=== PATIENT | female | born 1950 | race Caucasian/White ===

== ENCOUNTER → 2018-06-20 | Outpatient (CLI) | payer MEDICARE ==
--- NOTE | 2018-06-20 10:12 | Diagnostic Imaging Report ---
PROCEDURE: US Venous Lower Ext Forest. TECHNIQUE: Multiple real-time grayscale images were obtained over the lower extremities in various projections, bilaterally. Additional duplex Doppler and color Doppler images were also obtained. INDICATION: Pain and swelling FINDINGS: The common femoral, femoral, popliteal veins and tibial veins demonstrate normal response to compression, augmentation and Valsalva. There are no abnormal lower extremity fluid collections or masses. IMPRESSION: No evidence of deep venous thrombosis in either lower extremity. Dictated by: Dictated on workstation # [id number]
--- NOTE | 2018-07-16 18:08 | Diagnostic Imaging Report ---
The current study was also evaluated with a Computer Aided Detection (CAD) system. 3-D tomosynthesis was also performed and reviewed. INDICATION: Digital mammogram bilateral screening. This study was compared to the prior exams of 07/02/2017 and 06/27/2016. At this time, there are no current complaints. FINDINGS: The fibroglandular tissue in both breasts is heterogeneously dense. This does limit the sensitivity of this exam. The previous exams have noted postsurgical changes involving the left breast consistent with the patient's history of a prior lumpectomy. On this exam, the scar formation in the 12 o'clock position of the left breast and the coarse calcifications in this region seen previously are again evident and do not seem to have changed significantly. There is no evidence for recurrent malignancy in this region. There is no primary or secondary sign of malignancy noted otherwise. IMPRESSION: There is no evidence for malignancy. The postsurgical changes involving the left breast appear stable. ACR BI-RADS Category 1: Negative. Result letter will be mailed to the patient. Note: At least 10% of breast cancer is not imaged by mammography. Dictated by: Dictated on workstation # [id number]
== END ==
LOC: RAD 07:53
PROVIDERS: ATTEND Nurse Practitioner Primary Care
DX: Z12.31 Encounter for screening mammogram for malignant neoplasm of breast (principal); I83.813 Varicose veins of bilateral lower extremities with pain
CPT/HCPCS: 77067; 93970

== ENCOUNTER → 2018-07-15 | Outpatient (CLI) | payer MEDICARE ==
[~2018-07-15] MED LIST: IOHEXOL 350 MG/ML 100 ML (OMNIPAQUE 350) VIAL IV ONE; NS 250 ML (IVPB) BAG IV ONE
[2018-07-15 11:03] LABS: CALCIUM 8.6 MG/DL (8.5-10.1); CREATININE SERUM 1.11 MG/DL (0.60-1.30)
--- NOTE | 2018-07-15 12:35 | Diagnostic Imaging Report ---
PROCEDURE: CT chest and abdomen with contrast. TECHNIQUE: Multiple contiguous axial images were obtained through the chest and abdomen after the administration of intravenous contrast. INDICATION: Shortness of breath, productive cough, abdominal pain, nausea, vomiting and history of breast cancer. No prior examinations are available for comparison. FINDINGS: There is some minimal patchy left basilar atelectasis and/or pneumonitis. There is no pleural or pericardial fluid. There is no pneumothorax. There is no pathologically enlarged adenopathy in the chest. There is some displacement of the trachea to the right due to some vascular ectasia. Thoracic aorta is normal in caliber without evidence of dissection. There are no filling defects in the pulmonary arteries to suggest pulmonary embolism. There are mild degenerative changes in the spine. The liver is normal in size and without focal lesions. There is no biliary ductal dilatation. Gallbladder is unremarkable. Spleen is normal. The pancreas and adrenal glands are unremarkable. There are bilateral renal cysts. There is slightly more dense exophytic mass projecting off the lateral aspect of the left kidney. While this may be hemorrhagic cyst a solid mass cannot be excluded. The abdominal aorta is nonaneurysmal. Bowel gas pattern is nonspecific. There is no free air. There is no ascites. There are no focal inflammatory changes. IMPRESSION: Minimal left basilar atelectasis and/or pneumonitis. Slightly hyperdense mass projecting off the lateral aspect of the left kidney. This may be hemorrhagic cyst although a solid mass cannot be excluded. Further evaluation with renal ultrasound is recommended. There are additional bilateral renal cysts. No other acute abnormality in the chest or abdomen. Report was faxed/called to [facility] c/o Lola Benson by irene at 12:33 p.m. Dictated by: Dictated on workstation # [id number]
== END ==
LOC: LAB 09:58
PROVIDERS: ATTEND Nurse Practitioner Primary Care
DX: N28.1 Cyst of kidney, acquired (principal); J98.6 Disorders of diaphragm; N64.4 Mastodynia; R10.811 Right upper quadrant abdominal tenderness; R05 Cough; R11.2 Nausea with vomiting, unspecified; Z85.3 Personal history of malignant neoplasm of breast
CPT/HCPCS: 36415; 71260; 74160; 80048

== ENCOUNTER → 2018-07-21 | Outpatient (CLI) | payer MEDICARE ==
--- NOTE | 2018-07-21 17:42 | Diagnostic Imaging Report ---
PROCEDURE: US Renal Bilateral. TECHNIQUE: Multiple real-time grayscale images were obtained over the kidneys in various projections bilaterally. INDICATION: Abnormal CT of the kidneys. COMPARISON: 07/15/2018. FINDINGS: Right kidney measures 10.9 cm in length. There is anechoic cyst on the right that measures 1.9 x 1.5 x 1.4 cm. Cortical thickness and corticomedullary differentiation are maintained. There is no evidence of solid mass, calculus, nor hydronephrosis. Left kidney measures 10.2 cm in length. Benign-appearing cystic foci are also noted on the left and measure 1.4 x 1.7 x 1.8 cm and 2.4 x 1.6 cm. There is no distinct evidence of solid mass of the left kidney. There is no evidence of hydronephrosis or calculus. Note is made of thinning of the cortex suggestive of underlying atrophy. No ascites is seen. Limited views of the pelvis show [id number] urinary bladder distention. No distinct intraluminal filling defects are seen. Bilateral ureteral jets could not be demonstrated. IMPRESSION: 1. Cystic foci of the bilateral kidneys are noted and have a benign appearance on today's exam. 2. No sonographic evidence of solid mass on either side. 3. Mild cortical thinning of the left kidney. Correlation with underlying renal function tests is recommended, as findings can be seen with underlying atrophy. Dictated by: Dictated on workstation # [id number]
== END ==
LOC: RAD 16:02
PROVIDERS: ATTEND Nurse Practitioner Primary Care
DX: N28.1 Cyst of kidney, acquired (principal); N26.1 Atrophy of kidney (terminal); R93.422 Abnormal radiologic findings on diagnostic imaging of left kidney; R93.421 Abnormal radiologic findings on diagnostic imaging of right kidney
CPT/HCPCS: 76770

== ENCOUNTER → 2018-08-14 | Outpatient (CLI) | payer MEDICARE ==
--- NOTE | 2018-08-14 14:09 | Diagnostic Imaging Report ---
INDICATION: Left breast cancer. No prior studies are available for comparison. FINDINGS: Bone mineral analysis of the lumbar spine and both hips was performed. The bone mineral density of lumbar spine L2-L4 is 1.423 with a T score of 1.9. Bone mineral density of left femoral neck is 0.814 with a T score of -1.6. Bone mineral density of right femoral neck is 0.835 with a T score of -1.5. IMPRESSION: Normal bone mineral density of the lumbar spine with osteopenia of bilateral femoral necks. Dictated by: Dictated on workstation # [id number]
--- NOTE | 2018-08-14 19:59 | Diagnostic Imaging Report ---
INDICATION: Right breast pain and swelling. EXAMINATION: Sonographic interrogation of all four quadrants of the right breast as well as the retroareolar region and right axillary region was performed. FINDINGS: No sonographic abnormality is seen. No solid or cystic mass is detected. IMPRESSION: No sonographic abnormality is seen. Diagnostic mammography may be useful for further evaluation. ACR BI-RADS Category 1: Negative. Result letter will be mailed to the patient. Note: At least 10% of breast cancer is not imaged by mammography. Dictated by: Dictated on workstation # [id number]
--- NOTE | 2018-08-14 20:01 | Diagnostic Imaging Report ---
INDICATION: Right breast enlargement. Comparison is made with prior mammograms from 06/20/2018 and 07/02/2017. 2-D and 3-D unilateral right diagnostic mammography was performed with computer-aided detection (CAD) system. FINDINGS: Right breast remains heterogeneously dense, limiting the sensitivity of mammography. There are scattered benign-appearing parenchymal and vascular calcifications. No mass or malignant-appearing microcalcifications are seen. The right axilla is unremarkable. IMPRESSION: No mammographic features suspicious for malignancy are identified. Clinical follow-up is recommended. ACR BI-RADS Category 2: Benign findings. Result letter will be mailed to the patient. Note: At least 10% of breast cancer is not imaged by mammography. Dictated by: Dictated on workstation # [id number]
== END ==
LOC: RAD 08:30
PROVIDERS: ATTEND Nurse Practitioner Primary Care
DX: Z13.820 Encounter for screening for osteoporosis (principal); C50.912 Malignant neoplasm of unspecified site of left female breast; M85.89 Other specified disorders of bone density and structure, multiple sites; N62 Hypertrophy of breast
CPT/HCPCS: 76641; 77080

== ENCOUNTER 2018-08-21 12:53 | Outpatient (RCR) | payer MEDICARE ==
[2018-05-30 13:20] VITALS: BP 115/72
[2018-06-26] MEDS: CATHETER FLUSH 10 ML SYR IV PRN (11:00)
[2018-06-26] MEDS: HEParin (CENTRAL IV FLUSH) 500 UNIT/5 ML SYR IV PRN (11:00)
[2018-06-26 11:10] VITALS: BP 162/79
[2018-07-24 12:55] VITALS: BP 133/81
[~2018-08-21 12:53] MED LIST changes: +HEParin (CENTRAL IV FLUSH) 500 UNIT/5 ML SYR IV ONE; +HEParin (CENTRAL IV FLUSH) 500 UNIT/5 ML SYR ONE; -IOHEXOL 350 MG/ML 100 ML (OMNIPAQUE 350) VIAL IV ONE; -NS 250 ML (IVPB) BAG IV ONE
[2018-08-21] MEDS: HEParin (CENTRAL IV FLUSH) 500 UNIT/5 ML SYR IV PRN (13:10)
[2018-08-21] MEDS: CATHETER FLUSH 10 ML SYR IV PRN (13:10)
[2018-08-21 13:18] VITALS: BP 131/78
== END 2018-08-28 | disposition home or self-care (01) ==
LOC: SDC 12:53
PROVIDERS: ATTEND Nurse Practitioner Primary Care
DX: Z45.2 Encounter for adjustment and management of vascular access device (principal)
CPT/HCPCS: 96523

== ENCOUNTER → 2018-09-16 | Outpatient (CLI) | payer MEDICARE ==
--- NOTE | 2018-09-16 14:55 | Diagnostic Imaging Report ---
CLINICAL INDICATION: Patient has chronic thoracic spine pain. No previous thoracic spine surgeries. EXAM: MRI of the thoracic spine performed without IV contrast. Sequences include sagittal T2, sagittal T1, sagittal T2 fat-sat, and sagittal T2. COMPARISON: CT scan of the chest and abdomen with contrast dated 07/15/2018. Patient is noted to have a complicated exophytic areas involving left kidney on the prior study. FINDINGS: There is no acute thoracic spine fracture or dislocation. There is no significant bone marrow edema. There is an intraosseous hemangioma seen within the T8 vertebra. There are chronic Schmorl's nodes seen involving multiple levels of the mid and lower thoracic spine. There are degenerative spurs involving the thoracic spine and mild facet arthropathy. There is no significant bony central canal or neural foramen narrowing. There is minimal impression upon the thecal sac at the T10-T11 level due to a small posterior disc bulge and facet arthropathy. The thoracic spinal cord has normal caliber with no abnormal signal. There is no significant paraspinal soft tissue abnormality. There are multiple exophytic lesions involving both kidneys with one having low T2 signal involving the posterior upper left kidney and measures grossly 6 mm and may represent a complicated cyst. The other structures appear to represent cysts. IMPRESSION: 1: There is thoracic spine degenerative disease with no significant central canal or neural foramen narrowing. There is a small posterior disc bulge at the T10-T11 level. 2: Suspected complicated cyst involving the upper portion posteriorly involving the left kidney measuring 6 mm. Dictated by: Dictated on workstation # [id number]
== END ==
LOC: RAD 12:58
PROVIDERS: ATTEND Pain Medicine Interventional Pain Medicine
DX: M47.814 Spondylosis without myelopathy or radiculopathy, thoracic region (principal); M51.24 Other intervertebral disc displacement, thoracic region; M54.12 Radiculopathy, cervical region
CPT/HCPCS: 72146

== ENCOUNTER → 2018-11-11 | Outpatient (CLI) | payer MEDICARE ==
--- NOTE | 2018-11-11 12:29 | Diagnostic Imaging Report ---
EXAMINATION: Magnetic resonance imaging of the right shoulder without contrast. DATE: November 11, 2018. COMPARISON: None. HISTORY: 68-year-old female, right shoulder pain. TECHNIQUE: Magnetic Resonance Imaging sequences were performed of the shoulder without contrast. FINDINGS: ROTATOR CUFF, LIGAMENTS, TENDONS, AND MUSCLES: There are full-thickness full-width tears of both the supraspinatus and infraspinatus tendons with tendon retraction at least to the level of the glenoid. There is severe fatty atrophy of both the supraspinatus and infraspinatus muscles. The teres minor tendon is intact. There is severe subscapularis tendinopathy. LONG HEAD OF BICEPS: There is tendinopathy of the long head of biceps. The long head of biceps tendon is normally positioned within the bicipital groove. GLENOHUMERAL JOINT: The humeral head is superiorly subluxed. The humeral head is not anteriorly or posteriorly subluxed. The labrum is grossly intact. There is no identified paralabral cyst. The articular cartilage is grossly intact. There is no joint effusion. ACROMIOCLAVICULAR JOINT: The acromioclavicular joint is normally aligned. The coracoclavicular and coracoacromial ligaments are intact. There are no degenerative changes of the acromioclavicular joint. BONE: The bones all have normal configuration. The bone marrow signal is within normal limits. Specifically, negative for fracture, osteomyelitis, osteonecrosis, or marrow replacing process. BURSAE AND SOFT TISSUES: There is a very small amount of fluid within the subacromial/subdeltoid bursa. IMPRESSION: 1. Full-thickness full-width tears of the supraspinatus and infraspinatus tendons with tendon retraction at least to the level of the glenoid. Severe fatty atrophy of both the supraspinatus and infraspinatus muscles. Severe subscapularis tendinopathy. 2. Long head of biceps tendinopathy. 3. Intact acromioclavicular joint. 4. The humeral head is superiorly subluxed. No discretely identified labral tear. No glenohumeral joint effusion. 5. No acute fracture, bone contusion, or evidence of osteonecrosis. Dictated by: Dictated on workstation # [id number]
== END ==
LOC: RAD 09:21
PROVIDERS: ATTEND Orthopaedic Surgery Orthopaedic Surgery of the Spine
DX: S43.001A Unspecified subluxation of right shoulder joint, initial encounter (principal); M75.101 Unspecified rotator cuff tear or rupture of right shoulder, not specified as traumatic
CPT/HCPCS: 73221

== ENCOUNTER 2018-11-20 11:51 | Outpatient (RCR) | payer MEDICARE ==
[2018-10-28 12:20] LABS: BASOPHILS % (AUTO) 0 % (0-10); EOSINOPHILS # (AUTO) 0.3 10^3/uL (0.0-0.3); EOSINOPHILS % (AUTO) 3 % (0-10); HEMATOCRIT 42 % (35-52); HEMOGLOBIN 13.9 G/DL (11.5-16.0); LYMPHOCYTES % (AUTO) 22 % (12-44); MEAN CORPUSCULAR HEMOGLOBIN 30 PG (25-34); MEAN CORPUSCULAR HGB CONC 33 G/DL (32-36); MEAN CORPUSCULAR VOLUME 89 FL (80-99); MEAN PLATELET VOLUME 9.4 FL (7.4-10.4); MONOCYTES # (AUTO) 0.8 X 10^3 (0.0-1.0); MONOCYTES % (AUTO) 9 % (0-12); NEUTROPHILS % (AUTO) 66 % (42-75); PLATELET COUNT 381 10^3/uL (130-400); RED CELL DISTRIBUTION WIDTH 12.5 % (10.0-14.5); WHITE BLOOD COUNT 9.1 10^3/uL (4.3-11.0)
[2018-10-28 12:37] LABS: ALBUMIN 4.4 GM/DL (3.2-4.5); BILIRUBIN,TOTAL 0.4 MG/DL (0.1-1.0); CALCIUM 9.6 MG/DL (8.5-10.1); CREATININE SERUM 1.21 MG/DL (0.60-1.30); TOTAL PROTEIN 7.5 GM/DL (6.4-8.2)
[2018-11-27] MEDS ORDERED: PANT40TA3 PO (09:49)
[2018-11-27] MEDS ORDERED: FURO-124 PO (09:49)
[2018-11-27] MEDS ORDERED: TOPI50TA13 PO (09:49)
[2018-11-27] MEDS ORDERED: TOPI25TA10 PO (09:49)
[2018-11-27] MEDS ORDERED: LABE200T7 PO (09:49)
[2018-11-27] MEDS ORDERED: ONDN4T PO (09:49)
[2018-11-27] MEDS ORDERED: TRAM50TA2 PO (09:49)
[2018-11-27] MEDS ORDERED: GABA-488 PO (09:49)
[2018-11-27] MEDS ORDERED: ROPI0.5T2 PO ×2 (09:49)
[2018-11-27] MEDS ORDERED: CALC-867 PO (09:49)
[2018-11-27] MEDS ORDERED: ATOR80TA76 PO (09:49)
[2018-11-27] MEDS ORDERED: NF-GLIP2.5 PO (09:49)
[2018-11-27] MEDS ORDERED: BACL10TA PO (09:49)
[2018-11-27] MEDS ORDERED: AMLO10TA7 PO (09:49)
[2018-11-27] MEDS ORDERED: DULO30CA3 PO (09:49)
[2018-11-27] MEDS ORDERED: BUTA1TAB9 PO (10:11)
[2018-12-05] MEDS ORDERED: OXYC1TAB12 PO (16:46)
== END 2019-01-26 | disposition home or self-care (01) ==
LOC: LAB 11:51
PROVIDERS: ATTEND Nurse Practitioner Primary Care
DX: E11.22 Type 2 diabetes mellitus with diabetic chronic kidney disease (principal); N18.3 Chronic kidney disease, stage 3 (moderate); A08.4 Viral intestinal infection, unspecified; Z86.2 Personal history of diseases of the blood and blood-forming organs and certain disorders involving the immune mechanism
CPT/HCPCS: 36415; 80053; 83036; 85025; 87324; 87449

== ENCOUNTER → 2018-11-20 | Outpatient (CLI) | payer MEDICARE ==
[2018-11-20 12:41] LABS: MAGNESIUM 2.1 MG/DL (1.8-2.4)
== END ==
LOC: LAB 11:24
PROVIDERS: ATTEND Nurse Practitioner Primary Care
DX: G47.62 Sleep related leg cramps (principal); M25.50 Pain in unspecified joint; M19.90 Unspecified osteoarthritis, unspecified site
CPT/HCPCS: 36415; 83735; 85652; 86038; 86141; 86430

== ENCOUNTER → 2018-11-26 | Outpatient (CLI) | payer MEDICARE ==
[~2018-11-26] MED LIST changes: +AMLO10TA7 PO; +ATOR80TA76 PO; +BACL10TA PO; +BUTA1TAB9 PO; +CALC-867 PO; +DULO30CA3 PO; +FURO-124 PO; +GABA-488 PO; -HEParin (CENTRAL IV FLUSH) 500 UNIT/5 ML SYR IV ONE; -HEParin (CENTRAL IV FLUSH) 500 UNIT/5 ML SYR ONE; +LABE200T7 PO; +NF-GLIP2.5 PO; +ONDN4T PO; +PANT40TA3 PO; +ROPI0.5T2 PO; +TOPI25TA10 PO; +TOPI50TA13 PO; +TRAM50TA2 PO
--- NOTE | 2018-11-26 11:53 | Diagnostic Imaging Report ---
INDICATION: Dysphagia. Patient reports recent history of Zenker's diverticulum with surgery approximately one year ago. TECHNIQUE: The patient ingested effervescent crystals as well as thin and thick barium, and imaging of the esophagus was performed. COMPARISON: No prior imaging is available for comparison. FINDINGS: The preliminary realty loan specialist radiograph demonstrates the lungs to be clear. Right hemidiaphragm is elevated. A right chest wall port has its tip overlying the right atrium. Patient reports having some pain over the left chest. There is a questionable focus of minimal cortical interruption involving the left sixth posterior rib. There is a focal outpouching of the hypopharynx near the pharyngeal-esophageal junction that fills with contrast consistent with a Zenker's diverticulum. This appears to arise from the posterior wall. This is at the level of approximately C6-7. Moderate barium residue is seen within the diverticulum. No obstruction is identified. There is free flow of thin and thick barium into the esophagus. There are occasional tertiary contractions of the esophagus. No intrinsic or extrinsic mass is identified. No stricture is seen. No gastroesophageal reflux or hiatal hernia is demonstrated. IMPRESSION: 1. Zenker's diverticulum. 2. Mild generalized esophageal dysmotility. No esophageal mass or stricture is identified. 3. Questionable minimal cortical interruption involving left posterior sixth rib. If there is concern for rib fracture, dedicated rib radiographs would be useful for further evaluation. Dictated by: Dictated on workstation # [id number]
== END ==
LOC: RAD 09:46
PROVIDERS: ATTEND Nurse Practitioner Primary Care
DX: K22.5 Diverticulum of esophagus, acquired (principal); K22.4 Dyskinesia of esophagus; Z95.828 Presence of other vascular implants and grafts
CPT/HCPCS: 74220

== ENCOUNTER 2018-11-27 09:27 | Outpatient (CLI) | payer MEDICARE ==
[~2018-11-27] VITALS: Ht 162.6 cm; Wt 81.6 kg
[2018-11-27] MEDS ORDERED: TRAM50TA2 PO (09:49)
[2018-11-27] MEDS ORDERED: ATOR80TA76 PO (09:49)
[2018-11-27] MEDS ORDERED: TOPI50TA13 PO (09:49)
[2018-11-27] MEDS ORDERED: AMLO10TA7 PO (09:49)
[2018-11-27] MEDS ORDERED: BACL10TA PO (09:49)
[2018-11-27] MEDS ORDERED: LABE200T7 PO (09:49)
[2018-11-27] MEDS ORDERED: ROPI0.5T2 PO ×2 (09:49)
[2018-11-27] MEDS ORDERED: CALC-867 PO (09:49)
[2018-11-27] MEDS ORDERED: GABA-488 PO (09:49)
[2018-11-27] MEDS ORDERED: PANT40TA3 PO (09:49)
[2018-11-27] MEDS ORDERED: NF-GLIP2.5 PO (09:49)
[2018-11-27] MEDS ORDERED: DULO30CA3 PO (09:49)
[2018-11-27] MEDS ORDERED: TOPI25TA10 PO (09:49)
[2018-11-27] MEDS ORDERED: FURO-124 PO (09:49)
[2018-11-27] MEDS ORDERED: ONDN4T PO (09:49)
[2018-11-27] MEDS ORDERED: BUTA1TAB9 PO (10:11)
== END 2018-11-27 11:16 | disposition home or self-care (01) ==
LOC: PREOP 09:27
PROVIDERS: ATTEND Surgery
DX: Z01.818 Encounter for other preprocedural examination (principal)

== ENCOUNTER 2018-12-01 07:19 | Day surgery (SDC) | payer MEDICARE ==
[~2018-12-01] VITALS: Ht 162.6 cm; Wt 81.6 kg
[~2018-12-01 07:19] MED LIST changes: +BUP/EPI 0.5% 1:200,000 (SENSORCAINE) 30 ML VIAL ONE; +LIDOCAINE 1% INJ 20 ML 20 ML VIAL ONE
[2018-12-01] MEDS ORDERED: HEParin (CENTRAL IV FLUSH) 500 UNIT/5 ML SYR ONE (07:20)
[2018-12-01] MEDS ORDERED: 0.9% SODIUM CHLORIDE PF INJ 20 ML VIAL ONE (07:20)
--- OUTSIDE RECORDS SUMMARY | 2018-12-01 07:24 | XMS REPORT ---
Author Author BARRETT VILLANUEVA [facility] [address] Address [address] [place] [address] Care Team Providers Care Field Service Tech Name Role Phone BARRETT VILLANUEVA Unavailable PROBLEMS Type Condition ICD9-CM Code CIH95-IM Code Onset Dates Condition Status SNOMED Code Problem Lumbago with sciatica, left side M54.42 Active 105880243 Problem Type 2 diabetes mellitus with diabetic chronic kidney disease E11.22 Active 93356936 Problem Other chronic pain G89.29 Active 00243307 Problem Other specified disorders of bone density and structure, left thigh M85.852 Active 99155481 Problem Other specified disorders of bone density and structure, right thigh M85.851 Active 387179465 Problem Herpes labialis B00.1 Active 3401625 Problem Migraine with aura and without status migrainosus, not intractable G43.109 Active 0401929 Problem Chronic kidney disease, stage III (moderate) N18.3 Active 037967158 Problem Hx of iron deficiency anemia Z86.2 Active 520464863 Problem 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 Active 71486032 Problem Port-a-cath in place Z95.828 Active 084930400 ALLERGIES No Information ENCOUNTERS Encounter Location Date Diagnosis [facility] [id number] [place] [id number] Sep, Viral gastroenteritis A08.4 and Dehydration E86.0 [facility] [id number] [place] [address] 26680[address] 9423 Sep, [facility] [id number] [place] [address] 45607- 2081 Aug, [facility] [id number] [place] [address] 17600- 7693 Aug, [facility] [id number] [place] [address] 90444- 7989 Aug, Migraine with aura and without status migrainosus, not intractable G43.109 [facility] [id number] [place] [address] 60208- 6335 Aug, Viral upper respiratory tract infection J06.9 ; Lumbago with sciatica, left side M54.42 and Herpes labialis B00.1 [facility] [id number] [place] [address] 82684- 4073 Aug, [facility] [address] [address] Aug, Migraine with aura and without status migrainosus, not intractable G43.109 [facility] [id number] [place] [address] 86726- 7117 Aug, [facility] [address] [address] Jul, [facility] [id number] [place] [address] 18578- 4841 Jul, Breast pain, right N64.4 [facility] [id number] [place] [address] 80248- 4993 Jul, Pneumonitis J18.9 and Neck pain M54.2 [facility] [id number] [place] [address] 84782- 3600 Jul, [facility] [id number] [place] [address] 98955- 8472 Jul, [facility] [address] [address]- [address] Jul, Migraine with aura and without status migrainosus, not intractable G43.109 [facility] [id number] [place] [address] 66917- 5147 Jul, Breast pain, right N64.4 ; Pneumonitis J18.9 and Screening for osteoporosis Z13.820 [facility] [id number] [place] [address] 58417- 0554 Jun, [facility] [id number] [place] [address] 19138- 9052 Jun, [facility] [id number] [place] [address] 85400- 6897 Jun, [facility] [address] 44[address]- [address] Jun, [facility] [id number] [place] [address] 14317- 8099 Jun, [facility] [id number] [place] [address] 86382- 6901 Jun, Cough R05 ; Breast pain, right N64.4 ; Elevated hemidiaphragm J98.6 ; Right upper quadrant abdominal tenderness without rebound tenderness R10.811 ; Pneumonitis J18.9 and Renal cyst, left N28.1 [facility] [id number] [place] [address] 74552- 7691 Jun, Migraine with aura and without status migrainosus, not intractable G43.109 [facility] [id number] [place] [address] 33903- 4039 Jun, [facility] [id number] [place] [address] 42800- 5291 Jun, Migraine with aura and without status migrainosus, not intractable G43.109 and Lumbago with sciatica, left side M54.42 [facility] [id number] [place] [address] 70485- 6432 Jun, [facility] [id number] [place] [address] 80561- 0036 Jun, [facility] [id number] [place] [address] 43004- 5774 May, [facility] [id number] [address] May, Pain in right leg M79.604 ; Type 2 diabetes mellitus with diabetic chronic kidney disease E11.22 ; Pain of left leg M79.605 ; 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 ; Bruising T14.8XXA ; Hx of iron deficiency anemia Z86.2 ; Chronic kidney disease, stage III (moderate) N18.3 and Screening for breast cancer Z12.31 [place] [id number] [place] [address] 24217- 1805 May, Type 2 diabetes mellitus with diabetic chronic kidney disease E11.22 ; Hx of iron deficiency anemia Z86.2 ; Chronic kidney disease, stage III (moderate) N18.3 ; Lumbago with sciatica, left side M54.42 and Other chronic pain G89.29 [address] [address] May, [id number] [place] [address] 87207- 1004 Apr, Lumbago with sciatica, left side M54.42 ; Other chronic pain G89.29 and Peripheral edema R60.9 IMMUNIZATIONS No Known Immunizations SOCIAL HISTORY Never Assessed REASON FOR VISIT Vomiting/Diarrhea PLAN OF CARE VITAL SIGNS MEDICATIONS No Known Medications RESULTS No Results PROCEDURES No Known procedures INSTRUCTIONS MEDICATIONS ADMINISTERED No Known Medications MEDICAL (GENERAL) HISTORY Type Description Date Medical History diabetes Medical History htn Medical History aldo cath rt side Medical History CO Medical History hernia Medical History breast cancer Medical History cataracts Medical History esophageal varices Medical History Osteoarthritis Medical History fibromyalgia Medical History ductal carcinoma insitu Left breast 2007 Medical History DVT left arm (Picc line related) Medical History hyperlipidemia Medical History depression Medical History restless leg syndrome Medical History glaucoma Medical History Hepatitis A, age 14 Medical History hiatal hernia Surgical History back surgeries Surgical History Lt knee replacement 2011 Surgical History abdominal surgery/lacerated liver 2016 Surgical History neck surgery 11/2017 Surgical History RCA stent placed 12/2009 Surgical History Lumpectomy and radiation- ductal carcinoma insitu left breast 2007 Hospitalization History surgeries and childbirth
--- OUTSIDE RECORDS SUMMARY | 2018-12-01 07:24 | XMS REPORT ---
Author Author BARRETT VILLANUEVA [facility] Address [address] [place] [address] Care Team Providers Care Lap Polisher Name Role Phone BARRETT VILLANUEVA Unavailable PROBLEMS Type Condition ICD9-CM Code [id number] Code Onset Dates Condition Status SNOMED Code Problem Lumbago with sciatica, left side M54.42 Active 584437334 Problem Type 2 diabetes mellitus with diabetic chronic kidney disease E11.22 Active 47598534 Problem Other chronic pain G89.29 Active 50981331 Problem Other specified disorders of bone density and structure, left thigh M85.852 Active 09148890 Problem Other specified disorders of bone density and structure, right thigh M85.851 Active 470691337 Problem Herpes labialis B00.1 Active 0183347 Problem Migraine with aura and without status migrainosus, not intractable G43.109 Active 9539170 Problem Chronic kidney disease, stage III (moderate) N18.3 Active 397475738 Problem Hx of iron deficiency anemia Z86.2 Active 867303068 Problem 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 Active 44199028 Problem Port-a-cath in place Z95.828 Active 802995589 ALLERGIES No Information ENCOUNTERS Encounter Location Date Diagnosis [facility] [id number] [place] [address] 14655- 2560 Aug, Migraine with aura and without status migrainosus, not intractable G43.109 [facility] [address] [id number] [place] [address] 05838- 6144 Aug, Viral upper respiratory tract infection J06.9 ; Lumbago with sciatica, left side M54.42 and Herpes labialis B00.1 [facility] [address] [id number] [address] Aug, [facility] [address] [place] [address] 75458- 4840 Aug, Migraine with aura and without status migrainosus, not intractable G43.109 [facility] [id number] [place] [address] 66875- 2100 Aug, [facility] [id number] [place] [address] 20072- 1585 Jul, [facility] [id number] [place] [address] 49159- 5768 Jul, Breast pain, right N64.4 [facility] [address] 48433- 0341 Jul, Pneumonitis J18.9 and Neck pain M54.2 [facility] [id number] [place] [address] 72495- 0342 Jul, [facility] [id number] [place] [address] 44995- 5910 Jul, [facility] [id number] [place] [address] 04682- 1847 Jul, Migraine with aura and without status migrainosus, not intractable G43.109 [facility] [id number] [place] [address] 78679- 9153 Jul, Breast pain, right N64.4 ; Pneumonitis J18.9 and Screening for osteoporosis Z13.820 [facility] [id number] [place] [address] 37780- 3411 Jun, [facility] [id number] [place] [address] 24290- 6833 Jun, [facility] [id number] [place] [address] 66646- 1764 Jun, [facility] [id number] [place] [address] 47014- 4314 Jun, [place] [address] 71446- 1119 Jun, [place] [address] 59976- 2417 Jun, Cough R05 ; Breast pain, right N64.4 ; Elevated hemidiaphragm J98.6 ; Right upper quadrant abdominal tenderness without rebound tenderness R10.811 ; Pneumonitis J18.9 and Renal cyst, left N28.1 [place] [address] 75865- 7215 Jun, Migraine with aura and without status migrainosus, not intractable G43.109 [place] [address] 67514- 6572 Jun, [place] [address] 29704- 3084 Jun, Migraine with aura and without status migrainosus, not intractable G43.109 and Lumbago with sciatica, left side M54.42 [place] [address] 07573- 0642 12 Jun, 2018 [place] [address] 29868- 2179 04 Jun, 2018 [place] [address] 84516- 7530 May, [place] [address] 00337- 6982 27 May, 2018 Pain in right leg M79.604 ; Type 2 diabetes mellitus with diabetic chronic kidney disease E11.22 ; Pain of left leg M79.605 ; 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 ; Bruising T14.8XXA ; Hx of iron deficiency anemia Z86.2 ; Chronic kidney disease, stage III (moderate) N18.3 and Screening for breast cancer Z12.31 [place] [address] 24656- 7667 May, Type 2 diabetes mellitus with diabetic chronic kidney disease E11.22 ; Hx of iron deficiency anemia Z86.2 ; Chronic kidney disease, stage III (moderate) N18.3 ; Lumbago with sciatica, left side M54.42 and Other chronic pain G89.29 [facility] [address] [facility] [id number] [address] May, [facility] [address] [facility] [id number] [address] Apr, Lumbago with sciatica, left side M54.42 ; Other chronic pain G89.29 and Peripheral edema R60.9 IMMUNIZATIONS No Known Immunizations SOCIAL HISTORY Never Assessed REASON FOR VISIT refill PLAN OF CARE VITAL SIGNS MEDICATIONS Medication Instructions Dosage Frequency Start Date End Date Duration Status Khpcxmemxy-DRE-Vjlq-Codeine 02-355-11-30 MG Orally every 4 hrs 1 capsule as needed 4h Aug, Active Doxycycline Hyclate 100 MG Orally 2 times a day 1 capsule 12h Aug, 10 day(s) Active RESULTS No Results PROCEDURES No Known procedures INSTRUCTIONS MEDICATIONS ADMINISTERED No Known Medications MEDICAL (GENERAL) HISTORY Type Description Date Medical History diabetes Medical History htn Medical History aldo cath rt side Medical History [place] Medical History hernia Medical History breast cancer [...]
--- OUTSIDE RECORDS SUMMARY | 2018-12-01 07:24 | XMS REPORT ---
Author Author ISAAC CALDERON [facility] Address [address] [place] [address] Care Team Providers Care Agriculture Sales Account Manager Name Role Phone ISAAC CALDERON Unavailable PROBLEMS Type Condition ICD9-CM Code VAJ97-PI Code Onset Dates Condition Status SNOMED Code Problem Lumbago with sciatica, left side M54.42 Active 403321717 Problem Type 2 diabetes mellitus with diabetic chronic kidney disease E11.22 Active 38777890 Problem Other chronic pain G89.29 Active 54462499 Problem Other specified disorders of bone density and structure, left thigh M85.852 Active 92007885 Problem Other specified disorders of bone density and structure, right thigh M85.851 Active 415983789 Problem Herpes labialis B00.1 Active 3468784 Problem Migraine with aura and without status migrainosus, not intractable G43.109 Active 5044347 Problem Chronic kidney disease, stage III (moderate) N18.3 Active 434097748 Problem Hx of iron deficiency anemia Z86.2 Active 006308617 Problem 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 Active 47817322 Problem Port-a-cath in place Z95.828 Active 890946612 ALLERGIES Substance Reaction Event Type Date Status Compazine Unknown Drug Allergy Sep, Active Lexiscan foot pain Drug Allergy Sep, Active Soma rash Drug Allergy Sep, Active Plavix Unknown Drug Allergy Sep, Active Penicillin V Potassium rash Drug Allergy Sep, Active Isosorbide Mononitrate Unknown Drug Allergy Sep, Active Influenza Vac Typ A&B Surf Ant hives Drug Allergy Sep, Active Cephalexin Unknown Drug Allergy Sep, Active cephalosporins Unknown Non Drug Allergy Sep, Active toradol rash Non Drug Allergy Sep, Active ENCOUNTERS Encounter Location Date Diagnosis [facility] [address] [facility] [id number] [address] Sep, Viral gastroenteritis A08.4 and Dehydration E86.0 [facility] [address] [address]- [address]17 Sep, [facility] [address] [address]- 7284 Aug, [facility] [address] 51956- 6996 Aug, [facility] [address] 34591- 5366 Aug, Migraine with aura and without status migrainosus, not intractable G43.109 [place] [address] 02591- 9907 Aug, Viral upper respiratory tract infection J06.9 ; Lumbago with sciatica, left side M54.42 and Herpes labialis B00.1 [facility] [address] 01762- 6196 Aug, [facility] [address] 52997- 6491 Aug, Migraine with aura and without status migrainosus, not intractable G43.109 [facility] [address] 80065- 3399 Aug, [facility] [address] 16277- 2377 Jul, [facility] [address] [place] [id number] [place] [address] 84341- 8942 Jul, Breast pain, right N64.4 [facility] [address] 32556- 5816 Jul, Pneumonitis J18.9 and Neck pain M54.2 [facility] [address] 20623- 7435 Jul, [facility] [id number] [place] [address] 02028- 9094 15 Jul, 2018 [facility] [id number] [place] [address] 70655- 9678 Jul, Migraine with aura and without status migrainosus, not intractable G43.109 [facility] [id number] [place] [address] 54074- 2187 05 Jul, 2018 Breast pain, right N64.4 ; Pneumonitis J18.9 and Screening for osteoporosis Z13.820 [facility] [id number] [place] [address] 15894- 3648 Jun, [facility] [address] [place] [address] [id number] [place] [address] 22208- 6286 28 Jun, 2018 [facility] [id number] [place] [address] 60605- 9788 Jun, [facility] [address] [id number] [place] [address] 32600- 2209 Jun, [facility] [id number] [place] [address] 63391- 8763 Jun, [facility] [address] [id number] [place] [address] 12487- 9097 24 Jun, 2018 Cough R05 ; Breast pain, right N64.4 ; Elevated hemidiaphragm J98.6 ; Right upper quadrant abdominal tenderness without rebound tenderness R10.811 ; Pneumonitis J18.9 and Renal cyst, left N28.1 [facility] [id number] [place] [address] 31731- 2146 19 Jun, 2018 Migraine with aura and without status migrainosus, not intractable G43.109 [facility] [address] [id number] [place] [address] 23756- 8611 Jun, [facility] [address] [place] [address] [id number] [place] [address] 20639- 3221 Jun, Migraine with aura and without status migrainosus, not intractable G43.109 and Lumbago with sciatica, left side M54.42 [place] [address] [place] [id number] [place] [address] 19925- 8029 Jun, [place] [address] [place] [id number] [place] [address] 70960- 3230 Jun, [place] [address] [place] [id number] [place] [address] 43103- 1557 May, [place] [address] [place] [id number] [place] [address] 40682- 9822 May, Pain in right leg M79.604 ; Type 2 diabetes mellitus with diabetic chronic kidney disease E11.22 ; Pain of left leg M79.605 ; 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 ; Bruising T14.8XXA ; Hx of iron deficiency anemia Z86.2 ; Chronic kidney disease, stage III (moderate) N18.3 and Screening for breast cancer Z12.31 [place] [address] [place] [address] [id number] [place] [address] 97749- 4037 May, Type 2 diabetes mellitus with diabetic chronic kidney disease E11.22 ; Hx of iron deficiency anemia Z86.2 ; Chronic kidney disease, stage III (moderate) N18.3 ; Lumbago with sciatica, left side M54.42 and Other chronic pain G89.29 [place] [address] [place] [address] [id number] [place] [address] 09145- 4659 May, [place] [address] [place] [id number] [place] [address] 33198- 3367 Apr, Lumbago with sciatica, left side M54.42 ; Other chronic pain G89.29 and Peripheral edema R60.9 IMMUNIZATIONS Vaccine Route Administration Date Status PHENERGAN 50MG/ML OTH Other/Miscellaneous Sep 23, 2018 Administered SOCIAL HISTORY Never Assessed REASON FOR VISIT Nausea/vomiting/diarrhea since 09/18/18; light diet and fluids, but unable to keep anything in her system - SETH Lipscomb PLAN OF CARE Activity Details Follow Up prn Reason: Future/Pending Procedure IV INFUSION VITAL SIGNS Height 64 in 2018-09-23 Weight 177.4 lbs 2018-09-23 Temperature 98.3 degrees Fahrenheit 2018-09-23 Heart Rate 104 bpm 2018-09-23 Respiratory Rate 28 2018-09-23 BMI 30.45 kg/m2 2018-09-23 Blood pressure systolic 126 mmHg 2018-09-23 Blood pressure diastolic 96 mmHg 2018-09-23 MEDICATIONS Medication Instructions Dosage Frequency Start Date End Date Duration Status Venlafaxine HCl ER 75 MG Orally Once a day 1 capsule with food 24h Active GlipiZIDE 5 mg Orally Once a day 1/2 tablet 24h 90 days Active Tramadol HCl 50 mg Orally every 6 hrs 1-2 tablet 6h 28 days Active Baclofen 10 MG Orally Three times a day as needed for muscle spasms 1 tablet with food or milk Active Furosemide 40 MG Orally Once a day 1 tablet 24h Active Ondansetron HCl 4 MG Orally every 6 hr 1 tablet as needed Active ProAir HFA 108 (90 Base) MCG/ACT Inhalation every 6 hrs 2 puffs as needed 6h Jul, Active Atorvastatin Calcium 80 MG Orally Once a day at bedtime 1 tablet Active Zofran ODT 4 MG Orally every 4 hrs 1 tablet on the tongue and allow to dissolve 4h Sep, 5 days Active Folic Acid 1 MG Orally Once a day 1 tablet 24h Active Topiramate 50 mg Orally Once a day, in morning 1.5 tablet 90 days Active Lorazepam 0.5 MG Orally 2 times a day prn 1 tablet twice daily as needed Active Calcium 500 + D 500-125 MG-UNIT Orally Once a day 1 tablet 24h Active Amlodipine Besylate 10 MG Orally Once a day 1 tablet 24h Active Ropinirole HCl 0.5 MG Orally twice a day 1 tablet 12h Active Topiramate 25 mg Orally Once a day at HS 1 tablet Active Latanoprost 0.005 % Ophthalmic Once a day 1 drop into affected eye in the evening 24h Active Venlafaxine HCl ER 150 MG Orally Once a day 1 capsule with food 24h Jul 30 day(s) Active Labetalol HCl 200 MG Orally Three times a day 2 tablets 8h Active Neurontin 300 MG Orally Three times a day 1 capsule 8h Active Tktsbyrtpg-XIJ-Ahhl-Codeine 96-268-52-30 MG Orally every 4 hrs 1 capsule as needed 4h Aug, Active RESULTS No Results PROCEDURES Procedure Date Ordered Result Body Site HYDRATION IV INFUSION, INIT Sep 23, 2018 PHENERGAN 50MG/ML Sep 23, 2018 [facility] VISIT ESTABLISHED PATIENT Sep 23, 2018 THER/PROPH/DIAG INJ, SC/IM Sep 23, 2018 INSTRUCTIONS MEDICATIONS ADMINISTERED No Known Medications MEDICAL (GENERAL) HISTORY Type Description Date Medical History diabetes Medical History htn Medical History aldo cath rt side Medical History [place] Medical History hernia Medical History breast cancer [...]
--- OUTSIDE RECORDS SUMMARY | 2018-12-01 07:24 | XMS REPORT ---
Author Author KING DANITZA [facility] Address [address] [place] [address] Care Team Providers Care Glass Enamel Mixer Name Role Phone DANITZA BUCKLEY Unavailable PROBLEMS Type Condition ICD9-CM Code ZCK43-RV Code Onset Dates Condition Status SNOMED Code Problem Other specified disorders of bone density and structure, right thigh M85.851 Active 965863629 Problem Other chronic pain G89.29 Active 80152054 Problem Lumbago with sciatica, left side M54.42 Active 966826963 Problem Other specified disorders of bone density and structure, left thigh M85.852 Active 30732923 Problem Migraine with aura and without status migrainosus, not intractable G43.109 Active 7999437 Problem 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 Active 99303235 Problem Type 2 diabetes mellitus with diabetic chronic kidney disease E11.22 Active 19006685 Problem Chronic kidney disease, stage III (moderate) N18.3 Active 753863572 Problem Port-a-cath in place Z95.828 Active 985610711 Problem Hx of iron deficiency anemia Z86.2 Active 443257012 ALLERGIES No Information ENCOUNTERS Encounter Location Date Diagnosis [facility] [address] [place] [address] 55918- 2433 Aug, Migraine with aura and without status migrainosus, not intractable G43.109 [facility] [address] [address] Aug, [facility] [address] [place] [id number] [place] [address] 65974- 5851 Jul, [facility] [address] [place] [address] 97759- 2014 Jul, Breast pain, right N64.4 [facility] [address] [id number] [place] [address] 88368- 7827 Jul, Pneumonitis J18.9 and Neck pain M54.2 [facility] [address] 64232- 8811 17 Jul, 2018 [facility] [address] [id number] [place] [address] 04394- 2574 15 Jul, 2018 [facility] [address] 52200- 6758 Jul, Migraine with aura and without status migrainosus, not intractable G43.109 [facility] [address] 76757- 5766 05 Jul, 2018 Breast pain, right N64.4 ; Pneumonitis J18.9 and Screening for osteoporosis Z13.820 [facility] [address] [place] [id number] [place] [address] 48170- 4025 28 Jun, 2018 [facility] [address] 76705- 5744 28 Jun, 2018 [facility] [address] [id number] [place] [address] 47484- 2973 27 Jun, 2018 [facility] [id number] [place] [address] 13335- 7704 Jun, [facility] [address] [place] [id number] [place] [address] 48733- 3566 Jun, [facility] [address] 05533- 2334 24 Jun, 2018 Cough R05 ; Breast pain, right N64.4 ; Elevated hemidiaphragm J98.6 ; Right upper quadrant abdominal tenderness without rebound tenderness R10.811 ; Pneumonitis J18.9 and Renal cyst, left N28.1 [facility] [address] [place] [place] [id number] [place] [address] 47098- 2654 19 Jun, 2018 Migraine with aura and without status migrainosus, not intractable G43.109 [place] [address] [address]- 2472 Jun, [place] [address] [place] [id number] [place] [address] 00742- 0051 Jun, Migraine with aura and without status migrainosus, not intractable G43.109 and Lumbago with sciatica, left side M54.42 [place] [address] [place] [id number] [place] [address] 81874- 5388 Jun, [place] [address] [place] [id number] [place] [address] 37933- 8911 Jun, [place] [address] [place] [id number] [place] [address] 66362- 2308 May, [place] [address] [place] [id number] [place] [address] 24659- 2589 May, Pain in right leg M79.604 ; Type 2 diabetes mellitus with diabetic chronic kidney disease E11.22 ; Pain of left leg M79.605 ; 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 ; Bruising T14.8XXA ; Hx of iron deficiency anemia Z86.2 ; Chronic kidney disease, stage III (moderate) N18.3 and Screening for breast cancer Z12.31 [place] [address] [place] [address] 65540- 9473 May, Type 2 diabetes mellitus with diabetic chronic kidney disease E11.22 ; Hx of iron deficiency anemia Z86.2 ; Chronic kidney disease, stage III (moderate) N18.3 ; Lumbago with sciatica, left side M54.42 and Other chronic pain G89.29 [place] [address] [place] [id number] [place] [address] 72350- 7898 May, [place] [address] [place] [id number] [place] [address] 22744- 6304 Apr, Lumbago with sciatica, left side M54.42 ; Other chronic pain G89.29 and Peripheral edema R60.9 IMMUNIZATIONS No Known Immunizations SOCIAL HISTORY Never Assessed REASON FOR VISIT Controlled med PLAN OF CARE VITAL SIGNS MEDICATIONS Medication Instructions Dosage Frequency Start Date End Date Duration Status Lceignfinf-ALJU-Pduj-Cod 02-377-50-30 MG Orally every 4 hrs 1 capsule as needed 4h Active RESULTS No Results PROCEDURES No Known procedures INSTRUCTIONS MEDICATIONS ADMINISTERED No Known Medications MEDICAL (GENERAL) HISTORY Type Description Date Medical History diabetes Medical History htn Medical History aldo cath rt side Medical History [place] Medical History hernia Medical History breast cancer [...]
--- OUTSIDE RECORDS SUMMARY | 2018-12-01 07:24 | XMS REPORT ---
Author Author BARRETT VILLANUEVA [facility] Address [address] [place] [address] Care Team Providers Care Warehouse Packer Name Role Phone BARRETT VILLANUEVA Unavailable PROBLEMS Type Condition ICD9-CM Code HVD49-YD Code Onset Dates Condition Status SNOMED Code Problem Other specified disorders of bone density and structure, right thigh M85.851 Active 644672212 Problem Other chronic pain G89.29 Active 36753135 Problem Lumbago with sciatica, left side M54.42 Active 339902265 Problem Other specified disorders of bone density and structure, left thigh M85.852 Active 75420808 Problem Migraine with aura and without status migrainosus, not intractable G43.109 Active 6391310 Problem 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 Active 99629910 Problem Type 2 diabetes mellitus with diabetic chronic kidney disease E11.22 Active 84104558 Problem Chronic kidney disease, stage III (moderate) N18.3 Active 061870358 Problem Port-a-cath in place Z95.828 Active 481188379 Problem Hx of iron deficiency anemia Z86.2 Active 406683105 ALLERGIES No Information ENCOUNTERS Encounter Location Date Diagnosis [facility] [id number] [place] [address] 29376- 2098 Aug, Migraine with aura and without status migrainosus, not intractable G43.109 [facility] [address] [address] Aug, [facility] [id number] [place] [address] 09565- 0006 Jul, [facility] [id number] [place] [address] 14330- 1741 Jul, Breast pain, right N64.4 [facility] [id number] [place] [address] 81971- 4737 19 Jul, 2018 Pneumonitis J18.9 and Neck pain M54.2 [facility] [id number] [place] [address] 25615- 2209 17 Jul, 2018 [facility] [id number] [place] [address] 37767- 7776 Jul, [facility] [address] 84648- 6894 Jul, Migraine with aura and without status migrainosus, not intractable G43.109 [facility] [address] 10838- 6952 05 Jul, 2018 Breast pain, right N64.4 ; Pneumonitis J18.9 and Screening for osteoporosis Z13.820 [facility] [id number] [place] [address] 94700- 7873 28 Jun, 2018 [facility] [id number] [place] [address] 11161- 8522 28 Jun, 2018 [facility] [id number] [place] [address] 43933- 1746 27 Jun, 2018 [facility] [id number] [place] [address] 43089- 9028 Jun, [facility] [id number] [place] [address] 61052- 8237 Jun, [facility] [id number] [place] [address] 71799- 3722 24 Jun, 2018 Cough R05 ; Breast pain, right N64.4 ; Elevated hemidiaphragm J98.6 ; Right upper quadrant abdominal tenderness without rebound tenderness R10.811 ; Pneumonitis J18.9 and Renal cyst, left N28.1 [facility] [id number] [place] [address] 09862- 6497 19 Jun, 2018 Migraine with aura and without status migrainosus, not intractable G43.109 [facility] [address] [address] 6111 13 Jun, 2018 [facility] [id number] [place] [address] 98301- 0040 Jun, Migraine with aura and without status migrainosus, not intractable G43.109 and Lumbago with sciatica, left side M54.42 [facility] [id number] [place] [address] 91457- 4026 Jun, [facility] [id number] [place] [address] 03404- 6076 Jun, [facility] [facility] [id number] [place] [address] 30387- 7697 May, [facility] [facility] [id number] [place] [address] 02632- 8648 May, Pain in right leg M79.604 ; Type 2 diabetes mellitus with diabetic chronic kidney disease E11.22 ; Pain of left leg M79.605 ; 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 ; Bruising T14.8XXA ; Hx of iron deficiency anemia Z86.2 ; Chronic kidney disease, stage III (moderate) N18.3 and Screening for breast cancer Z12.31 [facility] [facility] [address] [place] [address] 91243- 3867 May, Type 2 diabetes mellitus with diabetic chronic kidney disease E11.22 ; Hx of iron deficiency anemia Z86.2 ; Chronic kidney disease, stage III (moderate) N18.3 ; Lumbago with sciatica, left side M54.42 and Other chronic pain G89.29 [facility] [facility] [address] [place] [address] 93581- 0053 May, [facility] [facility] [address] [place] [address] 65730- 6622 Apr, Lumbago with sciatica, left side M54.42 ; Other chronic pain G89.29 and Peripheral edema R60.9 IMMUNIZATIONS No Known Immunizations SOCIAL HISTORY Never Assessed REASON FOR VISIT request return call PLAN OF CARE VITAL SIGNS MEDICATIONS Unknown Medications RESULTS No Results PROCEDURES No Known procedures INSTRUCTIONS MEDICATIONS ADMINISTERED No Known Medications MEDICAL (GENERAL) HISTORY Type Description Date Medical History diabetes Medical History htn Medical History aldo cath rt side Medical History [place] Medical History hernia Medical History breast cancer [...]
--- OUTSIDE RECORDS SUMMARY | 2018-12-01 07:24 | XMS REPORT ---
Author Author BARRETT VILLANUEVA [facility] Address [address] [place] [address] Care Team Providers Care Heart Surgeon Name Role Phone BARRETT VILLANUEVA Unavailable PROBLEMS Type Condition ICD9-CM Code IFK85-UI Code Onset Dates Condition Status SNOMED Code Problem Lumbago with sciatica, left side M54.42 Active 949048342 Problem Type 2 diabetes mellitus with diabetic chronic kidney disease E11.22 Active 58490429 Problem Other chronic pain G89.29 Active 12002753 Problem Other specified disorders of bone density and structure, left thigh M85.852 Active 05841530 Problem Other specified disorders of bone density and structure, right thigh M85.851 Active 936417442 Problem Herpes labialis B00.1 Active 9400760 Problem Migraine with aura and without status migrainosus, not intractable G43.109 Active 1182813 Problem Chronic kidney disease, stage III (moderate) N18.3 Active 663462598 Problem Hx of iron deficiency anemia Z86.2 Active 879144789 Problem 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 Active 29788299 Problem Port-a-cath in place Z95.828 Active 482343434 ALLERGIES No Information ENCOUNTERS Encounter Location Date Diagnosis [facility] [address] [place] [address] 60295 -0696 Sep, Viral gastroenteritis A08.4 and Dehydration E86.0 [facility] [address] [place] [address] 98018- 7311 Sep, [facility] [id number] [place] [address] 92685- 1453 Aug, [facility] [id number] [place] [address] 74092- 8100 Aug, [facility] [id number] [place] [address] 22703- 6570 Aug, Migraine with aura and without status migrainosus, not intractable G43.109 [facility] [id number] [place] [address] 58768- 4219 Aug, Viral upper respiratory tract infection J06.9 ; Lumbago with sciatica, left side M54.42 and Herpes labialis B00.1 [facility] [id number] [place] [address] 27950- 9107 Aug, [facility] [address] 98854- 1086 Aug, Migraine with aura and without status migrainosus, not intractable G43.109 [facility] [id number] [place] [address] 90398- 5731 Aug, [facility] [address] 18866- 4469 Jul, [facility] [id number] [place] [address] 93637- 6106 Jul, Breast pain, right N64.4 [facility] [id number] [place] [address] 06922- 8776 Jul, Pneumonitis J18.9 and Neck pain M54.2 [facility] [id number] [place] [address] 23867- 3828 Jul, [facility] [id number] [place] [address] 90519- 1774 Jul, [facility] [address] 53825- 7078 Jul, Migraine with aura and without status migrainosus, not intractable G43.109 [facility] [id number] [place] [address] 50575- 2687 Jul, Breast pain, right N64.4 ; Pneumonitis J18.9 and Screening for osteoporosis Z13.820 [facility] [id number] [place] [address] 11929- 7932 Jun, [facility] [id number] [place] [address] 64903- 9837 Jun, [facility] [id number] [place] [address] 59334- 4095 Jun, [facility] [address] 22868- 7323 Jun, [facility] [id number] [place] [address] 32931- 9482 Jun, [facility] [id number] [place] [address] 25730- 4661 Jun, Cough R05 ; Breast pain, right N64.4 ; Elevated hemidiaphragm J98.6 ; Right upper quadrant abdominal tenderness without rebound tenderness R10.811 ; Pneumonitis J18.9 and Renal cyst, left N28.1 [facility] [id number] [place] [address] 54357- 9356 Jun, Migraine with aura and without status migrainosus, not intractable G43.109 [facility] [id number] [place] [address] 13172- 1124 Jun, [facility] [id number] [place] [address] 38090- 8273 Jun, Migraine with aura and without status migrainosus, not intractable G43.109 and Lumbago with sciatica, left side M54.42 [facility] [id number] [place] [address] 31487- 6629 Jun, [facility] [id number] [place] [address] 04687- 6767 Jun, [facility] [id number] [place] [address] 86708- 7746 May, [facility] [id number] [address]- 5875 May, Pain in right leg M79.604 ; Type 2 diabetes mellitus with diabetic chronic kidney disease E11.22 ; Pain of left leg M79.605 ; 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 ; Bruising T14.8XXA ; Hx of iron deficiency anemia Z86.2 ; Chronic kidney disease, stage III (moderate) N18.3 and Screening for breast cancer Z12.31 [place] [place] [address] [place] [address] 86227- 1973 May, Type 2 diabetes mellitus with diabetic chronic kidney disease E11.22 ; Hx of iron deficiency anemia Z86.2 ; Chronic kidney disease, stage III (moderate) N18.3 ; Lumbago with sciatica, left side M54.42 and Other chronic pain G89.29 [address] [place] [address] 77838- 7571 May, [address] [place] [address] 74599- 7842 Apr, Lumbago with sciatica, left side M54.42 ; Other chronic pain G89.29 and Peripheral edema R60.9 IMMUNIZATIONS No Known Immunizations SOCIAL HISTORY Never Assessed REASON FOR VISIT MRI Comparison PLAN OF CARE VITAL SIGNS MEDICATIONS Medication Instructions Dosage Frequency Start Date End Date Duration Status Ropinirole HCl 0.5 MG Orally twice a day 1 tablet 12h Active RESULTS No Results PROCEDURES No Known procedures INSTRUCTIONS MEDICATIONS ADMINISTERED No Known Medications MEDICAL (GENERAL) HISTORY Type Description Date Medical History diabetes Medical History htn Medical History aldo cath rt side Medical History [place] Medical History hernia Medical History breast cancer [...]
--- OUTSIDE RECORDS SUMMARY | 2018-12-01 07:24 | XMS REPORT ---
Author Author BARRETT VILLANUEVA [facility] Address [address] [place] [address] Care Team Providers Care Hotel Concierge Name Role Phone BARRETT VILLANUEVA Unavailable PROBLEMS Type Condition ICD9-CM Code EUR59-QB Code Onset Dates Condition Status SNOMED Code Problem Lumbago with sciatica, left side M54.42 Active 283773533 Problem Type 2 diabetes mellitus with diabetic chronic kidney disease E11.22 Active 12632880 Problem Other chronic pain G89.29 Active 28402608 Problem Other specified disorders of bone density and structure, left thigh M85.852 Active 59057704 Problem Other specified disorders of bone density and structure, right thigh M85.851 Active 335495535 Problem Herpes labialis B00.1 Active 4048870 Problem Migraine with aura and without status migrainosus, not intractable G43.109 Active 3419007 Problem Chronic kidney disease, stage III (moderate) N18.3 Active 429979280 Problem Hx of iron deficiency anemia Z86.2 Active 604043388 Problem 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 Active 27908090 Problem Port-a-cath in place Z95.828 Active 578456882 ALLERGIES No Information ENCOUNTERS Encounter Location Date Diagnosis [facility] [id number] [address]- 3601 Aug, [facility] [id number] [address]- 3296 Aug, Migraine with aura and without status migrainosus, not intractable G43.109 [facility] [id number] [address]- 0833 Aug, Viral upper respiratory tract infection J06.9 ; Lumbago with sciatica, left side M54.42 and Herpes labialis B00.1 [facility] [id number] [place] [address] 38671- 7658 Aug, [facility] [address] 53932- 5317 Aug, Migraine with aura and without status migrainosus, not intractable G43.109 [facility] [address] 01477- 9729 Aug, [facility] [address] 68215- 8304 Jul, [facility] [id number] [place] [address] 65046- 7017 Jul, Breast pain, right N64.4 [facility] [address] 37306- 0265 Jul, Pneumonitis J18.9 and Neck pain M54.2 [facility] [address] 12341- 2211 Jul, [facility] [id number] [place] [address] 92330- 4380 Jul, [facility] [id number] [place] [address] 25163- 4491 Jul, Migraine with aura and without status migrainosus, not intractable G43.109 [facility] [id number] [place] [address] 26753- 8279 Jul, Breast pain, right N64.4 ; Pneumonitis J18.9 and Screening for osteoporosis Z13.820 [facility] [id number] [place] [address] 12404- 8320 Jun, [facility] [address] 55869- 0107 Jun, [facility] [id number] [place] [address] 28432- 1620 Jun, [place] [place] [id number] [place] [address] 36803- 1698 Jun, [place] [facility] [address] 45101- 7346 Jun, [place] [address] 80966- 6350 Jun, Cough R05 ; Breast pain, right N64.4 ; Elevated hemidiaphragm J98.6 ; Right upper quadrant abdominal tenderness without rebound tenderness R10.811 ; Pneumonitis J18.9 and Renal cyst, left N28.1 [place] [address] 96820- 4181 Jun, Migraine with aura and without status migrainosus, not intractable G43.109 [place] [address] 07344- 9221 Jun, [place] [facility] [address] 56080- 6376 Jun, Migraine with aura and without status migrainosus, not intractable G43.109 and Lumbago with sciatica, left side M54.42 [place] [address] 11420- 3582 Jun, [place] [facility] [address] 35356- 6628 Jun, [place] [facility] [id number] [place] [address] 54570- 6014 May, [place] [facility] [id number] [place] [address] 14799- 4708 May, Pain in right leg M79.604 ; Type 2 diabetes mellitus with diabetic chronic kidney disease E11.22 ; Pain of left leg M79.605 ; 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 ; Bruising T14.8XXA ; Hx of iron deficiency anemia Z86.2 ; Chronic kidney disease, stage III (moderate) N18.3 and Screening for breast cancer Z12.31 [facility] [address] [facility] [id number] [address]- 9481 May, Type 2 diabetes mellitus with diabetic chronic kidney disease E11.22 ; Hx of iron deficiency anemia Z86.2 ; Chronic kidney disease, stage III (moderate) N18.3 ; Lumbago with sciatica, left side M54.42 and Other chronic pain G89.29 [place] [address] [facility] [id number] [address]- 9189 May, [place] [address] [facility] [id number] [address]- 0693 Apr, Lumbago with sciatica, left side M54.42 ; Other chronic pain G89.29 and Peripheral edema R60.9 IMMUNIZATIONS No Known Immunizations SOCIAL HISTORY Never Assessed REASON FOR VISIT PLAN OF CARE VITAL SIGNS MEDICATIONS Unknown Medications RESULTS No Results PROCEDURES No Known procedures INSTRUCTIONS MEDICATIONS ADMINISTERED No Known Medications MEDICAL (GENERAL) HISTORY Type Description Date Medical History diabetes Medical History htn Medical History aldo cath rt side Medical History [place] Medical History hernia Medical History breast cancer [...]
--- OUTSIDE RECORDS SUMMARY | 2018-12-01 07:24 | XMS REPORT ---
Author Author BARRETT VILLANUEVA [facility] Address [address] [place] [address] Care Team Providers Care Cpc Coder Name Role Phone BARRETT VILLANUEVA Unavailable PROBLEMS Type Condition ICD9-CM Code QAG70-BT Code Onset Dates Condition Status SNOMED Code Problem Lumbago with sciatica, left side M54.42 Active 168603103 Problem Type 2 diabetes mellitus with diabetic chronic kidney disease E11.22 Active 31831903 Problem Other chronic pain G89.29 Active 96107885 Problem Other specified disorders of bone density and structure, left thigh M85.852 Active 20423592 Problem Other specified disorders of bone density and structure, right thigh M85.851 Active 202298369 Problem Herpes labialis B00.1 Active 1439271 Problem Migraine with aura and without status migrainosus, not intractable G43.109 Active 6410902 Problem Chronic kidney disease, stage III (moderate) N18.3 Active 114050771 Problem Hx of iron deficiency anemia Z86.2 Active 662890370 Problem 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 Active 28546315 Problem Port-a-cath in place Z95.828 Active 580437076 ALLERGIES Substance Reaction Event Type Date Status Compazine Unknown Drug Allergy Aug, Active Lexiscan foot pain Drug Allergy Aug, Active Soma rash Drug Allergy Aug, Active Plavix Unknown Drug Allergy Aug, Active Penicillin V Potassium rash Drug Allergy Aug, Active Isosorbide Mononitrate Unknown Drug Allergy Aug, Active Influenza Vac Typ A&B Surf Ant hives Drug Allergy Aug, Active Cephalexin Unknown Drug Allergy Aug, Active cephalosporins Unknown Non Drug Allergy Aug, Active toradol rash Non Drug Allergy Aug, Active ENCOUNTERS Encounter Location Date Diagnosis [facility] [address] [facility] [id number] [address] Aug, Viral upper respiratory tract infection J06.9 ; Lumbago with sciatica, left side M54.42 and Herpes labialis B00.1 [facility] [id number] [place] [address] 10554- 2753 Aug, [facility] [id number] [place] [address] 38567- 5863 Aug, Migraine with aura and without status migrainosus, not intractable G43.109 [facility] [id number] [place] [address] 21813- 8399 Aug, [facility] [id number] [place] [address] 19621- 1160 Jul, [facility] [id number] [place] [address] 48502- 0508 Jul, Breast pain, right N64.4 [facility] [id number] [place] [address] 82452- 5010 Jul, Pneumonitis J18.9 and Neck pain M54.2 [facility] [id number] [place] [address] 46924- 6009 Jul, [facility] [id number] [place] [address] 59716- 1000 Jul, [facility] [id number] [place] [address] 33123- 0330 Jul, Migraine with aura and without status migrainosus, not intractable G43.109 [facility] [id number] [place] [address] 92329- 5495 Jul, Breast pain, right N64.4 ; Pneumonitis J18.9 and Screening for osteoporosis Z13.820 [facility] [id number] [place] [address] 23135- 1520 Jun, [facility] [id number] [place] [address] 21386- 0357 Jun, [place] [id number] [place] [address] 33318- 7783 Jun, [facility] [address] [address]- [address]327 Jun, [place] [id number] [place] [address] 77230- 4220 Jun, [place] [address] 88814- 5858 Jun, Cough R05 ; Breast pain, right N64.4 ; Elevated hemidiaphragm J98.6 ; Right upper quadrant abdominal tenderness without rebound tenderness R10.811 ; Pneumonitis J18.9 and Renal cyst, left N28.1 [place] [id number] [place] [address] 56648- 5232 Jun, Migraine with aura and without status migrainosus, not intractable G43.109 [place] [id number] [place] [address] 53436- 9045 Jun, [place] [id number] [place] [address] 22778- 8613 Jun, Migraine with aura and without status migrainosus, not intractable G43.109 and Lumbago with sciatica, left side M54.42 [place] [id number] [place] [address] 99750- 0617 Jun, [place] [id number] [place] [address] 96769- 5220 Jun, [place] [id number] [place] [address] 51255- 9141 May, [place] [id number] [place] [address] 64393- 9671 May, Pain in right leg M79.604 ; Type 2 diabetes mellitus with diabetic chronic kidney disease E11.22 ; Pain of left leg M79.605 ; 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 ; Bruising T14.8XXA ; Hx of iron deficiency anemia Z86.2 ; Chronic kidney disease, stage III (moderate) N18.3 and Screening for breast cancer Z12.31 [place] [address] [facility] [id number], [place] [address] May, Type 2 diabetes mellitus with diabetic chronic kidney disease E11.22 ; Hx of iron deficiency anemia Z86.2 ; Chronic kidney disease, stage III (moderate) N18.3 ; Lumbago with sciatica, left side M54.42 and Other chronic pain G89.29 [place] [address] [id number], [place] [address] May, [place] [address], [place] [address] Apr, Lumbago with sciatica, left side M54.42 ; Other chronic pain G89.29 and Peripheral edema R60.9 IMMUNIZATIONS No Known Immunizations SOCIAL HISTORY Never Assessed REASON FOR VISIT Congestion, left ear clogged, headache, body ache, nausea, weak, lips are broken out symptoms started on Saturday night. Yusuf ANN PLAN OF CARE Activity Details Follow Up if not improving or with pcp for regular fu Reason: VITAL SIGNS Height 64 in 2018-09-08 Weight 187.8 lbs 2018-09-08 Temperature 96.5 degrees Fahrenheit 2018-09-08 Heart Rate 99 bpm 2018-09-08 Respiratory Rate 20 2018-09-08 BMI 32.23 kg/m2 2018-09-08 Blood pressure systolic 118 mmHg 2018-09-08 Blood pressure diastolic 62 mmHg 2018-09-08 MEDICATIONS Medication Instructions Dosage Frequency Start Date End Date Duration Status Atorvastatin Calcium 80 MG Orally Once a day at bedtime 1 tablet Active Furosemide 40 MG Orally Once a day 1 tablet 24h Active Topiramate 25 mg Orally Once a day at HS 1 tablet Active Neurontin 300 MG Orally Three times a day 1 capsule 8h Active Latanoprost 0.005 % Ophthalmic Once a day 1 drop into affected eye in the evening 24h Active Baclofen 10 MG Orally Three times a day as needed for muscle spasms 1 tablet with food or milk Active Folic Acid 1 MG Orally Once a day 1 tablet 24h Active ProAir HFA 108 (90 Base) MCG/ACT Inhalation every 6 hrs 2 puffs as needed 6h 05 Jul, 2018 Active Venlafaxine HCl ER 150 MG Orally Once a day 1 capsule with food 24h Jul 30 day(s) Active Venlafaxine HCl ER 75 MG Orally Once a day 1 capsule with food 24h Active Ondansetron HCl 4 MG Orally every 6 hr 1 tablet as needed Active Topiramate 50 mg Orally Once a day, in morning 1.5 tablet 90 days Active Tramadol HCl 50 mg Orally every 6 hrs 1-2 tablet 6h 28 days Active Lorazepam 0.5 MG Orally 2 times a day prn 1 tablet twice daily as needed Active GlipiZIDE 5 mg Orally Once a day 1/2 tablet 24h 90 days Active Amlodipine Besylate 10 MG Orally Once a day 1 tablet 24h Active Tcdcfzstdx-LYVB-Ibvv-Cod 99-606-64-30 MG Orally every 4 hrs 1 capsule as needed 4h Active Labetalol HCl 200 MG Orally Three times a day 2 tablets 8h Active Ropinirole HCl 0.5 MG Orally twice a day 1 tablet 12h Active Calcium 500 + D 500-125 MG-UNIT Orally Once a day 1 tablet 24h Active RESULTS No Results PROCEDURES Procedure Date Ordered Result Body Site [facility] VISIT ESTABLISHED PATIENT Sep 08, 2018 INSTRUCTIONS MEDICATIONS ADMINISTERED No Known Medications MEDICAL (GENERAL) HISTORY Type Description Date Medical History diabetes Medical History htn Medical History aldo cath rt side Medical History [place] Medical History hernia Medical History breast cancer [...]
[2018-12-01 07:25] VITALS: BP 164/75
--- OUTSIDE RECORDS SUMMARY | 2018-12-01 07:25 | XMS REPORT ---
Author Author BARRETT VILLANUEVA [facility] Address [address] [place] [address] Care Team Providers Care Blood Bank Laboratory Technologist Name Role Phone BARRETT VILLANUEVA Unavailable PROBLEMS Type Condition ICD9-CM Code KXN09-HG Code Onset Dates Condition Status SNOMED Code Problem Other chronic pain G89.29 Active 37176013 Problem Lumbago with sciatica, left side M54.42 Active 148884760 Problem Migraine with aura and without status migrainosus, not intractable G43.109 Active 1792781 Problem 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 Active 18073046 Problem Hx of iron deficiency anemia Z86.2 Active 047963335 Problem Type 2 diabetes mellitus with diabetic chronic kidney disease E11.22 Active 28601189 Problem Port-a-cath in place Z95.828 Active 217368470 Problem Chronic kidney disease, stage III (moderate) N18.3 Active 869189630 ALLERGIES No Information ENCOUNTERS Encounter Location Date Diagnosis [facility] [id number] [place] [address] 98742- 2057 Jul, [facility] [id number] [place] [address] 37955- 6825 Jul, Breast pain, right N64.4 ; Pneumonitis J18.9 and Screening for osteoporosis Z13.820 [facility] [address] [place] [address] 58714- 4932 Jun, [facility] [id number] [place] [address] 76131- 3644 Jun, [facility] [id number] [place] [address] 31550- 3999 Jun, [facility] [id number] [place] [address] 64430- 6909 Jun, [place] [id number] [place] [address] 93437- 1993 Jun, [place] [address] 88569- 2226 Jun, Cough R05 ; Breast pain, right N64.4 ; Elevated hemidiaphragm J98.6 ; Right upper quadrant abdominal tenderness without rebound tenderness R10.811 ; Pneumonitis J18.9 and Renal cyst, left N28.1 [place] [id number] [place] [address] 17814- 7397 Jun, Migraine with aura and without status migrainosus, not intractable G43.109 [place] [id number] [place] [address] 52016- 0180 Jun, [place] [address] 12477- 8229 Jun, Migraine with aura and without status migrainosus, not intractable G43.109 and Lumbago with sciatica, left side M54.42 [place] [id number] [place] [address] 24230- 7614 12 Jun, 2018 [place] [id number] [place] [address] 81295- 7295 Jun, [place] [id number] [place] [address] 90589- 4097 May, [place] [id number] [place] [address] 26464- 1117 27 May, 2018 Pain in right leg M79.604 ; Type 2 diabetes mellitus with diabetic chronic kidney disease E11.22 ; Pain of left leg M79.605 ; 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 ; Bruising T14.8XXA ; Hx of iron deficiency anemia Z86.2 ; Chronic kidney disease, stage III (moderate) N18.3 and Screening for breast cancer Z12.31 [place] [address] [address] May, Type 2 diabetes mellitus with diabetic chronic kidney disease E11.22 ; Hx of iron deficiency anemia Z86.2 ; Chronic kidney disease, stage III (moderate) N18.3 ; Lumbago with sciatica, left side M54.42 and Other chronic pain G89.29 [place] [address] [facility] [id number] [place] [address]- 9884 May, [place] [address] [facility] [id number], [place] [address] Apr, Lumbago with sciatica, left side M54.42 ; Other chronic pain G89.29 and Peripheral edema R60.9 IMMUNIZATIONS No Known Immunizations SOCIAL HISTORY Never Assessed REASON FOR VISIT Requests return call PLAN OF CARE VITAL SIGNS MEDICATIONS Unknown Medications RESULTS No Results PROCEDURES No Known procedures INSTRUCTIONS MEDICATIONS ADMINISTERED No Known Medications MEDICAL (GENERAL) HISTORY Type Description Date Medical History diabetes Medical History htn Medical History aldo cath rt side Medical History [place] Medical History hernia Medical History breast cancer [...]
--- OUTSIDE RECORDS SUMMARY | 2018-12-01 07:25 | XMS REPORT ---
Author Author BARRETT VILLANUEVA [facility] Address [address] [place] [address] Care Team Providers Care Woodyard Operator Name Role Phone BARRETT VILLANUEVA Unavailable PROBLEMS Type Condition ICD9-CM Code IGL18-SG Code Onset Dates Condition Status SNOMED Code Problem Other chronic pain G89.29 Active 27446977 Problem Lumbago with sciatica, left side M54.42 Active 519151426 Problem Migraine with aura and without status migrainosus, not intractable G43.109 Active 2957151 Problem 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 Active 39468490 Problem Hx of iron deficiency anemia Z86.2 Active 904678516 Problem Type 2 diabetes mellitus with diabetic chronic kidney disease E11.22 Active 63423966 Problem Port-a-cath in place Z95.828 Active 734415656 Problem Chronic kidney disease, stage III (moderate) N18.3 Active 793063324 ALLERGIES No Information ENCOUNTERS Encounter Location Date Diagnosis [facility] [id number] [place] [address] 88777- 7753 Jul, [facility] [id number] [place] [address] 39030- 0245 Jul, Breast pain, right N64.4 ; Pneumonitis J18.9 and Screening for osteoporosis Z13.820 [facility] [address] [place] [address] 04888- 2350 Jun, [facility] [id number] [place] [address] 95641- 6187 Jun, [facility] [id number] [place] [address] 83456- 0875 Jun, [facility] [id number] [place] [address] 46162- 2244 Jun, [place] [id number] [place] [address] 11142- 4472 Jun, [place] [address] 02352- 2957 Jun, Cough R05 ; Breast pain, right N64.4 ; Elevated hemidiaphragm J98.6 ; Right upper quadrant abdominal tenderness without rebound tenderness R10.811 ; Pneumonitis J18.9 and Renal cyst, left N28.1 [place] [id number] [place] [address] 16510- 6117 Jun, Migraine with aura and without status migrainosus, not intractable G43.109 [place] [id number] [place] [address] 28319- 7951 Jun, [place] [address] 75485- 9748 Jun, Migraine with aura and without status migrainosus, not intractable G43.109 and Lumbago with sciatica, left side M54.42 [place] [id number] [place] [address] 31774- 5570 12 Jun, 2018 [place] [id number] [place] [address] 42080- 0099 Jun, [place] [id number] [place] [address] 91419- 2418 May, [place] [id number] [place] [address] 29962- 0722 27 May, 2018 Pain in right leg M79.604 ; Type 2 diabetes mellitus with diabetic chronic kidney disease E11.22 ; Pain of left leg M79.605 ; 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 ; Bruising T14.8XXA ; Hx of iron deficiency anemia Z86.2 ; Chronic kidney disease, stage III (moderate) N18.3 and Screening for breast cancer Z12.31 [place] [address] [address]- 2584 May, Type 2 diabetes mellitus with diabetic chronic kidney disease E11.22 ; Hx of iron deficiency anemia Z86.2 ; Chronic kidney disease, stage III (moderate) N18.3 ; Lumbago with sciatica, left side M54.42 and Other chronic pain G89.29 [place] [address] [facility] [id number], [place] [address]- [address] May, [place] [address] [facility] [id number], [place] [address]- 7112 Apr, Lumbago with sciatica, left side M54.42 ; Other chronic pain G89.29 and Peripheral edema R60.9 IMMUNIZATIONS No Known Immunizations SOCIAL HISTORY Never Assessed REASON FOR VISIT Medication question PLAN OF CARE VITAL SIGNS MEDICATIONS Unknown Medications RESULTS No Results PROCEDURES No Known procedures INSTRUCTIONS MEDICATIONS ADMINISTERED No Known Medications MEDICAL (GENERAL) HISTORY Type Description Date Medical History diabetes Medical History htn Medical History aldo cath rt side Medical History [place] Medical History hernia Medical History breast cancer [...]
--- OUTSIDE RECORDS SUMMARY | 2018-12-01 07:25 | XMS REPORT ---
Author Author BARRETT VILLANUEVA [facility] Address [address] [place] [address] Care Team Providers Care Fundraising Manager Name Role Phone BARRETT VILLANUEVA Unavailable PROBLEMS Type Condition ICD9-CM Code XOA99-RN Code Onset Dates Condition Status SNOMED Code Problem Other chronic pain G89.29 Active 22975997 Problem Lumbago with sciatica, left side M54.42 Active 701521678 Problem Migraine with aura and without status migrainosus, not intractable G43.109 Active 8501773 Problem 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 Active 83860845 Problem Hx of iron deficiency anemia Z86.2 Active 523339967 Problem Type 2 diabetes mellitus with diabetic chronic kidney disease E11.22 Active 56375483 Problem Port-a-cath in place Z95.828 Active 777688291 Problem Chronic kidney disease, stage III (moderate) N18.3 Active 033361657 ALLERGIES No Information ENCOUNTERS Encounter Location Date Diagnosis [facility] [place] [address] [address]- 6504 Aug, [facility] [place] [id number] [place] [address] 49327- 8340 Jul, [facility] [place] [address] 13494- 3524 Jul, Breast pain, right N64.4 [facility] [place] [address] 62609- 0955 Jul, Pneumonitis J18.9 and Neck pain M54.2 [facility] [place] [address] 74707- 4660 Jul, [facility] [place] [address] 28030- 9490 Jul, [facility] [place] [id number] [place] [address] 88038- 8472 Jul, Migraine with aura and without status migrainosus, not intractable G43.109 [facility] [place] [id number] [place] [address] 00033- 8012 05 Jul, 2018 Breast pain, right N64.4 ; Pneumonitis J18.9 and Screening for osteoporosis Z13.820 [facility] [place] [id number] [place] [address] 20267- 2249 Jun, [facility] [place] [id number] [place] [address] 76258- 6204 28 Jun, 2018 [facility] [place] [id number] [place] [address] 60583- 8235 Jun, [facility] [place] [id number] [place] [address] 08735- 9710 Jun, [facility] [place] [id number] [place] [address] 66022- 1550 Jun, [facility] [place] [id number] [place] [address] 15185- 8274 24 Jun, 2018 Cough R05 ; Breast pain, right N64.4 ; Elevated hemidiaphragm J98.6 ; Right upper quadrant abdominal tenderness without rebound tenderness R10.811 ; Pneumonitis J18.9 and Renal cyst, left N28.1 [facility] [place] [id number] [place] [address] 30134- 5444 19 Jun, 2018 Migraine with aura and without status migrainosus, not intractable G43.109 [facility] [place] [id number] [place] [address] 52925- 5721 Jun, [facility] [place] [id number] [place] [address] 72648- 0125 Jun, Migraine with aura and without status migrainosus, not intractable G43.109 and Lumbago with sciatica, left side M54.42 [place] [address], [place] [address]- 1459 Jun, [place] [id number] [place] [address] 47693- 2198 Jun, [place] [id number] [place] [address] 39972- 8864 May, [place] [id number] [place] [address] 36875- 7932 May, Pain in right leg M79.604 ; Type 2 diabetes mellitus with diabetic chronic kidney disease E11.22 ; Pain of left leg M79.605 ; 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 ; Bruising T14.8XXA ; Hx of iron deficiency anemia Z86.2 ; Chronic kidney disease, stage III (moderate) N18.3 and Screening for breast cancer Z12.31 [place] [id number] [place] [address] 74692- 4912 May, Type 2 diabetes mellitus with diabetic chronic kidney disease E11.22 ; Hx of iron deficiency anemia Z86.2 ; Chronic kidney disease, stage III (moderate) N18.3 ; Lumbago with sciatica, left side M54.42 and Other chronic pain G89.29 [place] [id number] [place] [address] 18583- 4609 May, [place] [id number] [place] [address] 60315- 7266 Apr, Lumbago with sciatica, left side M54.42 ; Other chronic pain G89.29 and Peripheral edema R60.9 IMMUNIZATIONS No Known Immunizations SOCIAL HISTORY Never Assessed REASON FOR VISIT Eye Exam PLAN OF CARE VITAL SIGNS MEDICATIONS Unknown Medications RESULTS No Results PROCEDURES No Known procedures INSTRUCTIONS MEDICATIONS ADMINISTERED No Known Medications MEDICAL (GENERAL) HISTORY Type Description Date Medical History diabetes Medical History htn Medical History aldo cath rt side Medical History [place] Medical History hernia Medical History breast cancer [...]
--- OUTSIDE RECORDS SUMMARY | 2018-12-01 07:25 | XMS REPORT ---
Author Author BARRETT VILALNUEVA [facility] Address [address] [place] [address] Care Team Providers Care Plastic Surgeon Name Role Phone BARRETT VILLANUEVA Unavailable PROBLEMS Type Condition ICD9-CM Code ZDA94-QS Code Onset Dates Condition Status SNOMED Code Problem Other chronic pain G89.29 Active 05314348 Problem Lumbago with sciatica, left side M54.42 Active 348867724 Problem Migraine with aura and without status migrainosus, not intractable G43.109 Active 2780925 Problem 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 Active 96953466 Problem Hx of iron deficiency anemia Z86.2 Active 332108893 Problem Type 2 diabetes mellitus with diabetic chronic kidney disease E11.22 Active 16850177 Problem Port-a-cath in place Z95.828 Active 905273144 Problem Chronic kidney disease, stage III (moderate) N18.3 Active 949247984 ALLERGIES No Information ENCOUNTERS Encounter Location Date Diagnosis [facility] [id number] [place] [address] 71224- 0380 Jul, [facility] [id number] [place] [address] 57209- 8468 Jul, Breast pain, right N64.4 ; Pneumonitis J18.9 and Screening for osteoporosis Z13.820 [facility] [id number] [place] [address] 63283- 7225 Jun, [facility] [id number] [place] [address] 97486- 1818 Jun, [facility] [id number] [place] [address] 22831- 8158 Jun, [facility] [id number] [place] [address] 36641- 6683 Jun, [place] [id number] [place] [address] 63309- 0836 Jun, [place] [address] [address]14- 3[address] Jun, Cough R05 ; Breast pain, right N64.4 ; Elevated hemidiaphragm J98.6 ; Right upper quadrant abdominal tenderness without rebound tenderness R10.811 ; Pneumonitis J18.9 and Renal cyst, left N28.1 [place] [id number] [place] [address] 83990- 1713 Jun, Migraine with aura and without status migrainosus, not intractable G43.109 [place] [id number] [place] [address] 70774- 4174 Jun, [place] [address] 50080- 1477 Jun, Migraine with aura and without status migrainosus, not intractable G43.109 and Lumbago with sciatica, left side M54.42 [place] [id number] [place] [address] 75234- 1871 12 Jun, 2018 [place] [id number] [place] [address] 77100- 1670 Jun, [place] [id number] [place] [address] 93343- 0959 May, [place] [id number] [place] [address] 85845- 8044 27 May, 2018 Pain in right leg M79.604 ; Type 2 diabetes mellitus with diabetic chronic kidney disease E11.22 ; Pain of left leg M79.605 ; 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 ; Bruising T14.8XXA ; Hx of iron deficiency anemia Z86.2 ; Chronic kidney disease, stage III (moderate) N18.3 and Screening for breast cancer Z12.31 [place] [address] [place] [address] May, Type 2 diabetes mellitus with diabetic chronic kidney disease E11.22 ; Hx of iron deficiency anemia Z86.2 ; Chronic kidney disease, stage III (moderate) N18.3 ; Lumbago with sciatica, left side M54.42 and Other chronic pain G89.29 [place] [address] [facility] [id number] [address] May, [place] [address] [facility] [id number], [place] [address] Apr, Lumbago with sciatica, left side M54.42 ; Other chronic pain G89.29 and Peripheral edema R60.9 IMMUNIZATIONS No Known Immunizations SOCIAL HISTORY Never Assessed [facility] CARE VITAL SIGNS MEDICATIONS Medication Instructions Dosage Frequency Start Date End Date Duration Status Venlafaxine HCl ER 75 MG Orally Once a day 1 capsule with food 24h Active Venlafaxine HCl ER 150 mg Orally Once a day 1 tablet 24h Active Lorazepam 0.5 MG Orally 2 times a day prn 1 tablet twice daily as needed Active RESULTS No Results PROCEDURES No Known procedures INSTRUCTIONS MEDICATIONS ADMINISTERED No Known Medications MEDICAL (GENERAL) HISTORY Type Description Date Medical History diabetes Medical History htn Medical History aldo cath rt side Medical History [place] Medical History hernia Medical History breast cancer [...]
--- OUTSIDE RECORDS SUMMARY | 2018-12-01 07:25 | XMS REPORT ---
Author Author BARRETT VILLANUEVA [facility] Address [address] [place] [address] Care Team Providers Care Associate School Psychologist Name Role Phone BARRETT VILLANUEVA Unavailable PROBLEMS Type Condition ICD9-CM Code PPR31-HH Code Onset Dates Condition Status SNOMED Code Problem Other chronic pain G89.29 Active 41806546 Problem Lumbago with sciatica, left side M54.42 Active 069537763 Problem Migraine with aura and without status migrainosus, not intractable G43.109 Active 2277335 Problem 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 Active 05121762 Problem Hx of iron deficiency anemia Z86.2 Active 516414937 Problem Type 2 diabetes mellitus with diabetic chronic kidney disease E11.22 Active 58649706 Problem Port-a-cath in place Z95.828 Active 893111867 Problem Chronic kidney disease, stage III (moderate) N18.3 Active 027443962 ALLERGIES No Information ENCOUNTERS Encounter Location Date Diagnosis [facility] [address] 65482- 9860 19 Jul, 2018 [place] [id number] [place] [address] 48868- 2898 Jul, [facility] [address] 9[address]53- [address] 12 Jul, 2018 Migraine with aura and without status migrainosus, not intractable G43.109 [facility] [address] 14651- 2626 05 Jul, 2018 Breast pain, right N64.4 ; Pneumonitis J18.9 and Screening for osteoporosis Z13.820 [place] [address] 59518- 9551 Jun, [facility] [id number] [place] [address] 53460- 5006 Jun, [facility] [id number] [place] [address] 03737- 2421 Jun, [facility] [id number] [place] [address] 32409- 5904 Jun, [facility] [address] 34168- 5920 Jun, [facility] [id number] [place] [address] 70888- 7604 Jun, Cough R05 ; Breast pain, right N64.4 ; Elevated hemidiaphragm J98.6 ; Right upper quadrant abdominal tenderness without rebound tenderness R10.811 ; Pneumonitis J18.9 and Renal cyst, left N28.1 [facility] [id number] [place] [address] 40047- 6266 Jun, Migraine with aura and without status migrainosus, not intractable G43.109 [facility] [id number] [place] [address] 82214- 2870 Jun, [facility] [id number] [place] [address] 76816- 5541 Jun, Migraine with aura and without status migrainosus, not intractable G43.109 and Lumbago with sciatica, left side M54.42 [facility] [id number] [place] [address] 98990- 5166 Jun, [facility] [id number] [place] [address] 49861- 9846 Jun, [facility] [id number] [place] [address] 93793- 7230 May, [facility] [id number] [place] [address] 50002- 8556 May, Pain in right leg M79.604 ; Type 2 diabetes mellitus with diabetic chronic kidney disease E11.22 ; Pain of left leg M79.605 ; 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 ; Bruising T14.8XXA ; Hx of iron deficiency anemia Z86.2 ; Chronic kidney disease, stage III (moderate) N18.3 and Screening for breast cancer Z12.31 [facility] [address], [place] [address] May, Type 2 diabetes mellitus with diabetic chronic kidney disease E11.22 ; Hx of iron deficiency anemia Z86.2 ; Chronic kidney disease, stage III (moderate) N18.3 ; Lumbago with sciatica, left side M54.42 and Other chronic pain G89.29 [place] [address] [place] [address] 53218- 0858 May, [place] [address] [place] [address] 23837- 8643 Apr, Lumbago with sciatica, left side M54.42 ; Other chronic pain G89.29 and Peripheral edema R60.9 IMMUNIZATIONS No Known Immunizations SOCIAL HISTORY Never Assessed REASON FOR VISIT switch rx PLAN OF CARE VITAL SIGNS MEDICATIONS Medication Instructions Dosage Frequency Start Date End Date Duration Status Venlafaxine HCl ER 150 MG Orally Once a day 1 capsule with food 24h Jul 30 day(s) Active RESULTS No Results PROCEDURES No Known procedures INSTRUCTIONS MEDICATIONS ADMINISTERED No Known Medications MEDICAL (GENERAL) HISTORY Type Description Date Medical History diabetes Medical History htn Medical History aldo cath rt side Medical History [place] Medical History hernia Medical History breast cancer [...]
--- OUTSIDE RECORDS SUMMARY | 2018-12-01 07:25 | XMS REPORT ---
Author Author BARRETT VILLANUEVA [facility] Address [address] [place] [address] Care Team Providers Care Air Defence Officer Name Role Phone BARRETT VILLANUEVA Unavailable PROBLEMS Type Condition ICD9-CM Code JWI72-MA Code Onset Dates Condition Status SNOMED Code Problem Other chronic pain G89.29 Active 70659454 Problem Lumbago with sciatica, left side M54.42 Active 943359529 Problem Migraine with aura and without status migrainosus, not intractable G43.109 Active 1199038 Problem 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 Active 12627702 Problem Hx of iron deficiency anemia Z86.2 Active 788066182 Problem Type 2 diabetes mellitus with diabetic chronic kidney disease E11.22 Active 31799775 Problem Port-a-cath in place Z95.828 Active 325650355 Problem Chronic kidney disease, stage III (moderate) N18.3 Active 064472484 ALLERGIES No Information ENCOUNTERS Encounter Location Date Diagnosis [facility] [address] [address]- [address]49 19 Jul, 2018 [place] [id number] [place] [address] 66022- 8865 Jul, [facility] [address] 50289- 6294 12 Jul, 2018 Migraine with aura and without status migrainosus, not intractable G43.109 [facility] [address] 44957- 4753 05 Jul, 2018 Breast pain, right N64.4 ; Pneumonitis J18.9 and Screening for osteoporosis Z13.820 [place] [address] 82060- 6484 Jun, [facility] [id number] [place] [address] 24328- 3413 Jun, [facility] [id number] [place] [address] 23351- 0590 Jun, [facility] [id number] [place] [address] 07152- 6078 Jun, [facility] [address] 19145- 8577 Jun, [facility] [id number] [place] [address] 29812- 9615 Jun, Cough R05 ; Breast pain, right N64.4 ; Elevated hemidiaphragm J98.6 ; Right upper quadrant abdominal tenderness without rebound tenderness R10.811 ; Pneumonitis J18.9 and Renal cyst, left N28.1 [facility] [id number] [place] [address] 59227- 7895 Jun, Migraine with aura and without status migrainosus, not intractable G43.109 [facility] [id number] [place] [address] 68692- 9332 Jun, [facility] [id number] [place] [address] 64412- 3489 Jun, Migraine with aura and without status migrainosus, not intractable G43.109 and Lumbago with sciatica, left side M54.42 [facility] [id number] [place] [address] 83005- 4625 Jun, [facility] [id number] [place] [address] 38280- 1392 Jun, [facility] [id number] [place] [address] 12742- 7704 May, [facility] [id number] [place] [address] 09584- 8454 May, Pain in right leg M79.604 ; Type 2 diabetes mellitus with diabetic chronic kidney disease E11.22 ; Pain of left leg M79.605 ; 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 ; Bruising T14.8XXA ; Hx of iron deficiency anemia Z86.2 ; Chronic kidney disease, stage III (moderate) N18.3 and Screening for breast cancer Z12.31 [place] [address] [address]- 08[address] May, Type 2 diabetes mellitus with diabetic chronic kidney disease E11.22 ; Hx of iron deficiency anemia Z86.2 ; Chronic kidney disease, stage III (moderate) N18.3 ; Lumbago with sciatica, left side M54.42 and Other chronic pain G89.29 [place] [address] [place] [address] 23597- 4530 May, [place] [id number] [place] [address] 00427- 2926 Apr, Lumbago with sciatica, left side M54.42 ; Other chronic pain G89.29 and Peripheral edema R60.9 IMMUNIZATIONS No Known Immunizations SOCIAL HISTORY Never Assessed REASON FOR VISIT requesting return call PLAN OF CARE VITAL SIGNS MEDICATIONS Medication Instructions Dosage Frequency Start Date End Date Duration Status Chnowwepwk-UAXP-Bsqx-Cod 98-012-67-30 MG Orally every 4 hrs 1 capsule [...]
--- OUTSIDE RECORDS SUMMARY | 2018-12-01 07:25 | XMS REPORT ---
Author Author BARRETT VILLANUEVA [facility] Address [address] [place] [address] Care Team Providers Care Final Dressing Cutter Name Role Phone BARRETT VILLANUEVA Unavailable PROBLEMS Type Condition ICD9-CM Code SSD51-HC Code Onset Dates Condition Status SNOMED Code Problem Other chronic pain G89.29 Active 52802647 Problem Lumbago with sciatica, left side M54.42 Active 962915280 Problem Migraine with aura and without status migrainosus, not intractable G43.109 Active 8394524 Problem 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 Active 98615557 Problem Hx of iron deficiency anemia Z86.2 Active 520243295 Problem Type 2 diabetes mellitus with diabetic chronic kidney disease E11.22 Active 95157450 Problem Port-a-cath in place Z95.828 Active 625982444 Problem Chronic kidney disease, stage III (moderate) N18.3 Active 060184105 ALLERGIES Substance Reaction Event Type Date Status Compazine Unknown Drug Allergy Jun, Active Lexiscan foot pain Drug Allergy Jun, Active Soma rash Drug Allergy Jun, Active Plavix Unknown Drug Allergy Jun, Active Penicillin V Potassium rash Drug Allergy Jun, Active Isosorbide Mononitrate Unknown Drug Allergy Jun, Active Influenza Vac Typ A&B Surf Ant hives Drug Allergy Jun, Active Cephalexin Unknown Drug Allergy Jun, Active cephalosporins Unknown Non Drug Allergy Jun, Active toradol rash Non Drug Allergy Jun, Active ENCOUNTERS Encounter Location Date Diagnosis [facility] [address] [facility] [id number] [address] Jul, [facility] [address] [facility] [id number] [address]- 7616 Jul, Breast pain, right N64.4 ; Pneumonitis J18.9 and Screening for osteoporosis Z13.820 [facility] [address] [address]- 1691 Jun, [facility] [id number] [place] [address] 03163- 4303 Jun, [facility] [address] [place] [address] 35791- 1142 Jun, [facility] [id number] [place] [address] 68836- 8832 Jun, [facility] [id number] [place] [address] 23209- 6037 Jun, [facility] [id number] [place] [address] 77027- 3273 Jun, Cough R05 ; Breast pain, right N64.4 ; Elevated hemidiaphragm J98.6 ; Right upper quadrant abdominal tenderness without rebound tenderness R10.811 ; Pneumonitis J18.9 and Renal cyst, left N28.1 [facility] [id number] [place] [address] 04621- 3116 Jun, Migraine with aura and without status migrainosus, not intractable G43.109 [facility] [address] [place] [address] 73226- 9304 Jun, [facility] [address] [place] [address] 39549- 7612 Jun, Migraine with aura and without status migrainosus, not intractable G43.109 and Lumbago with sciatica, left side M54.42 [facility] [id number] [place] [address] 48946- 1808 Jun, [facility] [id number] [place] [address] 36777- 0570 Jun, [facility] [address] [place] [address] 18120- 0071 May, [facility] [id number] [address]- 0950 May, Pain in right leg M79.604 ; Type 2 diabetes mellitus with diabetic chronic kidney disease E11.22 ; Pain of left leg M79.605 ; 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 ; Bruising T14.8XXA ; Hx of iron deficiency anemia Z86.2 ; Chronic kidney disease, stage III (moderate) N18.3 and Screening for breast cancer Z12.31 [place] [address] [place] [address] 36290- 0826 May, Type 2 diabetes mellitus with diabetic chronic kidney disease E11.22 ; Hx of iron deficiency anemia Z86.2 ; Chronic kidney disease, stage III (moderate) N18.3 ; Lumbago with sciatica, left side M54.42 and Other chronic pain G89.29 [address] [place] [address] 59667- 1842 May, [place] [address] [place] [address] 53460- 5012 Apr, Lumbago with sciatica, left side M54.42 ; Other chronic pain G89.29 and Peripheral edema R60.9 IMMUNIZATIONS No Known Immunizations SOCIAL HISTORY Never Assessed REASON FOR VISIT (acute) RT breast pain and swelling 2 weeks. Pt has hx of breast cancer in 2007 SETH Mcdaniel PLAN OF CARE Activity Details Follow Up 1 Week Reason: VITAL SIGNS Height 64 in 2018-07-14 Weight 185.0 lbs 2018-07-14 Temperature 98.3 degrees Fahrenheit 2018-07-14 Heart Rate 87 bpm 2018-07-14 Respiratory Rate 20 2018-07-14 BMI 31.75 kg/m2 2018-07-14 Blood pressure systolic 140 mmHg 2018-07-14 Blood pressure diastolic 67 mmHg 2018-07-14 MEDICATIONS Medication Instructions Dosage Frequency Start Date End Date Duration Status Folic Acid 1 MG Orally Once a day 1 tablet 24h Active Baclofen 10 MG Orally Three times a day as needed for muscle spasms 1 tablet with food or milk Active Amlodipine Besylate 10 MG Orally Once a day 1 tablet 24h Active Ondansetron HCl 4 MG Orally every 6 hr 1 tablet as needed Active Ikajzmauhn-MCEF-Pgey-Cod 13-740-23-30 MG Orally every 4 hrs 1 capsule as needed 4h 19 Jul, 2018 28 days Active Venlafaxine HCl ER 75 MG Orally Once a day 1 capsule with food 24h Active GlipiZIDE 5 mg Orally Once a day 1/2 tablet 24h 90 days Active Latanoprost 0.005 % Ophthalmic Once a day 1 drop into affected eye in the evening 24h Active Tramadol HCl Active Ropinirole HCl 0.5 MG Orally twice a day 1 tablet 12h Active Venlafaxine HCl ER 150 MG Orally Once a day 1 tablet with food 24h Active Labetalol HCl 200 MG Orally Three times a day 2 tablets 8h Active Topiramate 25 mg Orally Once a day at HS 1 tablet Active Neurontin 300 MG Orally Three times a day 1 capsule 8h Active Furosemide 40 MG Orally Once a day 1 tablet 24h Active Azithromycin 250 MG Orally Once a day as directed 24h Jun,Jun 5 day(s) Active Atorvastatin Calcium 80 MG Orally Once a day at bedtime 1 tablet Active Topiramate 50 mg Orally Once a day, in morning 1.5 tablet 90 days Active Lorazepam 0.5 MG Orally 2 times a day prn 1 tablet twice daily as needed Active RESULTS Name Result Date Reference Range Xray : Chest 2 View (IN HOUSE) 2018-07-14 CT Scan : Abd & Chest w/ IV Contrast 2018-07-15 Ultrasound : Kidneys 2018 PROCEDURES Procedure Date Ordered Result Body Site X-RAY EXAM CHEST 2 VIEWS Jul 14, 2018 [facility] VISIT ESTABLISHED PATIENT Jul 14, 2018 INSTRUCTIONS MEDICATIONS ADMINISTERED No Known Medications MEDICAL (GENERAL) HISTORY Type Description Date Medical History diabetes Medical History htn Medical History aldo cath rt side Medical History [place] Medical History hernia Medical History breast cancer [...]
--- OUTSIDE RECORDS SUMMARY | 2018-12-01 07:25 | XMS REPORT ---
Author Author BARRETT VILLANUEVA [facility] Address [address] [place] [address] Care Team Providers Care Bleach Chlorinator Name Role Phone BARRETT VILLANUEVA Unavailable PROBLEMS Type Condition ICD9-CM Code MNQ37-QX Code Onset Dates Condition Status SNOMED Code Problem Other chronic pain G89.29 Active 40805877 Problem Lumbago with sciatica, left side M54.42 Active 344907764 Problem Migraine with aura and without status migrainosus, not intractable G43.109 Active 0853088 Problem 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 Active 04225686 Problem Hx of iron deficiency anemia Z86.2 Active 084357150 Problem Type 2 diabetes mellitus with diabetic chronic kidney disease E11.22 Active 01254663 Problem Port-a-cath in place Z95.828 Active 604837651 Problem Chronic kidney disease, stage III (moderate) N18.3 Active [id number] ALLERGIES No Information ENCOUNTERS Encounter Location Date Diagnosis [facility] [address] [address] Aug, [facility] [id number] [place] [address] 06539- 1205 Jul, [facility] [address] [address]- [address] Jul, Breast pain, right N64.4 [facility] [address] [address]- [address]31 Jul, Pneumonitis J18.9 and Neck pain M54.2 [facility] [address] [address]- 0365 Jul, [facility] [address] 93902- 8833 Jul, [facility] [id number] [place] [address] 07788- 3010 Jul, Migraine with aura and without status migrainosus, not intractable G43.109 [facility] [id number] [place] [address] 13294- 3714 05 Jul, 2018 Breast pain, right N64.4 ; Pneumonitis J18.9 and Screening for osteoporosis Z13.820 [facility] [id number] [place] [address] 16304- 0658 Jun, [facility] [id number] [place] [address] 17372- 0197 28 Jun, 2018 [facility] [id number] [place] [address] 11710- 3130 Jun, [facility] [id number] [place] [address] 30831- 7437 Jun, [facility] [id number] [place] [address] 36180- 8436 Jun, [facility] [id number] [place] [address] 97362- 8439 24 Jun, 2018 Cough R05 ; Breast pain, right N64.4 ; Elevated hemidiaphragm J98.6 ; Right upper quadrant abdominal tenderness without rebound tenderness R10.811 ; Pneumonitis J18.9 and Renal cyst, left N28.1 [facility] [id number] [place] [address] 51033- 5905 19 Jun, 2018 Migraine with aura and without status migrainosus, not intractable G43.109 [facility] [id number] [place] [address] 95780- 0476 Jun, [facility] [id number] [place] [address] 71141- 3757 Jun, Migraine with aura and without status migrainosus, not intractable G43.109 and Lumbago with sciatica, left side M54.42 [place] [address] [address] Jun, [place] [id number] [place] [address] 46258- 0586 Jun, [place] [id number] [place] [address] 72700- 2547 May, [place] [id number] [place] [address] 24184- 3864 May, Pain in right leg M79.604 ; Type 2 diabetes mellitus with diabetic chronic kidney disease E11.22 ; Pain of left leg M79.605 ; 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 ; Bruising T14.8XXA ; Hx of iron deficiency anemia Z86.2 ; Chronic kidney disease, stage III (moderate) N18.3 and Screening for breast cancer Z12.31 [place] [id number] [place] [address] 73436- 4667 May, Type 2 diabetes mellitus with diabetic chronic kidney disease E11.22 ; Hx of iron deficiency anemia Z86.2 ; Chronic kidney disease, stage III (moderate) N18.3 ; Lumbago with sciatica, left side M54.42 and Other chronic pain G89.29 [place] [id number] [place] [address] 03901- 4089 May, [place] [id number] [place] [address] 69433- 0966 Apr, Lumbago with sciatica, left side M54.42 ; Other chronic pain G89.29 and Peripheral edema R60.9 IMMUNIZATIONS No Known Immunizations SOCIAL HISTORY Never Assessed REASON FOR VISIT Corrected mammo order PLAN OF CARE VITAL SIGNS MEDICATIONS Unknown Medications RESULTS No Results PROCEDURES No Known procedures INSTRUCTIONS MEDICATIONS ADMINISTERED No Known Medications MEDICAL (GENERAL) HISTORY Type Description Date Medical History diabetes Medical History htn Medical History aldo cath rt side Medical History [place] Medical History hernia Medical History breast cancer [...]
--- OUTSIDE RECORDS SUMMARY | 2018-12-01 07:26 | XMS REPORT ---
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 Active 54971614 Problem Hx of iron deficiency anemia Z86.2 Active 944047697 Problem Type 2 diabetes mellitus with diabetic chronic kidney disease E11.22 Active 35766418 Problem Port-a-cath in place Z95.828 Active 836580167 Problem Chronic kidney disease, stage III (moderate) N18.3 Active 411132697 ALLERGIES No Information ENCOUNTERS Encounter Location Date Diagnosis [facility] [id number] [place] [address] 52184- 4663 Jul, [facility] [address] [place] [address] 17312- 7914 Jun, [facility] [id number] [place] [address] 58124- 5690 Jun, [facility] [id number] [place] [address] 96831- 2497 Jun, [facility] [id number] [place] [address] 35374- 6676 Jun, [facility] [address] [place] [address] 70968- 0364 Jun, [facility] [id number] [place] [address] 11815- 9965 24 Jun, 2018 Cough R05 ; Breast pain, right N64.4 ; Elevated hemidiaphragm J98.6 ; Right upper quadrant abdominal tenderness without rebound tenderness R10.811 ; Pneumonitis J18.9 and Renal cyst, left N28.1 [place] [id number] [place] [address] 61834- 5481 19 Jun, 2018 Migraine with aura and without status migrainosus, not intractable G43.109 [place] [id number] [place] [address] 38251- 7539 Jun, [place] [address] 52087- 9507 Jun, Migraine with aura and without status migrainosus, not intractable G43.109 and Lumbago with sciatica, left side M54.42 [place] [id number] [place] [address] 18757- 1873 12 Jun, 2018 [place] [id number] [place] [address] 52154- 0724 Jun, [place] [address] [id number] [place] [address] 49381- 2736 May, [place] [id number] [place] [address] 61319- 9203 May, Pain in right leg M79.604 ; Type 2 diabetes mellitus with diabetic chronic kidney disease E11.22 ; Pain of left leg M79.605 ; 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 ; Bruising T14.8XXA ; Hx of iron deficiency anemia Z86.2 ; Chronic kidney disease, stage III (moderate) N18.3 and Screening for breast cancer Z12.31 [place] [address] [place] [address] 56786- 0137 May, Type 2 diabetes mellitus with diabetic chronic kidney disease E11.22 ; Hx of iron deficiency anemia Z86.2 ; Chronic kidney disease, stage III (moderate) N18.3 ; Lumbago with sciatica, left side M54.42 and Other chronic pain G89.29 [facility] [address] [facility] [id number] [place] [address]- [address] May, [facility] [address] [facility] [id number] [address]- [address] Apr, Lumbago with sciatica, left side M54.42 ; Other chronic pain G89.29 and Peripheral edema R60.9 IMMUNIZATIONS No Known Immunizations SOCIAL HISTORY Never Assessed [facility]AN OF CARE VITAL SIGNS MEDICATIONS Medication Instructions Dosage Frequency Start Date End Date Duration Status Topiramate 50 mg Orally Once a day, in morning 1.5 tablet 90 days Active Ribqliokyw-UBWF-Bzsg-Cod 24-342-05-30 MG Orally every 4 hrs 1 capsule as needed 4h Active GlipiZIDE 5 mg Orally Once a day 1 tablet 24h 90 days Active Topiramate 25 mg Orally Once a day at HS 1 tablet Active RESULTS No Results PROCEDURES No Known procedures INSTRUCTIONS MEDICATIONS ADMINISTERED No Known Medications MEDICAL (GENERAL) HISTORY Type Description Date Medical History diabetes Medical History htn Medical History aldo cath rt side Medical History [place] Medical History hernia Medical History breast cancer [...]
--- OUTSIDE RECORDS SUMMARY | 2018-12-01 07:26 | XMS REPORT ---
Author Author BARRETT VILLANUEVA [facility] Address [address] [place] [address] Care Team Providers Care Condenser Operator Name Role Phone BARRETT VILLANUEVA Unavailable PROBLEMS Type Condition ICD9-CM Code WBC99-AI Code Onset Dates Condition Status SNOMED Code Problem Other chronic pain G89.29 Active 46949150 Problem Lumbago with sciatica, left side M54.42 Active 112443751 Problem Migraine with aura and without status migrainosus, not intractable G43.109 Active 9231916 Problem 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 Active 85153065 Problem Hx of iron deficiency anemia Z86.2 Active 288878712 Problem Type 2 diabetes mellitus with diabetic chronic kidney disease E11.22 Active 59632273 Problem Port-a-cath in place Z95.828 Active 276799279 Problem Chronic kidney disease, stage III (moderate) N18.3 Active 354907850 ALLERGIES Substance Reaction Event Type Date Status Compazine Unknown Drug Allergy May, Active Lexiscan foot pain Drug Allergy May, Active Soma rash Drug Allergy May, Active Plavix Unknown Drug Allergy May, Active Penicillin V Potassium rash Drug Allergy May, Active Isosorbide Mononitrate Unknown Drug Allergy May, Active Influenza Vac Typ A&B Surf Ant hives Drug Allergy May, Active Cephalexin Unknown Drug Allergy May, Active cephalosporins Unknown Non Drug Allergy May, Active toradol rash Non Drug Allergy May, Active ENCOUNTERS Encounter Location Date Diagnosis [facility] [address] [facility] [id number] [address] Jun, [facility] [address] [facility] [id number], [place] [address]- 8647 Jun, [facility] [address] [facility] [id number] [place] [address] 84316- 6485 Jun, Migraine with aura and without status migrainosus, not intractable G43.109 and Lumbago with sciatica, left side M54.42 [place] [address] [place] [address] 08665- 6920 Jun, [place] [address] [place] [address] [id number] [place] [address] 70700- 6300 Jun, [place] [address] [place] [address] [id number] [place] [address] 59958- 1776 May, [place] [address] [place] [address] [id number] [place] [address] 36054- 1143 May, Pain in right leg M79.604 ; Type 2 diabetes mellitus with diabetic chronic kidney disease E11.22 ; Pain of left leg M79.605 ; 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 ; Bruising T14.8XXA ; Hx of iron deficiency anemia Z86.2 ; Chronic kidney disease, stage III (moderate) N18.3 and Screening for breast cancer Z12.31 [place] [address] [place] [id number] [place] [address] 76672- 0877 May, Type 2 diabetes mellitus with diabetic chronic kidney disease E11.22 ; Hx of iron deficiency anemia Z86.2 ; Chronic kidney disease, stage III (moderate) N18.3 ; Lumbago with sciatica, left side M54.42 and Other chronic pain G89.29 [place] [address] [place] [address] 22386- 1422 May, [place] [address] [place] [address] [id number] [place] [address] 53452- 7366 Apr, Lumbago with sciatica, left side M54.42 ; Other chronic pain G89.29 and Peripheral edema R60.9 IMMUNIZATIONS No Known Immunizations SOCIAL HISTORY Never Assessed REASON FOR VISIT Establish Care/Back pain f/dinesh Chandler RN, Needs port flush today PLAN OF CARE Activity Details Follow Up 3 months or as indicated by lab Reason:DM/pain VITAL SIGNS Height 64 in 2018-05-29 Weight 176.9 lbs 2018-05-29 Temperature 98.4 degrees Fahrenheit 2018-05-29 Heart Rate 91 bpm 2018-05-29 Respiratory Rate 18 2018-05-29 BMI 30.36 kg/m2 2018-05-29 Blood pressure systolic 122 mmHg 2018-05-29 Blood pressure diastolic 76 mmHg 2018-05-29 MEDICATIONS Medication Instructions Dosage Frequency Start Date End Date Duration Status Ropinirole HCl 0.5 MG Orally twice a day 1 tablet 12h Active Atorvastatin Calcium 80 MG Orally Once a day at bedtime 1 tablet Active Venlafaxine HCl ER 150 MG Orally Once a day 1 tablet with food 24h Active Venlafaxine HCl ER 75 MG Orally Once a day 1 capsule with food 24h Active Topiramate 25 MG Orally Once a day 1 tablet 24h Active GlipiZIDE 5 MG Orally Once a day 1 tablet 24h Active Lorazepam 0.5 MG Orally 2 times a day prn 1 tablet twice daily as needed 28 days Active Topiramate 50 MG Orally Once a day 1 tablet 24h Active Jajprbyawe-DELI-Tdnv-Cod 54-587-25-30 MG Orally every 4 hrs 1 capsule as needed 4h Active Amlodipine Besylate 10 MG Orally Once a day 1 tablet 24h Active Furosemide 40 MG Orally Once a day 1 tablet 24h Active Folic Acid 1 MG Orally Once a day 1 tablet 24h Active Baclofen 10 MG Orally Three times a day as needed for muscle spasms 1 tablet with food or milk Active Labetalol HCl 200 MG Orally Three times a day 2 tablets 8h Active Latanoprost 0.005 % Ophthalmic Once a day 1 drop into affected eye in the evening 24h Active Ondansetron HCl 4 MG Orally every 6 hrs as needed for nausea 1 tablet as needed Active Tramadol HCl Active RESULTS No Results PROCEDURES Procedure Date Ordered Result Body Site DRUG TEST PRSMV DIR OPT OBS May 29, 2018 [facility] VISIT ESTABLISHED PATIENT May 29, 2018 INSTRUCTIONS MEDICATIONS ADMINISTERED No Known Medications [...]
--- OUTSIDE RECORDS SUMMARY | 2018-12-01 07:26 | XMS REPORT ---
Author Author BARRETT VILLANUEVA [facility] Address [address] [place] [address] Care Team Providers Care Soft Work Cigar Machine Operator Name Role Phone BARRETT VILLANUEVA Unavailable PROBLEMS Type Condition ICD9-CM Code QSB79-EU Code Onset Dates Condition Status SNOMED Code Problem Other chronic pain G89.29 Active 89736200 Problem Lumbago with sciatica, left side M54.42 Active 305443819 Problem Migraine with aura and without status migrainosus, not intractable G43.109 Active 4004412 Problem 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 Active 18140124 Problem Hx of iron deficiency anemia Z86.2 Active 731308136 Problem Type 2 diabetes mellitus with diabetic chronic kidney disease E11.22 Active 74863223 Problem Port-a-cath in place Z95.828 Active 193911712 Problem Chronic kidney disease, stage III (moderate) N18.3 Active 503579187 ALLERGIES No Information ENCOUNTERS Encounter Location Date Diagnosis [facility] [id number] [place] [address] 99133- 2466 Jun, [facility] [id number] [place] [address] 43648- 8866 Jun, Migraine with aura and without status migrainosus, not intractable G43.109 [facility] [id number] [place] [address] 53507- 6832 Jun, [facility] [address] 54910- 0273 Jun, [facility] [address] [place] [id number] [place] [address] 93888- 8978 May, [facility] [address] 09[address]- 2752 May, Pain in right leg M79.604 ; Type 2 diabetes mellitus with diabetic chronic kidney disease E11.22 ; Pain of left leg M79.605 ; 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 ; Bruising T14.8XXA ; Hx of iron deficiency anemia Z86.2 ; Chronic kidney disease, stage III (moderate) N18.3 and Screening for breast cancer Z12.31 [place] [address] [place] [address] 89591- 1380 May, Type 2 diabetes mellitus with diabetic chronic kidney disease E11.22 ; Hx of iron deficiency anemia Z86.2 ; Chronic kidney disease, stage III (moderate) N18.3 ; Lumbago with sciatica, left side M54.42 and Other chronic pain G89.29 [place] [address] [address]- 27[address] May, [address] [place] [address] 00549- 8803 Apr, Lumbago with sciatica, left side M54.42 ; Other chronic pain G89.29 and Peripheral edema R60.9 IMMUNIZATIONS No Known Immunizations SOCIAL HISTORY Never Assessed REASON FOR VISIT Controlled refill request PLAN OF CARE VITAL SIGNS MEDICATIONS Medication Instructions Dosage Frequency Start Date End Date Duration Status Lorazepam 0.5 MG Orally 2 times a day prn 1 tablet twice daily as needed 28 days Active RESULTS No Results PROCEDURES No Known [...]
--- OUTSIDE RECORDS SUMMARY | 2018-12-01 07:26 | XMS REPORT ---
Author Author BARRETT VILLANUEVA [facility] Address [address] [place] [address] Care Team Providers Care Lace Finisher Name Role Phone BARRETT VILLANUEVA Unavailable PROBLEMS Type Condition ICD9-CM Code OXG44-UR Code Onset Dates Condition Status SNOMED Code Problem Other chronic pain G89.29 Active 67536237 Problem Lumbago with sciatica, left side M54.42 Active 572001746 Problem Migraine with aura and without status migrainosus, not intractable G43.109 Active 3910529 Problem 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 Active 37663147 Problem Hx of iron deficiency anemia Z86.2 Active 454540800 Problem Type 2 diabetes mellitus with diabetic chronic kidney disease E11.22 Active 33362009 Problem Port-a-cath in place Z95.828 Active 273376536 Problem Chronic kidney disease, stage III (moderate) N18.3 Active 803144039 ALLERGIES No Information ENCOUNTERS Encounter Location Date Diagnosis [facility] [id number] [place] [address] 27425- 9300 Jul, [facility] [id number] [place] [address] 59272- 6854 Jun, [facility] [address] 9[address]80- 1282 Jun, [facility] [address] 05699- 9278 Jun, [place] [address] 0[address]69- 5755 Jun, Cough R05 ; Breast pain, right N64.4 ; Elevated hemidiaphragm J98.6 ; Right upper quadrant abdominal tenderness without rebound tenderness R10.811 ; Pneumonitis J18.9 and Renal cyst, left N28.1 [place] [address] [id number] [place] [address] 44411- 0253 19 Jun, 2018 Migraine with aura and without status migrainosus, not intractable G43.109 [facility] [address] [id number] [address]- 4806 Jun, [place] [address] [id number] [place] [address] 64006- 5678 Jun, Migraine with aura and without status migrainosus, not intractable G43.109 and Lumbago with sciatica, left side M54.42 [place] [address] [id number] [place] [address] 40321- 1448 Jun, [place] [address] [id number] [place] [address] 49689- 6573 Jun, [place] [address] [id number] [place] [address] 57649- 2120 May, [place] [address] [id number] [place] [address] 33395- 6690 May, Pain in right leg M79.604 ; Type 2 diabetes mellitus with diabetic chronic kidney disease E11.22 ; Pain of left leg M79.605 ; 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 ; Bruising T14.8XXA ; Hx of iron deficiency anemia Z86.2 ; Chronic kidney disease, stage III (moderate) N18.3 and Screening for breast cancer Z12.31 [place] [address] [id number] [place] [address] 31501- 9707 09 May, 2018 Type 2 diabetes mellitus with diabetic chronic kidney disease E11.22 ; Hx of iron deficiency anemia Z86.2 ; Chronic kidney disease, stage III (moderate) N18.3 ; Lumbago with sciatica, left side M54.42 and Other chronic pain G89.29 [place] [address] [id number] [place] [address] 99779- 2582 May, [place] [address] [facility] [id number] [place] [address]- 8290 Apr, Lumbago with sciatica, left side M54.42 ; Other chronic pain G89.29 and Peripheral edema R60.9 IMMUNIZATIONS No Known Immunizations SOCIAL HISTORY Never Assessed REASON FOR VISIT Controlled Med Refill 06/24 PLAN OF CARE VITAL SIGNS MEDICATIONS Medication [...] History aldo cath rt side Medical History [place] Medical History hernia Medical History breast cancer [...]
--- OUTSIDE RECORDS SUMMARY | 2018-12-01 07:26 | XMS REPORT ---
Author Author BARRETT VILLANUEVA [facility] Address [address] [place] [address] Care Team Providers Care Manager Company Name Role Phone BARRETT VILLANUEVA Unavailable PROBLEMS ALLERGIES No Information ENCOUNTERS IMMUNIZATIONS No Known Immunizations SOCIAL HISTORY No smoking Hx information available REASON FOR VISIT PLAN OF CARE VITAL SIGNS MEDICATIONS Unknown Medications RESULTS No Results PROCEDURES No Known procedures INSTRUCTIONS MEDICATIONS ADMINISTERED No Known Medications MEDICAL (GENERAL) HISTORY
--- OUTSIDE RECORDS SUMMARY | 2018-12-01 07:26 | XMS REPORT ---
Author Author BARRETT VILLANUEVA [facility] Address [address] [place] [address] Care Team Providers Care Mine Engineering Manager Name Role Phone BARRETT VILLANUEVA Unavailable PROBLEMS Type Condition ICD9-CM Code PML68-LX Code Onset Dates Condition Status SNOMED Code Problem Other chronic pain G89.29 Active 51426869 Problem Lumbago with sciatica, left side M54.42 Active 910114152 Problem Migraine with aura and without status migrainosus, not intractable G43.109 Active 6614797 Problem 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 Active 79180979 Problem Hx of iron deficiency anemia Z86.2 Active 022947688 Problem Type 2 diabetes mellitus with diabetic chronic kidney disease E11.22 Active 65479686 Problem Port-a-cath in place Z95.828 Active 473711490 Problem Chronic kidney disease, stage III (moderate) N18.3 Active 305425237 ALLERGIES Substance Reaction Event Type Date Status [...] May, Active ENCOUNTERS Encounter Location Date Diagnosis [facility] [address] [facility] [id number], [place] [address] Jul, [facility] [address] [facility] [id number], [place] [address] Jun, [facility] [address] [facility] [id number] [place] [address]26- 1589 Jun, [place] [address] [place] [id number] [place] [address] 68640- 4393 Jun, Cough R05 ; Breast pain, right N64.4 ; Elevated hemidiaphragm J98.6 ; Right upper quadrant abdominal tenderness without rebound tenderness R10.811 ; Pneumonitis J18.9 and Renal cyst, left N28.1 [place] [address] [address] [id number] [place] [address] 04538- 9037 Jun, Migraine with aura and without status migrainosus, not intractable G43.109 [place] [address] [place] [address] [id number] [place] [address] 82042- 7500 Jun, [place] [address] [place] [address] [id number] [place] [address] 65830- 3802 Jun, Migraine with aura and without status migrainosus, not intractable G43.109 and Lumbago with sciatica, left side M54.42 [place] [address] [place] [id number] [place] [address] 93252- 3394 12 Jun, 2018 [place] [address] [place] [id number] [place] [address] 30536- 7538 04 Jun, 2018 [place] [address] [place] [id number] [place] [address] 15065- 2280 May, [place] [address] [place] [id number] [place] [address] 96361- 8074 27 May, 2018 Pain in right leg M79.604 ; Type 2 diabetes mellitus with diabetic chronic kidney disease E11.22 ; Pain of left leg M79.605 ; 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 ; Bruising T14.8XXA ; Hx of iron deficiency anemia Z86.2 ; Chronic kidney disease, stage III (moderate) N18.3 and Screening for breast cancer Z12.31 [place] [address] [place] [id number] [place] [address] 22454- 5676 09 May, 2018 Type 2 diabetes mellitus with diabetic chronic kidney disease E11.22 ; Hx of iron deficiency anemia Z86.2 ; Chronic kidney disease, stage III (moderate) N18.3 ; Lumbago with sciatica, left side M54.42 and Other chronic pain G89.29 [facility] [address] [facility] [id number] [place] [address] May, [facility] [address] [facility] [id number] [place] [address] Apr, Lumbago with sciatica, left side M54.42 ; Other chronic pain G89.29 and Peripheral edema R60.9 IMMUNIZATIONS No Known Immunizations SOCIAL HISTORY Never Assessed REASON FOR VISIT Pt c/o bilateral leg pain (more pain in the left leg) that has been getting worse. SETH Mcdaniel, Pt would like disability Parking paperwork filled out. SETH Mcdaniel PLAN OF CARE Activity Details Follow Up prn after epidural/ 3mos Reason:CHM Pending Test Mammogram, Bilateral Screening VITAL SIGNS Height 64 in 2018-06-16 Weight 195.7 lbs 2018-06-16 Temperature 99.0 degrees Fahrenheit 2018-06-16 Heart Rate 84 bpm 2018-06-16 Respiratory Rate 20 2018-06-16 BMI 33.59 kg/m2 2018-06-16 Blood pressure systolic 132 mmHg 2018-06-16 Blood pressure diastolic 78 mmHg 2018-06-16 MEDICATIONS Medication Instructions Dosage Frequency Start Date End Date Duration Status Venlafaxine HCl ER 75 MG Orally Once a day 1 capsule with food 24h Active Ropinirole HCl 0.5 MG Orally twice a day 1 tablet 12h Active Folic Acid 1 MG Orally Once a day 1 tablet 24h Active Baclofen 10 MG Orally Three times a day as needed for muscle spasms 1 tablet with food or milk Active Topiramate 50 MG Orally Once a day 1 tablet 24h Active Atorvastatin Calcium 80 MG Orally Once a day at bedtime 1 tablet Active Czfsqveect-CEJZ-Mvkf-Cod [id number] MG Orally every 4 hrs 1 capsule as needed 4h Active Topiramate 25 MG Orally Once a day 1 tablet 24h Active Ondansetron HCl 4 MG Orally every 6 hr 1 tablet as needed 30 days Active Labetalol HCl 200 MG Orally Three times a day 2 tablets 8h Active GlipiZIDE 5 MG Orally Once a day 1 tablet 24h Active Lorazepam 0.5 MG Orally 2 times a day prn 1 tablet twice daily as needed 28 days Active Furosemide 40 MG Orally Once a day 1 tablet 24h Active Venlafaxine HCl ER 150 MG Orally Once a day 1 tablet with food 24h Active Amlodipine Besylate 10 MG Orally Once a day 1 tablet 24h Active Tramadol HCl Active Latanoprost 0.005 % Ophthalmic Once a day 1 drop into affected eye in the evening 24h Active RESULTS Name Result Date Reference Range Ultrasound : Venous Doppler, Bilateral 2018-06-20 PROCEDURES Procedure Date Ordered Result Body Site [facility] VISIT ESTABLISHED PATIENT Jun 16, 2018 INSTRUCTIONS MEDICATIONS ADMINISTERED No Known Medications MEDICAL (GENERAL) HISTORY Type Description Date Medical History diabetes Medical History htn Medical History aldo cath rt side Medical History [place] Medical History hernia Medical History breast cancer [...]
--- OUTSIDE RECORDS SUMMARY | 2018-12-01 07:26 | XMS REPORT ---
Author Author BARRETT VILLANUEVA [facility] Address [address] [place] [address] Care Team Providers Care Mail Order Clerk Name Role Phone BARRETT VILLANUEVA Unavailable PROBLEMS Type Condition ICD9-CM Code CQL38-OM Code Onset Dates Condition Status SNOMED Code Problem Other chronic pain G89.29 Active 16692680 Problem Lumbago with sciatica, left side M54.42 Active 035968898 Problem Migraine with aura and without status migrainosus, not intractable G43.109 Active 8481800 Problem 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 Active 95840719 Problem Hx of iron deficiency anemia Z86.2 Active 369050331 Problem Type 2 diabetes mellitus with diabetic chronic kidney disease E11.22 Active 37201941 Problem Port-a-cath in place Z95.828 Active 259186910 Problem Chronic kidney disease, stage III (moderate) N18.3 Active 712681986 ALLERGIES No Information ENCOUNTERS Encounter Location Date Diagnosis [facility] [address] [id number] [place] [address] 74049- [address]60 Jul, [facility] [address] [id number] [place] [address] 48442- 9696 Jun, [facility] [address] [address] Jun, [facility] [address] [address]- [address] Jun, [place] [address] 8[address]- [address] Jun, Cough R05 ; Breast pain, right N64.4 ; Elevated hemidiaphragm J98.6 ; Right upper quadrant abdominal tenderness without rebound tenderness R10.811 ; Pneumonitis J18.9 and Renal cyst, left N28.1 [place] [address] [place] [address] [id number] [place] [address] 30613- 9561 19 Jun, 2018 Migraine with aura and without status migrainosus, not intractable G43.109 [facility] [address] [place] [address] [id number], [place] [address] Jun, [place] [address] [place] [address] [id number] [place] [address] 93674- 6485 Jun, Migraine with aura and without status migrainosus, not intractable G43.109 and Lumbago with sciatica, left side M54.42 [place] [address] [place] [address] [id number] [place] [address] 50812- 1227 Jun, [place] [address] [place] [address] [id number] [place] [address] 29584- 1968 Jun, [place] [address] [place] [address] [id number] [place] [address] 79301- 2561 May, [place] [address] [place] [address] [id number] [place] [address] 45463- 4197 May, Pain in right leg M79.604 ; Type 2 diabetes mellitus with diabetic chronic kidney disease E11.22 ; Pain of left leg M79.605 ; 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 ; Bruising T14.8XXA ; Hx of iron deficiency anemia Z86.2 ; Chronic kidney disease, stage III (moderate) N18.3 and Screening for breast cancer Z12.31 [place] [address] [place] [address] [id number] [place] [address] 27376- 4792 09 May, 2018 Type 2 diabetes mellitus with diabetic chronic kidney disease E11.22 ; Hx of iron deficiency anemia Z86.2 ; Chronic kidney disease, stage III (moderate) N18.3 ; Lumbago with sciatica, left side M54.42 and Other chronic pain G89.29 [place] [address] [address] [id number] [place] [address] 84131- 3747 May, [place] [address] [facility] [id number] [place] [address] Apr, Lumbago with sciatica, left side M54.42 ; Other chronic pain G89.29 and Peripheral edema R60.9 IMMUNIZATIONS No Known Immunizations SOCIAL HISTORY Never Assessed REASON FOR VISIT Topamax note PLAN OF CARE VITAL SIGNS MEDICATIONS Medication Instructions Dosage Frequency Start Date End Date Duration Status Topiramate 50 mg Orally Once a day 1 tablet 24h Active RESULTS No Results PROCEDURES No Known procedures INSTRUCTIONS MEDICATIONS ADMINISTERED No Known Medications MEDICAL (GENERAL) HISTORY Type Description Date Medical History diabetes Medical History htn Medical History aldo cath rt side Medical History [place] Medical History hernia Medical History breast cancer [...]
--- OUTSIDE RECORDS SUMMARY | 2018-12-01 07:26 | XMS REPORT ---
Author Author BARRETT VILLANUEVA [facility] Address [address] [place] [address] Care Team Providers Care Technical Publications Writer Name Role Phone BARRETT VILLANUEVA Unavailable PROBLEMS Type Condition ICD9-CM Code JVS67-TC Code Onset Dates Condition Status SNOMED Code Problem Other chronic pain G89.29 Active 96259414 Problem Lumbago with sciatica, left side M54.42 Active 568538340 Problem Migraine with aura and without status migrainosus, not intractable G43.109 Active 1451569 Problem 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 Active 61993443 Problem Hx of iron deficiency anemia Z86.2 Active 182367557 Problem Type 2 diabetes mellitus with diabetic chronic kidney disease E11.22 Active 40164040 Problem Port-a-cath in place Z95.828 Active 428916084 Problem Chronic kidney disease, stage III (moderate) N18.3 Active 018898745 ALLERGIES No Information ENCOUNTERS Encounter Location Date Diagnosis [facility] [id number] [place] [address] 20267- 4325 Jul, [facility] [address] [place] [address] 91194- 5523 Jun, [facility] [address] [place] [id number] [place] [address] 41691- 9527 Jun, [facility] [address] [place] [address] [id number] [place] [address] 41643- 8163 Jun, [facility] [address] [place] [id number] [place] [address] 15523- 6529 Jun, [facility] [address] [place] [address] 42005- 0015 Jun, [facility] [address] [place] [id number] [place] [address] 30314- 5294 24 Jun, 2018 Cough R05 ; Breast pain, right N64.4 ; Elevated hemidiaphragm J98.6 ; Right upper quadrant abdominal tenderness without rebound tenderness R10.811 ; Pneumonitis J18.9 and Renal cyst, left N28.1 [place] [address] [place] [address] [id number] [place] [address] 28919- 2023 19 Jun, 2018 Migraine with aura and without status migrainosus, not intractable G43.109 [place] [address] [place] [address] [id number] [place] [address] 13937- 7183 Jun, [place] [address] 027[address]- [address] Jun, Migraine with aura and without status migrainosus, not intractable G43.109 and Lumbago with sciatica, left side M54.42 [place] [address] [place] [address] [id number] [place] [address] 09406- 9080 12 Jun, 2018 [place] [address] [place] [address] [id number] [place] [address] 55386- 5976 Jun, [place] [address] [place] [address] [id number] [place] [address] 09100- 4167 May, [place] [address] [place] [address] [id number] [place] [address] 00384- 3593 May, Pain in right leg M79.604 ; Type 2 diabetes mellitus with diabetic chronic kidney disease E11.22 ; Pain of left leg M79.605 ; 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 ; Bruising T14.8XXA ; Hx of iron deficiency anemia Z86.2 ; Chronic kidney disease, stage III (moderate) N18.3 and Screening for breast cancer Z12.31 [place] [address] [place] [address] 98653- 3908 May, Type 2 diabetes mellitus with diabetic chronic kidney disease E11.22 ; Hx of iron deficiency anemia Z86.2 ; Chronic kidney disease, stage III (moderate) N18.3 ; Lumbago with sciatica, left side M54.42 and Other chronic pain G89.29 [facility] [address] [facility] [id number] [place] [address]- [address] May, [facility] [address] [facility] [id number] [place] [address]- [address] Apr, Lumbago with sciatica, left side M54.42 ; Other chronic pain G89.29 and Peripheral edema R60.9 IMMUNIZATIONS No Known Immunizations SOCIAL HISTORY Never Assessed REASON FOR VISIT Lab results PLAN OF CARE VITAL SIGNS MEDICATIONS Unknown [...]
[2018-12-01] MEDS ORDERED: fentaNYL INJECTION 100 MCG/2 ML AMP ONE ×2 (07:35→08:50)
[2018-12-01] MEDS ORDERED: MIDAZOLAM 2 MG/2 ML (VERSED) VIAL ONE (07:35)
[2018-12-01] MEDS ORDERED: proPOfol 200 MG/20 ML (DIPRIVAN) VIAL IV ONE (07:35)
[2018-12-01] MEDS ORDERED: LIDOCAINE PF 2% 5 ML (XYLOCAINE) VIAL ONE (07:35)
[2018-12-01] MEDS ORDERED: LACTATED RINGERS 1,000 ML IV PRN (07:42)
[2018-12-01] MEDS ORDERED: CLINDAMYCIN 600 MG/50 ML IVPB 50 ML IV ONE (07:45)
[2018-12-01] MEDS ORDERED: CATHETER FLUSH 10 ML SYR IV PRN (08:15)
--- NOTE | 2018-12-01 08:30 | Progress Note-Pre Operative ---
Pre-Operative Progress Note H&P Reviewed The H&P was reviewed, patient examined and no changes noted. Time Seen by Provider: 08:26 Date H&P Reviewed: Dec 01, 2018 Time H&P Reviewed: 08:26 Pre-Operative Diagnosis: Venous Insufficiency VERONICA LIAO DO Dec 01, 2018 08:30
[2018-12-01] MEDS ORDERED: fentaNYL INJECTION 100 MCG/2 ML AMP IVP ONE (09:00)
[2018-12-01] MEDS ORDERED: HYDROmorphone 2 MG/ML VIAL (DILAUDID) ONE (09:52)
[2018-12-01] MEDS ORDERED: ONDANSETRON 4 MG/2 ML (SDV) Z0FRAN IVP PRN (10:00)
[2018-12-01] MEDS ORDERED: HYDROmorphone 2 MG/ML VIAL (DILAUDID) IV ONE (10:00)
--- NOTE | 2018-12-01 10:10 | Progress Note-Post Operative ---
Post-Operative Progess Note Surgeon (s)/Relocation Commissioner (s) Surgeon VERONICA LIAO DO Relocation Commissioner: none Pre-Operative Diagnosis Venous Insufficiency Post-Operative Diagnosis Same Procedure & Operative Findings Date of Procedure 12/01/18 Procedure Performed/Findings Kim-cath placement Kim-cath removal Anesthesia Type MAC Estimated Blood Loss Estimated blood loss (mL): scant Specimens/Packing Specimens Removed port and capsule VERONICA LIAO DO Dec 01, 2018 10:10
--- NOTE | 2018-12-01 10:11 | Discharge Inst-Surgical ---
Discharge Inst-Surgical Depart Medication/Instructions New, Converted or Re-Newed RX: RX Given to Pt/Family Patient Instructions Follow up Appt: Make appointment for 1 week. [phone] Instructions: No strenuous activity. May shower in 24 hours, no tub bath or soaking. Use incentive spirometer at home as directed. No Smoking Skin/Wound Care: May remove bandages in am. You need to leave the Dermabond on incision it will fall off on it's own. Symptoms to Report: Appetite Changes, Extremity Discoloration, Numbness/Tingling, Swelling Increased , Bleeding Excessive, Eyesight Changes, Pain Increased, Urine Color Change, Constipation(Persistent), Fever over 101 degree F, Pain/Pressure in chest, Urinating Difficulty, Cough Up/Vomit Blood, Heart Beat Irreg/Pounding, Pain/ Pressure in jaw, Cramps in feet or legs, Lightheadedness, Pain/Pressure in shoulder, Diarrhea(Persistent), Memory Changes Suddenly, Questions/Concerns, Weight gain consecutive days, Dizziness/Fainting, Nausea/Vomiting, Shortness of Breath, Weight gain over 2 pounds If questions or concerns contact your physician Or seek help at emergency department. Activity Activity as Tolerated: Yes Activity Instructions: Avoid Stress to Incision Driving Instructions: No Driving/Refer to Dr. Wise Discharge Diet: No Restrictions Diet After 24 Hours: Clear Liquid if Nauseous If Any Problems/Questions/Issu: Contact Your Physician, Go to Emergency Room Skin/Wound Care Infection Signs and Symptoms: Increased Redness, Foul Odor of Wound, Increased Drainage, Skin Itchy or Has a Rash, Increased Swelling, Temperature Above 101 F Bathing Instructions: Shower Stitches/Allegra/Dermabond Dis: Dermabond Ice Pack: Ice On and Off Site VERONICA LIAO DO Dec 01, 2018 10:11
--- NOTE | 2018-12-01 10:15 | Diagnostic Imaging Report ---
Indication: Fluoroscopy during Groshong shunt catheter placement Fluoroscopy was provided in the OR for Dr. Whalen during Groshong shunt catheter placement. 5 seconds of fluoroscopy was utilized. Images over the upper chest demonstrate a left subclavian Groshong catheter. Impression: Fluoroscopy during Groshong shunt catheter placement. Dictated by: Dictated on workstation # [id number]
[2018-12-01 10:20] VITALS: BP 171/82
--- NOTE | 2018-12-01 10:20 | NUR ---
TO AMB SURG FROM PAR PER CART. ALERT, TEARFUL. C/O RIGHT SHOULDER PAIN RATED 9 WITH PAIN RADIATING TO NECK AND UPPER BACK. DENIES PAIN AT SURGICAL SITES. TAPED GAUZE DRESSINGS D/I TO RIGHT UPPER CHEST AND LEFT UPPER CHEST. ICE PACKS ON SITES. PO FLUIDS AND CRACKERS PROVIDED. BED LOW, LOCKED, RAILS UP X2. CALL LIGHT TO PT.
[2018-12-01] MEDS ORDERED: HYDROcodone/APAP 5 MG/325 MG (LORTAB) TAB ONE (10:36)
--- NOTE | 2018-12-01 10:40 | NUR ---
CONTACTED DR LIAO, ORDER RECEIVED, AND HYDROCODONE/ACETAMINOPHEN 5/325 MG, ONE TAB, GIVEN FOR C/O RIGHT SHOULDER PAIN
[2018-12-01] MEDS ORDERED: HYDROcodone/APAP 5 MG/325 MG (LORTAB) TAB PO ONE (10:45)
[2018-12-01 10:50] VITALS: BP 169/77
--- NOTE | 2018-12-01 11:10 | NUR ---
RATES RIGHT SHOULDER PAIN 4-5. RESTING QUIETLY. NO CHANGE IN SURGICAL SITE ASSESSMENTS.
[2018-12-01 11:30] VITALS: BP 175/85
[2018-12-01 11:53] VITALS: BP 175/85
--- NOTE | 2018-12-01 11:53 | NUR ---
HAS BEEN UP TO BR WITH ASSIST, VOIDED WITHOUT PROBLEM. ALERT, RATES RIGHT SHOULDER PAIN 2. NO CHANGE IN SITE ASSESSMENTS. TAKING PO FLUIDS WELL. STATES SHE IS READY FOR DISMISSAL.
--- NOTE | 2018-12-01 14:06 | Anesthesia-General Post-Op ---
MAC Patient Condition Mental Status/LOC: Same as Preop Cardiovascular: Satisfactory Nausea/Vomiting: Absent Respiratory: Satisfactory Pain: Controlled Complications: Absent Post Op Complications Complications None Follow Up Care/Instructions Patient Instructions None needed. Anesthesiology Discharge Order Discharge Order Patient is doing well, no complaints, stable vital signs, no apparent adverse anesthesia problems. No complications reported per nursing. KATHRYN OLIVARES CRNA Dec 01, 2018 14:06
--- NOTE | 2018-12-02 03:52 | OPERATIVE REPORT ---
DATE OF SERVICE: PREOPERATIVE DIAGNOSES: 1. Venous insufficiency. 2. Need to change port placement. POSTOPERATIVE DIAGNOSES: 1. Venous insufficiency. 2. Need to change port placement. PROCEDURES: 1. Insertion of Port-A-Cath, left anterior chest wall. 2. Removal of Port-A-Cath, right anterior chest wall. SURGEON: Mike Whalen DO SALES OPERATIONS CONSULTANT: None. ANESTHESIA: Local MAC with lidocaine. SPECIMEN: Capsule and port. BLOOD LOSS: Scant. FLUIDS: Per anesthesia. POSTOPERATIVE CONDITION: Stable. INDICATION FOR PROCEDURE: The patient is a 68-year-old female who has a Port-A-Cath in the right anterior chest wall. She needs this for venous insufficiency. Unfortunately, she is having a right total shoulder and the Port-A-Cath is in the way, needs to move to the other side. FINDINGS: The patient had a Port-A-Cath removed in the right side and the new one placed on the left side. PROCEDURE NOTE: After informed consent was obtained, the patient was brought to the operating room, placed on the table in supine position. She was sterilely prepped and draped in normal fashion. She was placed in the slight Trendelenburg position, started on the left side infiltrated the skin with local as well as towards the clavicle with local and then using an 18 gauge fine needle advanced with negative inspiration, cannulated the left subclavian vein on the first attempt. Good flash of blood, removed the syringe, placed a guidewire using Seldinger technique, it went in easily, checked with fluoroscopy and it was in good position could see the old catheter as well. At this point, then clamped the guidewire with a hemostat to the drapes and went to the other side and started removing the right anterior chest wall Port-A-Cath. First infiltrated the skin with local directly around the port, then made an incision with #11 blade through the previous incision, carried down to skin into subcutaneous tissue, then deepened down to subcutaneous tissue with Bovie electrocautery, taking this down to the port and then grasping the catheter and then able to pull the catheter out and then a 3-0 Vicryl suture used to close the tunnel from the catheter, removed the port cutting out silk suture that had been holding it in place and then passed this off table as well as cutting out the capsule as well. Once this was done, copiously irrigated with normal saline, suctioned this out. Hemostasis was obtained using Bovie electrocautery, then elected to close the incision, closing the subcutaneous tissue with 3-0 Vicryl, 2 interrupted sutures and closed the skin with a 4-0 Monocryl running subcuticular fashion and then went to the other side. Made a stab incision along the guidewire with a #11 blade, then on the right anterior chest wall, made another incision with a #11 blade, carried down through the skin and subcutaneous tissue, then deepened down through subcutaneous tissue with Bovie electrocautery down to the pectoralis major muscle and fascia and then over the guidewire placed the dilator using the Seldinger technique, it went in easily, checked with the fluoroscopy, it was in good position back in the superior vena cava. At this point, then tunneled the catheter from the stab incision into the port pocket and then removed the inner portion of the dilator sheath and then placed the catheter down the dilator sheath using the Seldinger technique, it went in easily, checked with fluoroscopy, it was in good position, then removed the external portion of the dilator sheath. Cut the catheter and then attached it to the new Port-A-Cath and then accessed the Port-A-Cath with the Frey needle. Good flush of blood and easily flushed with saline. Then, again accessed, aspirated good flush of blood and then flushed with 2 mL of heparin flush. This was then placed into the pocket created in left anterior chest wall, sutured in place down to the chest wall with a 3-0 Prolene suture, then closed the subcutaneous tissue closed with 3-0 Vicryl, 2 interrupted sutures and closed the skin with 4-0 undyed Monocryl in a running subcuticular fashion. Area was cleaned and dried pressure dressing placed as well as Dermabond. The patient transferred to recovery room in stable condition. Sponge, instrument and needle count correct at the end of the case. Job ID: [id number] DocumentID: [id number] Dictated Date: 12/01/2018 16:05:12 Silk Weaver Date: 12/02/2018 03:51:46 Dictated By: MIKE WHALEN DO
== END 2018-12-01 11:53 | disposition home or self-care (01) ==
LOC: SDC 07:19
PROVIDERS: ATTEND Surgery
DX: I87.2 Venous insufficiency (chronic) (peripheral) (principal); Z85.3 Personal history of malignant neoplasm of breast; K22.5 Diverticulum of esophagus, acquired; I10 Essential (primary) hypertension; I25.10 Atherosclerotic heart disease of native coronary artery without angina pectoris; E78.5 Hyperlipidemia, unspecified; Z95.5 Presence of coronary angioplasty implant and graft; M06.9 Rheumatoid arthritis, unspecified; E11.40 Type 2 diabetes mellitus with diabetic neuropathy, unspecified; K21.9 Gastro-esophageal reflux disease without esophagitis; Z79.899 Other long term (current) drug therapy; Z88.0 Allergy status to penicillin; Z88.1 Allergy status to other antibiotic agents; Z88.8 Allergy status to other drugs, medicaments and biological substances; Z86.718 Personal history of other venous thrombosis and embolism
CPT/HCPCS: 82962; 87081

== ENCOUNTER 2018-12-05 12:33 | Emergency (ER) | payer MEDICARE ==
[~2018-12-05] VITALS: Ht 165.1 cm; Wt 72.6 kg
[~2018-12-05 12:33] MED LIST changes: -BUP/EPI 0.5% 1:200,000 (SENSORCAINE) 30 ML VIAL ONE; -LIDOCAINE 1% INJ 20 ML 20 ML VIAL ONE
[2018-12-05] MEDS ORDERED: ASPIRIN 81 MG CHEW (CHILDREN'S ASA) PO ONE (12:45)
--- NOTE | 2018-12-05 12:53 | ED Dyspnea ---
General Stated Complaint: CHEST PAIN Source of Information: Patient Exam Limitations: No Limitations History of Present Illness Date Seen by Provider: Dec 05, 2018 Time Seen by Provider: 12:51 Initial Comments To ER per private vehicle from [facility][1] with reports of sharp left-sided chest pain for 3-4 days with shortness of breath. She's had an increase in peripheral edema and she's had a 16 pound weight gain in the past 2 weeks. She is 4 days postop from Port-A-Cath removal and replacement due to poor venous access with a history of left breast cancer. She had an incident finding of a left sixth rib fracture at some point in the past few months. She denies fevers or chills. Timing/Duration: 1 Week Severity: Moderate Activities at Onset: None Associated Symptoms: Chest Pain Allergies and Home Medications Allergies Coded Allergies: clopidogrel (Verified Allergy, Severe, BLOOD CLOTS, 11/27/18) Penicillins (Verified Allergy, Mild, RASH, 11/27/18) carisoprodol (Verified Allergy, Mild, RASH, 11/27/18) cephalexin (Verified Allergy, Mild, RASH, 11/27/18) ketorolac (Verified Allergy, Mild, RASH, 11/27/18) prochlorperazine (Verified Allergy, Mild, RASH, 11/27/18) regadenoson (Verified Allergy, Mild, RASH, 11/27/18) Home Medications Amlodipine Besylate 10 Mg Tablet, 10 MG PO DAILY, (Reported) Atorvastatin Calcium 80 Mg Tablet, 80 MG PO HS, (Reported) Baclofen 10 Mg Tablet, 10 MG PO PRN, (Reported) Butalb/Acetaminophen/Caffeine 1 Each Tablet, 1 EACH PO PRN, (Reported) Calcium Phosphate Trib/Vit D3 1 Each Tab.chew, 1 EACH PO DAILY, (Reported) Duloxetine HCl 30 Mg Capsule.dr, 30 MG PO DAILY, (Reported) Furosemide 40 Mg Tablet, 40 MG PO DAILY, (Reported) Gabapentin 300 Mg Capsule, 300 MG PO TID, (Reported) Glipizide 2.5 Mg Tab, 2.5 MG PO DAILY, (Reported) Labetalol HCl 200 Mg Tablet, 200 MG PO BID, (Reported) Ondansetron HCl 4 Mg Tab, 4 MG PO PRN, (Reported) Pantoprazole Sodium 40 Mg Tablet.dr, 40 MG PO DAILY, (Reported) Ropinirole HCl 0.5 Mg Tablet, 1 MG PO HS, (Reported) Ropinirole HCl 0.5 Mg Tablet, 0.5 MG PO DAILY, (Reported) Topiramate 25 Mg Tablet, 25 MG PO HS, (Reported) Topiramate 50 Mg Tablet, 50 MG PO DAILY, (Reported) Tramadol HCl 50 Mg Tablet, 50 MG PO Q6H PRN for PAIN-MODERATE, (Reported) Patient Home Medication List Home Medication List Reviewed: Yes Review of Systems Review of Systems Constitutional: see HPI EENTM: see HPI Respiratory: see HPI, short of breath Cardiovascular: see HPI, chest pain Genitourinary: no symptoms reported Musculoskeletal: no symptoms reported Skin: no symptoms reported Psychiatric/Neurological: No Symptoms Reported Endocrine: No Symptoms Reported Past Ffxngzf-Ipictg-Zkxewh Hx Patient Social History 2nd Hand Smoke Exposure: No Recent Foreign Travel: No Recent Hopitalizations: No Immunizations Up To Date Date of Pneumonia Vaccine: Jul 29, 2017 Date of Influenza Vaccine: Jul 28, 2018 Seasonal Allergies Seasonal Allergies: No Past Medical History Surgeries: No (L RCR, EGD-BLEED, SPINE, ABD WOUNDS, ZENKERS DIVER, L TKR, LUMPECT, BACKX2) Hysterectomy, Thyroidectomy Respiratory: No Cardiac: Yes (HX HEART CATH-STENT) Heart Attack, High Cholesterol, Hypertension Neurological: Yes Headaches /Migraines Sexually Transmitted Disease: No HIV/AIDS: No Genitourinary: Yes (HX DIALYSIS, STAGE 3 ) Gastrointestinal: Yes (HX GI BLEED) Gastroesophageal Reflux, Hepatitis Musculoskeletal: Yes (OSTEOARTHRITIS, BULGING DISCS) Arthritis Endocrine: Yes Diabetes, Non-Insulin dep HEENT: Yes (GLASSES, UPPER DENTURES) Loss of Vision: Bilateral Cancer: Yes Breast Did You Recieve Any Treatments: Yes What Type of Treatment Did You: Radiation, Surgical Intervention Psychosocial: Yes (TAKES CYMBALTA FOR BACK PAIN) Integumentary: No Blood Disorders: Yes (IRON DEFFICIENCY ANEMIA-GETS IRON INFUSIONS) Adverse Reaction/Blood Tranf: No (HAS HAD BLKOOD WITH NO REACTION) Physical Exam Vital Signs Capillary Refill : Height, Weight, BMI Height: 5'4.00" Weight: 180lbs. 0.0oz. 81.316110mj; 30.9 BMI Method: General Appearance: No Apparent Distress, WD/WN, Other (she does appear dyspneic though her saturation is 97% and lungs are clear) HEENT: PERRL/EOMI, Normal ENT Inspection Respiratory: No Accessory Muscle Use, No Respiratory Distress Cardiovascular: Regular Rate, Rhythm, Normal Peripheral Pulses Gastrointestinal: Normal Bowel Sounds, Non Tender, Soft Extremity: Normal Capillary Refill, Normal Inspection Neurologic/Psychiatric: Alert, Oriented x3 Skin: Normal Color, Warm/Dry Progress/Results/Core Measures Results/Orders Lab Results Laboratory Tests Test 12/05/18 12:50 12/05/18 13:16 Range/Units White Blood Count 8.3 4.3-11.0 10^3/uL Red Blood Count 3.93 L 4.35-5.85 10^6/uL Hemoglobin 12.0 11.5-16.0 G/DL Hematocrit 37 35-52 % Mean Corpuscular Volume 95 80-99 FL Mean Corpuscular Hemoglobin 31 25-34 PG Mean Corpuscular Hemoglobin Concent 32 32-36 G/DL Red Cell Distribution Width 13.4 10.0-14.5 % Platelet Count 226 130-400 10^3/uL Mean Platelet Volume 9.7 7.4-10.4 FL Neutrophils (%) (Auto) 65 42-75 % Lymphocytes (%) (Auto) 23 12-44 % Monocytes (%) (Auto) 8 0-12 % Eosinophils (%) (Auto) 3 0-10 % Basophils (%) (Auto) 0 0-10 % Neutrophils # (Auto) 5.4 1.8-7.8 X 10^3 Lymphocytes # (Auto) 1.9 1.0-4.0 X 10^3 Monocytes # (Auto) 0.7 0.0-1.0 X 10^3 Eosinophils # (Auto) 0.3 0.0-0.3 10^3/uL Basophils # (Auto) 0.0 0.0-0.1 10^3/uL Prothrombin Time 12.8 12.2-14.7 SEC INR Comment 1.0 0.8-1.4 Activated Partial Thromboplast Time 29 24-35 SEC Sodium Level 145 135-145 MMOL/L Potassium Level 4.2 3.6-5.0 MMOL/L Chloride Level 112 H 98-107 MMOL/L Carbon Dioxide Level 24 21-32 MMOL/L Anion Gap 9 5-14 MMOL/L Blood Urea Nitrogen 28 H 7-18 MG/DL Creatinine 1.54 H 0.60-1.30 MG/DL Estimat Glomerular Filtration Rate 33 BUN/Creatinine Ratio 18 Glucose Level 112 H 70-105 MG/DL Calcium Level 8.2 L 8.5-10.1 MG/DL Corrected Calcium 8.3 L 8.5-10.1 MG/DL Magnesium Level 2.0 1.8-2.4 MG/DL Total Bilirubin 0.3 0.1-1.0 MG/DL Aspartate Amino Transf (AST/SGOT) 16 5-34 U/L Alanine Aminotransferase (ALT/SGPT) 21 0-55 U/L Alkaline Phosphatase 133 40-136 U/L Myoglobin 136.6 H 10.0-92.0 NG/ML Troponin I < 0.028 <0.028 NG/ML B-Type Natriuretic Peptide 14.9 <100.0 PG/ML Total Protein 6.9 6.4-8.2 GM/DL Albumin 3.9 3.2-4.5 GM/DL Thyroid Stimulating Hormone (TSH) 2.27 0.35-4.94 UIU/ML Glucometer 102 70-110 MG/DL My Orders Orders - JARED ODELL SATURATION DIVER Cbc With Automated Diff (12/05/18 12:41) Magnesium (12/05/18 12:41) Chest 1 View, Ap/Pa Only (12/05/18 12:41) Cardiac Profile 1 (12/05/18 12:41) Comprehensive Metabolic Panel (12/05/18 12:41) Myoglobin Serum (12/05/18 12:41) Protime With Inr (12/05/18 12:41) Partial Thromboplastin Time (12/05/18 12:41) O2 (12/05/18 12:41) Monitor-Rhythm Ecg Trace Only (12/05/18 12:41) Lipid Panel (12/06/18 06:00) Aspirin Chewable Tablet (Baby Aspirin Ch (12/05/18 12:45) Saline Lock/Iv-Start (12/05/18 12:41) BNP (12/05/18 12:41) Morphine Injection (Morphine Injection (12/05/18 13:00) Ns Iv 1000 Ml (Sodium Chloride 0.9%) (12/05/18 13:45) Ct Angio Chest W (12/05/18 13:41) Thyroid Stimulating Hormone (12/05/18 13:41) Iohexol Injection (Omnipaque 350 Mg/Ml 1 (12/05/18 14:00) Contrast Received (Contrast Received) (12/05/18 14:00) Ns (Ivpb) (Sodium Chloride 0.9% Ivpb Bag (12/05/18 14:00) Morphine Injection (Morphine Injection (12/05/18 14:30) Lorazepam Injection (Ativan Injection) (12/05/18 14:45) Medications Given in ED Current Medications Medications Dose Ordered Sig/Ana María Route Start Time Stop Time Status Last Admin Dose Admin Aspirin 324 mg ONCE ONCE PO 12/05/18 12:45 12/05/18 12:46 DC 12/05/18 13:05 324 MG Iohexol 100 ml ONCE ONCE IV 12/05/18 14:00 12/05/18 14:01 DC 12/05/18 14:23 100 ML Morphine Sulfate 4 mg ONCE ONCE IVP 12/05/18 13:00 12/05/18 13:01 DC 12/05/18 13:05 4 MG Morphine Sulfate 4 mg ONCE ONCE IVP 12/05/18 14:30 12/05/18 14:31 DC 12/05/18 14:00 4 MG Sodium Chloride 100 ml ONCE ONCE IV 12/05/18 14:00 12/05/18 14:01 DC 12/05/18 14:23 80 ML Departure Communication (Admissions) 1404-patient despite 4 mg of morphine is still reporting severe 10 out of 10 left-sided chest pain up into her neck that is very sharp. Her kidney function is suboptimal for CT angiogram. I discussed with her the risks of worsening the already poor kidney function but this being a necessary evil to evaluate the aorta and for pulmonary emboli. She agrees to proceed with CT angiogram. We will hydrate. 1423- despite 8 mg of IV morphine and she is still in bed and complaining of chest pain and now cramping in her legs. Her son is at the bedside. She is tearful. I suspect anxiety may be a component of her symptoms. 1603-CT angiogram unremarkable. I suspect the patient's left-sided chest and neck pain may simply be postoperative in nature. She states that she used to be on morphine for chronic back pain but now she is only on Ultram and doesn't seem to be helping. Dr. Muse was here and evaluated the patient and does not see any complications of the right sided Port-A-Cath removal and placement on the left side. 1642- I discussed the case with Dr. Muse from surgery. Does not visualize any complications. I discussed the normal EKG and negative troponin with Dr. Ji , does not feel this to be cardiac, discussed with Dr. Barnes who agrees that all of the life-threatening complications have seemingly been ruled out. Patient can be discharged home on stronger pain medication and return for any worsening symptoms. The patient would prefer this plan rather than being admitted. Son is at the bedside and agrees. She Impression Primary Impression: Chest pain Qualified Codes: R07.9 - Chest pain, unspecified Disposition: 01 HOME, SELF-CARE Condition: Stable Admissions Decision to Admit Reason: Admit from ER (General) Decision to Admit/Date: Dec 05, 2018 Time/Decision to Admit Time: 14:44 Departure-Patient Inst. Decision time for Depature: 16:43 Referrals: JOSIANE KITCHEN DO (PCP) Primary Care Physician BARRETT VILLANUEVA APRN (Family) Primary Care Physician Patient Instructions: Chest Pain That Is Not Caused by the Heart (DC) Add. Discharge Instructions: 1. Return to ER for any fevers, shortness of breath. Follow up with your doctor for recheck labs next week. Do not use the ultram, use the percocet as directed. Scripts Oxycodone HCl/Acetaminophen (Percocet 10-325 mg Tablet) 1 Each Tablet 1 TAB PO Q6H PRN for PAIN-MODERATE MDD 3, #21 TAB Prov: JARED ODELL APRN 12/05/18 JARED ODELL APRN Dec 05, 2018 12:53
[2018-12-05 13:00] LABS: BASOPHILS % (AUTO) 0 % (0-10); EOSINOPHILS # (AUTO) 0.3 10^3/uL (0.0-0.3); EOSINOPHILS % (AUTO) 3 % (0-10); HEMATOCRIT 37 % (35-52); LYMPHOCYTES # (AUTO) 1.9 X 10^3 (1.0-4.0); LYMPHOCYTES % (AUTO) 23 % (12-44); MEAN CORPUSCULAR HEMOGLOBIN 31 PG (25-34); MEAN CORPUSCULAR HGB CONC 32 G/DL (32-36); MEAN CORPUSCULAR VOLUME 95 FL (80-99); MEAN PLATELET VOLUME 9.7 FL (7.4-10.4); MONOCYTES # (AUTO) 0.7 X 10^3 (0.0-1.0); MONOCYTES % (AUTO) 8 % (0-12); NEUTROPHILS # (AUTO) 5.4 X 10^3 (1.8-7.8); NEUTROPHILS % (AUTO) 65 % (42-75); PLATELET COUNT 226 10^3/uL (130-400); RED CELL DISTRIBUTION WIDTH 13.4 % (10.0-14.5); WHITE BLOOD COUNT 8.3 10^3/uL (4.3-11.0)
[2018-12-05] MEDS ORDERED: morphine INJ 10 MG/ML 1ML (SYR OR VIAL) IVP ONE ×2 (13:00→14:30)
--- NOTE | 2018-12-05 13:04 | Diagnostic Imaging Report ---
INDICATION: Chest pain. Portable chest 12:56 p.m. Left subclavian Port-A-Cath tip projects over the SVC. Heart size and pulmonary vascularity are normal. Lungs are clear. There are no effusions or pneumothoraces. IMPRESSION: No acute abnormalities in the chest. Dictated by: Dictated on workstation # [id number]
[2018-12-05 13:16] LABS: PROTHROMBIN TIME PATIENT 12.8 SEC (12.2-14.7)
[2018-12-05 13:23] LABS: ALANINE AMINOTRANSFERASE 21 U/L (0-55); ALBUMIN 3.9 GM/DL (3.2-4.5); ALKALINE PHOSPHATASE 133 U/L (40-136); BILIRUBIN,TOTAL 0.3 MG/DL (0.1-1.0); BUN/CREATININE RATIO 18; CALCIUM 8.2 MG/DL (8.5-10.1); CARBON DIOXIDE 24 MMOL/L (21-32); CHLORIDE 112 MMOL/L (98-107); CREATININE SERUM 1.54 MG/DL (0.60-1.30); GFR ESTIMATED 33; GLUCOSE 112 MG/DL (70-105); POTASSIUM 4.2 MMOL/L (3.6-5.0); SODIUM 145 MMOL/L (135-145); TOTAL PROTEIN 6.9 GM/DL (6.4-8.2)
[2018-12-05 13:33] LABS: MYOGLOBIN SERUM 136.6 NG/ML (10.0-92.0)
[2018-12-05] MEDS ORDERED: NS IV 1000 ML 1,000 ML IV SCH (13:45)
--- NOTE | 2018-12-05 13:56 | NUR ---
Pt. son notified per patient request.
[2018-12-05] MEDS ORDERED: NS 100 ML (IVPB) BAG IV ONE (14:00)
[2018-12-05] MEDS ORDERED: RECEIVED CONTRAST (Hold Metformin) IV SCH (14:00)
[2018-12-05] MEDS ORDERED: IOHEXOL 350 MG/ML 100 ML (OMNIPAQUE 350) VIAL IV ONE (14:00)
[2018-12-05] MEDS ORDERED: LORazepam INJ 2 MG/ML (ATIVAN) VIAL IVP PRN (14:45)
--- NOTE | 2018-12-05 15:36 | Diagnostic Imaging Report ---
PROCEDURE: CT angiography of the chest with contrast. TECHNIQUE: Multiple contiguous axial images were obtained through the chest after uneventful bolus administration of intravenous contrast. 2D reconstructed CTA MIP acquisitions were also performed. INDICATION: Chest pain for one week. Patient has history of breast carcinoma. COMPARISON: Correlation is made with prior CT chest from 07/15/2018. FINDINGS: The thoracic aorta is normal in caliber. No dissection is identified. Pulmonary arterial system does show some dilatation of the central pulmonary arteries bilaterally. A component of pulmonary arterial hypertension cannot be entirely excluded. No definite filling defects are seen to suggest thromboemboli. There are coronary arterial calcifications present. No pericardial or pleural fluid is seen. Right hemidiaphragm is elevated. No definite axillary lymphadenopathy is seen. There are some surgical clips in the left axilla. Left chest wall port is in place. No definite mediastinal or hilar lymphadenopathy is detected. There is some chronic-appearing infiltrate versus atelectasis or scarring in the anterior right upper lobe. This is similar to prior study. There are some minimal patchy ground-glass opacities in both upper lobes, similar to prior CT. There are regions of subsegmental atelectasis in the right lower lobe. Upper abdomen is unremarkable. IMPRESSION: 1. No evidence of thoracic aortic dissection. 2. No definite pulmonary embolism is seen. The pulmonary arteries are prominent centrally which could be owing to a component of pulmonary arterial hypertension. This is similar to prior study. 3. Right hemidiaphragmatic elevation with right basilar subsegmental atelectasis. There are some patchy ground-glass opacities in bilateral upper lobes which appear chronic and were present on exam from 07/15/2018. No new abnormality is identified. Dictated by: Dictated on workstation # [id number]
--- NOTE | 2018-12-05 16:00 | NUR ---
Dr. Muse at the bedside to asses the patient.
[2018-12-05] MEDS ORDERED: OXYC1TAB12 PO (16:46)
[2018-12-05 16:59] VITALS: BP 131/85
--- NOTE | 2018-12-05 19:23 | Consultation ---
History of Present Illness History of Present Illness Patient Consulted On(anthony/time) 12/05/18 16:03 Date Seen by Provider: Dec 05, 2018 Time Seen by Provider: 16:03 History of Present Illness Consult requested by Jared Odell for chest pain s/p port placement/removal seen and evaluated in ED Patient is a 68 year old female who states she has been having left sided neck pain for one week and left chest wall pain that is from lower rib cage up to clavicle on the left which she has had for 4 days. Cant get any relief she states. She states it is also causing her to have shortness of breath. She states pain is moderate to severe. She also notes swelling to the b/l lower extremities. Patient chest x ray without any acute abnormality, CTA chest with out any acute abnormality. Allergies and Home Medications Allergies Coded Allergies: clopidogrel (Verified Allergy, Severe, BLOOD CLOTS, 11/27/18) Penicillins (Verified Allergy, Mild, RASH, 11/27/18) carisoprodol (Verified Allergy, Mild, RASH, 11/27/18) cephalexin (Verified Allergy, Mild, RASH, 11/27/18) ketorolac (Verified Allergy, Mild, RASH, 11/27/18) prochlorperazine (Verified Allergy, Mild, RASH, 11/27/18) regadenoson (Verified Allergy, Mild, RASH, 11/27/18) Home Medications Amlodipine Besylate 10 Mg Tablet, 10 MG PO DAILY, (Reported) Atorvastatin Calcium 80 Mg Tablet, 80 MG PO HS, (Reported) Baclofen 10 Mg Tablet, 10 MG PO PRN, (Reported) Butalb/Acetaminophen/Caffeine 1 Each Tablet, 1 EACH PO PRN, (Reported) Calcium Phosphate Trib/Vit D3 1 Each Tab.chew, 1 EACH PO DAILY, (Reported) Duloxetine HCl 30 Mg Capsule.dr, 30 MG PO DAILY, (Reported) Furosemide 40 Mg Tablet, 40 MG PO DAILY, (Reported) Gabapentin 300 Mg Capsule, 300 MG PO TID, (Reported) Glipizide 2.5 Mg Tab, 2.5 MG PO DAILY, (Reported) Labetalol HCl 200 Mg Tablet, 200 MG PO BID, (Reported) Ondansetron HCl 4 Mg Tab, 4 MG PO PRN, (Reported) Oxycodone HCl/Acetaminophen 1 Each Tablet, 1 TAB PO Q6H PRN for PAIN-MODERATE Prescribed by: JARED ODELL on 12/05/18 [id number] Pantoprazole Sodium 40 Mg Tablet.dr, 40 MG PO DAILY, (Reported) Ropinirole HCl 0.5 Mg Tablet, 1 MG PO HS, (Reported) Ropinirole HCl 0.5 Mg Tablet, 0.5 MG PO DAILY, (Reported) Topiramate 25 Mg Tablet, 25 MG PO HS, (Reported) Topiramate 50 Mg Tablet, 50 MG PO DAILY, (Reported) Tramadol HCl 50 Mg Tablet, 50 MG PO Q6H PRN for PAIN-MODERATE, (Reported) Patient Home Medication List Home Medication List Reviewed: Yes Past Alaniyr-Zfjtsz-Bpxkiq Hx Patient Social History Alcohol Use: Denies Use Recreational Drug Use: No 2nd Hand Smoke Exposure: No Recent Foreign Travel: No Contact w/Someone Who Travel: No Recent Infectious Disease Expo: No Recent Hopitalizations: No Immunizations Up To Date Date of Pneumonia Vaccine: Jul 29, 2017 Date of Influenza Vaccine: Jul 28, 2018 Seasonal Allergies Seasonal Allergies: No Surgeries History of Surgeries: No (L RCR, EGD-BLEED, SPINE, ABD WOUNDS, ZENKERS DIVER, L TKR, LUMPECT, BACKX2, Port removal, port placement) Surgeries: Hysterectomy, Thyroidectomy Respiratory History of Respiratory Disorde: No Cardiovascular History of Cardiac Disorders: Yes (HX HEART CATH-STENT) Cardiac Disorders: Heart Attack, High Cholesterol, Hypertension Neurological History of Neurological Disord: Yes Neurological Disorders: Headaches /Migraines Reproductive System Sexually Transmitted Disease: No HIV/AIDS: No Genitourinary History of Genitourinary Disor: Yes (HX DIALYSIS, STAGE 3 ) Gastrointestinal History of Gastrointestinal Di: Yes (HX GI BLEED) Gastrointestinal Disorders: Gastroesophageal Reflux, Hepatitis Musculoskeletal History of Musculoskeletal Dis: Yes (OSTEOARTHRITIS, BULGING DISCS) Musculoskeletal Disorders: Arthritis Endocrine History of Endocrine Disorders: Yes Endocrine Disorders: Diabetes, Non-Insulin dep HEENT History of HEENT Disorders: Yes (GLASSES, UPPER DENTURES) Loss of Vision: Bilateral Cancer History of Cancer: Yes Cancer: Breast Psychosocial History of Psychiatric Problem: Yes (TAKES CYMBALTA FOR BACK PAIN) Integumentary History of Skin or Integumenta: No Blood Transfusions History of Blood Disorders: Yes (IRON DEFFICIENCY ANEMIA-GETS IRON INFUSIONS) Adverse Reaction to a Blood Tr: No (HAS HAD BLKOOD WITH NO REACTION) Family Medical History Significant Family History: No Pertinent Family Hx Review of Systems-General Constitutional: see HPI EENTM: no symptoms reported Respiratory: see HPI Cardiovascular: see HPI Gastrointestinal: no symptoms reported Genitourinary: no symptoms reported Musculoskeletal: see HPI, neck pain Skin: change in color Psychiatric/Neurological: No Symptoms Reported Physical Exam-General Problems Physical Exam Vital Signs Vital Signs - First Documented 12/05/18 12:50 Temp 97.8 Pulse 60 Resp 22 B/P (MAP) 101/51 (68) Pulse Ox 94 O2 Delivery Room Air O2 Flow Rate 2.00 FiO2 100 Capillary Refill : Less Than 3 Seconds General Appearance: mild distress HEENT: PERRL/EOMI, normal ENT inspection Neck: supple (slight tender heather right paravertebral musculature) Respiratory: no respiratory distress (left chest wall tender with tenderness around to left paravertebral musculatrue incrased tone), no accessory muscle use Cardiovascular: regular rate, rhythm Gastrointestinal: non tender, soft, no organomegaly Rectal: deferred Back: other (tender left chest wall posteriorly increased musculature tone and rib cage left with expiratory dysfunction) Extremities: swelling (b/l) Neurologic/Psychiatric: alert, normal mood/affect, oriented x 3 Skin: warm/dry (incisions no signs of infection, bruising around incisions but no fluctuanc or erythema, no signs of infection) Data Review Labs Laboratory Tests 12/05/18 12:50: White Blood Count 8.3, Red Blood Count 3.93L, Hemoglobin 12.0, Hematocrit 37, Mean Corpuscular Volume 95, Mean Corpuscular Hemoglobin 31, Mean Corpuscular Hemoglobin Concent 32, Red Cell Distribution Width 13.4, Platelet Count 226, Mean Platelet Volume 9.7, Neutrophils (%) (Auto) 65, Lymphocytes (%) (Auto) 23, Monocytes (%) (Auto) 8, Eosinophils (%) (Auto) 3, Basophils (%) (Auto) 0, Neutrophils # (Auto) 5.4, Lymphocytes # (Auto) 1.9, Monocytes # (Auto) 0.7, Eosinophils # (Auto) 0.3, Basophils # (Auto) 0.0, Prothrombin Time 12.8, INR Comment 1.0, Activated Partial Thromboplast Time 29, Sodium Level 145, Potassium Level 4.2, Chloride Level 112H, Carbon Dioxide Level 24, Anion Gap 9, Blood Urea Nitrogen 28H, Creatinine 1.54H, Estimat Glomerular Filtration Rate 33 , BUN/Creatinine Ratio 18, Glucose Level 112H, Calcium Level 8.2L, Corrected Calcium 8.3L, Magnesium Level 2.0, Total Bilirubin 0.3, Aspartate Amino Transf ( AST/SGOT) 16, Alanine Aminotransferase (ALT/SGPT) 21, Alkaline Phosphatase 133, Myoglobin 136.6H, Troponin I < 0.028, B-Type Natriuretic Peptide 14.9, Total Protein 6.9, Albumin 3.9, Thyroid Stimulating Hormone (TSH) 2.27 12/05/18 13:16: Glucometer 102 Assessment/Plan Assessment/Plan Assessment/Plan chest/neck pain left side recent port removal and port placement. no signs of infection from above mentioned procedure feel this is most likely musculoskeletal in nature CTA chest and chest x ray without any acute process. No surgical issues at this time, keep scheduled follow up for procedure with Dr. Whalen Clinical Quality Measures AMI/AHF: ASA po Prior to arrival: JULIO Gentile DO Dec 05, 2018 19:22
== END 2018-12-05 16:59 | disposition home or self-care (01) ==
LOC: EDUNIT# 12:33 → ER 12:34
DX: R07.89 Other chest pain (principal); I10 Essential (primary) hypertension; E78.00 Pure hypercholesterolemia, unspecified; I25.2 Old myocardial infarction; G43.909 Migraine, unspecified, not intractable, without status migrainosus; K21.9 Gastro-esophageal reflux disease without esophagitis; E11.9 Type 2 diabetes mellitus without complications; Z96.652 Presence of left artificial knee joint; Z99.2 Dependence on renal dialysis; Z79.84 Long term (current) use of oral hypoglycemic drugs; Z85.3 Personal history of malignant neoplasm of breast; Z95.5 Presence of coronary angioplasty implant and graft; Z88.0 Allergy status to penicillin; Z88.1 Allergy status to other antibiotic agents; Z88.5 Allergy status to narcotic agent; Z88.8 Allergy status to other drugs, medicaments and biological substances; Z90.710 Acquired absence of both cervix and uterus; Z90.89 Acquired absence of other organs
CPT/HCPCS: 36415; 71045; 71275; 80053; 82962; 83735; 83874; 83880; 84443; 84484; 85025; 85610; 85730; 93005; 93041

== ENCOUNTER → 2018-12-08 | Outpatient (CLI) | payer MEDICARE ==
[2018-12-08 15:17] LABS: CALCIUM 8.6 MG/DL (8.5-10.1); CREATININE SERUM 1.44 MG/DL (0.60-1.30); POTASSIUM 4.1 MMOL/L (3.6-5.0)
== END ==
LOC: LAB 14:32
PROVIDERS: ATTEND Nurse Practitioner Primary Care
DX: R25.2 Cramp and spasm (principal)
CPT/HCPCS: 36415; 80048; 83735

== ENCOUNTER → 2018-12-09 | Outpatient (CLI) | payer MEDICARE | LOC: CARD 08:39 | PROVIDERS: ATTEND Internal Medicine Cardiovascular Disease | DX: I25.10 Atherosclerotic heart disease of native coronary artery without angina pectoris (principal); E66.9 Obesity, unspecified; I85.00 Esophageal varices without bleeding; I82.409 Acute embolism and thrombosis of unspecified deep veins of unspecified lower extremity; E07.9 Disorder of thyroid, unspecified | CPT/HCPCS: 93306 ==

== ENCOUNTER → 2018-12-17 | Outpatient (CLI) | payer MEDICARE ==
[~2018-12-17] MED LIST changes: +CATHETER FLUSH 10 ML SYR IV PRN; +OXYC1TAB12 PO; +REGADENOSON 0.4 MG/5 ML SYR (LEXISCAN) IV ONE
[2018-12-17 09:19] VITALS: BP 195/92
[2018-12-17 09:22] VITALS: BP 181/90
--- NOTE | 2018-12-17 17:53 | STRESS TEST ---
DATE OF SERVICE: 12/17/2018 LEXISCAN MYOVIEW STRESS TEST REPORT REFERRING PHYSICIAN: Dr. Allie Dquue, [facility]. Baseline heart rate is 76, baseline blood pressure is 202/93. Baseline EKG is sinus rhythm with no ischemic changes. In summary, the patient was injected with 10.85 mCi of technetium-99 Myoview and the resting images were obtained. Then, the patient received 0.4 mg of Lexiscan followed by 29.6 mCi of technetium-99 Myoview. Throughout the test, there were no EKG changes. The resting and stress images were reviewed and compared in the short axis, horizontal long axis, and vertical long axis views. Review of the images showed breast attenuation with typical female pattern. No significant ischemia or infarction was seen. SSS is 0. TID value 0.88. On the gated images, the left ventricle appeared to be normal size with normal contractility. Calculated ejection fraction 61%. CONCLUSION: 1. The patient tolerated Lexiscan well. 2. No ischemia or infarction on SPECT images. 3. Normal left ventricular size with normal contractility. Calculated ejection fraction 61%. Job ID: [id number] DocumentID: [id number] Dictated Date: 12/17/2018 15:29:11 Dry Cleaner Hand Date: 12/17/2018 17:52:36 Dictated By: ABBI GUTIERREZ MD
== END ==
LOC: CARD 07:27
PROVIDERS: ATTEND Internal Medicine Cardiovascular Disease
DX: I25.10 Atherosclerotic heart disease of native coronary artery without angina pectoris (principal); I85.00 Esophageal varices without bleeding; E07.9 Disorder of thyroid, unspecified; E66.9 Obesity, unspecified; Z68.30 Body mass index [BMI] 30.0-30.9, adult
CPT/HCPCS: 78452; 93017

== ENCOUNTER 2018-12-29 13:05 | Outpatient (RCR) | payer MEDICARE ==
[2018-10-06 12:55] VITALS: BP 122/75
[2018-10-06] MEDS: CATHETER FLUSH 10 ML SYR IV PRN (13:10)
[2018-11-20 11:55] VITALS: BP 127/75
[2018-12-29 13:05] VITALS: BP 144/81
[~2018-12-29 13:05] MED LIST changes: -CATHETER FLUSH 10 ML SYR IV PRN; +HEParin (CENTRAL IV FLUSH) 500 UNIT/5 ML SYR IV ONE; +HEParin (CENTRAL IV FLUSH) 500 UNIT/5 ML SYR IV SCH; +HEParin (CENTRAL IV FLUSH) 500 UNIT/5 ML SYR ONE; -REGADENOSON 0.4 MG/5 ML SYR (LEXISCAN) IV ONE
[2018-12-29] MEDS: CATHETER FLUSH 10 ML SYR IV PRN (13:20)
== END 2019-01-04 | disposition home or self-care (01) ==
LOC: SDC 13:05
PROVIDERS: ATTEND Nurse Practitioner Primary Care
DX: Z45.2 Encounter for adjustment and management of vascular access device (principal)
CPT/HCPCS: 36591; 96523

== ENCOUNTER → 2019-01-01 | Outpatient (CLI) | payer MEDICARE ==
[~2019-01-01] MED LIST changes: -HEParin (CENTRAL IV FLUSH) 500 UNIT/5 ML SYR IV ONE; -HEParin (CENTRAL IV FLUSH) 500 UNIT/5 ML SYR IV SCH; -HEParin (CENTRAL IV FLUSH) 500 UNIT/5 ML SYR ONE
[2019-01-01 14:14] LABS: BILIRUBIN,URINE NEGATIVE (NEGATIVE); CLARITY,URINE CLEAR; COLOR,URINE YELLOW; GLUCOSE, URINE (UA) NEGATIVE (NEGATIVE); KETONES,URINE NEGATIVE (NEGATIVE); LEUKOCYTE ESTERASE ,URINE 1+ (NEGATIVE); NITRITE,URINE NEGATIVE (NEGATIVE); PH,URINE 5 (5-9); PROTEIN,URINE 1+ (NEGATIVE); UROBILINOGEN,URINE NORMAL (NORMAL)
[2019-01-01 14:15] LABS: BASOPHILS # (AUTO) 0.1 10^3/uL (0.0-0.1); BASOPHILS % (AUTO) 1 % (0-10); EOSINOPHILS # (AUTO) 0.2 10^3/uL (0.0-0.3); EOSINOPHILS % (AUTO) 3 % (0-10); HEMATOCRIT 40 % (35-52); HEMOGLOBIN 12.8 G/DL (11.5-16.0); LYMPHOCYTES # (AUTO) 1.9 X 10^3 (1.0-4.0); LYMPHOCYTES % (AUTO) 27 % (12-44); MEAN CORPUSCULAR HEMOGLOBIN 30 PG (25-34); MEAN CORPUSCULAR HGB CONC 32 G/DL (32-36); MEAN CORPUSCULAR VOLUME 94 FL (80-99); MEAN PLATELET VOLUME 9.8 FL (7.4-10.4); MONOCYTES # (AUTO) 0.6 X 10^3 (0.0-1.0); MONOCYTES % (AUTO) 9 % (0-12); NEUTROPHILS # (AUTO) 4.3 X 10^3 (1.8-7.8); NEUTROPHILS % (AUTO) 61 % (42-75); PLATELET COUNT 221 10^3/uL (130-400); RED CELL DISTRIBUTION WIDTH 13.5 % (10.0-14.5); WHITE BLOOD COUNT 7.1 10^3/uL (4.3-11.0)
[2019-01-01 14:31] LABS: ALBUMIN 4.2 GM/DL (3.2-4.5); CALCIUM 8.7 MG/DL (8.5-10.1); CREATININE SERUM 1.49 MG/DL (0.60-1.30); PHOSPHORUS 4.5 MG/DL (2.3-4.7)
[2019-01-01 14:39] LABS: BACTERIA,URINE TRACE /HPF; RBC,URINE RARE /HPF; SQUAMOUS EPITHELIAL CELL,UR 0-2 /HPF; WBC,URINE 0-2 /HPF
[2019-01-01 14:40] LABS: HYALINE CASTS, URINE 25-50 /LPF
== END ==
LOC: LAB 13:53
PROVIDERS: ATTEND Nurse Practitioner Primary Care
DX: E11.22 Type 2 diabetes mellitus with diabetic chronic kidney disease (principal); N18.3 Chronic kidney disease, stage 3 (moderate)
CPT/HCPCS: 36415; 80069; 81000; 82570; 84156; 85025

== ENCOUNTER → 2019-01-01 | Outpatient (CLI) | payer MEDICARE | LOC: RAD 13:50 | PROVIDERS: ATTEND Internal Medicine Hematology & Oncology | DX: C50.919 Malignant neoplasm of unspecified site of unspecified female breast (principal); Z53.8 Procedure and treatment not carried out for other reasons ==

== ENCOUNTER → 2019-01-26 | Outpatient (CLI) | payer MEDICARE ==
[2019-01-26 13:14] LABS: HEMOGLOBIN 13.1 G/DL (11.5-16.0); MEAN PLATELET VOLUME 9.3 FL (7.4-10.4); RED CELL DISTRIBUTION WIDTH 12.8 % (10.0-14.5); WHITE BLOOD COUNT 7.2 10^3/uL (4.3-11.0)
[2019-01-26 13:29] LABS: ALBUMIN 4.1 GM/DL (3.2-4.5); CALCIUM 8.8 MG/DL (8.5-10.1); CREATININE SERUM 1.54 MG/DL (0.60-1.30); PHOSPHORUS 3.7 MG/DL (2.3-4.7)
[2019-01-26 14:12] LABS: CLARITY,URINE CLEAR; COLOR,URINE YELLOW; GLUCOSE, URINE (UA) NEGATIVE (NEGATIVE); KETONES,URINE 1+ (NEGATIVE); LEUKOCYTE ESTERASE ,URINE 3+ (NEGATIVE); NITRITE,URINE POSITIVE (NEGATIVE); PH,URINE 5 (5-9); PROTEIN,URINE 3+ (NEGATIVE); UROBILINOGEN,URINE 1 MG/DL (NORMAL)
[2019-01-26 14:24] LABS: BACTERIA,URINE FEW /HPF; BILIRUBIN,URINE 1+ (NEGATIVE)
== END ==
LOC: LAB 12:50
PROVIDERS: ATTEND Nurse Practitioner Primary Care
DX: E11.22 Type 2 diabetes mellitus with diabetic chronic kidney disease (principal); N18.3 Chronic kidney disease, stage 3 (moderate); R82.90 Unspecified abnormal findings in urine
CPT/HCPCS: 36415; 80069; 81000; 82570; 84156; 85027; 87088

== ENCOUNTER → 2019-02-02 | Outpatient (CLI) | payer MEDICARE ==
[2019-02-02 12:47] LABS: ALBUMIN 4.1 GM/DL (3.2-4.5); BILIRUBIN,TOTAL 0.3 MG/DL (0.1-1.0); CALCIUM 9.2 MG/DL (8.5-10.1); CREATININE SERUM 1.5 MG/DL (0.60-1.30); TOTAL PROTEIN 6.8 GM/DL (6.4-8.2)
== END ==
LOC: LAB 12:10
PROVIDERS: ATTEND Nurse Practitioner Primary Care
DX: I63.9 Cerebral infarction, unspecified (principal)
CPT/HCPCS: 36415; 80053

== ENCOUNTER → 2019-02-16 | Outpatient (CLI) | payer MEDICARE ==
--- NOTE | 2019-02-16 12:06 | Diagnostic Imaging Report ---
INDICATION: Hypertension, chronic kidney disease, and diabetes. FINDINGS: The right kidney measures 10.7 x 5.7 x 4.1 cm and the left kidney is 9.8 x 4.2 x 5 cm. Both kidneys demonstrate some cortical thinning, likely reflecting atrophy. There Is no hydronephrosis or calculus. There are two small cysts in the left kidney measuring 2.2 and 1.8 cm respectively. There are no other masses. The prevoid bladder volume is 27 cc. Neither ureteral jet is visualized. The post void bladder volume is 0 cc. Spectral analysis of the renal arteries shows no evidence of a significant renal artery stenosis. IMPRESSION: 1. There appears to be some degree of bilateral renal atrophy. 2. Small left renal cysts. 3. Spectral analysis shows no evidence of a hemodynamically significant stenosis within either renal artery. Dictated by: Dictated on workstation # [id number]
== END ==
LOC: RAD 07:51
PROVIDERS: ATTEND Nurse Practitioner
DX: I12.9 Hypertensive chronic kidney disease with stage 1 through stage 4 chronic kidney disease, or unspecified chronic kidney disease (principal); E11.22 Type 2 diabetes mellitus with diabetic chronic kidney disease; E78.5 Hyperlipidemia, unspecified; K22.5 Diverticulum of esophagus, acquired; N28.1 Cyst of kidney, acquired; N18.3 Chronic kidney disease, stage 3 (moderate); I25.10 Atherosclerotic heart disease of native coronary artery without angina pectoris
CPT/HCPCS: 76770; 93975

== ENCOUNTER → 2019-02-23 | Outpatient (CLI) | payer MEDICARE ==
[2019-02-23 12:27] LABS: ALBUMIN 3.8 GM/DL (3.2-4.5); BILIRUBIN,TOTAL 0.2 MG/DL (0.1-1.0); CALCIUM 8.7 MG/DL (8.5-10.1); CREATININE SERUM 1.25 MG/DL (0.60-1.30); POTASSIUM 3.8 MMOL/L (3.6-5.0); TOTAL PROTEIN 6.4 GM/DL (6.4-8.2)
== END ==
LOC: LAB 11:56
PROVIDERS: ATTEND Nurse Practitioner Primary Care
DX: I63.9 Cerebral infarction, unspecified (principal)
CPT/HCPCS: 36415; 80053

== ENCOUNTER → 2019-02-26 | Outpatient (CLI) | payer MEDICARE ==
[2019-02-26 11:24] LABS: BASOPHILS % (AUTO) 1 % (0-10); EOSINOPHILS # (AUTO) 0.2 10^3/uL (0.0-0.3); EOSINOPHILS % (AUTO) 3 % (0-10); HEMATOCRIT 41 % (35-52); HEMOGLOBIN 13.5 G/DL (11.5-16.0); LYMPHOCYTES # (AUTO) 1.8 X 10^3 (1.0-4.0); LYMPHOCYTES % (AUTO) 23 % (12-44); MEAN CORPUSCULAR HEMOGLOBIN 30 PG (25-34); MEAN CORPUSCULAR HGB CONC 33 G/DL (32-36); MEAN CORPUSCULAR VOLUME 91 FL (80-99); MEAN PLATELET VOLUME 9.3 FL (7.4-10.4); MONOCYTES # (AUTO) 0.6 X 10^3 (0.0-1.0); MONOCYTES % (AUTO) 7 % (0-12); NEUTROPHILS # (AUTO) 5.1 X 10^3 (1.8-7.8); NEUTROPHILS % (AUTO) 66 % (42-75); PLATELET COUNT 250 10^3/uL (130-400); RED CELL DISTRIBUTION WIDTH 12.9 % (10.0-14.5); WHITE BLOOD COUNT 7.7 10^3/uL (4.3-11.0)
[2019-02-26 11:47] LABS: ERYTHROCYTE SEDIMENTATION RATE 44 MM/HR (0-30)
--- NOTE | 2019-02-26 18:52 | Diagnostic Imaging Report ---
INDICATION: Primary osteoarthritis of the hands and feet. COMPARISON: None available. TECHNIQUE: Six radiographs of the bilateral feet were obtained dated February 26, 2019. FINDINGS: The osseous structures appear diffusely demineralized. RIGHT: No acute fracture or dislocation. No destructive osseous process. Scattered degenerative changes are present, greatest involving the third and fourth toes. In particular, there is severe joint space loss, hypertrophic changes, and a gull-wing deformity associated with the third PIP joint. The Lisfranc joint is well aligned. Small plantar calcaneal enthesophyte. No tarsal coalition. LEFT: No acute fracture or dislocation. Moderate scattered degenerative changes are present, greatest involving the second and third PIP joints where there is significant joint space loss, hypertrophic changes, and gull-wing deformity. Flexion deformities associated with the majority of the toes are also present. Lisfranc joint is well aligned. Small posterior calcaneal enthesophytes. IMPRESSION: Moderate degenerative changes within the bilateral feet, greatest involving the toes as above. 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 No acute fracture or dislocation. Multiple flexion deformities associated with toes within the bilateral feet. Dictated by: Dictated on workstation # [id number]
--- NOTE | 2019-02-26 19:30 | Diagnostic Imaging Report ---
INDICATION: Osteoarthritis bilateral hands and inflammatory arthritis. TIME OF EXAM: 11:16 a.m. FINDINGS: Multiple views of bilateral hands were obtained. Carpal bones are unremarkable bilaterally. There are degenerative changes at the first CMC joint bilaterally, greatest on the left with marginal spurring present and joint space narrowing. MCP joints appear to be intact bilaterally. There are degenerative changes involving numerous interphalangeal joints involving bilateral phalanges. No definite osseous erosive changes are seen. No bone production is identified. No fracture is identified. IMPRESSION: Osteoarthritic changes. No definite erosive changes are detected. Dictated by: Dictated on workstation # [id number]
[2019-02-27 07:18] LABS: HEPATITIS C ANTIBODY C Non-Reactive (Non-Reactive)
== END ==
LOC: RAD 10:53
PROVIDERS: ATTEND Internal Medicine Rheumatology
DX: Z11.59 Encounter for screening for other viral diseases (principal); M19.072 Primary osteoarthritis, left ankle and foot; M19.071 Primary osteoarthritis, right ankle and foot; M19.042 Primary osteoarthritis, left hand; M19.041 Primary osteoarthritis, right hand; Z79.899 Other long term (current) drug therapy
CPT/HCPCS: 36415; 85025; 85652; 86141; 86200; 86430; 86480; 86705; 86706; 86803; 87340

== ENCOUNTER 2019-03-06 15:03 | Outpatient (RCR) | payer MEDICARE ==
[2019-01-07 13:31] LABS: ALBUMIN 4.3 GM/DL (3.2-4.5); BILIRUBIN,TOTAL 0.2 MG/DL (0.1-1.0); CALCIUM 8.8 MG/DL (8.5-10.1); CREATININE SERUM 1.27 MG/DL (0.60-1.30); POTASSIUM 4.2 MMOL/L (3.6-5.0); TOTAL PROTEIN 7.2 GM/DL (6.4-8.2)
== END 2019-03-31 | disposition home or self-care (01) ==
LOC: ONC 15:03
PROVIDERS: ATTEND Internal Medicine Hematology & Oncology
DX: I82.409 Acute embolism and thrombosis of unspecified deep veins of unspecified lower extremity (principal); Z85.3 Personal history of malignant neoplasm of breast
CPT/HCPCS: 36415; 80053; 99213; 99214

== ENCOUNTER → 2019-03-17 | Outpatient (CLI) | payer MEDICARE ==
--- NOTE | 2019-03-17 17:21 | Diagnostic Imaging Report ---
INDICATION: Breast cancer and all-over body pain. Patient was administered 25.1 mCi technetium-99m MDP intravenously and whole body imaging was performed after a 3-hour delay. No prior bone scans are available for comparison. FINDINGS: There is normal uptake of activity by the axial and appendicular skeleton. There is uptake by the kidneys with excretion into the urinary bladder. Postop changes of total knee replacement on the left are noted. There is medial compartmental degenerative change involving the right knee. No abnormal focus of tracer accumulation is seen to suggest osseous metastatic disease. IMPRESSION: No scintigraphic evidence of osseous metastatic disease. Dictated by: Dictated on workstation # [id number]
== END ==
LOC: CARD 11:07
PROVIDERS: ATTEND Internal Medicine Hematology & Oncology
DX: M89.8X9 Other specified disorders of bone, unspecified site (principal); M19.91 Primary osteoarthritis, unspecified site; C50.919 Malignant neoplasm of unspecified site of unspecified female breast; M79.7 Fibromyalgia
CPT/HCPCS: 78306

== ENCOUNTER → 2019-03-27 | Outpatient (CLI) | payer MEDICARE | LOC: LAB 11:50 | PROVIDERS: ATTEND Nurse Practitioner Primary Care | DX: D80.1 Nonfamilial hypogammaglobulinemia (principal); J18.9 Pneumonia, unspecified organism; J32.9 Chronic sinusitis, unspecified | CPT/HCPCS: 36415; 82784 ==

== ENCOUNTER 2019-04-20 11:55 | Outpatient (RCR) | payer MEDICARE ==
[2019-01-26 13:41] VITALS: BP 126/75
[2019-02-23 12:20] VITALS: BP 144/79
[2019-03-23 14:05] VITALS: BP 126/82
[~2019-04-20 11:55] MED LIST changes: +HEParin (CENTRAL IV FLUSH) 500 UNIT/5 ML SYR IV ONE; +HEParin (CENTRAL IV FLUSH) 500 UNIT/5 ML SYR ONE
[2019-04-20 12:00] VITALS: BP 162/92
[2019-04-20] MEDS ORDERED: HEParin (CENTRAL IV FLUSH) 500 UNIT/5 ML SYR ONE (12:18)
[2019-04-20] MEDS ORDERED: HEParin (CENTRAL IV FLUSH) 500 UNIT/5 ML SYR IV ONE (12:30)
== END 2019-04-26 | disposition home or self-care (01) ==
LOC: SDC 11:55
PROVIDERS: ATTEND Nurse Practitioner Primary Care
DX: Z45.2 Encounter for adjustment and management of vascular access device (principal)
CPT/HCPCS: 96523

== ENCOUNTER → 2019-04-20 | Outpatient (CLI) | payer MEDICARE ==
[2019-04-20 11:55] VITALS: BP 162/96
[2019-04-20 12:52] LABS: BILIRUBIN,URINE NEGATIVE (NEGATIVE); CLARITY,URINE CLEAR; COLOR,URINE YELLOW; GLUCOSE, URINE (UA) NEGATIVE (NEGATIVE); HEMOGLOBIN 13.2 G/DL (11.5-16.0); KETONES,URINE 1+ (NEGATIVE); LEUKOCYTE ESTERASE ,URINE 1+ (NEGATIVE); MEAN PLATELET VOLUME 9.4 FL (7.4-10.4); NITRITE,URINE NEGATIVE (NEGATIVE); PH,URINE 5 (5-9); PROTEIN,URINE 2+ (NEGATIVE); RED CELL DISTRIBUTION WIDTH 13.2 % (10.0-14.5); UROBILINOGEN,URINE NORMAL (NORMAL); WHITE BLOOD COUNT 7.8 10^3/uL (4.3-11.0)
[2019-04-20 13:05] LABS: BACTERIA,URINE TRACE /HPF; WBC,URINE 0-2 /HPF
[2019-04-20 13:22] LABS: ALBUMIN 4.1 GM/DL (3.2-4.5); CALCIUM 9.2 MG/DL (8.5-10.1); CREATININE SERUM 1.32 MG/DL (0.60-1.30); MAGNESIUM 2.1 MG/DL (1.8-2.4); PHOSPHORUS 4.1 MG/DL (2.3-4.7); POTASSIUM 4.2 MMOL/L (3.6-5.0); URIC ACID 5.4 MG/DL (2.6-7.2)
== END ==
LOC: SDC 11:37
PROVIDERS: ATTEND Nurse Practitioner Primary Care
DX: M54.42 Lumbago with sciatica, left side (principal); G47.62 Sleep related leg cramps; E11.22 Type 2 diabetes mellitus with diabetic chronic kidney disease; N18.3 Chronic kidney disease, stage 3 (moderate); D80.1 Nonfamilial hypogammaglobulinemia; Z86.2 Personal history of diseases of the blood and blood-forming organs and certain disorders involving the immune mechanism
CPT/HCPCS: 36415; 80061; 80069; 81000; 82306; 82570; 83735; 83970; 84156; 84550; 85027

== ENCOUNTER 2019-05-19 11:02 | Emergency (ER) | payer MEDICARE ==
[~2019-05-19] VITALS: Ht 162.6 cm; Wt 85.3 kg
[~2019-05-19 11:02] MED LIST changes: -HEParin (CENTRAL IV FLUSH) 500 UNIT/5 ML SYR IV ONE; -HEParin (CENTRAL IV FLUSH) 500 UNIT/5 ML SYR ONE
--- OUTSIDE RECORDS SUMMARY | 2019-05-19 11:07 | XMS REPORT ---
Author Author BARRETT VILLANUEVA [facility] Address [address] [place] [address] Care Team Providers Care Prospecting Driller Helper Name Role Phone BARRETT VILLANUEVA Unavailable PROBLEMS Type Condition ICD9-CM Code QUY54-WQ Code Onset Dates Condition Status SNOMED Code Problem Esophageal dysmotility K22.4 Active 415149988 Problem Zenkers diverticulum K22.5 Active 644520377 Problem Open-angle glaucoma of both eyes, unspecified glaucoma stage, unspecified open-angle glaucoma type H40.10X0 Active 29862105 Problem Restless legs G25.81 Active 12813129 Problem Chronic pain syndrome G89.4 Active 946082483 Problem Port-a-cath in place Z95.828 Active 507191309 Problem Other chronic pain G89.29 Active 78055742 Problem Chronic kidney disease, stage III (moderate) N18.3 Active 665252197 Problem Type 2 diabetes mellitus with diabetic chronic kidney disease E11.22 Active 38202062 Problem 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 Active 15384384 Problem Hx of iron deficiency anemia Z86.2 Active 490703472 Problem Herpes labialis B00.1 Active 5815289 Problem Migraine with aura and without status migrainosus, not intractable G43.109 Active 3419769 Problem Esophageal dysphagia R13.10 Active 80066098 Problem Arthritis M19.90 Active 4765970 Problem Restless legs syndrome (RLS) G25.81 Active 32326146 Problem Hypogammaglobulinemia D80.1 Active 416118451 Problem Other specified disorders of bone density and structure, right thigh M85.851 Active 507785444 Problem Recurrent sinusitis J32.9 Active 626853518 Problem Other specified disorders of bone density and structure, left thigh M85.852 Active 19948616 Problem Lumbago with sciatica, left side M54.42 Active 495999729 Problem Nocturnal leg cramps G47.62 Active 582841627 Problem Cerebrovascular accident (CVA), unspecified mechanism I63.9 Active 181403703 Problem Sudden visual loss of both eyes H53.133 Active 57867584 Problem Pulmonary HTN I27.20 Active 94140223 ALLERGIES No Information ENCOUNTERS Encounter Location Date Diagnosis [place] [address] [place] [id number] [place] [id number] Apr, [place] [address] [address] Mar, Migraine with aura and without status migrainosus, not intractable G43.109 [place] [address] [address] Mar, [place] [address] [address] Mar, Hypogammaglobulinemia D80.1 ; Recurrent pneumonia J18.9 and Recurrent sinusitis J32.9 [place] [address] [address] February, Migraine with aura and without status migrainosus, not intractable G43.109 [place] [address] [id number] [place] [address] February, Type 2 diabetes mellitus with diabetic chronic kidney disease E11.22 ; Arthritis M19.90 ; Chronic kidney disease, stage III (moderate) N18.3 ; Migraine with aura and without status migrainosus, not intractable G43.109 and Pulmonary HTN I27.20 [place] [address] [place] [id number] [place] [phone] Jan, Chronic pain syndrome G89.4 [place] [address] [address] Jan, Lumbago with sciatica, left side M54.42 [place] [address] [address] Jan, Lumbago with sciatica, left side M54.42 and Chronic kidney disease, stage III (moderate) N18.3 [facility] [id number] [place] [id number] 15 Jan, 2019 [facility] [address] [id number] [place] [phone] 08 Jan, 2019 Cerebrovascular accident (CVA), unspecified mechanism I63.9 [place] [address] [address] Jan, Acute cystitis without hematuria N30.00 [place] [address] [place] [id number] [place] [id number] Dec, [place] [address] [address] Dec, Lumbago with sciatica, left side M54.42 [place] [address] [id number] [place] [id number] 14 Dec, 2018 Chronic kidney disease, stage III (moderate) N18.3 [place] [address] [id number] [place] [id number] 13 Dec, 2018 Cerebrovascular accident (CVA), unspecified mechanism I63.9 ; Sudden visual loss of both eyes H53.133 and Type 2 diabetes mellitus with diabetic chronic kidney disease E11.22 [place] [address] [id number] [place] [id number] 12 Dec, 2018 Type 2 diabetes mellitus with diabetic chronic kidney disease E11.22 and Chronic kidney disease, stage III (moderate) N18.3 [place] [address] [id number] [place] [phone] Nov, [facility] [address] [id number] [place] [phone] Nov, Chronic kidney disease, stage III (moderate) N18.3 [place] [address] [id number] [place] [phone] 18 Nov, 2018 Leg cramps R25.2 [place] [address] [id number] [place] [phone] 16 Nov, 2018 [place] [address] [address] 15 Nov, 2018 Shortness of breath R06.02 ; Peripheral edema R60.9 and Chest pain, unspecified type R07.9 [place] [address] [address] Nov, [place] [address] [address] Nov, [place] [address] [address] Nov, [place] [address] [address] Oct, Esophageal dysphagia R13.10 ; Arthralgia, unspecified joint M25.50 ; Arthritis M19.90 ; Pre-op examination Z01.818 ; Nocturnal leg cramps G47.62 and Restless legs syndrome (RLS) G25.81 [place] [address] [address] Oct, Lumbago with sciatica, left side M54.42 [place] [address] [address] Oct, [place] [address] [address] Oct, [place] [address] [id number] [place] [address] Oct, [place] [address] [address] Oct, Viral gastroenteritis A08.4 [place] [address] [address] Oct, [place] [address] [address] Oct, [facility] [address] [address] Sep, Candidal intertrigo B37.2 ; Viral upper respiratory tract infection J06.9 ; Chronic kidney disease, stage III (moderate) N18.3 ; Type 2 diabetes mellitus with diabetic chronic kidney disease E11.22 ; Hx of iron deficiency anemia Z86.2 ; Chronic pain syndrome G89.4 and Encounter for immunization Z23 [place] [address] [address] Sep, [place] [address] [address] Sep, Viral gastroenteritis A08.4 [place] [address] [address] Sep, Lumbago with sciatica, left side M54.42 [facility] [address] [address] Sep, Viral gastroenteritis A08.4 and Dehydration E86.0 [place] [address] [address] Sep, [place] [address] [address] Aug, [place] [address] [address] Aug, [place] [address] [address] Aug, Migraine with aura and without status migrainosus, not intractable G43.109 [facility] [address] [address] Aug, Viral upper respiratory tract infection J06.9 ; Lumbago with sciatica, left side M54.42 and Herpes labialis B00.1 [place] [address] [place] [address] Aug, [facility] [address] [id number] [place] [address] Aug, Migraine with aura and without status migrainosus, not intractable G43.109 [facility] [id number] [place] [id number] Aug, [facility] [id number] [place] [address] Jul, [facility] [id number] [place] [address] Jul, Breast pain, right N64.4 [facility] [id number] [place] [address] Jul, Pneumonitis J18.9 and Neck pain M54.2 [facility] [address] [place] [id number] [place] [address] Jul, [facility] [id number] [place] [address] Jul, [facility] [id number] [place] [address] Jul, Migraine with aura and without status migrainosus, not intractable G43.109 [facility] [id number] [place] [address] Jul, Breast pain, right N64.4 ; Pneumonitis J18.9 and Screening for osteoporosis Z13.820 [facility] [id number] [place] [address] Jun, [facility] [id number] [place] [id number] Jun, [facility] [id number] [place] [address] Jun, [facility] [address] [address] Jun, [place] [address] [address] Jun, [place] [address] [address] Jun, Cough R05 ; Breast pain, right N64.4 ; Elevated hemidiaphragm J98.6 ; Right upper quadrant abdominal tenderness without rebound tenderness R10.811 ; Pneumonitis J18.9 and Renal cyst, left N28.1 [place] [address] [address] Jun, Migraine with aura and without status migrainosus, not intractable G43.109 [place] [address] [address] Jun, [place] [address] [address] Jun, Migraine with aura and without status migrainosus, not intractable G43.109 and Lumbago with sciatica, left side M54.42 [place] [address] [address] Jun, [place] [address] [address] Jun, [place] [address] [address] May, [place] [address] [address] 27 May, 2018 Pain in right leg M79.604 ; Type 2 diabetes mellitus with diabetic chronic kidney disease E11.22 ; Pain of left leg M79.605 ; 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 ; Bruising T14.8XXA ; Hx of iron deficiency anemia Z86.2 ; Chronic kidney disease, stage III (moderate) N18.3 and Screening for breast cancer Z12.31 [facility] [address] [facility] [place] [id number] [address] May, Type 2 diabetes mellitus with diabetic chronic kidney disease E11.22 ; Hx of iron deficiency anemia Z86.2 ; Chronic kidney disease, stage III (moderate) N18.3 ; Lumbago with sciatica, left side M54.42 and Other chronic pain G89.29 [place] [address] [facility] [place] [id number] [address] May, [place] [address] [facility] [id number] [address] Apr, Lumbago with sciatica, left side M54.42 ; Other chronic pain G89.29 and Peripheral edema R60.9 IMMUNIZATIONS No Known Immunizations SOCIAL HISTORY Never Assessed REASON FOR VISIT MRI PLAN OF CARE VITAL SIGNS MEDICATIONS Unknown Medications RESULTS No Results PROCEDURES No Known procedures INSTRUCTIONS MEDICATIONS ADMINISTERED No Known Medications MEDICAL (GENERAL) HISTORY Type Description Date Medical History diabetes Medical History htn Medical History aldo cath rt side Medical History PR Medical History hernia Medical History breast cancer [...]
--- OUTSIDE RECORDS SUMMARY | 2019-05-19 11:07 | XMS REPORT ---
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 Active 979429418 Problem Open-angle glaucoma of both eyes, unspecified glaucoma stage, unspecified open-angle glaucoma type H40.10X0 Active 35487144 Problem Restless legs G25.81 Active 50031641 Problem Chronic pain syndrome G89.4 Active 048837013 Problem Port-a-cath in place Z95.828 Active 689999429 Problem Other chronic pain G89.29 Active 27805957 Problem Chronic kidney disease, stage III (moderate) N18.3 Active 609534038 Problem Type 2 diabetes mellitus with diabetic chronic kidney disease E11.22 Active 00178911 Problem 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 Active 29843134 Problem Hx of iron deficiency anemia Z86.2 Active 929295070 Problem Herpes labialis B00.1 Active 3727580 Problem Migraine with aura and without status migrainosus, not intractable G43.109 Active 5140411 Problem Esophageal dysphagia R13.10 Active 55455597 Problem Arthritis M19.90 Active 4359492 Problem Restless legs syndrome (RLS) G25.81 Active 70419608 Problem Hypogammaglobulinemia D80.1 Active 808172272 Problem Other specified disorders of bone density and structure, right thigh M85.851 Active 182060307 Problem Recurrent sinusitis J32.9 Active 704740056 Problem Other specified disorders of bone density and structure, left thigh M85.852 Active 51280788 Problem Lumbago with sciatica, left side M54.42 Active 494138946 Problem Nocturnal leg cramps G47.62 Active 162730283 Problem Cerebrovascular accident (CVA), unspecified mechanism I63.9 Active 438119900 Problem Sudden visual loss of both eyes H53.133 Active 20469188 Problem Pulmonary HTN I27.20 Active 19752337 ALLERGIES No Information ENCOUNTERS Encounter Location Date Diagnosis [place] [address] [id number] [place] [address] Apr, [place] [address] [address] Mar, [place] [address] [address] Mar, [place] [address] [address] Mar, Hypogammaglobulinemia D80.1 ; Recurrent pneumonia J18.9 and Recurrent sinusitis J32.9 [place] [address] [address] February, Migraine with aura and without status migrainosus, not intractable G43.109 [place] [id number] [place] [address] February, Type 2 diabetes mellitus with diabetic chronic kidney disease E11.22 ; Arthritis M19.90 ; Chronic kidney disease, stage III (moderate) N18.3 ; Migraine with aura and without status migrainosus, not intractable G43.109 and Pulmonary HTN I27.20 [place] [id number] [place] [address] Jan, Chronic pain syndrome G89.4 [place] [id number] [place] [address] Jan, Lumbago with sciatica, left side M54.42 [place] [id number] [place] [address] Jan, Lumbago with sciatica, left side M54.42 and Chronic kidney disease, stage III (moderate) N18.3 [place] [id number] [place] [address] 15 Jan, 2019 [place] [id number] [place] [address] 08 Jan, 2019 Cerebrovascular accident (CVA), unspecified mechanism I63.9 [place] [id number] [place] [address] 08 Jan, 2019 Acute cystitis without hematuria N30.00 [place] [id number] [place] [address] Dec, [place] [address] [address] 19 Dec, 2018 Lumbago with sciatica, left side M54.42 [place] [id number] [place] [address] 14 Dec, 2018 Chronic kidney disease, stage III (moderate) N18.3 [place] [id number] [place] [address] 13 Dec, 2018 Cerebrovascular accident (CVA), unspecified mechanism I63.9 ; Sudden visual loss of both eyes H53.133 and Type 2 diabetes mellitus with diabetic chronic kidney disease E11.22 [place] [id number] [place] [address] 12 Dec, 2018 Type 2 diabetes mellitus with diabetic chronic kidney disease E11.22 and Chronic kidney disease, stage III (moderate) N18.3 [place] [id number] [address] Nov, [place] [id number] [place] [address] Nov, Chronic kidney disease, stage III (moderate) N18.3 [place] [id number] [place] [address] 18 Nov, 2018 Leg cramps R25.2 [place] [address] [place] [address] 16 Nov, 2018 [place] [address] [address] 15 Nov, 2018 Shortness of breath R06.02 ; Peripheral edema R60.9 and Chest pain, unspecified type R07.9 [place] [address] [address] 12 Nov, 2018 [place] [address] [address] Nov, [place] [address] [address] Nov, [place] [address] [address] Oct, Esophageal dysphagia R13.10 ; Arthralgia, unspecified joint M25.50 ; Arthritis M19.90 ; Pre-op examination Z01.818 ; Nocturnal leg cramps G47.62 and Restless legs syndrome (RLS) G25.81 [place] [address] [address] Oct, Lumbago with sciatica, left side M54.42 [place] [address] [address] Oct, [place] [address] [address] Oct, [place] [id number] [place] [address] Oct, [place] [address] [address] Oct, Viral gastroenteritis A08.4 [place] [address] [address] Oct, [facility] [address] [address] Oct, [facility] [address] [address] Sep, Candidal intertrigo B37.2 ; Viral upper respiratory tract infection J06.9 ; Chronic kidney disease, stage III (moderate) N18.3 ; Type 2 diabetes mellitus with diabetic chronic kidney disease E11.22 ; Hx of iron deficiency anemia Z86.2 ; Chronic pain syndrome G89.4 and Encounter for immunization Z23 [place] [address] [address] Sep, [place] [address] [address] Sep, Viral gastroenteritis A08.4 [place] [address] [address] Sep, Lumbago with sciatica, left side M54.42 [facility] [address] [address] Sep, Viral gastroenteritis A08.4 and Dehydration E86.0 [place] [address] [address] Sep, [place] [address] [address] Aug, [place] [address] [address] Aug, [place] [address] [address] Aug, Migraine with aura and without status migrainosus, not intractable G43.109 [place] [address] [address] Aug, Viral upper respiratory tract infection J06.9 ; Lumbago with sciatica, left side M54.42 and Herpes labialis B00.1 [place] [address] [address] Aug, [facility] [id number] [place] [address] Aug, Migraine with aura and without status migrainosus, not intractable G43.109 [facility] [id number] [place] [address] Aug, [facility] [id number] [place] [address] Jul, [facility] [id number] [place] [address] Jul, Breast pain, right N64.4 [facility] [id number] [place] [address] Jul, Pneumonitis J18.9 and Neck pain M54.2 [facility] [id number] [place] [address] Jul, [facility] [id number] [place] [address] Jul, [facility] [id number] [place] [address] Jul, Migraine with aura and without status migrainosus, not intractable G43.109 [facility] [id number] [place] [address] Jul, Breast pain, right N64.4 ; Pneumonitis J18.9 and Screening for osteoporosis Z13.820 [facility] [id number] [place] [address] Jun, [facility] [id number] [place] [address] Jun, [facility] [id number] [place] [address] Jun, [facility] [id number] [place] [address] Jun, [place] [id number] [place] [address] Jun, [place] [address] [address] Jun, Cough R05 ; Breast pain, right N64.4 ; Elevated hemidiaphragm J98.6 ; Right upper quadrant abdominal tenderness without rebound tenderness R10.811 ; Pneumonitis J18.9 and Renal cyst, left N28.1 [place] [id number] [place] [address] Jun, Migraine with aura and without status migrainosus, not intractable G43.109 [place] [address] [address] Jun, [place] [address] [address] Jun, Migraine with aura and without status migrainosus, not intractable G43.109 and Lumbago with sciatica, left side M54.42 [place] [address] [address] 12 Jun, 2018 [place] [address] [address] Jun, [place] [address] [id number] [place] [address] May, [place] [address] [address] 27 May, 2018 Pain in right leg M79.604 ; Type 2 diabetes mellitus with diabetic chronic kidney disease E11.22 ; Pain of left leg M79.605 ; 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 ; Bruising T14.8XXA ; Hx of iron deficiency anemia Z86.2 ; Chronic kidney disease, stage III (moderate) N18.3 and Screening for breast cancer Z12.31 [place] [address] [place] [address] May, Type 2 diabetes mellitus with diabetic chronic kidney disease E11.22 ; Hx of iron deficiency anemia Z86.2 ; Chronic kidney disease, stage III (moderate) N18.3 ; Lumbago with sciatica, left side M54.42 and Other chronic pain G89.29 [facility] [address] [facility] [id number] [address] May, [facility] [address] [facility] [id number] [address] Apr, Lumbago with sciatica, left side M54.42 ; Other chronic pain G89.29 and Peripheral edema R60.9 IMMUNIZATIONS No Known Immunizations SOCIAL HISTORY Never Assessed REASON FOR VISIT PLAN OF CARE VITAL SIGNS MEDICATIONS Medication Instructions Dosage Frequency Start Date End Date Duration Status Zmocoyoisn-GMHR-Rbgb-Cod 95-191-27-30 MG Orally Three times dailyx 1 week then decrease to twice daily 1 capsule as needed Nov, Active Atorvastatin Calcium 80 MG Orally Once a day at bedtime 1/2 tablet 30 Active Macrobid 100 mg Orally every 12 hrs 1 capsule with food 12h Dec, 3 days Active RESULTS No Results PROCEDURES No [...]
--- OUTSIDE RECORDS SUMMARY | 2019-05-19 11:12 | XMS REPORT | Continuity of Care Document ---
Author Organization Unknown Address Unknown Phone Unavailable Allergies Active Description Code Type Severity Reaction Onset Reported/Identified Relationship to Patient Clinical Status Yes carisoprodol [id number] Drug Allergy Unknown N/A 05/30/2018 Yes clopidogrel [id number] Drug Allergy Unknown N/A 05/30/2018 Yes flu vaccine flu vaccine Unknown N/A 05/30/2018 Yes ketorolac [id number] Drug Allergy Unknown N/A 05/30/2018 Yes Penicillins [id number] Drug Allergy Unknown N/A 05/30/2018 Yes clopidogrel [id number] Drug Allergy Severe BLOOD CLOTS 11/27/2018 Yes carisoprodol [id number] Drug Allergy Mild RASH 11/27/2018 Yes cephalexin [id number] Drug Allergy Mild RASH 11/27/2018 Yes ketorolac [id number] Drug Allergy Mild RASH 11/27/2018 Yes Penicillins [id number] Drug Allergy Mild RASH 11/27/2018 Yes prochlorperazine [id number] Drug Allergy Mild RASH 11/27/2018 Yes regadenoson [id number] Drug Allergy Mild RASH 11/27/2018 Medications There is no data. 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 06/18/2018 BARRETT VILLANUEVA APRN Ot N18.9 CHRONIC KIDNEY DISEASE, UNSPECIFIED 06/23/2018 BARRETT VILLANUEVA APRN Ot I83.813 VARICOSE VEINS OF BILATERAL LOWER EXTREM 06/23/2018 BARRETT VILLANUEVA APRN Ot Z12.31 ENCNTR SCREEN MAMMOGRAM FOR MALIGNANT NE 06/23/2018 BARRETT VILLANUEVA BODY ROLLING MACHINE TENDER Ot I83.813 VARICOSE VEINS OF BILATERAL LOWER EXTREM 06/23/2018 BARRETT VILLANUEVA BODY ROLLING MACHINE TENDER Ot Z12.31 ENCNTR SCREEN MAMMOGRAM FOR MALIGNANT NE 06/25/2018 BARRETT VILLANUEVA BODY ROLLING MACHINE TENDER Ot I83.813 VARICOSE VEINS OF BILATERAL LOWER EXTREM 06/25/2018 BARRETT VILLANUEVA APRN Ot Z12.31 ENCNTR SCREEN MAMMOGRAM FOR MALIGNANT NE 06/26/2018 BARRETT VILLANUEVA BODY ROLLING MACHINE TENDER Ot Z45.2 ENCOUNTER FOR ADJUSTMENT AND MANAGEMENT 07/04/2018 BARRETT VILLANUEVA APRN Ot I83.813 VARICOSE VEINS OF BILATERAL LOWER EXTREM 07/04/2018 BARRETT VILLANUEVA APRN Ot Z12.31 ENCNTR SCREEN MAMMOGRAM FOR MALIGNANT NE 07/11/2018 BARRETT VILLANUEVA APRN Ot 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 07/11/2018 BARRETT VILLANUEVA APRN Ot N18.9 CHRONIC KIDNEY DISEASE, UNSPECIFIED 07/15/2018 BARRETT VILLANUEVA APRN Ot Z45.2 ENCOUNTER FOR ADJUSTMENT AND MANAGEMENT 07/15/2018 BARRETT VILLANUEVA APRN Ot I83.813 VARICOSE VEINS OF BILATERAL LOWER EXTREM 07/15/2018 BARRETT VILLANUEVA APRN Ot Z12.31 ENCNTR SCREEN MAMMOGRAM FOR MALIGNANT NE 07/15/2018 BARRETT VILLANUEVA APRN Ot 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 07/15/2018 BARRETT VILLANUEVA BODY ROLLING MACHINE TENDER Ot N18.9 CHRONIC KIDNEY DISEASE, UNSPECIFIED 07/16/2018 BARRETT VILLANUEVA BODY ROLLING MACHINE TENDER Ot J98.6 DISORDERS OF DIAPHRAGM 07/16/2018 BARRETT VILLANUEVA BODY ROLLING MACHINE TENDER Ot N28.1 CYST OF KIDNEY, ACQUIRED 07/16/2018 BARRETT VILLANUEVA BODY ROLLING MACHINE TENDER Ot N64.4 MASTODYNIA 07/16/2018 BARRETT VILLANUEVA APRN Ot R05 COUGH 07/16/2018 BARRETT VILLANUEVA BODY ROLLING MACHINE TENDER Ot R10.811 RIGHT UPPER QUADRANT ABDOMINAL TENDERNES 07/16/2018 BARRETT VILLANUEVA BODY ROLLING MACHINE TENDER Ot R11.2 NAUSEA WITH VOMITING, UNSPECIFIED 07/16/2018 BARRETT VILLANUEVA APRN Ot Z85.3 PERSONAL HISTORY OF MALIGNANT NEOPLASM O 07/23/2018 BARRETT VILLANUEVA APRN Ot N26.1 ATROPHY OF KIDNEY (TERMINAL) 07/23/2018 BARRETT VILLANUEVA APRN Ot N28.1 CYST OF KIDNEY, ACQUIRED 07/23/2018 BARRETT VILLANUEVA APRN Ot R93.421 ABNORMAL RADIOLOGIC FINDINGS ON DX IMAGI 07/23/2018 BARRETT VILLANUEVA BODY ROLLING MACHINE TENDER Ot R93.422 ABNORMAL RADIOLOGIC FINDINGS ON DX IMAGI 07/24/2018 BARRETT VILLANUEVA APRN Ot Z45.2 ENCOUNTER FOR ADJUSTMENT AND MANAGEMENT 07/25/2018 BARRETT VILLANUEVA APRN Ot Z13.820 ENCOUNTER FOR SCREENING FOR OSTEOPOROSIS 07/31/2018 BARRETT VILLANUEVA APRN Ot Z45.2 ENCOUNTER FOR ADJUSTMENT AND MANAGEMENT 08/05/2018 BARRETT VILLANUEVA BODY ROLLING MACHINE TENDER Ot J98.6 DISORDERS OF DIAPHRAGM 08/05/2018 BARRETT VILLANUEVA BODY ROLLING MACHINE TENDER Ot N28.1 CYST OF KIDNEY, ACQUIRED 08/05/2018 BARRETT VILLANUEVA APRN Ot N64.4 MASTODYNIA 08/05/2018 BARRETT VILLANUEVA APRN Ot R05 COUGH 08/05/2018 BARRETT VILLANUEVA APRN Ot R10.811 RIGHT UPPER QUADRANT ABDOMINAL TENDERNES 08/05/2018 ABRRETT VILLANUEVA APRN Ot R11.2 NAUSEA WITH VOMITING, UNSPECIFIED 08/05/2018 BARRETT VILLANUEVA APRN Ot Z85.3 PERSONAL HISTORY OF MALIGNANT NEOPLASM O 08/12/2018 BARRETT VILLANUEVA APRN Ot Z13.820 ENCOUNTER FOR SCREENING FOR OSTEOPOROSIS 08/18/2018 BARRETT VILLANUEVA BODY ROLLING MACHINE TENDER Ot N26.1 ATROPHY OF KIDNEY (TERMINAL) 08/18/2018 BARRETT VILLANUEVA BODY ROLLING MACHINE TENDER Ot N28.1 CYST OF KIDNEY, ACQUIRED 08/18/2018 BARRETT VILLANUEVA APRN Ot R93.421 ABNORMAL RADIOLOGIC FINDINGS ON DX IMAGI 08/18/2018 BARRETT VILLANUEVA BODY ROLLING MACHINE TENDER Ot R93.422 ABNORMAL RADIOLOGIC FINDINGS ON DX IMAGI 08/19/2018 BARRETT VILLANUEVA BODY ROLLING MACHINE TENDER Ot C50.912 MALIGNANT NEOPLASM OF UNSPECIFIED SITE O 08/19/2018 BARRETT VILLANUEVA APRN Ot M85.89 OTH DISRD OF BONE DENSITY AND STRUCTURE, 08/19/2018 BARRETT VILLANUEVA APRN Ot N62 HYPERTROPHY OF BREAST 08/19/2018 BARRETT VILLANUEVA BODY ROLLING MACHINE TENDER Ot Z13.820 ENCOUNTER FOR SCREENING FOR OSTEOPOROSIS 08/21/2018 BARRETT VILLANUEVA APRN Ot Z45.2 ENCOUNTER FOR ADJUSTMENT AND MANAGEMENT 08/21/2018 BARRETT VILLANUEVA APRN Ot Z45.2 ENCOUNTER FOR ADJUSTMENT AND MANAGEMENT 08/22/2018 BARRETT VILLANUEVA APRN Ot J98.6 DISORDERS OF DIAPHRAGM 08/22/2018 BARRETT VILLANUEVA APRN Ot N28.1 CYST OF KIDNEY, ACQUIRED 08/22/2018 BARRETT VILLANUEVA APRN Ot N64.4 MASTODYNIA 08/22/2018 BARRETT VILLANUEVA APRN Ot R05 COUGH 08/22/2018 BARRETT VILLANUEVA APRN Ot R10.811 RIGHT UPPER QUADRANT ABDOMINAL TENDERNES 08/22/2018 BARRETT VILLANUEVA APRN Ot R11.2 NAUSEA WITH VOMITING, UNSPECIFIED 08/22/2018 BARRETT VILLANUEVA APRN Ot Z85.3 PERSONAL HISTORY OF MALIGNANT NEOPLASM O 08/28/2018 BARRETT VILLANUEVA APRN Ot Z45.2 ENCOUNTER FOR ADJUSTMENT AND MANAGEMENT 08/28/2018 BARRETT VILLANUEVA APRN Ot Z45.2 ENCOUNTER FOR ADJUSTMENT AND MANAGEMENT 08/29/2018 BARRETT VILLANUEVA APRN Ot Z45.2 ENCOUNTER FOR ADJUSTMENT AND MANAGEMENT 09/03/2018 BARRETT VILLANUEVA BODY ROLLING MACHINE TENDER Ot Z45.2 ENCOUNTER FOR ADJUSTMENT AND MANAGEMENT 09/04/2018 BARRETT VILLANUEVA BODY ROLLING MACHINE TENDER Ot N26.1 ATROPHY OF KIDNEY (TERMINAL) 09/04/2018 BARRETT VILLANUEVA BODY ROLLING MACHINE TENDER Ot N28.1 CYST OF KIDNEY, ACQUIRED 09/04/2018 BARRETT VILLANUEVA BODY ROLLING MACHINE TENDER Ot R93.421 ABNORMAL RADIOLOGIC FINDINGS ON DX IMAGI 09/04/2018 BARRETT VILLANUEVA BODY ROLLING MACHINE TENDER Ot R93.422 ABNORMAL RADIOLOGIC FINDINGS ON DX IMAGI 09/08/2018 BARRETT VILLANUEVA BODY ROLLING MACHINE TENDER Ot C50.912 MALIGNANT NEOPLASM OF UNSPECIFIED SITE O 09/08/2018 BARRETT VILLANUEVA BODY ROLLING MACHINE TENDER Ot M85.89 OTH DISRD OF BONE DENSITY AND STRUCTURE, 09/08/2018 BARRETT VILLANUEVA BODY ROLLING MACHINE TENDER Ot N62 HYPERTROPHY OF BREAST 09/08/2018 BARRETT VILLANUEVA BODY ROLLING MACHINE TENDER Ot Z13.820 ENCOUNTER FOR SCREENING FOR OSTEOPOROSIS 09/22/2018 CARISSA BARNES DO Ot 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 W/O MYELOPATHY OR RADICULOPA 09/22/2018 CARISSA BARNES DO Ot 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, 09/22/2018 CARISSA BARNES DO Ot M54.12 RADICULOPATHY, CERVICAL REGION 09/25/2018 BARRETT VILLANUEVA APRN Ot C50.912 MALIGNANT NEOPLASM OF UNSPECIFIED SITE O 09/25/2018 BARRETT VILLANUEVA BODY ROLLING MACHINE TENDER Ot M85.89 OTH DISRD OF BONE DENSITY AND STRUCTURE, 09/25/2018 BARRETT VILLANUEVA BODY ROLLING MACHINE TENDER Ot N62 HYPERTROPHY OF BREAST 09/25/2018 BARRETT VILLANUEVA BODY ROLLING MACHINE TENDER Ot Z13.820 ENCOUNTER FOR SCREENING FOR OSTEOPOROSIS 10/06/2018 BARRETT VILLANUEVA APRN Ot Z45.2 ENCOUNTER FOR ADJUSTMENT AND MANAGEMENT 10/06/2018 BARRETT VILLANUEVA BODY ROLLING MACHINE TENDER Ot Z45.2 ENCOUNTER FOR ADJUSTMENT AND MANAGEMENT 10/10/2018 CARISSA BARNES DO Ot 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 W/O MYELOPATHY OR RADICULOPA 10/10/2018 CARISSA BARNES DO Ot 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, 10/10/2018 CARISSA BARNES DO Ot M54.12 RADICULOPATHY, CERVICAL REGION 10/30/2018 CARISSA BARNES DO Ot 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 W/O MYELOPATHY OR RADICULOPA 10/30/2018 CARISSA BARNES DO Ot 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, 10/30/2018 CARISSA BARNES DO Ot M54.12 RADICULOPATHY, CERVICAL REGION 11/17/2018 BARRETT VILLANUEVA APRN Ot Z45.2 ENCOUNTER FOR ADJUSTMENT AND MANAGEMENT 11/20/2018 BARRETT VILLANUEVA APRN Ot Z45.2 ENCOUNTER FOR ADJUSTMENT AND MANAGEMENT 11/21/2018 BARRETT VILLANUEVA APRN Ot G47.62 SLEEP RELATED LEG CRAMPS 11/21/2018 BARRETT VILLANUEVA APRN Ot M19.90 UNSPECIFIED OSTEOARTHRITIS, UNSPECIFIED 11/21/2018 BARRETT VILLANUEVA APRN Ot M25.50 PAIN IN UNSPECIFIED JOINT 11/27/2018 BARRTET VILLANUEVA APRN Ot K22.4 DYSKINESIA OF ESOPHAGUS 11/27/2018 BARRETT VILLANUEVA APRN Ot 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, ACQUIRED 11/27/2018 BARRETT VILLANUEVA APRN Ot Z95.828 PRESENCE OF OTHER VASCULAR IMPLANTS AND 11/27/2018 VERONICA LIAO DO Ot Z01.818 ENCOUNTER FOR OTHER PREPROCEDURAL EXAMIN 11/28/2018 VERONICA LIAO DO Ot Z01.818 ENCOUNTER FOR OTHER PREPROCEDURAL EXAMIN 12/01/2018 VERONICA LIAO DO Ot E11.40 TYPE 2 DIABETES MELLITUS WITH DIABETIC N 12/01/2018 VERONICA LIAO DO Ot E78.5 HYPERLIPIDEMIA, UNSPECIFIED 12/01/2018 VERONICA LIAO DO Ot I10 ESSENTIAL (PRIMARY) HYPERTENSION 12/01/2018 VERONICA LIAO DO Ot I25.10 ATHSCL HEART DISEASE OF [place] CORONARY 12/01/2018 VERONICA LIAO DO Ot I87.2 VENOUS INSUFFICIENCY (CHRONIC) (PERIPHER 12/01/2018 VERONICA LIAO DO Ot K21.9 GASTRO-ESOPHAGEAL REFLUX DISEASE WITHOUT 12/01/2018 VERONICA LIAO DO Ot 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, ACQUIRED 12/01/2018 VERONICA LIAO DO Ot M06.9 RHEUMATOID ARTHRITIS, UNSPECIFIED 12/01/2018 VERONICA LIAO DO Ot Z79.899 OTHER [facility] (CURRENT) DRUG THERAPY 12/01/2018 FRITZ LIAO DOIC B Ot Z85.3 PERSONAL HISTORY OF MALIGNANT NEOPLASM O 12/01/2018 VERONICA LIAO DO B Ot Z86.718 PERSONAL HISTORY OF OTHER VENOUS THROMBO 12/01/2018 VERONICA LIAO DO B Ot Z88.0 ALLERGY STATUS TO PENICILLIN 12/01/2018 FRITZ LIAO DOIC B Ot Z88.1 ALLERGY STATUS TO OTHER ANTIBIOTIC AGENT 12/01/2018 VERONICA LIAO DO B Ot Z88.8 ALLERGY STATUS TO OTH DRUG/MEDS/BIOL SUB 12/01/2018 FRITZ LIAO DOIC B Ot Z95.5 PRESENCE OF CORONARY ANGIOPLASTY IMPLANT 12/02/2018 VERONICA LIAO DO B Ot E11.40 TYPE 2 DIABETES MELLITUS WITH DIABETIC N 12/02/2018 VERONICA LIAO DO B Ot E78.5 HYPERLIPIDEMIA, UNSPECIFIED 12/02/2018 VERONICA LIAO DO B Ot I10 ESSENTIAL (PRIMARY) HYPERTENSION 12/02/2018 VERONICA LIAO DO B Ot I25.10 ATHSCL HEART DISEASE OF [place] CORONARY 12/02/2018 VERONICA LIAO DO B Ot I87.2 VENOUS INSUFFICIENCY (CHRONIC) (PERIPHER 12/02/2018 VERONICA LIAO DO B Ot K21.9 GASTRO-ESOPHAGEAL REFLUX DISEASE WITHOUT 12/02/2018 FRITZ LIAO DOIC B Ot 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, ACQUIRED 12/02/2018 FRITZ LIAO DOIC B Ot M06.9 RHEUMATOID ARTHRITIS, UNSPECIFIED 12/02/2018 VERONICA LIAO DO B Ot Z79.899 OTHER [facility] (CURRENT) DRUG THERAPY 12/02/2018 VERONICA LIAO DO B Ot Z85.3 PERSONAL HISTORY OF MALIGNANT NEOPLASM O 12/02/2018 VERONICA LIAO DO B Ot Z86.718 PERSONAL HISTORY OF OTHER VENOUS THROMBO 12/02/2018 VERONICA LIAO DO B Ot Z88.0 ALLERGY STATUS TO PENICILLIN 12/02/2018 FRITZ LIAO DOIC B Ot Z88.1 ALLERGY STATUS TO OTHER ANTIBIOTIC AGENT 12/02/2018 FRITZ LIAO DOIC B Ot Z88.8 ALLERGY STATUS TO OTH DRUG/MEDS/BIOL SUB 12/02/2018 FRITZ LIAO DOIC B Ot Z95.5 PRESENCE OF CORONARY ANGIOPLASTY IMPLANT 12/03/2018 NABEEL DAIGLE MD Ot M75.101 UNSP ROTATR-CUFF TEAR/RUPTR OF RIGHT AMADOR 12/03/2018 NABEEL DAIGLE MD Ot S43.001A UNSPECIFIED SUBLUXATION OF RIGHT SHOULDE 12/04/2018 ADRIANO VILLANUEVAZAHÉCTOR Peter APRN Ot Z45.2 ENCOUNTER FOR ADJUSTMENT AND MANAGEMENT 12/05/2018 JARED ODELL APRN Ot E11.9 TYPE 2 DIABETES MELLITUS WITHOUT COMPLIC 12/05/2018 JARED ODELL APRN Ot E78.00 PURE HYPERCHOLESTEROLEMIA, UNSPECIFIED 12/05/2018 JARED ODELL APRN Ot G43.909 MIGRAINE, UNSP, NOT INTRACTABLE, WITHOUT 12/05/2018 JARED ODELL APRN Ot I10 ESSENTIAL (PRIMARY) HYPERTENSION 12/05/2018 JARED ODELL APRN Ot I25.2 OLD MYOCARDIAL INFARCTION 12/05/2018 JARED ODELL APRN Ot K21.9 GASTRO-ESOPHAGEAL REFLUX DISEASE WITHOUT 12/05/2018 JARED ODELL APRN Ot R07.89 OTHER CHEST PAIN 12/05/2018 JARED ODELL APRN Ot 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 12/05/2018 JARED ODELL APRN Ot Z85.3 PERSONAL HISTORY OF MALIGNANT NEOPLASM O 12/05/2018 JARED ODELL APRN Ot Z88.0 ALLERGY STATUS TO PENICILLIN 12/05/2018 JARED ODELL APRN Ot Z88.1 ALLERGY STATUS TO OTHER ANTIBIOTIC AGENT 12/05/2018 JARED ODELL APRN Ot Z88.5 ALLERGY STATUS TO NARCOTIC AGENT STATUS 12/05/2018 JARED ODELL APRN Ot Z88.8 ALLERGY STATUS TO OTH DRUG/MEDS/BIOL SUB 12/05/2018 JARED ODELL APRN Ot Z90.710 ACQUIRED ABSENCE OF BOTH CERVIX AND UTER 12/05/2018 JARED ODELL APRN Ot Z90.89 ACQUIRED ABSENCE OF OTHER ORGANS 12/05/2018 JARED ODELL APRN Ot Z95.5 PRESENCE OF CORONARY ANGIOPLASTY IMPLANT 12/05/2018 JARED ODELL APRN Ot Z96.652 PRESENCE OF LEFT ARTIFICIAL KNEE JOINT 12/05/2018 JARED ODELL APRN Ot Z99.2 DEPENDENCE ON RENAL DIALYSIS 12/08/2018 JARED ODELL APRN Ot E11.9 TYPE 2 DIABETES MELLITUS WITHOUT COMPLIC 12/08/2018 JARED ODELL APRN Ot E78.00 PURE HYPERCHOLESTEROLEMIA, UNSPECIFIED 12/08/2018 JARED ODELL APRN Ot G43.909 MIGRAINE, UNSP, NOT INTRACTABLE, WITHOUT 12/08/2018 JARED ODELL APRN Ot I10 ESSENTIAL (PRIMARY) HYPERTENSION 12/08/2018 JARED ODELL APRN Ot I25.2 OLD MYOCARDIAL INFARCTION 12/08/2018 JARED ODELL APRN Ot K21.9 GASTRO-ESOPHAGEAL REFLUX DISEASE WITHOUT 12/08/2018 JARED ODELL APRN Ot R07.89 OTHER CHEST PAIN 12/08/2018 JARED ODELL APRN Ot Z79.84 [facility] (CURRENT) USE OF ORAL HYPOGLYC 12/08/2018 JARED ODELL APRN Ot Z85.3 PERSONAL HISTORY OF MALIGNANT NEOPLASM O 12/08/2018 JARED ODELL APRN Ot Z88.0 ALLERGY STATUS TO PENICILLIN 12/08/2018 JARED ODELL APRN Ot Z88.1 ALLERGY STATUS TO OTHER ANTIBIOTIC AGENT 12/08/2018 JARED ODELL APRN Ot Z88.5 ALLERGY STATUS TO NARCOTIC AGENT STATUS 12/08/2018 JARED ODELL APRN Ot Z88.8 ALLERGY STATUS TO OT DRUG/MEDS/BIOL SUB 12/08/2018 JARED ODELL APRN Ot Z90.710 ACQUIRED ABSENCE OF BOTH CERVIX AND UTER 12/08/2018 JARED ODELL APRN Ot Z90.89 ACQUIRED ABSENCE OF OTHER ORGANS 12/08/2018 JARED ODELL APRN Ot Z95.5 PRESENCE OF CORONARY ANGIOPLASTY IMPLANT 12/08/2018 JARED ODELL APRN Ot Z96.652 PRESENCE OF LEFT ARTIFICIAL KNEE JOINT 12/08/2018 JARED ODELL APRN Ot Z99.2 DEPENDENCE ON RENAL DIALYSIS 12/08/2018 JARED ODELL APRN Ot E11.9 TYPE 2 DIABETES MELLITUS WITHOUT COMPLIC 12/08/2018 JARED ODELL APRN Ot E78.00 PURE HYPERCHOLESTEROLEMIA, UNSPECIFIED 12/08/2018 JARED ODELL APRN Ot G43.909 MIGRAINE, UNSP, NOT INTRACTABLE, WITHOUT 12/08/2018 JARED ODELL APRN Ot I10 ESSENTIAL (PRIMARY) HYPERTENSION 12/08/2018 JARED ODELL APRN Ot I25.2 OLD MYOCARDIAL INFARCTION 12/08/2018 JARED ODELL APRN Ot K21.9 GASTRO-ESOPHAGEAL REFLUX DISEASE WITHOUT 12/08/2018 JARED ODELL APRN Ot R07.89 OTHER CHEST PAIN 12/08/2018 JARED ODELL APRN Ot Z79.84 [facility] (CURRENT) USE OF ORAL HYPOGLYC 12/08/2018 JARED ODELL APRN Ot Z85.3 PERSONAL HISTORY OF MALIGNANT NEOPLASM O 12/08/2018 JARED ODELL APRN Ot Z88.0 ALLERGY STATUS TO PENICILLIN 12/08/2018 JARED ODELL APRN Ot Z88.1 ALLERGY STATUS TO OTHER ANTIBIOTIC AGENT 12/08/2018 JARED ODELL APRN Ot Z88.5 ALLERGY STATUS TO NARCOTIC AGENT STATUS 12/08/2018 JARED ODELL APRN Ot Z88.8 ALLERGY STATUS TO OTH DRUG/MEDS/BIOL SUB 12/08/2018 JARED ODELL APRN Ot Z90.710 ACQUIRED ABSENCE OF BOTH CERVIX AND UTER 12/08/2018 JARED ODELL APRN Ot Z90.89 ACQUIRED ABSENCE OF OTHER ORGANS 12/08/2018 JARED ODELL APRN Ot Z95.5 PRESENCE OF CORONARY ANGIOPLASTY IMPLANT 12/08/2018 JARED ODELL APRN Ot Z96.652 PRESENCE OF LEFT ARTIFICIAL KNEE JOINT 12/08/2018 JARED ODELL APRN Ot Z99.2 DEPENDENCE ON RENAL DIALYSIS 12/10/2018 BARRETT VILLANUEVA APRN Ot R25.2 CRAMP AND SPASM 12/10/2018 BARRETT VILLANUEVA APRN Ot G47.62 SLEEP RELATED LEG CRAMPS 12/10/2018 BARRETT VILLANUEVA APRN Ot M19.90 UNSPECIFIED OSTEOARTHRITIS, UNSPECIFIED 12/10/2018 BARRETT VILLANUEVA APRN Ot M25.50 PAIN IN UNSPECIFIED JOINT 12/10/2018 ABBI GUTIERREZ MD Ot E07.9 DISORDER OF THYROID, UNSPECIFIED 12/10/2018 ABBI GUTIERREZ MD Ot E66.9 OBESITY, UNSPECIFIED 12/10/2018 ABBI GUTIERREZ MD Ot I25.10 ATHSCL HEART DISEASE OF [place] CORONARY 12/10/2018 BRENDA DOSHI, ABBI Peter Ot I82.409 ACUTE EMBOLISM AND THOMBOS UNSP DEEP VN 12/10/2018 ABBI GUTIERREZ MD Ot I85.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 BLEEDING 12/12/2018 BARRETT VILLANUEVA APRN Ot A08.4 VIRAL INTESTINAL INFECTION, UNSPECIFIED 12/12/2018 BARRETT VILLANUEVA APRN Ot 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 12/12/2018 BARRETT VILLANUEVA APRN Ot N18.3 CHRONIC KIDNEY DISEASE, STAGE 3 (MODERAT 12/12/2018 BARRETT VILLANUEVA APRN Ot Z86.2 PRSNL HISTORY OF DIS OF THE BLD/BLD-FORM 12/14/2018 BARRETT VILLANUEVA APRN Ot R25.2 CRAMP AND SPASM 12/15/2018 BARRETT VILLANUEVA APRN Ot I83.813 VARICOSE VEINS OF BILATERAL LOWER EXTREM 12/15/2018 BARRETT VILLANUEVA APRN Ot Z12.31 ENCNTR SCREEN MAMMOGRAM FOR MALIGNANT NE 12/15/2018 BARRETT VILLANUEVA APRN Ot 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 12/15/2018 BARRETT VILLANUEVA APRN Ot N18.9 CHRONIC KIDNEY DISEASE, UNSPECIFIED 12/15/2018 BARRETT VILLANUEVA APRN Ot J98.6 DISORDERS OF DIAPHRAGM 12/15/2018 BARRETT VILLANUEVA APRN Ot N28.1 CYST OF KIDNEY, ACQUIRED 12/15/2018 BARRETT VILLANUEVA APRN Ot N64.4 MASTODYNIA 12/15/2018 BARRETT VILLANUEVA APRN Ot R05 COUGH 12/15/2018 BARRETT VILLANUEVA APRN Ot R10.811 RIGHT UPPER QUADRANT ABDOMINAL TENDERNES 12/15/2018 BARRETT VILLANUEVA APRN Ot R11.2 NAUSEA WITH VOMITING, UNSPECIFIED 12/15/2018 BARRETT VILLANUEVA APRN Ot Z85.3 PERSONAL HISTORY OF MALIGNANT NEOPLASM O 12/15/2018 BARRETT VILLANUEVA APRN Ot N26.1 ATROPHY OF KIDNEY (TERMINAL) 12/15/2018 BARRETT VILLANUEVA APRN Ot N28.1 CYST OF KIDNEY, ACQUIRED 12/15/2018 BARRETT VILLANUEVA APRN Ot R93.421 ABNORMAL RADIOLOGIC FINDINGS ON DX IMAGI 12/15/2018 BARRETT VILLANUEVA APRN Ot R93.422 ABNORMAL RADIOLOGIC FINDINGS ON DX IMAGI 12/15/2018 BARRETT VILLANUEVA APRN Ot C50.912 MALIGNANT NEOPLASM OF UNSPECIFIED SITE O 12/15/2018 BARRETT VILLANUEVA APRN Ot M85.89 OTH DISRD OF BONE DENSITY AND STRUCTURE, 12/15/2018 BARRETT VILLANUEVA APRN Ot N62 HYPERTROPHY OF BREAST 12/15/2018 BARRETT VILLANUEVA APRN, Ot Z13.820 ENCOUNTER FOR SCREENING FOR OSTEOPOROSIS 12/15/2018 BARRETT VILLANUEVA APRN Ot Z45.2 ENCOUNTER FOR ADJUSTMENT AND MANAGEMENT 12/15/2018 CARISSA BARNES DO, Ot 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 W/O MYELOPATHY OR RADICULOPA 12/15/2018 CARISSA BARNES DO, Ot 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, 12/15/2018 CARISSA BARNES DO, Ot M54.12 RADICULOPATHY, CERVICAL REGION 12/15/2018 BARRETT VILLANUEVA APRN Ot A08.4 VIRAL INTESTINAL INFECTION, UNSPECIFIED 12/15/2018 BARRETT VILLANUEVA APRN Ot 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 12/15/2018 BARRETT VILLANUEVA APRN Ot N18.3 CHRONIC KIDNEY DISEASE, STAGE 3 (MODERAT 12/15/2018 BARRETT VILLANUEVA APRN Ot Z86.2 PRSNL HISTORY OF DIS OF THE BLD/BLD-FORM 12/15/2018 NABEEL DAIGLE MD Ot M75.101 UNSP ROTATR-CUFF TEAR/RUPTR OF RIGHT [place]AD[place] 12/15/2018 NABEEL DAIGLE MD Ot S43.001A UNSPECIFIED SUBLUXATION OF RIGHT [place]OU[place]DE 12/15/2018 BARRETT VILLANUEVA APRN Ot K22.4 DYSKINESIA OF ESOPHAGUS 12/15/2018 BARRETT VILLANUEVA APRN Ot 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, ACQUIRED 12/15/2018 BARRETT VILLANUEVA APRN Ot Z95.828 PRESENCE OF OTHER VASCULAR IMPLANTS AND 12/15/2018 BARRETT VILLANUEVA APRN Ot G47.62 SLEEP RELATED LEG CRAMPS 12/15/2018 BARRETT VILLANUEVA APRN Ot M19.90 UNSPECIFIED OSTEOARTHRITIS, UNSPECIFIED 12/15/2018 BARRETT VILLANUEVA APRN Ot M25.50 PAIN IN UNSPECIFIED JOINT 12/15/2018 ABBI GUTIERREZ MD Ot E07.9 DISORDER OF THYROID, UNSPECIFIED 12/15/2018 ABBI GUTIERREZ MD, Ot E66.9 OBESITY, UNSPECIFIED 12/15/2018 ABBI GUTIERREZ MD, Ot I25.10 ATHSCL HEART DISEASE OF [place] CORONARY 12/15/2018 ABBI GUTIERREZ MD Ot I82.409 ACUTE EMBOLISM AND THOMBOS UNSP DEEP VN 12/15/2018 ABBI GUTIERREZ MD Ot I85.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 BLEEDING 12/15/2018 BARRETT VILLANUEVA APRN Ot R25.2 CRAMP AND SPASM 12/17/2018 BARRETT VILLANUEVA APRN Ot K22.4 DYSKINESIA OF ESOPHAGUS 12/17/2018 BARRETT VILLANUEVA APRN Ot 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, ACQUIRED 12/17/2018 BARRETT VILLANUEVA APRN Ot Z95.828 PRESENCE OF OTHER VASCULAR IMPLANTS AND 12/18/2018 ABBI GUTIERREZ MD, Ot E07.9 DISORDER OF THYROID, UNSPECIFIED 12/18/2018 ABBI GUTIERREZ MD, Ot E66.9 OBESITY, UNSPECIFIED 12/18/2018 ABBI GUTIERREZ MD, Ot I25.10 ATHSCL HEART DISEASE OF [place] CORONARY 12/18/2018 ABBI GUTIERREZ MD Ot I85.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 BLEEDING 12/18/2018 ABBI GUTIERREZ MD Ot Z68.30 BODY MASS INDEX (BMI) 30.0-30.9, ADULT 12/18/2018 NABEEL DAIGLE MD Ot M75.101 UNSP ROTATR-CUFF TEAR/RUPTR OF RIGHT [place] 12/18/2018 NABEEL DAIGLE MD Ot S43.001A UNSPECIFIED SUBLUXATION OF RIGHT [place] 12/19/2018 BARRETT VILLANUEVA APRN Ot Z45.2 ENCOUNTER FOR ADJUSTMENT AND MANAGEMENT 12/29/2018 BARRETT VILLANUEVA APRN Ot Z45.2 ENCOUNTER FOR ADJUSTMENT AND MANAGEMENT 12/29/2018 BARRETT VILLANUEVA APRN Ot Z45.2 ENCOUNTER FOR ADJUSTMENT AND MANAGEMENT 01/02/2019 BIJAN LINARES MD Ot 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 01/02/2019 BIJAN LINARES MD Ot Z53.8 PROCEDURE AND TREATMENT NOT CARRIED OUT 01/02/2019 BARRETT VILLANUEVA APRN Ot R25.2 CRAMP AND SPASM 01/02/2019 ABBI GUTIERREZ MD Ot E07.9 DISORDER OF THYROID, UNSPECIFIED 01/02/2019 ABBI GUTIERREZ MD Ot E66.9 OBESITY, UNSPECIFIED 01/02/2019 ABBI GUTIERREZ MD Ot I25.10 ATHSCL HEART DISEASE OF [place] CORONARY 01/02/2019 ABBI GUTIERREZ MD Ot I82.409 ACUTE EMBOLISM AND THOMBOS UNSP DEEP VN 01/02/2019 ABBI GUTIERREZ MD Ot I85.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 BLEEDING 01/02/2019 BARRETT VILLANUEVA APRN Ot K22.4 DYSKINESIA OF ESOPHAGUS 01/02/2019 BARRETT VILLANUEVA APRN Ot 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, ACQUIRED 01/02/2019 BARRETT VILLANUEVA APRN Ot Z95.828 PRESENCE OF OTHER VASCULAR IMPLANTS AND 01/04/2019 BARRETT VILLANUEVA APRN Ot Z45.2 ENCOUNTER FOR ADJUSTMENT AND MANAGEMENT 01/05/2019 BARRETT VILLANUEVA APRN Ot Z45.2 ENCOUNTER FOR ADJUSTMENT AND MANAGEMENT 01/05/2019 BARRETT VILLANUEVA APRN Ot 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2 ENCOUNTER FOR ADJUSTMENT AND MANAGEMENT 01/12/2019 ABBI GUTIERREZ MD Ot E07.9 DISORDER OF THYROID, UNSPECIFIED 01/12/2019 ABBI GUTIERREZ MD Ot E66.9 OBESITY, UNSPECIFIED 01/12/2019 ABBI GUTIERREZ MD Ot I25.10 ATHSCL HEART DISEASE OF [place] CORONARY 01/12/2019 ABBI GUTIERREZ MD Ot I85.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 BLEEDING 01/12/2019 ABBI GUTIERREZ MD Ot Z68.30 BODY MASS INDEX (BMI) 30.0-30.9, ADULT 01/15/2019 ABBI GUTIERREZ MD Ot E07.9 DISORDER OF THYROID, UNSPECIFIED 01/15/2019 ABBI GUTIERREZ MD Ot E66.9 OBESITY, UNSPECIFIED 01/15/2019 ABBI GUTIERREZ MD Ot I25.10 ATHSCL HEART DISEASE OF [place] CORONARY 01/15/2019 ABBI GUTIERREZ MD Ot I82.409 ACUTE EMBOLISM AND THOMBOS UNSP DEEP VN 01/15/2019 ABBI GUTIERREZ MD Ot I85.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 BLEEDING 01/21/2019 BARRETT VILLANUEVA APRN Ot 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 01/21/2019 BARRETT VILLANUEVA APRN Ot N18.3 CHRONIC KIDNEY DISEASE, STAGE 3 (MODERAT 01/26/2019 BARRETT VILLANUEVA APRN Ot A08.4 VIRAL INTESTINAL INFECTION, UNSPECIFIED 01/26/2019 BARRETT VILLANUEVA APRN Ot 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 01/26/2019 BARRETT VILLANUEVA APRN Ot N18.3 CHRONIC KIDNEY DISEASE, STAGE 3 (MODERAT 01/26/2019 BARRETT VILLANUEVA APRN Ot Z86.2 PRSNL HISTORY OF DIS OF THE BLD/BLD-FORM 01/26/2019 BARRETT VILLANUEVA APRN, Ot Z45.2 ENCOUNTER FOR ADJUSTMENT AND MANAGEMENT 01/26/2019 BARRETT VILLANUEVA APRN Ot Z45.2 ENCOUNTER FOR ADJUSTMENT AND MANAGEMENT 01/26/2019 BIJAN LINARES MD Ot 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 01/26/2019 BIJAN LINARES MD Ot Z53.8 PROCEDURE AND TREATMENT NOT CARRIED OUT 01/27/2019 BARRETT VILLANUEVA APRN Ot I83.813 VARICOSE VEINS OF BILATERAL LOWER EXTREM 01/27/2019 BARRETT VILLANUEVA APRN Ot Z12.31 ENCNTR SCREEN MAMMOGRAM FOR MALIGNANT NE 01/27/2019 BARRETT VILLANUEVA APRN Ot 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 01/27/2019 BARRETT VILLANUEVA APRN Ot N18.9 CHRONIC KIDNEY DISEASE, UNSPECIFIED 01/27/2019 BARRETT VILLANUEVA APRN Ot J98.6 DISORDERS OF DIAPHRAGM 01/27/2019 BARRETT VILLANUEVA APRN Ot N28.1 CYST OF KIDNEY, ACQUIRED 01/27/2019 BARRETT VILLANUEVA APRN Ot N64.4 MASTODYNIA 01/27/2019 BARRETT VILLANUEVA APRN Ot R05 COUGH 01/27/2019 BARRETT VILLANUEVA APRN Ot R10.811 RIGHT UPPER QUADRANT ABDOMINAL TENDERNES 01/27/2019 BARRETT VILLANUEVA APRN Ot R11.2 NAUSEA WITH VOMITING, UNSPECIFIED 01/27/2019 BARRETT VILLANUEVA APRN Ot Z85.3 PERSONAL HISTORY OF MALIGNANT NEOPLASM O 01/27/2019 BARRETT VILLANUEVA APRN Ot N26.1 ATROPHY OF KIDNEY (TERMINAL) 01/27/2019 BARRETT VILLANUEVA APRN Ot N28.1 CYST OF KIDNEY, ACQUIRED 01/27/2019 BARRETT VILLANUEVA APRN Ot R93.421 ABNORMAL RADIOLOGIC FINDINGS ON DX IMAGI 01/27/2019 BARRETT VILLANUEVA APRN Ot R93.422 ABNORMAL RADIOLOGIC FINDINGS ON DX IMAGI 01/27/2019 BARRETT VILLANUEVA APRN Ot C50.912 MALIGNANT NEOPLASM OF UNSPECIFIED SITE O 01/27/2019 BARRETT VILLANUEVA APRN Ot M85.89 OT DISRD OF BONE DENSITY AND STRUCTURE, 01/27/2019 BARRETT VILLANUEVA APRN Ot N62 HYPERTROPHY OF BREAST 01/27/2019 BARRETT VILLANUEVA APRN Ot Z13.820 ENCOUNTER FOR SCREENING FOR OSTEOPOROSIS 01/27/2019 CARISSA BARNES DO, Ot 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 W/O MYELOPATHY OR RADICULOPA 01/27/2019 CARISSA BARNES DO, Ot 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, 01/27/2019 CARISSA BARNES DO, Ot M54.12 RADICULOPATHY, CERVICAL REGION 01/27/2019 NABEEL DAIGLE MD Ot M75.101 UNSP ROTATR-CUFF TEAR/RUPTR OF RIGHT AMADOR 01/27/2019 NABEEL DAIGLE MD Ot S43.001A UNSPECIFIED SUBLUXATION OF RIGHT SHOULDE 01/27/2019 BARRETT VILLANUEVA APRN Ot K22.4 DYSKINESIA OF ESOPHAGUS 01/27/2019 BARRETT VILLANUEVA APRN Ot 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, ACQUIRED 01/27/2019 BARRETT VILLANUEVA APRN Ot Z95.828 PRESENCE OF OTHER VASCULAR IMPLANTS AND 01/27/2019 BARRETT VILLANUEVA APRN Ot G47.62 SLEEP RELATED LEG CRAMPS 01/27/2019 BARRETT VLILANUEVA APRN Ot M19.90 UNSPECIFIED OSTEOARTHRITIS, UNSPECIFIED 01/27/2019 BARRETT VILLANUEVA APRN Ot M25.50 PAIN IN UNSPECIFIED JOINT 01/27/2019 ABBI GUTIERREZ MD Ot E07.9 DISORDER OF THYROID, UNSPECIFIED 01/27/2019 ABBI GUTIERREZ MD, Ot E66.9 OBESITY, UNSPECIFIED 01/27/2019 ABBI GUTIERREZ MD, Ot I25.10 ATHSCL HEART DISEASE OF [place] CORONARY 01/27/2019 ABBI GUTIERREZ MD Ot I85.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 BLEEDING 01/27/2019 ABBI GUTIERREZ MD, Ot Z68.30 BODY MASS INDEX (BMI) 30.0-30.9, ADULT 01/27/2019 ABBI GUTIERREZ MD, Ot E07.9 DISORDER OF THYROID, UNSPECIFIED 01/27/2019 ABBI GUTIERREZ MD, Ot E66.9 OBESITY, UNSPECIFIED 01/27/2019 ABBI GUTIERREZ MD, Ot I25.10 ATHSCL HEART DISEASE OF [place] CORONARY 01/27/2019 ABBI GUTIERREZ MD, Ot I82.409 ACUTE EMBOLISM AND THOMBOS UNSP DEEP VN 01/27/2019 ABBI GUTIERREZ MD, Ot I85.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 BLEEDING 01/27/2019 BARRETT VILLANUEVA APRN, Ot R25.2 CRAMP AND SPASM 01/27/2019 BIJAN LINARES MD, Ot I82.409 ACUTE EMBOLISM AND THOMBOS UNSP DEEP VN 01/27/2019 BIJAN LINARES MD, Ot Z85.3 PERSONAL HISTORY OF MALIGNANT NEOPLASM O 01/27/2019 BIJAN LINARES MD Ot 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 01/27/2019 BIJAN LINARES MD Ot Z53.8 PROCEDURE AND TREATMENT NOT CARRIED OUT 01/27/2019 BARRETT VILLANUEVA APRN Ot 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 01/27/2019 BARRETT VILLANUEVA APRN Ot N18.3 CHRONIC KIDNEY DISEASE, STAGE 3 (MODERAT 01/27/2019 BARRETT VILLANUEVA APRN Ot Z45.2 ENCOUNTER FOR ADJUSTMENT AND MANAGEMENT 01/27/2019 BARRETT VILLANUEVA APRN Ot A08.4 VIRAL INTESTINAL INFECTION, UNSPECIFIED 01/27/2019 BARRETT VILLANUEVA APRN Ot 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 01/27/2019 BARRETT VILLANUEVA APRN Ot N18.3 CHRONIC KIDNEY DISEASE, STAGE 3 (MODERAT 01/27/2019 BARRETT VILLANUEVA APRN Ot Z86.2 PRSNL HISTORY OF DIS OF THE BLD/BLD-FORM 01/27/2019 BARRETT VILLANUEVA APRN Ot I83.813 VARICOSE VEINS OF BILATERAL LOWER EXTREM 01/27/2019 BARRETT VILLANUEVA APRN Ot Z12.31 ENCNTR SCREEN MAMMOGRAM FOR MALIGNANT NE 01/27/2019 BARRETT VILLANUEVA APRN Ot 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 01/27/2019 BARRETT VILLANUEVA APRN Ot N18.9 CHRONIC KIDNEY DISEASE, UNSPECIFIED 01/27/2019 BARRETT VILLANUEVA APRN Ot J98.6 DISORDERS OF DIAPHRAGM 01/27/2019 BARRETT VILLANUEVA APRN Ot N28.1 CYST OF KIDNEY, ACQUIRED 01/27/2019 BARRETT VILLANUEVA APRN Ot N64.4 MASTODYNIA 01/27/2019 BARRETT VILLANUEVA APRN Ot R05 COUGH 01/27/2019 BARRETT VILLANUEVA APRN Ot R10.811 RIGHT UPPER QUADRANT ABDOMINAL TENDERNES 01/27/2019 BARRETT VILLANUEVA APRN Ot R11.2 NAUSEA WITH VOMITING, UNSPECIFIED 01/27/2019 BARRETT VILLANUEVA APRN Ot Z85.3 PERSONAL HISTORY OF MALIGNANT NEOPLASM O 01/27/2019 BARRETT VILLANUEVA APRN Ot N26.1 ATROPHY OF KIDNEY (TERMINAL) 01/27/2019 BARRETT VILLANUEVA APRN Ot N28.1 CYST OF KIDNEY, ACQUIRED 01/27/2019 BARRETT VILLANUEVA APRN Ot R93.421 ABNORMAL RADIOLOGIC FINDINGS ON DX IMAGI 01/27/2019 BARRETT VILLANUEVA APRN Ot R93.422 ABNORMAL RADIOLOGIC FINDINGS ON DX IMAGI 01/27/2019 BARRETT VILLANUEVA APRN Ot C50.912 MALIGNANT NEOPLASM OF UNSPECIFIED SITE O 01/27/2019 BARRETT VILLANUEVA APRN Ot M85.89 OTH DISRD OF BONE DENSITY AND STRUCTURE, 01/27/2019 BARRETT VILLANUEVA APRN Ot N62 HYPERTROPHY OF BREAST 01/27/2019 BARRETT VILLANUEVA APRN Ot Z13.820 ENCOUNTER FOR SCREENING FOR OSTEOPOROSIS 01/27/2019 CARISSA BARNES DO, Ot 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 W/O MYELOPATHY OR RADICULOPA 01/27/2019 CARISSA BARNES DO, Ot 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, 01/27/2019 CARISSA BARNES DO, Ot M54.12 RADICULOPATHY, CERVICAL REGION 01/27/2019 NABEEL DAIGLE MD Ot M75.101 UNSP ROTATR-CUFF TEAR/RUPTR OF RIGHT AMADOR 01/27/2019 NABEEL DAIGLE MD Ot S43.001A UNSPECIFIED SUBLUXATION OF RIGHT SHOULDE 01/27/2019 BARRETT VILLANUEVA APRN Ot K22.4 DYSKINESIA OF ESOPHAGUS 01/27/2019 BARRETT VILLANUEVA APRN Ot 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, ACQUIRED 01/27/2019 BARRETT VILLANUEVA APRN Ot Z95.828 PRESENCE OF OTHER VASCULAR IMPLANTS AND 01/27/2019 BARRETT VILLANUEVA APRN Ot G47.62 SLEEP RELATED LEG CRAMPS 01/27/2019 BARRETT VILLANUEVA APRN Ot M19.90 UNSPECIFIED OSTEOARTHRITIS, UNSPECIFIED 01/27/2019 BRARETT VILLANUEVA APRN Ot M25.50 PAIN IN UNSPECIFIED JOINT 01/27/2019 ABBI GUTIERREZ MD Ot E07.9 DISORDER OF THYROID, UNSPECIFIED 01/27/2019 ABBI GUTIERREZ MD Ot E66.9 OBESITY, UNSPECIFIED 01/27/2019 ABBI GUTIERREZ MD Ot I25.10 ATHSCL HEART DISEASE OF [place] CORONARY 01/27/2019 ABBI GUTIERREZ MD Ot I85.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 BLEEDING 01/27/2019 ABBI GUTIERREZ MD Ot Z68.30 BODY MASS INDEX (BMI) 30.0-30.9, ADULT 01/27/2019 ABBI GUTIERREZ MD Ot E07.9 DISORDER OF THYROID, UNSPECIFIED 01/27/2019 ABBI GUTIERREZ MD Ot E66.9 OBESITY, UNSPECIFIED 01/27/2019 ABBI GUTIERREZ MD Ot I25.10 ATHSCL HEART DISEASE OF [place] CORONARY 01/27/2019 ABBI GUTIERREZ MD Ot I82.409 ACUTE EMBOLISM AND THOMBOS UNSP DEEP VN 01/27/2019 ABBI GUTIERREZ MD Ot I85.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 BLEEDING 01/27/2019 BARRETT VILLANUEVA APRN Ot R25.2 CRAMP AND SPASM 01/27/2019 BIJAN LINARES MD Ot I82.409 ACUTE EMBOLISM AND THOMBOS UNSP DEEP VN 01/27/2019 BIJAN LINARES MD Ot Z85.3 PERSONAL HISTORY OF MALIGNANT NEOPLASM O 01/27/2019 BIJAN LINARES MD Ot 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 01/27/2019 BIJAN LINARES MD Ot Z53.8 PROCEDURE AND TREATMENT NOT CARRIED OUT 01/27/2019 BARRETT VILLANUEVA APRN Ot 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 01/27/2019 BARRETT VILLANUEVA APRN Ot N18.3 CHRONIC KIDNEY DISEASE, STAGE 3 (MODERAT 01/27/2019 BARRETT VILLANUEVA APRN Ot Z45.2 ENCOUNTER FOR ADJUSTMENT AND MANAGEMENT 01/27/2019 BARRETT VILLANUEVA APRN Ot A08.4 VIRAL INTESTINAL INFECTION, UNSPECIFIED 01/27/2019 BARRETT VILLANUEVA APRN Ot 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 01/27/2019 BARRETT VILLANUEVA APRN Ot N18.3 CHRONIC KIDNEY DISEASE, STAGE 3 (MODERAT 01/27/2019 BARRETT VILLANUEVA APRN Ot Z86.2 PRSNL HISTORY OF DIS OF THE BLD/BLD-FORM 01/28/2019 ABBI GUTIERREZ MD Ot E07.9 DISORDER OF THYROID, UNSPECIFIED 01/28/2019 ABBI GUTIERREZ MD Ot E66.9 OBESITY, UNSPECIFIED 01/28/2019 ABBI GUTIERREZ MD Ot I25.10 ATHSCL HEART DISEASE OF [place] CORONARY 01/28/2019 ABBI GUTIERREZ MD Ot I85.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 BLEEDING 01/28/2019 ABBI GUTIERREZ MD Ot Z68.30 BODY MASS INDEX (BMI) 30.0-30.9, ADULT 01/28/2019 BARRETT VILLANUEVA APRN Ot 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 01/28/2019 BARRETT VILLANUEVA APRN Ot N18.3 CHRONIC KIDNEY DISEASE, STAGE 3 (MODERAT 01/28/2019 BARRETT VILLANUEVA APRN Ot R82.90 UNSPECIFIED ABNORMAL FINDINGS IN URINE 02/01/2019 RICH, BARRETT J BODY ROLLING MACHINE TENDER Ot A08.4 VIRAL INTESTINAL INFECTION, UNSPECIFIED 02/01/2019 BARRETT VILLANUEVA APRN Ot 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 02/01/2019 BARRETT VILLANUEVA APRN Ot N18.3 CHRONIC KIDNEY DISEASE, STAGE 3 (MODERAT 02/01/2019 BARRETT VILLANUEVA BODY ROLLING MACHINE TENDER Ot Z86.2 PRSNL HISTORY OF DIS OF THE BLD/BLD-FORM 02/02/2019 BARRETT VILLANUEVA APRN Ot I83.813 VARICOSE VEINS OF BILATERAL LOWER EXTREM 02/02/2019 BARRETT VILLANUEVA APRN Ot Z12.31 ENCNTR SCREEN MAMMOGRAM FOR MALIGNANT NE 02/02/2019 BARRETT VILLANUEVA APRN Ot 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 02/02/2019 BARRETT VILLANUEVA APRN Ot N18.9 CHRONIC KIDNEY DISEASE, UNSPECIFIED 02/02/2019 BARRETT VILLANUEVA APRN Ot J98.6 DISORDERS OF DIAPHRAGM 02/02/2019 BARRETT VILLANUEVA APRN Ot N28.1 CYST OF KIDNEY, ACQUIRED 02/02/2019 BARRETT VILLANUEVA APRN Ot N64.4 MASTODYNIA 02/02/2019 BARRETT VILLANUEVA APRN Ot R05 COUGH 02/02/2019 BARRETT VILLANUEVA APRN Ot R10.811 RIGHT UPPER QUADRANT ABDOMINAL TENDERNES 02/02/2019 BARRETT VILLANUEVA APRN Ot R11.2 NAUSEA WITH VOMITING, UNSPECIFIED 02/02/2019 BARRETT VILLANUEVA APRN Ot Z85.3 PERSONAL HISTORY OF MALIGNANT NEOPLASM O 02/02/2019 BARRETT VILLANUEVA APRN Ot N26.1 ATROPHY OF KIDNEY (TERMINAL) 02/02/2019 BARRETT VILLANUEVA APRN Ot N28.1 CYST OF KIDNEY, ACQUIRED 02/02/2019 BARRETT VILLANUEVA BODY ROLLING MACHINE TENDER Ot R93.421 ABNORMAL RADIOLOGIC FINDINGS ON DX IMAGI 02/02/2019 BARRETT VILLANUEVA APRN Ot R93.422 ABNORMAL RADIOLOGIC FINDINGS ON DX IMAGI 02/02/2019 BARRETT VILLANUEVA APRN Ot C50.912 MALIGNANT NEOPLASM OF UNSPECIFIED SITE O 02/02/2019 BARRETT VILLANUEVA APRN Ot M85.89 OTH DISRD OF BONE DENSITY AND STRUCTURE, 02/02/2019 BARRETT VILLANUEVA APRN Ot N62 HYPERTROPHY OF BREAST 02/02/2019 BARRETT VILLANUEVA APRN Ot Z13.820 ENCOUNTER FOR SCREENING FOR OSTEOPOROSIS 02/02/2019 CARISSA BARNES DO, Ot 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 W/O MYELOPATHY OR RADICULOPA 02/02/2019 CARISSA BARNES DO, Ot 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, 02/02/2019 CARISSA BARNES DO, Ot M54.12 RADICULOPATHY, CERVICAL REGION 02/02/2019 NABEEL DAIGLE MD Ot M75.101 UNSP ROTATR-CUFF TEAR/RUPTR OF RIGHT AMADOR 02/02/2019 NABEEL DAIGLE MD Ot S43.001A UNSPECIFIED SUBLUXATION OF RIGHT SHOULDE 02/02/2019 BARRETT VILLANUEVA APRN Ot K22.4 DYSKINESIA OF ESOPHAGUS 02/02/2019 BARRETT VILLANUEVA APRN Ot 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, ACQUIRED 02/02/2019 BARRETT VILLANUEVA APRN Ot Z95.828 PRESENCE OF OTHER VASCULAR IMPLANTS AND 02/02/2019 BARRETT VILLANUEVA APRN Ot G47.62 SLEEP RELATED LEG CRAMPS 02/02/2019 BARRETT VILLANUEVA APRN Ot M19.90 UNSPECIFIED OSTEOARTHRITIS, UNSPECIFIED 02/02/2019 BARRETT VILLANUEVA APRN Ot M25.50 PAIN IN UNSPECIFIED JOINT 02/02/2019 ABBI GUTIERREZ MD Ot E07.9 DISORDER OF THYROID, UNSPECIFIED 02/02/2019 ABBI GUTIERREZ MD Ot E66.9 OBESITY, UNSPECIFIED 02/02/2019 ABBI GUTIERREZ MD Ot I25.10 ATHSCL HEART DISEASE OF [place] CORONARY 02/02/2019 ABBI GUTIERREZ MD Ot I85.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 BLEEDING 02/02/2019 ABBI GUTIERREZ MD Ot Z68.30 BODY MASS INDEX (BMI) 30.0-30.9, ADULT 02/02/2019 ABBI GUTIERREZ MD Ot E07.9 DISORDER OF THYROID, UNSPECIFIED 02/02/2019 ABBI GUTIERREZ MD Ot E66.9 OBESITY, UNSPECIFIED 02/02/2019 ABBI GUTIERREZ MD Ot I25.10 ATHSCL HEART DISEASE OF [place] CORONARY 02/02/2019 ABBI GUTIERREZ MD Ot I82.409 ACUTE EMBOLISM AND THOMBOS UNSP DEEP VN 02/02/2019 ABBI GUTIERREZ MD Ot I85.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 BLEEDING 02/02/2019 BARRETT VILLANUEVA APRN Ot R25.2 CRAMP AND SPASM 02/02/2019 BIJAN LINARES MD Ot I82.409 ACUTE EMBOLISM AND THOMBOS UNSP DEEP VN 02/02/2019 BIJAN LINARES MD Ot Z85.3 PERSONAL HISTORY OF MALIGNANT NEOPLASM O 02/02/2019 IBJAN LINARES MD Ot 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 02/02/2019 BIJAN LINARES MD Ot Z53.8 PROCEDURE AND TREATMENT NOT CARRIED OUT 02/02/2019 BARRETT VILLANUEVA APRN Ot 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 02/02/2019 BARRETT VILLANUEVA APRN Ot N18.3 CHRONIC KIDNEY DISEASE, STAGE 3 (MODERAT 02/02/2019 BARRETT VILLANUEVA APRN Ot Z45.2 ENCOUNTER FOR ADJUSTMENT AND MANAGEMENT 02/02/2019 BARRETT VILLANUEVA APRN Ot 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 02/02/2019 BARRETT VILLANUEVA APRN Ot N18.3 CHRONIC KIDNEY DISEASE, STAGE 3 (MODERAT 02/02/2019 BARRETT VILLANUEVA APRN Ot R82.90 UNSPECIFIED ABNORMAL FINDINGS IN URINE 02/02/2019 BARRETT VILLANUEVA APRN Ot A08.4 VIRAL INTESTINAL INFECTION, UNSPECIFIED 02/02/2019 BARRETT VILLANUEVA APRN Ot 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 02/02/2019 BARRETT VILLANUEVA APRN Ot N18.3 CHRONIC KIDNEY DISEASE, STAGE 3 (MODERAT 02/02/2019 BARRETT VILLANUEVA APRN Ot Z86.2 PRSNL HISTORY OF DIS OF THE BLD/BLD-FORM 02/11/2019 ARTURO GUERRERO APRN Ot N18.3 CHRONIC KIDNEY DISEASE, STAGE 3 (MODERAT 02/11/2019 VIJAY DOSHI, BIJAN Ot I82.409 ACUTE EMBOLISM AND THOMBOS UNSP DEEP VN 02/11/2019 BIJAN LINARES MD Ot Z85.3 PERSONAL HISTORY OF MALIGNANT NEOPLASM O 02/13/2019 ARTURO GUERRERO APRN Ot N18.3 CHRONIC KIDNEY DISEASE, STAGE 3 (MODERAT 02/17/2019 ARTURO GUERRERO APRN Ot 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 02/17/2019 ARTURO GUERRERO APRN Ot E78.5 HYPERLIPIDEMIA, UNSPECIFIED 02/17/2019 ARTURO GUERRERO APRN Ot I12.9 HYPERTENSIVE CHRONIC KIDNEY DISEASE W ST 02/17/2019 ARTURO GUERRERO APRN Ot I25.10 ATHSCL HEART DISEASE OF [place] CORONARY 02/17/2019 ARTURO GUERRERO APRN Ot 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, ACQUIRED 02/17/2019 ARTURO GUERRERO APRN Ot N18.3 CHRONIC KIDNEY DISEASE, STAGE 3 (MODERAT 02/17/2019 ARTURO GUERRERO APRN Ot N28.1 CYST OF KIDNEY, ACQUIRED 02/17/2019 BARRETT VILLANUEVA APRN Ot 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 02/17/2019 BARRETT VILLANUEVA APRN Ot N18.3 CHRONIC KIDNEY DISEASE, STAGE 3 (MODERAT 02/17/2019 BARRETT VILLANUEVA APRN Ot R82.90 UNSPECIFIED ABNORMAL FINDINGS IN URINE 02/23/2019 BARRETT VILLANUEVA APRN Ot Z45.2 ENCOUNTER FOR ADJUSTMENT AND MANAGEMENT 02/23/2019 BARRETT VILLANUEVA APRN Ot Z45.2 ENCOUNTER FOR ADJUSTMENT AND MANAGEMENT 02/23/2019 BIJAN LINARES MD Ot 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 02/23/2019 BIJAN LINARES MD Ot Z53.8 PROCEDURE AND TREATMENT NOT CARRIED OUT 02/24/2019 BARRETT VILLANUEVA APRN Ot I63.9 CEREBRAL INFARCTION, UNSPECIFIED 02/26/2019 BARRETT VILLANUEVA APRN Ot I63.9 CEREBRAL INFARCTION, UNSPECIFIED 02/27/2019 REUBEN WALSH MD Ot M19.041 PRIMARY OSTEOARTHRITIS, RIGHT HAND 02/27/2019 REUBEN WALSH MD, Ot M19.042 PRIMARY OSTEOARTHRITIS, LEFT HAND 02/27/2019 REUBEN WALSH MD Ot M19.071 PRIMARY OSTEOARTHRITIS, RIGHT ANKLE AND 02/27/2019 REUBEN WALSH MD, Ot M19.072 PRIMARY OSTEOARTHRITIS, LEFT ANKLE AND F 02/27/2019 REUBEN WALSH MD Ot Z11.59 ENCOUNTER FOR SCREENING FOR OTHER VIRAL 02/27/2019 REUBEN WALSH MD Ot Z79.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 02/27/2019 BIJAN LINARES MD Ot I82.409 ACUTE EMBOLISM AND THOMBOS UNSP DEEP VN 02/27/2019 BIJAN LINAERS MD Ot Z85.3 PERSONAL HISTORY OF MALIGNANT NEOPLASM O 03/03/2019 BIJAN LINARES MD Ot 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 03/03/2019 BIJAN LINARES MD Ot Z53.8 PROCEDURE AND TREATMENT NOT CARRIED OUT 03/13/2019 BARRETT VILLANUEVA APRN Ot I83.813 VARICOSE VEINS OF BILATERAL LOWER EXTREM 03/13/2019 BARRETT VILLANUEVA APRN Ot Z12.31 ENCNTR SCREEN MAMMOGRAM FOR MALIGNANT NE 03/13/2019 BARRETT VILLANUEVA APRN Ot 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 03/13/2019 BARRETT VILLANUEVA APRN Ot N18.9 CHRONIC KIDNEY DISEASE, UNSPECIFIED 03/13/2019 BARRETT VILLANUEVA APRN Ot J98.6 DISORDERS OF DIAPHRAGM 03/13/2019 BARRETT VILLANUEVA APRN Ot N28.1 CYST OF KIDNEY, ACQUIRED 03/13/2019 BARRETT VILLANUEVA APRN Ot N64.4 MASTODYNIA 03/13/2019 BARRETT VILLANUEVA APRN Ot R05 COUGH 03/13/2019 BARRETT VILLANUEVA APRN Ot R10.811 RIGHT UPPER QUADRANT ABDOMINAL TENDERNES 03/13/2019 BARRETT VILLANUEVA APRN Ot R11.2 NAUSEA WITH VOMITING, UNSPECIFIED 03/13/2019 BARRETT VILLANUEVA APRN Ot Z85.3 PERSONAL HISTORY OF MALIGNANT NEOPLASM O 03/13/2019 BARRETT VILLANUEVA APRN Ot N26.1 ATROPHY OF KIDNEY (TERMINAL) 03/13/2019 BARRETT VILLANUEVA APRN Ot N28.1 CYST OF KIDNEY, ACQUIRED 03/13/2019 BARRETT VILLANUEVA APRN Ot R93.421 ABNORMAL RADIOLOGIC FINDINGS ON DX IMAGI 03/13/2019 BARRETT VILLANUEVA APRN Ot R93.422 ABNORMAL RADIOLOGIC FINDINGS ON DX IMAGI 03/13/2019 BARRETT VILLANUEVA APRN Ot C50.912 MALIGNANT NEOPLASM OF UNSPECIFIED SITE O 03/13/2019 BARRETT VILLANUEVA APRN Ot M85.89 OTH DISRD OF BONE DENSITY AND STRUCTURE, 03/13/2019 BARRETT VILLANUEVA APRN Ot N62 HYPERTROPHY OF BREAST 03/13/2019 BARRETT VILLANUEVA APRN Ot Z13.820 ENCOUNTER FOR SCREENING FOR OSTEOPOROSIS 03/13/2019 CARISSA BARNES DO Ot 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 W/O MYELOPATHY OR RADICULOPA 03/13/2019 CARISSA BARNES DO Ot 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, 03/13/2019 CARISSA BARNES DO, Ot M54.12 RADICULOPATHY, CERVICAL REGION 03/13/2019 NABEEL DAIGLE MD Ot M75.101 UNSP ROTATR-CUFF TEAR/RUPTR OF RIGHT [place]ADOR 03/13/2019 NABEEL DAIGLE MD Ot S43.001A UNSPECIFIED SUBLUXATION OF RIGHT SHOULDE 03/13/2019 BARRETT VILLANUEVA APRN Ot K22.4 DYSKINESIA OF ESOPHAGUS 03/13/2019 BARRETT VILLANUEVA APRN Ot 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, ACQUIRED 03/13/2019 BARRETT VILLANUEVA APRN Ot Z95.828 PRESENCE OF OTHER VASCULAR IMPLANTS AND 03/13/2019 BARRETT VILLANUEVA APRN Ot G47.62 SLEEP RELATED LEG CRAMPS 03/13/2019 BARRETT VILLANUEVA APRN Ot M19.90 UNSPECIFIED OSTEOARTHRITIS, UNSPECIFIED 03/13/2019 BARRETT VILLANUEVA APRN Ot M25.50 PAIN IN UNSPECIFIED JOINT 03/13/2019 ABBI GUTIERREZ MD Ot E07.9 DISORDER OF THYROID, UNSPECIFIED 03/13/2019 ABBI GUTIERREZ MD Ot E66.9 OBESITY, UNSPECIFIED 03/13/2019 ABBI GUTIERREZ MD Ot I25.10 ATHSCL HEART DISEASE OF [place] CORONARY 03/13/2019 ABBI GUTIERREZ MD Ot I85.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 BLEEDING 03/13/2019 ABBI GUTIERREZ MD Ot Z68.30 BODY MASS INDEX (BMI) 30.0-30.9, ADULT 03/13/2019 ABBI GUTIERREZ MD, Ot E07.9 DISORDER OF THYROID, UNSPECIFIED 03/13/2019 ABBI GUTIERREZ MD, Ot E66.9 OBESITY, UNSPECIFIED 03/13/2019 ABBI GUTIERREZ MD Ot I25.10 ATHSCL HEART DISEASE OF [place] CORONARY 03/13/2019 ABBI GUTIERREZ MD Ot I82.409 ACUTE EMBOLISM AND THOMBOS UNSP DEEP VN 03/13/2019 ABBI GUTIERREZ MD, Ot I85.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 BLEEDING 03/13/2019 BARRETT VILLANUEVA APRN Ot R25.2 CRAMP AND SPASM 03/13/2019 BIJAN LINARES MD Ot I82.409 ACUTE EMBOLISM AND THOMBOS UNSP DEEP VN 03/13/2019 BIJAN LINARES MD Ot Z85.3 PERSONAL HISTORY OF MALIGNANT NEOPLASM O 03/13/2019 BIJAN LINARES MD Ot 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 03/13/2019 BIJAN LINARES MD Ot Z53.8 PROCEDURE AND TREATMENT NOT CARRIED OUT 03/13/2019 BARRETT VILLANUEVA APRN Ot 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 03/13/2019 BARRETT VILLANUEVA APRN Ot N18.3 CHRONIC KIDNEY DISEASE, STAGE 3 (MODERAT 03/13/2019 BARRETT VILLANUEVA APRN Ot Z45.2 ENCOUNTER FOR ADJUSTMENT AND MANAGEMENT 03/13/2019 BARRETT VILLANUEVA APRN Ot 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 03/13/2019 BARRETT VILLANUEVA APRN Ot N18.3 CHRONIC KIDNEY DISEASE, STAGE 3 (MODERAT 03/13/2019 BARRETT VILLANUEVA APRN Ot R82.90 UNSPECIFIED ABNORMAL FINDINGS IN URINE 03/13/2019 BARRETT VILLANUEVA BODY ROLLING MACHINE TENDER Ot A08.4 VIRAL INTESTINAL INFECTION, UNSPECIFIED 03/13/2019 BARRETT VILLANUEVA APRN Ot 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 03/13/2019 BARRETT VILLANUEVA APRN Ot N18.3 CHRONIC KIDNEY DISEASE, STAGE 3 (MODERAT 03/13/2019 BARRETT VILLANUEVA APRN Ot Z86.2 PRSNL HISTORY OF DIS OF THE BLD/BLD-FORM 03/13/2019 BARRETT VILLANUEVA APRN Ot I63.9 CEREBRAL INFARCTION, UNSPECIFIED 03/13/2019 ARTURO GUERRERO APRN Ot 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 03/13/2019 ARTURO GUERRERO APRN Ot E78.5 HYPERLIPIDEMIA, UNSPECIFIED 03/13/2019 ATRURO GUERRERO APRN Ot I12.9 HYPERTENSIVE CHRONIC KIDNEY DISEASE W ST 03/13/2019 ARTURO GUERRERO APRN Ot I25.10 ATHSCL HEART DISEASE OF [place] CORONARY 03/13/2019 ARTURO GUERRERO APRN Ot 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, ACQUIRED 03/13/2019 ARTURO GUERRERO APRN Ot N18.3 CHRONIC KIDNEY DISEASE, STAGE 3 (MODERAT 03/13/2019 ARTURO GUERRERO APRN Ot N28.1 CYST OF KIDNEY, ACQUIRED 03/13/2019 BARRETT VILLANUEVA APRN Ot I63.9 CEREBRAL INFARCTION, UNSPECIFIED 03/13/2019 JILLIAN DOSHI, REUBEN Quiroz Ot M19.041 PRIMARY OSTEOARTHRITIS, RIGHT HAND 03/13/2019 REUBEN WALSH MD Ot M19.042 PRIMARY OSTEOARTHRITIS, LEFT HAND 03/13/2019 REUBEN AWLSH MD Ot M19.071 PRIMARY OSTEOARTHRITIS, RIGHT ANKLE AND 03/13/2019 REUBEN WALSH MD Ot M19.072 PRIMARY OSTEOARTHRITIS, LEFT ANKLE AND F 03/13/2019 REUBEN WALSH MD, Ot Z11.59 ENCOUNTER FOR SCREENING FOR OTHER VIRAL 03/13/2019 REUBEN WALSH MD, Ot Z79.899 OTHER [facility] (CURRENT) DRUG THERAPY 03/18/2019 ARTURO GUERRERO APRN Ot 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 03/18/2019 ARTURO GUERRERO APRN Ot E78.5 HYPERLIPIDEMIA, UNSPECIFIED 03/18/2019 ARTURO GUERRERO APRN Ot I12.9 HYPERTENSIVE CHRONIC KIDNEY DISEASE W ST 03/18/2019 ARTURO GUERRERO APRN Ot I25.10 ATHSCL HEART DISEASE OF [place] CORONARY 03/18/2019 ARTURO GUERRERO APRN Ot 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, ACQUIRED 03/18/2019 ARTURO GUERRERO APRN Ot N18.3 CHRONIC KIDNEY DISEASE, STAGE 3 (MODERAT 03/18/2019 ARTURO GUERRERO APRN Ot N28.1 CYST OF KIDNEY, ACQUIRED 03/18/2019 BARRETT VILLANUEVA APRN Ot I63.9 CEREBRAL INFARCTION, UNSPECIFIED 03/18/2019 BIJAN LINARES MD Ot 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 03/18/2019 BIJAN LINARES MD Ot M19.91 PRIMARY OSTEOARTHRITIS, UNSPECIFIED SITE 03/18/2019 BIJAN LINARES MD Ot M79.7 FIBROMYALGIA 03/18/2019 BIJAN LINARES MD Ot M89.8X9 OTHER SPECIFIED DISORDERS OF BONE, UNSPE 03/18/2019 BIJAN LINARES MD Ot 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 03/18/2019 BIJAN LINARES MD Ot M19.91 PRIMARY OSTEOARTHRITIS, UNSPECIFIED SITE 03/18/2019 BIJAN LINARES MD Ot M79.7 FIBROMYALGIA 03/18/2019 BIJAN LINARES MD Ot M89.8X9 OTHER SPECIFIED DISORDERS OF BONE, UNSPE 03/23/2019 BARRETT VILLANUEVA APRN Ot Z45.2 ENCOUNTER FOR ADJUSTMENT AND MANAGEMENT 03/31/2019 BIJAN LINARES MD Ot I82.409 ACUTE EMBOLISM AND THOMBOS UNSP DEEP VN 03/31/2019 BIJAN LINARES MD Ot Z85.3 PERSONAL HISTORY OF MALIGNANT NEOPLASM O 03/31/2019 RICH, BARRETT J BODY ROLLING MACHINE TENDER Ot D80.1 NONFAMILIAL HYPOGAMMAGLOBULINEMIA 03/31/2019 BARRETT VILLANUEVA APRN Ot J18.9 PNEUMONIA, UNSPECIFIED ORGANISM 03/31/2019 BARRETT VILLANUEVA APRN Ot J32.9 CHRONIC SINUSITIS, UNSPECIFIED 04/05/2019 BIJAN LINARES MD Ot I82.409 ACUTE EMBOLISM AND THOMBOS UNSP DEEP VN 04/05/2019 BIJAN LINARES MD Ot Z85.3 PERSONAL HISTORY OF MALIGNANT NEOPLASM O 04/05/2019 BARRETT VILLANUEVA APRN Ot Z45.2 ENCOUNTER FOR ADJUSTMENT AND MANAGEMENT 04/09/2019 BIJAN LINARES MD Ot 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 04/09/2019 BIJAN LINARES MD Ot M19.91 PRIMARY OSTEOARTHRITIS, UNSPECIFIED SITE 04/09/2019 BIJAN LINARES MD Ot M79.7 FIBROMYALGIA 04/09/2019 BIJAN LINARES MD, Ot M89.8X9 OTHER SPECIFIED DISORDERS OF BONE, UNSPE 04/16/2019 BARRETT VILLANUEVA APRN Ot D80.1 NONFAMILIAL HYPOGAMMAGLOBULINEMIA 04/16/2019 BARRETT VILLANUEVA APRN Ot J18.9 PNEUMONIA, UNSPECIFIED ORGANISM 04/16/2019 BARRETT VILLANUEVA APRN Ot J32.9 CHRONIC SINUSITIS, UNSPECIFIED 04/20/2019 BARRETT VILLANUEVA APRN Ot Z45.2 ENCOUNTER FOR ADJUSTMENT AND MANAGEMENT 04/20/2019 BARRETT VILLANUEVA APRN Ot M54.42 LUMBAGO WITH SCIATICA, LEFT SIDE 04/20/2019 BARRETT VILLANUEVA APRN Ot M54.42 LUMBAGO WITH SCIATICA, LEFT SIDE 04/20/2019 BARRETT VILLANUEVA BODY ROLLING MACHINE TENDER Ot Z45.2 ENCOUNTER FOR ADJUSTMENT AND MANAGEMENT 04/20/2019 BARRETT VILLANUEVA APRN Ot M54.42 LUMBAGO WITH SCIATICA, LEFT SIDE 04/21/2019 BARRETT VILLANUEVA BODY ROLLING MACHINE TENDER Ot Z45.2 ENCOUNTER FOR ADJUSTMENT AND MANAGEMENT 04/26/2019 BARRETT VILLANUEVA APRN Ot Z45.2 ENCOUNTER FOR ADJUSTMENT AND MANAGEMENT 04/28/2019 BARRETT VILLANUEVA APRN Ot Z45.2 ENCOUNTER FOR ADJUSTMENT AND MANAGEMENT 04/29/2019 BARRETT VILLANUEVA APRN Ot D80.1 NONFAMILIAL HYPOGAMMAGLOBULINEMIA 04/29/2019 BARRETT VILLANUEVA BODY ROLLING MACHINE TENDER Ot 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 04/29/2019 BARRETT VILLANUEVA APRN Ot G47.62 SLEEP RELATED LEG CRAMPS 04/29/2019 BARRETT VILLANUEVA B[employer] ROLLING MACHINE TENDER Ot M54.42 LUMBAGO WITH SCIATICA, LEFT SIDE 04/29/2019 BARRETT VILLANUEVA APRN Ot N18.3 CHRONIC KIDNEY DISEASE, STAGE 3 (MODERAT 04/29/2019 BARRETT VILLANUEVA APRN Ot Z86.2 PRSNL HISTORY OF DIS OF THE BLD/BLD-FORM 05/01/2019 BARRETT VILLANUEVA APRN Ot D80.1 NONFAMILIAL HYPOGAMMAGLOBULINEMIA 05/01/2019 BARRETT VILLANUEVA APRN Ot 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 Results Test Result Range Automated blood complete blood count (hemogram) panel - 06/17/18 09:55 Blood leukocytes automated count (number/volume) 6.6 10*3/uL 4.3-11.0 Blood erythrocytes automated count (number/volume) 4.44 10*6/uL 4.35-5.85 Venous blood hemoglobin measurement (mass/volume) 13.9 g/dL 11.5-16.0 Blood hematocrit (volume fraction) 42 % 35-52 Automated erythrocyte mean corpuscular volume 94 [foz_us] 80-99 Automated erythrocyte mean corpuscular hemoglobin (mass per erythrocyte) 31 pg 25-34 Automated erythrocyte mean corpuscular hemoglobin concentration measurement (mass/volume) 33 g/dL 32-36 Automated erythrocyte distribution width ratio 12.7 % 10.0- 14.5 Automated blood platelet count (count/volume) 249 10*3/uL 130-400 Automated blood platelet mean volume measurement 10.2 [foz_us] 7.4-10.4 Comprehensive metabolic panel - 06/17/18 09:55 Serum or plasma sodium measurement (moles/volume) 141 mmol/L 135-145 Serum or plasma potassium measurement (moles/volume) 4.4 mmol/L 3.6-5.0 Serum or plasma chloride measurement (moles/volume) 109 mmol/L 98-107 Carbon dioxide 21 mmol/L 21-32 Serum or plasma anion gap determination (moles/volume) 11 mmol/L 5-14 Serum or plasma urea nitrogen measurement (mass/volume) 16 mg/dL 7-18 Serum or plasma creatinine measurement (mass/volume) 1.28 mg/dL 0.60-1.30 Serum or plasma urea nitrogen/creatinine mass ratio 13 NRG Serum or plasma creatinine measurement with calculation of estimated glomerular filtration rate 41 NRG Serum or plasma glucose measurement (mass/volume) 146 mg/dL 70-105 Serum or plasma calcium measurement (mass/volume) 9.5 mg/dL 8.5-10.1 Serum or plasma total bilirubin measurement (mass/volume) 0.3 mg/dL 0.1-1.0 Serum or plasma alkaline phosphatase measurement (enzymatic activity/volume) 143 U/L 40-136 Serum or plasma aspartate aminotransferase measurement (enzymatic activity/volume) 16 U/L 5-34 Serum or plasma alanine aminotransferase measurement (enzymatic activity/volume) 15 U/L 0-55 Serum or plasma protein measurement (mass/volume) 7.2 g/dL 6.4-8.2 Serum or plasma albumin measurement (mass/volume) 4.2 g/dL 3.2-4.5 CALCIUM CORRECTED 9.3 mg/dL 8.5-10.1 Lipid 1996 panel - 06/17/18 09:55 Serum or plasma triglyceride measurement (mass/volume) 176 mg/dL <150 Serum or plasma cholesterol measurement (mass/volume) 176 mg/dL < 200 Serum or plasma cholesterol in HDL measurement (mass/volume) 50 mg/dL 40-60 Cholesterol in LDL [mass/volume] in serum or plasma by direct assay 81 mg/dL 1-129 Serum or plasma cholesterol in VLDL measurement (mass/volume) 35 mg/dL 5-40 THYROID STIMULATING HORMONE - 06/17/18 09:55 THYROID STIMULATING HORMONE 1.26 u[iU]/mL 0.35-4.94 Whole blood basic metabolic panel - 07/15/18 10:39 Serum or plasma sodium measurement (moles/volume) 143 mmol/L 135-145 Serum or plasma potassium measurement (moles/volume) 4.0 mmol/L 3.6-5.0 Serum or plasma chloride measurement (moles/volume) 109 mmol/L 98-107 Carbon dioxide 26 mmol/L 21-32 Serum or plasma anion gap determination (moles/volume) 8 mmol/L 5-14 Serum or plasma urea nitrogen measurement (mass/volume) 32 mg/dL 7-18 Serum or plasma creatinine measurement (mass/volume) 1.11 mg/dL 0.60-1.30 Serum or plasma urea nitrogen/creatinine mass ratio 29 NRG Serum or plasma creatinine measurement with calculation of estimated glomerular filtration rate 49 NRG Serum or plasma glucose measurement (mass/volume) 172 mg/dL 70-105 Serum or plasma calcium measurement (mass/volume) 8.6 mg/dL 8.5-10.1 C DIFFICILE AG + TOXIN A/B. - 10/28/18 11:37 RESULTS NEGATIVE FOR ANTIGEN AND TOXIN A/B NRG Complete blood count (CBC) with automated white blood cell (WBC) differential - 10/28/18 12:12 Blood leukocytes automated count (number/volume) 9.1 10*3/uL 4.3-11.0 Blood erythrocytes automated count (number/volume) 4.69 10*6/uL 4.35-5.85 Venous blood hemoglobin measurement (mass/volume) 13.9 g/dL 11.5-16.0 Blood hematocrit (volume fraction) 42 % 35-52 Automated erythrocyte mean corpuscular volume 89 [foz_us] 80-99 Automated erythrocyte mean corpuscular hemoglobin (mass per erythrocyte) 30 pg 25-34 Automated erythrocyte mean corpuscular hemoglobin concentration measurement (mass/volume) 33 g/dL 32-36 Automated erythrocyte distribution width ratio 12.5 % 10.0- 14.5 Automated blood platelet count (count/volume) 381 10*3/uL 130-400 Automated blood platelet mean volume measurement 9.4 [foz_us] 7.4-10.4 Automated blood neutrophils/100 leukocytes 66 % 42-75 Automated blood lymphocytes/100 leukocytes 22 % 12-44 Blood monocytes/100 leukocytes 9 % 0-12 Automated blood eosinophils/100 leukocytes 3 % 0-10 Automated blood basophils/100 leukocytes 0 % 0-10 Blood neutrophils automated count (number/volume) 6.0 10*3 1.8-7.8 Blood lymphocytes automated count (number/volume) 2.0 10*3 1.0-4.0 Blood monocytes automated count (number/volume) 0.8 10*3 0.0- 1.0 Automated eosinophil count 0.3 10*3/uL 0.0-0.3 Automated blood basophil count (count/volume) 0.0 10*3/uL 0.0-0.1 Comprehensive metabolic panel - 10/28/18 12:12 Serum or plasma sodium measurement (moles/volume) 142 mmol/L 135-145 Serum or plasma potassium measurement (moles/volume) 4.0 mmol/L 3.6-5.0 Serum or plasma chloride measurement (moles/volume) 111 mmol/L 98-107 Carbon dioxide 21 mmol/L 21-32 Serum or plasma anion gap determination (moles/volume) 10 mmol/L 5-14 Serum or plasma urea nitrogen measurement (mass/volume) 14 mg/dL 7-18 Serum or plasma creatinine measurement (mass/volume) 1.21 mg/dL 0.60-1.30 Serum or plasma urea nitrogen/creatinine mass ratio 12 NRG Serum or plasma creatinine measurement with calculation of estimated glomerular filtration rate 44 NRG Serum or plasma glucose measurement (mass/volume) 161 mg/dL 70-105 Serum or plasma calcium measurement (mass/volume) 9.6 mg/dL 8.5-10.1 Serum or plasma total bilirubin measurement (mass/volume) 0.4 mg/dL 0.1-1.0 Serum or plasma alkaline phosphatase measurement (enzymatic activity/volume) 128 U/L 40-136 Serum or plasma aspartate aminotransferase measurement (enzymatic activity/volume) 11 U/L 5-34 Serum or plasma alanine aminotransferase measurement (enzymatic activity/volume) 15 U/L 0-55 Serum or plasma protein measurement (mass/volume) 7.5 g/dL 6.4-8.2 Serum or plasma albumin measurement (mass/volume) 4.4 g/dL 3.2-4.5 CALCIUM CORRECTED 9.3 mg/dL 8.5-10.1 Hemoglobin A1c - 10/28/18 12:12 Blood hemoglobin A1C measurement (mass/volume) 7.3 % 4.0-5.6 MEAN BLOOD GLUCOSE 163 % <=126 Erythrocyte sedimentation rate by westergren method - 11/20/18 11:05 Erythrocyte sedimentation rate by westergren method 33 mm 0-30 Magnesium - 11/20/18 11:05 Magnesium 2.1 mg/dL 1.8-2.4 Serum or plasma C reactive protein measurement (mass/volume) - 11/20/18 11:05 Serum or plasma C reactive protein measurement (mass/volume) 0.85 mg/dL 0.00-0.50 Serum or plasma rheumatoid factor measurement (units/volume) - 11/20/18 11:05 Serum or plasma rheumatoid factor measurement (units/volume) NEGATIVE NEGATIVE [id number] - 11/20/18 11:05 Screening antinuclear antibody (JOSSIE) assay by enzyme immunoassay <1:80 <1:80 Capillary blood glucose measurement by glucometer (mass/volume) - 12/01/18 07:39 Capillary blood glucose measurement by glucometer (mass/volume) 201 mg/dL 70-110 Methicillin resistant Staphylococcus aureus (MRSA) screening culture - 12/01/18 07:50 Methicillin resistant Staphylococcus aureus (MRSA) screening culture NEG NRG Complete blood count (CBC) with automated white blood cell (WBC) differential - 12/05/18 12:50 Blood leukocytes automated count (number/volume) 8.3 10*3/uL 4.3-11.0 Blood erythrocytes automated count (number/volume) 3.93 10*6/uL 4.35-5.85 Venous blood hemoglobin measurement (mass/volume) 12.0 g/dL 11.5-16.0 Blood hematocrit (volume fraction) 37 % 35-52 Automated erythrocyte mean corpuscular volume 95 [foz_us] 80-99 Automated erythrocyte mean corpuscular hemoglobin (mass per erythrocyte) 31 pg 25-34 Automated erythrocyte mean corpuscular hemoglobin concentration measurement (mass/volume) 32 g/dL 32-36 Automated erythrocyte distribution width ratio 13.4 % 10.0- 14.5 Automated blood platelet count (count/volume) 226 10*3/uL 130-400 Automated blood platelet mean volume measurement 9.7 [foz_us] 7.4-10.4 Automated blood neutrophils/100 leukocytes 65 % 42-75 Automated blood lymphocytes/100 leukocytes 23 % 12-44 Blood monocytes/100 leukocytes 8 % 0-12 Automated blood eosinophils/100 leukocytes 3 % 0-10 Automated blood basophils/100 leukocytes 0 % 0-10 Blood neutrophils automated count (number/volume) 5.4 10*3 1.8-7.8 Blood lymphocytes automated count (number/volume) 1.9 10*3 1.0-4.0 Blood monocytes automated count (number/volume) 0.7 10*3 0.0- 1.0 Automated eosinophil count 0.3 10*3/uL 0.0-0.3 Automated blood basophil count (count/volume) 0.0 10*3/uL 0.0-0.1 PT panel in platelet poor plasma by coagulation assay - 12/05/18 12:50 Prothrombin time (PT) in platelet poor plasma by coagulation assay 12.8 s 12.2-14.7 INR in platelet poor plasma or blood by coagulation assay 1.0 0.8-1.4 Activated partial thromboplastin time (aPTT) in platelet poor plasma bycoagulation assay - 12/05/18 12:50 Activated partial thromboplastin time (aPTT) in platelet poor plasma bycoagulation assay 29 s 24-35 Comprehensive metabolic panel - 12/05/18 12:50 Serum or plasma sodium measurement (moles/volume) 145 mmol/L 135-145 Serum or plasma potassium measurement (moles/volume) 4.2 mmol/L 3.6-5.0 Serum or plasma chloride measurement (moles/volume) 112 mmol/L 98-107 Carbon dioxide 24 mmol/L 21-32 Serum or plasma anion gap determination (moles/volume) 9 mmol/L 5-14 Serum or plasma urea nitrogen measurement (mass/volume) 28 mg/dL 7-18 Serum or plasma creatinine measurement (mass/volume) 1.54 mg/dL 0.60-1.30 Serum or plasma urea nitrogen/creatinine mass ratio 18 NRG Serum or plasma creatinine measurement with calculation of estimated glomerular filtration rate 33 NRG Serum or plasma glucose measurement (mass/volume) 112 mg/dL 70-105 Serum or plasma calcium measurement (mass/volume) 8.2 mg/dL 8.5-10.1 Serum or plasma total bilirubin measurement (mass/volume) 0.3 mg/dL 0.1-1.0 Serum or plasma alkaline phosphatase measurement (enzymatic activity/volume) 133 U/L 40-136 Serum or plasma aspartate aminotransferase measurement (enzymatic activity/volume) 16 U/L 5-34 Serum or plasma alanine aminotransferase measurement (enzymatic activity/volume) 21 U/L 0-55 Serum or plasma protein measurement (mass/volume) 6.9 g/dL 6.4-8.2 Serum or plasma albumin measurement (mass/volume) 3.9 g/dL 3.2-4.5 CALCIUM CORRECTED 8.3 mg/dL 8.5-10.1 Magnesium - 12/05/18 12:50 Magnesium 2.0 mg/dL 1.8-2.4 Serum or plasma troponin i.cardiac measurement (mass/volume) - 12/05/18 12:50 Serum or plasma troponin i.cardiac measurement (mass/volume) < ng/mL <0.028 Myoglobin, serum - 12/05/18 12:50 Myoglobin, serum 136.6 ng/mL 10.0-92.0 Serum or plasma lithium measurement (moles/volume) - 12/05/18 12:50 BNP level 14.9 pg/mL <100.0 THYROID STIMULATING HORMONE - 12/05/18 12:50 THYROID STIMULATING HORMONE 2.27 u[iU]/mL 0.35-4.94 Capillary blood glucose measurement by glucometer (mass/volume) - 12/05/18 13:16 Capillary blood glucose measurement by glucometer (mass/volume) 102 mg/dL 70-110 Whole blood basic metabolic panel - 12/08/18 14:53 Serum or plasma sodium measurement (moles/volume) 141 mmol/L 135-145 Serum or plasma potassium measurement (moles/volume) 4.1 mmol/L 3.6-5.0 Serum or plasma chloride measurement (moles/volume) 108 mmol/L 98-107 Carbon dioxide 22 mmol/L 21-32 Serum or plasma anion gap determination (moles/volume) 11 mmol/L 5-14 Serum or plasma urea nitrogen measurement (mass/volume) 29 mg/dL 7-18 Serum or plasma creatinine measurement (mass/volume) 1.44 mg/dL 0.60-1.30 Serum or plasma urea nitrogen/creatinine mass ratio 20 NRG Serum or plasma creatinine measurement with calculation of estimated glomerular filtration rate 36 NRG Serum or plasma glucose measurement (mass/volume) 161 mg/dL 70-105 Serum or plasma calcium measurement (mass/volume) 8.6 mg/dL 8.5-10.1 Magnesium - 12/08/18 14:53 Magnesium 2.0 mg/dL 1.8-2.4 Complete blood count (CBC) with automated white blood cell (WBC) differential - 01/01/19 14:08 Blood leukocytes automated count (number/volume) 7.1 10*3/uL 4.3-11.0 Blood erythrocytes automated count (number/volume) 4.22 10*6/uL 4.35-5.85 Venous blood hemoglobin measurement (mass/volume) 12.8 g/dL 11.5-16.0 Blood hematocrit (volume fraction) 40 % 35-52 Automated erythrocyte mean corpuscular volume 94 [foz_us] 80-99 Automated erythrocyte mean corpuscular hemoglobin (mass per erythrocyte) 30 pg 25-34 Automated erythrocyte mean corpuscular hemoglobin concentration measurement (mass/volume) 32 g/dL 32-36 Automated erythrocyte distribution width ratio 13.5 % 10.0- 14.5 Automated blood platelet count (count/volume) 221 10*3/uL 130-400 Automated blood platelet mean volume measurement 9.8 [foz_us] 7.4-10.4 Automated blood neutrophils/100 leukocytes 61 % 42-75 Automated blood lymphocytes/100 leukocytes 27 % 12-44 Blood monocytes/100 leukocytes 9 % 0-12 Automated blood eosinophils/100 leukocytes 3 % 0-10 Automated blood basophils/100 leukocytes 1 % 0-10 Blood neutrophils automated count (number/volume) 4.3 10*3 1.8-7.8 Blood lymphocytes automated count (number/volume) 1.9 10*3 1.0-4.0 Blood monocytes automated count (number/volume) 0.6 10*3 0.0- 1.0 Automated eosinophil count 0.2 10*3/uL 0.0-0.3 Automated blood basophil count (count/volume) 0.1 10*3/uL 0.0-0.1 Serum or plasma renal function panel (Na, K, Cl, CO2, BUN, Cr, glucose,Ca, phos, alb) - 01/01/19 14:08 Serum or plasma sodium measurement (moles/volume) 144 mmol/L 135-145 Serum or plasma potassium measurement (moles/volume) 4.0 mmol/L 3.6-5.0 Serum or plasma chloride measurement (moles/volume) 111 mmol/L 98-107 Carbon dioxide 24 mmol/L 21-32 Serum or plasma anion gap determination (moles/volume) 9 mmol/L 5-14 Serum or plasma urea nitrogen measurement (mass/volume) 33 mg/dL 7-18 Serum or plasma creatinine measurement (mass/volume) 1.49 mg/dL 0.60-1.30 Serum or plasma urea nitrogen/creatinine mass ratio 22 NRG Serum or plasma creatinine measurement with calculation of estimated glomerular filtration rate 35 NRG Serum or plasma glucose measurement (mass/volume) 137 mg/dL 70-105 Serum or plasma calcium measurement (mass/volume) 8.7 mg/dL 8.5-10.1 Serum or plasma albumin measurement (mass/volume) 4.2 g/dL 3.2-4.5 Serum or plasma phosphate measurement (mass/volume) 4.5 mg/dL 2.3-4.7 Urine protein/creatinine mass ratio - 01/01/19 14:08 Urine protein measurement (mass/volume) 14 mg/dL 6-12 Urine creatinine measurement (mass/volume) 64 mg/dL 30-125 Urine protein/creatinine mass ratio 0.22 NRG Complete urinalysis with reflex to culture - 01/01/19 14:08 Urine color determination YELLOW NRG Urine clarity determination CLEAR NRG Urine pH measurement by test strip 5 5-9 Specific gravity of urine by test strip 1.015 1.016-1.022 Urine protein assay by test strip, semi-quantitative 1+ NEGATIVE Urine glucose detection by automated test strip NEGATIVE NEGATIVE Erythrocytes detection in urine sediment by light microscopy NEGATIVE NEGATIVE Urine ketones detection by automated test strip NEGATIVE NEGATIVE Urine nitrite detection by test strip NEGATIVE NEGATIVE Urine total bilirubin detection by test strip NEGATIVE NEGATIVE Urine urobilinogen measurement by automated test strip (mass/volume) NORMAL NORMAL Urine leukocyte esterase detection by dipstick 1+ NEGATIVE Automated urine sediment erythrocyte count by microscopy (number/high power field) RARE NRG Automated urine sediment leukocyte count by microscopy (number/high power field) [HPF] NRG Bacteria detection in urine sediment by light microscopy TRACE NRG Squamous epithelial cells detection in urine sediment by light microscopy 0-2 NRG Crystals detection in urine sediment by light microscopy NONE NRG Casts detection in urine sediment by light microscopy PRESENT NRG Mucus detection in urine sediment by light microscopy NEGATIVE NRG Complete urinalysis with reflex to culture NO NRG Hyaline casts detection in urine sediment by light microscopy 25-50 NRG Automated blood complete blood count (hemogram) panel - 01/26/19 13:05 Blood leukocytes automated count (number/volume) 7.2 10*3/uL 4.3-11.0 Blood erythrocytes automated count (number/volume) 4.25 10*6/uL 4.35-5.85 Venous blood hemoglobin measurement (mass/volume) 13.1 g/dL 11.5-16.0 Blood hematocrit (volume fraction) 39 % 35-52 Automated erythrocyte mean corpuscular volume 92 [foz_us] 80-99 Automated erythrocyte mean corpuscular hemoglobin (mass per erythrocyte) 31 pg 25-34 Automated erythrocyte mean corpuscular hemoglobin concentration measurement (mass/volume) 34 g/dL 32-36 Automated erythrocyte distribution width ratio 12.8 % 10.0- 14.5 Automated blood platelet count (count/volume) 274 10*3/uL 130-400 Automated blood platelet mean volume measurement 9.3 [foz_us] 7.4-10.4 Serum or plasma renal function panel (Na, K, Cl, CO2, BUN, Cr, glucose,Ca, phos, alb) - 01/26/19 13:05 Serum or plasma sodium measurement (moles/volume) 142 mmol/L 135-145 Serum or plasma potassium measurement (moles/volume) 4.0 mmol/L 3.6-5.0 Serum or plasma chloride measurement (moles/volume) 111 mmol/L 98-107 Carbon dioxide 20 mmol/L 21-32 Serum or plasma anion gap determination (moles/volume) 11 mmol/L 5-14 Serum or plasma urea nitrogen measurement (mass/volume) 21 mg/dL 7-18 Serum or plasma creatinine measurement (mass/volume) 1.54 mg/dL 0.60-1.30 Serum or plasma urea nitrogen/creatinine mass ratio 14 NRG Serum or plasma creatinine measurement with calculation of estimated glomerular filtration rate 33 NRG Serum or plasma glucose measurement (mass/volume) 167 mg/dL 70-105 Serum or plasma calcium measurement (mass/volume) 8.8 mg/dL 8.5-10.1 Serum or plasma albumin measurement (mass/volume) 4.1 g/dL 3.2-4.5 Serum or plasma phosphate measurement (mass/volume) 3.7 mg/dL 2.3-4.7 Complete urinalysis with reflex to culture - 01/26/19 14:00 Urine color determination YELLOW NRG Urine clarity determination CLEAR NRG Urine pH measurement by test strip 5 5-9 Specific gravity of urine by test strip 1.020 1.016-1.022 Urine protein assay by test strip, semi-quantitative 3+ NEGATIVE Urine glucose detection by automated test strip NEGATIVE NEGATIVE Erythrocytes detection in urine sediment by light microscopy NEGATIVE NEGATIVE Urine ketones detection by automated test strip 1+ NEGATIVE Urine nitrite detection by test strip POSITIVE NEGATIVE Urine total bilirubin detection by test strip 1+ NEGATIVE Urine urobilinogen measurement by automated test strip (mass/volume) 1 mg/dL NORMAL Urine leukocyte esterase detection by dipstick 3+ NEGATIVE Automated urine sediment erythrocyte count by microscopy (number/high power field) NONE NRG Automated urine sediment leukocyte count by microscopy (number/high power field) [HPF] NRG Bacteria detection in urine sediment by light microscopy FEW NRG Squamous epithelial cells detection in urine sediment by light microscopy 5-10 NRG Crystals detection in urine sediment by light microscopy NONE NRG Casts detection in urine sediment by light microscopy PRESENT NRG Mucus detection in urine sediment by light microscopy NEGATIVE NRG Complete urinalysis with reflex to culture YES NRG Hyaline casts detection in urine sediment by light microscopy 5-10 NRG Urine protein/creatinine mass ratio - 01/26/19 14:00 Urine protein measurement (mass/volume) 77 mg/dL 6-12 Urine creatinine measurement (mass/volume) 253 mg/dL 30-125 Urine protein/creatinine mass ratio 0.30 NRG Bacterial urine culture - 01/26/19 14:00 Bacterial urine culture SEE COMMEN NRG COLONY COUNT . NR Comprehensive metabolic panel - 02/02/19 12:14 Serum or plasma sodium measurement (moles/volume) 141 mmol/L 135-145 Serum or plasma potassium measurement (moles/volume) 4.0 mmol/L 3.6-5.0 Serum or plasma chloride measurement (moles/volume) 109 mmol/L 98-107 Carbon dioxide 23 mmol/L 21-32 Serum or plasma anion gap determination (moles/volume) 9 mmol/L 5-14 Serum or plasma urea nitrogen measurement (mass/volume) 28 mg/dL 7-18 Serum or plasma creatinine measurement (mass/volume) 1.50 mg/dL 0.60-1.30 Serum or plasma urea nitrogen/creatinine mass ratio 19 NRG Serum or plasma creatinine measurement with calculation of estimated glomerular filtration rate 34 NRG Serum or plasma glucose measurement (mass/volume) 97 mg/dL 70-105 Serum or plasma calcium measurement (mass/volume) 9.2 mg/dL 8.5-10.1 Serum or plasma total bilirubin measurement (mass/volume) 0.3 mg/dL 0.1-1.0 Serum or plasma alkaline phosphatase measurement (enzymatic activity/volume) 122 U/L 40-136 Serum or plasma aspartate aminotransferase measurement (enzymatic activity/volume) 12 U/L 5-34 Serum or plasma alanine aminotransferase measurement (enzymatic activity/volume) 15 U/L 0-55 Serum or plasma protein measurement (mass/volume) 6.8 g/dL 6.4-8.2 Serum or plasma albumin measurement (mass/volume) 4.1 g/dL 3.2-4.5 CALCIUM CORRECTED 9.1 mg/dL 8.5-10.1 Comprehensive metabolic panel - 02/23/19 12:06 Serum or plasma sodium measurement (moles/volume) 142 mmol/L 135-145 Serum or plasma potassium measurement (moles/volume) 3.8 mmol/L 3.6-5.0 Serum or plasma chloride measurement (moles/volume) 111 mmol/L 98-107 Carbon dioxide 21 mmol/L -32 Serum or plasma anion gap determination (moles/volume) 10 mmol/L 5-14 Serum or plasma urea nitrogen measurement (mass/volume) 17 mg/dL 7-18 Serum or plasma creatinine measurement (mass/volume) 1.25 mg/dL 0.60-1.30 Serum or plasma urea nitrogen/creatinine mass ratio 14 NRG Serum or plasma creatinine measurement with calculation of estimated glomerular filtration rate 42 NRG Serum or plasma glucose measurement (mass/volume) 235 mg/dL 70-105 Serum or plasma calcium measurement (mass/volume) 8.7 mg/dL 8.5-10.1 Serum or plasma total bilirubin measurement (mass/volume) 0.2 mg/dL 0.1-1.0 Serum or plasma alkaline phosphatase measurement (enzymatic activity/volume) 136 U/L 40-136 Serum or plasma aspartate aminotransferase measurement (enzymatic activity/volume) 15 U/L 5-34 Serum or plasma alanine aminotransferase measurement (enzymatic activity/volume) 23 U/L 0-55 Serum or plasma protein measurement (mass/volume) 6.4 g/dL 6.4-8.2 Serum or plasma albumin measurement (mass/volume) 3.8 g/dL 3.2-4.5 CALCIUM CORRECTED 8.9 mg/dL 8.5-10.1 Complete blood count (CBC) with automated white blood cell (WBC) differential - 02/26/19 11:13 Blood leukocytes automated count (number/volume) 7.7 10*3/uL 4.3-11.0 Blood erythrocytes automated count (number/volume) 4.53 10*6/uL 4.35-5.85 Venous blood hemoglobin measurement (mass/volume) 13.5 g/dL 11.5-16.0 Blood hematocrit (volume fraction) 41 % 35-52 Automated erythrocyte mean corpuscular volume 91 [foz_us] 80-99 Automated erythrocyte mean corpuscular hemoglobin (mass per erythrocyte) 30 pg 25-34 Automated erythrocyte mean corpuscular hemoglobin concentration measurement (mass/volume) 33 g/dL 32-36 Automated erythrocyte distribution width ratio 12.9 % 10.0- 14.5 Automated blood platelet count (count/volume) 250 10*3/uL 130-400 Automated blood platelet mean volume measurement 9.3 [foz_us] 7.4-10.4 Automated blood neutrophils/100 leukocytes 66 % 42-75 Automated blood lymphocytes/100 leukocytes 23 % 12-44 Blood monocytes/100 leukocytes 7 % 0-12 Automated blood eosinophils/100 leukocytes 3 % 0-10 Automated blood basophils/100 leukocytes 1 % 0-10 Blood neutrophils automated count (number/volume) 5.1 10*3 1.8-7.8 Blood lymphocytes automated count (number/volume) 1.8 10*3 1.0-4.0 Blood monocytes automated count (number/volume) 0.6 10*3 0.0- 1.0 Automated eosinophil count 0.2 10*3/uL 0.0-0.3 Automated blood basophil count (count/volume) 0.0 10*3/uL 0.0-0.1 Serum or plasma C reactive protein measurement (mass/volume) - 02/26/19 11:13 Serum or plasma C reactive protein measurement (mass/volume) 0.58 mg/dL 0.00-0.50 Serum or plasma rheumatoid factor measurement (units/volume) - 02/26/19 11:13 Serum or plasma rheumatoid factor measurement (units/volume) NEGATIVE NEGATIVE Erythrocyte sedimentation rate by westergren method - 02/26/19 11:13 Erythrocyte sedimentation rate by westergren method 44 mm 0-30 Serum hepatitis C virus antibody assay (units/volume) - 02/26/19 11:13 Serum hepatitis C virus antibody detection Non-Reactive Non- Reactive Serum cyclic citrullinated peptide antibody assay (units/volume) - 02/26/19 11:13 Serum cyclic citrullinated peptide antibody assay (units/volume) < % 0.0-19.9 Hepatitis B profile - 02/26/19 11:13 Confirmatory quantitative serum or plasma hepatitis B virus surface antigen measurement Non-Reactive Non-Reactive Hepatitis B virus core IgM antibody assay Non-Reactive Non- Reactive Serum hepatitis B virus surface antibody assay (units/volume) < % >=12.00 TB GOLD QUANTIFERON PLUS - 02/26/19 11:13 [id number] 0.00 [iU]/mL 0.00-0.34 QuantiFERON-TB test Negative Negative Mitogen stimulated gamma interferon [units/volume] corrected for background in blood 0.04 [iU]/mL 0.00-7.99 Mitogen stimulated gamma interferon [units/volume] in blood 8.86 [iU]/mL 0.50-10.00 Serum or plasma IgG measurement (mass/volume) - 03/27/19 12:05 [id number] 561 % [phone] Automated blood complete blood count (hemogram) panel - 04/20/19 12:35 Blood leukocytes automated count (number/volume) 7.8 10*3/uL 4.3-11.0 Blood erythrocytes automated count (number/volume) 4.37 10*6/uL 4.35-5.85 Venous blood hemoglobin measurement (mass/volume) 13.2 g/dL 11.5-16.0 Blood hematocrit (volume fraction) 40 % 35-52 Automated erythrocyte mean corpuscular volume 92 [foz_us] 80-99 Automated erythrocyte mean corpuscular hemoglobin (mass per erythrocyte) 30 pg 25-34 Automated erythrocyte mean corpuscular hemoglobin concentration measurement (mass/volume) 33 g/dL 32-36 Automated erythrocyte distribution width ratio 13.2 % 10.0- 14.5 Automated blood platelet count (count/volume) 245 10*3/uL 130-400 Automated blood platelet mean volume measurement 9.4 [foz_us] 7.4-10.4 Complete urinalysis with reflex to culture - 04/20/19 12:35 Urine color determination YELLOW NRG Urine clarity determination CLEAR NRG Urine pH measurement by test strip 5 5-9 Specific gravity of urine by test strip 1.020 1.016-1.022 Urine protein assay by test strip, semi-quantitative 2+ NEGATIVE Urine glucose detection by automated test strip NEGATIVE NEGATIVE Erythrocytes detection in urine sediment by light microscopy NEGATIVE NEGATIVE Urine ketones detection by automated test strip 1+ NEGATIVE Urine nitrite detection by test strip NEGATIVE NEGATIVE Urine total bilirubin detection by test strip NEGATIVE NEGATIVE Urine urobilinogen measurement by automated test strip (mass/volume) NORMAL NORMAL Urine leukocyte esterase detection by dipstick 1+ NEGATIVE Automated urine sediment erythrocyte count by microscopy (number/high power field) NONE NRG Automated urine sediment leukocyte count by microscopy (number/high power field) [HPF] NRG Bacteria detection in urine sediment by light microscopy TRACE NRG Squamous epithelial cells detection in urine sediment by light microscopy 2-5 NRG Crystals detection in urine sediment by light microscopy NONE NRG Casts detection in urine sediment by light microscopy PRESENT NRG Mucus detection in urine sediment by light microscopy NEGATIVE NRG Complete urinalysis with reflex to culture NO NRG Hyaline casts detection in urine sediment by light microscopy 2-5 NRG Urine protein/creatinine mass ratio - 04/20/19 12:35 Urine protein measurement (mass/volume) 34 mg/dL 6-12 Urine creatinine measurement (mass/volume) 175 mg/dL 30-125 Urine protein/creatinine mass ratio 0.19 NRG Serum or plasma renal function panel (Na, K, Cl, CO2, BUN, Cr, glucose,Ca, phos, alb) - 04/20/19 12:35 Serum or plasma sodium measurement (moles/volume) 141 mmol/L 135-145 Serum or plasma potassium measurement (moles/volume) 4.2 mmol/L 3.6-5.0 Serum or plasma chloride measurement (moles/volume) 106 mmol/L 98-107 Carbon dioxide 26 mmol/L 21-32 Serum or plasma anion gap determination (moles/volume) 9 mmol/L 5-14 Serum or plasma urea nitrogen measurement (mass/volume) 22 mg/dL 7-18 Serum or plasma creatinine measurement (mass/volume) 1.32 mg/dL 0.60-1.30 Serum or plasma urea nitrogen/creatinine mass ratio 17 NRG Serum or plasma creatinine measurement with calculation of estimated glomerular filtration rate 40 NRG Serum or plasma glucose measurement (mass/volume) 170 mg/dL 70-105 Serum or plasma calcium measurement (mass/volume) 9.2 mg/dL 8.5-10.1 Serum or plasma albumin measurement (mass/volume) 4.1 g/dL 3.2-4.5 Serum or plasma phosphate measurement (mass/volume) 4.1 mg/dL 2.3-4.7 Serum or plasma uric acid measurement (mass/volume) - 04/20/19 12:35 Serum or plasma uric acid measurement (mass/volume) 5.4 mg/dL 2.6-7.2 Magnesium - 04/20/19 12:35 Magnesium 2.1 mg/dL 1.8-2.4 Lipid 1996 panel - 04/20/19 12:35 Serum or plasma triglyceride measurement (mass/volume) 270 mg/dL <150 Serum or plasma cholesterol measurement (mass/volume) 213 mg/dL < 200 Serum or plasma cholesterol in HDL measurement (mass/volume) 59 mg/dL 40-60 Cholesterol in LDL [mass/volume] in serum or plasma by direct assay 107 mg/dL 1-129 Serum or plasma cholesterol in VLDL measurement (mass/volume) 54 mg/dL 5-40 Serum or plasma intact pararthyroid hormone measurement (mass/volume) - 04/20/19 12:35 Serum or plasma intact parathyroid hormone measurement (mass/volume) 104.3 pg/mL 9.0-77.0 Bio-intact parathyroid hormone (PTH) measurement with calcium 8.9 % 8.5-10.5 VITAMIN D 25-HYDROXY - 04/20/19 12:35 VITAMIN D 25-HYDROXY (TOTAL) 27.7 % 30.0-100.0 PDM - PAIN MGMT (PROFILE 3 WITH CONFIRMATION) - 04/21/19 14:47 Prescribed Drug 1 Codeine NRG Creatinine 138.8 mg/dL > or=20.0 pH 6.06 4.5 - 9.0 Oxidant NEGATIVE mcg/mL <200 Amphetamines NEGATIVE ng/mL <500 medMATCH Amphetamines CONSISTENT NRG Benzodiazepines NEGATIVE ng/mL <100 medMATCH Benzodiazepines CONSISTENT NRG Marijuana Metabolite NEGATIVE ng/mL <20 medMATCH Marijuana Metab CONSISTENT NRG Cocaine Metabolite NEGATIVE ng/mL <150 medMATCH Cocaine Metab CONSISTENT NRG Opiates POSITIVE ng/mL <100 Oxycodone NEGATIVE ng/mL <100 medMATCH Oxycodone CONSISTENT NRG COMMENT NRG Codeine >33104 ng/mL <50 medMATCH Codeine CONSISTENT NRG Hydrocodone NEGATIVE ng/mL <50 medMATCH Hydrocodone CONSISTENT NRG Hydromorphone NEGATIVE ng/mL <50 medMATCH Hydromorphone CONSISTENT NRG Morphine 901 ng/mL <50 medMATCH Morphine CONSISTENT NRG Norhydrocodone NEGATIVE ng/mL <50 medMATCH Norhydrocodone CONSISTENT NRG PDM - TRAMADOL - 04/21/19 14:47 Prescribed Drug 1 Codeine NRG COMMENT NRG Desmethyltramadol 4343 ng/mL <100 medMATCH Desmethyltram INCONSISTENT NRG Tramadol >05399 ng/mL <100 medMATCH Tramadol INCONSISTENT NRG Encounters ACCT No. Visit Date/Time Discharge Status Pt. Type Provider Facility Loc./Unit Complaint [id number] 05/15/2019 09:20:00 05/15/2019 23:59:59 CLS Outpatient BARRETT VILLANUEVA [facility] [id number] 04/21/2019 14:10:00 Document Registration [id number] 04/27/2019 00:12:00 04/27/2019 23:59:59 CLS Preadmit BARRETT VILLANUEVA APRN [facility] [place] [id number] 04/20/2019 11:55:00 04/26/2019 00:01:00 DIS Outpatient BARRETT VILLANUEVA APRN [facility] [place] CATH [id number] 04/20/2019 11:37:00 04/20/2019 23:59:59 CLS Outpatient BARRETT VILLANUEVA APRN [facility] M54.42, [id number] 04/20/2019 11:44:00 04/20/2019 11:44:00 CAN Preadmit ARTURO GUERRERO [employer] [facility] N18.3,I25.10,E11.9,R60.9,I12.9,E78.5 [id number] 04/01/2019 00:11:00 04/01/2019 23:59:59 CLS Preadmit BIJAN LINARES MD [facility] ONC [id number] 03/06/2019 15:03:00 03/31/2019 00:01:00 DIS Outpatient BIJAN LINARES MD [facility] ONC [id number] 03/27/2019 11:50:00 03/27/2019 23:59:59 CLS Outpatient BARRETT VILLANUEVA [employer] [facility] LAB D80.1 [id number] 03/17/2019 11:07:00 03/17/2019 23:59:59 CLS Outpatient BIJAN LINARES MD [facility] CARD BONE PAIN,ARTHRITIS,BREAST CA [id number] 03/03/2019 08:45:00 03/03/2019 23:59:59 CLS Outpatient BIJAN LINARES MD [facility] RAD PAIN, BREAST CANCER [id number] 02/26/2019 10:53:00 02/26/2019 23:59:59 CLS Outpatient REUBEN WALSH MD [facility] RAD M19.041 [id number] 02/23/2019 11:56:00 02/23/2019 23:59:59 CLS Outpatient BARRETT VILLANUEVA [employer] [facility] LAB I63.9 [id number] 02/10/2019 10:35:00 02/10/2019 23:59:59 CLS Outpatient ARTURO GUERRERO [employer] [facility] RAD CKD STAGE 3 [id number] 02/02/2019 12:10:00 02/02/2019 23:59:59 CLS Outpatient BARRETT VILLANUEVA [employer] [facility] LAB I63.9 [id number] 01/27/2019 00:14:00 01/27/2019 23:59:59 CLS Preadmit BARRETT VILLANUEVA [employer] [facility] LAB CKD,TYPE 2,GASTROENTERITIS [id number] 01/26/2019 12:50:00 01/26/2019 23:59:59 CLS Outpatient BARRETT VILLANUEVA [employer] [facility] LAB E11.22,N18.3 [id number] 11/20/2018 11:51:00 01/26/2019 00:01:00 DIS Outpatient BARRETT VILLANUEVA [employer] [facility] LAB CKD,TYPE 2,GASTROENTERITIS [id number] 12/29/2018 13:05:00 01/04/2019 00:01:00 DIS Outpatient BARRETT VILLANUEVA [employer] [facility] [place] CATH [id number] 01/01/2019 13:53:00 01/01/2019 23:59:59 CLS Outpatient BARRETT VILLANUEVA [employer] [facility] LAB TYPE 2 DIABETES [id number] 12/31/2018 09:57:00 12/31/2018 23:59:59 CLS Preadmit BARRETT VILLANUEVA [employer] [facility] RAD CVA [id number] 12/17/2018 07:27:00 12/17/2018 23:59:59 CLS Outpatient ABBI GUTIERREZ MD [facility] CARD CAD, OBESITY, ESOPHAGEAL VARICES [id number] 12/09/2018 08:39:00 12/09/2018 23:59:59 CLS Outpatient ABBI GUTIERREZ MD [facility] CARD CAD, OBESITY, ESOPHOGEAL VARICES [id number] 12/08/2018 14:32:00 12/08/2018 23:59:59 CLS Outpatient BARRETT VILLANUEVA [employer] [facility] LAB LEG CRAMPS [id number] 12/05/2018 12:34:00 12/05/2018 16:59:00 DIS Emergency JARED ODELL [employer] [facility] ER CHEST PAIN [id number] 12/01/2018 07:19:00 12/01/2018 11:53:00 DIS [facility] [id number] 11/27/2018 09:27:00 11/27/2018 11:16:00 DIS Outpatient VERONICA LIAO DO [facility] PREOP MALFUNCTIONING PORT [id number] 11/26/2018 09:46:00 11/26/2018 23:59:59 CLS Outpatient BARRETT VILLANUEVA [employer] [facility] RAD ESOPHAGEAL DYSPHAGIA [id number] 11/20/2018 11:24:00 11/20/2018 23:59:59 CLS Outpatient BARRETT VILLANUEVA [employer] [facility] LAB NOCTURNAL LEG CRAMPS [id number] 11/11/2018 09:21:00 11/11/2018 23:59:59 CLS Outpatient NABEEL DAIGLE MD [facility] RAD RT SHOULDER PAIN [id number] 09/16/2018 12:58:00 09/16/2018 23:59:59 CLS Outpatient CAMERON DO CARISSA Fernando [facility] RAD CERVICAL RADICULOPATHY [id number] 08/21/2018 12:53:00 08/28/2018 00:01:00 DIS Outpatient BARRETT VILLANUEVA [employer] [facility] PORT [place] CATH [id number] 08/14/2018 08:30:00 08/14/2018 23:59:59 CLS Outpatient BARRETT VILLANUEVA APRN [facility] RAD N64.4,Z13.820 [id number] 07/25/2018 09:53:00 07/25/2018 23:59:59 CLS Preadmit BARRETT VILLANUEVA APRN [facility] RAD BREAST PAIN, RIGHT [id number] 2018 16:02:00 2018 23:59:59 CLS Outpatient BARRETT VILLANUEVA APRN [facility] RAD RENAL CYST, LEFT [id number] 07/15/2018 09:58:00 07/15/2018 23:59:59 CLS Outpatient BARRETT VILLANUEVA APRN [facility] RAD ELEVATED HEMIDIAPHRAGM [id number] 06/20/2018 07:53:00 06/20/2018 23:59:59 CLS Outpatient BARRETT VILLANUEVA APRN [facility] RAD SCREENING FOR BREAST CANCER [id number] 06/17/2018 09:25:00 06/17/2018 23:59:59 CLS Outpatient BARRETT VILLANUEVA APRN [facility] LAB TYPE 2 DIABETES MELLITUS WITH CHRONIC KIDNEY DISEA [id number] 06/16/2018 16:58:00 06/16/2018 23:59:59 CLS Preadmit BARRETT VILLANUEVA APRN [facility] RAD PAIN IN LEFT LEG, PAIN IN RIGHT LEG
[2019-05-19] MEDS ORDERED: KETOROLAC 30 MG/ML VIAL IM STA (11:33)
--- NOTE | 2019-05-19 11:42 | ED Lower Extremity ---
General Chief Complaint: Lower Extremity Stated Complaint: KNEE SWELLING Nursing Triage Note: PT STATES ON SATURDAY SHE BEGAN HAVING RIGHT KNEE PAIN. [facility]ED[facility]. PT STATES SATURDAY SHE STEPPED DOWN AND FELT/HEARD A SNAP IN THE KNEE. PT STATES TAKING TRAMADOL 50MG WITH NO RELIEF. PT DENIES FALL. PT DENIES NUMBNESS OR TINGLING IN LEGS. Nursing Sepsis Screen: No Definite Risk Source: patient Exam Limitations: no limitations History of Present Illness Date Seen by Provider: May 19, 2019 Time Seen by Provider: 11:25 Initial Comments Here with report of right knee pain that has been going on for the last week. She was seen at [facility] and started on prednisone 20 mg daily as well as tramadol and has had no relief. She has had her left knee replaced and was told that her right knee is to be replaced as well. She follows with Dr. Meneses. Does have some mild kidney dysfunction so does not typically take ibuprofen. She has had that in the past without problems. She has been using ice packs and that's not helping as well. She is hopeful for something better for pain. Onset: last week Severity: moderate Method of Injury: other (noted that the knee pops when standing just prior to onset of.) Modifying Factors: Improves With Immobilization; Worse With Movement Allergies and Home Medications Allergies Coded Allergies: clopidogrel (Verified Allergy, Severe, BLOOD CLOTS, 11/27/18) Penicillins (Verified Allergy, Mild, RASH, 11/27/18) carisoprodol (Verified Allergy, Mild, RASH, 11/27/18) cephalexin (Verified Allergy, Mild, RASH, 11/27/18) ketorolac (Verified Allergy, Mild, RASH, 11/27/18) prochlorperazine (Verified Allergy, Mild, RASH, 11/27/18) Home Medications Amlodipine Besylate 10 Mg Tablet, 10 MG PO DAILY, (Reported) Atorvastatin Calcium 80 Mg Tablet, 80 MG PO HS, (Reported) Baclofen 10 Mg Tablet, 10 MG PO PRN, (Reported) Butalb/Acetaminophen/Caffeine 1 Each Tablet, 1 EACH PO PRN, (Reported) Calcium Phosphate Trib/Vit D3 1 Each Tab.chew, 1 EACH PO DAILY, (Reported) Duloxetine HCl 30 Mg Capsule.dr, 30 MG PO DAILY, (Reported) Furosemide 40 Mg Tablet, 40 MG PO DAILY, (Reported) Gabapentin 300 Mg Capsule, 300 MG PO TID, (Reported) Glipizide 2.5 Mg Tab, 2.5 MG PO DAILY, (Reported) Labetalol HCl 200 Mg Tablet, 200 MG PO BID, (Reported) Ondansetron HCl 4 Mg Tab, 4 MG PO PRN, (Reported) Oxycodone HCl/Acetaminophen 1 Each Tablet, 1 TAB PO Q6H PRN for PAIN-MODERATE Prescribed by: JARED ODELL on 12/05/18 1646 Pantoprazole Sodium 40 Mg Tablet.dr, 40 MG PO DAILY, (Reported) Ropinirole HCl 0.5 Mg Tablet, 1 MG PO HS, (Reported) Ropinirole HCl 0.5 Mg Tablet, 0.5 MG PO DAILY, (Reported) Topiramate 25 Mg Tablet, 25 MG PO HS, (Reported) Topiramate 50 Mg Tablet, 50 MG PO DAILY, (Reported) Tramadol HCl 50 Mg Tablet, 50 MG PO Q6H PRN for PAIN-MODERATE, (Reported) Patient Home Medication List Home Medication List Reviewed: Yes Review of Systems Constitutional: see HPI; No chills, No fever Respiratory: no symptoms reported Cardiovascular: no symptoms reported Musculoskeletal: see HPI, joint pain, joint swelling Past Mruldad-Cwsdws-Ogypvu Hx Past Med/Social Hx: Reviewed Nursing Past Med/Soc Hx Patient Social History Alcohol Use: Denies Use Recreational Drug Use: No 2nd Hand Smoke Exposure: No Recent Foreign Travel: No Contact w/Someone Who Travel: No Recent Infectious Disease Expo: No Recent Hopitalizations: No Physical Abuse: No Sexual Abuse: No Mistreated: No Fear: No Immunizations Up To Date Date of Pneumonia Vaccine: Jul 29, 2017 Date of Influenza Vaccine: Jul 28, 2018 Seasonal Allergies Seasonal Allergies: No Past Medical History Surgeries: No Hysterectomy, Thyroidectomy Respiratory: No Cardiac: Yes (HX HEART CATH-STENT) Heart Attack, High Cholesterol, Hypertension Neurological: Yes Headaches /Migraines Sexually Transmitted Disease: No HIV/AIDS: No Genitourinary: Yes (HX DIALYSIS, STAGE 3 ) Gastrointestinal: Yes (HX GI BLEED) Gastroesophageal Reflux, Hepatitis Musculoskeletal: Yes (OSTEOARTHRITIS, BULGING DISCS) Arthritis Endocrine: Yes Diabetes, Non-Insulin dep HEENT: Yes (GLASSES, UPPER DENTURES) Loss of Vision: Bilateral Cancer: Yes Breast Did You Recieve Any Treatments: Yes What Type of Treatment Did You: Radiation, Surgical Intervention Psychosocial: Yes (TAKES CYMBALTA FOR BACK PAIN) Integumentary: No Blood Disorders: Yes (IRON DEFFICIENCY ANEMIA-GETS IRON INFUSIONS) Adverse Reaction/Blood Tranf: No (HAS HAD BLKOOD WITH NO REACTION) Family Medical History Reviewed Nursing Family Hx No Pertinent Family Hx Physical Exam Vital Signs Vital Signs - First Documented 05/19/19 11:31 Temp 97.6 Pulse 84 Resp 18 B/P (MAP) 112/67 (82) Pulse Ox 96 O2 Delivery Room Air Capillary Refill : Less Than 3 Seconds Height, Weight, BMI Height: 5'4.00" Weight: 188lbs. 0.0oz. 85.662395pc; 30.9 BMI Method:Stated General Appearance: WD/WN, no apparent distress Cardiovascular: regular rate, rhythm, no murmur Respiratory: lungs clear, normal breath sounds Knees: left knee non-tender, left knee normal inspection, left knee normal range of motion; right knee joint effusion, right knee pain (with palpation and range of motion), right knee swelling; left knee other (findings consistent with previous knee surgery) Neurologic/Psychiatric: alert, oriented x 3 Skin: normal color, warm/dry Progress/Results/Core Measures Results/Orders My Orders Orders - IRMA TRAN MD Ketorolac Injection (Toradol Injection) (05/19/19 11:33) Vital Signs/I&O 05/19/19 05/19/19 11:31 11:44 Temp 97.6 97.6 Pulse 84 Resp 18 B/P (MAP) 112/67 (82) Pulse Ox 96 O2 Delivery Room Air Blood Pressure Mean: 82 Progress Progress Note : Progress Note Seen and evaluated. Toradol 30 mg IM. Patient has ketorolac listed as an allergy but states that she does not think that she is allergic to that and is willing to try it. She is currently on prednisone. We will go ahead and get knee x-ray and given ice pack. 1212: Doing a little better. X-ray reviewed. I will send a copy of the chart over to Dr. Meneses. Patient will call his office today for appointment as soon as possible. Discharged home with return precautions. Patient verbalize understanding instructions and agreement with plan. Diagnostic Imaging Diagonstic Imaging: Xray Plain Films/CT/US/NM/MRI: knee Comments NAME: KEO AGUIRRE [facility] REC#: [id number] PT STATUS: REG ER : 1950 PHYSICIAN: JARED ODELL APRN ADMIT DATE: 05/19/19/ER Draft Date of Exam:05/19/19 KNEE, RIGHT, 3 VIEWS INDICATION: Pain. COMPARISON: None available. TECHNIQUE: Three radiographs of the right knee dated May 19, 2019. FINDINGS: No acute fracture or dislocation. No destructive osseous process. [id number] medial joint space narrowing with prominent osteophyte formation. Minimal lateral joint space narrowing. Osteophyte formation associated with the patellofemoral joint. Mild vascular calcifications. Tiny knee joint effusion. IMPRESSION: No acute osseous abnormality with moderate degenerative changes, greatest within the medial compartment. Tiny knee joint effusion. Dictated on workstation # [id number] Dict: 05/19/19 1159 Trans: 05/19/19 1203 [id number] Interpreted by: DAVID CARL MD Electronically signed by: Departure Impression Primary Impression: Right knee pain Qualified Codes: M25.561 - Pain in right knee Disposition: 01 HOME, SELF-CARE Condition: Stable Departure-Patient Inst. Decision time for Depature: 12:15 Referrals: JOSIANE KITCHEN DO (PCP) Primary Care Physician BARRETT VILLANUEVA APRN (Family) Primary Care Physician AXEL MENESES DO Patient Instructions: Knee Pain (DC) Add. Discharge Instructions: All discharge instructions reviewed with patient and/or family. Voiced understanding. Continue ice packs 20 minutes per hour as needed to reduce swelling. Rest the knee. Follow-up with Dr. Meneses as soon as possible. Call his office today. Take the prescribed pain medicine given today as directed. You may also take one Tylenol extra strength (500 mg) with the pain pill every 6 hours as needed for pain. Do not exceed 4000 mg of acetaminophen in a 24-hour period. Return for worse pain, fever, vomiting, weakness, breathing problems or other concerns as needed. Scripts Oxycodone HCl/Acetaminophen (Oxycodone-Acetaminophen 5-325) 1 Each Tablet 1 EACH PO Q6H PRN for PAIN-MODERATE MDD 6 for 3 Days, #12 TAB 0 Refills Prov: ABSENTEE-SHAWNEE,IRMA D MD 05/19/19 Copy Copies To 1: AXEL MENESES TIMOTHY D MD May 19, 2019 11:42
--- NOTE | 2019-05-19 12:04 | Diagnostic Imaging Report ---
INDICATION: Pain. COMPARISON: None available. TECHNIQUE: Three radiographs of the right knee dated May 19, 2019. FINDINGS: No acute fracture or dislocation. No destructive osseous process. [id number] medial joint space narrowing with prominent osteophyte formation. Minimal lateral joint space narrowing. Osteophyte formation associated with the patellofemoral joint. Mild vascular calcifications. Tiny knee joint effusion. IMPRESSION: No acute osseous abnormality with moderate degenerative changes, greatest within the medial compartment. Tiny knee joint effusion. Dictated by: Dictated on workstation # [id number]
[2019-05-19] MEDS ORDERED: OXYC-471 PO (12:18)
[2019-05-19 12:25] VITALS: BP 112/67
== END 2019-05-19 12:26 | disposition home or self-care (01) ==
LOC: EDUNIT# 11:02 → ER 11:03
DX: M25.561 Pain in right knee (principal); I10 Essential (primary) hypertension; E11.9 Type 2 diabetes mellitus without complications; I25.2 Old myocardial infarction; G43.909 Migraine, unspecified, not intractable, without status migrainosus; E78.00 Pure hypercholesterolemia, unspecified; K21.9 Gastro-esophageal reflux disease without esophagitis; Z85.3 Personal history of malignant neoplasm of breast; Z90.710 Acquired absence of both cervix and uterus; Z98.890 Other specified postprocedural states; Z95.5 Presence of coronary angioplasty implant and graft; Z96.652 Presence of left artificial knee joint; Z88.8 Allergy status to other drugs, medicaments and biological substances; Z88.0 Allergy status to penicillin; Z88.1 Allergy status to other antibiotic agents
CPT/HCPCS: 73562; 96372

== ENCOUNTER 2019-05-28 09:40 | Outpatient (CLI) | payer MEDICARE ==
[~2019-05-28] VITALS: Ht 162.6 cm; Wt 86.2 kg
[~2019-05-28 09:40] MED LIST changes: +OXYC-471 PO
[2019-05-28 10:15] VITALS: BP 110/73
[2019-05-28] MEDS ORDERED: HEParin (CENTRAL IV FLUSH) 500 UNIT/5 ML SYR IV ONE (11:15)
[2019-05-28 11:53] LABS: BASOPHILS # (AUTO) 0.1 10^3/uL (0.0-0.1); BASOPHILS % (AUTO) 1 % (0-10); EOSINOPHILS # (AUTO) 0.2 10^3/uL (0.0-0.3); EOSINOPHILS % (AUTO) 2 % (0-10); HEMATOCRIT 42 % (35-52); HEMOGLOBIN 13.7 G/DL (11.5-16.0); LYMPHOCYTES # (AUTO) 2.2 X 10^3 (1.0-4.0); LYMPHOCYTES % (AUTO) 24 % (12-44); MEAN CORPUSCULAR HEMOGLOBIN 31 PG (25-34); MEAN CORPUSCULAR HGB CONC 33 G/DL (32-36); MEAN CORPUSCULAR VOLUME 94 FL (80-99); MEAN PLATELET VOLUME 9.7 FL (7.4-10.4); MONOCYTES # (AUTO) 0.9 X 10^3 (0.0-1.0); MONOCYTES % (AUTO) 10 % (0-12); NEUTROPHILS % (AUTO) 64 % (42-75); PLATELET COUNT 260 10^3/uL (130-400); RED CELL DISTRIBUTION WIDTH 13.4 % (10.0-14.5); WHITE BLOOD COUNT 9.4 10^3/uL (4.3-11.0)
[2019-05-28 12:06] LABS: INR 0.9 (0.8-1.4); PROTHROMBIN TIME PATIENT 12.8 SEC (12.2-14.7)
[2019-05-28 12:07] LABS: CALCIUM 9.3 MG/DL (8.5-10.1); CREATININE SERUM 1.81 MG/DL (0.60-1.30); POTASSIUM 4.3 MMOL/L (3.6-5.0)
[2019-05-28 12:20] LABS: CLARITY,URINE CLEAR; COLOR,URINE YELLOW; GLUCOSE, URINE (UA) 1+ (NEGATIVE); KETONES,URINE 1+ (NEGATIVE); LEUKOCYTE ESTERASE ,URINE 3+ (NEGATIVE); NITRITE,URINE POSITIVE (NEGATIVE); PH,URINE 5 (5-9); PROTEIN,URINE 3+ (NEGATIVE); UROBILINOGEN,URINE 1 MG/DL (NORMAL)
[2019-05-28 12:35] LABS: BACTERIA,URINE FEW /HPF; BILIRUBIN,URINE 1+ (NEGATIVE); RBC,URINE RARE /HPF
[2019-05-28] MEDS ORDERED: GLIP5TAB13 PO (12:46)
[2019-05-28] MEDS ORDERED: FOLI1TAB24 PO (12:46)
[2019-05-28] MEDS ORDERED: HYDR200T46 PO (12:52)
[2019-05-28] MEDS ORDERED: BRIMON0.2 OU (12:52)
[2019-05-28] MEDS ORDERED: DULO60CA6 PO (12:58)
[2019-05-29] MEDS ORDERED: ONDA4TAB11 PO (13:50)
[2019-05-29] MEDS ORDERED: FURO40TA4 PO (13:50)
[2019-05-29] MEDS ORDERED: CODE1CAP20 PO (13:50)
[2019-05-29] MEDS ORDERED: CHOL10003 PO (13:57)
[2019-05-29] MEDS ORDERED: CARB10DR2 OD (14:00)
== END 2019-05-28 11:30 | disposition home or self-care (01) ==
LOC: PREOP 09:40
PROVIDERS: ATTEND Orthopaedic Surgery
DX: Z01.812 Encounter for preprocedural laboratory examination (principal); M17.11 Unilateral primary osteoarthritis, right knee; Z96.651 Presence of right artificial knee joint
CPT/HCPCS: 36415; 80048; 81000; 85025; 85610; 86850; 86900; 86901; 87081; 87088

== ENCOUNTER 2019-06-09 07:45 | Inpatient (IN) | payer MEDICARE | END 2019-06-13 09:50 | disposition other institution (70) | LOC: 4TH 07:45 → SURG 07:46 → 4TH 11:48 | PROC: 0SRC0J9 Replacement of Right Knee Joint with Synthetic Substitute, Cemented, Open Approach (ICD-10-PCS; principal; 2019-06-09 08:39) | DX: M17.11 Unilateral primary osteoarthritis, right knee (principal); I12.9 Hypertensive chronic kidney disease with stage 1 through stage 4 chronic kidney disease, or unspecified chronic kidney disease; N18.3 Chronic kidney disease, stage 3 (moderate); I25.2 Old myocardial infarction; E78.00 Pure hypercholesterolemia, unspecified; E11.9 Type 2 diabetes mellitus without complications; G25.81 Restless legs syndrome; E87.6 Hypokalemia; E89.0 Postprocedural hypothyroidism; K21.9 Gastro-esophageal reflux disease without esophagitis; G43.909 Migraine, unspecified, not intractable, without status migrainosus; M54.9 Dorsalgia, unspecified; Z79.84 Long term (current) use of oral hypoglycemic drugs; Z85.3 Personal history of malignant neoplasm of breast; Z92.3 Personal history of irradiation; Z86.19 Personal history of other infectious and parasitic diseases; Z90.710 Acquired absence of both cervix and uterus ==

== ENCOUNTER 2019-06-13 09:50 | Inpatient (IN) | payer MEDICARE ==
[~2019-06-13] VITALS: Ht 162.6 cm; Wt 86.8 kg
--- NOTE | 2019-06-13 09:49 | NUR ---
Admitted to room 224, with an admitting diagnosis of debility, on 06-13-19 from 4th floor via , accompanied by .KEO AGUIRRE introduced to surroundings, call light, bed controls, phone, TV, temperature control, lights, meal times, smoking policy, visitor policy, side rail policy, bathrooms and showers. Patient Rights given to patient in the handbook.KEO AGUIRRE verbalizes understanding that [facility] is not responsible for the loss or damage to any personal effects or valuables that are kept in the patients posession during their hospitalization. The following Patient Care Plans were discussed with the : Discharge Planning, ,, and . KEO AGUIRRE verbalizes understanding of Interdisciplinary Patient Education. Patient and/or family were informed about the Rapid Response Team and its purpose. Patient received Patient Rights Booklet, which includes Privacy Act Statement and Data Collection Information Summary.
[~2019-06-13 09:50] MED LIST changes: +ACETAMINOPHEN 500 MG TAB (TYLENOL) PO PRN; +ALPRAZolam 0.25 MG (XANAX) TAB PO PRN; +BRIMON0.2 OU; +CALCIUM CARBONATE 500 MG (TUMS) TAB.CHEW PO PRN; +CARB10DR2 OD; +CHOL10003 PO; +CODE1CAP20 PO; +DOCUSATE SODIUM 100 MG (COLACE) CAP PO PRN; +DULO60CA6 PO; +FOLI1TAB24 PO; +FURO40TA4 PO; +GLIP5TAB13 PO; +HYDR200T46 PO; +LOPERAMIDE 2 MG (IMODIUM) TABLET PO PRN; +MELATONIN 3 MG TABLET PO PRN; +ONDA4TAB11 PO; +ONDANSETRON 4 MG (ZOFRAN) ORAL DISSOLVE TAB PO PRN; +SENNA W/DOCUSATE (SENOKOT S) TABLET PO SCH; +diphenhydrAMINE 25 MG TAB (BENADRYL) PO PRN
[2019-06-13] MEDS ORDERED: GABA-488 PO (09:57)
[2019-06-13] MEDS ORDERED: LEVO750T39 PO (09:57)
--- NOTE | 2019-06-13 10:56 | Occupational Therapy Eval ---
OT Evaluation-General/PLF Medical Diagnosis Admission Date Jun 13, 2019 at 09:50 Medical Diagnosis: Right TKA Onset Date: Jun 09, 2019 Therapy Diagnosis Therapy Diagnosis: impaired self care skills Height/Weight Height (Feet): 5 Height (Inches): 4.00 Weight (Pounds): 190 Weight (Ounces): 0.0 Referral Physician: Molly Medical History Pertinent Medical History: DM, HTN, OA Additional Medical History hyperlipidemia Current History Pt s/p elective right TKA Reviewed History: Yes Social History Home: Single Level Current Living Status: Alone ADL-Prior Level of Function Therapy Code Descriptions/Definitions Functional [place] Measure: 0=Not Assessed/NA 4=Minimal Assistance 1=Total Assistance 5=Supervision or Setup 2=Maximal Assistance 6=Modified [place] 3=Moderate Assistance 7=Complete [place] Therapy Quality Codes: 6 Independent with activity with or without an assistive device 5 Patient requires set up or clean up by helper. Patient completes activity by themselves 4 Supervision or touching assist (CGA). [place] provide cues , steadying assist 3 The helper provides less than half the effort to complete the activity 2 The helper provides more than half the effort to complete the activity 1 Dependent. The helper does all the effort to complete an activity 7 Patient refused to complete or attempt activity 9 The patient did not perform the activity before the current illness or injury 88 Not attempted due to Medical conditions or safety concerns Functional Abilities and Goals: Independent: Patient completed the activities by him/herself, with or without an assistive device, with no assistance from a helper. Needed Some Help: Patient needed partial assistance from another person to complete activities. Dependent: A helper completed the activities for the patient. Unknown: Not Applicable: ADL PLOF Comments Pt reports being independent prior to surgery Self Care: Independent DME/Equipment: Bath Chair, Grab Bars, Tub/Shower OT Current Status Subjective Pt in bed, agrees to therapy. Pt reports 7/10 pain in right knee. Mental Status/Objective Patient Orientation: Person, Place Attachments: Oxygen Current Glasses/Contacts: Yes Hand Dominance: Right Upper Extremity ROM decreased bilateral shoulder ROM. Upper Extremity Coordination Fair ADL-Treatment ADL-Current Pt requesting to use restroom. Supine to sit with assist for LE. Pt transferred to [facility] with FWW, cues for safety. Assist required to manage Depends down/up. Pt declined to attempt toileting hygiene, stating she needed assist. Pt sit to stand from BSC with mod assist. Transfer back to EOB with FWW, cues for sequencing and safety. Sit to supine with assist for LE. Pt fatigues with activity. Pt resting in bed with needs met after session Toileting (FIM): 1 Toileting Hygiene (QC): 1 Toilet/Commode Transfer (FIM): 3 Toilet Transfer (QC): 3 Education OT Patient Education: Rehab process Teaching Recipient: Patient Teaching Methods: Discussion Response to Teaching: Verbalize Understanding, Reinforcement Needed OT Short Term Goals Short Term Goals Time Frame: Jun 20, 2019 Bathing(FIM): 3 Lower Body Dressing(FIM): 3 Toileting(FIM): 4 Toilet/Commode Transfer(FIM): 4 Additional Short Term Goals: 1-Demonstrate ADL Tasks, 2-Verbalize Understanding, 3-ImproveStrength/Tay 1=Demonstrate adherence to instructed precautions during ADL tasks. 2=Patient will verbalize/demonstrate understanding of assistive devices/modifications for ADL. 3=Patient will improve strength/tolerance for activity to enable patient to perform ADL's. OT [facility] Goals Time Frame: Jul 04, 2019 Eating (FIM): 6 Eating (QC): 6 Groomin Oral Hygiene (QC): 6 Bathing(FIM): 5 Shower/Bathe Self (QC): 5 Upper Body Dressing(FIM): 6 Upper Body Dressing (QC): 6 Lower Body Dressing(FIM): 5 Lower Body Dressing (QC): 5 On/Off Footwear (QC): 5 Toileting(FIM): 6 Toileting Hygiene (QC): 6 Toilet/Commode Transfer(FIM): 6 Toilet/Commode Transfer (QC): 6 Shower Transfer(FIM): 5 Additional Goals: 1-Demonstrate ADL Tasks, 2-Verbalize Understanding, 3- ImproveStrength/Tay 1=Demonstrate adherence to instructed precautions during ADL tasks. 2=Patient will verbalize/demonstrate understanding of assistive devices/modifications for ADL. 3=Patient will improve strength/tolerance for activity to enable patient to perform ADL's. OT Education/Plan Problem List/Assessment Assessment: Decreased Activ Tolerance, Decreased UE Strength, Dependent Transf ers, Impaired Bed Mobility, Impaired I ADL's, Impaired Self-Care Skills Pt s/p right TKA with decreased mobility, strength, activity tolerance, and ADL functioning. Pt to benefit from skilled OT intervention for ADL training, transfers, strengthening, and home safety education to increase independence and allow safe discharge plan. Discharge Recommendations Plan/Recommendations: Continue POC Treatment Plan/Plan of Care Treatment,Training & Education: Yes Patient would benefit from OT for education, treatment and training to promote independence in ADL's, mobility, safety and/or upper extremity function for ADL's. Plan of Care: ADL Retraining, Functional Mobility, Group Exercise/Act as Ind, UE Funct Exercise/Act Treatment Duration: Jul 04, 2019 Frequency: At least 5 of 7 days/Wk (IRF) Estimated Hrs Per Day: 1.5 hours per day Rehab Potential: Fair Time/GCodes Start Time: 10:10 Stop Time: 10:35 Total Time Billed (hr/min): 25 Billed Treatment Time 1 visit, EVM(10minutes), ADL (15minutes) VIOLA LONG OT Jun 13, 2019 10:56
--- NOTE | 2019-06-13 10:59 | NUR ---
REPORT GIVEN TO SUZANNA NEAL
[2019-06-13] MEDS ORDERED: MELATONIN 3 MG TABLET PO PRN (11:45)
[2019-06-13] MEDS ORDERED: diphenhydrAMINE 50 MG/ML INJ (BENADRYL) IV PRN (11:45)
[2019-06-13] MEDS ORDERED: BACLOFEN 10 MG (LIORESAL) TAB PO PRN (11:45)
[2019-06-13] MEDS ORDERED: BISACODYL 10 MG SUPP (DULCOLAX) PR PRN (11:45)
[2019-06-13] MEDS ORDERED: ACETAMINOPHEN 325 MG TABLET PO PRN (11:45)
--- NOTE | 2019-06-13 12:04 | Physical Therapy Evaluation ---
PT Evaluation-General Medical Diagnosis Admission Date Jun 13, 2019 at 09:50 Medical Diagnosis: Right TKA Onset Date: Jun 09, 2019 Therapy Diagnosis Therapy Diagnosis: abnormal gait Height/Weight Height (Feet): 5 Height (Inches): 4.00 Weight (Pounds): 213 Weight (Ounces): 8.0 Precautions Precautions/Isolations: Standard Precautions Weight Bear Status Right Lower Extremity: Right Full Weight Bearing Left Lower Extremity: Left Full Weight Bearing Referral Physician: Molly Reason for Referral: Evaluation/Treatment Medical History Pertinent Medical History: DM, HTN, OA Current History Elective right TKR performed by Dr. Meneses on 06/09/2019. Reviewed History: Yes Social History Home: Single Level Current Living Status: Alone Entry Into Home: Stairs With Railing PT Steps Into Home: 2 PT Steps Inside Home: 0 Prior/Core FIM Prior Level of Function Therapy Code Descriptions/Definitions Functional [place] Measure: 0=Not Assessed/NA 4=Minimal Assistance 1=Total Assistance 5=Supervision or Setup 2=Maximal Assistance 6=Modified [place] 3=Moderate Assistance 7=Complete [place] Therapy Quality Codes: 6 Independent with activity with or without an assistive device 5 Patient requires set up or clean up by helper. Patient completes activity by themselves 4 Supervision or touching assist (CGA). [place] provide cues , steadying assist 3 The helper provides less than half the effort to complete the activity 2 The helper provides more than half the effort to complete the activity 1 Dependent. The helper does all the effort to complete an activity 7 Patient refused to complete or attempt activity 9 The patient did not perform the activity before the current illness or injury 88 Not attempted due to Medical conditions or safety concerns Functional Abilities and Goals: Independent: Patient completed the activities by him/herself, with or without an assistive device, with no assistance from a helper. Needed Some Help: Patient needed partial assistance from another person to complete activities. Dependent: A helper completed the activities for the patient. Unknown: Not Applicable: Bed Mobility: 7 Transfers (B,C,W/C) (FIM): 7 Gait: 7 Stairs: 6 Indoor Mobility (Ambulation): Independent Stairs: Independent Pt reports she lives alone and is indep with all mobiltiy and self care. Reports she was able to drive and to do her own grocery shopping. PT Evaluation-Current Subjective Pt agrees to PT but reports she does not think she will be able to do very much. Pain Numeric Pain Scale: 7 Location: Right Location Body Site: Knee Pain Description: Ache Objective Patient Orientation: Person, Confused, Place, Time, Situation Problem Solving: Fair Pt is oriented and is delayed with her responses and at times seems confused; difficulty following simple cues, such as performing an ankle pump. ROM/Strength ROM Lower Extremities left LE ROM WFL Right knee 0-75 degrees AAROM Strenght Lower Extremities Left LE strength is WFL Right LE strength is grossly 2/5; pt is guarded with movement and hesitant to use it. Integumentary/Posture Integumentary Appears intact; refer to nursing notes for full assessment. Bowel Incontinence: No Bladder Incontinence: No Posture rounded shoulders with head forward and slight cervical tilt. Thoracic kyphosis noted. Neuromuscular (Tone, Coordination, Reflexes) intact and functional Sensory Vision: Wears Glasses Hearing: Functional Hand Dominance: Right Sensation Right Lower Extremit: Intact Sensation Left Lower Extremity: Intact Transfers Therapy Code Descriptions/Definitions Functional [place] Measure: 0=Not Assessed/NA 4=Minimal Assistance 1=Total Assistance 5=Supervision or Setup 2=Maximal Assistance 6=Modified [place] 3=Moderate Assistance 7=Complete [place] Therapy Quality Codes: 6 Independent with activity with or without an assistive device 5 Patient requires set up or clean up by helper. Patient completes activity by themselves 4 Supervision or touching assist (CGA). [place] provide cues , steadying assist 3 The helper provides less than half the effort to complete the activity 2 The helper provides more than half the effort to complete the activity 1 Dependent. The helper does all the effort to complete an activity 7 Patient refused to complete or attempt activity 9 The patient did not perform the activity before the current illness or injury 88 Not attempted due to Medical conditions or safety concerns Transfers (B, C, W/C) (FIM): 2 Scootin Rollin Roll Left to Right (QC): 4 Supine to/from Sit: 3 (assist with both legs to get into bed. ) Sit to/from Stand: 3 (mod assist with come to a stand with heavy cues for sequencing and encouragement) Sit to Lying (QC): 3 Lying to Sitting/Side of Bed(Q: 3 Sit to Stand (QC): 3 Chair/Crk-jm-Tyxjz Xfer(QC): 3 Car Transfer (QC): 3 Pt requires heavy cues to sequence and to initiate task. Gait Does the Patient Walk?: Yes Mode of Locomotion: Walk Anticipated Mode of Locomotion: Walk Gait (FIM): 2 Distance (FIM): 1=up to 49 ft Walk 10 feet (QC): 3 (mod assist for balance and safety as well as to weight shift) Walk 50 ft with 2 Turns(QC): 88 Walk 150 ft (QC): 88 Walking 10ft/uneven surface-QC: 88 Gait Assistive Device: FWW Comments/Gait Description MOd assist with gait for balance, safety and to weight shift. Pt takes very short steps without heel strike or toe off; tends to lead with her right LE and step to with the left. Slow gait and with much effort and difficulty. Pt does not increase step length with cues. Forward flexed with head down and does not stand upright even with cues. Requires assist with walker management. Wheelchair Training Does the Pt Use a Wheelchair?: No Stairs Stairs (FIM): 0 1 Step (curb) (QC): 88 4 Steps (QC): 88 12 Steps (QC): 88 If not tested on admit;explain Pt unable to take a large enough step to attempt steps; limited distance and generally unsafe to attempt at this time. Functional mobility is severely limited. Balance Sitting Static: Fair Sitting Dynamic: Fair Standing Static: Fair (retropulsivewith initial standing and requires mod assist to correc.t ) Standing Dynamic: Fair Picking up an Object (QC): 88 Assessment/Needs Post elective TKR right. Pt's functional mobility is severely impaired and she requires heavy assist with all transfers and bed mobiltiy and gait distance is limited and her pattern is impaired. She seems to have difficulty initiating mobiltiy and following skilled cues. She needs heavy encouragement to participate. Rehab Potential: Guarded PT Short Term Goals Short Term Goals Time Frame: Jun 26, 2019 Transfers (B,C,W/C) (FIM): 4 Gait (FIM): 4 PT Assisted Goals Proof Technician Helper Goals PT Assisted Goals Time Frame: Jul 10, 2019 Transfers (B,C,W/C) (FIM): 7 Sit to Lying (QC): 6 Lying-Sitting on Side/Bed(QC): 6 Sit to Stand (QC): 6 Roll Left to Right (QC): 6 Chair/Cke-ip-Esmpp Xfer(QC): 6 Car Transfer (QC): 6 Does the Patient Walk: Yes Gait (FIM): 6 Gait distance (FIM): 3=150 ft Walk 10 feet (QC): 6 Walk 10ft-Uneven Surface(QC): 6 Walk 50ft with 2 Turns (QC): 6 Walk 150 ft (QC): 6 Gait Assistive Device: FWW Does the Pt use WC or Scooter?: No Stairs (FIM): 5 # of Steps: 4 1 Step (curb) (QC): 6 4 Steps (QC): 6 12 Steps (QC): 9 Picking up an Object (QC): 4 Goal is for pt to be mod indep with all functional mobility to allow her to return home nd care for herself as before. PT Plan Problem List Problem List: Activity Tolerance, Functional Strength, Safety, Balance, Gait, Transfer, Bed Mobility, ROM Treatment/Plan Treatment Plan: Continue Plan of Care Treatment Plan: Bed Mobility, Education, Functional Activity Tay, Functional Strength, Group Therapy, Gait, Safety, Therapeutic Exercise, Transfers Treatment Duration: Jul 10, 2019 Frequency: At least 5 of 7 days/Wk (IRF) Estimated Hrs Per Day: 1.5 hours per day Patient and/or Family Agrees t: Yes Safety Risks/Education Patient Education: Transfer Techniques, Safety Issues Teaching Recipient: Patient Teaching Methods: Demonstration, Discussion Response to Teaching: Reinforcement Needed Discharge Recommendations Therapy D/C Recommendations: Physical Therapy Home Care Time/GCodes Time In: 950 Time Out: 1010 Total Billed Treatment Time: 20 Total Billed Treatment visit EVM 20 PORTER OGDEN PT Jun 13, 2019 12:04
--- NOTE | 2019-06-13 12:21 | Physical Therapy Daily Note ---
PT Daily Note-Current Subjective Agrees to get out of bed and to the chair for lunch. Transfers Therapy Code Descriptions/Definitions Functional [place] Measure: 0=Not Assessed/NA 4=Minimal Assistance 1=Total Assistance 5=Supervision or Setup 2=Maximal Assistance 6=Modified [place] 3=Moderate Assistance 7=Complete [place] Therapy Quality Codes: 6 Independent with activity with or without an assistive device 5 Patient requires set up or clean up by helper. Patient completes activity by themselves 4 Supervision or touching assist (CGA). [place] provide cues , steadying a ssist 3 The helper provides less than half the effort to complete the activity 2 The helper provides more than half the effort to complete the activity 1 Dependent. The helper does all the effort to complete an activity 7 Patient refused to complete or attempt activity 9 The patient did not perform the activity before the current illness or injury 88 Not attempted due to Medical conditions or safety concerns Transfers (B, C, W/C) (FIM): 3 Supine to/from Sit: 4 (pt able to tranisistion sup to sit EOB with min assist and skilled cues for sequencing. ) Sit to Stand (QC): 3 Pt was able to walk 10 ft from bed to chair. Stood at chair for nursing to complete skin assessement. Pt in chair with polar pack on post treatment. Weight Bearing Right Lower Extremity: Right Full Weight Bearing Left Lower Extremity: Left Full Weight Bearing Exercises Supine Ex: Ankle pumps, Quad Set, Heel Slides (mod assist to complete), Hip abd/add (mod assist to complete) Supine Reps: 10 (completed with the right LE) Assessment Current Status: Fair Progress Heavy cuing required and takes extra time to process and complete task. PT Short Term Goals Short Term Goals Time Frame: Jun 26, 2019 Transfers (B,C,W/C) (FIM): 4 Gait (FIM): 4 PT Skilled Nursing Goals [place] Goals PT Skilled Nursing Goals Time Frame: Jul 10, 2019 Transfers (B,C,W/C) (FIM): 7 Sit to Lying (QC): 6 Lying-Sitting on Side/Bed(QC): 6 Sit to Stand (QC): 6 Rollin Roll Left to Right (QC): 6 Chair/Flg-jd-Uslhb Xfer(QC): 6 Car Transfer (QC): 6 Does the Patient Walk: Yes Gait (FIM): 6 Gait distance (FIM): 3=150 ft Walk 10 feet (QC): 6 Walk 10ft-Uneven Surface(QC): 6 Walk 50ft with 2 Turns (QC): 6 Walk 150 ft (QC): 6 Gait Assistive Device: FWW Does the Pt use WC or Scooter?: No Stairs (FIM): 5 # of Steps: 4 1 Step (curb) (QC): 6 4 Steps (QC): 6 12 Steps (QC): 9 Picking up an Object (QC): 4 PT Plan Problem List Problem List: Activity Tolerance, Functional Strength, Safety, Balance, Gait, Transfer, Bed Mobility, ROM Treatment/Plan Treatment Plan: Continue Plan of Care Treatment Plan: Bed Mobility, Education, Functional Activity Tay, Functional Strength, Group Therapy, Gait, Safety, Therapeutic Exercise, Transfers Treatment Duration: Jul 10, 2019 Frequency: At least 5 of 7 days/Wk (IRF) Estimated Hrs Per Day: 1.5 hours per day Patient and/or Family Agrees t: Yes Safety Risks/Education Patient Education: Transfer Techniques Teaching Recipient: Patient Teaching Methods: Demonstration, Discussion Response to Teaching: Reinforcement Needed Time/GCodes Time In: 1130 Time Out: 1145 Total Billed Treatment Time: 15 Total Billed Treatment visit FA 15 PORTER OGDEN PT Jun 13, 2019 12:21
--- NOTE | 2019-06-13 12:21 | PM&R H&P / Post Admit Assess ---
History of Present Illness HPI/Chief Complaint Chief complaint: Debility following right total knee replacement complicated with pneumonia and elevated creatinine History of present illness: This is a 68-year-old white female clinic patient of [facility] who is admitted to inpatient rehab following a right total knee arthroplasty by Dr. Meneses there was originally uncomplicated but then became complicated with a postop pneumonia. I am unable to get any reliable details from the patient since they are very vague complaints and she reports that she still feels loopy from the pain medication given today. I do reviewed the prior records from Dr. Crum and it appears that she was a poor historian to begin with and having difficulty motivating to participating therapy. At this current time patient is reporting a sore throat of which the nurse was given no reported that that she complained of it upstairs on fourth floor. Her Levaquin will be maintained every other day renal dosed due to her multiple antibiotic allergies. Her baseline creatinine is 1.7. She does see nephrology on a regular basis but unable to tell me the name of that doctor. She is really unable to tell me any of her doctors names except for Lola Benson who she sees a [facility]. She remained on DVT prophylaxis of heparin since postoperative but venous Doppler ultrasound was ordered for thorough medical care evaluation but the lower extremities do not appear to be edematous or have any type of pain on the calf muscle. We will try to be judicious regarding pain medication administration in order to prevent oversedation. We will inquire further when she is less drowsy regarding her prior level of functioning. Source: patient, old records Exam Limitations: clinical condition, other (drowsy) Date Seen 06/13/19 Time Seen by a Provider: 12:00 Attending Physician Ai Isaac Linda K DO Referring Physician Date of Admission Jun 13, 2019 at 09:50 Home Medications & Allergies Home Medications Reviewed patient Home Medication Reconciliation performed by pharmacy medication reconciliations certification technician and/or nursing. Patients Allergies have been reviewed. 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) Alcohol Use: Denies Use Recreational Drug Use: No Smoking Status: Never a Smoker 2nd Hand Smoke Exposure: No Physical Abuse Screen: No Sexual Abuse: No Recent Foreign Travel: No Contact w/other who traveled: No Recent Hopitalizations: No Recent Infectious Disease Expo: No Immunizations Up To Date Date of Pneumonia Vaccine: Jul 29, 2017 Date of Influenza Vaccine: Jul 28, 2018 Seasonal Allergies Seasonal Allergies: No Past Medical History Surgeries: Hysterectomy, Thyroidectomy Respiratory: Pneumonia Cardiac: Heart Attack, High Cholesterol, Hypertension Neurological: Headaches /Migraines Sexually Transmitted Disease: No HIV/AIDS: No Genitourinary: Bladder Infection, Renal Failure Gastrointestinal: Gastroesophageal Reflux, Hepatitis Musculoskeletal: Arthritis, Chronic Back Pain Endocrine: Diabetes, Non-Insulin dep Loss of Vision: Bilateral Cancer: Breast Did You Recieve Any Treatments: Yes What Type of Treatment Did You: Radiation, Surgical Intervention History of Blood Disorders: Yes (IRON DEFFICIENCY ANEMIA-GETS IRON INFUSIONS) Adverse Reaction to Blood Navarrete: No (HAS HAD BLOOD WITH NO REACTION) Family History Hypertension G8 BROTHER Not obtainable due to adoption 19 FATHER No Pertinent Family Hx Review of Systems Constitutional: see HPI EENTM: hoarseness, throat pain Respiratory: cough Cardiovascular: no symptoms reported Gastrointestinal: constipation Genitourinary: no symptoms reported Musculoskeletal: joint pain (right knee) Skin: no symptoms reported Psychiatric/Neurological: Anxiety, Depressed All Other Systems Reviewed Negative Unless Noted: Yes Physical Exam Exam Vital Signs Vital Signs Date Time Temp Pulse Resp B/P (MAP) Pulse Ox O2 Delivery O2 Flow Rate FiO2 06/13/19 18:15 98 Nasal Cannula 2.00 06/13/19 17:09 98.8 92 20 98/64 (75) Capillary Refill : General Appearance: No Apparent Distress, WD/WN, Chronically ill HEENT: PERRL/EOMI, Normal ENT Inspection, Pharynx Normal, Moist Mucous Membranes Neck: Full Range of Motion, Normal Inspection, Non Tender, Supple Respiratory: Chest Non Tender, No Accessory Muscle Use, No Respiratory Distress, Crackles, Decreased Breath Sounds Cardiovascular: Regular Rate, Rhythm, No Edema, No Gallop, No JVD, No Murmur Gastrointestinal: Normal Bowel Sounds, No Organomegaly, No Pulsatile Mass, Non Tender, Soft Back: Normal Inspection, No CVA Tenderness, No Vertebral Tenderness Extremity: Normal Capillary Refill, Normal Inspection, Normal Range of Motion (except right leg), Non Tender, No Calf Tenderness, No Pedal Edema Neurologic/Psychiatric: Alert, Oriented x3, No Motor/Sensory Deficits, broadcast transmitter operator II- XII Norm as Tested, Abnormal Gait, Depressed Affect, Disoriented (subtle) Skin: Normal Color, Warm/Dry Lymphatic: No Adenopathy Results Results/Procedures Labs Patient resulted labs reviewed. Assessment/Plan Assessment and Plan Assess & Plan/Chief Complaint Plan: IRF protocol Vague complaints with drowsiness and extensive PMH will monitor closely Pain control but limit pain meds due to drowsiness Fall risk when drowsy Home meds Reviewed notes (1) S/P total knee arthroplasty Status: Chronic (2) Acute kidney injury superimposed on chronic kidney disease Status: Acute (3) Type 2 diabetes mellitus Status: Chronic (4) Restless leg syndrome Status: Chronic (5) Essential hypertension Status: Chronic (6) Pleuritic chest pain Status: Acute (7) Coronary artery disease Status: Chronic (8) Left lower lobe pneumonia Status: Acute Qualifiers: Pneumonia type: due to unspecified organism Qualified Codes: J18.1 - Lobar pneumonia, unspecified organism (9) Drowsiness Status: Acute (10) Constipation Status: Acute Qualifiers: Constipation type: slow transit constipation Qualified Codes: K59.01 - Slow transit constipation (11) Sepsis due to pneumonia Status: Acute (12) Normocytic anemia Status: Acute (13) Hyperlipidemia Status: Chronic Qualifiers: Hyperlipidemia type: unspecified Qualified Codes: E78.5 - Hyperlipidemia, unspecified Post Admission Physician Asses Date seen by provider: Jun 13, 2019 Time seen by provider: 12:00 Admisison Dx: (1) S/P total knee arthroplasty Status: Chronic The preadmission screen agrees with the post admission assessment that the patient is a good candidate for inpatient rehabilitation. The patient will have a comprehensive program of inpatient rehabilitation with a goal of maximizing level of functional independence prior to discharge home with family. The patient will have PT/OT ninety minutes per day, each discipline, five days a week for gait, strengthening, conditioning, balance, ADLs, any patient/family/caregiver training as necessary. Speech therapy to do cognitive assessment and treat as indicated. Rehabilitation nursing to assist with bowel, bladder, skin, wound care, medication administration, pain management. Physician Office Specialist to assist with discharge planning, community reentry. SCD's for DVT prophylaxis. She appears to be well motivated to participate in three hours of therapy a day. She should be able to tolerate three hours of therapy a day from a medical standpoint. She should benefit from the three hours of therapy a day. She has a reasonable discharge plan, reasonable discharge rehabilitation goals and a supportive family. She has various comorbidities that need to be closely monitored with medications and treatments adjusted on a daily basis as needed. These include: see list Barriers to discharge for this patient who had been independent prior to this are for her to be modified independent to supervision for ADLs and mobility skills prior to discharge home with family, so as to lessen the burden of the caregivers. Risks for this patient include: 1. Fall 2. Fracture 3. DVT 4. Pulmonary embolism 5. Wound infection 6. Skin breakdown 7. Contractures 8. Poorly controlled pain 9. Urinary retention 10. UTI 11. Respiratory infection 12. Aspiration Estimated Length of Stay: 7 days Prognosis: Rehab prognosis appears good for goal of discharge home with family modified independent to supervision for ADLs and mobility skills. AI ISAAC DO Jun 13, 2019 12:21
[2019-06-13 12:51] VITALS: BP 107/64
[2019-06-13] MEDS: BRIMONIDINE 0.2% (ALPHAGAN) OPHTH SOLN 5 ML BTL OU SCH (14:02)
[2019-06-13] MEDS: GABAPENTIN 300 MG (NEURONTIN) CAP PO SCH (14:02)
[2019-06-13] MEDS: RT-ALBUTEROL/IPRATROPIUM 3 ML (DUONEB) VIAL INH SCH ×2 (14:39→18:15)
[2019-06-13 14:47] VITALS: BP 107/64
[2019-06-13] MEDS: oxyCODONE/APAP 10/325MG (PERCOCET 10) TABLET PO PRN (15:24)
[2019-06-13] MEDS: inSUlin ASPART (NovoLOG) 1 UNIT/0.01 ML (CHARGE PER UNIT) SC SCH (15:25)
--- NOTE | 2019-06-13 17:00 | NUR ---
Pt c/o chest heaviness and difficulty breathing. States this is a different feeling than she has previously felt. BP is 98/64, P 92, O@ 95%. Dr. Barnes contacted, she ordered EKG, troponin, and cardiology consult. Dr. Ji consulted and requested pt be transferred to cardiac step down unit.
[2019-06-13 17:09] VITALS: BP 98/64
[2019-06-13] MEDS: HYDROXYCHLOROQUINE 200 MG (PLAQUENIL) TAB PO SCH (17:50)
--- NOTE | 2019-06-13 18:33 | NUR ---
Report given to Gris in ICU. Pt transferred by bed to ICU-3.
[2019-06-15] MEDS ORDERED: GABA-488 PO ×2 (09:09)
--- NOTE | 2019-06-15 10:26 | PM&R Progress Note ---
Subjective HPI/CC On Admission Date Seen by Provider: Jun 15, 2019 Time Seen by Provider: 11:00 Chief complaint: Debility following right total knee replacement complicated with pneumonia and elevated creatinine History of present illness: This is a 68-year-old white female clinic patient of [facility] who is admitted to inpatient rehab following a right total knee arthroplasty by Dr. Meneses there was originally uncomplicated but then became complicated with a postop pneumonia. I am unable to get any reliable details from the patient since they are very vague complaints and she reports that she still feels loopy from the pain medication given today. I do reviewed the prior records from Dr. Crum and it appears that she was a poor historian to begin with and having difficulty motivating to participating therapy. At this current time patient is reporting a sore throat of which the nurse was given no reported that that she complained of it upstairs on fourth floor. Her Levaquin will be maintained every other day renal dosed due to her multiple antibiotic allergies. Her baseline creatinine is 1.7. She does see nephrology on a regular basis but unable to tell me the name of that doctor. She is really unable to tell me any of her doctors names except for Lola Benson who she sees a [facility]. She remained on DVT prophylaxis of heparin since postoperative but venous Doppler ultrasound was ordered for the rehabilitation institute medical care evaluation but the lower extremities do not appear to be edematous or have any type of pain on the calf muscle. We will try to be judicious regarding pain medication administration in order to prevent oversedation. We will inquire further when she is less drowsy regarding her prior level of functioning. Subjective/Events-last exam Pt back on inpatient rehab VQ scans showed low probability of PE Left sided pneumonia was the cause of the chest pain No acute coronary syndrome noted Son is at the bedside today and did inform the rehab team that she does take a lot of pain meds on a. regular basis She does report throat pain and it is similar to the Zenker's diverticulum that she has struggled with for years so will consult Dr. Whalen for that Nebulizers, oxygen supplementation, and pain medication remain for the left sided pneumonia and finishing antibiotics renal dosed Checked meds and labs Pt having more clarity with her thought process than when I last saw her on Checked meds and labs Reviewed therapy notes and all imaging scans and labs Conferred with packing machine can feeder of Systems General: Fatigue HEENT: Sore Throat Pulmonary: Cough Cardiovascular: Chest Pain Musculoskeletal: leg pain Neurological: Weakness, Incoordination Objective Exam Vital Signs Vital Signs Date Time Temp Pulse Resp B/P (MAP) Pulse Ox O2 Delivery O2 Flow Rate FiO2 06/15/19 20:26 93 Nasal Cannula 2.00 06/15/19 18:33 98.7 99 20 112/64 (80) Capillary Refill : General Appearance: No Apparent Distress, WD/WN, Chronically ill HEENT: PERRL/EOMI, Normal ENT Inspection, Pharynx Normal, Moist Mucous Membranes Neck: Full Range of Motion, Normal Inspection, Non Tender, Supple Respiratory: Chest Non Tender, No Accessory Muscle Use, No Respiratory Distress, Crackles (LLL), Decreased Breath Sounds Cardiovascular: Regular Rate, Rhythm, No Edema, No Gallop, No JVD, No Murmur Gastrointestinal: Normal Bowel Sounds, No Organomegaly, No Pulsatile Mass, Non Tender, Soft Back: Normal Inspection, No CVA Tenderness, No Vertebral Tenderness Extremity: Normal Capillary Refill, Normal Inspection, Normal Range of Motion (except right leg), Non Tender, No Calf Tenderness, No Pedal Edema Neurologic/Psychiatric: Alert, Oriented x3, No Motor/Sensory Deficits, plant hr manager II- XII Norm as Tested, Abnormal Gait, Depressed Affect, Disoriented (subtle) Skin: Normal Color, Warm/Dry Lymphatic: No Adenopathy Results/Procedures Lab Patient resulted labs reviewed. FIM Transfers Therapy Code Descriptions/Definitions Functional [place] Measure: 0=Not Assessed/NA 4=Minimal Assistance 1=Total Assistance 5=Supervision or Setup 2=Maximal Assistance 6=Modified [place] 3=Moderate Assistance 7=Complete [place] Therapy Quality Codes: 6 Independent with activity with or without an assistive device 5 Patient requires set up or clean up by helper. Patient completes activity by themselves 4 Supervision or touching assist (CGA). [place] provide cues , steadying assist 3 The helper provides less than half the effort to complete the activity 2 The helper provides more than half the effort to complete the activity 1 Dependent. The helper does all the effort to complete an activity 7 Patient refused to complete or attempt activity 9 The patient did not perform the activity before the current illness or injury 88 Not attempted due to Medical conditions or safety concerns Transfers (B, C, W/C) (FIM): 3 Scootin Rollin Roll Left to Right (QC): 4 Supine to/from Sit: 4 (pt able to tranisistion sup to sit EOB with min assist and skilled cues for sequencing. ) Sit to/from Stand: 3 (mod assist with come to a stand with heavy cues for sequencing and encouragement) Sit to Lying (QC): 3 Sit to Stand (QC): 3 Chair/[id number]-[id number] Xfer(QC): 3 Car Transfer (QC): 3 Gait Training Does the Patient Walk?: Yes Gait (FIM): 2 Distance (FIM): 1=up to 49 ft Walk 10 feet (QC): 3 (mod assist for balance and safety as well as to weight shift) Walk 50 ft with 2 Turns(QC): 88 Walk 150 ft (QC): 88 Walking 10ft/uneven surface-QC: 88 Gait Assistive Device: FWW Wheelchair Training Does the Pt Use a Wheelchair?: No Stair Training Stairs (FIM): 0 1 Step (curb) (QC): 88 4 Steps (QC): 88 12 Steps (QC): 88 Balance Picking up an Object (QC): 88 ADL-Treatment Toiletin Toileting Hygiene (QC): 1 Toilet/Commode Transfer: 3 Toilet Transfer (QC): 3 Assessment/Plan Assessment and Plan Assess & Plan/Chief Complaint Plan: IRF protocol Zenker's diverticulum consultation with Dr Whalen Pain control but limit due to oversedation propensity Fall risk when drowsy Home meds Reviewed notes (1) S/P total knee arthroplasty Status: Chronic (2) Acute kidney injury superimposed on chronic kidney disease Status: Acute (3) Type 2 diabetes mellitus Status: Chronic (4) Restless leg syndrome Status: Chronic (5) Essential hypertension Status: Chronic (6) Pleuritic chest pain Status: Acute (7) Coronary artery disease Status: Chronic (8) Left lower lobe pneumonia Status: Acute Qualifiers: Pneumonia type: due to unspecified organism Qualified Codes: J18.1 - Lobar pneumonia, unspecified organism (9) Drowsiness Status: Acute (10) Constipation Status: Acute Qualifiers: Constipation type: slow transit constipation Qualified Codes: K59.01 - Slow transit constipation (11) Sepsis due to pneumonia Status: Acute (12) Normocytic anemia Status: Acute (13) Hyperlipidemia Status: Chronic Qualifiers: Hyperlipidemia type: unspecified Qualified Codes: E78.5 - Hyperlipidemia, unspecified OLIVE ISAAC DO Jun 15, 2019 10:26
[2019-06-15] MEDS: inSUlin ASPART (NovoLOG) 1 UNIT/0.01 ML (CHARGE PER UNIT) SC SCH ×9 (11:00→21:00)
[2019-06-15] MEDS ORDERED: LEVOFLOXACIN 750 MG TAB (LEVAQUIN) PO SCH (11:00)
--- NOTE | 2019-06-15 11:05 | NUR ---
RECEIVED REPORT FROM [facility]. PT TRANSFERRED BACK TO ROOM 224 PER BED FROM 410 BY PT.
[2019-06-15 11:13] VITALS: BP 106/68
[2019-06-15] MEDS: BRIMONIDINE 0.2% (ALPHAGAN) OPHTH SOLN 5 ML BTL OU SCH ×7 (11:21→21:16)
[2019-06-15] MEDS: POLYETHYLENE GLYCOL 17 GM (MIRALAX) PACK PO SCH ×5 (11:23→21:28)
[2019-06-15] MEDS: DOCUSATE SODIUM 100 MG (COLACE) CAP PO SCH ×5 (11:23→21:29)
[2019-06-15] MEDS: LABETALOL 200 MG (NORMODYNE) TAB PO SCH ×5 (11:25→21:18)
[2019-06-15] MEDS: GABAPENTIN 300 MG (NEURONTIN) CAP PO SCH ×7 (11:25→21:18)
[2019-06-15] MEDS: SENNA W/DOCUSATE (SENOKOT S) TABLET PO SCH ×5 (11:26→21:28)
[2019-06-15] MEDS: rOPINIRole 1 MG (REQUIP) TABLET PO SCH ×3 (11:26→21:18)
[2019-06-15] MEDS: RT-ALBUTEROL/IPRATROPIUM 3 ML (DUONEB) VIAL INH SCH ×8 (11:27→22:47)
[2019-06-15] MEDS: PANTOPRAZOLE 40 MG (PROTONIX) TAB PO SCH ×2 (11:28→11:35)
[2019-06-15] MEDS: HYDROXYCHLOROQUINE 200 MG (PLAQUENIL) TAB PO SCH ×4 (11:28→17:29)
[2019-06-15] MEDS: DULoxetine 30 MG (CYMBALTA) CAP PO SCH ×2 (11:28→11:35)
[2019-06-15] MEDS: ASPIRIN E.C. 325 MG (ECOTRIN) TABLET PO SCH ×2 (11:29→11:37)
[2019-06-15] MEDS: FUROSEMIDE 40 MG (LASIX) TAB PO SCH ×2 (11:29→11:37)
[2019-06-15] MEDS: amLODIPine 10 MG (NORVASC) TAB PO SCH ×2 (11:30→11:38)
[2019-06-15] MEDS: toPIRamate 25 MG (TOPAMAX) TAB PO SCH ×2 (11:30→11:38)
[2019-06-15] MEDS: rOPINIRole 0.25 MG (REQUIP) TAB PO SCH ×2 (11:30→11:38)
[2019-06-15] MEDS: oxyCODONE/APAP 10/325MG (PERCOCET 10) TABLET PO PRN ×3 (12:01→21:54)
--- NOTE | 2019-06-15 12:01 | NUR ---
Pt is Protestant. provided prayer alise Communion and obtained consent for [employer] notification.
[2019-06-15] MEDS ORDERED: MAGIC MOUTHWASH, ADULT 155 ML BOTTLE PO SCH (12:36)
[2019-06-15] MEDS: MAGIC MOUTHWASH (ADULT) PO SCH ×12 (13:43→21:29)
--- NOTE | 2019-06-15 13:45 | Consultation - Surgery ---
CHUCHO BARLOW,MED STUDENT 06/15/19 1345: History of Present Illness History of Present Illness Patient Consulted On(anthony/time) 06/15/19 13:34 Date Seen by Provider: Jun 15, 2019 Time Seen by Provider: 13:20 History of Present Illness Beginning in 2015, patient had dysphagia and odynophagia and diagnosed with Zenker's. She was treated surgically for Zenker's diverticulitis in 2015 and 201 7 after recurrence of pain. Since Saturday, pt complains of same pain as before her surgical repair but worse than it has ever been. Pain is sharp, worse with swallowing, and makes her cough with such force she becomes urinary incontinent. Pain radiates down her chest and is associated with nausea and vomiting. Cold liquids, such as sprite make it better. Foods such as mashed potatoes make her dysphagia worse. Allergies and Home Medications Allergies Coded Allergies: clopidogrel (Verified Allergy, Severe, BLOOD CLOTS, 11/27/18) Penicillins (Verified Allergy, Mild, RASH, 11/27/18) carisoprodol (Verified Allergy, Mild, RASH, 11/27/18) cephalexin (Verified Allergy, Mild, RASH, 11/27/18) ketorolac (Verified Allergy, Mild, RASH, 11/27/18) prochlorperazine (Verified Allergy, Mild, RASH, 11/27/18) Carbamates (Verified Allergy, Unknown, Rash, 05/28/19) Home Medications Amlodipine Besylate 10 Mg Tablet, 10 MG PO DAILY, (Reported) Atorvastatin Calcium 80 Mg Tablet, 40 MG PO HS, (Reported) TAKE 1/2 OF 80MG TAB Baclofen 10 Mg Tablet, 10 MG PO TID PRN for MUSCLE SPASMS, (Reported) Brimonidine Tartrate 5 Ml Btl, 1 DROP OU TID, (Reported) 0.15% Butalbit/Acetamin/Caff/Codeine 1 Each Capsule, 1 CAP PO TID PRN for MIGRAINE, (Reported) Carboxymethylcellulos/Glycerin 10 Ml Drops.gel, 1 DROP OD TID, (Reported) USE RIGHT BEFORE BRIMONIDINE EYE DROPS Duloxetine HCl 30 Mg Capsule.dr, 30 MG PO DAILY, (Reported) TAKE ALONG WITH 60MG CAP FOR A TOTAL DAILY DOSE OF 90MG Duloxetine HCl 60 Mg Capsule.dr, 60 MG PO DAILY, (Reported) TAKES ALONG WITH 30MG CAPSULE FOR A TOTAL DAILY DOSE OF 90MG Folic Acid 1 Mg Tablet, 1 MG PO DAILY, (Reported) Furosemide 40 Mg Tablet, 40 MG PO DAILY, (Reported) Gabapentin 300 Mg Capsule, 300 MG PO BID, (Reported) Glipizide 5 Mg Tablet, 5 MG PO DAILY, (Reported) Hydroxychloroquine Sulfate 200 Mg Tablet, 400 MG PO DAILY, (Reported) Labetalol HCl 200 Mg Tablet, 400 MG PO DAILY, (Reported) TAKE 2 (200MG) TABS Pantoprazole Sodium 40 Mg Tablet.dr, 40 MG PO DAILY, (Reported) Ropinirole HCl 0.5 Mg Tablet, 1 MG PO HS, (Reported) TAKE 2 (.5MG) TABS Ropinirole HCl 0.5 Mg Tablet, 0.5 MG PO DAILY, (Reported) Topiramate 25 Mg Tablet, 25 MG PO HS, (Reported) Topiramate 50 Mg Tablet, 75 MG PO DAILY, (Reported) TAKE 1 & 1/2 OF 50MG TAB Tramadol HCl 50 Mg Tablet, 100 MG PO Q6H PRN for PAIN-MODERATE, (Reported) Patient Home Medication List Home Medication List Reviewed: Yes Past Ebgmygc-Dfczpt-Gcpjrc Hx Patient Social History Alcohol Use: Denies Use Recreational Drug Use: No Smoking Status: Never a Smoker 2nd Hand Smoke Exposure: No Recent Foreign Travel: No Contact w/Someone Who Travel: No Recent Infectious Disease Expo: Yes Recent Hopitalizations: No Physical Abuse Screen: No Sexual Abuse: No Immunizations Up To Date Date of Pneumonia Vaccine: Jul 29, 2017 Date of Influenza Vaccine: Jul 28, 2018 Seasonal Allergies Seasonal Allergies: No Surgeries History of Surgeries: Yes (R CTR, espohageal ligation x2, Hernia, L RCR, L TKR, laparotomy, MRSA infec) Surgeries: Hysterectomy, Joint Replacement (b/l), Thyroidectomy Respiratory History of Respiratory Disorde: No Cardiovascular History of Cardiac Disorders: Yes (HX HEART CATH-STENT) Cardiac Disorders: Heart Attack, High Cholesterol, Hypertension Neurological History of Neurological Disord: Yes Neurological Disorders: Headaches /Migraines Reproductive System Sexually Transmitted Disease: No HIV/AIDS: No Genitourinary History of Genitourinary Disor: Yes (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, STAGE 2- kidneys look good now ) Genitourinary Disorders: Bladder Infection, Renal Failure Gastrointestinal History of Gastrointestinal Di: Yes (HX GI BLEED, zenkers syndrome-chokes easily, hx hep A) Gastrointestinal Disorders: Gastroesophageal Reflux, Hepatitis Musculoskeletal History of Musculoskeletal Dis: Yes (OSTEOARTHRITIS, BULGING DISCS) Musculoskeletal Disorders: Arthritis, Chronic Back Pain Endocrine History of Endocrine Disorders: Yes (partial thyroidectomy) Endocrine Disorders: Diabetes, Non-Insulin dep HEENT History of HEENT Disorders: Yes (GLASSES, UPPER DENTURES) Loss of Vision: Bilateral Cancer History of Cancer: Yes Cancer: Breast Psychosocial History of Psychiatric Problem: No Integumentary History of Skin or Integumenta: No Blood Transfusions History of Blood Disorders: Yes (IRON DEFFICIENCY ANEMIA-GETS IRON INFUSIONS) Adverse Reaction to a Blood Tr: No (HAS HAD BLOOD WITH NO REACTION) Family Medical History Significant Family History: Hypertension (Brother) Family Medial History: Hypertension G8 BROTHER Not obtainable due to adoption 19 FATHER Review of Systems-General Constitutional: No chills, No diaphoresis; fever EENTM: No hearing loss, No ear pain, No eye pain, No vision loss Respiratory: cough; No short of breath Cardiovascular: No chest pain; edema; No syncope Gastrointestinal: No abdominal pain, No constipation, No diarrhea; dysphagia (both solids and liquids); No melena; nausea, vomiting Genitourinary: frequency, incontinence (stress) Musculoskeletal: back pain, joint pain Skin: No lesions, No lumps, No rash; other (venostasis dermatitis ) Psychiatric/Neurological: Denies Anxiety; Depressed, Headache (hx migraines ) Other States she has heat intolerance. No cold intolerance. States she has been told she has a bleeding disorder but could not recall what. Physical Exam-General Problems Physical Exam Vital Signs Vital Signs - First Documented 06/13/19 06/13/19 10:00 12:51 Temp 98.4 Pulse 100 Resp 18 B/P (MAP) 107/64 Pulse Ox 91 O2 Delivery Nasal Cannula O2 Flow Rate 2.00 Capillary Refill : General Appearance: WD/WN, no apparent distress Eyes: Bilateral Eye PERRL, Bilateral Eye EOMI HEENT: No scleral icterus (R), No scleral icterus (L), No pale conjunctivae (R), No pale conjunctivae (L) Neck: non-tender, supple; No thyromegaly Respiratory: chest non-tender, lungs clear, normal breath sounds, no respiratory distress, no accessory muscle use Cardiovascular: normal peripheral pulses, regular rate, rhythm Peripheral Pulses: 2+ Dorsalis Pedis (R), 2+ Left Dors-Pedis (L), 2+ Radial Pulses (R), 2+ Radial Pulses (L) Rectal: deferred Extremities: pedal edema, slow capillary refill, swelling Neurologic/Psychiatric: no motor/sensory deficits, alert, normal mood/affect, oriented x 3 Skin: ecchymosis (b/l LE ) Lymphatic: no adenopathy (Cervical, supra and infraclavicular ) Assessment/Plan Assessment/Plan Assessment/Plan S/p R total knee replacement Anemia Zenker's diverticulum Repeat blood work. Continue IVF and switch to dysphagia diet. Consider myotomy pending results of barium swallow study. Clinical Quality Measures DVT/VTE Risk/Contraindication: Risk Factor Score Per Nursin RFS Level Per Nursing on Admit: 4+=Very High MIKE WHALEN DO 06/15/19 1448: History of Present Illness History of Present Illness Time Seen by Provider: 14:22 History of Present Illness When I spoke to pt and asked her about her Zenckers Diverticulum she states she went to and they told her it would be too hard to do surgery; it would decrease her stomach motility, she would be in the hospital 3-4 weeks after surgery, and was told it would only get 50% better. She decided she didnt want any surgery if that was the case. I know what to eat and what to avoid and then I can get by. She also thinks that her pneumonia is making things worse; her main complaint now is a sore throat. She reports that things were ok until she had the surgery. Allergies and Home Medications Allergies Coded Allergies: clopidogrel (Verified Allergy, Severe, BLOOD CLOTS, 11/27/18) Penicillins (Verified Allergy, Mild, RASH, 11/27/18) carisoprodol (Verified Allergy, Mild, RASH, 11/27/18) cephalexin (Verified Allergy, Mild, RASH, 11/27/18) ketorolac (Verified Allergy, Mild, RASH, 11/27/18) prochlorperazine (Verified Allergy, Mild, RASH, 11/27/18) Carbamates (Verified Allergy, Unknown, Rash, 05/28/19) Home Medications Amlodipine Besylate 10 Mg Tablet, 10 MG PO DAILY, (Reported) Atorvastatin Calcium 80 Mg Tablet, 40 MG PO HS, (Reported) TAKE 1/2 OF 80MG TAB Baclofen 10 Mg Tablet, 10 MG PO TID PRN for MUSCLE SPASMS, (Reported) Brimonidine Tartrate 5 Ml Btl, 1 DROP OU TID, (Reported) 0.15% Butalbit/Acetamin/Caff/Codeine 1 Each Capsule, 1 CAP PO TID PRN for MIGRAINE, (Reported) Carboxymethylcellulos/Glycerin 10 Ml Drops.gel, 1 DROP OD TID, (Reported) USE RIGHT BEFORE BRIMONIDINE EYE DROPS Duloxetine HCl 30 Mg Capsule.dr, 30 MG PO DAILY, (Reported) TAKE ALONG WITH 60MG CAP FOR A TOTAL DAILY DOSE OF 90MG Duloxetine HCl 60 Mg Capsule.dr, 60 MG PO DAILY, (Reported) TAKES ALONG WITH 30MG CAPSULE FOR A TOTAL DAILY DOSE OF 90MG Folic Acid 1 Mg Tablet, 1 MG PO DAILY, (Reported) Furosemide 40 Mg Tablet, 40 MG PO DAILY, (Reported) Gabapentin 300 Mg Capsule, 300 MG PO BID, (Reported) Glipizide 5 Mg Tablet, 5 MG PO DAILY, (Reported) Hydroxychloroquine Sulfate 200 Mg Tablet, 400 MG PO DAILY, (Reported) Labetalol HCl 200 Mg Tablet, 400 MG PO DAILY, (Reported) TAKE 2 (200MG) TABS Pantoprazole Sodium 40 Mg Tablet.dr, 40 MG PO DAILY, (Reported) Ropinirole HCl 0.5 Mg Tablet, 1 MG PO HS, (Reported) TAKE 2 (.5MG) TABS Ropinirole HCl 0.5 Mg Tablet, 0.5 MG PO DAILY, (Reported) Topiramate 25 Mg Tablet, 25 MG PO HS, (Reported) Topiramate 50 Mg Tablet, 75 MG PO DAILY, (Reported) TAKE 1 & 1/2 OF 50MG TAB Tramadol HCl 50 Mg Tablet, 100 MG PO Q6H PRN for PAIN-MODERATE, (Reported) Patient Home Medication List Home Medication List Reviewed: Yes Past Jbcfjwm-Ezhbah-Ixoajh Hx Family Medical History Family Medial History: Hypertension G8 BROTHER Not obtainable due to adoption 19 FATHER Review of Systems-General Gastrointestinal: No other (trouble swallowing and pain when she swallows) Assessment/Plan Assessment/Plan Assessment/Plan Dysphagia -Oropharyngeal phase I believe most of pts problem is probably from recent intubation; which was worsened by her coughing. She was given some swish and swallow and this helped; should continue as long as it helps. Trying to stay on same diet that avoids the foods which cause problems would also be best. No surgery indicated at this time, will follow patient as long as it is necessary. Supervisory-Addendum Brief Verification & Attestation Participated in pt care: history, MDM, physical Personally performed: exam, history, MDM Care discussed with: Medical Student Procedures: n/a Verification and Attestation of Medical Student E/M Service A medical student performed and documented this service in my presence. I reviewed and verified all information documented by the medical student and made modifications to such information, when appropriate. I personally performed the physical exam and medical decision making. Mike Whalen, Jun 15, 2019,14:54 CHUCHO BARLOW,MED STUDENT Jun 15, 2019 13:45 MIKE WHALEN DO Jun 15, 2019 14:48
--- NOTE | 2019-06-15 14:21 | NUR ---
Have sent both of pt's eyedrops down to Pharmacy for them to apply new label. Unable to administer at this time, as they have not been sent back to unit yet. Dr. Whalen here to see pt.
--- NOTE | 2019-06-15 14:24 | NUR ---
Pt was inct of lg amt urine in bed earlier this morning when PT was helping pt to get OOB. Pt states, "it must have happened when I coughed." Assisted to clean up, & change clothes, linens, diaper.
--- NOTE | 2019-06-15 14:30 | Occupational Therapy Eval ---
OT Evaluation-General/PLF Medical Diagnosis Admission Date Jun 13, 2019 at 09:50 Medical Diagnosis: Right TKA Onset Date: Jun 09, 2019 Therapy Diagnosis Therapy Diagnosis: Decreased ADL skills Height/Weight Height (Feet): 5 Height (Inches): 4.00 Weight (Pounds): 213 Weight (Ounces): 0.8 Precautions Precautions/Isolations: Fall Prevention, Standard Precautions Weight Bear Status Weight Bearing Restriction: Weight Bearing/Tolerated Referral Physician: Molly Referral Reason: Activity Tolerance, Self Care, Evaluation/Treatment, Strengthening/ROM Medical History Pertinent Medical History: DM, HTN, OA Additional Medical History Esophageal varices Current History Pt. states that she had an elective knee surgery. Reports having a sore throat since surgery, but that she has had trouble swallowing for several years due to esophageal varices. Reviewed History: Yes Social History Home: Single Level Current Living Status: Alone Entry Into Home: Stairs With Railing Steps Into Home: 2 Steps Inside Home: 0 ADL-Prior Level of Function Therapy Code Descriptions/Definitions Functional [place] Measure: 0=Not Assessed/NA 4=Minimal Assistance 1=Total Assistance 5=Supervision or Setup 2=Maximal Assistance 6=Modified [place] 3=Moderate Assistance 7=Complete [place] Therapy Quality Codes: 6 Independent with activity with or without an assistive device 5 Patient requires set up or clean up by helper. Patient completes activity by themselves 4 Supervision or touching assist (CGA). [place] provide cues , steadying assist 3 The helper provides less than half the effort to complete the activity 2 The helper provides more than half the effort to complete the activity 1 Dependent. The helper does all the effort to complete an activity 7 Patient refused to complete or attempt activity 9 The patient did not perform the activity before the current illness or injury 88 Not attempted due to Medical conditions or safety concerns Functional Abilities and Goals: Independent: Patient completed the activities by him/herself, with or without an assistive device, with no assistance from a helper. Needed Some Help: Patient needed partial assistance from another person to complete activities. Dependent: A helper completed the activities for the patient. Unknown: Not Applicable: Self Care: Independent Functional Cognition: Unknown DME/Equipment: Bath Chair, Grab Bars, Tub/Shower DME/Equipment Comments Pt. 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 reports having pain in her throat and in her knee. Does not state a pain level. Nursing does give pt. pain medication. Appearance Pt. in bed when OT enters room. Mental Status/Objective Patient Orientation: Person, Place Current Glasses/Contacts: Yes Hand Dominance: Right Upper Extremity ROM Right shoulder is limited due to arthritis. Left shoulder is WFL. Pt. had a previous shoulder replacement in left side. ADL-Treatment Eating (FIM): 5 (Set up) Eating (QC): 5 Lower Body Dressing (FIM): 2 (Unable to doff slipper socks without equipment. SBA to doff socks with AE, but mod assist to don sandals and adjust them for swelling. Pt. reports that she does not wear socks at home, and only wears sandals.) Lower Body Dressing (QC): 2 On/Off Footwear (QC): 2 Transfers (B, C, W/C) (FIM): 4 Pt. transferred to this floor from fourth floor. States that she already bathed and that PT assisted her with dressing. Pt. declines overall dressing again. Agrees to practice doffing socks and donning sandals. Pt. requires encouragement and increased time. Completed partial co-treat with PT due to pt's fatigue and pain level. PT gathered information regarding transfers and completed LE exercises while OT facilitated UE exercises and assessed LE dressing and equipment education. Pt. educated on all other AE. Completed 20 bilateral hand squeezes with pink therapy sponge for increased hand strength. Also tolerated 3 bilateral UE exercises x 15 reps each with red theraband in all planes to increase overall endurance and strength. Pt. requires cues to continue with each exercise. Pt. is able to begin eating with set up of tray. OT assisted her later with ordering vanilla shake. Pt. does not like it stating that its "too rich." All needs met in room after assessment. Pt. educated on OT goals as well as rehab goals. Education OT Patient Education: Correct positioning, Exercise program, Modified ADL techniques, Progress toward Goal/Update tx plan, Purpose of tx/functional activities, Reviewed precautions, Rehab process, Transfer techniques, Use of adapted equipment Teaching Recipient: Patient Teaching Methods: Demonstration, Discussion Response to Teaching: Verbalize Understanding, Return Demonstration OT Short Term Goals Short Term Goals Time Frame: Jun 20, 2019 Eating(FIM): 6 Grooming(FIM): 5 Bathing(FIM): 4 Upper Body Dressing(FIM): 4 Lower Body Dressing(FIM): 4 Toileting(FIM): 4 Transfers (B,C,W/C) (FIM): 5 Toilet/Commode Transfer(FIM): 5 Shower Transfer(FIM): 4 Additional Short Term Goals: 1-Demonstrate ADL Tasks, 2-Verbalize Understanding, 3-ImproveStrength/Tay 1=Demonstrate adherence to instructed precautions during ADL tasks. 2=Patient will verbalize/demonstrate understanding of assistive devices/modifications for ADL. 3=Patient will improve strength/tolerance for activity to enable patient to perform ADL's. OT Nutrition Internship Goals Nutrition Internship Goals Time Frame: Jul 04, 2019 Eating (FIM): 6 Eating (QC): 6 Groomin Oral Hygiene (QC): 6 Bathing(FIM): 5 Shower/Bathe Self (QC): 5 Upper Body Dressing(FIM): 6 Upper Body Dressing (QC): 6 Lower Body Dressing(FIM): 5 Lower Body Dressing (QC): 5 On/Off Footwear (QC): 5 Toileting(FIM): 6 Toileting Hygiene (QC): 6 Toilet/Commode Transfer(FIM): 6 Toilet/Commode Transfer (QC): 6 Shower Transfer(FIM): 5 Additional Goals: 1-Demonstrate ADL Tasks, 2-Verbalize Understanding, 3- ImproveStrength/Tay 1=Demonstrate adherence to instructed precautions during ADL tasks. 2=Patient will verbalize/demonstrate understanding of assistive devices/modific ations for ADL. 3=Patient will improve strength/tolerance for activity to enable patient to perform ADL's. OT Education/Plan Problem List/Assessment Assessment: Decreased Activ Tolerance, Decreased UE Strength, Dependent Transfers, Impaired Bed Mobility, Impaired Cognition, Impaired I ADL's, Impaired Self-Care Skills, Restricted Funct UE ROM Pt s/p right TKA with decreased mobility, strength, activity tolerance, and ADL functioning. Pt to benefit from skilled OT intervention for ADL training, transfers, strengthening, and home safety education to increase independence and allow safe discharge plan. Discharge Recommendations Plan/Recommendations: Continue POC Treatment Plan/Plan of Care Treatment,Training & Education: Yes Patient would benefit from OT for education, treatment and training to promote independence in ADL's, mobility, safety and/or upper extremity function for ADL's. Plan of Care: ADL Retraining, Functional Mobility, Group Exercise/Act as Ind, UE Funct Exercise/Act Treatment Duration: Jul 04, 2019 Frequency: At least 5 of 7 days/Wk (IRF) Estimated Hrs Per Day: 1.5 hours per day Agreement: Yes Rehab Potential: Fair Time/GCodes Start Time: 11:35 Stop Time: 13:50 Total Time Billed (hr/min): 75 Billed Treatment Time 3349-4856 1, ADL x 20minutes 9814-7712 1, ADL x 35minutes- co-treat with PT. Please see above note for designated roles. [id number] Ex x 20minutes Pt. re-assessed with evaluation form due to interrupted stay. Will continue with same goals. DANELLE PINO OT Jun 15, 2019 14:30
--- NOTE | 2019-06-15 14:30 | Physical Therapy Daily Note ---
PT Daily Note-Current Subjective Agrees to PT but reports "It is hell." Reports she has been very busy this morning and feel sshe needs a break. AFter encouragment, she did participate. Pain Numeric Pain Scale: 5-Moderate Pain Location: Right Location Body Site: Knee Pain Description: Ache Mental Status Patient Orientation: Person, Confused, Place, Time, Situation Pt is oriented but her train of thought is easily distracted and she has difficulty following sequence to tell a story or complete a task. Pt uses foul language often but at times it does not meet correct context. Transfers Therapy Code Descriptions/Definitions Functional Desha Measure: 0=Not Assessed/NA 4=Minimal Assistance 1=Total Assistance 5=Supervision or Setup 2=Maximal Assistance 6=Modified Desha 3=Moderate Assistance 7=Complete Desha Therapy Quality Codes: 6 Independent with activity with or without an assistive device 5 Patient requires set up or clean up by helper. Patient completes activity by themselves 4 Supervision or touching assist (CGA). [place] provide cues , steadying assist 3 The helper provides less than half the effort to complete the activity 2 The helper provides more than half the effort to complete the activity 1 Dependent. The helper does all the effort to complete an activity 7 Patient refused to complete or attempt activity 9 The patient did not perform the activity before the current illness or injury 88 Not attempted due to Medical conditions or safety concerns Transfers (B, C, W/C) (FIM): 4 Supine to/from Sit: 4 Sit to/from Stand: 4 Pt requires min assist for functional transfers and heavy cues for sequencing and task breakdown. In addition, she requires cues to stay on task and to participate Weight Bearing Right Lower Extremity: Right Full Weight Bearing Left Lower Extremity: Left Full Weight Bearing Gait Training Does the Patient Walk?: Yes Gait (FIM): 2 Distance (FIM): 9=519-92 ft Distance: 50 ft x 3 Walk 10 feet (QC): 4 Walk 50 ft with 2 Turns(QC): 4 Walk 150 ft (QC): 88 (unable to walk this distanc.e ) Walking 10ft/uneven surface-QC: 88 (unsafe to attempt at this time due to fall risk) Gait Assistive Device: FWW Pt walks with a step to gait with the left LE and tends to ER the left foot and she turns her body to lead with her right hip. Slow gait and poor foot clearance or heel toe pattern. Stair Training Stairs (FIM): 0 1 Step (curb) (QC): 1 4 Steps (QC): 88 12 Steps (QC): 88 Pt unable to effectively lift her foot to attempt steps. poor foot clearance or lift limits her abioltiy to step up on a step. Exercises Supine Ex: Ankle pumps, Quad Set, Heel Slides, Short Arc Quads Supine Reps: 10 (Right LE strength and ROM to promote improved gait and transfers. ) Seated Therapy Exercises: Ankle pumps, Long arc quads, Hip flexion Seated Reps: 10 Treatments Co treat with OT partial visit to incorporate ADL tasks with functional transfers, mobiltiy and balance. Skill of 2 clinicians required to coordinate U and LE use and effective movement. Pt has some difficutly problem solving and processing skilled cues and need for 2 clinicians to provide verbal and tactile feedback to complete tasks. As OT addressed self care PT addressed static and dynamic balance in sitting and standing as well as functional transfers with sequencing and maintaining safety. Assessment Current Status: Good Progress Pt is improved this date compared to evaluation on 06/13/19. She follows cues but requires heavy cues to sequence and to participate. Pt suggests that she does not wish to be here on this unit. Pt is easily distracted and her train of thought does not always follow. Pt had an interupted visit on this unit, but reassessment this visit reveals that her POC and goals will remain unchanged PT Short Term Goals Short Term Goals Time Frame: Jun 26, 2019 Transfers (B,C,W/C) (FIM): 4 Gait (FIM): 4 PT Correction Goals Estimator Project Manager Goals PT Estimator Project Manager Goals Time Frame: Jul 10, 2019 Transfers (B,C,W/C) (FIM): 7 Sit to Lying (QC): 6 Lying-Sitting on Side/Bed(QC): 6 Sit to Stand (QC): 6 Rollin Roll Left to Right (QC): 6 Chair/Cpk-rl-Obiah Xfer(QC): 6 Car Transfer (QC): 6 Does the Patient Walk: Yes Gait (FIM): 6 Gait distance (FIM): 3=150 ft Walk 10 feet (QC): 6 Walk 10ft-Uneven Surface(QC): 6 Walk 50ft with 2 Turns (QC): 6 Walk 150 ft (QC): 6 Gait Assistive Device: FWW Does the Pt use WC or Scooter?: No Stairs (FIM): 5 # of Steps: 4 1 Step (curb) (QC): 6 4 Steps (QC): 6 12 Steps (QC): 9 Picking up an Object (QC): 4 PT Plan Problem List Problem List: Activity Tolerance, Functional Strength, Safety, Balance, Gait, Transfer, Bed Mobility, ROM Treatment/Plan Treatment Plan: Continue Plan of Care Treatment Plan: Bed Mobility, Education, Functional Activity Tay, Functional Strength, Group Therapy, Gait, Safety, Therapeutic Exercise, Transfers Treatment Duration: Jul 10, 2019 Frequency: At least 5 of 7 days/Wk (IRF) Estimated Hrs Per Day: 1.5 hours per day Patient and/or Family Agrees t: Yes Safety Risks/Education Patient Education: Transfer Techniques, Safety Issues Teaching Recipient: Patient Teaching Methods: Demonstration, Discussion Response to Teaching: Reinforcement Needed Time/GCodes Time In: 1200 Time Out: 1330 (co treat with OT [id number]) Total Billed Treatment Time: 90 Total Billed Treatment visit FA 60 NM 30 PORTER OGDEN PT Jun 15, 2019 14:29
--- NOTE | 2019-06-15 15:10 | ST Cognitive Linguistic Eval ---
Speech Evaluation-General Medical Diagnosis Right TKA Onset Date: Jun 09, 2019 Therapy Diagnosis Therapy Diagnosis: Cognitive-communication Precautions Precautions: Fall Precautions/Isolations: Fall Prevention, Standard Precautions Referral Referring Physician: Dr. Barnes Reason for Referral: Evaluation/Treatment Medical History Pertinent Medical History: DM, HTN, OA OA, HTN, DM Current History Right TKA Reviewed History: Yes Social History Home: Single Level Current Living Status: Alone Speech PLF-Current Status Prior Level of Function The patient lives alone and was independent for her daily needs prior to surgery. She does have a son nearby whom she reports she sees every morning. Subjective The patient was cooperative with the cognitive evaluation process. Language Eval: Auditory Comprehends Simple Yes/No Ques: Functional Indent/Objects Multiple Ge: Functional Ident/Pics in Multiple Ge: Functional Follows 1-Step Commands: Functional Follows Complex Directions: Moderate Follows General Conversations: Mild Language Eval: Verbal Language Completes Spontaneous Greeting: Functional Produces Auto, Serial Info: Functional Imitates Simple Words/Phrases: Functional Word Finding: Mild Requests Basic Needs: Functional States Basic Personal Info: Mild Expresses Complex Ideas: Moderate Objective Cognitive Domain Attention: WNL Memory: Mild Problem Solving: Mild Executive Functions: WNL Visuospatial Skills: WNL Composite Severity Rating: Mild Clock Drawing Severity Rating: WNL Score: 20/30 Range: Dementia range of function Patient is a poor historian Objective Formal/Standardized Tests [facility] Mental Status ([facility]) Results 20/30, Dementia range of function Oral Motor/Speech Production Within Functional Limits Impression The patient is a 68 year old female who was admitted to the SDU s/p total knee replacement. The patient is noted to be a poor historian. She is also noted to have difficulty following a train of thought or processing of information. The patient was given the [facility] with a final score of 20/30 which indicates the dementia range of function. The patient will receive skilled ST services with focus on improving safety awareness and independence in order to return home safely. Communication/Social Cognition Comprehension: 5 Expression: 5 Social Interaction: 4 Problem Solvin Memory: 4 Speech Patient Assess Expression of Ideas/Wants: Frequently (2) Understanding Verbal Content: Sometimes Understands(2) Brief Interview-Mental Status: Yes Repetition of Three Words: Three (3) Temporal Orientation: Year: Correct (3) Temporal Orientation: Month: Accurate within 5 days(2) Temporal Orientation: Day: Correct (1) Recall : Wear to say "Sock": Yes,after cueing (1) Recall : Color: No, could not recall (0) Recall : Bed: Yes,after cueing (1) Memory/Recall Ability: Current season, That he or she is in a hsp/hsp unit Speech Short Term Goals Short Term Goals Short Term Goals 1) The patient will complete memory tasks related to her daily needs at 90% or greater with minimal cues. 2) The patient will complete problem solving tasks related to her daily needs at 90% or greater with minimal cues. 3) The patient will complete safety awareness tasks related to her daily needs at 90% or greater with minimal cues. Speech Product Support Technician Goals Detention Goals The patient will improve safety awareness and independence in order to safely return home. Speech-Plan Patient/Family Goals Patient/Family Goals: The patient plans on returning to her home where she lived alone. She does have family support near by. Treatment Plan Speech Therapy Treatment Plan: Concurrent Therapy The patient qualifies for skilled ST for cognitive functioning improvement. Treatment Duration: Jun 26, 2019 Frequency: 5 times per week Estimated Hrs Per Day: .5 hour per day Rehab Potential: Guarded Barriers to Learning: Patient exhibits dementia range of function. Safety Risks/Education Teaching Recipient: Patient Teaching Methods: Discussion Response to Teaching: Verbalize Understanding Education Topics Provided: Safety within her room and communication of her wants/needs Time Speech Therapy Time In: 14:45 Speech Therapy Time Out: 15:00 Total Billed Time: 15 Billed Treatment Time 1, SPSNDCOMP VÍCTOR Hodge Jun 15, 2019 15:09
--- NOTE | 2019-06-15 15:36 | NUR ---
CALL MADE TO PHARMACY THAT UNABLE TO ADMINISTER EYE DROPS HAVEN'T RECEIVED BACK FROM PHARMACY. SPOKE Bernardino ORTIZ.
[2019-06-15 18:33] VITALS: BP 112/64
--- NOTE | 2019-06-15 19:11 | NUR ---
bedside report received from JORDEN NEAL, assume care of pt
--- NOTE | 2019-06-15 20:46 | Individualized Plan of Care ---
Individualized Plan of Care Rehab Nursing IPOC Order Admission Date Jun 13, 2019 at 09:50 Current Orders Orders Admission Order(Inpt,Obs,Sdc) (06/12/19 21:16) Vital Signs: Per Unit Policy ( 08,16,00 (06/12/19 21:16) Licensed Occupational Therapist-Inpt Rehab Con (06/12/19 21:16) Rehab Nursing Orders-Ipoc (06/12/19 21:16) Physical Therapy Rehab Orders (06/12/19 21:16) Occupational Therapy Rehab Ord (06/12/19 21:16) Speech Therapy Rehab Orders (06/12/19 21:16) General/Regular (06/13/19 Breakfast) Intake & Output 06,14,22 (06/12/19 21:16) Weekly Weight (Lbs) WEEK (06/12/19 21:16) Rehab-Intensity Of Therapy (06/12/19 21:16) Initiate Admission Nursing Pro .admission (06/12/19 21:16) Initiate Admission Nursing Pro .admission (06/12/19 21:16) Acetaminophen Tablet (Tylenol Tablet) (06/12/19 21:30) Alprazolam Tablet (Xanax Tablet) (06/12/19 21:30) Calcium Carbonate Chew Tablet (Antacid C (06/12/19 21:30) Diphenhydramine Tablet (Benadryl Tablet) (06/12/19 21:30) Docusate Sodium Capsule (Colace Capsule) (06/12/19 21:30) Loperamide Tablet (Imodium Tablet) (06/12/19 21:30) Ondansetron Oral Dissolve Tab (Zofran (06/12/19 21:30) Senna S Tablet (Senokot S Tablet) (06/13/19 09:00) Melatonin Tablet (Melatonin Tablet) (06/12/19 21:30) Patient Visit (06/13/19 ) Pt Eval Moderate Complexity (06/13/19 ) Patient Visit (06/13/19 ) Functional Activities, Ea 15 (06/13/19 ) Dvt/Vte Risk - Notifiy Physici .ONCE (06/13/19 11:45) Accucheck Achs ACHS (06/13/19 11:43) Ambulate 08,12,20 (06/13/19 11:43) Dressing Order (Intervention) ONCE (06/13/19 11:43) Iv Start Anesthesia (Order) (06/13/19 11:43) Oxygen-Administer (06/13/19 11:43) Sequential Compression Device , (06/13/19 11:43) Sam Hose , (06/13/19 11:43) Aspirin Enteric Coated Tablet (Ecotrin T (06/14/19 09:00) Acetaminophen Tablet/Caplet (Tylenol T (06/13/19 11:45) Albuterol/Ipra Inhalation Soln (Duoneb I (06/13/19 14:00) Baclofen Tablet (Lioresal Tablet) (06/13/19 11:45) Diphenhydramine Injection (Benadryl Inje (06/13/19 11:45) Bisacodyl Suppository (Dulcolax Supposit (06/13/19 11:45) Brimonidine 0.2% Ophth Soln (Alphagan (06/13/19 13:00) Duloxetine Capsule (Cymbalta Capsule) (06/14/19 09:00) Docusate Sodium Capsule (Colace Capsule) (06/13/19 21:00) Furosemide Tablet (Lasix Tablet) (06/14/19 09:00) Gabapentin Capsule/Tablet (Neurontin Cap (06/13/19 13:00) Heparin Injection (Heparin Injection) (06/13/19 13:30) Hydroxychloroquine Sulfate (Plaquenil) (06/13/19 17:00) Labetalol Tablet (Normodyne Tablet) (06/13/19 21:00) Levofloxacin Tablet (Levaquin Tablet) (06/15/19 11:00) Melatonin Tablet (Melatonin Tablet) (06/13/19 11:45) Ondansetron Injection (Zofran Injectio (06/13/19 11:45) Pantoprazole Tablet (Protonix Tablet) (06/14/19 07:00) Polyethylene Glycol Powder Pkt (Miralax (06/13/19 21:00) Senna S Tablet (Senokot S Tablet) (06/13/19 21:00) Topiramate Tablet (Topamax Tablet) (06/14/19 09:00) Amlodipine Tablet (Norvasc Tablet) (06/14/19 09:00) Insulin Aspart (Novolog) (Novolog (Charg (06/13/19 16:00) Oxycodone/Acet 10/325mg Tablet (Percocet (06/13/19 11:45) Ropinirole Tablet (Requip Tablet) (06/14/19 09:00) Ropinirole Tablet (Requip Tablet) (06/13/19 21:00) Tramadol Tablet (Ultram Tablet) (06/13/19 11:45) Consult Physician (06/13/19 11:43) Incentive Spirometry Initial (06/13/19 11:43) Mat Initiate Protocol (06/13/19 11:43) Oxygen Delivery Set Up (06/13/19 11:43) Svn Small Volume Nebulizer (06/13/19 11:43) Svn Small Volume Nebulizer (06/13/19 11:43) Incentive Spirometry (Nursing) Q2H (06/13/19 11:43) Cho 60g/M 3snack (16-2000 Malcolm) (06/13/19 Dinner) Troponin I (06/13/19 17:35) Ekg Tracing (06/13/19 17:35) Consult Physician (06/13/19 17:35) Transfer To Cardiac Step Down ONCE (06/13/19 18:36) Admission Arrival Bed Request (06/15/19 11:05) Consult Orthopedic Surgery (06/15/19 11:46) Nursing Communication (Order) (06/15/19 12:04) Consult General Surgery (06/15/19 12:06) Magic Mouthwash, Adult (Magic Mouthwash, (06/15/19 12:36) Nystatin Susp For Compounding (Mycostati (06/15/19 13:00) Patient Visit (06/15/19 ) Speech Sound Lang Comp (06/15/19 ) Patient Visit (06/15/19 ) Functional Activities, Ea 15 (06/15/19 ) Ex Neuromuscular, Ea 15 Min (06/15/19 ) Cbc With Automated Diff (06/16/19 06:00) Comprehensive Metabolic Panel (06/16/19 06:00) Pt Eval High Complexity (06/15/19 ) Consult Oncology/Hematology (06/16/19 11:15) Patient Visit (06/16/19 ) Functional Activities, Ea 15 (06/16/19 ) Exercise Therap, Ea 15 Min (06/16/19 ) Patient Visit (06/16/19 ) Treat. Speech/Lang/Voice (06/16/19 ) Cbc And Manual Diff (06/17/19 05:00) Reticulocyte Count (06/17/19 05:00) Comprehensive Metabolic Panel (06/17/19 05:00) Iron Tibc %Sat & Ferritin (06/17/19 05:00) Occult Blood Stool (06/16/19 16:52) Rehab Nursing Orders: Ongoing Assess. of Cognitive Status, Ongoing Assess. of Function Status, Bladder Management, Bowel Management, Disease Management & Educaiton, DVT Prophylaxis, Fall Prevention, Fluid/Electrolyte/Nutrition Mgmt, Infection Prevention, Medication Management & Education, Management of Risks & Complications, Management of Skin Intergrity, Nutrition Management, Pain Management, Patient/Family Support, Safety Management Intensity of Therapy to be met Patient to be seen: Min.3h per day/5 of 7d PT IPOC Problem List: Activity Tolerance, Functional Strength, Safety, Balance, Gait, Transfer, Bed Mobility, ROM Treatment Plan: Continue Plan of Care Bed Mobility, Education, Functional Activity Tay, Functional Strength, Group Therapy, Gait, Safety, Therapeutic Exercise, Transfers Treatment Duration: Jul 10, 2019 Frequency: At least 5 of 7 days/Wk (IRF) Estimated Hrs Per Day: 1.5 hours per day OT IPOC Problems: Decreased Activ Tolerance, Decreased UE Strength, Dependent Transfers, Impaired Bed Mobility, Impaired Cognition, Impaired I ADL's, Impaired Self-Care Skills, Restricted Funct UE ROM OT Treatment, Training and Edu: Yes OT Problems Pt s/p right TKA with decreased mobility, strength, activity tolerance, and ADL functioning. Pt to benefit from skilled OT intervention for ADL training, transfers, strengthening, and home safety education to increase independence and allow safe discharge plan. Plan of Care: ADL Retraining, Functional Mobility, Group Exercise/Act as Ind, UE Funct Exercise/Act Treatment Duration: Jul 04, 2019 Frequency: At least 5 of 7 days/Wk (IRF) Estimated Hrs Per Day: 1.[address] IPOC Speech Therapy Treatment Plan: Concurrent Therapy Treatment Duration: Jun 26, 2019 Frequency: 5 times per week Estimated Hrs Per Day: .5 hour per day Licensed Occupational Therapist/Case Mgmt Licensed Occupational Therapist/Case Managemen: Discharge Planning Dietitian/Assistance Coordinator Dietitian/Assistance Coordinator to monitor nutritional status and make changes and/or recommendations as needed and work with speech pathology on dietary upgrades as the occur. Physician IPOC Medical Issues being managed closely and that require the 24 hour availability of a physician: Severe anemia with chronic renal failure and acute LLL Pneumonia post op will require multiple consultations and transfusions and close monitoring to prevent decompensation Brief Synthesis of Preadmission Screen, Post-Admission Evaluation, and Therapy Evaluations: PT will improve strength and ROM of knee replacement extremity and gain confidence with fall prevention OT will focus on regaining ADL independence Medical Prognosis: Good Anticipated Length of Stay: 10 days OLIVE ISAAC DO Jun 15, 2019 20:46
[2019-06-15 21:15] VITALS: BP 114/72
--- NOTE | 2019-06-15 21:18 | NUR ---
assessments & interventions completed, see assessments & interventions, refused demarco Wilson & Gabriel, fsbs 133 no ss insulin req
--- NOTE | 2019-06-15 21:54 | NUR ---
c/o pain level 7/10 on numeric scale, Percocet 1 tab po given
--- NOTE | 2019-06-15 22:40 | NUR ---
resting quietly in bed, pain level 0/10 on flacc scale
[2019-06-16] MEDS: RT-ALBUTEROL/IPRATROPIUM 3 ML (DUONEB) VIAL INH SCH ×6 (01:02→23:36)
--- NOTE | 2019-06-16 01:32 | NUR ---
pt c/o shortness of breath but found pt with 02 off, 02 back on at 2l/m per nc, instructed to breathe slowly through nose & out mouth, 02 sat 93% RT called for breathing treatment
[2019-06-16] MEDS: oxyCODONE/APAP 10/325MG (PERCOCET 10) TABLET PO PRN ×4 (02:13→21:21)
--- NOTE | 2019-06-16 02:13 | NUR ---
c/o pain level 7/10 on numeric scale, Percocet 1 tab po given
--- NOTE | 2019-06-16 02:51 | NUR ---
resting quietly in bed, pain level0/10 on flacc scale
[2019-06-16 05:42] LABS: BASOPHILS % (AUTO) 0 % (0-10); EOSINOPHILS # (AUTO) 0.3 10^3/uL (0.0-0.3); EOSINOPHILS % (AUTO) 3 % (0-10); HEMATOCRIT 24 % (35-52); HEMOGLOBIN 7.5 G/DL (11.5-16.0); LYMPHOCYTES # (AUTO) 1.4 X 10^3 (1.0-4.0); LYMPHOCYTES % (AUTO) 18 % (12-44); MEAN CORPUSCULAR HEMOGLOBIN 30 PG (25-34); MEAN CORPUSCULAR HGB CONC 31 G/DL (32-36); MEAN CORPUSCULAR VOLUME 98 FL (80-99); MEAN PLATELET VOLUME 9.3 FL (7.4-10.4); MONOCYTES # (AUTO) 0.9 X 10^3 (0.0-1.0); MONOCYTES % (AUTO) 12 % (0-12); NEUTROPHILS # (AUTO) 5.1 X 10^3 (1.8-7.8); NEUTROPHILS % (AUTO) 66 % (42-75); PLATELET COUNT 326 10^3/uL (130-400); RED CELL DISTRIBUTION WIDTH 13.3 % (10.0-14.5); WHITE BLOOD COUNT 7.6 10^3/uL (4.3-11.0)
--- NOTE | 2019-06-16 05:42 | NUR ---
c/o pain level 7/10 on numeric scale, Percocet 1 tab po given
[2019-06-16 05:56] VITALS: BP 112/64
[2019-06-16] MEDS: inSUlin ASPART (NovoLOG) 1 UNIT/0.01 ML (CHARGE PER UNIT) SC SCH ×4 (06:00→21:08)
[2019-06-16 06:03] LABS: ALBUMIN 2.9 GM/DL (3.2-4.5); BILIRUBIN,TOTAL 0.3 MG/DL (0.1-1.0); CALCIUM 7.9 MG/DL (8.5-10.1); CREATININE SERUM 1.5 MG/DL (0.60-1.30); POTASSIUM 3.9 MMOL/L (3.6-5.0); TOTAL PROTEIN 5.6 GM/DL (6.4-8.2)
--- NOTE | 2019-06-16 06:15 | NUR ---
resting quietly in bed, pain level 0/10 on flacc scale
[2019-06-16] MEDS: HYDROXYCHLOROQUINE 200 MG (PLAQUENIL) TAB PO SCH ×2 (06:48→18:13)
[2019-06-16] MEDS: PANTOPRAZOLE 40 MG (PROTONIX) TAB PO SCH (06:48)
--- NOTE | 2019-06-16 07:13 | NUR ---
bedside report given to DARRYL NEAL
--- NOTE | 2019-06-16 08:17 | Cardiology Progress Note ---
Subjective Date Seen by Provider: Jun 16, 2019 Time Seen by Provider: 08:16 Subjective/Events-last exam Patient is sitting up in bed, complaining of nonproductive cough and right leg swelling. Denies any further episode of chest pain. Review of Systems General: No Chills, No Night Sweats, No Fatigue, No Malaise, No Appetite, No Other HEENT: No Head Aches, No Visual Changes, No Eye Pain, No Ear Pain, No Dysphasia, No Sinus Congestion, No Post Nasal Drip, No Sore Throat, No Other Pulmonary: No Dyspnea, No Cough, No Pleuritic Chest Pain, No Other Cardiovascular: Edema; No: Chest Pain, Palpitations, Orthopnea, Paroxysmal Noc. Dyspnea, Lt Headedness, Other Objective-Cardiology Exam Last Set of Vital Signs Vital Signs 06/16/19 06/16/19 06/16/19 05:56 09:30 14:56 Temp 98.7 Pulse 88 Resp 20 B/P (MAP) 117/67 (84) Pulse Ox 96 O2 Delivery Nasal Cannula O2 Flow Rate 2.00 Capillary Refill : I&O Intake and Output 06/16/19 00:00 Intake Total 850 ml Balance 850 ml Intake Oral 850 ml # Voids 4 # Bowel Movements 1 General: Alert, Oriented X3, Cooperative HEENT: Atraumatic, PERRLA Neck: Supple, No JVD, No Thyromegaly Lungs: Clear to Auscultation, Normal Air Movement Heart: Regular Rate, Normal S1, Normal S2, No Murmurs Abdomen: Normal Bowel Sounds, Soft, No Tenderness, No Hepatosplenomegaly, No Masses Extremities: No Clubbing, No Cyanosis, Normal Pulses, No Tenderness/Swelling, Other (right leg 2+ edema) Skin: No Rashes, No Breakdown, No Significant Lesion Neuro: Normal Gait, Normal Speech, Strength at 5/5 X4 Ext, Normal Tone, Sensation Intact Psych/Mental Status: Mental Status NL, Mood NL Results Lab Laboratory Tests 06/16/19 05:30 A/P-Cardiology Admission Diagnosis chest pain CAD dyspnea HTN Assessment/Plan Chest pain, nonspecific etiology. No evidence of acute coronary syndrome. Low probability VQ scan for PE on 06/13/19. Denies any further episode or chest pain, continue to monitor Coronary artery disease, history of stent to the right coronary artery using 3.5 time 12 mm Ion stent done in 2009, reporting history of intervention done in CDU falls, last stress test was done in November 2018 showing no significant ischemia or infarction. Pleuritic chest pain, CT scan of the chest suggestive of left mass versus pneumonia, receiving antibiotics. Managed by Dr. Garcia. Shortness of breath, acute respiratory insufficiency, improved at this time. 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 Continue to monitor Status post right total knee arthroplasty done on June 09, 2019, recovering slowly, receiving physical therapy Hypertension, blood pressure is better controlled. Monitor blood pressure Hyperlipidemia, continue to monitor lipids Diabetes mellitus, followed and managed by primary care physician History of restless leg syndrome Clinical Quality Measures DVT/VTE Risk/Contraindication: Risk Factor Score Per Nursin RFS Level Per Nursing on Admit: 4+=Very High Supervisory-Addendum Brief Supervisory Addendum Participated in pt care: history, MDM, physical Personally performed: exam, history, MDM Care discussed with: TAYLOR Notes: Patient was seen and evaluated with Yrn, reporting improvement in her chest pain, no further episodes were reported. Still having mild pedal edema. Continue with physical therapy and continue to monitor Monitor blood pressure, monitor H&H YRN ORTIZ Jun 16, 2019 08:17 ABBI GUTIERREZ MD Jun 16, 2019 15:10
--- NOTE | 2019-06-16 08:40 | PM&R Progress Note ---
Subjective HPI/CC On Admission Date Seen by Provider: Jun 16, 2019 Time Seen by Provider: 08:30 Chief complaint: Debility following right total knee replacement complicated with pneumonia and elevated creatinine History of present illness: This is a 68-year-old white female clinic patient of [facility] who is admitted to inpatient rehab following a right total knee arthroplasty by Dr. Meneses there was originally uncomplicated but then became complicated with a postop pneumonia. I am unable to get any reli able details from the patient since they are very vague complaints and she reports that she still feels loopy from the pain medication given today. I do reviewed the prior records from Dr. Crum and it appears that she was a poor historian to begin with and having difficulty motivating to participating therapy. At this current time patient is reporting a sore throat of which the nurse was given no reported that that she complained of it upstairs on fourth floor. Her Levaquin will be maintained every other day renal dosed due to her multiple antibiotic allergies. Her baseline creatinine is 1.7. She does see nephrology on a regular basis but unable to tell me the name of that doctor. Mann samuel is really unable to tell me any of her doctors names except for Lola Benson who she sees a [facility]. She remained on DVT prophylaxis of heparin since postoperative but venous Doppler ultrasound was ordered for thorough medical care evaluation but the lower extremities do not appear to be edematous or have any type of pain on the calf muscle. We will try to be judicious regarding pain medication administration in order to prevent oversedation. We will inquire further when she is less drowsy regarding her prior level of functioning. Subjective/Events-last exam Will consult Dr. Chacko for anemia, she appears to be pale, Hgb of 7.5 and she may need a unit of blood, along with iron infusions in which she has had iron infusions before. Creatinine 1.5 much improved. Swollen legs noted, but that is expected. IS use. Does not wear oxygen at home. Left lower lobe pneumonia, maintained on Levaquin. Zenker's diverticulum managed in a conservative manner with the coating substance Dr. Whalen ordered. Overall feels much better. Checked meds and labs Pt having more clarity with her thought process than when I last saw her on Saturday Checked meds and labs Reviewed therapy notes and all imaging scans and labs Conferred with banquet pilot of Systems General: Fatigue Musculoskeletal: leg pain Objective Exam Vital Signs Vital Signs Date Time Temp Pulse Resp B/P (MAP) Pulse Ox O2 Delivery O2 Flow Rate FiO2 06/16/19 19:39 95 Nasal Cannula 2.00 06/16/19 17:47 98.5 87 20 144/76 (98) Capillary Refill : General Appearance: No Apparent Distress, WD/WN, Chronically ill, Other (much improved) HEENT: PERRL/EOMI, Normal ENT Inspection, Pharynx Normal, Moist Mucous Membranes Neck: Full Range of Motion, Normal Inspection, Non Tender, Supple Respiratory: Chest Non Tender, No Accessory Muscle Use, No Respiratory Distress, Crackles (LLL), Decreased Breath Sounds Cardiovascular: Regular Rate, Rhythm, No Edema, No Gallop, No JVD, No Murmur Gastrointestinal: Normal Bowel Sounds, No Organomegaly, No Pulsatile Mass, Non Tender, Soft Back: Normal Inspection, No CVA Tenderness, No Vertebral Tenderness Extremity: Normal Capillary Refill, Normal Inspection, Normal Range of Motion (except right leg), Non Tender, No Calf Tenderness, No Pedal Edema Neurologic/Psychiatric: Alert, Oriented x3, No Motor/Sensory Deficits, loom fixer II- XII Norm as Tested, Abnormal Gait, Depressed Affect, Disoriented (subtle) Skin: Normal Color, Warm/Dry Lymphatic: No Adenopathy Results/Procedures Lab Laboratory Tests 06/16/19 05:30 Patient resulted labs reviewed. FIM Transfers Therapy Code Descriptions/Definitions Functional [place] Measure: 0=Not Assessed/NA 4=Minimal Assistance 1=Total Assistance 5=Supervision or Setup 2=Maximal Assistance 6=Modified [place] 3=Moderate Assistance 7=Complete [place] Therapy Quality Codes: 6 Independent with activity with or without an assistive device 5 Patient requires set up or clean up by helper. Patient completes activity by themselves 4 Supervision or touching assist (CGA). [place] provide cues , steadying assist 3 The helper provides less than half the effort to complete the activity 2 The helper provides more than half the effort to complete the activity 1 Dependent. The helper does all the effort to complete an activity 7 Patient refused to complete or attempt activity 9 The patient did not perform the activity before the current illness or injury 88 Not attempted due to Medical conditions or safety concerns Transfers (B, C, W/C) (FIM): 4 Scootin Rollin Roll Left to Right (QC): 4 Supine to/from Sit: 4 Sit to/from Stand: 4 Sit to Lying (QC): 3 Sit to Stand (QC): 3 Chair/Kpx-zr-Iiqvu Xfer(QC): 3 Car Transfer (QC): 3 Gait Training Does the Patient Walk?: Yes Gait (FIM): 2 Distance (FIM): 4=954-01 ft Distance: 50 ft x 3 Walk 10 feet (QC): 4 Walk 50 ft with 2 Turns(QC): 4 Walk 150 ft (QC): 88 (unable to walk this distanc.e ) Walking 10ft/uneven surface-QC: 88 (unsafe to attempt at this time due to fall risk) Gait Assistive Device: FWW Wheelchair Training Does the Pt Use a Wheelchair?: No Stair Training Stairs (FIM): 0 1 Step (curb) (QC): 1 4 Steps (QC): 88 12 Steps (QC): 88 Balance Picking up an Object (QC): 88 Mental Status/Objective Comprehension: 5 Expression: 5 Social Interaction: 4 Problem Solvin Memory: 4 ADL-Treatment Feedin (Set up) Eating (QC): 5 Lower Extremity Dressin (Unable to doff slipper socks without equipment. SBA to doff socks with AE, but mod assist to don sandals and adjust them for swelling. Pt. reports that she does not wear socks at home, and only wears sandals.) Lower Body Dressing (QC): 2 On/Off Footwear (QC): 2 Toiletin Toileting Hygiene (QC): 1 Toilet/Commode Transfer: 3 Toilet Transfer (QC): 3 Assessment/Plan Assessment and Plan Assess & Plan/Chief Complaint Plan: IRF protocol Zenker's diverticulum consultation with Dr Whalen and his management is appreciated Pain control but limit due to oversedation propensity Fall risk when drowsy Home meds Reviewed notes Consult Dr Joaquin for iron def anemia (1) S/P total knee arthroplasty Status: Chronic (2) Acute kidney injury superimposed on chronic kidney disease Status: Acute (3) Type 2 diabetes mellitus Status: Chronic (4) Restless leg syndrome Status: Chronic (5) Essential hypertension Status: Chronic (6) Pleuritic chest pain Status: Acute (7) Coronary artery disease Status: Chronic (8) Left lower lobe pneumonia Status: Acute Qualifiers: Pneumonia type: due to unspecified organism Qualified Codes: J18.1 - Lobar pneumonia, unspecified organism (9) Drowsiness Status: Acute (10) Constipation Status: Acute Qualifiers: Constipation type: slow transit constipation Qualified Codes: K59.01 - Slo w transit constipation (11) Sepsis due to pneumonia Status: Acute (12) Normocytic anemia Status: Acute (13) Hyperlipidemia Status: Chronic Qualifiers: Hyperlipidemia type: unspecified Qualified Codes: E78.5 - Hyperlipidemia, unspecified OLIVE ISAAC DO Jun 16, 2019 08:40
[2019-06-16] MEDS: SENNA W/DOCUSATE (SENOKOT S) TABLET PO SCH ×2 (09:00→21:25)
[2019-06-16] MEDS: POLYETHYLENE GLYCOL 17 GM (MIRALAX) PACK PO SCH ×2 (09:00→21:25)
[2019-06-16] MEDS: DOCUSATE SODIUM 100 MG (COLACE) CAP PO SCH ×2 (09:00→21:24)
[2019-06-16 09:30] VITALS: BP 117/67
[2019-06-16] MEDS: MAGIC MOUTHWASH (ADULT) PO SCH ×16 (09:33→21:27)
[2019-06-16] MEDS: DULoxetine 30 MG (CYMBALTA) CAP PO SCH (09:34)
[2019-06-16] MEDS: FUROSEMIDE 40 MG (LASIX) TAB PO SCH (09:34)
[2019-06-16] MEDS: LABETALOL 200 MG (NORMODYNE) TAB PO SCH ×2 (09:34→21:21)
[2019-06-16] MEDS: ASPIRIN E.C. 325 MG (ECOTRIN) TABLET PO SCH (09:34)
[2019-06-16] MEDS: amLODIPine 10 MG (NORVASC) TAB PO SCH (09:34)
[2019-06-16] MEDS: rOPINIRole 0.25 MG (REQUIP) TAB PO SCH (09:34)
[2019-06-16] MEDS: GABAPENTIN 300 MG (NEURONTIN) CAP PO SCH ×3 (09:35→21:20)
[2019-06-16] MEDS: toPIRamate 25 MG (TOPAMAX) TAB PO SCH (09:35)
[2019-06-16] MEDS: BRIMONIDINE 0.2% (ALPHAGAN) OPHTH SOLN 5 ML BTL OU SCH ×3 (09:37→21:24)
--- NOTE | 2019-06-16 09:44 | Occupational Ther Daily Note ---
OT Current Status-Daily Note Subjective Pt in bed, agrees to therapy. Reports 6/10 right knee pain and 5/10 "sore throat" Mental Status/Objective Therapy Code Descriptions/Definitions Functional [place] Measure: 0=Not Assessed/NA 4=Minimal Assistance 1=Total Assistance 5=Supervision or Setup 2=Maximal Assistance 6=Modified [place] 3=Moderate Assistance 7=Complete [place] Attachments: Oxygen ADL-Treatment Supine to sit with min assist. Min assist to don sandals. Sit to stand with min assist. Gait to restroom with FWW, cues for safety. Pt stood at sink to brush hair and clean glasses with SBA. Transfer to chair with min assist for safety. Reviewed use of adaptive equipment for LE ADLs. Pt declined to practice using equipment, states she already bathed and dressed with assist from nursing this morning. Pt requests to use restroom. Sit to stand with min assist. Gait to restroom with FWW. Transfer to toilet with min assist. Pt able to pull pants down, but requires assist for toileting hygiene and to pull pants up. Pt requires increased time for toileting tasks. Pt stood at sink to wash hands with SBA. Pt fatigues with activity and requires seated rest break once back in chair. Therapy Code Descriptions/Definitions Functional [place] Measure: 0=Not Assessed/NA 4=Minimal Assistance 1=Total Assistance 5=Supervision or Setup 2=Maximal Assistance 6=Modified [place] 3=Moderate Assistance 7=Complete [place] Therapy Quality Codes: 6 Independent with activity with or without an assistive device 5 Patient requires set up or clean up by helper. Patient completes activity by themselves 4 Supervision or touching assist (CGA). [place] provide cues , steadying assist 3 The helper provides less than half the effort to complete the activity 2 The helper provides more than half the effort to complete the activity 1 Dependent. The helper does all the effort to complete an activity 7 Patient refused to complete or attempt activity 9 The patient did not perform the activity before the current illness or injury 88 Not attempted due to Medical conditions or safety concerns Grooming (FIM): 5 Toileting (FIM): 2 Toileting Hygiene (QC): 2 Toilet/Commode Transfer (FIM): 4 Toilet Transfer (QC): 3 Other Treatment Pt completed bilateral UE exercises to increase strength needed for ADLs and transfers. Pt performed four exercises x15 reps with moderate resistance (red) theraband. Rest breaks between exercises. Pt able to recall two exercises from previous session, but requires cues for proper technique. Bilateral hand fashion designer exercises x20 reps with moderate resistance therapy foam to increase fashion designer strength for ADLs. Pt completed resistance peg activity with bilateral UE with 1# weights in place to increase strength and activity tolerance for functional tasks. Pt in bed with needs met after session. Education OT Patient Education: Modified ADL techniques Teaching Recipient: Patient Teaching Methods: Discussion Response to Teaching: Verbalize Understanding, Reinforcement Needed OT Short Term Goals Short Term Goals Time Frame: Jun 20, 2019 Eating(FIM): 6 Grooming(FIM): 5 Bathing(FIM): 4 Upper Body Dressing(FIM): 4 Lower Body Dressing(FIM): 4 Toileting(FIM): 4 Transfers (B,C,W/C) (FIM): 5 Toilet/Commode Transfer(FIM): 5 Shower Transfer(FIM): 4 Additional Short Term Goals: 1-Demonstrate ADL Tasks, 2-Verbalize Understanding, 3-ImproveStrength/Tay 1=Demonstrate adherence to instructed precautions during ADL tasks. 2=Patient will verbalize/demonstrate understanding of assistive devices/m odifications for ADL. 3=Patient will improve strength/tolerance for activity to enable patient to perform ADL's. OT Penitentiary Goals Penitentiary Goals Time Frame: Jul 04, 2019 Eating (FIM): 6 Eating (QC): 6 Groomin Oral Hygiene (QC): 6 Bathing(FIM): 5 Shower/Bathe Self (QC): 5 Upper Body Dressing(FIM): 6 Upper Body Dressing (QC): 6 Lower Body Dressing(FIM): 5 Lower Body Dressing (QC): 5 On/Off Footwear (QC): 5 Toileting(FIM): 6 Toileting Hygiene (QC): 6 Toilet/Commode Transfer(FIM): 6 Toilet/Commode Transfer (QC): 6 Shower Transfer(FIM): 5 Additional Goals: 1-Demonstrate ADL Tasks, 2-Verbalize Understanding, 3- ImproveStrength/Tay 1=Demonstrate adherence to instructed precautions during ADL tasks. 2=Patient will verbalize/demonstrate understanding of assistive devices/modifications for ADL. 3=Patient will improve strength/tolerance for activity to enable patient to perform ADL's. OT Education/Plan Discharge Recommendations Plan/Recommendations: Continue POC Treatment Plan/Plan of Care Patient would benefit from OT for education, treatment and training to promote independence in ADL's, mobility, safety and/or upper extremity function for ADL's. Plan of Care: ADL Retraining, Functional Mobility, Group Exercise/Act as Ind, UE Funct Exercise/Act Treatment Duration: Jul 04, 2019 Frequency: At least 5 of 7 days/Wk (IRF) Estimated Hrs Per Day: 1.5 hours per day Agreement: Yes Rehab Potential: Fair Time/GCodes Start Time: 08:15 Stop Time: 09:30 Total Time Billed (hr/min): 75 Billed Treatment Time 1 visit, ADLx3(45minutes), EXx2(30minutes) VIOLA LONG OT Jun 16, 2019 09:44
--- NOTE | 2019-06-16 11:30 | Physical Therapy Daily Note ---
PT Daily Note-Current Subjective Pt laying Supine with HOB raised upon arrival. Pt agrees to PT but reports pain in R knee as well as nausea. Pain Numeric Pain Scale: 7 Location: Right, Incisional Location Body Site: Knee Pain Description: Ache, Tightness Mental Status Patient Orientation: Person, Place, Situation Attachments: Oxygen Transfers Therapy Code Descriptions/Definitions Functional [place] Measure: 0=Not Assessed/NA 4=Minimal Assistance 1=Total Assistance 5=Supervision or Setup 2=Maximal Assistance 6=Modified [place] 3=Moderate Assistance 7=Complete [place] Therapy Quality Codes: 6 Independent with activity with or without an assistive device 5 Patient requires set up or clean up by helper. Patient completes activity by themselves 4 Supervision or touching assist (CGA). [place] provide cues , steadying assist 3 The helper provides less than half the effort to complete the activity 2 The helper provides more than half the effort to complete the activity 1 Dependent. The helper does all the effort to complete an activity 7 Patient refused to complete or attempt activity 9 The patient did not perform the activity before the current illness or injury 88 Not attempted due to Medical conditions or safety concerns Weight Bearing Right Lower Extremity: Right Full Weight Bearing Left Lower Extremity: Left Full Weight Bearing Exercises Supine Ex: Ankle pumps, Quad Set, Glut sets, Heel Slides, Straight leg raise, Hip abd/add Supine Reps: 15 Treatments Pt completes Supine EX with several extended RBs for pain and nausea. PHYSICIAN OBSTETRICIAN & pt discuss pt ed items including benefits of therapy, how to help prevent or improve Pneumonia as well as need for extension & flexion of R knee to prevent contractures. Pt resting at end of tx with all needs met, call light next to pt. ST arrives at end of tx. Assessment Current Status: Fair Progress Pain and nausea limit tx. PT Short Term Goals Short Term Goals Time Frame: Jun 26, 2019 Transfers (B,C,W/C) (FIM): 5 Gait (FIM): 4 PT Residential Goals Booth Supervisor Goals PT Booth Supervisor Goals Time Frame: Jul 10, 2019 Transfers (B,C,W/C) (FIM): 7 Sit to Lying (QC): 6 Lying-Sitting on Side/Bed(QC): 6 Sit to Stand (QC): 6 Rollin Roll Left to Right (QC): 6 Chair/Ajv-vo-Jeytm Xfer(QC): 6 Car Transfer (QC): 6 Does the Patient Walk: Yes Gait (FIM): 6 Gait distance (FIM): 3=150 ft Walk 10 feet (QC): 6 Walk 10ft-Uneven Surface(QC): 6 Walk 50ft with 2 Turns (QC): 6 Walk 150 ft (QC): 6 Gait Assistive Device: FWW Does the Pt use WC or Scooter?: No Stairs (FIM): 5 # of Steps: 4 1 Step (curb) (QC): 6 4 Steps (QC): 6 12 Steps (QC): 9 Picking up an Object (QC): 4 PT Plan Problem List Problem List: Activity Tolerance, Functional Strength, Safety, Balance, Gait, Transfer, Bed Mobility Treatment/Plan Treatment Plan: Continue Plan of Care Treatment Plan: Bed Mobility, Education, Functional Activity Tay, Functional Strength, Group Therapy, Gait, Safety, Therapeutic Exercise, Transfers Treatment Duration: Jul 10, 2019 Frequency: At least 5 of 7 days/Wk (IRF) Estimated Hrs Per Day: 1.5 hours per day Patient and/or Family Agrees t: Yes Safety Risks/Education Patient Education: Gait Training, Transfer Techniques, Correct Positioning, Safety Issues Teaching Recipient: Patient Teaching Methods: Discussion Response to Teaching: Verbalize Understanding Time/GCodes Time In: 945 Time Out: 1030 Total Billed Treatment Time: 45 Total Billed Treatment 1, FA (15m) & EX x2 (30m) KEELEY MONTEMAYOR PTA Jun 16, 2019 11:29
--- NOTE | 2019-06-16 13:28 | Physical Therapy Daily Note ---
PT Daily Note-Current Subjective Pt sitting up in bed upon arrival. Pt still reports nausea accompanying pain. Pt also reports Hemoglobin is low (7.5) and will be getting Blood later. Pain Numeric Pain Scale: 7 Location: Right, Incisional Location Body Site: Knee Pain Description: Ache, Tightness Mental Status Patient Orientation: Person, Place, Situation Transfers Therapy Code Descriptions/Definitions Functional [place] Measure: 0=Not Assessed/NA 4=Minimal Assistance 1=Total Assistance 5=Supervision or Setup 2=Maximal Assistance 6=Modified [place] 3=Moderate Assistance 7=Complete [place] Therapy Quality Codes: 6 Independent with activity with or without an assistive device 5 Patient requires set up or clean up by helper. Patient completes activity by themselves 4 Supervision or touching assist (CGA). [place] provide cues , steadying assist 3 The helper provides less than half the effort to complete the activity 2 The helper provides more than half the effort to complete the activity 1 Dependent. The helper does all the effort to complete an activity 7 Patient refused to complete or attempt activity 9 The patient did not perform the activity before the current illness or injury 88 Not attempted due to Medical conditions or safety concerns Weight Bearing Right Lower Extremity: Right Full Weight Bearing Left Lower Extremity: Left Full Weight Bearing Exercises Supine Ex: Ankle pumps, Quad Set, Glut sets, Heel Slides, Straight leg raise, Hip abd/add Supine Reps: 15 Treatments Pt demonstrates Supine Ex in bed that WORLD LANGUAGE TEACHER gave instruction on this morning. WORLD LANGUAGE TEACHER gave VC to correct if necessary. WORLD LANGUAGE TEACHER again gives instruction on need for sitting upright and using Spirometer to work on lung inflation for improved breathing. Pt resting at end of tx with all needs met, call light in hand. Assessment Current Status: Fair Progress Pain and nausea still limiting tx. PT Short Term Goals Short Term Goals Time Frame: Jun 26, 2019 Transfers (B,C,W/C) (FIM): 5 Gait (FIM): 4 PT Chcf Goals Chcf Goals PT Powerhouse Engineer Goals Time Frame: Jul 10, 2019 Transfers (B,C,W/C) (FIM): 7 Sit to Lying (QC): 6 Lying-Sitting on Side/Bed(QC): 6 Sit to Stand (QC): 6 Rollin Roll Left to Right (QC): 6 Chair/Ulq-nw-Byzzv Xfer(QC): 6 Car Transfer (QC): 6 Does the Patient Walk: Yes Gait (FIM): 6 Gait distance (FIM): 3=150 ft Walk 10 feet (QC): 6 Walk 10ft-Uneven Surface(QC): 6 Walk 50ft with 2 Turns (QC): 6 Walk 150 ft (QC): 6 Gait Assistive Device: FWW Does the Pt use WC or Scooter?: No Stairs (FIM): 5 # of Steps: 4 1 Step (curb) (QC): 6 4 Steps (QC): 6 12 Steps (QC): 9 Picking up an Object (QC): 4 PT Plan Problem List Problem List: Activity Tolerance, Functional Strength, Safety, Balance, Gait, Transfer, Bed Mobility Treatment/Plan Treatment Plan: Continue Plan of Care Treatment Plan: Bed Mobility, Education, Functional Activity Tay, Functional Strength, Group Therapy, Gait, Safety, Therapeutic Exercise, Transfers Treatment Duration: Jul 10, 2019 Frequency: At least 5 of 7 days/Wk (IRF) Estimated Hrs Per Day: 1.5 hours per day Patient and/or Family Agrees t: Yes Safety Risks/Education Patient Education: Transfer Techniques, Correct Positioning, Disease Process, Safety Issues Teaching Recipient: Patient Teaching Methods: Discussion Response to Teaching: Verbalize Understanding Time/GCodes Time In: 1300 Time Out: 1330 Total Billed Treatment Time: 30 Total Billed Treatment 1, FA (10m) & EX (20m) KEELEY MONTEMAYOR PTA Jun 16, 2019 13:28
--- NOTE | 2019-06-16 15:53 | Speech Therapy Daily Note ---
Speech Daily Progress Note Subjective Date Seen by Provider: Jun 16, 2019 Time Seen by Provider: 00:30 The patient was resting in bed after her PT session. She stated she was nauseated and was waiting on her nurse to bring medication. Objective The patient completed problem solving tasks with sequencing cards at 80% with minimal verbal and/or verbal cues. Assessment Assessment Current Status: Fair Progress Treatment Plan Continue Plan of Care Communication Comprehension: 5 Expression: 5 Social Cognition Social Interaction: 4 Problem Solvin Memory: 4 Speech Short Term Goals Short Term Goals Short Term Goals 1) The patient will complete memory tasks related to her daily needs at 90% or greater with minimal cues. 2) The patient will complete problem solving tasks related to her daily needs at 90% or greater with minimal cues. 3) The patient will complete safety awareness tasks related to her daily needs at 90% or greater with minimal cues. Speech Gravure Press Operator Goals Group Home Goals The patient will improve safety awareness and independence in order to safely return home. Speech-Plan Patient/Family Goals Patient/Family Goals: The patient plans on returning home post rehab. Treatment Plan Speech Therapy Treatment Plan: Continue Plan of Care The patient completed tasks for problem solving with minimal difficulty. Treatment Duration: Jun 26, 2019 Frequency: 5 times per week Estimated Hrs Per Day: .5 hour per day Rehab Potential: Fair Barriers to Learning: Patient has a moderate level of cognitive deficits. Pt/Family Agrees to Plan: Yes Safety Risks/Education Teaching Recipient: Patient Teaching Methods: Demonstration, Discussion Response to Teaching: Verbalize Understanding, Return Demonstration Education Topics Provided: Safety within her room. Time Speech Therapy Time In: 10:30 Speech Therapy Time Out: 11:00 Total Billed Time: 30 Billed Treatment Time 1SHERRI [address] Jun 16, 2019 15:53
[2019-06-16 17:47] VITALS: BP 144/76
--- NOTE | 2019-06-16 21:20 | Oncology Progress Note ---
Subjective Date Seen by a Provider: Jun 16, 2019 Time Seen by a Provider: 13:45 Subjective/Events-last exam Oncology Consultation BRIEF HISTORY 68 year old female was seen in the inpatient rehab facility after a right knee replacement. Patient was alert and oriented, appeared pale and said she felt "weak just to walk". There was bilateral bruising on her legs from knee to ank le. Patient's hemoglobin was 10.5 g/dL on 06/10/2019 and has been gradually declining and as of latest CBC on 06/16/2019 hemoglobin was 7.5g/dL. Patient had pneumonia after her right knee replacement and was having difficulty breathing, but reports that she breathing better now but is experiencing pleuritic pain. Patient denies black stools and any bleeding complication that occurred during any prior surgery. PAST MEDICAL HISTORY In November 2015, patient experienced fall where she stated she lacerated her liver, had undetected internal bleeding for two weeks, "coded twice" and was placed on dialysis. Patient denies that she was on anti-coagulants at the time and the bleeding was stopped with abdominal surgery after receiving several blood transfusions. Patient reports a history of another unrelated bleeding episode, but has no recollection of it. Patient has received 10 iron infusions and states she gets them 1-2 times per year. Additionally, patient reported a history of hepatitis A which she received treatment for. Patient had a stent placed in 2009 and was told she suffered a "silent heart attack". Patient denies any other cardiac complication or congestive heart failure. Patient was diagnosed with cancer on the left breast and underwent lumpectomy in 2007 and was treated with radiation and hormone therapy for 5 years. Patient denied receiving chemotherapy for the breast cancer. Patient reports that she has "mild diabetes" for the last three years and also reports history of hypertension. Patient regularly sees her shroudman for stage II kidney disease. Patient also had left knee surgery which had no complications. PRIOR SURGERIES Patient had a hysterectomy in 1974 and was placed on hormone therapy for a few years, Left breast lumpectomy in 2007, left knee surgery, and surgery for internal bleeding from the liver in 2015. PHYSICAL EXAM Skin: Pale skin with bilateral bruising from knee to ankle. Heart: Regular rate and rhythm with no murmurs. Lungs: Right side was clear to auscultation and rhonchi was heard over the left lower lobe, has left pleuritic pain. SOCIAL HISTORY Patient is a life long non-smoker, however has been exposed to second hand smoke from her of 25 years which is now . 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 Patient denies any occupational chemical exposure. She stopped working and moved to [place] to care for her that had become disabled at the time. Patient has three sons, all living in [place] and 1 daughter living in [place]. FAMILY HISTORY No medical history is known for mother or father. Patient denies any family history of bleeding disorders. Review of Systems General: Fatigue, Malaise Gastrointestinal: No: Abdominal Pain, Melena, Hematochezia Data Review Labs Laboratory Tests 06/16/19 05:30 Laboratory Tests 06/15/19 16:48: Glucometer 113H 06/15/19 20:03: Glucometer 133H 06/16/19 05:30: Red Blood Count 2.50L, Hemoglobin 7.5L, Hematocrit 24L, Mean Corpuscular Hemoglobin Concent 31L, Blood Urea Nitrogen 25H, Creatinine 1.50H, Glucose Level 127H, Calcium Level 7.9L, Alkaline Phosphatase 168H, Total Protein 5.6L, Albumin 2.9L 06/16/19 05:39: Glucometer 134H 06/16/19 10:59: Glucometer 163H 06/16/19 15:24: Glucometer 143H 06/16/19 20:43: Glucometer 154H Impression & Plan Impression & Plan IMPRESSIONS 1. Anemia of unknown etiology 2. History of iron deficiency with history of iron therapy (10 infusions of iron, receiving 1-2 infusions per year). 3. Increased bruising 4. Intolerance to Aspirin 5. Chronic kidney disease - Stage III. PLAN 1. Order CBC with retic count and iron studies. 2. Discontinue Aspirin Clinical Quality Measures DVT/VTE Risk/Contraindication: Risk Factor Score Per Nursin RFS Level Per Nursing on Admit: 4+=Very High Supervisory-Addendum Brief Verification & Attestation Participated in pt care: history Personally performed: other Care discussed with: Medical Student Procedures: n/a Rick Levin S III Oncology Service RICK LEVIN Jun 16, 2019 21:20
[2019-06-16] MEDS: rOPINIRole 1 MG (REQUIP) TABLET PO SCH (21:24)
[2019-06-17] MEDS: RT-ALBUTEROL/IPRATROPIUM 3 ML (DUONEB) VIAL INH SCH ×6 (02:24→22:30)
[2019-06-17 05:23] LABS: ABSOLUTE RETIC # 56 10e9/L (24-90); BASOPHILS # (AUTO) 0.1 10^3/uL (0.0-0.1); BASOPHILS % (AUTO) 1 % (0-10); EOSINOPHILS # (AUTO) 0.2 10^3/uL (0.0-0.3); EOSINOPHILS % (AUTO) 3 % (0-10); HEMATOCRIT 26 % (35-52); HEMOGLOBIN 7.8 G/DL (11.5-16.0); LYMPHOCYTES # (AUTO) 1.6 X 10^3 (1.0-4.0); LYMPHOCYTES % (AUTO) 24 % (12-44); MEAN CORPUSCULAR HEMOGLOBIN 30 PG (25-34); MEAN CORPUSCULAR HGB CONC 31 G/DL (32-36); MEAN CORPUSCULAR VOLUME 98 FL (80-99); MEAN PLATELET VOLUME 9.4 FL (7.4-10.4); MONOCYTES # (AUTO) 0.8 X 10^3 (0.0-1.0); MONOCYTES % (AUTO) 12 % (0-12); NEUTROPHILS # (AUTO) 3.9 X 10^3 (1.8-7.8); NEUTROPHILS % (AUTO) 60 % (42-75); PLATELET COUNT 366 10^3/uL (130-400); RED CELL DISTRIBUTION WIDTH 13.1 % (10.0-14.5); RETICULOCYTE % 2.17 % (0.50-2.40); WHITE BLOOD COUNT 6.5 10^3/uL (4.3-11.0)
[2019-06-17] MEDS: oxyCODONE/APAP 10/325MG (PERCOCET 10) TABLET PO PRN ×5 (05:27→21:57)
[2019-06-17 05:38] LABS: ANISOCYTOSIS MODERATE; BAND NEUTROPHILS 2 %; EOSINOPHILS % (MANUAL) 5 %; LYMPHOCYTES % (MANUAL) 20 %; MICROCYTOSIS SLIGHT; MONOCYTES % (MANUAL) 17 %; NEUTROPHILS % (MANUAL) 56 %
[2019-06-17 05:40] LABS: ALBUMIN 2.9 GM/DL (3.2-4.5); BILIRUBIN,TOTAL 0.4 MG/DL (0.1-1.0); CALCIUM 8.1 MG/DL (8.5-10.1); CREATININE SERUM 1.37 MG/DL (0.60-1.30); POTASSIUM 3.7 MMOL/L (3.6-5.0); TOTAL PROTEIN 5.6 GM/DL (6.4-8.2)
[2019-06-17] MEDS: inSUlin ASPART (NovoLOG) 1 UNIT/0.01 ML (CHARGE PER UNIT) SC SCH ×4 (05:59→21:26)
[2019-06-17 06:00] VITALS: BP 121/68
[2019-06-17] MEDS: HYDROXYCHLOROQUINE 200 MG (PLAQUENIL) TAB PO SCH ×2 (06:46→17:52)
[2019-06-17] MEDS: PANTOPRAZOLE 40 MG (PROTONIX) TAB PO SCH (06:46)
--- NOTE | 2019-06-17 08:31 | Cardiology Progress Note ---
Subjective Date Seen by Provider: Jun 17, 2019 Time Seen by Provider: 08:30 Subjective/Events-last exam Patient is with PT. Denies any chest pain or dyspnea. Review of Systems General: No Chills, No Night Sweats; Fatigue; No Malaise, No Appetite, No Other HEENT: No Head Aches, No Visual Changes, No Eye Pain, No Ear Pain, No Dysphasia, No Sinus Congestion, No Post Nasal Drip, No Sore Throat, No Other Pulmonary: No Dyspnea, No Cough, No Pleuritic Chest Pain, No Other Cardiovascular: No: Chest Pain, Palpitations, Orthopnea, Paroxysmal Noc. Dyspnea, Edema, Lt Headedness, Other Objective-Cardiology Exam Last Set of Vital Signs Vital Signs 06/17/19 06/17/19 06/17/19 06:00 09:33 14:31 Temp 97.8 Pulse 86 Resp 18 B/P (MAP) 121/74 (90) Pulse Ox 91 O2 Delivery Nasal Cannula O2 Flow Rate 2.00 Capillary Refill : I&O Intake and Output 06/17/19 00:00 Intake Total 1650 ml Balance 1650 ml Intake Oral 1650 ml # Voids 7 # Bowel Movements 3 General: Alert, Oriented X3, Cooperative HEENT: Atraumatic, PERRLA Neck: Supple, No JVD, No Thyromegaly Lungs: Clear to Auscultation, Normal Air Movement Heart: Regular Rate, Normal S1, Normal S2, No Murmurs Abdomen: Normal Bowel Sounds, Soft, No Tenderness, No Hepatosplenomegaly, No Masses Extremities: No Cyanosis, Normal Pulses, Other (right leg 2+ edemaTenderness) Skin: No Rashes, No Breakdown, No Significant Lesion Neuro: Normal Gait, Normal Speech, Strength at 5/5 X4 Ext, Normal Tone, Sensation Intact Psych/Mental Status: Mental Status NL, Mood NL Results Lab Laboratory Tests 06/17/19 05:10 A/P-Cardiology Admission Diagnosis chest pain CAD dyspnea HTN Assessment/Plan Chest pain, nonspecific etiology. No evidence of acute coronary syndrome. Low probability VQ scan for PE on 06/13/19. Denies any further episode or chest pain, continue to monitor Coronary artery disease, history of stent to the right coronary artery using 3.5 time 12 mm Ion stent done in 2009, reporting history of intervention done in CDU falls, last stress test was done in November 2018 showing no significant is chemia or infarction. Pleuritic chest pain, CT scan of the chest suggestive of left mass versus pne umonia, receiving antibiotics. Managed by Dr. Garcia. Shortness of breath, acute respiratory insufficiency, improved at this time. Continue to monitor Anemia, monitor H&H, aspiring was discontinued. Acute on chronic kidney disease stage 3-4, diabetic nephropathy, slight improvement. Continue to monitor Status post right total knee arthroplasty done on June 09, 2019, recovering slowly, receiving physical therapy Hypertension, blood pressure is better controlled. Monitor blood pressure Hyperlipidemia, continue to monitor lipids Diabetes mellitus, followed and managed by primary care physician History of restless leg syndrome Clinical Quality Measures DVT/VTE Risk/Contraindication: Risk Factor Score Per Nursin RFS Level Per Nursing on Admit: 4+=Very High Supervisory-Addendum Brief Supervisory Addendum Participated in pt care: history, MDM, physical Personally performed: exam, history, MDM Care discussed with: TAYLOR Notes: patient was seen and evaluated, having tenderness in her right leg, increasing swelling. Denied any chest pain. On examination lungs were clear to auscultation bilateral, heart is regular. Still having pedal edema. Managed by orthopedic surgeon YRN ORTIZ Jun 17, 2019 08:31 ABBI GUTIERREZ MD Jun 17, 2019 16:38
[2019-06-17] MEDS: SENNA W/DOCUSATE (SENOKOT S) TABLET PO SCH ×2 (09:00→21:02)
[2019-06-17] MEDS: POLYETHYLENE GLYCOL 17 GM (MIRALAX) PACK PO SCH ×2 (09:00→21:03)
[2019-06-17] MEDS: BRIMONIDINE 0.2% (ALPHAGAN) OPHTH SOLN 5 ML BTL OU SCH ×3 (09:00→20:53)
[2019-06-17] MEDS: DOCUSATE SODIUM 100 MG (COLACE) CAP PO SCH ×2 (09:00→21:03)
--- NOTE | 2019-06-17 09:04 | Occupational Ther Daily Note ---
OT Current Status-Daily Note Subjective Pt in bed, agrees to therapy, would like to shower this morning. Pt reports 7/10 pain in right knee. Mental Status/Objective Therapy Code Descriptions/Definitions Functional Crane Measure: 0=Not Assessed/NA 4=Minimal Assistance 1=Total Assistance 5=Supervision or Setup 2=Maximal Assistance 6=Modified Crane 3=Moderate Assistance 7=Complete Crane Attachments: Oxygen ADL-Treatment Pt supine to sit with SBA. Sit to stand with SBA. Gait to restroom with FWW. Transfer to toilet with CGA. Pt able to complete toileting hygiene, but requires CGA for balance during clothing management. Transfer to walk in shower with CGA for balance, cues for safety, Seated bathing completed using hand held shower. Pt able to wash all areas except bottom of feet and declined to use long handled sponge. Don pullover shirt with set up. Pt able to thread bilateral LE into Depends and pants. Stood with CGA for balance during pant hike. Pt donned sandals with set up, states she never wears socks. Pt stood at sink to comb hair with SBA for balance. Therapy Code Descriptions/Definitions Functional Crane Measure: 0=Not Assessed/NA 4=Minimal Assistance 1=Total Assistance 5=Supervision or Setup 2=Maximal Assistance 6=Modified Crane 3=Moderate Assistance 7=Complete Crane Therapy Quality Codes: 6 Independent with activity with or without an assistive device 5 Patient requires set up or clean up by helper. Patient completes activity by themselves 4 Supervision or touching assist (CGA). [place] provide cues , steadying assist 3 The helper provides less than half the effort to complete the activity 2 The helper provides more than half the effort to complete the activity 1 Dependent. The helper does all the effort to complete an activity 7 Patient refused to complete or attempt activity 9 The patient did not perform the activity before the current illness or injury 88 Not attempted due to Medical conditions or safety concerns Grooming (FIM): 5 Bathing (FIM): 4 Shower/Bathe Self (QC): 3 Upper Body (FIM): 5 Upper Body Dressing (QC): 5 Lower Body Dressing (FIM): 4 (CGA) Lower Body Dressing (QC): 4 Toileting (FIM): 4 (CGA) Toileting Hygiene (QC): 4 Toilet/Commode Transfer (FIM): 4 Shower Transfer(FIM): 4 Other Treatment Pt completed bilateral UE exercises to increase overall strength and activity tolerance needed for ADLs and transfers. Pt performed four exercises x15 reps with moderate resistance theraband. Rest breaks between exercises. Pt able to recall 2 exercises from yesterday, but requires cues for proper exercise technique. Bilateral hand silviculture forester exercises x20 reps with moderate resistance therapy foam to increase silviculture forester strength for functional tasks. Pt sitting in chair with needs met after session. OT Short Term Goals Short Term Goals Time Frame: Jun 20, 2019 Eating(FIM): 6 Grooming(FIM): 5 Bathing(FIM): 4 Upper Body Dressing(FIM): 4 Lower Body Dressing(FIM): 4 Toileting(FIM): 4 Transfers (B,C,W/C) (FIM): 5 Toilet/Commode Transfer(FIM): 5 Shower Transfer(FIM): 4 Additional Short Term Goals: 1-Demonstrate ADL Tasks, 2-Verbalize Understanding, 3-ImproveStrength/Tay 1=Demonstrate adherence to instructed precautions during ADL tasks. 2=Patient will verbalize/demonstrate understanding of assistive devices/modifications for ADL. 3=Patient will improve strength/tolerance for activity to enable patient to perform ADL's. OT Graphic Design Manager Goals Halfway Goals Time Frame: Jul 04, 2019 Eating (FIM): 6 Eating (QC): 6 Groomin Oral Hygiene (QC): 6 Bathing(FIM): 5 Shower/Bathe Self (QC): 5 Upper Body Dressing(FIM): 6 Upper Body Dressing (QC): 6 Lower Body Dressing(FIM): 5 Lower Body Dressing (QC): 5 On/Off Footwear (QC): 5 Toileting(FIM): 6 Toileting Hygiene (QC): 6 Toilet/Commode Transfer(FIM): 6 Toilet/Commode Transfer (QC): 6 Shower Transfer(FIM): 5 Additional Goals: 1-Demonstrate ADL Tasks, 2-Verbalize Understanding, 3- ImproveStrength/Tay 1=Demonstrate adherence to instructed precautions during ADL tasks. 2=Patient will verbalize/demonstrate understanding of assistive devices/modifications for ADL. 3=Patient will improve strength/tolerance for activity to enable patient to perform ADL's. OT Education/Plan Discharge Recommendations Plan/Recommendations: Continue POC Treatment Plan/Plan of Care Patient would benefit from OT for education, treatment and training to promote independence in ADL's, mobility, safety and/or upper extremity function for ADL's. Plan of Care: ADL Retraining, Functional Mobility, Group Exercise/Act as Ind, UE Funct Exercise/Act Treatment Duration: Jul 04, 2019 Frequency: At least 5 of 7 days/Wk (IRF) Estimated Hrs Per Day: 1.5 hours per day Agreement: Yes Rehab Potential: Fair Time/GCodes Start Time: 08:00 Stop Time: 09:00 Total Time Billed (hr/min): 60 Billed Treatment Time 1 visit, ADLx3(45minutes), EX(15minutes) VIOLA LONG OT Jun 17, 2019 09:04
[2019-06-17] MEDS: MAGIC MOUTHWASH (ADULT) PO SCH ×16 (09:30→20:54)
[2019-06-17] MEDS: rOPINIRole 0.25 MG (REQUIP) TAB PO SCH (09:31)
[2019-06-17] MEDS: DULoxetine 30 MG (CYMBALTA) CAP PO SCH (09:32)
[2019-06-17] MEDS: amLODIPine 10 MG (NORVASC) TAB PO SCH (09:32)
[2019-06-17] MEDS: FUROSEMIDE 40 MG (LASIX) TAB PO SCH (09:32)
[2019-06-17] MEDS: LABETALOL 200 MG (NORMODYNE) TAB PO SCH ×2 (09:32→20:54)
[2019-06-17] MEDS: GABAPENTIN 300 MG (NEURONTIN) CAP PO SCH ×3 (09:32→20:54)
[2019-06-17] MEDS: toPIRamate 25 MG (TOPAMAX) TAB PO SCH (09:32)
[2019-06-17 09:33] VITALS: BP 121/74
--- NOTE | 2019-06-17 09:52 | PM&R Progress Note ---
Subjective HPI/CC On Admission Date Seen by Provider: Jun 17, 2019 Time Seen by Provider: 09:00 Chief complaint: Debility following right total knee replacement complicated with pneumonia and elevated creatinine History of present illness: This is a 68-year-old white female clinic patient of [facility] who is admitted to inpatient rehab following a right total knee arthroplasty by Dr. Meneses there was originally uncomplicated but then became complicated with a postop pneumonia. I am unable to get any reli able details from the patient since they are very vague complaints and she reports that she still feels loopy from the pain medication given today. I do reviewed the prior records from Dr. Crum and it appears that she was a poor historian to begin with and having difficulty motivating to participating therapy. At this current time patient is reporting a sore throat of which the nurse was given no reported that that she complained of it upstairs on fourth floor. Her Levaquin will be maintained every other day renal dosed due to her multiple antibiotic allergies. Her baseline creatinine is 1.7. She does see nephrology on a regular basis but unable to tell me the name of that doctor. Mann samuel is really unable to tell me any of her doctors names except for Lola Benson who she sees a [facility]. She remained on DVT prophylaxis of heparin since postoperative but venous Doppler ultrasound was ordered for thorough medical care evaluation but the lower extremities do not appear to be edematous or have any type of pain on the calf muscle. We will try to be judicious regarding pain medication administration in order to prevent oversedation. We will inquire further when she is less drowsy regarding her prior level of functioning. Subjective/Events-last exam Dr. Joaquin ordered some tests, Hgb today 7.8 Hemoccult was just sent down this afternoon Zenker's Diverticulum is being managed conservatively with throat lozenges and coating before she takes her pills. She can't eat hot foods and cold foods and liquids are much better. Declined any barium swallow Sugars are okay Not as pale as yesterday PT and OT shows standby assist slow gait Slum score appears to be 20/30 so cognitive deficiency noted New oxygen dependency may require home health with nurse Checked meds and labs Reviewed therapy notes and all imaging scans and labs Conferred with respiratory clinician of Systems General: Fatigue Musculoskeletal: leg pain Objective Exam Vital Signs Vital Signs Date Time Temp Pulse Resp B/P (MAP) Pulse Ox O2 Delivery O2 Flow Rate FiO2 06/17/19 18:49 94 Nasal Cannula 2.00 06/17/19 18:00 97.1 85 16 130/82 (98) Capillary Refill : General Appearance: No Apparent Distress, WD/WN, Chronically ill, Other (much improved) HEENT: PERRL/EOMI, Normal ENT Inspection, Pharynx Normal, Moist Mucous Membranes Neck: Full Range of Motion, Normal Inspection, Non Tender, Supple Respiratory: Chest Non Tender, No Accessory Muscle Use, No Respiratory Distress, Crackles (LLL), Decreased Breath Sounds Cardiovascular: Regular Rate, Rhythm, No Edema, No Gallop, No JVD, No Murmur Gastrointestinal: Normal Bowel Sounds, No Organomegaly, No Pulsatile Mass, Non Tender, Soft Back: Normal Inspection, No CVA Tenderness, No Vertebral Tenderness Extremity: Normal Capillary Refill, Normal Inspection, Normal Range of Motion (except right leg), Non Tender, No Calf Tenderness, No Pedal Edema Neurologic/Psychiatric: Alert, Oriented x3, No Motor/Sensory Deficits, structural welder II- XII Norm as Tested, Abnormal Gait, Depressed Affect, Disoriented (subtle) Skin: Normal Color, Warm/Dry Lymphatic: No Adenopathy Results/Procedures Lab Laboratory Tests 06/17/19 05:10 Patient resulted labs reviewed. FIM Transfers Therapy Code Descriptions/Definitions Functional Gray Measure: 0=Not Assessed/NA 4=Minimal Assistance 1=Total Assistance 5=Supervision or Setup 2=Maximal Assistance 6=Modified Gray 3=Moderate Assistance 7=Complete Gray Therapy Quality Codes: 6 Independent with activity with or without an assistive device 5 Patient requires set up or clean up by helper. Patient completes activity by themselves 4 Supervision or touching assist (CGA). [place] provide cues , steadying assist 3 The helper provides less than half the effort to complete the activity 2 The helper provides more than half the effort to complete the activity 1 Dependent. The helper does all the effort to complete an activity 7 Patient refused to complete or attempt activity 9 The patient did not perform the activity before the current illness or injury 88 Not attempted due to Medical conditions or safety concerns Transfers (B, C, W/C) (FIM): 4 Scootin Rollin Roll Left to Right (QC): 4 Supine to/from Sit: 4 Sit to/from Stand: 4 Sit to Lying (QC): 3 Sit to Stand (QC): 3 Chair/[id number]-gg-Ytrnt Xfer(QC): 3 Car Transfer (QC): 3 Gait Training Does the Patient Walk?: Yes Gait (FIM): 2 Distance (FIM): 5=024-44 ft Distance: 50 ft x 3 Walk 10 feet (QC): 4 Walk 50 ft with 2 Turns(QC): 4 Walk 150 ft (QC): 88 (unable to walk this distanc.e ) Walking 10ft/uneven surface-QC: 88 (unsafe to attempt at this time due to fall risk) Gait Assistive Device: FWW Wheelchair Training Does the Pt Use a Wheelchair?: No Stair Training Stairs (FIM): 0 1 Step (curb) (QC): 1 4 Steps (QC): 88 12 Steps (QC): 88 Balance Picking up an Object (QC): 88 Mental Status/Objective Comprehension: 5 Expression: 5 Social Interaction: 4 Problem Solvin Memory: 4 ADL-Treatment Feedin (Set up) Eating (QC): 5 Groomin Bathin Shower/Bathe Self (QC): 3 Upper Extremity Dressin Upper Body Dressing (QC): 5 Lower Extremity Dressin (CGA) Lower Body Dressing (QC): 4 On/Off Footwear (QC): 2 Toiletin (CGA) Toileting Hygiene (QC): 4 Toilet/Commode Transfer: 4 Toilet Transfer (QC): 3 Shower: 4 Assessment/Plan Assessment and Plan Assess & Plan/Chief Complaint Plan: IRF protocol Zenker's diverticulum consultation with Dr Whalen and his management is appreciated Pain control but limit due to oversedation propensity Fall risk when drowsy Home meds Reviewed notes Consult Dr Joaquin for iron def anemia Complete abx Monitor hgb Cognition noted (1) S/P total knee arthroplasty Status: Chronic (2) Acute kidney injury superimposed on chronic kidney disease Status: Acute (3) Type 2 diabetes mellitus Status: Chronic (4) Restless leg syndrome Status: Chronic (5) Essential hypertension Status: Chronic (6) Pleuritic chest pain Status: Acute (7) Coronary artery disease Status: Chronic (8) Left lower lobe pneumonia Status: Acute Qualifiers: Pneumonia type: due to unspecified organism Qualified Codes: J18.1 - Lobar pneumonia, unspecified organism (9) Drowsiness Status: Acute (10) Constipation Status: Acute Qualifiers: Constipation type: slow transit constipation Qualified Codes: K59.01 - Slow transit constipation (11) Sepsis due to pneumonia Status: Acute (12) Normocytic anemia Status: Acute (13) Hyperlipidemia Status: Chronic Qualifiers: Hyperlipidemia type: unspecified Qualified Codes: E78.5 - Hyperlipidemia, unspecified OLIVE ISAAC DO Jun 17, 2019 09:51
--- NOTE | 2019-06-17 12:06 | Speech Therapy Daily Note ---
Speech Daily Progress Note Subjective Date Seen by Provider: Jun 17, 2019 Time Seen by Provider: 00:30 The patient was sitting up in her recliner, she stated she was feeling much better today. Objective The patient completed safety awareness tasks presented verbally "What would you do if....?" at 85% with min to mod verbal cues. Assessment Assessment Current Status: Good Progress Treatment Plan Continue Plan of Care Communication Comprehension: 5 Expression: 5 Social Cognition Social Interaction: 4 Problem Solvin Memory: 4 Speech Short Term Goals Short Term Goals Short Term Goals 1) The patient will complete memory tasks related to her daily needs at 90% or greater with minimal cues. 2) The patient will complete problem solving tasks related to her daily needs at 90% or greater with minimal cues. 3) The patient will complete safety awareness tasks related to her daily needs at 90% or greater with minimal cues. Speech Detention Goals Dental Claims Processor Goals The patient will improve safety awareness and independence in order to safely return home. Speech-Plan Patient/Family Goals Patient/Family Goals: The patient plans on returning to her home upon rehab discharge. Treatment Plan Speech Therapy Treatment Plan: Continue Plan of Care The patient is progressing on ST goals. Treatment Duration: Jun 26, 2019 Frequency: 5 times per week Estimated Hrs Per Day: .5 hour per day Rehab Potential: Fair Barriers to Learning: Patient has cognitive deficits Pt/Family Agrees to Plan: Yes Safety Risks/Education Teaching Recipient: Patient Teaching Methods: Demonstration, Discussion Response to Teaching: Verbalize Understanding, Return Demonstration Education Topics Provided: Continued safety within her room. Time Speech Therapy Time In: 09:00 Speech Therapy Time Out: 09:30 Total Billed Time: 30 Billed Treatment Time [address]SH[address] Jun 17, 2019 12:06
--- NOTE | 2019-06-17 12:19 | Physical Therapy Daily Note ---
PT Daily Note-Current Subjective Pt. agrees to Rx, states she has struggled with shoulders and knees for quite some time and even needs to have her left knee revised that had a TKR in past. No pain c/o when resting. No c/o SOB . Pt. states she does not use O2 at home and wulakshmi really like to be off it here. States she has not been very active at home for quite some time, uses buggy at store Pain Location: No Pain Reported Mental Status Patient Orientation: Normal For Age Attachments: Oxygen (1-2 L O2) Transfers Therapy Code Descriptions/Definitions Functional [place] Measure: 0=Not Assessed/NA 4=Minimal Assistance 1=Total Assistance 5=Supervision or Setup 2=Maximal Assistance 6=Modified [place] 3=Moderate Assistance 7=Complete [place] Therapy Quality Codes: 6 Independent with activity with or without an assistive device 5 Patient requires set up or clean up by helper. Patient completes activity by themselves 4 Supervision or touching assist (CGA). [place] provide cues , steadying assist 3 The helper provides less than half the effort to complete the activity 2 The helper provides more than half the effort to complete the activity 1 Dependent. The helper does all the effort to complete an activity 7 Patient refused to complete or attempt activity 9 The patient did not perform the activity before the current illness or injury 88 Not attempted due to Medical conditions or safety concerns Transfers (B, C, W/C) (FIM): 5 Scootin Rollin Supine to/from Sit: 5 Sit to/from Stand: 5 Weight Bearing Right Lower Extremity: Right Full Weight Bearing Left Lower Extremity: Left Full Weight Bearing Gait Training Does the Patient Walk?: Yes Gait (FIM): 4 Distance (FIM): 3=150 ft (160, 50x3) Gait Level of Assist: 4 Gait Persons Needed: 1 Gait Assistive Device: FWW slow, flexed over device, no LOB Exercises Supine Ex: Ankle pumps, Quad Set, Heel Slides, Short Arc Quads, Scooting, S traight leg raise, Hip abd/add Supine Reps: 12 (x2 bilat) Seated Therapy Exercises: Ankle pumps, Sit to stand, Long arc quads, Hip flexion Seated Reps: 1 Treatments communication with nurse reveals OK to trial titration off O2. Pt. > 90% on 1 L at rest and with activity Assessment Current Status: Good Progress increase funct mob, min pain c/o, states she is not to use CPM or ice b/c of q uestionable bruising.?? PT Short Term Goals Short Term Goals Time Frame: Jun 26, 2019 Transfers (B,C,W/C) (FIM): 5 Gait (FIM): 4 PT Fpc Goals Advisory Application Developer Goals PT Fpc Goals Time Frame: Jul 10, 2019 Transfers (B,C,W/C) (FIM): 7 Sit to Lying (QC): 6 Lying-Sitting on Side/Bed(QC): 6 Sit to Stand (QC): 6 Rollin Roll Left to Right (QC): 6 Chair/Taz-oc-Trcaw Xfer(QC): 6 Car Transfer (QC): 6 Does the Patient Walk: Yes Gait (FIM): 6 Gait distance (FIM): 3=150 ft Walk 10 feet (QC): 6 Walk 10ft-Uneven Surface(QC): 6 Walk 50ft with 2 Turns (QC): 6 Walk 150 ft (QC): 6 Gait Assistive Device: FWW Does the Pt use WC or Scooter?: No Stairs (FIM): 5 # of Steps: 4 1 Step (curb) (QC): 6 4 Steps (QC): 6 12 Steps (QC): 9 Picking up an Object (QC): 4 PT Plan Treatment/Plan Treatment Plan: Continue Plan of Care Treatment Plan: Bed Mobility, Education, Functional Activity Tay, Functional Strength, Group Therapy, Gait, Safety, Therapeutic Exercise, Transfers Treatment Duration: Jul 10, 2019 Frequency: At least 5 of 7 days/Wk (IRF) Estimated Hrs Per Day: 1.5 hours per day Patient and/or Family Agrees t: Yes Safety Risks/Education Patient Education: Gait Training, Transfer Techniques, Correct Positioning, Saf ety Issues Teaching Recipient: Patient Teaching Methods: Demonstration, Discussion Response to Teaching: Verbalize Understanding, Return Demonstration, Reinforcement Needed Time/GCodes Time In: 1000 Time Out: 1100 Total Billed Treatment Time: 60 Total Billed Treatment 1,EX30m,FA15m,GT15m NILS TRAN WEB MARKETING INTERN Jun 17, 2019 12:19
--- NOTE | 2019-06-17 14:07 | Therapy Group Daily Note ---
Therapy Daily Group Note Patient Education Topic Home Safety, Energy Cons, ADL Session Ratio (pt:therapist): 4:1 Goal of Session: Education on ARU Expectations, Energy Conservation Tech., Home Safety Strategies, Safety with Transfers, Use of Adaptive Equipment Goal Met for this Session: Yes Pt Benefit of Group: Contributions to Others, F/U Use of Strategies @Home, Increased Functional Safety, Improved Cognition, Recognition of Peers, Socialization Other/Notes Pt ambulated to [facility] area for OT group. Group consisted of introductions (name, place living, and favorite invention), socialization, use of AE/ DME, and ARU expectations. Pt introduced self appropriately and actively listened to peers. Pt acknowledged understanding of educational topics of AE/ DME within the house including: shower chair vs. shower bench, buildup handle, basket for RW, rocker knife, leg applications project manager, and maintaining a personal emergency card. pt engaged in session by listing example of how to personally use AE within own daily live. After therapy, pt lying in bed with call light/phone in reach. All needs met in room. Start Time: 12:40 Stop Time: 13:50 Total Billed Treatment GRP 70 minutes ISIS TALAVERA OT Jun 17, 2019 14:07
--- NOTE | 2019-06-17 14:20 | Progress Note ---
Standard Progress Note Progress Notes/Assess & Plan Date Seen by a Provider: Jun 17, 2019 Time Seen by a Provider: 14:15 Progress/Assessment & Plan 68-year-old female admitted to rehabilitation unit following right knee replacement. Rapidly worsening anemia over the past 2-3 weeks. Patient seen in consultation with medical student yesterday and see dictated note. She has history of iron deficiency anemia in the past requiring parenteral iron therapy multiple times in the past. Significant bruising in both the lower extremities due to SCDs. Fecal occult blood test positive indicating GI blood loss. Agree with surgical consult for endoscopy to identify a source of blood loss. Hemoglobin is stable or slightly better today. We could continue to monitor this or if her fatigue is increasing, she will need PRBC transfusion to maintain hemoglobin more than 8 g/dL because of her age and cardiac condition. Serum iron studies are pending and if the ferritin level is low, she will need parenteral iron therapy. Will follow patient with you. ASTRID WHYTE Jun 17, 2019 14:20
[2019-06-17] MEDS: guaiFENesin/DM (ROBITUSSIN DM) 10 ML UDC PO PRN ×2 (14:28→21:59)
--- NOTE | 2019-06-17 15:00 | NUR ---
LOGISTICS ENGINEER met with patient to review team conference summary. Patient currently requires standby assist for transfers, min assist for lower body ADLs and bathing and min assist with ambulation. Patient also has had a recent drop in hemoglobin with unknown source. Based on current functionality and hemoglobin concern, team recommends that patient not discharge until 94. LOGISTICS ENGINEER reviewed recommendation of home health services for PT, OT, BOX PRINTING MACHINE OPERATOR and RN. Patient is agreeable to this. Patient requests to utilize [facility] health. LOGISTICS ENGINEER will continue to follow.
[2019-06-17 18:00] VITALS: BP 130/82
[2019-06-17] MEDS: rOPINIRole 1 MG (REQUIP) TABLET PO SCH (20:54)
[2019-06-18] MEDS: RT-ALBUTEROL/IPRATROPIUM 3 ML (DUONEB) VIAL INH SCH ×3 (01:58→20:21)
[2019-06-18] MEDS: oxyCODONE/APAP 10/325MG (PERCOCET 10) TABLET PO PRN ×6 (01:59→22:32)
[2019-06-18] MEDS: guaiFENesin/DM (ROBITUSSIN DM) 10 ML UDC PO PRN ×3 (02:13→14:31)
[2019-06-18 03:17] VITALS: BP 130/82
[2019-06-18] MEDS: HYDROXYCHLOROQUINE 200 MG (PLAQUENIL) TAB PO SCH ×2 (06:02→17:31)
[2019-06-18] MEDS: PANTOPRAZOLE 40 MG (PROTONIX) TAB PO SCH (06:02)
[2019-06-18 06:18] VITALS: BP 107/64
[2019-06-18] MEDS: inSUlin ASPART (NovoLOG) 1 UNIT/0.01 ML (CHARGE PER UNIT) SC SCH ×4 (06:27→21:19)
[2019-06-18 07:47] VITALS: BP 120/69
[2019-06-18] MEDS: BRIMONIDINE 0.2% (ALPHAGAN) OPHTH SOLN 5 ML BTL OU SCH ×3 (07:47→21:19)
[2019-06-18] MEDS: MAGIC MOUTHWASH (ADULT) PO SCH ×16 (07:47→22:16)
[2019-06-18] MEDS: DULoxetine 30 MG (CYMBALTA) CAP PO SCH (07:48)
[2019-06-18] MEDS: FUROSEMIDE 40 MG (LASIX) TAB PO SCH (07:48)
[2019-06-18] MEDS: amLODIPine 10 MG (NORVASC) TAB PO SCH (07:48)
[2019-06-18] MEDS: toPIRamate 25 MG (TOPAMAX) TAB PO SCH (07:48)
[2019-06-18] MEDS: LABETALOL 200 MG (NORMODYNE) TAB PO SCH ×2 (07:48→21:19)
[2019-06-18] MEDS: GABAPENTIN 300 MG (NEURONTIN) CAP PO SCH ×3 (07:48→21:19)
[2019-06-18] MEDS: rOPINIRole 0.25 MG (REQUIP) TAB PO SCH (07:48)
--- NOTE | 2019-06-18 08:24 | Cardiology Progress Note ---
Subjective Date Seen by Provider: Jun 18, 2019 Time Seen by Provider: 07:55 Subjective/Events-last exam Patient is sitting up in bed, complaining of right leg pain. Denies any chest pain. Objective-Cardiology Exam Last Set of Vital Signs Vital Signs 06/18/19 06/18/19 06:18 07:47 Temp 97.8 Pulse 93 Resp 16 B/P (MAP) 120/69 (86) Pulse Ox 94 O2 Delivery Nasal Cannula O2 Flow Rate 2.00 Capillary Refill : I&O Intake and Output 06/18/19 00:00 Intake Total 2450 ml Balance 2450 ml Intake Oral 2450 ml # Voids 9 # Bowel Movements 3 General: Alert, Oriented X3, Cooperative HEENT: Atraumatic, PERRLA Neck: Supple, No JVD, No Thyromegaly Lungs: Clear to Auscultation, Normal Air Movement Heart: Regular Rate, Normal S1, Normal S2, No Murmurs Abdomen: Normal Bowel Sounds, Soft, No Tenderness, No Hepatosplenomegaly, No Masses Extremities: No Cyanosis, Normal Pulses, Other (right leg 2+ edemaTenderness) Skin: No Rashes, No Breakdown, No Significant Lesion Neuro: Normal Gait, Normal Speech, Strength at 5/5 X4 Ext, Normal Tone, Sensation Intact Psych/Mental Status: Mental Status NL, Mood NL A/P-Cardiology Admission Diagnosis chest pain CAD dyspnea HTN Assessment/Plan Chest pain, nonspecific etiology. No evidence of acute coronary syndrome. Low probability VQ scan for PE on 06/13/19. Denies any further episode or chest pain, continue to monitor Coronary artery disease, history of stent to the right coronary artery using 3.5 time 12 mm Ion stent done in 2009, last stress test was done in November 2018 showing no significant ischemia or infarction. Pleuritic chest pain, CT scan of the chest suggestive of left mass versus pneumonia, receiving antibiotics. Managed by Dr. Garcia. Shortness of breath, acute respiratory insufficiency, improved at this time. Continue to monitor Anemia, monitor H&H, aspirin was discontinued, Hemoccult +. Management per Dr. 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 Continue to monitor Status post right total knee arthroplasty done on June 09, 2019, recovering slowly, receiving physical therapy. Complaining of increased right leg pain, scheduled for RLE venous duplex later today. Hypertension, blood pressure is better controlled. Monitor blood pressure Hyperlipidemia, continue to monitor lipids Diabetes mellitus, followed and managed by primary care physician History of restless leg syndrome Clinical Quality Measures DVT/VTE Risk/Contraindication: Risk Factor Score Per Nursin RFS Level Per Nursing on Admit: 4+=Very High YRN ORTIZ Jun 18, 2019 08:24
[2019-06-18] MEDS ORDERED: RT-BUDESONIDE NEBS 0.5 MG/2ML (PULMICORT) AMP ONE (08:59)
[2019-06-18] MEDS: SENNA W/DOCUSATE (SENOKOT S) TABLET PO SCH ×2 (09:00→22:17)
[2019-06-18] MEDS: DOCUSATE SODIUM 100 MG (COLACE) CAP PO SCH ×2 (09:00→22:16)
[2019-06-18] MEDS: POLYETHYLENE GLYCOL 17 GM (MIRALAX) PACK PO SCH ×2 (09:00→22:17)
--- NOTE | 2019-06-18 09:02 | PM&R Progress Note ---
Subjective HPI/CC On Admission Date Seen by Provider: Jun 18, 2019 Time Seen by Provider: 08:30 Chief complaint: Debility following right total knee replacement complicated with pneumonia and elevated creatinine History of present illness: This is a 68-year-old white female clinic patient of [facility] who is admitted to inpatient rehab following a right total knee arthroplasty by Dr. Meneses there was originally uncomplicated but then became complicated with a postop pneumonia. I am unable to get any reliable details from the patient since they are very vague complaints and she reports that she still feels loopy from the pain medication given today. I do reviewed the prior records from Dr. Crum and it appears that she was a poor historian to begin with and having difficulty motivating to participating therapy. At this current time patient is reporting a sore throat of which the nurse was given no reported that that she complained of it upstairs on fourth floor. Her Levaquin will be maintained every other day renal dosed due to her multiple antibiotic allergies. Her baseline creatinine is 1.7. She does see nephrology on a regular basis but unable to tell me the name of that doctor. She is really unable to tell me any of her doctors names except for Lola Benson who she sees a [facility]. She remained on DVT prophylaxis of heparin since postoperative but venous Doppler ultrasound was ordered for [facility] rough medical care evaluation but the lower extremities do not appear to be edematous or have any type of pain on the calf muscle. We will try to be judicious regarding pain medication administration in order to prevent oversedation. We will inquire further when she is less drowsy regarding her prior level of functioning. Subjective/Events-last exam Right leg pain with edema so venous doppler ultrasound will be obtained. Has some difficult personality traits which Pt is having difficulty with nursing staff sometimes. Hemoccult positive and that will be reported to Dr. Chacko. No melena is reported. Wheezing noted so I will consult Dr. Garcia and will continue antibiotics for the pneumonia and start steroids empirically and check chest X-ray. Appreciate Dr. Hedrick expertise. New oxygen dependency may require home health with nurse Checked meds and labs Reviewed therapy notes and all imaging scans and labs Conferred with entry level mechanical engineer of Systems General: Fatigue Musculoskeletal: leg pain Objective Exam Vital Signs Vital Signs Date Time Temp Pulse Resp B/P (MAP) Pulse Ox O2 Delivery O2 Flow Rate FiO2 06/18/19 20:26 91 06/18/19 20:21 Nasal Cannula 0.50 06/18/19 17:24 98.7 89 18 156/74 (101) Capillary Refill : General Appearance: No Apparent Distress, WD/WN, Chronically ill, Other (much improved) HEENT: PERRL/EOMI, Normal ENT Inspection, Pharynx Normal, Moist Mucous Membranes Neck: Full Range of Motion, Normal Inspection, Non Tender, Supple Respiratory: Chest Non Tender, No Accessory Muscle Use, No Respiratory Distress, Crackles (LLL), Decreased Breath Sounds Cardiovascular: Regular Rate, Rhythm, No Edema, No Gallop, No JVD, No Murmur Gastrointestinal: Normal Bowel Sounds, No Organomegaly, No Pulsatile Mass, Non Tender, Soft Back: Normal Inspection, No CVA Tenderness, No Vertebral Tenderness Extremity: Normal Capillary Refill, Normal Inspection, Normal Range of Motion (except right leg), Non Tender, No Calf Tenderness, No Pedal Edema Neurologic/Psychiatric: Alert, Oriented x3, No Motor/Sensory Deficits, saw handle assembler II- XII Norm as Tested, Abnormal Gait, Depressed Affect, Disoriented (subtle) Skin: Normal Color, Warm/Dry Lymphatic: No Adenopathy Results/Procedures Lab Patient resulted labs reviewed. FIM Transfers Therapy Code Descriptions/Definitions Functional [place] Measure: 0=Not Assessed/NA 4=Minimal Assistance 1=Total Assistance 5=Supervision or Setup 2=Maximal Assistance 6=Modified [place] 3=Moderate Assistance 7=Complete [place] Therapy Quality Codes: 6 Independent with activity with or without an assistive device 5 Patient requires set up or clean up by helper. Patient completes activity by themselves 4 Supervision or touching assist (CGA). [place] provide cues , steadying as sist 3 The helper provides less than half the effort to complete the activity 2 The helper provides more than half the effort to complete the activity 1 Dependent. The helper does all the effort to complete an activity 7 Patient refused to complete or attempt activity 9 The patient did not perform the activity before the current illness or injury 88 Not attempted due to Medical conditions or safety concerns Transfers (B, C, W/C) (FIM): 5 Scootin Rollin Roll Left to Right (QC): 4 Supine to/from Sit: 5 Sit to/from Stand: 5 Sit to Lying (QC): 3 Sit to Stand (QC): 3 Chair/Trc-jj-Smsee Xfer(QC): 3 Car Transfer (QC): 3 Gait Training Does the Patient Walk?: Yes Gait (FIM): 4 Distance (FIM): 3=150 ft (160, 50x3) Distance: 50 ft x 3 Walk 10 feet (QC): 4 Walk 50 ft with 2 Turns(QC): 4 Walk 150 ft (QC): 88 (unable to walk this distanc.e ) Walking 10ft/uneven surface-QC: 88 (unsafe to attempt at this time due to fall risk) Gait Level of Assist: 4 Gait Persons Needed: 1 Gait Assistive Device: FWW Wheelchair Training Does the Pt Use a Wheelchair?: No Stair Training Stairs (FIM): 0 1 Step (curb) (QC): 1 4 Steps (QC): 88 12 Steps (QC): 88 Balance Picking up an Object (QC): 88 Mental Status/Objective Comprehension: 5 Expression: 5 Social Interaction: 4 Problem Solvin Memory: 4 ADL-Treatment Feedin (Set up) Eating (QC): 5 Groomin Bathin Shower/Bathe Self (QC): 3 Upper Extremity Dressin Upper Body Dressing (QC): 5 Lower Extremity Dressin (CGA) Lower Body Dressing (QC): 4 On/Off Footwear (QC): 2 Toiletin (CGA) Toileting Hygiene (QC): 4 Toilet/Commode Transfer: 4 Toilet Transfer (QC): 3 Shower: 4 Assessment/Plan Assessment and Plan Assess & Plan/Chief Complaint Plan: IRF protocol Zenker's diverticulum consultation with Dr Whalen and his management is appreciated Pain control but limit due to oversedation propensity Fall risk when drowsy Home meds Reviewed notes Consult Dr Joaquin for iron def anemia Complete abx Monitor hgb Cognition noted Occult + (1) S/P total knee arthroplasty Status: Chronic (2) Acute kidney injury superimposed on chronic kidney disease Status: Acute (3) Type 2 diabetes mellitus Status: Chronic (4) Restless leg syndrome Status: Chronic (5) Essential hypertension Status: Chronic (6) Pleuritic chest pain Status: Acute (7) Coronary artery disease Status: Chronic (8) Left lower lobe pneumonia Status: Acute Qualifiers: Pneumonia type: due to unspecified organism Qualified Codes: J18.1 - Lobar pneumonia, unspecified organism (9) Drowsiness Status: Acute (10) Constipation Status: Acute Qualifiers: Constipation type: slow transit constipation Qualified Codes: K59.01 - Slow transit constipation (11) Sepsis due to pneumonia Status: Acute (12) Normocytic anemia Status: Acute (13) Hyperlipidemia Status: Chronic Qualifiers: Hyperlipidemia type: unspecified Qualified Codes: E78.5 - Hyperlipidemia, unspecified (14) Occult blood positive stool OLIVE ISAAC DO Jun 18, 2019 09:02
[2019-06-18] MEDS: RT-BUDESONIDE NEBS 0.5 MG/2ML (PULMICORT) AMP INH SCH ×2 (09:06→20:23)
[2019-06-18] MEDS: methylPREDNISolone 40 MG/ML (Solu-MEDROL) VIAL IV SCH ×4 (10:00→23:05)
[2019-06-18] MEDS: ONDANSETRON 4 MG/2 ML (SDV) Z0FRAN IVP PRN (10:02)
--- NOTE | 2019-06-18 10:21 | Physical Therapy Daily Note ---
PT Daily Note-Current Subjective Pt reports still feeling a little nauseated since breakfast, started coughing and getting sick. Nsg states pt has just received Zofran for nausea. Pt is agreeable to PT session Pain Numeric Pain Scale: 7 Comment: whole R leg but mostly R knee Appearance upon arrival, pt supine in bed with RLE elevated and polar pack on. At end of session, per pt request, supine in bed with polar pack on and LE's elevated, call light, phone and bedside table within reach. Denies need for restroom Mental Status Patient Orientation: Person, Place, Time, Eyes Open, Situation, Normal For Age Attachments: Central Line, Oxygen, Polar Pack Transfers Therapy Code Descriptions/Definitions Functional [place] Measure: 0=Not Assessed/NA 4=Minimal Assistance 1=Total Assistance 5=Supervision or Setup 2=Maximal Assistance 6=Modified [place] 3=Moderate Assistance 7=Complete [place] Therapy Quality Codes: 6 Independent with activity with or without an assistive device 5 Patient requires set up or clean up by helper. Patient completes activity by themselves 4 Supervision or touching assist (CGA). [place] provide cues , steadying assist 3 The helper provides less than half the effort to complete the activity 2 The helper provides more than half the effort to complete the activity 1 Dependent. The helper does all the effort to complete an activity 7 Patient refused to complete or attempt activity 9 The patient did not perform the activity before the current illness or injury 88 Not attempted due to Medical conditions or safety concerns Transfers (B, C, W/C) (FIM): 5 Scootin Rollin Supine to/from Sit: 5 (with HOB elevated, min use of bedrail) Sit to/from Stand: 5 (good hand placement and safety techniques) Weight Bearing Right Lower Extremity: Right Full Weight Bearing Left Lower Extremity: Left Full Weight Bearing Gait Training Does the Patient Walk?: Yes Gait (FIM): 5 Distance (FIM): 3=150 ft Distance: 115 x2 Gait Level of Assist: 5 (SBA and verb inst/encouragement provided) Gait Persons Needed: 1 Gait Assistive Device: FWW slight antalgic, decreased step length and height, zahida RLE but clears floor, kyphotic posture, heavily relying on walker at times Exercises Supine Ex: Ankle pumps (20), Quad Set (20 (x10 AROM, x10 with increased PROM stretch at end)), Heel Slides (20 (x10 AROM, x10 with increased PROM stretch at end)), Short Arc Quads (20), Straight leg raise NuStep Minutes: 12 NuStep Workload: 4 (seat 7 to encourage increasing knee flexion, arms 5) Treatments bed mobility, transfer, safety, gait, toileting, strength, activity tolerance, functional mobility, balance, ROM Assessment Current Status: Good Progress PT Short Term Goals Short Term Goals Time Frame: Jun 26, 2019 Transfers (B,C,W/C) (FIM): 5 Gait (FIM): 4 PT Client Services Manager Goals Client Services Manager Goals PT Client Services Manager Goals Time Frame: Jul 10, 2019 Transfers (B,C,W/C) (FIM): 7 Sit to Lying (QC): 6 Lying-Sitting on Side/Bed(QC): 6 Sit to Stand (QC): 6 Rollin Roll Left to Right (QC): 6 Chair/Lej-yi-Rswox Xfer(QC): 6 Car Transfer (QC): 6 Does the Patient Walk: Yes Gait (FIM): 6 Gait distance (FIM): 3=150 ft Walk 10 feet (QC): 6 Walk 10ft-Uneven Surface(QC): 6 Walk 50ft with 2 Turns (QC): 6 Walk 150 ft (QC): 6 Gait Assistive Device: FWW Does the Pt use WC or Scooter?: No Stairs (FIM): 5 # of Steps: 4 1 Step (curb) (QC): 6 4 Steps (QC): 6 12 Steps (QC): 9 Picking up an Object (QC): 4 PT Plan Treatment/Plan Treatment Plan: Continue Plan of Care Treatment Plan: Bed Mobility, Education, Functional Activity Tay, Functional Strength, Group Therapy, Gait, Safety, Therapeutic Exercise, Transfers Treatment Duration: Jul 10, 2019 Frequency: At least 5 of 7 days/Wk (IRF) Estimated Hrs Per Day: 1.5 hours per day Patient and/or Family Agrees t: Yes Safety Risks/Education Patient Education: Gait Training, Transfer Techniques, Safety Issues Teaching Recipient: Patient Teaching Methods: Demonstration, Discussion Time/GCodes Time In: 1015 Time Out: 1115 Total Billed Treatment Time: 60 Total Billed Treatment 1 visit, FA x15 min, GT x20 min, EX x25 min GARY VAZQUEZ INDIVIDUAL SMALL GROUP INSTRUCTOR Jun 18, 2019 10:21
--- NOTE | 2019-06-18 12:21 | Diagnostic Imaging Report ---
EXAMINATION: PA and lateral chest at 09:22 a.m. INDICATION: Wheezing. FINDINGS: The heart size is within normal limits and stable when compared to 06/13/2019. The elevated right hemidiaphragm seen previously is again evident and no different. The left retrocardiac region does seem better aerated than on the prior exam. Both upper lobes remain generally clear. The mediastinum is not widened. The osseous structures are intact. The left-sided Port-A-Cath remains in good position. Impression: The appearance of the chest has improved since the prior exam as the left retrocardiac region does seem better aerated. There is no acute abnormality identified. Dictated by: Dictated on workstation # [id number]
--- NOTE | 2019-06-18 12:29 | Occupational Ther Daily Note ---
OT Current Status-Daily Note Subjective Pt alert, sitting in EOB. Nrsg in room. Pt had just returned from x-ray. Pt agrees to therapy. No c/o pain. Mental Status/Objective Patient Orientation: Person, Place, Time, Situation Therapy Code Descriptions/Definitions Functional [place] Measure: 0=Not Assessed/NA 4=Minimal Assistance 1=Total Assistance 5=Supervision or Setup 2=Maximal Assistance 6=Modified [place] 3=Moderate Assistance 7=Complete [place] ADL-Treatment Pt able to completed sit <--> stand with SBA. Ambulated to bathroom using FWW with close SBA. Completed toileting using FWW and grabbar with close SBA. Toilet transfer using FWW and grabbar, SBA. Grooming at sink, close SBA using FWW. Pt declined shower at this time. Pt ambulated back to recliner for recovery break, SOA noted. Pt ambulated using FWW to therapy gym with CGA to close SBA. Therapy Code Descriptions/Definitions Functional [place] Measure: 0=Not Assessed/NA 4=Minimal Assistance 1=Total Assistance 5=Supervision or Setup 2=Maximal Assistance 6=Modified [place] 3=Moderate Assistance 7=Complete [place] Therapy Quality Codes: 6 Independent with activity with or without an assistive device 5 Patient requires set up or clean up by helper. Patient completes activity by themselves 4 Supervision or touching assist (CGA). [place] provide cues , steadying assist 3 The helper provides less than half the effort to complete the activity 2 The helper provides more than half the effort to complete the activity 1 Dependent. The helper does all the effort to complete an activity 7 Patient refused to complete or attempt activity 9 The patient did not perform the activity before the current illness or injury 88 Not attempted due to Medical conditions or safety concerns Grooming (FIM): 5 Oral Hygiene (QC): 4 Toileting (FIM): 5 Toileting Hygiene (QC): 4 Transfers (B, C, W/C) (FIM): 5 Toilet/Commode Transfer (FIM): 5 Toilet Transfer (QC): 4 Other Treatment Completed arm bike for 15 min at 15 ravi resistance without recovery breaks to increase strength and activity tolerance for daily functional tasks. Pt required assist to position LE's in bed. After therapy, pt lying in bed with call light/phone in reach. All needs met in room. OT Short Term Goals Short Term Goals Time Frame: Jun 20, 2019 Eating(FIM): 6 Grooming(FIM): 5 Bathing(FIM): 4 Upper Body Dressing(FIM): 4 Lower Body Dressing(FIM): 4 Toileting(FIM): 4 Transfers (B,C,W/C) (FIM): 5 Toilet/Commode Transfer(FIM): 5 Shower Transfer(FIM): 4 Additional Short Term Goals: 1-Demonstrate ADL Tasks, 2-Verbalize Understanding, 3-ImproveStrength/Tay 1=Demonstrate adherence to instructed precautions during ADL tasks. 2=Patient will verbalize/demonstrate understanding of assistive devices/modifications for ADL. 3=Patient will improve strength/tolerance for activity to enable patient to perform ADL's. OT Professional Benefits Sales Consultant Goals Professional Benefits Sales Consultant Goals Time Frame: Jul 04, 2019 Eating (FIM): 6 Eating (QC): 6 Groomin Oral Hygiene (QC): 6 Bathing(FIM): 5 Shower/Bathe Self (QC): 5 Upper Body Dressing(FIM): 6 Upper Body Dressing (QC): 6 Lower Body Dressing(FIM): 5 Lower Body Dressing (QC): 5 On/Off Footwear (QC): 5 Toileting(FIM): 6 Toileting Hygiene (QC): 6 Toilet/Commode Transfer(FIM): 6 Toilet/Commode Transfer (QC): 6 Shower Transfer(FIM): 5 Additional Goals: 1-Demonstrate ADL Tasks, 2-Verbalize Understanding, 3- ImproveStrength/Tay 1=Demonstrate adherence to instructed precautions during ADL tasks. 2=Patient will verbalize/demonstrate understanding of assistive devices/mo difications for ADL. 3=Patient will improve strength/tolerance for activity to enable patient to perform ADL's. OT Education/Plan Problem List/Assessment Assessment: Decreased Activ Tolerance, Decreased UE Strength, Impaired Self- Care Skills Discharge Recommendations Plan/Recommendations: Continue POC Treatment Plan/Plan of Care Patient would benefit from OT for education, treatment and training to promote independence in ADL's, mobility, safety and/or upper extremity function for ADL's. Plan of Care: ADL Retraining, Functional Mobility, Group Exercise/Act as Ind, UE Funct Exercise/Act Treatment Duration: Jul 04, 2019 Frequency: At least 5 of 7 days/Wk (IRF) Estimated Hrs Per Day: 1.5 hours per day Agreement: Yes Rehab Potential: Fair Time/GCodes Start Time: 09:25 Stop Time: 10:15 Total Time Billed (hr/min): 50 Billed Treatment Time 1 visit-ADL 3 (50 min) PORTER VICTORIA Jun 18, 2019 12:29
--- NOTE | 2019-06-18 12:58 | Physical Therapy Daily Note ---
PT Daily Note-Current Subjective Agrees to PT. Reports she will only walk to the door and back. Transfers Therapy Code Descriptions/Definitions Functional [place] Measure: 0=Not Assessed/NA 4=Minimal Assistance 1=Total Assistance 5=Supervision or Setup 2=Maximal Assistance 6=Modified [place] 3=Moderate Assistance 7=Complete [place] Therapy Quality Codes: 6 Independent with activity with or without an assistive device 5 Patient requires set up or clean up by helper. Patient completes activity by themselves 4 Supervision or touching assist (CGA). [place] provide cues , steadying assist 3 The helper provides less than half the effort to complete the activity 2 The helper provides more than half the effort to complete the activity 1 Dependent. The helper does all the effort to complete an activity 7 Patient refused to complete or attempt activity 9 The patient did not perform the activity before the current illness or injury 88 Not attempted due to Medical conditions or safety concerns Weight Bearing Right Lower Extremity: Right Full Weight Bearing Left Lower Extremity: Left Full Weight Bearing Treatments Pt ambulated x 50 ft with FWW with SBA. Pt sat EOB to perform LE ther ex x 12 each to promote functional ROM right and strength for improved transfers and gait. Seated AP, LAQ, ham curls and hip flexion; passive knee flexion stretch performed as well. Sit to supine with SBA. In bed post treatment with OT to follow. Assessment Current Status: Good Progress Pt progressing with functional mobiltiy. PT Short Term Goals Short Term Goals Time Frame: Jun 26, 2019 Transfers (B,C,W/C) (FIM): 5 Gait (FIM): 4 PT Mcc Goals Boat Diesel Motor Mechanic Goals PT Mcc Goals Time Frame: Jul 10, 2019 Transfers (B,C,W/C) (FIM): 7 Sit to Lying (QC): 6 Lying-Sitting on Side/Bed(QC): 6 Sit to Stand (QC): 6 Rollin Roll Left to Right (QC): 6 Chair/Hkr-rq-Gmojd Xfer(QC): 6 Car Transfer (QC): 6 Does the Patient Walk: Yes Gait (FIM): 6 Gait distance (FIM): 3=150 ft Walk 10 feet (QC): 6 Walk 10ft-Uneven Surface(QC): 6 Walk 50ft with 2 Turns (QC): 6 Walk 150 ft (QC): 6 Gait Assistive Device: FWW Does the Pt use WC or Scooter?: No Stairs (FIM): 5 # of Steps: 4 1 Step (curb) (QC): 6 4 Steps (QC): 6 12 Steps (QC): 9 Picking up an Object (QC): 4 PT Plan Problem List Problem List: Activity Tolerance, Functional Strength, Safety, Balance, Gait, Transfer, Bed Mobility, ROM Treatment/Plan Treatment Plan: Continue Plan of Care Treatment Plan: Bed Mobility, Education, Functional Activity Tay, Functional Strength, Group Therapy, Gait, Safety, Therapeutic Exercise, Transfers Treatment Duration: Jul 10, 2019 Frequency: At least 5 of 7 days/Wk (IRF) Estimated Hrs Per Day: 1.5 hours per day Patient and/or Family Agrees t: Yes Safety Risks/Education Patient Education: Safety Issues Teaching Recipient: Patient Teaching Methods: Discussion Response to Teaching: Reinforcement Needed Time/GCodes Time In: 1235 Time Out: 1253 Total Billed Treatment Time: 18 Total Billed Treatment visit gt 7 EX 11 PORTER OGDEN PT Jun 18, 2019 12:58
--- NOTE | 2019-06-18 13:40 | Speech Therapy Daily Note ---
Speech Daily Progress Note Subjective Date Seen by Provider: Jun 18, 2019 Time Seen by Provider: 00:30 The patient was visiting with her son when I entered the room for our ST session. Objective The patient completed a series of fill in the blanks to statements/questions related to daily routine at 85% with minimal cues and/or repetitions. Assessment Assessment Current Status: Good Progress Treatment Plan Continue Plan of Care Communication Comprehension: 5 Expression: 5 Social Cognition Social Interaction: 4 Problem Solvin Memory: 4 Speech Short Term Goals Short Term Goals Short Term Goals 1) The patient will complete memory tasks related to her daily needs at 90% or greater with minimal cues. 2) The patient will complete problem solving tasks related to her daily needs at 90% or greater with minimal cues. 3) The patient will complete safety awareness tasks related to her daily needs at 90% or greater with minimal cues. Speech Senior Living Goals Boilers And Pressure Vessels Inspector Goals The patient will improve safety awareness and independence in order to safely return home. Speech-Plan Patient/Family Goals Patient/Family Goals: The patient plans on returning home with good family support post rehab. Treatment Plan Speech Therapy Treatment Plan: Continue Plan of Care The patient is progressing well with cognitive therapy. Treatment Duration: Jun 26, 2019 Frequency: 5 times per week Estimated Hrs Per Day: .5 hour per day Rehab Potential: Fair Barriers to Learning: Patient has cognitive deficits, although they appear to be resolving. Pt/Family Agrees to Plan: Yes Safety Risks/Education Teaching Recipient: Patient Teaching Methods: Demonstration, Discussion Response to Teaching: Verbalize Understanding, Return Demonstration Education Topics Provided: Continued safety and communication of wants/needs Time Speech Therapy Time In: 08:30 Speech Therapy Time Out: 09:00 Total Billed Time: 30 Billed Treatment Time 1, VÍCTOR Lentz Jun 18, 2019 13:40
--- NOTE | 2019-06-18 13:49 | NUR ---
FACILITIES SPECIALIST sent [facility] referral to Julien
[2019-06-18] MEDS ORDERED: RT-ALBUTEROL/IPRATROPIUM 3 ML (DUONEB) VIAL INH PRN (15:30)
--- NOTE | 2019-06-18 15:30 | Pulmonary Consultation ---
History of Present Illness History of Present Illness Date of Consultation 06/18/19 15:25 Time Seen by Provider: 13:41 Date of Admission History of Present Illness 68yo with hx of zenker's diverticulum admitted to rehab unit for inpt rehab. over the last 2-3 days SOB has been worsening. I am consulted for pulmonary management. Allergies and Home Medications Allergies Coded Allergies: clopidogrel (Verified Allergy, Severe, BLOOD CLOTS, 11/27/18) Penicillins (Verified Allergy, Mild, RASH, 11/27/18) carisoprodol (Verified Allergy, Mild, RASH, 11/27/18) cephalexin (Verified Allergy, Mild, RASH, 11/27/18) ketorolac (Verified Allergy, Mild, RASH, 11/27/18) prochlorperazine (Verified Allergy, Mild, RASH, 11/27/18) Carbamates (Verified Allergy, Unknown, Rash, 05/28/19) Home Medications Amlodipine Besylate 10 Mg Tablet, 10 MG PO DAILY, (Reported) Atorvastatin Calcium 80 Mg Tablet, 40 MG PO HS, (Reported) TAKE 1/2 OF 80MG TAB Baclofen 10 Mg Tablet, 10 MG PO TID PRN for MUSCLE SPASMS, (Reported) Brimonidine Tartrate 5 Ml Btl, 1 DROP OU TID, (Reported) 0.15% Butalbit/Acetamin/Caff/Codeine 1 Each Capsule, 1 CAP PO TID PRN for MIGRAINE, (Reported) Carboxymethylcellulos/Glycerin 10 Ml Drops.gel, 1 DROP OD TID, (Reported) USE RIGHT BEFORE BRIMONIDINE EYE DROPS Duloxetine HCl 30 Mg Capsule.dr, 30 MG PO DAILY, (Reported) TAKE ALONG WITH 60MG CAP FOR A TOTAL DAILY DOSE OF 90MG Duloxetine HCl 60 Mg Capsule.dr, 60 MG PO DAILY, (Reported) TAKES ALONG WITH 30MG CAPSULE FOR A TOTAL DAILY DOSE OF 90MG Folic Acid 1 Mg Tablet, 1 MG PO DAILY, (Reported) Furosemide 40 Mg Tablet, 40 MG PO DAILY, (Reported) Gabapentin 300 Mg Capsule, 300 MG PO BID, (Reported) Glipizide 5 Mg Tablet, 5 MG PO DAILY, (Reported) Hydroxychloroquine Sulfate 200 Mg Tablet, 400 MG PO DAILY, (Reported) Labetalol HCl 200 Mg Tablet, 400 MG PO DAILY, (Reported) TAKE 2 (200MG) TABS Oxycodone HCl/Acetaminophen 1 Each Tablet, 1 TAB PO Q4H PRN for PAIN-MODERATE Prescribed by: OLIVE ISAAC on 06/24/19948 Pantoprazole Sodium 40 Mg Tablet.dr, 40 MG PO DAILY, (Reported) Ropinirole HCl 0.5 Mg Tablet, 1 MG PO HS, (Reported) TAKE 2 (.5MG) TABS Ropinirole HCl 0.5 Mg Tablet, 0.5 MG PO DAILY, (Reported) Sennosides/Docusate Sodium 1 Each Tablet, 1 EA PO BID Prescribed by: OLIVE ISAAC on 06/24/19948 Topiramate 25 Mg Tablet, 25 MG PO HS, (Reported) Topiramate 50 Mg Tablet, 75 MG PO DAILY, (Reported) TAKE 1 & 1/2 OF 50MG TAB Tramadol HCl 50 Mg Tablet, 100 MG PO Q6H PRN for PAIN-MODERATE, (Reported) Past Ujhmxgn-Bjaxxi-Ircuvr Hx Past Med/Social Hx: Reviewed Nursing Past Med/Soc Hx, Reviewed and Corrections made Patient Social History Alcohol Use: Denies Use Recreational Drug Use: No Smoking Status: Never a Smoker 2nd Hand Smoke Exposure: No Recent Foreign Travel: No Contact w/Someone Who Travel: No Recent Infectious Disease Expo: Yes Recent Hopitalizations: No Immunizations Up To Date Date of Pneumonia Vaccine: Jul 29, 2017 Date of Influenza Vaccine: Jul 28, 2018 Seasonal Allergies Seasonal Allergies: No Past Medical History Surgeries: Yes (R CTR, espohageal ligation x2, Hernia, L RCR, L TKR, laparotomy, MRSA infec) Hysterectomy, Joint Replacement (b/l), Thyroidectomy Respiratory: No Cardiac: Yes (HX HEART CATH-STENT) Heart Attack, High Cholesterol, Hypertension Neurological: Yes Headaches /Migraines : No Sexually Transmitted Disease: No HIV/AIDS: No Genitourinary: Yes (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, STAGE 2-kidneys look good now ) Bladder Infection, Renal Failure Gastrointestinal: Yes (HX GI BLEED, zenkers syndrome-chokes easily, hx hep A) Gastroesophageal Reflux, Hepatitis Musculoskeletal: Yes (OSTEOARTHRITIS, BULGING DISCS) Arthritis, Chronic Back Pain Endocrine: Yes (partial thyroidectomy) Diabetes, Non-Insulin dep HEENT: Yes (GLASSES, UPPER DENTURES) Loss of Vision: Bilateral Cancer: Yes Breast Did You Recieve Any Treatments: Yes What Type of Treatment Did You: Radiation, Surgical Intervention Psychosocial: No Integumentary: No Blood Disorders: Yes (IRON DEFFICIENCY ANEMIA-GETS IRON INFUSIONS) Adverse Reaction/Blood Tranf: No (HAS HAD BLOOD WITH NO REACTION) Family Medical History Hypertension G8 BROTHER Not obtainable due to adoption 19 FATHER Hypertension (Brother) Review of Systems Time Seen by Provider: 15:32 Sepsis Event Evaluation Height, Weight, BMI Height: 5'4.00" Weight: 207lbs. 5.0oz. 94.820966us; 36.7 BMI Method:Stated Exam Exam Vital Signs Date Time Temp Pulse Resp B/P (MAP) Pulse Ox O2 Delivery O2 Flow Rate FiO2 06/18/19 09:06 94 Room Air 06/18/19 09:00 Nasal Cannula 2.00 06/18/19 07:47 93 120/69 (86) 06/18/19 06:18 97.8 81 16 107/64 (78) 94 Nasal Cannula 2.00 06/18/19 03:17 79 94 06/18/19 01:58 94 Nasal Cannula 0.50 06/17/19 22:30 96 Nasal Cannula 1.00 06/17/19 20:10 Nasal Cannula 2.00 06/17/19 18:49 94 Nasal Cannula 2.00 06/17/19 18:00 97.1 85 16 130/82 (98) 98 Nasal Cannula 2.00 I & O0 06/18/19 07:00 Intake Total 3150 ml Balance 3150 ml Height & Weight Height: 5'4.00" Weight: 207lbs. 5.0oz. 94.987061ly; 36.7 BMI Method:Stated General Appearance: No Apparent Distress, WD/WN, Chronically ill, Other (much improved) HEENT: PERRL/EOMI, Normal ENT Inspection, Pharynx Normal, Moist Mucous Membrane s Neck: Full Range of Motion, Normal Inspection, Non Tender, Supple Respiratory: Chest Non Tender, No Accessory Muscle Use, No Respiratory Distress, Crackles (LLL), Decreased Breath Sounds Cardiovascular: Regular Rate, Rhythm, No Edema, No Gallop, No JVD, No Murmur Peripheral Pulses: 2+ Dorsalis Pedis (R), 2+ Left Dors-Pedis (L), 2+ Radial Pulses (R), 2+ Radial Pulses (L) Extremity: Normal Capillary Refill, Normal Inspection, Normal Range of Motion (except right leg), Non Tender, No Calf Tenderness, No Pedal Edema Neurologic/Psychiatric: Alert, Oriented x3, No Motor/Sensory Deficits, shellfish bed worker II- XII Norm as Tested, Abnormal Gait, Depressed Affect, Disoriented (subtle) Skin: Normal Color, Warm/Dry Lymphatic: No Adenopathy Results Lab Laboratory Tests 06/17/19 05:10 Assessment/Plan Assessment/Plan LLL PNA - improving -CXR shows improvement. Acute bronchitis -Increase SVNs to QID with duoneb -Pulmicort BID -Add Mucinex Zenker's diverticulum Atelectasis with right diaphragm elevation -SVNs -IS -Increase activity as tolerated Anemia -Monitor CT scan: Consolidative mass like density in the left lower lobe which is new since 12/05/2018. This may represent pneumonia in appropriate clinical setting. Underlying neoplasm is not excluded, and short interval followup is recommended. LISA TOVAR DO Jun 18, 2019 15:30
--- NOTE | 2019-06-18 15:42 | Occupational Ther Daily Note ---
OT Current Status-Daily Note Subjective Pt alert, lying in bed. PT finishing up with pt. Pt agrees to therapy if she can lay in bed. Pt c/o pain with R knee and R LE. Mental Status/Objective Patient Orientation: Person, Place, Time, Situation Therapy Code Descriptions/Definitions Functional [place] Measure: 0=Not Assessed/NA 4=Minimal Assistance 1=Total Assistance 5=Supervision or Setup 2=Maximal Assistance 6=Modified [place] 3=Moderate Assistance 7=Complete [place] Attachments: IV, Polar Pack ADL-Treatment Therapy Code Descriptions/Definitions Functional [place] Measure: 0=Not Assessed/NA 4=Minimal Assistance 1=Total Assistance 5=Supervision or Setup 2=Maximal Assistance 6=Modified [place] 3=Moderate Assistance 7=Complete [place] Therapy Quality Codes: 6 Independent with activity with or without an assistive device 5 Patient requires set up or clean up by helper. Patient completes activity by themselves 4 Supervision or touching assist (CGA). [place] provide cues , steadying assist 3 The helper provides less than half the effort to complete the activity 2 The helper provides more than half the effort to complete the activity 1 Dependent. The helper does all the effort to complete an activity 7 Patient refused to complete or attempt activity 9 The patient did not perform the activity before the current illness or injury 88 Not attempted due to Medical conditions or safety concerns Other Treatment Pt given handout for UE theraband exercises. Skilled instruction given to pt for medium resistance theraband exercises to increase UE strength and activity tolerance for daily functional tasks. Pt required verbal cues for correct arm position to perform correct technique. 6 exercises completed with theraband, 3 sets 10 reps. Education and demonstration completed with medium resistance therapy sponge, 3 exercises 1 set 10 reps. After therapy, pt lying in bed with polar pack and CPM on R knee. Call light/phone in reach. All needs met in room. OT Short Term Goals Short Term Goals Time Frame: Jun 20, 2019 Eating(FIM): 6 Grooming(FIM): 5 Bathing(FIM): 4 Upper Body Dressing(FIM): 4 Lower Body Dressing(FIM): 4 Toileting(FIM): 4 Transfers (B,C,W/C) (FIM): 5 Toilet/Commode Transfer(FIM): 5 Shower Transfer(FIM): 4 Additional Short Term Goals: 1-Demonstrate ADL Tasks, 2-Verbalize Understanding, 3-ImproveStrength/Tay 1=Demonstrate adherence to instructed precautions during ADL tasks. 2=Patient will verbalize/demonstrate understanding of assistive devices/modifications for ADL. 3=Patient will improve strength/tolerance for activity to enable patient to perform ADL's. OT Scroll Shear Operator Goals Scroll Shear Operator Goals Time Frame: Jul 04, 2019 Eating (FIM): 6 Eating (QC): 6 Groomin Oral Hygiene (QC): 6 Bathing(FIM): 5 Shower/Bathe Self (QC): 5 Upper Body Dressing(FIM): 6 Upper Body Dressing (QC): 6 Lower Body Dressing(FIM): 5 Lower Body Dressing (QC): 5 On/Off Footwear (QC): 5 Toileting(FIM): 6 Toileting Hygiene (QC): 6 Toilet/Commode Transfer(FIM): 6 Toilet/Commode Transfer (QC): 6 Shower Transfer(FIM): 5 Additional Goals: 1-Demonstrate ADL Tasks, 2-Verbalize Understanding, 3- ImproveStrength/Tay 1=Demonstrate adherence to instructed precautions during ADL tasks. 2=Patient will verbalize/demonstrate understanding of assistive devices/modifications for ADL. 3=Patient will improve strength/tolerance for activity to enable patient to perform ADL's. OT Education/Plan Problem List/Assessment Assessment: Decreased Activ Tolerance, Decreased UE Strength, Impaired Self- Care Skills, Restricted Funct UE ROM Discharge Recommendations Plan/Recommendations: Continue POC Treatment Plan/Plan of Care Patient would benefit from OT for education, treatment and training to promote independence in ADL's, mobility, safety and/or upper extremity function for ADL's. Plan of Care: ADL Retraining, Functional Mobility, Group Exercise/Act as Ind, UE Funct Exercise/Act Treatment Duration: Jul 04, 2019 Frequency: At least 5 of 7 days/Wk (IRF) Estimated Hrs Per Day: 1.5 hours per day Agreement: Yes Rehab Potential: Fair Time/GCodes Start Time: 12:53 Stop Time: 13:18 Total Time Billed (hr/min): 25 Billed Treatment Time 1 visit-EX 2 (25 min) PORTER VICTORIA Jun 18, 2019 15:42
--- NOTE | 2019-06-18 16:13 | Diagnostic Imaging Report ---
PROCEDURE: US right lower extremity venous. TECHNIQUE: Multiple real-time grayscale images were obtained over the right lower extremity in various projections. Additional spectral analysis and color Doppler duplex images were also obtained. INDICATION: Pain and swelling. COMPARISON: June 20, 2018. FINDINGS: Normal flow, compression, and augmentation within the visualized deep venous structures of the bilateral lower extremities. IMPRESSION: No evidence of a deep venous thrombosis within the right lower extremity. Dictated by: Dictated on workstation # [id number]
[2019-06-18 17:24] VITALS: BP 156/74
--- NOTE | 2019-06-18 17:29 | Progress Note - Surgery ---
CHUCHO BARLOW,MED STUDENT 06/18/19 1729: Subjective Date Seen by a Provider: Jun 19, 2019 Time Seen by a Provider: 09:02 Subjective/Events-last exam Pt states she is feeling better today but continues to have a cough. She states she would like to continue taking Robitussin to help suppress her cough and that the mucinex she took yesterday did not help her symptoms. No other complaints. No family at bedside. Objective Exam Vital Signs Date Time Temp Pulse Resp B/P (MAP) Pulse Ox O2 Delivery O2 Flow Rate FiO2 06/18/19 09:06 94 Room Air 06/18/19 09:00 Nasal Cannula 2.00 06/18/19 07:47 93 120/69 (86) 06/18/19 06:18 97.8 81 16 107/64 (78) 94 Nasal Cannula 2.00 06/18/19 03:17 79 94 06/18/19 01:58 94 Nasal Cannula 0.50 06/17/19 22:30 96 Nasal Cannula 1.00 06/17/19 20:10 Nasal Cannula 2.00 06/17/19 18:49 94 Nasal Cannula 2.00 06/17/19 18:00 97.1 85 16 130/82 (98) 98 Nasal Cannula 2.00 I & O 06/18/19 07:00 Intake Total 3150 ml Balance 3150 ml Capillary Refill : General Appearance: No Apparent Distress, WD/WN, Chronically ill, Other (improved) HEENT: PERRL/EOMI, Pharynx Normal Neck: Normal Inspection; No Thyromegaly Respiratory: No Accessory Muscle Use, No Respiratory Distress Cardiovascular: Regular Rate, Rhythm Neurologic/Psychiatric: Alert, Oriented x3, No Motor/Sensory Deficits, Depressed Affect Skin: Normal Color, Warm/Dry Results Lab Laboratory Tests 06/17/19 21:18: Glucometer 184H 06/18/19 05:54: Glucometer 147H 06/18/19 11:12: Glucometer 158H Assessment/Plan Assessment/Plan Assessment/Plan Dysphagia -Oropharyngeal phase Nonproductive cough GI blood (positive fecal occult blood test) Switch mucinex to robitussin for antitussive. Continue swish and swallow. Pt is aware of foods that irritate her Zenker's and is avoiding them - surgery still not indicated at this time. Conferred with Dr. Barnes about positive fecal occult blood test and will perform diagnostic colonoscopy. Will continue to follow as needed. Clinical Quality Measures DVT/VTE Risk/Contraindication: Risk Factor Score Per Nursin RFS Level Per Nursing on Admit: 4+=Very High MIKE WHALEN DO 06/19/19 0944: Subjective Time Seen by a Provider: 09:02 Subjective/Events-last exam Pt thinks cough is due to Pneumonia. I explained that there are other causes for cough. She states cough not related to her eating. Assessment/Plan Assessment/Plan Assessment/Plan Med student saw pt yesterday and today, I only saw pt today. Plan to prep pt possibly saturday or saturday and do colonoscopy the following day. Supervisory-Addendum Brief Verification & Attestation Participated in pt care: history, MDM, physical Personally performed: exam, history, MDM Care discussed with: Medical Student Procedures: n/a Verification and Attestation of Medical Student E/M Service A medical student performed and documented this service in my presence. I reviewed and verified all information documented by the medical student and made modifications to such information, when appropriate. I personally performed the physical exam and medical decision making. Mike Whalen, Jun 19, 2019,09:43 CHUCHO BARLOW,MED STUDENT Jun 18, 2019 17:29 MIKE WHALEN DO Jun 19, 2019 09:44
--- NOTE | 2019-06-18 17:42 | Progress Note ---
Standard Progress Note Progress Notes/Assess & Plan Date Seen by a Provider: Jun 18, 2019 Time Seen by a Provider: 17:40 Progress/Assessment & Plan 68-year-old female admitted to rehabilitation unit following right knee replacement. Rapidly worsening anemia over the past 2-3 weeks. Serum iron studies showed iron low, TIBC low and ferritin level elevated consistent with anemia of chronic disease. She has chronic kidney disease stage 3-4. We will start her on erythropoietic stimulating agent (Aranesp) 40 g weekly. Check CBC tomorrow morning and if decreasing, she will need packed red blood cell transfusion. Fecal occult blood test positive indicating GI blood loss. Agree with surgical consult for endoscopy to identify a source of blood loss. Will follow patient with you. ASTRID WHYTE Jun 18, 2019 17:42
[2019-06-18] MEDS ORDERED: DARBEPOETIN 40 MCG/ML (ARANESP) HOSPITAL SC SCH (17:45)
[2019-06-18] MEDS ORDERED: RT-ALBUTEROL/IPRATROPIUM 3 ML (DUONEB) VIAL INH SCH (21:00)
[2019-06-18] MEDS: guaiFENesin (MUCINEX) 600 MG TAB PO SCH (21:19)
[2019-06-18] MEDS: rOPINIRole 1 MG (REQUIP) TABLET PO SCH (21:19)
[2019-06-19] MEDS ORDERED: CODEINE PO PRN ×2 (00:15→08:45)
[2019-06-19] MEDS ORDERED: CAFFEINE PO PRN ×2 (00:15→08:45)
[2019-06-19] MEDS ORDERED: ACETAMINOPHEN PO PRN ×2 (00:15→08:45)
[2019-06-19] MEDS ORDERED: BUTALBITAL PO PRN ×2 (00:15→08:45)
[2019-06-19] MEDS: ONDANSETRON 4 MG/2 ML (SDV) Z0FRAN IVP PRN (00:26)
[2019-06-19] MEDS: oxyCODONE/APAP 10/325MG (PERCOCET 10) TABLET PO PRN ×5 (03:40→22:59)
[2019-06-19 06:44] VITALS: BP 137/75
[2019-06-19] MEDS: HYDROXYCHLOROQUINE 200 MG (PLAQUENIL) TAB PO SCH ×2 (06:47→16:24)
[2019-06-19] MEDS: PANTOPRAZOLE 40 MG (PROTONIX) TAB PO SCH (06:47)
[2019-06-19] MEDS: methylPREDNISolone 40 MG/ML (Solu-MEDROL) VIAL IV SCH ×4 (06:47→23:09)
[2019-06-19] MEDS: inSUlin ASPART (NovoLOG) 1 UNIT/0.01 ML (CHARGE PER UNIT) SC SCH ×4 (06:47→20:57)
[2019-06-19 07:10] LABS: BASOPHILS % (AUTO) 0 % (0-10); EOSINOPHILS % (AUTO) 0 % (0-10); HEMATOCRIT 27 % (35-52); HEMOGLOBIN 8.3 G/DL (11.5-16.0); LYMPHOCYTES # (AUTO) 1.1 X 10^3 (1.0-4.0); LYMPHOCYTES % (AUTO) 11 % (12-44); MEAN CORPUSCULAR HEMOGLOBIN 31 PG (25-34); MEAN CORPUSCULAR HGB CONC 31 G/DL (32-36); MEAN CORPUSCULAR VOLUME 98 FL (80-99); MEAN PLATELET VOLUME 9.3 FL (7.4-10.4); MONOCYTES # (AUTO) 0.5 X 10^3 (0.0-1.0); MONOCYTES % (AUTO) 5 % (0-12); NEUTROPHILS # (AUTO) 8.4 X 10^3 (1.8-7.8); NEUTROPHILS % (AUTO) 84 % (42-75); PLATELET COUNT 446 10^3/uL (130-400); RED CELL DISTRIBUTION WIDTH 13.3 % (10.0-14.5)
[2019-06-19] MEDS ORDERED: PATIENT MAY USE OWN MED,SINGLE MED PO SCH (07:15)
[2019-06-19 07:34] LABS: ALBUMIN 3.2 GM/DL (3.2-4.5); BILIRUBIN,TOTAL 0.3 MG/DL (0.1-1.0); CALCIUM 8.3 MG/DL (8.5-10.1); CREATININE SERUM 1.41 MG/DL (0.60-1.30); POTASSIUM 4.1 MMOL/L (3.6-5.0); TOTAL PROTEIN 5.8 GM/DL (6.4-8.2)
[2019-06-19] MEDS: RT-ALBUTEROL/IPRATROPIUM 3 ML (DUONEB) VIAL INH SCH ×5 (07:40→19:05)
[2019-06-19] MEDS: RT-BUDESONIDE NEBS 0.5 MG/2ML (PULMICORT) AMP INH SCH ×2 (07:40→19:05)
[2019-06-19 08:00] VITALS: BP 137/73
--- NOTE | 2019-06-19 08:00 | NUR ---
STATES LEFT KNEE LESS PAINFUL AND LESS SWOLLEN. REFUSES MUCINEX BECAUSE IT "MUÑOZ MY THROAT". WANTS TO TAKE ROBITUSSIN FOR COUGH. STATES WAS AWAKE ALL NIGHT WITH COUGH.
[2019-06-19] MEDS: DULoxetine 30 MG (CYMBALTA) CAP PO SCH (08:36)
[2019-06-19] MEDS: GABAPENTIN 300 MG (NEURONTIN) CAP PO SCH ×3 (08:37→20:56)
[2019-06-19] MEDS: rOPINIRole 0.25 MG (REQUIP) TAB PO SCH (08:37)
[2019-06-19] MEDS: toPIRamate 25 MG (TOPAMAX) TAB PO SCH (08:37)
[2019-06-19] MEDS: LABETALOL 200 MG (NORMODYNE) TAB PO SCH ×2 (08:38→20:56)
[2019-06-19] MEDS: amLODIPine 10 MG (NORVASC) TAB PO SCH (08:38)
[2019-06-19] MEDS: FUROSEMIDE 40 MG (LASIX) TAB PO SCH (08:38)
--- NOTE | 2019-06-19 08:51 | Pulmonary Progress Note ---
Subjective Time Seen by a Provider: 13:46 Sepsis Event Evaluation Height, Weight, BMI Height: 5'4.00" Weight: 207lbs. 5.0oz. 94.239105eu; 36.7 BMI Method:Stated Exam Exam Vital Signs Date Time Temp Pulse Resp B/P (MAP) Pulse Ox O2 Delivery O2 Flow Rate FiO2 06/19/19 07:45 94 Room Air 06/19/19 07:40 94 Nasal Cannula 0.50 06/19/19 06:44 98.3 88 18 137/75 (95) 93 Nasal Cannula 1.00 06/18/19 20:26 91 06/18/19 20:21 94 Nasal Cannula 0.50 06/18/19 20:20 Nasal Cannula 2.00 06/18/19 17:24 98.7 89 18 156/74 (101) 95 Nasal Cannula 1.00 06/18/19 09:06 94 Room Air 06/18/19 09:00 Nasal Cannula 2.00 I & O 06/19/19 07:00 Intake Total 1450 ml Balance 1450 ml Height & Weight Height: 5'4.00" Weight: 207lbs. 5.0oz. 94.164504ty; 36.7 BMI Method:Stated General Appearance: No Apparent Distress, WD/WN, Chronically ill, Other (much i mproved) HEENT: PERRL/EOMI, Normal ENT Inspection, Pharynx Normal, Moist Mucous Membranes Neck: Full Range of Motion, Normal Inspection, Non Tender, Supple Respiratory: Chest Non Tender, No Accessory Muscle Use, No Respiratory Distres s, Crackles (LLL), Decreased Breath Sounds Cardiovascular: Regular Rate, Rhythm, No Edema, No Gallop, No JVD, No Murmur Peripheral Pulses: 2+ Dorsalis Pedis (R), 2+ Left Dors-Pedis (L), 2+ Radial Pulses (R), 2+ Radial Pulses (L) Extremity: Normal Capillary Refill, Normal Inspection, Normal Range of Motion (except right leg), Non Tender, No Calf Tenderness, No Pedal Edema Neurologic/Psychiatric: Alert, Oriented x3, No Motor/Sensory Deficits, logistical engineer II- XII Norm as Tested, Abnormal Gait, Depressed Affect, Disoriented (subtle) Skin: Normal Color, Warm/Dry Lymphatic: No Adenopathy Results Lab Laboratory Tests 06/19/19 06:55 Assessment/Plan Assessment/Plan LLL PNA - improving -CXR shows improvement. Acute bronchitis -Increase SVNs to QID with duoneb -Pulmicort BID -Add Mucinex Zenker's diverticulum Atelectasis with right diaphragm elevation -SVNs -IS -Increase activity as tolerated Anemia -Monitor CT scan: Consolidative mass like density in the left lower lobe which is new since 12/05/2018. This may represent pneumonia in appropriate clinical setting. Underlying neoplasm is not excluded, and short interval followup is recommended. LISA TOVAR DO Jun 19, 2019 08:51
[2019-06-19] MEDS: MAGIC MOUTHWASH (ADULT) PO SCH ×16 (09:00→20:55)
[2019-06-19] MEDS: guaiFENesin (MUCINEX) 600 MG TAB PO SCH ×2 (09:00→20:55)
[2019-06-19] MEDS: DOCUSATE SODIUM 100 MG (COLACE) CAP PO SCH ×2 (09:20→20:54)
[2019-06-19] MEDS: POLYETHYLENE GLYCOL 17 GM (MIRALAX) PACK PO SCH ×2 (09:21→20:55)
[2019-06-19] MEDS: SENNA W/DOCUSATE (SENOKOT S) TABLET PO SCH ×2 (09:21→20:56)
--- NOTE | 2019-06-19 09:33 | PM&R Progress Note ---
Subjective HPI/CC On Admission Date Seen by Provider: Jun 19, 2019 Time Seen by Provider: 09:00 Chief complaint: Debility following right total knee replacement complicated with pneumonia and elevated creatinine History of present illness: This is a 68-year-old white female clinic patient of [facility] who is admitted to inpatient rehab following a right total knee arthroplasty by Dr. Meneses there was originally uncomplicated but then became complicated with a postop pneumonia. I am unable to get any reli able details from the patient since they are very vague complaints and she reports that she still feels loopy from the pain medication given today. I do reviewed the prior records from Dr. Crum and it appears that she was a poor historian to begin with and having difficulty motivating to participating therapy. At this current time patient is reporting a sore throat of which the nurse was given no reported that that she complained of it upstairs on fourth floor. Her Levaquin will be maintained every other day renal dosed due to her multiple antibiotic allergies. Her baseline creatinine is 1.7. She does see nephrology on a regular basis but unable to tell me the name of that doctor. Mann samuel is really unable to tell me any of her doctors names except for Lola Benson who she sees a [facility]. She remained on DVT prophylaxis of heparin since postoperative but venous Doppler ultrasound was ordered for thorough medical care evaluation but the lower extremities do not appear to be edematous or have any type of pain on the calf muscle. We will try to be judicious regarding pain medication administration in order to prevent oversedation. We will inquire further when she is less drowsy regarding her prior level of functioning. Subjective/Events-last exam Coughing a lot and once her Robitussin-DM back Left knee pain is improved Hemoglobin 8.3 no need for transfusion Creatinine improved at 1.[address] Chacko consultation for anemia Hemoccult-positive and I did update Dr. Whalen regarding this fact that she will need a scope eventually whether that be during this hospital stay or at discharge IV steroids are tolerated Nebulizer treatments are maintained Participating in all therapy Overall feels like she is improving Venous Doppler was negative for DVT of the right leg Check meds and labs Conferred with RN santos Reviewed therapy notes Review of Systems General: Fatigue Pulmonary: Dyspnea, Cough Objective Exam Vital Signs Vital Signs Date Time Temp Pulse Resp B/P (MAP) Pulse Ox O2 Delivery O2 Flow Rate FiO2 8/30/19 14:47 93 Room Air 06/19/19 07:40 0.50 06/19/19 06:44 98.3 88 18 137/75 (95) Capillary Refill : General Appearance: No Apparent Distress, WD/WN, Chronically ill, Other (improved) HEENT: PERRL/EOMI, Pharynx Normal Neck: Full Range of Motion, Normal Inspection, Non Tender, Supple; No Thyromegaly Respiratory: Chest Non Tender, No Accessory Muscle Use, No Respiratory Distress, Crackles (LLL), Wheezing Cardiovascular: Regular Rate, Rhythm Gastrointestinal: Normal Bowel Sounds, No Organomegaly, No Pulsatile Mass, Non Tender, Soft Back: Normal Inspection, No CVA Tenderness, No Vertebral Tenderness Extremity: Normal Capillary Refill, Normal Inspection, Non Tender, Pedal Edema, Other (decreased ROM right leg) Neurologic/Psychiatric: Alert, Oriented x3, No Motor/Sensory Deficits, Depressed Affect Skin: Normal Color, Warm/Dry Results/Procedures Lab Laboratory Tests 06/19/19 06:55 Patient resulted labs reviewed. FIM Transfers Therapy Code Descriptions/Definitions Functional [place] Measure: 0=Not Assessed/NA 4=Minimal Assistance 1=Total Assistance 5=Supervision or Setup 2=Maximal Assistance 6=Modified [place] 3=Moderate Assistance 7=Complete [place] Therapy Quality Codes: 6 Independent with activity with or without an assistive device 5 Patient requires set up or clean up by helper. Patient completes activity by themselves 4 Supervision or touching assist (CGA). [place] provide cues , steadying assist 3 The helper provides less than half the effort to complete the activity 2 The helper provides more than half the effort to complete the activity 1 Dependent. The helper does all the effort to complete an activity 7 Patient refused to complete or attempt activity 9 The patient did not perform the activity before the current illness or injury 88 Not attempted due to Medical conditions or safety concerns Transfers (B, C, W/C) (FIM): 5 Scootin Rollin Roll Left to Right (QC): 4 Supine to/from Sit: 5 (with HOB elevated, min use of bedrail) Sit to/from Stand: 5 (good hand placement and safety techniques) Sit to Lying (QC): 3 Sit to Stand (QC): 3 Chair/Hwh-kx-Nviqa Xfer(QC): 3 Car Transfer (QC): 3 Gait Training Does the Patient Walk?: Yes Gait (FIM): 5 Distance (FIM): 3=150 ft Distance: 115 x2 Walk 10 feet (QC): 4 Walk 50 ft with 2 Turns(QC): 4 Walk 150 ft (QC): 88 (unable to walk this distanc.e ) Walking 10ft/uneven surface-QC: 88 (unsafe to attempt at this time due to fall risk) Gait Level of Assist: 5 (SBA and verb inst/encouragement provided) Gait Persons Needed: 1 Gait Assistive Device: FWW Wheelchair Training Does the Pt Use a Wheelchair?: No Stair Training Stairs (FIM): 0 1 Step (curb) (QC): 1 4 Steps (QC): 88 12 Steps (QC): 88 Balance Picking up an Object (QC): 88 Mental Status/Objective Comprehension: 5 Expression: 5 Social Interaction: 4 Problem Solvin Memory: 4 ADL-Treatment Feedin (Set up) Eating (QC): 5 Groomin Oral Hygiene (QC): 4 Bathin Shower/Bathe Self (QC): 3 Upper Extremity Dressin Upper Body Dressing (QC): 5 Lower Extremity Dressin (CGA) Lower Body Dressing (QC): 4 On/Off Footwear (QC): 2 Toiletin Toileting Hygiene (QC): 4 Toilet/Commode Transfer: 5 Toilet Transfer (QC): 4 Shower: 4 Assessment/Plan Assessment and Plan Assess & Plan/Chief Complaint Plan: IRF protocol Zenker's diverticulum consultation with Dr Whalen and his management is appreciated Pain control but limit due to oversedation propensity Fall risk when drowsy Home meds Reviewed notes Consult Dr Joaquin for iron def anemia Complete abx Monitor hgb Cognition deficit noted Occult + and Dr Whalen updated and will need endoscopy Doppler negative for DVT Robitussin DM for cough (1) S/P total knee arthroplasty Status: Chronic (2) Acute kidney injury superimposed on chronic kidney disease Status: Acute (3) Type 2 diabetes mellitus Status: Chronic (4) Restless leg syndrome Status: Chronic (5) Essential hypertension Status: Chronic (6) Pleuritic chest pain Status: Acute (7) Coronary artery disease Status: Chronic (8) Left lower lobe pneumonia Status: Acute Qualifiers: Pneumonia type: due to unspecified organism Qualified Codes: J18.1 - Lobar pneumonia, unspecified organism (9) Drowsiness Status: Acute (10) Constipation Status: Acute Qualifiers: Constipation type: slow transit constipation Qualified Codes: K59.01 - Slow transit constipation (11) Sepsis due to pneumonia Status: Acute (12) Normocytic anemia Status: Acute (13) Hyperlipidemia Status: Chronic Qualifiers: Hyperlipidemia type: unspecified Qualified Codes: E78.5 - Hyperlipidemia, unspecified (14) Occult blood positive stool OLIVE ISAAC DO Jun 19, 2019 09:33
--- NOTE | 2019-06-19 10:13 | Occupational Ther Daily Note ---
OT Current Status-Daily Note Subjective Pt in bed, agrees to therapy. Reports 7/10 pain in right knee. Mental Status/Objective Therapy Code Descriptions/Definitions Functional [place] Measure: 0=Not Assessed/NA 4=Minimal Assistance 1=Total Assistance 5=Supervision or Setup 2=Maximal Assistance 6=Modified [place] 3=Moderate Assistance 7=Complete [place] Attachments: Oxygen ADL-Treatment Pt supine to sit using grab bars. Gait to restroom with FWW. Transfer to walk in shower with SBA using grab bars for balance and safety. Pt doffed clothing without assist. Seated bathing completed using hand held shower. Pt able to wash/dry all areas with SBA. Don pullover shirt with set up. Pt able to thread bilateral LE into underwear and pants, stood with supervision for balance. Pt donned sandals with SBA. Stood at sink to comb hair with supervision. Therapy Code Descriptions/Definitions Functional [place] Measure: 0=Not Assessed/NA 4=Minimal Assistance 1=Total Assistance 5=Supervision or Setup 2=Maximal Assistance 6=Modified [place] 3=Moderate Assistance 7=Complete [place] Therapy Quality Codes: 6 Independent with activity with or without an assistive device 5 Patient requires set up or clean up by helper. Patient completes activity by themselves 4 Supervision or touching assist (CGA). [place] provide cues , steadying assist 3 The helper provides less than half the effort to complete the activity 2 The helper provides more than half the effort to complete the activity 1 Dependent. The helper does all the effort to complete an activity 7 Patient refused to complete or attempt activity 9 The patient did not perform the activity before the current illness or injury 88 Not attempted due to Medical conditions or safety concerns Grooming (FIM): 5 Bathing (FIM): 5 Shower/Bathe Self (QC): 4 Upper Body (FIM): 5 Upper Body Dressing (QC): 5 Lower Body Dressing (FIM): 5 Lower Body Dressing (QC): 4 Shower Transfer(FIM): 5 Other Treatment Gait to therapy gym with FWW. Arm bike [id number] to increase overall strength and activity tolerance needed for functional task completion. Pt completed task with minimal resistance and slow pace. No rest breaks needed. Pt returned to room, requested to use restroom. Transfer to toilet with SBA. Pt sitting in on toilet with call light in reach and nurse aide in room after session OT Short Term Goals Short Term Goals Time Frame: Jun 20, 2019 Eating(FIM): 6 Grooming(FIM): 5 Bathing(FIM): 4 Upper Body Dressing(FIM): 4 Lower Body Dressing(FIM): 4 Toileting(FIM): 4 Transfers (B,C,W/C) (FIM): 5 Toilet/Commode Transfer(FIM): 5 Shower Transfer(FIM): 4 Additional Short Term Goals: 1-Demonstrate ADL Tasks, 2-Verbalize Understanding, 3-ImproveStrength/Tay 1=Demonstrate adherence to instructed precautions during ADL tasks. 2=Patient will verbalize/demonstrate understanding of assistive devices/modifications for ADL. 3=Patient will improve strength/tolerance for activity to enable patient to perform ADL's. OT Target Protection Specialist Goals Half-Way Goals Time Frame: Jul 04, 2019 Eating (FIM): 6 Eating (QC): 6 Groomin Oral Hygiene (QC): 6 Bathing(FIM): 5 Shower/Bathe Self (QC): 5 Upper Body Dressing(FIM): 6 Upper Body Dressing (QC): 6 Lower Body Dressing(FIM): 5 Lower Body Dressing (QC): 5 On/Off Footwear (QC): 5 Toileting(FIM): 6 Toileting Hygiene (QC): 6 Toilet/Commode Transfer(FIM): 6 Toilet/Commode Transfer (QC): 6 Shower Transfer(FIM): 5 Additional Goals: 1-Demonstrate ADL Tasks, 2-Verbalize Understanding, 3- ImproveStrength/Tay 1=Demonstrate adherence to instructed precautions during ADL tasks. 2=Patient will verbalize/demonstrate understanding of assistive devices/modifica tions for ADL. 3=Patient will improve strength/tolerance for activity to enable patient to perform ADL's. OT Education/Plan Discharge Recommendations Plan/Recommendations: Continue POC Treatment Plan/Plan of Care Patient would benefit from OT for education, treatment and training to promote independence in ADL's, mobility, safety and/or upper extremity function for ADL's. Plan of Care: ADL Retraining, Functional Mobility, Group Exercise/Act as Ind, UE Funct Exercise/Act Treatment Duration: Jul 04, 2019 Frequency: At least 5 of 7 days/Wk (IRF) Estimated Hrs Per Day: 1.5 hours per day Agreement: Yes Rehab Potential: Fair Time/GCodes Start Time: 08:00 Stop Time: 09:00 Total Time Billed (hr/min): 60 Billed Treatment Time 1 visit, ADLx3(45minutes), EX(15minutes) VIOLA LONG OT Jun 19, 2019 10:13
--- NOTE | 2019-06-19 10:17 | Physical Therapy Daily Note ---
PT Daily Note-Current Subjective Pt. agrees to Rx. States she feels she had made good progress and would really like to be off the O2. Pain Location: No Pain Reported Mental Status Patient Orientation: Normal For Age Transfers Therapy Code Descriptions/Definitions Functional [place] Measure: 0=Not Assessed/NA 4=Minimal Assistance 1=Total Assistance 5=Supervision or Setup 2=Maximal Assistance 6=Modified [place] 3=Moderate Assistance 7=Complete [place] Therapy Quality Codes: 6 Independent with activity with or without an assistive device 5 Patient requires set up or clean up by helper. Patient completes activity by themselves 4 Supervision or touching assist (CGA). [place] provide cues , steadying assist 3 The helper provides less than half the effort to complete the activity 2 The helper provides more than half the effort to complete the activity 1 Dependent. The helper does all the effort to complete an activity 7 Patient refused to complete or attempt activity 9 The patient did not perform the activity before the current illness or injury 88 Not attempted due to Medical conditions or safety concerns Transfers (B, C, W/C) (FIM): 6 Scootin Rollin Supine to/from Sit: 6 Sit to/from Stand: 6 Bed to/from Chair: 6 Weight Bearing Right Lower Extremity: Right Full Weight Bearing Left Lower Extremity: Left Full Weight Bearing Gait Training Does the Patient Walk?: Yes Gait (FIM): 5 Distance (FIM): 3=150 ft (150x2) Gait Level of Assist: 5 Gait Persons Needed: 1 Gait Assistive Device: FWW instruction for heel strike and extension at knee as well as to use walker until she gets completely to destination, as pt. observed setting walker to side when she still has 5-6 ft to go Exercises Supine Ex: Ankle pumps, Quad Set, Glut sets, Heel Slides, Short Arc Quads, Scooting, Straight leg raise Supine Reps: 20 Seated Therapy Exercises: Ankle pumps, Sit to stand, Long arc quads Seated Reps: 15 NuStep Minutes: 10 NuStep Workload: 5 Treatments Nustep utilized for emphasis on ext and flexion with pt. having control with both , monitored by INTERNET MARKETING DIRECTOR with increased knee flexion to 80 deg Assessment Current Status: Good Progress PT Short Term Goals Short Term Goals Time Frame: Jun 26, 2019 Transfers (B,C,W/C) (FIM): 5 Gait (FIM): 4 PT Laminating Press Operator Goals Laminating Press Operator Goals PT Snf Goals Time Frame: Jul 10, 2019 Transfers (B,C,W/C) (FIM): 7 Sit to Lying (QC): 6 Lying-Sitting on Side/Bed(QC): 6 Sit to Stand (QC): 6 Rollin Roll Left to Right (QC): 6 Chair/Jak-ry-[place]ihba Xfer(QC): 6 Car Transfer (QC): 6 Does the Patient Walk: Yes Gait (FIM): 6 Gait distance (FIM): 3=150 ft Walk 10 feet (QC): 6 Walk 10ft-Uneven Surface(QC): 6 Walk 50ft with 2 Turns (QC): 6 Walk 150 ft (QC): 6 Gait Assistive Device: FWW Does the Pt use WC or Scooter?: No Stairs (FIM): 5 # of Steps: 4 1 Step (curb) (QC): 6 4 Steps (QC): 6 12 Steps (QC): 9 Picking up an Object (QC): 4 PT Plan Treatment/Plan Treatment Plan: Continue Plan of Care Treatment Plan: Bed Mobility, Education, Functional Activity Tay, Functional Strength, Group Therapy, Gait, Safety, Therapeutic Exercise, Transfers Treatment Duration: Jul 10, 2019 Frequency: At least 5 of 7 days/Wk (IRF) Estimated Hrs Per Day: 1.5 hours per day Patient and/or Family Agrees t: Yes Safety Risks/Education Patient Education: Gait Training, Transfer Techniques, Correct Positioning, Dis ease Process, Safety Issues Teaching Recipient: Patient Teaching Methods: Demonstration, Discussion Response to Teaching: Verbalize Understanding, Return Demonstration, Reinforcement Needed Time/GCodes Time In: 930 Time Out: 1015 Total Billed Treatment Time: 45 Total Billed Treatment 1,GT20m,EX25m NILS TRAN INTERNET MARKETING DIRECTOR Jun 19, 2019 10:17
[2019-06-19] MEDS: guaiFENesin/DM (ROBITUSSIN DM) 10 ML UDC PO PRN ×3 (10:20→23:13)
[2019-06-19] MEDS: BRIMONIDINE 0.2% (ALPHAGAN) OPHTH SOLN 5 ML BTL OU SCH ×3 (10:21→21:03)
--- NOTE | 2019-06-19 10:53 | NUR ---
provided prayer and Communion.
--- NOTE | 2019-06-19 10:56 | Speech Therapy Daily Note ---
Speech Daily Progress Note Subjective Date Seen by Provider: Jun 19, 2019 Time Seen by Provider: 00:30 The patient was c/o still having her cough and her cough syrup had been discontinued by mistake. Assessment Assessment Current Status: Good Progress Treatment Plan Continue Plan of Care Communication Comprehension: 5 Expression: 5 Social Cognition Social Interaction: 4 Problem Solvin Memory: 4 Speech Short Term Goals Short Term Goals Short Term Goals 1) The patient will complete memory tasks related to her daily needs at 90% or greater with minimal cues. 2) The patient will complete problem solving tasks related to her daily needs at 90% or greater with minimal cues. 3) The patient will complete safety awareness tasks related to her daily needs at 90% or greater with minimal cues. Speech Channel Layer Goals Channel Layer Goals The patient will improve safety awareness and independence in order to safely return home. Speech-Plan Patient/Family Goals Patient/Family Goals: The patient plans on returning home post rehab. She has family near by for assistance as needed. Treatment Plan Speech Therapy Treatment Plan: Continue Plan of Care The patient is progressing well with cognitive level of function. Treatment Duration: Jun 26, 2019 Frequency: 5 times per week Estimated Hrs Per Day: .5 hour per day Rehab Potential: Fair Barriers to Learning: Patient has cognitive deficits, however these appear to be resolving. Pt/Family Agrees to Plan: Yes Safety Risks/Education Teaching Recipient: Patient Teaching Methods: Demonstration, Discussion Response to Teaching: Verbalize Understanding, Return Demonstration Education Topics Provided: Continued safety within her room. Time Speech Therapy Time In: 09:00 Speech Therapy Time Out: 09:30 Total Billed Time: 30 Billed Treatment Time [address] Jun 19, 2019 10:56
--- NOTE | 2019-06-19 11:00 | NUR ---
DR. LIAO SAW PATIENT AND PATIENT INFORMED OF PLAN FOR COLONOSCOPY ON SATURDAY. HAS BEEN TITRATED TO ROOM AIR.
--- NOTE | 2019-06-19 12:22 | Cardiology Progress Note ---
Subjective Date Seen by Provider: Jun 19, 2019 Time Seen by Provider: 12:22 Subjective/Events-last exam patient is in bed, feeling better, her leg is better. Having mild cough Review of Systems General: No Chills, No Night Sweats, No Fatigue, No Malaise, No Appetite, No Other HEENT: No Head Aches, No Visual Changes, No Eye Pain, No Ear Pain, No Dysphasia, No Sinus Congestion, No Post Nasal Drip, No Sore Throat, No Other Pulmonary: No Dyspnea; Cough; No Pleuritic Chest Pain, No Other Cardiovascular: No: Chest Pain, Palpitations, Orthopnea, Paroxysmal Noc. Dyspnea, Edema, Lt Headedness, Other Objective-Cardiology Exam Last Set of Vital Signs Vital Signs 06/19/19 06/19/19 06/19/19 06:44 07:40 07:45 Temp 98.3 Pulse 88 Resp 18 B/P (MAP) 137/75 (95) Pulse Ox 94 O2 Delivery Room Air O2 Flow Rate 0.50 Capillary Refill : I&O Intake and Output 06/19/19 00:00 Intake Total 1850 ml Balance 1850 ml Intake Oral 1850 ml # Voids 10 # Bowel Movements 1 General: Alert, Oriented X3, Cooperative HEENT: Atraumatic, PERRLA Neck: Supple, No JVD, No Thyromegaly Lungs: Clear to Auscultation, Normal Air Movement Heart: Regular Rate, Normal S1, Normal S2, No Murmurs Abdomen: Normal Bowel Sounds, Soft, No Tenderness, No Hepatosplenomegaly, No Masses Extremities: No Cyanosis, Normal Pulses, Other (right leg 2+ edemaTenderness) Skin: No Rashes, No Breakdown, No Significant Lesion Neuro: Normal Gait, Normal Speech, Strength at 5/5 X4 Ext, Normal Tone, S ensation Intact Psych/Mental Status: Mental Status NL, Mood NL Results Lab Laboratory Tests 06/19/19 06:55 A/P-Cardiology Admission Diagnosis chest pain CAD dyspnea HTN Assessment/Plan Chest pain, nonspecific etiology. No evidence of acute coronary syndrome. Low probability VQ scan for PE on 06/13/19. Denies any further episode or chest pain, continue to monitor Coronary artery disease, history of stent to the right coronary artery using 3.5 time 12 mm Ion stent done in 2009, last stress test was done in November 2018 showing no significant ischemia or infarction. Pleuritic chest pain, CT scan of the chest suggestive of left mass versus pneumonia, receiving antibiotics. Managed by Dr. Garcia. Shortness of breath, acute respiratory insufficiency, improved at this time. Continue to monitor Anemia, monitor H&H, aspirin was discontinued, Hemoccult +. Management per Dr. 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 Continue to monitor Status post right total knee arthroplasty done on June 09, 2019, recovering slowly, receiving physical therapy. Complaining of increased right leg pain, scheduled for RLE venous duplex later today. Hypertension, blood pressure is better controlled. Monitor blood pressure Hyperlipidemia, continue to monitor lipids Diabetes mellitus, followed and managed by primary care physician History of restless leg syndrome Clinical Quality Measures DVT/VTE Risk/Contraindication: Risk Factor Score Per Nursin RFS Level Per Nursing on Admit: 4+=Very High ABBI GUTIERREZ MD Jun 19, 2019 12:22
[2019-06-19] MEDS: CATHETER FLUSH 10 ML SYR IV SCH ×2 (14:20→21:05)
--- NOTE | 2019-06-19 14:40 | Therapy Group Daily Note ---
Therapy Daily Group Note Patient Education Topic Home Safety, Fall Prevention, Home Safety, Exercises Exercises LE Seated Exercise, UE Exercise Session Ratio (pt:therapist): 4:1 Goal of Session: Education on ARU Expectations, Home Safety Strategies, UE/LE Strengthing Goal Met for this Session: Yes Pt Benefit of Group: Contributions to Others, F/U Use of Strategies @Home, Increased Functional Safety, Increased Functional Strength, Recognition of Peers, Socialization Other/Notes Each patient participated in group therapy in the common area of rehab. Each patient ambulated or was transported into a seated comanche with the other patients. Each patient had to introduce themselves and answer a question involving memory and recall. Patients then played a home safety jeopardy game with UE and LE exercises at different times. Patients were encouraged to participate with others during the answer time and exercises. Afterward, each patient ambulated or was transported back to their room and placed in bed or recliner with nurse call, phone, tray. Patient benefitted from this group by knowing more about home safety to decrease risk of falling and injury at home. Start Time: 13:00 Stop Time: 14:15 Total Billed Treatment Time: 75 Total Billed Treatment 1 visit GRP 75' VIOLET GONZALES PT Jun 19, 2019 14:39
[2019-06-19 17:03] VITALS: BP 150/68
[2019-06-19] MEDS: CATHETER FLUSH 10 ML SYR IV PRN (18:01)
[2019-06-19 20:45] VITALS: BP 169/72
[2019-06-19] MEDS: rOPINIRole 1 MG (REQUIP) TABLET PO SCH (20:56)
[2019-06-20] MEDS: oxyCODONE/APAP 10/325MG (PERCOCET 10) TABLET PO PRN ×5 (03:25→21:16)
[2019-06-20] MEDS: guaiFENesin/DM (ROBITUSSIN DM) 10 ML UDC PO PRN ×4 (03:25→18:44)
[2019-06-20 05:46] VITALS: BP 159/74
[2019-06-20] MEDS: CATHETER FLUSH 10 ML SYR IV SCH ×3 (06:04→21:15)
[2019-06-20] MEDS: PANTOPRAZOLE 40 MG (PROTONIX) TAB PO SCH (06:05)
[2019-06-20] MEDS: inSUlin ASPART (NovoLOG) 1 UNIT/0.01 ML (CHARGE PER UNIT) SC SCH ×4 (06:05→21:18)
[2019-06-20] MEDS: methylPREDNISolone 40 MG/ML (Solu-MEDROL) VIAL IV SCH ×2 (06:05→21:15)
[2019-06-20] MEDS: HYDROXYCHLOROQUINE 200 MG (PLAQUENIL) TAB PO SCH ×2 (06:05→17:00)
--- NOTE | 2019-06-20 07:30 | NUR ---
RT entered the patients room and she said I am eating; she doesn't want tx until she is done eating
[2019-06-20] MEDS: RT-ALBUTEROL/IPRATROPIUM 3 ML (DUONEB) VIAL INH SCH ×4 (07:48→21:46)
[2019-06-20] MEDS: RT-BUDESONIDE NEBS 0.5 MG/2ML (PULMICORT) AMP INH SCH ×2 (07:48→21:46)
[2019-06-20 08:00] VITALS: BP 145/72
[2019-06-20] MEDS: toPIRamate 25 MG (TOPAMAX) TAB PO SCH (08:30)
[2019-06-20] MEDS: GABAPENTIN 300 MG (NEURONTIN) CAP PO SCH ×3 (08:31→21:15)
[2019-06-20] MEDS: DULoxetine 30 MG (CYMBALTA) CAP PO SCH (08:31)
[2019-06-20] MEDS: rOPINIRole 0.25 MG (REQUIP) TAB PO SCH (08:31)
[2019-06-20] MEDS: LABETALOL 200 MG (NORMODYNE) TAB PO SCH ×2 (08:31→21:15)
[2019-06-20] MEDS: amLODIPine 10 MG (NORVASC) TAB PO SCH (08:31)
[2019-06-20] MEDS: FUROSEMIDE 40 MG (LASIX) TAB PO SCH (08:31)
[2019-06-20] MEDS: BRIMONIDINE 0.2% (ALPHAGAN) OPHTH SOLN 5 ML BTL OU SCH ×3 (08:35→21:22)
[2019-06-20] MEDS: POLYETHYLENE GLYCOL 17 GM (MIRALAX) PACK PO SCH ×2 (08:35→21:17)
[2019-06-20] MEDS: DOCUSATE SODIUM 100 MG (COLACE) CAP PO SCH ×2 (08:35→21:17)
[2019-06-20] MEDS: guaiFENesin (MUCINEX) 600 MG TAB PO SCH ×2 (08:35→21:22)
[2019-06-20] MEDS: MAGIC MOUTHWASH (ADULT) PO SCH ×16 (08:35→21:17)
[2019-06-20] MEDS: SENNA W/DOCUSATE (SENOKOT S) TABLET PO SCH ×2 (08:35→21:17)
--- NOTE | 2019-06-20 10:30 | NUR ---
DR. ISAAC INFORMED PATIENT'S REQUEST FOR A MAMMOGRAM. STATES "MY RIGHT BREAST HAS FELT LARGER THAN LEFT X 3 MONTHS". VOICE IS HOARSE FROM COUGHING. STATES ROBITUSSIN COUGH SYRUP HELPS. BLOOD SUGARS HAVE BEEN > 300 AND SOLUMEDROL DECREASED TO EVERY 12 HOURS.
--- NOTE | 2019-06-20 10:38 | PM&R Progress Note ---
Subjective HPI/CC On Admission Date Seen by Provider: Jun 20, 2019 Time Seen by Provider: 10:45 Chief complaint: Debility following right total knee replacement complicated with pneumonia and elevated creatinine History of present illness: This is a 68-year-old white female clinic patient of [facility] who is admitted to inpatient rehab following a right total knee arthroplasty by Dr. Meneses there was originally uncomplicated but then became complicated with a postop pneumonia. I am unable to get any reliable details from the patient since they are very vague complaints and she reports that she still feels loopy from the pain medication given today. I do reviewed the prior records from Dr. Crum and it appears that she was a poor historian to begin with and having difficulty motivating to participating therapy. At this current time patient is reporting a sore throat of which the nurse was given no reported that that she complained of it upstairs on fourth floor. Her Levaquin will be maintained every other day renal dosed due to her multiple antibiotic allergies. Her baseline creatinine is 1.7. She does see nephrology on a regular basis but unable to tell me the name of that doctor. She is really unable to tell me any of her doctors names except for Lola Benson who she sees a [facility]. She remained on DVT prophylaxis of heparin since postoperative but venous Doppler ultrasound was ordered for [facility] medical care evaluation but the lower extremities do not appear to be edematous or have any type of pain on the calf muscle. We will try to be judicious regarding pain medication administration in order to prevent oversedation. We will inquire further when she is less drowsy regarding her prior level of functioning. Subjective/Events-last exam Coughing is improved Left knee pain is improved Hemoglobin 8.3 no need for transfusion as updated to the patient yesterday Creatinine improved at 1.4 on lab check yesterday Appreciate Dr. Chacko consultation for anemia and she has appreciated his expertise also Colonoscopy set for Saturday by Dr Whalen IV steroids are tolerated but causing increased sugar so will decrease the dose to Q12hrs Nebulizer treatments are maintained and helping her Participating in all therapy Overall feels like she is improving Venous Doppler was negative for DVT of the right leg done 2 days ago Weaned off O2 now Needs mammogram due to left breast larger than the right but no mass Check meds and labs Conferred with RN santos Reviewed therapy notes Review of Systems General: Fatigue Pulmonary: Dyspnea, Cough Musculoskeletal: leg pain Objective Exam Vital Signs Vital Signs Date Time Temp Pulse Resp B/P (MAP) Pulse Ox O2 Delivery O2 Flow Rate FiO2 06/20/19 17:58 Room Air 06/20/19 16:06 97.2 82 16 129/72 (91) 92 06/19/19 07:40 0.50 Capillary Refill : General Appearance: No Apparent Distress, WD/WN, Chronically ill, Other (improved) HEENT: PERRL/EOMI, Pharynx Normal Neck: Full Range of Motion, Normal Inspection, Non Tender, Supple; No Thyromegaly Respiratory: Chest Non Tender, No Accessory Muscle Use, No Respiratory Distress, Crackles (LLL), Wheezing Cardiovascular: Regular Rate, Rhythm Gastrointestinal: Normal Bowel Sounds, No Organomegaly, No Pulsatile Mass, Non Tender, Soft Back: Normal Inspection, No CVA Tenderness, No Vertebral Tenderness Extremity: Normal Capillary Refill, Normal Inspection, Non Tender, Pedal Edema, Other (decreased ROM right leg) Neurologic/Psychiatric: Alert, Oriented x3, No Motor/Sensory Deficits, Depressed Affect Skin: Normal Color, Warm/Dry Results/Procedures Lab Patient resulted labs reviewed. FIM Transfers Therapy Code Descriptions/Definitions Functional [place] Measure: 0=Not Assessed/NA 4=Minimal Assistance 1=Total Assistance 5=Supervision or Setup 2=Maximal Assistance 6=Modified [place] 3=Moderate Assistance 7=Complete [place] Therapy Quality Codes: 6 Independent with activity with or without an assistive device 5 Patient requires set up or clean up by helper. Patient completes activity by themselves 4 Supervision or touching assist (CGA). [place] provide cues , steadying assist 3 The helper provides less than half the effort to complete the activity 2 The helper provides more than half the effort to complete the activity 1 Dependent. The helper does all the effort to complete an activity 7 Patient refused to complete or attempt activity 9 The patient did not perform the activity before the current illness or injury 88 Not attempted due to Medical conditions or safety concerns Transfers (B, C, W/C) (FIM): 6 Scootin Rollin Roll Left to Right (QC): 4 Supine to/from Sit: 6 Sit to/from Stand: 6 Sit to Lying (QC): 3 Sit to Stand (QC): 3 Chair/Dmt-kc-Qynar Xfer(QC): 3 Bed to/from Chair: 6 Car Transfer (QC): 3 Gait Training Does the Patient Walk?: Yes Gait (FIM): 5 Distance (FIM): 3=150 ft (150x2) Distance: 115 x2 Walk 10 feet (QC): 4 Walk 50 ft with 2 Turns(QC): 4 Walk 150 ft (QC): 88 (unable to walk this distanc.e ) Walking 10ft/uneven surface-QC: 88 (unsafe to attempt at this time due to fall risk) Gait Level of Assist: 5 Gait Persons Needed: 1 Gait Assistive Device: FWW Wheelchair Training Does the Pt Use a Wheelchair?: No Stair Training Stairs (FIM): 0 1 Step (curb) (QC): 1 4 Steps (QC): 88 12 Steps (QC): 88 Balance Picking up an Object (QC): 88 Mental Status/Objective Comprehension: 5 Expression: 5 Social Interaction: 4 Problem Solvin Memory: 4 ADL-Treatment Feedin (Set up) Eating (QC): 5 Groomin Oral Hygiene (QC): 4 Bathin Shower/Bathe Self (QC): 4 Upper Extremity Dressin Upper Body Dressing (QC): 5 Lower Extremity Dressin Lower Body Dressing (QC): 4 On/Off Footwear (QC): 2 Toiletin Toileting Hygiene (QC): 4 Toilet/Commode Transfer: 5 Toilet Transfer (QC): 4 Shower: 5 Assessment/Plan Assessment and Plan Assess & Plan/Chief Complaint Plan: IRF protocol Zenker's diverticulum consultation with Dr Whalen and his management is appreciated Pain control but limit due to oversedation propensity Fall risk when drowsy Home meds Reviewed notes Consult Dr Joaquin for iron def anemia Complete abx Monitor hgb Cognition deficit noted Occult + and Dr Whalen updated and will need endoscopy scheduled for Saturday Doppler negative for DVT Robitussin DM for cough (1) S/P total knee arthroplasty Status: Chronic (2) Acute kidney injury superimposed on chronic kidney disease Status: Acute (3) Type 2 diabetes mellitus Status: Chronic (4) Restless leg syndrome Status: Chronic (5) Essential hypertension Status: Chronic (6) Pleuritic chest pain Status: Acute (7) Coronary artery disease Status: Chronic (8) Left lower lobe pneumonia Status: Acute Qualifiers: Pneumonia type: due to unspecified organism Qualified Codes: J18.1 - Lobar pneumonia, unspecified organism (9) Drowsiness Status: Acute (10) Constipation Status: Acute Qualifiers: Constipation type: slow transit constipation Qualified Codes: K59.01 - Slow transit constipation (11) Sepsis due to pneumonia Status: Acute (12) Normocytic anemia Status: Acute (13) Hyperlipidemia Status: Chronic Qualifiers: Hyperlipidemia type: unspecified Qualified Codes: E78.5 - Hyperlipidemia, unspecified (14) Occult blood positive stool OLIVE ISAAC DO Jun 20, 2019 10:38
--- NOTE | 2019-06-20 13:01 | Physical Therapy Daily Note ---
PT Daily Note-Current Subjective Pt up in the chair and agreeable to therapy. Mental Status Patient Orientation: Person, Place, Time, Situation Transfers Therapy Code Descriptions/Definitions Functional [place] Measure: 0=Not Assessed/NA 4=Minimal Assistance 1=Total Assistance 5=Supervision or Setup 2=Maximal Assistance 6=Modified [place] 3=Moderate Assistance 7=Complete [place] Therapy Quality Codes: 6 Independent with activity with or without an assistive device 5 Patient requires set up or clean up by helper. Patient completes activity by themselves 4 Supervision or touching assist (CGA). [place] provide cues , steadying assist 3 The helper provides less than half the effort to complete the activity 2 The helper provides more than half the effort to complete the activity 1 Dependent. The helper does all the effort to complete an activity 7 Patient refused to complete or attempt activity 9 The patient did not perform the activity before the current illness or injury 88 Not attempted due to Medical conditions or safety concerns Transfers (B, C, W/C) (FIM): 6 Sit to/from Stand: 6 Sit to Stand (QC): 6 Weight Bearing Right Lower Extremity: Right Full Weight Bearing Left Lower Extremity: Left Full Weight Bearing Gait Training Does the Patient Walk?: Yes Distance (FIM): 3=150 ft Distance: 150ft x2 Gait Level of Assist: 6 Gait Persons Needed: 1 Gait Assistive Device: FWW Exercises Standin way Ex=Flex, Abd, Ext, Marching Standing Reps: 15 Assessment Good mobility with only c/o dyspnea following standing ex. PT Short Term Goals Short Term Goals Time Frame: Jun 26, 2019 Transfers (B,C,W/C) (FIM): 5 Gait (FIM): 4 PT Fdc Goals Sales Consultant Residential Manager Goals PT Fdc Goals Time Frame: Jul 10, 2019 Transfers (B,C,W/C) (FIM): 7 Sit to Lying (QC): 6 Lying-Sitting on Side/Bed(QC): 6 Sit to Stand (QC): 6 Rollin Roll Left to Right (QC): 6 Chair/Sbf-av-Dpebo Xfer(QC): 6 Car Transfer (QC): 6 Does the Patient Walk: Yes Gait (FIM): 6 Gait distance (FIM): 3=150 ft Walk 10 feet (QC): 6 Walk 10ft-Uneven Surface(QC): 6 Walk 50ft with 2 Turns (QC): 6 Walk 150 ft (QC): 6 Gait Assistive Device: FWW Does the Pt use WC or Scooter?: No Stairs (FIM): 5 # of Steps: 4 1 Step (curb) (QC): 6 4 Steps (QC): 6 12 Steps (QC): 9 Picking up an Object (QC): 4 PT Plan Treatment/Plan Treatment Plan: Continue Plan of Care Treatment Plan: Bed Mobility, Education, Functional Activity [place], Functional Strength, Group Therapy, Gait, Safety, Therapeutic Exercise, Transfers Treatment Duration: Jul 10, 2019 Frequency: At least 5 of 7 days/Wk (IRF) Estimated Hrs Per Day: 1.5 hours per day Patient and/or Family Agrees t: Yes Time/GCodes Time In: 1018 Time Out: 1030 Total Billed Treatment Time: 12 Total Billed Treatment 1, gt 12 EMERSON YATES PT Jun 20, 2019 13:01
[2019-06-20 16:06] VITALS: BP 129/72
[2019-06-20 21:13] VITALS: BP 135/71
[2019-06-20] MEDS: rOPINIRole 1 MG (REQUIP) TABLET PO SCH (21:15)
[2019-06-21] MEDS: oxyCODONE/APAP 10/325MG (PERCOCET 10) TABLET PO PRN ×5 (02:24→21:03)
[2019-06-21 05:45] VITALS: BP 171/73
[2019-06-21] MEDS: CATHETER FLUSH 10 ML SYR IV SCH ×3 (06:25→21:09)
[2019-06-21] MEDS: PANTOPRAZOLE 40 MG (PROTONIX) TAB PO SCH (06:25)
[2019-06-21] MEDS: HYDROXYCHLOROQUINE 200 MG (PLAQUENIL) TAB PO SCH ×2 (06:26→17:05)
[2019-06-21] MEDS: inSUlin ASPART (NovoLOG) 1 UNIT/0.01 ML (CHARGE PER UNIT) SC SCH ×4 (06:27→21:10)
[2019-06-21 08:00] VITALS: BP 163/82
--- NOTE | 2019-06-21 08:00 | NUR ---
STATES SLEPT GOOD LAST NIGHT. VOICE IS NOT HOARSE TODAY. STATES LESS COUGHING AND CHEST PAIN IMPROVED.
[2019-06-21] MEDS: RT-ALBUTEROL/IPRATROPIUM 3 ML (DUONEB) VIAL INH SCH ×4 (08:52→19:50)
[2019-06-21] MEDS: DULoxetine 30 MG (CYMBALTA) CAP PO SCH (08:55)
[2019-06-21] MEDS: GABAPENTIN 300 MG (NEURONTIN) CAP PO SCH ×3 (08:55→21:01)
[2019-06-21] MEDS: rOPINIRole 0.25 MG (REQUIP) TAB PO SCH (08:55)
[2019-06-21] MEDS: LABETALOL 200 MG (NORMODYNE) TAB PO SCH ×2 (08:56→21:02)
[2019-06-21] MEDS: POLYETHYLENE GLYCOL 17 GM (MIRALAX) PACK PO SCH ×2 (08:56→21:11)
[2019-06-21] MEDS: FUROSEMIDE 40 MG (LASIX) TAB PO SCH (08:56)
[2019-06-21] MEDS: amLODIPine 10 MG (NORVASC) TAB PO SCH (08:56)
[2019-06-21] MEDS: toPIRamate 25 MG (TOPAMAX) TAB PO SCH (08:56)
[2019-06-21] MEDS: DOCUSATE SODIUM 100 MG (COLACE) CAP PO SCH ×2 (08:57→21:11)
[2019-06-21] MEDS: guaiFENesin (MUCINEX) 600 MG TAB PO SCH ×2 (09:00→21:12)
[2019-06-21] MEDS: MAGIC MOUTHWASH (ADULT) PO SCH ×16 (09:00→21:11)
[2019-06-21] MEDS: BRIMONIDINE 0.2% (ALPHAGAN) OPHTH SOLN 5 ML BTL OU SCH ×3 (09:00→21:01)
[2019-06-21] MEDS: methylPREDNISolone 40 MG/ML (Solu-MEDROL) VIAL IV SCH (09:00)
[2019-06-21] MEDS: SENNA W/DOCUSATE (SENOKOT S) TABLET PO SCH ×2 (09:04→21:12)
[2019-06-21] MEDS: guaiFENesin/DM (ROBITUSSIN DM) 10 ML UDC PO PRN ×2 (09:06→23:04)
[2019-06-21] MEDS: CATHETER FLUSH 10 ML SYR IV PRN (09:06)
--- NOTE | 2019-06-21 11:00 | NUR ---
DR. ISAAC AWARE OF EPISODES OF HYPERTENSION. DR. GUTIERREZ CONTINUES TO SEE PATIENT. PATIENT AWARE OF PLAN FOR COLONOSCOPY PREP TOMORROW AND TO EAT A LIGHT BREAKFAST IN AM.
--- NOTE | 2019-06-21 13:25 | PM&R Progress Note ---
Subjective HPI/CC On Admission Date Seen by Provider: Jun 21, 2019 Time Seen by Provider: 12:15 Chief complaint: Debility following right total knee replacement complicated with pneumonia and elevated creatinine History of present illness: This is a 68-year-old white female clinic patient of [facility] who is admitted to inpatient rehab following a right total knee arthroplasty by Dr. Meneses there was originally uncomplicated but then became complicated with a postop pneumonia. I am unable to get any reliable details from the patient since they are very vague complaints and she reports that she still feels loopy from the pain medication given today. I do reviewed the prior records from Dr. Crum and it appears that she was a poor historian to begin with and having difficulty motivating to participating therapy. At this current time patient is reporting a sore throat of which the nurse was given no reported that that she complained of it upstairs on fourth floor. Her Levaquin will be maintained every other day renal dosed due to her multiple antibiotic allergies. Her baseline creatinine is 1.7. She does see nephrology on a regular basis but unable to tell me the name of that doctor. She is really unable to tell me any of her doctors names except for Lola Benson who she sees a [facility]. She remained on DVT prophylaxis of heparin since postoperative but venous Doppler ultrasound was ordered for thorough medical care evaluation but the lower extremities do not appear to be edematous or have any type of pain on the calf muscle. We will try to be judicious regarding pain medication administration in order to prevent oversedation. We will inquire further when she is less drowsy regarding her prior level of functioning. Subjective/Events-last exam Coughing continues to be resolved Blood pressure sometimes runs in systolic of 160 Weaned off oxygen and now on room air Sugar was 349 so we will continue to titrate down steroids and discontinue the IV form and start on prednisone to 40 mg and titrate down Hoarseness much improved from yesterday EGD and colonoscopy prep to start tomorrow Patient continues to appear pale but overall appears to be building strength Conferred with RN Reviewed therapy notes Checked meds and labs Review of Systems Musculoskeletal: leg pain Objective Exam Vital Signs Vital Signs Date Time Temp Pulse Resp B/P (MAP) Pulse Ox O2 Delivery O2 Flow Rate FiO2 06/21/19 19:50 91 Room Air 06/21/19 17:00 97.4 73 16 136/71 (92) 06/19/19 07:40 0.50 Capillary Refill : General Appearance: No Apparent Distress, WD/WN, Chronically ill, Other (improved) HEENT: PERRL/EOMI, Pharynx Normal Neck: Full Range of Motion, Normal Inspection, Non Tender, Supple; No Thyromegaly Respiratory: Chest Non Tender, No Accessory Muscle Use, No Respiratory Distress, Crackles (LLL), Wheezing Cardiovascular: Regular Rate, Rhythm Gastrointestinal: Normal Bowel Sounds, No Organomegaly, No Pulsatile Mass, Non Tender, Soft Back: Normal Inspection, No CVA Tenderness, No Vertebral Tenderness Extremity: Normal Capillary Refill, Normal Inspection, Non Tender, Pedal Edema, Other (decreased ROM right leg) Neurologic/Psychiatric: Alert, Oriented x3, No Motor/Sensory Deficits, Depressed Affect Skin: Normal Color, Warm/Dry Results/Procedures Lab Patient resulted labs reviewed. FIM Transfers Therapy Code Descriptions/Definitions Functional [place] Measure: 0=Not Assessed/NA 4=Minimal Assistance 1=Total Assistance 5=Supervision or Setup 2=Maximal Assistance 6=Modified [place] 3=Moderate Assistance 7=Complete [place] Therapy Quality Codes: 6 Independent with activity with or without an assistive device 5 Patient requires set up or clean up by helper. Patient completes activity by themselves 4 Supervision or touching assist (CGA). [place] provide cues , steadying assist 3 The helper provides less than half the effort to complete the activity 2 The helper provides more than half the effort to complete the activity 1 Dependent. The helper does all the effort to complete an activity 7 Patient refused to complete or attempt activity 9 The patient did not perform the activity before the current illness or injury 88 Not attempted due to Medical conditions or safety concerns Transfers (B, C, W/C) (FIM): 6 Scootin Rollin Roll Left to Right (QC): 4 Supine to/from Sit: 6 Sit to/from Stand: 6 Sit to Lying (QC): 3 Sit to Stand (QC): 6 Chair/Yrl-dm-Wtfuj Xfer(QC): 3 Bed to/from Chair: 6 Car Transfer (QC): 3 Gait Training Does the Patient Walk?: Yes Gait (FIM): 5 Distance (FIM): 3=150 ft Distance: 150ft x2 Walk 10 feet (QC): 4 Walk 50 ft with 2 Turns(QC): 4 Walk 150 ft (QC): 88 (unable to walk this distanc.e ) Walking 10ft/uneven surface-QC: 88 (unsafe to attempt at this time due to fall risk) Gait Level of Assist: 6 Gait Persons Needed: 1 Gait Assistive Device: FWW Wheelchair Training Does the Pt Use a Wheelchair?: No Stair Training Stairs (FIM): 0 1 Step (curb) (QC): 1 4 Steps (QC): 88 12 Steps (QC): 88 Balance Picking up an Object (QC): 88 Mental Status/Objective Comprehension: 5 Expression: 5 Social Interaction: 4 Problem Solvin Memory: 4 ADL-Treatment Feedin (Set up) Eating (QC): 5 Groomin Oral Hygiene (QC): 4 Bathin Shower/Bathe Self (QC): 4 Upper Extremity Dressin Upper Body Dressing (QC): 5 Lower Extremity Dressin Lower Body Dressing (QC): 4 On/Off Footwear (QC): 2 Toiletin Toileting Hygiene (QC): 4 Toilet/Commode Transfer: 5 Toilet Transfer (QC): 4 Shower: 5 Assessment/Plan Assessment and Plan Assess & Plan/Chief Complaint Plan: IRF protocol Zenker's diverticulum consultation with Dr Whalen and his management is appreciated Pain control but limit due to oversedation propensity Fall risk when drowsy Home meds Reviewed notes Consult Dr Joaquin for iron def anemia Complete abx for pneumonia Monitor hgb Cognition deficit noted Occult + and Dr Whalen updated and will need endoscopy scheduled for Saturday Doppler negative for DVT Robitussin DM for cough (1) S/P total knee arthroplasty Status: Chronic (2) Acute kidney injury superimposed on chronic kidney disease Status: Acute (3) Type 2 diabetes mellitus Status: Chronic (4) Restless leg syndrome Status: Chronic (5) Essential hypertension Status: Chronic (6) Pleuritic chest pain Status: Acute (7) Coronary artery disease Status: Chronic (8) Left lower lobe pneumonia Status: Acute Qualifiers: Pneumonia type: due to unspecified organism Qualified Codes: J18.1 - Lobar pneumonia, unspecified organism (9) Drowsiness Status: Acute (10) Constipation Status: Acute Qualifiers: Constipation type: slow transit constipation Qualified Codes: K59.01 - Slow transit constipation (11) Sepsis due to pneumonia Status: Acute (12) Normocytic anemia Status: Acute (13) Hyperlipidemia Status: Chronic Qualifiers: Hyperlipidemia type: unspecified Qualified Codes: E78.5 - Hyperlipidemia, unspecified (14) Occult blood positive stool OLIVE ISAAC DO Jun 21, 2019 13:25
[2019-06-21 17:00] VITALS: BP 136/71
[2019-06-21] MEDS: RT-BUDESONIDE NEBS 0.5 MG/2ML (PULMICORT) AMP INH SCH (19:50)
[2019-06-21 21:00] VITALS: BP 144/78
[2019-06-21] MEDS: rOPINIRole 1 MG (REQUIP) TABLET PO SCH (21:01)
[2019-06-22] MEDS: oxyCODONE/APAP 10/325MG (PERCOCET 10) TABLET PO PRN ×4 (03:54→20:01)
[2019-06-22 05:40] VITALS: BP 149/70
[2019-06-22] MEDS: PANTOPRAZOLE 40 MG (PROTONIX) TAB PO SCH (05:55)
[2019-06-22] MEDS: HYDROXYCHLOROQUINE 200 MG (PLAQUENIL) TAB PO SCH ×2 (05:55→17:38)
[2019-06-22] MEDS: inSUlin ASPART (NovoLOG) 1 UNIT/0.01 ML (CHARGE PER UNIT) SC SCH ×4 (05:56→22:31)
[2019-06-22] MEDS: CATHETER FLUSH 10 ML SYR IV SCH ×3 (06:07→20:02)
[2019-06-22 06:08] LABS: BASOPHILS % (AUTO) 0 % (0-10); EOSINOPHILS # (AUTO) 0.2 10^3/uL (0.0-0.3); EOSINOPHILS % (AUTO) 2 % (0-10); HEMATOCRIT 29 % (35-52); LYMPHOCYTES # (AUTO) 3.1 X 10^3 (1.0-4.0); LYMPHOCYTES % (AUTO) 22 % (12-44); MEAN CORPUSCULAR HEMOGLOBIN 30 PG (25-34); MEAN CORPUSCULAR HGB CONC 31 G/DL (32-36); MEAN CORPUSCULAR VOLUME 99 FL (80-99); MEAN PLATELET VOLUME 8.7 FL (7.4-10.4); MONOCYTES % (AUTO) 7 % (0-12); NEUTROPHILS # (AUTO) 9.7 X 10^3 (1.8-7.8); NEUTROPHILS % (AUTO) 69 % (42-75); PLATELET COUNT 510 10^3/uL (130-400); WHITE BLOOD COUNT 14.1 10^3/uL (4.3-11.0)
--- NOTE | 2019-06-22 06:24 | NUR ---
DR. ISAAC NOTIFIED OF WBC 14.1. NO NEW ORDERS AT THIS TIME
[2019-06-22 06:27] LABS: ALBUMIN 3.2 GM/DL (3.2-4.5); BILIRUBIN,TOTAL 0.4 MG/DL (0.1-1.0); CALCIUM 7.8 MG/DL (8.5-10.1); CREATININE SERUM 1.57 MG/DL (0.60-1.30); POTASSIUM 3.6 MMOL/L (3.6-5.0); TOTAL PROTEIN 5.6 GM/DL (6.4-8.2)
[2019-06-22 06:47] LABS: LYMPHOCYTES % (MANUAL) 22 %; MONOCYTES % (MANUAL) 8 %; NEUTROPHILS % (MANUAL) 70 %
[2019-06-22] MEDS ORDERED: predniSONE 20 MG TAB PO SCH (07:00)
[2019-06-22] MEDS: RT-ALBUTEROL/IPRATROPIUM 3 ML (DUONEB) VIAL INH SCH ×3 (07:37→19:03)
[2019-06-22] MEDS: RT-BUDESONIDE NEBS 0.5 MG/2ML (PULMICORT) AMP INH SCH ×2 (07:38→19:03)
--- NOTE | 2019-06-22 08:26 | Occupational Ther Daily Note ---
OT Current Status-Daily Note Subjective pt agreed to OT TX session with focus on increasing indep with toileting, increasing activity tolerance, and UE strength for daily activities. pt reports 6/10 pain RLE Mental Status/Objective Patient Orientation: Normal For Age Therapy Code Descriptions/Definitions Functional [place] Measure: 0=Not Assessed/NA 4=Minimal Assistance 1=Total Assistance 5=Supervision or Setup 2=Maximal Assistance 6=Modified [place] 3=Moderate Assistance 7=Complete [place] ADL-Treatment Therapy Code Descriptions/Definitions Functional [place] Measure: 0=Not Assessed/NA 4=Minimal Assistance 1=Total Assistance 5=Supervision or Setup 2=Maximal Assistance 6=Modified [place] 3=Moderate Assistance 7=Complete [place] Therapy Quality Codes: 6 Independent with activity with or without an assistive device 5 Patient requires set up or clean up by helper. Patient completes activity by themselves 4 Supervision or touching assist (CGA). [place] provide cues , steadying assist 3 The helper provides less than half the effort to complete the activity 2 The helper provides more than half the effort to complete the activity 1 Dependent. The helper does all the effort to complete an activity 7 Patient refused to complete or attempt activity 9 The patient did not perform the activity before the current illness or injury 88 Not attempted due to Medical conditions or safety concerns Grooming (FIM): 6 (standing at sink, wash face, brush teeth, comb hair, wash hands ) Toileting (FIM): 6 (3/3) Toileting Hygiene (QC): 6 Transfers (B, C, W/C) (FIM): 6 (use of RW ) Toilet/Commode Transfer (FIM): 6 Toilet Transfer (QC): 6 Other Treatment pt ambulated approx 90 ft t TX gym MOD I using RW. pt perform UBE 15 minutes 23 WATT to increase activity tolerance for daily activities. pt education on HEP to increase strength for daily activities. pt perform chest press, chest pulls, lateral raises, front raise, upright row, biceps curls, and overhead press using 1# weight 15X2. handout provided. pt alternated benjy UE with weight. pt then ambulated back to room MOD I. pt sitting in recliner chair, call light within reach, all needs met. Education OT Patient Education: Energy conservation, Exercise program, Home exercise program, Modified ADL techniques, Progress toward Goal/Update tx plan, Purpose of tx/functional activities, Safety issues, Transfer techniques Teaching Recipient: Patient Teaching Methods: Demonstration, Discussion Response to Teaching: Verbalize Understanding, Return Demonstration OT Short Term Goals Short Term Goals Time Frame: Jun 20, 2019 Eating(FIM): 6 Grooming(FIM): 5 Bathing(FIM): 4 Upper Body Dressing(FIM): 4 Lower Body Dressing(FIM): 4 Toileting(FIM): 4 Transfers (B,C,W/C) (FIM): 5 Toilet/Commode Transfer(FIM): 5 Shower Transfer(FIM): 4 Additional Short Term Goals: 1-Demonstrate ADL Tasks, 2-Verbalize Un derstanding, 3-ImproveStrength/Tay 1=Demonstrate adherence to instructed precautions during ADL tasks. 2=Patient will verbalize/demonstrate understanding of assistive devices/modifications for ADL. 3=Patient will improve strength/tolerance for activity to enable patient to perform ADL's. OT Sugar Cane Farm Manager Goals Sugar Cane Farm Manager Goals Time Frame: Jul 04, 2019 Eating (FIM): 6 Eating (QC): 6 Groomin Oral Hygiene (QC): 6 Bathing(FIM): 5 Shower/Bathe Self (QC): 5 Upper Body Dressing(FIM): 6 Upper Body Dressing (QC): 6 Lower Body Dressing(FIM): 5 Lower Body Dressing (QC): 5 On/Off Footwear (QC): 5 Toileting(FIM): 6 Toileting Hygiene (QC): 6 Toilet/Commode Transfer(FIM): 6 Toilet/Commode Transfer (QC): 6 Shower Transfer(FIM): 5 Additional Goals: 1-Demonstrate ADL Tasks, 2-Verbalize Understanding, 3- ImproveStrength/Tay 1=Demonstrate adherence to instructed precautions during ADL tasks. 2=Patient will verbalize/demonstrate understanding of assistive devices/modifications for ADL. 3=Patient will improve strength/tolerance for activity to enable patient to perform ADL's. OT Education/Plan Problem List/Assessment Assessment: Decreased Activ Tolerance, Decreased Safety Aware Discharge Recommendations Plan/Recommendations: Continue POC Treatment Plan/Plan of Care Treatment,Training & Education: Yes Patient would benefit from OT for education, treatment and training to promote independence in ADL's, mobility, safety and/or upper extremity function for ADL's. Plan of Care: ADL Retraining, Functional Mobility, Group Exercise/Act as Ind, UE Funct Exercise/Act Treatment Duration: Jul 04, 2019 Frequency: At least 5 of 7 days/Wk (IRF) Estimated Hrs Per Day: 1.5 hours per day Agreement: Yes Rehab Potential: Fair Time/GCodes Start Time: 08:00 Stop Time: 09:00 Billed Treatment Time ADL 20 minutes, 1 unit EX 40 minutes, 3 units ISIS TALAVERA OT Jun 22, 2019 08:26
[2019-06-22] MEDS: POLYETHYLENE GLYCOL 17 GM (MIRALAX) PACK PO SCH ×2 (10:01→22:23)
[2019-06-22] MEDS: GABAPENTIN 300 MG (NEURONTIN) CAP PO SCH ×3 (10:02→20:01)
[2019-06-22] MEDS: rOPINIRole 0.25 MG (REQUIP) TAB PO SCH (10:02)
[2019-06-22] MEDS: DULoxetine 30 MG (CYMBALTA) CAP PO SCH (10:02)
[2019-06-22] MEDS: DOCUSATE SODIUM 100 MG (COLACE) CAP PO SCH ×2 (10:03→20:01)
[2019-06-22] MEDS: FUROSEMIDE 40 MG (LASIX) TAB PO SCH (10:03)
[2019-06-22] MEDS: SENNA W/DOCUSATE (SENOKOT S) TABLET PO SCH ×2 (10:03→20:01)
[2019-06-22] MEDS: LABETALOL 200 MG (NORMODYNE) TAB PO SCH ×2 (10:04→20:01)
[2019-06-22] MEDS: amLODIPine 10 MG (NORVASC) TAB PO SCH (10:04)
--- NOTE | 2019-06-22 10:04 | PM&R Progress Note ---
Subjective HPI/CC On Admission Date Seen by Provider: Jun 22, 2019 Time Seen by Provider: 10:30 Chief complaint: Debility following right total knee replacement complicated with pneumonia and elevated creatinine History of present illness: This is a 68-year-old white female clinic patient of [facility] who is admitted to inpatient rehab following a right total knee arthroplasty by Dr. Meneses there was originally uncomplicated but then became complicated with a postop pneumonia. I am unable to get any relia ble details from the patient since they are very vague complaints and she reports that she still feels loopy from the pain medication given today. I do reviewed the prior records from Dr. Crum and it appears that she was a poor historian to begin with and having difficulty motivating to participating therapy. At this current time patient is reporting a sore throat of which the nurse was given no reported that that she complained of it upstairs on fourth floor. Her Levaquin will be maintained every other day renal dosed due to her multiple antibiotic allergies. Her baseline creatinine is 1.7. She does see nephrology on a regular basis but unable to tell me the name of that doctor. She is really unable to tell me any of her doctors names except for Lola Benson who she sees a [facility]. She remained on DVT prophylaxis of heparin since postoperative but venous Doppler ultrasound was ordered for thorough medical care evaluation but the lower extremities do not appear to be edematous or have any type of pain on the calf muscle. We will try to be judicious regarding pain medication administration in order to prevent oversedation. We will inquire further when she is less drowsy regarding her prior level of functioning. Subjective/Events-last exam Coughing continues to be resolved Bowel prep is not tolerated well but she will complete it she states Weaned off oxygen and now on room air Sugar are improved Hoarseness resolved EGD and colonoscopy tomorrow per Dr Whalen Patient continues to appear pale but overall appears to be building strength Hgb 9.0 elevated wbc 14.1 creat 1.57 Conferred with RN Reviewed therapy notes Checked meds and labs Review of Systems General: Fatigue Pulmonary: Dyspnea Objective Exam Vital Signs Vital Signs Date Time Temp Pulse Resp B/P (MAP) Pulse Ox O2 Delivery O2 Flow Rate FiO2 06/22/19 08:10 Room Air 06/22/19 07:44 91 06/22/19 05:40 96.8 78 18 149/70 (96) 06/19/19 07:40 0.50 Capillary Refill : General Appearance: No Apparent Distress, WD/WN, Chronically ill, Other (improved) HEENT: PERRL/EOMI, Pharynx Normal Neck: Full Range of Motion, Normal Inspection, Non Tender, Supple; No Thyromega ly Respiratory: Chest Non Tender, No Accessory Muscle Use, No Respiratory Dist ress, Crackles (LLL), Wheezing Cardiovascular: Regular Rate, Rhythm Gastrointestinal: Normal Bowel Sounds, No Organomegaly, No Pulsatile Mass, Non Tender, Soft Back: Normal Inspection, No CVA Tenderness, No Vertebral Tenderness Extremity: Normal Capillary Refill, Normal Inspection, Non Tender, Pedal Edema, Other (decreased ROM right leg) Neurologic/Psychiatric: Alert, Oriented x3, No Motor/Sensory Deficits, Depressed Affect Skin: Normal Color, Warm/Dry Results/Procedures Lab Laboratory Tests 06/22/19 06:00 Patient resulted labs reviewed. FIM Transfers Therapy Code Descriptions/Definitions Functional [place] Measure: 0=Not Assessed/NA 4=Minimal Assistance 1=Total Assistance 5=Supervision or Setup 2=Maximal Assistance 6=Modified [place] 3=Moderate Assistance 7=Complete [place] Therapy Quality Codes: 6 Independent with activity with or without an assistive device 5 Patient requires set up or clean up by helper. Patient completes activity by themselves 4 Supervision or touching assist (CGA). [place] provide cues , steadying assist 3 The helper provides less than half the effort to complete the activity 2 The helper provides more than half the effort to complete the activity 1 Dependent. The helper does all the effort to complete an activity 7 Patient refused to complete or attempt activity 9 The patient did not perform the activity before the current illness or injury 88 Not attempted due to Medical conditions or safety concerns Transfers (B, C, W/C) (FIM): 6 (use of RW ) Scootin Rollin Roll Left to Right (QC): 4 Supine to/from Sit: 6 Sit to/from Stand: 6 Sit to Lying (QC): 3 Sit to Stand (QC): 6 Chair/Grs-xu-Kvzen Xfer(QC): 3 Bed to/from Chair: 6 Car Transfer (QC): 3 Gait Training Does the Patient Walk?: Yes Gait (FIM): 5 Distance (FIM): 3=150 ft Distance: 150ft x2 Walk 10 feet (QC): 4 Walk 50 ft with 2 Turns(QC): 4 Walk 150 ft (QC): 88 (unable to walk this distanc.e ) Walking 10ft/uneven surface-QC: 88 (unsafe to attempt at this time due to fall risk) Gait Level of Assist: 6 Gait Persons Needed: 1 Gait Assistive Device: FWW Wheelchair Training Does the Pt Use a Wheelchair?: No Stair Training Stairs (FIM): 0 1 Step (curb) (QC): 1 4 Steps (QC): 88 12 Steps (QC): 88 Balance Picking up an Object (QC): 88 Mental Status/Objective Comprehension: 5 Expression: 5 Social Interaction: 4 Problem Solvin Memory: 4 ADL-Treatment Feedin (Set up) Eating (QC): 5 Groomin (standing at sink, wash face, brush teeth, comb hair, wash hands ) Oral Hygiene (QC): 4 Bathin Shower/Bathe Self (QC): 4 Upper Extremity Dressin Upper Body Dressing (QC): 5 Lower Extremity Dressin Lower Body Dressing (QC): 4 On/Off Footwear (QC): 2 Toiletin (3/3) Toileting Hygiene (QC): 6 Toilet/Commode Transfer: 6 Toilet Transfer (QC): 6 Shower: 5 Assessment/Plan Assessment and Plan Assess & Plan/Chief Complaint Plan: IRF protocol Zenker's diverticulum consultation with Dr Whalen and his management is appreciated Pain control but limit due to oversedation propensity Fall risk when drowsy Home meds Reviewed notes Consult Dr Joaquin for iron def anemia Complete abx for pneumonia Monitor hgb but improved Cognition deficit noted Occult + and Dr Whalen will perform endoscopies tomorrow Doppler negative for DVT Robitussin DM for cough (1) S/P total knee arthroplasty Status: Chronic (2) Acute kidney injury superimposed on chronic kidney disease Status: Acute (3) Type 2 diabetes mellitus Status: Chronic (4) Restless leg syndrome Status: Chronic (5) Essential hypertension Status: Chronic (6) Pleuritic chest pain Status: Acute (7) Coronary artery disease Status: Chronic (8) Left lower lobe pneumonia Status: Acute Qualifiers: Pneumonia type: due to unspecified organism Qualified Codes: J18.1 - Lobar pneumonia, unspecified organism (9) Drowsiness Status: Acute (10) Constipation Status: Acute Qualifiers: Constipation type: slow transit constipation Qualified Codes: K59.01 - Slow transit constipation (11) Sepsis due to pneumonia Status: Acute (12) Normocytic anemia Status: Acute (13) Hyperlipidemia Status: Chronic Qualifiers: Hyperlipidemia type: unspecified Qualified Codes: E78.5 - Hyperlipidemia, unspecified (14) Occult blood positive stool OLIVE ISAAC DO Jun 22, 2019 10:04
[2019-06-22] MEDS: toPIRamate 25 MG (TOPAMAX) TAB PO SCH (10:07)
[2019-06-22] MEDS: guaiFENesin (MUCINEX) 600 MG TAB PO SCH ×3 (10:07→22:24)
[2019-06-22] MEDS: MAGIC MOUTHWASH (ADULT) PO SCH ×16 (10:08→22:23)
[2019-06-22] MEDS: BRIMONIDINE 0.2% (ALPHAGAN) OPHTH SOLN 5 ML BTL OU SCH ×3 (10:11→22:30)
--- NOTE | 2019-06-22 10:51 | Speech Therapy Daily Note ---
Speech Daily Progress Note Subjective Date Seen by Provider: Jun 22, 2019 Time Seen by Provider: 00:30 Patient c/o bowel issues "not really diarrhea" but too soft to control. She stated she is having a colonoscopy due to blood in the stool before she can go home. Objective The patient completed a series of memory tasks related to her daily needs at 90% without cues. Assessment Assessment Current Status: Good Progress Treatment Plan Continue Plan of Care Communication Comprehension: 5 Expression: 5 Social Cognition Social Interaction: 4 Problem Solvin Memory: 4 Speech Short Term Goals Short Term Goals Short Term Goals 1) The patient will complete memory tasks related to her daily needs at 90% or greater with minimal cues. 2) The patient will complete problem solving tasks related to her daily needs at 90% or greater with minimal cues. 3) The patient will complete safety awareness tasks related to her daily needs at 90% or greater with minimal cues. Speech Manager Intranet Goals Manager Intranet Goals The patient will improve safety awareness and independence in order to safely return home. Speech-Plan Patient/Family Goals Patient/Family Goals: The patient is scheduled to return home on 06/24/19. Treatment Plan Speech Therapy Treatment Plan: Continue Plan of Care The patient has made good progress with meeting ST goals. Treatment Duration: Jun 26, 2019 Frequency: 5 times per week Estimated Hrs Per Day: .5 hour per day Rehab Potential: Fair Barriers to Learning: Patient had some cognitive deficits initially, however these are resolving. Pt/Family Agrees to Plan: Yes Safety Risks/Education Teaching Recipient: Patient Teaching Methods: Demonstration, Discussion Response to Teaching: Verbalize Understanding, Return Demonstration Education Topics Provided: Continued safety within her room and upon her return home. Time Speech Therapy Time In: 09:00 Speech Therapy Time Out: 09:30 Total Billed Time: 30 Billed Treatment Time 1, VÍCTOR Lentz Jun 22, 2019 10:51
--- NOTE | 2019-06-22 11:06 | Physical Therapy Daily Note ---
PT Daily Note-Current Subjective Pt agreeable to PT session. States she received pain meds an hour or so ago but still hurting. States she is not feeling very good today, has had a colon prep today and will be having a colonoscopy tomorrow. States she no long needs the Oxygen. Pain Numeric Pain Scale: 6 Comment: R knee sourounding, mostly in front of knee Appearance Pt sitting up in chair upon arrival, awake and alert. Pt sitting up in recliner at end of session with call light, phone and bedside table within reach, pt declined use of polar pack for knee. Mental Status Patient Orientation: Person, Place, Time, Eyes Open, Situation Transfers Therapy Code Descriptions/Definitions Functional [place] Measure: 0=Not Assessed/NA 4=Minimal Assistance 1=Total Assistance 5=Supervision or Setup 2=Maximal Assistance 6=Modified [place] 3=Moderate Assistance 7=Complete [place] Therapy Quality Codes: 6 Independent with activity with or without an assistive device 5 Patient requires set up or clean up by helper. Patient completes activity by themselves 4 Supervision or touching assist (CGA). [place] provide cues , steadying assist 3 The helper provides less than half the effort to complete the activity 2 The helper provides more than half the effort to complete the activity 1 Dependent. The helper does all the effort to complete an activity 7 Patient refused to complete or attempt activity 9 The patient did not perform the activity before the current illness or injury 88 Not attempted due to Medical conditions or safety concerns Transfers (B, C, W/C) (FIM): 5 Sit to/from Stand: 5 (min skilled verb inst required for hand placement) Weight Bearing Right Lower Extremity: Right Full Weight Bearing Left Lower Extremity: Left Full Weight Bearing Gait Training Does the Patient Walk?: Yes Gait (FIM): 5 Distance (FIM): 3=150 ft Distance: 203, 111 Gait Level of Assist: 5 (SBA provided, no unsteadiness or LOB) Gait Assistive Device: FWW Exercises Supine Ex: Ankle pumps, Quad Set, Heel Slides, Short Arc Quads, Straight leg raise Supine Reps: 10 (knee ext stretches) Seated Therapy Exercises: Ankle pumps, Sit to stand, Long arc quads, Hip flexio n, Hamstring Curls, Hip abd/add Seated Reps: 10 (knee ext stretch x3 minutes, knee flex stretch to ~90* x10) NuStep Minutes: 15 NuStep Workload: 4 (emphasizing knee flex stetches and knee ext stretches) Treatments transfers, safety, education, strength, ROM, balance, activity tolerance, functional mobility, gait Assessment Current Status: Good Progress PT Short Term Goals Short Term Goals Time Frame: Jun 26, 2019 Transfers (B,C,W/C) (FIM): 5 Gait (FIM): 4 PT Professor Of Voice Goals Halfway Goals PT Halfway Goals Time Frame: Jul 10, 2019 Transfers (B,C,W/C) (FIM): 7 Sit to Lying (QC): 6 Lying-Sitting on Side/Bed(QC): 6 Sit to Stand (QC): 6 Rollin Roll Left to Right (QC): 6 Chair/Wyg-wt-Fcbhc Xfer(QC): 6 Car Transfer (QC): 6 Does the Patient Walk: Yes Gait (FIM): 6 Gait distance (FIM): 3=150 ft Walk 10 feet (QC): 6 Walk 10ft-Uneven Surface(QC): 6 Walk 50ft with 2 Turns (QC): 6 Walk 150 ft (QC): 6 Gait Assistive Device: FWW Does the Pt use WC or Scooter?: No Stairs (FIM): 5 # of Steps: 4 1 Step (curb) (QC): 6 4 Steps (QC): 6 12 Steps (QC): 9 Picking up an Object (QC): 4 PT Plan Treatment/Plan Treatment Plan: Continue Plan of Care Treatment Plan: Bed Mobility, Education, Functional Activity [place], Functional Strength, Group Therapy, Gait, Safety, Therapeutic Exercise, Transfers Treatment Duration: Jul 10, 2019 Frequency: At least 5 of 7 days/Wk (IRF) Estimated Hrs Per Day: 1.5 hours per day Patient and/or Family Agrees t: Yes Safety Risks/Education Patient Education: Gait Training, Transfer Techniques, Safety Issues Teaching Recipient: Patient Teaching Methods: Demonstration, Discussion Response to Teaching: Verbalize Understanding, Return Demonstration Time/GCodes Time In: 1045 Time Out: 1130 Total Billed Treatment Time: 45 Total Billed Treatment 1 visit, FA x10, GT x15, EX x20 GARY VAZQUEZ DIGITAL DEVELOPER Jun 22, 2019 11:05
[2019-06-22] MEDS ORDERED: BISACODYL 5 MG (DULCOLAX) TABLET PO NR ×2 (12:00→15:00)
--- NOTE | 2019-06-22 14:16 | Therapy Group Daily Note ---
Therapy Daily Group Note Patient Education Topic Exercises Exercises LE Seated Exercise, LE Standing Exercise, ROM, Stretching, UE Exercise Session Ratio (pt:therapist): 3:1 Goal of Session: Education on ARU Expectations, Energy Conservation Tech., UE/LE Strengthing Goal Met for this Session: Yes Pt Benefit of Group: Contributions to Others, F/U Use of Strategies @Home, Increased Functional Safety, Increased Functional Strength, Improved Cognition, Recognition of Peers, Socialization Other/Notes Pt ambulated to [facility] for OT group. Group consisted of introductions (name, place living, and first job), socialization,purpose of exercises, and ARU expectations. Pt introduced self appropriately and actively listened to peers. Pt acknowledged understanding of educational topics exercises. pt given 2 dice to roll for sets and reps of exercises. pt given card with ex written on it and instructed group on how to perform ex. pt perform mixture of UE/ LE exercises to increase overall strength for daily activities.. After therapy, pt lying in bed with call light/phone in reach. All needs met in room. Start Time: 12:40 Stop Time: 13:50 Total Billed Treatment GRP 70 minutes ISIS TALAVERA OT Jun 22, 2019 14:16
[2019-06-22 17:00] VITALS: BP 144/80
[2019-06-22] MEDS ORDERED: POLYETHYLENE GLYCOL 17 GM (MIRALAX) PACK PO NR (18:00)
--- NOTE | 2019-06-22 19:36 | NUR ---
Patient to have colonoscopy tomorrow with Dr. Whalen. This RN called the surgeon precision filer hand, Dr. Bose, d/t patient not being able to complete bowel prep and drink more than 16 oz of miralax/gatorade prep. Dr. Bose ordered for the patient to have 1/2 bottle magnesium citrate now, and repeat the other half of the bottle at midnight if the patient is not having stools. This RN relayed this information to the patients bedside RNJenny.
[2019-06-22] MEDS ORDERED: MAGNESIUM CITRATE 300 ML BTL PO ONE ×2 (19:45→23:30)
[2019-06-22] MEDS: rOPINIRole 1 MG (REQUIP) TABLET PO SCH (20:01)
[2019-06-22 20:07] VITALS: BP 132/67
[2019-06-23] MEDS: oxyCODONE/APAP 10/325MG (PERCOCET 10) TABLET PO PRN ×4 (01:31→20:12)
[2019-06-23] MEDS: inSUlin ASPART (NovoLOG) 1 UNIT/0.01 ML (CHARGE PER UNIT) SC SCH ×4 (05:32→21:52)
[2019-06-23] MEDS: PANTOPRAZOLE 40 MG (PROTONIX) TAB PO SCH (05:32)
[2019-06-23] MEDS: CATHETER FLUSH 10 ML SYR IV SCH ×3 (05:32→20:14)
[2019-06-23] MEDS: HYDROXYCHLOROQUINE 200 MG (PLAQUENIL) TAB PO SCH ×2 (05:33→17:13)
[2019-06-23 05:57] VITALS: BP 143/76
--- NOTE | 2019-06-23 06:00 | NUR ---
pt awake most of noc up to bsc et expelled small dark brown stools freq. during the noc. see mar pain med given with relief noted. npo after midnight
[2019-06-23] MEDS: RT-BUDESONIDE NEBS 0.5 MG/2ML (PULMICORT) AMP INH SCH ×2 (06:27→19:34)
[2019-06-23] MEDS: RT-ALBUTEROL/IPRATROPIUM 3 ML (DUONEB) VIAL INH SCH ×4 (06:27→19:33)
[2019-06-23] MEDS ORDERED: predniSONE 10 MG TAB PO SCH (07:00)
--- NOTE | 2019-06-23 08:38 | Cardiology Progress Note ---
Subjective Date Seen by Provider: Jun 23, 2019 Time Seen by Provider: 08:00 Subjective/Events-last exam Patient with PT. Denies any chest pain or dyspnea. States swelling in leg much improved. Objective-Cardiology Exam Last Set of Vital Signs Vital Signs 06/19/19 06/23/19 07:40 05:57 Temp 97.6 Pulse 70 Resp 16 B/P (MAP) 143/76 (98) Pulse Ox 96 O2 Delivery Room Air O2 Flow Rate 0.50 Capillary Refill : I&O Intake and Output 06/23/19 00:00 Intake Total 760 ml Balance 760 ml Intake Oral 760 ml # Voids 3 General: Alert, Oriented X3, Cooperative HEENT: Atraumatic, PERRLA Neck: Supple, No JVD, No Thyromegaly Lungs: Clear to Auscultation, Normal Air Movement Heart: Regular Rate, Normal S1, Normal S2, No Murmurs Abdomen: Normal Bowel Sounds, Soft, No Tenderness, No Hepatosplenomegaly, No Masses Extremities: No Cyanosis, Normal Pulses, Other (right leg 2+ edemaTenderness) Skin: No Rashes, No Breakdown, No Significant Lesion Neuro: Normal Gait, Normal Speech, Strength at 5/5 X4 Ext, Normal Tone, Sensation Intact Psych/Mental Status: Mental Status NL, Mood NL A/P-Cardiology Admission Diagnosis chest pain CAD dyspnea HTN Assessment/Plan Chest pain, nonspecific etiology. No evidence of acute coronary syndrome. Low probability VQ scan for PE on 06/13/19. Denies any further episode or chest pain, continue to monitor Coronary artery disease, history of stent to the right coronary artery using 3.5 time 12 mm Ion stent done in 2009, last stress test was done in November 2018 showing no significant ischemia or infarction. Pleuritic chest pain, CT scan of the chest suggestive of left mass versus pneumonia, receiving antibiotics. Managed by Dr. Garcia. Shortness of breath, acute respiratory insufficiency, improved at this time. Continue to monitor Anemia, monitor H&H, aspirin was discontinued, Hemoccult +. Management per Dr. 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 Continue to monitor Status post right total knee arthroplasty done on June 09, 2019, recovering slowly, receiving physical therapy. Complaining of increased right leg pain, scheduled for RLE venous duplex later today. Hypertension, blood pressure is better controlled. Monitor blood pressure Hyperlipidemia, continue to monitor lipids Diabetes mellitus, followed and managed by primary care physician History of restless leg syndrome Clinical Quality Measures DVT/VTE Risk/Contraindication: Risk Factor Score Per Nursin RFS Level Per Nursing on Admit: 4+=Very High Supervisory-Addendum Brief Supervisory Addendum Participated in pt care: history, MDM, physical Personally performed: exam, history, MDM Care discussed with: TAYLOR Notes: Patient is laying down in bed, denied any pain, swelling in the right leg is better. Chest pain, reporting improvement. Continue to monitor Hypertension, controlled, continue to monitor Coronary artery disease, clinically stable. Status post knee surgery. Recovering well. YRN ORTIZ Jun 23, 2019 08:38 ABBI GUTIERREZ MD Jun 23, 2019 09:44
[2019-06-23] MEDS: guaiFENesin (MUCINEX) 600 MG TAB PO SCH ×2 (09:00→20:18)
[2019-06-23] MEDS: LABETALOL 200 MG (NORMODYNE) TAB PO SCH ×2 (09:00→20:12)
[2019-06-23] MEDS: BRIMONIDINE 0.2% (ALPHAGAN) OPHTH SOLN 5 ML BTL OU SCH ×3 (09:00→20:12)
[2019-06-23] MEDS: rOPINIRole 0.25 MG (REQUIP) TAB PO SCH (09:00)
[2019-06-23] MEDS: POLYETHYLENE GLYCOL 17 GM (MIRALAX) PACK PO SCH ×2 (09:00→20:18)
[2019-06-23] MEDS: FUROSEMIDE 40 MG (LASIX) TAB PO SCH (09:00)
[2019-06-23] MEDS: toPIRamate 25 MG (TOPAMAX) TAB PO SCH (09:00)
[2019-06-23] MEDS: GABAPENTIN 300 MG (NEURONTIN) CAP PO SCH ×3 (09:00→20:12)
[2019-06-23] MEDS: amLODIPine 10 MG (NORVASC) TAB PO SCH (09:00)
[2019-06-23] MEDS: DOCUSATE SODIUM 100 MG (COLACE) CAP PO SCH ×2 (09:00→20:17)
[2019-06-23] MEDS: SENNA W/DOCUSATE (SENOKOT S) TABLET PO SCH ×2 (09:00→20:18)
[2019-06-23] MEDS: DULoxetine 30 MG (CYMBALTA) CAP PO SCH (09:00)
[2019-06-23] MEDS: MAGIC MOUTHWASH (ADULT) PO SCH ×16 (09:00→20:13)
--- NOTE | 2019-06-23 09:49 | PM&R Progress Note ---
Subjective HPI/CC On Admission Date Seen by Provider: Jun 23, 2019 Time Seen by Provider: 09:00 Chief complaint: Debility following right total knee replacement complicated with pneumonia and elevated creatinine History of present illness: This is a 68-year-old white female clinic patient of [facility] who is admitted to inpatient rehab following a right total knee arthroplasty by Dr. Meneses there was originally uncomplicated but then became complicated with a postop pneumonia. I am unable to get any reliable details from the patient since they are very vague complaints and she reports that she still feels loopy from the pain medication given today. I do reviewed the prior records from Dr. Crum and it appears that she was a poor historian to begin with and having difficulty motivating to participating therapy. At this current time patient is reporting a sore throat of which the nurse was given no reported that that she complained of it upstairs on fourth floor. Her Levaquin will be maintained every other day renal dosed due to her multiple antibiotic allergies. Her baseline creatinine is 1.7. She does see nephrology on a regular basis but unable to tell me the name of that doctor. She is really unable to tell me any of her doctors names except for Lola Benson who she sees a [facility]. She remained on DVT prophylaxis of heparin since postoperative but venous Doppler ultrasound was ordered for thorough medical care evaluation but the lower extremities do not appear to be edematous or have any type of pain on the calf muscle. We will try to be judicious regarding pain medication administration in order to prevent oversedation. We will inquire further when she is less drowsy regarding her prior level of functioning. Subjective/Events-last exam NPO now. Colon prep went well. Colonoscopy today by Dr. Whalen. Prednisone titrating down to very low dose and tomorrow it will be done. Sugar is 156 today. Denies any pain. Patient continues to appear pale but overall appears to be building strength Yesterday labs: Hgb 9.0 elevated wbc 14.1 creat 1.57 Conferred with RN Reviewed therapy notes Checked meds and labs Review of Systems General: Fatigue Musculoskeletal: leg pain Objective Exam Vital Signs Vital Signs Date Time Temp Pulse Resp B/P (MAP) Pulse Ox O2 Delivery O2 Flow Rate FiO2 06/23/19 19:38 95 Room Air 06/23/19 18:00 97.6 89 18 144/76 (98) 830/19 07:40 0.50 Capillary Refill : General Appearance: No Apparent Distress, WD/WN, Chronically ill, Other (improved) HEENT: PERRL/EOMI, Pharynx Normal Neck: Full Range of Motion, Normal Inspection, Non Tender, Supple; No Thyromegaly Respiratory: Chest Non Tender, No Accessory Muscle Use, No Respiratory Distress, Crackles (LLL), Wheezing Cardiovascular: Regular Rate, Rhythm Gastrointestinal: Normal Bowel Sounds, No Organomegaly, No Pulsatile Mass, Non Tender, Soft Back: Normal Inspection, No CVA Tenderness, No Vertebral Tenderness Extremity: Normal Capillary Refill, Normal Inspection, Non Tender, Pedal Edema, Other (decreased ROM right leg) Neurologic/Psychiatric: Alert, Oriented x3, No Motor/Sensory Deficits, Depress ed Affect Skin: Normal Color, Warm/Dry Results/Procedures Lab Patient resulted labs reviewed. FIM Transfers Therapy Code Descriptions/Definitions Functional [place] Measure: 0=Not Assessed/NA 4=Minimal Assistance 1=Total Assistance 5=Supervision or Setup 2=Maximal Assistance 6=Modified [place] 3=Moderate Assistance 7=Complete [place] Therapy Quality Codes: 6 Independent with activity with or without an assistive device 5 Patient requires set up or clean up by helper. Patient completes activity by themselves 4 Supervision or touching assist (CGA). [place] provide cues , steadying assist 3 The helper provides less than half the effort to complete the activity 2 The helper provides more than half the effort to complete the activity 1 Dependent. The helper does all the effort to complete an activity 7 Patient refused to complete or attempt activity 9 The patient did not perform the activity before the current illness or injury 88 Not attempted due to Medical conditions or safety concerns Transfers (B, C, W/C) (FIM): 5 Scootin Rollin Roll Left to Right (QC): 4 Supine to/from Sit: 6 Sit to/from Stand: 5 (min skilled verb inst required for hand placement) Sit to Lying (QC): 3 Sit to Stand (QC): 6 Chair/Iyw-yj-Iasuo Xfer(QC): 3 Bed to/from Chair: 6 Car Transfer (QC): 3 Gait Training Does the Patient Walk?: Yes Gait (FIM): 5 Distance (FIM): 3=150 ft Distance: 203, 111 Walk 10 feet (QC): 4 Walk 50 ft with 2 Turns(QC): 4 Walk 150 ft (QC): 88 (unable to walk this distanc.e ) Walking 10ft/uneven surface-QC: 88 (unsafe to attempt at this time due to fall risk) Gait Level of Assist: 5 (SBA provided, no unsteadiness or LOB) Gait Persons Needed: 1 Gait Assistive Device: FWW Wheelchair Training Does the Pt Use a Wheelchair?: No Stair Training Stairs (FIM): 0 1 Step (curb) (QC): 1 4 Steps (QC): 88 12 Steps (QC): 88 Balance Picking up an Object (QC): 88 Mental Status/Objective Comprehension: 5 Expression: 5 Social Interaction: 4 Problem Solvin Memory: 4 ADL-Treatment Feedin (Set up) Eating (QC): 5 Groomin (standing at sink, wash face, brush teeth, comb hair, wash hands ) Oral Hygiene (QC): 4 Bathin Shower/Bathe Self (QC): 4 Upper Extremity Dressin Upper Body Dressing (QC): 5 Lower Extremity Dressin Lower Body Dressing (QC): 4 On/Off Footwear (QC): 2 Toiletin (3/3) Toileting Hygiene (QC): 6 Toilet/Commode Transfer: 6 Toilet Transfer (QC): 6 Shower: 5 Assessment/Plan Assessment and Plan Assess & Plan/Chief Complaint Plan: IRF protocol Zenker's diverticulum consultation with Dr Whalen and his management is appreciated Pain control but limit due to oversedation propensity Fall risk when drowsy Home meds Reviewed notes Consult Dr Joaquin for iron def anemia Complete abx for pneumonia Monitor hgb but improved Cognition deficit noted Occult + and Dr Whalen will perform endoscopies today Doppler negative for DVT Robitussin DM for cough (1) S/P total knee arthroplasty Status: Chronic (2) Acute kidney injury superimposed on chronic kidney disease Status: Acute (3) Type 2 diabetes mellitus Status: Chronic (4) Restless leg syndrome Status: Chronic (5) Essential hypertension Status: Chronic (6) Pleuritic chest pain Status: Acute (7) Coronary artery disease Status: Chronic (8) Left lower lobe pneumonia Status: Acute Qualifiers: Pneumonia type: due to unspecified organism Qualified Codes: J18.1 - Lobar pneumonia, unspecified organism (9) Drowsiness Status: Acute (10) Constipation Status: Acute Qualifiers: Constipation type: slow transit constipation Qualified Codes: K59.01 - Slow transit constipation (11) Sepsis due to pneumonia Status: Acute (12) Normocytic anemia Status: Acute (13) Hyperlipidemia Status: Chronic Qualifiers: Hyperlipidemia type: unspecified Qualified Codes: E78.5 - Hyperlipidemia, unspecified (14) Occult blood positive stool OLIVE ISAAC DO Jun 23, 2019 09:48
--- NOTE | 2019-06-23 10:12 | Physical Therapy Daily Note ---
PT Daily Note-Current Subjective Patient in bed pre tx, agrees to PT, has 5/10 pain in right knee. Appearance Patient in bed post tx with nurse call, phone, tray, all needs met. Mental Status Patient Orientation: Person, Place, Situation Transfers Therapy Code Descriptions/Definitions Functional [place] Measure: 0=Not Assessed/NA 4=Minimal Assistance 1=Total Assistance 5=Supervision or Setup 2=Maximal Assistance 6=Modified [place] 3=Moderate Assistance 7=Complete [place] Therapy Quality Codes: 6 Independent with activity with or without an assistive device 5 Patient requires set up or clean up by helper. Patient completes activity by themselves 4 Supervision or touching assist (CGA). [place] provide cues , steadying assist 3 The helper provides less than half the effort to complete the activity 2 The helper provides more than half the effort to complete the activity 1 Dependent. The helper does all the effort to complete an activity 7 Patient refused to complete or attempt activity 9 The patient did not perform the activity before the current illness or injury 88 Not attempted due to Medical conditions or safety concerns Transfers (B, C, W/C) (FIM): 5 Scootin Rollin Roll Left to Right (QC): 6 Supine to/from Sit: 6 Sit to/from Stand: 5 Sit to Lying (QC): 6 Sit to Stand (QC): 4 Chair/Xpq-th-Izvbg Xfer(QC): 4 Bed to/from Chair: 5 Car Transfer (QC): 4 Patient performs bed mobility with mod I, supine <-> sit with mod I, sit <-> stand with SBA, transfers with SBA, car transfer SBA. Weight Bearing Right Lower Extremity: Right Full Weight Bearing Left Lower Extremity: Left Full Weight Bearing Gait Training Gait (FIM): 5 Distance: 200', 150' Walk 10 feet (QC): 4 Walk 50 ft with 2 Turns(QC): 4 Walk 150 ft (QC): 4 Walking 10ft/uneven surface-QC: 4 Gait Level of Assist: 5 Gait Persons Needed: 1 Gait Assistive Device: FWW Patient can ambulate 200' with a rolling walker with SBA (including 50' with at least 2 turns of 90 degrees and 10' over an uneven surface). Patient ambulates slowly, antalgic, flexed right knee. Stair Training Stair Training: Handrails/: 2 handrails Stairs (FIM): 2 #of Steps: 8 1 Step (curb) (QC): 4 4 Steps (QC): 4 Stairs: Pattern: Step to Level of Assist: 5 Patient can go up and down 8 steps using 2 handrails with SBA. Cues for foot placement. Exercises Supine Ex: Ankle pumps, Quad Set, Glut sets, Heel Slides, Short Arc Quads (5 min with 2# ankle weight), Straight leg raise Supine Reps: 20 NuStep Minutes: 10 NuStep Workload: 4 Treatments bed mobility and transfers, ambulation, LE exercise, stair training Assessment Current Status: Fair Progress improved general mobility PT Short Term Goals Short Term Goals Time Frame: Jun 26, 2019 Transfers (B,C,W/C) (FIM): 5 Gait (FIM): 4 PT Traveling Representative Goals Penitentiary Goals PT Penitentiary Goals Time Frame: Jul 10, 2019 Transfers (B,C,W/C) (FIM): 7 Sit to Lying (QC): 6 (met) Lying-Sitting on Side/Bed(QC): 6 (met) Sit to Stand (QC): 6 (met) Rollin (met) Roll Left to Right (QC): 6 (met) Chair/Mcm-bp-Uqssi Xfer(QC): 6 Car Transfer (QC): 6 Does the Patient Walk: Yes Gait (FIM): 6 Gait distance (FIM): 3=150 ft Walk 10 feet (QC): 6 Walk 10ft-Uneven Surface(QC): 6 Walk 50ft with 2 Turns (QC): 6 Walk 150 ft (QC): 6 Gait Assistive Device: FWW Does the Pt use WC or Scooter?: No Stairs (FIM): 5 # of Steps: 4 1 Step (curb) (QC): 6 4 Steps (QC): 6 12 Steps (QC): 9 Picking up an Object (QC): 4 PT Plan Problem List Problem List: Activity Tolerance, Functional Strength, Safety, Balance, Gait, Transfer, Bed Mobility, ROM Treatment/Plan Treatment Plan: Continue Plan of Care Treatment Plan: Bed Mobility, Education, Functional Activity Tay, Functional Strength, Group Therapy, Gait, Safety, Therapeutic Exercise, Transfers Treatment Duration: Jul 10, 2019 Frequency: At least 5 of 7 days/Wk (IRF) Estimated Hrs Per Day: 1.5 hours per day Patient and/or Family Agrees t: Yes Safety Risks/Education Patient Education: Gait Training, Transfer Techniques, Steps, Correct Positioning, Safety Issues Teaching Recipient: Patient Teaching Methods: Demonstration, Discussion Response to Teaching: Reinforcement Needed Time/GCodes Time In: 929 Time Out: 1015 Total Billed Treatment Time: 45 Total Billed Treatment 1 visit GT 15' EX 30' VIOLET GONZALES PT Jun 23, 2019 10:12
--- NOTE | 2019-06-23 11:53 | Speech Therapy Daily Note ---
Speech Daily Progress Note Subjective Date Seen by Provider: Jun 23, 2019 Time Seen by Provider: 00:30 The patient stated she was tired from being up most of the night. She was given prep for colonoscopy today. Objective The patient completed memory exercises with "fill in the blank" at 95% without verbal cues. Assessment Assessment Current Status: Good Progress Communication Comprehension: 7 Expression: 7 Social Cognition Social Interaction: 7 Problem Solvin Memory: 7 Speech Short Term Goals Short Term Goals Short Term Goals 1) The patient will complete memory tasks related to her daily needs at 90% or greater with minimal cues. 2) The patient will complete problem solving tasks related to her daily needs at 90% or greater with minimal cues. 3) The patient will complete safety awareness tasks related to her daily needs at 90% or greater with minimal cues. Speech Faceter Goals Faceter Goals The patient will improve safety awareness and independence in order to safely return home. Speech-Plan Patient/Family Goals Patient/Family Goals: The patient is scheduled to return home tomorrow. Treatment Plan Speech Therapy Treatment Plan: Continue Plan of Care The patient has made good progress as a result of skilled ST goals. Treatment Duration: Jun 24, 2019 Frequency: 5 times per week Estimated Hrs Per Day: .5 hour per day Rehab Potential: Fair Barriers to Learning: The patient initially exhibited decreased cognitive function, however these deficits appear to be resolved. Pt/Family Agrees to Plan: Yes Safety Risks/Education Teaching Recipient: Patient Teaching Methods: Discussion Response to Teaching: Verbalize Understanding Education Topics Provided: Continued safety upon her return home. Time Speech Therapy Time In: 09:00 Speech Therapy Time Out: 09:30 Total Billed Time: 30 Billed Treatment Time [address]SH[address] Jun 23, 2019 11:53
--- NOTE | 2019-06-23 13:54 | Physical Therapy Daily Note ---
PT Daily Note-Current Subjective Patient in bed pre tx, agrees to PT, has 7/10 pain in right knee, nurse notified. Patient still awaiting her procedure. Appearance Patient in bed post tx with nurse call, phone, tray, all needs met. Mental Status Patient Orientation: Person, Place, Situation Transfers Therapy Code Descriptions/Definitions Functional [place] Measure: 0=Not Assessed/NA 4=Minimal Assistance 1=Total Assistance 5=Supervision or Setup 2=Maximal Assistance 6=Modified [place] 3=Moderate Assistance 7=Complete [place] Therapy Quality Codes: 6 Independent with activity with or without an assistive device 5 Patient requires set up or clean up by helper. Patient completes activity by themselves 4 Supervision or touching assist (CGA). [place] provide cues , steadying assist 3 The helper provides less than half the effort to complete the activity 2 The helper provides more than half the effort to complete the activity 1 Dependent. The helper does all the effort to complete an activity 7 Patient refused to complete or attempt activity 9 The patient did not perform the activity before the current illness or injury 88 Not attempted due to Medical conditions or safety concerns Transfers (B, C, W/C) (FIM): 5 Scootin Rollin Supine to/from Sit: 6 Sit to/from Stand: 5 Bed to/from Chair: 5 Weight Bearing Right Lower Extremity: Right Full Weight Bearing Left Lower Extremity: Left Full Weight Bearing Gait Training Gait (FIM): 5 Distance: 200', 150' Gait Level of Assist: 5 Gait Persons Needed: 1 Gait Assistive Device: FWW slow but steady ambulation Exercises Seated Therapy Exercises: Ankle pumps, Long arc quads, Hip flexion, Hamstring Curls (with RTB), Hip abd/add (squeeze pillow) Seated Reps: 20 2 min knee flexion stretch Treatments LE exercise, bed mobility and transfers, ambulation Assessment Current Status: Fair Progress improving general mobility PT Short Term Goals Short Term Goals Time Frame: Jun 26, 2019 Transfers (B,C,W/C) (FIM): 5 Gait (FIM): 4 PT Segmental Paving Supervisor Goals Segmental Paving Supervisor Goals PT Retirement Goals Time Frame: Jul 10, 2019 Transfers (B,C,W/C) (FIM): 7 Sit to Lying (QC): 6 (met) Lying-Sitting on Side/Bed(QC): 6 (met) Sit to Stand (QC): 6 (met) Rollin (met) Roll Left to Right (QC): 6 (met) Chair/Vuf-in-Eqzlx Xfer(QC): 6 Car Transfer (QC): 6 Does the Patient Walk: Yes Gait (FIM): 6 Gait distance (FIM): 3=150 ft Walk 10 feet (QC): 6 Walk 10ft-Uneven Surface(QC): 6 Walk 50ft with 2 Turns (QC): 6 Walk 150 ft (QC): 6 Gait Assistive Device: FWW Does the Pt use WC or Scooter?: No Stairs (FIM): 5 # of Steps: 4 1 Step (curb) (QC): 6 4 Steps (QC): 6 12 Steps (QC): 9 Picking up an Object (QC): 4 PT Plan Problem List Problem List: Activity Tolerance, Functional Strength, Safety, Balance, Gait, Transfer, Bed Mobility, ROM Treatment/Plan Treatment Plan: Continue Plan of Care Treatment Plan: Bed Mobility, Education, Functional Activity Tay, Functional Strength, Group Therapy, Gait, Safety, Therapeutic Exercise, Transfers Treatment Duration: Jul 10, 2019 Frequency: At least 5 of 7 days/Wk (IRF) Estimated Hrs Per Day: 1.5 hours per day Patient and/or Family Agrees t: Yes Safety Risks/Education Patient Education: Gait Training, Transfer Techniques, Correct Positioning, Safety Issues Teaching Recipient: Patient Teaching Methods: Demonstration, Discussion Response to Teaching: Reinforcement Needed Time/GCodes Time In: 1330 Time Out: 1400 Total Billed Treatment Time: 30 Total Billed Treatment 1 visit EX 10' GT 20' VIOLET GONZALES PT Jun 23, 2019 13:53
--- NOTE | 2019-06-23 14:08 | Occupational Ther Daily Note ---
OT Current Status-Daily Note Subjective Pt lying in bed upon OT arrival. Pt did not sleep well due to procedure prep. Pt agrees to therapy. Mental Status/Objective Patient Orientation: Person, Place, Time, Situation Therapy Code Descriptions/Definitions Functional [place] Measure: 0=Not Assessed/NA 4=Minimal Assistance 1=Total Assistance 5=Supervision or Setup 2=Maximal Assistance 6=Modified [place] 3=Moderate Assistance 7=Complete [place] ADL-Treatment Pt required increased time to perform ADLs due to frequent breaks due to procedure prep. Therapy Code Descriptions/Definitions Functional [place] Measure: 0=Not Assessed/NA 4=Minimal Assistance 1=Total Assistance 5=Supervision or Setup 2=Maximal Assistance 6=Modified [place] 3=Moderate Assistance 7=Complete [place] Therapy Quality Codes: 6 Independent with activity with or without an assistive device 5 Patient requires set up or clean up by helper. Patient completes activity by themselves 4 Supervision or touching assist (CGA). [place] provide cues , steadying assist 3 The helper provides less than half the effort to complete the activity 2 The helper provides more than half the effort to complete the activity 1 Dependent. The helper does all the effort to complete an activity 7 Patient refused to complete or attempt activity 9 The patient did not perform the activity before the current illness or injury 88 Not attempted due to Medical conditions or safety concerns Grooming (FIM): 7 (Pt brushed hair and teeth standing at sink. ) Oral Hygiene (QC): 6 Bathing (FIM): 6 (Pt able to wash, rinse, and dry by self using grabbar, hand held shower and shower bench.) Bathing Location: L Arm, R Arm, L Upper Leg, R Upper Leg, L Lower Leg (including foot), R Lower Leg (including foot), Chest, Abdomen, Buttocks, Perineal Area Shower/Bathe Self (QC): 6 Upper Body (FIM): 6 (Pt able to don/doff upperbody clothing by self. Retrieved clothing using FWW.) Upper Body Dressing (QC): 6 Lower Body Dressing (FIM): 6 (Pt able to don/doff briefs and pants. Retrieved clothing using FWW.) Lower Body Dressing (QC): 6 On/Off Footwear (QC): 6 (Uses slip on shoes) Toileting (FIM): 6 (Using grabbars and FWW, pt able to complete.) Toileting Hygiene (QC): 6 Transfers (B, C, W/C) (FIM): 6 (Pt requires FWW. ) Toilet/Commode Transfer (FIM): 6 (Using grabbars and FWW for transfer.) Toilet Transfer (QC): 6 Shower Transfer(FIM): 6 (Pt requires FWW, grab bar, and shower bench. ) Other Treatment Pt demonstrated understanding of upper body theraband activity using medium resistance to increase strength for daily activity tasks, skilled instruction for proper technique. Pt participated in gross hand strengthening activity to increase hand strength for functional daily activity tasks. Pt laying in bed, call light and phone in reach. Pts needs met in room OT Short Term Goals Short Term Goals Time Frame: Jun 20, 2019 Eating(FIM): 6 Grooming(FIM): 5 Bathing(FIM): 4 Upper Body Dressing(FIM): 4 Lower Body Dressing(FIM): 4 Toileting(FIM): 4 Transfers (B,C,W/C) (FIM): 5 Toilet/Commode Transfer(FIM): 5 Shower Transfer(FIM): 4 Additional Short Term Goals: 1-Demonstrate ADL Tasks, 2-Verbalize Understanding, 3-ImproveStrength/Tay 1=Demonstrate adherence to instructed precautions during ADL tasks. 2=Patient will verbalize/demonstrate understanding of assistive devices/modifications for ADL. 3=Patient will improve strength/tolerance for activity to enable patient to perform ADL's. OT Snf Goals Code Enforcement Inspector Goals Time Frame: Jul 04, 2019 Eating (FIM): 6 (met-06/23/19) Eating (QC): 6 (met-06/23/19) Groomin (met-06/23/19) Oral Hygiene (QC): 6 (met-06/23/19) Bathing(FIM): 5 (met-06/23/19) Shower/Bathe Self (QC): 5 (met-06/23/19) Upper Body Dressing(FIM): 6 (met-06/23/19) Upper Body Dressing (QC): 6 (met-06/23/19) Lower Body Dressing(FIM): 5 (met-06/23/19) Lower Body Dressing (QC): 5 (met-06/23/19) On/Off Footwear (QC): 5 (met-06/23/19) Toileting(FIM): 6 (met-06/23/19) Toileting Hygiene (QC): 6 (met-06/23/19) Toilet/Commode Transfer(FIM): 6 (met-06/23/19) Toilet/Commode Transfer (QC): 6 (met-06/23/19) Shower Transfer(FIM): 5 (met-06/23/19) Additional Goals: 1-Demonstrate ADL Tasks, 2-Verbalize Understanding, 3- ImproveStrength/Tay 1=Demonstrate adherence to instructed precautions during ADL tasks. 2=Patient will verbalize/demonstrate understanding of assistive devices/modifications for ADL. 3=Patient will improve strength/tolerance for activity to enable patient to perform ADL's. OT Education/Plan Discharge Recommendations Plan/Recommendations: Continue POC Therapy Discharge Recommendati: Post Acute OT Treatment Plan/Plan of Care Patient would benefit from OT for education, treatment and training to promote independence in ADL's, mobility, safety and/or upper extremity function for ADL's. Plan of Care: ADL Retraining, Functional Mobility, Group Exercise/Act as Ind, UE Funct Exercise/Act Treatment Duration: Jul 04, 2019 Frequency: At least 5 of 7 days/Wk (IRF) Estimated Hrs Per Day: 1.5 hours per day Agreement: Yes Rehab Potential: Fair Time/GCodes Start Time: 07:00 Stop Time: 08:15 Total Time Billed (hr/min): 75 Billed Treatment Time 1 visit- ADL 4 (60 min) EX 1 (15 min) PORTER VICTORIA Jun 23, 2019 14:08
[2019-06-23] MEDS ORDERED: LACTATED RINGERS 1,000 ML IV ONE (16:11)
--- NOTE | 2019-06-23 16:18 | Progress Note - Surgery ---
Subjective Time Seen by a Provider: 15:59 Subjective/Events-last exam Pt seen and examined, she is complaining of stomach pain that started when she started the prep. She also still has knee pain and her cough. She denies any hematochezia or melena. Pt was eating fine over the weekend. Review of Systems General: No Chills, No Night Sweats Pulmonary: No Dyspnea; Cough Cardiovascular: No: Chest Pain, Palpitations Gastrointestinal: Abdominal Pain; No: Nausea, Vomiting Genitourinary: No Dysuria, No Frequency Musculoskeletal: other (knee pain) Objective Exam Vital Signs Date Time Temp Pulse Resp B/P (MAP) Pulse Ox O2 Delivery O2 Flow Rate FiO2 06/23/19 10:16 91 Room Air 06/23/19 05:57 97.6 70 16 143/76 (98) 96 Room Air 06/22/19 21:00 Room Air 06/22/19 20:07 89 132/67 (88) 06/22/19 19:08 98 Room Air 06/22/19 19:03 98 Room Air 06/22/19 17:00 97.3 70 16 144/80 (101) 96 Room Air I & O 06/23/19 07:00 Intake Total 800 ml Balance 800 ml Capillary Refill : General Appearance: WD/WN, Chronically ill, Mild Distress HEENT: PERRL/EOMI, Moist Mucous Membranes Neck: Full Range of Motion, Normal Inspection, Non Tender, Supple Respiratory: Chest Non Tender, No Accessory Muscle Use, No Respiratory Distress, Crackles, Wheezing Cardiovascular: Regular Rate, Rhythm, No Murmur Extremity: Normal Capillary Refill, Normal Inspection, Non Tender, Pedal Edema, Other Neurologic/Psychiatric: Alert, Oriented x3, Depressed Affect Skin: Warm/Dry Results Lab Laboratory Tests 06/22/19 16:51: Glucometer 261H 06/22/19 21:05: Glucometer 214H 06/23/19 05:30: Glucometer 156H 06/23/19 11:04: Glucometer 201H 06/23/19 15:26: Glucometer 205H Assessment/Plan Assessment/Plan Assessment/Plan Anemia Cough Abdominal pain Plan is to do an EGD and colonoscopy to work-up the anemia. At the same we can look at the back of her throat to check for a cause of her cough. Discussed the risks and complications with pt; including but not limited to pain, bleeding, infection and worst case scenario intestinal perforation or esophageal perforation. All questions answered to her satisfaction. Clinical Quality Measures DVT/VTE Risk/Contraindication: Risk Factor Score Per Nursin RFS Level Per Nursing on Admit: 4+=Very High VERONICA LIAO DO Jun 23, 2019 16:18
[2019-06-23] MEDS ORDERED: PROPOFOL INJECTION 50 ML IV ONE ×3 (16:20→16:57)
[2019-06-23] MEDS ORDERED: HURRICAINE EXT TUBE (BENZOCAINE) ONE (16:24)
[2019-06-23] MEDS ORDERED: proPOfol 200 MG/20 ML (DIPRIVAN) VIAL IV ONE (17:28)
[2019-06-23 18:00] VITALS: BP 144/76
[2019-06-23] MEDS: rOPINIRole 1 MG (REQUIP) TABLET PO SCH (20:12)
[2019-06-24] MEDS: oxyCODONE/APAP 10/325MG (PERCOCET 10) TABLET PO PRN ×5 (00:15→18:11)
[2019-06-24 05:53] VITALS: BP 143/55
[2019-06-24] MEDS ORDERED: predniSONE 10 MG TAB PO NR (06:00)
[2019-06-24] MEDS: inSUlin ASPART (NovoLOG) 1 UNIT/0.01 ML (CHARGE PER UNIT) SC SCH ×3 (06:25→17:33)
[2019-06-24] MEDS: HYDROXYCHLOROQUINE 200 MG (PLAQUENIL) TAB PO SCH ×2 (06:26→17:33)
[2019-06-24] MEDS: PANTOPRAZOLE 40 MG (PROTONIX) TAB PO SCH (06:26)
[2019-06-24] MEDS: CATHETER FLUSH 10 ML SYR IV SCH ×2 (06:26→15:58)
--- NOTE | 2019-06-24 06:38 | Progress Note - Hospitalist ---
[facility] 06/24/19 0638: Progress Note Prior to Mrs. Barros's hospitalization, she was fulfilling her ADL's independently as well as taking care of her until his passing in early 2016. She has also dealt with chronic pain issues, survived breast cancer, a fall that resulted in multiple fractures and liver laceration from which she became septic. She lives in a rancher styled home here in [place]. She's says that she has all of the necessities to take of herself in the house as well as it being easy to navigate. She has 1 son that lives in town who is able to help her out. She is a mother of 4 children, 13 grandchildren, and soon to be 6 great grandchildren. All of her sons are able to help her financially. 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 AI ISAAC DO 06/24/19 1130: Supervisory-Addendum Brief Verification & Attestation Participated in pt care: history, MDM, physical Personally performed: exam, history, MDM, supervision of care Care discussed with: Medical Student Procedures: n/a Results interpretation: Verified all documentation Verification and Attestation of Medical Student E/M Service A medical student performed and documented this service in my presence. I reviewed and verified all information documented by the medical student and made modifications to such information, when appropriate. I personally performed the physical exam and medical decision making. Ai Isaac Jun 24, 2019,11:30 [facility] Jun 24, 2019 06:38 AI ISAAC DO Jun 24, 2019 11:30
[2019-06-24] MEDS: RT-BUDESONIDE NEBS 0.5 MG/2ML (PULMICORT) AMP INH SCH (08:20)
[2019-06-24] MEDS: RT-ALBUTEROL/IPRATROPIUM 3 ML (DUONEB) VIAL INH SCH ×3 (08:20→15:26)
--- NOTE | 2019-06-24 08:37 | Cardiology Progress Note ---
Subjective Date Seen by Provider: Jun 24, 2019 Time Seen by Provider: 08:20 Subjective/Events-last exam Patient is sitting up in bed, no new complaint. Denies any chest pain or dys pnea. Objective-Cardiology Exam Last Set of Vital Signs Vital Signs 06/19/19 06/24/19 06/24/19 06/24/19 07:40 05:53 08:22 09:00 Temp 98.4 Pulse 81 Resp 18 B/P (MAP) 143/55 (84) Pulse Ox 93 O2 Delivery Room Air O2 Flow Rate 0.50 Capillary Refill : I&O Intake and Output 06/23/19 23:59 Intake Total 920 ml Balance 920 ml Intake Oral 920 ml # Voids 9 # Bowel Movements 5 General: Alert, Oriented X3, Cooperative HEENT: Atraumatic, PERRLA Neck: Supple, No JVD, No Thyromegaly Lungs: Clear to Auscultation, Normal Air Movement Heart: Regular Rate, Normal S1, Normal S2, No Murmurs Abdomen: Normal Bowel Sounds, Soft, No Tenderness, No Hepatosplenomegaly, No Masses Extremities: No Cyanosis, Normal Pulses, Other (right leg 2+ edemaTenderness) Skin: No Rashes, No Breakdown, No Significant Lesion Neuro: Normal Gait, Normal Speech, Strength at 5/5 X4 Ext, Normal Tone, Sensation Intact Psych/Mental Status: Mental Status NL, Mood NL A/P-Cardiology Admission Diagnosis chest pain CAD dyspnea HTN Assessment/Plan Chest pain, nonspecific etiology. No evidence of acute coronary syndrome. Low probability VQ scan for PE on 06/13/19. Denies any further episode or chest pain, continue to monitor Coronary artery disease, history of stent to the right coronary artery using 3.5 time 12 mm Ion stent done in 2009, last stress test was done in November 2018 showing no significant ischemia or infarction. Pleuritic chest pain, CT scan of the chest suggestive of left mass versus pneumonia, improved. Managed by Dr. Garcia. Shortness of breath, acute respiratory insufficiency, improved at this time. Continue to monitor Anemia, monitor H&H, aspirin was discontinued, Hemoccult +. Management per Dr. 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 Continue to monitor Status post right total knee arthroplasty done on June 09, 2019, recovering slowly, receiving physical therapy. Complaining of increased right leg pain, scheduled for RLE venous duplex later today. Hypertension, mildly elevated. Maintained on Labetalol and Norvasc. Has been on steroids. Continue to monitor. Hyperlipidemia, continue to monitor lipids Diabetes mellitus, followed and managed by primary care physician History of restless leg syndrome Clinical Quality Measures DVT/VTE Risk/Contraindication: Risk Factor Score Per Nursin RFS Level Per Nursing on Admit: 4+=Very High Supervisory-Addendum Brief Supervisory Addendum Participated in pt care: history, MDM, physical Personally performed: exam, history, MDM Care discussed with: PA Notes: Patient is feeling better, no new complaint Chest pain has resolved Coronary artery disease Hypertension Continue current medication, okay for discharge and arrange for follow-up in 4 weeks YRN ORTIZ Jun 24, 2019 08:37 ABBI GUTIERREZ MD Jun 24, 2019 14:25
--- NOTE | 2019-06-24 08:50 | NUR ---
PATROL LADY met with patient and son to review any last minute concerns regarding discharge plans today. Neither express concerns. Patient is eager to return home and patient's son intends to visit several times a day, as he did previously. MARQUIS has arranged [facility] for PT/OT/GLAUCOMA SPECIALIST/RN services, as patient requested this provider. PATROL LADY reviewed IMM and Patient Choice Letter, signatures provided on both. Patient's son intends to return after work today, around 6pm to provide transport home. Please see discharge summary for further information.
[2019-06-24] MEDS: MAGIC MOUTHWASH (ADULT) PO SCH ×12 (09:00→17:00)
[2019-06-24] MEDS: BRIMONIDINE 0.2% (ALPHAGAN) OPHTH SOLN 5 ML BTL OU SCH ×2 (09:00→15:59)
[2019-06-24] MEDS: DULoxetine 30 MG (CYMBALTA) CAP PO SCH (09:11)
[2019-06-24] MEDS: rOPINIRole 0.25 MG (REQUIP) TAB PO SCH (09:11)
[2019-06-24] MEDS: guaiFENesin (MUCINEX) 600 MG TAB PO SCH ×2 (09:11→09:39)
[2019-06-24] MEDS: FUROSEMIDE 40 MG (LASIX) TAB PO SCH (09:13)
[2019-06-24] MEDS: toPIRamate 25 MG (TOPAMAX) TAB PO SCH (09:14)
[2019-06-24] MEDS: amLODIPine 10 MG (NORVASC) TAB PO SCH (09:14)
[2019-06-24] MEDS: LABETALOL 200 MG (NORMODYNE) TAB PO SCH (09:14)
[2019-06-24] MEDS: DOCUSATE SODIUM 100 MG (COLACE) CAP PO SCH (09:37)
[2019-06-24] MEDS: POLYETHYLENE GLYCOL 17 GM (MIRALAX) PACK PO SCH (09:37)
[2019-06-24] MEDS: SENNA W/DOCUSATE (SENOKOT S) TABLET PO SCH (09:38)
[2019-06-24] MEDS: GABAPENTIN 300 MG (NEURONTIN) CAP PO SCH ×2 (09:38→14:05)
[2019-06-24] MEDS ORDERED: SENN-20 PO ×2 (09:49)
[2019-06-24] MEDS ORDERED: OXYC1TAB12 PO ×2 (09:49)
--- NOTE | 2019-06-24 09:52 | D/C HH Face to Face Order ---
D/C Face to Face Orders Reconcile Patient Problems Problems Reviewed?: Yes Instructions for Patient Via [facility] [place], Patient Instructions/FollowUp: [facility] in 1 week Physician to follow Patient: [facility] Discharge Diet for Home: ADA Diet Patient Problems: Right knee replacement s/p pneumonia Anemia severe Patient Data-Allergies,Ht & Wt Patient Allergies: Coded Allergies: clopidogrel (Verified Allergy, Severe, BLOOD CLOTS, 11/27/18) Penicillins (Verified Allergy, Mild, RASH, 11/27/18) carisoprodol (Verified Allergy, Mild, RASH, 11/27/18) cephalexin (Verified Allergy, Mild, RASH, 11/27/18) ketorolac (Verified Allergy, Mild, RASH, 11/27/18) prochlorperazine (Verified Allergy, Mild, RASH, 11/27/18) Carbamates (Verified Allergy, Unknown, Rash, 05/28/19) Height (Feet): 5 Height (Inches): 4.00 Weight (Pounds): 191 Weight (Ounces): 6.4 Home Health Need/Face to Face Date of Face to Face: Jun 24, 2019 Clinical Findings: Generalized weakness and fatigue, Instability, Muscle weakness, Pain with ambulation, Unsteady gait I have seen Pt [id number]: Yes Discharged To: Home Diagnosis/Conditions: Right knee replacement s/p pneumonia Anemia severe Patient is Homebound due to: Simran fall risk due to instabilty, Muscle weakness, Pain w/ambulation Homebound Status Due to the above stated illness, injury or surgical procedure (medical condition or diagnosis) and associated clinical findings, the patient is homebound because of his/her inability to leave home except with aid of a supportive device and/or person AND leaving the home requires a considerable and taxing effort or is medically contraindicated. Pt req the following assistanc: Walker Home Health Nursing Orders Home Health Services Order: Nursing Services, Air Brush Operator-Evaluate & Treat, Physical Therapy-Evaluate & Treat, Speech Language-Evaluate & Treat Certify Stmt I certify that this patient is under my care and that I, a nurse practitioner or a physician; a patient care assistant working with me, had a face to face encounter that - meets the physician face to face encounter requirements with this patient as dated. OLVIE ISAAC DO Jun 24, 2019 09:52
--- NOTE | 2019-06-24 09:54 | Discharge Summary ---
Diagnosis/Chief Complaint Date of Admission Jun 13, 2019 at 09:50 Date of Discharge Discharge Date: Jun 24, 2019 Discharge Diagnosis Plan: IRF protocol Zenker's diverticulum consultation with Dr Whalen and his management is appreciated Pain control but limit due to oversedation propensity Fall risk when drowsy Home meds Reviewed notes Consult Dr Joaquin for iron def anemia Complete abx for pneumonia Monitor hgb but improved Cognition deficit noted Occult + and Dr Whalen will perform endoscopies today Doppler negative for DVT Robitussin DM for cough (1) S/P total knee arthroplasty Status: Chronic (2) Acute kidney injury superimposed on chronic kidney disease Status: Acute (3) Type 2 diabetes mellitus Status: Chronic (4) Restless leg syndrome Status: Chronic (5) Essential hypertension Status: Chronic (6) Pleuritic chest pain Status: Acute (7) Coronary artery disease Status: Chronic (8) Left lower lobe pneumonia Status: Acute Qualifiers: Pneumonia type: due to unspecified organism Qualified Codes: J18.1 - Lobar pneumonia, unspecified organism (9) Drowsiness Status: Acute (10) Constipation Status: Acute Qualifiers: Constipation type: slow transit constipation Qualified Codes: K59.01 - Slow transit constipation (11) Sepsis due to pneumonia Status: Acute (12) Normocytic anemia Status: Acute (13) Hyperlipidemia Status: Chronic Qualifiers: Hyperlipidemia type: unspecified Qualified Codes: E78.5 - Hyperlipidemia, unspecified (14) Occult blood positive stool Discharge Summary Discharge Physical Examination Allergies: Coded Allergies: clopidogrel (Verified Allergy, Severe, BLOOD CLOTS, 11/27/18) Penicillins (Verified Allergy, Mild, RASH, 11/27/18) carisoprodol (Verified Allergy, Mild, RASH, 11/27/18) cephalexin (Verified Allergy, Mild, RASH, 11/27/18) ketorolac (Verified Allergy, Mild, RASH, 11/27/18) prochlorperazine (Verified Allergy, Mild, RASH, 11/27/18) Carbamates (Verified Allergy, Unknown, Rash, 05/28/19) Vitals & I&Os Vital Signs Date Time Temp Pulse Resp B/P (MAP) Pulse Ox O2 Delivery O2 Flow Rate FiO2 06/24/19 17:29 98.4 80 16 135/74 (94) 95 Room Air 06/19/19 07:40 0.50 General Appearance: Alert, Oriented X3, Cooperative Respiratory: Clear to Auscultation Cardiovascular: Regular Rate Abdominal: Normal Bowel Sounds Neuro: Normal Gait, Normal Speech, Strength at 5/5 X4 Ext Psych/Mental Status: Mental Status NL, Mood NL Hospital Course Was the Problem List Reviewed?: Yes Hospital Course: Pt has an uneventful but complex hospital course for 12 days after she was originally admitted then after 4 hrs in inpatient rehab transferred back up to the acute care floor due to hypoxia and tachypneic and found to have a left lower lobe pneumonia worsened to the point where she required aggressive treatment and close monitoring. Once she arrived back into inpatient rehab she participated in all therapies, was able to be weaned off oxygen completely, Dr. Joaquin was consulted and he started Aranesp but hemocccult positive stools prompted a colonoscopy and EGD showing ulcers in the stomach and four polyps were removed in the colon by Dr. Whalen so he will have a close follow up with her regarding the pathology reports. Pt was eating well and magic mouthwash that was initiated by Dr. Whalen helped the Edmond's Divert iculum and she overall felt well enough to regain enough function and be near prior level of functioning with use of a walker but still needed home health nurse, PT, OT, and speech to fully recover. She will see Dr. Joaquin, Dr. Whalen, Dr. Singh and have close follow up with PCP in one week. Labs (last 24 hrs) Laboratory Tests 06/13/19 15:24: Glucometer 140H 06/13/19 18:14: Troponin I < 0.028 06/13/19 20:51: Glucometer 133H 06/15/19 16:48: Glucometer 113H 06/15/19 20:03: Glucometer 133H 06/16/19 05:30: White Blood Count 7.6, Red Blood Count 2.50L, Hemoglobin 7.5L, Hematocrit 24L, Mean Corpuscular Volume 98, Mean Corpuscular Hemoglobin 30, Mean Corpuscular Hemoglobin Concent 31L, Red Cell Distribution Width 13.3, Platelet Count 326, Mean Platelet Volume 9.3, Neutrophils (%) (Auto) 66, Lymphocytes (%) (Auto) 18, Monocytes (%) (Auto) 12, Eosinophils (%) (Auto) 3, Basophils (%) (Auto) 0, Neutrophils # (Auto) 5.1, Lymphocytes # (Auto) 1.4, Monocytes # (Auto) 0.9, Eosinophils # (Auto) 0.3, Basophils # (Auto) 0.0, Sodium Level 140, Potassium Level 3.9, Chloride Level 106, Carbon Dioxide Level 22, Anion Gap 12, Blood Urea Nitrogen 25H, Creatinine 1.50H, Estimat Glomerular Filtration Rate 34, BUN/Creatinine Ratio 17, Glucose Level 127H, Calcium Level 7.9L, Corrected Calcium 8.8, Total Bilirubin 0.3, Aspartate Amino Transf (AST/SGOT) 16, Alanine Aminotransferase (ALT/SGPT) 16, Alkaline Phosphatase 168H, Total Protein 5.6L, Albumin 2.9L 06/16/19 05:39: Glucometer 134H 06/16/19 10:59: Glucometer 163H 06/16/19 15:24: Glucometer 143H 06/16/19 20:43: Glucometer 154H 06/17/19 05:10: White Blood Count 6.5, Red Blood Count 2.60L, Hemoglobin 7.8L, Hematocrit 26L, Mean Corpuscular Volume 98, Mean Corpuscular Hemoglobin 30, Mean Corpuscular Hemoglobin Concent 31L, Red Cell Distribution Width 13.1, Platelet Count 366, Mean Platelet Volume 9.4, Neutrophils (%) (Auto) 60, Lymphocytes (%) (Auto) 24, Monocytes (%) (Auto) 12, Eosinophils (%) (Auto) 3, Basophils (%) (Auto) 1, Neutrophils # (Auto) 3.9, Lymphocytes # (Auto) 1.6, Monocytes # (Auto) 0.8, Eosinophils # (Auto) 0.2, Basophils # (Auto) 0.1, Neutrophils % (Manual) 56, Lymphocytes % (Manual) 20, Monocytes % (Manual) 17, Eosinophils % (Manual) 5, Band Neutrophils 2, Anisocytosis MODERATE, Microcytosis SLIGHT, Absolute Reticulocyte Count 56, Percent Reticulocyte Count 2.17, Sodium Level 144, Potassium Level 3.7, Chloride Level 107, Carbon Dioxide Level 25, Anion Gap 12, Blood Urea Nitrogen 23H, Creatinine 1.37H, Estimat Glomerular Filtration Rate 38, BUN/Creatinine Ratio 17, Glucose Level 138H, Calcium Level 8.1L, Corrected Calcium 9.0, Iron Level 35, Total Iron Binding Capacity 191L, Unsaturated Iron Binding Capacity 156, Transferrin % Saturation 18, Ferritin 331.7H, Total Bilirubin 0.4, Aspartate Amino Transf (AST/SGOT) 13, Alanine Aminotransferase (ALT/SGPT) 21, Alkaline Phosphatase 156H, Total Protein 5.6L, Albumin 2.9L 06/17/19 11:22: Glucometer 150H 06/17/19 12:35: Stool Occult Blood Immunoassay POSITIVEH 06/17/19 16:36: Glucometer 183H 06/17/19 21:18: Glucometer 184H 06/18/19 05:54: Glucometer 147H 06/18/19 11:12: Glucometer 158H 06/18/19 20:43: Glucometer 283H 06/19/19 05:05: Glucometer 330H 06/19/19 06:55: White Blood Count 10.0, Red Blood Count 2.71L, Hemoglobin 8.3L, Hematocrit 27L, Mean Corpuscular Volume 98, Mean Corpuscular Hemoglobin 31, Mean Corpuscular Hemoglobin Concent 31L, Red Cell Distribution Width 13.3, Platelet Count 446H, Mean Platelet Volume 9.3, Neutrophils (%) (Auto) 84H, Lymphocytes (%) (Auto) 11L , Monocytes (%) (Auto) 5, Eosinophils (%) (Auto) 0, Basophils (%) (Auto) 0, Neutrophils # (Auto) 8.4H, Lymphocytes # (Auto) 1.1, Monocytes # (Auto) 0.5, Eosinophils # (Auto) 0.0, Basophils # (Auto) 0.0, Sodium Level 142, Potassium Level 4.1, Chloride Level 105, Carbon Dioxide Level 22, Anion Gap 15H, Blood Urea Nitrogen 21H, Creatinine 1.41H, Estimat Glomerular Filtration Rate 37, BUN/Creatinine Ratio 15, Glucose Level 293H, Calcium Level 8.3L, Corrected Calcium 8.9, Total Bilirubin 0.3, Aspartate Amino Transf (AST/SGOT) 14, Alanine Aminotransferase (ALT/SGPT) 19, Alkaline Phosphatase 156H, Total Protein 5.8L, Albumin 3.2 06/19/19 11:00: Glucometer 249H 06/19/19 15:22: Glucometer 272H 06/19/19 20:30: Glucometer 317H 06/20/19 05:30: Glucometer 340H 06/20/19 11:01: Glucometer 298H 06/20/19 16:05: Glucometer 384H 06/20/19 20:13: Glucometer 232H 06/21/19 05:10: Glucometer 349H 06/21/19 11:12: Glucometer 354H 06/21/19 17:00: Glucometer 391H 06/21/19 20:21: Glucometer 280H 06/22/19 05:09: Glucometer 207H 06/22/19 06:00: White Blood Count 14.1H, Red Blood Count 2.96L, Hemoglobin 9.0L, Hematocrit 29L, Mean Corpuscular Volume 99, Mean Corpuscular Hemoglobin 30, Mean Corpuscular Hemoglobin Concent 31L, Red Cell Distribution Width 14.0, Platelet Count 510H, Mean Platelet Volume 8.7, Neutrophils (%) (Auto) 69, Lymphocytes (%) (Auto) 22, Monocytes (%) (Auto) 7, Eosinophils (%) (Auto) 2, Basophils (%) (Auto) 0, Neutrophils # (Auto) 9.7H, Lymphocytes # (Auto) 3.1, Monocytes # (Auto) 1.0, Eosinophils # (Auto) 0.2, Basophils # (Auto) 0.0, Neutrophils % (Manual) 70, Lymphocytes % (Manual) 22, Monocytes % (Manual) 8, Sodium Level 142, Potassium Level 3.6, Chloride Level 103, Carbon Dioxide Level 28, Anion Gap 11, Blood Urea Nitrogen 32H, Creatinine 1.57H, Estimat Glomerular Filtration Rate 33, BUN/Creatinine Ratio 20, Glucose Level 193H, Calcium Level 7.8L, Corrected Calcium 8.4L, Total Bilirubin 0.4, Aspartate Amino Transf (AST/SGOT) 12, Alanine Aminotransferase (ALT/SGPT) 16, Alkaline Phosphatase 154H, Total Protein 5.6L, Albumin 3.2 06/22/19 11:17: Glucometer 394H 06/22/19 16:51: Glucometer 261H 06/22/19 21:05: Glucometer 214H 06/23/19 05:30: Glucometer 156H 06/23/19 11:04: Glucometer 201H 06/23/19 15:26: Glucometer 205H 06/23/19 20:42: Glucometer 268H 06/24/19 05:33: Glucometer 254H 06/24/19 11:03: Glucometer 275H 06/24/19 16:04: Glucometer 280H Pending Labs Laboratory Tests 06/13/19 15:24: Glucometer 140 06/13/19 18:14: Troponin I < 0.028 06/13/19 20:51: Glucometer 133 06/15/19 16:48: Glucometer 113 06/15/19 20:03: Glucometer 133 06/16/19 05:30: White Blood Count 7.6, Red Blood Count 2.50, Hemoglobin 7.5, Hematocrit 24, Mean Corpuscular Volume 98, Mean Corpuscular Hemoglobin 30, Mean Corpuscular Hemoglobin Concent 31, Red Cell Distribution Width 13.3, Platelet Count 326, Mean Platelet Volume 9.3, Neutrophils (%) (Auto) 66, Lymphocytes (%) (Auto) 18, Monocytes (%) (Auto) 12, Eosinophils (%) (Auto) 3, Basophils (%) (Auto) 0, Neutrophils # (Auto) 5.1, Lymphocytes # (Auto) 1.4, Monocytes # (Auto) 0.9, Eosinophils # (Auto) 0.3, Basophils # (Auto) 0.0, Sodium Level 140, Potassium Level 3.9, Chloride Level 106, Carbon Dioxide Level 22, Anion Gap 12, Blood Urea Nitrogen 25, Creatinine 1.50, Estimat Glomerular Filtration Rate 34, BUN/Creatinine Ratio 17, Glucose Level 127, Calcium Level 7.9, Corrected Calcium 8.8, Total Bilirubin 0.3, Aspartate Amino Transf (AST/SGOT) 16, Alanine Aminotransferase (ALT/SGPT) 16, Alkaline Phosphatase 168, Total Protein 5.6, Albumin 2.9 06/16/19 05:39: Glucometer 134 06/16/19 10:59: Glucometer 163 06/16/19 15:24: Glucometer 143 06/16/19 20:43: Glucometer 154 06/17/19 05:10: White Blood Count 6.5, Red Blood Count 2.60, Hemoglobin 7.8, Hematocrit 26, Mean Corpuscular Volume 98, Mean Corpuscular Hemoglobin 30, Mean Corpuscular Hemoglobin Concent 31, Red Cell Distribution Width 13.1, Platelet Count 366, Mean Platelet Volume 9.4, Neutrophils (%) (Auto) 60, Lymphocytes (%) (Auto) 24, Monocytes (%) (Auto) 12, Eosinophils (%) (Auto) 3, Basophils (%) (Auto) 1, Neutrophils # (Auto) 3.9, Lymphocytes # (Auto) 1.6, Monocytes # (Auto) 0.8, Eosinophils # (Auto) 0.2, Basophils # (Auto) 0.1, Neutrophils % (Manual) 56, Lymphocytes % (Manual) 20, Monocytes % (Manual) 17, Eosinophils % (Manual) 5, Band Neutrophils 2, Anisocytosis MODERATE, Microcytosis SLIGHT, Absolute Reticulocyte Count 56, Percent Reticulocyte Count 2.17, Sodium Level 144, Potassium Level 3.7, Chloride Level 107, Carbon Dioxide Level 25, Anion Gap 12, Blood Urea Nitrogen 23, Creatinine 1.37, Estimat Glomerular Filtration Rate 38, BUN/Creatinine Ratio 17, Glucose Level 138, Calcium Level 8.1, Corrected Calcium 9.0, Iron Level 35, Total Iron Binding Capacity 191, Unsaturated Iron Binding Capacity 156, Transferrin % Saturation 18, Ferritin 331.7, Total Bilirubin 0.4, Aspartate Amino Transf (AST/SGOT) 13, Alanine Aminotransferase (ALT/SGPT) 21, Alkaline Phosphatase 156, Total Protein 5.6, Albumin 2.9 06/17/19 11:22: Glucometer 150 06/17/19 12:35: Stool Occult Blood Immunoassay POSITIVE 06/17/19 16:36: Glucometer 183 06/17/19 21:18: Glucometer 184 06/18/19 05:54: Glucometer 147 06/18/19 11:12: Glucometer 158 06/18/19 20:43: Glucometer 283 06/19/19 05:05: Glucometer 330 06/19/19 06:55: White Blood Count 10.0, Red Blood Count 2.71, Hemoglobin 8.3, Hematocrit 27, Mean Corpuscular Volume 98, Mean Corpuscular Hemoglobin 31, Mean Corpuscular Hemoglobin Concent 31, Red Cell Distribution Width 13.3, Platelet Count 446, Mean Platelet Volume 9.3, Neutrophils (%) (Auto) 84, Lymphocytes (%) (Auto) 11, Monocytes (%) (Auto) 5, Eosinophils (%) (Auto) 0, Basophils (%) (Auto) 0, Neutrophils # (Auto) 8.4, Lymphocytes # (Auto) 1.1, Monocytes # (Auto) 0.5, Eosinophils # (Auto) 0.0, Basophils # (Auto) 0.0, Sodium Level 142, Potassium Level 4.1, Chloride Level 105, Carbon Dioxide Level 22, Anion Gap 15, Blood Urea Nitrogen 21, Creatinine 1.41, Estimat Glomerular Filtration Rate 37, BUN/Creatinine Ratio 15, Glucose Level 293, Calcium Level 8.3, Corrected Calcium 8.9, Total Bilirubin 0.3, Aspartate Amino Transf (AST/SGOT) 14, Alanine Aminotransferase (ALT/SGPT) 19, Alkaline Phosphatase 156, Total Protein 5.8, Albumin 3.2 06/19/19 11:00: Glucometer 249 06/19/19 15:22: Glucometer 272 06/19/19 20:30: Glucometer 317 06/20/19 05:30: Glucometer 340 06/20/19 11:01: Glucometer 298 06/20/19 16:05: Glucometer 384 06/20/19 20:13: Glucometer 232 06/21/19 05:10: Glucometer 349 06/21/19 11:12: Glucometer 354 06/21/19 17:00: Glucometer 391 06/21/19 20:21: Glucometer 280 06/22/19 05:09: Glucometer 207 06/22/19 06:00: White Blood Count 14.1, Red Blood Count 2.96, Hemoglobin 9.0, Hematocrit 29, Mean Corpuscular Volume 99, Mean Corpuscular Hemoglobin 30, Mean Corpuscular Hemoglobin Concent 31, Red Cell Distribution Width 14.0, Platelet Count 510, Mean Platelet Volume 8.7, Neutrophils (%) (Auto) 69, Lymphocytes (%) (Auto) 22, Monocytes (%) (Auto) 7, Eosinophils (%) (Auto) 2, Basophils (%) (Auto) 0, Neutrophils # (Auto) 9.7, Lymphocytes # (Auto) 3.1, Monocytes # (Auto) 1.0, Eosinophils # (Auto) 0.2, Basophils # (Auto) 0.0, Neutrophils % (Manual) 70, Lymphocytes % (Manual) 22, Monocytes % (Manual) 8, Sodium Level 142, Potassium Level 3.6, Chloride Level 103, Carbon Dioxide Level 28, Anion Gap 11, Blood Urea Nitrogen 32, Creatinine 1.57, Estimat Glomerular Filtration Rate 33, BUN/Creatinine Ratio 20, Glucose Level 193, Calcium Level 7.8, Corrected Calcium 8.4, Total Bilirubin 0.4, Aspartate Amino Transf (AST/SGOT) 12, Alanine Aminotra nsferase (ALT/SGPT) 16, Alkaline Phosphatase 154, Total Protein 5.6, Albumin 3.2 06/22/19 11:17: Glucometer 394 06/22/19 16:51: Glucometer 261 06/22/19 21:05: Glucometer 214 06/23/19 05:30: Glucometer 156 06/23/19 11:04: Glucometer 201 06/23/19 15:26: Glucometer 205 06/23/19 20:42: Glucometer 268 06/24/19 05:33: Glucometer 254 06/24/19 11:03: Glucometer 275 06/24/19 16:04: Glucometer 280 Discharge Home Medications: Active Scripts Active Senna-Time S Tablet (Sennosides/Docusate Sodium) 1 Each Tablet 1 Ea PO BID Percocet 10-325 mg Tablet (Oxycodone HCl/Acetaminophen) 1 Each Tablet 1 Tab PO Q4H PRN Reported Gabapentin 300 Mg Capsule 300 Mg PO BID Refresh Optive Gel Eye Drops (Carboxymethylcellulos/Glycerin) 10 Ml Drops.gel 1 Drop OD TID USE RIGHT BEFORE BRIMONIDINE EYE DROPS Vppofm-Jelk-Gnszhbsftni-Codein (Butalbit/Acetamin/Caff/Codeine) 1 Each Capsule 1 Cap PO TID PRN Furosemide 40 Mg Tablet 40 Mg PO DAILY Cymbalta (Duloxetine HCl) 60 Mg Capsule.dr 60 Mg PO DAILY TAKES ALONG WITH 30MG CAPSULE FOR A TOTAL DAILY DOSE OF 90MG Brimonidine Tartrate 5 Ml Btl 1 Drop OU TID 0.15% Hydroxychloroquine Sulfate 200 Mg Tablet 400 Mg PO DAILY Folic Acid 1 Mg Tablet 1 Mg PO DAILY Glipizide 5 Mg Tablet 5 Mg PO DAILY Baclofen 10 Mg Tablet 10 Mg PO TID PRN Tramadol HCl 50 Mg Tablet 100 Mg PO Q6H PRN Cymbalta (Duloxetine HCl) 30 Mg Capsule.dr 30 Mg PO DAILY TAKE ALONG WITH 60MG CAP FOR A TOTAL DAILY DOSE OF 90MG Topiramate 50 Mg Tablet 75 Mg PO DAILY TAKE 1 & 1/2 OF 50MG TAB Amlodipine Besylate 10 Mg Tablet 10 Mg PO DAILY Topiramate 25 Mg Tablet 25 Mg PO HS Pantoprazole Sodium 40 Mg Tablet.dr 40 Mg PO DAILY Ropinirole HCl 0.5 Mg Tablet 0.5 Mg PO DAILY Ropinirole HCl 0.5 Mg Tablet 1 Mg PO HS TAKE 2 (.5MG) TABS Atorvastatin Calcium 80 Mg Tablet 40 Mg PO HS TAKE 1/2 OF 80MG TAB Labetalol HCl 200 Mg Tablet 400 Mg PO DAILY TAKE 2 (200MG) TABS Instructions to patient/family Please see electronic discharge instructions given to patient. Diagnosis/Problems Diagnosis/Problems (1) S/P total knee arthroplasty Status: Chronic (2) Acute kidney injury superimposed on chronic kidney disease Status: Acute (3) Type 2 diabetes mellitus Status: Chronic (4) Restless leg syndrome Status: Chronic (5) Essential hypertension Status: Chronic (6) Pleuritic chest pain Status: Acute (7) Coronary artery disease Status: Chronic (8) Left lower lobe pneumonia Status: Acute Qualifiers: Qualified Codes: J18.1 - Lobar pneumonia, unspecified organism (9) Drowsiness Status: Acute (10) Constipation Status: Acute Qualifiers: Qualified Codes: K59.01 - Slow transit constipation (11) Sepsis due to pneumonia Status: Acute (12) Normocytic anemia Status: Acute (13) Hyperlipidemia Status: Chronic Qualifiers: Qualified Codes: E78.5 - Hyperlipidemia, unspecified (14) Occult blood positive stool Clinical Quality Measures DVT/VTE Risk/Contraindication: Risk Factor Score Per Nursin RFS Level Per Nursing on Admit: 4+=Very High OLIVE ISAAC DO Jun 24, 2019 09:54
--- NOTE | 2019-06-24 10:36 | Therapy Team Discharge Summary ---
Therapy Discharge Summary Discharge Recommendations Date of Discharge Therapy D/C Recommendations: Physical Therapy Home Care Occupational Therapy Decreased Activ Tolerance, Decreased Safety Aware Speech-Language Pathology The patient was admitted to the [facility] s/p TKR for skilled therapy. At that time she was given the SLUMS with a moderate dementia range. ST has provided therapy with focus on safety awareness, memory and problem solving. The patient was able to meet all of her goals for ST. She is discharging to her home with home health services. She is discharging from skilled ST as well. PT Inventory Control Associate Goals Prison Goals PT Inventory Control Associate Goals Time Frame: Jul 10, 2019 Transfers (B,C,W/C) (FIM): 7 Roll Left to Right (QC): 6 (met) Sit to Lying (QC): 6 (met) Lying-Sitting on Side/Bed(QC): 6 (met) Sit to Stand (QC): 6 (met) Chair/Sqh-he-Fjemi Xfer(QC): 6 Car Transfer (QC): 6 Does the Patient Walk: Yes Gait (FIM): 6 Gait distance (FIM): 3=150 ft Walk 10 feet (QC): 6 Walk 10ft-Uneven Surface(QC): 6 Walk 50ft with 2 Turns (QC): 6 Walk 150 ft (QC): 6 Gait Assistive Device: FWW Does the Pt use WC or Scooter?: No Stairs (FIM): 5 # of Steps: 4 1 Step (curb) (QC): 6 4 Steps (QC): 6 12 Steps (QC): 9 Picking up an Object (QC): 4 OT Inventory Control Associate Goals Inventory Control Associate Goals Time Frame: Jul 04, 2019 Eating (FIM): 6 (met-06/23/19) Eating (QC): 6 (met-06/23/19) Oral Hygiene (QC): 6 (met-06/23/19) Grooming(FIM): 6 (met-06/23/19) Bathing(FIM): 5 (met-06/23/19) Shower/Bathe Self (QC): 5 (met-06/23/19) Upper Body Dressing(FIM): 6 (met-06/23/19) Upper Body Dressing (QC): 6 (met-06/23/19) Lower Body Dressing(FIM): 5 (met-06/23/19) Lower Body Dressing (QC): 5 ([facility]-06/23/19) On/Off Footwear (QC): 5 (met-06/23/19) Toileting(FIM): 6 ([facility]-06/23/19) Toileting Hygiene (QC): 6 ([facility]-06/23/19) Toilet/Commode Transfer(FIM): 6 ([facility]-06/23/19) Toilet/Commode Transfer (QC): 6 ([facility]-06/23/19) Shower Transfer(FIM): 5 ([facility]-06/23/19) Additional Goals: 1-Demonstrate ADL Tasks, 2-Verbalize Understanding, 3- ImproveStrength/Tay 1=Demonstrate adherence to instructed precautions during ADL tasks. 2=Patient will verbalize/demonstrate understanding of assistive devices/modifications for ADL. 3=Patient will improve strength/tolerance for activity to enable patient to perform ADL's. Speech Inventory Control Associate Goals Prison Goals The patient will improve safety awareness and independence in order to safely return home. Met VÍCTOR BROTHERS Jun 24, 2019 10:36
--- NOTE | 2019-06-24 10:45 | Therapy Team Discharge Summary ---
Therapy Discharge Summary Discharge Recommendations Date of Discharge Therapy D/C Recommendations: Physical Therapy Home Care Physical Therapy Patient came to rehab following a right TKA. Upon evaluation patient performs bed mobility with mod to max assist, transfers min to mod assist, and ambulated 10' with a rolling walker with mod assist. Patient has been performing bed mobility and transfer training, balance and endurance training, functional strengthening, stair training, gait training, and education. She has made fair progress but has only met her bed mobility halfway goals. Now, patient performed bed mobility with mod I, supine <-> sit with mod I, sit <-> stand with SBA, transfers with SBA, car transfer SBA, ambulate 200' with a rolling walker with SBA (including 50' with at least 2 turns of 90 degrees and 10' over an uneven surface), and can go up and down 8 steps using 2 handrails with SBA. Patient is discharging from this facility today and will be discharged from PT at this time. Occupational Therapy Decreased Activ Tolerance, Decreased Safety Aware PT Coordinator Of Rehabilitation Services Goals Intermediate Goals PT Intermediate Goals Time Frame: Jul 10, 2019 Transfers (B,C,W/C) (FIM): 7 Roll Left to Right (QC): 6 (met) Sit to Lying (QC): 6 (met) Lying-Sitting on Side/Bed(QC): 6 (met) Sit to Stand (QC): 6 (met) Chair/Avs-eo-Ivahk Xfer(QC): 6 Car Transfer (QC): 6 Does the Patient Walk: Yes Gait (FIM): 6 Gait distance (FIM): 3=150 ft Walk 10 feet (QC): 6 Walk 10ft-Uneven Surface(QC): 6 Walk 50ft with 2 Turns (QC): 6 Walk 150 ft (QC): 6 Gait Assistive Device: FWW Does the Pt use WC or Scooter?: No Stairs (FIM): 5 # of Steps: 4 1 Step (curb) (QC): 6 4 Steps (QC): 6 12 Steps (QC): 9 Picking up an Object (QC): 4 OT Intermediate Goals Intermediate Goals Time Frame: Jul 04, 2019 Eating (FIM): 6 (met-06/23/19) Eating (QC): 6 (met-06/23/19) Oral Hygiene (QC): 6 (met-06/23/19) Grooming(FIM): 6 (06/23/19) Bathing(FIM): 5 (06/23/19) Shower/Bathe Self (QC): 5 (06/23/19) Upper Body Dressing(FIM): 6 (06/23/19) Upper Body Dressing (QC): 6 (06/23/19) Lower Body Dressing(FIM): 5 (06/23/19) Lower Body Dressing (QC): 5 (06/23/19) On/Off Footwear (QC): 5 (06/23/19) Toileting(FIM): 6 (06/23/19) Toileting Hygiene (QC): 6 (06/23/19) Toilet/Commode Transfer(FIM): 6 (06/23/19) Toilet/Commode Transfer (QC): 6 (06/23/19) Shower Transfer(FIM): 5 (06/23/19) Additional Goals: 1-Demonstrate ADL Tasks, 2-Verbalize Understanding, 3- ImproveStrength/Tay 1=Demonstrate adherence to instructed precautions during ADL tasks. 2=Patient will verbalize/demonstrate understanding of assistive devices/modifications for ADL. 3=Patient will improve strength/tolerance for activity to enable patient to perform ADL's. Speech Intermediate Goals Intermediate Goals The patient will improve safety awareness and independence in order to safely return home. Met VIOLET GONZALES PT Jun 24, 2019 10:45
--- NOTE | 2019-06-24 11:39 | Therapy Team Discharge Summary ---
Therapy Discharge Summary Discharge Recommendations Date of Discharge Therapy D/C Recommendations: Physical Therapy Home Care Occupational Therapy Pt admitted to ARU following elective right TKA. On admission pt required mod assist for toilet transfer, total assist for toileting, and max assist for LE dressing. Skilled OT intervention focused on ADL training, transfers, strengthening, and safety. Pt made good progress with therapy and by discharge is completing grooming independently and other basic ADLs and transfers with modified independence. Pt met all OT LTG. D/C ARU OT at this time. Decreased Activ Tolerance, Decreased Safety Aware PT Penitentiary Goals Casing Wringer Operator Goals PT Casing Wringer Operator Goals Time Frame: Jul 10, 2019 Transfers (B,C,W/C) (FIM): 7 Roll Left to Right (QC): 6 (met) Sit to Lying (QC): 6 (met) Lying-Sitting on Side/Bed(QC): 6 (met) Sit to Stand (QC): 6 (met) Chair/Beb-rz-Rmhxy Xfer(QC): 6 Car Transfer (QC): 6 Does the Patient Walk: Yes Gait (FIM): 6 Gait distance (FIM): 3=150 ft Walk 10 feet (QC): 6 Walk 10ft-Uneven Surface(QC): 6 Walk 50ft with 2 Turns (QC): 6 Walk 150 ft (QC): 6 Gait Assistive Device: FWW Does the Pt use WC or Scooter?: No Stairs (FIM): 5 # of Steps: 4 1 Step (curb) (QC): 6 4 Steps (QC): 6 12 Steps (QC): 9 Picking up an Object (QC): 4 OT Casing Wringer Operator Goals Penitentiary Goals Time Frame: Jul 04, 2019 Eating (FIM): 6 (met-06/23/19) Eating (QC): 6 (met-06/23/19) Oral Hygiene (QC): 6 (met-06/23/19) Grooming(FIM): 6 (met-06/23/19) Bathing(FIM): 5 (met-06/23/19) Shower/Bathe Self (QC): 5 (met-06/23/19) Upper Body Dressing(FIM): 6 (met-06/23/19) Upper Body Dressing (QC): 6 (met-06/23/19) Lower Body Dressing(FIM): 5 (met-06/23/19) Lower Body Dressing (QC): 5 ([facility]-06/23/19) On/Off Footwear (QC): 5 ([facility]-06/23/19) Toileting(FIM): 6 ([facility]-06/23/19) Toileting Hygiene (QC): 6 ([facility]-06/23/19) Toilet/Commode Transfer(FIM): 6 ([facility]-06/23/19) Toilet/Commode Transfer (QC): 6 ([facility]-06/23/19) Shower Transfer(FIM): 5 ([facility]-06/23/19) Additional Goals: 1-Demonstrate ADL Tasks, 2-Verbalize Understanding, 3- ImproveStrength/Tay 1=Demonstrate adherence to instructed precautions during ADL tasks. 2=Patient will verbalize/demonstrate understanding of assistive devic es/modifications for ADL. 3=Patient will improve strength/tolerance for activity to enable patient to perform ADL's. Speech Casing Wringer Operator Goals Casing Wringer Operator Goals The patient will improve safety awareness and independence in order to safely return home. Met VIOLA LONG OT Jun 24, 2019 11:39
--- NOTE | 2019-06-24 15:24 | NUR ---
provided prayer and Communion.
--- NOTE | 2019-06-24 15:50 | NUR ---
Spoke with Dr. Meneses's nurse. Follow up appointment made for patient post discharge. Orders received to remove venkata. 28 venkata removed from patient's right knee, patient tolerated well.
[2019-06-24] MEDS ORDERED: HEParin (CENTRAL IV FLUSH) 500 UNIT/5 ML SYR IV NR (16:50)
[2019-06-24 17:29] VITALS: BP 135/74
--- NOTE | 2019-06-29 11:20 | Physician Query Clarification ---
PQ-Intro New Diagnosis Admission/Discharge Admission Date: Jun 13, 2019 at 09:50 Discharge Date: Jun 24, 2019 at 18:20 The medical record reflects the following clinical scenario: History/Risk Factors: S/P RT TKR Clinical Findings: rt knee pain Treatment: Rt TKR Question: What condition is the reason for the TKR? Please document a response in the Progress Noter or Discharge Summary. 1. rt knee osteoarthritis 2. rt knee pain unknown etiology 3. Other, with explanation of the clinical findings. 4. Clinically undetermined, no explanation for the clinical findings. PHYSICIAN RESPONSE What condition reflects above: 1 Please remember a lack of response to the above will prompt a phone page by CDI/Coding staff. In responding to this query, please exercise your independent professional judgment. The purpose of this communication is to more accurately reflect the complexity of your patients condition. The fact that a question is asked does not imply that any particular answer is desired or expected. Thank you for your timely response to this clarification. Requestors name: Richard THIS PHYSICIAN QUERY FORM IS A PERMANENT PART OF THE MEDICAL RECORD RICHARD CHENEY Jun 29, 2019 11:20 OLIVE ISAAC DO Jun 29, 2019 20:33
== END 2019-06-24 18:20 | disposition home health service (06) | DRG 559 ==
PROVIDERS: ADMIT Internal Medicine; ATTEND Internal Medicine
DX: Z47.1 Aftercare following joint replacement surgery (principal); Z96.651 Presence of right artificial knee joint; J18.1 Lobar pneumonia, unspecified organism; J20.9 Acute bronchitis, unspecified; J98.11 Atelectasis; N17.9 Acute kidney failure, unspecified; I12.9 Hypertensive chronic kidney disease with stage 1 through stage 4 chronic kidney disease, or unspecified chronic kidney disease; N18.3 Chronic kidney disease, stage 3 (moderate); R13.12 Dysphagia, oropharyngeal phase; E11.21 Type 2 diabetes mellitus with diabetic nephropathy; D50.9 Iron deficiency anemia, unspecified; K22.5 Diverticulum of esophagus, acquired; K25.4 Chronic or unspecified gastric ulcer with hemorrhage; K63.5 Polyp of colon; K59.01 Slow transit constipation; I25.10 Atherosclerotic heart disease of native coronary artery without angina pectoris; G25.81 Restless legs syndrome; K21.9 Gastro-esophageal reflux disease without esophagitis; E78.5 Hyperlipidemia, unspecified; E89.0 Postprocedural hypothyroidism; I25.2 Old myocardial infarction; Z85.3 Personal history of malignant neoplasm of breast; Z95.5 Presence of coronary angioplasty implant and graft; Z90.710 Acquired absence of both cervix and uterus
CPT/HCPCS: 36415; 71046; 80053; 82274; 82728; 82962; 83540; 84484; 85007; 85025; 85027; 85045; 93005; 94640; 94760

== ENCOUNTER 2019-06-13 18:29 | Observation (INO) | payer MEDICARE ==
[~2019-06-13] VITALS: Ht 162.6 cm; Wt 98.1 kg
[~2019-06-13 18:29] MED LIST changes: -ACETAMINOPHEN 500 MG TAB (TYLENOL) PO PRN; -ALPRAZolam 0.25 MG (XANAX) TAB PO PRN; -CALCIUM CARBONATE 500 MG (TUMS) TAB.CHEW PO PRN; -DOCUSATE SODIUM 100 MG (COLACE) CAP PO PRN; +LEVO750T39 PO; -LOPERAMIDE 2 MG (IMODIUM) TABLET PO PRN; -MELATONIN 3 MG TABLET PO PRN; -ONDANSETRON 4 MG (ZOFRAN) ORAL DISSOLVE TAB PO PRN; -SENNA W/DOCUSATE (SENOKOT S) TABLET PO SCH; -diphenhydrAMINE 25 MG TAB (BENADRYL) PO PRN
[2019-06-13 18:30] VITALS: BP 129/57
[2019-06-13] MEDS ORDERED: morphine INJ 4 MG/ML 1 ML (VIAL/SYRINGE) IVP PRN (18:45)
[2019-06-13] MEDS ORDERED: diphenhydrAMINE 50 MG/ML INJ (BENADRYL) IV PRN (18:45)
[2019-06-13] MEDS ORDERED: MELATONIN 3 MG TABLET PO PRN (18:45)
[2019-06-13] MEDS ORDERED: BACLOFEN 10 MG (LIORESAL) TAB PO PRN (18:45)
[2019-06-13] MEDS ORDERED: ACETAMINOPHEN 325 MG TABLET PO PRN (18:45)
[2019-06-13] MEDS ORDERED: BISACODYL 10 MG SUPP (DULCOLAX) PR PRN (18:45)
--- NOTE | 2019-06-13 18:47 | NUR ---
KEO AGUIRRE admitted to room CU3-1, with an admitting diagnosis of Chest Pain, on 06/13/19 from via bed, accompanied by staff.KEO AGUIRRE introduced to surroundings, call light, bed controls, phone, TV, temperature control, lights, meal times, smoking policy, visitor policy, side rail policy, bathrooms and showers. Patient Rights given to patient in the handbook. KEO AGUIRRE verbalizes understanding that [facility] is not responsible for the loss or damage to any personal effects or valuables that are kept in the patients posession during their hospitalization. The following Patient Care Plans were discussed with the pt: Discharge Planning. KEO AGUIRRE verbalizes understanding of Interdisciplinary Patient Education. Patient and/or family were informed about the Rapid Response Team and its purpose.
[2019-06-13 19:00] VITALS: BP 111/61
--- NOTE | 2019-06-13 19:00 | NUR ---
DR. ZAVALA AND DR. VOGEL AT BEDSIDE ASSESSING PT. DR. ZAVALA GAVE ORDERS TO D/C HEPARIN AND START ON LOVENOX BID PHARMACY TO DOSE TO WEIGHT. DR. VOGEL GAVE ORDERS FOR STAT CHEST X-RAY.
--- NOTE | 2019-06-13 19:03 | Consultation-Cardiology ---
HPI-Cardiology Cardiology Consultation: Date of Consultation 06/13/19 Time Seen by a Provider: 18:40 Date of Admission Attending Physician Ai Barnes DO Admitting Physician lAlie Duque DO Consulting Physician ERWIN ZAVALA MD, MA, FACP, FACC, FSCAI, CCDS Physician requesting consult: Dr Barnes HPI: Chief Complaint: CC: Chest discomfort HPI: 68 yo woman DRV-Bwctbq-Yqqrmx Hx Patient Social History 2nd Hand Smoke Exposure: No Recent Foreign Travel: No Immunizations Up To Date Date of Pneumonia Vaccine: Jul 29, 2017 Date of Influenza Vaccine: Jul 28, 2018 Past Medical History PMH As described under Assessment. Family Medical History Family History: Hypertension G8 BROTHER Not obtainable due to adoption 19 FATHER Allergies and Home Medications Allergies Coded Allergies: clopidogrel (Verified Allergy, Severe, BLOOD CLOTS, 11/27/18) Penicillins (Verified Allergy, Mild, RASH, 11/27/18) carisoprodol (Verified Allergy, Mild, RASH, 11/27/18) cephalexin (Verified Allergy, Mild, RASH, 11/27/18) ketorolac (Verified Allergy, Mild, RASH, 11/27/18) prochlorperazine (Verified Allergy, Mild, RASH, 11/27/18) Carbamates (Verified Allergy, Unknown, Rash, 05/28/19) Home Medications Amlodipine Besylate 10 Mg Tablet, 10 MG PO DAILY, (Reported) Atorvastatin Calcium 80 Mg Tablet, 40 MG PO HS, (Reported) TAKE 1/2 OF 80MG TAB Baclofen 10 Mg Tablet, 10 MG PO TID PRN for MUSCLE SPASMS, (Reported) Brimonidine Tartrate 5 Ml Btl, 1 DROP OU TID, (Reported) 0.15% Butalbit/Acetamin/Caff/Codeine 1 Each Capsule, 1 CAP PO TID PRN for MIGRAINE, (Reported) Calcium Phosphate Trib/Vit D3 1 Each Tab.chew, 1 TAB.CHEW PO DAILY, (Reported) Carboxymethylcellulos/Glycerin 10 Ml Drops.gel, 1 DROP OD TID, (Reported) USE RIGHT BEFORE BRIMONIDINE EYE DROPS Cholecalciferol (Vitamin D3) 1,000 Unit Tablet, 1,000 UNIT PO DAILY, (Reported) Duloxetine HCl 30 Mg Capsule.dr, 30 MG PO DAILY, (Reported) TAKE ALONG WITH 60MG CAP FOR A TOTAL DAILY DOSE OF 90MG Duloxetine HCl 60 Mg Capsule.dr, 60 MG PO DAILY, (Reported) TAKES ALONG WITH 30MG CAPSULE FOR A TOTAL DAILY DOSE OF 90MG Folic Acid 1 Mg Tablet, 1 MG PO DAILY, (Reported) Furosemide 40 Mg Tablet, 40 MG PO DAILY, (Reported) Gabapentin 300 Mg Capsule, 300 MG PO BID Prescribed by: PARKER VOGEL on 06/13/19956 Glipizide 5 Mg Tablet, 5 MG PO DAILY, (Reported) Hydroxychloroquine Sulfate 200 Mg Tablet, 200 MG PO BID, (Reported) Labetalol HCl 200 Mg Tablet, 400 MG PO BID, (Reported) TAKE 2 (200MG) TABS Levofloxacin 750 Mg Tablet, 750 MG PO Q48H@1100 Prescribed by: PARKER VOGEL on 06/13/19956 Ondansetron 4 Mg Tab.rapdis, 4 MG PO Q4H PRN for NAUSEA/VOMITING-1ST LINE, (Reported) Pantoprazole Sodium 40 Mg Tablet.dr, 40 MG PO DAILY, (Reported) Ropinirole HCl 0.5 Mg Tablet, 1 MG PO HS, (Reported) TAKE 2 (.5MG) TABS Ropinirole HCl 0.5 Mg Tablet, 0.5 MG PO DAILY, (Reported) Topiramate 25 Mg Tablet, 25 MG PO HS, (Reported) Topiramate 50 Mg Tablet, 75 MG PO DAILY, (Reported) TAKE 1 & 1/2 OF 50MG TAB Tramadol HCl 50 Mg Tablet, 50-100 MG PO Q6H PRN for PAIN-MODERATE, (Reported) TAKE 1-2 (50MG) TABS Patient Home Medication List Home Medication List Reviewed: Yes Physical Exam-Cardiology Physical Exam Vital Signs/I&O 06/13/19 06/13/19 06/13/19 18:30 18:42 18:44 Temp 98.2 Pulse 85 87 B/P (MAP) 129/57 (81) Pulse Ox 97 O2 Delivery Vapotherm O2 Flow Rate 40.00 20.00 Capillary Refill : A/P-Cardiology Assessment/Admission Diagnosis Chest pain, etiology undetermined. No evidence of acute cor syndrome at this time S/p total R knee arthroplasty on 06/09/19 Essential hypertension Hyperlipidemia Type 2 diabetes mellitus H/o CAD. History of stent to the right coronary artery 3.512 mm Ion stent in 2009, according to Dr Singh's office note. Pt states this was done in [place]. 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
--- NOTE | 2019-06-13 19:28 | History & Physical-Hospitalist ---
History of Present Illness HPI/Chief Complaint Ekta Barros is a 68-year-old female with past medical history of essential hypertension, type II diabetes, hyperlipidemia, coronary artery disease, restless leg syndrome, chronic kidney disease, who initially presented for a right total knee arthroplasty due to osteoarthritis. Her postoperative course was complicate acute kidney injury and pneumonia. She was stabilized and transferred to this morning. this evening she developed chest pain on the left side. She states the pain is worse with taking a deep breath. She says the pain radiates to her abdomen. She also had 2 episodes of nausea and vomiting with food intake. She denies radiation of the pain to her neck or arm. she also had a difficulty breathing at the time. She says the pain is improved now but has been coming and going. She also has pain and bruising on her bilateral shins. She denies fevers and chills. She had a bowel movement yesterday. She says that she is passing a lot of gas. Source: patient Exam Limitations: no limitations Date Seen 06/13/19 Time Seen by a Provider: 19:00 Attending Physician Parker Vogel MD PCP Allie Duque DO Referring Physician Date of Admission Jun 13, 2019 at 18:29 Home Medications & Allergies Home Medications Reviewed patient Home Medication Reconciliation performed by pharmacy medication reconciliations automotive diagnostic technician and/or nursing. Patients Allergies have been reviewed. Allergies Allergies Coded Allergies clopidogrel (Verified Allergy, Severe, BLOOD CLOTS, 11/27/18) Penicillins (Verified Allergy, Mild, RASH, 11/27/18) carisoprodol (Verified Allergy, Mild, RASH, 11/27/18) cephalexin (Verified Allergy, Mild, RASH, 11/27/18) ketorolac (Verified Allergy, Mild, RASH, 11/27/18) prochlorperazine (Verified Allergy, Mild, RASH, 11/27/18) Carbamates (Verified Allergy, Unknown, Rash, 05/28/19) Past Mxcxycm-Wcbrem-Inmwlh Hx Past Med/Social Hx: Reviewed Nursing Past Med/Soc Hx Patient Social History 2nd Hand Smoke Exposure: No Recent Foreign Travel: No Contact w/other who traveled: No Recent Hopitalizations: No Immunizations Up To Date Date of Pneumonia Vaccine: Jul 29, 2017 Date of Influenza Vaccine: Jul 28, 2018 Seasonal Allergies Seasonal Allergies: No Past Medical History Surgeries: Hysterectomy, Thyroidectomy Cardiac: Heart Attack, High Cholesterol, Hypertension Neurological: Headaches /Migraines Sexually Transmitted Disease: No HIV/AIDS: No Gastrointestinal: Gastroesophageal Reflux, Hepatitis Musculoskeletal: Arthritis, Chronic Back Pain Endocrine: Diabetes, Non-Insulin dep Loss of Vision: Bilateral Cancer: Breast Did You Recieve Any Treatments: Yes What Type of Treatment Did You: Radiation, Surgical Intervention History of Blood Disorders: Yes (IRON DEFFICIENCY ANEMIA-GETS IRON INFUSIONS) Adverse Reaction to Blood Navarrete: No (HAS HAD BLOOD WITH NO REACTION) Family History Hypertension G8 BROTHER Not obtainable due to adoption 19 FATHER No Pertinent Family Hx Review of Systems Constitutional: see HPI Physical Exam Physical Exam Vital Signs Vital Signs - First Documented 06/13/19 06/13/19 18:30 18:44 Temp 98.2 Pulse 85 B/P (MAP) 129/57 (81) Pulse Ox 97 O2 Delivery Vapotherm O2 Flow Rate 40.00 20.00 Capillary Refill : Height, Weight, BMI Height: 5'4.00" Weight: 213lbs. 0.8oz. 96.839301ex; 36.7 BMI Method:Stated General Appearance: No Apparent Distress, WD/WN, Chronically ill, Obese HEENT: PERRL/EOMI, Pharynx Normal Neck: Normal Inspection, Non Tender, Supple Respiratory: No Respiratory Distress, Decreased Breath Sounds (right lower lobe), Wheezing Cardiovascular: Regular Rate, Rhythm, No Murmur Gastrointestinal: Normal Bowel Sounds, Soft, Tenderness Extremity: Swelling, Other (bilateral mcgregor bruising) Neurologic/Psychiatric: Alert, No Motor/Sensory Deficits, Disoriented Skin: Ecchymosis, Pallor Lymphatic: No Adenopathy Results Results/Procedures Labs Patient resulted labs reviewed. Assessment/Plan Admission Diagnosis Chest pain Admission Status: Observation Reason for Inpatient Admission: CAD CKD Assessment and Plan Pleuritic chest pain Coronary artery disease Community acquired pneumonia Initial troponin normal EKG with normal sinus rhythm, no concerning STT wave changes Currently being treated for community-acquired pneumonia with Levaquin Obtain chest x-ray Cardiology consulted, appreciate recommend Although patient has been on DVT prophylaxis since admission for her knee surgery, there is concern for possible DVT Agree with Dr. Ji, will begin therapeutic Lovenox Bilateral lower extremity doppler ordered, no ultrasound until Saturday wean oxygen as tolerated Discussed possibility of performing CT scan with patient, she would prefer to defer at this time due to her kidney disease continue aspirin and beta lili Osteoarthritis Status post total knee arthroplasty consult PT/OT Plan to return to inpatient rehabilitation on discharge chronic kidney disease Creatinine 1.85 this morning Continue to monitor type II diabetes mellitus Sliding scale insulin Diagnosis/Problems Diagnosis/Problems (1) Pleuritic chest pain Status: Acute (2) Coronary artery disease Status: Chronic (3) S/P total knee arthroplasty Status: Chronic (4) Acute kidney injury superimposed on chronic kidney disease Status: Acute (5) Primary osteoarthritis of right knee Status: Chronic (6) Type 2 diabetes mellitus Status: Chronic (7) Restless leg syndrome Status: Chronic (8) Essential hypertension Status: Chronic Clinical Quality Measures DVT/VTE Risk/Contraindication: Risk Factor Score Per Nursin PARKER VOGEL MD Jun 13, 2019 19:28
[2019-06-13 19:43] LABS: ALBUMIN 2.9 GM/DL (3.2-4.5); BILIRUBIN,TOTAL 0.4 MG/DL (0.1-1.0); CALCIUM 7.8 MG/DL (8.5-10.1); MAGNESIUM 1.7 MG/DL (1.6-2.4); PHOSPHORUS 4.8 MG/DL (2.3-4.7); POTASSIUM 4.4 MMOL/L (3.6-5.0); TOTAL PROTEIN 5.6 GM/DL (6.4-8.2)
[2019-06-13 20:00] VITALS: BP 106/77
--- NOTE | 2019-06-13 20:36 | Diagnostic Imaging Report ---
EXAM: Chest 1 view, AP/PA only. INDICATION: Diminished right breath sounds. COMPARISON: 06/10/2019. FINDINGS: Stable marked elevation of the right hemidiaphragm. No pleural effusion or pneumothorax. No dense consolidation. Normal heart size and central pulmonary vascularity. Calcified aorta. Left subclavian tunneled port CVC tip mid SVC. IMPRESSION: Stable exam including marked elevation of the right hemidiaphragm. Dictated by: Dictated on workstation # [id number]
[2019-06-13 21:00] VITALS: BP 105/81
[2019-06-13] MEDS ORDERED: GABAPENTIN 300 MG (NEURONTIN) CAP PO SCH (21:00)
[2019-06-13] MEDS: inSUlin ASPART (NovoLOG) 1 UNIT/0.01 ML (CHARGE PER UNIT) SC SCH (21:09)
[2019-06-13] MEDS: GABAPENTIN 300 MG (NEURONTIN) CAP PO SCH (21:58)
[2019-06-13] MEDS: HYDROXYCHLOROQUINE 200 MG (PLAQUENIL) TAB PO SCH (21:58)
[2019-06-13] MEDS: DOCUSATE SODIUM 100 MG (COLACE) CAP PO SCH (21:58)
[2019-06-13] MEDS: rOPINIRole 1 MG (REQUIP) TABLET PO SCH (21:58)
[2019-06-13] MEDS: LABETALOL 200 MG (NORMODYNE) TAB PO SCH (21:58)
[2019-06-13] MEDS: POLYETHYLENE GLYCOL 17 GM (MIRALAX) PACK PO SCH (21:59)
[2019-06-13] MEDS: BRIMONIDINE 0.2% (ALPHAGAN) OPHTH SOLN 5 ML BTL OU SCH (21:59)
[2019-06-13] MEDS: SENNA W/DOCUSATE (SENOKOT S) TABLET PO SCH (21:59)
[2019-06-13] MEDS: RT-ALBUTEROL/IPRATROPIUM 3 ML (DUONEB) VIAL INH SCH (23:38)
[2019-06-13] MEDS: ENOXAPARIN 100 MG/1 ML (LOVENOX) SYR SC SCH (23:43)
[2019-06-14] VITALS (7 sets, daily range): BP systolic 106–159; BP diastolic 56–69
[2019-06-14] MEDS: RT-ALBUTEROL/IPRATROPIUM 3 ML (DUONEB) VIAL INH SCH ×6 (02:00→22:35)
[2019-06-14 04:39] LABS: BASOPHILS % (AUTO) 0 % (0-10); EOSINOPHILS # (AUTO) 0.2 10^3/uL (0.0-0.3); EOSINOPHILS % (AUTO) 2 % (0-10); HEMATOCRIT 23 % (35-52); HEMOGLOBIN 7.2 G/DL (11.5-16.0); LYMPHOCYTES % (AUTO) 9 % (12-44); MEAN CORPUSCULAR HEMOGLOBIN 30 PG (25-34); MEAN CORPUSCULAR HGB CONC 31 G/DL (32-36); MEAN CORPUSCULAR VOLUME 97 FL (80-99); MEAN PLATELET VOLUME 9.4 FL (7.4-10.4); MONOCYTES % (AUTO) 9 % (0-12); NEUTROPHILS # (AUTO) 8.6 X 10^3 (1.8-7.8); NEUTROPHILS % (AUTO) 79 % (42-75); PLATELET COUNT 221 10^3/uL (130-400); RED CELL DISTRIBUTION WIDTH 13.3 % (10.0-14.5); WHITE BLOOD COUNT 10.8 10^3/uL (4.3-11.0)
[2019-06-14 05:04] LABS: BUN/CREATININE RATIO 18; CALCIUM 7.8 MG/DL (8.5-10.1); CARBON DIOXIDE 20 MMOL/L (21-32); CHLORIDE 108 MMOL/L (98-107); CREATININE SERUM 1.69 MG/DL (0.60-1.30); GFR ESTIMATED 30; GLUCOSE 148 MG/DL (70-105); POTASSIUM 4.2 MMOL/L (3.6-5.0); SODIUM 139 MMOL/L (135-145)
[2019-06-14] MEDS: inSUlin ASPART (NovoLOG) 1 UNIT/0.01 ML (CHARGE PER UNIT) SC SCH ×4 (06:11→22:09)
[2019-06-14] MEDS: FUROSEMIDE 40 MG (LASIX) TAB PO SCH (06:12)
[2019-06-14] MEDS: toPIRamate 25 MG (TOPAMAX) TAB PO SCH (08:27)
[2019-06-14] MEDS: amLODIPine 10 MG (NORVASC) TAB PO SCH (08:27)
[2019-06-14] MEDS: DOCUSATE SODIUM 100 MG (COLACE) CAP PO SCH ×3 (08:27→22:08)
[2019-06-14] MEDS: PANTOPRAZOLE 40 MG (PROTONIX) TAB PO SCH (08:27)
[2019-06-14] MEDS: ASPIRIN E.C. 325 MG (ECOTRIN) TABLET PO SCH (08:28)
[2019-06-14] MEDS: HYDROXYCHLOROQUINE 200 MG (PLAQUENIL) TAB PO SCH ×2 (08:28→17:55)
[2019-06-14] MEDS: GABAPENTIN 300 MG (NEURONTIN) CAP PO SCH ×2 (08:28→20:58)
[2019-06-14] MEDS: rOPINIRole 0.25 MG (REQUIP) TAB PO SCH (08:28)
[2019-06-14] MEDS: POLYETHYLENE GLYCOL 17 GM (MIRALAX) PACK PO SCH ×3 (08:29→22:09)
[2019-06-14] MEDS: DULoxetine 30 MG (CYMBALTA) CAP PO SCH (08:29)
[2019-06-14] MEDS: SENNA W/DOCUSATE (SENOKOT S) TABLET PO SCH ×2 (08:32→22:09)
[2019-06-14] MEDS: BRIMONIDINE 0.2% (ALPHAGAN) OPHTH SOLN 5 ML BTL OU SCH ×3 (08:39→21:04)
[2019-06-14] MEDS: LABETALOL 200 MG (NORMODYNE) TAB PO SCH ×2 (08:56→20:58)
[2019-06-14] MEDS: oxyCODONE/APAP 10/325MG (PERCOCET 10) TABLET PO PRN ×3 (09:00→21:24)
--- NOTE | 2019-06-14 09:23 | Pulmonary Consultation ---
History of Present Illness History of Present Illness Date of Consultation 06/14/19 09:18 Time Seen by Provider: 09:19 Date of Admission History of Present Illness 68yo with PMH of DMII, CAD, CKD presented for elective right total knee arthroplasty then developed PNA post op. PT was transferred from inpt rehab to ICU last night secondary to left sided pleuritic nonradiating CP and SOB. Pt was started on theraputic dose lovenox for possible PE. Dopplers are ordered however can not be done until Saturday secondary to US availability. CTA can not be done secondary renal failure. Allergies and Home Medications Allergies Coded Allergies: clopidogrel (Verified Allergy, Severe, BLOOD CLOTS, 11/27/18) Penicillins (Verified Allergy, Mild, RASH, 11/27/18) carisoprodol (Verified Allergy, Mild, RASH, 11/27/18) cephalexin (Verified Allergy, Mild, RASH, 11/27/18) ketorolac (Verified Allergy, Mild, RASH, 11/27/18) prochlorperazine (Verified Allergy, Mild, RASH, 11/27/18) Carbamates (Verified Allergy, Unknown, Rash, 05/28/19) Home Medications Amlodipine Besylate 10 Mg Tablet, 10 MG PO DAILY, (Reported) Atorvastatin Calcium 80 Mg Tablet, 40 MG PO HS, (Reported) TAKE 1/2 OF 80MG TAB Baclofen 10 Mg Tablet, 10 MG PO TID PRN for MUSCLE SPASMS, (Reported) Brimonidine Tartrate 5 Ml Btl, 1 DROP OU TID, (Reported) 0.15% Butalbit/Acetamin/Caff/Codeine 1 Each Capsule, 1 CAP PO TID PRN for MIGRAINE, (Reported) Calcium Phosphate Trib/Vit D3 1 Each Tab.chew, 1 TAB.CHEW PO DAILY, (Reported) Carboxymethylcellulos/Glycerin 10 Ml Drops.gel, 1 DROP OD TID, (Reported) USE RIGHT BEFORE BRIMONIDINE EYE DROPS Cholecalciferol (Vitamin D3) 1,000 Unit Tablet, 1,000 UNIT PO DAILY, (Reported) Duloxetine HCl 30 Mg Capsule.dr, 30 MG PO DAILY, (Reported) TAKE ALONG WITH 60MG CAP FOR A TOTAL DAILY DOSE OF 90MG Duloxetine HCl 60 Mg Capsule.dr, 60 MG PO DAILY, (Reported) TAKES ALONG WITH 30MG CAPSULE FOR A TOTAL DAILY DOSE OF 90MG Folic Acid 1 Mg Tablet, 1 MG PO DAILY, (Reported) Furosemide 40 Mg Tablet, 40 MG PO DAILY, (Reported) Gabapentin 300 Mg Capsule, 300 MG PO BID Prescribed by: PARKER VOGEL on 06/13/19956 Glipizide 5 Mg Tablet, 5 MG PO DAILY, (Reported) Hydroxychloroquine Sulfate 200 Mg Tablet, 200 MG PO BID, (Reported) Labetalol HCl 200 Mg Tablet, 400 MG PO BID, (Reported) TAKE 2 (200MG) TABS Levofloxacin 750 Mg Tablet, 750 MG PO Q48H@1100 Prescribed by: PARKER VOGEL on 06/13/19956 Ondansetron 4 Mg Tab.rapdis, 4 MG PO Q4H PRN for NAUSEA/VOMITING-1ST LINE, (Reported) Pantoprazole Sodium 40 Mg Tablet.dr, 40 MG PO DAILY, (Reported) Ropinirole HCl 0.5 Mg Tablet, 1 MG PO HS, (Reported) TAKE 2 (.5MG) TABS Ropinirole HCl 0.5 Mg Tablet, 0.5 MG PO DAILY, (Reported) Topiramate 25 Mg Tablet, 25 MG PO HS, (Reported) Topiramate 50 Mg Tablet, 75 MG PO DAILY, (Reported) TAKE 1 & 1/2 OF 50MG TAB Tramadol HCl 50 Mg Tablet, 50-100 MG PO Q6H PRN for PAIN-MODERATE, (Reported) TAKE 1-2 (50MG) TABS Past Gxowktw-Vijssj-Dmgpio Hx Past Med/Social Hx: Reviewed Nursing Past Med/Soc Hx Patient Social History Alcohol Use: Denies Use Recreational Drug Use: No Smoking Status: Never a Smoker 2nd Hand Smoke Exposure: No Recent Foreign Travel: No Contact w/Someone Who Travel: No Recent Infectious Disease Expo: No Recent Hopitalizations: No Immunizations Up To Date Date of Pneumonia Vaccine: Jul 29, 2017 Date of Influenza Vaccine: Jul 28, 2018 Seasonal Allergies Seasonal Allergies: No Past Medical History Surgeries: Yes (R CTR, espohageal ligation x2, Hernia, L RCR, L TKR, laparotomy, MRSA infec) Hysterectomy, Thyroidectomy Respiratory: No Currently Using CPAP: No Currently Using BIPAP: No Cardiac: Yes (HX HEART CATH-STENT) Heart Attack, High Cholesterol, Hypertension Neurological: Yes Headaches /Migraines Sexually Transmitted Disease: No HIV/AIDS: No Genitourinary: Yes (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, STAGE 2-kidneY DISEASE ) Bladder Infection, Renal Failure Gastrointestinal: Yes (HX GI BLEED, zenkers syndrome-chokes easily, hx hep A) Gastroesophageal Reflux, Hepatitis Musculoskeletal: Yes (OSTEOARTHRITIS, BULGING DISCS) Arthritis, Chronic Back Pain Endocrine: Yes (partial thyroidectomy) Diabetes, Non-Insulin dep HEENT: Yes (GLASSES, UPPER DENTURES) Loss of Vision: Bilateral Cancer: Yes Breast Did You Recieve Any Treatments: Yes What Type of Treatment Did You: Radiation, Surgical Intervention Psychosocial: No Integumentary: No Blood Disorders: Yes (IRON DEFFICIENCY ANEMIA-GETS IRON INFUSIONS) Adverse Reaction/Blood Tranf: No (HAS HAD BLOOD WITH NO REACTION) Family Medical History Hypertension G8 BROTHER Not obtainable due to adoption 19 FATHER No Pertinent Family Hx Sepsis Event Evaluation Height, Weight, BMI Height: 5'4.00" Weight: 215lbs. 0.8oz. 97.899023wn; 36.9 BMI Method:Stated Exam Exam Vital Signs Date Time Temp Pulse Resp B/P (MAP) Pulse Ox O2 Delivery O2 Flow Rate FiO2 06/14/19 08:24 Nasal Cannula 3.50 06/14/19 08:00 97 143/67 (92) 97 Vapotherm 35.00 15.00 06/14/19 07:00 97 06/14/19 06:32 95 Vapotherm 15.00 35 06/14/19 04:00 96 19 159/69 (99) 94 Vapotherm 35.00 15.00 06/14/19 04:00 Vapotherm 15.00 35 06/14/19 02:03 Vapotherm 35.00 15.00 06/14/19 02:00 96 Vapotherm 15.00 35 06/14/19 01:00 96 06/14/19 00:00 99 19 106/56 (73) 95 Vapotherm 35.00 20.00 06/14/19 00:00 99.2 06/14/19 00:00 Vapotherm 20.00 35 06/13/19 23:53 Vapotherm 35.00 20.00 06/13/19 23:38 95 Vapotherm 20.00 35 06/13/19 21:00 94 17 105/81 (89) 98 Vapotherm 40.00 20.00 06/13/19 21:00 95 Vapotherm 20.00 40 06/13/19 20:00 97.7 06/13/19 20:00 88 17 106/77 (87) 95 Vapotherm 40.00 20.00 06/13/19 20:00 Vapotherm 20.00 40 06/13/19 19:30 Vapotherm 20.00 40 06/13/19 19:00 86 21 111/61 (78) 96 Vapotherm 40.00 20.00 06/13/19 18:44 98.2 06/13/19 18:42 87 06/13/19 18:30 85 129/57 (81) 97 Vapotherm 40.00 20.00 I & O 06/14/19 07:00 Intake Total 800 ml Output Total 500 ml Balance 300 ml Height & Weight Height: 5'4.00" Weight: 215lbs. 0.8oz. 97.364882da; 36.9 BMI Method:Stated General Appearance: No Apparent Distress, WD/WN, Chronically ill, Obese HEENT: PERRL/EOMI, Pharynx Normal Neck: Normal Inspection, Non Tender, Supple Respiratory: No Respiratory Distress, Decreased Breath Sounds (right lower lobe), Wheezing Cardiovascular: Regular Rate, Rhythm, No Murmur Extremity: Swelling, Other (bilateral mcgregor bruising) Neurologic/Psychiatric: Alert, No Motor/Sensory Deficits, Disoriented Skin: Ecchymosis, Pallor Lymphatic: No Adenopathy Results Lab Laboratory Tests 06/13/19 18:14 06/14/19 04:30 Assessment/Plan Assessment/Plan Acute respiratory distress with hypoxia -Currently on Vapotherm -Will try to wean as tolerated -SVNS Pleuritic CP r/o PE --Will order V/Q scan and probably CT of chest without contrast (secondary to renal failure) -Dopplers are ordered. Can not be done until Saturday secondary to US a vailability -CTA - unable to do secondary to renal failure Acute on CRF -Monitor Atelectasis with right diaphragm elevation -SVNs -IS -Increase activity as tolerated obesity Anemia -Monitor LISA TOVAR DO Jun 14, 2019 09:23
--- NOTE | 2019-06-14 11:46 | Diagnostic Imaging Report ---
PROCEDURE: CT chest without contrast. TECHNIQUE: Multiple contiguous axial images were obtained through the chest without the use of intravenous contrast. Auto Exposure Controls were utilized during the CT exam to meet ALARA standards for radiation dose reduction. INDICATION: Evaluate for mass. Shortness of breath. COMPARISON: Radiographs from 06/13/2019. CT chest from 12/05/2018. FINDINGS: The heart is normal in size. There is no pericardial effusion. The left-sided Port-A-Cath tip terminates in the low SVC. The interventricular septum is visible. No mediastinal adenopathy is seen. Surgical clips are seen in the left axilla. There are postsurgical changes in the left breast. No hilar adenopathy is seen on this noncontrast exam. There is a dense masslike consolidation in the left lower lobe, which is new since November 2018. This measures approximately 4.5 x 3.5 cm in size with surrounding airspace and groundglass opacity. There is a minimal right pleural effusion. No central endobronchial lesions are seen. There is no pneumothorax. No acute osseous abnormality is seen. No acute abnormality is seen in the upper abdomen. The gallbladder is distended. There is elevation of the right hemidiaphragm. There are hypodense and hyperdense renal cysts bilaterally. IMPRESSION: 1. Consolidative mass like density in the left lower lobe which is new since 12/05/2018. This may represent pneumonia in appropriate clinical setting. Underlying neoplasm is not excluded, and short interval followup is recommended. 2. Stable elevation of the right hemidiaphragm. 3. Marked distention of the gallbladder with no calcified stone seen. 4. Findings consistent with anemia. Dictated by: Dictated on workstation # [id number]
--- NOTE | 2019-06-14 12:07 | Progress Note - Hospitalist ---
Subjective HPI/CC On Admission Date Seen by Provider: Jun 14, 2019 Time Seen by Provider: 09:00 Chest pain Subjective/Events-last exam She reports feeling better this morning. She continues to feel short of breath and have a cough. She says that she still has some pleuritic chest pain. She denies any fevers or chills. She denies abdominal pain, nausea, vomiting, and diarrhea. Objective Exam Vital Signs Vital Signs Date Time Temp Pulse Resp B/P (MAP) Pulse Ox O2 Delivery O2 Flow Rate FiO2 06/14/19 10:19 95 Nasal Cannula 2.00 06/14/19 08:00 99.3 06/14/19 08:00 97 143/67 (92) 06/14/19 06:32 35 06/14/19 04:00 19 Capillary Refill : General Appearance: No Apparent Distress, WD/WN, Anxious, Obese HEENT: PERRL/EOMI, Pharynx Normal Neck: Normal Inspection, Supple Respiratory: No Accessory Muscle Use, No Respiratory Distress, Decreased Breath Sounds Cardiovascular: Regular Rate, Rhythm, No Murmur Gastrointestinal: Normal Bowel Sounds, Non Tender, Soft Extremity: No Calf Tenderness, Pedal Edema Neurologic/Psychiatric: Alert; No Disoriented Skin: Ecchymosis (bruising on anterior shins bilaterally) Lymphatic: No Adenopathy Results/Procedures Lab Laboratory Tests 06/13/19 18:14 06/14/19 04:30 Patient resulted labs reviewed. Imaging: Reviewed Imaging Films, Reviewed Imaging Report Assessment/Plan Assessment and Plan Assess & Plan/Chief Complaint Pleuritic chest pain Coronary artery disease Community acquired pneumonia Troponins remain normal EKG with normal sinus rhythm, no concerning STT wave changes Chest x-ray stable, no new consolidation or effusions Bilateral lower extremity doppler ordered, no ultrasound until Saturday CTA deferred due to poor renal function Started on therapeutic Lovenox empirically, pharmacy dosing with renal disease Requiring 2 L nasal cannula this morning Continue aspirin and beta lili Continue Levaquinfor community-acquired pneumonia Pulmonology consulted, appreciate recommendations Planning for V/Q scan and CT chest without contrast today Normocytic anemia Hemoglobin 7.2 this morning No signs of acute bleeding Repeat hemoglobin with type and screen tomorrow morning Transfuse if hemoglobin less than 7 Osteoarthritis Status post total knee arthroplasty PT/OT consulted Plan to return to inpatient rehabilitation on discharge Chronic kidney disease Creatinine 1.69 this morning Continue to monitor Type II diabetes mellitus Sliding scale insulin Diagnosis/Problems Diagnosis/Problems (1) Pleuritic chest pain Status: Acute (2) Coronary artery disease Status: Chronic (3) S/P total knee arthroplasty Status: Chronic (4) Acute kidney injury superimposed on chronic kidney disease Status: Acute (5) Primary osteoarthritis of right knee Status: Chronic (6) Type 2 diabetes mellitus Status: Chronic (7) Restless leg syndrome Status: Chronic (8) Essential hypertension Status: Chronic (9) Normocytic anemia Status: Acute Clinical Quality Measures DVT/VTE Risk/Contraindication: Risk Factor Score Per Nursin RFS Level Per Nursing on Admit: 4+=Very High PARKER VOGEL MD Jun 14, 2019 12:07
--- NOTE | 2019-06-14 13:19 | Diagnostic Imaging Report ---
EXAM: Ventilation/Perfusion lung scan INDICATION: Difficulty breathing TECHNIQUE: The study was performed following administration of 44 mCi of 99m Technetium DTPA. Only approximately 1 mCi was actually received by the patient. 5.5 mCi of 99 technetium were also given. COMPARISON: There are no prior nuclear medicine studies available for comparison. FINDINGS: The CT chest exam performed earlier today noted consolidative masslike density in the left lower lobe. The possibility that this related to pneumonia or to neoplasm was raised. There was also atelectasis/infiltrate in the right lung base and the central pulmonary vascularity did seem prominent. The presence of the underlying pulmonary pathology does make this study technically indeterminate. However, there is no definite ventilation/perfusion mismatch to indicate a pulmonary embolus. IMPRESSION: This exam is technically indeterminate. However, I do feel that there is low probability for pulmonary embolus. Dictated by: Dictated on workstation # [id number]
--- NOTE | 2019-06-14 14:07 | Progress Note - Cardiology ---
Cardiology SOAP Progress Note Subjective: No cp or palp or syncope Shortness of breath with mild activity Objective: I&O/Vital Signs 06/14/19 06/14/19 06/14/19 06/14/19 02:03 04:00 04:00 06:32 Pulse 96 Resp 19 B/P (MAP) 159/69 (99) Pulse Ox 94 95 O2 Delivery Vapotherm Vapotherm Vapotherm Vapotherm O2 Flow Rate 35.00 15.00 35.00 15.00 15.00 15.00 FiO2 35 35 06/14/19 06/14/19 06/14/19 06/14/19 07:00 08:00 08:00 08:00 Temp 99.3 Pulse 97 97 B/P (MAP) 143/67 (92) Pulse Ox 97 O2 Delivery Vapotherm Nasal Cannula O2 Flow Rate 35.00 3.50 15.00 06/14/19 06/14/19 06/14/19 08:24 09:00 10:19 Pulse Ox 95 95 O2 Delivery Nasal Cannula Nasal Cannula Nasal Cannula O2 Flow Rate 3.50 3.50 2.00 06/14/19 00:00 Intake Total 400 ml Output Total 300 ml Balance 100 ml Weight (Pounds): 215 Weight (Ounces): 0.8 Weight (Calculated Kilograms): 97.700981 Constitutional: well-developed, well-nourished, other (appears oriented to time, person, and place, but is somewhat slow and vague in responding to questions) Respiratory: No accessory muscle use; other (air entry good but diminished at the bases (L>R)) Cardiovascular: regular rate-rhythm, S1 and S2, systolic murmur (soft CHRIS at card base) Gastrointestional: No tender; soft; No guarding, No rebound; audible bowel sounds Extremities: other (mild to mod, bilat leg edema; bruising of both lower legs); No clubbing, No cyanosis Neurologic/Psychiatric: other (See Constitutional for mental status exam; moves all limbs equally) Skin: No rash on exposed areas, No ulcerations on exposed areas Results/Procedures: Labs Laboratory Tests 06/13/19 18:14: Sodium Level 137, Potassium Level 4.4, Chloride Level 108H, Carbon Dioxide Level 18L, Anion Gap 11, Blood Urea Nitrogen 33H, Creatinine 2.00H, Estimat Glomerular Filtration Rate 25, BUN/Creatinine Ratio 17, Glucose Level 143H, Calcium Level 7.8L, Corrected Calcium 8.7, Phosphorus Level 4.8H, Magnesium Level 1.7, Total Bilirubin 0.4, Aspartate Amino Transf (AST/SGOT) 15, Alanine Aminotransferase (ALT/SGPT) 16, Alkaline Phosphatase 130, Total Protein 5.6L, Albumin 2.9L, Procalcitonin 0.51H 06/14/19 00:35: Troponin I < 0.028 06/14/19 04:30: Sodium Level 139, Potassium Level 4.2, Chloride Level 108H, Carbon Dioxide Level 20L, Anion Gap 11, Blood Urea Nitrogen 30H, Creatinine 1.69H, Estimat Glomerular Filtration Rate 30, BUN/Creatinine Ratio 18, Glucose Level 148H, Calcium Level 7.8L, Troponin I < 0.028, White Blood Count 10.8, Red Blood Count 2.41L, Hemoglobin 7.2L, Hematocrit 23L, Mean Corpuscular Volume 97, Mean Corpuscular Hemoglobin 30, Mean Corpuscular Hemoglobin Concent 31L, Red Cell Distribution Width 13.3, Platelet Count 221, Mean Platelet Volume 9.4, Neutrophils (%) (Auto) 79H, Lymphocytes (%) (Auto) 9L, Monocytes (%) (Auto) 9, Eosinophils (%) (Auto) 2, Basophils (%) (Auto) 0, Neutrophils # (Auto) 8.6H, Lymphocytes # (Auto) 1.0, Monocytes # (Auto) 1.0, Eosinophils # (Auto) 0.2, Basophils # (Auto) 0.0 06/14/19 11:58: Glucometer 166H Laboratory Tests 06/13/19 18:14 06/14/19 04:30 A/P: Assessment: Chest pain, etiology undetermined. No evidence of acute cor syndrome. Low probability VQ scan for PE on 06/13/19 S/p total R knee arthroplasty on 06/09/19 Essential hypertension Hyperlipidemia Type 2 diabetes mellitus H/o CAD. History of stent to the right coronary artery 3.512 mm Ion stent in 09 08, according to Dr Singh's office note. Pt states this was done in [place]. 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
[2019-06-14] MEDS: ENOXAPARIN 100 MG/1 ML (LOVENOX) SYR SC SCH (17:56)
[2019-06-14] MEDS: rOPINIRole 1 MG (REQUIP) TABLET PO SCH (21:03)
[2019-06-14] MEDS: ONDANSETRON 4 MG/2 ML (SDV) Z0FRAN IVP PRN (21:42)
--- NOTE | 2019-06-14 23:00 | NUR ---
PT TRANSFERRED TO ICU TO MED SURG. 2 L 02 PER NC, ALL BELONGINGS WITH HER AT TIME. WILL ASSUME CARE OF PT AT THIS TIME.
[2019-06-15] VITALS: BP 109/56
[2019-06-15] MEDS ORDERED: RT-ALBUTEROL SULF 2.5 MG/3 ML PRE-MIX VIAL INH PRN
[2019-06-15] MEDS: RT-ALBUTEROL/IPRATROPIUM 3 ML (DUONEB) VIAL INH SCH ×3 (02:08→10:34)
[2019-06-15 04:00] VITALS: BP 132/61
[2019-06-15] MEDS: oxyCODONE/APAP 10/325MG (PERCOCET 10) TABLET PO PRN (04:46)
[2019-06-15 04:59] LABS: HEMOGLOBIN 7.5 G/DL (11.5-16.0); MEAN PLATELET VOLUME 9.6 FL (7.4-10.4); RED CELL DISTRIBUTION WIDTH 13.2 % (10.0-14.5); WHITE BLOOD COUNT 9.4 10^3/uL (4.3-11.0)
[2019-06-15 05:16] LABS: CREATININE SERUM 1.51 MG/DL (0.60-1.30); MAGNESIUM 2.2 MG/DL (1.6-2.4); PHOSPHORUS 4.4 MG/DL (2.3-4.7); POTASSIUM 3.9 MMOL/L (3.6-5.0)
[2019-06-15] MEDS: inSUlin ASPART (NovoLOG) 1 UNIT/0.01 ML (CHARGE PER UNIT) SC SCH (06:28)
--- NOTE | 2019-06-15 06:40 | NUR ---
patient was on 2 L NC when RT entered her room; due to o2 order tks greater than 92% O2 was decreased to 1 L (Night Aide and Night RN was notified of this change); after svn bt was given patient had Wheezing BS but RT encouraged patient to cough and BS cleared up. Patient stated she is having a productive cough of yellow sputum at this time.
[2019-06-15] MEDS: HYDROXYCHLOROQUINE 200 MG (PLAQUENIL) TAB PO SCH (06:49)
[2019-06-15] MEDS: PANTOPRAZOLE 40 MG (PROTONIX) TAB PO SCH (06:50)
[2019-06-15] MEDS: FUROSEMIDE 40 MG (LASIX) TAB PO SCH (06:50)
[2019-06-15] MEDS: DULoxetine 30 MG (CYMBALTA) CAP PO SCH (08:32)
[2019-06-15] MEDS: rOPINIRole 0.25 MG (REQUIP) TAB PO SCH (08:32)
[2019-06-15] MEDS: ASPIRIN E.C. 325 MG (ECOTRIN) TABLET PO SCH (08:32)
[2019-06-15] MEDS: LABETALOL 200 MG (NORMODYNE) TAB PO SCH (08:32)
[2019-06-15] MEDS: amLODIPine 10 MG (NORVASC) TAB PO SCH (08:32)
[2019-06-15] MEDS: GABAPENTIN 300 MG (NEURONTIN) CAP PO SCH (08:32)
[2019-06-15] MEDS: SENNA W/DOCUSATE (SENOKOT S) TABLET PO SCH (08:33)
[2019-06-15] MEDS: toPIRamate 25 MG (TOPAMAX) TAB PO SCH (08:33)
[2019-06-15] MEDS: BRIMONIDINE 0.2% (ALPHAGAN) OPHTH SOLN 5 ML BTL OU SCH (08:36)
[2019-06-15] MEDS: DOCUSATE SODIUM 100 MG (COLACE) CAP PO SCH (08:36)
[2019-06-15] MEDS: POLYETHYLENE GLYCOL 17 GM (MIRALAX) PACK PO SCH (08:36)
--- NOTE | 2019-06-15 08:50 | Discharge Summary ---
Diagnosis/Chief Complaint Date of Admission Jun 13, 2019 at 6:29 pm Date of Discharge Admission Diagnosis Chest pain Primary Care MarcelinoLola J Scoop Filler Discharge Diagnosis (1) Pleuritic chest pain Status: Acute (2) Coronary artery disease Status: Chronic (3) S/P total knee arthroplasty Status: Chronic (4) Acute kidney injury superimposed on chronic kidney disease Status: Acute (5) Primary osteoarthritis of right knee Status: Chronic (6) Type 2 diabetes mellitus Status: Chronic (7) Restless leg syndrome Status: Chronic (8) Essential hypertension Status: Chronic (9) Normocytic anemia Status: Acute Discharge Summary Discharge Physical Exam Allergies: Coded Allergies: clopidogrel (Verified Allergy, Severe, BLOOD CLOTS, 11/27/18) Penicillins (Verified Allergy, Mild, RASH, 11/27/18) carisoprodol (Verified Allergy, Mild, RASH, 11/27/18) cephalexin (Verified Allergy, Mild, RASH, 11/27/18) ketorolac (Verified Allergy, Mild, RASH, 11/27/18) prochlorperazine (Verified Allergy, Mild, RASH, 11/27/18) Carbamates (Verified Allergy, Unknown, Rash, 05/28/19) Vitals & I&Os Vital Signs Date Time Temp Pulse Resp B/P (MAP) Pulse Ox O2 Delivery O2 Flow Rate FiO2 06/15/19 07:00 93 06/15/19 06:29 93 Nasal Cannula 2.00 06/15/19 04:00 97.9 22 132/61 (84) 06/14/19 23:45 24 Hospital Course Labs (last 24 hrs) Laboratory Tests 06/14/19 11:58: Glucometer 166H 06/14/19 16:29: Glucometer 140H 06/15/19 04:50: White Blood Count 9.4, Red Blood Count 2.46L, Hemoglobin 7.5L, Hematocrit 24L, Mean Corpuscular Volume 97, Mean Corpuscular Hemoglobin 31, Mean Corpuscular Hemoglobin Concent 32, Red Cell Distribution Width 13.2, Platelet Count 269, Mean Platelet Volume 9.6, Sodium Level 140, Potassium Level 3.9, Chloride Level 107, Carbon Dioxide Level 22, Anion Gap 11, Blood Urea Nitrogen 29H, Creatinine 1.51H, Estimat Glomerular Filtration Rate 34, BUN/Creatinine Ratio 19, Glucose Level 109H, Calcium Level 8.0L, Phosphorus Level 4.4, Magnesium Level 2.2 06/15/19 05:22: Glucometer 120H Patient resulted labs reviewed. Pending Labs Laboratory Tests 06/15/19 04:50: White Blood Count 9.4, Red Blood Count 2.46, Hemoglobin 7.5, Hematocrit 24, Mean Corpuscular Volume 97, Mean Corpuscular Hemoglobin 31, Mean Corpuscular Hemoglobin Concent 32, Red Cell Distribution Width 13.2, Platelet Count 269, Mean Platelet Volume 9.6, Sodium Level 140, Potassium Level 3.9, Chloride Level 107, Carbon Dioxide Level 22, Anion Gap 11, Blood Urea Nitrogen 29, Creatinine 1.51, Estimat Glomerular Filtration Rate 34, BUN/Creatinine Ratio 19, Glucose Level 109, Calcium Level 8.0, Phosphorus Level 4.4, Magnesium Level 2.2 06/15/19 05:22: Glucometer 120 Imaging: Reviewed Imaging Films, Reviewed Imaging Report Discharge Home Medications: Active Scripts Active Levofloxacin 750 Mg Tablet 750 Mg PO Q48H@1100 4 Days Gabapentin 300 Mg Capsule 300 Mg PO BID 30 Days Reported Refresh Optive Gel Eye Drops (Carboxymethylcellulos/Glycerin) 10 Ml Drops.gel 1 Drop OD TID USE RIGHT BEFORE BRIMONIDINE EYE DROPS Vitamin D3 (Cholecalciferol (Vitamin D3)) 1,000 Unit Tablet 1,000 Unit PO DAILY Furosemide 40 Mg Tablet 40 Mg PO DAILY Ondansetron Odt (Ondansetron) 4 Mg Tab.rapdis 4 Mg PO Q4H PRN Cymbalta (Duloxetine HCl) 60 Mg Capsule.dr 60 Mg PO DAILY TAKES ALONG WITH 30MG CAPSULE FOR A TOTAL DAILY DOSE OF 90MG Brimonidine Tartrate 5 Ml Btl 1 Drop OU TID 0.15% Hydroxychloroquine Sulfate 200 Mg Tablet 200 Mg PO BID Folic Acid 1 Mg Tablet 1 Mg PO DAILY Glipizide 5 Mg Tablet 5 Mg PO DAILY Baclofen 10 Mg Tablet 10 Mg PO TID PRN Tramadol HCl 50 Mg Tablet 50-100 Mg PO Q6H PRN TAKE 1-2 (50MG) TABS Calcium + Vitamin D3 Gummies (Calcium Phosphate Trib/Vit D3) 1 Each Tab.chew 1 Tab.chew PO DAILY Cymbalta (Duloxetine HCl) 30 Mg Capsule.dr 30 Mg PO DAILY TAKE ALONG WITH 60MG CAP FOR A TOTAL DAILY DOSE OF 90MG Topiramate 50 Mg Tablet 75 Mg PO DAILY TAKE 1 & 1/2 OF 50MG TAB Amlodipine Besylate 10 Mg Tablet 10 Mg PO DAILY Topiramate 25 Mg Tablet 25 Mg PO HS Pantoprazole Sodium 40 Mg Tablet.dr 40 Mg PO DAILY Ropinirole HCl 0.5 Mg Tablet 0.5 Mg PO DAILY Ropinirole HCl 0.5 Mg Tablet 1 Mg PO HS TAKE 2 (.5MG) TABS Atorvastatin Calcium 80 Mg Tablet 40 Mg PO HS TAKE 1/2 OF 80MG TAB Labetalol HCl 200 Mg Tablet 400 Mg PO BID TAKE 2 (200MG) TABS Instructions to patient/family Please see electronic discharge instructions given to patient. Clinical Quality Measures DVT/VTE Risk/Contraindication: Risk Factor Score Per Nursin RFS Level Per Nursing on Admit: 4+=Very High LOUISE BARNES MD Jun 15, 2019 8:50 am
--- NOTE | 2019-06-15 08:54 | Physical Therapy Evaluation ---
PT Evaluation-General Medical Diagnosis Admission Date Jun 13, 2019 at 18:29 Medical Diagnosis: CP/right TKR Onset Date: Jun 09, 2019 Therapy Diagnosis Therapy Diagnosis: debility/weakness Height/Weight Height (Feet): 5 Height (Inches): 4.00 Weight (Pounds): 216 Weight (Ounces): 4.2 Precautions Precautions/Isolations: Fall Prevention, Standard Precautions Weight Bear Status Right Lower Extremity: Right Full Weight Bearing Left Lower Extremity: Left Full Weight Bearing Referral Physician: Molly Reason for Referral: Evaluation/Treatment Medical History Pertinent Medical History: DM, HTN, OA Current History Transferred to ARU then ICU to [address] [place] [address] secondary to SOA and CP Reviewed History: Yes Social History Home: Single Level Prior/Core FIM Prior Level of Function Therapy Code Descriptions/Definitions Functional [place] Measure: 0=Not Assessed/NA 4=Minimal Assistance 1=Total Assistance 5=Supervision or Setup 2=Maximal Assistance 6=Modified [place] 3=Moderate Assistance 7=Complete [place] Therapy Quality Codes: 6 Independent with activity with or without an assistive device 5 Patient requires set up or clean up by helper. Patient completes activity by themselves 4 Supervision or touching assist (CGA). [place] provide cues , steadying assist 3 The helper provides less than half the effort to complete the activity 2 The helper provides more than half the effort to complete the activity 1 Dependent. The helper does all the effort to complete an activity 7 Patient refused to complete or attempt activity 9 The patient did not perform the activity before the current illness or injury 88 Not attempted due to Medical conditions or safety concerns Functional Abilities and Goals: Independent: Patient completed the activities by him/herself, with or without an assistive device, with no assistance from a helper. Needed Some Help: Patient needed partial assistance from another person to complete activities. Dependent: A helper completed the activities for the patient. Unknown: Not Applicable: Bed Mobility: 6 Transfers (B,C,W/C) (FIM): 6 Gait: 6 Indoor Mobility (Ambulation): Independent Prior Devices Use: Walker PT Evaluation-Current Subjective Patient initially declined PT, then reluctantly agreed to up in recliner. Pain Numeric Pain Scale: 5-Moderate Pain Location: Right Location Body Site: Knee Pain Description: Acute Objective Patient Orientation: Normal For Age Problem Solving: Fair Attachments: Oxygen ROM/Strength ROM Lower Extremities right knee flexion 83 degrees; extension 5 degrees/left LE WFL Strength Lower Extremities 3+/5 grossly right LE/4-/5 grossly left LE Integumentary/Posture Integumentary refer to nursing notes Bowel Incontinence: No Bladder Incontinence: No Posture WFL Neuromuscular (Tone, Coordination, Reflexes) grossly intact Sensory Vision: Wears Glasses Hearing: Impaired Sensation Right Lower Extremit: Impaired Sensation Left Lower Extremity: Impaired Transfers Therapy Code Descriptions/Definitions Functional [place] Measure: 0=Not Assessed/NA 4=Minimal Assistance 1=Total Assistance 5=Supervision or Setup 2=Maximal Assistance 6=Modified [place] 3=Moderate Assistance 7=Complete [place] Transfers (B, C, W/C) (FIM): 5 Scootin Supine to/from Sit: 5 Sit to/from Stand: 5 Gait Mode of Locomotion: Walk Anticipated Mode of Locomotion: Walk Gait (FIM): 1 Distance (FIM): 1=up to 49 ft Distance: 10' Gait Level of Assist: 4 Gait Persons Needed: 1 Gait Assistive Device: FWW Comments/Gait Description shuffle gait sequence Balance Sitting Static: Normal Sitting Dynamic: Normal Standing Static: Fair Standing Dynamic: Fair Treatment bilateral LE exercises 15 reps in seated position LAQ Assessment/Needs Patient is very verbal utilizing all expletives graciously. Patient, per heather lundberg, will transfer to ARU on this date. PT to address functional strength and mobility to ensure safe return to home. Rehab Potential: [facility] [address] Scientist Goals Prison Goals PT Prison Goals Time Frame: Jun 27, 2019 Transfers (B,C,W/C) (FIM): 6 Gait (FIM): 6 Gait distance (FIM): 3=150 ft Distance: 200' Gait Level of Assist: 6 Gait Assistive Device: FWW PT Plan Problem List Problem List: Activity Tolerance, Gait Treatment/Plan Treatment Plan: Continue Plan of Care Treatment Plan: Bed Mobility, Education, Functional Activity [place], Functional Strength, Gait, Safety, Therapeutic Exercise, Transfers Treatment Duration: Jun 27, 2019 Frequency: 11 times per week Estimated Hrs Per Day: .5 hour per day Patient and/or Family Agrees t: Yes Time/GCodes Time In: 805 Time Out: 824 Total Billed Treatment Time: 19 Total Billed Treatment 1 visit EVModC 19 min NESHA CHOUDHURY PT Jun 15, 2019 08:54
--- NOTE | 2019-06-15 09:00 | Pulmonary Progress Note ---
Subjective Time Seen by a Provider: 09:09 Sepsis Event Evaluation Height, Weight, BMI Height: 5'4.00" Weight: 216lbs. 4.2oz. 98.997269ps; 36.9 BMI Method:Stated Exam Exam Vital Signs Date Time Temp Pulse Resp B/P (MAP) Pulse Ox O2 Delivery O2 Flow Rate FiO2 06/15/19 07:00 93 06/15/19 06:29 93 Nasal Cannula 2.00 06/15/19 04:00 97.9 89 22 132/61 (84) 94 Nasal Cannula 2.00 06/15/19 02:08 92 Nasal Cannula 2.00 06/15/19 01:00 80 06/15/19 00:00 98.9 89 20 109/56 (73) 93 Nasal Cannula 2.00 06/14/19 23:45 94 95 24 06/14/19 22:35 95 Nasal Cannula 1.00 06/14/19 21:00 95 Nasal Cannula 3.50 06/14/19 20:00 97.2 06/14/19 20:00 87 22 114/62 (79) 95 Nasal Cannula 3.50 06/14/19 20:00 Nasal Cannula 3.50 06/14/19 19:10 97 Nasal Cannula 2.00 06/14/19 19:00 83 06/14/19 16:00 Nasal Cannula 3.50 06/14/19 16:00 83 13 117/57 (77) 100 Nasal Cannula 3.50 06/14/19 14:07 97 Nasal Cannula 2.00 06/14/19 13:00 81 06/14/19 12:55 87 17 117/57 (77) 97 Nasal Cannula 3.50 06/14/19 12:00 Nasal Cannula 3.50 06/14/19 12:00 99.3 06/14/19 10:19 95 Nasal Cannula 2.00 06/14/19 09:00 95 Nasal Cannula 3.50 I & O 06/15/19 07:00 Intake Total 1150 ml Output Total 550 ml Balance 600 ml Height & Weight Height: 5'4.00" Weight: 216lbs. 4.2oz. 98.587665ql; 36.9 BMI Method:Stated General Appearance: No Apparent Distress, WD/WN, Anxious, Obese HEENT: PERRL/EOMI, Pharynx Normal Neck: Normal Inspection, Supple Respiratory: No Accessory Muscle Use, No Respiratory Distress, Decreased Breath Sounds Cardiovascular: Regular Rate, Rhythm, No Murmur Extremity: No Calf Tenderness, Pedal Edema Neurologic/Psychiatric: Alert; No Disoriented Skin: Ecchymosis (bruising on anterior shins bilaterally) Lymphatic: No Adenopathy Results Lab Laboratory Tests 06/13/19 18:14 06/14/19 04:30 06/15/19 04:50 Assessment/Plan Assessment/Plan Acute respiratory distress with hypoxia -Currently on NC -Will try to wean as tolerated -SVNS Pleuritic CP r/o PE --V/Q scan reviewed -CT scan without contrast reviewed. -Shows lung mass new since 12/05/18 PNA vs Cancer -Will need f/u CT scan and possible bronchoscopy -CTA - unable to do secondary to renal failure - Acute on CRF -Monitor Atelectasis with right diaphragm elevation -SVNs -IS -Increase activity as tolerated obesity Anemia -Monitor CT scan: Consolidative mass like density in the left lower lobe which is new since 12/05/2018. This may represent pneumonia in appropriate clinical setting. Underlying neoplasm is not excluded, and short interval followup is recommended. LISA TOVAR DO Jun 15, 2019 09:00
[2019-06-15] MEDS ORDERED: GABA-488 PO (09:09)
[2019-06-15] MEDS: ONDANSETRON 4 MG/2 ML (SDV) Z0FRAN IVP PRN ×2 (09:12→10:47)
--- NOTE | 2019-06-15 09:12 | NUR ---
SPOKE WITH PT WELL GOING THRU THE EXT MED HISTORY TO COMPLETE THE MED REC. 05-12-2019 TRAMADOL 50MG: #168/21 DS 05-19-2019 CYMBALTA 30MG #30/DS 06-08-2019 CYMBALTA 60MG: #30/30DS 05-28-2019 BUTALBITAL: #84/28 DS (TAKES PRN)
--- NOTE | 2019-06-15 09:50 | Cardiology Progress Note ---
Subjective Date Seen by Provider: Jun 15, 2019 Time Seen by Provider: 09:47 Subjective/Events-last exam Patient is sitting up in bed, complaining of some right knee pain. Denies any further episode of chest pain, denies dyspnea. Objective-Cardiology Exam Last Set of Vital Signs Vital Signs 06/14/19 06/15/19 06/15/19 06/15/19 23:45 04:00 06:29 07:00 Temp 97.9 Pulse 93 Resp 22 B/P (MAP) 132/61 (84) Pulse Ox 93 O2 Delivery Nasal Cannula O2 Flow Rate 2.00 FiO2 24 Capillary Refill : I&O Intake and Output 06/14/19 23:59 Intake Total 1250 ml Output Total 750 ml Balance 500 ml Intake Oral 1250 ml Output Urine Total 750 ml General: Alert, Oriented X3, Cooperative HEENT: Atraumatic, PERRLA Neck: Supple, No JVD, No Thyromegaly Lungs: Clear to Auscultation, Normal Air Movement Heart: Regular Rate, Normal S1, Normal S2, No Murmurs Abdomen: Normal Bowel Sounds, Soft, No Tenderness, No Hepatosplenomegaly, No Masses Extremities: No Clubbing, No Cyanosis, No Edema, Normal Pulses, No Tenderness/Swelling Skin: No Rashes, No Breakdown, No Significant Lesion Neuro: Normal Speech, Cranial Nerves 3-12 NL Psych/Mental Status: Mental Status NL, Mood NL Results Lab Laboratory Tests 06/15/19 04:50 A/P-Cardiology Admission Diagnosis Chest pain Right knee arthroplasty HTN HLP Assessment/Plan Chest pain, nonspecific etiology. No evidence of acute coronary syndrome. Low probability VQ scan for PE on 06/13/19. Denies any further episode or chest pain. S/p total R knee arthroplasty on 06/09/19, continue PT/OT. Essential hypertension, continue to monitor blood pressure. Hyperlipidemia, continue to monitor lipids as outpatient.. Type 2 diabetes mellitus H/o CAD. History of stent to the right coronary artery 3.512 mm Ion stent in 2009. 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
--- NOTE | 2019-06-15 10:38 | Cardiology Progress Note ---
Subjective Date Seen by Provider: Jun 15, 2019 Time Seen by Provider: 10:35 Subjective/Events-last exam Patient is laying down in bed, complaining of difficulty swallowing, cough and mild shortness of breath. Reporting that her chest pain is better but having pain with coughing Review of Systems General: No Chills, No Night Sweats, No Fatigue, No Malaise, No Appetite, No Other HEENT: No Head Aches, No Visual Changes, No Eye Pain, No Ear Pain, No Dysphasia, No Sinus Congestion, No Post Nasal Drip, No Sore Throat, No Other Pulmonary: Dyspnea; No Cough; Pleuritic Chest Pain; No Other Cardiovascular: Chest Pain; No: Palpitations, Orthopnea, Paroxysmal Noc. Dyspnea, Edema, Lt Headedness, Other Objective-Cardiology Exam Last Set of Vital Signs Vital Signs 06/14/19 06/15/19 06/15/19 06/15/19 23:45 04:00 07:00 09:00 Temp 97.9 Pulse 93 Resp 22 B/P (MAP) 132/61 (84) Pulse Ox 95 O2 Delivery Nasal Cannula O2 Flow Rate 3.50 FiO2 24 Capillary Refill : I&O Intake and Output 06/15/19 00:00 Intake Total 1250 ml Output Total 750 ml Balance 500 ml Intake Oral 1250 ml Output Urine Total 750 ml General: Alert, Oriented X3, Cooperative HEENT: Atraumatic, PERRLA Neck: Supple, No JVD, No Thyromegaly Lungs: Clear to Auscultation, Normal Air Movement Heart: Regular Rate, Normal S1, Normal S2, No Murmurs Abdomen: Normal Bowel Sounds, Soft, No Tenderness, No Hepatosplenomegaly, No Masses Extremities: No Clubbing, No Cyanosis, No Edema, Normal Pulses, No Tenderness/Swelling Skin: No Rashes, No Breakdown, No Significant Lesion Neuro: Normal Speech, Cranial Nerves 3-12 NL Psych/Mental Status: Mental Status NL, Mood NL Results Lab Laboratory Tests 06/15/19 04:50 A/P-Cardiology Admission Diagnosis Chest pain Right knee arthroplasty HTN HLP Assessment/Plan Chest pain, nonspecific etiology. No evidence of acute coronary syndrome. Low probability VQ scan for PE on 06/13/19. Denies any further episode or chest pain, continue to monitor Coronary artery disease, history of stent to the right coronary artery using 3.5 time 12 mm Ion stent done in 2009, reporting history of intervention done in [place], last stress test was done in November 2018 showing no significant ischemia or infarction. Pleuritic chest pain, CT scan of the chest suggestive of left mass versus pneumonia, receiving antibiotics. Managed by Dr. Garcia. Shortness of breath, acute respiratory insufficiency, improved at this time. Continue to monitor Anemia, monitor H&H Acute on chronic kidney disease stage 3-4, diabetic nephropathy, slight imp rovement. Continue to monitor Status post right total knee arthroplasty done on June 09, 2019, recovering slowly, receiving physical therapy Hypertension, blood pressure is better controlled. Monitor blood pressure Hyperlipidemia, continue to monitor lipids Diabetes mellitus, followed and managed by primary care physician History of restless leg syndrome Clinical Quality Measures DVT/VTE Risk/Contraindication: Risk Factor Score Per Nursin RFS Level Per Nursing on Admit: 4+=Very High ABBI GUTIERREZ MD Jun 15, 2019 10:38
--- NOTE | 2019-06-15 10:40 | NUR ---
[facility]
--- NOTE | 2019-06-15 10:40 | NUR ---
RT had to increase O2 from 1 L back to the previous 2 L due to O2 sat of 88%. Day Aide and RN was both notified of this change
[2019-06-15] MEDS ORDERED: LEVOFLOXACIN 750 MG TAB (LEVAQUIN) PO SCH (11:00)
== END 2019-06-15 08:50 ==
LOC: UNDOADMOB 18:29 → INTOOBSV 18:29 → ICU 18:29 → 4TH 06-14 22:24 → UNDODISOB 06-15 11:00
PROVIDERS: ADMIT Internal Medicine; ATTEND Internal Medicine
DX: R07.81 Pleurodynia (principal); I25.10 Atherosclerotic heart disease of native coronary artery without angina pectoris; I12.9 Hypertensive chronic kidney disease with stage 1 through stage 4 chronic kidney disease, or unspecified chronic kidney disease; E78.5 Hyperlipidemia, unspecified; G25.81 Restless legs syndrome; J18.9 Pneumonia, unspecified organism; E11.22 Type 2 diabetes mellitus with diabetic chronic kidney disease; N18.9 Chronic kidney disease, unspecified; K21.9 Gastro-esophageal reflux disease without esophagitis; K75.9 Inflammatory liver disease, unspecified; G89.29 Other chronic pain; M54.9 Dorsalgia, unspecified; N17.9 Acute kidney failure, unspecified; M17.11 Unilateral primary osteoarthritis, right knee; Z88.0 Allergy status to penicillin; Z88.8 Allergy status to other drugs, medicaments and biological substances; Z79.899 Other long term (current) drug therapy; Z96.651 Presence of right artificial knee joint; Z90.710 Acquired absence of both cervix and uterus; Z90.89 Acquired absence of other organs; Z82.49 Family history of ischemic heart disease and other diseases of the circulatory system
CPT/HCPCS: 36415; 71045; 71250; 78582; 80048; 80053; 82962; 83735; 84100; 84145; 84484; 85025; 85027; 86850; 86900; 86901; 94640; 94760

== ENCOUNTER 2019-06-23 16:00 | Day surgery (SDC) | payer MEDICARE ==
[2019-06-23 17:40] VITALS: BP 141/62
--- NOTE | 2019-06-23 22:48 | OPERATIVE REPORT ---
DATE OF SERVICE: PREOPERATIVE DIAGNOSES: 1. Anemia. 2. Cough. POSTOPERATIVE DIAGNOSES: 1. Ulcers on arytenoids 2. Zenker's diverticulum. 3. Gastritis. 4. Hiatal hernia. 5. Diverticula. 6. Colon polyps. 7. Internal hemorrhoids. PROCEDURE: 1. EGD with biopsy. 2. Colonoscopy with snare polypectomy. SURGEON: Mike Whalen DO. BI CONSULTANT: None. ANESTHESIA: IV sedation by the COOKIE PADDER. SPECIMEN: 1. Biopsy from the antrum, biopsy from the body of stomach, biopsy from the GE junction. 2. Transverse colon polyp. 3. Descending colon polyp x2. 4. Rectal polyp. BLOOD LOSS: Scant. FLUIDS: Per anesthesia. POSTOPERATIVE CONDITION: Stable. INDICATION FOR PROCEDURE: The patient is a 68-year-old female who has anemia and has a cough, needs a workup. FINDINGS: The patient had ulcers on the on the arytenoids, also noted the Zenker's diverticulum. She had some mild gastritis. She had a hiatal hernia. Also noted in the colon, multiple polyps, some diverticula and some internal hemorrhoids. PROCEDURE NOTE: After informed consent was obtained, the patient was brought to the endoscopy suite, placed in the bed in left lateral decubitus position. She was administered IV sedation by the COOKIE PADDER who then monitored her vitals the entire time, heart rate, blood pressure and pulse ox and the scope started with the EGD, placed the scope down the mouth, looking at the vocal cords, could see ulcers around the arytenoids, took a picture of this and then pushed in to the top of esophagus, saw the Zenker's diverticulum, tried to take a picture of this and then pushed down the esophagus and into the stomach, pushed through the duodenum. Duodenum looked good. Pulled back into the antrum, looked like a little bit of erythema, did a biopsy of the antrum, pulled back to the biopsy of the body of stomach, retroflexed the scope, saw a small hiatal hernia, took a picture of this. Pulled the scope into the GE junction, again could see the hiatal hernia, took a picture here and then pulled the scope up the esophagus, did not see any other obvious pathology and then out the mouth. Switched camera, switched gloves, went down below, started the colonoscopy, pushed the scope in, pushed all the way to about 150 cm, on the way in, saw some polyps in the descending colon, saw 2 of them, did snare polypectomy of these, contained into the transverse colon, saw another polyp, also noted some diverticula throughout the sigmoid and descending colon, then able to push all the way to the cecum, took a picture of appendiceal orifice, noted the ileocecal valve, slowly withdrew the scope insufflating the circumferential wall looking at the cecum, up the ascending colon to the hepatic flexure, then down the transverse colon, the splenic flexure, into the descending colon then down into the sigmoid and finally into the rectum. In the rectal, about 20 cm from the vault from the anus, saw another polyp, did a snare polypectomy of this as well and then pulled into the rectal vault. Retroflexed rectal vault, saw some internal hemorrhoids, took a picture of this and then removed the scope. The patient tolerated the procedure well, recovered in endoscopy suite and then taken back to her room. Job ID: [id number] DocumentID: [id number] Dictated Date: 06/23/2019 17:56:38 Limited Radiology Technician Date: 06/23/2019 22:47:26 Dictated By: MIKE WHALEN DO
[2019-06-24] MEDS ORDERED: OXYC1TAB12 PO ×2 (09:49)
[2019-06-24] MEDS ORDERED: SENN-20 PO ×2 (09:49)
[2019-06-24] MEDS ORDERED: LACTATED RINGERS 1,000 ML IV STA (11:54)
[2019-06-24] MEDS ORDERED: HURRICAINE EXT TUBE (BENZOCAINE) XX PRN (12:00)
== END 2019-06-23 17:45 | disposition designated cancer center or children's hospital (05) ==
LOC: ENDO 16:00
PROVIDERS: ATTEND Surgery
DX: D12.4 Benign neoplasm of descending colon (principal); D12.3 Benign neoplasm of transverse colon; D12.8 Benign neoplasm of rectum; K29.50 Unspecified chronic gastritis without bleeding; K44.9 Diaphragmatic hernia without obstruction or gangrene; K57.30 Diverticulosis of large intestine without perforation or abscess without bleeding; K64.8 Other hemorrhoids; J38.7 Other diseases of larynx; D50.9 Iron deficiency anemia, unspecified; I25.10 Atherosclerotic heart disease of native coronary artery without angina pectoris; J44.9 Chronic obstructive pulmonary disease, unspecified; K21.9 Gastro-esophageal reflux disease without esophagitis; E11.9 Type 2 diabetes mellitus without complications; E78.00 Pure hypercholesterolemia, unspecified; I11.0 Hypertensive heart disease with heart failure; I50.9 Heart failure, unspecified; G43.909 Migraine, unspecified, not intractable, without status migrainosus; M19.90 Unspecified osteoarthritis, unspecified site; G89.29 Other chronic pain; M54.9 Dorsalgia, unspecified; E66.9 Obesity, unspecified; Z68.37 Body mass index [BMI] 37.0-37.9, adult; Z79.899 Other long term (current) drug therapy; Z79.4 Long term (current) use of insulin; Z85.3 Personal history of malignant neoplasm of breast

== ENCOUNTER 2019-07-08 11:26 | Emergency (ER) | payer MEDICARE ==
[~2019-07-08] VITALS: Ht 162 cm; Wt 82.0 kg
[~2019-07-08 11:26] MED LIST changes: +SENN-20 PO
[2019-07-08] MEDS ORDERED: ONDANSETRON 4 MG/2 ML (SDV) Z0FRAN IVP ONE (12:15)
[2019-07-08] MEDS ORDERED: NS IV 500 ML 500 ML IV ONE ×2 (12:15→14:10)
--- NOTE | 2019-07-08 12:15 | NUR ---
POWER PORT PLACED.
--- NOTE | 2019-07-08 12:17 | ED General ---
General Chief Complaint: Cardiac/General Problems Stated Complaint: LOW BP Nursing Triage Note: HYPOTENSION AND WEAKNESS X1 WEEK. ALSO COMPLAINS OF NAUSEA. Nursing Sepsis Screen: No Definite Risk Source of Information: Patient Exam Limitations: No Limitations History of Present Illness Date Seen by Provider: Jul 08, 2019 Time Seen by Provider: 12:07 Initial Comments Here with report of being weak and having low blood pressure for the last week. Had a previous episode similar and was somewhat dehydrated and somewhat anemic. Denies fevers but has had chills. Has had nausea but no vomiting. Denies chest pain or breathing problems. Timing/Duration: 1 Week, Changing Over Time, Getting Worse Severity: Moderate Modifying Factors: improves with Rest Associated Systoms: No Cough, No Rash; Shortness of Air (with activity), Weakness Allergies and Home Medications Allergies Coded Allergies: clopidogrel (Verified Allergy, Severe, BLOOD CLOTS, 11/27/18) Penicillins (Verified Allergy, Mild, RASH, 11/27/18) carisoprodol (Verified Allergy, Mild, RASH, 11/27/18) cephalexin (Verified Allergy, Mild, RASH, 11/27/18) ketorolac (Verified Allergy, Mild, RASH, 11/27/18) prochlorperazine (Verified Allergy, Mild, RASH, 11/27/18) Carbamates (Verified Allergy, Unknown, Rash, 05/28/19) Home Medications Amlodipine Besylate 10 Mg Tablet, 10 MG PO DAILY, (Reported) Atorvastatin Calcium 80 Mg Tablet, 40 MG PO HS, (Reported) TAKE 1/2 OF 80MG TAB Baclofen 10 Mg Tablet, 10 MG PO TID PRN for MUSCLE SPASMS, (Reported) Brimonidine Tartrate 5 Ml Btl, 1 DROP OU TID, (Reported) 0.15% Butalbit/Acetamin/Caff/Codeine 1 Each Capsule, 1 CAP PO TID PRN for MIGRAINE, (Reported) Carboxymethylcellulos/Glycerin 10 Ml Drops.gel, 1 DROP OD TID, (Reported) USE RIGHT BEFORE BRIMONIDINE EYE DROPS Duloxetine HCl 30 Mg Capsule.dr, 30 MG PO DAILY, (Reported) TAKE ALONG WITH 60MG CAP FOR A TOTAL DAILY DOSE OF 90MG Duloxetine HCl 60 Mg Capsule.dr, 60 MG PO DAILY, (Reported) TAKES ALONG WITH 30MG CAPSULE FOR A TOTAL DAILY DOSE OF 90MG Folic Acid 1 Mg Tablet, 1 MG PO DAILY, (Reported) Furosemide 40 Mg Tablet, 40 MG PO DAILY, (Reported) Gabapentin 300 Mg Capsule, 300 MG PO BID, (Reported) Glipizide 5 Mg Tablet, 5 MG PO DAILY, (Reported) Hydroxychloroquine Sulfate 200 Mg Tablet, 400 MG PO DAILY, (Reported) Labetalol HCl 200 Mg Tablet, 400 MG PO DAILY, (Reported) TAKE 2 (200MG) TABS Oxycodone HCl/Acetaminophen 1 Each Tablet, 1 TAB PO Q4H PRN for PAIN-MODERATE Prescribed by: OLIVE ISAAC on 06/24/19948 Pantoprazole Sodium 40 Mg Tablet.dr, 40 MG PO DAILY, (Reported) Ropinirole HCl 0.5 Mg Tablet, 1 MG PO HS, (Reported) TAKE 2 (.5MG) TABS Ropinirole HCl 0.5 Mg Tablet, 0.5 MG PO DAILY, (Reported) Sennosides/Docusate Sodium 1 Each Tablet, 1 EA PO BID Prescribed by: OLIVE ISAAC on 06/24/19948 Topiramate 25 Mg Tablet, 25 MG PO HS, (Reported) Topiramate 50 Mg Tablet, 75 MG PO DAILY, (Reported) TAKE 1 & 1/2 OF 50MG TAB Tramadol HCl 50 Mg Tablet, 100 MG PO Q6H PRN for PAIN-MODERATE, (Reported) Patient Home Medication List Home Medication List Reviewed: Yes Review of Systems Review of Systems Constitutional: see HPI; No chills, No fever EENTM: no symptoms reported Respiratory: No cough; dyspnea on exertion Cardiovascular: No chest pain, No edema, No palpitations, No syncope Gastrointestinal: No abdominal pain; nausea; No vomiting Genitourinary: no symptoms reported Musculoskeletal: other (recent right knee surgery 3 weeks ago that reportedly is healing well without signs of infection. States that she still has pain with that but she is walking and able to stand. Does have some swelling but not worse.) All Other Systems Reviewed Negative Unless Noted: Yes Past Seolfmq-Vlyktc-Ivkpyy Hx Past Med/Social Hx: Reviewed Nursing Past Med/Soc Hx Patient Social History Alcohol Use: Denies Use Recreational Drug Use: No Smoking Status: Never a Smoker 2nd Hand Smoke Exposure: No Recent Foreign Travel: No Contact w/Someone Who Travel: No Recent Infectious Disease Expo: No Recent Hopitalizations: No Immunizations Up To Date Date of Pneumonia Vaccine: Jul 29, 2017 Date of Influenza Vaccine: Jul 28, 2018 Seasonal Allergies Seasonal Allergies: No Past Medical History Surgeries: Yes (R CTR, espohageal ligation x2, Hernia, L RCR, L TKR, laparotomy, MRSA infec) Hysterectomy, Joint Replacement, Orthopedic, Thyroidectomy Respiratory: No Currently Using CPAP: No Currently Using BIPAP: No Cardiac: Yes (HX HEART CATH-STENT) Heart Attack, High Cholesterol, Hypertension Neurological: Yes Headaches /Migraines Sexually Transmitted Disease: No HIV/AIDS: No Genitourinary: Yes (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, STAGE 2-kidneY DISEASE ) Bladder Infection, Renal Failure Gastrointestinal: Yes (HX GI BLEED, zenkers syndrome-chokes easily, hx hep A) Gastroesophageal Reflux, Hepatitis Musculoskeletal: Yes (OSTEOARTHRITIS, BULGING DISCS) Arthritis, Chronic Back Pain Endocrine: Yes (partial thyroidectomy) Diabetes, Non-Insulin dep HEENT: Yes (GLASSES, UPPER DENTURES) Loss of Vision: Bilateral Cancer: Yes Breast Did You Recieve Any Treatments: Yes What Type of Treatment Did You: Radiation, Surgical Intervention Psychosocial: No Integumentary: No Blood Disorders: Yes (IRON DEFFICIENCY ANEMIA-GETS IRON INFUSIONS) Adverse Reaction/Blood Tranf: No (HAS HAD BLOOD WITH NO REACTION) Family Medical History Reviewed Nursing Family Hx Hypertension G8 BROTHER Not obtainable due to adoption 19 FATHER No Pertinent Family Hx Physical Exam Vital Signs Vital Signs - First Documented 07/08/19 11:50 Temp 36.3 Pulse 83 Resp 16 B/P (MAP) 78/61 (67) Pulse Ox 97 O2 Delivery Room Air Capillary Refill : Less Than 3 Seconds Height, Weight, BMI Height: 5'4.00" Weight: 216lbs. 4.2oz. 98.641309sm; 31.00 BMI Method:Stated General Appearance: No Apparent Distress, WD/WN HEENT: PERRL/EOMI, Pharynx Normal Neck: Non Tender, Supple Respiratory: Lungs Clear, Normal Breath Sounds Cardiovascular: Regular Rate, Rhythm, No Murmur Gastrointestinal: Non Tender, Soft Extremity: Non Tender, No Calf Tenderness, No Pedal Edema, Other (mild swelling to the right knee. Surgical wound clean, dry and intact.) Neurologic/Psychiatric: Alert, Oriented x3 Progress/Results/Core Measures Suspected Sepsis Recent Fever Within 48 Hours: No Infection Criteria Present: None New/Unexplained Altered Menta: No Sepsis Screen: No Definite Risk SIRS Temperature: Pulse: 83 Respiratory Rate: 16 Laboratory Tests 07/08/19 12:15: White Blood Count 6.7 Blood Pressure 78 /61 Mean: 67 Laboratory Tests 07/08/19 12:15: Creatinine 2.09H, Platelet Count 252, Total Bilirubin 0.3 Results/Orders Lab Results Laboratory Tests Test 07/08/19 12:06 07/08/19 12:15 Range/Units Urine Color YELLOW Urine Clarity CLEAR Urine pH 5 5-9 Urine Specific [place] 1.025 H 1.016-1.022 Urine Protein 3+ H NEGATIVE Urine Glucose (UA) NEGATIVE NEGATIVE Urine Ketones 1+ H NEGATIVE Urine Nitrite NEGATIVE NEGATIVE Urine Bilirubin 1+ H NEGATIVE Urine Urobilinogen NORMAL NORMAL MG/DL Urine Leukocyte Esterase 2+ H NEGATIVE Urine RBC (Auto) NEGATIVE NEGATIVE Urine RBC RARE /HPF Urine WBC 2-5 /HPF Urine Squamous Epithelial Cells 5-10 /HPF Urine Crystals NONE /LPF Urine Bacteria FEW H /HPF Urine Casts PRESENT /LPF Urine Hyaline Casts 0-2 H /LPF Urine Mucus NEGATIVE /LPF Urine Culture Indicated NO White Blood Count 6.7 4.3-11.0 10^3/uL Red Blood Count 3.71 L 4.35-5.85 10^6/uL Hemoglobin 11.3 L 11.5-16.0 G/DL Hematocrit 36 35-52 % Mean Corpuscular Volume 96 80-99 FL Mean Corpuscular Hemoglobin 30 25-34 PG Mean Corpuscular Hemoglobin Concent 32 32-36 G/DL Red Cell Distribution Width 13.5 10.0-14.5 % Platelet Count 252 130-400 10^3/uL Mean Platelet Volume 9.2 7.4-10.4 FL Neutrophils (%) (Auto) 56 42-75 % Lymphocytes (%) (Auto) 28 12-44 % Monocytes (%) (Auto) 9 0-12 % Eosinophils (%) (Auto) 7 0-10 % Basophils (%) (Auto) 1 0-10 % Neutrophils # (Auto) 3.7 1.8-7.8 X 10^3 Lymphocytes # (Auto) 1.9 1.0-4.0 X 10^3 Monocytes # (Auto) 0.6 0.0-1.0 X 10^3 Eosinophils # (Auto) 0.5 H 0.0-0.3 10^3/uL Basophils # (Auto) 0.1 0.0-0.1 10^3/uL Sodium Level 141 135-145 MMOL/L Potassium Level 3.9 3.6-5.0 MMOL/L Chloride Level 106 98-107 MMOL/L Carbon Dioxide Level 25 21-32 MMOL/L Anion Gap 10 5-14 MMOL/L Blood Urea Nitrogen 21 H 7-18 MG/DL Creatinine 2.09 H 0.60-1.30 MG/DL Estimat Glomerular Filtration Rate 23 BUN/Creatinine Ratio 10 Glucose Level 130 H 70-105 MG/DL Calcium Level 9.0 8.5-10.1 MG/DL Corrected Calcium 9.2 8.5-10.1 MG/DL Total Bilirubin 0.3 0.1-1.0 MG/DL Aspartate Amino Transf (AST/SGOT) 11 5-34 U/L Alanine Aminotransferase (ALT/SGPT) 9 0-55 U/L Alkaline Phosphatase 155 H 40-136 U/L C-Reactive Protein High Sensitivity 0.59 H 0.00-0.50 MG/DL Total Protein 6.4 6.4-8.2 GM/DL Albumin 3.8 3.2-4.5 GM/DL My Orders Orders - IRMA TRAN MD Ed Iv/Invasive Line Start (07/08/19 12:15) Ns Iv 500 Ml (Sodium Chloride 0.9%) (07/08/19 12:15) Ondansetron Injection (Zofran Injectio (07/08/19 12:15) Cbc With Automated Diff (07/08/19 12:15) Comprehensive Metabolic Panel (07/08/19 12:15) Hs C Reactive Protein (07/08/19 12:15) Ua Culture If Indicated (07/08/19 12:15) Chest 1 View, Ap/Pa Only (07/08/19 12:15) Acetaminophen Tablet (Tylenol Tablet) (07/08/19 13:09) Acetaminophen Tablet (Tylenol Tablet) (07/08/19 13:19) Us Venous Lower Ext Rt (07/08/19 13:39) Ns Iv 500 Ml (Sodium Chloride 0.9%) (07/08/19 14:10) Medications Given in ED Current Medications Medications Dose Ordered Sig/Ana María Route Start Time Stop Time Status Last Admin Dose Admin Ondansetron HCl 4 mg ONCE ONCE IVP 07/08/19 12:15 07/08/19 12:17 DC 07/08/19 12:29 4 MG Sodium Chloride 500 ml @ 0 mls/hr Q0M ONCE IV 07/08/19 12:15 07/08/19 12:17 DC 07/08/19 12:30 500 MLS/HR Sodium Chloride 500 ml @ 0 mls/hr Q0M ONCE IV 07/08/19 14:10 07/08/19 14:11 DC 07/08/19 14:19 500 MLS/HR Vital Signs/I&O 07/08/19 11:50 Temp 36.3 Pulse 83 Resp 16 B/P (MAP) 78/61 (67) Pulse Ox 97 O2 Delivery Room Air Capillary Refill : Less Than 3 Seconds Blood Pressure Mean: 67 Progress Note : Progress Note Seen and evaluated. IV, labs, UA, normal saline 500 mL bolus and Zofran 4 mg IV ordered. Monitor patient. Repeat normal saline 500 mL bolus ordered. Ultrasound right lower extremity ordered to rule out DVT. Unable to do CT angiogram of the chest due to creatinine. Monitor patient. 1525: Overall doing better. Patient able to walk without difficulty. Ultrasound negative. Discharged home with return precautions. Patient verbalize understanding instructions and agreement with plan. I did discuss the case with Dr. Singh. We will stop her blood pr essure medicines and she will restart as indicated in discharge instructions. This was discussed with the patient who verbalize understanding. Diagnostic Imaging Diagonstic Imaging: Xray Plain Films/CT/US/NM/MRI: chest Comments NAME: KEO AGUIRRE [facility] REC#: [id number] PT STATUS: REG ER : 1950 PHYSICIAN: IRMA TRAN MD ADMIT DATE: 07/08/19/ER Draft Date of Exam:07/08/19 CHEST 1 VIEW, AP/PA ONLY INDICATION: Low blood pressure, weakness. COMPARISON: 06/18/2019. TECHNIQUE: Single frontal radiograph of the chest dated 07/08/2019. FINDINGS: The left-sided Port-A-Cath is again identified and stable. Stable elevation of the right hemidiaphragm. The cardiac silhouette is within normal limits in size. No significant pulmonary vascular congestion. Surgical clips are seen overlying the left axillary region. The lungs are clear of focal pulmonary opacity. No pleural effusion. No pneumothorax. No acute osseous abnormality. IMPRESSION: Stable elevation of the right hemidiaphragm. No acute cardiopulmonary abnormality. Dictated on workstation # [id number] Dict: 07/08/19 1257 Trans: 07/08/19 1301 [id number] Interpreted by: DAVID CARL MD Electronically signed by: Vineet Imaging: Ultrasound Plain Films/CT/US/NM/MRI: leg Comments NAME: KEO AGUIRRE [facility] REC#: [id number] PT STATUS: REG ER : 1950 PHYSICIAN: IRMA TRAN MD ADMIT DATE: 07/08/19/ER Signed Date of Exam: 07/08/19 US VENOUS LOWER EXT RT PROCEDURE: US right lower extremity venous. TECHNIQUE: Multiple real-time grayscale images were obtained over the right lower extremity in various projections. Additional spectral analysis and color Doppler duplex images were also obtained. INDICATION: Pain and swelling. FINDINGS: The right common femoral, superficial femoral, popliteal veins and tibial veins demonstrate normal response to compression, augmentation, and Valsalva. There are no right lower extremity fluid collections or masses. IMPRESSION: No evidence of deep vein thrombosis in the right lower extremity. Dictated by: Dictated on workstation # [id number] Dict: 07/08/19 1446 Trans: 07/08/19 1451 Interpreted by: GAGANDEEP VILLANUEVA MD Electronically signed by: GAGANDEEP VILLANUEVA MD 07/08/19 1451 Departure Impression Primary Impression: Dehydration Additional Impression: Low blood pressure Qualified Codes: I95.89 - Other hypotension Disposition: 01 HOME, SELF-CARE Condition: Improved Departure-Patient Inst. Decision time for Depature: 15:29 Referrals: JOSIANE KITCHEN DO (PCP) Primary Care Physician BARRETT VILLANUEVA APRN (Family) Primary Care Physician Patient Instructions: Dehydration, Adult (DC) Add. Discharge Instructions: All discharge instructions reviewed with patient and/or family. Voiced understanding. Your blood pressure was low and this is probably related to both dehydration and to your blood pressure medicines. Blood pressure is improved after fluids. You should stop your blood pressure medicines. Check your blood pressure and if it i s above 140 systolic then restart amlodipine. Do not restart the labetalol. If your blood pressure remains elevated despite restarting amlodipine, call Dr. Singh. Return for chest pain, breathing problems, weakness, difficulty walking or going to the bathroom or other concerns as needed. Continue other medicines as previously prescribed. Copy Copies To 1: ABBI SINGH MD Copies To 2: JOSIANE KITCHEN TIMOTHY D MD Jul 08, 2019 12:17
[2019-07-08 12:27] LABS: CLARITY,URINE CLEAR; COLOR,URINE YELLOW; GLUCOSE, URINE (UA) NEGATIVE (NEGATIVE); KETONES,URINE 1+ (NEGATIVE); LEUKOCYTE ESTERASE ,URINE 2+ (NEGATIVE); NITRITE,URINE NEGATIVE (NEGATIVE); PH,URINE 5 (5-9); PROTEIN,URINE 3+ (NEGATIVE); UROBILINOGEN,URINE NORMAL (NORMAL)
[2019-07-08 12:27] LABS: BASOPHILS # (AUTO) 0.1 10^3/uL (0.0-0.1); BASOPHILS % (AUTO) 1 % (0-10); EOSINOPHILS # (AUTO) 0.5 10^3/uL (0.0-0.3); EOSINOPHILS % (AUTO) 7 % (0-10); HEMATOCRIT 36 % (35-52); HEMOGLOBIN 11.3 G/DL (11.5-16.0); LYMPHOCYTES # (AUTO) 1.9 X 10^3 (1.0-4.0); LYMPHOCYTES % (AUTO) 28 % (12-44); MEAN CORPUSCULAR HEMOGLOBIN 30 PG (25-34); MEAN CORPUSCULAR HGB CONC 32 G/DL (32-36); MEAN CORPUSCULAR VOLUME 96 FL (80-99); MEAN PLATELET VOLUME 9.2 FL (7.4-10.4); MONOCYTES # (AUTO) 0.6 X 10^3 (0.0-1.0); MONOCYTES % (AUTO) 9 % (0-12); NEUTROPHILS # (AUTO) 3.7 X 10^3 (1.8-7.8); NEUTROPHILS % (AUTO) 56 % (42-75); PLATELET COUNT 252 10^3/uL (130-400); RED CELL DISTRIBUTION WIDTH 13.5 % (10.0-14.5); WHITE BLOOD COUNT 6.7 10^3/uL (4.3-11.0)
[2019-07-08 12:42] LABS: BILIRUBIN,URINE 1+ (NEGATIVE)
[2019-07-08 12:43] LABS: BACTERIA,URINE FEW /HPF; RBC,URINE RARE /HPF
[2019-07-08 12:44] LABS: HYALINE CASTS, URINE 0-2 /LPF
[2019-07-08 12:48] LABS: ALBUMIN 3.8 GM/DL (3.2-4.5); BILIRUBIN,TOTAL 0.3 MG/DL (0.1-1.0); CREATININE SERUM 2.09 MG/DL (0.60-1.30); POTASSIUM 3.9 MMOL/L (3.6-5.0); TOTAL PROTEIN 6.4 GM/DL (6.4-8.2)
--- NOTE | 2019-07-08 13:02 | Diagnostic Imaging Report ---
INDICATION: Low blood pressure, weakness. COMPARISON: 06/18/2019. TECHNIQUE: Single frontal radiograph of the chest dated 07/08/2019. FINDINGS: The left-sided Port-A-Cath is again identified and stable. Stable elevation of the right hemidiaphragm. The cardiac silhouette is within normal limits in size. No significant pulmonary vascular congestion. Surgical clips are seen overlying the left axillary region. The lungs are clear of focal pulmonary opacity. No pleural effusion. No pneumothorax. No acute osseous abnormality. IMPRESSION: Stable elevation of the right hemidiaphragm. No acute cardiopulmonary abnormality. Dictated by: Dictated on workstation # [id number]
[2019-07-08] MEDS ORDERED: ACETAMINOPHEN 500 MG TAB (TYLENOL) ONE (13:09)
--- NOTE | 2019-07-08 13:17 | NUR ---
verbal order from Dr. Grant for Tylenol 1 g at this time.
[2019-07-08] MEDS ORDERED: ACETAMINOPHEN 500 MG TAB (TYLENOL) PO STA (13:19)
--- NOTE | 2019-07-08 14:08 | NUR ---
US in room at this time
--- NOTE | 2019-07-08 14:48 | Diagnostic Imaging Report ---
PROCEDURE: US right lower extremity venous. TECHNIQUE: Multiple real-time grayscale images were obtained over the right lower extremity in various projections. Additional spectral analysis and color Doppler duplex images were also obtained. INDICATION: Pain and swelling. FINDINGS: The right common femoral, superficial femoral, popliteal veins and tibial veins demonstrate normal response to compression, augmentation, and Valsalva. There are no right lower extremity fluid collections or masses. IMPRESSION: No evidence of deep vein thrombosis in the right lower extremity. Dictated by: Dictated on workstation # [id number]
--- NOTE | 2019-07-08 15:21 | NUR ---
Pt walked with cane unassisted to restroom at this time without difficulty.
[2019-07-08 15:37] VITALS: BP 133/82
== END 2019-07-08 15:37 | disposition home or self-care (01) ==
LOC: EDUNIT# 11:26 → ER 11:27
DX: E86.0 Dehydration (principal); I95.9 Hypotension, unspecified; I10 Essential (primary) hypertension; E11.9 Type 2 diabetes mellitus without complications; I25.2 Old myocardial infarction; E78.00 Pure hypercholesterolemia, unspecified; G43.909 Migraine, unspecified, not intractable, without status migrainosus; K21.9 Gastro-esophageal reflux disease without esophagitis; D50.9 Iron deficiency anemia, unspecified; Z85.3 Personal history of malignant neoplasm of breast; Z90.710 Acquired absence of both cervix and uterus; Z98.890 Other specified postprocedural states; Z88.8 Allergy status to other drugs, medicaments and biological substances; Z88.0 Allergy status to penicillin; Z88.1 Allergy status to other antibiotic agents; Z88.6 Allergy status to analgesic agent; Z82.49 Family history of ischemic heart disease and other diseases of the circulatory system
CPT/HCPCS: 36415; 71045; 80053; 81000; 85025; 86141; 96361; 96374

== ENCOUNTER → 2019-07-27 | Outpatient (CLI) | payer MEDICARE | LOC: LAB 11:48 | PROVIDERS: ATTEND Internal Medicine Rheumatology | DX: M19.90 Unspecified osteoarthritis, unspecified site (principal) | CPT/HCPCS: 36415; 85652; 86141 ==

== ENCOUNTER → 2019-08-07 | Outpatient (CLI) | payer MEDICARE ==
[~2019-08-07] MED LIST changes: +ACHD5005 PO; +AMLO5TAB9 PO; +ASPI-983 PO; +ATOR40TA70 PO; +CHOL10007 PO; +CODE1CAP35 PO; +HYDR-3820 PO; +MTP100TCR PO; +OXYC15TA73 PO; +ROPI1TAB2 PO; +SNN187T PO; -TRAM50TA2 PO; +TRM50T PO
[2019-08-07 11:17] LABS: BILIRUBIN,TOTAL 0.3 MG/DL (0.1-1.0); CREATININE SERUM 1.26 MG/DL (0.60-1.30); POTASSIUM 4.1 MMOL/L (3.6-5.0); TOTAL PROTEIN 6.8 GM/DL (6.4-8.2)
== END ==
LOC: LAB 10:38
PROVIDERS: ATTEND Internal Medicine Cardiovascular Disease
DX: I70.1 Atherosclerosis of renal artery (principal); E78.2 Mixed hyperlipidemia; I10 Essential (primary) hypertension; I87.2 Venous insufficiency (chronic) (peripheral)
CPT/HCPCS: 36415; 80053; 80061

== ENCOUNTER → 2019-08-07 | Outpatient (CLI) | payer MEDICARE ==
[~2019-08-07] MED LIST changes: -ACHD5005 PO; -AMLO5TAB9 PO; -ASPI-983 PO; -ATOR40TA70 PO; -CHOL10007 PO; -CODE1CAP35 PO; -HYDR-3820 PO; -MTP100TCR PO; -OXYC15TA73 PO; -ROPI1TAB2 PO; -SNN187T PO; +TRAM50TA2 PO; -TRM50T PO
[2019-08-07 11:43] LABS: CREATININE SERUM 1.3 MG/DL (0.60-1.30); PHOSPHORUS 4.1 MG/DL (2.3-4.7); POTASSIUM 4.2 MMOL/L (3.6-5.0); URIC ACID 7.1 MG/DL (2.6-7.2)
[2019-08-07 12:22] LABS: BILIRUBIN,URINE NEGATIVE (NEGATIVE); CLARITY,URINE CLEAR; COLOR,URINE YELLOW; GLUCOSE, URINE (UA) NEGATIVE (NEGATIVE); KETONES,URINE NEGATIVE (NEGATIVE); LEUKOCYTE ESTERASE ,URINE NEGATIVE (NEGATIVE); NITRITE,URINE NEGATIVE (NEGATIVE); PH,URINE 8 (5-9); PROTEIN,URINE 2+ (NEGATIVE)
[2019-08-07 12:52] LABS: BACTERIA,URINE TRACE /HPF; SQUAMOUS EPITHELIAL CELL,UR 0-2 /HPF; WBC,URINE 0-2 /HPF
== END ==
LOC: LAB 10:40
PROVIDERS: ATTEND Nurse Practitioner
DX: E11.22 Type 2 diabetes mellitus with diabetic chronic kidney disease (principal); I12.9 Hypertensive chronic kidney disease with stage 1 through stage 4 chronic kidney disease, or unspecified chronic kidney disease; N18.3 Chronic kidney disease, stage 3 (moderate); I25.10 Atherosclerotic heart disease of native coronary artery without angina pectoris; R60.9 Edema, unspecified; E78.5 Hyperlipidemia, unspecified; K22.5 Diverticulum of esophagus, acquired; R80.9 Proteinuria, unspecified
CPT/HCPCS: 36415; 80069; 81000; 82306; 82570; 83970; 84156; 84550

== ENCOUNTER 2019-08-14 11:21 | Outpatient (RCR) | payer MEDICARE ==
[2019-05-25] MEDS: HEParin (CENTRAL IV FLUSH) 500 UNIT/5 ML SYR IV SCH (12:28)
[2019-05-25 12:35] VITALS: BP 135/80
[~2019-08-14] VITALS: Ht 162.6 cm; Wt 82.0 kg
[~2019-08-14 11:21] MED LIST changes: +HEParin (CENTRAL IV FLUSH) 500 UNIT/5 ML SYR ONE
[2019-08-14] MEDS: HEParin (CENTRAL IV FLUSH) 500 UNIT/5 ML SYR IV SCH (11:45)
[2019-08-14 11:55] VITALS: BP 207/113
[2019-08-14] MEDS ORDERED: ACHD5005 PO (14:15)
== END 2019-08-23 | disposition home or self-care (01) ==
LOC: SDC 11:21
PROVIDERS: ATTEND Nurse Practitioner Primary Care
DX: Z45.2 Encounter for adjustment and management of vascular access device (principal)
CPT/HCPCS: 96523

== ENCOUNTER 2019-08-14 11:56 | Emergency (ER) | payer MEDICARE ==
[~2019-08-14] VITALS: Ht 162.5 cm; Wt 81.2 kg
[~2019-08-14 11:56] MED LIST changes: -HEParin (CENTRAL IV FLUSH) 500 UNIT/5 ML SYR ONE
[2019-08-14] MEDS ORDERED: morphine INJ 10 MG/ML 1ML (SYR OR VIAL) IV STA (12:13)
[2019-08-14] MEDS ORDERED: ASPIRIN 81 MG CHEW (CHILDREN'S ASA) PO ONE (12:15)
[2019-08-14] MEDS ORDERED: ONDANSETRON 4 MG/2 ML (SDV) Z0FRAN IVP ONE (12:15)
[2019-08-14] MEDS ORDERED: meTOprolol 5 MG/5 ML (LOPRESSOR) VIAL IV ONE (12:15)
--- NOTE | 2019-08-14 12:22 | ED Chest Pain ---
General Chief Complaint: Cardiac/General Problems Stated Complaint: CP Nursing Triage Note: PT BROUGHT IN FROM [facility] FOR HIGH BLOOD PRESSURE. PT WENT TO HAVE PORT FLUSHED AND HAD BP OF 207/113. PT IS COMPLAINING OF NECK PAIN THAT RADIATES DOWN BOTH ARMS. PT RECENTLY HAD BP MEDICATION CHANGES BY DR SINGH. Nursing Sepsis Screen: No Definite Risk Source: patient Exam Limitations: no limitations History of Present Illness Date Seen by Provider: Aug 14, 2019 Time Seen by Provider: 12:07 Initial Comments Here with report of hypertension that was noted at the [facility] when she had her port flushed. At that point she did mention that she was having neck pain bilaterally that radiated to the shoulders bilaterally. She's had recent adjustments of her blood pressure medicines by Dr. Singh. She reports taking those medications as directed. Does have some nausea but no vomiting and denies diaphoresis. Pain is been persistent for the last 3-4 days. Timing/Duration: 3-4 days Severity/Quality: moderate, aching Location: other (bilateral neck) Radiation: shoulders (bilateral) Activities at Onset: none Prior CP/Workup: echocardiography, stress test ASA po POPPED CORN OVEN ATTENDANT: No NTG SL POPPED CORN OVEN ATTENDANT: No Associated Symptoms: No abdominal pain, No back pain, No diaphoresis, No edema; nausea/vomiting; No shortness of breath, No weakness Allergies and Home Medications Allergies Coded Allergies: clopidogrel (Verified Allergy, Severe, BLOOD CLOTS, 11/27/18) Penicillins (Verified Allergy, Mild, RASH, 11/27/18) carisoprodol (Verified Allergy, Mild, RASH, 11/27/18) cephalexin (Verified Allergy, Mild, RASH, 11/27/18) ketorolac (Verified Allergy, Mild, RASH, 11/27/18) prochlorperazine (Verified Allergy, Mild, RASH, 11/27/18) Carbamates (Verified Allergy, Unknown, Rash, 05/28/19) Home Medications Amlodipine Besylate 10 Mg Tablet, 10 MG PO DAILY, (Reported) Atorvastatin Calcium 80 Mg Tablet, 40 MG PO HS, (Reported) TAKE 1/2 OF 80MG TAB Baclofen 10 Mg Tablet, 10 MG PO TID PRN for MUSCLE SPASMS, (Reported) Brimonidine Tartrate 5 Ml Btl, 1 DROP OU TID, (Reported) 0.15% Butalbit/Acetamin/Caff/Codeine 1 Each Capsule, 1 CAP PO TID PRN for MIGRAINE, (Reported) Carboxymethylcellulos/Glycerin 10 Ml Drops.gel, 1 DROP OD TID, (Reported) USE RIGHT BEFORE BRIMONIDINE EYE DROPS Duloxetine HCl 30 Mg Capsule.dr, 30 MG PO DAILY, (Reported) TAKE ALONG WITH 60MG CAP FOR A TOTAL DAILY DOSE OF 90MG Duloxetine HCl 60 Mg Capsule.dr, 60 MG PO DAILY, (Reported) TAKES ALONG WITH 30MG CAPSULE FOR A TOTAL DAILY DOSE OF 90MG Folic Acid 1 Mg Tablet, 1 MG PO DAILY, (Reported) Furosemide 40 Mg Tablet, 40 MG PO DAILY, (Reported) Gabapentin 300 Mg Capsule, 300 MG PO BID, (Reported) Glipizide 5 Mg Tablet, 5 MG PO DAILY, (Reported) Hydroxychloroquine Sulfate 200 Mg Tablet, 400 MG PO DAILY, (Reported) Labetalol HCl 200 Mg Tablet, 400 MG PO DAILY, (Reported) TAKE 2 (200MG) TABS Oxycodone HCl/Acetaminophen 1 Each Tablet, 1 TAB PO Q4H PRN for PAIN-MODERATE Prescribed by: OLIVE ISAAC on 06/24/19948 Pantoprazole Sodium 40 Mg Tablet.dr, 40 MG PO DAILY, (Reported) Ropinirole HCl 0.5 Mg Tablet, 1 MG PO HS, (Reported) TAKE 2 (.5MG) TABS Ropinirole HCl 0.5 Mg Tablet, 0.5 MG PO DAILY, (Reported) Sennosides/Docusate Sodium 1 Each Tablet, 1 EA PO BID Prescribed by: OLIVE ISAAC on 06/24/19948 Topiramate 25 Mg Tablet, 25 MG PO HS, (Reported) Topiramate 50 Mg Tablet, 75 MG PO DAILY, (Reported) TAKE 1 & 1/2 OF 50MG TAB Tramadol HCl 50 Mg Tablet, 100 MG PO Q6H PRN for PAIN-MODERATE, (Reported) Patient Home Medication List Home Medication List Reviewed: Yes Review of Systems Review of Systems Constitutional: see HPI; No chills, No diaphoresis, No fever EENTM: No Symptoms Reported Respiratory: No Symptoms Reported Cardiovascular: See HPI; Denies Lightheadedness Gastrointestinal: Denies Nausea, Denies Vomiting Genitourinary: No Symptoms Reported Musculoskeletal: No back pain, No joint pain; muscle pain Skin: no symptoms reported Psychiatric/Neurological: No Symptoms Reported All Other Systems Reviewed Negative Unless Noted: Yes Past Srgnmui-Gtcwil-Dndgrc Hx Past Med/Social Hx: Reviewed Nursing Past Med/Soc Hx Patient Social History Alcohol Use: Denies Use Recreational Drug Use: No Smoking Status: Never a Smoker 2nd Hand Smoke Exposure: No Recent Foreign Travel: No Contact w/Someone Who Travel: No Recent Infectious Disease Expo: No Recent Hopitalizations: No Immunizations Up To Date Date of Pneumonia Vaccine: Jul 29, 2017 Date of Influenza Vaccine: Jul 28, 2018 Seasonal Allergies Seasonal Allergies: No Past Medical History Surgeries: Yes (R CTR, espohageal ligation x2, Hernia, L RCR, L TKR, laparotomy, MRSA infec) Hysterectomy, Joint Replacement, Orthopedic, Thyroidectomy Respiratory: No Currently Using CPAP: No Currently Using BIPAP: No Cardiac: Yes (HX HEART CATH-STENT) Heart Attack, High Cholesterol, Hypertension Neurological: Yes Headaches /Migraines Sexually Transmitted Disease: No HIV/AIDS: No Genitourinary: Yes (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, STAGE 2-kidneY DISEASE ) Bladder Infection, Renal Failure Gastrointestinal: Yes (HX GI BLEED, zenkers syndrome-chokes easily, hx hep A) Gastroesophageal Reflux, Hepatitis Musculoskeletal: Yes (OSTEOARTHRITIS, BULGING DISCS) Arthritis, Chronic Back Pain Endocrine: Yes (partial thyroidectomy) Diabetes, Non-Insulin dep HEENT: Yes (GLASSES, UPPER DENTURES) Loss of Vision: Bilateral Cancer: Yes Breast Did You Recieve Any Treatments: Yes What Type of Treatment Did You: Radiation, Surgical Intervention Psychosocial: No Integumentary: No Blood Disorders: Yes (IRON DEFFICIENCY ANEMIA-GETS IRON INFUSIONS) Adverse Reaction/Blood Tranf: No (HAS HAD BLOOD WITH NO REACTION) Family Medical History Reviewed Nursing Family Hx Hypertension G8 BROTHER Not obtainable due to adoption 19 FATHER No Pertinent Family Hx Physical Exam Vital Signs Vital Signs - First Documented 08/14/19 11:58 Pulse 93 Resp 21 B/P (MAP) 201/112 (141) Pulse Ox 97 O2 Delivery Room Air Capillary Refill : Less Than 3 Seconds Height, Weight, BMI Height: 5'4.00" Weight: 216lbs. 4.2oz. 98.292810px; 30.00 BMI Method:Stated General Appearance: No Apparent Distress, WD/WN HEENT: PERRL/EOMI, Pharynx Normal Neck: Non Tender, Supple Respiratory: Lungs Clear, Normal Breath Sounds Cardiovascular: Regular Rate, Rhythm, No Murmur Gastrointestinal: Normal Bowel Sounds, No Organomegaly, No Pulsatile Mass, Non Tender, Soft Extremity: Normal Range of Motion, Non Tender Neurologic/Psychiatric: Alert, Oriented x3 Skin: Normal Color, Warm/Dry Progress/Results/Core Measures Results/Orders Lab Results Laboratory Tests Test 08/14/19 12:20 Range/Units White Blood Count 7.5 4.3-11.0 10^3/uL Red Blood Count 4.18 L 4.35-5.85 10^6/uL Hemoglobin 12.3 11.5-16.0 G/DL Hematocrit 38 35-52 % Mean Corpuscular Volume 92 80-99 FL Mean Corpuscular Hemoglobin 29 25-34 PG Mean Corpuscular Hemoglobin Concent 32 32-36 G/DL Red Cell Distribution Width 12.7 10.0-14.5 % Platelet Count 255 130-400 10^3/uL Mean Platelet Volume 9.5 7.4-10.4 FL Neutrophils (%) (Auto) 59 42-75 % Lymphocytes (%) (Auto) 27 12-44 % Monocytes (%) (Auto) 10 0-12 % Eosinophils (%) (Auto) 4 0-10 % Basophils (%) (Auto) 1 0-10 % Neutrophils # (Auto) 4.4 1.8-7.8 X 10^3 Lymphocytes # (Auto) 2.0 1.0-4.0 X 10^3 Monocytes # (Auto) 0.7 0.0-1.0 X 10^3 Eosinophils # (Auto) 0.3 0.0-0.3 10^3/uL Basophils # (Auto) 0.0 0.0-0.1 10^3/uL Prothrombin Time 13.0 12.2-14.7 SEC INR Comment 0.9 0.8-1.4 Activated Partial Thromboplast Time 48 H 24-35 SEC Sodium Level 141 135-145 MMOL/L Potassium Level 4.0 3.6-5.0 MMOL/L Chloride Level 108 H 98-107 MMOL/L Carbon Dioxide Level 25 21-32 MMOL/L Anion Gap 8 5-14 MMOL/L Blood Urea Nitrogen 18 7-18 MG/DL Creatinine 1.28 0.60-1.30 MG/DL Estimat Glomerular Filtration Rate 41 BUN/Creatinine Ratio 14 Glucose Level 72 70-105 MG/DL Calcium Level 8.7 8.5-10.1 MG/DL Corrected Calcium 8.8 8.5-10.1 MG/DL Magnesium Level 2.0 1.6-2.4 MG/DL Total Bilirubin 0.2 0.1-1.0 MG/DL Aspartate Amino Transf (AST/SGOT) 12 5-34 U/L Alanine Aminotransferase (ALT/SGPT) 11 0-55 U/L Alkaline Phosphatase 132 40-136 U/L Myoglobin 59.6 10.0-92.0 NG/ML Troponin I < 0.028 <0.028 NG/ML Total Protein 6.5 6.4-8.2 GM/DL Albumin 3.9 3.2-4.5 GM/DL My Orders Orders - IRMA TRAN MD Cbc With Automated Diff (08/14/19 12:13) Magnesium (08/14/19 12:13) Chest 1 View, Ap/Pa Only (08/14/19 12:13) Ekg Tracing (08/14/19 12:13) Cardiac Profile 1 (08/14/19 12:13) Comprehensive Metabolic Panel (08/14/19 12:13) Myoglobin Serum (08/14/19 12:13) Protime With Inr (08/14/19 12:13) Partial Thromboplastin Time (08/14/19 12:13) O2 (08/14/19 12:13) Monitor-Rhythm Ecg Trace Only (08/14/19 12:13) Lipid Panel (08/15/19 06:00) Ed Iv/Invasive Line Start (08/14/19 12:13) Aspirin Chewable Tablet (Baby Aspirin Ch (08/14/19 12:15) Morphine Injection (Morphine Injection (08/14/19 12:13) Ondansetron Injection (Zofran Injectio (08/14/19 12:15) Metoprolol Tartrate Injection (Lopressor (08/14/19 12:15) Amlodipine Tablet (Norvasc Tablet) (08/14/19 12:30) Hydrocodone/Apap 5/325 Tablet (Lortab 5 (08/14/19 14:15) Medications Given in ED Current Medications Medications Dose Ordered Sig/Ana María Route Start Time Stop Time Status Last Admin Dose Admin Amlodipine Besylate 5 mg ONCE ONCE PO 08/14/19 12:30 08/14/19 12:31 DC 08/14/19 12:35 5 MG Aspirin 324 mg ONCE ONCE PO 08/14/19 12:15 08/14/19 12:17 DC 08/14/19 12:34 324 MG Metoprolol Tartrate 5 mg ONCE ONCE IV 08/14/19 12:15 08/14/19 12:17 DC 08/14/19 12:35 5 MG Ondansetron HCl 4 mg ONCE ONCE IVP 08/14/19 12:15 08/14/19 12:17 DC 08/14/19 12:35 4 MG Vital Signs/I&O 08/14/19 11:58 Pulse 93 Resp 21 B/P (MAP) 201/112 (141) Pulse Ox 97 O2 Delivery Room Air Blood Pressure Mean: 141 Progress Progress Note : Progress Note Seen and evaluated. IV, labs, EKG and chest x-ray ordered. ASA 324 mg by mouth, amlodipine 5 mg by mouth, Zofran 4 mg IV and morphine 2 mg IV ordered. Monitor patient. 1408: Patient is doing better with respect to blood pressure with a range of 170s over 90s currently. Does have continuing neck pain but this is actually been going on for over a week. She states her tramadol does not help. Hydrocodone 5/325 one tab by mouth given and we will give short course of that as the discharge medicine. We will increase her amlodipine to 5 mg daily per the direction of Dr. Singh and she can call him for further instructions and or changes as needed. She will be counseled to log her blood pressure. Discharged home with return precautions. Patient verbalize understanding instructions and agreement with plan. Initial ECG Impression Date: Aug 14, 2019 Initial ECG Impression Time: 12:23 Initial ECG Rate: 93 Initial ECG Rhythm: Normal Sinus Comment Sinus rhythm with normal axis. No evidence of ST elevation GA. Similar to previous of 06/13/19. Interpreted by me. Diagnostic Imaging Diagonstic Imaging: Xray Plain Films/CT/US/NM/MRI: chest Comments [facility] [place], [place] NAME: KEO AGUIRRE MED REC#: [id number] PT STATUS: REG ER : 1950 PHYSICIAN: IRMA TRAN MD ADMIT DATE: 08/14/19/ER Draft Date of Exam:08/14/19 CHEST 1 VIEW, AP/PA ONLY PATIENT HISTORY: Hypertension. Neck pain radiating into the arms. TECHNIQUE: Frontal view of the chest. COMPARISON: 07/08/2019. FINDINGS: Lung volumes are low, with elevation of the right hemidiaphragm. The left-sided Port-A-Cath tip projects over the cavoatrial junction and appears stable. There is mild prominence of the cardiac silhouette, which may be due to technique. No pneumothorax or pleural effusion is seen. No acute osseous abnormality is identified. IMPRESSION: Low lung volumes with no acute pulmonary abnormality seen. Dictated on workstation # [id number] Dict: 08/14/19 1328 Trans: 08/14/19 1331 [id number] Interpreted by: DENNIS CEE MD Electronically signed by: Departure Impression Primary Impression: Uncontrolled hypertension Additional Impression: Neck pain Disposition: 01 HOME, SELF-CARE Condition: Stable Departure-Patient Inst. Decision time for Depature: 14:10 Referrals: JOSIANE KITCHEN DO (PCP) Primary Care Physician BARRETT VILLANUEVA APRN (Family) Primary Care Physician ABBI SINGH MD Patient Instructions: Chest Pain (DC), High Blood Pressure in Adults, Neck Pain Add. Discharge Instructions: All discharge instructions reviewed with patient and/or family. Voiced understanding. Take medications as directed. You will need to increase her amlodipine to 5 mg daily up from the 2.[address] Singh next week for recheck. You should log her blood pressures daily and let him know what those results are. Take other medications as prescribed. Return for worse pain, fever, vomiting, weakness, breathing problems, sweating or other concerns as needed. IRMA TRAN MD Aug 14, 2019 12:22
[2019-08-14] MEDS ORDERED: amLODIPine 5 MG (NORVASC) TAB PO ONE (12:30)
[2019-08-14 12:34] LABS: BASOPHILS % (AUTO) 1 % (0-10); EOSINOPHILS # (AUTO) 0.3 10^3/uL (0.0-0.3); EOSINOPHILS % (AUTO) 4 % (0-10); HEMATOCRIT 38 % (35-52); HEMOGLOBIN 12.3 G/DL (11.5-16.0); LYMPHOCYTES % (AUTO) 27 % (12-44); MEAN CORPUSCULAR HEMOGLOBIN 29 PG (25-34); MEAN CORPUSCULAR HGB CONC 32 G/DL (32-36); MEAN CORPUSCULAR VOLUME 92 FL (80-99); MEAN PLATELET VOLUME 9.5 FL (7.4-10.4); MONOCYTES # (AUTO) 0.7 X 10^3 (0.0-1.0); MONOCYTES % (AUTO) 10 % (0-12); NEUTROPHILS # (AUTO) 4.4 X 10^3 (1.8-7.8); NEUTROPHILS % (AUTO) 59 % (42-75); PLATELET COUNT 255 10^3/uL (130-400); RED CELL DISTRIBUTION WIDTH 12.7 % (10.0-14.5); WHITE BLOOD COUNT 7.5 10^3/uL (4.3-11.0)
[2019-08-14 12:45] LABS: INR 0.9 (0.8-1.4)
[2019-08-14 12:51] LABS: ALANINE AMINOTRANSFERASE 11 U/L (0-55); ALBUMIN 3.9 GM/DL (3.2-4.5); ALKALINE PHOSPHATASE 132 U/L (40-136); BILIRUBIN,TOTAL 0.2 MG/DL (0.1-1.0); BUN/CREATININE RATIO 14; CALCIUM 8.7 MG/DL (8.5-10.1); CARBON DIOXIDE 25 MMOL/L (21-32); CHLORIDE 108 MMOL/L (98-107); CREATININE SERUM 1.28 MG/DL (0.60-1.30); GFR ESTIMATED 41; GLUCOSE 72 MG/DL (70-105); SODIUM 141 MMOL/L (135-145); TOTAL PROTEIN 6.5 GM/DL (6.4-8.2)
--- NOTE | 2019-08-14 13:32 | Diagnostic Imaging Report ---
PATIENT HISTORY: Hypertension. Neck pain radiating into the arms. TECHNIQUE: Frontal view of the chest. COMPARISON: 07/08/2019. FINDINGS: Lung volumes are low, with elevation of the right hemidiaphragm. The left-sided Port-A-Cath tip projects over the cavoatrial junction and appears stable. There is mild prominence of the cardiac silhouette, which may be due to technique. No pneumothorax or pleural effusion is seen. No acute osseous abnormality is identified. IMPRESSION: Low lung volumes with no acute pulmonary abnormality seen. Dictated by: Dictated on workstation # [id number]
[2019-08-14] MEDS ORDERED: HYDROcodone/APAP 5 MG/325 MG (LORTAB) TAB PO ONE (14:15)
[2019-08-14] MEDS ORDERED: ACHD5005 PO (14:15)
[2019-08-14 14:22] VITALS: BP 176/97
== END 2019-08-14 14:22 | disposition home or self-care (01) ==
LOC: EDUNIT# 11:56 → ER 11:57
DX: I12.9 Hypertensive chronic kidney disease with stage 1 through stage 4 chronic kidney disease, or unspecified chronic kidney disease (principal); E11.22 Type 2 diabetes mellitus with diabetic chronic kidney disease; N18.2 Chronic kidney disease, stage 2 (mild); M54.2 Cervicalgia; I25.2 Old myocardial infarction; E78.00 Pure hypercholesterolemia, unspecified; G43.909 Migraine, unspecified, not intractable, without status migrainosus; D50.9 Iron deficiency anemia, unspecified; K21.9 Gastro-esophageal reflux disease without esophagitis; Z95.5 Presence of coronary angioplasty implant and graft; Z79.02 Long term (current) use of antithrombotics/antiplatelets; Z88.0 Allergy status to penicillin; Z88.6 Allergy status to analgesic agent; Z99.2 Dependence on renal dialysis; Z88.8 Allergy status to other drugs, medicaments and biological substances; Z90.710 Acquired absence of both cervix and uterus; Z85.3 Personal history of malignant neoplasm of breast; Z82.49 Family history of ischemic heart disease and other diseases of the circulatory system
CPT/HCPCS: 36415; 71045; 80053; 83735; 83874; 84484; 85025; 85610; 85730; 93005; 93041; 96374; 96375

== ENCOUNTER 2019-08-21 14:23 | Outpatient (RCR) | payer MEDICARE ==
[2019-07-02 13:03] LABS: ABSOLUTE RETIC # 40 10e9/L (24-90); BASOPHILS % (AUTO) 0 % (0-10); EOSINOPHILS # (AUTO) 0.4 10^3/uL (0.0-0.3); EOSINOPHILS % (AUTO) 4 % (0-10); HEMATOCRIT 35 % (35-52); HEMOGLOBIN 10.7 G/DL (11.5-16.0); LYMPHOCYTES % (AUTO) 22 % (12-44); MEAN CORPUSCULAR HEMOGLOBIN 30 PG (25-34); MEAN CORPUSCULAR HGB CONC 31 G/DL (32-36); MEAN CORPUSCULAR VOLUME 98 FL (80-99); MEAN PLATELET VOLUME 9.5 FL (7.4-10.4); MONOCYTES % (AUTO) 11 % (0-12); NEUTROPHILS # (AUTO) 5.8 X 10^3 (1.8-7.8); NEUTROPHILS % (AUTO) 63 % (42-75); PLATELET COUNT 298 10^3/uL (130-400); RETICULOCYTE % 1.12 % (0.50-2.40); WHITE BLOOD COUNT 9.2 10^3/uL (4.3-11.0)
[2019-07-02 13:26] LABS: ALBUMIN 3.7 GM/DL (3.2-4.5); BILIRUBIN,TOTAL 0.3 MG/DL (0.1-1.0); CREATININE SERUM 2.01 MG/DL (0.60-1.30); POTASSIUM 4.2 MMOL/L (3.6-5.0); TOTAL PROTEIN 6.4 GM/DL (6.4-8.2)
[2019-07-02 13:50] LABS: EOSINOPHILS % (MANUAL) 5 %; LYMPHOCYTES % (MANUAL) 22 %; MONOCYTES % (MANUAL) 16 %; NEUTROPHILS % (MANUAL) 57 %; RBC MORPH NORMAL
[~2019-08-21 14:23] MED LIST changes: +ACHD5005 PO; +DARBEPOETIN 40 MCG/ML (ARANESP) 1 ML VIAL SC SCH; +NS IV 1000 ML (CANCER CTR) 1,000 ML ONE; +ONDANSETRON MDV (CANCER CENTER 8 MG in NS (IVPB) CANCER CENTER 50 ML IV ONE
[2019-09-03] MEDS ORDERED: ATOR40TA70 PO (14:08)
[2019-09-03] MEDS ORDERED: METO-395 PO (14:08)
[2019-09-03] MEDS ORDERED: SENN-148 PO (14:36)
[2019-09-03] MEDS ORDERED: HYDR-3820 PO (14:36)
[2019-09-03] MEDS ORDERED: ONDA4TAB11 PO (14:36)
[2019-09-03] MEDS ORDERED: CHOL10007 PO (14:36)
[2019-09-03] MEDS ORDERED: ASPI-983 PO (14:36)
[2019-09-03] MEDS ORDERED: ROPI1TAB2 PO ×2 (15:01)
[2019-09-03] MEDS ORDERED: AMLO5TAB9 PO (15:01)
[2019-09-03] MEDS ORDERED: CODE1CAP35 PO (15:01)
[2019-09-03] MEDS ORDERED: TRAM50TA2 PO (15:08)
[2019-09-06] MEDS ORDERED: HYDR-3820 PO (15:27)
[2019-09-06] MEDS ORDERED: ASPI-983 PO (15:27)
[2019-09-06] MEDS ORDERED: OXYC15TA73 PO (15:27)
== END 2019-09-30 | disposition home or self-care (01) ==
LOC: ONC 14:23
PROVIDERS: ATTEND Internal Medicine Hematology & Oncology
DX: I82.409 Acute embolism and thrombosis of unspecified deep veins of unspecified lower extremity (principal); Z85.3 Personal history of malignant neoplasm of breast
CPT/HCPCS: 80053; 82607; 82728; 82746; 83540; 84466; 85007; 85027; 85045; 96361; 96372; 96374; 99213

== ENCOUNTER 2019-09-03 08:30 | Inpatient (IN) | payer MEDICARE ==
[~2019-09-03] VITALS: Ht 162 cm; Wt 88.8 kg
[~2019-09-03 08:30] MED LIST changes: -DARBEPOETIN 40 MCG/ML (ARANESP) 1 ML VIAL SC SCH; -NS IV 1000 ML (CANCER CTR) 1,000 ML ONE; -ONDANSETRON MDV (CANCER CENTER 8 MG in NS (IVPB) CANCER CENTER 50 ML IV ONE
[2019-09-03] MEDS ORDERED: LOPERAMIDE 2 MG (IMODIUM) TABLET PO PRN (09:00)
[2019-09-03] MEDS ORDERED: diphenhydrAMINE 25 MG TAB (BENADRYL) PO PRN (09:00)
[2019-09-03] MEDS ORDERED: CALCIUM CARBONATE 500 MG (TUMS) TAB.CHEW PO PRN (09:00)
[2019-09-03] MEDS ORDERED: ONDANSETRON 4 MG (ZOFRAN) ORAL DISSOLVE TAB PO PRN (09:00)
[2019-09-03] MEDS ORDERED: ACETAMINOPHEN 500 MG TAB (TYLENOL) PO PRN (09:00)
[2019-09-03] MEDS ORDERED: BISACODYL 10 MG SUPP (DULCOLAX) PR PRN (09:00)
[2019-09-03] MEDS ORDERED: HYDROcodone/APAP 5 MG/325 MG (LORTAB) TAB PO PRN (09:00)
[2019-09-03] MEDS ORDERED: DOCUSATE SODIUM 100 MG (COLACE) CAP PO PRN (09:00)
[2019-09-03] MEDS ORDERED: ALPRAZolam 0.25 MG (XANAX) TAB PO PRN (09:00)
[2019-09-03] MEDS ORDERED: MELATONIN 3 MG TABLET PO PRN (09:00)
[2019-09-03] MEDS ORDERED: LACTULOSE SYRUP 10GM/15ML (ENULOSE) 30ML UDC PO PRN (09:00)
[2019-09-03] MEDS ORDERED: guaiFENesin/CODEINE (ROBITUSSIN AC) 10ML UDC PO PRN (09:00)
[2019-09-03] MEDS ORDERED: FLEET ENEMA ADULT 1 EA BTL PR PRN (09:00)
--- NOTE | 2019-09-03 11:35 | NUR ---
Pt admitted to room 223, with an admitting diagnosis of Rt Reverse Total Shoulder from [facility], via w/c, accompanied by 2 PT, & son. KEO AGUIRRE introduced to surroundings, call light, bed controls, phone, TV, temperature control, lights, meal times, smoking policy, visitor policy, side rail policy, bathrooms and showers. Patient Rights provided to patient in the handbook. KEO AGUIRRE verbalizes understanding that [facility] is not responsible for the loss or damage to any personal effects or valuables that are kept in the patients posession during their hospitalization. The following Patient Care Plans were discussed with the pt: Discharge Planning, Self Care Deficit, Impaired Mobility, Potential for fall/injury KEO AGUIRRE verbalizes understanding of Interdisciplinary Patient Education. Patient and/or family were informed about the Rapid Response Team and its purpose. Patient received Patient Rights Booklet, which includes Privacy Act Statement and Data Collection Information Summary. PT took pt into gym for evaluation immediately upon arrival.
--- NOTE | 2019-09-03 12:02 | Physical Therapy Evaluation ---
PT Evaluation-General Medical Diagnosis Admission Date 09/03/19 Medical Diagnosis: S/P R TSR Onset Date: Sep 01, 2019 Therapy Diagnosis Therapy Diagnosis: impaired balance, decreased activity lizz, general weakness Height/Weight Height (Feet): 5 Height (Inches): 4.00 Weight (Pounds): 216 Weight (Ounces): 4.2 Precautions Precautions/Isolations: Fall Prevention, Standard Precautions Weight Bear Status right side total shoulder precautions Referral Physician: Molly Reason for Referral: Evaluation/Treatment Medical History Pertinent Medical History: DM, HTN, OA Additional Medical History Past Medical History Surgeries: Hysterectomy, Joint Replacement, Orthopedic, Thyroidectomy Respiratory: COPD Currently Using CPAP: No Currently Using BIPAP: No Cardiac: Heart Attack, High Cholesterol, Hypertension Neurological: Headaches /Migraines, Neuropathy Sexually Transmitted Disease: No HIV/AIDS: No Genitourinary: Bladder Infection, Renal Failure Gastrointestinal: Gastroesophageal Reflux, Hepatitis Musculoskeletal: Arthritis, Chronic Back Pain Endocrine: Diabetes, Non-Insulin dep Loss of Vision: Bilateral Cancer: Breast Reviewed History: Yes Social History Home: Single Level Current Living Status: Alone Entry Into Home: Stairs With Railing PT Steps Into Home: 2 Prior Prior Level of Function SCALE: Activities may be completed with or without assistive devices. 6-Xvvzaiyond-qpeziha completes the activity by him/herself with no assistance from a helper. 5-Set-up or Clean-up Assistance-helper sets up or cleans up; patient completes activity. [place] assists only prior to or following the activity. 4-Supervision or Touching Assistance-helper provides verbal cues and/or touching/steadying and/or contact guard assistance as patient completes activity. Assistance may be provided throughout the activity or intermittently. 3-Partial/Moderate Assistance-helper does LESS THAN HALF the effort. [place] lifts, holds or supports trunk or limbs, but provides less than half the effort. 2-Substantial/Maximal Assistance-helper does MORE THAN HALF the effort. [place] lifts or holds trunk or limbs and provides more than half the effort. 5-Evzsiggmr-qslmue does ALL the effort. Patient does none of the effort to complete the activity. Or, the assistance of 2 or more helpers is required for the patient to complete the activity. If activity was not attempted, code reason: 7-Patient Refused. 9-Not Applicable-not attempted and the patient did not perform the activity before the current illness, exacerbation or injury. 10-Not Attempted due to Environmental Limitations-(lack of equipment, weather restraints, etc.). 88-Not Attempted due to Medical Conditions or Safety Concerns. Bed Mobility: 6 Transfers (B,C,W/C): 6 Gait: 6 Stairs: 6 Indoor Mobility (Ambulation): Independent Stairs: Independent PT Evaluation-Current Subjective pt received out of car with son, pt agrees to starting with therapy at this time. pt reports 10/10 pain. Pt/Family Goals pt goal is to get strength back to get home to her cats. Objective Patient Orientation: Person, Place, Time, Situation Problem Solving: Good ROM/Strength Strength Lower Extremities R LE globally 4+/5 L LE hip flexion 4/5, knee flexion 4/5, knee extension 4-/5 Integumentary/Posture Integumentary see nursing notes. Bowel Incontinence: No Bladder Incontinence: No Sensory Vision: Wears Glasses Hearing: Functional Sensation Right Upper Extremit: Intact Sensation Left Upper Extremity: Intact Sensation Right Lower Extremit: Intact Sensation Left Lower Extremity: Intact Transfers Roll Left to Right (QC): 6 (Pt can roll to left) Sit to Lying (QC): 4 (SBA) Lying to Sitting/Side of Bed(Q: 3 (Rohit pulls up from PT hand) Sit to Stand (QC): 4 (CGA) Chair/Gwc-qv-Iwefg Xfer(QC): 4 (CGA) Car Transfer (QC): 4 (CGA) Gait Does the Patient Walk?: Yes Mode of Locomotion: Walk Anticipated Mode of Locomotion: Walk Distance: 3=150 ft Walk 10 feet (QC): 4 (CGA) Walk 50 ft with 2 Turns(QC): 4 (CGA) Walk 150 ft (QC): 4 (CGA) Walking 10ft/uneven surface-QC: 4 (CGA) Distance: 150' Gait Assistive Device: None Comments/Gait Description pt ambulates with a R toe out gait abnormality. Pt balance is slightly impaired during ambulation as pt takes off walking and has multiple minor LOB forward and to the R that she can self correct. Wheelchair Training Does the Pt Use a Wheelchair?: No Stairs 1 Step (curb) (QC): 4 (CGA) 4 Steps (QC): 88 12 Steps (QC): 88 Balance Sitting Static: Normal Sitting Dynamic: Normal Standing Static: Normal Standing Dynamic: Fair Picking up an Object (QC): 3 (Rohit) Treatment pt performed transfer training, bed mobility training, skilled ambulation tr aining, and education pt performed seated functional strengthening exercises (10 reps): LE marching, LAQ's, R wrist flexion/extension, R wrist ulnar/radial deviations, R turbine technician squeezes, R elbow flexion/extension AAROM. Assessment/Needs Pt is able to stand and transfer and ambulate with only CGA secondary to some minor LOB on her feet. Pt is ambulating without an AD at this time. Pt c/o lightheadedness and SOB after ambulation but told this PT "don't worry about it" as I attempted to gauge how the pt was recovering. Rehab Potential: Fair PT Short Term Goals Short Term Goals Time Frame: Sep 10, 2019 Gait Distance Comment: 200' Gait Assistive Device: None (SBA) # of Steps: 4 (SBA) PT Pcmh Specialist Goals Pcmh Specialist Goals PT Group Home Goals Time Frame: Sep 24, 2019 Sit to Lying (QC): 6 Lying-Sitting on Side/Bed(QC): 6 Sit to Stand (QC): 6 Roll Left to Right (QC): 6 Chair/Ljd-en-Hfbor Xfer(QC): 6 Car Transfer (QC): 6 Does the Patient Walk: Yes Distance: 500' Walk 10 feet (QC): 6 Walk 10ft-Uneven Surface(QC): 6 Walk 50ft with 2 Turns (QC): 6 Walk 150 ft (QC): 6 Gait Assistive Device: None # of Steps: 4 1 Step (curb) (QC): 6 4 Steps (QC): 6 Picking up an Object (QC): 6 PT Plan Problem List Problem List: Activity Tolerance, Functional Strength, Safety, Balance, Gait, Transfer, Bed Mobility, ROM Treatment/Plan Treatment Plan: Continue Plan of Care Treatment Plan: Bed Mobility, Concurrent Therapy, Education, Functional Activity Tay, Functional Strength, Group Therapy, Gait, Safety, Therapeutic Exercise, Transfers Frequency: At least 5 of 7 days/Wk (IRF) Estimated Hrs Per Day: 1.5 hours per day Patient and/or Family Agrees t: Yes Safety Risks/Education Patient Education: Gait Training, Transfer Techniques, Steps, Reviewed Precautions, Correct Positioning, Safety Issues Teaching Recipient: Patient Teaching Methods: Demonstration, Discussion Response to Teaching: Return Demonstration, Reinforcement Needed Discharge Recommendations Plan Patient will perform bed mobility and transfer training, balance and endurance training, functional strengthening, stair training, gait training, and education, to improve functional mobility and independence at home. Therapy Discharge Recommendati: Other, See Comments (home with family) Time/GCodes Time In: 1130 Time Out: 1200 Total Billed Treatment Time: 30 Total Billed Treatment 1 visit EVL 15' FA 15' VIOLET GONZALES PT Sep 03, 2019 12:02 POS
--- NOTE | 2019-09-03 12:47 | PM&R Post Admission Assessment ---
PM&R HP Date of Visit: Sep 03, 2019 Time of Visit: 12:30 History of Present Illness Chief complaint: s/p right reverse shoulder replacement by Dr. Meneses. HPI: This is a 69yoWF clinic Pt of [facility] who was known to me from inpatient rehab stay in May due to complications with a slow recovery fo becca knee joint replacement at that time who presents for acute rehab due to right reverse shoulder and she is right hand dominant. She actually has weaned completely off oxygen. She had seen nephrology who evaluated her kidney function to be stable and no significant issues there and overall had been doing very well since I last saw her when she was discharged from inpatient rehab. She sees Leida Benson ETCHER APPRENTICE at [facility], Dr. Singh (cardiology), Dr. Garcia (pulmonology), and nephrology in [place]. Bowels are moving, she is walking well, she will just need about 5-7 days to be closely monitored, labs including because of high risk for renal insufficiency and will be able to return home to live alone. Past Nxdtoay-Kwftif-Rcxdsl Hx Past Med/Social Hx: Reviewed Nursing Past Med/Soc Hx, Reviewed and Corrections made Patient Social History Marrital Status: single Employed/Student: retired Smoking Status: Former Smoker 2nd Hand Smoke Exposure: No Recent Hopitalizations: No Immunizations Up To Date Date of Pneumonia Vaccine: Jul 29, 2017 Date of Influenza Vaccine: Jul 28, 2018 Seasonal Allergies Seasonal Allergies: No Past Medical History Surgeries: Hysterectomy, Joint Replacement, Orthopedic, Thyroidectomy Respiratory: COPD Currently Using CPAP: No Currently Using BIPAP: No Cardiac: Heart Attack, High Cholesterol, Hypertension Neurological: Headaches /Migraines, Neuropathy Sexually Transmitted Disease: No HIV/AIDS: No Genitourinary: Bladder Infection, Renal Failure Gastrointestinal: Gastroesophageal Reflux, Hepatitis Musculoskeletal: Arthritis, Chronic Back Pain Endocrine: Diabetes, Non-Insulin dep Loss of Vision: Bilateral Cancer: Breast Did You Recieve Any Treatments: Yes What Type of Treatment Did You: Radiation, Surgical Intervention History of Blood Disorders: Yes (IRON DEFFICIENCY ANEMIA-GETS IRON INFUSIONS) Adverse Reaction to Blood [place]ar[place]: No (HAS HAD BLOOD WITH NO REACTION) Family History Hypertension G8 BROTHER Not obtainable due to adoption 19 FATHER No Pertinent Family Hx Prior Level of Function Bed Mobility: 6 Transfers: 6 Gait: 6 Stairs: 6 Indoor Mobility (Ambulation): Independent Stairs: Independent Current Level of Fuctioning Roll Left to Right: 6 Sit to Lyin Lying to Sitting/Side of Bed: 3 Sit to Stand: 4 Chair/Tdr-dw-Rwxhy Xfer: 4 Car Transfer: 4 Does the Patient Walk: Yes Mode of Locomotion: Walk Anticipated Mode of Locomotion: Walk Distance: 3=150 ft Walk 10 feet: 4 Walk 50 ft with 2 Turns: 4 Walk 150 ft: 4 Walking 10ft on uneven surface: 4 Gait Assistive Device: None Does the Pt Use a Wheelchair: No 1 Step (curb): 4 4 Steps: 88 12 Steps: 88 Picking up an Object: 3 PM&R Allergy/Meds/Data Review Allergies Coded Allergies: clopidogrel (Verified Allergy, Severe, BLOOD CLOTS, 11/27/18) Penicillins (Verified Allergy, Mild, RASH, 11/27/18) carisoprodol (Verified Allergy, Mild, RASH, 11/27/18) cephalexin (Verified Allergy, Mild, RASH, 11/27/18) ketorolac (Verified Allergy, Mild, RASH, 11/27/18) prochlorperazine (Verified Allergy, Mild, RASH, 11/27/18) Carbamates (Verified Allergy, Unknown, Rash, 05/28/19) Home Medications Scheduled Amlodipine Besylate (Amlodipine Besylate), 5 MG PO DAILY, (Reported) Aspirin (Aspirin EC), 81 MG PO DAILY, (Reported) Atorvastatin Calcium (Atorvastatin Calcium), 40 MG PO HS, (Reported) Brimonidine Tartrate (Brimonidine Tartrate), 1 DROP OU TID, (Reported) Carboxymethylcellulos/Glycerin (Refresh Optive Gel Eye Drops), 1 DROP OD TID, (Reported) Cholecalciferol (Vitamin D3) (Vitamin D3), 1,000 UNIT PO DAILY, (Reported) Duloxetine HCl (Cymbalta), 30 MG PO DAILY, (Reported) Duloxetine HCl (Cymbalta), 60 MG PO DAILY, (Reported) Folic Acid (Folic Acid), 1 MG PO DAILY, (Reported) Furosemide (Furosemide), 40 MG PO DAILY, (Reported) Gabapentin (Gabapentin), 300 MG PO TID, (Reported) Glipizide (Glipizide), 2.5 MG PO DAILY, (Reported) Hydroxychloroquine Sulfate (Hydroxychloroquine Sulfate), 200 MG PO BID, (Reported) Metoprolol Succinate (Metoprolol Succinate), 100 MG PO DAILY, (Reported) Pantoprazole Sodium (Pantoprazole Sodium), 40 MG PO DAILY, (Reported) Ropinirole HCl (Ropinirole HCl), 1 MG PO DAILY, (Reported) Ropinirole HCl (Ropinirole HCl), 2 MG PO HS, (Reported) Sennosides (Senna Lax), 8.6 MG PO BID, (Reported) Topiramate (Topiramate), 25 MG PO HS, (Reported) Topiramate (Topiramate), 75 MG PO DAILY, (Reported) Scheduled PRN Baclofen (Baclofen), 10 MG PO TID PRN for MUSCLE SPASMS, (Reported) Codeine/Butalbital/ASA/Caffein (Fiorinal-Cod 74-00-745-40 Cap), 1 CAP PO TID PRN for MIGRAINE, (Reported) Hydrocodone/Acetaminophen (Hydrocodon-Acetaminophn 10-325), 1 TAB PO Q4H PRN for PAIN-MODERATE (5-7), (Reported) Ondansetron (Ondansetron Odt), 4 MG PO Q4H PRN for NAUSEA/VOMITING-1ST LINE, (Reported) Tramadol HCl (Tramadol HCl), 50-100 MG PO QID PRN for PAIN-MODERATE (5-7), (Reported) Discontinued Medications Amlodipine Besylate (Amlodipine Besylate), 10 MG PO DAILY, (Reported) Discontinued Reason: New Order Butalbit/Acetamin/Caff/Codeine (Ixcnjp-Kjqu-Hnaqlyqiahm-Codein), 1 CAP PO TID PRN for MIGRAINE, (Reported) Discontinued Reason: Prescription changed Hydrocodone Bit/Acetaminophen (Hydrocodone/Acetaminophen 5/325mg Tablet), 1 EACH PO Q4-6HR PRN for PAIN-MODERATE Discontinued Reason: New Order Labetalol HCl (Labetalol HCl), 400 MG PO DAILY, (Reported) Discontinued Reason: No Longer Taking Oxycodone HCl/Acetaminophen (Percocet 10-325 mg Tablet), 1 TAB PO Q4H PRN for PAIN-MODERATE Discontinued Reason: No Longer Taking Ropinirole HCl (Ropinirole HCl), 1 MG PO HS, (Reported) Discontinued Reason: Prescription changed Ropinirole HCl (Ropinirole HCl), 0.5 MG PO DAILY, (Reported) Discontinued Reason: Prescription changed Tramadol HCl (Tramadol HCl), 100 MG PO Q6H PRN for PAIN-MODERATE, (Reported) Discontinued Reason: No Longer Taking Current Medications Current Medications Reviewed Review of Systems Constitutional: see HPI, weakness EENTM: no symptoms reported Respiratory: no symptoms reported Cardiovascular: no symptoms reported Gastrointestinal: no symptoms reported Genitourinary: no symptoms reported Musculoskeletal: joint pain (right shoulder) Skin: no symptoms reported Psychiatric/Neurological: No Symptoms Reported All Other Systems Reviewed Negative Unless Noted: Yes Physical Exam Physical Exam Vital Signs Capillary Refill : Height, Weight, BMI Height: 5'4.00" Weight: 216lbs. 4.2oz. 98.546902pp; 30.00 BMI Method:Stated General Appearance: No Apparent Distress, WD/WN, Chronically ill, Other (pale) Eyes: Bilateral Eye Normal Inspection, Bilateral Eye PERRL HEENT: PERRL/EOMI, Normal ENT Inspection, Pharynx Normal Neck: Full Range of Motion, Normal Inspection, Non Tender, Supple, Carotid Bruit Respiratory: Chest Non Tender, Lungs Clear, Normal Breath Sounds, No Accessory Muscle Use, No Respiratory Distress Cardiovascular: Regular Rate, Rhythm, No Edema, No Gallop, No JVD, No Murmur, Normal Peripheral Pulses Gastrointestinal: Normal Bowel Sounds, No Organomegaly, No Pulsatile Mass, Non Tender, Soft Back: Normal Inspection, No CVA Tenderness, No Vertebral Tenderness Extremity: Normal Capillary Refill, Normal Inspection, Normal Range of Motion (except right arm in sling), Non Tender, No Calf Tenderness, No Pedal Edema Neurologic/Psychiatric: Alert, Oriented x3, No Motor/Sensory Deficits, Normal Mood/Affect Skin: Normal Color, Warm/Dry Lymphatic: No Adenopathy PM&R Medical Assessment & Plan REHAB/MEDICAL ASSESSMENT AND PLAN: REHAB IMPAIRMENT GROUP: Right arm impairment dominant side from reverse shoulder replacement surgery by Dr Meneses POD # 2 ETIOLOGIC DIAGNOSIS: Right arm impairment dominant side from reverse shoulder replacement surgery by Dr Meneses POD # 2 The comorbidities that impact the patients function and/or functional outcome by: recent respiratory failure with O2 dependency and renal failure will require close monitoring REHAB PLAN: The patient is being admitted to our comprehensive inpatient rehabilitation facility and can tolerate the intensity of service consisting of at least: 180 minutes of therapy a day, 5 out of 7 days a week Rehab treatment will consist of: PT will focus on increased ambulation and regaining ability to mobilize without fall risks and OT will help ADL independence due to limitation of the right arm dominant limb The patient/family has a good understanding of our discharge process and will benefit from an interdisciplinary inpatient rehabilitation program. The patient has potential to make improvement and is in need of at least two of the following multidisciplinary therapies including but not limited to physical, occupational, speech, and prosthetics and orthotics. Additionally the patient will need services from respiratory, nutritional services, wound care, psychology, etc. (Customize this to each patient). Given the patients complex condition and risk of further medical complications, rehabilitation services cannot be safely or effectively provided at a lower level of care such as a fpc facility. BARRIERS TO DISCHARGE: Lives alone and regaining the ability to manage ADL's and ambulation will be required ESTIMATED LOS: 7 days DISPOSITION: Home alone RELEVANT CHANGES SINCE PREADMISSION SCREENING: I have compared the patients medical and functional status at the time of the preadmission screening and there are: no changes PROGNOSIS: Good REHABILITATION GOALS: 1. PT will help patient with the use assistive devices in order to return home 2. OT will help patient with the use assistive devices in order to return home and regain independence with ADL's All the above goals were reviewed with the patient and he/she is in agreement. By signing this document, I acknowledge that I have personally performed a full physical examination on this patient within 24 hours of admission to this inpatient rehabilitation facility and have determined the patient to be able to tolerate the above course of treatment at an intensive level for a reasonable period of time. I will be completing a detailed individualized Plan of Care for this patient by day #4 of the patients stay based upon the Preadmission Screen, the Post-Admission Evaluation, and the therapy evaluations. Admission Dx/Comorbidities: (1) S/p reverse total shoulder arthroplasty ICD Codes: Z96.619 - Presence of unspecified artificial shoulder joint (2) Renal insufficiency ICD Codes: N28.9 - Disorder of kidney and ureter, unspecified (3) Normocytic anemia Status: Acute ICD Codes: D64.9 - Anemia, unspecified (4) Hyperlipidemia Status: Chronic ICD Codes: E78.5 - Hyperlipidemia, unspecified (5) Constipation Status: Acute ICD Codes: K59.00 - Constipation, unspecified (6) Type 2 diabetes mellitus Status: Chronic ICD Codes: E11.9 - Type 2 diabetes mellitus without complications (7) Restless leg syndrome Status: Chronic ICD Codes: G25.81 - Restless legs syndrome (8) Essential hypertension Status: Chronic ICD Codes: I10 - Essential (primary) hypertension (9) Coronary artery disease Status: Chronic ICD Codes: I25.10 - Atherosclerotic heart disease of robinson coronary artery without angina pectoris OLIVE ISAAC DO Sep 03, 2019 12:47 POS
[2019-09-03] MEDS: ENOXAPARIN 40 MG/0.4 ML (LOVENOX) SYR SC SCH (13:03)
--- NOTE | 2019-09-03 13:14 | ST Cognitive Linguistic Eval ---
Speech Evaluation-General Medical Diagnosis S/P R TSR Therapy Diagnosis Therapy Diagnosis: Cognitive-communication Referral Referring Physician: Dr. Barnes Medical History Pertinent Medical History: DM, HTN, OA Reviewed History: Yes Social History Current Living Status: Alone Speech PLF-Current Status Prior Level of Function Patient lives home alone. She was independent for most of her daily needs. She has family near by for support as needed. Subjective Patient was cooperative with the cognitive assessment. Language Eval: Auditory Comprehends Simple Yes/No Ques: Functional Indent/Objects Multiple Ge: Functional Ident/Pics in Multiple Ge: Functional Follows 1-Step Commands: Functional Follows Complex Directions: Functional Follows General Conversations: Functional Language Eval: Verbal Language Completes Spontaneous Greeting: Functional Produces Auto, Serial Info: Functional Imitates Simple Words/Phrases: Functional Word Finding: Functional Requests Basic Needs: Functional States Basic Personal Info: Functional Expresses Complex Ideas: Mild Objective Cognitive Domain Attention: WNL Memory: Mild Problem Solving: Mild Executive Functions: Mild Visuospatial Skills: WNL Composite Severity Rating: Mild Clock Drawing Severity Rating: WNL Objective Formal/Standardized Tests [facility] Mental Status ([facility]) Results 25/30, Mild Neurocognitive Disorder functional range Oral Motor/Speech Production Within Functional Range Impression The patient is a 69 year old female known to me from previous admit to the ARU. She was admitted to the ARU this date s/p shoulder surgery. The patient was given the SLUMS at bedside with results of 25/30. This score is within the MNCD range of function. She will receive skilled ST services for improving her cognitive function with focus on safety awareness and independence. Speech Patient Assess Expression of Ideas/Wants: Exhibits (3) Understanding Verbal Content: Usually Understands (3) Brief Interview-Mental Status: Yes Repetition of Three Words: Three (3) Temporal Orientation: Year: Correct (3) Temporal Orientation: Month: Accurate within 5 days(2) Temporal Orientation: Day: Correct (1) Recall : Wear to say "Sock": Yes,after cueing (1) Recall : Color: Yes, after cueing (1) Recall : Bed: Yes,after cueing (1) Memory/Recall Ability: Current season, Staff names and faces, That he or she is in a hsp/hsp unit Speech Short Term Goals Short Term Goals Short Term Goals 1) The patient will complete memory tasks related to his daily needs at 90% or greater with minimal cues. 2) The patient will complete safety awareness tasks related to his daily needs at 90% or greater with minimal cues. 3) The patient will complete problem solving tasks related to his daily needs at 90% or greater with minimal cues. Speech Gas Technician Goals Gas Technician Goals The patient will improve cognitive-communication necessary for safety and daily living tasks with minimal assist. Speech-Plan Patient/Family Goals Patient/Family Goals: The patient plans on returning to her home post rehab. Treatment Plan Speech Therapy Treatment Plan: Continue Plan of Care Patient will receive skilled ST for improving cognitive function. Treatment Duration: Sep 11, 2019 Frequency: 5 times per week Estimated Hrs Per Day: .5 hour per day Rehab Potential: Good Barriers to Learning: Patient has mild cognitive deficits Pt/Family Agrees to Plan: Yes Safety Risks/Education Teaching Recipient: Patient Teaching Methods: Discussion Response to Teaching: Verbalize Understanding Education Topics Provided: Safety within her room and communication of wants/needs. Time Speech Therapy Time In: 12:45 Speech Therapy Time Out: 13:00 Total Billed Time: 15 Billed Treatment Time 1, SPSNDVÍCTOR Harvey Sep 03, 2019 13:14 POS
[2019-09-03] MEDS ORDERED: ATOR40TA70 PO (14:08)
[2019-09-03] MEDS ORDERED: METO-395 PO (14:08)
[2019-09-03] MEDS ORDERED: ASPI-983 PO (14:36)
[2019-09-03] MEDS ORDERED: ONDA4TAB11 PO (14:36)
[2019-09-03] MEDS ORDERED: HYDR-3820 PO (14:36)
[2019-09-03] MEDS ORDERED: CHOL10007 PO (14:36)
[2019-09-03] MEDS ORDERED: SENN-148 PO (14:36)
--- NOTE | 2019-09-03 14:43 | Occupational Therapy Eval ---
OT Evaluation-General/PLF Medical Diagnosis Admission Date Sep 03, 2019 at 11:35 Medical Diagnosis: Right Total reverse shoulder Onset Date: Sep 01, 2019 Therapy Diagnosis Therapy Diagnosis: Decreased ADL skills Height/Weight Height (Feet): 5 Height (Inches): 4.00 Weight (Pounds): 216 Weight (Ounces): 4.2 Precautions Precautions/Isolations: Fall Prevention, Standard Precautions Weight Bear Status No active movement at this time of right shoulder. Referral Physician: Molly Referral Reason: Activity Tolerance, Self Care, Evaluation/Treatment, Strengthening/ROM Medical History Pertinent Medical History: Arthritis, DM, HTN, OA Additional Medical History Bilateral knee replacements. Current History Elective shoulder replacement due to arthritic shoulder. Reviewed History: Yes Social History Home: Single Level Current Living Status: Alone (son checks on her weekly) Entry Into Home: Stairs With Railing Steps Into Home: 2 ADL-Prior Level of Function SCALE: Activities may be completed with or without assistive devices. 4-Yhruejpcfy-bzehral completes the activity by him/herself with no assistance from a helper. 5-Set-up or Clean-up Assistance-helper sets up or cleans up; patient completes activity. [place] assists only prior to or following the activity. 4-Supervision or Touching Assistance-helper provides verbal cues and/or touching/steadying and/or contact guard assistance as patient completes activity. Assistance may be provided throughout the activity or intermittently. 3-Partial/Moderate Assistance-helper does LESS THAN HALF the effort. [place] lifts, holds or supports trunk or limbs, but provides less than half the effort. 2-Substantial/Maximal Assistance-helper does MORE THAN HALF the effort. [place] lifts or holds trunk or limbs and provides more than half the effort. 5-Sugjqnfwj-eijizh does ALL the effort. Patient does none of the effort to complete the activity. Or, the assistance of 2 or more helpers is required for the patient to complete the activity. If activity was not attempted, code reason: 7-Patient Refused. 9-Not Applicable-not attempted and the patient did not perform the activity before the current illness, exacerbation or injury. 10-Not Attempted due to Environmental Limitations-(lack of equipment, weather restraints, etc.). 88-Not Attempted due to Medical Conditions or Safety Concerns. ADL PLOF Comments Pt. states that she was independent with daily skills prior to this hospitalization. Self Care: Independent Functional Cognition: Independent DME/Equipment: Bath Chair, Grab Bars, Sock Aid, Tub/Shower DME/Equipment Comments Pt. states that she needs a toilet riser or BSC for over her toilet. States that her toilet is too low and she will need arm rests to push up from. Drive Self: Yes OT Current Status Subjective Pt. reports 4/10 pain in right shoulder. Nursing comes in to give pt. medication. Mental Status/Objective Patient Orientation: Person, Place Current Hand Dominance: Right Upper Extremity ROM Left WFL right- no active movement at shoulder level. Guarded movement at elbow with full extension noted. ADL-Treatment Eating (QC): 5 (Set up provided for pt. to feed self.) Oral Hygiene (QC): 7 (Pt. states that she already did this today prior to transferring to this hospital.) Shower/Bathe Self (QC): 7 (Pt. agrees to bathe self at beginning of treatment. Declines shower but agrees to sponge bath. OT sets this up for her but pt. only washes face and hands, and then declines further bathing. States, "I already had a good one.") Upper Body Dressing (QC): 2 (Max assist needed to doff/don right UE sling. Pt. came with button up shirt on. States that she needed a lot of assist to don. Declines doffing/donning it again.) Lower Body Dressing (QC): 3 (Pt. able to doff/don slipper shoes, able to doff socks with SBA. Requires min assist with sock aide to don socks. Pt. has sock aide at home.) On/Off Footwear (QC): 3 Toileting Hygiene (QC): 3 (Mod assist in stance to doff/don underwear and pants. Pt. able to cleanse self in stance.) Toilet Transfer (QC): 4 (CGA/SBA) Other Treatments Pt. requires encouragement during evaluation. Issued hand therapy sponge to increase overall strength with right hand. Verbalizes understanding. Pt. ambulated to therapy gym with SBA and completed arm bike at min resistance with left UE only for increased overall endurance with functional tasks. After this, pt. begins PT session. All needs met. Education OT Patient Education: Correct positioning, Exercise program, Modified ADL techniques, Progress toward Goal/Update tx plan, Purpose of tx/functional activities, Reviewed precautions, Rehab process, Transfer techniques, Use of adapted equipment Teaching Recipient: Patient Teaching Methods: Demonstration, Discussion Response to Teaching: Verbalize Understanding, Return Demonstration OT Short Term Goals Short Term Goals 1=Demonstrate adherence to instructed precautions during ADL tasks. 2=Patient will verbalize/demonstrate understanding of assistive devices/modifications for ADL. 3=Patient will improve strength/tolerance for activity to enable patient to perform ADL's. OT Nursing Home Goals Financial Analyst Accountant Goals Time Frame: Sep 17, 2019 Eating (QC): 6 Oral Hygiene (QC): 6 Shower/Bathe Self (QC): 5 Upper Body Dressing (QC): 6 Lower Body Dressing (QC): 6 On/Off Footwear (QC): 6 Toileting Hygiene (QC): 6 Toilet/Commode Transfer (QC): 6 Additional Goals: 1-Demonstrate ADL Tasks, 2-Verbalize Understanding, 3- ImproveStrength/Tay 1=Demonstrate adherence to instructed precautions during ADL tasks. 2=Patient will verbalize/demonstrate understanding of assistive devices/modifications for ADL. 3=Patient will improve strength/tolerance for activity to enable patient to perform ADL's. OT Education/Plan Problem List/Assessment Assessment: Decreased Activ Tolerance, Decreased UE Strength, Impaired Coordination, Impaired Funct Balance, Impaired I ADL's, Impaired Self-Care Skills, Restricted Funct UE ROM Discharge Recommendations Plan/Recommendations: Continue POC Therapy Discharge Recommendati: Post Acute OT Equpiment Recommendations-D/C: Toilet Riser with Rails Treatment Plan/Plan of Care Treatment,Training & Education: Yes Patient would benefit from OT for education, treatment and training to promote independence in ADL's, mobility, safety and/or upper extremity function for ADL's. Plan of Care: ADL Retraining, Functional Mobility, UE Funct Exercise/Act Treatment Duration: Sep 17, 2019 Frequency: At least 5 of 7 days/Wk (IRF) Estimated Hrs Per Day: 1.5 hours per day Agreement: Yes Rehab Potential: Good Time/GCodes Start Time: 12:00 Stop Time: 13:45 Total Time Billed (hr/min): 75 Billed Treatment Time 3211-5754 1, EVM x 15minutes, ADL x 15minutes 5799-0431 1, ADL x 30minutes, Ex x 15minutes DANELLE PINO OT Sep 03, 2019 14:43 POS
--- NOTE | 2019-09-03 14:46 | Physical Therapy Daily Note ---
PT Daily Note-Current Subjective pt in bed pre-tx agrees to PT, pt reports 8/10 pain in her R shoulder. Appearance pt in bed post-tx with call light, room phone, tray table in reach with all needs met at this time. dental service technician in room at this time. Mental Status Patient Orientation: Person, Place, Time, Situation pt reports multiple times that she is tired and just wants to lay down but completes this PT's requests for activities Transfers SCALE: Activities may be completed with or without assistive devices. 9-Ztkveuypfx-jiveops completes the activity by him/herself with no assistance from a helper. 5-Set-up or Clean-up Assistance-helper sets up or cleans up; patient completes activity. [place] assists only prior to or following the activity. 4-Supervision or Touching Assistance-helper provides verbal cues and/or touching/steadying and/or contact guard assistance as patient completes activity. Assistance may be provided throughout the activity or intermittently. 3-Partial/Moderate Assistance-helper does LESS THAN HALF the effort. [place] lifts, holds or supports trunk or limbs, but provides less than half the effort. 2-Substantial/Maximal Assistance-helper does MORE THAN HALF the effort. [place] lifts or holds trunk or limbs and provides more than half the effort. 2-Gkyyfmbjh-lduqyz does ALL the effort. Patient does none of the effort to complete the activity. Or, the assistance of 2 or more helpers is required for the patient to complete the activity. If activity was not attempted, code reason: 7-Patient Refused. 9-Not Applicable-not attempted and the patient did not perform the activity before the current illness, exacerbation or injury. 10-Not Attempted due to Environmental Limitations-(lack of equipment, weather restraints, etc.). 88-Not Attempted due to Medical Conditions or Safety Concerns. Sit to Lying (QC): 6 Sit to Stand (QC): 4 (SBA) Weight Bearing right side total shoulder precautions Gait Training Distance: 150'x3 Walk 10 feet (QC): 4 (SBA) Walk 50 ft with 2 Turns(QC): 4 (SBA) Walk 150 ft (QC): 4 (SBA) Gait Assistive Device: None Pt walking SBA with no AD and has no difficulty with balance this session. Balance Special Test Comments pt was able to complete 3 "obstacle course bouts" with ambulation consisting of swerving in 5 cones, walking circles around 2 cones, and manipulating 2 steps. Pt has no LOB with activities. Exercises Seated Therapy Exercises: Ankle pumps, Long arc quads, Hip flexion, Hip abd/add Seated Reps: 30 (3sets 10 reps) Standing: Hip Abduction, Heel/toe raises Standing Reps: 30 (3sets 10reps) NuStep Minutes: 15 NuStep Workload: 4 Treatments pt performed functional LE strengthening/endurance exercises, skilled ambulation training, transfer training, bed mobility training, functional balance training, and education. Assessment Current Status: Excellent Progress pt has no LOB with balance/ambulation training course. Pt is very fatigued after structured therapy this date. Pt performed UE AAROM in wrist flexion/extension and making a fist 20sets each. PT Short Term Goals Short Term Goals Time Frame: Sep 10, 2019 Gait Distance Comment: 200' Gait Assistive Device: None (SBA) # of Steps: 4 (SBA) PT Office Services Manager Goals Office Services Manager Goals PT Office Services Manager Goals Time Frame: Sep 24, 2019 Sit to Lying (QC): 6 Lying-Sitting on Side/Bed(QC): 6 Sit to Stand (QC): 6 Roll Left to Right (QC): 6 Chair/Afb-nn-Hwqag Xfer(QC): 6 Car Transfer (QC): 6 Does the Patient Walk: Yes Distance: 500' Walk 10 feet (QC): 6 Walk 10ft-Uneven Surface(QC): 6 Walk 50ft with 2 Turns (QC): 6 Walk 150 ft (QC): 6 Gait Assistive Device: None # of Steps: 4 1 Step (curb) (QC): 6 4 Steps (QC): 6 Picking up an Object (QC): 6 PT Plan Problem List Problem List: Activity Tolerance, Functional Strength, Safety, Balance, Gait, Transfer, Bed Mobility Treatment/Plan Treatment Plan: Continue Plan of Care Treatment Plan: Bed Mobility, Concurrent Therapy, Education, Functional Activity Tay, Functional Strength, Group Therapy, Gait, Safety, Therapeutic Exercise, Transfers Frequency: At least 5 of 7 days/Wk (IRF) Estimated Hrs Per Day: 1.5 hours per day Patient and/or Family Agrees t: Yes Safety Risks/Education Patient Education: Gait Training, Transfer Techniques, Steps, Reviewed Precautions, Correct Positioning, Safety Issues Teaching Recipient: Patient Teaching Methods: Demonstration, Discussion Response to Teaching: Return Demonstration, Reinforcement Needed Time/GCodes Time In: 1400 Time Out: 1500 Total Billed Treatment Time: 60 Total Billed Treatment 1 visit GT 15' FA 45' VIOLET GONZALES PT Sep 03, 2019 14:46 POS
[2019-09-03] MEDS ORDERED: AMLO5TAB9 PO (15:01)
[2019-09-03] MEDS ORDERED: ROPI1TAB2 PO ×2 (15:01)
[2019-09-03] MEDS ORDERED: CODE1CAP35 PO (15:01)
[2019-09-03] MEDS ORDERED: TRAM50TA2 PO (15:08)
--- NOTE | 2019-09-03 15:11 | NUR ---
REVIEWED DISCHARGE INSTRUCTIONS FROM [facility] WITH THE EXT MED HX AND SEVERAL DISCREPANCIES WERE NOTED. I WENT IN AND WENT OVER THE EXT MED HX WITH THE PATIENT AND SHE VERIFIED HOW SHE TAKES THEM. HER GLIPIZIDE WAS FILLED 5MG #90 FOR 90 DAYS 06-07-19 - HOWEVER SHE STATES THIS HAS BEEN DECREASED TO 2.5MG DAILY. IN ADDITION TO WHAT IS SHOWN ON THE EXT MED HX [facility] FILLED: 08-25-19 CYMBALTA 60MG DAILY #90 (TAKES ALONG WITH 30MG CAPSULE) 08-24-19 TRAMADOL 50MG 1-2 QID PRN #168 (DOES NOT TAKE IF TAKING OTHER RX PAIN MEDS) 08-24-19 FIORICET W/ CODEINE [id number] TID PRN #84 08-11-19 CYMBALTA 30MG DAILY #30 9TAKES ALONG WITH 60MG CAPSULE) 08-07-19 ROPINIROLE 1MG 1 AM 2 HS #90 SHE STATES HER AMLODIPINE DOSE HAS BEEN ADJUSTED MULTIPLE TIMES BUT CURRENTLY SHE IS BACK TO 5MG DAILY. [facility] LAST FILLED GABAPENTIN 300MG TID #90 07-09-19 - SHE STATES SHE TAKES IT EVERYDAY, I NOTED THE PAST DUE FILL DATE ON THE MED REC. SHE TAKES VITAMIN D 1000UNITS DAILY OTC AND USES REFRESH EYE DROPS TID. SHE ALSO REPORTS SHE USES BRIMONIDINE EYE DROPS TID AND BACLOFEN PRN. (BACLOFEN, REFRESH, AND BRIMONIDINE WERE NOT ON THE DISCHARGE FROM [facility] BUT I ADDED THEM THEY ARE REPORTED BY THE PATIENT) NOTE THE FOLLOWING ARE NEW SCRIPTS ORDERED AT DISCHARGE FROM [facility], I WILL REMOVE THEM AT A LATER DATE FOR PROPER DISCHARGE TO HOME ORDERS: START TAKING: SENNA LAX 8.6MG BID ASPIRIN 81MG DAILY HYDROCODONE 10-325MG Q4H PRN [facility] HAD THE METOPROLOL ER 100MG 75MG AM AND 25MG HS, PATIENT STATES SHE TAKES 100MG DAILY IN THE MORNING. [facility] HAD TOPIRAMATE 50MG 1/2 TAB DAILY AND TOPIRAMATE 25MG DAILY - PATIENT TAKES 25MG TABLET AT BEDTIME AND 1 & 1/2 50MG TABLET (75MG TOTAL) IN THE MORNING. Addendum: 09/04/19 at 1009 by REMA LIZAMA deburring and tooling machine operator REMOVED THE THREE NEW SCRIPTS ORDERED AT DISCHARGE FROM [facility]; SENNA, ASA, AND HYDROCODONE. *NOTE ADD TO PREVIOUSLY REPORTED DISCREPANCIES BETWEEN [facility] AND WHAT PATIENT TAKES AT HOME- [facility] REPORTED GLIPIZIDE ER 5MG 1/2 TAB DAILY - PATIENT FILLED PLAIN GLIPIZIDE 5MG AND TAKES 1/2 TAB DAILY (FILLED 1 WHOLE DAILY BUT DOSE HAS BEEN DECREASED ACCORDING TO PATIENT)
[2019-09-03] MEDS: SENNA W/DOCUSATE (SENOKOT S) TABLET PO SCH ×2 (16:13→20:43)
[2019-09-03] MEDS: POLYETHYLENE GLYCOL 17 GM (MIRALAX) PACK PO SCH ×2 (16:13→20:43)
[2019-09-03] MEDS: oxyCODONE/APAP 10/325MG (PERCOCET 10) TABLET PO PRN ×2 (16:16→20:21)
--- NOTE | 2019-09-03 16:20 | NUR ---
Pt is Evangelical. Business Economist provided prayer and Communion.
[2019-09-03 17:36] VITALS: BP 160/77
[2019-09-04] MEDS: oxyCODONE/APAP 10/325MG (PERCOCET 10) TABLET PO PRN ×3 (00:38→08:29)
[2019-09-04 05:09] VITALS: BP 163/72
[2019-09-04 08:09] LABS: BASOPHILS % (AUTO) 0 % (0-10); EOSINOPHILS # (AUTO) 0.1 10^3/uL (0.0-0.3); EOSINOPHILS % (AUTO) 1 % (0-10); HEMATOCRIT 39 % (35-52); HEMOGLOBIN 12.1 G/DL (11.5-16.0); LYMPHOCYTES # (AUTO) 1.4 X 10^3 (1.0-4.0); LYMPHOCYTES % (AUTO) 13 % (12-44); MEAN CORPUSCULAR HEMOGLOBIN 29 PG (25-34); MEAN CORPUSCULAR HGB CONC 31 G/DL (32-36); MEAN CORPUSCULAR VOLUME 92 FL (80-99); MEAN PLATELET VOLUME 9.8 FL (7.4-10.4); MONOCYTES # (AUTO) 1.2 X 10^3 (0.0-1.0); MONOCYTES % (AUTO) 10 % (0-12); NEUTROPHILS # (AUTO) 8.5 X 10^3 (1.8-7.8); NEUTROPHILS % (AUTO) 76 % (42-75); PLATELET COUNT 213 10^3/uL (130-400); RED CELL DISTRIBUTION WIDTH 13.1 % (10.0-14.5); WHITE BLOOD COUNT 11.2 10^3/uL (4.3-11.0)
--- NOTE | 2019-09-04 08:11 | Physical Therapy Daily Note ---
PT Daily Note-Current Subjective Pt agreeable to PT session. States not feeling too good today, having to give a lot of blood. States her R shoulder hurts and her pain med is not helping much. Pain Numeric Pain Scale: 8 Location: Right Location Body Site: Shoulder Comment: when asked to describe pain, pt states "all of the above" Appearance Pt in bed upon arrival, awake and alert. Pt's son present during part of session. At end of session, pt requesting and assisted to bed with call light, phone and bedside table within reach, ice pack positioned on R shoulder Mental Status Patient Orientation: Person, Place, Time, Eyes Open, Situation Attachments: Central Line R shoulder sling Transfers SCALE: Activities may be completed with or without assistive devices. 1-Kwepytylbf-zxzfxom completes the activity by him/herself with no assistance from a helper. 5-Set-up or Clean-up Assistance-helper sets up or cleans up; patient completes activity. [place] assists only prior to or following the activity. 4-Supervision or Touching Assistance-helper provides verbal cues and/or touching/steadying and/or contact guard assistance as patient completes activity. Assistance may be provided throughout the activity or intermittently. 3-Partial/Moderate Assistance-helper does LESS THAN HALF the effort. [place] lifts, holds or supports trunk or limbs, but provides less than half the effort. 2-Substantial/Maximal Assistance-helper does MORE THAN HALF the effort. [place] lifts or holds trunk or limbs and provides more than half the effort. 1-Sbhrgoarm-zadoso does ALL the effort. Patient does none of the effort to complete the activity. Or, the assistance of 2 or more helpers is required for the patient to complete the activity. If activity was not attempted, code reason: 7-Patient Refused. 9-Not Applicable-not attempted and the patient did not perform the activity before the current illness, exacerbation or injury. 10-Not Attempted due to Environmental Limitations-(lack of equipment, weather restraints, etc.). 88-Not Attempted due to Medical Conditions or Safety Concerns. Roll Left to Right (QC): 6 (cautious due to RTS) Sit to Lying (QC): 6 Sit to Stand (QC): 4 Chair/Bea-zm-Iqzec Xfer(QC): 4 SBA provided due to pt report of lightheadedness and increased weakness throughout tx session Weight Bearing right side total shoulder precautions Gait Training Does the Patient Walk?: Yes Distance: 250 x2 Walk 10 feet (QC): 4 Walk 50 ft with 2 Turns(QC): 4 Walk 150 ft (QC): 4 Gait Persons Needed: 1 Gait Assistive Device: None SBA provided due to pt report of lightheadedness and increased weakness feeling, slight unsteadiness at times with path deviation, kyphotic posture with fwd head Stair Training Stair Training: Handrails/: 1 handrail (left) #of Steps: 8 1 Step (curb) (QC): 4 (x5 reps) 4 Steps (QC): 4 Stairs: Pattern: Step to Level of Assist: 4 Exercises Supine Reps: 10 (minutes, gentle PROM and manual techniques to R elbow, forearm, wrist, hand, fingers) Seated Therapy Exercises: Ankle pumps, Sit to stand, Long arc quads, Hip flexion, Hip abd/add Seated Reps: 20 Standing: Maze (weave around 1chair and 4 pillars, 6" step on/off, retro gait x10 ft. 4 laps, sitting rest after 2 laps), Stepping over objects (x30 in // bars with LUE support) NuStep Minutes: 10 NuStep Workload: 3 (seat 8, L arm 8) Treatments don/doff sling, bed mobility, transfers, gait, balance, strength, obstacle courses, stairs, functional mobility, activity tolerance Assessment Current Status: Good Progress PT Short Term Goals Short Term Goals Time Frame: Sep 10, 2019 Gait Distance Comment: 200' Gait Assistive Device: None (SBA) # of Steps: 4 (SBA) PT Inhalation Therapy Aides Teacher Goals Inhalation Therapy Aides Teacher Goals PT Group Home Goals Time Frame: Sep 24, 2019 Sit to Lying (QC): 6 Lying-Sitting on Side/Bed(QC): 6 Sit to Stand (QC): 6 Roll Left to Right (QC): 6 Chair/Zjx-zk-Qhrzy Xfer(QC): 6 Car Transfer (QC): 6 Does the Patient Walk: Yes Distance: 500' Walk 10 feet (QC): 6 Walk 10ft-Uneven Surface(QC): 6 Walk 50ft with 2 Turns (QC): 6 Walk 150 ft (QC): 6 Gait Assistive Device: None # of Steps: 4 1 Step (curb) (QC): 6 4 Steps (QC): 6 Picking up an Object (QC): 6 PT Plan Treatment/Plan Treatment Plan: Continue Plan of Care Treatment Plan: Bed Mobility, Concurrent Therapy, Education, Functional Activity Tay, Functional Strength, Group Therapy, Gait, Safety, Therapeutic Exercise, Transfers Frequency: At least 5 of 7 days/Wk (IRF) Estimated Hrs Per Day: 1.5 hours per day Patient and/or Family Agrees t: Yes Safety Risks/Education Patient Education: Gait Training, Transfer Techniques, Steps, Reviewed Precautions, Reviewed Use of Ice, Correct Positioning, Reviewed Don/Doff Brace, Safety Issues Teaching Recipient: Patient Teaching Methods: Demonstration, Discussion Response to Teaching: Verbalize Understanding, Return Demonstration Time/GCodes Time In: 800 Time Out: 920 Total Billed Treatment Time: 80 Total Billed Treatment 1 visit, GT x15 min, FA x30 min, EX x20 min, NM x15 min GARY VAZQUEZ AUTO ADJUDICATION SPECIALIST Sep 04, 2019 08:11 POS
--- NOTE | 2019-09-04 08:25 | NUR ---
Visit by Lottery Clerkchristiano Mcpherson: Engaged in rapport building and educated about Spiritual Care Services. Pt's family is Shinto. Lottery Clerk offered prayer for healing.
[2019-09-04 08:29] LABS: ALBUMIN 3.6 GM/DL (3.2-4.5); BILIRUBIN,TOTAL 0.4 MG/DL (0.1-1.0); CALCIUM 8.8 MG/DL (8.5-10.1); CREATININE SERUM 1.05 MG/DL (0.60-1.30); POTASSIUM 3.6 MMOL/L (3.6-5.0); TOTAL PROTEIN 6.7 GM/DL (6.4-8.2)
[2019-09-04] MEDS: POLYETHYLENE GLYCOL 17 GM (MIRALAX) PACK PO SCH ×2 (08:32→19:50)
[2019-09-04] MEDS: SENNA W/DOCUSATE (SENOKOT S) TABLET PO SCH (08:32)
--- NOTE | 2019-09-04 09:17 | Individualized Plan of Care ---
Individualized Plan of Care Rehab Nursing IPOC Order Admission Date Sep 03, 2019 at 11:35 Current Orders Orders Admission Order(Inpt,Obs,Sdc) (09/03/19 08:58) Sam Newman (09/03/19 08:58) Sequential Compression Device Q4H (09/03/19 08:58) Public Welfare Worker-Inpt Rehab Con (09/03/19 08:58) Rehab Nursing Orders-Ipoc (09/03/19 08:58) Physical Therapy Rehab Orders (09/03/19 08:58) Occupational Therapy Rehab Ord (09/03/19 08:58) Speech Therapy Rehab Orders (09/03/19 08:58) Cbc With Automated Diff (09/04/19 06:00) Comprehensive Metabolic Panel (09/04/19 06:00) General/Regular (09/03/19 Lunch) Precautions (Aru) (09/03/19 08:58) Rehab-Intensity Of Therapy (09/03/19 08:58) Initiate Admission Nursing Pro .admission (09/03/19 08:58) Acetaminophen Tablet (Tylenol Tablet) (09/03/19 09:00) Alprazolam Tablet (Xanax Tablet) (09/03/19 09:00) Calcium Carbonate Chew Tablet (Antacid C (09/03/19 09:00) Diphenhydramine Tablet (Benadryl Tablet) (09/03/19 09:00) Docusate Sodium Capsule (Colace Capsule) (09/03/19 09:00) Bisacodyl Suppository (Dulcolax Supposit (09/03/19 09:00) Lactulose Oral Solution (Enulose Oral So (09/03/19 09:00) Na Phos/Na Biphos Enema (Fleet Enema Amari (09/03/19 09:00) Guaifenesin/Codeine Syrup (Robitussin Ac (09/03/19 09:00) Hydrocodone/Apap 5/325 Tablet (Lortab 5 (09/03/19 09:00) Loperamide Tablet (Imodium Tablet) (09/03/19 09:00) Enoxaparin Injection (Lovenox Injection) (09/03/19 13:00) Melatonin Tablet (Melatonin Tablet) (09/03/19 09:00) Polyethylene Glycol Powder Pkt (Miralax (09/03/19 09:00) Ondansetron Oral Dissolve Tab (Zofran (09/03/19 09:00) Senna S Tablet (Senokot S Tablet) (09/03/19 09:00) Tramadol Tablet (Ultram Tablet) (09/03/19 09:00) Admission Arrival Bed Request (09/03/19 11:35) Patient Visit (09/03/19 ) Speech Sound Lang Comp (09/03/19 ) Oxycodone/Acet 10/325mg Tablet (Percocet (09/03/19 13:45) Patient Visit (09/03/19 ) Pt Eval Low Complexity (09/03/19 ) Functional Activities, Ea 15 (09/03/19 ) Gait Training, Ea 15 Min (09/03/19 ) Sequential Compression Device Q4H (09/03/19 20:12) Dvt/Vte Risk - Notifiy Physici Q4H (09/03/19 20:12) Consult Cardiology (09/04/19 08:33) Aspirin Enteric Coated Tablet (Ecotrin T (09/05/19 09:00) Atorvastatin Tablet (Lipitor) (09/04/19 21:00) Baclofen Tablet (Lioresal Tablet) (09/04/19 09:15) Brimonidine 0.2% Ophth Soln (Alphagan (09/04/19 13:00) Folic Acid Tablet (Folic Acid Tablet) (09/05/19 09:00) Furosemide Tablet (Lasix Tablet) (09/05/19 09:00) Gabapentin Capsule/Tablet (Neurontin Cap (09/04/19 13:00) Hydrocodone/Apap 10/325 Tablet (Lortab 1 (09/04/19 09:15) Ondansetron Oral Dissolve Tab (Zofran (09/04/19 09:15) Pantoprazole Tablet (Protonix Tablet) (09/05/19 07:00) Topiramate Tablet (Topamax Tablet) (09/04/19 21:00) Tramadol Tablet (Ultram Tablet) (09/04/19 09:15) (Nf) Amlodipine Besylate (09/05/19 09:00) (Nf) Carboxymethylcellulos/Glycerin (Ref (09/04/19 13:00) (Nf) Cholecalciferol (Vitamin D3) (Vitam (09/05/19 09:00) (Nf) Codeine/Butalbital/Asa/Caffein (Fio (09/04/19 09:15) (Nf) Duloxetine Hcl (Cymbalta) (09/05/19 09:00) (Nf) Duloxetine Hcl (Cymbalta) (09/05/19 09:00) (Nf) Hydroxychloroquine Sulfate (09/04/19 21:00) (Nf) Ropinirole Hcl (09/05/19 09:00) (Nf) Ropinirole Hcl (09/04/19 21:00) (Nf) Sennosides (Senna Lax) (09/04/19 21:00) (Nf) Topiramate (09/05/19 09:00) Oxycodone Extended Release Tab (Oxyconti (09/04/19 09:15) Cholecalciferol Capsule/Tablet (Vitamin (09/05/19 09:00) Glipizide Tablet (Glucotrol Tablet) (09/04/19 12:00) Metoprolol Succinate (Xl) Tab (Toprol Xl (09/04/19 09:30) Amlodipine Tablet (Norvasc Tablet) (09/04/19 09:30) Duloxetine Capsule (Cymbalta Capsule) (09/04/19 09:30) Duloxetine Capsule (Cymbalta Capsule) (09/04/19 09:30) Hydroxychloroquine Sulfate (Plaquenil) (09/04/19 17:00) Ropinirole Tablet (Requip Tablet) (09/04/19 09:30) Ropinirole Tablet (Requip Tablet) (09/04/19 21:00) Topiramate Tablet (Topamax Tablet) (09/04/19 09:30) Sennosides Tablet (Senokot Tablet) (09/04/19 21:00) Carboxymethylcell Ophth Soln (Refresh Pl (09/04/19 13:00) Patient Visit (09/04/19 ) Gait Training, Ea 15 Min (09/04/19 ) Functional Activities, Ea 15 (09/04/19 ) Exercise Therap, Ea 15 Min (09/04/19 ) Ex Neuromuscular, Ea 15 Min (09/04/19 ) Rehab Nursing Orders: Ongoing Assess. of Function Status Intensity of Therapy to be met Patient to be seen: Min.3h per day/5 of 7d PT IPOC Problem List: Activity Tolerance, Functional Strength, Safety, Balance, Gait, Transfer, Bed Mobility Bed Mobility, Concurrent Therapy, Education, Functional Activity Tay, Functional Strength, Group Therapy, Gait, Safety, Therapeutic Exercise, Transfers Frequency: At least 5 of 7 days/Wk (IRF) Estimated Hrs Per Day: 1.5 hours per day OT IPOC Problems: Decreased Activ Tolerance, Decreased UE Strength, Impaired Coordination, Impaired Funct Balance, Impaired I ADL's, Impaired Self-Care Skills, Restricted Funct UE ROM OT Treatment, Training and Edu: Yes Plan of Care: ADL Retraining, Functional Mobility, UE Funct Exercise/Act Treatment Duration: Sep 17, 2019 Frequency: At least 5 of 7 days/Wk (IRF) Estimated Hrs Per Day: 1.[address] IPOC Speech Therapy Treatment Plan: Continue Plan of Care Treatment Duration: Sep 11, 2019 Frequency: 5 times per week Estimated Hrs Per Day: .5 hour per day Public Welfare Worker/Case Mgmt Public Welfare Worker/Case Managemen: Discharge Planning Dietitian/Gardening Manager Dietitian/Gardening Manager to monitor nutritional status and make changes and/or recommendations as needed and work with speech pathology on dietary upgrades as the occur. Physician IPOC Medical Issues being managed closely and that require the 24 hour availability of a physician: Brief Synthesis of Preadmission Screen, Post-Admission Evaluation, and Therapy Evaluations: OLIVE ISAAC DO Sep 04, 2019 09:17 POS
--- NOTE | 2019-09-04 09:17 | PM&R Progress Note ---
Subjective HPI/CC On Admission Date Seen by Provider: Sep 04, 2019 Time Seen by Provider: 08:30 Subjective/Events-last exam Reviewed labs WBC 11 non specific but Hgb stable and creatinine 1.[address] Singh because that is her regular employment advisor Hypertension 163 will restart all of her home medications Bowels are a little bit loose so will monitor that closely Pain is not well controlled so will initiate Oxycontin of 15mg twice a day in addition to the Percocet 10/325 Q 4hrs she is already taking She does have a lot of Narcotic tolerance given the fact that she takes Hydrocodone 10/325 at home Review of Systems General: Fatigue Musculoskeletal: arm pain Objective Exam Vital Signs Vital Signs Date Time Temp Pulse Resp B/P (MAP) Pulse Ox O2 Delivery O2 Flow Rate FiO2 09/04/19 05:09 36.7 99 20 163/72 (102) 94 Room Air Capillary Refill : Less Than 3 Seconds General Appearance: No Apparent Distress, WD/WN, Chronically ill, Other (pale) HEENT: PERRL/EOMI, Normal ENT Inspection, Pharynx Normal Neck: Full Range of Motion, Normal Inspection, Non Tender, Supple, Carotid Bruit Respiratory: Chest Non Tender, Lungs Clear, Normal Breath Sounds, No Accessory Muscle Use, No Respiratory Distress Cardiovascular: Regular Rate, Rhythm, No Edema, No Gallop, No JVD, No Murmur, Normal Peripheral Pulses Gastrointestinal: Normal Bowel Sounds, No Organomegaly, No Pulsatile Mass, Non Tender, Soft Back: Normal Inspection, No CVA Tenderness, No Vertebral Tenderness Extremity: Normal Capillary Refill, Normal Inspection, Normal Range of Motion (except right arm in sling), Non Tender, No Calf Tenderness, No Pedal Edema Neurologic/Psychiatric: Alert, Oriented x3, No Motor/Sensory Deficits, Normal Mood/Affect Skin: Normal Color, Warm/Dry Lymphatic: No Adenopathy Results/Procedures Lab Laboratory Tests 09/04/19 08:03 Patient resulted labs reviewed. FIM Transfers Therapy Code Descriptions/Definitions Functional [place] Measure: 0=Not Assessed/NA 4=Minimal Assistance 1=Total Assistance 5=Supervision or Setup 2=Maximal Assistance 6=Modified [place] 3=Moderate Assistance 7=Complete IndependenceSCALE: Activities may be completed with or without assistive devices. 2-Cpqhasqplr-zxkqqjh completes the activity by him/herself with no assistance from a helper. 5-Set-up or Clean-up Assistance-helper sets up or cleans up; patient completes activity. [place] assists only prior to or following the activity. 4-Supervision or Touching Assistance-helper provides verbal cues and/or touching/steadying and/or contact guard assistance as patient completes activity. Assistance may be provided throughout the activity or intermittently. 3-Partial/Moderate Assistance-helper does LESS THAN HALF the effort. [place] lifts, holds or supports trunk or limbs, but provides less than half the effort. 2-Substantial/Maximal Assistance-helper does MORE THAN HALF the effort. [place] lifts or holds trunk or limbs and provides more than half the effort. 0-Laryzqkcq-ybjcsf does ALL the effort. Patient does none of the effort to complete the activity. Or, the assistance of 2 or more helpers is required for the patient to complete the activity. If activity was not attempted, code reason: 7-Patient Refused. 9-Not Applicable-not attempted and the patient did not perform the activity before the current illness, exacerbation or injury. 10-Not Attempted due to Environmental Limitations-(lack of equipment, weather restraints, etc.). 88-Not Attempted due to Medical Conditions or Safety Concerns. Roll Left to Right (QC): 6 (cautious due to RTS) Sit to Lying (QC): 6 Sit to Stand (QC): 4 Chair/Lkg-eg-Obmmb Xfer(QC): 4 Car Transfer (QC): 4 Gait Training Does the Patient Walk?: Yes Distance (FIM): 3=150 ft Distance: 250 x2 Walk 10 feet (QC): 4 Walk 50 ft with 2 Turns(QC): 4 Walk 150 ft (QC): 4 Walking 10ft/uneven surface-QC: 4 Gait Persons Needed: 1 Gait Assistive Device: None Wheelchair Training Does the Pt Use a Wheelchair?: No Stair Training 1 Step (curb) (QC): 4 4 Steps (QC): 88 12 Steps (QC): 88 Balance Picking up an Object (QC): 3 ADL-Treatment Eating (QC): 5 (Set up provided for pt. to feed self.) Oral Hygiene (QC): 7 (Pt. states that she already did this today prior to transferring to this hospital.) Shower/Bathe Self (QC): 7 (Pt. agrees to bathe self at beginning of treatment. Declines shower but agrees to sponge bath. OT sets this up for her but pt. only washes face and hands, and then declines further bathing. States, "I already had a good one.") Upper Body Dressing (QC): 2 (Max assist needed to doff/don right UE sling. Pt. came with button up shirt on. States that she needed a lot of assist to don. Declines doffing/donning it again.) Lower Body Dressing (QC): 3 (Pt. able to doff/don slipper shoes, able to doff socks with SBA. Requires min assist with sock aide to don socks. Pt. has sock aide at home.) On/Off Footwear (QC): 3 Toileting Hygiene (QC): 3 (Mod assist in stance to doff/don underwear and pants. Pt. able to cleanse self in stance.) Toilet Transfer (QC): 4 (CGA/SBA) Assessment/Plan Assessment and Plan Assess & Plan/Chief Complaint Assessment: s/p reverse right shoulder replacement per Dr Jasmine POD #3 HTN CAD CRI Anemia Hypoxia Plan: Home meds Long acting narcotic BM regimen IRF protocol (1) S/p reverse total shoulder arthroplasty (2) Renal insufficiency (3) Normocytic anemia Status: Acute (4) Hyperlipidemia Status: Chronic (5) Constipation Status: Acute (6) Type 2 diabetes mellitus Status: Chronic (7) Restless leg syndrome Status: Chronic (8) Essential hypertension Status: Chronic (9) Coronary artery disease Status: Chronic OLIVE ISAAC DO Sep 04, 2019 09:17 POS
[2019-09-04] MEDS ORDERED: DULoxetine 30 MG (CYMBALTA) CAP PO SCH (09:30)
--- NOTE | 2019-09-04 09:55 | Progress Note ---
CHUCHO BARLOW MED STUDENT 09/04/19 0955: Progress Note CC: S/p R reverse shoulder replacement POD#3 Barriers: R shoulder replacement, pt is r hand dominant Needs overhead stool riser at home States PT is limited by pain Ambulating well, activities of daily living not severely impacted by convalescent status Requesting additional pain control so she can participate better in PT and "get out of here faster" Spoke with Dr. Isaac about advancing narcotic regimen Followed by Dr. Benson at [facility], Dr. Singh, and has a risk manager and sample box maker she sees in [place] Comorbidities: Recent respiratory failure with O2 dependency. Renal failure, Zenker's AI ISAAC DO 09/04/19 1611: Supervisory-Addendum Brief Verification & Attestation Participated in pt care: history, MDM, physical Personally performed: exam, history, MDM, supervision of care Care discussed with: Medical Student Procedures: n/a Results interpretation: Verified all documentation Verification and Attestation of Medical Student E/M Service A medical student performed and documented this service in my presence. I reviewed and verified all information documented by the medical student and made modifications to such information, when appropriate. I personally performed the physical exam and medical decision making. Ai Isaac, Sep 04, 2019,16:11 CHUCHO BARLOW MED STUDENT Sep 04, 2019 09:55 AI FRIAS DO Sep 04, 2019 16:11 POS
[2019-09-04] MEDS: meTOprolol SUCCINATE 100 MG (TOPROL XL) TAB PO SCH (10:22)
[2019-09-04] MEDS: rOPINIRole 1 MG (REQUIP) TABLET PO SCH ×2 (10:22→19:39)
[2019-09-04] MEDS: amLODIPine 5 MG (NORVASC) TAB PO SCH (10:22)
[2019-09-04] MEDS: oxyCODONE ER 15 MG (oxyCONTIN CR) TAB PO SCH ×2 (10:22→19:40)
[2019-09-04] MEDS: GABAPENTIN 300 MG (NEURONTIN) CAP PO SCH ×2 (10:23→19:39)
[2019-09-04] MEDS: toPIRamate 25 MG (TOPAMAX) TAB PO SCH ×2 (10:23→19:40)
[2019-09-04] MEDS: ARTIFICAL TEARS 0.4 ML UNIT DOSE (REFRESH PLUS) OD SCH ×2 (10:24→19:41)
[2019-09-04] MEDS: DULoxetine 30 MG (CYMBALTA) CAP PO SCH (10:24)
[2019-09-04] MEDS: ONDANSETRON 4 MG (ZOFRAN) ORAL DISSOLVE TAB PO PRN (11:05)
--- NOTE | 2019-09-04 11:28 | Occupational Ther Daily Note ---
OT Current Status-Daily Note Subjective Pt in bed, agrees to therapy. Pt reports 7/10 right shoulder pain. ADL-Treatment Pt supine to sit with assist to raise upper body. Pt completed sponge bath while seated EOB. Doff shirt with max assist and shorts with min assist. Pt able to wash chest, abdomen, right UE, catalino area, and bilateral upper legs. Pt required assist to thread right UE into button up shirt and pull around the back. Able to thread left UE into sleeve with min assist. Pt required assist to manipulate buttons. Max assist to manage right UE sling. Pt able to thread bilateral LE into underwear and pants. Stood with SBA for balance during pant hike. Pt able to pull pants up on left, but requires assist to pull up over right hip. Dons slip on shoes with set up. Grooming tasks completed standing at sink. Pt brushed teeth and combed hair with SBA for balance. Transfer to toilet with CGA. Pt able to pull pants down with increased time and complete toileting hygiene, but requires assist to complete pant hike on right. Therapy Code Descriptions/Definitions Functional Arion Measure: 0=Not Assessed/NA 4=Minimal Assistance 1=Total Assistance 5=Supervision or Setup 2=Maximal Assistance 6=Modified Arion 3=Moderate Assistance 7=Complete IndependenceSCALE: Activities may be completed with or without assistive devices. 8-Ygeeicabxy-flteavq completes the activity by him/herself with no assistance from a helper. 5-Set-up or Clean-up Assistance-helper sets up or cleans up; patient completes activity. [place] assists only prior to or following the activity. 4-Supervision or Touching Assistance-helper provides verbal cues and/or touching/steadying and/or contact guard assistance as patient completes activity. Assistance may be provided throughout the activity or intermittently. 3-Partial/Moderate Assistance-helper does LESS THAN HALF the effort. [place] lifts, holds or supports trunk or limbs, but provides less than half the effort. 2-Substantial/Maximal Assistance-helper does MORE THAN HALF the effort. [place] lifts or holds trunk or limbs and provides more than half the effort. 7-Icyaaenqu-vdcohy does ALL the effort. Patient does none of the effort to complete the activity. Or, the assistance of 2 or more helpers is required for the patient to complete the activity. If activity was not attempted, code reason: 7-Patient Refused. 9-Not Applicable-not attempted and the patient did not perform the activity before the current illness, exacerbation or injury. 10-Not Attempted due to Environmental Limitations-(lack of equipment, weather restraints, etc.). 88-Not Attempted due to Medical Conditions or Safety Concerns. Oral Hygiene (QC): 4 Shower/Bathe Self (QC): 3 Upper Body Dressing (QC): 2 Lower Body Dressing (QC): 3 Toileting Hygiene (QC): 3 Toilet Transfer (QC): 4 Other Treatment Gait to therapy gym with close SBA. Pt completed resistance peg activity with left UE to increase strength, activity tolerance and coordination/manipulation skills. Pt moves slowly and requires increased time to complete. Putty activity with left hand to increase strength. Pt able to remove small beads from medium resistance putty with left hand with increased time. Graded clothespin task with left UE to increase back facer/pinch strength. Pt returned to room, completed sit to supine with min assist. Pt resting in bed with needs met after session. OT Short Term Goals Short Term Goals 1=Demonstrate adherence to instructed precautions during ADL tasks. 2=Patient will verbalize/demonstrate understanding of assistive devices/modifications for ADL. 3=Patient will improve strength/tolerance for activity to enable patient to perform ADL's. OT Senior Care Goals Engineering Programmer Goals Time Frame: Sep 17, 2019 Eating (QC): 6 Oral Hygiene (QC): 6 Shower/Bathe Self (QC): 5 Upper Body Dressing (QC): 6 Lower Body Dressing (QC): 6 On/Off Footwear (QC): 6 Toileting Hygiene (QC): 6 Toilet/Commode Transfer (QC): 6 Additional Goals: 1-Demonstrate ADL Tasks, 2-Verbalize Understanding, 3-Im proveStrength/Tay 1=Demonstrate adherence to instructed precautions during ADL tasks. 2=Patient will verbalize/demonstrate understanding of assistive devices/modifications for ADL. 3=Patient will improve strength/tolerance for activity to enable patient to perform ADL's. OT Education/Plan Discharge Recommendations Plan/Recommendations: Continue POC Treatment Plan/Plan of Care Patient would benefit from OT for education, treatment and training to promote independence in ADL's, mobility, safety and/or upper extremity function for ADL's. Plan of Care: ADL Retraining, Functional Mobility, UE Funct Exercise/Act Treatment Duration: Sep 17, 2019 Frequency: At least 5 of 7 days/Wk (IRF) Estimated Hrs Per Day: 1.5 hours per day Agreement: Yes Rehab Potential: Good Time/GCodes Start Time: 09:30 Stop Time: 10:45 Total Time Billed (hr/min): 75 Billed Treatment Time 1 visit, ADLx3(45minutes), EX(30minutes) VIOLA LONG OT Sep 04, 2019 11:28 POS
--- NOTE | 2019-09-04 11:40 | Speech Therapy Daily Note ---
Speech Daily Progress Note Subjective Date Seen by Provider: Sep 04, 2019 Time Seen by Provider: 00:30 Patient was still feeling nauseated following her PT and OT. Nursing had given her some medication to help with the nausea. Objective Patient completed q/a series related to her daily needs at 85% with 10% cues and/or repetitions. Assessment Assessment Current Status: Good Progress Treatment Plan Continue Plan of Care Speech Short Term Goals Short Term Goals Short Term Goals 1) The patient will complete memory tasks related to his daily needs at 90% or greater with minimal cues. 2) The patient will complete safety awareness tasks related to his daily needs at 90% or greater with minimal cues. 3) The patient will complete problem solving tasks related to his daily needs at 90% or greater with minimal cues. Speech Care Home Goals Screw Machine Operator Goals The patient will improve cognitive-communication necessary for safety and daily living tasks with minimal assist. Speech-Plan Patient/Family Goals Patient/Family Goals: Patient plans on returning home with family support post rehab. Treatment Plan Speech Therapy Treatment Plan: Continue Plan of Care Patient is anticipated to continue progress with skilled therapies. Treatment Duration: Sep 11, 2019 Frequency: 5 times per week Estimated Hrs Per Day: .5 hour per day Rehab Potential: Good Barriers to Learning: Patient has mild cognitive deficits. Pt/Family Agrees to Plan: Yes Safety Risks/Education Teaching Recipient: Patient Teaching Methods: Demonstration, Discussion Response to Teaching: Verbalize Understanding, Return Demonstration Education Topics Provided: Continued communication of her wants/needs. Time Speech Therapy Time In: 11:00 Speech Therapy Time Out: 11:30 Total Billed Time: 30 Billed Treatment Time 1SH[address] Sep 04, 2019 11:40 POS
[2019-09-04] MEDS: glipiZIDE 5 MG (GLUCOTROL) TAB PO SCH (12:28)
[2019-09-04] MEDS ORDERED: CARBOXYMETHYLCELLULOS OD SCH (13:00)
[2019-09-04] MEDS ORDERED: GLYCERIN OD SCH (13:00)
[2019-09-04] MEDS ORDERED: [UNRECOGNIZED DRUG - OTHER] OD SCH (13:00)
[2019-09-04] MEDS: ENOXAPARIN 40 MG/0.4 ML (LOVENOX) SYR SC SCH (13:22)
[2019-09-04] MEDS: BRIMONIDINE 0.2% (ALPHAGAN) OPHTH SOLN 5 ML BTL OU SCH ×2 (13:53→19:41)
--- NOTE | 2019-09-04 14:36 | Consultation-Cardiology ---
HPI-Cardiology Cardiology Consultation Date of Consultation 09/04/19 Date of Admission Time Seen by Provider: 14:33 Indication: Coronary artery disease HPI 69-year-old lady with history of coronary artery disease, hypertension hyperlipidemia, underwent reverse shoulder arthroplasty, transfer to acute rehabilitation, has been doing well. Denied any chest pain or shortness of br eath. No palpitation, syncope or near syncopal episodes. No claudications. Home Medications & Allergies Allergies: Coded Allergies: clopidogrel (Verified Allergy, Severe, BLOOD CLOTS, 11/27/18) Penicillins (Verified Allergy, Mild, RASH, 11/27/18) carisoprodol (Verified Allergy, Mild, RASH, 11/27/18) cephalexin (Verified Allergy, Mild, RASH, 11/27/18) ketorolac (Verified Allergy, Mild, RASH, 11/27/18) prochlorperazine (Verified Allergy, Mild, RASH, 11/27/18) Carbamates (Verified Allergy, Unknown, Rash, 05/28/19) Home Medication List Reviewed: Yes CAG-[id number]-Fqqynv Hx Patient Social History Marital Status: single Employed/Student: retired Smoking Status: Former Smoker 2nd Hand Smoke Exposure: No Recent Foreign Travel: No Recent Infectious Disease Expo: No Recent Hopitalizations: Yes Immunizations Up To Date Date of Pneumonia Vaccine: Jul 29, 2017 Date of Influenza Vaccine: Jun 30, 2019 Past Medical History discussed below Family Medical History Significant Family History: No Pertinent Family Hx Family History: Hypertension G8 BROTHER Not obtainable due to adoption 19 FATHER Review of Systems-General Review of Systems Constitutional: see HPI, weakness EENTM: see HPI, no symptoms reported Respiratory: see HPI; No cough, No dyspnea on exertion, No hemoptysis, No orthopnea, No phlegm, No short of breath, No stridor, No wheezing, No other Cardiovascular: see HPI; No chest pain, No edema, No Hx of Intervention, No palpitations, No syncope, No vascular heart diseas, No other Gastrointestinal: no symptoms reported, see HPI Genitourinary: no symptoms reported, see HPI Musculoskeletal: see HPI, joint pain (right shoulder) Skin: no symptoms reported, see HPI Psychiatric/Neurological: No Symptoms Reported, See HPI All Other Systems Reviewed Negative Unless Noted: Yes Reviewed Test Results Reviewed Test Results Lab Laboratory Tests Test 09/04/19 06:58 09/04/19 08:03 09/04/19 10:53 Range/Units Glucometer 181 H 179 H 70-110 MG/DL White Blood Count 11.2 H 4.3-11.0 10^3/uL Red Blood Count 4.17 L 4.35-5.85 10^6/uL Hemoglobin 12.1 11.5-16.0 G/DL Hematocrit 39 35-52 % Mean Corpuscular Volume 92 80-99 FL Mean Corpuscular Hemoglobin 29 25-34 PG Mean Corpuscular Hemoglobin Concent 31 L 32-36 G/DL Red Cell Distribution Width 13.1 10.0-14.5 % Platelet Count 213 130-400 10^3/uL Mean Platelet Volume 9.8 7.4-10.4 FL Neutrophils (%) (Auto) 76 H 42-75 % Lymphocytes (%) (Auto) 13 12-44 % Monocytes (%) (Auto) 10 0-12 % Eosinophils (%) (Auto) 1 0-10 % Basophils (%) (Auto) 0 0-10 % Neutrophils # (Auto) 8.5 H 1.8-7.8 X 10^3 Lymphocytes # (Auto) 1.4 1.0-4.0 X 10^3 Monocytes # (Auto) 1.2 H 0.0-1.0 X 10^3 Eosinophils # (Auto) 0.1 0.0-0.3 10^3/uL Basophils # (Auto) 0.0 0.0-0.1 10^3/uL Sodium Level 139 135-145 MMOL/L Potassium Level 3.6 3.6-5.0 MMOL/L Chloride Level 105 98-107 MMOL/L Carbon Dioxide Level 20 L 21-32 MMOL/L Anion Gap 14 5-14 MMOL/L Blood Urea Nitrogen 13 7-18 MG/DL Creatinine 1.05 0.60-1.30 MG/DL Estimat Glomerular Filtration Rate 52 BUN/Creatinine Ratio 12 Glucose Level 281 H 70-105 MG/DL Calcium Level 8.8 8.5-10.1 MG/DL Corrected Calcium 9.1 8.5-10.1 MG/DL Total Bilirubin 0.4 0.1-1.0 MG/DL Aspartate Amino Transf (AST/SGOT) 9 5-34 U/L Alanine Aminotransferase (ALT/SGPT) 11 0-55 U/L Alkaline Phosphatase 124 40-136 U/L Total Protein 6.7 6.4-8.2 GM/DL Albumin 3.6 3.2-4.5 GM/DL Physical Exam Physical Exam Vital Signs Vital Signs - First Documented 09/03/19 09/03/19 15:30 17:36 Temp 36.0 Pulse 88 Resp 18 B/P (MAP) 160/77 (104) Pulse Ox 94 O2 Delivery Room Air Capillary Refill : Less Than 3 Seconds Height, Weight, BMI Height: 5'4.00" Weight: 216lbs. 4.2oz. 98.296040qs; 33.91 BMI Method:Stated General Appearance: No Apparent Distress, WD/WN, Chronically ill, Other (pale) Eyes: Bilateral Eye Normal Inspection, Bilateral Eye PERRL HEENT: PERRL/EOMI, Normal ENT Inspection, Pharynx Normal Neck: Full Range of Motion, Normal Inspection, Non Tender, Supple, Carotid Bruit Respiratory: Chest Non Tender, Lungs Clear, Normal Breath Sounds, No Accessory Muscle Use, No Respiratory Distress Cardiovascular: Regular Rate, Rhythm, No Edema, No Gallop, No JVD, No Murmur, Normal Peripheral Pulses Gastrointestinal: Normal Bowel Sounds, No Organomegaly, No Pulsatile Mass, Non Tender, Soft Back: Normal Inspection, No CVA Tenderness, No Vertebral Tenderness Extremity: Normal Capillary Refill, Normal Inspection, Normal Range of Motion (except right arm in sling), Non Tender, No Calf Tenderness, No Pedal Edema Neurologic/Psychiatric: Alert, Oriented x3, No Motor/Sensory Deficits, Normal Mood/Affect Skin: Normal Color, Warm/Dry Lymphatic: No Adenopathy A/P-Cardiology Admission Diagnosis Status post shoulder arthroplasty Coronary artery disease Hypertension Hyperlipidemia Assessment/Plan Post shoulder surgery recovering, doing well. Managed with physical therapy History of coronary artery disease with a stent to the right coronary artery using 3.5 x 20 mm Ion stent done in 2009. Last stress test done in November 2018 showing no significant ischemia or infarction. Continue to monitor. Next History of recurrent chest pain, mainly pleuritic in nature. Currently no chest pain was reported Anemia, monitor H&H Chronic kidney disease, continue to monitor renal function Hypertension, continue on current medication monitor blood pressure. Hyperlipidemia, maintained on Lipitor 40 mg, continue to monitor Diabetes mellitus, followed and managed by primary care physician History of restless leg syndrome Clinical Quality Measures DVT/VTE Risk/Contraindication: Risk Factor Score Per Nursin RFS Level Per Nursing on Admit: 4+=Very High ABBI GUTIERREZ MD Sep 04, 2019 14:36 POS
--- NOTE | 2019-09-04 15:08 | NUR ---
"RD ASSESSMENT PMHx: HTN; T2DM; HLD; CAD; CKD; GERD PT INTERACTION: Pt was awake and pleasant during nutrition assessment. Pt states current appetite is fair, and has been this way since her illness. Note pt avg PO intake of >75% x2d, per chart review. Pt states following a regular diet at home, and currently has no issues chewing/swallowing food. Pt states some recent issues with nausea, but not emesis. Pt states no recent issues with c/d at this time, and states last BM was 09/04. Note pt currently on bowel regimen of miralax BID, senna BID, colace PRN, bisacodyl PRN, per chart review. Pt states no recent wt changes. Note unable to determine recent wt hx, per chart review. Pt states current DM management is pretty good and her last HbA1c was 6.6, taken mid-Jun 2019. ABNORMAL NUTRITION-RELATED LAB VALUES: glu 281 (H) Est. kcal needs: 2357-0073 | 15-20 kcal/kg Est. Pro needs: 89-107 g Pro | 1.0-1.2 g Pro/kg PES STATEMENT: Given pt's current PO intake, no nutrition diagnosis at this time (NO-1.1) INTERVENTION: Continue with current diet order of Regular diet. MONITOR/EVALUATE: PO Intake; Plan of Care; Hydration Status; Weight Status; Lab Values Alfie Noel, MS, RD, LD"
[2019-09-04] MEDS: HYDROcodone/APAP 10 MG/325 MG (LORTAB) TAB PO PRN ×2 (15:24→19:41)
--- NOTE | 2019-09-04 15:28 | NUR ---
Initial assessment with patient who was admitted to ARU 09/03/19 post op for right reverse total shoulder, right hand dominant. Patient plans to discharge and return to her home 09/07/19. Patient resides alone she was IADL within her normal limits prior to surgery. DME: Patient requested a stool riser/BSC framework for her bathroom, advised her this is not a covered item under her Medicare benefits. Offered to speak with her son about this but patient stated she would discuss with him. Highlighted resources of local DME [employer] and [employer] along with stores carrying medical supplies. Encourage patient to have son secure item this weekend due to her discharge anticipated Saturday. Otherwise she has FWW, shower chair, FWW, and identifies no other equipment needs. HHC: Patient has had [facility] and stated her preference to reinstate this service through that agency. Will complete referral once orders received. Patient has requested to return home after short stay for stabilization. Do not anticipate her being here at the time of weekly team conference. Finalize post hospital care when orders available.
--- NOTE | 2019-09-04 15:38 | NUR ---
provided prayer and Communion.
--- NOTE | 2019-09-04 16:08 | Individualized Plan of Care ---
Individualized Plan of Care Rehab Nursing IPOC Order Admission Date Sep 03, 2019 at 11:35 Current Orders Orders Admission Order(Inpt,Obs,Sdc) (09/03/19 08:58) Sam Newman (09/03/19 08:58) Sequential Compression Device Q4H (09/03/19 08:58) Radiology Equipment Servicer-Inpt Rehab Con (09/03/19 08:58) Rehab Nursing Orders-Ipoc (09/03/19 08:58) Physical Therapy Rehab Orders (09/03/19 08:58) Occupational Therapy Rehab Ord (09/03/19 08:58) Speech Therapy Rehab Orders (09/03/19 08:58) Cbc With Automated Diff (09/04/19 06:00) Comprehensive Metabolic Panel (09/04/19 06:00) General/Regular (09/03/19 Lunch) Precautions (Aru) (09/03/19 08:58) Rehab-Intensity Of Therapy (09/03/19 08:58) Initiate Admission Nursing Pro .admission (09/03/19 08:58) Acetaminophen Tablet (Tylenol Tablet) (09/03/19 09:00) Alprazolam Tablet (Xanax Tablet) (09/03/19 09:00) Calcium Carbonate Chew Tablet (Antacid C (09/03/19 09:00) Diphenhydramine Tablet (Benadryl Tablet) (09/03/19 09:00) Docusate Sodium Capsule (Colace Capsule) (09/03/19 09:00) Bisacodyl Suppository (Dulcolax Supposit (09/03/19 09:00) Lactulose Oral Solution (Enulose Oral So (09/03/19 09:00) Na Phos/Na Biphos Enema (Fleet Enema Amari (09/03/19 09:00) Guaifenesin/Codeine Syrup (Robitussin Ac (09/03/19 09:00) Hydrocodone/Apap 5/325 Tablet (Lortab 5 (09/03/19 09:00) Loperamide Tablet (Imodium Tablet) (09/03/19 09:00) Enoxaparin Injection (Lovenox Injection) (09/03/19 13:00) Melatonin Tablet (Melatonin Tablet) (09/03/19 09:00) Polyethylene Glycol Powder Pkt (Miralax (09/03/19 09:00) Ondansetron Oral Dissolve Tab (Zofran (09/03/19 09:00) Senna S Tablet (Senokot S Tablet) (09/03/19 09:00) Tramadol Tablet (Ultram Tablet) (09/03/19 09:00) Admission Arrival Bed Request (09/03/19 11:35) Patient Visit (09/03/19 ) Speech Sound Lang Comp (09/03/19 ) Oxycodone/Acet 10/325mg Tablet (Percocet (09/03/19 13:45) Patient Visit (09/03/19 ) Pt Eval Low Complexity (09/03/19 ) Functional Activities, Ea 15 (09/03/19 ) Gait Training, Ea 15 Min (09/03/19 ) Sequential Compression Device Q4H (09/03/19 20:12) Dvt/Vte Risk - Notifiy Physici Q4H (09/03/19 20:12) Consult Cardiology (09/04/19 08:33) Aspirin Enteric Coated Tablet (Ecotrin T (09/05/19 09:00) Atorvastatin Tablet (Lipitor) (09/04/19 21:00) Baclofen Tablet (Lioresal Tablet) (09/04/19 09:15) Brimonidine 0.2% Ophth Soln (Alphagan (09/04/19 13:00) Folic Acid Tablet (Folic Acid Tablet) (09/05/19 09:00) Furosemide Tablet (Lasix Tablet) (09/05/19 09:00) Gabapentin Capsule/Tablet (Neurontin Cap (09/04/19 13:00) Hydrocodone/Apap 10/325 Tablet (Lortab 1 (09/04/19 09:15) Ondansetron Oral Dissolve Tab (Zofran (09/04/19 09:15) Pantoprazole Tablet (Protonix Tablet) (09/05/19 07:00) Topiramate Tablet (Topamax Tablet) (09/04/19 21:00) Tramadol Tablet (Ultram Tablet) (09/04/19 09:15) (Nf) Amlodipine Besylate (09/05/19 09:00) (Nf) Carboxymethylcellulos/Glycerin (Ref (09/04/19 13:00) (Nf) Cholecalciferol (Vitamin D3) (Vitam (09/05/19 09:00) (Nf) Codeine/Butalbital/Asa/Caffein (Fio (09/04/19 09:15) (Nf) Duloxetine Hcl (Cymbalta) (09/05/19 09:00) (Nf) Duloxetine Hcl (Cymbalta) (09/05/19 09:00) (Nf) Hydroxychloroquine Sulfate (09/04/19 21:00) (Nf) Ropinirole Hcl (09/05/19 09:00) (Nf) Ropinirole Hcl (09/04/19 21:00) (Nf) Sennosides (Senna Lax) (09/04/19 21:00) (Nf) Topiramate (09/05/19 09:00) Oxycodone Extended Release Tab (Oxyconti (09/04/19 09:15) Cholecalciferol Capsule/Tablet (Vitamin (09/05/19 09:00) Glipizide Tablet (Glucotrol Tablet) (09/04/19 12:00) Metoprolol Succinate (Xl) Tab (Toprol Xl (09/04/19 09:30) Amlodipine Tablet (Norvasc Tablet) (09/04/19 09:30) Duloxetine Capsule (Cymbalta Capsule) (09/04/19 09:30) Duloxetine Capsule (Cymbalta Capsule) (09/04/19 09:30) Hydroxychloroquine Sulfate (Plaquenil) (09/04/19 17:00) Ropinirole Tablet (Requip Tablet) (09/04/19 09:30) Ropinirole Tablet (Requip Tablet) (09/04/19 21:00) Topiramate Tablet (Topamax Tablet) (09/04/19 09:30) Sennosides Tablet (Senokot Tablet) (09/04/19 21:00) Carboxymethylcell Ophth Soln (Refresh Pl (09/04/19 13:00) Patient Visit (09/04/19 ) Gait Training, Ea 15 Min (09/04/19 ) Functional Activities, Ea 15 (09/04/19 ) Exercise Therap, Ea 15 Min (09/04/19 ) Ex Neuromuscular, Ea 15 Min (09/04/19 ) Rehab Nursing Orders: Ongoing Assess. of Cognitive Status, Ongoing Assess. of Function Status, Bladder Training, Bowel Management, Disease Management & Educaiton, DVT Prophylaxis, Fall Prevention, Fluid/Electrolyte/Nutrition Mgmt, Infection Prevention, Medication Management & Education, Management of Risks & Complications, Management of Skin Intergrity, Nutrition Management, Pain Management, Patient/Family Support, Safety Management Intensity of Therapy to be met Patient to be seen: Min.3h per day/5 of 7d PT IPOC Problem List: Activity Tolerance, Functional Strength, Safety, Balance, Gait, Transfer, Bed Mobility Treatment Plan: Continue Plan of Care Bed Mobility, Concurrent Therapy, Education, Functional Activity Tay, Functional Strength, Group Therapy, Gait, Safety, Therapeutic Exercise, Transfers Treatment Duration: Sep 03, 2019 Frequency: At least 5 of 7 days/Wk (IRF) Estimated Hrs Per Day: 1.5 hours per day OT IPOC Problems: Decreased Activ Tolerance, Decreased UE Strength, Impaired Coordination, Impaired Funct Balance, Impaired I ADL's, Impaired Self-Care Skills, Restricted Funct UE ROM OT Treatment, Training and Edu: Yes Plan of Care: ADL Retraining, Functional Mobility, UE Funct Exercise/Act Treatment Duration: Sep 17, 2019 Frequency: At least 5 of 7 days/Wk (IRF) Estimated Hrs Per Day: 1.[address] IPOC Speech Therapy Treatment Plan: Continue Plan of Care Treatment Duration: Sep 11, 2019 Frequency: 5 times per week Estimated Hrs Per Day: .5 hour per day Radiology Equipment Servicer/Case Mgmt Radiology Equipment Servicer/Case Managemen: Discharge Planning Dietitian/Firmware Manager Dietitian/Firmware Manager to monitor nutritional status and make changes and/or recommendations as needed and work with speech pathology on dietary upgrades as the occur. Physician IPOC Medical Issues being managed closely and that require the 24 hour availability of a physician: Patient with recent decompensation following knee replacement 3 months ago so will monitor closely for respiratory compromise and renal failure Medical Issues: Bowel/Bladder Function, DVT Prophylaxis, Falls Precautions, Fluid/Electrolyte/Nutrition Balance, Infection Protection, Pain Management Brief Synthesis of Preadmission Screen, Post-Admission Evaluation, and Therapy Evaluations: Physical therapy will focus on ambulation and fall risk prevention OT we'll focus on regaining independence with right arm dominant hand limi tations Medical Prognosis: Good Anticipated Length of Stay: 5 days OLIVE ISAAC DO Sep 04, 2019 16:08 POS
[2019-09-04 16:10] VITALS: BP 166/84
[2019-09-04] MEDS: HYDROXYCHLOROQUINE 200 MG (PLAQUENIL) TAB PO SCH (17:33)
[2019-09-04] MEDS: BACLOFEN 10 MG (LIORESAL) TAB PO PRN (18:03)
[2019-09-04] MEDS: SENNOSIDES 8.6 MG (SENOKOT) TAB PO SCH (19:50)
[2019-09-04] MEDS ORDERED: NON-FORMULARY MEDICATION 1 EA EA (Ropinirole HCl 2 MG) PO SCH (21:00)
[2019-09-04] MEDS ORDERED: NON-FORMULARY MEDICATION 1 EA EA (Hydroxychloroquine Sulfate 200 MG) PO SCH (21:00)
[2019-09-04] MEDS ORDERED: SENNOSIDES 8.6 MG PO SCH (21:00)
[2019-09-05] MEDS: HYDROcodone/APAP 10 MG/325 MG (LORTAB) TAB PO PRN ×5 (00:31→18:56)
[2019-09-05 05:41] VITALS: BP 176/84
[2019-09-05] MEDS: PANTOPRAZOLE 40 MG (PROTONIX) TAB PO SCH (06:09)
[2019-09-05] MEDS: HYDROXYCHLOROQUINE 200 MG (PLAQUENIL) TAB PO SCH ×2 (06:09→17:14)
[2019-09-05] MEDS: glipiZIDE 5 MG (GLUCOTROL) TAB PO SCH (06:09)
[2019-09-05] MEDS: DULoxetine 30 MG (CYMBALTA) CAP PO SCH (08:16)
[2019-09-05] MEDS: GABAPENTIN 300 MG (NEURONTIN) CAP PO SCH ×3 (08:17→20:04)
[2019-09-05] MEDS: ASPIRIN E.C. 81 MG (ECOTRIN) TAB PO SCH (08:17)
[2019-09-05] MEDS: FOLIC ACID 1 MG TAB PO SCH (08:17)
[2019-09-05] MEDS: meTOprolol SUCCINATE 100 MG (TOPROL XL) TAB PO SCH (08:17)
[2019-09-05] MEDS: amLODIPine 5 MG (NORVASC) TAB PO SCH (08:17)
[2019-09-05] MEDS: toPIRamate 25 MG (TOPAMAX) TAB PO SCH ×2 (08:17→20:04)
[2019-09-05] MEDS: VITAMIN D3 1,000 UNITS (CHOLECALCIFEROL) TABLET PO SCH (08:17)
[2019-09-05] MEDS: FUROSEMIDE 40 MG (LASIX) TAB PO SCH (08:17)
[2019-09-05] MEDS: rOPINIRole 1 MG (REQUIP) TABLET PO SCH ×2 (08:18→20:04)
[2019-09-05] MEDS: oxyCODONE ER 15 MG (oxyCONTIN CR) TAB PO SCH ×2 (08:18→20:04)
[2019-09-05] MEDS: SENNOSIDES 8.6 MG (SENOKOT) TAB PO SCH ×2 (08:20→20:42)
[2019-09-05] MEDS: POLYETHYLENE GLYCOL 17 GM (MIRALAX) PACK PO SCH ×2 (08:21→20:41)
[2019-09-05] MEDS: ARTIFICAL TEARS 0.4 ML UNIT DOSE (REFRESH PLUS) OD SCH ×3 (08:21→20:04)
[2019-09-05] MEDS: BRIMONIDINE 0.2% (ALPHAGAN) OPHTH SOLN 5 ML BTL OU SCH ×3 (08:22→20:05)
[2019-09-05 08:24] VITALS: BP 159/86
[2019-09-05] MEDS ORDERED: PATIENT MAY USE OWN MED,SINGLE MED PO PRN (08:45)
[2019-09-05] MEDS ORDERED: NON-FORMULARY MEDICATION 1 EA EA (Duloxetine HCl (Cymbalta) 30 MG) PO SCH (09:00)
[2019-09-05] MEDS ORDERED: NON-FORMULARY MEDICATION 1 EA EA (Cholecalciferol (Vitamin D3) (Vitamin D3) 1,000 UNIT) PO SCH (09:00)
[2019-09-05] MEDS ORDERED: TOPIRAMATE 75 MG PO SCH (09:00)
[2019-09-05] MEDS ORDERED: NON-FORMULARY MEDICATION 1 EA EA (Duloxetine HCl (Cymbalta) 60 MG) PO SCH (09:00)
[2019-09-05] MEDS ORDERED: NON-FORMULARY MEDICATION 1 EA EA (Amlodipine Besylate 5 MG) PO SCH (09:00)
[2019-09-05] MEDS ORDERED: NON-FORMULARY MEDICATION 1 EA EA (Ropinirole HCl 1 MG) PO SCH (09:00)
--- NOTE | 2019-09-05 11:57 | PM&R Progress Note ---
Subjective HPI/CC On Admission Date Seen by Provider: Sep 05, 2019 Time Seen by Provider: 10:45 Subjective/Events-last exam BM are more regular and firm No major issues reported Wants to go home Saturday Pain is now well controlled on Oxycontin of 15mg twice a day in addition to the Percocet 10/325 Q 4hrs she was already taking She does have a lot of Narcotic tolerance given the fact that she takes Hydrocodone 10/325 at home Checked meds and labs Reviewed therapy notes Conferred with dinkey engine firer/fireman of Systems General: Fatigue Musculoskeletal: arm pain Objective Exam Vital Signs Vital Signs Date Time Temp Pulse Resp B/P (MAP) Pulse Ox O2 Delivery O2 Flow Rate FiO2 09/06/19 09:00 Room Air 09/06/19 08:52 100 18 143/75 (97) 95 09/06/19 06:13 36.4 Capillary Refill : Less Than 3 Seconds General Appearance: No Apparent Distress, WD/WN, Chronically ill, Other (pale) HEENT: PERRL/EOMI, Normal ENT Inspection, Pharynx Normal Neck: Full Range of Motion, Normal Inspection, Non Tender, Supple, Carotid Bruit Respiratory: Chest Non Tender, Lungs Clear, Normal Breath Sounds, No Accessory Muscle Use, No Respiratory Distress Cardiovascular: Regular Rate, Rhythm, No Edema, No Gallop, No JVD, No Murmur, Normal Peripheral Pulses Gastrointestinal: Normal Bowel Sounds, No Organomegaly, No Pulsatile Mass, Non Tender, Soft Back: Normal Inspection, No CVA Tenderness, No Vertebral Tenderness Extremity: Normal Capillary Refill, Normal Inspection, Normal Range of Motion (except right arm in sling), Non Tender, No Calf Tenderness, No Pedal Edema Neurologic/Psychiatric: Alert, Oriented x3, No Motor/Sensory Deficits, Normal Mood/Affect Skin: Normal Color, Warm/Dry Lymphatic: No Adenopathy Results/Procedures Lab Patient resulted labs reviewed. FIM Transfers Therapy Code Descriptions/Definitions Functional [place] Measure: 0=Not Assessed/NA 4=Minimal Assistance 1=Total Assistance 5=Supervision or Setup 2=Maximal Assistance 6=Modified [place] 3=Moderate Assistance 7=Complete IndependenceSCALE: Activities may be completed with or without assistive devices. 8-Ajqohkwpop-pqrpcnd completes the activity by him/herself with no assistance from a helper. 5-Set-up or Clean-up Assistance-helper sets up or cleans up; patient completes activity. [place] assists only prior to or following the activity. 4-Supervision or Touching Assistance-helper provides verbal cues and/or touching/steadying and/or contact guard assistance as patient completes activity. Assistance may be provided throughout the activity or intermittently. 3-Partial/Moderate Assistance-helper does LESS THAN HALF the effort. [place] lifts, holds or supports trunk or limbs, but provides less than half the effort. 2-Substantial/Maximal Assistance-helper does MORE THAN HALF the effort. [place] lifts or holds trunk or limbs and provides more than half the effort. 4-Olagrgauz-druqpq does ALL the effort. Patient does none of the effort to complete the activity. Or, the assistance of 2 or more helpers is required for the patient to complete the activity. If activity was not attempted, code reason: 7-Patient Refused. 9-Not Applicable-not attempted and the patient did not perform the activity before the current illness, exacerbation or injury. 10-Not Attempted due to Environmental Limitations-(lack of equipment, weather restraints, etc.). 88-Not Attempted due to Medical Conditions or Safety Concerns. Roll Left to Right (QC): 6 (cautious due to RTS) Sit to Lying (QC): 6 Sit to Stand (QC): 4 Chair/Faf-ko-Muyqp Xfer(QC): 4 Car Transfer (QC): 4 Gait Training Does the Patient Walk?: Yes Distance (FIM): 3=150 ft Distance: 250 x2 Walk 10 feet (QC): 4 Walk 50 ft with 2 Turns(QC): 4 Walk 150 ft (QC): 4 Walking 10ft/uneven surface-QC: 4 Gait Persons Needed: 1 Gait Assistive Device: None Wheelchair Training Does the Pt Use a Wheelchair?: No Stair Training Stair Training: Handrails/: 1 handrail (left) #of Steps: 8 1 Step (curb) (QC): 4 (x5 reps) 4 Steps (QC): 4 12 Steps (QC): 88 Stairs: Pattern: Step to Level of Assist: 4 Balance Picking up an Object (QC): 3 ADL-Treatment Eating (QC): 5 (Set up provided for pt. to feed self.) Oral Hygiene (QC): 4 Shower/Bathe Self (QC): 3 Upper Body Dressing (QC): 2 Lower Body Dressing (QC): 3 On/Off Footwear (QC): 3 Toileting Hygiene (QC): 3 Toilet Transfer (QC): 4 Assessment/Plan Assessment and Plan Assess & Plan/Chief Complaint Assessment: s/p reverse right shoulder replacement per Dr Jasmine POD #4 HTN CAD CRI Anemia Hypoxia periodically Plan: Home meds Long acting narcotic BM regimen IRF protocol DC planned for Saturday (1) S/p reverse total shoulder arthroplasty (2) Renal insufficiency (3) Normocytic anemia Status: Acute (4) Hyperlipidemia Status: Chronic (5) Constipation Status: Acute (6) Type 2 diabetes mellitus Status: Chronic (7) Restless leg syndrome Status: Chronic (8) Essential hypertension Status: Chronic (9) Coronary artery disease Status: Chronic OLIVE ISAAC DO Sep 05, 2019 11:57 POS
[2019-09-05] MEDS: BUTALBITAL PO PRN (12:02)
[2019-09-05] MEDS: CAFFEINE PO PRN (12:02)
[2019-09-05] MEDS: CODEINE PO PRN (12:02)
[2019-09-05] MEDS: ACETAMINOPHEN PO PRN (12:02)
--- NOTE | 2019-09-05 12:14 | Physical Therapy Daily Note ---
PT Daily Note-Current Subjective Pt agreeable to PT session. Pain Numeric Pain Scale: 6 Location: Right Location Body Site: Shoulder Comment: surgical pain Appearance Pt in bed upon arrival, awake and alert. At end of session, pt sitting up in recliner, phone, call light and bedside table within reach Mental Status Patient Orientation: Normal For Age R shoulder sling Transfers SCALE: Activities may be completed with or without assistive devices. 2-Ctwlmojjty-zaacsau completes the activity by him/herself with no assistance from a helper. 5-Set-up or Clean-up Assistance-helper sets up or cleans up; patient completes activity. [place] assists only prior to or following the activity. 4-Supervision or Touching Assistance-helper provides verbal cues and/or touching/steadying and/or contact guard assistance as patient completes activity. Assistance may be provided throughout the activity or intermittently. 3-Partial/Moderate Assistance-helper does LESS THAN HALF the effort. [place] lifts, holds or supports trunk or limbs, but provides less than half the effort. 2-Substantial/Maximal Assistance-helper does MORE THAN HALF the effort. [place] l ifts or holds trunk or limbs and provides more than half the effort. 6-Etfvafswb-pseegg does ALL the effort. Patient does none of the effort to complete the activity. Or, the assistance of 2 or more helpers is required for the patient to complete the activity. If activity was not attempted, code reason: 7-Patient Refused. 9-Not Applicable-not attempted and the patient did not perform the activity before the current illness, exacerbation or injury. 10-Not Attempted due to Environmental Limitations-(lack of equipment, weather restraints, etc.). 88-Not Attempted due to Medical Conditions or Safety Concerns. Roll Left to Right (QC): 5 Sit to Lying (QC): 3 Sit to Stand (QC): 4 Chair/Are-je-Jjvnc Xfer(QC): 4 Weight Bearing right side total shoulder precautions Gait Training Does the Patient Walk?: Yes Distance: 324 Walk 10 feet (QC): 4 Walk 50 ft with 2 Turns(QC): 4 Walk 150 ft (QC): 4 Gait Persons Needed: 1 Gait Assistive Device: None kyphotic posture with slightly fwd head, no LOB, min path deviation Exercises ROM R elbow, wrist, hand fingers with manual therapy x10 minutes to increase ROM and strength, decrease pain and edema Treatments education, safety, gait, transfers, functional mobility, bed mobility, activity tolerance, ROM, strength, balance Assessment Current Status: Good Progress PT Short Term Goals Short Term Goals Time Frame: Sep 10, 2019 Gait Distance Comment: 200' Gait Assistive Device: None (SBA) # of Steps: 4 (SBA) PT Intermediate Goals Baccarat Manager Goals PT Baccarat Manager Goals Time Frame: Sep 24, 2019 Sit to Lying (QC): 6 Lying-Sitting on Side/Bed(QC): 6 Sit to Stand (QC): 6 Roll Left to Right (QC): 6 Chair/Gby-ha-Xwdrm Xfer(QC): 6 Car Transfer (QC): 6 Does the Patient Walk: Yes Distance: 500' Walk 10 feet (QC): 6 Walk 10ft-Uneven Surface(QC): 6 Walk 50ft with 2 Turns (QC): 6 Walk 150 ft (QC): 6 Gait Assistive Device: None # of Steps: 4 1 Step (curb) (QC): 6 4 Steps (QC): 6 Picking up an Object (QC): 6 PT Plan Treatment/Plan Treatment Plan: Continue Plan of Care Treatment Plan: Bed Mobility, Concurrent Therapy, Education, Functional Activity [place], Functional Strength, Group Therapy, Gait, Safety, Therapeutic Exercise, Transfers Treatment Duration: Sep 03, 2019 Frequency: At least 5 of 7 days/Wk (IRF) Estimated Hrs Per Day: 1.5 hours per day Patient and/or Family Agrees t: Yes Safety Risks/Education Patient Education: Gait Training, Transfer Techniques, Reviewed Precautions, Reviewed Use of Ice, Correct Positioning, Reviewed Don/Doff Brace, Safety Issues Time/GCodes Time In: 910 Time Out: 936 Total Billed Treatment Time: 26 Total Billed Treatment 1 visit, EX x1 unit, GT x1 unit GARY VAZQUEZ DOCK LOADER Sep 05, 2019 12:14 POS
[2019-09-05] MEDS: ENOXAPARIN 40 MG/0.4 ML (LOVENOX) SYR SC SCH (13:24)
--- NOTE | 2019-09-05 14:57 | NUR ---
pt given pain med for 8/10 pain in right shoulder. pt is resting in bed/head elevated/watching television. Pt was active with PT this am/has been longer in between asking for pain meds. Pt has ice pack to right shoulder.
[2019-09-05 17:01] VITALS: BP 146/76
[2019-09-05] MEDS: ONDANSETRON 4 MG (ZOFRAN) ORAL DISSOLVE TAB PO PRN (20:54)
[2019-09-06] MEDS: HYDROcodone/APAP 10 MG/325 MG (LORTAB) TAB PO PRN ×5 (00:57→20:55)
[2019-09-06] MEDS: BACLOFEN 10 MG (LIORESAL) TAB PO PRN (03:42)
[2019-09-06] MEDS: HYDROXYCHLOROQUINE 200 MG (PLAQUENIL) TAB PO SCH ×2 (06:12→17:29)
[2019-09-06] MEDS: PANTOPRAZOLE 40 MG (PROTONIX) TAB PO SCH (06:12)
[2019-09-06 06:13] VITALS: BP 165/88
[2019-09-06] MEDS: glipiZIDE 5 MG (GLUCOTROL) TAB PO SCH (06:13)
--- NOTE | 2019-09-06 08:07 | Cardiology Progress Note ---
Subjective Date Seen by Provider: Sep 06, 2019 Time Seen by Provider: 08:06 Subjective/Events-last exam patient is laying down in bed, feeling well, reporting mild chest discomfort on and off. Review of Systems General: No Chills, No Night Sweats, No Fatigue, No Malaise, No Appetite, No Other HEENT: No Head Aches, No Visual Changes, No Eye Pain, No Ear Pain, No Dysphasia, No Sinus Congestion, No Post Nasal Drip, No Sore Throat, No Other Pulmonary: No Dyspnea, No Cough, No Pleuritic Chest Pain, No Other Cardiovascular: No: Chest Pain, Palpitations, Orthopnea, Paroxysmal Noc. Dyspnea, Edema, Lt Headedness, Other Objective-Cardiology Exam Last Set of Vital Signs Vital Signs 09/06/19 06:13 Temp 36.4 Pulse 97 Resp 20 B/P (MAP) 165/88 (113) Pulse Ox 94 O2 Delivery Room Air Capillary Refill : Less Than 3 Seconds I&O Intake and Output 09/06/19 00:00 Intake Total 990 ml Output Total 500 ml Balance 490 ml Intake Oral 990 ml Output Urine Total 500 ml # Voids 2 # Bowel Movements 1 General: Alert, Oriented X3, Cooperative HEENT: Atraumatic, PERRLA Neck: Supple, No JVD, No Thyromegaly Lungs: Clear to Auscultation, Normal Air Movement Heart: Regular Rate, Normal S1, Normal S2, No Murmurs Abdomen: Normal Bowel Sounds, Soft, No Tenderness, No Hepatosplenomegaly, No Masses Extremities: No Clubbing, No Cyanosis, No Edema, Normal Pulses, No Tenderness/Swelling Skin: No Rashes, No Breakdown, No Significant Lesion Neuro: Normal Gait, Normal Speech, Strength at 5/5 X4 Ext, Normal Tone, Sensation Intact Psych/Mental Status: Mental Status NL, Mood NL Results Lab Laboratory Tests Test 09/05/19 10:31 09/05/19 15:40 09/05/19 21:04 09/06/19 05:42 Range/Units Glucometer 141 H 185 H 186 H 193 H 70-110 MG/DL A/P-Cardiology Admission Diagnosis Status post shoulder arthroplasty Coronary artery disease Hypertension Hyperlipidemia Assessment/Plan Post shoulder surgery recovering, doing well. Managed with physical therapy Chest pain nonspecific etiology, history of recurrent chest pain mainly pleur itic in nature, I will evaluate EKG. History of coronary artery disease with a stent to the right coronary artery using 3.5 x 20 mm Ion stent done in 2009. Last stress test done in November 2018 showing no significant ischemia or infarction. Continue to monitor. Anemia, monitor H&H Chronic kidney disease, continue to monitor renal function Hypertension, poorly controlled, I will increase amlodipine to 10 mg daily and monitor tolerance and response Hyperlipidemia, maintained on Lipitor 40 mg, continue to monitor Diabetes mellitus, followed and managed by primary care physician History of restless leg syndrome Clinical Quality Measures DVT/VTE Risk/Contraindication: Risk Factor Score Per Nursin RFS Level Per Nursing on Admit: 4+=Very High ABBI GUTIERREZ MD Sep 06, 2019 08:07 POS
--- NOTE | 2019-09-06 08:51 | NUR ---
Picture of EKG sent to Dr. Singh per his request. No new orders rec'd.
[2019-09-06 08:52] VITALS: BP 143/75
[2019-09-06] MEDS: ASPIRIN E.C. 81 MG (ECOTRIN) TAB PO SCH (08:54)
[2019-09-06] MEDS: VITAMIN D3 1,000 UNITS (CHOLECALCIFEROL) TABLET PO SCH (08:54)
[2019-09-06] MEDS: DULoxetine 30 MG (CYMBALTA) CAP PO SCH (08:54)
[2019-09-06] MEDS: FOLIC ACID 1 MG TAB PO SCH (08:54)
[2019-09-06] MEDS: toPIRamate 25 MG (TOPAMAX) TAB PO SCH ×2 (08:54→20:54)
[2019-09-06] MEDS: SENNOSIDES 8.6 MG (SENOKOT) TAB PO SCH ×2 (08:55→19:47)
[2019-09-06] MEDS: rOPINIRole 1 MG (REQUIP) TABLET PO SCH ×2 (08:55→20:54)
[2019-09-06] MEDS: meTOprolol SUCCINATE 100 MG (TOPROL XL) TAB PO SCH (08:55)
[2019-09-06] MEDS: FUROSEMIDE 40 MG (LASIX) TAB PO SCH (08:55)
[2019-09-06] MEDS: POLYETHYLENE GLYCOL 17 GM (MIRALAX) PACK PO SCH ×2 (08:55→19:47)
[2019-09-06] MEDS: GABAPENTIN 300 MG (NEURONTIN) CAP PO SCH ×3 (08:55→20:54)
[2019-09-06] MEDS: amLODIPine 10 MG (NORVASC) TAB PO SCH (08:55)
[2019-09-06] MEDS: oxyCODONE ER 15 MG (oxyCONTIN CR) TAB PO SCH ×2 (08:56→20:54)
[2019-09-06] MEDS: ARTIFICAL TEARS 0.4 ML UNIT DOSE (REFRESH PLUS) OD SCH ×3 (08:57→20:54)
[2019-09-06] MEDS: BRIMONIDINE 0.2% (ALPHAGAN) OPHTH SOLN 5 ML BTL OU SCH ×3 (08:58→20:55)
--- NOTE | 2019-09-06 09:00 | NUR ---
Dr Singh to pt room/ Pt complains of left upper chest pain. EKG ordered and done. Pt given AM medications/ up to br to void with standby assistance only. Pt tolerated well. Pt has taken arm out of sling/states that while she is lying in bed, she will give her arm some freedom out of sling. Pt continues to have pain with slight movement of left arm. Lungs clear /diminished. BS x4/no edema noted. Appropriate pulses in extremities/good flexion with feet bilaterally.
--- NOTE | 2019-09-06 11:03 | NUR ---
pt walking in hallways/tolerating well. pt has left arm in sling. pt conversing/smiling/has standby assist only.
[2019-09-06] MEDS: ENOXAPARIN 40 MG/0.4 ML (LOVENOX) SYR SC SCH (13:11)
--- NOTE | 2019-09-06 15:22 | NUR ---
PT STATES PAIN IS IN CONTROL. PT AMBULATED IN HALLWAY WITH STAFF MEMBER. GAIT BELT IN PLACE. PT TOLERATED WELL.
--- NOTE | 2019-09-06 15:23 | PM&R Progress Note ---
Subjective HPI/CC On Admission Date Seen by Provider: Sep 06, 2019 Time Seen by Provider: 11:30 Subjective/Events-last exam BM are more regular No major issues reported Wants to go home Saturday Joellen ZENG from [facility] Had some nausea last night and currently, has Zofran at home Pain is now well controlled on Oxycontin of 15mg twice a day in addition to the Percocet 10/325 Q 4hrs she was already taking She does have a lot of Narcotic tolerance given the fact that she takes Hydrocodone 10/325 at home Checked meds and labs Reviewed therapy notes Conferred with senior data scientist of Systems General: Fatigue Musculoskeletal: arm pain Objective Exam Vital Signs Vital Signs Date Time Temp Pulse Resp B/P (MAP) Pulse Ox O2 Delivery O2 Flow Rate FiO2 09/06/19 09:00 Room Air 09/06/19 08:52 100 18 143/75 (97) 95 09/06/19 06:13 36.4 Capillary Refill : Less Than 3 Seconds General Appearance: No Apparent Distress, WD/WN, Chronically ill, Other (pale) HEENT: PERRL/EOMI, Normal ENT Inspection, Pharynx Normal Neck: Full Range of Motion, Normal Inspection, Non Tender, Supple, Carotid Bruit Respiratory: Chest Non Tender, Lungs Clear, Normal Breath Sounds, No Accessory Muscle Use, No Respiratory Distress Cardiovascular: Regular Rate, Rhythm, No Edema, No Gallop, No JVD, No Murmur, Normal Peripheral Pulses Gastrointestinal: Normal Bowel Sounds, No Organomegaly, No Pulsatile Mass, Non Tender, Soft Back: Normal Inspection, No CVA Tenderness, No Vertebral Tenderness Extremity: Normal Capillary Refill, Normal Inspection, Normal Range of Motion (except right arm in sling), Non Tender, No Calf Tenderness, No Pedal Edema Neurologic/Psychiatric: Alert, Oriented x3, No Motor/Sensory Deficits, Normal Mood/Affect Skin: Normal Color, Warm/Dry Lymphatic: No Adenopathy Results/Procedures Lab Patient resulted labs reviewed. FIM Transfers Therapy Code Descriptions/Definitions Functional [place] Measure: 0=Not Assessed/NA 4=Minimal Assistance 1=Total Assistance 5=Supervision or Setup 2=Maximal Assistance 6=Modified [place] 3=Moderate Assistance 7=Complete IndependenceSCALE: Activities may be completed with or without assistive devices. 7-Iviesclmfv-iayvuiy completes the activity by him/herself with no assistance from a helper. 5-Set-up or Clean-up Assistance-helper sets up or cleans up; patient completes activity. [place] assists only prior to or following the activity. 4-Supervision or Touching Assistance-helper provides verbal cues and/or touching/steadying and/or contact guard assistance as patient completes activity. Assistance may be provided throughout the activity or intermittently. 3-Partial/Moderate Assistance-helper does LESS THAN HALF the effort. [place] lifts, holds or supports trunk or limbs, but provides less than half the effort. 2-Substantial/Maximal Assistance-helper does MORE THAN HALF the effort. [place] lifts or holds trunk or limbs and provides more than half the effort. 5-Ynnaskmhc-edvahu does ALL the effort. Patient does none of the effort to complete the activity. Or, the assistance of 2 or more helpers is required for the patient to complete the activity. If activity was not attempted, code reason: 7-Patient Refused. 9-Not Applicable-not attempted and the patient did not perform the activity before the current illness, exacerbation or injury. 10-Not Attempted due to Environmental Limitations-(lack of equipment, weather restraints, etc.). 88-Not Attempted due to Medical Conditions or Safety Concerns. Roll Left to Right (QC): 5 Sit to Lying (QC): 3 Sit to Stand (QC): 4 Chair/Kjy-bq-Cxfgp Xfer(QC): 4 Car Transfer (QC): 4 Gait Training Does the Patient Walk?: Yes Distance (FIM): 3=150 ft Distance: 324 Walk 10 feet (QC): 4 Walk 50 ft with 2 Turns(QC): 4 Walk 150 ft (QC): 4 Walking 10ft/uneven surface-QC: 4 Gait Persons Needed: 1 Gait Assistive Device: None Wheelchair Training Does the Pt Use a Wheelchair?: No Stair Training Stair Training: Handrails/: 1 handrail (left) #of Steps: 8 1 Step (curb) (QC): 4 (x5 reps) 4 Steps (QC): 4 12 Steps (QC): 88 Stairs: Pattern: Step to Level of Assist: 4 Balance Picking up an Object (QC): 3 ADL-Treatment Eating (QC): 5 (Set up provided for pt. to feed self.) Oral Hygiene (QC): 4 Shower/Bathe Self (QC): 3 Upper Body Dressing (QC): 2 Lower Body Dressing (QC): 3 On/Off Footwear (QC): 3 Toileting Hygiene (QC): 3 Toilet Transfer (QC): 4 Assessment/Plan Assessment and Plan Assess & Plan/Chief Complaint Assessment: s/p reverse right shoulder replacement per Dr Jasmine POD #5 HTN CAD CRI Anemia Hypoxia periodically Plan: Home meds Long acting narcotic BM regimen IRF protocol DC planned for Saturday Change accuchecks to QAM (1) S/p reverse total shoulder arthroplasty (2) Renal insufficiency (3) Normocytic anemia Status: Acute (4) Hyperlipidemia Status: Chronic (5) Constipation Status: Acute (6) Type 2 diabetes mellitus Status: Chronic (7) Restless leg syndrome Status: Chronic (8) Essential hypertension Status: Chronic (9) Coronary artery disease Status: Chronic OLIVE ISAAC DO Sep 06, 2019 15:23 POS
[2019-09-06] MEDS ORDERED: ASPI-983 PO (15:27)
[2019-09-06] MEDS ORDERED: OXYC15TA73 PO (15:27)
[2019-09-06] MEDS ORDERED: HYDR-3820 PO (15:27)
--- NOTE | 2019-09-06 15:29 | D/C HH Face to Face Order ---
D/C Face to Face Orders Reconcile Patient Problems Problems Reviewed?: Yes Instructions for Patient Via Ginger Dole Tian, Patient Instructions/FollowUp: Leida Benson in [address] Meneses as scheduled Physician to follow Patient: [facility] Discharge Diet for Home: ADA Diet Patient Problems: Right shoulder replacement DM CAD HTN Goals for Patient: Return to independent living Patient Data-Allergies,Ht & Wt Patient Allergies: Coded Allergies: clopidogrel (Verified Allergy, Severe, BLOOD CLOTS, 11/27/18) Penicillins (Verified Allergy, Mild, RASH, 11/27/18) carisoprodol (Verified Allergy, Mild, RASH, 11/27/18) cephalexin (Verified Allergy, Mild, RASH, 11/27/18) ketorolac (Verified Allergy, Mild, RASH, 11/27/18) prochlorperazine (Verified Allergy, Mild, RASH, 11/27/18) Carbamates (Verified Allergy, Unknown, Rash, 05/28/19) Height (Feet): 5 Height (Inches): 4.00 Weight (Pounds): 216 Weight (Ounces): 4.2 Home Health Need/Face to Face Date of Face to Face: Sep 06, 2019 Clinical Findings: Generalized weakness and fatigue, Muscle weakness, Shortness of breath, Unsteady gait I have seen Pt wjoz-le-dpql: Yes Discharged To: Home Diagnosis/Conditions: Right shoulder replacement DM CAD HTN Patient is Homebound due to: [place] fall risk due to instabilty, Muscle weakness Homebound Status Due to the above stated illness, injury or surgical procedure (medical condition or diagnosis) and associated clinical findings, the patient is homebound because of his/her inability to leave home except with aid of a costa pportive device and/or person AND leaving the home requires a considerable and taxing effort or is medically contraindicated. Pt req the following assistanc: Cane Home Health Nursing Orders Home Health Services Order: Nursing Services, [employer] Delivery Driver-Evaluate & Treat, Physical Therapy-Evaluate & Treat Certify Stmt I certify that this patient is under my care and that I, a nurse practitioner or a physician; a program support assistant working with me, had a face to face encounter that - meets the physician face to face encounter requirements with this patient as dated. OLIVE ISAAC DO Sep 06, 2019 15:29 POS
[2019-09-06] MEDS: BUTALBITAL PO PRN (16:31)
[2019-09-06] MEDS: CAFFEINE PO PRN (16:31)
[2019-09-06] MEDS: ACETAMINOPHEN PO PRN (16:31)
[2019-09-06] MEDS: CODEINE PO PRN (16:31)
[2019-09-06 18:17] VITALS: BP 112/69
--- NOTE | 2019-09-06 18:48 | NUR ---
Dressing change to left shoulder this AM. Incision line cleansed with alcohol pads. AllKare applied to surrounding tissue. Covered with [place] dressing. Incision is well approximated with venkata intact. No redness or drainage noted.
[2019-09-07] MEDS: HYDROcodone/APAP 10 MG/325 MG (LORTAB) TAB PO PRN ×2 (03:38→08:38)
[2019-09-07 06:03] VITALS: BP 164/80
[2019-09-07] MEDS: PANTOPRAZOLE 40 MG (PROTONIX) TAB PO SCH (06:10)
[2019-09-07] MEDS: glipiZIDE 5 MG (GLUCOTROL) TAB PO SCH (06:10)
[2019-09-07] MEDS: HYDROXYCHLOROQUINE 200 MG (PLAQUENIL) TAB PO SCH (06:10)
--- NOTE | 2019-09-07 08:03 | Discharge Summary ---
Diagnosis/Chief Complaint Date of Admission Sep 03, 2019 at 11:35 Date of Discharge Discharge Date: Sep 07, 2019 Discharge Diagnosis Assessment: s/p reverse right shoulder replacement per Dr Jasmine POD #5 HTN CAD CRI Anemia Hypoxia periodically Plan: Home meds Long acting narcotic BM regimen IRF protocol DC planned for Saturday Change accuchecks to QAM (1) S/p reverse total shoulder arthroplasty (2) Renal insufficiency (3) Normocytic anemia Status: Acute (4) Hyperlipidemia Status: Chronic (5) Constipation Status: Acute (6) Type 2 diabetes mellitus Status: Chronic (7) Restless leg syndrome Status: Chronic (8) Essential hypertension Status: Chronic (9) Coronary artery disease Status: Chronic Discharge Summary Discharge Physical Examination Allergies: Coded Allergies: clopidogrel (Verified Allergy, Severe, BLOOD CLOTS, 11/27/18) Penicillins (Verified Allergy, Mild, RASH, 11/27/18) carisoprodol (Verified Allergy, Mild, RASH, 11/27/18) cephalexin (Verified Allergy, Mild, RASH, 11/27/18) ketorolac (Verified Allergy, Mild, RASH, 11/27/18) prochlorperazine (Verified Allergy, Mild, RASH, 11/27/18) Carbamates (Verified Allergy, Unknown, Rash, 05/28/19) Vitals & I&Os Vital Signs Date Time Temp Pulse Resp B/P (MAP) Pulse Ox O2 Delivery O2 Flow Rate FiO2 09/07/19 09:00 Room Air 09/07/19 06:03 36.9 86 20 164/80 (108) 99 General Appearance: Alert, Oriented X3, Cooperative Respiratory: Clear to Auscultation Cardiovascular: Regular Rate Neuro: Normal Gait, Normal Speech, Strength at 5/5 X4 Ext (except right arm in sling) Psych/Mental Status: Mental Status NL, Mood NL Hospital Course Was the Problem List Reviewed?: Yes Hospital course: Pt had an uneventfulhospitalcourse for 5 days after she was admitted following a right reverse total shoulder at [facility] in [place] by Dr. Jasmine with severe debility since that was her dominant hand. She had respiratorycompromise with. hypoxia after the last orthopedic surgery she had an elective knee replacement so she was monitored very closely and pain was well controlled on the long acting Oxycotontin and Hydrocodone for breakthrough pain. Her bowels remained normal and she had no decompensationor concerns during her entire hospital stay and she was DC in improved condition. Labs (last 24 hrs) Laboratory Tests 09/04/19 06:58: Glucometer 181H 09/04/19 08:03: White Blood Count 11.2H, Red Blood Count 4.17L, Hemoglobin 12.1, Hematocrit 39, Mean Corpuscular Volume 92, Mean Corpuscular Hemoglobin 29, Mean Corpuscular Hemoglobin Concent 31L, Red Cell Distribution Width 13.1, Platelet Count 213, Mean Platelet Volume 9.8, Neutrophils (%) (Auto) 76H, Lymphocytes (%) (Auto) 13, Monocytes (%) (Auto) 10, Eosinophils (%) (Auto) 1, Basophils (%) (Auto) 0, Neutrophils # (Auto) 8.5H, Lymphocytes # (Auto) 1.4, Monocytes # (Auto) 1.2H, Eosinophils # (Auto) 0.1, Basophils # (Auto) 0.0, Sodium Level 139, Potassium Level 3.6, Chloride Level 105, Carbon Dioxide Level 20L, Anion Gap 14, Blood Urea Nitrogen 13, Creatinine 1.05, Estimat Glomerular Filtration Rate 52, BUN/Creatinine Ratio 12, Glucose Level 281H, Calcium Level 8.8, Corrected Calcium 9.1, Total Bilirubin 0.4, Aspartate Amino Transf (AST/SGOT) 9, Alanine Aminotransferase (ALT/SGPT) 11, Alkaline Phosphatase 124, Total Protein 6.7, Albumin 3.6 09/04/19 10:53: Glucometer 179H 09/04/19 15:17: Glucometer 198H 09/04/19 20:18: Glucometer 207H 09/05/19 05:39: Glucometer 192H 09/05/19 10:31: Glucometer 141H 09/05/19 15:40: Glucometer 185H 09/05/19 21:04: Glucometer 186H 09/06/19 05:42: Glucometer 193H 09/06/19 10:56: Glucometer 121H 09/07/19 04:20: White Blood Count 6.6, Red Blood Count 3.55L, Hemoglobin 10.3L, Hematocrit 33L, Mean Corpuscular Volume 94, Mean Corpuscular Hemoglobin 29, Mean Corpuscular Hemoglobin Concent 31L, Red Cell Distribution Width 13.2, Platelet Count 272, Mean Platelet Volume 10.4, Neutrophils (%) (Auto) 52, Lymphocytes (%) (Auto) 30, Monocytes (%) (Auto) 14H, Eosinophils (%) (Auto) 4, Basophils (%) (Auto) 1, Neutrophils # (Auto) 3.4, Lymphocytes # (Auto) 1.9, Monocytes # (Auto) 0.9, Eosinophils # (Auto) 0.3, Basophils # (Auto) 0.0, Sodium Level 140, Potassium Level 3.8, Chloride Level 105, Carbon Dioxide Level 22, Anion Gap 13, Blood Urea Nitrogen 23H, Creatinine 1.22, Estimat Glomerular Filtration Rate 43, BUN/Creatinine Ratio 19, Glucose Level 155H, Calcium Level 8.8, Corrected Calcium 9.4, Total Bilirubin 0.2, Aspartate Amino Transf (AST/SGOT) 16, Alanine Aminotransferase (ALT/SGPT) 16, Alkaline Phosphatase 142H, Total Protein 6.3L, Albumin 3.3 Pending Labs Laboratory Tests 09/04/19 06:58: Glucometer 181 09/04/19 08:03: White Blood Count 11.2, Red Blood Count 4.17, Hemoglobin 12.1, Hematocrit 39, Mean Corpuscular Volume 92, Mean Corpuscular Hemoglobin 29, Mean Corpuscular Hemoglobin Concent 31, Red Cell Distribution Width 13.1, Platelet Count 213, Mean Platelet Volume 9.8, Neutrophils (%) (Auto) 76, Lymphocytes (%) (Auto) 13, Monocytes (%) (Auto) 10, Eosinophils (%) (Auto) 1, Basophils (%) (Auto) 0, Neutrophils # (Auto) 8.5, Lymphocytes # (Auto) 1.4, Monocytes # (Auto) 1.2, Eosinophils # (Auto) 0.1, Basophils # (Auto) 0.0, Sodium Level 139, Potassium Level 3.6, Chloride Level 105, Carbon Dioxide Level 20, Anion Gap 14, Blood Urea Nitrogen 13, Creatinine 1.05, Estimat Glomerular Filtration Rate 52, BUN/Creatinine Ratio 12, Glucose Level 281, Calcium Level 8.8, Corrected Calcium 9.1, Total Bilirubin 0.4, Aspartate Amino Transf (AST/SGOT) 9, Alanine Aminotransferase (ALT/SGPT) 11, Alkaline Phosphatase 124, Total Protein 6.7, Albumin 3.6 09/04/19 10:53: Glucometer 179 09/04/19 15:17: Glucometer 198 09/04/19 20:18: Glucometer 207 09/05/19 05:39: Glucometer 192 09/05/19 10:31: Glucometer 141 09/05/19 15:40: Glucometer 185 09/05/19 21:04: Glucometer 186 09/06/19 05:42: Glucometer 193 09/06/19 10:56: Glucometer 121 09/07/19 04:20: White Blood Count 6.6, Red Blood Count 3.55, Hemoglobin 10.3, Hematocrit 33, Mean Corpuscular Volume 94, Mean Corpuscular Hemoglobin 29, Mean Corpuscular Hemoglobin Concent 31, Red Cell Distribution Width 13.2, Platelet Count 272, Mean Platelet Volume 10.4, Neutrophils (%) (Auto) 52, Lymphocytes (%) (Auto) 30, Monocytes (%) (Auto) 14, Eosinophils (%) (Auto) 4, Basophils (%) (Auto) 1, Neutrophils # (Auto) 3.4, Lymphocytes # (Auto) 1.9, Monocytes # (Auto) 0.9, Eosinophils # (Auto) 0.3, Basophils # (Auto) 0.0, Sodium Level 140, Potassium Level 3.8, Chloride Level 105, Carbon Dioxide Level 22, Anion Gap 13, Blood Urea Nitrogen 23, Creatinine 1.22, Estimat Glomerular Filtration Rate 43, BUN/Creatinine Ratio 19, Glucose Level 155, Calcium Level 8.8, Corrected Calcium 9.4, Total Bilirubin 0.2, Aspartate Amino Transf (AST/SGOT) 16, Alanine Aminotransferase (ALT/SGPT) 16, Alkaline Phosphatase 142, Total Protein 6.3, Albumin 3.3 Discharge Home Medications: Active Scripts Active Oxycontin (Oxycodone HCl) 15 Mg Tab.er.12h 15 Mg PO Q12HR Hydrocodon-Acetaminophn 10-325 (Hydrocodone/Acetaminophen) 1 Each Tablet 1 Ea PO Q4H PRN Aspirin EC (Aspirin) 81 Mg Tablet.dr 81 Mg PO DAILY 30 Days Reported Tramadol HCl 50 Mg Tablet 50-100 Mg PO QID PRN DOES NOT TAKE IF TAKING OTHER PRESCRIPTION PAIN MEDICATION Amlodipine Besylate 5 Mg Tablet 5 Mg PO DAILY Fiorinal-Cod [id number] Cap (Codeine/Butalbital/ASA/Caffein) 1 Each Capsule 1 Cap PO TID PRN Ropinirole HCl 1 Mg Tablet 2 Mg PO HS TAKES 2 (1MG) TABLETS Ropinirole HCl 1 Mg Tablet 1 Mg PO DAILY Vitamin D3 (Cholecalciferol (Vitamin D3)) 1,000 Unit Capsule 1,000 Unit PO DAILY Ondansetron Odt (Ondansetron) 4 Mg Tab.rapdis 4 Mg PO Q4H PRN Atorvastatin Calcium 40 Mg Tablet 40 Mg PO HS Metoprolol Succinate 100 Mg Tab.er.24h 100 Mg PO DAILY Gabapentin 300 Mg Capsule 300 Mg PO TID LAST FILLED #90 07-09-19 Refresh Optive Gel Eye Drops (Carboxymethylcellulos/Glycerin) 10 Ml Drops.gel 1 Drop OD TID USE RIGHT BEFORE BRIMONIDINE EYE DROPS Furosemide 40 Mg Tablet 40 Mg PO DAILY Cymbalta (Duloxetine HCl) 60 Mg Capsule.dr 60 Mg PO DAILY TAKES ALONG WITH 30MG CAPSULE FOR A TOTAL DAILY DOSE OF 90MG Brimonidine Tartrate 5 Ml Btl 1 Drop OU TID 0.15% Hydroxychloroquine Sulfate 200 Mg Tablet 200 Mg PO BID Folic Acid 1 Mg Tablet 1 Mg PO DAILY Glipizide 5 Mg Tablet 2.5 Mg PO DAILY TAKES 1/2 (5MG) TABLET Baclofen 10 Mg Tablet 10 Mg PO TID PRN Cymbalta (Duloxetine HCl) 30 Mg Capsule.dr 30 Mg PO DAILY TAKE ALONG WITH 60MG CAP FOR A TOTAL DAILY DOSE OF 90MG Topiramate 50 Mg Tablet 75 Mg PO DAILY TAKE 1 & 1/2 OF 50MG TAB Topiramate 25 Mg Tablet 25 Mg PO HS Pantoprazole Sodium 40 Mg Tablet.dr 40 Mg PO DAILY Instructions to patient/family Please see electronic discharge instructions given to patient. Diagnosis/Problems Diagnosis/Problems (1) S/p reverse total shoulder arthroplasty (2) Renal insufficiency (3) Normocytic anemia Status: Acute (4) Hyperlipidemia Status: Chronic (5) Constipation Status: Acute (6) Type 2 diabetes mellitus Status: Chronic (7) Restless leg syndrome Status: Chronic (8) Essential hypertension Status: Chronic (9) Coronary artery disease Status: Chronic Clinical Quality Measures DVT/VTE Risk/Contraindication: Risk Factor Score Per Nursin RFS Level Per Nursing on Admit: 4+=Very High OLIVE ISAAC DO Sep 07, 2019 08:03 POS
--- NOTE | 2019-09-07 08:22 | Cardiology Progress Note ---
Subjective Date Seen by Provider: Sep 07, 2019 Time Seen by Provider: 08:20 Subjective/Events-last exam Patient is sitting up in bed, no new complaints. Denies any chest pain or dyspnea. Being discharged home today. Review of Systems General: No Chills, No Night Sweats, No Fatigue, No Malaise, No Appetite, No Other HEENT: No Head Aches, No Visual Changes, No Eye Pain, No Ear Pain, No Dysphasia, No Sinus Congestion, No Post Nasal Drip, No Sore Throat, No Other Pulmonary: No Dyspnea, No Cough, No Pleuritic Chest Pain, No Other Cardiovascular: No: Chest Pain, Palpitations, Orthopnea, Paroxysmal Noc. Dyspnea, Edema, Lt Headedness, Other Objective-Cardiology Exam Last Set of Vital Signs Vital Signs 09/07/19 06:03 Temp 36.9 Pulse 86 Resp 20 B/P (MAP) 164/80 (108) Pulse Ox 99 O2 Delivery Room Air Capillary Refill : Less Than 3 Seconds I&O Intake and Output 09/07/19 00:00 Intake Total 1200 ml Balance 1200 ml Intake Oral 1200 ml # Voids 5 # Bowel Movements 1 General: Alert, Oriented X3, Cooperative HEENT: Atraumatic, PERRLA Neck: Supple, No JVD, No Thyromegaly Lungs: Clear to Auscultation, Normal Air Movement Heart: Regular Rate, Normal S1, Normal S2, No Murmurs Abdomen: Normal Bowel Sounds, Soft, No Tenderness, No Hepatosplenomegaly, No Masses Extremities: No Clubbing, No Cyanosis, No Edema, Normal Pulses, No Tenderness/Swelling Skin: No Rashes, No Breakdown, No Significant Lesion Neuro: Normal Gait, Normal Speech, Strength at 5/5 X4 Ext, Normal Tone, Sensation Intact Psych/Mental Status: Mental Status NL, Mood NL Results Lab Laboratory Tests 09/07/19 04:20 A/P-Cardiology Admission Diagnosis Status post shoulder arthroplasty Coronary artery disease Hypertension Hyperlipidemia Assessment/Plan Post shoulder surgery recovering, doing well. Managed with physical therapy Chest pain nonspecific etiology, history of recurrent chest pain mainly pleuritic in nature, denies any chest pain this morning. History of coronary artery disease with a stent to the right coronary artery i ng 3.5 x 20 mm Ion stent done in 2009. Last stress test done in November 2018 showing no significant ischemia or infarction. Continue to monitor. Anemia, monitor H&H Chronic kidney disease, continue to monitor renal function Hypertension, poorly controlled, amlodipine increased to 10mg. Continue to monitor BP. Patient instructed to monitor BP at home daily for next 2 weeks and bring recordings to follow up visit. Hyperlipidemia, maintained on Lipitor 40 mg, continue to monitor Diabetes mellitus, followed and managed by primary care physician History of restless leg syndrome Patient was seen and evaluated with Maria D, examination performed, management plan was discussed, agree with the current scribed note, I made few changes to the note using Italic font Patient was seen at bedside, comfortable, going home today Lungs were clear to auscultation, heart is regular Started on amlodipine 10 mg daily, educated on taking the medication monitoring her blood pressure at home and reported to me. Clinical Quality Measures DVT/VTE Risk/Contraindication: Risk Factor Score Per Nursin RFS Level Per Nursing on Admit: 4+=Very High MARIA D ORTIZ Sep 07, 2019 08:22 ABBI ALBERT MD Sep 07, 2019 10:47 POS
[2019-09-07] MEDS: BRIMONIDINE 0.2% (ALPHAGAN) OPHTH SOLN 5 ML BTL OU SCH (08:35)
[2019-09-07] MEDS: rOPINIRole 1 MG (REQUIP) TABLET PO SCH (08:36)
[2019-09-07] MEDS: FOLIC ACID 1 MG TAB PO SCH (08:36)
[2019-09-07] MEDS: FUROSEMIDE 40 MG (LASIX) TAB PO SCH (08:36)
[2019-09-07] MEDS: GABAPENTIN 300 MG (NEURONTIN) CAP PO SCH (08:36)
[2019-09-07] MEDS: meTOprolol SUCCINATE 100 MG (TOPROL XL) TAB PO SCH (08:36)
[2019-09-07] MEDS: VITAMIN D3 1,000 UNITS (CHOLECALCIFEROL) TABLET PO SCH (08:37)
[2019-09-07] MEDS: ASPIRIN E.C. 81 MG (ECOTRIN) TAB PO SCH (08:38)
[2019-09-07] MEDS: toPIRamate 25 MG (TOPAMAX) TAB PO SCH (08:39)
[2019-09-07] MEDS: amLODIPine 10 MG (NORVASC) TAB PO SCH (08:39)
[2019-09-07] MEDS: ARTIFICAL TEARS 0.4 ML UNIT DOSE (REFRESH PLUS) OD SCH (08:40)
[2019-09-07] MEDS: ACETAMINOPHEN PO PRN (08:45)
[2019-09-07] MEDS: BUTALBITAL PO PRN (08:45)
[2019-09-07] MEDS: CODEINE PO PRN (08:45)
[2019-09-07] MEDS: CAFFEINE PO PRN (08:45)
[2019-09-07 08:47] LABS: BASOPHILS % (AUTO) 1 % (0-10); EOSINOPHILS # (AUTO) 0.3 10^3/uL (0.0-0.3); EOSINOPHILS % (AUTO) 4 % (0-10); HEMATOCRIT 33 % (35-52); HEMOGLOBIN 10.3 G/DL (11.5-16.0); LYMPHOCYTES # (AUTO) 1.9 X 10^3 (1.0-4.0); LYMPHOCYTES % (AUTO) 30 % (12-44); MEAN CORPUSCULAR HEMOGLOBIN 29 PG (25-34); MEAN CORPUSCULAR HGB CONC 31 G/DL (32-36); MEAN CORPUSCULAR VOLUME 94 FL (80-99); MEAN PLATELET VOLUME 10.4 FL (7.4-10.4); MONOCYTES # (AUTO) 0.9 X 10^3 (0.0-1.0); MONOCYTES % (AUTO) 14 % (0-12); NEUTROPHILS # (AUTO) 3.4 X 10^3 (1.8-7.8); NEUTROPHILS % (AUTO) 52 % (42-75); PLATELET COUNT 272 10^3/uL (130-400); RED CELL DISTRIBUTION WIDTH 13.2 % (10.0-14.5); WHITE BLOOD COUNT 6.6 10^3/uL (4.3-11.0)
[2019-09-07] MEDS: DULoxetine 30 MG (CYMBALTA) CAP PO SCH (08:50)
[2019-09-07] MEDS: oxyCODONE ER 15 MG (oxyCONTIN CR) TAB PO SCH (08:51)
[2019-09-07] MEDS: SENNOSIDES 8.6 MG (SENOKOT) TAB PO SCH (09:00)
[2019-09-07] MEDS: POLYETHYLENE GLYCOL 17 GM (MIRALAX) PACK PO SCH (09:00)
[2019-09-07 09:04] LABS: ALBUMIN 3.3 GM/DL (3.2-4.5); BILIRUBIN,TOTAL 0.2 MG/DL (0.1-1.0); CALCIUM 8.8 MG/DL (8.5-10.1); CREATININE SERUM 1.22 MG/DL (0.60-1.30); POTASSIUM 3.8 MMOL/L (3.6-5.0); TOTAL PROTEIN 6.3 GM/DL (6.4-8.2)
--- NOTE | 2019-09-07 09:55 | Physical Therapy Daily Note ---
PT Daily Note-Current Subjective Agreeable to PT. Reports she is going home today at 11. Mental Status Patient Orientation: Person, Place, Time, Situation Transfers SCALE: Activities may be completed with or without assistive devices. 4-Eugvjstmea-hnvxlgq completes the activity by him/herself with no assistance from a helper. 5-Set-up or Clean-up Assistance-helper sets up or cleans up; patient completes activity. [place] assists only prior to or following the activity. 4-Supervision or Touching Assistance-helper provides verbal cues and/or touching/steadying and/or contact guard assistance as patient completes activity. Assistance may be provided throughout the activity or intermittently. 3-Partial/Moderate Assistance-helper does LESS THAN HALF the effort. [place] lifts, holds or supports trunk or limbs, but provides less than half the effort. 2-Substantial/Maximal Assistance-helper does MORE THAN HALF the effort. [place] lifts or holds trunk or limbs and provides more than half the effort. 2-Euvdjiiud-wbswpn does ALL the effort. Patient does none of the effort to complete the activity. Or, the assistance of 2 or more helpers is required for the patient to complete the activity. If activity was not attempted, code reason: 7-Patient Refused. 9-Not Applicable-not attempted and the patient did not perform the activity before the current illness, exacerbation or injury. 10-Not Attempted due to Environmental Limitations-(lack of equipment, weather restraints, etc.). 88-Not Attempted due to Medical Conditions or Safety Concerns. Transfers (B, C, W/C): 6 Roll Left to Right (QC): 6 Sit to Lying (QC): 6 Sit to Stand (QC): 6 Chair/Nzl-xd-Lrbyu Xfer(QC): 6 Car Transfer (QC): 6 Weight Bearing right side total shoulder precautions Gait Training Walk 10 feet (QC): 6 Walk 50 ft with 2 Turns(QC): 6 Walk 150 ft (QC): 6 Walking 10ft/uneven surface-QC: 4 Stair Training 1 Step (curb) (QC): 5 4 Steps (QC): 5 12 Steps (QC): 5 Balance Picking up an Object (QC): 88 Treatments Functional transfer and mobility training to assess final mobiltiy skills. Nu step x 10 mintues to promote LE strength and functional activity tolerance. Assessment Current Status: Good Progress PT meeting all goals to a satisfactory level. PT Short Term Goals Short Term Goals Time Frame: Sep 10, 2019 Gait Distance Comment: 200' Gait Assistive Device: None (SBA) # of Steps: 4 (SBA) PT Distributed Generation Project Manager Goals Penitentiary Goals PT Penitentiary Goals Time Frame: Sep 24, 2019 Sit to Lying (QC): 6 (met) Lying-Sitting on Side/Bed(QC): 6 (met) Sit to Stand (QC): 6 (met) Roll Left to Right (QC): 6 (met) Chair/Iuv-zt-Osmkf Xfer(QC): 6 (met) Car Transfer (QC): 6 (met) Does the Patient Walk: Yes Distance: 500' Walk 10 feet (QC): 6 (met) Walk 10ft-Uneven Surface(QC): 6 (scored a 5) Walk 50ft with 2 Turns (QC): 6 (met) Walk 150 ft (QC): 6 (met) Gait Assistive Device: None # of Steps: 4 1 Step (curb) (QC): 6 (scored 5) 4 Steps (QC): 6 (scored a 5) Picking up an Object (QC): 6 (unsafe to attept) PT Plan Problem List Problem List: Activity Tolerance, Functional Strength, Safety, Balance Treatment/Plan Treatment Plan: Discontinue PT (recommend f/u PT for functional balance and safety in her home. ) Treatment Plan: Bed Mobility, Concurrent Therapy, Education, Functional Activity Tay, Functional Strength, Group Therapy, Gait, Safety, Therapeutic Exercise, Transfers Treatment Duration: Sep 03, 2019 Frequency: At least 5 of 7 days/Wk (IRF) Estimated Hrs Per Day: 1.5 hours per day Patient and/or Family Agrees t: Yes Safety Risks/Education Patient Education: Safety Issues Teaching Recipient: Patient Teaching Methods: Discussion Response to Teaching: Verbalize Understanding Time/GCodes Time In: 930 Time Out: 955 Total Billed Treatment Time: 25 Total Billed Treatment visit FA 15 EX 10 PORTER OGDEN PT Sep 07, 2019 09:55 POS
--- NOTE | 2019-09-07 09:58 | Therapy Team Discharge Summary ---
Therapy Discharge Summary Discharge Recommendations Date of Discharge 09/07/2019 Therapy D/C Recommendations: Physical Therapy Home Care (functional balance and safety in her home) Physical Therapy This patient has admitted to ARU post right total shoulder replacement. Prior to shoulder surgery, she was living at home alone caring for herself at an indep level. Upon admission to this unit, she was min assist with all transfers, bed mobiltiy and gait. Her right UE is primarily in a shoulder sling. Treatment has consisted of functional strngth and balance training to promote indep with transfers, gait and safety. She has made good progress and achieved goals (for this setting) to a satisfactory level. Pt to discharge home this date. Occupational Therapy Decreased Activ Tolerance, Decreased UE Strength, Impaired Coordination, Impaired Funct Balance, Impaired I ADL's, Impaired Self-Care Skills, Restricted Funct UE ROM PT Rock Climbing Team Member Goals Fdc Goals PT Fdc Goals Time Frame: Sep 24, 2019 Roll Left to Right (QC): 6 (met) Sit to Lying (QC): 6 (met) Lying-Sitting on Side/Bed(QC): 6 (met) Sit to Stand (QC): 6 (met) Chair/Uoi-hc-Ctsnj Xfer(QC): 6 (met) Car Transfer (QC): 6 (met) Does the Patient Walk: Yes Distance: 500' Walk 10 feet (QC): 6 (met) Walk 10ft-Uneven Surface(QC): 6 (scored a 5) Walk 50ft with 2 Turns (QC): 6 (met) Walk 150 ft (QC): 6 (met) Gait Assistive Device: None # of Steps: 4 1 Step (curb) (QC): 6 (scored 5) 4 Steps (QC): 6 (scored a 5) Picking up an Object (QC): 6 (unsafe to attept) OT Rock Climbing Team Member Goals Rock Climbing Team Member Goals Time Frame: Sep 17, 2019 Eating (QC): 6 Oral Hygiene (QC): 6 Shower/Bathe Self (QC): 5 Upper Body Dressing (QC): 6 Lower Body Dressing (QC): 6 On/Off Footwear (QC): 6 Toileting Hygiene (QC): 6 Toilet/Commode Transfer (QC): 6 Additional Goals: 1-Demonstrate ADL Tasks, 2-Verbalize Understanding, 3- ImproveStrength/Tay 1=Demonstrate adherence to instructed precautions during ADL tasks. 2=Patient will verbalize/demonstrate understanding of assistive devices/modifications for ADL. 3=Patient will improve strength/tolerance for activity to enable patient to perform ADL's. Speech Fdc Goals Fdc Goals The patient will improve cognitive-communication necessary for safety and daily living tasks with minimal assist. PORTER OGDEN PT Sep 07, 2019 09:58 POS
[2019-09-07] MEDS: ONDANSETRON 4 MG (ZOFRAN) ORAL DISSOLVE TAB PO PRN (10:00)
--- NOTE | 2019-09-07 10:00 | NUR ---
Pt complaints of nausea, 1 zofran given po for relief.
--- NOTE | 2019-09-07 10:56 | Speech Therapy Daily Note ---
Speech Daily Progress Note Subjective Date Seen by Provider: Sep 07, 2019 Time Seen by Provider: 00:10 Patient was excited to be returning home today. Objective Patient completed q/a regarding her safety and health plans upon her return home without cues. Assessment Assessment Current Status: Good Progress Treatment Plan Discontinue ST, Goals Met Speech Short Term Goals Short Term Goals Short Term Goals 1) The patient will complete memory tasks related to his daily needs at 90% or greater with minimal cues. 2) The patient will complete safety awareness tasks related to his daily needs at 90% or greater with minimal cues. 3) The patient will complete problem solving tasks related to his daily needs at 90% or greater with minimal cues. Speech [facility] Goals [facility] Goals The patient will improve cognitive-communication necessary for safety and daily living tasks with minimal assist. Speech-Plan Patient/Family Goals Patient/Family Goals: Patient is returning home today. She will be receiving home health services until her arm is healed. Treatment Plan Speech Therapy Treatment Plan: Discontinue ST, Goals Met Treatment Duration: Sep 11, 2019 Frequency: 5 times per week Estimated Hrs Per Day: .5 hour per day Rehab Potential: Good Barriers to Learning: Patient had mild cognitive deficits, however these have resolved. Pt/Family Agrees to Plan: Yes Safety Risks/Education Teaching Recipient: Patient Teaching Methods: Demonstration, Discussion Response to Teaching: Verbalize Understanding, Return Demonstration Education Topics Provided: Continued safety upon her return home. Time Speech Therapy Time In: 09:00 Speech Therapy Time Out: 09:10 Total Billed Time: 10 Billed Treatment Time 1, SLTS No QUALITY CODES: EXPRESSION OF IDEAS/WANTS: 4 UNDERSTANDING VERBAL CONTENT: 4 BRIEF INTERVIEW MENTAL STATUS: YES REPETITION OF 3 WORDS: 3 TEMPORAL ORIENTATION: YEAR: CORRECT, MONTH: CORRECT, DAY: CORRECT RECALL: SOCK: YES, COLOR: YES, BED: YES MEMORY/RECALL ABILITY: RECALL ALL LISTED ITEMS TAYLOR BROTHERSIA ST Sep 07, 2019 10:56 POS
--- NOTE | 2019-09-07 11:01 | Therapy Team Discharge Summary ---
Therapy Discharge Summary Discharge Recommendations Date of Discharge Therapy D/C Recommendations: Physical Therapy Home Care (functional balance and safety in her home) Occupational Therapy Decreased Activ Tolerance, Decreased UE Strength, Impaired Coordination, Impaired Funct Balance, Impaired I ADL's, Impaired Self-Care Skills, Restricted Funct UE ROM Speech-Language Pathology Patient is a 69 year old woman who was admitted to the ARU s/p shoulder surgery. Patient was given the SLUMS at bedside upon admission with MNCD range of function. Patient received skilled ST with patient meeting ST goals. She is discharging to home with home health services this date. She will discharge from skilled ST as well. PT Inspector Penetrant Goals Senior Care Goals PT Senior Care Goals Time Frame: Sep 24, 2019 Roll Left to Right (QC): 6 (met) Sit to Lying (QC): 6 (met) Lying-Sitting on Side/Bed(QC): 6 (met) Sit to Stand (QC): 6 (met) Chair/Nzq-cl-Viqis Xfer(QC): 6 (met) Car Transfer (QC): 6 (met) Does the Patient Walk: Yes Distance: 500' Walk 10 feet (QC): 6 (met) Walk 10ft-Uneven Surface(QC): 6 (scored a 5) Walk 50ft with 2 Turns (QC): 6 (met) Walk 150 ft (QC): 6 (met) Gait Assistive Device: None # of Steps: 4 1 Step (curb) (QC): 6 (scored 5) 4 Steps (QC): 6 (scored a 5) Picking up an Object (QC): 6 (unsafe to attept) OT Inspector Penetrant Goals Inspector Penetrant Goals Time Frame: Sep 17, 2019 Eating (QC): 6 Oral Hygiene (QC): 6 Shower/Bathe Self (QC): 5 Upper Body Dressing (QC): 6 Lower Body Dressing (QC): 6 On/Off Footwear (QC): 6 Toileting Hygiene (QC): 6 Toilet/Commode Transfer (QC): 6 Additional Goals: 1-Demonstrate ADL Tasks, 2-Verbalize Understanding, 3-ImproveStrength/Tay 1=Demonstrate adherence to instructed precautions during ADL tasks. 2=Patient will verbalize/demonstrate understanding of assistive devices/modifications for ADL. 3=Patient will improve strength/tolerance for activity to enable patient to perform ADL's. Speech Senior Care Goals Inspector Penetrant Goals The patient will improve cognitive-communication necessary for safety and daily living tasks with minimal assist. VÍCTOR Kemp Sep 07, 2019 11:01 POS
--- NOTE | 2019-09-07 11:52 | Occupational Ther Daily Note ---
OT Current Status-Daily Note Subjective Pt alert, agrees to therapy. No c/o pain at this time. Pt to discharge today. Mental Status/Objective Patient Orientation: Person, Place, Time, Situation ADL-Treatment Pt ambulated to bathroom using FWW. Completed toilet transfer and toileting using grabbar and FWW, mod I. Pt retrieved clothing using FWW, mod I. Completed full sponge bath sitting at sink, mod I. Pt dressed self using FWW when needed, mod I. Pt donned/doffed sling/brace by self. Pt complete oral care sitting at sink, mod I. Pt then was able to set own meal up and use regular utensils to eat. After therapy, pt sitting in recliner with call light/phone in reach. All needs met in room. Therapy Code Descriptions/Definitions Functional [place] Measure: 0=Not Assessed/NA 4=Minimal Assistance 1=Total Assistance 5=Supervision or Setup 2=Maximal Assistance 6=Modified [place] 3=Moderate Assistance 7=Complete IndependenceSCALE: Activities may be completed with or without assistive devices. 5-Xsjyyqqssu-wfywkxh completes the activity by him/herself with no assistance from a helper. 5-Set-up or Clean-up Assistance-helper sets up or cleans up; patient completes activity. [place] assists only prior to or following the activity. 4-Supervision or Touching Assistance-helper provides verbal cues and/or touching/steadying and/or contact guard assistance as patient completes activity. Assistance may be provided throughout the activity or intermittently. 3-Partial/Moderate Assistance-helper does LESS THAN HALF the effort. [place] lifts, holds or supports trunk or limbs, but provides less than half the effort. 2-Substantial/Maximal Assistance-helper does MORE THAN HALF the effort. [place] lifts or holds trunk or limbs and provides more than half the effort. 6-Vnwrqqxsd-otaxah does ALL the effort. Patient does none of the effort to complete the activity. Or, the assistance of 2 or more helpers is required for the patient to complete the activity. If activity was not attempted, code reason: 7-Patient Refused. 9-Not Applicable-not attempted and the patient did not perform the activity before the current illness, exacerbation or injury. 10-Not Attempted due to Environmental Limitations-(lack of equipment, weather restraints, etc.). 88-Not Attempted due to Medical Conditions or Safety Concerns. Eating (QC): 6 Oral Hygiene (QC): 6 Bathing Location: L Arm, R Arm, L Upper Leg, R Upper Leg, L Lower Leg (including foot), R Lower Leg (including foot), Chest, Abdomen, Buttocks, Perineal Area Shower/Bathe Self (QC): 6 Upper Body Dressing (QC): 6 Lower Body Dressing (QC): 6 (Footwear (QC)-6) Toileting Hygiene (QC): 6 Toilet Transfer (QC): 6 OT Short Term Goals Short Term Goals 1=Demonstrate adherence to instructed precautions during ADL tasks. 2=Patient will verbalize/demonstrate understanding of assistive devices/modifications for ADL. 3=Patient will improve strength/tolerance for activity to enable patient to perform ADL's. OT Auto Parts Clerk Goals Auto Parts Clerk Goals Time Frame: Sep 17, 2019 Eating (QC): 6 (met-09/07/2019) Oral Hygiene (QC): 6 (met-09/07/2019) Shower/Bathe Self (QC): 5 (met-09/07/2019) Upper Body Dressing (QC): 6 (met-09/07/2019) Lower Body Dressing (QC): 6 (met-09/07/2019) On/Off Footwear (QC): 6 (met-09/07/2019) Toileting Hygiene (QC): 6 (met-09/07/2019) Toilet/Commode Transfer (QC): 6 (met-09/07/2019) Additional Goals: 1-Demonstrate ADL Tasks, 2-Verbalize Understanding, 3- ImproveStrength/Tay 1=Demonstrate adherence to instructed precautions during ADL tasks. 2=Patient will verbalize/demonstrate understanding of assistive devices/modifications for ADL. 3=Patient will improve strength/tolerance for activity to enable patient to perform ADL's. OT Education/Plan Discharge Recommendations Plan/Recommendations: Discharge/Goals Met Treatment Plan/Plan of Care Patient would benefit from OT for education, treatment and training to promote independence in ADL's, mobility, safety and/or upper extremity function for ADL's. Plan of Care: ADL Retraining, Functional Mobility, UE Funct Exercise/Act Treatment Duration: Sep 17, 2019 Frequency: At least 5 of 7 days/Wk (IRF) Estimated Hrs Per Day: 1.5 hours per day Agreement: Yes Rehab Potential: Good Time/GCodes Start Time: 06:55 Stop Time: 07:25 Total Time Billed (hr/min): 30 Billed Treatment Time 1 visit-ADL 2 (30 min) PORTER VICTORIA Sep 07, 2019 11:52 POS
--- NOTE | 2019-09-07 13:07 | NUR ---
Patient discharge today as planned back home via transport by her son Kwasi. [facility]: Resumed with [facility] for RN, PT, OT and other services as recommended through [facility] staff. Rx: Mike MedicareRx required prior authorization for Oxycontin ER 15 mg tablet per [place] at [facility] pharmacy. Pursued through insurance: Phone, . Insurance i.d. for Rx, [id number]. Claim #[id number]. Later received confirmed approval for Rx coverage. Patient dressed and ready to leave this a.m., in agreement with overall discharge plan and no intention to appeal re IMM on this date.
--- NOTE | 2019-09-08 14:35 | Therapy Team Discharge Summary ---
Therapy Discharge Summary Discharge Recommendations Date of Discharge Sep 07, 2019 at 11:00 Therapy D/C Recommendations: Physical Therapy Home Care (functional balance and safety in her home) Occupational Therapy Pt admitted to ARU following right reverse total shoulder. On admission pt required max assist with UE dressing, CGA with transfers, and mod assist with toileting. Skilled OT intervention focused on ADL training and transfer training. Pt made good progress with therapy and by discharge pt is completing basic ADLs and transfers with modified independence. Pt met all OT LTG. D/C ARU OT. Decreased Activ Tolerance, Decreased UE Strength, Impaired Coordination, Impair ed Funct Balance, Impaired I ADL's, Impaired Self-Care Skills, Restricted Funct UE ROM PT Snf Goals Snf Goals PT Fish Header Goals Time Frame: Sep 24, 2019 Roll Left to Right (QC): 6 (met) Sit to Lying (QC): 6 (met) Lying-Sitting on Side/Bed(QC): 6 (met) Sit to Stand (QC): 6 (met) Chair/Gcd-pm-Ndtcm Xfer(QC): 6 (met) Car Transfer (QC): 6 (met) Does the Patient Walk: Yes Distance: 500' Walk 10 feet (QC): 6 (met) Walk 10ft-Uneven Surface(QC): 6 (scored a 5) Walk 50ft with 2 Turns (QC): 6 (met) Walk 150 ft (QC): 6 (met) Gait Assistive Device: None # of Steps: 4 1 Step (curb) (QC): 6 (scored 5) 4 Steps (QC): 6 (scored a 5) Picking up an Object (QC): 6 (unsafe to attept) OT Fish Header Goals Fish Header Goals Time Frame: Sep 17, 2019 Eating (QC): 6 (met-09/07/2019) Oral Hygiene (QC): 6 (met-09/07/2019) Shower/Bathe Self (QC): 5 (met-09/07/2019) Upper Body Dressing (QC): 6 (met-09/07/2019) Lower Body Dressing (QC): 6 (met-09/07/2019) On/Off Footwear (QC): 6 (met-09/07/2019) Toileting Hygiene (QC): 6 (met-09/07/2019) Toilet/Commode Transfer (QC): 6 (met-09/07/2019) Additional Goals: 1-Demonstrate ADL Tasks, 2-Verbalize Understanding, 3- ImproveStrength/Tay 1=Demonstrate adherence to instructed precautions during ADL tasks. 2=Patient will verbalize/demonstrate understanding of assistive devices/modifications for ADL. 3=Patient will improve strength/tolerance for activity to enable patient to perform ADL's. Speech Snf Goals [place] Goals The patient will improve cognitive-communication necessary for safety and daily living tasks with minimal assist. VIOLA Meyers OT Sep 08, 2019 14:35 POS
--- NOTE | 2019-09-09 14:18 | Physician Query Clarification ---
PQ-Intro New Diagnosis Admission/Discharge Admission Date: Sep 03, 2019 at 11:35 Discharge Date: Sep 07, 2019 at 11:00 The medical record reflects the following clinical scenario: History/Risk Factors: S/P RT TSR Clinical Findings: RT arm impairment Treatment: PT, OT Question: What condition best reflects the above clinical scenario (Reason for the Rt. TSR.)? Please document a response in the Progress Noter or Discharge Summary. 1. Chronic rotator cuff tendon tear 2. Weakness rt arm 3. Other, with explanation of the clinical findings. 4. Clinically undetermined, no explanation for the clinical findings. PHYSICIAN RESPONSE What condition reflects above: Other, explanation/clinical finding (reverse right shoulder surgery replacement) Please remember a lack of response to the above will prompt a phone page by CDI/Coding staff. In responding to this query, please exercise your independent professional judgment. The purpose of this communication is to more accurately reflect the complexity of your patients condition. The fact that a question is asked does not imply that any particular answer is desired or expected. Thank you for your timely response to this clarification. Requestors name: Richard THIS PHYSICIAN QUERY FORM IS A PERMANENT PART OF THE MEDICAL RECORD RICHARD CHENEY Sep 09, 2019 14:18 OLIVE FRIAS DO Sep 09, 2019 21:18 POS
== END 2019-09-07 11:00 | disposition home health service (06) | DRG 561 ==
PROVIDERS: ADMIT Internal Medicine; ATTEND Internal Medicine
DX: Z47.1 Aftercare following joint replacement surgery (principal); Z96.611 Presence of right artificial shoulder joint; J44.9 Chronic obstructive pulmonary disease, unspecified; E78.5 Hyperlipidemia, unspecified; I12.9 Hypertensive chronic kidney disease with stage 1 through stage 4 chronic kidney disease, or unspecified chronic kidney disease; N18.9 Chronic kidney disease, unspecified; E11.40 Type 2 diabetes mellitus with diabetic neuropathy, unspecified; K21.9 Gastro-esophageal reflux disease without esophagitis; N28.9 Disorder of kidney and ureter, unspecified; M19.011 Primary osteoarthritis, right shoulder; D64.9 Anemia, unspecified; K59.00 Constipation, unspecified; G25.81 Restless legs syndrome; I25.10 Atherosclerotic heart disease of native coronary artery without angina pectoris; R09.02 Hypoxemia; D50.9 Iron deficiency anemia, unspecified; E89.0 Postprocedural hypothyroidism; H54.3 Unqualified visual loss, both eyes; Z95.5 Presence of coronary angioplasty implant and graft; Z85.3 Personal history of malignant neoplasm of breast; I25.2 Old myocardial infarction; Z87.891 Personal history of nicotine dependence; Z90.710 Acquired absence of both cervix and uterus
CPT/HCPCS: 36415; 80053; 82962; 85025; 93005

== ENCOUNTER → 2019-09-14 | Outpatient (CLI) | payer MEDICARE ==
[~2019-09-14] MED LIST changes: +AMLO5TAB9 PO; +ASPI-983 PO; +ATOR40TA70 PO; +CHOL10007 PO; +CODE1CAP35 PO; +HYDR-3820 PO; +METO-395 PO; +OXYC15TA73 PO; +ROPI1TAB2 PO; +SENN-148 PO
[2019-09-14 08:45] LABS: BASOPHILS # (AUTO) 0.1 10^3/uL (0.0-0.1); BASOPHILS % (AUTO) 1 % (0-10); EOSINOPHILS # (AUTO) 0.2 10^3/uL (0.0-0.3); EOSINOPHILS % (AUTO) 3 % (0-10); HEMATOCRIT 38 % (35-52); LYMPHOCYTES # (AUTO) 2.1 X 10^3 (1.0-4.0); LYMPHOCYTES % (AUTO) 24 % (12-44); MEAN CORPUSCULAR HEMOGLOBIN 29 PG (25-34); MEAN CORPUSCULAR HGB CONC 31 G/DL (32-36); MEAN CORPUSCULAR VOLUME 91 FL (80-99); MEAN PLATELET VOLUME 9.2 FL (7.4-10.4); MONOCYTES # (AUTO) 0.7 X 10^3 (0.0-1.0); MONOCYTES % (AUTO) 8 % (0-12); NEUTROPHILS # (AUTO) 5.6 X 10^3 (1.8-7.8); NEUTROPHILS % (AUTO) 65 % (42-75); PLATELET COUNT 538 10^3/uL (130-400); RED CELL DISTRIBUTION WIDTH 13.1 % (10.0-14.5); WHITE BLOOD COUNT 8.6 10^3/uL (4.3-11.0)
[2019-09-14 08:59] LABS: CREATININE SERUM 1.4 MG/DL (0.60-1.30)
--- NOTE | 2019-09-14 09:47 | Diagnostic Imaging Report ---
EXAMINATION: CT Chest without contrast. TECHNIQUE: Multiple contiguous axial images were obtained through the chest without the use of intravenous contrast. All CT scans use one or more of the following dose optimizing techniques: automated exposure control, MA and/or KvP adjustment based on a patient size and exam type, or iterative reconstruction. HISTORY: Pneumonia COMPARISON: Comparison is 06/14/2019 FINDINGS: The lungs are clear without edema or pneumonia. Previously seen left lower lobe consolidation has resolved. There is minimal bibasilar atelectasis. No pleural effusion or pneumothorax. No suspicious nodules. Left subclavian port catheter is present. Heart size is normal. No pericardial effusion. Aorta is normal in caliber. There is no axillary or supraclavicular lymphadenopathy. There is no mediastinal lymphadenopathy. There are moderate coronary artery calcifications. A left interpolar zone intermediate attenuation renal lesion measuring 15 mm is stable from 07/15/2018. There are no suspicious osseus lesions. There has been recent reverse right total shoulder arthroplasty with gas in the soft tissues and skin venkata. IMPRESSION: 1. Resolution of previously seen left lower lobe consolidation in keeping with resolved pneumonia. 2. Stable intermediate attenuation left renal lesion. This is likely a proteinaceous or hemorrhagic cyst, but a pre and postcontrast evaluation of the abdomen is recommended with renal protocol to ensure it is not a solid enhancing lesion. Dictated by: Dictated on workstation # [id number]
== END ==
LOC: RAD 08:23
PROVIDERS: ATTEND Nurse Practitioner Family
DX: J18.9 Pneumonia, unspecified organism (principal); N28.89 Other specified disorders of kidney and ureter; Z98.890 Other specified postprocedural states
CPT/HCPCS: 36415; 71250; 82565; 84520; 85025

== ENCOUNTER → 2019-10-05 | Outpatient (CLI) | payer MEDICARE ==
[~2019-10-05] MED LIST changes: +RT-ALBUTEROL SULF 2.5 MG/3 ML PRE-MIX VIAL INH ONE
== END ==
LOC: RT 12:04
PROVIDERS: ATTEND Nurse Practitioner Family
DX: J18.9 Pneumonia, unspecified organism (principal); R91.8 Other nonspecific abnormal finding of lung field
CPT/HCPCS: 94060; 94726; 94729

== ENCOUNTER 2019-10-14 12:04 | Emergency (ER) | payer MEDICARE ==
[~2019-10-14] VITALS: Ht 162.6 cm; Wt 81.8 kg
[~2019-10-14 12:04] MED LIST changes: -RT-ALBUTEROL SULF 2.5 MG/3 ML PRE-MIX VIAL INH ONE
--- NOTE | 2019-10-14 12:15 | ED Fall/Injury ---
General Stated Complaint: FALL/ RT WRIST PAIN Source: patient Exam Limitations: no limitations History of Present Illness Date Seen by Provider: Oct 14, 2019 Time Seen by Provider: 12:13 Initial Comments To ER by a son with reports of a fall last night at about midnight. States that she did hit her head. Has a headache, diffuse generalized pain but worse in the right shoulder which she recently had replaced, right elbow, right wrist, low back. Son states that she didn't realize it was [place] today, seemed a bit confused. He suspects that she may have taken too much of her pain medication at home which contributed to the fall and possibly confusion. Occurred: other Injuries/Pain Location: head, neck, upper extremity, back Context: unknown Loss of Consciousness: unsure Modifying Factors: Worse With Movement Associated Symptoms (Fall): Chest Pain, Headache Allergies and Home Medications Allergies Coded Allergies: clopidogrel (Verified Allergy, Severe, BLOOD CLOTS, 11/27/18) Penicillins (Verified Allergy, Mild, RASH, 11/27/18) carisoprodol (Verified Allergy, Mild, RASH, 11/27/18) cephalexin (Verified Allergy, Mild, RASH, 11/27/18) ketorolac (Verified Allergy, Mild, RASH, 11/27/18) prochlorperazine (Verified Allergy, Mild, RASH, 11/27/18) Carbamates (Verified Allergy, Unknown, Rash, 05/28/19) Home Medications Amlodipine Besylate 5 Mg Tablet, 5 MG PO DAILY, (Reported) Aspirin 81 Mg Tablet., 81 MG PO DAILY Prescribed by: OLIVE ISAAC on 09/06/19 1527 Atorvastatin Calcium 40 Mg Tablet, 40 MG PO HS, (Reported) Baclofen 10 Mg Tablet, 10 MG PO TID PRN for MUSCLE SPASMS, (Reported) Brimonidine Tartrate 5 Ml Btl, 1 DROP OU TID, (Reported) 0.15% Carboxymethylcellulos/Glycerin 10 Ml Drops.gel, 1 DROP OD TID, (Reported) USE RIGHT BEFORE BRIMONIDINE EYE DROPS Cholecalciferol (Vitamin D3) 1,000 Unit Capsule, 1,000 UNIT PO DAILY, (Reported) Codeine/Butalbital/ASA/Caffein 1 Each Capsule, 1 CAP PO TID PRN for MIGRAINE, (Reported) Duloxetine HCl 30 Mg Capsule.dr, 30 MG PO DAILY, (Reported) TAKE ALONG WITH 60MG CAP FOR A TOTAL DAILY DOSE OF 90MG Duloxetine HCl 60 Mg Capsule.dr, 60 MG PO DAILY, (Reported) TAKES ALONG WITH 30MG CAPSULE FOR A TOTAL DAILY DOSE OF 90MG Folic Acid 1 Mg Tablet, 1 MG PO DAILY, (Reported) Furosemide 40 Mg Tablet, 40 MG PO DAILY, (Reported) Gabapentin 300 Mg Capsule, 300 MG PO TID, (Reported) LAST FILLED #90 07-09-19 Glipizide 5 Mg Tablet, 2.5 MG PO DAILY, (Reported) TAKES 1/2 (5MG) TABLET Hydrocodone/Acetaminophen 1 Each Tablet, 1 EA PO Q4H PRN for PAIN-MODERATE (5-7) Prescribed by: OLIVE ISAAC on 09/06/19 1527 Hydroxychloroquine Sulfate 200 Mg Tablet, 200 MG PO BID, (Reported) Metoprolol Succinate 100 Mg Tab.er.24h, 100 MG PO DAILY, (Reported) Ondansetron 4 Mg Tab.rapdis, 4 MG PO Q4H PRN for NAUSEA/VOMITING-1ST LINE, (Reported) Oxycodone HCl 15 Mg Tab.er.12h, 15 MG PO Q12HR Prescribed by: OLIVE ISAAC on 09/06/19 152 Pantoprazole Sodium 40 Mg Tablet.dr, 40 MG PO DAILY, (Reported) Ropinirole HCl 1 Mg Tablet, 1 MG PO DAILY, (Reported) Ropinirole HCl 1 Mg Tablet, 2 MG PO HS, (Reported) TAKES 2 (1MG) TABLETS Topiramate 25 Mg Tablet, 25 MG PO HS, (Reported) Topiramate 50 Mg Tablet, 75 MG PO DAILY, (Reported) TAKE 1 & 1/2 OF 50MG TAB Tramadol HCl 50 Mg Tablet, 50-100 MG PO QID PRN for PAIN-MODERATE (5-7), (Reported) DOES NOT TAKE IF TAKING OTHER PRESCRIPTION PAIN MEDICATION Patient Home Medication List Home Medication List Reviewed: Yes Review of Systems Review of Systems Constitutional: see HPI Eyes: No Symptoms Reported Ears, Nose, Mouth, Throat: no symptoms reported Respiratory: no symptoms reported Cardiovascular: no symptoms reported Genitourinary: no symptoms reported Musculoskeletal: see HPI, back pain Skin: no symptoms reported Psychiatric/Neurological: No Symptoms Reported Past Wvnlsxo-Bnhebx-Fynuie Hx Patient Social History 2nd Hand Smoke Exposure: No Recent Foreign Travel: No Contact w/Someone Who Travel: No Recent Hopitalizations: Yes Immunizations Up To Date Date of Pneumonia Vaccine: Jul 29, 2017 Date of Influenza Vaccine: Jun 30, 2019 Seasonal Allergies Seasonal Allergies: No Past Medical History Surgeries: Yes (R CTR, espohageal ligation x2, Hernia, L RCR, L TKR, laparotomy, MRSA infec) Hysterectomy, Joint Replacement, Orthopedic, Thyroidectomy Respiratory: No Currently Using CPAP: No Currently Using BIPAP: No Cardiac: Yes (HX HEART CATH-STENT) Heart Attack, High Cholesterol, Hypertension Neurological: Yes Headaches /Migraines, Neuropathy Sexually Transmitted Disease: No HIV/AIDS: No Genitourinary: Yes (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, STAGE 2-kidneY DISEASE ) Bladder Infection, Renal Failure Gastrointestinal: Yes (HX GI BLEED, zenkers syndrome-chokes easily, hx hep A) Gastroesophageal Reflux, Hepatitis Musculoskeletal: Yes (OSTEOARTHRITIS, BULGING DISCS) Arthritis, Chronic Back Pain Endocrine: Yes (partial thyroidectomy) Diabetes, Non-Insulin dep HEENT: Yes (GLASSES, UPPER DENTURES) Loss of Vision: Bilateral Cancer: Yes Breast Did You Recieve Any Treatments: Yes What Type of Treatment Did You: Radiation, Surgical Intervention Psychosocial: No Integumentary: No Blood Disorders: Yes (IRON DEFFICIENCY ANEMIA-GETS IRON INFUSIONS) Adverse Reaction/Blood Tranf: No (HAS HAD BLOOD WITH NO REACTION) Family Medical History Hypertension G8 BROTHER Not obtainable due to adoption 19 FATHER No Pertinent Family Hx Physical Exam Vital Signs Vital Signs - First Documented 10/14/19 12:08 Temp 36.4 Pulse 98 Resp 18 B/P (MAP) 125/76 (92) Pulse Ox 96 O2 Delivery Room Air Capillary Refill : Height, Weight, BMI Height: 5'4.00" Weight: 216lbs. 4.2oz. 98.448344nt; 33.91 BMI Method:Stated General Appearance: WD/WN, no apparent distress HEENT: PERRL/EOMI, normal ENT inspection Neck: non-tender, full range of motion Respiratory: no respiratory distress, no accessory muscle use Gastrointestinal: normal bowel sounds, non tender, soft Back: normal inspection, vertebral tenderness (lumbar spine) Extremities: normal range of motion, non-tender, other (pain and tenderness with some swelling to the distal forearm on the right. There is a healing incision over the anterior aspect of the right shoulder clean dry and intact without erythema or ecchymosis) Neurologic/Psychiatric: alert, normal mood/affect, oriented x 3 Skin: normal color, warm/dry Dane Coma Score Best Eye Response: (4) Open Spontaneously Best Verbal Response: (5) Oriented Best Motor Response: (6) Obeys Commands Dane Total: 15 Progress/Results/Core Measures Results/Orders Lab Results Laboratory Tests Test 10/14/19 13:26 10/14/19 13:53 Range/Units White Blood Count 13.4 H 4.3-11.0 10^3/uL Red Blood Count 4.38 4.35-5.85 10^6/uL Hemoglobin 12.5 11.5-16.0 G/DL Hematocrit 39 35-52 % Mean Corpuscular Volume 88 80-99 FL Mean Corpuscular Hemoglobin 29 25-34 PG Mean Corpuscular Hemoglobin Concent 32 32-36 G/DL Red Cell Distribution Width 14.2 10.0-14.5 % Platelet Count 290 130-400 10^3/uL Mean Platelet Volume 9.3 7.4-10.4 FL Neutrophils (%) (Auto) 75 42-75 % Lymphocytes (%) (Auto) 14 12-44 % Monocytes (%) (Auto) 10 0-12 % Eosinophils (%) (Auto) 1 0-10 % Basophils (%) (Auto) 0 0-10 % Neutrophils # (Auto) 10.0 H 1.8-7.8 X 10^3 Lymphocytes # (Auto) 1.9 1.0-4.0 X 10^3 Monocytes # (Auto) 1.3 H 0.0-1.0 X 10^3 Eosinophils # (Auto) 0.2 0.0-0.3 10^3/uL Basophils # (Auto) 0.0 0.0-0.1 10^3/uL Sodium Level 142 135-145 MMOL/L Potassium Level 4.0 3.6-5.0 MMOL/L Chloride Level 107 98-107 MMOL/L Carbon Dioxide Level 18 L 21-32 MMOL/L Anion Gap 17 H 5-14 MMOL/L Blood Urea Nitrogen 36 H 7-18 MG/DL Creatinine 1.52 H 0.60-1.30 MG/DL Estimat Glomerular Filtration Rate 34 BUN/Creatinine Ratio 24 Glucose Level 138 H 70-105 MG/DL Calcium Level 9.2 8.5-10.1 MG/DL Corrected Calcium 9.0 8.5-10.1 MG/DL Total Bilirubin 0.4 0.1-1.0 MG/DL Aspartate Amino Transf (AST/SGOT) 13 5-34 U/L Alanine Aminotransferase (ALT/SGPT) 10 0-55 U/L Alkaline Phosphatase 159 H 40-136 U/L Total Protein 7.2 6.4-8.2 GM/DL Albumin 4.2 3.2-4.5 GM/DL Urine Color YELLOW Urine Clarity CLEAR Urine pH 5.5 5-9 Urine Specific [place] 1.020 1.016-1.022 Urine Protein TRACE NEGATIVE Urine Glucose (UA) NEGATIVE NEGATIVE Urine Ketones NEGATIVE NEGATIVE Urine Nitrite NEGATIVE NEGATIVE Urine Bilirubin NEGATIVE NEGATIVE Urine Urobilinogen 0.2 < = 1.0 MG/DL Urine Leukocyte Esterase NEGATIVE NEGATIVE Urine RBC (Auto) NEGATIVE NEGATIVE Urine RBC RARE /HPF Urine WBC NONE /HPF Urine Squamous Epithelial Cells 5-10 /HPF Urine Crystals NONE /LPF Urine Bacteria TRACE /HPF Urine Casts PRESENT /LPF Urine Hyaline Casts 0-2 H /LPF Urine Mucus NEGATIVE /LPF Urine Culture Indicated NO My Orders Orders - JARED ODELL APRN Ua Culture If Indicated (10/14/19 12:12) Cbc With Automated Diff (10/14/19 12:12) Comprehensive Metabolic Panel (10/14/19 12:12) Humerus, Right, 2 Views (10/14/19 12:12) Forearm, Right, 2 Views (10/14/19 12:12) Ct Head/Cervical Spine Wo (10/14/19 12:12) Ct Lumbar Spine Wo (10/14/19 12:12) Acetaminophen Tablet (Tylenol Tablet) (10/14/19 12:45) Ibuprofen Tablet (Motrin Tablet) (10/14/19 12:45) Ibuprofen Tablet (Motrin Tablet) (10/14/19 12:37) Wrist, Right, 3 Views Or More (10/14/19 13:18) Oxycodone/Apap 5/325mg Tablet (Percocet (10/14/19 14:15) Medications Given in ED Current Medications Medications Dose Ordered Sig/Ana María Route Start Time Stop Time Status Last Admin Dose Admin Acetaminophen 1,000 mg ONCE ONCE PO 10/14/19 12:45 12/25/19 12:46 DC 10/14/19 12:42 1,000 MG Ibuprofen 800 mg ONCE ONCE PO 10/14/19 12:45 10/14/19 12:46 DC 10/14/19 12:42 800 MG Oxycodone/ Acetaminophen 1 tab ONCE ONCE PO 10/14/19 14:15 10/14/19 14:16 DC 10/14/19 14:18 1 TAB Vital Signs/I&O 10/14/19 12:08 Temp 36.4 Pulse 98 Resp 18 B/P (MAP) 125/76 (92) Pulse Ox 96 O2 Delivery Room Air Diagnostic Imaging Diagonstic Imaging: Xray Comments NAME: KEO AGUIRRE MED REC#: [id number] PT STATUS: REG ER : 1950 PHYSICIAN: JARED ODELL APRN ADMIT DATE: 10/14/19/ER Draft Date of Exam:10/14/19 CT LUMBAR SPINE WO PROCEDURE: CT lumbar spine without contrast. TECHNIQUE: Multiple contiguous axial images were obtained through the lumbar spine without the use of intravenous contrast. Sagittal and coronal reformations were then performed. Auto Exposure Controls were utilized during the CT exam to meet ALARA standards for radiation dose reduction. INDICATION: Fall with low back pain. COMPARISON: None. DISCUSSION: Moderate degenerative disease is noted within the bilateral sacroiliac joints. Advanced facet arthropathy is noted diffusely throughout the lumbar spine. There is grade 1 anterolisthesis of L5 on S1 due to advanced facet arthropathy. No pars defect identified. No compression fracture. Advanced degenerative disc disease at L5-S1. Moderate degenerative disc disease otherwise throughout the lumbar spine. The paraspinal soft tissues are unremarkable. Extensive atherosclerotic plaque is noted throughout the abdominal aorta which is otherwise normal in caliber. IMPRESSION: 1. Advanced degenerative disease noted within the lumbar spine with malalignment as described, chronic. No acute fracture identified. Dictated on workstation # [id number] Dict: 10/14/19 1243 Trans: 10/14/19 1248 [id number] Interpreted by: JAVIER DIXON MD Electronically signed by: NAME: KEO AGUIRRE MED REC#: [id number] PT STATUS: REG ER : 1950 PHYSICIAN: JARED ODELL [employer]ER ADMIT DATE: 10/14/19/ER Signed Date of Exam:10/14/19 CT HEAD/CERVICAL SPINE WO PROCEDURE: CT head and CT cervical spine without contrast. TECHNIQUE: Multiple contiguous axial images were obtained through the brain and cervical spine without the use of intravenous contrast. Sagittal and coronal reformations through the cervical spine were then performed. Auto Exposure Controls were utilized during the CT exam to meet ALARA standards for radiation dose reduction. INDICATION: Fall. Headache and neck pain. Scalp contusion. COMPARISON: None. FINDINGS: CT head: The ventricles and cortical sulci are age-appropriate. There is no midline shift or mass-effect. No acute intracranial hemorrhage is seen. There is no CT evidence of acute territorial ischemia. No focal masses or collections are present. The calvarium is intact. The visualized paranasal sinuses are clear. CT cervical spine: No acute fracture or dislocation is seen in the cervical spine. No focal osseous lesions. There is exaggerated lordosis of the cervical spine. Vertebral body heights are well-maintained. The craniocervical junction is well-maintained. Mild degenerative changes are seen in the cervical spine with disc osteophyte complexes and uncovertebral arthropathy. Soft tissues of the neck are unremarkable. IMPRESSION: 1. No hemorrhage or focal intra-axial mass. No CT evidence of large acute territorial ischemia. 2. No acute fracture or dislocation in the cervical spine. Dictated by: Dictated on workstation # [id number] Dict: 10/14/19 1243 Trans: 10/14/19 1245 [facility] [id number] Interpreted by: TEODORA BECKER DO Electronically signed by: TEODORA BECKER DO 10/14/19 1245 Departure Communication (Admissions) Patient placed in a sugar tong style splint by me using 3 inch Ortho-Glass. She can follow up outpatient with orthopedics in the upcoming weeks. Discussed more with the son, he states that he found her nearly closed on the living room floor, she typically lives at home independently and requires no assistance. On the way to the hospital she was unaware that today was [place] according to him. However at this time she is sitting up in her chair and she knows she is at the hospital and that today is [place]. She is taking oxycodone 10/325 every 6 hours. I would suspect that this is a large contributing factor to her delirium. 1433-I spoke with Dr. Coley, agrees that the delirium is not likely to improve in a foreign environment such as the hospital. We will see if the son can stay with her, she could follow-up with [facility] this week in the next 48 hours for recheck. We'll taper her dose from oxycodone Impression Primary Impression: Radius and ulna distal fracture Qualified Codes: S52.501A - Unspecified fracture of the lower end of right radius, initial encounter for closed fracture; S52.601A - Unspecified fracture of lower end of right ulna, initial encounter for closed fracture Additional Impression: Delirium Disposition: 01 HOME, SELF-CARE Condition: Improved Departure-Patient Inst. Decision time for Depature: 13:13 Referrals: [facility] (PCP) Primary Care Physician BARRETT VILLANUEVA APRN (Family) Primary Care Physician Patient Instructions: Radius Fracture (DC), Delirium (Confusion) (DC) Add. Discharge Instructions: 1. Reduce your oxycodone dose from 10/325 times q6 hours to one half tablet every 6 hours. Leave the splint on at all times. Call [facility] tomorrow and tell them Dr Coley wanted you seen by whoever was available tomorrow. [phone]. JARED ODELL APRN Oct 14, 2019 12:15
[2019-10-14] MEDS ORDERED: IBUPROFEN 600 MG (MOTRIN) TAB PO ONE (12:37)
[2019-10-14] MEDS ORDERED: IBUPROFEN 800 MG (MOTRIN) TAB PO ONE (12:45)
[2019-10-14] MEDS ORDERED: ACETAMINOPHEN 500 MG TAB (TYLENOL) PO ONE (12:45)
--- NOTE | 2019-10-14 12:46 | Diagnostic Imaging Report ---
PROCEDURE: CT head and CT cervical spine without contrast. TECHNIQUE: Multiple contiguous axial images were obtained through the brain and cervical spine without the use of intravenous contrast. Sagittal and coronal reformations through the cervical spine were then performed. Auto Exposure Controls were utilized during the CT exam to meet ALARA standards for radiation dose reduction. INDICATION: Fall. Headache and neck pain. Scalp contusion. COMPARISON: None. FINDINGS: CT head: The ventricles and cortical sulci are age-appropriate. There is no midline shift or mass-effect. No acute intracranial hemorrhage is seen. There is no CT evidence of acute territorial ischemia. No focal masses or collections are present. The calvarium is intact. The visualized paranasal sinuses are clear. CT cervical spine: No acute fracture or dislocation is seen in the cervical spine. No focal osseous lesions. There is exaggerated lordosis of the cervical spine. Vertebral body heights are well-maintained. The craniocervical junction is well-maintained. Mild degenerative changes are seen in the cervical spine with disc osteophyte complexes and uncovertebral arthropathy. Soft tissues of the neck are unremarkable. IMPRESSION: 1. No hemorrhage or focal intra-axial mass. No CT evidence of large acute territorial ischemia. 2. No acute fracture or dislocation in the cervical spine. Dictated by: Dictated on workstation # [id number]
--- NOTE | 2019-10-14 12:48 | Diagnostic Imaging Report ---
PROCEDURE: CT lumbar spine without contrast. TECHNIQUE: Multiple contiguous axial images were obtained through the lumbar spine without the use of intravenous contrast. Sagittal and coronal reformations were then performed. Auto Exposure Controls were utilized during the CT exam to meet ALARA standards for radiation dose reduction. INDICATION: Fall with low back pain. COMPARISON: None. DISCUSSION: Moderate degenerative disease is noted within the bilateral sacroiliac joints. Advanced facet arthropathy is noted diffusely throughout the lumbar spine. There is grade 1 anterolisthesis of L5 on S1 due to advanced facet arthropathy. No pars defect identified. No compression fracture. Advanced degenerative disc disease at L5-S1. Moderate degenerative disc disease otherwise throughout the lumbar spine. The paraspinal soft tissues are unremarkable. Extensive atherosclerotic plaque is noted throughout the abdominal aorta which is otherwise normal in caliber. IMPRESSION: 1. Advanced degenerative disease noted within the lumbar spine with malalignment as described, chronic. No acute fracture identified. Dictated by: Dictated on workstation # [id number]
--- NOTE | 2019-10-14 13:25 | Diagnostic Imaging Report ---
CLINICAL HISTORY: Fall. Right arm pain. COMPARISON: 02/26/2019 TECHNIQUE: Two views of the right forearm. FINDINGS: Comminuted fracture is seen involving the distal right radius with intra-articular extension. There is also fracture of the right ulnar styloid. Soft tissue edema is noted in the right wrist. IMPRESSION: 1. Comminuted fracture involving the distal right radius with intra-articular extension. Consider dedicated right wrist radiographs to further evaluate. 2. Fracture of the right ulnar styloid. Dictated by: Dictated on workstation # [id number]
--- NOTE | 2019-10-14 13:27 | Diagnostic Imaging Report ---
CLINICAL HISTORY: Fall. Right arm pain. COMPARISON: None. TECHNIQUE: Two views of the right humerus. FINDINGS: No acute displaced fracture or dislocation is seen in the right humerus. Reverse right total shoulder arthroplasty changes are noted. No periprosthetic fracture. The soft tissues of the right arm are unremarkable. IMPRESSION: 1. No acute displaced fracture or dislocation in the right humerus. Dictated by: Dictated on workstation # [id number]
[2019-10-14 13:30] LABS: BASOPHILS % (AUTO) 0 % (0-10); EOSINOPHILS # (AUTO) 0.2 10^3/uL (0.0-0.3); EOSINOPHILS % (AUTO) 1 % (0-10); HEMATOCRIT 39 % (35-52); HEMOGLOBIN 12.5 G/DL (11.5-16.0); LYMPHOCYTES # (AUTO) 1.9 X 10^3 (1.0-4.0); LYMPHOCYTES % (AUTO) 14 % (12-44); MEAN CORPUSCULAR HEMOGLOBIN 29 PG (25-34); MEAN CORPUSCULAR HGB CONC 32 G/DL (32-36); MEAN CORPUSCULAR VOLUME 88 FL (80-99); MEAN PLATELET VOLUME 9.3 FL (7.4-10.4); MONOCYTES # (AUTO) 1.3 X 10^3 (0.0-1.0); MONOCYTES % (AUTO) 10 % (0-12); NEUTROPHILS % (AUTO) 75 % (42-75); PLATELET COUNT 290 10^3/uL (130-400); RED CELL DISTRIBUTION WIDTH 14.2 % (10.0-14.5); WHITE BLOOD COUNT 13.4 10^3/uL (4.3-11.0)
[2019-10-14 13:58] LABS: ALBUMIN 4.2 GM/DL (3.2-4.5); BILIRUBIN,TOTAL 0.4 MG/DL (0.1-1.0); CALCIUM 9.2 MG/DL (8.5-10.1); CREATININE SERUM 1.52 MG/DL (0.60-1.30); TOTAL PROTEIN 7.2 GM/DL (6.4-8.2)
[2019-10-14 14:02] LABS: BILIRUBIN,URINE NEGATIVE (NEGATIVE); CLARITY,URINE CLEAR; COLOR,URINE YELLOW; GLUCOSE, URINE (UA) NEGATIVE (NEGATIVE); KETONES,URINE NEGATIVE (NEGATIVE); LEUKOCYTE ESTERASE ,URINE NEGATIVE (NEGATIVE); NITRITE,URINE NEGATIVE (NEGATIVE); PH,URINE 5.5 (5-9); PROTEIN,URINE TRACE (NEGATIVE)
--- NOTE | 2019-10-14 14:08 | Diagnostic Imaging Report ---
INDICATION: Follow-up right wrist fracture. COMPARISON: Right forearm, same date. DISCUSSION: Three views of the right wrist were obtained. Bones are diffusely osteopenic. There is an intra-articular nondisplaced comminuted distal right radial fracture. There is an additional nondisplaced comminuted ulnar styloid fracture. Dokv-xs-ucbrogaf degenerative disease is noted diffusely. No dislocation. Marked soft tissue swelling is present. IMPRESSION: 1. Distal right radial and ulnar fractures, as described. Dictated by: Dictated on workstation # [id number]
[2019-10-14 14:09] LABS: BACTERIA,URINE TRACE /HPF; HYALINE CASTS, URINE 0-2 /LPF; RBC,URINE RARE /HPF
[2019-10-14] MEDS ORDERED: oxyCODONE/APAP 5/325MG (PERCOCET 5) TABLET PO ONE (14:15)
[2019-10-14 14:48] VITALS: BP 139/64
== END 2019-10-14 14:48 | disposition home or self-care (01) ==
LOC: EDUNIT# 12:04 → ER 12:06
DX: S52.501A Unspecified fracture of the lower end of right radius, initial encounter for closed fracture (principal); S52.601A Unspecified fracture of lower end of right ulna, initial encounter for closed fracture; R41.0 Disorientation, unspecified; I10 Essential (primary) hypertension; E11.40 Type 2 diabetes mellitus with diabetic neuropathy, unspecified; I25.2 Old myocardial infarction; E78.00 Pure hypercholesterolemia, unspecified; G43.909 Migraine, unspecified, not intractable, without status migrainosus; K21.9 Gastro-esophageal reflux disease without esophagitis; D50.9 Iron deficiency anemia, unspecified; B15.9 Hepatitis A without hepatic coma; Z85.3 Personal history of malignant neoplasm of breast; Z88.8 Allergy status to other drugs, medicaments and biological substances; Z88.0 Allergy status to penicillin; Z88.1 Allergy status to other antibiotic agents; Z88.6 Allergy status to analgesic agent; Z79.82 Long term (current) use of aspirin; Z79.84 Long term (current) use of oral hypoglycemic drugs; Z90.710 Acquired absence of both cervix and uterus; Z96.652 Presence of left artificial knee joint; Z82.49 Family history of ischemic heart disease and other diseases of the circulatory system
CPT/HCPCS: 29125; 36415; 70450; 72125; 72131; 73060; 73090; 73110; 80053; 81000; 85025

== ENCOUNTER 2019-10-30 13:18 | Outpatient (RCR) | payer MEDICARE ==
[~2019-10-30 13:18] MED LIST changes: +ACHYD1T PO; +DARBEPOETIN 40 MCG/ML (ARANESP) 1 ML VIAL SC SCH; -HYDR-3820 PO; -METO-395 PO; +MTP100TCR PO; -ROPI0.5T2 PO; +ROPI0.5T4 PO; +ROPI1TAB PO; -ROPI1TAB2 PO; -SENN-148 PO; +SNN187T PO; -TRAM50TA2 PO; +TRM50T PO
[2019-10-30 13:30] LABS: BASOPHILS # (AUTO) 0.1 10^3/uL (0.0-0.1); BASOPHILS % (AUTO) 1 % (0-10); EOSINOPHILS # (AUTO) 0.2 10^3/uL (0.0-0.3); EOSINOPHILS % (AUTO) 3 % (0-10); HEMATOCRIT 38 % (35-52); HEMOGLOBIN 12.2 G/DL (11.5-16.0); LYMPHOCYTES # (AUTO) 2.4 X 10^3 (1.0-4.0); LYMPHOCYTES % (AUTO) 30 % (12-44); MEAN CORPUSCULAR HEMOGLOBIN 29 PG (25-34); MEAN CORPUSCULAR HGB CONC 32 G/DL (32-36); MEAN CORPUSCULAR VOLUME 90 FL (80-99); MEAN PLATELET VOLUME 9.4 FL (7.4-10.4); MONOCYTES # (AUTO) 0.8 X 10^3 (0.0-1.0); MONOCYTES % (AUTO) 10 % (0-12); NEUTROPHILS # (AUTO) 4.6 X 10^3 (1.8-7.8); NEUTROPHILS % (AUTO) 58 % (42-75); PLATELET COUNT 304 10^3/uL (130-400); RED CELL DISTRIBUTION WIDTH 14.1 % (10.0-14.5)
== END 2020-01-28 | disposition home or self-care (01) ==
LOC: ONC 13:18
PROVIDERS: ATTEND Internal Medicine Hematology & Oncology
DX: I82.409 Acute embolism and thrombosis of unspecified deep veins of unspecified lower extremity (principal); Z85.3 Personal history of malignant neoplasm of breast
CPT/HCPCS: 85025; 99213

== ENCOUNTER → 2019-11-18 | Outpatient (CLI) | payer MEDICARE ==
[~2019-11-18] MED LIST changes: -ACHYD1T PO; -DARBEPOETIN 40 MCG/ML (ARANESP) 1 ML VIAL SC SCH; +HYDR-3820 PO; +ROPI0.5T2 PO; -ROPI0.5T4 PO; -ROPI1TAB PO; +ROPI1TAB2 PO
[2019-11-18 11:10] LABS: BASOPHILS % (AUTO) 0 % (0-10); EOSINOPHILS # (AUTO) 0.2 10^3/uL (0.0-0.3); EOSINOPHILS % (AUTO) 2 % (0-10); HEMATOCRIT 40 % (35-52); LYMPHOCYTES # (AUTO) 1.8 X 10^3 (1.0-4.0); LYMPHOCYTES % (AUTO) 17 % (12-44); MEAN CORPUSCULAR HEMOGLOBIN 29 PG (25-34); MEAN CORPUSCULAR HGB CONC 32 G/DL (32-36); MEAN CORPUSCULAR VOLUME 90 FL (80-99); MONOCYTES # (AUTO) 0.8 X 10^3 (0.0-1.0); MONOCYTES % (AUTO) 8 % (0-12); NEUTROPHILS # (AUTO) 7.7 X 10^3 (1.8-7.8); NEUTROPHILS % (AUTO) 73 % (42-75); PLATELET COUNT 264 10^3/uL (130-400); RED CELL DISTRIBUTION WIDTH 13.7 % (10.0-14.5); WHITE BLOOD COUNT 10.5 10^3/uL (4.3-11.0)
[2019-11-18 11:32] LABS: ALBUMIN 4.1 GM/DL (3.2-4.5); BILIRUBIN,TOTAL 0.3 MG/DL (0.1-1.0); CALCIUM 8.9 MG/DL (8.5-10.1); CREATININE SERUM 1.24 MG/DL (0.60-1.30); POTASSIUM 4.2 MMOL/L (3.6-5.0); TOTAL PROTEIN 7.2 GM/DL (6.4-8.2)
== END ==
LOC: LAB 10:52
PROVIDERS: ATTEND Nurse Practitioner Primary Care
DX: I10 Essential (primary) hypertension (principal); E11.22 Type 2 diabetes mellitus with diabetic chronic kidney disease; G43.109 Migraine with aura, not intractable, without status migrainosus; R53.1 Weakness; G89.4 Chronic pain syndrome
CPT/HCPCS: 36415; 80053; 84443; 85025

== ENCOUNTER 2019-12-30 10:14 | Outpatient (RCR) | payer MEDICARE ==
[2019-11-04] MEDS: HEParin (CENTRAL IV FLUSH) 500 UNIT/5 ML SYR IV SCH (11:17)
[2019-11-04 11:20] VITALS: BP 149/88
[2019-12-02] MEDS: HEParin (CENTRAL IV FLUSH) 500 UNIT/5 ML SYR IV SCH (09:45)
[2019-12-02 09:50] VITALS: BP 139/88
[~2019-12-30 10:14] MED LIST changes: +ACHYD1T PO; +HEParin (CENTRAL IV FLUSH) 500 UNIT/5 ML SYR IV ONE; +HEParin (CENTRAL IV FLUSH) 500 UNIT/5 ML SYR ONE; -HYDR-3820 PO; -ROPI0.5T2 PO; +ROPI0.5T4 PO; +ROPI1TAB PO; -ROPI1TAB2 PO
[2019-12-30 10:25] VITALS: BP 134/82
== END 2020-02-02 | disposition home or self-care (01) ==
LOC: SDC 10:14
PROVIDERS: ATTEND Nurse Practitioner Primary Care
DX: Z45.2 Encounter for adjustment and management of vascular access device (principal)
CPT/HCPCS: 96523

== ENCOUNTER 2020-01-01 11:14 | Outpatient (RCR) | payer MEDICARE ==
[~2020-01-01 11:14] MED LIST changes: -HEParin (CENTRAL IV FLUSH) 500 UNIT/5 ML SYR IV ONE; -HEParin (CENTRAL IV FLUSH) 500 UNIT/5 ML SYR ONE
== END 2020-02-17 | disposition home or self-care (01) ==
PROVIDERS: ATTEND Nurse Practitioner Family
DX: Z47.1 Aftercare following joint replacement surgery (principal); Z96.611 Presence of right artificial shoulder joint; K21.9 Gastro-esophageal reflux disease without esophagitis; I10 Essential (primary) hypertension; E11.9 Type 2 diabetes mellitus without complications

== ENCOUNTER → 2020-01-27 | Outpatient (CLI) | payer MEDICARE ==
[2020-01-27 11:49] LABS: BILIRUBIN,URINE NEGATIVE (NEGATIVE); CLARITY,URINE CLEAR; COLOR,URINE YELLOW; GLUCOSE, URINE (UA) NEGATIVE (NEGATIVE); KETONES,URINE NEGATIVE (NEGATIVE); LEUKOCYTE ESTERASE ,URINE NEGATIVE (NEGATIVE); NITRITE,URINE NEGATIVE (NEGATIVE); PROTEIN,URINE NEGATIVE (NEGATIVE)
[2020-01-27 11:50] VITALS: BP 163/89
[2020-01-27 11:51] LABS: HEMOGLOBIN 13.5 G/DL (11.5-16.0); MEAN PLATELET VOLUME 9.5 FL (7.4-10.4); RED CELL DISTRIBUTION WIDTH 12.9 % (10.0-14.5); WHITE BLOOD COUNT 7.7 10^3/uL (4.3-11.0)
[2020-01-27 12:00] LABS: BACTERIA,URINE NEGATIVE /HPF; SQUAMOUS EPITHELIAL CELL,UR RARE /HPF
[2020-01-27 12:11] LABS: ALBUMIN 3.9 GM/DL (3.2-4.5)
[2020-01-27 12:12] LABS: POTASSIUM 4.2 MMOL/L (3.6-5.0)
[2020-01-27 12:13] LABS: CALCIUM 8.6 MG/DL (8.5-10.1)
[2020-01-27 12:17] LABS: CREATININE SERUM 1.15 MG/DL (0.60-1.30); PHOSPHORUS 3.9 MG/DL (2.3-4.7)
[2020-01-27 12:20] LABS: URIC ACID 5.6 MG/DL (2.6-7.2)
== END ==
LOC: SDC 11:21
PROVIDERS: ATTEND Nurse Practitioner
DX: I12.9 Hypertensive chronic kidney disease with stage 1 through stage 4 chronic kidney disease, or unspecified chronic kidney disease (principal); E11.22 Type 2 diabetes mellitus with diabetic chronic kidney disease; N18.3 Chronic kidney disease, stage 3 (moderate); I25.10 Atherosclerotic heart disease of native coronary artery without angina pectoris; R60.9 Edema, unspecified; E78.5 Hyperlipidemia, unspecified; M54.5 Low back pain; K22.5 Diverticulum of esophagus, acquired; R80.9 Proteinuria, unspecified
CPT/HCPCS: 36415; 36591; 80069; 81000; 82306; 83970; 84550; 85027

== ENCOUNTER → 2020-02-08 | Outpatient (CLI) | payer MEDICARE | LOC: EDSTATUS 16:03 → ONC 16:04 | PROVIDERS: ATTEND Internal Medicine Hematology & Oncology | DX: I82.409 Acute embolism and thrombosis of unspecified deep veins of unspecified lower extremity (principal); Z85.3 Personal history of malignant neoplasm of breast | CPT/HCPCS: 82728; 83540; 99213 ==

== ENCOUNTER → 2020-03-02 | Outpatient (CLI) | payer MEDICARE | LOC: RAD 08:19 | PROVIDERS: ATTEND Nurse Practitioner Family | DX: M25.511 Pain in right shoulder (principal); Z96.611 Presence of right artificial shoulder joint | CPT/HCPCS: 73200 ==

== ENCOUNTER → 2020-03-17 | Outpatient (CLI) | payer MEDICARE | LOC: LAB 10:28 | PROVIDERS: ATTEND Internal Medicine Rheumatology | DX: M19.90 Unspecified osteoarthritis, unspecified site (principal) | CPT/HCPCS: 36415; 85652; 86141 ==

== ENCOUNTER 2020-04-26 11:50 | Outpatient (RCR) | payer MEDICARE ==
[2020-03-02 09:20] VITALS: BP 150/74
[2020-03-02] MEDS: HEParin (CENTRAL IV FLUSH) 500 UNIT/5 ML SYR IV PRN (09:55)
[2020-03-30 13:45] VITALS: BP 148/87
[2020-03-30] MEDS: HEParin (CENTRAL IV FLUSH) 500 UNIT/5 ML SYR IV PRN (14:05)
[~2020-04-26] VITALS: Ht 160 cm; Wt 81.8 kg
[~2020-04-26 11:50] MED LIST changes: +HEParin (CENTRAL IV FLUSH) 500 UNIT/5 ML SYR IV ONE; +HEParin (CENTRAL IV FLUSH) 500 UNIT/5 ML SYR ONE
[2020-04-26] MEDS: HEParin (CENTRAL IV FLUSH) 500 UNIT/5 ML SYR IV PRN (12:00)
[2020-04-26 12:03] VITALS: BP 157/89
== END 2020-05-31 | disposition home or self-care (01) ==
LOC: SDC 11:50
PROVIDERS: ATTEND Nurse Practitioner Primary Care
DX: Z45.2 Encounter for adjustment and management of vascular access device (principal)
CPT/HCPCS: 96523

== ENCOUNTER 2020-06-30 16:40 | Emergency (ER) | payer MEDICARE ==
[~2020-06-30] VITALS: Ht 64 cm; Wt 81.6 kg
[~2020-06-30 16:40] MED LIST changes: +ASPI-1238 PO; -ASPI-983 PO; -HEParin (CENTRAL IV FLUSH) 500 UNIT/5 ML SYR IV ONE; -HEParin (CENTRAL IV FLUSH) 500 UNIT/5 ML SYR ONE
[2020-06-30] MEDS ORDERED: HYDROcodone/APAP 5 MG/325 MG (LORTAB) TAB PO ONE (17:15)
--- NOTE | 2020-06-30 17:18 | ED General ---
General Stated Complaint: FALL/R ANKLE INJ & SWELLING Source of Information: Patient Exam Limitations: No Limitations History of Present Illness Date Seen by Provider: Jun 30, 2020 Time Seen by Provider: 17:15 Initial Comments To ER by private vehicle from home with reports of right lateral ankle pain and swelling since yesterday. She has been able to bear weight on it since the injury. However is quite painful. Denies hitting her head but does have a migraine headache as well as neck pain laterally worse with movement which she believes is from the jerking of the fall. Timing/Duration: 1-2 Days Severity: Moderate Associated Systoms: Denies Symptoms Allergies and Home Medications Allergies Coded Allergies: clopidogrel (Verified Allergy, Severe, BLOOD CLOTS, 11/27/18) Penicillins (Verified Allergy, Mild, RASH, 11/27/18) carisoprodol (Verified Allergy, Mild, RASH, 11/27/18) cephalexin (Verified Allergy, Mild, RASH, 11/27/18) ketorolac (Verified Allergy, Mild, RASH, 11/27/18) prochlorperazine (Verified Allergy, Mild, RASH, 11/27/18) Carbamates (Verified Allergy, Unknown, Rash, 05/28/19) Home Medications Amlodipine Besylate 5 Mg Tablet, 5 MG PO DAILY, (Reported) Aspirin 81 Mg Tablet.dr, 81 MG PO DAILY Prescribed by: OLIVE ISAAC on 09/06/19 1527 Atorvastatin Calcium 40 Mg Tablet, 40 MG PO HS, (Reported) Baclofen 10 Mg Tablet, 10 MG PO TID PRN for MUSCLE SPASMS, (Reported) Brimonidine Tartrate 5 Ml Btl, 1 DROP OU TID, (Reported) 0.15% Carboxymethylcellulos/Glycerin 10 Ml Drops.gel, 1 DROP OD TID, (Reported) USE RIGHT BEFORE BRIMONIDINE EYE DROPS Cholecalciferol (Vitamin D3) 1,000 Unit Capsule, 1,000 UNIT PO DAILY, (Reported) Codeine/Butalbital/ASA/Caffein 1 Each Capsule, 1 CAP PO TID PRN for MIGRAINE, (R eported) Duloxetine HCl 30 Mg Capsule.dr, 30 MG PO DAILY, (Reported) TAKE ALONG WITH 60MG CAP FOR A TOTAL DAILY DOSE OF 90MG Duloxetine HCl 60 Mg Capsule.dr, 60 MG PO DAILY, (Reported) TAKES ALONG WITH 30MG CAPSULE FOR A TOTAL DAILY DOSE OF 90MG Folic Acid 1 Mg Tablet, 1 MG PO DAILY, (Reported) Furosemide 40 Mg Tablet, 40 MG PO DAILY, (Reported) Gabapentin 300 Mg Capsule, 300 MG PO TID, (Reported) LAST FILLED #90 07-09-19 Glipizide 5 Mg Tablet, 2.5 MG PO DAILY, (Reported) TAKES 1/2 (5MG) TABLET Hydrocodone Bit/Acetaminophen 1 Each Tablet, 1 EA PO Q4H PRN for PAIN-MODERATE (5-7) Prescribed by: OLIVE ISAAC on 09/06/19 1527 Hydroxychloroquine Sulfate 200 Mg Tablet, 200 MG PO BID, (Reported) Metoprolol Succinate 100 Mg Tab.er.24h, 100 MG PO DAILY, (Reported) Ondansetron 4 Mg Tab.rapdis, 4 MG PO Q4H PRN for NAUSEA/VOMITING-1ST LINE, (Reported) Oxycodone HCl 15 Mg Tab.er.12h, 15 MG PO Q12HR Prescribed by: OLIVE ISAAC on 09/06/191526 Pantoprazole Sodium 40 Mg Tablet.dr, 40 MG PO DAILY, (Reported) Ropinirole HCl 1 Mg Tablet, 1 MG PO DAILY, (Reported) Ropinirole HCl 1 Mg Tablet, 2 MG PO HS, (Reported) TAKES 2 (1MG) TABLETS Topiramate 25 Mg Tablet, 25 MG PO HS, (Reported) Topiramate 50 Mg Tablet, 75 MG PO DAILY, (Reported) TAKE 1 & 1/2 OF 50MG TAB Tramadol HCl 50 Mg Tablet, 50-100 MG PO QID PRN for PAIN-MODERATE (5-7), (Reported) DOES NOT TAKE IF TAKING OTHER PRESCRIPTION PAIN MEDICATION Patient Home Medication List Home Medication List Reviewed: Yes Review of Systems Review of Systems Constitutional: see HPI EENTM: see HPI Respiratory: no symptoms reported Cardiovascular: no symptoms reported Genitourinary: no symptoms reported Musculoskeletal: no symptoms reported Skin: no symptoms reported Psychiatric/Neurological: See HPI, Headache Hematologic/Lymphatic: No Symptoms Reported Immunological/Allergic: no symptoms reported Past Ucnmyys-Marsfa-Tqulwx Hx Patient Social History 2nd Hand Smoke Exposure: No Recent Foreign Travel: No Contact w/Someone Who Travel: No Recent Hopitalizations: Yes Immunizations Up To Date Date of Pneumonia Vaccine: Jul 29, 2017 Date of Influenza Vaccine: Jun 30, 2019 Seasonal Allergies Seasonal Allergies: No Past Medical History Surgeries: Yes (R CTR, espohageal ligation x2, Hernia, L RCR, L TKR, laparotomy, MRSA infec) Hysterectomy, Joint Replacement, Orthopedic, Thyroidectomy Respiratory: No Currently Using CPAP: No Currently Using BIPAP: No Cardiac: Yes (HX HEART CATH-STENT) Heart Attack, High Cholesterol, Hypertension Neurological: Yes Headaches /Migraines, Neuropathy Sexually Transmitted Disease: No HIV/AIDS: No Genitourinary: Yes (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, STAGE 2-kidneY DISEASE ) Bladder Infection, Renal Failure Gastrointestinal: Yes (HX GI BLEED, zenkers syndrome-chokes easily, hx hep A) Gastroesophageal Reflux, Hepatitis Musculoskeletal: Yes (OSTEOARTHRITIS, BULGING DISCS) Arthritis, Chronic Back Pain Endocrine: Yes (partial thyroidectomy) Diabetes, Non-Insulin dep HEENT: Yes (GLASSES, UPPER DENTURES) Loss of Vision: Bilateral Cancer: Yes Breast Did You Recieve Any Treatments: Yes What Type of Treatment Did You: Radiation, Surgical Intervention Psychosocial: No Integumentary: No Blood Disorders: Yes (IRON DEFFICIENCY ANEMIA-GETS IRON INFUSIONS) Adverse Reaction/Blood Tranf: No (HAS HAD BLOOD WITH NO REACTION) Family Medical History Hypertension G8 BROTHER Not obtainable due to adoption 19 FATHER No Pertinent Family Hx Physical Exam Vital Signs Vital Signs - First Documented 06/30/20 17:09 Temp 36.9 Pulse 104 Resp 17 B/P (MAP) 103/76 (85) Pulse Ox 95 Capillary Refill : Height, Weight, BMI Height: 5'4.00" Weight: 216lbs. 4.2oz. 98.131663fd; 30.00 BMI Method:Stated General Appearance: No Apparent Distress, WD/WN Eyes: Bilateral Eye Normal Inspection, Bilateral Eye PERRL, Bilateral Eye EOMI HEENT: PERRL/EOMI, TMs Normal, Normal ENT Inspection Neck: Full Range of Motion, Normal Inspection, Tender Lateral Respiratory: No Accessory Muscle Use, No Respiratory Distress Extremity: Normal Capillary Refill, Normal Inspection, Other (swelling lateral malleolus right. Strong dorsalis pedis pulse is palpable. ) Neurologic/Psychiatric: Alert, Oriented x3 Skin: Normal Color, Warm/Dry Progress/Results/Core Measures Suspected Sepsis SIRS Temperature: Pulse: Respiratory Rate: Blood Pressure / Mean: Results/Orders My Orders Orders - ODELL,PETER J COLLISION REPAIR TECHNICIAN Hydrocodone/Apap 5/325 Tablet (Lortab 5 (06/30/20 17:15) Ct Head/Cervical Spine Wo (06/30/20 17:12) Ankle, Right, 3 Views (06/30/20 17:12) Medications Given in ED Current Medications Medications Dose Ordered Sig/Ana María Route Start Time Stop Time Status Last Admin Dose Admin Acetaminophen/ Hydrocodone Bitart 1 tab ONCE ONCE PO 06/30/20 17:15 06/30/20 17:16 DC 06/30/20 17:22 1 TAB Vital Signs/I&O 06/30/20 17:09 Temp 36.9 Pulse 104 Resp 17 B/P (MAP) 103/76 (85) Pulse Ox 95 Capillary Refill : Departure Communication (Admissions) NAME: KEO AGUIRRE MED REC#: [id number] PT STATUS: REG ER : 1950 PHYSICIAN: JARED ODELL APRN ADMIT DATE: 06/30/20/ER Draft Date of Exam:06/30/20 ANKLE, RIGHT, 3 VIEWS EXAM: Ankle, right, 3 views INDICATION: Right ankle pain. COMPARISON: Right foot radiographs 02/26/2019. FINDINGS: Linear lucency through the tip of the distal right fibula consistent with a small avulsion fracture. Soft tissue swelling about the right lateral malleolus. Calcaneal plantar and Achilles' heel spurs. IMPRESSION: Small avulsion fracture through the tip of the right distal fibula appears acute. Dictated on workstation # [id number] Dict: 06/30/201823 Trans: 06/30/2018[address] [facility] [id number] Interpreted by: GEORGES CALHOUN MD Electronically signed by: Impression Primary Impression: Ankle sprain Qualified Codes: S93.401A - Sprain of unspecified ligament of right ankle, initial encounter Disposition: 01 HOME, SELF-CARE Condition: Stable Departure-Patient Inst. Decision time for Depature: 18:26 Referrals: [facility] (PCP) Primary Care Physician NO,LOCAL PHYSICIAN (Family) Primary Care Physician Patient Instructions: Ankle Sprain Add. Discharge Instructions: . Return to Er for any concerns. Follow up with your doctor next week. Wear the ankle brace for the next week. Keep the foot elevated as much as possible. Use your ultram for pain. JARED ODELL COLLISION REPAIR TECHNICIAN Jun 30, 2020 17:18
--- NOTE | 2020-06-30 18:26 | Diagnostic Imaging Report ---
PROCEDURE: CT head and CT cervical spine without contrast. TECHNIQUE: Multiple contiguous axial images were obtained through the brain and cervical spine without the use of intravenous contrast. Sagittal and coronal reformations through the cervical spine were then performed. Auto Exposure Controls were utilized during the CT exam to meet ALARA standards for radiation dose reduction. INDICATION: Back pain. Neck pain. Fall. COMPARISON: CT head and cervical spine without contrast 10/14/2019. FINDINGS: CT head: No intracranial hemorrhage, mass effect, hydrocephalus or extra-axial fluid collection. No CT evidence of a territorial infarction. Moderate generalized cerebral and cerebellar parenchymal volume loss. Moderate leukoaraiosis. Intracranial vascular calcifications. Osseous structures are intact. Mild mucosal thickening in the left maxillary sinus. Mastoids are unremarkable. CT cervical spine: Normal alignment. Vertebral body heights are preserved. No fracture. Mild spondylotic changes. No evidence of high-grade spinal canal stenosis. Moderate atherosclerotic calcification. IMPRESSION: No acute intracranial or cervical spine CT finding. Dictated by: Dictated on workstation # [id number]
--- NOTE | 2020-06-30 18:28 | Diagnostic Imaging Report ---
EXAM: Ankle, right, 3 views INDICATION: Right ankle pain. COMPARISON: Right foot radiographs 02/26/2019. FINDINGS: Linear lucency through the tip of the distal right fibula consistent with a small avulsion fracture. Soft tissue swelling about the right lateral malleolus. Calcaneal plantar and Achilles' heel spurs. IMPRESSION: Small avulsion fracture through the tip of the right distal fibula appears acute. Dictated by: Dictated on workstation # [id number]
[2020-06-30 18:40] VITALS: BP 115/77
== END 2020-06-30 18:40 | disposition home or self-care (01) ==
LOC: EDUNIT# 16:40 → ER 16:42
DX: S93.401A Sprain of unspecified ligament of right ankle, initial encounter (principal); E11.22 Type 2 diabetes mellitus with diabetic chronic kidney disease; I12.9 Hypertensive chronic kidney disease with stage 1 through stage 4 chronic kidney disease, or unspecified chronic kidney disease; N18.2 Chronic kidney disease, stage 2 (mild); E11.40 Type 2 diabetes mellitus with diabetic neuropathy, unspecified; I25.2 Old myocardial infarction; E78.00 Pure hypercholesterolemia, unspecified; G43.909 Migraine, unspecified, not intractable, without status migrainosus; K21.9 Gastro-esophageal reflux disease without esophagitis; G89.29 Other chronic pain; M54.9 Dorsalgia, unspecified; D50.9 Iron deficiency anemia, unspecified; Z88.0 Allergy status to penicillin; Z79.891 Long term (current) use of opiate analgesic; Z95.5 Presence of coronary angioplasty implant and graft; Z88.1 Allergy status to other antibiotic agents; Z88.8 Allergy status to other drugs, medicaments and biological substances; Z85.3 Personal history of malignant neoplasm of breast; Z79.82 Long term (current) use of aspirin; Z96.652 Presence of left artificial knee joint; W19.XXXA Unspecified fall, initial encounter
CPT/HCPCS: 70450; 72125; 73610

== ENCOUNTER 2020-08-12 11:32 | Outpatient (RCR) | payer MEDICARE ==
[2020-06-01] MEDS: HEParin (CENTRAL IV FLUSH) 500 UNIT/5 ML SYR IV SCH (11:34)
[2020-06-01 11:43] VITALS: BP 159/89
[2020-07-08 12:20] VITALS: BP 159/89
[2020-07-08] MEDS: HEParin (CENTRAL IV FLUSH) 500 UNIT/5 ML SYR IV SCH (12:30)
[~2020-08-12] VITALS: Ht 162.6 cm
[~2020-08-12 11:32] MED LIST changes: +AMLO-250 PO; +AMLO-251 PO; -AMLO10TA7 PO; -AMLO5TAB9 PO; +HEParin (CENTRAL IV FLUSH) 500 UNIT/5 ML SYR ONE; -PANT40TA3 PO; +PANT40TA52 PO
[2020-08-12 11:41] VITALS: BP 166/91
[2020-08-12] MEDS: HEParin (CENTRAL IV FLUSH) 500 UNIT/5 ML SYR IV SCH (11:46)
== END 2020-08-30 | disposition home or self-care (01) ==
LOC: SDC 11:32
PROVIDERS: ATTEND Nurse Practitioner Primary Care
DX: Z45.2 Encounter for adjustment and management of vascular access device (principal)
CPT/HCPCS: 96523

== ENCOUNTER 2020-09-13 11:55 | Outpatient (RCR) | payer MEDICARE ==
[~2020-09-13 11:55] MED LIST changes: +BUTA-235 PO; -BUTA1TAB9 PO; -FOLI1TAB24 PO; +FOLI1TAB33 PO; -HEParin (CENTRAL IV FLUSH) 500 UNIT/5 ML SYR ONE; -OXYC-471 PO; +OXYC1TAB11 PO
[2020-09-13] MEDS ORDERED: HEParin (CENTRAL IV FLUSH) 500 UNIT/5 ML SYR ONE (12:07)
[2020-09-13 12:20] VITALS: BP 145/81
[2020-09-30] MEDS ORDERED: ONDA8TAB13 PO (15:24)
[2020-09-30] MEDS ORDERED: LOPE-134 PO (15:24)
[2020-10-07] MEDS ORDERED: BENZ100C18 PO (20:51)
[2020-10-07] MEDS ORDERED: ONDA8TAB13 PO (20:51)
[2020-10-07] MEDS ORDERED: L. A1CAP11 PO (20:51)
[2020-11-14] MEDS ORDERED: [UNRECOGNIZED DRUG - CODE] PO (15:27)
[2020-11-14] MEDS ORDERED: AMLO-251 PO (15:27)
[2020-11-14] MEDS ORDERED: INSU100I29 SQ (15:27)
[2020-11-14] MEDS ORDERED: BUTA1CAP42 PO (15:27)
[2020-11-14] MEDS ORDERED: PRED2.5T PO (15:27)
[2020-11-14] MEDS ORDERED: INSU100V5 SQ (15:27)
[2020-11-14] MEDS ORDERED: CHOL200014 PO (15:27)
[2020-11-21] MEDS ORDERED: FURO40TA4 PO (10:10)
[2020-11-21] MEDS ORDERED: ASPI-1238 PO (10:10)
[2020-11-21] MEDS ORDERED: LEVE500T6 PO (10:10)
[2020-11-25] MEDS ORDERED: ALBU2.5V4 INH (11:01)
[2020-11-25] MEDS ORDERED: ONDA4TAB11 PO (11:01)
[2020-11-26] MEDS ORDERED: HYOS0.1283 SL (21:07)
[2020-11-26] MEDS ORDERED: ACHD5005 PO (21:07)
[2020-11-26] MEDS ORDERED: ONDA8TAB13 PO (21:07)
[2020-11-26] MEDS ORDERED: PANT40TA2 PO (21:07)
== END 2020-12-12 | disposition home or self-care (01) ==
LOC: SDC 11:55
PROVIDERS: ATTEND Nurse Practitioner
DX: Z45.2 Encounter for adjustment and management of vascular access device (principal)
CPT/HCPCS: 96523

== ENCOUNTER 2020-09-30 12:41 | Emergency (ER) | payer MEDICARE ==
[~2020-09-30] VITALS: Ht 162.5 cm; Wt 81.0 kg
[~2020-09-30 12:41] MED LIST changes: -BUTA-235 PO; +BUTA1TAB9 PO; +FOLI1TAB24 PO; -FOLI1TAB33 PO; +OXYC-471 PO; -OXYC1TAB11 PO
[2020-09-30] MEDS ORDERED: ACET/BUTAL/CAFF (FIORICET) TAB PO PRN (14:00)
--- NOTE | 2020-09-30 14:14 | ED General ---
General Chief Complaint: Cough/Cold/Flu Symptoms Stated Complaint: CP,SOB Nursing Triage Note: PT TO RM 8 VIA WHEELCHAIR FROM LOBBY. STATES HAVING INCREASED WEAKNESS AND HEADACHE W/ COUGH AND CONGESTION. STATES POSSIBLE LOW GRADE FEVER AND SOME DIARRHEA WITH NAUSEA. SYMPTOMS PROGRESSING OVER LAST WEEK. STATES SHE CALLED [facility] FOR ADVISE AND THEY ADVISED HER TO COME HERE. Nursing Sepsis Screen: No Definite Risk Source of Information: Patient Exam Limitations: No Limitations History of Present Illness Date Seen by Provider: Sep 30, 2020 Time Seen by Provider: 14:12 Initial Comments To ER by private vehicle from home with reports of weakness, headache, pro ductive cough, diarrhea, nausea. Timing/Duration: 1-2 Days Severity: Moderate Associated Systoms: Weakness Allergies and Home Medications Allergies Coded Allergies: clopidogrel (Verified Allergy, Severe, BLOOD CLOTS, 11/27/18) Penicillins (Verified Allergy, Mild, RASH, 11/27/18) carisoprodol (Verified Allergy, Mild, RASH, 11/27/18) cephalexin (Verified Allergy, Mild, RASH, 11/27/18) ketorolac (Verified Allergy, Mild, RASH, 11/27/18) prochlorperazine (Verified Allergy, Mild, RASH, 11/27/18) Carbamates (Verified Allergy, Unknown, Rash, 05/28/19) Home Medications Amlodipine Besylate 5 Mg Tablet, 5 MG PO DAILY, (Reported) Aspirin 81 Mg Tablet.dr, 81 MG PO DAILY Prescribed by: OLIVE ISAAC on 09/06/19 1527 Atorvastatin Calcium 40 Mg Tablet, 40 MG PO HS, (Reported) Baclofen 10 Mg Tablet, 10 MG PO TID PRN for MUSCLE SPASMS, (Reported) Brimonidine Tartrate 5 Ml Btl, 1 DROP OU TID, (Reported) 0.15% Carboxymethylcellulos/Glycerin 10 Ml Drops.gel, 1 DROP OD TID, (Reported) USE RIGHT BEFORE BRIMONIDINE EYE DROPS Cholecalciferol (Vitamin D3) 1,000 Unit Capsule, 1,000 UNIT PO DAILY, (Reported) Codeine/Butalbital/ASA/Caffein 1 Each Capsule, 1 CAP PO TID PRN for MIGRAINE, (Reported) Duloxetine HCl 30 Mg Capsule.dr, 30 MG PO DAILY, (Reported) TAKE ALONG WITH 60MG CAP FOR A TOTAL DAILY DOSE OF 90MG Duloxetine HCl 60 Mg Capsule.dr, 60 MG PO DAILY, (Reported) TAKES ALONG WITH 30MG CAPSULE FOR A TOTAL DAILY DOSE OF 90MG Folic Acid 1 Mg Tablet, 1 MG PO DAILY, (Reported) Furosemide 40 Mg Tablet, 40 MG PO DAILY, (Reported) Gabapentin 300 Mg Capsule, 300 MG PO TID, (Reported) LAST FILLED #90 07-09-19 Glipizide 5 Mg Tablet, 2.5 MG PO DAILY, (Reported) TAKES 1/2 (5MG) TABLET Hydrocodone Bit/Acetaminophen 1 Each Tablet, 1 EA PO Q4H PRN for PAIN-MODERATE (5-7) Prescribed by: OLIVE ISAAC on 09/06/19 152 Hydroxychloroquine Sulfate 200 Mg Tablet, 200 MG PO BID, (Reported) Metoprolol Succinate 100 Mg Tab.er.24h, 100 MG PO DAILY, (Reported) Ondansetron 4 Mg Tab.rapdis, 4 MG PO Q4H PRN for NAUSEA/VOMITING-1ST LINE, (Reported) Oxycodone HCl 15 Mg Tab.er.12h, 15 MG PO Q12HR Prescribed by: OLIVE ISAAC on 09/06/191526 Pantoprazole Sodium 40 Mg Tablet.dr, 40 MG PO DAILY, (Reported) Ropinirole HCl 1 Mg Tablet, 1 MG PO DAILY, (Reported) Ropinirole HCl 1 Mg Tablet, 2 MG PO HS, (Reported) TAKES 2 (1MG) TABLETS Topiramate 25 Mg Tablet, 25 MG PO HS, (Reported) Topiramate 50 Mg Tablet, 75 MG PO DAILY, (Reported) TAKE 1 & 1/2 OF 50MG TAB Tramadol HCl 50 Mg Tablet, 50-100 MG PO QID PRN for PAIN-MODERATE (5-7), (Reported) DOES NOT TAKE IF TAKING OTHER PRESCRIPTION PAIN MEDICATION Patient Home Medication List Home Medication List Reviewed: Yes Review of Systems Review of Systems Constitutional: see HPI EENTM: see HPI Respiratory: no symptoms reported Cardiovascular: no symptoms reported Genitourinary: no symptoms reported Musculoskeletal: no symptoms reported Skin: no symptoms reported Psychiatric/Neurological: No Symptoms Reported Hematologic/Lymphatic: No Symptoms Reported Immunological/Allergic: no symptoms reported Past Gkhzktb-Bvoyum-Xmwiba Hx Patient Social History Alcohol Use: Denies Use Recreational Drug Use: No 2nd Hand Smoke Exposure: No Recent Foreign Travel: No Contact w/Someone Who Travel: No Recent Infectious Disease Expo: No Recent Hopitalizations: Yes Physical Abuse: No Sexual Abuse: No Mistreated: No Fear: No Immunizations Up To Date Tetanus Booster (TDap): Unknown Date of Pneumonia Vaccine: Jul 29, 2017 Date of Influenza Vaccine: Jun 30, 2019 Seasonal Allergies Seasonal Allergies: No Past Medical History Surgeries: Yes (R CTR, espohageal ligation x2, Hernia, L RCR, L TKR, laparotomy, MRSA infec) Hysterectomy, Joint Replacement, Orthopedic, Thyroidectomy Respiratory: No Currently Using CPAP: No Currently Using BIPAP: No Cardiac: Yes (HX HEART CATH-STENT) Heart Attack, High Cholesterol, Hypertension Neurological: Yes Headaches /Migraines, Neuropathy Sexually Transmitted Disease: No HIV/AIDS: No Genitourinary: Yes (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, STAGE 2-kidneY DISEASE ) Bladder Infection, Renal Failure Gastrointestinal: Yes (HX GI BLEED, zenkers syndrome-chokes easily, hx hep A) Gastroesophageal Reflux, Hepatitis Musculoskeletal: Yes (OSTEOARTHRITIS, BULGING DISCS) Arthritis, Chronic Back Pain Endocrine: Yes (partial thyroidectomy) Diabetes, Non-Insulin dep HEENT: Yes (GLASSES, UPPER DENTURES) Loss of Vision: Bilateral Cancer: Yes Breast Did You Recieve Any Treatments: Yes What Type of Treatment Did You: Radiation, Surgical Intervention Psychosocial: No Integumentary: No Blood Disorders: Yes (IRON DEFFICIENCY ANEMIA-GETS IRON INFUSIONS) Adverse Reaction/Blood Tranf: No (HAS HAD BLOOD WITH NO REACTION) Family Medical History Hypertension G8 BROTHER Not obtainable due to adoption 19 FATHER No Pertinent Family Hx Physical Exam Vital Signs Vital Signs - First Documented 09/30/20 12:45 Temp 37.8 Pulse 104 Resp 24 B/P (MAP) 156/112 (127) Pulse Ox 96 O2 Delivery Room Air Capillary Refill : Less Than 3 Seconds Height, Weight, BMI Height: 5'4.00" Weight: 216lbs. 4.2oz. 98.697935wg; 30.00 BMI Method:Stated General Appearance: No Apparent Distress, WD/WN Eyes: Bilateral Eye Normal Inspection, Bilateral Eye PERRL, Bilateral Eye EOMI Neck: Full Range of Motion, Normal Inspection Respiratory: Lungs Clear, Normal Breath Sounds, No Accessory Muscle Use, No Respiratory Distress Cardiovascular: Regular Rate, Rhythm, Normal Peripheral Pulses Gastrointestinal: Normal Bowel Sounds, Non Tender, Soft Extremity: Normal Capillary Refill, Normal Inspection Neurologic/Psychiatric: Alert, Oriented x3 Skin: Normal Color, Warm/Dry Progress/Results/Core Measures Suspected Sepsis Recent Fever Within 48 Hours: Yes Infection Criteria Present: None New/Unexplained Altered Menta: No Sepsis Screen: No Definite Risk SIRS Temperature: Pulse: 104 Respiratory Rate: 24 Laboratory Tests 09/30/20 14:15: White Blood Count 8.5 Blood Pressure 156 /112 Mean: 127 Laboratory Tests 09/30/20 14:15: Creatinine 1.40H, INR Comment 1.0, Platelet Count 316, Total Bilirubin 0.2 Results/Orders Lab Results Laboratory Tests Test 09/30/20 13:10 09/30/20 13:43 09/30/20 14:15 Range/Units Coronavirus 2019 (SATYA) Negative Negative Urine Color YELLOW Urine Clarity CLEAR Urine pH 5.5 5-9 Urine Specific [place] 1.020 1.016-1.022 Urine Protein NEGATIVE NEGATIVE Urine Glucose (UA) NEGATIVE NEGATIVE Urine Ketones NEGATIVE NEGATIVE Urine Nitrite NEGATIVE NEGATIVE Urine Bilirubin NEGATIVE NEGATIVE Urine Urobilinogen 0.2 < = 1.0 MG/DL Urine Leukocyte Esterase NEGATIVE NEGATIVE Urine RBC (Auto) NEGATIVE NEGATIVE Urine RBC NONE /HPF Urine WBC NONE /HPF Urine Squamous Epithelial Cells 2-5 /HPF Urine Crystals NONE /LPF Urine Bacteria NEGATIVE /HPF Urine Casts NONE /LPF Urine Mucus NEGATIVE /LPF Urine Culture Indicated NO White Blood Count 8.5 4.3-11.0 10^3/uL Red Blood Count 4.53 3.80-5.11 10^6/uL Hemoglobin 13.1 11.5-16.0 g/dL Hematocrit 41 35-52 % Mean Corpuscular Volume 91 80-99 fL Mean Corpuscular Hemoglobin 29 25-34 pg Mean Corpuscular Hemoglobin Concent 32 32-36 g/dL Red Cell Distribution Width 12.5 10.0-14.5 % Platelet Count 316 130-400 10^3/uL Mean Platelet Volume 9.4 9.0-12.2 fL Immature Granulocyte % (Auto) 0 % Neutrophils (%) (Auto) 61 42-75 % Lymphocytes (%) (Auto) 29 12-44 % Monocytes (%) (Auto) 8 0-12 % Eosinophils (%) (Auto) 2 0-10 % Basophils (%) (Auto) 1 0-10 % Neutrophils # (Auto) 5.2 1.8-7.8 10^3/uL Lymphocytes # (Auto) 2.4 1.0-4.0 10^3/uL Monocytes # (Auto) 0.7 0.0-1.0 10^3/uL Eosinophils # (Auto) 0.2 0.0-0.3 10^3/uL Basophils # (Auto) 0.1 0.0-0.1 10^3/uL Immature Granulocyte # (Auto) 0.0 0.0-0.1 10^3/uL Prothrombin Time 13.0 12.2-14.7 SEC INR Comment 1.0 0.8-1.4 Activated Partial Thromboplast Time 36 H 24-35 SEC Sodium Level 139 135-145 MMOL/L Potassium Level 3.6 3.6-5.0 MMOL/L Chloride Level 105 98-107 MMOL/L Carbon Dioxide Level 23 21-32 MMOL/L Anion Gap 11 5-14 MMOL/L Blood Urea Nitrogen 18 7-18 MG/DL Creatinine 1.40 H 0.60-1.30 MG/DL Estimat Glomerular Filtration Rate 37 BUN/Creatinine Ratio 13 Glucose Level 208 H 70-105 MG/DL Calcium Level 8.4 L 8.5-10.1 MG/DL Corrected Calcium 8.5 8.5-10.1 MG/DL Magnesium Level 1.9 1.6-2.4 MG/DL Total Bilirubin 0.2 0.1-1.0 MG/DL Aspartate Amino Transf (AST/SGOT) 9 5-34 U/L Alanine Aminotransferase (ALT/SGPT) 10 0-55 U/L Alkaline Phosphatase 119 40-136 U/L Myoglobin 65.6 10.0-92.0 NG/ML Troponin I < 0.028 <0.028 NG/ML B-Type Natriuretic Peptide 29.6 <100.0 PG/ML Total Protein 7.0 6.4-8.2 GM/DL Albumin 3.9 3.2-4.5 GM/DL Micro Results Microbiology 09/30/20 Influenza Types A,B Antigen (WILMAN) - Final, Complete My Orders Orders - JARED ODELL CUSTOMER TRAINER Cbc With Automated Diff (09/30/20 13:38) Magnesium (09/30/20 13:38) Chest 1 View, Ap/Pa Only (09/30/20 13:38) Ekg Tracing (09/30/20 13:38) Comprehensive Metabolic Panel (09/30/20 13:38) Myoglobin Serum (09/30/20 13:38) Protime With Inr (09/30/20 13:38) Partial Thromboplastin Time (09/30/20 13:38) O2 (09/30/20 13:38) Monitor-Rhythm Ecg Trace Only (09/30/20 13:38) Lipid Panel (10/01/20 06:00) Ed Iv/Invasive Line Start (09/30/20 13:38) BNP (09/30/20 13:38) Troponin I (09/30/20 13:38) Butalbital/Apap/Caffeine Tab (Fioricet T (09/30/20 14:00) Ns Iv 1000 Ml (Sodium Chloride 0.9%) (09/30/20 14:15) Ondansetron Injection (Zofran Injectio (09/30/20 14:15) Loperamide Tablet (Imodium Tablet) (09/30/20 14:15) Ua Culture If Indicated (09/30/20 14:53) Medications Given in ED Current Medications Medications Dose Ordered Sig/Ana María Route Start Time Stop Time Status Last Admin Dose Admin Acetaminophen/ Butalbital/ Caffeine 1 tab Q4H PRN PO 09/30/20 14:00 09/30/20 14:04 1 TAB Loperamide HCl 4 mg ONCE ONCE PO 09/30/20 14:15 09/30/20 14:16 DC 09/30/20 14:23 4 MG Ondansetron HCl 4 mg ONCE ONCE IVP 09/30/20 14:15 09/30/20 14:16 DC 09/30/20 14:24 4 MG Vital Signs/I&O 09/30/20 09/30/20 12:45 12:45 Temp 37.8 Pulse 104 Resp 24 B/P (MAP) 156/112 (127) Pulse Ox 96 O2 Delivery Room Air Room Air Capillary Refill : Less Than 3 Seconds Blood Pressure Mean: 127 Departure Impression Primary Impression: Viral syndrome Disposition: 01 HOME, SELF-CARE Condition: Stable Departure-Patient Inst. Decision time for Depature: 15:22 Referrals: [facility] (PCP) Primary Care Physician MARYBETH SCHRADER APRN (Family) Primary Care Physician Patient Instructions: Viral Syndrome (DC) Add. Discharge Instructions: 1. Return to ER for any concerns 2. Follow-up with your doctor next week 3. All discharge instructions reviewed with patient and/or family. Voiced understanding. Scripts Loperamide HCl (Imodium A-D) 2 Mg Tablet 2 MG PO Q4H PRN for DIARRHEA, #10 TAB Prov: JARED ODELL APRN 09/30/20 Ondansetron (Ondansetron Odt) 8 Mg Tab.rapdis 8 MG PO Q6H PRN for NAUSEA/VOMITING, #10 TAB Prov: JARED ODELL APRN 09/30/20 JARED ODELL APRN Sep 30, 2020 14:14
[2020-09-30] MEDS ORDERED: ONDANSETRON 4 MG/2 ML (SDV) Z0FRAN IVP ONE (14:15)
[2020-09-30] MEDS ORDERED: NS IV 1000 ML 1,000 ML IV SCH (14:15)
[2020-09-30] MEDS ORDERED: LOPERAMIDE 2 MG (IMODIUM) TABLET PO ONE (14:15)
[2020-09-30 14:26] LABS: BASOPHILS # (AUTO) 0.1 10^3/uL (0.0-0.1); BASOPHILS % (AUTO) 1 % (0-10); EOSINOPHILS # (AUTO) 0.2 10^3/uL (0.0-0.3); EOSINOPHILS % (AUTO) 2 % (0-10); HEMATOCRIT 41 % (35-52); HEMOGLOBIN 13.1 g/dL (11.5-16.0); LYMPHOCYTES # (AUTO) 2.4 10^3/uL (1.0-4.0); LYMPHOCYTES % (AUTO) 29 % (12-44); MEAN CORPUSCULAR HEMOGLOBIN 29 pg (25-34); MEAN CORPUSCULAR HGB CONC 32 g/dL (32-36); MEAN CORPUSCULAR VOLUME 91 fL (80-99); MEAN PLATELET VOLUME 9.4 fL (9.0-12.2); MONOCYTES # (AUTO) 0.7 10^3/uL (0.0-1.0); MONOCYTES % (AUTO) 8 % (0-12); NEUTROPHILS # (AUTO) 5.2 10^3/uL (1.8-7.8); NEUTROPHILS % (AUTO) 61 % (42-75); PLATELET COUNT 316 10^3/uL (130-400); WHITE BLOOD COUNT 8.5 10^3/uL (4.3-11.0)
[2020-09-30 14:38] LABS: ALBUMIN 3.9 GM/DL (3.2-4.5); POTASSIUM 3.6 MMOL/L (3.6-5.0)
[2020-09-30 14:39] LABS: CALCIUM 8.4 MG/DL (8.5-10.1)
[2020-09-30 14:42] LABS: BILIRUBIN,TOTAL 0.2 MG/DL (0.1-1.0)
[2020-09-30 14:44] LABS: CREATININE SERUM 1.4 MG/DL (0.60-1.30)
[2020-09-30 14:47] LABS: MAGNESIUM 1.9 MG/DL (1.6-2.4)
[2020-09-30 14:58] LABS: BILIRUBIN,URINE NEGATIVE (NEGATIVE); CLARITY,URINE CLEAR; COLOR,URINE YELLOW; GLUCOSE, URINE (UA) NEGATIVE (NEGATIVE); KETONES,URINE NEGATIVE (NEGATIVE); LEUKOCYTE ESTERASE ,URINE NEGATIVE (NEGATIVE); NITRITE,URINE NEGATIVE (NEGATIVE); PH,URINE 5.5 (5-9); PROTEIN,URINE NEGATIVE (NEGATIVE)
--- NOTE | 2020-09-30 15:08 | Diagnostic Imaging Report ---
INDICATION: Chest pain. EXAMINATION: Frontal chest was obtained at 2:50 p.m. COMPARISON: 06/08/2020. FINDINGS: Heart is normal in size. There is poor aspiration but the lungs are clear. There is no change in Port-A-Cath device. There is no pneumothorax or pleural fluid. IMPRESSION: No acute process in the chest. Dictated by: Dictated on workstation # [id number]
[2020-09-30 15:09] LABS: BACTERIA,URINE NEGATIVE /HPF
[2020-09-30] MEDS ORDERED: LOPE-134 PO (15:24)
[2020-09-30] MEDS ORDERED: ONDA8TAB13 PO (15:24)
[2020-09-30 15:50] VITALS: BP 177/116
--- NOTE | 2020-09-30 15:50 | NUR ---
PT DISMISSED TO HOME W/ WRITTEN AND VERBAL INSTRUCTIONS GIVEN BY JARED ODELL NP. PT VERBALIZES UNDERSTANDING OF INSTRUCTIONS AND WILL FOLLOW UP IF NEEDED WITH PCP. PT IS ON HOME MEDICATIONS FOR BLOOD PRESSURE AND STATED THAT HER SUGARS AND BLOOD PRESSURES WERE RUNNING HIGHER THAN NORMAL AND DISCUSSED WITH ACADEMIC ASSISTANT. AFTER DISMISSAL PT WAITED IN ROOM 6 UNTIL HER GENERAL ACCOUNTING CLERK COULD COME PICK HER UP DUE TO PUI PRECAUTIONS. PT WAS THEN TAKEN OUT THE AMBULANCE ENTERANCE WHEN HER RIDE ARRIVED.
== END 2020-09-30 15:50 | disposition home or self-care (01) ==
LOC: EDUNIT# 12:41 → ER 12:43
DX: B34.9 Viral infection, unspecified (principal); I25.2 Old myocardial infarction; I10 Essential (primary) hypertension; E78.00 Pure hypercholesterolemia, unspecified; K21.9 Gastro-esophageal reflux disease without esophagitis; G89.29 Other chronic pain; M54.9 Dorsalgia, unspecified; E11.9 Type 2 diabetes mellitus without complications; Z20.828 Contact with and (suspected) exposure to other viral communicable diseases; Z82.49 Family history of ischemic heart disease and other diseases of the circulatory system; Z85.3 Personal history of malignant neoplasm of breast; Z95.9 Presence of cardiac and vascular implant and graft, unspecified; Z95.5 Presence of coronary angioplasty implant and graft; Z88.0 Allergy status to penicillin; Z88.1 Allergy status to other antibiotic agents; Z88.8 Allergy status to other drugs, medicaments and biological substances; Z88.6 Allergy status to analgesic agent; Z79.82 Long term (current) use of aspirin; Z79.891 Long term (current) use of opiate analgesic
CPT/HCPCS: 71045; 80053; 81000; 83735; 83874; 83880; 84484; 85025; 85610; 85730; 87804; 93041; 99284; U0002; 36415; 87635; 93005

== ENCOUNTER 2020-10-07 19:05 | Emergency (ER) | payer MEDICARE ==
[~2020-10-07] VITALS: Ht 162.5 cm; Wt 79.0 kg
[~2020-10-07 19:05] MED LIST changes: +LOPE-134 PO; +ONDA8TAB13 PO
[2020-10-07] MEDS ORDERED: NS IV 1000 ML 1,000 ML IV SCH (19:30)
[2020-10-07] MEDS ORDERED: ONDANSETRON 4 MG/2 ML (SDV) Z0FRAN IVP ONE (19:30)
[2020-10-07 19:35] LABS: BILIRUBIN,URINE NEGATIVE (NEGATIVE); CLARITY,URINE CLEAR; COLOR,URINE YELLOW; GLUCOSE, URINE (UA) NEGATIVE (NEGATIVE); KETONES,URINE NEGATIVE (NEGATIVE); LEUKOCYTE ESTERASE ,URINE NEGATIVE (NEGATIVE); NITRITE,URINE NEGATIVE (NEGATIVE); PH,URINE 5.5 (5-9); PROTEIN,URINE NEGATIVE (NEGATIVE)
[2020-10-07 19:43] LABS: BACTERIA,URINE TRACE /HPF; RBC,URINE 0-2 /HPF; WBC,URINE 0-2 /HPF
[2020-10-07 19:51] LABS: BASOPHILS # (AUTO) 0.1 10^3/uL (0.0-0.1); BASOPHILS % (AUTO) 1 % (0-10); EOSINOPHILS # (AUTO) 0.2 10^3/uL (0.0-0.3); EOSINOPHILS % (AUTO) 2 % (0-10); HEMATOCRIT 40 % (35-52); HEMOGLOBIN 13.3 g/dL (11.5-16.0); LYMPHOCYTES % (AUTO) 21 % (12-44); MEAN CORPUSCULAR HEMOGLOBIN 29 pg (25-34); MEAN CORPUSCULAR HGB CONC 33 g/dL (32-36); MEAN CORPUSCULAR VOLUME 88 fL (80-99); MEAN PLATELET VOLUME 9.5 fL (9.0-12.2); MONOCYTES # (AUTO) 0.7 10^3/uL (0.0-1.0); MONOCYTES % (AUTO) 7 % (0-12); NEUTROPHILS # (AUTO) 6.8 10^3/uL (1.8-7.8); NEUTROPHILS % (AUTO) 70 % (42-75); PLATELET COUNT 321 10^3/uL (130-400); WHITE BLOOD COUNT 9.7 10^3/uL (4.3-11.0)
--- NOTE | 2020-10-07 19:54 | ED General ---
General Chief Complaint: Abdominal/GI Problems Stated Complaint: VOMITING;SOB Nursing Triage Note: TO ED VIA POV AND W/C TO ROOM 9 UNDER COVID PUI PRECAUTIONS R/T C/O ABD PAIN, N/V/D, WEAKNESS, HEADACHE FOR A WEEK. Nursing Sepsis Screen: No Definite Risk Source of Information: Patient, Old Records History of Present Illness Date Seen by Provider: Oct 07, 2020 Time Seen by Provider: 19:20 Initial Comments PT ARRIVES VIA POV FROM HOME PT STATES SHE HAS BEEN SICK FOR A WEEK MULTIPLE SYMPTOMS --ALL BEGAN AT SAME TIME C/O NAUSEA/VOMITING/DIARRHEA--VOMITED X 5 TODAY, DIARRHEA X 1 TODAY NO ABDOMINAL PAIN C/O MINIMAL INTAKE, AND DECREASED URINE OUTPUT C/O GENERALIZED WEAKNESS C/O NON-PRODUCTIVE COUGH C/O SHORTNESS OF BREATH C/O HEADACHE C/O BODY ACHES STATES SHE LOST TASTE AND SMELL A COUPLE OF DAYS AGO WAS SEEN HERE 09/30/20--COVID-19 TESTING DONE AT THAT TIME WAS NEGATIVE PT SEEN AT [facility] [place] THIS Saturday10/04/20 FOR SAME--IMMODIUM INCREASED AND HER METFORMIN WAS INCREASED NO KNOWN SICK CONTACTS OR KNOWN EXPOSURE TO COVID-19. STATES SHE LIVES ALONE PCP: [facility] [place], [facility]IL[facility] MOSS MED AIDE: DR. GUTIERREZ Allergies and Home Medications Allergies Coded Allergies: clopidogrel (Verified Allergy, Severe, BLOOD CLOTS, 11/27/18) Penicillins (Verified Allergy, Mild, RASH, 11/27/18) carisoprodol (Verified Allergy, Mild, RASH, 11/27/18) cephalexin (Verified Allergy, Mild, RASH, 11/27/18) ketorolac (Verified Allergy, Mild, RASH, 11/27/18) prochlorperazine (Verified Allergy, Mild, RASH, 11/27/18) Carbamates (Verified Allergy, Unknown, Rash, 05/28/19) Home Medications Amlodipine Besylate 5 Mg Tablet, 5 MG PO DAILY, (Reported) Aspirin 81 Mg Tablet., 81 MG PO DAILY Prescribed by: OLIVE ISAAC on 09/06/19 1527 Atorvastatin Calcium 40 Mg Tablet, 40 MG PO HS, (Reported) Baclofen 10 Mg Tablet, 10 MG PO TID PRN for MUSCLE SPASMS, (Reported) Benzonatate 100 Mg Capsule, 100 MG PO TID PRN for COUGH Prescribed by: RAPHAEL DUNCAN on 10/07/202050 Brimonidine Tartrate 5 Ml Btl, 1 DROP OU TID, (Reported) 0.15% Carboxymethylcellulos/Glycerin 10 Ml Drops.gel, 1 DROP OD TID, (Reported) USE RIGHT BEFORE BRIMONIDINE EYE DROPS Cholecalciferol (Vitamin D3) 1,000 Unit Capsule, 1,000 UNIT PO DAILY, (Reported) Codeine/Butalbital/ASA/Caffein 1 Each Capsule, 1 CAP PO TID PRN for MIGRAINE, (Reported) Duloxetine HCl 30 Mg Capsule.dr, 30 MG PO DAILY, (Reported) TAKE ALONG WITH 60MG CAP FOR A TOTAL DAILY DOSE OF 90MG Duloxetine HCl 60 Mg Capsule.dr, 60 MG PO DAILY, (Reported) TAKES ALONG WITH 30MG CAPSULE FOR A TOTAL DAILY DOSE OF 90MG Folic Acid 1 Mg Tablet, 1 MG PO DAILY, (Reported) Furosemide 40 Mg Tablet, 40 MG PO DAILY, (Reported) Gabapentin 300 Mg Capsule, 300 MG PO TID, (Reported) LAST FILLED #90 07-09-19 Glipizide 5 Mg Tablet, 2.5 MG PO DAILY, (Reported) TAKES 1/2 (5MG) TABLET Hydrocodone Bit/Acetaminophen 1 Each Tablet, 1 EA PO Q4H PRN for PAIN-MODERATE (5-7) Prescribed by: OLIVE ISAAC on 09/06/19 152 Hydroxychloroquine Sulfate 200 Mg Tablet, 200 MG PO BID, (Reported) L. Acidophilus/Pectin, Leon 1 Each Capsule, 2 EACH PO QID Prescribed by: RAPHAEL DUNCAN on 10/07/202050 Loperamide HCl 2 Mg Tablet, 2 MG PO Q4H PRN for DIARRHEA Prescribed by: JARED ODELL on 09/30/20 152 Metoprolol Succinate 100 Mg Tab.er.24h, 100 MG PO DAILY, (Reported) Ondansetron 4 Mg Tab.rapdis, 4 MG PO Q4H PRN for NAUSEA/VOMITING-1ST LINE, (Reported) Ondansetron 8 Mg Tab.rapdis, 8 MG PO Q6H PRN for NAUSEA/VOMITING Prescribed by: JARED ODELL on 09/30/20 152 Ondansetron 8 Mg Tab.rapdis, 8 MG PO Q6H Prescribed by: RAPHAEL DUNCAN on 10/07/202050 Oxycodone HCl 15 Mg Tab.er.12h, 15 MG PO Q12HR Prescribed by: OLIVE ISAAC on 09/06/19 152 Pantoprazole Sodium 40 Mg Tablet.dr, 40 MG PO DAILY, (Reported) Ropinirole HCl 1 Mg Tablet, 1 MG PO DAILY, (Reported) Ropinirole HCl 1 Mg Tablet, 2 MG PO HS, (Reported) TAKES 2 (1MG) TABLETS Topiramate 25 Mg Tablet, 25 MG PO HS, (Reported) Topiramate 50 Mg Tablet, 75 MG PO DAILY, (Reported) TAKE 1 & 1/2 OF 50MG TAB Tramadol HCl 50 Mg Tablet, 50-100 MG PO QID PRN for PAIN-MODERATE (5-7), (Reported) DOES NOT TAKE IF TAKING OTHER PRESCRIPTION PAIN MEDICATION Patient Home Medication List Home Medication List Reviewed: Yes Review of Systems Review of Systems Constitutional: see HPI, malaise, weakness EENTM: see HPI Respiratory: see HPI, cough, short of breath Cardiovascular: no symptoms reported; No chest pain Gastrointestinal: see HPI; No abdominal pain; diarrhea, loss of appetite, nausea, vomiting Genitourinary: see HPI, decreased output Musculoskeletal: see HPI (BODY ACHES) Skin: no symptoms reported Psychiatric/Neurological: See HPI, Headache; Denies Numbness, Denies Paresthesia Hematologic/Lymphatic: No Symptoms Reported Immunological/Allergic: no symptoms reported Past Ycepmvs-Rowqzw-Qildpy Hx Past Med/Social Hx: Reviewed and Corrections made Patient Social History Alcohol Use: Denies Use Recreational Drug Use: No Smoking Status: Never a Smoker 2nd Hand Smoke Exposure: No Recent Foreign Travel: No Contact w/Someone Who Travel: No Recent Infectious Disease Expo: No Recent Hopitalizations: Yes Physical Abuse: No Sexual Abuse: No Mistreated: No Fear: No Immunizations Up To Date Tetanus Booster (TDap): Unknown Date of Pneumonia Vaccine: Jul 29, 2017 Date of Influenza Vaccine: Jun 30, 2019 Seasonal Allergies Seasonal Allergies: No Past Medical History Surgeries: Yes (R CTR, espohageal ligation x2, Hernia, L RCR, L TKR, laparotomy, MRSA infec) Abdominal, Breast, Cardiac, Coronary Stent, Hysterectomy, Joint Replacement, Oophorectomy, Orthopedic, Thyroidectomy Respiratory: No Currently Using CPAP: No Currently Using BIPAP: No Cardiac: Yes (HX HEART CATH-STENT) Coronary Artery Disease, Heart Attack, High Cholesterol, Hypertension Neurological: Yes Headaches /Migraines, Neuropathy 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, Menopausal Sexually Transmitted Disease: No HIV/AIDS: No Genitourinary: Yes (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, STAGE 2-kidneY DISEASE ) Bladder Infection, Renal Failure Gastrointestinal: Yes (HX GI BLEED, zenkers syndrome-chokes easily, hx hep A) Abdominal Hernia, Gastroesophageal Reflux, Hepatitis Musculoskeletal: Yes (OSTEOARTHRITIS, BULGING DISCS) Arthritis, Chronic Back Pain Endocrine: Yes (partial thyroidectomy) Hypothyroidsim, Diabetes, Non-Insulin dep HEENT: Yes (GLASSES, UPPER DENTURES) Loss of Vision: Bilateral Cancer: Yes Breast Did You Recieve Any Treatments: Yes What Type of Treatment Did You: Radiation, Surgical Intervention LEFT BREAST CANCER DX 2008-S/P LUMPECTOMY AND RADIATION Psychosocial: No Integumentary: No Blood Disorders: Yes (IRON DEFFICIENCY ANEMIA-GETS IRON INFUSIONS) Adverse Reaction/Blood Tranf: No (HAS HAD BLOOD WITH NO REACTION) Family Medical History Hypertension G8 BROTHER Not obtainable due to adoption 19 FATHER No Pertinent Family Hx ADDITIONAL PAST SURGICAL HISTORY -ZENKER'S DIVERTICULUM SURGERY X 2 -ABDOMINAL HERNIA REPAIR WITH MESH -MESH REMOVAL AND LY8IS OF ADHESIONS -HYST/BSO -LEFT BREAST LUMPECTOMY -CARDIAC CATH WITH STENT X 1 2005 -PORT LEFT CHEST -RIGHT SHOULDER REPLACEMENT Physical Exam Vital Signs Vital Signs - First Documented 10/07/20 19:18 Temp 36.4 Pulse 119 Resp 16 B/P (MAP) 137/93 (108) O2 Delivery Room Air Capillary Refill : Less Than 3 Seconds Height, Weight, BMI Height: 5'4.00" Weight: 216lbs. 4.2oz. 98.870010kb; 29.00 BMI Method:Stated General Appearance: No Apparent Distress, WD/WN HEENT: PERRL/EOMI, Pharynx Normal, Other (ORAL MUCOSA SLIGHTLY DRY) Neck: Full Range of Motion, Normal Inspection, Non Tender, Supple Respiratory: Chest Non Tender, Normal Breath Sounds, No Accessory Muscle Use, No Respiratory Distress Cardiovascular: Regular Rate, Rhythm, No Edema, No JVD, No Murmur, Normal Peripheral Pulses Gastrointestinal: Non Tender, Soft Extremity: Normal Capillary Refill, Normal Range of Motion, Non Tender, No Calf Tenderness, No Pedal Edema, Other (OLD BRUISES TO LOWER LEGS BILATERALLY) Neurologic/Psychiatric: Alert, Oriented x3, No Motor/Sensory Deficits, Normal Mood/Affect, 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 Norm as Tested Skin: Normal Color, Warm/Dry, Ecchymosis (BILATERAL LOWER LEGS WITH OLD BRUISING) Focused Exam Lactate Level 10/07/20 19:35: Lactic Acid Level 1.12 Lactic Acid Level Laboratory Tests Test 10/07/20 19:35 Lactic Acid Level 1.12 MMOL/L (0.50-2.00) Progress/Results/Core Measures Suspected Sepsis Recent Fever Within 48 Hours: No Infection Criteria Present: Suspected New Infection New/Unexplained Altered Menta: No Sepsis Screen: No Definite Risk SIRS Temperature: Pulse: 119 Respiratory Rate: 16 Laboratory Tests 10/07/20 19:43: White Blood Count 9.7 Blood Pressure 137 /93 Mean: 108 10/07/20 19:35: Lactic Acid Level 1.12 Laboratory Tests 10/07/20 19:43: Creatinine 1.59H, INR Comment 1.0, Platelet Count 321, Total Bilirubin 0.3 Results/Orders Lab Results Laboratory Tests Test 10/07/20 19:30 10/07/20 19:35 10/07/20 19:39 10/07/20 19:43 Range/Units Urine Color YELLOW Urine Clarity CLEAR Urine pH 5.5 5-9 Urine Specific [place] 1.025 H 1.016-1.022 Urine Protein NEGATIVE NEGATIVE Urine Glucose (UA) NEGATIVE NEGATIVE Urine Ketones NEGATIVE NEGATIVE Urine Nitrite NEGATIVE NEGATIVE Urine Bilirubin NEGATIVE NEGATIVE Urine Urobilinogen 0.2 < = 1.0 MG/DL Urine Leukocyte Esterase NEGATIVE NEGATIVE Urine RBC (Auto) NEGATIVE NEGATIVE Urine RBC 0-2 /HPF Urine WBC 0-2 /HPF Urine Squamous Epithelial Cells 10-25 H /HPF Urine Crystals NONE /LPF Urine Bacteria TRACE /HPF Urine Casts PRESENT /LPF Urine Hyaline Casts 2-5 H /LPF Urine Mucus NEGATIVE /LPF Urine Culture Indicated NO Lactic Acid Level 1.12 0.50-2.00 MMOL/L Glucometer 119 H 70-110 MG/DL White Blood Count 9.7 4.3-11.0 10^3/uL Red Blood Count 4.57 3.80-5.11 10^6/uL Hemoglobin 13.3 11.5-16.0 g/dL Hematocrit 40 35-52 % Mean Corpuscular Volume 88 80-99 fL Mean Corpuscular Hemoglobin 29 25-34 pg Mean Corpuscular Hemoglobin Concent 33 32-36 g/dL Red Cell Distribution Width 12.5 10.0-14.5 % Platelet Count 321 130-400 10^3/uL Mean Platelet Volume 9.5 9.0-12.2 fL Immature Granulocyte % (Auto) 0 % Neutrophils (%) (Auto) 70 42-75 % Lymphocytes (%) (Auto) 21 12-44 % Monocytes (%) (Auto) 7 0-12 % Eosinophils (%) (Auto) 2 0-10 % Basophils (%) (Auto) 1 0-10 % Neutrophils # (Auto) 6.8 1.8-7.8 10^3/uL Lymphocytes # (Auto) 2.0 1.0-4.0 10^3/uL Monocytes # (Auto) 0.7 0.0-1.0 10^3/uL Eosinophils # (Auto) 0.2 0.0-0.3 10^3/uL Basophils # (Auto) 0.1 0.0-0.1 10^3/uL Immature Granulocyte # (Auto) 0.0 0.0-0.1 10^3/uL Erythrocyte Sedimentation Rate 57 H 0-30 MM/HR Prothrombin Time 13.3 12.2-14.7 SEC INR Comment 1.0 0.8-1.4 Activated Partial Thromboplast Time 30 24-35 SEC D-Dimer < 0.27 0.00-0.49 UG/ML Sodium Level 142 135-145 MMOL/L Potassium Level 3.2 L 3.6-5.0 MMOL/L Chloride Level 104 98-107 MMOL/L Carbon Dioxide Level 25 21-32 MMOL/L Anion Gap 13 5-14 MMOL/L Blood Urea Nitrogen 23 H 7-18 MG/DL Creatinine 1.59 H 0.60-1.30 MG/DL Estimat Glomerular Filtration Rate 32 BUN/Creatinine Ratio 14 Glucose Level 125 H 70-105 MG/DL Calcium Level 8.5 8.5-10.1 MG/DL Corrected Calcium 8.5 8.5-10.1 MG/DL Magnesium Level 1.7 1.6-2.4 MG/DL Total Bilirubin 0.3 0.1-1.0 MG/DL Aspartate Amino Transf (AST/SGOT) 10 5-34 U/L Alanine Aminotransferase (ALT/SGPT) 10 0-55 U/L Alkaline Phosphatase 123 40-136 U/L Lactate Dehydrogenase 188 125-220 U/L Total Creatine Kinase 41 29-168 U/L Creatine Kinase MB 1.2 <6.6 NG/ML Myoglobin 70.9 10.0-92.0 NG/ML Troponin I < 0.028 <0.028 NG/ML C-Reactive Protein High Sensitivity 1.48 H 0.00-0.50 MG/DL B-Type Natriuretic Peptide 12.0 <100.0 PG/ML Total Protein 7.3 6.4-8.2 GM/DL Albumin 4.0 3.2-4.5 GM/DL Amylase Level 43 25-125 U/L Lipase 54 8-78 U/L Procalcitonin 0.04 <0.10 NG/ML Coronavirus 2019 (SATYA) Negative Negative Micro Results Microbiology 10/07/20 Influenza Types A,B Antigen (WILMAN) - Final, Complete My Orders Orders - RAPHAEL DUNCAN DO Ed Iv/Invasive Line Start (10/07/20 19:21) Ekg Tracing (10/07/20 19:21) O2 (10/07/20 19:21) Monitor-Rhythm Ecg Trace Only (10/07/20 19:21) Chest 1 View, Ap/Pa Only (10/07/20 19:21) Amylase (10/07/20 19:21) BNP (10/07/20 19:21) Cbc With Automated Diff (10/07/20 19:21) Comprehensive Metabolic Panel (10/07/20 19:21) Creatine Kinase (10/07/20 19:21) Creatine Kinase Mb (10/07/20 19:21) Lipase (10/07/20 19:21) Magnesium (10/07/20 19:21) Protime With Inr (10/07/20 19:21) Partial Thromboplastin Time (10/07/20 19:21) Ua Culture If Indicated (10/07/20 19:21) Blood Culture (10/07/20 19:21) Influenza A And B Antigens (10/07/20 19:21) Myoglobin Serum (10/07/20 19:21) Troponin I (12/18/20 19:21) Fibrin Degradation Products (10/07/20 19:21) Procalcitonin (Pct) (10/07/20 19:21) Hs C Reactive Protein (10/07/20 19:21) Erythrocyte Sedimentation Rate (10/07/20 19:21) LDH (10/07/20 19:21) Coronavirus Sars-Cov-2 So 2019 (10/07/20 19:21) Covid 19 Inhouse Test (10/07/20 19:21) Ondansetron Injection (Zofran Injectio (10/07/20 19:30) Ed Iv/Invasive Line Start (10/07/20 19:21) Ns Iv 1000 Ml (Sodium Chloride 0.9%) (10/07/20 19:30) Accucheck Stat ONCE (10/07/20 19:45) Lactic Acid Analyzer (10/07/20 20:04) Medications Given in ED Current Medications Medications Dose Ordered Sig/Ana María Route Start Time Stop Time Status Last Admin Dose Admin Ondansetron HCl 4 mg ONCE ONCE IVP 10/07/20 19:30 10/07/20 19:31 DC 10/07/20 19:46 4 MG Vital Signs/I&O 10/07/20 19:18 Temp 36.4 Pulse 119 Resp 16 B/P (MAP) 137/93 (108) O2 Delivery Room Air Capillary Refill : Less Than 3 Seconds Blood Pressure Mean: 108 Progress Note : Progress Note PLACED IN ISOLATION ROOM PPE WORN AT ALL TIMES COVID-19 TESTING PERFORMED PT ADVISED OF NEED FOR QUARANTINE NO DYSPNEA, NO COUGH, NO FEVER, NO HYPOXIA AT ANY TIME PT AMBULATES WITHOUT ANY DIFFICULTY UNEVENTFUL ER STAY ECG Initial ECG Impression Date: Oct 07, 2020 Initial ECG Impression Time: 19:35 Initial ECG Rate: 105 Initial ECG Rhythm: S.Tach Initial ECG Impression: Nonspecific Changes Diagnostic Imaging Comments CXR---PER RADIOLOGIST REPORT AT 2034 FINDINGS: There is cardiomegaly, Lungs are clear. There is no pleural effusion or pneumothorax. Mediastinum is unremarkable. [id number] catheter overlies the left hemithorax. IMPRESSION: Stable appearance of the chest. Reviewed: Reviewed by Me Departure Impression Primary Impression: Person under investigation for COVID-19 Additional Impressions: Nausea vomiting and diarrhea Dehydration NIDDM Disposition: HOME, SELF-CARE Condition: Stable Departure-Patient Inst. Referrals: [facility] (PCP) Primary Care Physician MARYBETH SCHRADER APRN (Family) Primary Care Physician Patient Instructions: Coronavirus Disease 2019 (COVID-19) (DC), Preventing the Spread of an Infectious Disease, Dehydration, Adult (DC), Nausea and Vomiting, Adult (DC) Add. Discharge Instructions: CLEAR LIQUIDS--WATER, BROTH, JELLO, GATORADE, POPSICLES--DRINK ENOUGH SO YOUR ARE URINATING EVERY 2-3 HOURS WHILE AWAKE BRATS DIET--BANANAS, RICE, APPLESAUCE, TOAST, SALTINES TYLENOL AND MOTRIN NEEDED FOR PAIN OR FEVER OVER [address] UP WITH YOUR DR IN 3-4 DAYS IF NO BETTER QUARANTINE FOR 14 DAYS OR UNTIL CLEARED BY DR OR HEALTH DEPT All discharge instructions reviewed with patient and/or family. Voiced understanding. Scripts Benzonatate (TESSALON PERLES) 100 Mg Capsule 100 MG PO TID PRN for COUGH, #30 CAP Prov: RAPHAEL DUNCAN DO 10/07/20 L. Acidophilus/Pectin, Leon (Acidophilus Capsule) 1 Each Capsule 2 EACH PO QID, #40 CAP Prov: RAPHAEL DUNCAN DO 10/07/20 Ondansetron (Ondansetron Odt) 8 Mg Tab.rapdis 8 MG PO Q6H, #10 TAB Prov: RAPHAEL DUNCAN DO 10/07/20 RAPHAEL DUNCAN DO Oct 07, 2020 19:54
[2020-10-07 20:09] LABS: ALANINE AMINOTRANSFERASE 10 U/L (0-55); ALKALINE PHOSPHATASE 123 U/L (40-136); AMYLASE 43 U/L (25-125); BILIRUBIN,TOTAL 0.3 MG/DL (0.1-1.0); BUN/CREATININE RATIO 14; CALCIUM 8.5 MG/DL (8.5-10.1); CARBON DIOXIDE 25 MMOL/L (21-32); CHLORIDE 104 MMOL/L (98-107); CREATINE KINASE 41 U/L (29-168); CREATININE SERUM 1.59 MG/DL (0.60-1.30); GFR ESTIMATED 32; GLUCOSE 125 MG/DL (70-105); LIPASE 54 U/L (8-78); MAGNESIUM 1.7 MG/DL (1.6-2.4); POTASSIUM 3.2 MMOL/L (3.6-5.0); SODIUM 142 MMOL/L (135-145); TOTAL PROTEIN 7.3 GM/DL (6.4-8.2)
[2020-10-07 20:11] LABS: ERYTHROCYTE SEDIMENTATION RATE 57 MM/HR (0-30)
--- NOTE | 2020-10-07 20:17 | Diagnostic Imaging Report ---
INDICATION: Pain, nausea, weakness and headache. COMPARISON: Prior examination from 09/30/2020. FINDINGS: There is cardiomegaly, Lungs are clear. There is no pleural effusion or pneumothorax. Mediastinum is unremarkable. Obyblj-m-[id number] catheter overlies the left hemithorax. IMPRESSION: Stable appearance of the chest. Dictated by: Dictated on workstation # [id number]
[2020-10-07 20:25] LABS: FIBRIN DEGRADATION PRODUCTS < 0.27 UG/ML (0.00-0.49); PARTIAL THROMBOPLASTIN TIME 30 SEC (24-35); PROTHROMBIN TIME PATIENT 13.3 SEC (12.2-14.7)
[2020-10-07 20:30] LABS: CREATINE KINASE MB 1.2 NG/ML (<6.6)
[2020-10-07 20:50] VITALS: BP 162/89
[2020-10-07] MEDS ORDERED: ONDA8TAB13 PO (20:51)
[2020-10-07] MEDS ORDERED: BENZ100C18 PO (20:51)
[2020-10-07] MEDS ORDERED: L. A1CAP11 PO (20:51)
== END 2020-10-07 20:50 | disposition home or self-care (01) ==
LOC: EDUNIT# 19:05 → ER 19:08
DX: R11.2 Nausea with vomiting, unspecified (principal); E86.0 Dehydration; I25.2 Old myocardial infarction; E78.00 Pure hypercholesterolemia, unspecified; I25.10 Atherosclerotic heart disease of native coronary artery without angina pectoris; I12.9 Hypertensive chronic kidney disease with stage 1 through stage 4 chronic kidney disease, or unspecified chronic kidney disease; K21.9 Gastro-esophageal reflux disease without esophagitis; E11.22 Type 2 diabetes mellitus with diabetic chronic kidney disease; N18.2 Chronic kidney disease, stage 2 (mild); G89.29 Other chronic pain; M54.9 Dorsalgia, unspecified; Z88.6 Allergy status to analgesic agent; Z88.0 Allergy status to penicillin; Z88.1 Allergy status to other antibiotic agents; Z85.3 Personal history of malignant neoplasm of breast; Z82.49 Family history of ischemic heart disease and other diseases of the circulatory system; Z20.828 Contact with and (suspected) exposure to other viral communicable diseases; Z88.8 Allergy status to other drugs, medicaments and biological substances; Z95.5 Presence of coronary angioplasty implant and graft; Z95.9 Presence of cardiac and vascular implant and graft, unspecified; Z79.891 Long term (current) use of opiate analgesic; Z79.82 Long term (current) use of aspirin
CPT/HCPCS: 71045; 80053; 81000; 82150; 82550; 82553; 82962; 83605; 83615; 83690; 83735; 83874; 83880; 84145; 84484; 85025; 85379; 85610; 85652; 85730; 86141; 87040; 87804; 93041; 99285; U0002; 36415; 87635; 93005; 96361; 96374

== ENCOUNTER 2020-11-06 08:47 | Emergency (ER) | payer MEDICARE ==
[~2020-11-06] VITALS: Ht 162.5 cm; Wt 77.1 kg
[~2020-11-06 08:47] MED LIST changes: +BENZ100C18 PO; -FOLI1TAB24 PO; +FOLI1TAB33 PO; +L. A1CAP11 PO
[2020-11-06] MEDS ORDERED: NS IV 1000 ML 1,000 ML ONE (09:05)
--- NOTE | 2020-11-06 09:08 | ED General ---
General Chief Complaint: Cough/Cold/Flu Symptoms Stated Complaint: COVID + Nursing Triage Note: PT BROUGHT IN BY [facility] FROM HOME WITH COMPLAINT OF HEADACHE, SORE THROAT, AND WEAKNESS. PT TESTED POSITIVE FOR COVID ON SATURDAY. STATES HER SYMPTOMS STARTED SATURDAY WITH COUGH, CHILLS, AND HEADACHE. STATES HAS BEEN BEING TREATED FOR A UTI FOR THE LAST MONTH. Nursing Sepsis Screen: No Definite Risk Source of Information: Patient Exam Limitations: No Limitations History of Present Illness Date Seen by Provider: Nov 06, 2020 Time Seen by Provider: 09:04 Initial Comments Patient is a 70-year-old female who presents to the emergency department today with a chief complaint of generalized weakness, bad headache, coughing. Patient states she was diagnosed with coronavirus on November 04. Patient states she started having symptoms on October 31. Patient states that she has been taking Tylenol for her headache with minimal relief of her symptoms. She complains of some generalized malaise also some low back pain. She states over the course of the last month she suffered with urinary tract infection and some diarrheal illness. She denies any symptoms related to this now. She states she is having nice formed stools, no burning with urination, no increased urgency or frequency. Patient tells me that she has a history of breast cancer from 2007. She has an Gjxlek-x-Xewn in place because she is "a hard stick". Patient states that she has had decreased appetite and is not drinking as much fluids as she thinks she needs to. She has not lost taste or smell. All other review of systems reviewed and negative except as stated. Timing/Duration: 1 Week Severity: Moderate Modifying Factors: improves with Medication (Tylenol for headache) Associated Systoms: Cough, Headaches, Loss of Appetite, Malaise, Shortness of Air (Shortness of breath with coughing) Allergies and Home Medications Allergies Coded Allergies: clopidogrel (Verified Allergy, Severe, BLOOD CLOTS, 11/27/18) Penicillins (Verified Allergy, Mild, RASH, 11/27/18) carisoprodol (Verified Allergy, Mild, RASH, 11/27/18) cephalexin (Verified Allergy, Mild, RASH, 11/27/18) ketorolac (Verified Allergy, Mild, RASH, 11/27/18) prochlorperazine (Verified Allergy, Mild, RASH, 11/27/18) Carbamates (Verified Allergy, Unknown, Rash, 05/28/19) Home Medications Amlodipine Besylate 5 Mg Tablet, 5 MG PO DAILY, (Reported) Aspirin 81 Mg Tablet.dr, 81 MG PO DAILY Prescribed by: OLIVE ISAAC on 09/06/19 152 Atorvastatin Calcium 40 Mg Tablet, 40 MG PO HS, (Reported) Baclofen 10 Mg Tablet, 10 MG PO TID PRN for MUSCLE SPASMS, (Reported) Benzonatate 100 Mg Capsule, 100 MG PO TID PRN for COUGH Prescribed by: RAPHAEL DUNCAN on 10/07/202050 Brimonidine Tartrate 5 Ml Btl, 1 DROP OU TID, (Reported) 0.15% Carboxymethylcellulos/Glycerin 10 Ml Drops.gel, 1 DROP OD TID, (Reported) USE RIGHT BEFORE BRIMONIDINE EYE DROPS Cholecalciferol (Vitamin D3) 1,000 Unit Capsule, 1,000 UNIT PO DAILY, (Reported) Codeine/Butalbital/ASA/Caffein 1 Each Capsule, 1 CAP PO TID PRN for MIGRAINE, (Reported) Duloxetine HCl 30 Mg Capsule.dr, 30 MG PO DAILY, (Reported) TAKE ALONG WITH 60MG CAP FOR A TOTAL DAILY DOSE OF 90MG Duloxetine HCl 60 Mg Capsule.dr, 60 MG PO DAILY, (Reported) TAKES ALONG WITH 30MG CAPSULE FOR A TOTAL DAILY DOSE OF 90MG Folic Acid 1 Mg Tablet, 1 MG PO DAILY, (Reported) Furosemide 40 Mg Tablet, 40 MG PO DAILY, (Reported) Gabapentin 300 Mg Capsule, 300 MG PO TID, (Reported) LAST FILLED #90 07-09-19 Glipizide 5 Mg Tablet, 2.5 MG PO DAILY, (Reported) TAKES 1/2 (5MG) TABLET Hydrocodone Bit/Acetaminophen 1 Each Tablet, 1 EA PO Q4H PRN for PAIN-MODERATE (5-7) Prescribed by: OLIVE ISAAC on 09/06/19 152 Hydroxychloroquine Sulfate 200 Mg Tablet, 200 MG PO BID, (Reported) L. Acidophilus/Pectin, [place] 1 Each Capsule, 2 EACH PO QID Prescribed by: RAPHAEL DUNCAN on 10/07/202050 Loperamide HCl 2 Mg Tablet, 2 MG PO Q4H PRN for DIARRHEA Prescribed by: JARED ODELL on 09/30/20 1524 Metoprolol Succinate 100 Mg Tab.er.24h, 100 MG PO DAILY, (Reported) Ondansetron 4 Mg Tab.rapdis, 4 MG PO Q4H PRN for NAUSEA/VOMITING-1ST LINE, (Reported) Ondansetron 8 Mg Tab.rapdis, 8 MG PO Q6H PRN for NAUSEA/VOMITING Prescribed by: JARED ODELL on 09/30/20 1524 Ondansetron 8 Mg Tab.rapdis, 8 MG PO Q6H Prescribed by: RAPHAEL DUNCAN on 10/07/202050 Oxycodone HCl 15 Mg Tab.er.12h, 15 MG PO Q12HR Prescribed by: OLIVE ISAAC on 09/06/19 152 Pantoprazole Sodium 40 Mg Tablet.dr, 40 MG PO DAILY, (Reported) Ropinirole HCl 1 Mg Tablet, 1 MG PO DAILY, (Reported) Ropinirole HCl 1 Mg Tablet, 2 MG PO HS, (Reported) TAKES 2 (1MG) TABLETS Topiramate 25 Mg Tablet, 25 MG PO HS, (Reported) Topiramate 50 Mg Tablet, 75 MG PO DAILY, (Reported) TAKE 1 & 1/2 OF 50MG TAB Tramadol HCl 50 Mg Tablet, 50-100 MG PO QID PRN for PAIN-MODERATE (5-7), (Reported) DOES NOT TAKE IF TAKING OTHER PRESCRIPTION PAIN MEDICATION Patient Home Medication List Home Medication List Reviewed: Yes Review of Systems Review of Systems Constitutional: see HPI EENTM: no symptoms reported Respiratory: cough, short of breath Cardiovascular: no symptoms reported Gastrointestinal: loss of appetite Genitourinary: no symptoms reported; No dysuria, No frequency Musculoskeletal: back pain (Low back pain) Skin: no symptoms reported Psychiatric/Neurological: Weakness (Generalized weakness) All Other Systems Reviewed Negative Unless Noted: Yes Past Gatjjcf-Xhlkkw-Exnhrg Hx Patient Social History Alcohol Use: Denies Use Smoking Status: Never a Smoker 2nd Hand Smoke Exposure: No Recent Infectious Disease Expo: Yes Recent Hopitalizations: Yes Immunizations Up To Date Tetanus Booster (TDap): Unknown Date of Pneumonia Vaccine: Jul 29, 2017 Date of Influenza Vaccine: Jun 30, 2019 Seasonal Allergies Seasonal Allergies: No Past Medical History Surgeries: Yes (R CTR, espohageal ligation x2, Hernia, L RCR, L TKR, laparotomy, MRSA infec) Abdominal, Breast, Cardiac, Coronary Stent, Hysterectomy, Joint Replacement, Oophorectomy, Orthopedic, Thyroidectomy Respiratory: No Currently Using CPAP: No Currently Using BIPAP: No Cardiac: Yes (HX HEART CATH-STENT) Coronary Artery Disease, Heart Attack, High Cholesterol, Hypertension Neurological: Yes Headaches /Migraines, 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, 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 Sexually Transmitted Disease: No HIV/AIDS: No Genitourinary: Yes (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, STAGE 2-kidneY DISEASE ) Bladder Infection, Renal Failure Gastrointestinal: Yes (HX GI BLEED, zenkers syndrome-chokes easily, hx hep A) Abdominal Hernia, Gastroesophageal Reflux, Hepatitis Musculoskeletal: Yes (OSTEOARTHRITIS, BULGING DISCS) Arthritis, Chronic Back Pain Endocrine: Yes (partial thyroidectomy) Hypothyroidsim, Diabetes, Non-Insulin dep HEENT: Yes (GLASSES, UPPER DENTURES) Loss of Vision: Bilateral Cancer: Yes Breast Did You Recieve Any Treatments: Yes What Type of Treatment Did You: Radiation, Surgical Intervention Psychosocial: No Integumentary: No Blood Disorders: Yes (IRON DEFFICIENCY ANEMIA-GETS IRON INFUSIONS) Adverse Reaction/Blood Tranf: No (HAS HAD BLOOD WITH NO REACTION) Family Medical History Hypertension G8 BROTHER Not obtainable due to adoption 19 FATHER No Pertinent Family Hx ADDITIONAL PAST SURGICAL HISTORY -ZENKER'S DIVERTICULUM SURGERY X 2 -ABDOMINAL HERNIA REPAIR WITH MESH -MESH REMOVAL AND LY8IS OF ADHESIONS -HYST/BSO -LEFT BREAST LUMPECTOMY -CARDIAC CATH WITH STENT X 1 2005 -PORT LEFT CHEST -RIGHT SHOULDER REPLACEMENT Physical Exam Vital Signs Vital Signs - First Documented 11/06/20 08:49 Temp 36.0 Pulse 100 Resp 20 B/P (MAP) 172/102 (125) Pulse Ox 97 O2 Delivery Room Air Capillary Refill : Less Than 3 Seconds Height, Weight, BMI Height: 5'4.00" Weight: 216lbs. 4.2oz. [id number]; 29.00 BMI Method:Stated General Appearance: No Apparent Distress, WD/WN, Anxious Eyes: Bilateral Eye Normal Inspection, Bilateral Eye PERRL, Bilateral Eye EOMI HEENT: PERRL/EOMI Respiratory: Lungs Clear, Normal Breath Sounds, No Accessory Muscle Use, No Respiratory Distress Cardiovascular: Regular Rate, Rhythm, Tachycardia Gastrointestinal: Normal Bowel Sounds, No Organomegaly, Non Tender, Soft Back: Normal Inspection Extremity: Normal Inspection, Normal Range of Motion, Non Tender, No Calf Tenderness, No Pedal Edema Neurologic/Psychiatric: Alert, Oriented x3, No Motor/Sensory Deficits, Normal Mood/Affect Skin: Normal Color, Warm/Dry, Other (brisk capillary refill) Progress/Results/Core Measures Suspected Sepsis Recent Fever Within 48 Hours: No Infection Criteria Present: None New/Unexplained Altered Menta: No Sepsis Screen: No Definite Risk SIRS Temperature: Pulse: 100 Respiratory Rate: 20 Laboratory Tests 11/06/20 09:06: White Blood Count 7.0 Blood Pressure 172 /102 Mean: 125 Laboratory Tests 11/06/20 09:06: Creatinine 1.40H, Platelet Count 267 Results/Orders Lab Results Laboratory Tests Test 11/06/20 09:06 Range/Units White Blood Count 7.0 4.3-11.0 10^3/uL Red Blood Count 4.63 3.80-5.11 10^6/uL Hemoglobin 13.5 11.5-16.0 g/dL Hematocrit 41 35-52 % Mean Corpuscular Volume 89 80-99 fL Mean Corpuscular Hemoglobin 29 25-34 pg Mean Corpuscular Hemoglobin Concent 33 32-36 g/dL Red Cell Distribution Width 13.0 10.0-14.5 % Platelet Count 267 130-400 10^3/uL Mean Platelet Volume 9.5 9.0-12.2 fL Immature Granulocyte % (Auto) 0 % Neutrophils (%) (Auto) 57 42-75 % Lymphocytes (%) (Auto) 29 12-44 % Monocytes (%) (Auto) 13 H 0-12 % Eosinophils (%) (Auto) 0 0-10 % Basophils (%) (Auto) 1 0-10 % Neutrophils # (Auto) 4.0 1.8-7.8 10^3/uL Lymphocytes # (Auto) 2.0 1.0-4.0 10^3/uL Monocytes # (Auto) 0.9 0.0-1.0 10^3/uL Eosinophils # (Auto) 0.0 0.0-0.3 10^3/uL Basophils # (Auto) 0.0 0.0-0.1 10^3/uL Immature Granulocyte # (Auto) 0.0 0.0-0.1 10^3/uL Sodium Level 139 135-145 MMOL/L Potassium Level 3.5 L 3.6-5.0 MMOL/L Chloride Level 105 98-107 MMOL/L Carbon Dioxide Level 21 21-32 MMOL/L Anion Gap 13 5-14 MMOL/L Blood Urea Nitrogen 23 H 7-18 MG/DL Creatinine 1.40 H 0.60-1.30 MG/DL Estimat Glomerular Filtration Rate 37 BUN/Creatinine Ratio 16 Glucose Level 161 H 70-105 MG/DL Calcium Level 7.9 L 8.5-10.1 MG/DL My Orders Orders - WENDY DAWN MD Cbc With Automated Diff (11/06/20 09:02) Basic Metabolic Panel (11/06/20 09:02) Ed Iv/Invasive Line Start (11/06/20 09:02) Ns Iv 1000 Ml (Sodium Chloride 0.9%) (11/06/20 09:15) Ns Iv 1000 Ml (Sodium Chloride 0.9%) (11/06/20 09:05) Acetaminophen Tablet (Tylenol Tablet) (11/06/20 09:15) Medications Given in ED Current Medications Medications Dose Ordered Sig/Ana María Route Start Time Stop Time Status Last Admin Dose Admin Acetaminophen 1,000 mg ONCE ONCE PO 11/06/20 09:15 11/06/20 09:16 DC 11/06/20 09:30 1,000 MG Vital Signs/I&O 11/06/20 11/06/20 08:49 08:49 Temp 36.0 Pulse 100 Resp 20 B/P (MAP) 172/102 (125) Pulse Ox 97 O2 Delivery Room Air Room Air Capillary Refill : Less Than 3 Seconds Blood Pressure Mean: 125 Progress Note : Time: 09:09 Progress Note 70-year-old female presents with a chief complaint of coronavirus and headache, body aches, loss of appetite, cough. Evaluation today includes physical exam, basic laboratory studies are obtained including a CBC and a chemistry. Secondary to the patient's generalized weakness will fluid resuscitate her with a liter of normal saline. Labs are pending at this time. Patient generally appears well, no clinical or objective findings to warrant sepsis work-up. [id number] re-evaluated patient feels ok. No complaints. She has about 1/2L left of her IVF; labs look good, mild increase in BUN/CR Departure Impression Primary Impression: Generalized weakness Additional Impression: 2019 novel coronavirus disease (COVID-19) Disposition: HOME, SELF-CARE Condition: Stable Departure-Patient Inst. Decision time for Depature: 11:34 Referrals: [facility] (PCP) Primary Care Physician MARYBETH SCHRADER APRN (Family) Primary Care Physician Patient Instructions: Coronavirus Disease 2019 (COVID-19) (DC) Add. Discharge Instructions: Drink lots of fluids to stay well hydrated, you were little dehydrated today. Continue tylenol as needed for headache/ temperature over 100.4. Use the Tessalon Perles for cough every 8 hours as needed. You can also continue to use the RObitussin DM and tea with honey for your cough. Follow up with your family doctor. Return to the ER for any worsening symptoms, shortness of breath, or other emergent concerns. WENDY DAWN MD Nov 06, 2020 09:08
[2020-11-06 09:14] LABS: BASOPHILS % (AUTO) 1 % (0-10); EOSINOPHILS % (AUTO) 0 % (0-10); HEMATOCRIT 41 % (35-52); HEMOGLOBIN 13.5 g/dL (11.5-16.0); LYMPHOCYTES % (AUTO) 29 % (12-44); MEAN CORPUSCULAR HEMOGLOBIN 29 pg (25-34); MEAN CORPUSCULAR HGB CONC 33 g/dL (32-36); MEAN CORPUSCULAR VOLUME 89 fL (80-99); MEAN PLATELET VOLUME 9.5 fL (9.0-12.2); MONOCYTES # (AUTO) 0.9 10^3/uL (0.0-1.0); MONOCYTES % (AUTO) 13 % (0-12); NEUTROPHILS % (AUTO) 57 % (42-75); PLATELET COUNT 267 10^3/uL (130-400)
[2020-11-06] MEDS ORDERED: NS IV 1000 ML 1,000 ML IV SCH (09:15)
[2020-11-06] MEDS ORDERED: ACETAMINOPHEN 500 MG TAB (TYLENOL) PO ONE (09:15)
[2020-11-06 09:29] LABS: POTASSIUM 3.5 MMOL/L (3.6-5.0)
[2020-11-06 09:30] LABS: CALCIUM 7.9 MG/DL (8.5-10.1)
[2020-11-06 09:34] LABS: CREATININE SERUM 1.4 MG/DL (0.60-1.30)
--- NOTE | 2020-11-06 11:39 | NUR ---
pt son contacted at this time for pt transport home. reports he will try to figure omething out.
[2020-11-06 11:50] VITALS: BP 151/94
== END 2020-11-06 11:50 | disposition home or self-care (01) ==
LOC: EDUNIT# 08:47 → ER 08:48
DX: U07.1 COVID-19 (principal); R53.1 Weakness; F41.9 Anxiety disorder, unspecified; K21.9 Gastro-esophageal reflux disease without esophagitis; E78.00 Pure hypercholesterolemia, unspecified; I10 Essential (primary) hypertension; G89.29 Other chronic pain; I25.10 Atherosclerotic heart disease of native coronary artery without angina pectoris; M54.9 Dorsalgia, unspecified; E11.9 Type 2 diabetes mellitus without complications; I25.2 Old myocardial infarction; Z95.5 Presence of coronary angioplasty implant and graft; Z95.9 Presence of cardiac and vascular implant and graft, unspecified; Z88.0 Allergy status to penicillin; Z88.1 Allergy status to other antibiotic agents; Z88.8 Allergy status to other drugs, medicaments and biological substances; Z85.3 Personal history of malignant neoplasm of breast; Z82.49 Family history of ischemic heart disease and other diseases of the circulatory system; Z79.82 Long term (current) use of aspirin; Z79.891 Long term (current) use of opiate analgesic
CPT/HCPCS: 36415; 80048; 85025

== ENCOUNTER 2020-11-07 13:08 | Outpatient (CLI) | payer MEDICARE ==
[~2020-11-07] VITALS: Ht 162 cm; Wt 77.0 kg
[2020-11-07 13:11] VITALS: BP 147/87
[2020-11-07] MEDS ORDERED: diphenhydrAMINE 50 MG/ML INJ (BENADRYL) IV PRN (13:15)
[2020-11-07] MEDS ORDERED: EPINEPHrine INJECTION 1 MG/ML AMP IM PRN (13:15)
[2020-11-07] MEDS ORDERED: BAMLANIVIMAB 700 MG in NS 200 ML IV ONE (13:15)
[2020-11-07 15:10] VITALS: BP 142/79
== END 2020-11-07 15:10 ==
LOC: INFUSION 13:08
PROVIDERS: ATTEND Nurse Practitioner Family
DX: U07.1 COVID-19 (principal); E11.22 Type 2 diabetes mellitus with diabetic chronic kidney disease; I12.9 Hypertensive chronic kidney disease with stage 1 through stage 4 chronic kidney disease, or unspecified chronic kidney disease; N18.2 Chronic kidney disease, stage 2 (mild); I25.2 Old myocardial infarction; E78.5 Hyperlipidemia, unspecified; F32.9 Major depressive disorder, single episode, unspecified

== ENCOUNTER 2020-11-14 09:30 | Inpatient (IN) | payer MEDICARE ==
[~2020-11-14] VITALS: Ht 162.6 cm; Wt 72.8 kg
--- NOTE | 2020-11-14 09:52 | ED General ---
General Chief Complaint: General Problems/Pain Stated Complaint: WEAKNESS,N/V History of Present Illness Date Seen by Provider: Nov 14, 2020 Time Seen by Provider: 09:49 Initial Comments 70 year-old female presents with some generalized weakness and nausea vomiting and decreased appetite. Patient reports that she just finished Covid isolation protocols from illness about 2 weeks ago. She did receive monoclonal antibodies about a week ago. She reports minimal improvement following the monoclonal antibodies. She states that she has had decreased appetite and inability to eat throughout her husdon with the virus. She comes in today because she is just feeling worse especially with her nausea. She denies any diarrhea. She has some occasional mild shortness of breath. No cough or fevers. No chest pain Allergies and Home Medications Allergies Coded Allergies: clopidogrel (Verified Allergy, Severe, BLOOD CLOTS, 11/27/18) Penicillins (Verified Allergy, Mild, RASH, 11/27/18) carisoprodol (Verified Allergy, Mild, RASH, 11/27/18) cephalexin (Verified Allergy, Mild, RASH, 11/27/18) ketorolac (Verified Allergy, Mild, RASH, 11/27/18) prochlorperazine (Verified Allergy, Mild, RASH, 11/27/18) Carbamates (Verified Allergy, Unknown, Rash, 05/28/19) Home Medications Amlodipine Besylate 5 Mg Tablet, 5 MG PO DAILY, (Reported) Aspirin 81 Mg Tablet.dr, 81 MG PO DAILY Prescribed by: OLIVE ISAAC on 09/06/19 1527 Atorvastatin Calcium 40 Mg Tablet, 40 MG PO HS, (Reported) Baclofen 10 Mg Tablet, 10 MG PO TID PRN for MUSCLE SPASMS, (Reported) Benzonatate 100 Mg Capsule, 100 MG PO TID PRN for COUGH Prescribed by: RAPHAEL DUNCAN on 10/07/202050 Brimonidine Tartrate 5 Ml Btl, 1 DROP OU TID, (Reported) 0.15% Carboxymethylcellulos/Glycerin 10 Ml Drops.gel, 1 DROP OD TID, (Reported) USE RIGHT BEFORE BRIMONIDINE EYE DROPS Cholecalciferol (Vitamin D3) 1,000 Unit Capsule, 1,000 UNIT PO DAILY, (Reported) Codeine/Butalbital/ASA/Caffein 1 Each Capsule, 1 CAP PO TID PRN for MIGRAINE, (Reported) Duloxetine HCl 30 Mg Capsule.dr, 30 MG PO DAILY, (Reported) TAKE ALONG WITH 60MG CAP FOR A TOTAL DAILY DOSE OF 90MG Duloxetine HCl 60 Mg Capsule.dr, 60 MG PO DAILY, (Reported) TAKES ALONG WITH 30MG CAPSULE FOR A TOTAL DAILY DOSE OF 90MG Folic Acid 1 Mg Tablet, 1 MG PO DAILY, (Reported) Furosemide 40 Mg Tablet, 40 MG PO DAILY, (Reported) Gabapentin 300 Mg Capsule, 300 MG PO TID, (Reported) LAST FILLED #90 07-09-19 Glipizide 5 Mg Tablet, 2.5 MG PO DAILY, (Reported) TAKES 1/2 (5MG) TABLET Hydrocodone Bit/Acetaminophen 1 Each Tablet, 1 EA PO Q4H PRN for PAIN-MODERATE (5-7) Prescribed by: OLIVE ISAAC on 09/06/191526 Hydroxychloroquine Sulfate 200 Mg Tablet, 200 MG PO BID, (Reported) L. Acidophilus/Pectin, [place] 1 Each Capsule, 2 EACH PO QID Prescribed by: RAPHAEL DUNCAN on 10/07/202050 Loperamide HCl 2 Mg Tablet, 2 MG PO Q4H PRN for DIARRHEA Prescribed by: JARED ODELL on 09/30/20 152 Metoprolol Succinate 100 Mg Tab.er.24h, 100 MG PO DAILY, (Reported) Ondansetron 4 Mg Tab.rapdis, 4 MG PO Q4H PRN for NAUSEA/VOMITING-1ST LINE, (R eported) Ondansetron 8 Mg Tab.rapdis, 8 MG PO Q6H PRN for NAUSEA/VOMITING Prescribed by: JARED ODELL on 09/30/20 152 Ondansetron 8 Mg Tab.rapdis, 8 MG PO Q6H Prescribed by: RAPHAEL DUNCAN on 10/07/202050 Oxycodone HCl 15 Mg Tab.er.12h, 15 MG PO Q12HR Prescribed by: OLIVE ISAAC on 09/06/191526 Pantoprazole Sodium 40 Mg Tablet.dr, 40 MG PO DAILY, (Reported) Ropinirole HCl 1 Mg Tablet, 1 MG PO DAILY, (Reported) Ropinirole HCl 1 Mg Tablet, 2 MG PO HS, (Reported) TAKES 2 (1MG) TABLETS Topiramate 25 Mg Tablet, 25 MG PO HS, (Reported) Topiramate 50 Mg Tablet, 75 MG PO DAILY, (Reported) TAKE 1 & 1/2 OF 50MG TAB Tramadol HCl 50 Mg Tablet, 50-100 MG PO QID PRN for PAIN-MODERATE (5-7), (Reported) DOES NOT TAKE IF TAKING OTHER PRESCRIPTION PAIN MEDICATION Patient Home Medication List Home Medication List Reviewed: Yes Review of Systems Review of Systems Constitutional: No chills, No fever; malaise, weakness Respiratory: No cough, No short of breath Gastrointestinal: No abdominal pain, No diarrhea; loss of appetite, nausea, vomiting Musculoskeletal: no symptoms reported Psychiatric/Neurological: No Symptoms Reported Hematologic/Lymphatic: No Symptoms Reported Immunological/Allergic: no symptoms reported Past Vtwnrhc-Alycfm-Qhzgws Hx Past Med/Social Hx: Reviewed Nursing Past Med/Soc Hx Patient Social History 2nd Hand Smoke Exposure: No Recent Hopitalizations: Yes Immunizations Up To Date Tetanus Booster (TDap): Unknown Date of Pneumonia Vaccine: Jul 29, 2017 Date of Influenza Vaccine: Jun 30, 2019 Seasonal Allergies Seasonal Allergies: No Past Medical History Surgeries: Yes (R CTR, espohageal ligation x2, Hernia, L RCR, L TKR, laparotomy, MRSA infec) Abdominal, Breast, Cardiac, Coronary Stent, Hysterectomy, Joint Replacement, Oophorectomy, Orthopedic, Thyroidectomy Respiratory: No Currently Using CPAP: No Currently Using BIPAP: No Cardiac: Yes (HX HEART CATH-STENT) Coronary Artery Disease, Heart Attack, High Cholesterol, Hypertension Neurological: Yes Headaches /Migraines, Neuropathy 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: Hysterectomy, Menopausal Sexually Transmitted Disease: No HIV/AIDS: No Genitourinary: Yes (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, STAGE 2-kidneY DISEASE ) Bladder Infection, Renal Failure Gastrointestinal: Yes (HX GI BLEED, zenkers syndrome-chokes easily, hx hep A) Abdominal Hernia, Gastroesophageal Reflux, Hepatitis Musculoskeletal: Yes (OSTEOARTHRITIS, BULGING DISCS) Arthritis, Chronic Back Pain Endocrine: Yes (partial thyroidectomy) Hypothyroidsim, Diabetes, Non-Insulin dep HEENT: Yes (GLASSES, UPPER DENTURES) Loss of Vision: Bilateral Cancer: Yes Breast Did You Recieve Any Treatments: Yes What Type of Treatment Did You: Radiation, Surgical Intervention Psychosocial: No Integumentary: No Blood Disorders: Yes (IRON DEFFICIENCY ANEMIA-GETS IRON INFUSIONS) Adverse Reaction/Blood Tranf: No (HAS HAD BLOOD WITH NO REACTION) Family Medical History Hypertension G8 BROTHER Not obtainable due to adoption 19 FATHER No Pertinent Family Hx ADDITIONAL PAST SURGICAL HISTORY -ZENKER'S DIVERTICULUM SURGERY X 2 -ABDOMINAL HERNIA REPAIR WITH MESH -MESH REMOVAL AND LY8IS OF ADHESIONS -HYST/BSO -LEFT BREAST LUMPECTOMY -CARDIAC CATH WITH STENT X 1 2005 -PORT LEFT CHEST -RIGHT SHOULDER REPLACEMENT Physical Exam Vital Signs Vital Signs - First Documented 11/14/20 09:45 Temp 36.9 Pulse 133 Resp 24 B/P (MAP) 138/87 (104) Pulse Ox 95 O2 Delivery Room Air Capillary Refill : Height, Weight, BMI Height: 5'4.00" Weight: 216lbs. 4.2oz. 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 Norm as Tested Skin: Normal Color, Warm/Dry Progress/Results/Core Measures Suspected Sepsis SIRS Temperature: Pulse: Respiratory Rate: Laboratory Tests 11/14/20 09:53: White Blood Count 6.6 Blood Pressure / Mean: Laboratory Tests 11/14/20 09:53: Platelet Count 278 11/14/20 10:00: Creatinine 1.30, Total Bilirubin 0.3 Results/Orders Lab Results Laboratory Tests Test 11/14/20 09:53 11/14/20 10:00 11/14/20 11:18 Range/Units White Blood Count 6.6 4.3-11.0 10^3/uL Red Blood Count 4.74 3.80-5.11 10^6/uL Hemoglobin 13.6 11.5-16.0 g/dL Hematocrit 42 35-52 % Mean Corpuscular Volume 88 80-99 fL Mean Corpuscular Hemoglobin 29 25-34 pg Mean Corpuscular Hemoglobin Concent 33 32-36 g/dL Red Cell Distribution Width 12.6 10.0-14.5 % Platelet Count 278 130-400 10^3/uL Mean Platelet Volume 10.0 9.0-12.2 fL Immature Granulocyte % (Auto) 1 % Neutrophils (%) (Auto) 62 42-75 % Lymphocytes (%) (Auto) 24 12-44 % Monocytes (%) (Auto) 13 H 0-12 % Eosinophils (%) (Auto) 0 0-10 % Basophils (%) (Auto) 0 0-10 % Neutrophils # (Auto) 4.1 1.8-7.8 10^3/uL Lymphocytes # (Auto) 1.6 1.0-4.0 10^3/uL Monocytes # (Auto) 0.9 0.0-1.0 10^3/uL Eosinophils # (Auto) 0.0 0.0-0.3 10^3/uL Basophils # (Auto) 0.0 0.0-0.1 10^3/uL Immature Granulocyte # (Auto) 0.0 0.0-0.1 10^3/uL Sodium Level 139 135-145 MMOL/L Potassium Level 3.1 L 3.6-5.0 MMOL/L Chloride Level 104 98-107 MMOL/L Carbon Dioxide Level 20 L 21-32 MMOL/L Anion Gap 15 H 5-14 MMOL/L Blood Urea Nitrogen 21 H 7-18 MG/DL Creatinine 1.30 0.60-1.30 MG/DL Estimat Glomerular Filtration Rate 40 BUN/Creatinine Ratio 16 Glucose Level 172 H 70-105 MG/DL Calcium Level 7.4 L 8.5-10.1 MG/DL Corrected Calcium 7.7 L 8.5-10.1 MG/DL Magnesium Level 1.8 1.6-2.4 MG/DL Total Bilirubin 0.3 0.1-1.0 MG/DL Aspartate Amino Transf (AST/SGOT) 19 5-34 U/L Alanine Aminotransferase (ALT/SGPT) 17 0-55 U/L Alkaline Phosphatase 118 40-136 U/L C-Reactive Protein High Sensitivity 5.16 H 0.00-0.50 MG/DL Total Protein 6.8 6.4-8.2 GM/DL Albumin 3.6 3.2-4.5 GM/DL Lipase 96 H 8-78 U/L Urine Color YELLOW Urine Clarity CLEAR Urine pH 5.5 5-9 Urine Specific [place] >=1.030 1.016-1.022 Urine Protein 1+ H NEGATIVE Urine Glucose (UA) NEGATIVE NEGATIVE Urine Ketones TRACE H NEGATIVE Urine Nitrite NEGATIVE NEGATIVE Urine Bilirubin 1+ H NEGATIVE Urine Urobilinogen 0.2 < = 1.0 MG/DL Urine Leukocyte Esterase NEGATIVE NEGATIVE Urine RBC (Auto) NEGATIVE NEGATIVE Urine RBC RARE /HPF Urine WBC 2-5 /HPF Urine Squamous Epithelial Cells 5-10 /HPF Urine Crystals PRESENT H /LPF Urine Amorphous Sediment MOD TATA URATES H /LPF Urine Bacteria FEW H /HPF Urine Casts PRESENT /LPF Urine Hyaline Casts 2-5 H /LPF Urine Granular Casts 0-2 H /LPF Urine Mucus NEGATIVE /LPF Urine Culture Indicated YES My Orders Orders - YIP,DAVID L DO Ondansetron Injection (Zofran Injectio (11/14/20 10:00) Lactated Ringers (Lr 1000 Ml Iv Solution (11/14/20 09:53) Famotidine Injection (Pepcid Injection) (11/14/20 09:53) Ed Iv/Invasive Line Start (11/14/20 09:53) Ekg Tracing (11/14/20 09:53) Acute Abd Series (11/14/20 09:53) Cbc With Automated Diff (11/14/20 09:53) Comprehensive Metabolic Panel (11/14/20 09:53) Hs C Reactive Protein (11/14/20 09:53) Lipase (11/14/20 09:53) Magnesium (11/14/20 09:53) Ua Culture If Indicated (11/14/20 09:53) Urine Culture (11/14/20 11:18) Ns Iv 1000 Ml (Sodium Chloride 0.9%) (11/14/20 12:01) Cefepime Injection (Maxipime Injection) (11/14/20 12:15) Doxycycline Injection (Vibramycin Inject (11/14/20 12:15) Medications Given in ED Current Medications Medications Dose Ordered Sig/Ana María Route Start Time Stop Time Status Last Admin Dose Admin Ondansetron HCl 4 mg ONCE ONCE IVP 11/14/20 10:00 11/14/20 10:01 DC 11/14/20 10:12 4 MG Vital Signs/I&O 11/14/20 09:45 Temp 36.9 Pulse 133 Resp 24 B/P (MAP) 138/87 (104) Pulse Ox 95 O2 Delivery Room Air Capillary Refill : ECG Initial ECG Impression Date: Nov 14, 2020 Initial ECG Impression Time: 10:10 Initial ECG Rate: 130 Initial ECG Rhythm: S.Tach Initial ECG Intervals: Normal Comment sinus tachy Diagnostic Imaging Diagonstic Imaging: Xray Plain Films/CT/US/NM/MRI: chest, abdomen Comments [facility], [place] NAME: KEO AGUIRRE [facility] REC#: [id number] PT STATUS: REG ER : 1950 PHYSICIAN: DAVID YIP DO ADMIT DATE: 11/14/20/ER Draft Date of Exam:11/14/20 ACUTE ABD SERIES INDICATION: Weak with dehydration and nausea. Comparison with 10/07/2020. FINDINGS: Upright chest shows patchy perihilar infiltrates bilaterally with some atelectasis in the right perihilar region. No pneumothorax or pleural effusion. Heart is not enlarged. Port-A-Cath on the left in good position. Upright spine and abdomen shows a normal gas and stool pattern throughout the small bowel and colon without evidence of obstruction. No evidence of constipation. No organomegaly. Aorta is densely calcified without evidence of aneurysm. Moderate degenerative changes noted of the hips. IMPRESSION: 1. Patchy bilateral infiltrates in the lungs with some right perihilar atelectasis. 2. The bowel gas pattern appears normal without evidence of obstruction or constipation. Dictated on workstation # [id number] Dict: 11/14/20 1049 Trans: 11/14/20 1054 CV [id number] Interpreted by: VERONICA DAUGHRETY MD Electronically signed by: Departure Communication (Admissions) Time/Spoke to Admitting Phy: 12:03 Okay to admit, cefepime 1 g every 12 hours, doxycycline 100 mg IV twice daily. Normal saline 100 mL an hour. Impression Primary Impression: Generalized weakness Additional Impressions: Pneumonia Qualified Codes: J18.9 - Pneumonia, unspecified organism Mild dehydration Disposition: ADMITTED INPATIENT Condition: Stable Admissions Decision to Admit Reason: Admit from ER (General) Decision to Admit/Date: Nov 14, 2020 Time/Decision to Admit Time: 12:03 Departure-Patient Inst. Referrals: JAVIER MOSS (PCP/Family) Primary Care Physician DAVID YIP DO Nov 14, 2020 09:52
[2020-11-14] MEDS ORDERED: LACTATED RINGERS 1,000 ML IV STA (09:53)
[2020-11-14] MEDS ORDERED: FAMOTIDINE 20MG/2ML IV (PEPCID) IV STA (09:53)
[2020-11-14] MEDS ORDERED: ONDANSETRON 4 MG/2 ML (SDV) Z0FRAN IVP ONE (10:00)
[2020-11-14 10:06] LABS: BASOPHILS % (AUTO) 0 % (0-10); EOSINOPHILS % (AUTO) 0 % (0-10); HEMATOCRIT 42 % (35-52); HEMOGLOBIN 13.6 g/dL (11.5-16.0); LYMPHOCYTES # (AUTO) 1.6 10^3/uL (1.0-4.0); LYMPHOCYTES % (AUTO) 24 % (12-44); MEAN CORPUSCULAR HEMOGLOBIN 29 pg (25-34); MEAN CORPUSCULAR HGB CONC 33 g/dL (32-36); MEAN CORPUSCULAR VOLUME 88 fL (80-99); MONOCYTES # (AUTO) 0.9 10^3/uL (0.0-1.0); MONOCYTES % (AUTO) 13 % (0-12); NEUTROPHILS # (AUTO) 4.1 10^3/uL (1.8-7.8); NEUTROPHILS % (AUTO) 62 % (42-75); PLATELET COUNT 278 10^3/uL (130-400); WHITE BLOOD COUNT 6.6 10^3/uL (4.3-11.0)
[2020-11-14 10:22] LABS: ALBUMIN 3.6 GM/DL (3.2-4.5); POTASSIUM 3.1 MMOL/L (3.6-5.0)
[2020-11-14 10:23] LABS: CALCIUM 7.4 MG/DL (8.5-10.1)
[2020-11-14 10:25] LABS: TOTAL PROTEIN 6.8 GM/DL (6.4-8.2)
[2020-11-14 10:26] LABS: BILIRUBIN,TOTAL 0.3 MG/DL (0.1-1.0)
[2020-11-14 10:28] LABS: CREATININE SERUM 1.3 MG/DL (0.60-1.30)
[2020-11-14 10:31] LABS: MAGNESIUM 1.8 MG/DL (1.6-2.4)
--- NOTE | 2020-11-14 10:54 | Diagnostic Imaging Report ---
INDICATION: Weak with dehydration and nausea. Comparison with 10/07/2020. FINDINGS: Upright chest shows patchy perihilar infiltrates bilaterally with some atelectasis in the right perihilar region. No pneumothorax or pleural effusion. Heart is not enlarged. Port-A-Cath on the left in good position. Upright spine and abdomen shows a normal gas and stool pattern throughout the small bowel and colon without evidence of obstruction. No evidence of constipation. No organomegaly. Aorta is densely calcified without evidence of aneurysm. Moderate degenerative changes noted of the hips. IMPRESSION: 1. Patchy bilateral infiltrates in the lungs with some right perihilar atelectasis. 2. The bowel gas pattern appears normal without evidence of obstruction or constipation. Dictated by: Dictated on workstation # [id number]
[2020-11-14 11:30] LABS: BILIRUBIN,URINE 1+ (NEGATIVE); CLARITY,URINE CLEAR; COLOR,URINE YELLOW; GLUCOSE, URINE (UA) NEGATIVE (NEGATIVE); KETONES,URINE TRACE (NEGATIVE); LEUKOCYTE ESTERASE ,URINE NEGATIVE (NEGATIVE); NITRITE,URINE NEGATIVE (NEGATIVE); PH,URINE 5.5 (5-9); PROTEIN,URINE 1+ (NEGATIVE)
[2020-11-14 11:47] LABS: RBC,URINE RARE /HPF
[2020-11-14 11:48] LABS: AMORPHOUS SEDIMENT,UR MOD AMOR URATES /LPF; BACTERIA,URINE FEW /HPF; GRANULAR CASTS,URINE 0-2 /LPF
[2020-11-14] MEDS ORDERED: NS IV 1000 ML 1,000 ML IV STA (12:01)
[2020-11-14] MEDS ORDERED: DOXYCYCLINE INJECTION 100 MG in NS (IVPB) 100 ML IV ONE (12:15)
[2020-11-14] MEDS ORDERED: CEFEPIME INJECTION 1,000 MG in WATER (STERILE) FOR INJECTION 10 ML IV ONE (12:15)
--- NOTE | 2020-11-14 13:10 | NUR ---
PT REPORT GIVEN TO JOSE DAVID NEAL. ROOM NOT READY.
--- NOTE | 2020-11-14 14:15 | NUR ---
CALLED TO CHECK ON ROOM TO TRANSFER PT. ROOM IS NOW READY PER DARY.
--- NOTE | 2020-11-14 14:20 | NUR ---
KEO AGUIRRE admitted to room 413-1, with an admitting diagnosis of PNEUMONIA, WEAKNESS AND DEHYDRATION, on 11/14/20 from ED via WHEELCHAIR, accompanied by ED STAFF. KEO AGUIRRE introduced to surroundings, call light, bed controls, phone, TV, temperature control, lights, meal times, smoking policy, visitor policy, side rail policy, bathrooms and showers. Patient Rights given to patient in the handbook. KEO AGUIRRE verbalizes understanding that [facility] is not responsible for the loss or damage to any personal effects or valuables that are kept in the patients possession during their hospitalization. The following Patient Care Plans were discussed with the PATIENT: Discharge Planning,PNEUMONIA, DEHYDRATION and KNOWLEDGE DEFICIT. KEO AGUIRRE verbalizes understanding of Interdisciplinary Patient Education. Patient and/or family were informed about the Rapid Response Team and its purpose.
[2020-11-14 14:40] VITALS: BP 139/66
[2020-11-14] MEDS: NS IV 1000 ML 1,000 ML IV SCH (14:56)
[2020-11-14] MEDS ORDERED: [UNRECOGNIZED DRUG - CODE] PO (15:27)
[2020-11-14] MEDS ORDERED: INSU100I29 SQ (15:27)
[2020-11-14] MEDS ORDERED: PRED2.5T PO (15:27)
[2020-11-14] MEDS ORDERED: BUTA1CAP42 PO (15:27)
[2020-11-14] MEDS ORDERED: CHOL200014 PO (15:27)
[2020-11-14] MEDS ORDERED: INSU100V5 SQ (15:27)
[2020-11-14] MEDS ORDERED: AMLO-251 PO (15:27)
--- NOTE | 2020-11-14 15:32 | NUR ---
SPOKE WITH THE PT , WENT THRU THE EXT MED HISTORY, CALLED [facility] TO COMPLETE THE MED REC ACCORDING TO THE PT SHE TAKES TORADOL PRN, HOWEVER NEITHER OF HER LISTED PHARMACIES HAS THIS ON THE LIST. FOR THIS REASON I DID NOT INCLUDE IT ON THE MED REC [facility] FILLED THE FOLLOWIN09-22-2020 DULOXETINE 30MG #90/90DS 09-22-2020 DULOXETINE 60MG #90/90DS 09-22-2020 LEVEMIR FLEXTOUCH #5 PENS 10-28-2020 BUTALBITAL/ APAP/CAFFEINE/CODEINE 50/325/40/30 #28 METFORMIN ER 500MG IS LISTED ON THE EXT MED HISTORY HOWEVER PT SAYS SHE IS NOT CURRENTLY TAKING AND IT HAS BEEN AT LEAST A MONTH SINCE SHE HAS TAKEN A DOSE OTC MEDS: VIT D
[2020-11-14 16:00] VITALS: BP_SYST 138; BP_SYST 171; BP_DIAS 77; BP_DIAS 87
[2020-11-14] MEDS ORDERED: ALPRAZolam 0.25 MG (XANAX) TAB PO PRN (16:15)
[2020-11-14] MEDS ORDERED: BUTALBITAL PO PRN (16:15)
[2020-11-14] MEDS ORDERED: MELATONIN 3 MG TABLET PO PRN (16:15)
[2020-11-14] MEDS ORDERED: diphenhydrAMINE 25 MG TAB (BENADRYL) PO PRN (16:15)
[2020-11-14] MEDS ORDERED: DOCUSATE SODIUM 100 MG (COLACE) CAP PO PRN (16:15)
[2020-11-14] MEDS ORDERED: ASA PO PRN (16:15)
[2020-11-14] MEDS ORDERED: CALCIUM CARBONATE 500 MG (TUMS) TAB.CHEW PO PRN (16:15)
[2020-11-14] MEDS ORDERED: HYDROcodone/APAP 5 MG/325 MG (LORTAB) TAB PO PRN (16:15)
[2020-11-14] MEDS ORDERED: [UNRECOGNIZED DRUG - OTHER] PO PRN (16:15)
[2020-11-14] MEDS ORDERED: INSULIN DETEMIR 8 UNIT SQ PRN (16:15)
[2020-11-14] MEDS ORDERED: ACETAMINOPHEN 500 MG TAB (TYLENOL) PO PRN (16:15)
[2020-11-14] MEDS ORDERED: CAFFEIN PO PRN (16:15)
[2020-11-14] MEDS ORDERED: CODEINE PO PRN (16:15)
[2020-11-14] MEDS ORDERED: RT-ALBUTEROL SULF 2.5 MG/3 ML PRE-MIX VIAL INH PRN (17:00)
[2020-11-14] MEDS: ACET/BUTAL/CAFF (FIORICET) TAB PO PRN (17:20)
[2020-11-14] MEDS: HYDROXYCHLOROQUINE 200 MG (PLAQUENIL) TAB PO SCH (17:20)
[2020-11-14] MEDS: PROMETHAZINE INJ 25 MG/ML (PHENERGAN) AMP IV PRN (17:28)
--- NOTE | 2020-11-14 18:03 | NUR ---
ICU TELEMETRY CALLED FOR ELEVATED HEART RATE. PATIENT IS IN THE MIDDLE OF A COUGHING FIT. WILL CONTINUE TO MONITOR AND CHECK HEART RATE WHEN HER COUGHING STOPS
--- NOTE | 2020-11-14 18:12 | NUR ---
PATIENT HAS A CHRONIC PROBLEM WITH CHOKING WHILE EATING WHICH CAUSES HER TO COUGH. HEART RATE IS DOWN TO AROUND 130. WILL CONTINUE TO MONITOR
[2020-11-14 19:18] VITALS: BP 130/62
[2020-11-14] MEDS ORDERED: TOPIRAMATE 75 MG PO SCH (21:00)
[2020-11-14] MEDS: toPIRamate 25 MG (TOPAMAX) TAB PO SCH (21:28)
[2020-11-14] MEDS: SENNA W/DOCUSATE (SENOKOT S) TABLET PO SCH (21:28)
[2020-11-14] MEDS: ENOXAPARIN 40 MG/0.4 ML (LOVENOX) SYR SC SCH (21:28)
[2020-11-14] MEDS: inSUlin ASPART (NovoLOG) 1 UNIT/0.01 ML (CHARGE PER UNIT) SC SCH (21:29)
[2020-11-14] MEDS: RT-ALBUTEROL SULF 2.5 MG/3 ML PRE-MIX VIAL INH SCH (21:42)
[2020-11-15] VITALS (7 sets, daily range): BP systolic 127–168; BP diastolic 60–89
[2020-11-15] MEDS ORDERED: CEFEPIME 1,000 MG/SWFI 10 ML IV PUSH IV SCH ×2
[2020-11-15] MEDS: DOXYCYCLINE INJECTION 100 MG in NS (IVPB) 100 ML IV SCH ×2 (00:32→12:19)
[2020-11-15] MEDS: NS IV 1000 ML 1,000 ML IV SCH ×3 (00:32→22:00)
[2020-11-15] MEDS: ACET/BUTAL/CAFF (FIORICET) TAB PO PRN ×2 (04:23→16:32)
[2020-11-15] MEDS: ACETAMINOPHEN 325 MG TABLET PO PRN (04:24)
[2020-11-15 04:44] LABS: BASOPHILS % (AUTO) 0 % (0-10); EOSINOPHILS % (AUTO) 0 % (0-10); HEMATOCRIT 37 % (35-52); HEMOGLOBIN 11.9 g/dL (11.5-16.0); LYMPHOCYTES # (AUTO) 1.5 10^3/uL (1.0-4.0); LYMPHOCYTES % (AUTO) 31 % (12-44); MEAN CORPUSCULAR HEMOGLOBIN 29 pg (25-34); MEAN CORPUSCULAR HGB CONC 32 g/dL (32-36); MEAN CORPUSCULAR VOLUME 89 fL (80-99); MEAN PLATELET VOLUME 9.9 fL (9.0-12.2); MONOCYTES # (AUTO) 0.5 10^3/uL (0.0-1.0); MONOCYTES % (AUTO) 11 % (0-12); NEUTROPHILS # (AUTO) 2.7 10^3/uL (1.8-7.8); NEUTROPHILS % (AUTO) 57 % (42-75); PLATELET COUNT 233 10^3/uL (130-400); WHITE BLOOD COUNT 4.8 10^3/uL (4.3-11.0)
[2020-11-15 04:52] LABS: ALBUMIN 3.1 GM/DL (3.2-4.5)
[2020-11-15 04:53] LABS: POTASSIUM 3.1 MMOL/L (3.6-5.0)
[2020-11-15 04:54] LABS: CALCIUM 6.9 MG/DL (8.5-10.1)
[2020-11-15 04:55] LABS: TOTAL PROTEIN 5.7 GM/DL (6.4-8.2)
[2020-11-15 04:57] LABS: BILIRUBIN,TOTAL 0.3 MG/DL (0.1-1.0)
[2020-11-15 04:59] LABS: CREATININE SERUM 1.05 MG/DL (0.60-1.30)
[2020-11-15] MEDS: inSUlin ASPART (NovoLOG) 1 UNIT/0.01 ML (CHARGE PER UNIT) SC SCH ×4 (06:09→20:19)
[2020-11-15] MEDS: predniSONE 5 MG TAB PO SCH (06:55)
[2020-11-15] MEDS: HYDROXYCHLOROQUINE 200 MG (PLAQUENIL) TAB PO SCH ×2 (08:36→17:33)
[2020-11-15] MEDS: amLODIPine 10 MG (NORVASC) TAB PO SCH (08:36)
[2020-11-15] MEDS: DULoxetine 30 MG (CYMBALTA) CAP PO SCH (08:36)
[2020-11-15] MEDS: FOLIC ACID 1 MG TAB PO SCH (08:36)
[2020-11-15] MEDS: toPIRamate 25 MG (TOPAMAX) TAB PO SCH ×2 (08:37→19:49)
[2020-11-15] MEDS: meTOprolol SUCCINATE 100 MG (TOPROL XL) TAB PO SCH (08:37)
[2020-11-15] MEDS: PANTOPRAZOLE 40 MG (PROTONIX) TAB PO SCH (08:37)
[2020-11-15] MEDS: ENOXAPARIN 40 MG/0.4 ML (LOVENOX) SYR SC SCH ×2 (08:38→19:49)
[2020-11-15] MEDS: VITAMIN D3 25 MCG (1,000 UNITS) TABLET PO SCH (08:38)
[2020-11-15] MEDS: SENNA W/DOCUSATE (SENOKOT S) TABLET PO SCH ×2 (08:44→19:50)
[2020-11-15] MEDS ORDERED: NON-FORMULARY MEDICATION 1 EA EA (Cholecalciferol (Vitamin D3) (Vitamin D3) 50 MCG) PO SCH (09:00)
[2020-11-15] MEDS ORDERED: NON-FORMULARY MEDICATION 1 EA EA (Duloxetine HCl (Cymbalta) 60 MG) PO SCH (09:00)
[2020-11-15] MEDS ORDERED: PREDNISONE 2.5 MG PO SCH (09:00)
[2020-11-15] MEDS ORDERED: DULoxetine 30 MG (CYMBALTA) CAP PO SCH (09:00)
--- NOTE | 2020-11-15 09:28 | History & Physical-Hospitalist ---
History of Present Illness HPI/Chief Complaint CC: Nausea and vomiting and diarrhea HPI: This is a 70yoWF known to me from prior hospital stays who presents after a two month course of nausea and vomiting impaction that started at the first part of September, then she was exposed to Covid, she was positive and essentially asymptomatic except for nausea and vomiting who continued to have issues. She started running a fever, found to have pneumonia and profound dehydration with tachycardia and she has since become much improved. IV fluids still going at 100cc. We will initiate PT and OT and inpatient rehab evaluation in order to start her recovery. Source: patient, RN/MD, old records Exam Limitations: no limitations Date Seen 11/15/20 Time Seen by a Provider: 10:00 Attending Physician Ai Barnes David M Pa Referring Physician Date of Admission Nov 14, 2020 at 12:10 Home Medications & Allergies Home Medications Reviewed patient Home Medication Reconciliation performed by pharmacy medication reconciliations lock technician and/or nursing. Patients Allergies have been reviewed. Allergies Allergies Coded Allergies clopidogrel (Verified Allergy, Severe, BLOOD CLOTS, 11/27/18) Penicillins (Verified Allergy, Mild, RASH, 11/27/18) carisoprodol (Verified Allergy, Mild, RASH, 11/27/18) cephalexin (Verified Allergy, Mild, RASH, 11/27/18) ketorolac (Verified Allergy, Mild, RASH, 11/27/18) prochlorperazine (Verified Allergy, Mild, RASH, 11/27/18) Carbamates (Verified Allergy, Unknown, Rash, 05/28/19) Past Xfxthzc-Iwndst-Awbyhp Hx Past Med/Social Hx: Reviewed Nursing Past Med/Soc Hx, Reviewed and Corrections made Patient Social History Marrital Status: single Employed/Student: retired Alcohol Use: Denies Use Recreational Drug Use: No Smoking Status: Never a Smoker 2nd Hand Smoke Exposure: No Recent Foreign Travel: No Contact w/other who traveled: No Recent Hopitalizations: Yes Recent Infectious Disease Expo: No Immunizations Up To Date Tetanus Booster (TDap): Unknown Date of Pneumonia Vaccine: Jul 29, 2017 Date of Influenza Vaccine: Jun 30, 2020 Seasonal Allergies Seasonal Allergies: No Past Medical History Surgeries: Abdominal, Breast, Cardiac, Coronary Stent, Hysterectomy, Joint Replacement, Oophorectomy, Orthopedic, Thyroidectomy Respiratory: COPD Currently Using CPAP: No Currently Using BIPAP: No Cardiac: Coronary Artery Disease, Heart Attack, High Cholesterol, Hypertension Neurological: Headaches /Migraines, Neuropathy Sexually Transmitted Disease: No HIV/AIDS: No Hysterectomy, Menopausal Genitourinary: Bladder Infection, Renal Failure Gastrointestinal: Abdominal Hernia, Gastroesophageal Reflux, Hepatitis Musculoskeletal: Arthritis, Chronic Back Pain Endocrine: Hypothyroidsim, Diabetes, Non-Insulin dep Loss of Vision: Bilateral Cancer: Breast Did You Recieve Any Treatments: Yes What Type of Treatment Did You: Radiation, Surgical Intervention History of Blood Disorders: Yes (IRON DEFFICIENCY ANEMIA-GETS IRON INFUSIONS) Adverse Reaction to Blood [place]: No (HAS HAD BLOOD WITH NO REACTION) Family History Hypertension G8 BROTHER Not obtainable due to adoption 19 FATHER No Pertinent Family Hx ADDITIONAL PAST SURGICAL HISTORY -ZENKER'S DIVERTICULUM SURGERY X 2 -ABDOMINAL HERNIA REPAIR WITH MESH -MESH REMOVAL AND LY8IS OF ADHESIONS -HYST/BSO -LEFT BREAST LUMPECTOMY -CARDIAC CATH WITH STENT X 1 2005 -PORT LEFT CHEST -RIGHT SHOULDER REPLACEMENT Review of Systems Constitutional: see HPI, malaise, weakness Gastrointestinal: diarrhea, loss of appetite, nausea, vomiting Physical Exam Physical Exam Vital Signs Vital Signs - First Documented 11/14/20 09:45 Temp 36.9 Pulse 133 Resp 24 B/P (MAP) 138/87 (104) Pulse Ox 95 O2 Delivery Room Air Capillary Refill : Less Than 3 Seconds Height, Weight, BMI Height: 5'4.00" Weight: 216lbs. 4.2oz. 98.916846xv; 28.85 BMI Method:Stated General Appearance: No Apparent Distress, Chronically ill Eyes: Right Eye Normal Inspection, Right Eye PERRL HEENT: PERRL/EOMI, Normal ENT Inspection, Pharynx Normal, Moist Mucous Mem branes Neck: Full Range of Motion, Normal Inspection, Non Tender Respiratory: Chest Non Tender, Lungs Clear, Normal Breath Sounds, No Accessory Muscle Use, No Respiratory Distress Cardiovascular: Regular Rate, Rhythm, No Edema, No Gallop, No JVD, No Murmur, Normal Peripheral Pulses Gastrointestinal: Normal Bowel Sounds, No Organomegaly, No Pulsatile Mass, Non Tender, Soft Back: Normal Inspection, No CVA Tenderness, No Vertebral Tenderness Extremity: Normal Capillary Refill, Normal Inspection, Normal Range of Motion, Non Tender, No Calf Tenderness, No Pedal Edema Neurologic/Psychiatric: Alert, Oriented x3, No Motor/Sensory Deficits, Normal Mood/Affect Skin: Normal Color, Warm/Dry Lymphatic: No Adenopathy Results Results/Procedures Labs Laboratory Tests 11/14/20 09:53 11/14/20 10:00 11/15/20 04:22 Patient resulted labs reviewed. Assessment/Plan Admission Diagnosis Assessment: Dehydration N/V/D from gastroenteritis CARMEL Severe debility from COVID-19 residual HTN CAD COPD Hypoxia baseline OA Plan: IVF Supportive care PT OT IRF? Admission Status: Inpatient Order (span 2 midnights) Reason for Inpatient Admission: CARMEL with dehydration Diagnosis/Problems Diagnosis/Problems (1) Nausea vomiting and diarrhea Status: Acute (2) 2019 novel coronavirus disease (COVID-19) Status: Acute (3) Mild dehydration Status: Acute (4) Generalized weakness Status: Acute (5) Pneumonia Status: Acute Qualifiers: Pneumonia type: due to unspecified organism Laterality: bilateral Lung location: lower lobe of lung Qualified Codes: J18.9 - Pneumonia, unspecified organism (6) Dehydration Status: Acute (7) Viral syndrome Status: Acute (8) Type 2 diabetes mellitus Status: Chronic (9) Normocytic anemia Status: Acute (10) Restless leg syndrome Status: Chronic (11) Renal insufficiency (12) Hyperlipidemia Status: Chronic (13) Essential hypertension Status: Chronic (14) Coronary artery disease Status: Chronic AI BARNES DO Nov 15, 2020 09:28
[2020-11-15] MEDS ORDERED: LOPERAMIDE 2 MG (IMODIUM) TABLET ONE (10:22)
[2020-11-15] MEDS: LOPERAMIDE 2 MG (IMODIUM) TABLET PO PRN (10:28)
[2020-11-15] MEDS: CEFEPIME 1,000 MG/SWFI 10 ML IV PUSH IV SCH ×4 (10:28→17:33)
--- NOTE | 2020-11-15 11:30 | Physical Therapy Evaluation ---
PT Evaluation-General Medical Diagnosis Admission Date Nov 14, 2020 at 12:10 Medical Diagnosis: pneumonia/dehydration Onset Date: Nov 14, 2020 Therapy Diagnosis Therapy Diagnosis: debility Height/Weight Height (Feet): 5 Height (Inches): 4.00 Weight (Pounds): 216 Weight (Ounces): 4.2 Precautions Precautions/Isolations: Fall Prevention, Standard Precautions Referral Physician: Molly Reason for Referral: Evaluation/Treatment Medical History Pertinent Medical History: Arthritis, CAD, DM, HTN, [place], OA, Renal Insufficiency Additional Medical History breast cancer Current History ER secondary to weakness/decreased appetitie/N&V (post Covid) Reviewed History: Yes Social History Home: Single Level Current Living Status: Alone Entry Into Home: Stairs With Railing PT Steps Into Home: 2 Prior Prior Level of Function SCALE: Activities may be completed with or without assistive devices. 6-Pamiyhwgqn-qxpnonz completes the activity by him/herself with no assistance from a helper. 5-Set-up or Clean-up Assistance-helper sets up or cleans up; patient completes activity. [place] assists only prior to or following the activity. 4-Supervision or Touching Assistance-helper provides verbal cues and/or touching/steadying and/or contact guard assistance as patient completes activity. Assistance may be provided throughout the activity or intermittently. 3-Partial/Moderate Assistance-helper does LESS THAN HALF the effort. [place] lifts, holds or supports trunk or limbs, but provides less than half the effort. 2-Substantial/Maximal Assistance-helper does MORE THAN HALF the effort. [place] lifts or holds trunk or limbs and provides more than half the effort. 5-Aiptirhvf-ehrkdo does ALL the effort. Patient does none of the effort to complete the activity. Or, the assistance of 2 or more helpers is required for the patient to complete the activity. If activity was not attempted, code reason: 7-Patient Refused. 9-Not Applicable-not attempted and the patient did not perform the activity before the current illness, exacerbation or injury. 10-Not Attempted due to Environmental Limitations-(lack of equipment, weather restraints, etc.). 88-Not Attempted due to Medical Conditions or Safety Concerns. Bed Mobility: 6 Transfers (B,C,W/C): 6 Gait: 6 Stairs: 6 Indoor Mobility (Ambulation): Independent Stairs: Independent Prior Devices Use: None Prior Device Use: has FWW for use if needed PT Evaluation-Current Subjective Patient agrees to PT. No c/o. Pain Numeric Pain Scale: 0-No Pain Location: No Pain Reported Objective Patient Orientation: Normal For Age Attachments: IV ROM/Strength ROM Lower Extremities bilateral LE WFL Strength Lower Extremities 4/5 grossly bilateral LE Integumentary/Posture Integumentary refer to nursing notes Bowel Incontinence: No Bladder Incontinence: No Posture kyphotic Neuromuscular (Tone, Coordination, Reflexes) grossly intact Sensory Vision: Wears Glasses Hearing: Functional Transfers Roll Left to Right (QC): 6 Sit to Lying (QC): 6 Lying to Sitting/Side of Bed(Q: 6 Sit to Stand (QC): 4 (SBA) Chair/Xhb-nm-Vxivp Xfer(QC): 4 (SBA) Toilet Transfer (QC): 4 (SBA) Gait Does the Patient Walk?: Yes Mode of Locomotion: Walk Anticipated Mode of Locomotion: Walk Walk 10 feet (QC): 4 (SBA) Walk 50 ft with 2 Turns(QC): 4 (SBA) Walk 150 ft (QC): 4 (SBA) Walking 10ft/uneven surface-QC: 4 (SBA) Distance: 475' Gait Assistive Device: FWW Comments/Gait Description safe and functional with no deviation Wheelchair Training Does the Pt Use a Wheelchair?: No Stairs #of Steps: 4 1 Step (curb) (QC): 4 (SBA) 4 Steps (QC): 4 (SBA) 12 Steps (QC): 9 Balance Sitting Static: Normal Sitting Dynamic: Normal Standing Static: Normal Standing Dynamic: Normal Picking up an Object (QC): 6 (seated position) Assessment/Needs 70 y.o. female, will be seen short term by skilled PT to address functional mobility to ensure safe return to home at maximum LOF. Rehab Potential: Fair PT Halfway Goals Slot Floorman Goals PT Halfway Goals Time Frame: Nov 25, 2020 Roll Left & Right (QC): 6 Sit to Lying (QC): 6 Lying-Sitting on Side/Bed(QC): 6 Sit to Stand (QC): 6 Chair/Tth-xh-Rsexa Xfer(QC): 6 Toilet Transfer (QC): 6 Car Transfer (QC): 6 Does the Patient Walk: Yes Walk 10 feet (QC): 6 Walk 50ft with 2 Turns (QC): 6 Walk 150 ft (QC): 6 Walking 10ft on Uneven Surface: 6 1 Step (curb) (QC): 6 4 Steps (QC): 6 12 Steps (QC): 9 Picking up an Object (QC): 6 (seated position) Does the Pt use WC or Scooter?: No PT Plan Treatment/Plan Treatment Plan: Continue Plan of Care Treatment Plan: Education, Functional Activity Tay, Functional Strength, Gait, Safety, Therapeutic Exercise, Transfers Treatment Duration: Nov 25, 2020 Frequency: 6 times per week Estimated Hrs Per Day: .25 hour per day Patient and/or Family Agrees t: Yes Discharge Recommendations Therapy Discharge Recommendati: Home & Family (home health) Time/GCodes Time In: 1045 Time Out: 1101 Total Billed Treatment Time: 16 Total Billed Treatment 1 visit EVModC 16 min NESHA CHOUDHURY PT Nov 15, 2020 11:30
[2020-11-15] MEDS: RT-ALBUTEROL SULF 2.5 MG/3 ML PRE-MIX VIAL INH SCH ×2 (12:53→18:38)
[2020-11-15] MEDS: ONDANSETRON 4 MG/2 ML (SDV) Z0FRAN IVP PRN ×2 (13:25→21:07)
--- NOTE | 2020-11-15 14:51 | NUR ---
"RD ASSESSMENT PMHx: CAD; hypercholesterolemia; HTN; renal failure; GERD; hepatitis; hypothyroidism; DM; PT INTERACTION: Pt was awake and pleasant during nutrition consult for MST score. Pt states current appetite is fair. Note PO intake 25% x1meal, per chart review. Pt states following a regular diet at home, and has no issues with chewing/swallowing food. Pt states some recent issues with nausea, vomiting, and diarrhea. Note last BM was 11/14, and pt currently on bowel regimen of senna BID, per chart review. Pt states recent 20# wt loss x6mon. Note recent 12# wt loss x4mon, per chart review. Pt states current DM management is good. Note unable to determine recent HbA1c, per chart review. Est. kcal needs: 7116-4893 kcal | 20-25 kcal/kg Est. Pro needs: 61-76 g Pro | 0.8-1.0 g Pro/kg PES STATEMENT: Inadequate oral intake (NI-2.1) related to loss of appetite, nausea, vomiting, and diarrhea, as evidenced by pt interview, and PO intake 25% x1meal. INTERVENTION: Continue with current diet order of CHO 75g/m 0snack diet. Add Glucerna (vary) to meals TID, for increased kcal intake. Provides 220 kcal and 10 g Pro per serving. Offered diet education on DM management, but pt declined at this time. Will continue to follow and reassess as pt needs, intake, and status change. Brent UMANA, MS RD LD [phone] cell"
--- NOTE | 2020-11-15 15:04 | Occupational Therapy Eval ---
OT Evaluation-General/PLF Medical Diagnosis Admission Date Nov 14, 2020 at 12:10 Medical Diagnosis: pneumonia/dehydration Onset Date: Nov 14, 2020 Therapy Diagnosis Therapy Diagnosis: Weakness Height/Weight Height (Feet): 5 Height (Inches): 4.00 Weight (Pounds): 216 Weight (Ounces): 4.2 Precautions Precautions/Isolations: Fall Prevention, Standard Precautions Weight Bear Status Weight Bearing Restriction: Weight Bearing/Tolerated Referral Physician: Molly Referral Reason: Activity Tolerance, Self Care, Evaluation/Treatment, Strengthening/ROM Medical History Pertinent Medical History: Arthritis, CAD, DM, HTN, [place], OA, Renal Insufficiency Additional Medical History Right knee and shoulder replacement. Current History Pt. verbalizes that she has had significant nausea throughout month of September, and had many issues with diarrhea, dehydration, and vomiting. Pt. states that it was found that she had a bacterial infection. After this put her in a weakened state, she became ill with the Covid-19 virus. Pt. verbalizes that she continues to have nausea whenever she eats, and has recently lost 20 lbs. She attempted to get better at home alone, but is admitted now with pneumonia and dehydration. Reviewed History: Yes Social History Home: Single Level Current Living Status: Alone ADL-Prior Level of Function SCALE: Activities may be completed with or without assistive devices. 5-Rvwtailcow-ipdjnot completes the activity by him/herself with no assistance from a helper. 5-Set-up or Clean-up Assistance-helper sets up or cleans up; patient completes activity. [place] assists only prior to or following the activity. 4-Supervision or Touching Assistance-helper provides verbal cues and/or touching/steadying and/or contact guard assistance as patient completes activity. Assistance may be provided throughout the activity or intermittently. 3-Partial/Moderate Assistance-helper does LESS THAN HALF the effort. [place] lifts, holds or supports trunk or limbs, but provides less than half the effort. 2-Substantial/Maximal Assistance-helper does MORE THAN HALF the effort. [place] lifts or holds trunk or limbs and provides more than half the effort. 7-Kamnrmxnd-gjxhvc does ALL the effort. Patient does none of the effort to complete the activity. Or, the assistance of 2 or more helpers is required for the patient to complete the activity. If activity was not attempted, code reason: 7-Patient Refused. 9-Not Applicable-not attempted and the patient did not perform the activity before the current illness, exacerbation or injury. 10-Not Attempted due to Environmental Limitations-(lack of equipment, weather restraints, etc.). 88-Not Attempted due to Medical Conditions or Safety Concerns. ADL PLOF Comments Pt. states that previous to this illness, she was independent with daily tasks. She drives and is completes all of her own ADLs at home. She has a walker but does not typically use it. Self Care: Independent Functional Cognition: Independent DME/Equipment: Bath Chair, Tub/Shower Drive Self: Yes OT Current Status Subjective Pt. does not report pain, but states that she ate pudding and mashed potatoes earlier, which at the time tasted "wonderful." However, she began to get ill again and thought she would vomit. Pt. reports that she had nausea medicine just prior to OT coming into room, and her stomach is "settling down." Mental Status/Objective Patient Orientation: Person, Place, Time, Situation Attachments: IV Current Glasses/Contacts: Yes Upper Extremity ROM WFL Upper Extremity Strength 3+/5 bilateral UE strength. ADL-Treatment Eating (QC): 5 (Pt. reports that she was able to eat pudding and mashed potatoes earlier with no swallowing issues. However, she became nauseated afterwards.) On/Off Footwear (QC): 2 (Pt. states that nursing donned her slipper socks for her because she was still feeling too weak.) Toileting Hygiene (QC): 4 (Pt. verbalizes to this OT that she has had several BMs in the bathroom, since she has been here, and has been able to clean self up.) Other Treatments OT comes into room right after pt. has just returned to bed. She states that she set up for 4 hours, and it felt good. Pt. verbalizes that she knows she needs to be up. She states that she has just received nausea medication, and her stomach is just "starting to settle." Pt. declines OOB activity at this time, but states that she was able to get into bed with min assist. PT confirms this to OT as well. Pt. does report that she feels extremely weak. She states that she felt isolated in her home while she was quarantining, and states that she had no one to bring her food. She indicates that she is fearful at returning home just yet, until she is stronger. All needs met at this time. OT will begin strengthening/ADL activities to gain independence for safe and functional discharge at next session, when pt. is able to tolerate from nausea standpoint. Education OT Patient Education: Correct positioning, Progress toward Goal/Update tx plan, Purpose of tx/functional activities, Reviewed precautions, Rehab process Teaching Recipient: Patient Teaching Methods: Demonstration, Discussion Response to Teaching: Verbalize Understanding, Return Demonstration OT Short Term Goals Short Term Goals Time Frame: Nov 22, 2020 Eatin Oral hygiene: 5 Toileting hygiene: 4 Shower/bathe self: 4 Upper body dressin Lower body dressin Putting on/taking off footwear: 4 OT Managed Care Provider Goals Managed Care Provider Goals Time Frame: Nov 29, 2020 Eating (QC): 6 Oral Hygiene (QC): 6 Toileting Hygiene (QC): 6 Shower/Bathe Self (QC): 4 Upper Body Dressing (QC): 6 Lower Body Dressing (QC): 6 On/Off Footwear (QC): 6 Additional Goals: 1-Demonstrate ADL Tasks, 2-Verbalize Understanding, 3-ImproveStrength/Tay 1=Demonstrate adherence to instructed precautions during ADL tasks. 2=Patient will verbalize/demonstrate understanding of assistive devices/modifications for ADL. 3=Patient will improve strength/tolerance for activity to enable patient to perform ADL's. OT Education/Plan Problem List/Assessment Assessment: Decreased Activ Tolerance, Impaired I ADL's, Impaired Self-Care Skills Discharge Recommendations Plan/Recommendations: Continue POC Therapy Discharge Recommendati: Post Acute OT Treatment Plan/Plan of Care Treatment,Training & Education: Yes Patient would benefit from OT for education, treatment and training to promote independence in ADL's, mobility, safety and/or upper extremity function for ADL's. Plan of Care: ADL Retraining, Functional Mobility, UE Funct Exercise/Act Treatment Duration: Nov 29, 2020 Frequency: 5 times per week Estimated Hrs Per Day: .25 hour per day Agreement: Yes Rehab Potential: Fair Time/GCodes Start Time: 14:00 Stop Time: 14:15 Total Time Billed (hr/min): 15 Billed Treatment Time 1, DANELLE VILLALTA OT Nov 15, 2020 15:04
[2020-11-16] MEDS: DOXYCYCLINE INJECTION 100 MG in NS (IVPB) 100 ML IV SCH ×2 (00:22→11:32)
[2020-11-16] MEDS: CEFEPIME 1,000 MG/SWFI 10 ML IV PUSH IV SCH ×6 (01:38→17:15)
[2020-11-16 04:53] VITALS: BP 155/76
[2020-11-16] MEDS: ACETAMINOPHEN 325 MG TABLET PO PRN ×3 (04:58→22:13)
[2020-11-16 05:13] LABS: BASOPHILS % (AUTO) 0 % (0-10); EOSINOPHILS % (AUTO) 1 % (0-10); HEMATOCRIT 32 % (35-52); HEMOGLOBIN 10.5 g/dL (11.5-16.0); LYMPHOCYTES # (AUTO) 1.1 10^3/uL (1.0-4.0); LYMPHOCYTES % (AUTO) 24 % (12-44); MEAN CORPUSCULAR HEMOGLOBIN 29 pg (25-34); MEAN CORPUSCULAR HGB CONC 33 g/dL (32-36); MEAN CORPUSCULAR VOLUME 89 fL (80-99); MEAN PLATELET VOLUME 9.7 fL (9.0-12.2); MONOCYTES # (AUTO) 0.4 10^3/uL (0.0-1.0); MONOCYTES % (AUTO) 9 % (0-12); NEUTROPHILS % (AUTO) 66 % (42-75); PLATELET COUNT 180 10^3/uL (130-400); WHITE BLOOD COUNT 4.6 10^3/uL (4.3-11.0)
[2020-11-16 05:27] LABS: ALBUMIN 2.9 GM/DL (3.2-4.5); POTASSIUM 3.3 MMOL/L (3.6-5.0)
[2020-11-16 05:28] LABS: CALCIUM 6.7 MG/DL (8.5-10.1)
[2020-11-16 05:29] LABS: TOTAL PROTEIN 5.4 GM/DL (6.4-8.2)
[2020-11-16 05:31] LABS: BILIRUBIN,TOTAL 0.2 MG/DL (0.1-1.0)
[2020-11-16] MEDS: inSUlin ASPART (NovoLOG) 1 UNIT/0.01 ML (CHARGE PER UNIT) SC SCH ×4 (05:31→20:25)
[2020-11-16 05:33] LABS: CREATININE SERUM 0.92 MG/DL (0.60-1.30)
[2020-11-16] MEDS: ONDANSETRON 4 MG/2 ML (SDV) Z0FRAN IVP PRN ×4 (05:57→22:11)
[2020-11-16] MEDS: predniSONE 5 MG TAB PO SCH (05:58)
[2020-11-16] MEDS: PROMETHAZINE INJ 25 MG/ML (PHENERGAN) AMP IV PRN ×2 (07:09→18:16)
[2020-11-16] MEDS: RT-ALBUTEROL SULF 2.5 MG/3 ML PRE-MIX VIAL INH SCH ×2 (07:49→21:27)
[2020-11-16 08:00] VITALS: BP 183/86
--- NOTE | 2020-11-16 08:39 | NUR ---
IRF Evaluation Determination: Denied Chart review complete and it appears patient is independent with bed mobility, and SBA with jxu-po-dohgg, transfers and ambulation (475ft, FWW). Additionally, she is set up for eating, maximum assist for on/off footwear and supervision for toileting hygiene. Although the patient requires notable assistance with on/off footwear, she does not meet criteria for admission as she is too high functioning with PT. Thank you for this referral.
[2020-11-16] MEDS: HYDROXYCHLOROQUINE 200 MG (PLAQUENIL) TAB PO SCH ×2 (08:51→17:15)
[2020-11-16] MEDS: DULoxetine 30 MG (CYMBALTA) CAP PO SCH (08:51)
[2020-11-16] MEDS: SENNA W/DOCUSATE (SENOKOT S) TABLET PO SCH ×3 (08:51→20:29)
[2020-11-16] MEDS: toPIRamate 25 MG (TOPAMAX) TAB PO SCH ×2 (08:51→20:29)
[2020-11-16] MEDS: FOLIC ACID 1 MG TAB PO SCH (08:52)
[2020-11-16] MEDS: meTOprolol SUCCINATE 100 MG (TOPROL XL) TAB PO SCH (08:52)
[2020-11-16] MEDS: PANTOPRAZOLE 40 MG (PROTONIX) TAB PO SCH (08:52)
[2020-11-16] MEDS: amLODIPine 10 MG (NORVASC) TAB PO SCH (08:52)
[2020-11-16] MEDS: ENOXAPARIN 40 MG/0.4 ML (LOVENOX) SYR SC SCH ×2 (08:52→20:29)
[2020-11-16] MEDS: VITAMIN D3 25 MCG (1,000 UNITS) TABLET PO SCH (08:52)
[2020-11-16] MEDS: POTASSIUM CL 10MEQ/50ML IVPB 50 ML IV SCH ×4 (08:53→12:14)
[2020-11-16] MEDS: NS IV 1000 ML 1,000 ML IV SCH (09:53)
--- NOTE | 2020-11-16 10:35 | NUR ---
Pt is [facility]. She declined Communion today but would like me to check again tomorrow.
--- NOTE | 2020-11-16 10:37 | Progress Note - Hospitalist ---
Subjective HPI/CC On Admission Date Seen by Provider: Nov 16, 2020 Time Seen by Provider: 10:00 CC: Nausea and vomiting and diarrhea HPI: This is a 70yoWF known to me from prior hospital stays who presents after a two month course of nausea and vomiting impaction that started at the first part of September, then she was exposed to Covid, she was positive and essentially asymptomatic except for nausea and vomiting who continued to have issues. She started running a fever, found to have pneumonia and profound dehydration with tachycardia and she has since become much improved. IV fluids still going at 100cc. We will initiate PT and OT and inpatient rehab evaluation in order to start her recovery. Subjective/Events-last exam Pt doing pretty well Still nauseated so I did go ahead and consult Dr. Whalen who recommended conservative management and overall she was satisfied with that I did speak with the son who called and asked for an update Pt was being replaced with potassium due to low level She walked 400 feet with PT and OT She had a low-grade fever last night but antibiotics of Cefepime and Doxycycline maintained No diarrhea Dr. Singh was also consulted I will go ahead and stop the Doxycycline due to the continued nausea if that has been changed to oral and Pt will be monitored closely Labs will be checked tomorrow Review of Systems Gastrointestinal: Nausea, Vomiting Objective Exam Vital Signs Vital Signs Date Time Temp Pulse Resp B/P (MAP) Pulse Ox O2 Delivery O2 Flow Rate FiO2 11/17/20 01:00 90 11/17/20 00:25 37.0 11/17/20 00:25 22 153/74 (100) 94 Room Air 11/14/20 16:00 21 Capillary Refill : Less Than 3 Seconds General Appearance: No Apparent Distress, WD/WN, Chronically ill Respiratory: Chest Non Tender, Lungs Clear, Normal Breath Sounds, No Accessory Muscle Use, No Respiratory Distress Cardiovascular: Regular Rate, Rhythm, No Edema, No Gallop, No JVD, No Murmur, Normal Peripheral Pulses Neurologic/Psychiatric: Alert, Oriented x3, No Motor/Sensory Deficits, Normal Mood/Affect Results/Procedures Lab Laboratory Tests 11/16/20 05:05 Patient resulted labs reviewed. Assessment/Plan Assessment and Plan Assess & Plan/Chief Complaint Assessment: Dehydration N/V/D from gastroenteritis CARMEL Severe debility from COVID-19 residual HTN CAD COPD Hypoxia baseline OA Plan: IVF Supportive care PT OT IRF? 11/16/20: Dr Whalen and Dr Singh consult DC Doxy 11/17 IV in case it is a factor for N/V Diagnosis/Problems Diagnosis/Problems (1) Nausea vomiting and diarrhea Status: Acute (2) 2019 novel coronavirus disease (COVID-19) Status: Acute (3) Mild dehydration Status: Acute (4) Generalized weakness Status: Acute (5) Pneumonia Status: Acute Qualifiers: Pneumonia type: due to unspecified organism Laterality: bilateral Lung location: lower lobe of lung Qualified Codes: J18.9 - Pneumonia, unspecified organism (6) Dehydration Status: Acute (7) Viral syndrome Status: Acute (8) Type 2 diabetes mellitus Status: Chronic (9) Normocytic anemia Status: Acute (10) Restless leg syndrome Status: Chronic (11) Renal insufficiency (12) Hyperlipidemia Status: Chronic (13) Essential hypertension Status: Chronic (14) Coronary artery disease Status: Chronic OLIVE ISAAC DO Nov 16, 2020 10:37
[2020-11-16] MEDS ORDERED: PANTOPRAZOLE 40 MG (PROTONIX) TAB PO NR (10:45)
--- NOTE | 2020-11-16 10:53 | Consultation-Cardiology ---
HPI-Cardiology Cardiology Consultation Date of Consultation 11/16/20 Date of Admission Time Seen by Provider: 10:00 Indication: CAD HPI Patient is a 70 y/o female with history of CAD, HTN. Dx with COVID in early October 2020. Reports she received monoclonal antibody infusion last week. Continues to have persistent nausea and loss of appetite since being diagnosed with COVID. Reports increased dyspnea over the past few days, found to have bilateral pneumonia. Denies any chest pain, dizziness or lightheadedness. Home Medications & Allergies Allergies: Coded Allergies: clopidogrel (Verified Allergy, Severe, BLOOD CLOTS, 11/27/18) Penicillins (Verified Allergy, Mild, RASH, 11/27/18) carisoprodol (Verified Allergy, Mild, RASH, 11/27/18) cephalexin (Verified Allergy, Mild, RASH, 11/27/18) ketorolac (Verified Allergy, Mild, RASH, 11/27/18) prochlorperazine (Verified Allergy, Mild, RASH, 11/27/18) Carbamates (Verified Allergy, Unknown, Rash, 05/28/19) Home Medication List Reviewed: Yes AEA-Eidoea-Hgopcm Hx Patient Social History Marital Status: single Employed/Student: retired Recreational Drug Use: No Smoking Status: Never a Smoker 2nd Hand Smoke Exposure: No Recent Hopitalizations: Yes Have you traveled recently?: No Alcohol Use?: No Immunizations Up To Date Tetanus Booster (TDap): Unknown Date of Pneumonia Vaccine: Jul 29, 2017 Date of Influenza Vaccine: Jun 30, 2020 Past Medical History CAD, HTN, HLP Family Medical History Significant Family History: No Pertinent Family Hx Family History: Hypertension G8 BROTHER Not obtainable due to adoption 19 FATHER Review of Systems-General Review of Systems Constitutional: see HPI, malaise, weakness EENTM: see HPI, no symptoms reported; No blurred vision, No double vision Respiratory: No cough, No short of breath Cardiovascular: chest pain; No edema Gastrointestinal: diarrhea, loss of appetite, nausea, vomiting Musculoskeletal: no symptoms reported Psychiatric/Neurological: No Symptoms Reported Reviewed Test Results Reviewed Test Results Lab Laboratory Tests 11/15/20 15:37: Glucometer 171H 11/15/20 20:07: Glucometer 100 11/16/20 05:05: White Blood Count 4.6, Red Blood Count 3.57L, Hemoglobin 10.5L, Hematocrit 32L, Mean Corpuscular Volume 89, Mean Corpuscular Hemoglobin 29, Mean Corpuscular Hemoglobin Concent 33, Red Cell Distribution Width 12.9, Platelet Count 180, Mean Platelet Volume 9.7, Immature Granulocyte % (Auto) 0, Neutrophils (%) (Auto) 66, Lymphocytes (%) (Auto) 24, Monocytes (%) (Auto) 9, Eosinophils (%) (Auto) 1, Basophils (%) (Auto) 0, Neutrophils # (Auto) 3.0, Lymphocytes # (Auto) 1.1, Monocytes # (Auto) 0.4, Eosinophils # (Auto) 0.0, Basophils # (Auto) 0.0, Immature Granulocyte # (Auto) 0.0, Sodium Level 140, Potassium Level 3.3L, Chloride Level 112H, Carbon Dioxide Level 20L, Anion Gap 8, Blood Urea Nitrogen 13, Creatinine 0.92, Estimat Glomerular Filtration Rate 60, BUN/Creatinine Ratio 14, Glucose Level 114H, Calcium Level 6.7L, Corrected Calcium 7.6L, Total Bilirubin 0.2, Aspartate Amino Transf (AST/SGOT) 16, Alanine Aminotransferase (ALT/SGPT) 11, Alkaline Phosphatase 85, Total Protein 5.4L, Albumin 2.9L, Amylase Level 38, Lipase 75 11/16/20 11:15: Glucometer 153H Microbiology 11/14/20 Urine Culture - Final, Complete Mixed Bacterial Marilin Proteus species Gram Negative Ildefonso See Comments Physical Exam Physical Exam Vital Signs Vital Signs - First Documented 11/14/20 09:45 Temp 36.9 Pulse 133 Resp 24 B/P (MAP) 138/87 (104) Pulse Ox 95 O2 Delivery Room Air Capillary Refill : Less Than 3 Seconds Height, Weight, BMI Height: 5'4.00" Weight: 216lbs. 4.2oz. 98.459174ys; 28.85 BMI Method:Stated General Appearance: No Apparent Distress, Chronically ill Eyes: Right Eye Normal Inspection, Right Eye PERRL HEENT: PERRL/EOMI, Normal ENT Inspection, Pharynx Normal, Moist Mucous Membranes Neck: Full Range of Motion, Normal Inspection, Non Tender Respiratory: Chest Non Tender, Lungs Clear, Normal Breath Sounds, No Accessory Muscle Use, No Respiratory Distress Cardiovascular: Regular Rate, Rhythm, No Edema, No Gallop, No JVD, No Murmur, Normal Peripheral Pulses Gastrointestinal: Normal Bowel Sounds, No Organomegaly, No Pulsatile Mass, Non Tender, Soft Back: Normal Inspection, No CVA Tenderness, No Vertebral Tenderness Extremity: Normal Capillary Refill, Normal Inspection, Normal Range of Motion, Non Tender, No Calf Tenderness, No Pedal Edema Neurologic/Psychiatric: Alert, Oriented x3, No Motor/Sensory Deficits, Normal Mood/Affect Skin: Normal Color, Warm/Dry Lymphatic: No Adenopathy A/P-Cardiology Admission Diagnosis pneumonia CAD HTN HLP Assessment/Plan s/p COVID, received monoclonal antibody treatment, continues to c/o persistent nausea and loss of appetite, management per Dr. Barnes Bilateral pneumonia, on antibiotic, management per Dr. Barnes. Zenker diverticulum, attempt for surgical repair was done late in December 2018 in [facility], has failed attempt for surgery in the past, follows with GI at . History of esophageal paresis and GI bleed, unknown etiology Coronary artery disease, history of stent to the right coronary artery in 2009 using 3.512 mm Ion stent, last stress test done in December 2018 showing no ischemia or infarction with normal LV function. Continue to monitor Hypertension, mildly elevated, conitnue to monitor. Hyperlipidemia, maintained on Lipitor Anemia of chronic disease followed with oncology History of liver injury secondary to trauma and bleed. History of chronic kidney disease, was on dialysis in November 2015, currently off dialysis. Diabetic nephropathy, she has been following with [facility] Mild bilateral carotid stenosis, ultrasound was done in November 2018. Continue to monitor JOHN was normal done in November 2018. Continue to monitor Diabetes mellitus, followed and managed by primary care physician History of breast cancer, had lumpectomy on the left and radiation, followed by primary care physician History of DVT at the left arm related to PICC line, in 2002. History of glaucoma History of renal artery stenosis, had a stent done in 2013, continue to monitor Hypothyroidism Status post recent right shoulder surgery with Dr. Benson Thank you for allowing us to participate in the management of Ms. Barros. This is Maria D Hart PA-C, as a scribe for Dr. Singh. Patient was seen and evaluated with Maria D, examination performed, management plan was discussed, agree with the current scribed note, I made few changes to the note using Italic font Patient was seen at bedside, laying down comfortably Still complaining of generalized fatigue and shortness of breath Received treatment for COVID with monoclonal antibody, does not reporting improvement, having nausea, loss of appetite at this time and bilateral pneumonia. Receiving antibiotics, managed by primary care physician Has extensive history as described above including coronary artery disease, hypertension and hyperlipidemia which has been stable. Continue to monitor at this time. MARIA D ORTIZ Nov 16, 2020 10:53 ABBI SINGH MD Nov 16, 2020 16:11
[2020-11-16 10:56] LABS: AMYLASE 38 U/L (25-125); LIPASE 75 U/L (8-78)
[2020-11-16] MEDS: LACTATED RINGERS 1,000 ML IV SCH ×2 (11:31→20:39)
--- NOTE | 2020-11-16 11:54 | Consultation - Surgery ---
MARYBETH ELLIOTT,MED STUDENT 11/16/20 1154: History of Present Illness History of Present Illness Patient Consulted On(anthony/time) 11/16/20 11:53 Date Seen by Provider: Nov 16, 2020 Time Seen by Provider: 11:35 History of Present Illness Pt is a 70 year old female with PMH of HTN, Diabetes Mellitus, CAD, GERD Hypothyroidism and Zenkers Diverticulum who was admitted 11/14 for dehydration, weakness and intractable nausea. She states that she had COVID at the beginning of October, and that is when she started having nausea as well. She states that it is worse with eating, and she also gets lower abdominal pain with eating as well. She states Zofran and Phenergan have helped with the nausea. She denies any vomiting but states she had been dry heaving. She also reports diarrhea at the beginning of October but states that has resolved. She denies seeing any blood in her stools or dark tarry stools. She states for the past week or so she has not been eating and has been feeling very weak. Last EGD was done in 2018 and showed arytenoid ulcers, zenkers diverticulum, gastritis and hiatal hernia. States her last BM was yesterday and was loose. She currently denies chest pain, abdominal pain, dysphagia. Does report feeling feverish and generalized weakness. Allergies and Home Medications Allergies Coded Allergies: clopidogrel (Verified Allergy, Severe, BLOOD CLOTS, 11/27/18) Penicillins (Verified Allergy, Mild, RASH, 11/27/18) carisoprodol (Verified Allergy, Mild, RASH, 11/27/18) cephalexin (Verified Allergy, Mild, RASH, 11/27/18) ketorolac (Verified Allergy, Mild, RASH, 11/27/18) prochlorperazine (Verified Allergy, Mild, RASH, 11/27/18) Carbamates (Verified Allergy, Unknown, Rash, 05/28/19) Home Medications Amlodipine Besylate 10 Mg Tablet, 10 MG PO DAILY, (Reported) Atorvastatin Calcium 40 Mg Tablet, 40 MG PO HS, (Reported) Cholecalciferol (Vitamin D3) 50 Mcg Tablet, 50 MCG PO DAILY, (Reported) Codeine/Butalbital/ASA/Caffein 1 Each Capsule, 1 EACH PO DAILY PRN for MIGRAINE, (Reported) Duloxetine HCl 30 Mg Capsule.dr, 30 MG PO DAILY, (Reported) TAKE ALONG WITH 60MG CAP FOR A TOTAL DAILY DOSE OF 90MG Duloxetine HCl 60 Mg Capsule.dr, 60 MG PO DAILY, (Reported) TAKES ALONG WITH 30MG CAPSULE FOR A TOTAL DAILY DOSE OF 90MG Folic Acid 1 Mg Tablet, 1 MG PO DAILY, (Reported) Furosemide 40 Mg Tablet, 40 MG PO DAILY, (Reported) Hydroxychloroquine Sulfate 200 Mg Tablet, 200 MG PO BID, (Reported) Insulin Detemir 100 Unit/1 Ml Insuln.pen, 8 UNIT SQ DAILY PRN for BLOOD SUGAR OVER 140, (Reported) Metoprolol Succinate 100 Mg Tab.er.24h, 100 MG PO DAILY, (Reported) Pantoprazole Sodium 40 Mg Tablet.dr, 40 MG PO DAILY, (Reported) Prednisone 2.5 Mg Tablet, 2.5 MG PO DAILY, (Reported) Topiramate 50 Mg Tablet, 75 MG PO BID, (Reported) TAKE 1 & 1/2 OF 50MG TAB Past Evyrzez-Ehjfnw-Mvefxc Hx Patient Social History Smoking Status: Never a Smoker 2nd Hand Smoke Exposure: No Recent Hopitalizations: Yes Alcohol Use?: No Have you traveled recently?: No Immunizations Up To Date Tetanus Booster (TDap): Unknown Date of Pneumonia Vaccine: Jul 29, 2017 Date of Influenza Vaccine: Jun 30, 2020 Seasonal Allergies Seasonal Allergies: No Surgeries History of Surgeries: Yes (R CTR, espohageal ligation x2, Hernia, L RCR, L TKR, laparotomy, MRSA infec) Surgeries: Abdominal, Breast, Cardiac, Coronary Stent, Hysterectomy, Joint Replacement, Oophorectomy, Orthopedic, Thyroidectomy Respiratory History of Respiratory Disorde: No Cardiovascular History of Cardiac Disorders: Yes (HX HEART CATH-STENT) Cardiac Disorders: Coronary Artery Disease, Heart Attack, High Cholesterol, Hypertension Neurological History of Neurological Disord: Yes Neurological Disorders: Headaches /Migraines, Neuropathy Reproductive System Sexually Transmitted Disease: No HIV/AIDS: No [employer] History: Hysterectomy, Menopausal Genitourinary History of Genitourinary Disor: Yes (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, STAGE 2-kidneY DISEASE ) Genitourinary Disorders: Bladder Infection, Renal Failure Gastrointestinal History of Gastrointestinal Di: Yes (HX GI BLEED, zenkers syndrome-chokes easily, hx hep A) Gastrointestinal Disorders: Abdominal Hernia, Gastroesophageal Reflux, Hepatitis Musculoskeletal History of Musculoskeletal Dis: Yes (OSTEOARTHRITIS, BULGING DISCS) Musculoskeletal Disorders: Arthritis, Chronic Back Pain Endocrine History of Endocrine Disorders: Yes (partial thyroidectomy) Endocrine Disorders: Hypothyroidsim, Diabetes, Non-Insulin dep HEENT History of HEENT Disorders: Yes (GLASSES, UPPER DENTURES) Loss of Vision: Bilateral Cancer History of Cancer: Yes Cancer: Breast Psychosocial History of Psychiatric Problem: No Integumentary History of Skin or Integumenta: No Blood Transfusions History of Blood Disorders: Yes (IRON DEFFICIENCY ANEMIA-GETS IRON INFUSIONS) Adverse Reaction to a Blood Tr: No (HAS HAD BLOOD WITH NO REACTION) Family Medical History Significant Family History: Heart Disease (brother) Family Medial History: Hypertension G8 BROTHER Not obtainable due to adoption 19 FATHER Review of Systems-General Constitutional: No chills; fever, weakness EENTM: No double vision, No vision loss, No mouth pain, No throat pain Respiratory: cough, dyspnea on exertion; No short of breath Cardiovascular: No chest pain, No edema, No palpitations Gastrointestinal: No abdominal pain; diarrhea; No hematemesis; loss of appetite; No melena; nausea; No vomiting Genitourinary: No dysuria, No frequency, No hematuria Musculoskeletal: No joint pain, No muscle pain; muscle weakness (generalized) Skin: No change in color, No lesions Psychiatric/Neurological: Denies Anxiety; Headache; Denies Numbness; Weakness Other Heme: denies easy bleeding or bruising Physical Exam-General Problems Physical Exam Vital Signs Vital Signs - First Documented 11/14/20 09:45 Temp 36.9 Pulse 133 Resp 24 B/P (MAP) 138/87 (104) Pulse Ox 95 O2 Delivery Room Air Capillary Refill : Less Than 3 Seconds General Appearance: no apparent distress, other (chronically ill) Eyes: Bilateral Eye PERRL, Bilateral Eye EOMI HEENT: No scleral icterus (R), No scleral icterus (L) Neck: non-tender, full range of motion, supple; No lymphadenopathy (R), No lymphadenopathy (L) Respiratory: lungs clear, no respiratory distress, no accessory muscle use, decreased breath sounds (bilateral bases) Cardiovascular: regular rate, rhythm, no edema, no murmur Peripheral Pulses: 2+ Radial Pulses (R), 2+ Radial Pulses (L) Gastrointestinal: normal bowel sounds, non tender, soft; No distended Back: no vertebral tenderness Extremities: normal range of motion, no pedal edema, no calf tenderness Neurologic/Psychiatric: 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 tested, no motor/sensory deficits, alert, normal mood/affect, oriented x 3 Skin: normal color, warm/dry Lymphatic: no adenopathy (cervical, axillary, inguinal, ) Data Review Labs Laboratory Tests 11/15/20 15:37: Glucometer 171H 11/15/20 20:07: Glucometer 100 11/16/20 05:05: White Blood Count 4.6, Red Blood Count 3.57L, Hemoglobin 10.5L, Hematocrit 32L, Mean Corpuscular Volume 89, Mean Corpuscular Hemoglobin 29, Mean Corpuscular Hemoglobin Concent 33, Red Cell Distribution Width 12.9, Platelet Count 180, Mean Platelet Volume 9.7, Immature Granulocyte % (Auto) 0, Neutrophils (%) (Auto) 66, Lymphocytes (%) (Auto) 24, Monocytes (%) (Auto) 9, Eosinophils (%) (Auto) 1, Basophils (%) (Auto) 0, Neutrophils # (Auto) 3.0, Lymphocytes # (Auto) 1.1, Monocytes # (Auto) 0.4, Eosinophils # (Auto) 0.0, Basophils # (Auto) 0.0, Immature Granulocyte # (Auto) 0.0, Sodium Level 140, Potassium Level 3.3L, Chloride Level 112H, Carbon Dioxide Level 20L, Anion Gap 8, Blood Urea Nitrogen 13, Creatinine 0.92, Estimat Glomerular Filtration Rate 60, BUN/Creatinine Ratio 14, Glucose Level 114H, Calcium Level 6.7L, Corrected Calcium 7.6L, Total Bilirubin 0.2, Aspartate Amino Transf (AST/SGOT) 16, Alanine Aminotransferase (ALT/SGPT) 11, Alkaline Phosphatase 85, Total Protein 5.4L, Albumin 2.9L, Amylase Level 38, Lipase 75 11/16/20 11:15: Glucometer 153H Microbiology 11/14/20 Urine Culture - Final, Complete Mixed Bacterial Marilin Proteus species Gram Negative Ildefonso See Comments Assessment/Plan Assessment/Plan Assessment/Plan Dehydration Nausea, possibly secondary to gastroenteritis Hx of Zenkers Diverticulum HTN Diabetes Mellitus Hx of COVID-19 pneumonia Continue IV fluids, abx, protonix, zofran and phenergan as needed Can do upper EGD as outpatient when pt is discharged Encourage IS, ambulation DVT ppx DELMAN,VERONICA B DO 11/16/20 1352: History of Present Illness History of Present Illness Time Seen by Provider: 11:46 History of Present Illness Surgery asked to consult regarding N/V/D. Pt seen and examined, she denied abdominal pain. States her Nausea, Vomiting and Diarrhea all started after she got Covid-19. She states she takes Zofran and Phenergan which help the nausea. She states she was admitted for pneumonia. Allergies and Home Medications Allergies Coded Allergies: clopidogrel (Verified Allergy, Severe, BLOOD CLOTS, 11/27/18) Penicillins (Verified Allergy, Mild, RASH, 11/27/18) carisoprodol (Verified Allergy, Mild, RASH, 11/27/18) cephalexin (Verified Allergy, Mild, RASH, 11/27/18) ketorolac (Verified Allergy, Mild, RASH, 11/27/18) prochlorperazine (Verified Allergy, Mild, RASH, 11/27/18) Carbamates (Verified Allergy, Unknown, Rash, 05/28/19) Home Medications Amlodipine Besylate 10 Mg Tablet, 10 MG PO DAILY, (Reported) Atorvastatin Calcium 40 Mg Tablet, 40 MG PO HS, (Reported) Cholecalciferol (Vitamin D3) 50 Mcg Tablet, 50 MCG PO DAILY, (Reported) Codeine/Butalbital/ASA/Caffein 1 Each Capsule, 1 EACH PO DAILY PRN for MIGRAINE, (Reported) Duloxetine HCl 30 Mg Capsule.dr, 30 MG PO DAILY, (Reported) TAKE ALONG WITH 60MG CAP FOR A TOTAL DAILY DOSE OF 90MG Duloxetine HCl 60 Mg Capsule.dr, 60 MG PO DAILY, (Reported) TAKES ALONG WITH 30MG CAPSULE FOR A TOTAL DAILY DOSE OF 90MG Folic Acid 1 Mg Tablet, 1 MG PO DAILY, (Reported) Furosemide 40 Mg Tablet, 40 MG PO DAILY, (Reported) Hydroxychloroquine Sulfate 200 Mg Tablet, 200 MG PO BID, (Reported) Insulin Detemir 100 Unit/1 Ml Insuln.pen, 8 UNIT SQ DAILY PRN for BLOOD SUGAR OVER 140, (Reported) Metoprolol Succinate 100 Mg Tab.er.24h, 100 MG PO DAILY, (Reported) Pantoprazole Sodium 40 Mg Tablet.dr, 40 MG PO DAILY, (Reported) Prednisone 2.5 Mg Tablet, 2.5 MG PO DAILY, (Reported) Topiramate 50 Mg Tablet, 75 MG PO BID, (Reported) TAKE 1 & 1/2 OF 50MG TAB Patient Home Medication List Home Medication List Reviewed: Yes Past Ltndzxn-Pynoob-Vvlvhw Hx Family Medical History Significant Family History: Heart Disease (brother), Hypertension (brother) Family Medial History: Hypertension G8 BROTHER Not obtainable due to adoption 19 FATHER Review of Systems-General Constitutional: fever, weakness Respiratory: cough, dyspnea on exertion; No short of breath Cardiovascular: No chest pain, No edema Gastrointestinal: No abdominal pain; diarrhea; No hematemesis; loss of appetit e; No melena; nausea; No vomiting Genitourinary: No dysuria, No frequency, No hematuria Physical Exam-General Problems Physical Exam General Appearance: no apparent distress, other (chronically ill) Eyes: Bilateral Eye PERRL, Bilateral Eye EOMI HEENT: pharynx normal; No scleral icterus (R), No scleral icterus (L) Neck: non-tender, full range of motion Respiratory: lungs clear, no respiratory distress, no accessory muscle use, decreased breath sounds (bilateral bases) Cardiovascular: regular rate, rhythm, no murmur Gastrointestinal: non tender, soft, no organomegaly; No distended Back: no vertebral tenderness Neurologic/Psychiatric: 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 Comparison with 10/07/2020. FINDINGS: Upright chest shows patchy perihilar infiltrates bilaterally with some atelectasis in the right perihilar region. No pneumothorax or pleural effusion. Heart is not enlarged. Port-A-Cath on the left in good position. Upright spine and abdomen shows a normal gas and stool pattern throughout the small bowel and colon without evidence of obstruction. No evidence of constipation. No organomegaly. Aorta is densely calcified without evidence of aneurysm. Moderate degenerative changes noted of the hips. IMPRESSION: 1. Patchy bilateral infiltrates in the lungs with some right perihilar atelectasis. 2. The bowel gas pattern appears normal without evidence of obstruction or constipation. Dictated by: Dictated on workstation # [id number] Dict: 11/14/20 1049 Trans: 11/14/20 1608 [facility] [id number] Interpreted by: VERONICA DAUGHERTY MD Electronically signed by: VERONICA DAUGHERTY MD 11/14/20 1608 Assessment/Plan Assessment/Plan Assessment/Plan Pneumonia - ??residual from Covid-19 Dehydration UTI Hypokalemia Nausea, Vomiting and Diarrhea Pt needs IV fluids, ABX for UTI, replacement of Potassium. Control symptoms with zofran and phenergan; sounds like the symptoms are unfortunately a residual from her Covid-19. Encourage IS and ambulation. Will follow along. Supervisory-Addendum Brief Verification & Attestation Participated in pt care: history, MDM, physical Personally performed: exam, history, MDM Care discussed with: Medical Student Procedures: n/a Verification and Attestation of Medical Student E/M Service A medical student performed and documented this service. I then reviewed and verified all information documented by the medical student and made modifications to such information, when appropriate. I personally performed a physical exam, medical decision making and then discussed any differences between the notes and made revisions as necessary to create one note. Veronica Whalen , 11/16/20 , 13:53 MARYBETH ELLIOTT,MED STUDENT Nov 16, 2020 11:54 VERONICA WHALEN DO Nov 16, 2020 13:52
[2020-11-16 12:00] VITALS: BP 143/73
--- NOTE | 2020-11-16 15:39 | Physical Therapy Daily Note ---
PT Daily Note-Current Subjective Pt. states her symptoms of nausea and vomiting and abdominal discomfort have not gotten better but she realizes she needs to move about regardless. Agrees to Rx Mental Status Patient Orientation: Normal For Age Attachments: IV Transfers SCALE: Activities may be completed with or without assistive devices. 7-Ybtmlswyff-glzuzpj completes the activity by him/herself with no assistance from a helper. 5-Set-up or Clean-up Assistance-helper sets up or cleans up; patient completes activity. [place] assists only prior to or following the activity. 4-Supervision or Touching Assistance-helper provides verbal cues and/or touching/steadying and/or contact guard assistance as patient completes activity. Assistance may be provided throughout the activity or intermittently. 3-Partial/Moderate Assistance-helper does LESS THAN HALF the effort. [place] lifts, holds or supports trunk or limbs, but provides less than half the effort. 2-Substantial/Maximal Assistance-helper does MORE THAN HALF the effort. [place] lifts or holds trunk or limbs and provides more than half the effort. 4-Crbuahcqw-nreltz does ALL the effort. Patient does none of the effort to complete the activity. Or, the assistance of 2 or more helpers is required for the patient to complete the activity. If activity was not attempted, code reason: 7-Patient Refused. 9-Not Applicable-not attempted and the patient did not perform the activity before the current illness, exacerbation or injury. 10-Not Attempted due to Environmental Limitations-(lack of equipment, weather restraints, etc.). 88-Not Attempted due to Medical Conditions or Safety Concerns. Roll Left & Right (QC): 6 Sit to Lying (QC): 6 Lying to Sitting/Side of Bed(Q: 6 Sit to Stand (QC): 6 Gait Training Does the Patient Walk?: Yes Walk 150 ft (QC): 5 Gait Persons Needed: 1 Gait Assistive Device: FWW assist for IV, SBA to CGA , no gait deviation, pt. did however state that her N&V Sxs were increasing and requested to go back to bed after approx 300ft gait. Exercises Supine Ex: Ankle pumps, Heel Slides, Hip abd/add Supine Reps: 10 Seated Therapy Exercises: Ankle pumps, Sit to stand, Long arc quads, Hip flexion Seated Reps: 10 Assessment Current Status: Good Progress pts. N&V Sxs limit her activity PT Metal Flow Coordinator Goals Metal Flow Coordinator Goals PT Detention Goals Time Frame: Nov 25, 2020 Roll Left & Right (QC): 6 Sit to Lying (QC): 6 Lying-Sitting on Side/Bed(QC): 6 Sit to Stand (QC): 6 Chair/Rlr-lt-Lmipf Xfer(QC): 6 Toilet Transfer (QC): 6 Car Transfer (QC): 6 Does the Patient Walk: Yes Walk 10 feet (QC): 6 Walk 50ft with 2 Turns (QC): 6 Walk 150 ft (QC): 6 Walking 10ft on Uneven Surface: 6 1 Step (curb) (QC): 6 4 Steps (QC): 6 12 Steps (QC): 9 Picking up an Object (QC): 6 (seated position) Does the Pt use WC or Scooter?: No PT Plan Treatment/Plan Treatment Plan: Continue Plan of Care Treatment Plan: Education, Functional Activity Tay, Functional Strength, Gait, Safety, Therapeutic Exercise, Transfers Treatment Duration: Nov 25, 2020 Frequency: 6 times per week Estimated Hrs Per Day: .25 hour per day Patient and/or Family Agrees t: Yes Safety Risks/Education Patient Education: Gait Training, Transfer Techniques, Safety Issues Time/GCodes Time In: 1525 Time Out: 1540 Total Billed Treatment Time: 15 Total Billed Treatment 1,GT15m NILS TRAN RADIO STATION ENGINEER Nov 16, 2020 15:39
--- NOTE | 2020-11-16 15:43 | Occupational Ther Daily Note ---
OT Current Status-Daily Note Subjective Pt. does not report pain, but does state that she feels nauseated, and has been nauseated all day. Pt. verbalizes that she has had medication for it. Mental Status/Objective Patient Orientation: Person, Place Attachments: IV ADL-Treatment Therapy Code Descriptions/Definitions Functional [place] Measure: 0=Not Assessed/NA 4=Minimal Assistance 1=Total Assistance 5=Supervision or Setup 2=Maximal Assistance 6=Modified [place] 3=Moderate Assistance 7=Complete IndependenceSCALE: Activities may be completed with or without assistive devices. 8-Brgdumocnx-evpmbol completes the activity by him/herself with no assistance from a helper. 5-Set-up or Clean-up Assistance-helper sets up or cleans up; patient completes activity. [place] assists only prior to or following the activity. 4-Supervision or Touching Assistance-helper provides verbal cues and/or touching/steadying and/or contact guard assistance as patient completes activity. Assistance may be provided throughout the activity or intermittently. 3-Partial/Moderate Assistance-helper does LESS THAN HALF the effort. [place] lifts, holds or supports trunk or limbs, but provides less than half the effort. 2-Substantial/Maximal Assistance-helper does MORE THAN HALF the effort. [place] lifts or holds trunk or limbs and provides more than half the effort. 5-Wfsbcsmxo-phbkay does ALL the effort. Patient does none of the effort to complete the activity. Or, the assistance of 2 or more helpers is required for the patient to complete the activity. If activity was not attempted, code reason: 7-Patient Refused. 9-Not Applicable-not attempted and the patient did not perform the activity before the current illness, exacerbation or injury. 10-Not Attempted due to Environmental Limitations-(lack of equipment, weather restraints, etc.). 88-Not Attempted due to Medical Conditions or Safety Concerns. On/Off Footwear: 2 Other Treatment Pt. states that she isn't feeling well. States that she has gotten up today to ambulate to the bathroom, but has not been up in her chair due to nausea. Pt. states that she has eaten though, and has been able to keep her food down. She agrees to treatment. Pt. transfers supine-sit with SBA. She is able to scoot to edge, but has difficulty keeping upright posture. Pt. sits in "slumped" position, but does attempt to correct self. Due to nausea, pt. verbalizes that it feels better to sit slightly leaning. Pt. able to kick legs out alternatively, but is unable to bring feet up to her to doff socks. Pt. unable to bend over as well, and verbalizes that she needs to lay back down. Pt. able to transfer sit-supine with SBA. Declines bathing this date, but states that she would like to tomorrow. Pt. does agree to wash face and hands, and OT provides warm wash cloth. All needs met in bed. Education OT Patient Education: Correct positioning, Modified ADL techniques, Progress toward Goal/Update tx plan, Purpose of tx/functional activities, Reviewed precautions, Rehab process, Transfer techniques Teaching Recipient: Patient Teaching Methods: Demonstration, Discussion Response to Teaching: Verbalize Understanding, Return Demonstration OT Short Term Goals Short Term Goals Time Frame: Nov 22, 2020 Eatin Oral hygiene: 5 Toileting hygiene: 4 Shower/bathe self: 4 Upper body dressin Lower body dressin Putting on/taking off footwear: 4 OT Alf Goals Parole Supervisor Goals Time Frame: Nov 29, 2020 Eating (QC): 6 Oral Hygiene (QC): 6 Toileting Hygiene (QC): 6 Shower/Bathe Self (QC): 4 Upper Body Dressing (QC): 6 Lower Body Dressing (QC): 6 On/Off Footwear (QC): 6 Additional Goals: 1-Demonstrate ADL Tasks, 2-Verbalize Understanding, 3- ImproveStrength/Tay 1=Demonstrate adherence to instructed precautions during ADL tasks. 2=Patient will verbalize/demonstrate understanding of assistive devices/modifications for ADL. 3=Patient will improve strength/tolerance for activity to enable patient to perform ADL's. OT Education/Plan Problem List/Assessment Assessment: Decreased Activ Tolerance, Impaired I ADL's, Impaired Self-Care Skills Discharge Recommendations Plan/Recommendations: Continue POC Therapy Discharge Recommendati: Post Acute OT Treatment Plan/Plan of Care Treatment,Training & Education: Yes Patient would benefit from OT for education, treatment and training to promote independence in ADL's, mobility, safety and/or upper extremity function for ADL's. Plan of Care: ADL Retraining, Functional Mobility, UE Funct Exercise/Act Treatment Duration: Nov 29, 2020 Frequency: 5 times per week Estimated Hrs Per Day: .25 hour per day Agreement: Yes Rehab Potential: Fair Time/GCodes Start Time: 13:15 Stop Time: 13:25 Total Time Billed (hr/min): 10 Billed Treatment Time 1, DANELLE MEDRANO OT Nov 16, 2020 15:43
[2020-11-16 16:00] VITALS: BP 175/79
[2020-11-16 20:00] VITALS: BP 169/74
--- NOTE | 2020-11-16 20:39 | NUR ---
Pt refused tylenol for temp of 38.0 (100.4) at this time due to nausea. Will give zofran when its time and administer tylenol at this time if pt still has temp. Will continue to monitor.
[2020-11-17] VITALS (7 sets, daily range): BP systolic 131–161; BP diastolic 63–77
[2020-11-17] MEDS: DOXYCYCLINE INJECTION 100 MG in NS (IVPB) 100 ML IV SCH (00:15)
[2020-11-17] MEDS: CEFEPIME 1,000 MG/SWFI 10 ML IV PUSH IV SCH ×6 (01:30→17:48)
[2020-11-17 05:53] LABS: BASOPHILS % (AUTO) 0 % (0-10); EOSINOPHILS % (AUTO) 1 % (0-10); HEMATOCRIT 35 % (35-52); HEMOGLOBIN 11.4 g/dL (11.5-16.0); LYMPHOCYTES # (AUTO) 1.1 10^3/uL (1.0-4.0); LYMPHOCYTES % (AUTO) 29 % (12-44); MEAN CORPUSCULAR HEMOGLOBIN 29 pg (25-34); MEAN CORPUSCULAR HGB CONC 33 g/dL (32-36); MEAN CORPUSCULAR VOLUME 88 fL (80-99); MEAN PLATELET VOLUME 9.9 fL (9.0-12.2); MONOCYTES # (AUTO) 0.4 10^3/uL (0.0-1.0); MONOCYTES % (AUTO) 11 % (0-12); NEUTROPHILS # (AUTO) 2.2 10^3/uL (1.8-7.8); NEUTROPHILS % (AUTO) 58 % (42-75); PLATELET COUNT 192 10^3/uL (130-400); WHITE BLOOD COUNT 3.8 10^3/uL (4.3-11.0)
[2020-11-17 06:14] LABS: ALBUMIN 3.1 GM/DL (3.2-4.5); BILIRUBIN,TOTAL 0.3 MG/DL (0.1-1.0); CALCIUM 7.5 MG/DL (8.5-10.1); CREATININE SERUM 0.93 MG/DL (0.60-1.30); POTASSIUM 3.2 MMOL/L (3.6-5.0); TOTAL PROTEIN 5.7 GM/DL (6.4-8.2)
[2020-11-17] MEDS: inSUlin ASPART (NovoLOG) 1 UNIT/0.01 ML (CHARGE PER UNIT) SC SCH ×4 (06:17→21:22)
[2020-11-17] MEDS: predniSONE 5 MG TAB PO SCH (06:43)
[2020-11-17] MEDS: POTASSIUM CL 10MEQ/50ML IVPB 50 ML IV SCH ×2 (06:46→08:09)
[2020-11-17] MEDS: RT-ALBUTEROL SULF 2.5 MG/3 ML PRE-MIX VIAL INH SCH ×2 (07:26→18:16)
--- NOTE | 2020-11-17 07:31 | Progress Note - Surgery ---
MARYBETH ELLIOTT,MED STUDENT 11/17/20 0731: Subjective Date Seen by a Provider: Nov 17, 2020 Time Seen by a Provider: 06:30 Subjective/Events-last exam Pt seen and examined this morning. States she feels like she is doing better but still having nausea. Was able to eat some tomato soup and chicken broth yesterday. Denies abdominal pain currently. Reports SOB with exertion. Review of Systems General: No Chills; Fatigue, Appetite HEENT: No Head Aches Pulmonary: Dyspnea; No Cough Cardiovascular: No: Chest Pain, Palpitations, Edema Gastrointestinal: Nausea; No: Vomiting, Abdominal Pain Genitourinary: No Dysuria, No Hematuria Neurological: Weakness; No: Numbness, Confusion Objective Exam Vital Signs Date Time Temp Pulse Resp B/P (MAP) Pulse Ox O2 Delivery O2 Flow Rate FiO2 11/17/20 04:00 36.8 87 24 146/68 (94) 93 Room Air 11/17/20 01:00 90 11/17/20 00:25 37.0 11/17/20 00:25 37.0 91 22 153/74 (100) 94 Room Air 11/16/20 22:13 38.0 11/16/20 22:00 38.0 11/16/20 20:30 Room Air 11/16/20 20:00 38.0 89 20 169/74 (105) 94 Room Air 11/16/20 19:00 100 11/16/20 16:00 36.9 92 18 175/79 (111) 96 Room Air 11/16/20 12:46 83 11/16/20 12:00 36.8 98 16 143/73 (96) 96 Room Air 11/16/20 08:00 Room Air 11/16/20 08:00 36.1 101 16 183/86 (118) 94 Room Air 11/16/20 07:49 94 Room Air I & O 11/17/20 07:00 Intake Total 2620 ml Output Total 2150 ml Balance 470 ml Capillary Refill : Less Than 3 Seconds General Appearance: No Apparent Distress, Chronically ill HEENT: PERRL/EOMI Respiratory: No Accessory Muscle Use, No Respiratory Distress, Decreased Breath Sounds (bilateral bases) Cardiovascular: Regular Rate, Rhythm, No Edema, No Murmur Peripheral Pulses: 2+ Radial Pulses (R), 2+ Radial Pulses (L) Gastrointestinal: non tender, soft; No distended Extremity: Non Tender, No Calf Tenderness, No Pedal Edema Neurologic/Psychiatric: Alert, Oriented x3, No Motor/Sensory Deficits, Normal Mood/Affect Skin: Normal Color, Warm/Dry Results Lab Laboratory Tests 11/16/20 11:15: Glucometer 153H 11/16/20 16:24: Glucometer 120H 11/16/20 20:14: Glucometer 107 11/17/20 05:37: White Blood Count 3.8L, Red Blood Count 3.92, Hemoglobin 11.4L, Hematocrit 35, Mean Corpuscular Volume 88, Mean Corpuscular Hemoglobin 29, Mean Corpuscular Hemoglobin Concent 33, Red Cell Distribution Width 13.0, Platelet Count 192, Mean Platelet Volume 9.9, Immature Granulocyte % (Auto) 1, Neutrophils (%) (Auto) 58, Lymphocytes (%) (Auto) 29, Monocytes (%) (Auto) 11, Eosinophils (%) (Auto) 1, Basophils (%) (Auto) 0, Neutrophils # (Auto) 2.2, Lymphocytes # (Auto) 1.1, Monocytes # (Auto) 0.4, Eosinophils # (Auto) 0.0, Basophils # (Auto) 0.0, Immature Granulocyte # (Auto) 0.0, Sodium Level 143, Potassium Level 3.2L, Chloride Level 111H, Carbon Dioxide Level 20L, Anion Gap 12, Blood Urea Nitrogen 11, Creatinine 0.93, Estimat Glomerular Filtration Rate 59, BUN/Creatinine Ratio 12, Glucose Level 95, Calcium Level 7.5L, Corrected Calcium 8.2L, Total Bilirubin 0.3, Aspartate Amino Transf (AST/SGOT) 17, Alanine Aminotransferase (ALT/SGPT) 10, Alkaline Phosphatase 97, Total Protein 5.7L, Albumin 3.1L Microbiology 11/14/20 Urine Culture - Final, Complete Mixed Bacterial Marilin Proteus species Gram Negative Ildefonso See Comments Assessment/Plan Assessment/Plan Assessment/Plan Nausea, Vomiting Dehydration Pneumonia, possibly residual from COVID-19 UTI Hypokalemia Hypocalcemia Leukopenia Replace potassium and calcium Continue zofran and phenergan for nausea, encourage oral intake as tolerated Encourage ambulation, IS DVT/GI ppx Medical management per primary VERONICA WHALEN DO 11/17/20 1809: Subjective Time Seen by a Provider: 09:12 Subjective/Events-last exam Pt seen and examined, states she is eating fine; however nurse states she is still having nausea and not really eating much. Denies abd pain. Review of Systems General: No Chills; Fatigue HEENT: No Head Aches Pulmonary: Dyspnea; No Cough Cardiovascular: No: Chest Pain, Palpitations, Edema Gastrointestinal: Nausea; No: Vomiting, Abdominal Pain Genitourinary: No Dysuria, No Hematuria Objective Exam General Appearance: No Apparent Distress, Chronically ill HEENT: PERRL/EOMI Respiratory: No Accessory Muscle Use, No Respiratory Distress, Decreased Breath Sounds (bilateral bases) Cardiovascular: Regular Rate, Rhythm, No Murmur Gastrointestinal: non tender, soft; No distended Extremity: Non Tender, No Calf Tenderness, No Pedal Edema Assessment/Plan Assessment/Plan Assessment/Plan Dehydration, intractable Nausea and Pneumonia - possibly residual from COVID-19 UTI Hypokalemia Hypocalcemia Leukopenia Replace potassium and calcium Continue zofran and phenergan for nausea, encourage oral intake as tolerated Encourage ambulation, IS DVT/GI ppx Medical management per primary Supervisory-Addendum Brief Verification & Attestation Participated in pt care: history, MDM, physical Personally performed: exam, history, MDM Care discussed with: Medical Student Procedures: n/a Verification and Attestation of Medical Student E/M Service A medical student performed and documented this service. I then reviewed and verified all information documented by the medical student and made modif ications to such information, when appropriate. I personally performed a physical exam, medical decision making and then discussed any differences between the notes and made revisions as necessary to create one note. Veronica Whalen , 11/17/20 , 18:08 MARYBETH ELLIOTT,MED STUDENT Nov 17, 2020 07:31 VERONICA WHALEN DO Nov 17, 2020 18:09
[2020-11-17] MEDS: ONDANSETRON 4 MG/2 ML (SDV) Z0FRAN IVP PRN (08:14)
[2020-11-17] MEDS: ENOXAPARIN 40 MG/0.4 ML (LOVENOX) SYR SC SCH ×2 (08:15→20:18)
[2020-11-17] MEDS: SENNA W/DOCUSATE (SENOKOT S) TABLET PO SCH ×2 (09:00→20:18)
[2020-11-17] MEDS ORDERED: PANTOPRAZOLE 40 MG (PROTONIX) TAB PO SCH (09:00)
--- NOTE | 2020-11-17 09:12 | Cardiology Progress Note ---
Subjective Date Seen by Provider: Nov 17, 2020 Time Seen by Provider: 09:10 Subjective/Events-last exam patient was seen at bedside, having some shortness of breath, tachycardic. Review of Systems General: No Chills, No Night Sweats, No Fatigue, No Malaise, No Appetite, No Other HEENT: No Head Aches, No Visual Changes, No Eye Pain, No Ear Pain, No Dysphasia, No Sinus Congestion, No Post Nasal Drip, No Sore Throat, No Other Pulmonary: No Dyspnea, No Cough, No Pleuritic Chest Pain, No Other Cardiovascular: No: Chest Pain, Palpitations, Orthopnea, Paroxysmal Noc. Dyspnea, Edema, Lt Headedness, Other Objective-Cardiology Exam Last Set of Vital Signs Vital Signs 11/14/20 11/17/20 11/17/20 11/17/20 16:00 04:00 06:37 07:26 Temp 36.8 Pulse 110 Resp 24 B/P (MAP) 146/68 (94) Pulse Ox 95 O2 Delivery Room Air FiO2 21 Capillary Refill : Less Than 3 Seconds I&O Intake and Output 11/16/20 23:59 Intake Total 2560 ml Output Total 450 ml Balance 2110 ml Intake Oral 1360 ml IV Total 1200 ml Output Urine Total 450 ml # Voids 9 # Bowel Movements 2 General: Alert, Oriented X3, Cooperative HEENT: Atraumatic, PERRLA Neck: Supple, No JVD, No Thyromegaly Lungs: Normal Air Movement, Other (bilateral rhonchi) Heart: Normal S1, Normal S2, No Murmurs, Other (tachycardia) Abdomen: Normal Bowel Sounds, Soft, No Tenderness, No Hepatosplenomegaly, No Masses Extremities: No Clubbing, No Cyanosis, No Edema, Normal Pulses, No Tenderness/Swelling Skin: No Rashes, No Breakdown, No Significant Lesion Neuro: Normal Speech, Normal Tone, Sensation Intact Psych/Mental Status: Mental Status NL, Mood NL Results Lab Laboratory Tests 11/17/20 05:37 A/P-Cardiology Admission Diagnosis pneumonia CAD HTN HLP Assessment/Plan s/p COVID, received monoclonal antibody treatment, continues to c/o persistent nausea and loss of appetite, management per Dr. Barnes Hypokalemia, received 20 mEq IV potassium. Monitor electrolytes. Sinus tachycardia, occasional PVCs. In [facility] Toprol-XL 100 mg daily. Continue to monitor Bilateral pneumonia, on antibiotic, management per Dr. Barnes. [place] diverticulum, attempt for surgical repair was done late in December 2018 in [facility], has failed attempt for surgery in the past, follows with GI at . History of esophageal paresis and GI bleed, unknown etiology Coronary artery disease, history of stent to the right coronary artery in 2009 using 3.512 mm Ion stent, last stress test done in December 2018 showing no ischemia or infarction with normal LV function. Continue to monitor Hypertension, mildly elevated, conitnue to monitor. Hyperlipidemia, maintained on Lipitor Anemia of chronic disease followed with oncology History of liver injury secondary to trauma and bleed. History of chronic kidney disease, was on dialysis in November 2015, currently off dialysis. Diabetic nephropathy, she has been following with [facility] Mild bilateral carotid stenosis, ultrasound was done in November 2018. Continue to monitor JOHN was normal done in November 2018. Continue to monitor Diabetes mellitus, followed and managed by primary care physician History of breast cancer, had lumpectomy on the left and radiation, followed by primary care physician History of DVT at the left arm related to PICC line, in 2002. History of glaucoma History of renal artery stenosis, had a stent done in 2013, continue to monitor Hypothyroidism Status post recent right shoulder surgery with ABBI Beaver MD Nov 17, 2020 09:12
[2020-11-17] MEDS: PROMETHAZINE INJ 25 MG/ML (PHENERGAN) AMP IV PRN (10:13)
--- NOTE | 2020-11-17 10:26 | NUR ---
Nauseated this am, no vomiting but looks pale. Zofran given with little results so gave Phenergan IV, first vial spilled so new vial retrieved from the med room. Patient unable to take PO meds at this time. Dr Singh aware of nausea and ordered EKG however no other orders given.
--- NOTE | 2020-11-17 10:35 | Physical Therapy Daily Note ---
PT Daily Note-Current Subjective Patient c/o nausea and reluctantly agrees to PT. Mental Status Patient Orientation: Normal For Age Attachments: IV Transfers SCALE: Activities may be completed with or without assistive devices. 8-Wceabddwpp-tobqohd completes the activity by him/herself with no assistance from a helper. 5-Set-up or Clean-up Assistance-helper sets up or cleans up; patient completes activity. [place] assists only prior to or following the activity. 4-Supervision or Touching Assistance-helper provides verbal cues and/or touching/steadying and/or contact guard assistance as patient completes activity. Assistance may be provided throughout the activity or intermittently. 3-Partial/Moderate Assistance-helper does LESS THAN HALF the effort. [place] lifts, holds or supports trunk or limbs, but provides less than half the effort. 2-Substantial/Maximal Assistance-helper does MORE THAN HALF the effort. [place] lifts or holds trunk or limbs and provides more than half the effort. 2-Agcbefpfz-ypeedy does ALL the effort. Patient does none of the effort to complete the activity. Or, the assistance of 2 or more helpers is required for the patient to complete the activity. If activity was not attempted, code reason: 7-Patient Refused. 9-Not Applicable-not attempted and the patient did not perform the activity before the current illness, exacerbation or injury. 10-Not Attempted due to Environmental Limitations-(lack of equipment, weather restraints, etc.). 88-Not Attempted due to Medical Conditions or Safety Concerns. Lying to Sitting/Side of Bed(Q: 4 Sit to Stand (QC): 4 Chair/The-hm-Ihopd Xfer(QC): 4 Toilet Transfer (QC): 4 Gait Training Does the Patient Walk?: Yes Distance: 200' Walk 10 feet (QC): 4 Walk 50 ft with 2 Turns(QC): 4 Walk 150 ft (QC): 4 Gait Assistive Device: FWW steady gait sequence with FWW Assessment Patient tolerates minimal activity on this date. Patient very emotional due to nausea. Patient is up in recliner with needs met. PT Half-Way Goals Intelligence Director Goals PT Intelligence Director Goals Time Frame: Nov 25, 2020 Roll Left & Right (QC): 6 Sit to Lying (QC): 6 Lying-Sitting on Side/Bed(QC): 6 Sit to Stand (QC): 6 Chair/Lde-pc-Dwbrt Xfer(QC): 6 Toilet Transfer (QC): 6 Car Transfer (QC): 6 Does the Patient Walk: Yes Walk 10 feet (QC): 6 Walk 50ft with 2 Turns (QC): 6 Walk 150 ft (QC): 6 Walking 10ft on Uneven Surface: 6 1 Step (curb) (QC): 6 4 Steps (QC): 6 12 Steps (QC): 9 Picking up an Object (QC): 6 (seated position) Does the Pt use WC or Scooter?: No PT Plan Treatment/Plan Treatment Plan: Continue Plan of Care Treatment Plan: Education, Functional Activity Tay, Functional Strength, Gait, Safety, Therapeutic Exercise, Transfers Treatment Duration: Nov 25, 2020 Frequency: 6 times per week Estimated Hrs Per Day: .25 hour per day Patient and/or Family Agrees t: Yes Time/GCodes Time In: 950 Time Out: 1001 Total Billed Treatment Time: 11 Total Billed Treatment 1 visit FA 11 min NESHA CHOUDHURY PT Nov 17, 2020 10:35
--- NOTE | 2020-11-17 11:33 | NUR ---
Pt declines Communion stating she does not feel so well for it.
--- NOTE | 2020-11-17 11:42 | Progress Note - Hospitalist ---
Subjective HPI/CC On Admission Date Seen by Provider: Nov 17, 2020 Time Seen by Provider: 10:30 CC: Nausea and vomiting and diarrhea HPI: This is a 70yoWF known to me from prior hospital stays who presents after a two month course of nausea and vomiting impaction that started at the first part of September, then she was exposed to Covid, she was positive and essentially asymptomatic except for nausea and vomiting who continued to have issues. She started running a fever, found to have pneumonia and profound dehydration with tachycardia and she has since become much improved. IV fluids still going at 100cc. We will initiate PT and OT and inpatient rehab evaluation in order to start her recovery. Subjective/Events-last exam Pt doing pretty well Remains pale Nausea continues Zofran and Phenergan maintained Dr. Singh checked EKG and everything was fine Reglan will be started 10mg IV Q6 hrs Review of Systems General: Fatigue, Malaise Gastrointestinal: Nausea, Vomiting Objective Exam Vital Signs Vital Signs Date Time Temp Pulse Resp B/P (MAP) Pulse Ox O2 Delivery O2 Flow Rate FiO2 11/18/20 03:56 36.4 104 20 147/70 (95) 92 Room Air 11/14/20 16:00 21 Capillary Refill : Less Than 3 SecondsLess Than 3 Seconds General Appearance: No Apparent Distress, WD/WN, Chronically ill Respiratory: Chest Non Tender, Lungs Clear, Normal Breath Sounds, No Accessory Muscle Use, No Respiratory Distress Cardiovascular: Regular Rate, Rhythm, No Edema, No Gallop, No JVD, No Murmur, Normal Peripheral Pulses Neurologic/Psychiatric: Alert, Oriented x3, No Motor/Sensory Deficits, Normal Mood/Affect Results/Procedures Lab Laboratory Tests 11/17/20 05:37 Patient resulted labs reviewed. Assessment/Plan Assessment and Plan Assess & Plan/Chief Complaint Assessment: Dehydration N/V/D from gastroenteritis CARMEL Severe debility from COVID-19 residual HTN CAD COPD Hypoxia baseline OA Plan: IVF Supportive care PT OT IRF? 11/16/20: Dr Whalen and Dr Singh consult DC Doxy 11/17 IV in case it is a factor for N/V 11/17/20: Reglan Monitor electrolytes Diagnosis/Problems Diagnosis/Problems (1) Nausea vomiting and diarrhea Status: Acute (2) 2019 novel coronavirus disease (COVID-19) Status: Acute (3) Mild dehydration Status: Acute (4) Generalized weakness Status: Acute (5) Pneumonia Status: Acute Qualifiers: Pneumonia type: due to unspecified organism Laterality: bilateral Lung location: lower lobe of lung Qualified Codes: J18.9 - Pneumonia, unspecified organism (6) Dehydration Status: Acute (7) Viral syndrome Status: Acute (8) Type 2 diabetes mellitus Status: Chronic (9) Normocytic anemia Status: Acute (10) Restless leg syndrome Status: Chronic (11) Renal insufficiency (12) Hyperlipidemia Status: Chronic (13) Essential hypertension Status: Chronic (14) Coronary artery disease Status: Chronic OLIVE ISAAC DO Nov 17, 2020 11:42
[2020-11-17] MEDS: LACTATED RINGERS 1,000 ML IV SCH ×2 (11:45→23:41)
[2020-11-17] MEDS: FOLIC ACID 1 MG TAB PO SCH (11:47)
[2020-11-17] MEDS: HYDROXYCHLOROQUINE 200 MG (PLAQUENIL) TAB PO SCH ×2 (11:47→17:48)
[2020-11-17] MEDS: toPIRamate 25 MG (TOPAMAX) TAB PO SCH ×2 (11:48→20:18)
[2020-11-17] MEDS: PANTOPRAZOLE 40 MG (PROTONIX) TAB PO SCH (11:48)
[2020-11-17] MEDS: VITAMIN D3 25 MCG (1,000 UNITS) TABLET PO SCH (11:48)
[2020-11-17] MEDS: amLODIPine 10 MG (NORVASC) TAB PO SCH (11:49)
[2020-11-17] MEDS: meTOprolol SUCCINATE 100 MG (TOPROL XL) TAB PO SCH (11:49)
[2020-11-17] MEDS: DULoxetine 30 MG (CYMBALTA) CAP PO SCH (12:37)
[2020-11-17] MEDS: METOCLOPRAMIDE INJ 10 MG/2 ML (REGLAN) IVP SCH ×4 (12:37→23:37)
--- NOTE | 2020-11-17 13:17 | NUR ---
CM/SS: Visited with pt as per Social Service Consult related to living alone, no food or help in the home. Plan: Pt is from home and will likely return there. Summary: Talk with pt related to the Social Service Consult she reports she does have food, she does not have the energy to fix it and may need help with that. Discussed with pt services through [facility]. Pt is ok for this worker to call and talk with them as to what they can help her with. Telephone Call to Lisa Hewitt - [phone] - [facility]. She is able to explain the [place]it[place] Act and the medicaid program. She suggest that pt apply for [place] Medicaid. This worker talks with pt further and she is open to getting the application - this worker provides the application and will talk with pt once she has had time to think about it. She also reports that her son can be called for additional information. This worker will follow up.
--- NOTE | 2020-11-17 13:46 | Occupational Ther Daily Note ---
OT Current Status-Daily Note Subjective Pt alert, lying in bed. Pt agrees to therapy. C/o nausea and choking with food. Mental Status/Objective Patient Orientation: Person, Place, Time, Situation Attachments: IV ADL-Treatment Discussed with pt types of food that causes her to choke and different chin tucks to assist with swallowing. Pt stated that mash potato consistency is easier to swallow and that she has tried chin tuck and chin tuck to the L side and stated that she did not see much difference. Pt still wanted to try to eat, suggestion of Anastasiya and pt was agreeable. Pt able to eat 5 bites without choking. Pt stated that since she felt nauseated that she did not want to take a sponge bath, but would like warm bath pack to wash under arms and face. Pt able to complete this without difficulty. After session, pt lying in bed with call light/phone in reach. All needs met in room. Therapy Code Descriptions/Definitions Functional [place] Measure: 0=Not Assessed/NA 4=Minimal Assistance 1=Total Assistance 5=Supervision or Setup 2=Maximal Assistance 6=Modified [place] 3=Moderate Assistance 7=Complete IndependenceSCALE: Activities may be completed with or without assistive devices. 5-Cateirihxl-izqiumv completes the activity by him/herself with no assistance from a helper. 5-Set-up or Clean-up Assistance-helper sets up or cleans up; patient completes activity. [place] assists only prior to or following the activity. 4-Supervision or Touching Assistance-helper provides verbal cues and/or touching/steadying and/or contact guard assistance as patient completes activity. Assistance may be provided throughout the activity or intermittently. 3-Partial/Moderate Assistance-helper does LESS THAN HALF the effort. [place] lifts, holds or supports trunk or limbs, but provides less than half the effort. 2-Substantial/Maximal Assistance-helper does MORE THAN HALF the effort. [place] lifts or holds trunk or limbs and provides more than half the effort. 8-Tolocooyz-ozfpwe does ALL the effort. Patient does none of the effort to complete the activity. Or, the assistance of 2 or more helpers is required for the patient to complete the activity. If activity was not attempted, code reason: 7-Patient Refused. 9-Not Applicable-not attempted and the patient did not perform the activity before the current illness, exacerbation or injury. 10-Not Attempted due to Environmental Limitations-(lack of equipment, weather restraints, etc.). 88-Not Attempted due to Medical Conditions or Safety Concerns. Eating (QC): 6 OT Short Term Goals Short Term Goals Time Frame: Nov 22, 2020 Eatin Oral hygiene: 5 Toileting hygiene: 4 Shower/bathe self: 4 Upper body dressin Lower body dressin Putting on/taking off footwear: 4 OT Art Education Professor Goals Senior Living Goals Time Frame: Nov 29, 2020 Eating (QC): 6 Oral Hygiene (QC): 6 Toileting Hygiene (QC): 6 Shower/Bathe Self (QC): 4 Upper Body Dressing (QC): 6 Lower Body Dressing (QC): 6 On/Off Footwear (QC): 6 Additional Goals: 1-Demonstrate ADL Tasks, 2-Verbalize Understanding, 3- ImproveStrength/Tay 1=Demonstrate adherence to instructed precautions during ADL tasks. 2=Patient will verbalize/demonstrate understanding of assistive devices/modifications for ADL. 3=Patient will improve strength/tolerance for activity to enable patient to perform ADL's. OT Education/Plan Problem List/Assessment Assessment: Decreased Activ Tolerance Discharge Recommendations Plan/Recommendations: Continue POC Treatment Plan/Plan of Care Patient would benefit from OT for education, treatment and training to promote independence in ADL's, mobility, safety and/or upper extremity function for ADL's. Plan of Care: ADL Retraining, Functional Mobility, UE Funct Exercise/Act Treatment Duration: Nov 29, 2020 Frequency: 5 times per week Estimated Hrs Per Day: .25 hour per day Agreement: Yes Rehab Potential: Fair Time/GCodes Start Time: 13:26 Stop Time: 13:39 Total Time Billed (hr/min): 13 Billed Treatment Time 1 visit-FA 1 (13 min) PORTER VICTORIA Nov 17, 2020 13:46
[2020-11-18] VITALS (12 sets, daily range): BP systolic 110–159; BP diastolic 61–93
[2020-11-18] MEDS: CEFEPIME 1,000 MG/SWFI 10 ML IV PUSH IV SCH ×6 (01:52→19:05)
[2020-11-18 05:58] LABS: BASOPHILS % (AUTO) 0 % (0-10); EOSINOPHILS % (AUTO) 0 % (0-10); HEMATOCRIT 36 % (35-52); HEMOGLOBIN 11.7 g/dL (11.5-16.0); LYMPHOCYTES # (AUTO) 1.4 10^3/uL (1.0-4.0); LYMPHOCYTES % (AUTO) 28 % (12-44); MEAN CORPUSCULAR HEMOGLOBIN 29 pg (25-34); MEAN CORPUSCULAR HGB CONC 33 g/dL (32-36); MEAN CORPUSCULAR VOLUME 88 fL (80-99); MONOCYTES # (AUTO) 0.5 10^3/uL (0.0-1.0); MONOCYTES % (AUTO) 11 % (0-12); NEUTROPHILS # (AUTO) 2.9 10^3/uL (1.8-7.8); NEUTROPHILS % (AUTO) 60 % (42-75); PLATELET COUNT 232 10^3/uL (130-400); WHITE BLOOD COUNT 4.8 10^3/uL (4.3-11.0)
[2020-11-18 06:06] LABS: ALBUMIN 3.2 GM/DL (3.2-4.5); POTASSIUM 3.3 MMOL/L (3.6-5.0)
[2020-11-18] MEDS: predniSONE 5 MG TAB PO SCH (06:06)
[2020-11-18] MEDS: METOCLOPRAMIDE INJ 10 MG/2 ML (REGLAN) IVP SCH ×3 (06:06→19:05)
[2020-11-18 06:08] LABS: CALCIUM 7.7 MG/DL (8.5-10.1)
[2020-11-18 06:09] LABS: TOTAL PROTEIN 6.1 GM/DL (6.4-8.2)
[2020-11-18] MEDS: inSUlin ASPART (NovoLOG) 1 UNIT/0.01 ML (CHARGE PER UNIT) SC SCH ×4 (06:10→20:12)
[2020-11-18 06:11] LABS: BILIRUBIN,TOTAL 0.3 MG/DL (0.1-1.0)
[2020-11-18 06:12] LABS: CREATININE SERUM 0.97 MG/DL (0.60-1.30)
[2020-11-18] MEDS: POTASSIUM CL 10MEQ/50ML IVPB 50 ML IV SCH ×4 (06:14→12:51)
--- NOTE | 2020-11-18 07:49 | Progress Note - Surgery ---
MARYBETH ELLIOTT,MED STUDENT 11/18/20 0749: Subjective Date Seen by a Provider: Nov 18, 2020 Time Seen by a Provider: 06:53 Subjective/Events-last exam Pt seen and examined this morning. States she is feeling better and feels like her dyspnea is improved some. Nursing states she is still pretty short of breath with exertion. Denies any nausea overnight. Did have multiple loose stools. Denies abdominal pain, fever, chills. Review of Systems General: No Chills; Fatigue HEENT: No Head Aches Pulmonary: Dyspnea; No Cough Cardiovascular: No: Chest Pain, Edema Gastrointestinal: Diarrhea; No: Nausea, Vomiting, Abdominal Pain, Melena, Hematochezia Neurological: Weakness; No: Confusion Objective Exam Vital Signs Date Time Temp Pulse Resp B/P (MAP) Pulse Ox O2 Delivery O2 Flow Rate FiO2 11/18/20 03:56 36.4 104 20 147/70 (95) 92 Room Air 11/18/20 01:00 101 11/17/20 23:40 36.8 101 22 140/69 (92) 92 Room Air 11/17/20 20:22 37.0 109 17 148/70 (96) 97 Room Air 11/17/20 20:15 Room Air 11/17/20 19:00 110 11/17/20 18:16 94 Room Air 11/17/20 16:21 37.2 95 18 139/63 (88) 95 Room Air 11/17/20 12:29 100 11/17/20 11:54 37.7 98 20 131/70 (90) 96 Room Air 11/17/20 08:00 36.8 110 22 161/77 (105) 94 Room Air 11/17/20 08:00 94 Room Air I & O 11/18/20 07:00 Intake Total 1735 ml Output Total 1950 ml Balance -215 ml Capillary Refill : Less Than 3 SecondsLess Than 3 Seconds General Appearance: No Apparent Distress, Chronically ill HEENT: PERRL/EOMI; No Moist Mucous Membranes Respiratory: Lungs Clear, No Accessory Muscle Use, No Respiratory Distress, Decreased Breath Sounds (bilateral bases) Cardiovascular: Regular Rate, Rhythm, No Edema, No Murmur Peripheral Pulses: 2+ Radial Pulses (R), 2+ Radial Pulses (L) Gastrointestinal: normal bowel sounds, non tender, soft; No distended Extremity: No Calf Tenderness, No Pedal Edema Neurologic/Psychiatric: Alert, Oriented x3, No Motor/Sensory Deficits, Normal Mood/Affect Skin: Normal Color, Warm/Dry Results Lab Laboratory Tests 11/17/20 08:10: Glucometer 111H 11/17/20 11:05: Glucometer 106 11/17/20 16:03: Glucometer 93 11/17/20 20:29: Glucometer 85 11/18/20 05:40: White Blood Count 4.8, Red Blood Count 4.10, Hemoglobin 11.7, Hematocrit 36, Mean Corpuscular Volume 88, Mean Corpuscular Hemoglobin 29, Mean Corpuscular Hemoglobin Concent 33, Red Cell Distribution Width 12.9, Platelet Count 232, Mean Platelet Volume 10.0, Immature Granulocyte % (Auto) 0, Neutrophils (%) (Auto) 60, Lymphocytes (%) (Auto) 28, Monocytes (%) (Auto) 11, Eosinophils (%) (Auto) 0, Basophils (%) (Auto) 0, Neutrophils # (Auto) 2.9, Lymphocytes # (Auto) 1.4, Monocytes # (Auto) 0.5, Eosinophils # (Auto) 0.0, Basophils # (Auto) 0.0, Immature Granulocyte # (Auto) 0.0, Sodium Level 138, Potassium Level 3.3L, Chloride Level 106, Carbon Dioxide Level 20L, Anion Gap 12, Blood Urea Nitrogen 11, Creatinine 0.97, Estimat Glomerular Filtration Rate 56, BUN/Creatinine Ratio 11, Glucose Level 83, Calcium Level 7.7L, Corrected Calcium 8.3L, Total Bilirubin 0.3, Aspartate Amino Transf (AST/SGOT) 21, Alanine Aminotransferase (ALT/SGPT) 12, Alkaline Phosphatase 136, Total Protein 6.1L, Albumin 3.2 Microbiology 11/14/20 Urine Culture - Final, Complete Mixed Bacterial Marilin Proteus species Gram Negative Ildefonso See Comments Assessment/Plan Assessment/Plan Assessment/Plan Dehydration, intractable Nausea and Pneumonia - possibly residual from COVID-19 UTI Hypokalemia Hypocalcemia Replace potassium and calcium Continue zofran and phenergan for nausea, encourage oral intake as tolerated Encourage ambulation, IS DVT/GI ppx Medical management per primary VERONICA WHALEN DO 11/18/20 1555: Subjective Time Seen by a Provider: 15:37 Subjective/Events-last exam Pt seen and examined, states she is doing much better and not really having any nausea. Denies abdominal pain. Review of Systems General: No Chills; Fatigue HEENT: No Head Aches Pulmonary: Dyspnea; No Cough Cardiovascular: No: Chest Pain, Edema Gastrointestinal: Diarrhea; No: Nausea, Vomiting, Abdominal Pain, Melena, Hematochezia Objective Exam General Appearance: No Apparent Distress, Chronically ill HEENT: PERRL/EOMI, Moist Mucous Membranes Respiratory: Lungs Clear, No Accessory Muscle Use, No Respiratory Distress, Decreased Breath Sounds (bilateral bases) Cardiovascular: Regular Rate, Rhythm, No Murmur Gastrointestinal: normal bowel sounds, non tender, soft; No distended Assessment/Plan Assessment/Plan Assessment/Plan Dehydration, intractable Nausea and Pneumonia - possibly residual from COVID-19 UTI Hypokalemia Hypocalcemia Replace potassium and calcium Continue zofran and phenergan as needed for nausea, encourage oral intake as tolerated Encourage ambulation, IS DVT/GI ppx Supervisory-Addendum Brief Verification & Attestation Participated in pt care: history, MDM, physical Personally performed: exam, history, MDM Care discussed with: Medical Student Procedures: n/a Verification and Attestation of Medical Student E/M Service A medical student performed and documented this service. I then reviewed and verified all information documented by the medical student and made modifications to such information, when appropriate. I personally performed a physical exam, medical decision making and then discussed any differences between the notes and made revisions as necessary to create one note. Veronica Whalen , 11/18/20 , 15:55 MARYBETH ELLIOTT,MED STUDENT Nov 18, 2020 07:49 VERONICA WHALEN DO Nov 18, 2020 15:55
[2020-11-18] MEDS: RT-ALBUTEROL SULF 2.5 MG/3 ML PRE-MIX VIAL INH SCH (08:05)
[2020-11-18] MEDS: HYDROXYCHLOROQUINE 200 MG (PLAQUENIL) TAB PO SCH ×2 (08:39→19:05)
[2020-11-18] MEDS: ENOXAPARIN 40 MG/0.4 ML (LOVENOX) SYR SC SCH ×2 (08:39→21:32)
[2020-11-18] MEDS: meTOprolol SUCCINATE 100 MG (TOPROL XL) TAB PO SCH (08:40)
[2020-11-18] MEDS: PANTOPRAZOLE 40 MG (PROTONIX) TAB PO SCH (08:40)
[2020-11-18] MEDS: DULoxetine 30 MG (CYMBALTA) CAP PO SCH (08:40)
[2020-11-18] MEDS: toPIRamate 25 MG (TOPAMAX) TAB PO SCH ×2 (08:40→21:32)
[2020-11-18] MEDS: FOLIC ACID 1 MG TAB PO SCH (08:40)
[2020-11-18] MEDS: VITAMIN D3 25 MCG (1,000 UNITS) TABLET PO SCH (08:40)
[2020-11-18] MEDS: amLODIPine 10 MG (NORVASC) TAB PO SCH (08:47)
[2020-11-18] MEDS: SENNA W/DOCUSATE (SENOKOT S) TABLET PO SCH ×2 (09:00→20:15)
--- NOTE | 2020-11-18 09:36 | Physical Therapy Daily Note ---
PT Daily Note-Current Subjective Patient reports she feels better today. Agrees to PT. Mental Status Patient Orientation: Normal For Age Attachments: IV Transfers SCALE: Activities may be completed with or without assistive devices. 5-Ndvgjjkitc-dreddzo completes the activity by him/herself with no assistance from a helper. 5-Set-up or Clean-up Assistance-helper sets up or cleans up; patient completes activity. [place] assists only prior to or following the activity. 4-Supervision or Touching Assistance-helper provides verbal cues and/or touching/steadying and/or contact guard assistance as patient completes activity. Assistance may be provided throughout the activity or intermittently. 3-Partial/Moderate Assistance-helper does LESS THAN HALF the effort. [place] lifts, holds or supports trunk or limbs, but provides less than half the effort. 2-Substantial/Maximal Assistance-helper does MORE THAN HALF the effort. [place] lifts or holds trunk or limbs and provides more than half the effort. 0-Zednvkxjq-vzgbei does ALL the effort. Patient does none of the effort to complete the activity. Or, the assistance of 2 or more helpers is required for the patient to complete the activity. If activity was not attempted, code reason: 7-Patient Refused. 9-Not Applicable-not attempted and the patient did not perform the activity before the current illness, exacerbation or injury. 10-Not Attempted due to Environmental Limitations-(lack of equipment, weather restraints, etc.). 88-Not Attempted due to Medical Conditions or Safety Concerns. Lying to Sitting/Side of Bed(Q: 5 Sit to Stand (QC): 4 Chair/Lev-ub-Spvzn Xfer(QC): 4 SBA with upright mobility Gait Training Does the Patient Walk?: Yes Distance: 180' Walk 10 feet (QC): 4 Walk 50 ft with 2 Turns(QC): 4 Walk 150 ft (QC): 4 Gait Assistive Device: FWW functional gait sequence (patient limits distance and adamantly declined to go farther) Assessment Patient refused exercises. She is up in recliner with needs met. PT Semiconductor Processor Goals Semiconductor Processor Goals PT Senior Care Goals Time Frame: Nov 25, 2020 Roll Left & Right (QC): 6 Sit to Lying (QC): 6 Lying-Sitting on Side/Bed(QC): 6 Sit to Stand (QC): 6 Chair/Lck-hb-Esirk Xfer(QC): 6 Toilet Transfer (QC): 6 Car Transfer (QC): 6 Does the Patient Walk: Yes Walk 10 feet (QC): 6 Walk 50ft with 2 Turns (QC): 6 Walk 150 ft (QC): 6 Walking 10ft on Uneven Surface: 6 1 Step (curb) (QC): 6 4 Steps (QC): 6 12 Steps (QC): 9 Picking up an Object (QC): 6 (seated position) Does the Pt use WC or Scooter?: No PT Plan Treatment/Plan Treatment Plan: Continue Plan of Care Treatment Plan: Education, Functional Activity Tay, Functional Strength, Gait, Safety, Therapeutic Exercise, Transfers Treatment Duration: Nov 25, 2020 Frequency: 6 times per week Estimated Hrs Per Day: .25 hour per day Patient and/or Family Agrees t: Yes Time/GCodes Time In: 834 Time Out: 846 Total Billed Treatment Time: 12 Total Billed Treatment 1 visit FA 12 min NESHA CHOUDHURY PT Nov 18, 2020 09:36
[2020-11-18] MEDS: ONDANSETRON 4 MG/2 ML (SDV) Z0FRAN IVP PRN (10:55)
--- NOTE | 2020-11-18 11:38 | Occupational Ther Daily Note ---
OT Current Status-Daily Note Subjective Pt AxO. Pt expresses just got from recliner to bed. Pt states nausea. Pt denies contacting nurse for nausea medication. Pt agrees to oral care/ face washing. Denies OOB. Mental Status/Objective Patient Orientation: Person, Place, Situation, Normal For Age ADL-Treatment Therapy Code Descriptions/Definitions Functional [place] Measure: 0=Not Assessed/NA 4=Minimal Assistance 1=Total Assistance 5=Supervision or Setup 2=Maximal Assistance 6=Modified [place] 3=Moderate Assistance 7=Complete IndependenceSCALE: Activities may be completed with or without assistive devices. 9-Rdncdvwuex-mfifyzb completes the activity by him/herself with no assistance from a helper. 5-Set-up or Clean-up Assistance-helper sets up or cleans up; patient completes activity. [place] assists only prior to or following the activity. 4-Supervision or Touching Assistance-helper provides verbal cues and/or touching/steadying and/or contact guard assistance as patient completes activity. Assistance may be provided throughout the activity or intermittently. 3-Partial/Moderate Assistance-helper does LESS THAN HALF the effort. [place] lifts, holds or supports trunk or limbs, but provides less than half the effort. 2-Substantial/Maximal Assistance-helper does MORE THAN HALF the effort. [place] lifts or holds trunk or limbs and provides more than half the effort. 8-Ouhsphols-ylbbqi does ALL the effort. Patient does none of the effort to complete the activity. Or, the assistance of 2 or more helpers is required for the patient to complete the activity. If activity was not attempted, code reason: 7-Patient Refused. 9-Not Applicable-not attempted and the patient did not perform the activity b efore the current illness, exacerbation or injury. 10-Not Attempted due to Environmental Limitations-(lack of equipment, weather restraints, etc.). 88-Not Attempted due to Medical Conditions or Safety Concerns. Eating (QC): 6 (able to bring water to mouth IND.) Oral Hygiene (QC): 5 (requires s/u for packaging while in bed. Completes all c are with SBA after s/u) Shower/Bathe Self (QC): 7 (denies at this time. ) Toileting Hygiene (QC): 7 Toilet Transfer (QC): 7 Other Treatment Pt in bed, agrees to wash face/ brush teeth, denies OOB. Pt completes as outlined, SBA for face washing. Pt requests hair brush, able to complete with min A due to positioning in bed/ back of head. Pt left in bed with all needs met, call light in reach, educated to get assist to get out of bed later today/ up for lunch. Pt agrees. Education OT Patient Education: Correct positioning, Modified ADL techniques, Purpose of tx/functional activities Teaching Recipient: Patient Teaching Methods: Demonstration, Discussion Response to Teaching: Verbalize Understanding, Return Demonstration OT Short Term Goals Short Term Goals Time Frame: Nov 22, 2020 Eatin Oral hygiene: 5 Toileting hygiene: 4 Shower/bathe self: 4 Upper body dressin Lower body dressin Putting on/taking off footwear: 4 OT Usp Goals Call Centre Supervisor Goals Time Frame: Nov 29, 2020 Eating (QC): 6 Oral Hygiene (QC): 6 Toileting Hygiene (QC): 6 Shower/Bathe Self (QC): 4 Upper Body Dressing (QC): 6 Lower Body Dressing (QC): 6 On/Off Footwear (QC): 6 Additional Goals: 1-Demonstrate ADL Tasks, 2-Verbalize Understanding, 3- ImproveStrength/Tay 1=Demonstrate adherence to instructed precautions during ADL tasks. 2=Patient will verbalize/demonstrate understanding of assistive devices/modifications for ADL. 3=Patient will improve strength/tolerance for activity to enable patient to perform ADL's. OT Education/Plan Problem List/Assessment Assessment: Decreased Activ Tolerance, Decreased UE Strength, Impaired I ADL's, Impaired Self-Care Skills Discharge Recommendations Plan/Recommendations: Continue POC Therapy Discharge Recommendati: Intermittent Supervision, Post Acute OT Treatment Plan/Plan of Care Treatment,Training & Education: Yes Patient would benefit from OT for education, treatment and training to promote independence in ADL's, mobility, safety and/or upper extremity function for ADL's. Plan of Care: ADL Retraining, Functional Mobility, UE Funct Exercise/Act Treatment Duration: Nov 29, 2020 Frequency: 5 times per week Estimated Hrs Per Day: .25 hour per day Agreement: Yes Rehab Potential: Fair Time/GCodes Start Time: 09:27 Stop Time: 09:44 Total Time Billed (hr/min): 17 Billed Treatment Time 1, ADL (17) MARIMAR TY OTR Nov 18, 2020 11:38
[2020-11-18] MEDS ORDERED: RT-ALBUTEROL/IPRATROPIUM 3 ML (DUONEB) VIAL INH PRN (12:00)
--- NOTE | 2020-11-18 12:03 | Progress Note - Hospitalist ---
Subjective HPI/CC On Admission Date Seen by Provider: Nov 18, 2020 Time Seen by Provider: 11:00 CC: Nausea and vomiting and diarrhea HPI: This is a 70yoWF known to me from prior hospital stays who presents after a two month course of nausea and vomiting impaction that started at the first part of September, then she was exposed to Covid, she was positive and essentially asymptomatic except for nausea and vomiting who continued to have issues. She started running a fever, found to have pneumonia and profound dehydration with tachycardia and she has since become much improved. IV fluids still going at 100cc. We will initiate PT and OT and inpatient rehab evaluation in order to start her recovery. Subjective/Events-last exam Patient pretty weak Not able to eat much more than broth Potassium supplement ordered No concerns otherwise Diarrhea prompting stool studies Review of Systems Gastrointestinal: Nausea, Vomiting, Abdominal Pain Focused Exam Lactate Level 11/18/20 18:45: Lactic Acid Level 1.08 Objective Exam Vital Signs Vital Signs Date Time Temp Pulse Resp B/P (MAP) Pulse Ox O2 Delivery O2 Flow Rate FiO2 11/19/20 07:22 36.6 11/19/20 06:00 76 27 137/76 (96) 99 Room Air 11/19/20 02:00 2.00 11/18/20 10:40 21 Capillary Refill : Less Than 3 SecondsLess Than 3 Seconds General Appearance: No Apparent Distress, WD/WN, Chronically ill Respiratory: Chest Non Tender, Lungs Clear, Normal Breath Sounds, No Accessory Muscle Use, No Respiratory Distress Cardiovascular: Regular Rate, Rhythm, No Edema, No Gallop, No JVD, No Murmur, Normal Peripheral Pulses Neurologic/Psychiatric: Alert, Oriented x3, No Motor/Sensory Deficits, Normal Mood/Affect Results/Procedures Lab Laboratory Tests 11/18/20 18:45 11/19/20 03:15 Patient resulted labs reviewed. Assessment/Plan Assessment and Plan Assess & Plan/Chief Complaint Assessment: Dehydration N/V/D from gastroenteritis CARMEL Severe debility from COVID-19 residual HTN CAD COPD Hypoxia baseline OA Plan: IVF Supportive care PT OT IRF? 11/16/20: Dr Whalen and Dr Singh consult DC Doxy 11/17 IV in case it is a factor for N/V 11/17/20: Reglan Monitor electrolytes 11/18/20: Stool studies IVF Supportive care Diagnosis/Problems Diagnosis/Problems (1) Nausea vomiting and diarrhea Status: Acute (2) 2019 novel coronavirus disease (COVID-19) Status: Acute (3) Mild dehydration Status: Acute (4) Generalized weakness Status: Acute (5) Pneumonia Status: Acute Qualifiers: Pneumonia type: due to unspecified organism Laterality: bilateral Lung location: lower lobe of lung Qualified Codes: J18.9 - Pneumonia, unspecified organism (6) Dehydration Status: Acute (7) Viral syndrome Status: Acute (8) Type 2 diabetes mellitus Status: Chronic (9) Normocytic anemia Status: Acute (10) Restless leg syndrome Status: Chronic (11) Renal insufficiency (12) Hyperlipidemia Status: Chronic (13) Essential hypertension Status: Chronic (14) Coronary artery disease Status: Chronic OLIVE ISAAC DO Nov 18, 2020 12:03
--- NOTE | 2020-11-18 12:51 | Cardiology Progress Note ---
Subjective Date Seen by Provider: Nov 18, 2020 Time Seen by Provider: 12:49 Subjective/Events-last exam Patient was seen at bedside, feeling better today. No new complaint. Review of Systems General: No Chills, No Night Sweats; Fatigue, Malaise; No Appetite, No Other HEENT: No Head Aches, No Visual Changes, No Eye Pain, No Ear Pain, No Dysphasia, No Sinus Congestion, No Post Nasal Drip, No Sore Throat, No Other Pulmonary: No Dyspnea, No Cough, No Pleuritic Chest Pain, No Other Cardiovascular: No: Chest Pain, Palpitations, Orthopnea, Paroxysmal Noc. Dyspnea, Edema, Lt Headedness, Other Gastrointestinal: Nausea Objective-Cardiology Exam Last Set of Vital Signs Vital Signs 11/18/20 11/18/20 10:40 12:38 Temp 36.1 Pulse 102 Resp 18 B/P (MAP) 133/69 (90) Pulse Ox 94 O2 Delivery Room Air FiO2 21 Capillary Refill : Less Than 3 SecondsLess Than 3 Seconds I&O Intake and Output 11/18/20 00:00 Intake Total 1685 ml Output Total 2350 ml Balance -665 ml Intake Oral 425 ml IV Total 1260 ml Output Urine Total 2150 ml Urine/Stool Mix 200 ml # Voids 5 # Bowel Movements 3 General: Alert, Oriented X3, Cooperative HEENT: Atraumatic, PERRLA Neck: Supple, No JVD, No Thyromegaly Lungs: Normal Air Movement, Other (bilateral rhonchi) Heart: Normal S1, Normal S2, No Murmurs, Other (tachycardia) Abdomen: Normal Bowel Sounds, Soft, No Tenderness, No Hepatosplenomegaly, No Masses Extremities: No Clubbing, No Cyanosis, No Edema, Normal Pulses, No Tenderness/Swelling Skin: No Rashes, No Breakdown, No Significant Lesion Neuro: Normal Speech, Normal Tone, Sensation Intact Psych/Mental Status: Mental Status NL, Mood NL Results Lab Laboratory Tests 11/18/20 05:40 A/P-Cardiology Admission Diagnosis pneumonia CAD HTN HLP Assessment/Plan s/p COVID, received monoclonal antibody treatment, continues to c/o persistent n ausea and loss of appetite, management per Dr. Barnes Hypokalemia, I gave another 20 mEq of IV potassium today. Continue to monitor electrolytes Sinus tachycardia, occasional PVCs. Continue on Toprol-XL 100 mg daily and monitor tolerance and response Bilateral pneumonia, on antibiotic, management per Dr. Barnes. 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 History of esophageal paresis and GI bleed, unknown etiology Coronary artery disease, history of stent to the right coronary artery in 2009 using 3.512 mm Ion stent, last stress test done in December 2018 showing no ischemia or infarction with normal LV function. Continue to monitor Hypertension, continue on current medication monitor blood pressure Hyperlipidemia, maintained on Lipitor Anemia of chronic disease followed with oncology History of liver injury secondary to trauma and bleed. History of chronic kidney disease, was on dialysis in November 2015, currently off dialysis. Diabetic nephropathy, she has been following with [facility] Mild bilateral carotid stenosis, ultrasound was done in November 2018. Continue to monitor JOHN was normal done in November 2018. Continue to monitor Diabetes mellitus, followed and managed by primary care physician History of breast cancer, had lumpectomy on the left and radiation, followed by primary care physician History of DVT at the left arm related to PICC line, in 2002. History of glaucoma History of renal artery stenosis, had a stent done in 2013, continue to monitor Hypothyroidism Status post recent right shoulder surgery with ABBI Beaver MD Nov 18, 2020 12:51
--- NOTE | 2020-11-18 14:08 | NUR ---
CM/SS: Attempted to follow up with pt as per our conversation from yesterday related to services in the home and [employer]. Pt is in bed at this time and remembers this worker. Pt reports that she does not want to be bothered and talk about anything at this. This worker will follow up at a later time.
--- NOTE | 2020-11-18 14:44 | NUR ---
Pt offered Communion but states she does not feel so well for it.
[2020-11-18] MEDS: RT-ALBUTEROL/IPRATROPIUM 3 ML (DUONEB) VIAL INH SCH ×3 (14:52→21:40)
--- NOTE | 2020-11-18 17:25 | Diagnostic Imaging Report ---
EXAMINATION: CT head without contrast. TECHNIQUE: Multiple contiguous axial images were obtained through the brain without the use of intravenous contrast. All CT scans use one or more of the following dose optimizing techniques: automated exposure control, MA and/or KvP adjustment based on patient size and exam type or iterative reconstruction. HISTORY: Right-sided weakness. Right-sided facial droop. Slurred speech. COMPARISON: 06/30/2020. FINDINGS: No large acute territorial ischemia, mass, or hemorrhage. No midline shift or mass effect. Decreased attenuation is seen in the periventricular and subcortical white matter. The ventricles and cortical sulci are prominent. The basilar cisterns are patent and unremarkable. The orbits are normal. Paranasal sinuses are normal. Mastoid air cells are clear. No soft tissue abnormality is seen. No osseus lesions or fractures are seen. IMPRESSION: 1. No large acute territorial ischemia, mass, or hemorrhage. 2. Chronic microvascular disease. 3. Generalized parenchymal volume loss. Dictated by: Dictated on workstation # [id number]
[2020-11-18] MEDS ORDERED: LORazepam INJ 2 MG/ML (ATIVAN) VIAL ONE ×2 (17:52)
--- NOTE | 2020-11-18 17:56 | Progress Note ---
Progress Note Called by med-surg nurse due to AMS and facial droop on the right side. Patient was unresponsive but then appeared to have right sided weakness so CVA protocol initiated and I moved patient to ICU [address] brain without contrast which was normal. VSS remained. Labs ordered and I arrived at the bedside to see patient was alert and trying to talk but clenching jaw. Finger Lift Operator were fairly equal. I called [facility] Stroke protocol and neuro recommended CTA neck and brain to r/o large thrombosis. NIH score was 11 when symptoms occurred and now at 6. Reviewed meds. Dislocated right TMJ noted so Dr Edmonds contacted and he graciously arrived and put it back in place. Will monitor in ICU. OLIVE ISAAC DO Nov 18, 2020 17:56
[2020-11-18] MEDS ORDERED: HOLD METFORMIN - RECEIVED CONTRAST 20 ML VIAL IV SCH ×2 (18:00→18:30)
[2020-11-18] MEDS ORDERED: IOHEXOL 350 MG/ML 100 ML (OMNIPAQUE 350) VIAL IV ONE ×2 (18:00→18:30)
[2020-11-18] MEDS ORDERED: NS 100 ML (IVPB) BAG IV ONE ×2 (18:00→18:30)
--- NOTE | 2020-11-18 18:14 | NUR ---
Answered patients light at 1625 and noted patient had a droop to her face and speech was garbled. RR called as well as Dr Barnes. Pt went to CT scan and upon return to her room shortly thereafter while I was completing a NIH sroke scale she began to have difficulty talking and moving. RR called again and Dr Barnes called who ordered patient transfer to ICU. Transferred to ICU approximately 1730 and reported off to Tyler NEAL.
--- NOTE | 2020-11-18 18:44 | Diagnostic Imaging Report ---
PROCEDURE: CT angiography of the head and CT angiography of the neck with and without contrast. TECHNIQUE: Contiguous noncontrast images were obtained from the skull base through the vertex. After intravenous contrast administration, helical CT angiography of the neck was performed. Source data was reformatted into 3D MIP projections. Delayed post contrast acquisition was also obtained. Auto Exposure Controls were utilized during the CT exam to meet ALARA standards for radiation dose reduction. INDICATION: Right-sided weakness. Right-sided facial droop. COMPARISON: CT head performed earlier the same date. FINDINGS: CTA neck: The visualized portions of the aortic arch demonstrate no evidence of aneurysm or dissection. There is conventional branching pattern of the great vessels of the aorta. The brachiocephalic artery is normal in course and caliber. The right and left common carotid origins are unremarkable. The origin of the left subclavian artery is patent. The common carotid arteries and internal carotid arteries demonstrate a tortuous course. There is calcified atherosclerotic plaque in the bilateral carotid bulbs and proximal internal carotid arteries resulting in less than 50% stenosis. No evidence of dissection in the carotid systems. The external carotid arteries are patent and unremarkable. The right vertebral artery is dominant. The origin of the right vertebral artery is seen and is unremarkable. The origin of the left vertebral artery is seen and is unremarkable. There is no focal stenosis seen within the neck. There is no dissection. The vertebral arteries are well visualized to up to the level of the basilar artery. The osseous structures of the cervical spine are unremarkable. Included views through the lung apices demonstrate scattered patchy opacities. CTA brain: Atherosclerotic plaque is seen in the rangel of the bilateral terminal internal carotid arteries without significant stenosis. No stenosis is seen in the bilateral anterior, middle, and posterior cerebral arteries. No evidence of aneurysm the [place]. The right vertebral artery is dominant. There is 50-69% stenosis in the V4 segment of the left vertebral artery. Both the right and left PICA arteries are identified. The basilar artery is normal in course and caliber. The terminal branch vessels including the superior cerebellar arteries unremarkable. There is dislocation of the right TMJ. IMPRESSION: 1. No stenosis or aneurysm in the [place]. 2. Approximately 50-69% stenosis in the V4 segment of the left vertebral artery. The right vertebral artery is dominant. 3. No focal stenosis in the bilateral carotid systems. 4. Dislocated right TMJ. Tyler Report was called to patient's nurse, Tyler at 6:40 p.m., by liza. Dictated by: Dictated on workstation # [id number]
[2020-11-18] MEDS: LACTATED RINGERS 1,000 ML IV SCH (18:49)
[2020-11-18] MEDS: LEVETIRACETAM INJECTION 1,000 MG in NS (IVPB) 100 ML IV SCH (18:50)
[2020-11-18 19:08] LABS: BASOPHILS % (AUTO) 0 % (0-10); EOSINOPHILS # (AUTO) 0.1 10^3/uL (0.0-0.3); EOSINOPHILS % (AUTO) 1 % (0-10); HEMATOCRIT 36 % (35-52); HEMOGLOBIN 11.8 g/dL (11.5-16.0); LYMPHOCYTES # (AUTO) 1.3 10^3/uL (1.0-4.0); LYMPHOCYTES % (AUTO) 21 % (12-44); MEAN CORPUSCULAR HEMOGLOBIN 29 pg (25-34); MEAN CORPUSCULAR HGB CONC 33 g/dL (32-36); MEAN CORPUSCULAR VOLUME 88 fL (80-99); MEAN PLATELET VOLUME 10.4 fL (9.0-12.2); MONOCYTES # (AUTO) 0.6 10^3/uL (0.0-1.0); MONOCYTES % (AUTO) 10 % (0-12); NEUTROPHILS # (AUTO) 4.1 10^3/uL (1.8-7.8); NEUTROPHILS % (AUTO) 67 % (42-75); PLATELET COUNT 241 10^3/uL (130-400); WHITE BLOOD COUNT 6.2 10^3/uL (4.3-11.0)
[2020-11-18 19:26] LABS: ERYTHROCYTE SEDIMENTATION RATE 74 MM/HR (0-30)
[2020-11-18 19:36] LABS: ALANINE AMINOTRANSFERASE 11 U/L (0-55); ALBUMIN 3.1 GM/DL (3.2-4.5); ALKALINE PHOSPHATASE 136 U/L (40-136); BILIRUBIN,TOTAL 0.4 MG/DL (0.1-1.0); BUN/CREATININE RATIO 12; CALCIUM 7.6 MG/DL (8.5-10.1); CARBON DIOXIDE 20 MMOL/L (21-32); CHLORIDE 105 MMOL/L (98-107); CREATININE SERUM 0.92 MG/DL (0.60-1.30); GFR ESTIMATED 60; GLUCOSE 119 MG/DL (70-105); POTASSIUM 3.9 MMOL/L (3.6-5.0); SODIUM 136 MMOL/L (135-145); TOTAL PROTEIN 6.1 GM/DL (6.4-8.2)
--- NOTE | 2020-11-18 20:49 | NUR ---
THIS RN UPDATED PATIENT'S SON, KEL. ALL QUESTIONS ANSWERED AT THIS TIME.
[2020-11-19] VITALS (18 sets, daily range): BP systolic 113–154; BP diastolic 57–101
[2020-11-19] MEDS: RT-ALBUTEROL/IPRATROPIUM 3 ML (DUONEB) VIAL INH SCH ×6 (01:05→22:10)
[2020-11-19] MEDS: LACTATED RINGERS 1,000 ML IV SCH ×2 (03:12→09:25)
[2020-11-19] MEDS: METOCLOPRAMIDE INJ 10 MG/2 ML (REGLAN) IVP SCH ×4 (03:19→17:07)
[2020-11-19 03:27] LABS: BASOPHILS % (AUTO) 0 % (0-10); EOSINOPHILS # (AUTO) 0.1 10^3/uL (0.0-0.3); EOSINOPHILS % (AUTO) 1 % (0-10); HEMATOCRIT 33 % (35-52); HEMOGLOBIN 10.8 g/dL (11.5-16.0); LYMPHOCYTES # (AUTO) 1.5 10^3/uL (1.0-4.0); LYMPHOCYTES % (AUTO) 27 % (12-44); MEAN CORPUSCULAR HEMOGLOBIN 29 pg (25-34); MEAN CORPUSCULAR HGB CONC 33 g/dL (32-36); MEAN CORPUSCULAR VOLUME 88 fL (80-99); MEAN PLATELET VOLUME 10.1 fL (9.0-12.2); MONOCYTES # (AUTO) 0.7 10^3/uL (0.0-1.0); MONOCYTES % (AUTO) 12 % (0-12); NEUTROPHILS # (AUTO) 3.3 10^3/uL (1.8-7.8); NEUTROPHILS % (AUTO) 59 % (42-75); PLATELET COUNT 231 10^3/uL (130-400); WHITE BLOOD COUNT 5.5 10^3/uL (4.3-11.0)
[2020-11-19 03:42] LABS: CHLORIDE 107 MMOL/L (98-107); POTASSIUM 3.8 MMOL/L (3.6-5.0); SODIUM 140 MMOL/L (135-145)
[2020-11-19 03:43] LABS: CALCIUM 7.5 MG/DL (8.5-10.1); GLUCOSE 73 MG/DL (70-105)
[2020-11-19 03:45] LABS: CARBON DIOXIDE 20 MMOL/L (21-32)
--- NOTE | 2020-11-19 03:46 | Pulmonary Consultation ---
History of Present Illness History of Present Illness Date Seen by Provider: Nov 19, 2020 Time Seen by Provider: 03:40 Date of Admission History of Present Illness 70yo with hx of COVID 10/09 admitted to 4th floor on 11/14 secondary PNA where she was being treated abx however yesterday transferred to ICU secondary to stroke like symptoms Right sided weakness and left sided facial droop. Stoke like symptoms have resolved. Allergies and Home Medications Allergies Coded Allergies: clopidogrel (Verified Allergy, Severe, BLOOD CLOTS, 11/27/18) Penicillins (Verified Allergy, Mild, RASH, 11/27/18) carisoprodol (Verified Allergy, Mild, RASH, 11/27/18) cephalexin (Verified Allergy, Mild, RASH, 11/27/18) ketorolac (Verified Allergy, Mild, RASH, 11/27/18) prochlorperazine (Verified Allergy, Mild, RASH, 11/27/18) Carbamates (Verified Allergy, Unknown, Rash, 05/28/19) Home Medications Amlodipine Besylate 10 Mg Tablet, 10 MG PO DAILY, (Reported) Atorvastatin Calcium 40 Mg Tablet, 40 MG PO HS, (Reported) Cholecalciferol (Vitamin D3) 50 Mcg Tablet, 50 MCG PO DAILY, (Reported) Codeine/Butalbital/ASA/Caffein 1 Each Capsule, 1 EACH PO DAILY PRN for MIGRAINE, (Reported) Duloxetine HCl 30 Mg Capsule.dr, 30 MG PO DAILY, (Reported) TAKE ALONG WITH 60MG CAP FOR A TOTAL DAILY DOSE OF 90MG Duloxetine HCl 60 Mg Capsule.dr, 60 MG PO DAILY, (Reported) TAKES ALONG WITH 30MG CAPSULE FOR A TOTAL DAILY DOSE OF 90MG Folic Acid 1 Mg Tablet, 1 MG PO DAILY, (Reported) Furosemide 40 Mg Tablet, 40 MG PO DAILY, (Reported) Hydroxychloroquine Sulfate 200 Mg Tablet, 200 MG PO BID, (Reported) Insulin Detemir 100 Unit/1 Ml Insuln.pen, 8 UNIT SQ DAILY PRN for BLOOD SUGAR OVER 140, (Reported) Metoprolol Succinate 100 Mg Tab.er.24h, 100 MG PO DAILY, (Reported) Pantoprazole Sodium 40 Mg Tablet.dr, 40 MG PO DAILY, (Reported) Prednisone 2.5 Mg Tablet, 2.5 MG PO DAILY, (Reported) Topiramate 50 Mg Tablet, 75 MG PO BID, (Reported) TAKE 1 & 1/2 OF 50MG TAB Past Ufeoihc-Nxapof-Sirzgx Hx Past Med/Social Hx: Reviewed Nursing Past Med/Soc Hx, Reviewed and Corrections made Patient Social History Alcohol Use: Denies Use Smoking Status: Never a Smoker 2nd Hand Smoke Exposure: No Recent Infectious Disease Expo: No Recent Hopitalizations: Yes Have you traveled recently?: No Alcohol Use?: No Immunizations Up To Date Tetanus Booster (TDap): Unknown Date of Pneumonia Vaccine: Jul 29, 2017 Date of Influenza Vaccine: Jun 30, 2020 Seasonal Allergies Seasonal Allergies: No Past Medical History Surgeries: Yes (R CTR, espohageal ligation x2, Hernia, L RCR, L TKR, laparotomy, MRSA infec) Abdominal, Breast, Cardiac, Coronary Stent, Hysterectomy, Joint Replacement, Oophorectomy, Orthopedic, Thyroidectomy Respiratory: No Currently Using CPAP: No Currently Using BIPAP: No Cardiac: Yes (HX HEART CATH-STENT) Coronary Artery Disease, Heart Attack, High Cholesterol, Hypertension Neurological: Yes Headaches /Migraines, 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, 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 Sexually Transmitted Disease: No HIV/AIDS: No Genitourinary: Yes (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, STAGE 2-kidneY DISEASE ) Bladder Infection, Renal Failure Gastrointestinal: Yes (HX GI BLEED, zenkers syndrome-chokes easily, hx hep A) Abdominal Hernia, Gastroesophageal Reflux, Hepatitis Musculoskeletal: Yes (OSTEOARTHRITIS, BULGING DISCS) Arthritis, Chronic Back Pain Endocrine: Yes (partial thyroidectomy) Hypothyroidsim, Diabetes, Non-Insulin dep HEENT: Yes (GLASSES, UPPER DENTURES) Loss of Vision: Bilateral Cancer: Yes Breast Did You Recieve Any Treatments: Yes What Type of Treatment Did You: Radiation, Surgical Intervention Psychosocial: No Integumentary: No Blood Disorders: Yes (IRON DEFFICIENCY ANEMIA-GETS IRON INFUSIONS) Adverse Reaction/Blood Tranf: No (HAS HAD BLOOD WITH NO REACTION) Family Medical History Hypertension G8 BROTHER Not obtainable due to adoption 19 FATHER Heart Disease (brother), Hypertension (brother) ADDITIONAL PAST SURGICAL HISTORY -ZENKER'S DIVERTICULUM SURGERY X 2 -ABDOMINAL HERNIA REPAIR WITH MESH -MESH REMOVAL AND LY8IS OF ADHESIONS -HYST/BSO -LEFT BREAST LUMPECTOMY -CARDIAC CATH WITH STENT X 1 2005 -PORT LEFT CHEST -RIGHT SHOULDER REPLACEMENT Review of Systems Time Seen by Provider: 03:43 Sepsis Event Evaluation Height, Weight, BMI Height: 5'4.00" Weight: 216lbs. 4.2oz. 98.929515qr; 28.85 BMI Method:Stated Exam Exam Vital Signs Date Time Temp Pulse Resp B/P (MAP) Pulse Ox O2 Delivery O2 Flow Rate FiO2 11/19/20 03:11 36.6 95 Room Air 11/19/20 02:30 100 Room Air 11/19/20 01:06 97 Nasal Cannula 2.00 11/19/20 00:15 37.4 11/18/20 23:00 76 27 141/61 (87) 99 Nasal Cannula 2.00 11/18/20 22:00 94 28 137/64 (88) 99 Nasal Cannula 2.00 11/18/20 21:42 98 Nasal Cannula 2.00 11/18/20 21:00 96 22 140/83 (102) 100 Nasal Cannula 2.00 11/18/20 20:00 95 30 110/68 (82) 99 Nasal Cannula 2.00 11/18/20 20:00 Nasal Cannula 2.00 11/18/20 19:36 37.2 11/18/20 19:30 Nasal Cannula 2.00 11/18/20 19:00 101 35 157/81 (106) 98 Nasal Cannula 2.00 11/18/20 19:00 105 11/18/20 18:50 94 Nasal Cannula 2.00 11/18/20 17:23 36.4 101 95 11/18/20 17:00 102 33 159/93 (115) 96 Room Air 11/18/20 16:51 136/63 11/18/20 16:51 36.6 98 20 136/73 (94) 93 Room Air 11/18/20 14:52 93 Room Air 11/18/20 12:53 82 11/18/20 12:38 36.1 102 18 133/69 (90) 94 Room Air 11/18/20 10:55 Room Air 11/18/20 10:52 Room Air 11/18/20 10:40 36.5 99 93 21 11/18/20 08:05 93 Room Air 11/18/20 08:00 94 Room Air 11/18/20 07:31 36.5 115 16 139/69 (92) 93 Room Air 11/18/20 07:00 106 11/18/20 03:56 36.4 104 20 147/70 (95) 92 Room Air I & O 11/19/20 07:00 Intake Total 785 ml Output Total 1450 ml Balance -665 ml Height & Weight Height: 5'4.00" Weight: 216lbs. 4.2oz. 98.773351xl; 28.85 BMI Method:Stated General Appearance: No Apparent Distress, Chronically ill HEENT: PERRL/EOMI, Moist Mucous Membranes Respiratory: Lungs Clear, No Accessory Muscle Use, No Respiratory Distress, Decreased Breath Sounds (bilateral bases) Cardiovascular: Regular Rate, Rhythm, No Murmur Capillary Refill: Less Than 3 Seconds Peripheral Pulses: 2+ Radial Pulses (R), 2+ Radial Pulses (L) Gastrointestinal: normal bowel sounds, non tender, soft; No distended Extremity: No Calf Tenderness, No Pedal Edema Neurologic/Psychiatric: Alert, Oriented x3, No Motor/Sensory Deficits, Normal Mood/Affect Skin: Normal Color, Warm/Dry Results Lab Laboratory Tests 11/17/20 05:37 11/18/20 05:40 11/18/20 18:45 11/19/20 03:15 Assessment/Plan Assessment/Plan TIA - Symptoms now resolved Pt has multiple med allergies including NSAIDS -Monitor Hx of COPD -Currently not requiring oxygen -Repeat PCT Hx of carotid stenosis HTN CAD -Cardiology consulted Gastroenteritis CARMEL S/p COVID 10/09 hx of COPD Zenker diverticulum, attempt for surgical repair was done late in December 2018 in [facility], has failed attempt for surgery in the past, follows with GI at . History of esophageal paresis and GI bleed, unknown etiology Coronary artery disease, history of stent to the right coronary artery in 2009 using 3.512 mm Ion stent, last stress test done in December 2018 showing no ischemia or infarction with normal LV function. Continue to monitor Anemia of chronic disease followed with oncology History of liver injury secondary to trauma and bleed. History of chronic kidney disease, was on dialysis in November 2015, currently off dialysis. Diabetic nephropathy, she has been following with [facility] Mild bilateral carotid stenosis, ultrasound was done in November 2018. Continue to monitor Diabetes mellitus History of breast cancer, had lumpectomy on the left and radiation, followed by primary care physician History of DVT at the left arm related to PICC line, in 2002. History of renal artery stenosis, had a stent done in 2013, continue to monitor Hypothyroidism Status post recent right shoulder surgery with LISA Vidal DO Nov 19, 2020 03:46
[2020-11-19 03:47] LABS: CREATININE SERUM 0.85 MG/DL (0.60-1.30); GFR ESTIMATED > 60; PHOSPHORUS 3.2 MG/DL (2.3-4.7)
[2020-11-19 03:48] LABS: BUN/CREATININE RATIO 14
[2020-11-19 03:50] LABS: MAGNESIUM 1.6 MG/DL (1.6-2.4)
[2020-11-19] MEDS: inSUlin ASPART (NovoLOG) 1 UNIT/0.01 ML (CHARGE PER UNIT) SC SCH ×4 (05:21→20:11)
[2020-11-19] MEDS ORDERED: MAGNESIUM 1 GM/100 ML IVPB 100 ML IV SCH (06:00)
[2020-11-19] MEDS ORDERED: POTASSIUM CL 10MEQ/50ML IVPB 50 ML IV SCH (06:00)
[2020-11-19] MEDS ORDERED: KCL 20 MEQ TAB (K-DUR) PO SCH (06:00)
[2020-11-19] MEDS: LEVETIRACETAM INJECTION 1,000 MG in NS (IVPB) 100 ML IV SCH (06:25)
[2020-11-19] MEDS: MAGNESIUM 1 GM/100 ML IVPB 100 ML IV SCH ×2 (06:25→08:04)
[2020-11-19] MEDS: predniSONE 5 MG TAB PO SCH (06:26)
--- NOTE | 2020-11-19 07:36 | Diagnostic Imaging Report ---
EXAMINATION: Chest 1 view HISTORY: Stroke COMPARISON: 10/07/2020 FINDINGS: Right hemidiaphragm is elevated. Left-sided port catheter is present. No pleural effusion or pneumothorax. There is perihilar vascular congestion. There is reverse right total shoulder arthroplasty. IMPRESSION: 1. Perihilar vascular congestion and elevated right hemidiaphragm. Dictated by: Dictated on workstation # [id number]
[2020-11-19] MEDS: HYDROXYCHLOROQUINE 200 MG (PLAQUENIL) TAB PO SCH ×2 (08:06→17:07)
[2020-11-19] MEDS: toPIRamate 25 MG (TOPAMAX) TAB PO SCH ×2 (08:06→20:52)
[2020-11-19] MEDS: VITAMIN D3 25 MCG (1,000 UNITS) TABLET PO SCH (08:06)
[2020-11-19] MEDS: DULoxetine 30 MG (CYMBALTA) CAP PO SCH (08:06)
[2020-11-19] MEDS: PANTOPRAZOLE 40 MG (PROTONIX) TAB PO SCH (08:06)
[2020-11-19] MEDS: meTOprolol SUCCINATE 100 MG (TOPROL XL) TAB PO SCH (08:06)
[2020-11-19] MEDS: FOLIC ACID 1 MG TAB PO SCH (08:06)
[2020-11-19] MEDS: amLODIPine 10 MG (NORVASC) TAB PO SCH (08:06)
[2020-11-19] MEDS: ENOXAPARIN 40 MG/0.4 ML (LOVENOX) SYR SC SCH (08:07)
[2020-11-19] MEDS: SENNA W/DOCUSATE (SENOKOT S) TABLET PO SCH ×2 (08:08→20:52)
--- NOTE | 2020-11-19 08:57 | Cardiology Progress Note ---
Subjective Date Seen by Provider: Nov 19, 2020 Time Seen by Provider: 08:54 Subjective/Events-last exam Patient is laying down in bed, feeling better. She was transferred to intensive care unit after having strokelike symptoms with right hemiplegia and left facial droop. Recovered at this point Review of Systems General: No Chills, No Night Sweats, No Fatigue, No Malaise, No Appetite, No Other HEENT: No Head Aches, No Visual Changes, No Eye Pain, No Ear Pain, No Dysphasia, No Sinus Congestion, No Post Nasal Drip, No Sore Throat, No Other Pulmonary: No Dyspnea, No Cough, No Pleuritic Chest Pain, No Other Cardiovascular: No: Chest Pain, Palpitations, Orthopnea, Paroxysmal Noc. Dyspnea, Edema, Lt Headedness, Other Focused Exam Lactate Level 11/18/20 18:45: Lactic Acid Level 1.08 Objective-Cardiology Exam Last Set of Vital Signs Vital Signs 11/18/20 11/19/20 11/19/20 10:40 07:22 08:00 Temp 36.6 Pulse 76 Resp 27 B/P (MAP) 137/76 (96) Pulse Ox 99 O2 Delivery Vapotherm O2 Flow Rate 25.00 40.00 FiO2 21 Capillary Refill : Less Than 3 SecondsLess Than 3 Seconds I&O Intake and Output 11/18/20 23:59 Intake Total 1095 ml Output Total 2350 ml Balance -1255 ml Intake Oral 1035 ml IV Total 60 ml Output Urine Total 2350 ml # Voids 2 # Bowel Movements 6 General: Alert, Oriented X3, Cooperative HEENT: Atraumatic, PERRLA Neck: Supple, No JVD, No Thyromegaly Lungs: Normal Air Movement, Other (bilateral rhonchi) Heart: Normal S1, Normal S2, No Murmurs, Other (tachycardia) Abdomen: Normal Bowel Sounds, Soft, No Tenderness, No Hepatosplenomegaly, No Masses Extremities: No Clubbing, No Cyanosis, No Edema, Normal Pulses, No Tenderness/Swelling Skin: No Rashes, No Breakdown, No Significant Lesion Neuro: Normal Speech, Normal Tone, Sensation Intact Psych/Mental Status: Mental Status NL, Mood NL Results Lab Laboratory Tests 11/18/20 18:45 11/19/20 03:15 A/P-Cardiology Admission Diagnosis pneumonia CAD HTN HLP Assessment/Plan Acute TIA, patient developed right hemiplegia and left facial droop on November 18, 2020 resolved overnight, workup including CTA of the head and neck showed 50-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 Patient is maintained on aspirin, I will increase Lovenox to 1 mg per KG twice daily Sinus tachycardia with frequent atrial premature contractions, occasional PVCs, questionable episode of paroxysmal atrial tachycardia. So far as no signs of atrial fibrillation. Patient is starting on Lovenox s/p COVID, received monoclonal antibody treatment, continues to c/o persistent nausea and loss of appetite, management per Dr. Barnes Bilateral pneumonia, on antibiotic, management per Dr. Barnes. Zenker diverticulum, attempt for surgical repair was done late in December 2018 in [facility], has failed attempt for surgery in the past, follows with GI at . History of esophageal paresis and GI bleed, unknown etiology Coronary artery disease, history of stent to the right coronary artery in 2009 using 3.512 mm Ion stent, last stress test done in December 2018 showing no ischemia or infarction with normal LV function. Continue to monitor Hypertension, continue to monitor blood pressure Hyperlipidemia, maintained on Lipitor Anemia of chronic disease followed with oncology History of liver injury secondary to trauma and bleed. History of chronic kidney disease, was on dialysis in November 2015, currently off dialysis. Diabetic nephropathy, she has been following with [facility] Mild bilateral carotid stenosis, ultrasound was done in November 2018. Continue to monitor JOHN was normal done in November 2018. Continue to monitor Diabetes mellitus, followed and managed by primary care physician History of breast cancer, had lumpectomy on the left and radiation, followed by primary care physician History of DVT at the left arm related to PICC line, in 2002. History of glaucoma History of renal artery stenosis, had a stent done in 2013, continue to monitor Hypothyroidism Status post recent right shoulder surgery with ABBI Beaver MD Nov 19, 2020 08:57
[2020-11-19] MEDS ORDERED: ENOXAPARIN 30 MG/0.3 ML (LOVENOX) SYR SC NR (09:04)
[2020-11-19] MEDS: ASPIRIN E.C. 81 MG (ECOTRIN) TAB PO SCH (09:25)
--- NOTE | 2020-11-19 11:04 | Physical Therapy Progress Note ---
Therapy Progress Note Will await new orders secondary to change in status and transfer to ICU. EMERSON MACDONALD PT Nov 19, 2020 11:04
--- NOTE | 2020-11-19 13:13 | Progress Note - Hospitalist ---
Subjective HPI/CC On Admission Date Seen by Provider: Nov 19, 2020 Time Seen by Provider: 11:00 CC: Nausea and vomiting and diarrhea HPI: This is a 70yoWF known to me from prior hospital stays who presents after a two month course of nausea and vomiting impaction that started at the first part of September, then she was exposed to Covid, she was positive and essentially asymptomatic except for nausea and vomiting who continued to have issues. She started running a fever, found to have pneumonia and profound dehydration with tachycardia and she has since become much improved. IV fluids still going at 100cc. We will initiate PT and OT and inpatient rehab evaluation in order to start her recovery. Subjective/Events-last exam Much improved status Moving to 4th floor No seizures Dr Downs appreciated in putting TMJ back in place in the right Keppra maintained Lovenox at full dose and baby asa started by Dr Singh Reviewed Tely during episode yesterday at 1600 HLIVF Review of Systems General: Fatigue, Malaise Focused Exam Lactate Level 11/18/20 18:45: Lactic Acid Level 1.08 Objective Exam Vital Signs Vital Signs Date Time Temp Pulse Resp B/P (MAP) Pulse Ox O2 Delivery O2 Flow Rate FiO2 11/20/20 06:45 91 Room Air 11/20/20 04:23 36.5 89 18 133/82 (99) 11/19/20 13:00 25.00 40.00 11/18/20 10:40 21 Capillary Refill : Less Than 3 SecondsLess Than 3 Seconds General Appearance: No Apparent Distress, WD/WN, Chronically ill Respiratory: Chest Non Tender, Lungs Clear, Normal Breath Sounds, No Accessory Muscle Use, No Respiratory Distress Cardiovascular: Regular Rate, Rhythm, No Edema, No Gallop, No JVD, No Murmur, Normal Peripheral Pulses Neurologic/Psychiatric: Alert, Oriented x3, No Motor/Sensory Deficits, Normal Mood/Affect Results/Procedures Lab Patient resulted labs reviewed. Assessment/Plan Assessment and Plan Assess & Plan/Chief Complaint Assessment: Seizure with TMJ dislocation on the right s/p resolved by Dr Edmonds Saturday night Dehydration N/V/D from gastroenteritis CARMEL Severe debility from COVID-19 residual HTN CAD COPD Hypoxia baseline OA Plan: IVF Supportive care PT OT IRF? 11/16/20: Dr Whalen and Dr Singh consult DC Doxy 11/17 IV in case it is a factor for N/V 11/17/20: Reglan Monitor electrolytes 11/18/20: Stool studies IVF Supportive care 11/19/20: Move to [address] [place] [address] Monitor closely Diagnosis/Problems Diagnosis/Problems (1) Nausea vomiting and diarrhea Status: Acute (2) 2019 novel coronavirus disease (COVID-19) Status: Acute (3) Mild dehydration Status: Acute (4) Generalized weakness Status: Acute (5) Pneumonia Status: Acute Qualifiers: Pneumonia type: due to unspecified organism Laterality: bilateral Lung location: lower lobe of lung Qualified Codes: J18.9 - Pneumonia, unspecified organism (6) Dehydration Status: Acute (7) Viral syndrome Status: Acute (8) Type 2 diabetes mellitus Status: Chronic (9) Normocytic anemia Status: Acute (10) Restless leg syndrome Status: Chronic (11) Renal insufficiency (12) Hyperlipidemia Status: Chronic (13) Essential hypertension Status: Chronic (14) Coronary artery disease Status: Chronic OLIVE ISAAC DO Nov 19, 2020 13:12
[2020-11-19] MEDS: LEVETIRACETAM 500 MG (KEPPRA) TAB PO SCH (20:52)
[2020-11-19] MEDS: ENOXAPARIN 80 MG/0.8 ML (LOVENOX) SYR SC SCH (20:56)
[2020-11-20] MEDS: METOCLOPRAMIDE INJ 10 MG/2 ML (REGLAN) IVP SCH ×4 (01:05→16:17)
[2020-11-20] MEDS: RT-ALBUTEROL/IPRATROPIUM 3 ML (DUONEB) VIAL INH SCH ×6 (02:17→21:33)
[2020-11-20 04:23] VITALS: BP 133/82
[2020-11-20] MEDS: inSUlin ASPART (NovoLOG) 1 UNIT/0.01 ML (CHARGE PER UNIT) SC SCH ×4 (06:20→20:51)
--- NOTE | 2020-11-20 06:50 | Pulmonary Progress Note ---
Subjective Time Seen by a Provider: 06:50 Sepsis Event Evaluation Height, Weight, BMI Height: 5'4.00" Weight: 216lbs. 4.2oz. [id number]; 28.85 BMI Method:Stated Focused Exam Lactate Level 11/18/20 18:45: Lactic Acid Level 1.08 Exam Exam Vital Signs Date Time Temp Pulse Resp B/P (MAP) Pulse Ox O2 Delivery O2 Flow Rate FiO2 11/20/20 06:45 91 Room Air 11/20/20 04:23 36.5 89 18 133/82 (99) 97 Room Air 11/20/20 01:00 72 11/19/20 23:43 36.5 76 22 131/81 (98) 92 Room Air 11/19/20 20:00 94 Room Air 11/19/20 19:20 36.6 93 20 136/61 (86) 94 Room Air 11/19/20 19:00 90 Room Air 11/19/20 19:00 78 11/19/20 15:57 36.6 86 18 124/61 (82) 92 Room Air 11/19/20 15:44 94 Room Air 11/19/20 14:45 36.5 78 28 113/59 (77) 91 Room Air 11/19/20 13:00 85 26 115/57 (76) 92 Vapotherm 25.00 40.00 11/19/20 12:43 74 11/19/20 12:00 73 26 125/101 (109) 93 Vapotherm 25.00 40.00 11/19/20 11:13 95 Room Air 11/19/20 11:00 80 10 147/76 (99) 94 Vapotherm 25.00 40.00 11/19/20 10:00 77 24 132/67 (88) 94 Vapotherm 25.00 40.00 11/19/20 09:00 90 17 137/67 (90) 93 Vapotherm 25.00 40.00 11/19/20 08:00 Room Air 11/19/20 08:00 76 27 137/76 (96) 99 Vapotherm 25.00 40.00 11/19/20 07:48 94 Room Air 11/19/20 07:22 36.6 11/19/20 07:00 100 11/19/20 07:00 76 27 137/76 (96) 99 Vapotherm 25.00 40.00 I & O 11/20/20 06:59 Intake Total 690 ml Output Total 300 ml Balance 390 ml Height & Weight Height: 5'4.00" Weight: 216lbs. 4.2oz. 98.086318xd; 28.85 BMI Method:Stated General Appearance: No Apparent Distress, WD/WN, Chronically ill HEENT: PERRL/EOMI, Moist Mucous Membranes Respiratory: Chest Non Tender, Lungs Clear, Normal Breath Sounds, No Accessory Muscle Use, No Respiratory Distress Cardiovascular: Regular Rate, Rhythm, No Edema, No Gallop, No JVD, No Murmur, Normal Peripheral Pulses Capillary Refill: Less Than 3 Seconds Peripheral Pulses: 2+ Radial Pulses (R), 2+ Radial Pulses (L) Gastrointestinal: normal bowel sounds, non tender, soft; No distended Extremity: No Calf Tenderness, No Pedal Edema Neurologic/Psychiatric: Alert, Oriented x3, No Motor/Sensory Deficits, Normal Mood/Affect Skin: Normal Color, Warm/Dry Results Lab Laboratory Tests 11/18/20 18:45 11/19/20 03:15 Assessment/Plan Assessment/Plan TIA - Symptoms now resolved Pt has multiple med allergies including NSAIDS -Monitor Hx of COPD -Currently not requiring oxygen -Repeat PCT Hx of carotid stenosis HTN CAD -Cardiology consulted Gastroenteritis CARMEL S/p COVID 10/09 hx of COPD Zenker diverticulum, attempt for surgical repair was done late in December 2018 in [facility], has failed attempt for surgery in the past, follows with GI at . History of esophageal paresis and GI bleed, unknown etiology Coronary artery disease, history of stent to the right coronary artery in 2009 using 3.512 mm Ion stent, last stress test done in December 2018 showing no ischemia or infarction with normal LV function. Continue to monitor Anemia of chronic disease followed with oncology History of liver injury secondary to trauma and bleed. History of chronic kidney disease, was on dialysis in November 2015, currently off dialysis. Diabetic nephropathy, [facility] Mild bilateral carotid stenosis, ultrasound was done in November 2018. Continue to monitor Diabetes mellitus History of breast cancer, had lumpectomy on the left and radiation, followed by primary care physician History of DVT at the left arm related to PICC line, in 2002. History of renal artery stenosis, had a stent done in 2013, continue to monitor Hypothyroidism Status post recent right shoulder surgery with LISA Vidal DO Nov 20, 2020 06:50
[2020-11-20] MEDS: predniSONE 5 MG TAB PO SCH (06:51)
[2020-11-20 07:50] LABS: BASOPHILS % (AUTO) 0 % (0-10); EOSINOPHILS # (AUTO) 0.1 10^3/uL (0.0-0.3); EOSINOPHILS % (AUTO) 2 % (0-10); HEMATOCRIT 33 % (35-52); HEMOGLOBIN 10.6 g/dL (11.5-16.0); LYMPHOCYTES # (AUTO) 1.2 10^3/uL (1.0-4.0); LYMPHOCYTES % (AUTO) 22 % (12-44); MEAN CORPUSCULAR HEMOGLOBIN 29 pg (25-34); MEAN CORPUSCULAR HGB CONC 33 g/dL (32-36); MEAN CORPUSCULAR VOLUME 89 fL (80-99); MEAN PLATELET VOLUME 10.5 fL (9.0-12.2); MONOCYTES # (AUTO) 0.8 10^3/uL (0.0-1.0); MONOCYTES % (AUTO) 15 % (0-12); NEUTROPHILS # (AUTO) 3.3 10^3/uL (1.8-7.8); NEUTROPHILS % (AUTO) 61 % (42-75); PLATELET COUNT 271 10^3/uL (130-400); WHITE BLOOD COUNT 5.4 10^3/uL (4.3-11.0)
[2020-11-20 07:59] LABS: ALBUMIN 2.8 GM/DL (3.2-4.5)
[2020-11-20 08:00] VITALS: BP 151/81
[2020-11-20 08:00] LABS: CHLORIDE 108 MMOL/L (98-107); POTASSIUM 3.9 MMOL/L (3.6-5.0); SODIUM 139 MMOL/L (135-145)
[2020-11-20 08:01] LABS: CALCIUM 7.5 MG/DL (8.5-10.1)
[2020-11-20 08:02] LABS: GLUCOSE 131 MG/DL (70-105); TOTAL PROTEIN 5.6 GM/DL (6.4-8.2)
[2020-11-20 08:03] LABS: CARBON DIOXIDE 21 MMOL/L (21-32)
[2020-11-20 08:04] LABS: BILIRUBIN,TOTAL 0.3 MG/DL (0.1-1.0)
[2020-11-20 08:05] LABS: ALKALINE PHOSPHATASE 160 U/L (40-136)
[2020-11-20 08:06] LABS: CREATININE SERUM 0.86 MG/DL (0.60-1.30); GFR ESTIMATED > 60
[2020-11-20 08:07] LABS: BUN/CREATININE RATIO 15
[2020-11-20 08:09] LABS: ALANINE AMINOTRANSFERASE 13 U/L (0-55)
[2020-11-20] MEDS: VITAMIN D3 25 MCG (1,000 UNITS) TABLET PO SCH (08:12)
[2020-11-20] MEDS: DULoxetine 30 MG (CYMBALTA) CAP PO SCH (08:12)
[2020-11-20] MEDS: FOLIC ACID 1 MG TAB PO SCH (08:12)
[2020-11-20] MEDS: meTOprolol SUCCINATE 100 MG (TOPROL XL) TAB PO SCH (08:12)
[2020-11-20] MEDS: ASPIRIN E.C. 81 MG (ECOTRIN) TAB PO SCH (08:12)
[2020-11-20] MEDS: HYDROXYCHLOROQUINE 200 MG (PLAQUENIL) TAB PO SCH ×2 (08:12→17:35)
[2020-11-20] MEDS: amLODIPine 10 MG (NORVASC) TAB PO SCH (08:12)
[2020-11-20] MEDS: LEVETIRACETAM 500 MG (KEPPRA) TAB PO SCH ×2 (08:12→20:51)
[2020-11-20] MEDS: PANTOPRAZOLE 40 MG (PROTONIX) TAB PO SCH (08:13)
[2020-11-20] MEDS: SENNA W/DOCUSATE (SENOKOT S) TABLET PO SCH ×2 (08:13→20:51)
[2020-11-20] MEDS: toPIRamate 25 MG (TOPAMAX) TAB PO SCH ×2 (08:13→20:51)
[2020-11-20] MEDS: ENOXAPARIN 80 MG/0.8 ML (LOVENOX) SYR SC SCH ×2 (08:13→20:51)
[2020-11-20] MEDS: LOPERAMIDE 2 MG (IMODIUM) TABLET PO PRN (09:55)
--- NOTE | 2020-11-20 11:32 | Cardiology Progress Note ---
Subjective Date Seen by Provider: Nov 20, 2020 Time Seen by Provider: 11:31 Subjective/Events-last exam Patient was seen at bedside, back to baseline, feeling better. Review of Systems General: No Chills, No Night Sweats, No Fatigue, No Malaise, No Appetite, No Other HEENT: No Head Aches, No Visual Changes, No Eye Pain, No Ear Pain, No Dysphasia, No Sinus Congestion, No Post Nasal Drip, No Sore Throat, No Other Pulmonary: No Dyspnea, No Cough, No Pleuritic Chest Pain, No Other Cardiovascular: No: Chest Pain, Palpitations, Orthopnea, Paroxysmal Noc. Dyspnea, Edema, Lt Headedness, Other Focused Exam Lactate Level 11/18/20 18:45: Lactic Acid Level 1.08 Objective-Cardiology Exam Last Set of Vital Signs Vital Signs 11/18/20 11/19/20 11/20/20 10:40 13:00 08:00 Temp 36.3 Pulse 74 Resp 32 B/P (MAP) 151/81 (104) Pulse Ox 94 O2 Delivery Room Air O2 Flow Rate 25.00 40.00 FiO2 21 Capillary Refill : Less Than 3 SecondsLess Than 3 Seconds I&O Intake and Output 11/19/20 23:59 Intake Total 715 ml Output Total 700 ml Balance 15 ml Intake Oral 715 ml Output Urine Total 700 ml # Voids 7 General: Alert, Oriented X3, Cooperative HEENT: Atraumatic, PERRLA Neck: Supple, No JVD, No Thyromegaly Lungs: Normal Air Movement, Other (bilateral rhonchi) Heart: Normal S1, Normal S2, No Murmurs, Other (tachycardia) Abdomen: Normal Bowel Sounds, Soft, No Tenderness, No Hepatosplenomegaly, No Masses Extremities: No Clubbing, No Cyanosis, No Edema, Normal Pulses, No Tenderness/Swelling Skin: No Rashes, No Breakdown, No Significant Lesion Neuro: Normal Speech, Normal Tone, Sensation Intact Psych/Mental Status: Mental Status NL, Mood NL Results Lab Laboratory Tests 11/20/20 07:38 A/P-Cardiology Admission Diagnosis pneumonia CAD HTN HLP Assessment/Plan Acute TIA, patient developed right hemiplegia and left facial droop on November 18, 2020 resolved overnight, workup including CTA of the head and neck showed 50-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 Patient is maintained on aspirin, I added Lovenox 1 mg per KG twice a day, I am planning to proceed with loop implant Sinus tachycardia with frequent atrial premature contractions, occasional PVCs, questionable episode of paroxysmal atrial tachycardia. So far as no signs of atrial fibrillation. Continue on Lovenox for now s/p COVID, received monoclonal antibody treatment, continues to c/o persistent nausea and loss of appetite, management per Dr. Barnes Bilateral pneumonia, on antibiotic, management per Dr. Barnes. Zenker diverticulum, attempt for surgical repair was done late in December 2018 in [facility], has failed attempt for surgery in the past, follows with GI at . History of esophageal paresis and GI bleed, unknown etiology Coronary artery disease, history of stent to the right coronary artery in 2009 using 3.512 mm Ion stent, last stress test done in December 2018 showing no ischemia or infarction with normal LV function. Continue to monitor Hypertension, continue to monitor blood pressure Hyperlipidemia, maintained on Lipitor Anemia of chronic disease followed with oncology History of liver injury secondary to trauma and bleed. History of chronic kidney disease, was on dialysis in November 2015, currently off dialysis. Diabetic nephropathy, she has been following with [facility] Mild bilateral carotid stenosis, ultrasound was done in November 2018. Continue to monitor JOHN was normal done in November 2018. Continue to monitor Diabetes mellitus, followed and managed by primary care physician History of breast cancer, had lumpectomy on the left and radiation, followed by primary care physician History of DVT at the left arm related to PICC line, in 2002. History of glaucoma History of renal artery stenosis, had a stent done in 2013, continue to monitor Hypothyroidism Status post recent right shoulder surgery with Dr. Marcelino GUTIERREZ,ABBI Peter MD Nov 20, 2020 11:32
[2020-11-20 12:00] VITALS: BP 122/78
--- NOTE | 2020-11-20 12:29 | Progress Note - Hospitalist ---
Subjective HPI/CC On Admission Date Seen by Provider: Nov 20, 2020 Time Seen by Provider: 11:30 CC: Nausea and vomiting and diarrhea HPI: This is a 70yoWF known to me from prior hospital stays who presents after a two month course of nausea and vomiting impaction that started at the first part of September, then she was exposed to Covid, she was positive and essentially asymptomatic except for nausea and vomiting who continued to have issues. She started running a fever, found to have pneumonia and profound dehydration with tachycardia and she has since become much improved. IV fluids still going at 100cc. We will initiate PT and OT and inpatient rehab evaluation in order to start her recovery. Subjective/Events-last exam Patient feels better No TIA or seizures Doing well Ambulated well Keppra BID maintained and tolerated BM+ Review of Systems General: Fatigue, Malaise Neurological: Weakness Focused Exam Lactate Level 11/18/20 18:45: Lactic Acid Level 1.08 Objective Exam Vital Signs Vital Signs Date Time Temp Pulse Resp B/P (MAP) Pulse Ox O2 Delivery O2 Flow Rate FiO2 11/20/20 15:55 36.4 79 18 101/65 (77) 95 Room Air 11/19/20 13:00 25.00 40.00 11/18/20 10:40 21 Capillary Refill : Less Than 3 SecondsLess Than 3 Seconds General Appearance: No Apparent Distress, WD/WN, Chronically ill Respiratory: Chest Non Tender, Lungs Clear, Normal Breath Sounds, No Accessory Muscle Use, No Respiratory Distress Cardiovascular: Regular Rate, Rhythm, No Edema, No Gallop, No JVD, No Murmur, Normal Peripheral Pulses Neurologic/Psychiatric: Alert, Oriented x3, No Motor/Sensory Deficits, Normal Mood/Affect Results/Procedures Lab Laboratory Tests 11/20/20 07:38 Patient resulted labs reviewed. Assessment/Plan Assessment and Plan Assess & Plan/Chief Complaint Assessment: Seizure with TMJ dislocation on the right s/p resolved by Dr Edmonds Saturday night Dehydration N/V/D from gastroenteritis CARMEL Severe debility from COVID-19 residual HTN CAD COPD Hypoxia baseline OA Plan: IVF Supportive care PT OT IRF? 11/16/20: Dr Whalen and Dr Singh consult DC Doxy 11/17 IV in case it is a factor for N/V 11/17/20: Reglan Monitor electrolytes 11/18/20: Stool studies IVF Supportive care 11/19/20: Move to [address] [place] [address] Monitor closely 11/20/20: Likely DC soon Overall more debilitated but ambulates around fairly well still Diagnosis/Problems Diagnosis/Problems (1) Nausea vomiting and diarrhea Status: Acute (2) 2019 novel coronavirus disease (COVID-19) Status: Acute (3) Mild dehydration Status: Acute (4) Generalized weakness Status: Acute (5) Pneumonia Status: Acute Qualifiers: Pneumonia type: due to unspecified organism Laterality: bilateral Lung location: lower lobe of lung Qualified Codes: J18.9 - Pneumonia, unspecified organism (6) Dehydration Status: Acute (7) Viral syndrome Status: Acute (8) Type 2 diabetes mellitus Status: Chronic (9) Normocytic anemia Status: Acute (10) Restless leg syndrome Status: Chronic (11) Renal insufficiency (12) Hyperlipidemia Status: Chronic (13) Essential hypertension Status: Chronic (14) Coronary artery disease Status: Chronic OLIVE ISAAC DO Nov 20, 2020 12:29
[2020-11-20 15:55] VITALS: BP 101/65
[2020-11-20 20:13] VITALS: BP 124/82
[2020-11-20] MEDS: ONDANSETRON 4 MG/2 ML (SDV) Z0FRAN IVP PRN (20:52)
[2020-11-21] VITALS: BP 126/59
[2020-11-21] MEDS: METOCLOPRAMIDE INJ 10 MG/2 ML (REGLAN) IVP SCH ×3 (00:41→12:12)
[2020-11-21] MEDS: RT-ALBUTEROL/IPRATROPIUM 3 ML (DUONEB) VIAL INH SCH ×3 (01:15→11:41)
[2020-11-21 04:00] VITALS: BP 132/63
[2020-11-21 04:07] LABS: BASOPHILS % (AUTO) 0 % (0-10); EOSINOPHILS # (AUTO) 0.2 10^3/uL (0.0-0.3); EOSINOPHILS % (AUTO) 3 % (0-10); HEMATOCRIT 33 % (35-52); HEMOGLOBIN 10.6 g/dL (11.5-16.0); LYMPHOCYTES # (AUTO) 1.9 10^3/uL (1.0-4.0); LYMPHOCYTES % (AUTO) 31 % (12-44); MEAN CORPUSCULAR HEMOGLOBIN 29 pg (25-34); MEAN CORPUSCULAR HGB CONC 32 g/dL (32-36); MEAN CORPUSCULAR VOLUME 89 fL (80-99); MEAN PLATELET VOLUME 10.3 fL (9.0-12.2); MONOCYTES # (AUTO) 0.7 10^3/uL (0.0-1.0); MONOCYTES % (AUTO) 12 % (0-12); NEUTROPHILS # (AUTO) 3.2 10^3/uL (1.8-7.8); NEUTROPHILS % (AUTO) 54 % (42-75); PLATELET COUNT 325 10^3/uL (130-400); WHITE BLOOD COUNT 5.9 10^3/uL (4.3-11.0)
[2020-11-21 04:28] LABS: ALBUMIN 2.8 GM/DL (3.2-4.5); CHLORIDE 111 MMOL/L (98-107); POTASSIUM 4.1 MMOL/L (3.6-5.0); SODIUM 143 MMOL/L (135-145)
[2020-11-21 04:30] LABS: GLUCOSE 103 MG/DL (70-105)
[2020-11-21 04:31] LABS: TOTAL PROTEIN 5.7 GM/DL (6.4-8.2)
[2020-11-21 04:32] LABS: CARBON DIOXIDE 22 MMOL/L (21-32)
[2020-11-21 04:33] LABS: BILIRUBIN,TOTAL 0.3 MG/DL (0.1-1.0)
[2020-11-21 04:34] LABS: ALKALINE PHOSPHATASE 159 U/L (40-136); CREATININE SERUM 0.89 MG/DL (0.60-1.30); GFR ESTIMATED > 60
[2020-11-21 04:35] LABS: BUN/CREATININE RATIO 16
[2020-11-21 04:37] LABS: ALANINE AMINOTRANSFERASE 13 U/L (0-55)
[2020-11-21] MEDS: inSUlin ASPART (NovoLOG) 1 UNIT/0.01 ML (CHARGE PER UNIT) SC SCH ×2 (06:27→12:12)
[2020-11-21] MEDS: predniSONE 5 MG TAB PO SCH (06:33)
[2020-11-21] MEDS: SENNA W/DOCUSATE (SENOKOT S) TABLET PO SCH (07:50)
[2020-11-21 08:00] VITALS: BP 153/83
--- NOTE | 2020-11-21 08:16 | Occupational Therapy Eval ---
OT Evaluation-General/PLF Medical Diagnosis Admission Date Nov 14, 2020 at 12:10 Medical Diagnosis: pneumonia/dehydration Onset Date: Nov 14, 2020 Therapy Diagnosis Therapy Diagnosis: Decreased ADL status Height/Weight Height (Feet): 5 Height (Inches): 4.00 Weight (Pounds): 216 Weight (Ounces): 4.2 Precautions Precautions/Isolations: Fall Prevention, Standard Precautions Weight Bear Status Weight Bearing Restriction: Weight Bearing/Tolerated Referral Physician: Molly Referral Reason: Activity Tolerance, Self Care, Evaluation/Treatment, Strengt hening/ROM Medical History Pertinent Medical History: Arthritis, CAD, DM, HTN, [place], OA, Renal Insufficiency Additional Medical History arthritis, CAD, DM, HTN, [place], OA, renal insufficiency, R knee+ shoulder replacement. Current History Pt admits with PNA/ dehydration. Over weekend, pt presented with AMS and R sided stroke-like sx (R side hemiplegia and facial droop). Pt transferred to ICU, CT scan negative for stroke and pt's sx resolved. Pt treated for TMJ dislocation/ Dr. Edmonds placed back in.). Transferred back to [facility] over weekend. Reviewed History: Yes Social History Home: Single Level Current Living Status: Alone ADL-Prior Level of Function SCALE: Activities may be completed with or without assistive devices. 1-Mnqdexcijg-onkrgtk completes the activity by him/herself with no assistance from a helper. 5-Set-up or Clean-up Assistance-helper sets up or cleans up; patient completes activity. [place] assists only prior to or following the activity. 4-Supervision or Touching Assistance-helper provides verbal cues and/or touching/steadying and/or contact guard assistance as patient completes activity. Assistance may be provided throughout the activity or intermittently. 3-Partial/Moderate Assistance-helper does LESS THAN HALF the effort. [place] lifts, holds or supports trunk or limbs, but provides less than half the effort. 2-Substantial/Maximal Assistance-helper does MORE THAN HALF the effort. [place] lifts or holds trunk or limbs and provides more than half the effort. 4-Ikvlujkjc-lynrqn does ALL the effort. Patient does none of the effort to complete the activity. Or, the assistance of 2 or more helpers is required for the patient to complete the activity. If activity was not attempted, code reason: 7-Patient Refused. 9-Not Applicable-not attempted and the patient did not perform the activity before the current illness, exacerbation or injury. 10-Not Attempted due to Environmental Limitations-(lack of equipment, weather restraints, etc.). 88-Not Attempted due to Medical Conditions or Safety Concerns. ADL PLOF Comments Pt states IND without use of AD (though has walker at home). Pt drives and completes IADLs with IND. Self Care: Independent Functional Cognition: Independent DME/Equipment: Bath Chair, Tub/Shower Occupation: retired Drive Self: Yes OT Current Status Subjective Pt AxO in bed. Pt states no sx/ R side weakness from weekend. Pt denies pain, denies nausea. Pt states she just ordered food and denies OOB until food arrives. Pt is educated on OT eval/ role. Pt agrees to complete EOB tasks then later completes OOB tasks. Requires increased time and encouragement for tasks. Mental Status/Objective Patient Orientation: Person, Place, Situation Current Glasses/Contacts: Yes Hearing Aids: No Dentures/Partials: Yes Upper Extremity ROM WFL BUE Upper Extremity Coordination WFL BUE Upper Extremity Sensation WFL BUE per pt. Upper Extremity Strength WFL BUE ADL-Treatment Eating (QC): 6 (per pt ) Oral Hygiene (QC): 4 (completes with SUP while standing at sink. ) Shower/Bathe Self (QC): 7 Lower Body Dressing (QC): 6 (per pt, pt IND with tasks (completing toileting with IND per pt)) On/Off Footwear (QC): 6 Toileting Hygiene (QC): 6 (per pt, pt IND with tasks (completing toileting with IND per pt)) Other Treatments Pt in bed, completes supine to EOB with increased time. Pt denies toileting, stating she has been completing on own and denies need at this time. Pt completes UE ROM/ MMT and sock doff/ donning EOB. Pt desires to brush hair, den ies completing shower cap. pt completes hair grooming with IND. Desires to brush teeth. Pt is educated to wait to stand until OT has gait belt, pt stands, refuses gait belt. pt ambulates to sink, completes oral care with SUP (good balance, no LOB, no c/o sx). Pt agrees to sit in chair since she is up. Pt sits in chair with all needs met, call light in reach, educated to call for assist when desire to get to bed. When asked, pt states her strength is at PLOF and states all ADLs at PLOF. Pt denies desiring continued OT sessions, stating she is at PLOF. However, after more questioning, pt states she would be okay with OT recommending meals on wheels, as pt is responsible for all IADLs. D/c OT at this time. Education OT Patient Education: Correct positioning, Progress toward Goal/Update tx plan, Purpose of tx/functional activities, Safety issues Teaching Recipient: Patient Teaching Methods: Demonstration, Discussion Response to Teaching: Verbalize Understanding, Return Demonstration OT Short Term Goals Short Term Goals Time Frame: Nov 22, 2020 OT Halfway Goals Lumber Mover Goals Time Frame: Nov 29, 2020 Additional Goals: 1-Demonstrate ADL Tasks, 2-Verbalize Understanding, 3-Improve Strength/Tay 1=Demonstrate adherence to instructed precautions during ADL tasks. 2=Patient will verbalize/demonstrate understanding of assistive devices/modifications for ADL. 3=Patient will improve strength/tolerance for activity to enable patient to pe rform ADL's. OT Education/Plan Problem List/Assessment Assessment: No Skilled OT Needs ID'd Discharge Recommendations Plan/Recommendations: Discharge/Goals Met Therapy Discharge Recommendati: Meals on Wheels, Home & Family Treatment Plan/Plan of Care Treatment,Training & Education: Yes Patient would benefit from OT for education, treatment and training to promote independence in ADL's, mobility, safety and/or upper extremity function for ADL's. Plan of Care: ADL Retraining, Functional Mobility, UE Funct Exercise/Act Treatment Duration: Nov 29, 2020 Frequency: 5 times per week Estimated Hrs Per Day: .25 hour per day Agreement: Yes Rehab Potential: Fair Time/GCodes Start Time: 07:55 Stop Time: 08:09 Total Time Billed (hr/min): 14 Billed Treatment Time 1, EVL (14) D/c with recommendations of Meals on Wheels. MARIMAR TY OTR Nov 21, 2020 08:16
--- NOTE | 2020-11-21 09:03 | Pulmonary Progress Note ---
Subjective Time Seen by a Provider: 09:03 Subjective/Events-last exam No complications noted. Sepsis Event Evaluation Height, Weight, BMI Height: 5'4.00" Weight: 216lbs. 4.2oz. 98.570522el; 28.85 BMI Method:Stated Focused Exam Lactate Level 11/18/20 18:45: Lactic Acid Level 1.08 Exam Exam Vital Signs Date Time Temp Pulse Resp B/P (MAP) Pulse Ox O2 Delivery O2 Flow Rate FiO2 11/21/20 08:00 36.2 77 16 153/83 (106) 93 Room Air 11/21/20 06:51 93 Room Air 11/21/20 04:00 36.5 69 16 132/63 (86) 95 Room Air 11/21/20 01:00 65 11/21/20 00:00 36.2 68 17 126/59 (81) 93 Room Air 11/20/20 20:50 Room Air 11/20/20 20:13 36.3 101 18 124/82 (96) 95 Room Air 11/20/20 19:00 88 11/20/20 15:55 36.4 79 18 101/65 (77) 95 Room Air 11/20/20 14:35 92 Room Air 11/20/20 12:59 95 11/20/20 12:00 36.5 91 30 122/78 (93) 92 Room Air I & O 11/21/20 07:00 Intake Total 1110 ml Balance 1110 ml Height & Weight Height: 5'4.00" Weight: 216lbs. 4.2oz. 98.496095ma; 28.85 BMI Method:Stated General Appearance: No Apparent Distress, WD/WN, Chronically ill HEENT: PERRL/EOMI, Moist Mucous Membranes Respiratory: Chest Non Tender, Lungs Clear, Normal Breath Sounds, No Accessory Muscle Use, No Respiratory Distress Cardiovascular: Regular Rate, Rhythm, No Edema, No Gallop, No JVD, No Murmur, Normal Peripheral Pulses Capillary Refill: Less Than 3 Seconds Peripheral Pulses: 2+ Radial Pulses (R), 2+ Radial Pulses (L) Gastrointestinal: normal bowel sounds, non tender, soft; No distended Extremity: No Calf Tenderness, No Pedal Edema Neurologic/Psychiatric: Alert, Oriented x3, No Motor/Sensory Deficits, Normal Mood/Affect Skin: Normal Color, Warm/Dry Results Lab Laboratory Tests 11/20/20 07:38 11/21/20 03:50 Assessment/Plan Assessment/Plan TIA - Symptoms now resolved Pt has multiple med allergies including NSAIDS -Monitor Hx of COPD -Currently not requiring oxygen -Repeat PCT -Duoneb Hx of carotid stenosis HTN CAD -Cardiology consulted Gastroenteritis CARMEL S/p COVID 10/09 hx of COPD Zenker diverticulum, attempt for surgical repair was done late in December 2018 in [facility], has failed attempt for surgery in the past, follows with GI at [facility]. History of esophageal paresis and GI bleed, unknown etiology Coronary artery disease, history of stent to the right coronary artery in 2009 using 3.512 mm Ion stent, last stress test done in December 2018 showing no ischemia or infarction with normal LV function. Continue to monitor Anemia of chronic disease followed with oncology History of liver injury secondary to trauma and bleed. History of chronic kidney disease, was on dialysis in November 2015, currently off dialysis. Diabetic nephropathy, she has been following with [facility] Mild bilateral carotid stenosis, ultrasound was done in November 2018. Continue to monitor Diabetes mellitus History of breast cancer, had lumpectomy on the left and radiation, followed by primary care physician History of DVT at the left arm related to PICC line, in 2002. History of renal artery stenosis, had a stent done in 2013, continue to monitor Hypothyroidism Status post recent right shoulder surgery with LISA Vidal DO Nov 21, 2020 09:03
[2020-11-21] MEDS: ASPIRIN E.C. 81 MG (ECOTRIN) TAB PO SCH (09:15)
[2020-11-21] MEDS: HYDROXYCHLOROQUINE 200 MG (PLAQUENIL) TAB PO SCH (09:15)
[2020-11-21] MEDS: VITAMIN D3 25 MCG (1,000 UNITS) TABLET PO SCH (09:15)
[2020-11-21] MEDS: toPIRamate 25 MG (TOPAMAX) TAB PO SCH (09:15)
[2020-11-21] MEDS: PANTOPRAZOLE 40 MG (PROTONIX) TAB PO SCH (09:15)
[2020-11-21] MEDS: amLODIPine 10 MG (NORVASC) TAB PO SCH (09:15)
[2020-11-21] MEDS: LEVETIRACETAM 500 MG (KEPPRA) TAB PO SCH (09:15)
[2020-11-21] MEDS: FOLIC ACID 1 MG TAB PO SCH (09:15)
[2020-11-21] MEDS: DULoxetine 30 MG (CYMBALTA) CAP PO SCH (09:16)
[2020-11-21] MEDS: meTOprolol SUCCINATE 100 MG (TOPROL XL) TAB PO SCH (09:16)
[2020-11-21] MEDS: ENOXAPARIN 80 MG/0.8 ML (LOVENOX) SYR SC SCH (09:16)
[2020-11-21] MEDS ORDERED: LIDOCAINE 1% INJ 20 ML 20 ML VIAL ONE (09:59)
--- NOTE | 2020-11-21 10:03 | Physical Therapy Evaluation ---
PT Evaluation-General Medical Diagnosis Admission Date Nov 14, 2020 at 12:10 Medical Diagnosis: pneumonia/dehydration Onset Date: Nov 14, 2020 Therapy Diagnosis Therapy Diagnosis: debility Height/Weight Height (Feet): 5 Height (Inches): 4.00 Weight (Pounds): 216 Weight (Ounces): 4.2 Precautions Precautions/Isolations: Fall Prevention, Standard Precautions Referral Physician: Molly Reason for Referral: Evaluation/Treatment Medical History Pertinent Medical History: Arthritis, CAD, DM, HTN, [place], OA, Renal Insufficiency Current History transfer to ICU secondary to stroke like symptoms and dislocated TMJ Reviewed History: Yes Social History Home: Single Level Current Living Status: Alone Prior Prior Level of Function SCALE: Activities may be completed with or without assistive devices. 2-Ecvhurpryv-wfettly completes the activity by him/herself with no assistance from a helper. 5-Set-up or Clean-up Assistance-helper sets up or cleans up; patient completes activity. [place] assists only prior to or following the activity. 4-Supervision or Touching Assistance-helper provides verbal cues and/or touching/steadying and/or contact guard assistance as patient completes activity. Assistance may be provided throughout the activity or intermittently. 3-Partial/Moderate Assistance-helper does LESS THAN HALF the effort. [place] lifts, holds or supports trunk or limbs, but provides less than half the effort. 2-Substantial/Maximal Assistance-helper does MORE THAN HALF the effort. [place] lifts or holds trunk or limbs and provides more than half the effort. 3-Wfsyljsvo-axpcap does ALL the effort. Patient does none of the effort to complete the activity. Or, the assistance of 2 or more helpers is required for the patient to complete the activity. If activity was not attempted, code reason: 7-Patient Refused. 9-Not Applicable-not attempted and the patient did not perform the activity before the current illness, exacerbation or injury. 10-Not Attempted due to Environmental Limitations-(lack of equipment, weather restraints, etc.). 88-Not Attempted due to Medical Conditions or Safety Concerns. Bed Mobility: 6 Transfers (B,C,W/C): 6 Gait: 6 Stairs: 6 Indoor Mobility (Ambulation): Independent Stairs: Independent Prior Devices Use: None Prior Device Use: has FWW for use if needed PT Evaluation-Current Subjective Patient reluctantly agrees to PT and states she just wants to go home. Objective Patient Orientation: Normal For Age ROM/Strength ROM Lower Extremities bilateral LE WFL Strength Lower Extremities 4/5 grossly bilateral LE Integumentary/Posture Integumentary refer to nursing notes Bowel Incontinence: No Bladder Incontinence: No Posture kyphotic Neuromuscular (Tone, Coordination, Reflexes) grossly intact Sensory Vision: Wears Glasses Hearing: Functional Transfers Sit to Lying (QC): 6 Lying to Sitting/Side of Bed(Q: 6 Sit to Stand (QC): 6 Chair/Oob-vv-Bjbah Xfer(QC): 6 Gait Does the Patient Walk?: Yes Mode of Locomotion: Walk Anticipated Mode of Locomotion: Walk Walk 10 feet (QC): 6 Walk 50 ft with 2 Turns(QC): 6 Walk 150 ft (QC): 6 Distance: 300' x 2 Gait Assistive Device: FWW Comments/Gait Description safe and functional with no deviation Stairs #of Steps: 4 1 Step (curb) (QC): 6 4 Steps (QC): 6 12 Steps (QC): 9 Balance Sitting Static: Normal Sitting Dynamic: Normal Standing Static: Normal Standing Dynamic: Normal Picking up an Object (QC): 6 Assessment/Needs 70 y.o. female, will be seen short term by skilled PT to address functional mobility to ensure safe return to home at maximum LOF. Rehab Potential: Fair PT Custodial Goals Custodial Goals PT Rn Perioperative Goals Time Frame: Nov 25, 2020 Roll Left & Right (QC): 6 Sit to Lying (QC): 6 Lying-Sitting on Side/Bed(QC): 6 Sit to Stand (QC): 6 Chair/Upe-im-Ycbwg Xfer(QC): 6 Toilet Transfer (QC): 6 Car Transfer (QC): 6 Does the Patient Walk: Yes Walk 10 feet (QC): 6 Walk 50ft with 2 Turns (QC): 6 Walk 150 ft (QC): 6 Walking 10ft on Uneven Surface: 6 1 Step (curb) (QC): 6 4 Steps (QC): 6 12 Steps (QC): 9 Picking up an Object (QC): 6 (seated position) Does the Pt use WC or Scooter?: No PT Plan Treatment/Plan Treatment Plan: Continue Plan of Care Treatment Plan: Education, Functional Activity Tay, Functional Strength, G ait, Safety, Therapeutic Exercise, Transfers Treatment Duration: Nov 25, 2020 Frequency: 6 times per week Estimated Hrs Per Day: .25 hour per day Patient and/or Family Agrees t: Yes Time/GCodes Time In: 909 Time Out: 920 Total Billed Treatment Time: 11 Total Billed Treatment 1 visit EVModC 11 min NESHA CHOUDHURY PT Nov 21, 2020 10:03
[2020-11-21] MEDS ORDERED: LEVE500T6 PO (10:10)
[2020-11-21] MEDS ORDERED: ASPI-1238 PO (10:10)
[2020-11-21] MEDS ORDERED: FURO40TA4 PO (10:10)
--- NOTE | 2020-11-21 10:13 | D/C HH Face to Face Order ---
D/C Face to Face Orders Reconcile Patient Problems Problems Reviewed?: Yes Instructions for Patient [facility] Patient Instructions/FollowUp: PCP 1 week Physician to follow Patient: [facility] Discharge Diet for Home: No Restrictions Patient Problems: N/V TIA with Seizure? s/p loop recorder Patient Data-Allergies,Ht & Wt Patient Allergies: Coded Allergies: clopidogrel (Verified Allergy, Severe, BLOOD CLOTS, 11/27/18) Penicillins (Verified Allergy, Mild, RASH, 11/27/18) carisoprodol (Verified Allergy, Mild, RASH, 11/27/18) cephalexin (Verified Allergy, Mild, RASH, 11/27/18) ketorolac (Verified Allergy, Mild, RASH, 11/27/18) prochlorperazine (Verified Allergy, Mild, RASH, 11/27/18) Carbamates (Verified Allergy, Unknown, Rash, 05/28/19) Height (Feet): 5 Height (Inches): 4.00 Weight (Pounds): 216 Weight (Ounces): 4.2 Home Health Need/Face to Face Date of Face to Face: Nov 21, 2020 Clinical Findings: Generalized weakness and fatigue, Instability, Muscle weakness, Unsteady gait I have seen Pt tqsv-re-xinc: Yes Discharged To: Home Diagnosis/Conditions: N/V TIA with Seizure? s/p loop recorder Patient is Homebound due to: Simran fall risk due to instabilty, Muscle weakness Homebound Status Due to the above stated illness, injury or surgical procedure (medical condition or diagnosis) and associated clinical findings, the patient is homebound because of his/her inability to leave home except with aid of a supportive device and/or person AND leaving the home requires a considerable and taxing effort or is medically contraindicated. Pt req the following assistanc: Walker Home Health Nursing Orders Home Health Services Order: Nursing Services, Senior Product Designer-Evaluate & Treat, Physical Therapy-Evaluate & Treat Certify Stmt I certify that this patient is under my care and that I, a nurse practitioner or a physician; a editorial assistant working with me, had a face to face encounter that - meets the physician face to face encounter requirements with this patient as fred gayle. OLIVE ISAAC DO Nov 21, 2020 10:13
--- NOTE | 2020-11-21 10:14 | Discharge Summary ---
Diagnosis/Chief Complaint Date of Admission Nov 14, 2020 at 12:10 Date of Discharge Discharge Date: Nov 21, 2020 Discharge Diagnosis Assessment: Seizure with TMJ dislocation on the right s/p resolved by Dr Edmonds Saturday Dehydration N/V/D from gastroenteritis CARMEL Severe debility from COVID-19 residual HTN CAD COPD Hypoxia baseline OA Plan: IVF Supportive care PT OT IRF? 11/16/20: Dr Whalen and Dr Singh consult DC Doxy 11/17 IV in case it is a factor for N/V 11/17/20: Reglan Monitor electrolytes 11/18/20: Stool studies IVF Supportive care 11/19/20: Move to 4th Kera Monitor closely 11/20/20: Likely DC soon Overall more debilitated but ambulates around fairly well still Discharge Summary Discharge Physical Examination Allergies: Coded Allergies: clopidogrel (Verified Allergy, Severe, BLOOD CLOTS, 11/27/18) Penicillins (Verified Allergy, Mild, RASH, 11/27/18) carisoprodol (Verified Allergy, Mild, RASH, 11/27/18) cephalexin (Verified Allergy, Mild, RASH, 11/27/18) ketorolac (Verified Allergy, Mild, RASH, 11/27/18) prochlorperazine (Verified Allergy, Mild, RASH, 11/27/18) Carbamates (Verified Allergy, Unknown, Rash, 05/28/19) Vitals & I&Os Vital Signs Date Time Temp Pulse Resp B/P (MAP) Pulse Ox O2 Delivery O2 Flow Rate FiO2 11/21/20 12:00 34.8 75 16 129/69 (89) 95 Room Air 11/19/20 13:00 25.00 40.00 11/18/20 10:40 21 General Appearance: Alert, Oriented X3, Cooperative Respiratory: Clear to Auscultation Cardiovascular: Regular Rate Neuro: Normal Gait, Normal Speech, Strength at 5/5 X4 Ext Psych/Mental Status: Mental Status NL Hospital Course Was the Problem List Reviewed?: Yes Hospital course: Pt had a lengthy hospital course for eight days after she was admitted for severe nausea and vomiting and dehydration and acute kidney injury. She had continued issues requiring aggressive IV fluid resuscitation and antiemetics. Labs returned back to normal, Dr. Whalen was consulted for possible scope, did not appear to be indicated. Dr Singh was consulted, cardiology was monitoring any type of arrhythmia, she did have an ICU stay when she had an unresponsive episode with mouth pain and right facial droop, requiring stroke protocol, which I arrived at the bedside, normal CT without contrast and CT angiogram showed no evidence of any large clot but she did have right-sided TMJ that was dislocated, Dr. Edmonds graciously placed that back in and she had no other events, but theory is she had some type of seizure, perhaps from a TIA so she was placed on Keppra 500 mg BID and will have close follow-up with her PCP and [facility] was set up. Labs (last 24 hrs) Laboratory Tests 11/14/20 09:53: White Blood Count 6.6, Red Blood Count 4.74, Hemoglobin 13.6, Hematocrit 42, Mean Corpuscular Volume 88, Mean Corpuscular Hemoglobin 29, Mean Corpuscular Hemoglobin Concent 33, Red Cell Distribution Width 12.6, Platelet Count 278, Mean Platelet Volume 10.0, Immature Granulocyte % (Auto) 1, Neutrophils (%) (Auto) 62, Lymphocytes (%) (Auto) 24, Monocytes (%) (Auto) 13H, Eosinophils (%) (Auto) 0, Basophils (%) (Auto) 0, Neutrophils # (Auto) 4.1, Lymphocytes # (Auto) 1.6, Monocytes # (Auto) 0.9, Eosinophils # (Auto) 0.0, Basophils # (Auto) 0.0, Immature Granulocyte # (Auto) 0.0 11/14/20 10:00: Sodium Level 139, Potassium Level 3.1L, Chloride Level 104, Carbon Dioxide Level 20L, Anion Gap 15H, Blood Urea Nitrogen 21H, Creatinine 1.30, Estimat Glomerular Filtration Rate 40, BUN/Creatinine Ratio 16, Glucose Level 172H, Calcium Level 7.4L, Corrected Calcium 7.7L, Magnesium Level 1.8, Total Bilirubin 0.3, Aspartate Amino Transf (AST/SGOT) 19, Alanine Aminotransferase (ALT/SGPT) 17, Alkaline Phosphatase 118, C-Reactive Protein High Sensitivity 5.16H, Total Protein 6.8, Albumin 3.6, Lipase 96H 11/14/20 11:18: Urine Color YELLOW, Urine Clarity CLEAR, Urine pH 5.5, Urine Specific Nemo >=1.030, Urine Protein 1+H, Urine Glucose (UA) NEGATIVE, Urine Ketones TRACEH, Urine Nitrite NEGATIVE, Urine Bilirubin 1+H, Urine Urobilinogen 0.2, Urine Leukocyte Esterase NEGATIVE, Urine RBC (Auto) NEGATIVE, Urine RBC RARE, Urine WBC 2-5, Urine Squamous Epithelial Cells 5-10, Urine Crystals PRESENTH, Urine Amorphous Sediment MOD TATA URATESH, Urine Bacteria FEWH, Urine Casts PRESENT, Urine Hyaline Casts 2-5H, Urine Granular Casts 0-2H, Urine Mucus NEGATIVE, Urine Culture Indicated YES 11/14/20 12:10: Lab Scanned Report Referred Lab Report 11/14/20 20:12: Glucometer 158H 11/15/20 04:22: White Blood Count 4.8, Red Blood Count 4.15, Hemoglobin 11.9, Hematocrit 37, Mean Corpuscular Volume 89, Mean Corpuscular Hemoglobin 29, Mean Corpuscular Hemoglobin Concent 32, Red Cell Distribution Width 12.9, Platelet Count 233, Mean Platelet Volume 9.9, Immature Granulocyte % (Auto) 1, Neutrophils (%) (Auto) 57, Lymphocytes (%) (Auto) 31, Monocytes (%) (Auto) 11, Eosinophils (%) (Auto) 0, Basophils (%) (Auto) 0, Neutrophils # (Auto) 2.7, Lymphocytes # (Auto) 1.5, Monocytes # (Auto) 0.5, Eosinophils # (Auto) 0.0, Basophils # (Auto) 0.0, Immature Granulocyte # (Auto) 0.0, Sodium Level 142, Potassium Level 3.1L, Chloride Level 111H, Carbon Dioxide Level 20L, Anion Gap 11, Blood Urea Nitrogen 15, Creatinine 1.05, Estimat Glomerular Filtration Rate 52, BUN/Creatinine Ratio 14, Glucose Level 123H, Calcium Level 6.9L, Corrected Calcium 7.6L, Total Bilirubin 0.3, Aspartate Amino Transf (AST/SGOT) 15, Alanine Aminotransferase (ALT/SGPT) 13, Alkaline Phosphatase 93, Total Protein 5.7L, Albumin 3.1L 11/15/20 06:07: Glucometer 120H 11/15/20 11:26: Glucometer 163H 11/15/20 15:37: Glucometer 171H 11/15/20 20:07: Glucometer 100 11/16/20 05:05: White Blood Count 4.6, Red Blood Count 3.57L, Hemoglobin 10.5L, Hematocrit 32L, Mean Corpuscular Volume 89, Mean Corpuscular Hemoglobin 29, Mean Corpuscular Hemoglobin Concent 33, Red Cell Distribution Width 12.9, Platelet Count 180, Mean Platelet Volume 9.7, Immature Granulocyte % (Auto) 0, Neutrophils (%) (Auto) 66, Lymphocytes (%) (Auto) 24, Monocytes (%) (Auto) 9, Eosinophils (%) (Auto) 1, Basophils (%) (Auto) 0, Neutrophils # (Auto) 3.0, Lymphocytes # (Auto) 1.1, Monocytes # (Auto) 0.4, Eosinophils # (Auto) 0.0, Basophils # (Auto) 0.0, Immature Granulocyte # (Auto) 0.0, Sodium Level 140, Potassium Level 3.3L, Chloride Level 112H, Carbon Dioxide Level 20L, Anion Gap 8, Blood Urea Nitrogen 13, Creatinine 0.92, Estimat Glomerular Filtration Rate 60, BUN/Creatinine Ratio 14, Glucose Level 114H, Calcium Level 6.7L, Corrected Calcium 7.6L, Total Bilirubin 0.2, Aspartate Amino Transf (AST/SGOT) 16, Alanine Aminotransferase (ALT/SGPT) 11, Alkaline Phosphatase 85, Total Protein 5.4L, Albumin 2.9L, Amylase Level 38, Lipase 75 11/16/20 11:15: Glucometer 153H 11/16/20 16:24: Glucometer 120H 11/16/20 20:14: Glucometer 107 11/17/20 05:37: White Blood Count 3.8L, Red Blood Count 3.92, Hemoglobin 11.4L, Hematocrit 35, Mean Corpuscular Volume 88, Mean Corpuscular Hemoglobin 29, Mean Corpuscular Hem oglobin Concent 33, Red Cell Distribution Width 13.0, Platelet Count 192, Mean Platelet Volume 9.9, Immature Granulocyte % (Auto) 1, Neutrophils (%) (Auto) 58, Lymphocytes (%) (Auto) 29, Monocytes (%) (Auto) 11, Eosinophils (%) (Auto) 1, Basophils (%) (Auto) 0, Neutrophils # (Auto) 2.2, Lymphocytes # (Auto) 1.1, Monocytes # (Auto) 0.4, Eosinophils # (Auto) 0.0, Basophils # (Auto) 0.0, Immature Granulocyte # (Auto) 0.0, Sodium Level 143, Potassium Level 3.2L, Chloride Level 111H, Carbon Dioxide Level 20L, Anion Gap 12, Blood Urea Nitrogen 11, Creatinine 0.93, Estimat Glomerular Filtration Rate 59, BUN/Creatinine Ratio 12, Glucose Level 95, Calcium Level 7.5L, Corrected Calcium 8.2L, Total Bilirubin 0.3, Aspartate Amino Transf (AST/SGOT) 17, Alanine Aminotransferase (ALT/SGPT) 10, Alkaline Phosphatase 97, Total Protein 5.7L, Albumin 3.1L 11/17/20 08:10: Glucometer 111H 11/17/20 11:05: Glucometer 106 11/17/20 16:03: Glucometer 93 11/17/20 20:29: Glucometer 85 11/18/20 05:40: White Blood Count 4.8, Red Blood Count 4.10, Hemoglobin 11.7, Hematocrit 36, Mean Corpuscular Volume 88, Mean Corpuscular Hemoglobin 29, Mean Corpuscular Hemoglobin Concent 33, Red Cell Distribution Width 12.9, Platelet Count 232, Mean Platelet Volume 10.0, Immature Granulocyte % (Auto) 0, Neutrophils (%) (Auto) 60, Lymphocytes (%) (Auto) 28, Monocytes (%) (Auto) 11, Eosinophils (%) (Auto) 0, Basophils (%) (Auto) 0, Neutrophils # (Auto) 2.9, Lymphocytes # (Auto) 1.4, Monocytes # (Auto) 0.5, Eosinophils # (Auto) 0.0, Basophils # (Auto) 0.0, Immature Granulocyte # (Auto) 0.0, Sodium Level 138, Potassium Level 3.3L, Chloride Level 106, Carbon Dioxide Level 20L, Anion Gap 12, Blood Urea Nitrogen 11, Creatinine 0.97, Estimat Glomerular Filtration Rate 56, BUN/Creatinine Ratio 11, Glucose Level 83, Calcium Level 7.7L, Corrected Calcium 8.3L, Total Bilirubin 0.3, Aspartate Amino Transf (AST/SGOT) 21, Alanine Aminotransferase (ALT/SGPT) 12, Alkaline Phosphatase 136, Total Protein 6.1L, Albumin 3.2 11/18/20 11:21: Glucometer 102 11/18/20 14:26: Stool Occult Blood Immunoassay NEGATIVE 11/18/20 16:21: Glucometer 95 11/18/20 18:45: White Blood Count 6.2, Red Blood Count 4.13, Hemoglobin 11.8, Hematocrit 36, Mean Corpuscular Volume 88, Mean Corpuscular Hemoglobin 29, Mean Corpuscular Hemoglobin Concent 33, Red Cell Distribution Width 12.8, Platelet Count 241, Mean Platelet Volume 10.4, Immature Granulocyte % (Auto) 1, Neutrophils (%) (Auto) 67, Lymphocytes (%) (Auto) 21, Monocytes (%) (Auto) 10, Eosinophils (%) (Auto) 1, Basophils (%) (Auto) 0, Neutrophils # (Auto) 4.1, Lymphocytes # (Auto) 1.3, Monocytes # (Auto) 0.6, Eosinophils # (Auto) 0.1, Basophils # (Auto) 0.0, Immature Granulocyte # (Auto) 0.0, Erythrocyte Sedimentation Rate 74H, Sodium Level 136, Potassium Level 3.9, Chloride Level 105, Carbon Dioxide Level 20L, Anion Gap 11, Blood Urea Nitrogen 11, Creatinine 0.92, Estimat Glomerular Filtration Rate 60, BUN/Creatinine Ratio 12, Glucose Level 119H, Lactic Acid Level 1.08, Calcium Level 7.6L, Corrected Calcium 8.3L, Total Bilirubin 0.4, Aspartate Amino Transf (AST/SGOT) 21, Alanine Aminotransferase (ALT/SGPT) 11, Alkaline Phosphatase 136, Troponin I < 0.028, Total Protein 6.1L, Albumin 3.1L, Procalcitonin 0.08 11/18/20 20:12: Glucometer 112H 11/19/20 03:00: Procalcitonin 0.09 11/19/20 03:15: White Blood Count 5.5, Red Blood Count 3.77L, Hemoglobin 10.8L, Hematocrit 33L, Mean Corpuscular Volume 88, Mean Corpuscular Hemoglobin 29, Mean Corpuscular Hemoglobin Concent 33, Red Cell Distribution Width 12.8, Platelet Count 231, Mean Platelet Volume 10.1, Immature Granulocyte % (Auto) 0, Neutrophils (%) (Auto) 59, Lymphocytes (%) (Auto) 27, Monocytes (%) (Auto) 12, Eosinophils (%) (Auto) 1, Basophils (%) (Auto) 0, Neutrophils # (Auto) 3.3, Lymphocytes # (Auto) 1.5, Monocytes # (Auto) 0.7, Eosinophils # (Auto) 0.1, Basophils # (Auto) 0.0, Immature Granulocyte # (Auto) 0.0, Sodium Level 140, Potassium Level 3.8, Chloride Level 107, Carbon Dioxide Level 20L, Anion Gap 13, Blood Urea Nitrogen 12, Creatinine 0.85, Estimat Glomerular Filtration Rate > 60, BUN/Creatinine Ratio 14, Glucose Level 73, Calcium Level 7.5L, Phosphorus Level 3.2, Magnesium Level 1.6 11/19/20 12:02: Glucometer 116H 11/19/20 15:33: Glucometer 149H 11/19/20 20:05: Glucometer 107 11/20/20 05:48: Glucometer 111H 11/20/20 07:38: White Blood Count 5.4, Red Blood Count 3.67L, Hemoglobin 10.6L, Hematocrit 33L, Mean Corpuscular Volume 89, Mean Corpuscular Hemoglobin 29, Mean Corpuscular Hemoglobin Concent 33, Red Cell Distribution Width 12.9, Platelet Count 271, Mean Platelet Volume 10.5, Immature Granulocyte % (Auto) 0, Neutrophils (%) (Auto) 61, Lymphocytes (%) (Auto) 22, Monocytes (%) (Auto) 15H, Eosinophils (%) (Auto) 2, Basophils (%) (Auto) 0, Neutrophils # (Auto) 3.3, Lymphocytes # (Auto) 1.2, Monocytes # (Auto) 0.8, Eosinophils # (Auto) 0.1, Basophils # (Auto) 0.0, Immature Granulocyte # (Auto) 0.0, Sodium Level 139, Potassium Level 3.9, Chloride Level 108H, Carbon Dioxide Level 21, Anion Gap 10, Blood Urea Nitrogen 13, Creatinine 0.86, Estimat Glomerular Filtration Rate > 60, BUN/Creatinine Ratio 15, Glucose Level 131H, Calcium Level 7.5L, Corrected Calcium 8.5, Total Bilirubin 0.3, Aspartate Amino Transf (AST/SGOT) 16, Alanine Aminotransferase (ALT/SGPT) 13, Alkaline Phosphatase 160H, Total Protein 5.6L, Albumin 2.8L 11/20/20 11:17: Glucometer 155H 11/20/20 15:28: Glucometer 122H 11/20/20 20:34: Glucometer 124H 11/21/20 03:50: White Blood Count 5.9, Red Blood Count 3.66L, Hemoglobin 10.6L, Hematocrit 33L, Mean Corpuscular Volume 89, Mean Corpuscular Hemoglobin 29, Mean Corpuscular Hemoglobin Concent 32, Red Cell Distribution Width 12.9, Platelet Count 325, Mean Platelet Volume 10.3, Immature Granulocyte % (Auto) 0, Neutrophils (%) (Auto) 54, Lymphocytes (%) (Auto) 31, Monocytes (%) (Auto) 12, Eosinophils (%) (Auto) 3, Basophils (%) (Auto) 0, Neutrophils # (Auto) 3.2, Lymphocytes # (Auto) 1.9, Monocytes # (Auto) 0.7, Eosinophils # (Auto) 0.2, Basophils # (Auto) 0.0, Immature Granulocyte # (Auto) 0.0, Sodium Level 143, Potassium Level 4.1, Chloride Level 111H, Carbon Dioxide Level 22, Anion Gap 10, Blood Urea Nitrogen 14, Creatinine 0.89, Estimat Glomerular Filtration Rate > 60, BUN/Creatinine Ratio 16, Glucose Level 103, Calcium Level 8.0L, Corrected Calcium 9.0, Total Bilirubin 0.3, Aspartate Amino Transf (AST/SGOT) 18, Alanine Aminotransferase (A LT/SGPT) 13, Alkaline Phosphatase 159H, Total Protein 5.7L, Albumin 2.8L 11/21/20 06:22: Glucometer 107 Microbiology 11/18/20 C. difficile GDH Antigen & Toxins - Final, Complete 11/18/20 Stool Culture - Final, Complete 11/14/20 Urine Culture - Final, Complete Mixed Bacterial Marilin Proteus species Gram Negative Ildefonso See Comments Pending Labs Microbiology Date/Time Source Procedure Growth Status 11/18/20 14:26 Stool C. difficile GDH Antigen & Toxins - Final Complete 11/18/20 14:26 Stool Stool Culture - Final Complete 11/14/20 11:18 Urine Clean Catch Urine Culture - Final Mixed Bacterial Marilin Proteus species Gram Negative Ildefonso See Comments Complete Laboratory Tests 11/14/20 09:53: White Blood Count 6.6, Red Blood Count 4.74, Hemoglobin 13.6, Hematocrit 42, Mean Corpuscular Volume 88, Mean Corpuscular Hemoglobin 29, Mean Corpuscular Hemoglobin Concent 33, Red Cell Distribution Width 12.6, Platelet Count 278, Mean Platelet Volume 10.0, Immature Granulocyte % (Auto) 1, Neutrophils (%) (Auto) 62, Lymphocytes (%) (Auto) 24, Monocytes (%) (Auto) 13, Eosinophils (%) (Auto) 0, Basophils (%) (Auto) 0, Neutrophils # (Auto) 4.1, Lymphocytes # (Auto) 1.6, Monocytes # (Auto) 0.9, Eosinophils # (Auto) 0.0, Basophils # (Auto) 0.0, Immature Granulocyte # (Auto) 0.0 11/14/20 10:00: Sodium Level 139, Potassium Level 3.1, Chloride Level 104, Carbon Dioxide Level 20, Anion Gap 15, Blood Urea Nitrogen 21, Creatinine 1.30, Estimat Glomerular Filtration Rate 40, BUN/Creatinine Ratio 16, Glucose Level 172, Calcium Level 7.4, Corrected Calcium 7.7, Magnesium Level 1.8, Total Bilirubin 0.3, Aspartate Amino Transf (AST/SGOT) 19, Alanine Aminotransferase (ALT/SGPT) 17, Alkaline Phosphatase 118, C-Reactive Protein High Sensitivity 5.16, Total Protein 6.8, Albumin 3.6, Lipase 96 11/14/20 11:18: Urine Color YELLOW, Urine Clarity CLEAR, Urine pH 5.5, Urine Specific Nemo >=1.030, Urine Protein 1+, Urine Glucose (UA) NEGATIVE, Urine Ketones TRACE, Urine Nitrite NEGATIVE, Urine Bilirubin 1+, Urine Urobilinogen 0.2, Urine Leukocyte Esterase NEGATIVE, Urine RBC (Auto) NEGATIVE, Urine RBC RARE, Urine WBC 2-5, Urine Squamous Epithelial Cells 5-10, Urine Crystals PRESENT, Urine Amorphous Sediment MOD TATA URATES, Urine Bacteria FEW, Urine Casts PRESENT, Urine Hyaline Casts 2-5, Urine Granular Casts 0-2, Urine Mucus NEGATIVE, Urine Culture Indicated YES 11/14/20 12:10: Lab Scanned Report Referred Lab Report 11/14/20 20:12: Glucometer 158 11/15/20 04:22: White Blood Count 4.8, Red Blood Count 4.15, Hemoglobin 11.9, Hematocrit 37, Mean Corpuscular Volume 89, Mean Corpuscular Hemoglobin 29, Mean Corpuscular Hemoglobin Concent 32, Red Cell Distribution Width 12.9, Platelet Count 233, Mean Platelet Volume 9.9, Immature Granulocyte % (Auto) 1, Neutrophils (%) (Auto) 57, Lymphocytes (%) (Auto) 31, Monocytes (%) (Auto) 11, Eosinophils (%) (Auto) 0, Basophils (%) (Auto) 0, Neutrophils # (Auto) 2.7, Lymphocytes # (Auto) 1.5, Monocytes # (Auto) 0.5, Eosinophils # (Auto) 0.0, Basophils # (Auto) 0.0, Immature Granulocyte # (Auto) 0.0, Sodium Level 142, Potassium Level 3.1, Chloride Level 111, Carbon Dioxide Level 20, Anion Gap 11, Blood Urea Nitrogen 15, Creatinine 1.05, Estimat Glomerular Filtration Rate 52, BUN/Creatinine Ratio 14, Glucose Level 123, Calcium Level 6.9, Corrected Calcium 7.6, Total Bilirubin 0.3, Aspartate Amino Transf (AST/SGOT) 15, Alanine Aminotransferase (ALT/SGPT) 13, Alkaline Phosphatase 93, Total Protein 5.7, Albumin 3.1 11/15/20 06:07: Glucometer 120 11/15/20 11:26: Glucometer 163 11/15/20 15:37: Glucometer 171 11/15/20 20:07: Glucometer 100 11/16/20 05:05: White Blood Count 4.6, Red Blood Count 3.57, Hemoglobin 10.5, Hematocrit 32, Me an Corpuscular Volume 89, Mean Corpuscular Hemoglobin 29, Mean Corpuscular Hemoglobin Concent 33, Red Cell Distribution Width 12.9, Platelet Count 180, Mean Platelet Volume 9.7, Immature Granulocyte % (Auto) 0, Neutrophils (%) (Auto) 66, Lymphocytes (%) (Auto) 24, Monocytes (%) (Auto) 9, Eosinophils (%) (Auto) 1, Basophils (%) (Auto) 0, Neutrophils # (Auto) 3.0, Lymphocytes # (Auto) 1.1, Monocytes # (Auto) 0.4, Eosinophils # (Auto) 0.0, Basophils # (Auto) 0.0, Immature Granulocyte # (Auto) 0.0, Sodium Level 140, Potassium Level 3.3, Chloride Level 112, Carbon Dioxide Level 20, Anion Gap 8, Blood Urea Nitrogen 13, Creatinine 0.92, Estimat Glomerular Filtration Rate 60, BUN/Creatinine Ratio 14, Glucose Level 114, Calcium Level 6.7, Corrected Calcium 7.6, Total Bilirubin 0.2, Aspartate Amino Transf (AST/SGOT) 16, Alanine Aminotransferase (ALT/SGPT) 11, Alkaline Phosphatase 85, Total Protein 5.4, Albumin 2.9, Amylase Level 38, Lipase 75 11/16/20 11:15: Glucometer 153 11/16/20 16:24: Glucometer 120 11/16/20 20:14: Glucometer 107 11/17/20 05:37: White Blood Count 3.8, Red Blood Count 3.92, Hemoglobin 11.4, Hematocrit 35, Mean Corpuscular Volume 88, Mean Corpuscular Hemoglobin 29, Mean Corpuscular Hemoglobin Concent 33, Red Cell Distribution Width 13.0, Platelet Count 192, Mean Platelet Volume 9.9, Immature Granulocyte % (Auto) 1, Neutrophils (%) (Auto) 58, Lymphocytes (%) (Auto) 29, Monocytes (%) (Auto) 11, Eosinophils (%) (Auto) 1, Basophils (%) (Auto) 0, Neutrophils # (Auto) 2.2, Lymphocytes # (Auto) 1.1, Monocytes # (Auto) 0.4, Eosinophils # (Auto) 0.0, Basophils # (Auto) 0.0, Immature Granulocyte # (Auto) 0.0, Sodium Level 143, Potassium Level 3.2, Chloride Level 111, Carbon Dioxide Level 20, Anion Gap 12, Blood Urea Nitrogen 11, Creatinine 0.93, Estimat Glomerular Filtration Rate 59, BUN/Creatinine Ratio 12, Glucose Level 95, Calcium Level 7.5, Corrected Calcium 8.2, Total Bilirubin 0.3, Aspartate Amino Transf (AST/SGOT) 17, Alanine Aminotransferase (ALT/SGPT) 10, Alkaline Phosphatase 97, Total Protein 5.7, Albumin 3.1 11/17/20 08:10: Glucometer 111 11/17/20 11:05: Glucometer 106 11/17/20 16:03: Glucometer 93 11/17/20 20:29: Glucometer 85 11/18/20 05:40: White Blood Count 4.8, Red Blood Count 4.10, Hemoglobin 11.7, Hematocrit 36, Mean Corpuscular Volume 88, Mean Corpuscular Hemoglobin 29, Mean Corpuscular Hemoglobin Concent 33, Red Cell Distribution Width 12.9, Platelet Count 232, Mean Platelet Volume 10.0, Immature Granulocyte % (Auto) 0, Neutrophils (%) (Auto) 60, Lymphocytes (%) (Auto) 28, Monocytes (%) (Auto) 11, Eosinophils (%) (Auto) 0, Basophils (%) (Auto) 0, Neutrophils # (Auto) 2.9, Lymphocytes # (Auto) 1.4, Monocytes # (Auto) 0.5, Eosinophils # (Auto) 0.0, Basophils # (Auto) 0.0, Immature Granulocyte # (Auto) 0.0, Sodium Level 138, Potassium Level 3.3, Chloride Level 106, Carbon Dioxide Level 20, Anion Gap 12, Blood Urea Nitrogen 11, Creatinine 0.97, Estimat Glomerular Filtration Rate 56, BUN/Creatinine Ratio 11, Glucose Level 83, Calcium Level 7.7, Corrected Calcium 8.3, Total Bilirubin 0.3, Aspartate Amino Transf (AST/SGOT) 21, Alanine Aminotransferase (ALT/SGPT) 12, Alkaline Phosphatase 136, Total Protein 6.1, Albumin 3.2 11/18/20 11:21: Glucometer 102 11/18/20 14:26: Stool Occult Blood Immunoassay NEGATIVE 11/18/20 16:21: Glucometer 95 11/18/20 18:45: White Blood Count 6.2, Red Blood Count 4.13, Hemoglobin 11.8, Hematocrit 36, Mean Corpuscular Volume 88, Mean Corpuscular Hemoglobin 29, Mean Corpuscular Hemoglobin Concent 33, Red Cell Distribution Width 12.8, Platelet Count 241, Mean Platelet Volume 10.4, Immature Granulocyte % (Auto) 1, Neutrophils (%) (Auto) 67, Lymphocytes (%) (Auto) 21, Monocytes (%) (Auto) 10, Eosinophils (%) (Auto) 1, Basophils (%) (Auto) 0, Neutrophils # (Auto) 4.1, Lymphocytes # (Auto) 1.3, Monocytes # (Auto) 0.6, Eosinophils # (Auto) 0.1, Basophils # (Auto) 0.0, Immature Granulocyte # (Auto) 0.0, Erythrocyte Sedimentation Rate 74, Sodium Level 136, Potassium Level 3.9, Chloride Level 105, Carbon Dioxide Level 20, Anion Gap 11, Blood Urea Nitrogen 11, Creatinine 0.92, Estimat Glomerular Filtration Rate 60, BUN/Creatinine Ratio 12, Glucose Level 119, Lactic Acid Level 1.08, Calcium Level 7.6, Corrected Calcium 8.3, Total Bilirubin 0.4, Aspartate Amino Transf (AST/SGOT) 21, Alanine Aminotransferase (ALT/SGPT) 11, Alkaline Phosphatase 136, Troponin I < 0.028, Total Protein 6.1, Albumin 3.1, Procalcitonin 0.08 11/18/20 20:12: Glucometer 112 11/19/20 03:00: Procalcitonin 0.09 11/19/20 03:15: White Blood Count 5.5, Red Blood Count 3.77, Hemoglobin 10.8, Hematocrit 33, Mean Corpuscular Volume 88, Mean Corpuscular Hemoglobin 29, Mean Corpuscular Hemoglobin Concent 33, Red Cell Distribution Width 12.8, Platelet Count 231, Mean Platelet Volume 10.1, Immature Granulocyte % (Auto) 0, Neutrophils (%) (Auto) 59, Lymphocytes (%) (Auto) 27, Monocytes (%) (Auto) 12, Eosinophils (%) (Auto) 1, Basophils (%) (Auto) 0, Neutrophils # (Auto) 3.3, Lymphocytes # (Auto) 1.5, Monocytes # (Auto) 0.7, Eosinophils # (Auto) 0.1, Basophils # (Auto) 0.0, Immature Granulocyte # (Auto) 0.0, Sodium Level 140, Potassium Level 3.8, Chloride Level 107, Carbon Dioxide Level 20, Anion Gap 13, Blood Urea Nitrogen 12, Creatinine 0.85, Estimat Glomerular Filtration Rate > 60, BUN/Creatinine Ratio 14, Glucose Level 73, Calcium Level 7.5, Phosphorus Level 3.2, Magnesium Level 1.6 11/19/20 12:02: Glucometer 116 11/19/20 15:33: Glucometer 149 11/19/20 20:05: Glucometer 107 11/20/20 05:48: Glucometer 111 11/20/20 07:38: White Blood Count 5.4, Red Blood Count 3.67, Hemoglobin 10.6, Hematocrit 33, Me an Corpuscular Volume 89, Mean Corpuscular Hemoglobin 29, Mean Corpuscular Hemoglobin Concent 33, Red Cell Distribution Width 12.9, Platelet Count 271, Mean Platelet Volume 10.5, Immature Granulocyte % (Auto) 0, Neutrophils (%) (Auto) 61, Lymphocytes (%) (Auto) 22, Monocytes (%) (Auto) 15, Eosinophils (%) (Auto) 2, Basophils (%) (Auto) 0, Neutrophils # (Auto) 3.3, Lymphocytes # (Auto) 1.2, Monocytes # (Auto) 0.8, Eosinophils # (Auto) 0.1, Basophils # (Auto) 0.0, Immature Granulocyte # (Auto) 0.0, Sodium Level 139, Potassium Level 3.9, Chloride Level 108, Carbon Dioxide Level 21, Anion Gap 10, Blood Urea Nitrogen 13, Creatinine 0.86, Estimat Glomerular Filtration Rate > 60, BUN/Creatinine Ratio 15, Glucose Level 131, Calcium Level 7.5, Corrected Calcium 8.5, Total Bilirubin 0.3, Aspartate Amino Transf (AST/SGOT) 16, Alanine Aminotransferase (ALT/SGPT) 13, Alkaline Phosphatase 160, Total Protein 5.6, Albumin 2.8 11/20/20 11:17: Glucometer 155 11/20/20 15:28: Glucometer 122 11/20/20 20:34: Glucometer 124 11/21/20 03:50: White Blood Count 5.9, Red Blood Count 3.66, Hemoglobin 10.6, Hematocrit 33, Mean Corpuscular Volume 89, Mean Corpuscular Hemoglobin 29, Mean Corpuscular Hemoglobin Concent 32, Red Cell Distribution Width 12.9, Platelet Count 325, Mean Platelet Volume 10.3, Immature Granulocyte % (Auto) 0, Neutrophils (%) (Auto) 54, Lymphocytes (%) (Auto) 31, Monocytes (%) (Auto) 12, Eosinophils (%) (Auto) 3, Basophils (%) (Auto) 0, Neutrophils # (Auto) 3.2, Lymphocytes # (Auto) 1.9, Monocytes # (Auto) 0.7, Eosinophils # (Auto) 0.2, Basophils # (Auto) 0.0, Immature Granulocyte # (Auto) 0.0, Sodium Level 143, Potassium Level 4.1, Chloride Level 111, Carbon Dioxide Level 22, Anion Gap 10, Blood Urea Nitrogen 14, Creatinine 0.89, Estimat Glomerular Filtration Rate > 60, BUN/Creatinine Ratio 16, Glucose Level 103, Calcium Level 8.0, Corrected Calcium 9.0, Total Bilirubin 0.3, Aspartate Amino Transf (AST/SGOT) 18, Alanine Aminotransferase (ALT/SGPT) 13, Alkaline Phosphatase 159, Total Protein 5.7, Albumin 2.8 11/21/20 06:22: Glucometer 107 Discharge Home Medications: Active Scripts Active Levetiracetam 500 Mg Tablet 500 Mg PO BID Aspirin EC (Aspirin) 81 Mg Tablet.dr 81 Mg PO DAILY Furosemide 40 Mg Tablet 40 Mg PO DAILY PRN Reported Levemir Flextouch (Insulin Detemir) 100 Unit/1 Ml Insuln.pen 8 Unit SQ DAILY PRN Amlodipine Besylate 10 Mg Tablet 10 Mg PO DAILY Prednisone 2.5 Mg Tablet 2.5 Mg PO DAILY XNT-Qugfjw-Bfvn-Cod #3 Capsule (Codeine/Butalbital/ASA/Caffein) 1 Each Capsule 1 Each PO DAILY PRN Vitamin D3 (Cholecalciferol (Vitamin D3)) 50 Mcg Tablet 50 Mcg PO DAILY Atorvastatin Calcium 40 Mg Tablet 40 Mg PO HS Metoprolol Succinate 100 Mg Tab.er.24h 100 Mg PO DAILY Cymbalta (Duloxetine HCl) 60 Mg Capsule.dr 60 Mg PO DAILY TAKES ALONG WITH 30MG CAPSULE FOR A TOTAL DAILY DOSE OF 90MG Hydroxychloroquine Sulfate 200 Mg Tablet 200 Mg PO BID Folic Acid 1 Mg Tablet 1 Mg PO DAILY Cymbalta (Duloxetine HCl) 30 Mg Capsule.dr 30 Mg PO DAILY TAKE ALONG WITH 60MG CAP FOR A TOTAL DAILY DOSE OF 90MG Topiramate 50 Mg Tablet 75 Mg PO BID TAKE 1 & 1/2 OF 50MG TAB Pantoprazole Sodium 40 Mg Tablet.dr 40 Mg PO DAILY Instructions to patient/family Please see electronic discharge instructions given to patient. Diagnosis/Problems Diagnosis/Problems (1) Nausea vomiting and diarrhea Status: Acute (2) 2019 novel coronavirus disease (COVID-19) Status: Acute (3) Mild dehydration Status: Acute (4) Generalized weakness Status: Acute (5) Pneumonia Status: Acute Qualifiers: Qualified Codes: J18.9 - Pneumonia, unspecified organism (6) Dehydration Status: Acute (7) Viral syndrome Status: Acute (8) Type 2 diabetes mellitus Status: Chronic (9) Normocytic anemia Status: Acute (10) Restless leg syndrome Status: Chronic (11) Renal insufficiency (12) Hyperlipidemia Status: Chronic (13) Essential hypertension Status: Chronic (14) Coronary artery disease Status: Chronic OLIVE ISAAC DO Nov 21, 2020 10:13
--- NOTE | 2020-11-21 10:21 | NUR ---
CM/SS: Visited with pt as per her plan for discharge and also per Building [employer]or Consult related to help in the home. Plan: Pt to discharge to home - with [facility]. Summary: Pt reports she is ready to go home. Discuss with pt home care services. Pt is ok with that and prefers [facility]. Pt reports no other identified needs. Pt is wished well. Telephone call to [facility] to let them know of the referral. They ask about insurance and accept what the pt has. Information to be faxed to them. This worker will follow up.
--- NOTE | 2020-11-21 10:25 | NUR ---
UPON ARRIVAL TO PT ROOM TO GIVE DC PAPERS, NOTED PT AND BED NOT IN ROOM. IN ELECTRONICS LEAD FOR LOOP RECORDER.
[2020-11-21] MEDS ORDERED: LIDOCAINE 1% INJ 20 ML 20 ML VIAL INJ ONE (11:00)
--- NOTE | 2020-11-21 11:23 | Cardiology Progress Note ---
Subjective Date Seen by Provider: Nov 21, 2020 Time Seen by Provider: 11:22 Subjective/Events-last exam Patient is feeling well, back to baseline. No new complaint Review of Systems General: No Chills, No Night Sweats, No Fatigue, No Malaise, No Appetite, No Other HEENT: No Head Aches, No Visual Changes, No Eye Pain, No Ear Pain, No Dysphasia, No Sinus Congestion, No Post Nasal Drip, No Sore Throat, No Other Pulmonary: No Dyspnea, No Cough, No Pleuritic Chest Pain, No Other Cardiovascular: No: Chest Pain, Palpitations, Orthopnea, Paroxysmal Noc. Dyspnea, Edema, Lt Headedness, Other Focused Exam Lactate Level 11/18/20 18:45: Lactic Acid Level 1.08 Objective-Cardiology Exam Last Set of Vital Signs Vital Signs 11/18/20 11/19/20 10:40 13:00 O2 Flow Rate 25.00 40.00 FiO2 21 Capillary Refill : Less Than 3 SecondsLess Than 3 Seconds I&O Intake and Output 11/21/20 00:00 Intake Total 1090 ml Balance 1090 ml Intake Oral 1090 ml # Voids 8 # Bowel Movements 2 General: Alert, Oriented X3, Cooperative HEENT: Atraumatic, PERRLA Neck: Supple, No JVD, No Thyromegaly Lungs: Normal Air Movement, Other (bilateral rhonchi) Heart: Normal S1, Normal S2, No Murmurs, Other (tachycardia) Abdomen: Normal Bowel Sounds, Soft, No Tenderness, No Hepatosplenomegaly, No Masses Extremities: No Clubbing, No Cyanosis, No Edema, Normal Pulses, No Tenderness/Swelling Skin: No Rashes, No Breakdown, No Significant Lesion Neuro: Normal Speech, Normal Tone, Sensation Intact Psych/Mental Status: Mental Status NL, Mood NL Results Lab Laboratory Tests 11/21/20 03:50 A/P-Cardiology Admission Diagnosis pneumonia CAD HTN HLP Assessment/Plan Acute TIA vs Seizre, patient developed right hemiplegia and left facial droop on November 18, 2020 resolved overnight, workup including CTA of the head and neck showed 50-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 Patient is maintained on aspirin, I added Lovenox 1 mg per KG twice a day, status post loop implant. No complication. Okay for discharge on aspirin Sinus tachycardia with frequent atrial premature contractions, occasional PVCs, questionable episode of paroxysmal atrial tachycardia. So far as no signs of atrial fibrillation. Continue on Lovenox for now s/p COVID, received monoclonal antibody treatment, continues to c/o persistent nausea and loss of appetite, management per Dr. Barnes Bilateral pneumonia, on antibiotic, management per Dr. Barnes. Zenker diverticulum, attempt for surgical repair was done late in December 2018 in [facility], has failed attempt for surgery in the past, follows with GI at . History of esophageal paresis and GI bleed, unknown etiology Coronary artery disease, history of stent to the right coronary artery in 2009 using 3.512 mm Ion stent, last stress test done in December 2018 showing no ischemia or infarction with normal LV function. Continue to monitor Hypertension, continue to monitor blood pressure Hyperlipidemia, maintained on Lipitor Anemia of chronic disease followed with oncology History of liver injury secondary to trauma and bleed. History of chronic kidney disease, was on dialysis in November 2015, currently off dialysis. Diabetic nephropathy, she has been following with [facility] Mild bilateral carotid stenosis, ultrasound was done in November 2018. Continue to monitor JOHN was normal done in November 2018. Continue to monitor Diabetes mellitus, followed and managed by primary care physician History of breast cancer, had lumpectomy on the left and radiation, followed by primary care physician History of DVT at the left arm related to PICC line, in 2002. History of glaucoma History of renal artery stenosis, had a stent done in 2013, continue to monitor Hypothyroidism Status post recent right shoulder surgery with ABBI Beaver MD Nov 21, 2020 11:23
--- NOTE | 2020-11-21 11:26 | Progress Note ---
BARRETT CEVALLOS MED STUDENT 11/21/20 1126: Progress Note This is a 70 year old female who presented to the ED with weakness, nausea/vomiting, SOB, and dehydration post COVID in September. CT revealed COVID patchy infiltrates in lungs and she was admitted to inpatient on abtibiotics and IVF. PT and OT were consulted to facilitate recovery. Surgery was consulted and conservative management was recommended. Cardiology was consulted for tachycardia, CAD, and SOB for which she received potassium for hypokalemia and toprol for tachycardia with occasional PVCs. CAD was monitored. She is recovering well. AI ISAAC DO 11/22/20 0531: Supervisory-Addendum Brief Verification & Attestation Participated in pt care: history, MDM, physical Personally performed: exam, history, MDM, supervision of care Care discussed with: Medical Student Procedures: n/a Results interpretation: Verified all documentation Verification and Attestation of Medical Student E/M Service A medical student performed and documented this service in my presence. I reviewed and verified all information documented by the medical student and made modifications to such information, when appropriate. I personally performed the physical exam and medical decision making. Ai Isaac, Nov 22, 2020,05:31 BARRETT CEVALLOS MED STUDENT Nov 21, 2020 11:26 AI ISAAC DO Nov 22, 2020 05:31
--- NOTE | 2020-11-21 11:35 | Implantation of Loop Monitor ---
Implant of Loop Monitior IMPLANTATION OF LOOP MONITOR REPORT DATE OF PROCEDURE: 11/21/20 PREOP DIAGNOSIS: Cryptogenic stroke POSTOP DIAGNOSIS: Cryptogenic stroke PROCEDURE DETAILS: The patient is a 70 female with history of questionable TIA, had significant arrhythmia with sinus rhythm and frequent atrial premature contraction, multiple episode of short PAT's, no documented episode of atrial fibrillation, discussed the management plan recommended long-term monitoring with a loop implantation to avoid the use of oral anticoagulation at this point. Therefore implantable loop recorder was discussed and agreed with the patient. Informed consent was taken. All risks and complications were discussed at length. The patient was draped and prepped in the usual sterile fashion. Local anesthesia was lidocaine, which was given in the substernal area close to the 4th intercostal space. Loop monitor Whim with serial number [id number] was implanted according to the protocol. Steri-Strips were placed at the end of the procedure. There were no complications and the patient tolerated the procedure well. The device was interrogated with a voltage of. ANESTHESIA: Local anesthesia with lidocaine. COMPLICATIONS: None CONTRAST/FLUOROSCOPY: None CONCLUSION: Successful implantation of monitor with no complications ABBI GUTIERREZ MD Nov 21, 2020 11:35 am
--- NOTE | 2020-11-21 11:41 | NUR ---
THIS PATIENT IS GOING HOME AND ALREADY HAS HER DC PAPERS AND SHE DOES NOT WANT HER BREATHING TX AT THIS TIME; RT DID REMIND HER TO TAKER HER AEROBIKA AND HER I.S. HOME WITH HER.
[2020-11-21 12:00] VITALS: BP 129/69
--- NOTE | 2020-11-21 13:26 | NUR ---
DC'D PER WC TO HOME WITH STAFF. REFUSED TO TAKE IS HOME WITH HER.
== END 2020-11-21 13:28 | disposition home health service (06) | DRG 981 ==
LOC: EDUNIT# 09:30 → ER 09:32 → 4TH 12:10 → ICU 11-18 17:30 → 4TH 11-19 14:46
PROVIDERS: ADMIT Internal Medicine; ATTEND Internal Medicine
PROC: 0JH632Z Insertion of Monitoring Device into Chest Subcutaneous Tissue and Fascia, Percutaneous Approach (ICD-10-PCS; principal; 2020-11-21)
DX: N17.9 Acute kidney failure, unspecified (principal); J18.9 Pneumonia, unspecified organism; I63.9 Cerebral infarction, unspecified; J44.0 Chronic obstructive pulmonary disease with (acute) lower respiratory infection; N39.0 Urinary tract infection, site not specified; G81.91 Hemiplegia, unspecified affecting right dominant side; I25.10 Atherosclerotic heart disease of native coronary artery without angina pectoris; E78.00 Pure hypercholesterolemia, unspecified; E86.0 Dehydration; I10 Essential (primary) hypertension; G43.909 Migraine, unspecified, not intractable, without status migrainosus; E11.40 Type 2 diabetes mellitus with diabetic neuropathy, unspecified; K21.9 Gastro-esophageal reflux disease without esophagitis; M19.90 Unspecified osteoarthritis, unspecified site; G89.29 Other chronic pain; R29.810 Facial weakness; M54.9 Dorsalgia, unspecified; E03.9 Hypothyroidism, unspecified; K52.9 Noninfective gastroenteritis and colitis, unspecified; I25.2 Old myocardial infarction; R53.81 Other malaise; R09.02 Hypoxemia; B94.8 Sequelae of other specified infectious and parasitic diseases; K22.5 Diverticulum of esophagus, acquired; D63.8 Anemia in other chronic diseases classified elsewhere; N18.9 Chronic kidney disease, unspecified; E11.21 Type 2 diabetes mellitus with diabetic nephropathy; E11.22 Type 2 diabetes mellitus with diabetic chronic kidney disease; E87.6 Hypokalemia; E83.51 Hypocalcemia; D72.819 Decreased white blood cell count, unspecified; H40.9 Unspecified glaucoma; R00.0 Tachycardia, unspecified; R56.9 Unspecified convulsions; I48.91 Unspecified atrial fibrillation; Z88.0 Allergy status to penicillin; Z86.718 Personal history of other venous thrombosis and embolism; Z85.3 Personal history of malignant neoplasm of breast; Z90.12 Acquired absence of left breast and nipple; Z88.1 Allergy status to other antibiotic agents; Z88.8 Allergy status to other drugs, medicaments and biological substances; Z79.82 Long term (current) use of aspirin; Z95.5 Presence of coronary angioplasty implant and graft
CPT/HCPCS: 33285; 36415; 70450; 70496; 70498; 71045; 74022; 80048; 80053; 81000; 82150; 82274; 82962; 83605; 83690; 83735; 84100; 84145; 84484; 85025; 85652; 86141; 87015; 87045; 87046; 87088; 87324; 87449; 87899; 93005; 94640; 94664; 94760

== ENCOUNTER 2020-11-23 02:07 | Observation (INO) | payer MEDICARE ==
[~2020-11-23] VITALS: Ht 162.6 cm; Wt 77.2 kg
[~2020-11-23 02:07] MED LIST changes: +BUTA-235 PO; +BUTA1CAP42 PO; -BUTA1TAB9 PO; +CHOL200014 PO; +INSU100I29 SQ; +INSU100V5 SQ; +LEVE500T6 PO; -OXYC-471 PO; +OXYC1TAB11 PO; +PRED2.5T PO; +[UNRECOGNIZED DRUG - CODE] PO
[2020-11-23] MEDS ORDERED: FAMOTIDINE 20MG/2ML IV (PEPCID) IVP ONE (02:30)
[2020-11-23] MEDS ORDERED: LACTATED RINGERS 1,000 ML IV ONE (02:30)
[2020-11-23] MEDS ORDERED: ONDANSETRON 4 MG/2 ML (SDV) Z0FRAN IVP ONE (02:30)
[2020-11-23] MEDS ORDERED: LIDOCAINE 2% VISCOUS 15 ML UDC PO ONE (02:30)
[2020-11-23] MEDS ORDERED: ANTACID SUSP 30 ML UDC (MYLANTA) PO ONE (02:30)
[2020-11-23] MEDS ORDERED: NS IV 1000 ML 1,000 ML IV SCH (02:45)
[2020-11-23 03:07] LABS: BASOPHILS % (AUTO) 0 % (0-10); EOSINOPHILS # (AUTO) 0.2 10^3/uL (0.0-0.3); EOSINOPHILS % (AUTO) 2 % (0-10); HEMATOCRIT 34 % (35-52); LYMPHOCYTES # (AUTO) 1.6 10^3/uL (1.0-4.0); LYMPHOCYTES % (AUTO) 23 % (12-44); MEAN CORPUSCULAR HEMOGLOBIN 29 pg (25-34); MEAN CORPUSCULAR HGB CONC 33 g/dL (32-36); MEAN CORPUSCULAR VOLUME 89 fL (80-99); MEAN PLATELET VOLUME 9.8 fL (9.0-12.2); MONOCYTES # (AUTO) 0.8 10^3/uL (0.0-1.0); MONOCYTES % (AUTO) 11 % (0-12); NEUTROPHILS # (AUTO) 4.3 10^3/uL (1.8-7.8); NEUTROPHILS % (AUTO) 62 % (42-75); PLATELET COUNT 396 10^3/uL (130-400); WHITE BLOOD COUNT 6.9 10^3/uL (4.3-11.0)
[2020-11-23 03:09] LABS: CHLORIDE 109 MMOL/L (98-107); POTASSIUM 3.7 MMOL/L (3.6-5.0); SODIUM 140 MMOL/L (135-145)
[2020-11-23 03:10] LABS: CALCIUM 8.2 MG/DL (8.5-10.1)
[2020-11-23 03:11] LABS: GLUCOSE 143 MG/DL (70-105)
[2020-11-23 03:12] LABS: TOTAL PROTEIN 6.1 GM/DL (6.4-8.2)
[2020-11-23 03:13] LABS: BILIRUBIN,TOTAL 0.2 MG/DL (0.1-1.0); CARBON DIOXIDE 20 MMOL/L (21-32)
[2020-11-23 03:15] LABS: ALKALINE PHOSPHATASE 165 U/L (40-136); CREATININE SERUM 0.87 MG/DL (0.60-1.30); GFR ESTIMATED > 60
[2020-11-23] MEDS ORDERED: PROMETHAZINE INJ 25 MG/ML (PHENERGAN) AMP IVP ONE (03:15)
[2020-11-23 03:16] LABS: BUN/CREATININE RATIO 10
[2020-11-23 03:18] LABS: ALANINE AMINOTRANSFERASE 15 U/L (0-55)
[2020-11-23 03:19] LABS: LIPASE 277 U/L (8-78)
[2020-11-23] MEDS ORDERED: fentaNYL INJECTION 100 MCG/2 ML AMP IVP ONE (04:15)
[2020-11-23] MEDS ORDERED: NS 100 ML (IVPB) BAG IV ONE (04:15)
[2020-11-23] MEDS ORDERED: IOHEXOL 350 MG/ML 100 ML (OMNIPAQUE 350) VIAL IV ONE (04:15)
[2020-11-23] MEDS ORDERED: HOLD METFORMIN - RECEIVED CONTRAST 20 ML VIAL IV SCH (04:15)
[2020-11-23] MEDS ORDERED: CATHETER FLUSH 10 ML SYR IV PRN (04:15)
--- NOTE | 2020-11-23 04:31 | ED Abdominal Pain ---
General Chief Complaint: Abdominal/GI Problems Stated Complaint: ABD PAIN Nursing Triage Note: TO ED [facility]IA [facility] WITH C/O UPPER ABD PAIN THAT RADIATES TO BACK. DC'D FROM THIS HOSPITAL 11/21. HX COVID 19 11/06 AND OUT OF QUARATINE WINDOW AT THIS TIME. Sepsis Screen: No Definite Risk Source of Information: Patient, EMS, Old Records Exam Limitations: No Limitations History of Present Illness Date Seen by Provider: Nov 23, 2020 Time Seen by Provider: 02:10 Initial Comments This 70-year-old woman presents to the emergency room with primary complaints of nausea, vomiting, and upper abdominal pain. She was diagnosed with COVID-19 on November 06. She was subsequently admitted to the hospital on November 14 for weakness. She was discharged a couple of days ago. She denies any fever or respiratory symptoms at this time. Allergies and Home Medications Allergies Coded Allergies: clopidogrel (Verified Allergy, Severe, BLOOD CLOTS, 11/27/18) Penicillins (Verified Allergy, Mild, RASH, 11/27/18) carisoprodol (Verified Allergy, Mild, RASH, 11/27/18) cephalexin (Verified Allergy, Mild, RASH, 11/27/18) ketorolac (Verified Allergy, Mild, RASH, 11/27/18) prochlorperazine (Verified Allergy, Mild, RASH, 11/27/18) Carbamates (Verified Allergy, Unknown, Rash, 05/28/19) Home Medications Amlodipine Besylate 10 Mg Tablet, 10 MG PO DAILY, (Reported) Aspirin 81 Mg Tablet.dr, 81 MG PO DAILY Prescribed by: OLIVE ISAAC on 11/21/20 1010 Atorvastatin Calcium 40 Mg Tablet, 40 MG PO HS, (Reported) Cholecalciferol (Vitamin D3) 50 Mcg Tablet, 50 MCG PO DAILY, (Reported) Codeine/Butalbital/ASA/Caffein 1 Each Capsule, 1 EACH PO DAILY PRN for MIGRAINE, (Reported) Duloxetine HCl 30 Mg Capsule.dr, 30 MG PO DAILY, (Reported) TAKE ALONG WITH 60MG CAP FOR A TOTAL DAILY DOSE OF 90MG Duloxetine HCl 60 Mg Capsule.dr, 60 MG PO DAILY, (Reported) TAKES ALONG WITH 30MG CAPSULE FOR A TOTAL DAILY DOSE OF 90MG Folic Acid 1 Mg Tablet, 1 MG PO DAILY, (Reported) Furosemide 40 Mg Tablet, 40 MG PO DAILY PRN for EDEMA Prescribed by: OLIVE ISAAC on 11/21/20 1010 Hydroxychloroquine Sulfate 200 Mg Tablet, 200 MG PO BID, (Reported) Insulin Detemir 100 Unit/1 Ml Insuln.pen, 8 UNIT SQ DAILY PRN for BLOOD SUGAR OVER 140, (Reported) Levetiracetam 500 Mg Tablet, 500 MG PO BID Prescribed by: OLIVE ISAAC on 11/21/20 1010 Metoprolol Succinate 100 Mg Tab.er.24h, 100 MG PO DAILY, (Reported) Pantoprazole Sodium 40 Mg Tablet.dr, 40 MG PO DAILY, (Reported) Prednisone 2.5 Mg Tablet, 2.5 MG PO DAILY, (Reported) Topiramate 50 Mg Tablet, 75 MG PO BID, (Reported) TAKE 1 & 1/2 OF 50MG TAB Patient Home Medication List Home Medication List Reviewed: Yes Review of Systems Review of Systems Constitutional: no symptoms reported EENTM: No Symptoms Reported Respiratory: No Symptoms Reported Cardiovascular: No Symptoms Reported Gastrointestinal: See HPI Genitourinary: No Symptoms Reported Musculoskeletal: no symptoms reported Skin: no symptoms reported Psychiatric/Neurological: No Symptoms Reported Endocrine: No Symptoms Reported Hematologic/Lymphatic: No Symptoms Reported Past Gsnwjni-Qvzuhi-Klitml Hx Past Med/Social Hx: Reviewed Nursing Past Med/Soc Hx Patient Social History Alcohol Use: Denies Use 2nd Hand Smoke Exposure: No Recent Infectious Disease Expo: No Recent Hopitalizations: Yes Immunizations Up To Date Tetanus Booster (TDap): Unknown Date of Pneumonia Vaccine: Jul 29, 2017 Date of Influenza Vaccine: Jun 30, 2020 Seasonal Allergies Seasonal Allergies: No Past Medical History Surgeries: Yes (R CTR, espohageal ligation x2, Hernia, L RCR, L TKR, laparotomy, MRSA infec) Abdominal, Breast, Cardiac, Coronary Stent, Hysterectomy, Joint Replacement, Oophorectomy, Orthopedic, Thyroidectomy Respiratory: Yes (COVID-08 November 2020) Currently Using CPAP: No Currently Using BIPAP: No Cardiac: Yes (HX HEART CATH-STENT) Coronary Artery Disease, Heart Attack, High Cholesterol, Hypertension Neurological: Yes Headaches /Migraines, Neuropathy 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, Menopausal Sexually Transmitted Disease: No HIV/AIDS: No Genitourinary: Yes (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, STAGE 2-kidneY DISEASE ) Bladder Infection, Renal Failure Gastrointestinal: Yes (HX GI BLEED, zenkers syndrome-chokes easily, hx hep A) Abdominal Hernia, Gastroesophageal Reflux, Hepatitis Musculoskeletal: Yes (OSTEOARTHRITIS, BULGING DISCS) Arthritis, Chronic Back Pain Endocrine: Yes (partial thyroidectomy) Hypothyroidsim, Diabetes, Non-Insulin dep HEENT: Yes (GLASSES, UPPER DENTURES) Loss of Vision: Bilateral Cancer: Yes Breast Did You Recieve Any Treatments: Yes What Type of Treatment Did You: Radiation, Surgical Intervention Psychosocial: No Integumentary: No Blood Disorders: Yes (IRON DEFFICIENCY ANEMIA-GETS IRON INFUSIONS) Adverse Reaction/Blood Tranf: No (HAS HAD BLOOD WITH NO REACTION) Family Medical History Hypertension G8 BROTHER Not obtainable due to adoption 19 FATHER Heart Disease, Hypertension ADDITIONAL PAST SURGICAL HISTORY -ZENKER'S DIVERTICULUM SURGERY X 2 -ABDOMINAL HERNIA REPAIR WITH MESH -MESH REMOVAL AND LY8IS OF ADHESIONS -HYST/BSO -LEFT BREAST LUMPECTOMY -CARDIAC CATH WITH STENT X 1 2005 -PORT LEFT CHEST -RIGHT SHOULDER REPLACEMENT Physical Exam Vital Signs Vital Signs - First Documented 11/23/20 02:09 Temp 36.6 Pulse 107 Resp 16 B/P (MAP) 158/92 (114) O2 Delivery Room Air Capillary Refill : Less Than 3 Seconds Height/Weight/BMI Height: 5'4.00" Weight: 216lbs. 4.2oz. 98.302589hi; BMI Method:Stated General Appearance: WD/WN, mild distress HEENT: normal ENT inspection, other (Oropharynx somewhat dry) Neck: normal inspection Respiratory: lungs clear, normal breath sounds, no respiratory distress Cardiovascular: no edema, no murmur, tachycardia Gastrointestinal: normal bowel sounds, soft; No distended; tenderness (Epigastrium and left upper quadrant) Extremities: normal inspection, no pedal edema Neurologic/Psychiatric: c developer II-XII nml as tested, no motor/sensory deficits, alert, normal mood/affect, oriented x 3 Skin: normal color, warm/dry Progress/Results/Core Measures Results/Orders Lab Results Laboratory Tests Test 11/23/20 02:55 Range/Units White Blood Count 6.9 4.3-11.0 10^3/uL Red Blood Count 3.78 L 3.80-5.11 10^6/uL Hemoglobin 11.0 L 11.5-16.0 g/dL Hematocrit 34 L 35-52 % Mean Corpuscular Volume 89 80-99 fL Mean Corpuscular Hemoglobin 29 25-34 pg Mean Corpuscular Hemoglobin Concent 33 32-36 g/dL Red Cell Distribution Width 12.9 10.0-14.5 % Platelet Count 396 130-400 10^3/uL Mean Platelet Volume 9.8 9.0-12.2 fL Immature Granulocyte % (Auto) 1 % Neutrophils (%) (Auto) 62 42-75 % Lymphocytes (%) (Auto) 23 12-44 % Monocytes (%) (Auto) 11 0-12 % Eosinophils (%) (Auto) 2 0-10 % Basophils (%) (Auto) 0 0-10 % Neutrophils # (Auto) 4.3 1.8-7.8 10^3/uL Lymphocytes # (Auto) 1.6 1.0-4.0 10^3/uL Monocytes # (Auto) 0.8 0.0-1.0 10^3/uL Eosinophils # (Auto) 0.2 0.0-0.3 10^3/uL Basophils # (Auto) 0.0 0.0-0.1 10^3/uL Immature Granulocyte # (Auto) 0.1 0.0-0.1 10^3/uL Sodium Level 140 135-145 MMOL/L Potassium Level 3.7 3.6-5.0 MMOL/L Chloride Level 109 H 98-107 MMOL/L Carbon Dioxide Level 20 L 21-32 MMOL/L Anion Gap 11 5-14 MMOL/L Blood Urea Nitrogen 9 7-18 MG/DL Creatinine 0.87 0.60-1.30 MG/DL Estimat Glomerular Filtration Rate > 60 BUN/Creatinine Ratio 10 Glucose Level 143 H 70-105 MG/DL Calcium Level 8.2 L 8.5-10.1 MG/DL Corrected Calcium 9.0 8.5-10.1 MG/DL Total Bilirubin 0.2 0.1-1.0 MG/DL Aspartate Amino Transf (AST/SGOT) 25 5-34 U/L Alanine Aminotransferase (ALT/SGPT) 15 0-55 U/L Alkaline Phosphatase 165 H 40-136 U/L C-Reactive Protein High Sensitivity 2.05 H 0.00-0.50 MG/DL Total Protein 6.1 L 6.4-8.2 GM/DL Albumin 3.0 L 3.2-4.5 GM/DL Lipase 277 H 8-78 U/L My Orders Orders - ELODIA SILVERMAN MD Cbc With Automated Diff (11/23/20 02:16) Comprehensive Metabolic Panel (11/23/20 02:16) Lipase (11/23/20 02:16) Ed Iv/Invasive Line Start (11/23/20 02:16) Famotidine Injection (Pepcid Injection) (11/23/20 02:30) Ondansetron Injection (Zofran Injectio (11/23/20 02:30) Lidocaine 2% Viscous 15 Ml (Xylocaine Vi (11/23/20 02:30) Antacid Suspension (Mylanta Suspension (11/23/20 02:30) Lactated Ringers (Lr 1000 Ml Iv Solution (11/23/20 02:30) Ns Iv 1000 Ml (Sodium Chloride 0.9%) (11/23/20 02:45) Promethazine Injection (Phenergan Injec (11/23/20 03:15) Ct Abdomen/Pelvis W (11/23/20 03:35) Hs C Reactive Protein (11/23/20 03:48) Fentanyl Injection (Sublimaze Injection (11/23/20 04:15) Iohexol Injection (Omnipaque 350 Mg/Ml 1 (11/23/20 04:15) Received Contrast (Hold Metformin- Contr (11/23/20 04:15) Sodium Chloride Flush (Catheter Flush Sy (11/23/20 04:15) Ns (Ivpb) (Sodium Chloride 0.9% Ivpb Bag (11/23/20 04:15) Medications Given in ED Current Medications Medications Dose Ordered Sig/Ana María Route Start Time Stop Time Status Last Admin Dose Admin Al Hydrox/Mg Hydrox/Simethicone 30 ml ONCE ONCE PO 11/23/20 02:30 11/23/20 02:31 DC 11/23/20 02:45 30 ML Famotidine 20 mg ONCE ONCE IVP 11/23/20 02:30 11/23/20 02:31 DC 11/23/20 02:45 20 MG Fentanyl Citrate 50 mcg ONCE ONCE IVP 11/23/20 04:15 11/23/20 04:16 DC 11/23/20 04:17 50 MCG Iohexol 100 ml ONCE ONCE IV 11/23/20 04:15 11/23/20 04:16 DC 11/23/20 04:17 91 ML Lidocaine HCl 15 ml ONCE ONCE PO 11/23/20 02:30 11/23/20 02:31 DC 11/23/20 02:45 15 ML Ondansetron HCl 8 mg ONCE ONCE IVP 11/23/20 02:30 11/23/20 02:31 DC 11/23/20 02:45 8 MG Promethazine HCl 12.5 mg ONCE ONCE IVP 11/23/20 03:15 11/23/20 03:17 DC 11/23/20 03:11 12.5 MG Sodium Chloride 10 ml NEEDED PRN IV 11/23/20 04:15 11/23/20 04:17 10 ML Sodium Chloride 100 ml ONCE ONCE IV 11/23/20 04:15 11/23/20 04:16 DC 11/23/20 04:17 80 ML Vital Signs/I&O 11/23/20 02:09 Temp 36.6 Pulse 107 Resp 16 B/P (MAP) 158/92 (114) O2 Delivery Room Air Blood Pressure Mean: 114 Progress Progress Note #1: Time: 04:37 Progress Note Patient was treated with Zofran and Pepcid. This was followed by GI cocktail. GI cocktail did not relieve her pain. In fact, it exacerbated symptoms. She is further treated with Phenergan. She was hydrated with a liter of IV normal saline. Nausea improved but pain persisted. Fentanyl was given for treatment of pain. She was found to have a mildly elevated lipase. CT of the abdomen and pelvis has been obtained and interpretation is pending. Progress Note #2: Time: 05:[address] scan findings of residual pneumonia consistent with her recent COVID-19 diagnosis. There were also renal lesions 1 of which appears solid in the left upper renal pole. This is suspicious for a solid lesion with differential that could include renal cell carcinoma. Further imaging is recommended. No other acute abnormalities were identified. Diagnostic Imaging Diagonstic Imaging: CT Plain Films/CT/US/NM/MRI: abdomen, pelvis Comments CT abdomen and pelvis viewed by me and report reviewed. There were solid renal lesions 1 of which is concerning for possible renal cell carcinoma on the upper pole of the left kidney. Further imaging is recommended. Gallbladder appeared distended with possible stone near the neck. This was not addressed by the radiologist. CT will be over read by [facility] radiologist later in the morning. Departure Communication (Admissions) Time/Spoke to Admitting Phy: 04:55 Dr. Coley Impression Primary Impression: Pancreatitis Qualified Codes: K85.90 - Acute pancreatitis without necrosis or infection, unspecified Additional Impressions: Nausea and vomiting Qualified Codes: R11.2 - Nausea with vomiting, unspecified Upper abdominal pain Abnormal CT scan Disposition: ADMITTED INPATIENT Condition: Improved Admissions Decision to Admit Reason: Admit from ER (General) Decision to Admit/Date: Nov 23, 2020 Time/Decision to Admit Time: 04:45 Departure-Patient Inst. Referrals: JAVIER MOSS (PCP/Family) Primary Care Physician ELODIA SILVERMAN MD Nov 23, 2020 04:31
[2020-11-23 06:14] VITALS: BP 176/82
[2020-11-23] MEDS: LACTATED RINGERS 1,000 ML IV SCH ×3 (06:18→22:18)
--- NOTE | 2020-11-23 06:42 | Diagnostic Imaging Report ---
PROCEDURE: CT abdomen and pelvis with contrast. TECHNIQUE: Multiple contiguous axial images were obtained through the abdomen and pelvis after administration of intravenous contrast. Auto Exposure Controls were utilized during the CT exam to meet ALARA standards for radiation dose reduction. All CT scans use one or more of the following dose optimizing techniques: automated exposure control, MA and/or KvP adjustment based on patient size and exam type or iterative reconstruction. INDICATION: Abdominal pain radiating to back. The history of COVID 19. Breast cancer. FINDINGS: There is good enhancement of the aorta and abdominal vessels. Aorta is atherosclerotic without aneurysm. The liver is normal. Gallbladder and bile ducts are normal. Pancreas and spleen are normal. The adrenal glands are normal. Kidneys show symmetrical enhancement. There are multiple cysts. There is an enhancing solid mass off the cortex of the left kidney laterally measuring 1.5 cm. Bowel gas pattern appears normal. Uterus is absent. No pelvic masses. Bladder is normal. No blastic or lytic changes are demonstrated. No intraabdominal adenopathy of pathologic size. There are bilateral lower lobe alveolar infiltrates present. IMPRESSION: 1. Solid 1.5 cm mass left kidney. This should be considered likely for renal cell carcinoma till proven otherwise. Would consider dedicated CT or MRI with contrast for the kidneys. 2. Atherosclerotic changes of the aorta without evidence of aneurysm or dissection. 3. Bilateral lower lobe pneumonia. Dictated by: Dictated on workstation # [id number]
[2020-11-23 08:00] VITALS: BP 151/72
[2020-11-23] MEDS: ONDANSETRON 4 MG/2 ML (SDV) Z0FRAN IVP PRN ×4 (08:08→23:43)
[2020-11-23] MEDS: fentaNYL INJECTION 100 MCG/2 ML AMP IVP PRN ×5 (08:08→23:44)
--- NOTE | 2020-11-23 08:16 | History & Physical ---
YEHUDA BINGHAM MED STUDENT 11/23/20 0816: History of Present Illness History of Present Illness Reason for visit/HPI Ekta is a 70 yo female that presented to the ER last night with the chief complaint of left upper quadrant abdominal pain that radiated straight through to her back, nausea, and vomiting. She was experiencing SOB and coughing that was waxing and waning for 2 hours before she came in. Pt describes that the pain was so intense that it would take her breath away. Nothing seemed to make the pain worse but she also couldn't find anything that made it better. She tried 7 up, advil, louise seltzer, and getting up and moving. Pt stated that she had a perforated ulcer 6 years ago and the feeling was similar. Currently her pain is under control and denies SOB or dyspnea.On November 06 she was diagnosed with COVID-19 and was admitting to the hospital on November 14 for weakness. Date of Admission Nov 23, 2020 at 04:59 Date Seen by a Provider: Nov 23, 2020 Time Seen by a Provider: 07:30 I consulted on this patient on 11/23/20 08:09 Attending Physician Dasia Franklin MD Admitting Physician Gustavo Moulton Consult Allergies and Home Medications Allergies Coded Allergies: clopidogrel (Verified Allergy, Severe, BLOOD CLOTS, 11/27/18) Penicillins (Verified Allergy, Mild, RASH, 11/27/18) carisoprodol (Verified Allergy, Mild, RASH, 11/27/18) cephalexin (Verified Allergy, Mild, RASH, 11/27/18) ketorolac (Verified Allergy, Mild, RASH, 11/27/18) prochlorperazine (Verified Allergy, Mild, RASH, 11/27/18) Carbamates (Verified Allergy, Unknown, Rash, 05/28/19) Home Medications Amlodipine Besylate 10 Mg Tablet, 10 MG PO DAILY, (Reported) Aspirin 81 Mg Tablet.dr, 81 MG PO DAILY Prescribed by: OLIVE ISAAC on 11/21/20 1010 Atorvastatin Calcium 40 Mg Tablet, 40 MG PO HS, (Reported) Cholecalciferol (Vitamin D3) 50 Mcg Tablet, 50 MCG PO DAILY, (Reported) Codeine/Butalbital/ASA/Caffein 1 Each Capsule, 1 EACH PO DAILY PRN for MIGRAINE, (Reported) Duloxetine HCl 30 Mg Capsule.dr, 30 MG PO DAILY, (Reported) TAKE ALONG WITH 60MG CAP FOR A TOTAL DAILY DOSE OF 90MG Duloxetine HCl 60 Mg Capsule.dr, 60 MG PO DAILY, (Reported) TAKES ALONG WITH 30MG CAPSULE FOR A TOTAL DAILY DOSE OF 90MG Folic Acid 1 Mg Tablet, 1 MG PO DAILY, (Reported) Furosemide 40 Mg Tablet, 40 MG PO DAILY PRN for EDEMA Prescribed by: OLIVE ISAAC on 11/21/20 1010 Hydroxychloroquine Sulfate 200 Mg Tablet, 200 MG PO BID, (Reported) Insulin Detemir 100 Unit/1 Ml Insuln.pen, 8 UNIT SQ DAILY PRN for BLOOD SUGAR OVER 140, (Reported) Levetiracetam 500 Mg Tablet, 500 MG PO BID Prescribed by: OLIVE ISAAC on 11/21/20 1010 Metoprolol Succinate 100 Mg Tab.er.24h, 100 MG PO DAILY, (Reported) Pantoprazole Sodium 40 Mg Tablet.dr, 40 MG PO DAILY, (Reported) Topiramate 50 Mg Tablet, 75 MG PO BID, (Reported) TAKE 1 & 1/2 OF 50MG TAB Past Tqvgiqz-Vbngcr-Lzrikw Hx Patient Social History Smoking Status: Never a Smoker 2nd Hand Smoke Exposure: No Recent Hopitalizations: Yes (covid-19 on Nov 16) Have you traveled recently?: No Alcohol Use?: No Pt feels they are or have been: No Immunizations Up To Date Tetanus Booster (TDap): Unknown Date of Pneumonia Vaccine: Jul 29, 2017 Date of Influenza Vaccine: Jun 30, 2020 Seasonal Allergies Seasonal Allergies: No Surgeries Yes (R CTR, espohageal ligation x2, Hernia, L RCR, L TKR, laparotomy, MRSA infec) Abdominal, Breast, Cardiac, Coronary Stent, Hysterectomy, Joint Replacement, Oophorectomy, Orthopedic, Thyroidectomy Respiratory Yes (COVID-08 November 2020) COPD Currently Using CPAP: No Currently Using BIPAP: No Cardiovascular Yes (HX HEART CATH-STENT) Coronary Artery Disease, Heart Attack, High Cholesterol, Hypertension Neurological Yes Headaches /Migraines, Neuropathy Reproductive System Sexually Transmitted Disease: No HIV/AIDS: No NURSING STUDENT History: Hysterectomy, Menopausal Genitourinary Yes (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, STAGE 2-kidneY DISEASE ) Bladder Infection, Renal Failure Gastrointestinal Yes (HX GI BLEED, zenkers syndrome-chokes easily, hx hep A) Abdominal Hernia, Gastroesophageal Reflux, Hepatitis Musculoskeletal Yes (OSTEOARTHRITIS, BULGING DISCS) Arthritis, Chronic Back Pain Endocrine History of Endocrine Disorders: Yes (partial thyroidectomy) Endocrine Disorders: Hypothyroidsim, Diabetes, Non-Insulin dep HEENT History of HEENT Disorders: Yes (GLASSES, UPPER DENTURES) Loss of Vision: Bilateral Cancer Yes Breast Did You Recieve Any Treatments: Yes Type of Treatment: Radiation, Surgical Intervention Psychosocial History of Psychiatric Problem: No Integumentary History of Skin or Integumenta: No Blood Transfusions History of Blood Disorders: Yes (IRON DEFFICIENCY ANEMIA-GETS IRON INFUSIONS) Adverse Reaction to a Blood Tr: No (HAS HAD BLOOD WITH NO REACTION) Family Medical History Significant Family History: Heart Disease, Hypertension Other Significan Family Hx: ADDITIONAL PAST SURGICAL HISTORY -ZENKER'S DIVERTICULUM SURGERY X 2 -ABDOMINAL HERNIA REPAIR WITH MESH -MESH REMOVAL AND LY8IS OF ADHESIONS -HYST/BSO -LEFT BREAST LUMPECTOMY -CARDIAC CATH WITH STENT X 1 2004 -PORT LEFT CHEST -RIGHT SHOULDER REPLACEMENT Family Hx: Hypertension G8 BROTHER Not obtainable due to adoption 19 FATHER Review of Systems Constitutional: No chills, No dizziness, No fever; malaise, weakness, weight loss (20 pounds over 2 monthsd) EENTM: mouth pain; No hearing loss, No eye pain Respiratory: cough, dyspnea on exertion; No short of breath; other (fine crackle bilateral lower lobes) Cardiovascular: No edema; Hx of Intervention Gastrointestinal: LUQ, abdominal pain; No constipation, No diarrhea, No heartburn; nausea, vomiting : No Skin: change in color, dryness; No rash Psychiatric/Neurological: Depressed Physical Exam Vital Signs Vital Signs - First Documented 11/23/20 11/23/20 02:09 05:16 Temp 36.6 Pulse 107 Resp 16 B/P (MAP) 158/92 (114) Pulse Ox 95 O2 Delivery Room Air Capillary Refill : Less Than 3 Seconds Height, Weight, BMI Height: 5'4.00" Weight: 216lbs. 4.2oz. [id number]; 29.19 BMI Method:Stated General Appearance: Chronically ill, Mild Distress HEENT: PERRL/EOMI Neck: Normal Inspection, Non Tender, Supple Respiratory: Chest Non Tender, No Accessory Muscle Use, No Respiratory Distress, Crackles (bilateral lower lobes) Cardiovascular: Regular Rate, Rhythm, No Edema, No Gallop, No Murmur, Normal Peripheral Pulses, Other (recently implanted continuous heart monitor ) Gastrointestinal: Normal Bowel Sounds, No Organomegaly, No Pulsatile Mass, Soft, Tenderness (LUQ to palpation) Extremity: Normal Capillary Refill, Normal Inspection, Normal Range of Motion, Non Tender, No Calf Tenderness, No Pedal Edema Neurologic/Psychiatric: Alert, Oriented x3, Normal Mood/Affect Skin: Warm/Dry, Pallor Lymphatic: No Adenopathy Assessment/Plan Assessment and Plan Assessment: bilateral lower lobe pneumonia kidney mass- 1.5cm LUQ abdominal pain Plan: mass biopsy pain control as needed breathing treatment DASIA FRANKLIN MD 11/23/20 1453: History of Present Illness History of Present Illness Date Seen by a Provider: Nov 23, 2020 Time Seen by a Provider: 10:20 Allergies and Home Medications Allergies Coded Allergies: clopidogrel (Verified Allergy, Severe, BLOOD CLOTS, 11/27/18) Penicillins (Verified Allergy, Mild, RASH, 11/27/18) carisoprodol (Verified Allergy, Mild, RASH, 11/27/18) cephalexin (Verified Allergy, Mild, RASH, 11/27/18) ketorolac (Verified Allergy, Mild, RASH, 11/27/18) prochlorperazine (Verified Allergy, Mild, RASH, 11/27/18) Carbamates (Verified Allergy, Unknown, Rash, 05/28/19) Home Medications Amlodipine Besylate 10 Mg Tablet, 10 MG PO DAILY, (Reported) Aspirin 81 Mg Tablet.dr, 81 MG PO DAILY Prescribed by: OLIVE ISAAC on 11/21/20 1010 Atorvastatin Calcium 40 Mg Tablet, 40 MG PO HS, (Reported) Cholecalciferol (Vitamin D3) 50 Mcg Tablet, 50 MCG PO DAILY, (Reported) Codeine/Butalbital/ASA/Caffein 1 Each Capsule, 1 EACH PO DAILY PRN for MIGRAINE, (Reported) Duloxetine HCl 30 Mg Capsule.dr, 30 MG PO DAILY, (Reported) TAKE ALONG WITH 60MG CAP FOR A TOTAL DAILY DOSE OF 90MG Duloxetine HCl 60 Mg Capsule.dr, 60 MG PO DAILY, (Reported) TAKES ALONG WITH 30MG CAPSULE FOR A TOTAL DAILY DOSE OF 90MG Folic Acid 1 Mg Tablet, 1 MG PO DAILY, (Reported) Furosemide 40 Mg Tablet, 40 MG PO DAILY PRN for EDEMA Prescribed by: OLIVE ISAAC on 11/21/20 1010 Hydroxychloroquine Sulfate 200 Mg Tablet, 200 MG PO BID, (Reported) Insulin Detemir 100 Unit/1 Ml Insuln.pen, 8 UNIT SQ DAILY PRN for BLOOD SUGAR OVER 140, (Reported) Levetiracetam 500 Mg Tablet, 500 MG PO BID Prescribed by: OLIVE ISAAC on 11/21/20 1010 Metoprolol Succinate 100 Mg Tab.er.24h, 100 MG PO DAILY, (Reported) Pantoprazole Sodium 40 Mg Tablet.dr, 40 MG PO DAILY, (Reported) Topiramate 50 Mg Tablet, 75 MG PO BID, (Reported) TAKE 1 & 1/2 OF 50MG TAB Patient Home Medication List Home Medication List Reviewed: Yes Past Qpdvpuy-Xjmeuh-Rxvpax Hx Family Medical History Family Hx: Hypertension G8 BROTHER Not obtainable due to adoption 19 FATHER Physical Exam General Appearance: No Apparent Distress Respiratory: Lungs Clear, Normal Breath Sounds Cardiovascular: Regular Rate, Rhythm, No Murmur Gastrointestinal: Normal Bowel Sounds, Soft, Tenderness (epigastric) Extremity: No Pedal Edema Neurologic/Psychiatric: Alert, Normal Mood/Affect Skin: Normal Color, Warm/Dry Assessment/Plan Assessment and Plan Problems: (1) Upper abdominal pain Status: Acute Assessment & Plan: Severe with relatively acute onset, possible pancreatitis with mildly elevated lipase. CT without abnormal pancreas appearance. CLD, pain medications, IVF. Consider ulcer disease given history. IV famotidine started on admit, resume home PPI. Check stool occult blood. (2) Pancreatitis Status: Acute Qualifiers: Qualified Codes: K85.90 - Acute pancreatitis without necrosis or infection, unspecified Assessment & Plan: Possible with mildly elevated lipase. If symptoms persistent, consider RUQ ultrasound, no stones seen on CT. Check triglycerides. Pt denies alcohol use. (3) Left renal mass Status: Acute Assessment & Plan: Noted incidentally on abdominal imaging, will discuss best f/u imaging with Radiology for next step. (4) Stage 3 chronic kidney disease Status: Chronic Qualifiers: Qualified Codes: N18.31 - Chronic kidney disease, stage 3a Assessment & Plan: Per pt reports, stage 3 CKD, currently with higher GFR. Monitor. (5) Chronic migraine Status: Chronic Assessment & Plan: Resume home preventive medication. 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 Will hold for now and use sliding scale as needed. (10) DVT prophylaxis Status: Acute Assessment & Plan: Enoxaparin Admission Diagnosis Admission Status: Observation Supervisory-Addendum Brief Verification & Attestation Participated in pt care: history, MDM, physical Personally performed: exam, history, MDM Care discussed with: Medical Student Procedures: n/a I personally saw and examined patient today, see my exam and problem list for my assessment and plan. Agree with student documentation of history. YEHUDA BINGHAM MED STUDENT Nov 23, 2020 08:16 DASIA FRANKLIN MD Nov 23, 2020 14:53
[2020-11-23] MEDS: FAMOTIDINE 20MG/2ML IV (PEPCID) IVP SCH ×2 (10:24→19:50)
[2020-11-23] MEDS: PROMETHAZINE INJ 25 MG/ML (PHENERGAN) AMP IVP PRN (11:36)
[2020-11-23 12:00] VITALS: BP_SYST 151; BP_SYST 158; BP_DIAS 72; BP_DIAS 92
[2020-11-23] MEDS ORDERED: RT-ALBUTEROL SULF 2.5 MG/3 ML PRE-MIX VIAL INH PRN (13:00)
[2020-11-23] MEDS: RT-ALBUTEROL SULF 2.5 MG/3 ML PRE-MIX VIAL INH SCH ×2 (14:18→19:09)
[2020-11-23] MEDS: ENOXAPARIN 40 MG/0.4 ML (LOVENOX) SYR SQ SCH (15:10)
[2020-11-23 16:00] VITALS: BP 160/74
[2020-11-23] MEDS: LEVETIRACETAM 500 MG (KEPPRA) TAB PO SCH (19:57)
[2020-11-23] MEDS: guaiFENesin (MUCINEX) 600 MG TAB PO SCH (19:57)
[2020-11-23] MEDS: HYDROXYCHLOROQUINE 200 MG (PLAQUENIL) TAB PO SCH (19:57)
[2020-11-23] MEDS: toPIRamate 25 MG (TOPAMAX) TAB PO SCH (19:57)
[2020-11-23 20:00] VITALS: BP 147/68
[2020-11-23] MEDS ORDERED: amLODIPine 10 MG (NORVASC) TAB ONE (20:03)
[2020-11-23] MEDS ORDERED: meTOprolol SUCCINATE 100 MG (TOPROL XL) TAB PO ONE (20:04)
[2020-11-23] MEDS: amLODIPine 10 MG (NORVASC) TAB PO SCH (20:11)
[2020-11-23] MEDS: meTOprolol SUCCINATE 100 MG (TOPROL XL) TAB PO SCH (20:11)
[2020-11-23] MEDS ORDERED: TOPIRAMATE 75 MG PO SCH (21:00)
[2020-11-23 23:50] VITALS: BP 124/77
[2020-11-24] MEDS: RT-ALBUTEROL SULF 2.5 MG/3 ML PRE-MIX VIAL INH SCH ×4 (01:26→19:42)
[2020-11-24 03:49] VITALS: BP_SYST 134; BP_SYST 162; BP_DIAS 68; BP_DIAS 71
[2020-11-24] MEDS: fentaNYL INJECTION 100 MCG/2 ML AMP IVP PRN ×2 (03:56→07:40)
[2020-11-24] MEDS: ONDANSETRON 4 MG/2 ML (SDV) Z0FRAN IVP PRN (03:56)
[2020-11-24] MEDS: LACTATED RINGERS 1,000 ML IV SCH ×2 (05:21→18:00)
[2020-11-24 05:43] LABS: HEMOGLOBIN 9.4 g/dL (11.5-16.0); MEAN PLATELET VOLUME 9.5 fL (9.0-12.2); WHITE BLOOD COUNT 5.3 10^3/uL (4.3-11.0)
[2020-11-24 06:05] LABS: ALANINE AMINOTRANSFERASE 13 U/L (0-55); ALBUMIN 2.6 GM/DL (3.2-4.5); ALKALINE PHOSPHATASE 141 U/L (40-136); BILIRUBIN,TOTAL 0.3 MG/DL (0.1-1.0); BUN/CREATININE RATIO 5; CALCIUM 7.7 MG/DL (8.5-10.1); CARBON DIOXIDE 21 MMOL/L (21-32); CHLORIDE 113 MMOL/L (98-107); CHOLESTEROL 112 MG/DL (< 200); GFR ESTIMATED > 60; GLUCOSE 113 MG/DL (70-105); HDL CHOLESTEROL 33 MG/DL (40-60); LIPASE 128 U/L (8-78); POTASSIUM 3.6 MMOL/L (3.6-5.0); SODIUM 142 MMOL/L (135-145); TRIGLYCERIDES 141 MG/DL (<150); VLDL CHOLESTEROL 28 MG/DL (5-40)
[2020-11-24] MEDS: FAMOTIDINE 20MG/2ML IV (PEPCID) IVP SCH ×2 (07:39→20:02)
[2020-11-24] MEDS: ACETAMINOPHEN 500 MG TAB (TYLENOL) PO PRN ×2 (07:40→14:53)
[2020-11-24] MEDS: DULoxetine 30 MG (CYMBALTA) CAP PO SCH (07:40)
[2020-11-24] MEDS: LEVETIRACETAM 500 MG (KEPPRA) TAB PO SCH ×2 (07:41→20:03)
[2020-11-24] MEDS: amLODIPine 10 MG (NORVASC) TAB PO SCH (07:41)
[2020-11-24] MEDS: FOLIC ACID 1 MG TAB PO SCH (07:41)
[2020-11-24] MEDS: guaiFENesin (MUCINEX) 600 MG TAB PO SCH ×2 (07:41→20:03)
[2020-11-24] MEDS: toPIRamate 25 MG (TOPAMAX) TAB PO SCH ×2 (07:41→20:03)
[2020-11-24] MEDS: HYDROXYCHLOROQUINE 200 MG (PLAQUENIL) TAB PO SCH ×2 (07:41→20:03)
[2020-11-24] MEDS: ASPIRIN E.C. 81 MG (ECOTRIN) TAB PO SCH (07:42)
[2020-11-24 08:00] VITALS: BP 183/77
[2020-11-24] MEDS ORDERED: HOLD METFORMIN - RECEIVED CONTRAST 20 ML VIAL IV SCH (08:15)
[2020-11-24] MEDS ORDERED: CATHETER FLUSH 10 ML SYR IV PRN (08:15)
[2020-11-24] MEDS ORDERED: IOHEXOL 350 MG/ML 100 ML (OMNIPAQUE 350) VIAL IV ONE (08:15)
[2020-11-24] MEDS ORDERED: NS 100 ML (IVPB) BAG IV ONE (08:15)
[2020-11-24] MEDS ORDERED: NON-FORMULARY MEDICATION 1 EA EA (Duloxetine HCl (Cymbalta) 60 MG) PO SCH (09:00)
--- NOTE | 2020-11-24 09:18 | Diagnostic Imaging Report ---
PROCEDURE: CT abdomen and pelvis with and without contrast. TECHNIQUE: Precontrast acquisitions were acquired through the abdomen and pelvis. Multiple contiguous axial images were obtained through the abdomen and pelvis after the administration of intravenous contrast. Auto Exposure Controls were utilized during the CT exam to meet ALARA standards for radiation dose reduction. INDICATION: Renal mass. FINDINGS: There are multiple cystic lesions in both kidneys several of which have hyperdense attenuation compared to the renal parenchyma on the precontrast phase. In particular, the lesion of interest is in the lateral aspect of the left kidney. It has a Hounsfield density of approximately 80 on all four phases of imaging which would suggest that this is a milk of calcium cyst. The patient had a CT from 09/14/2019. Lesion was present at that time and appears unchanged in intensity or size. There are patchy peripheral infiltrates in the lungs. Liver appears normal. Gallbladder is unremarkable. Portal vein is patent. Pancreas is normal. Spleen is not enlarged. Adrenals are normal. There is aortic atherosclerosis. IMPRESSION: Lesions in the kidneys appear to be cysts some which have milk of calcium including the lesion in the lateral aspect of the left kidney. Dictated by: Dictated on workstation # [id number]
[2020-11-24] MEDS: meTOprolol SUCCINATE 100 MG (TOPROL XL) TAB PO SCH (09:44)
[2020-11-24] MEDS: PANTOPRAZOLE 40 MG (PROTONIX) TAB PO SCH (09:44)
[2020-11-24 12:00] VITALS: BP 137/67
--- NOTE | 2020-11-24 12:30 | Progress Note ---
Subjective Subjective Date Seen by Provider: Nov 24, 2020 Time Seen by Provider: 07:00 Pt was seen and examined this morning. She stated that her pain is being controlled with Fentanyl. The breathing treatments are helping the pt breathe and reduce mucus congestion. On exam she had tenderness to palpation in the epig astric region. Pt denied nausea and vomiting. Review of Systems HEENT: Sinus Congestion Gastrointestinal: Abdominal Pain (epigastric) Neurological: Weakness Objective Exam Vital Signs Vital Signs - First Documented 11/23/20 11/23/20 11/23/20 02:09 05:16 12:00 Temp 36.6 Pulse 107 Resp 16 B/P (MAP) 158/92 (114) Pulse Ox 95 O2 Delivery Room Air FiO2 21 Capillary Refill : Less Than 3 Seconds General Appearance: No Apparent Distress, Chronically ill Neck: Normal Inspection, Non Tender, Supple Respiratory: No Accessory Muscle Use, No Respiratory Distress, Crackles (bilateral lower lobes), Decreased Breath Sounds Cardiovascular: Regular Rate, Rhythm, No Edema, No Gallop, No Murmur Gastrointestinal: Normal Bowel Sounds, No Organomegaly, No Pulsatile Mass, Soft, Tenderness (epigastric, decreased from yesterday) Extremity: Normal Capillary Refill, Normal Inspection, Non Tender, No Calf Tenderness, No Pedal Edema Neurologic/Psychiatric: Alert, Oriented x3, No Motor/Sensory Deficits, Normal Mood/Affect, international controller II-XII Norm as Tested Reflexes: 2+ Ankle (L) Skin: Warm/Dry, Pallor Results Lab Laboratory Tests 11/24/20 05:30: White Blood Count 5.3, Red Blood Count 3.31L, Hemoglobin 9.4L, Hematocrit 30L, Mean Corpuscular Volume 90, Mean Corpuscular Hemoglobin 28, Mean Corpuscular Hemoglobin Concent 32, Red Cell Distribution Width 13.2, Platelet Count 358, Mean Platelet Volume 9.5, Sodium Level 142, Potassium Level 3.6, Chloride Level 113H, Carbon Dioxide Level 21, Anion Gap 8, Blood Urea Nitrogen 4L, Creatinine 0.80, Estimat Glomerular Filtration Rate > 60, BUN/Creatinine Ratio 5, Glucose Level 113H, Calcium Level 7.7L, Corrected Calcium 8.8, Total Bilirubin 0.3, Aspartate Amino Transf (AST/SGOT) 18, Alanine Aminotransferase (ALT/SGPT) 13, Alkaline Phosphatase 141H, Total Protein 5.0L, Albumin 2.6L, Triglycerides Level 141, Cholesterol Level 112, LDL Cholesterol Direct 53, VLDL Cholesterol 28, HDL Cholesterol 33L, Lipase 128H 11/24/20 10:06: Stool Occult Blood Immunoassay NEGATIVE Assessment/Plan Assessment/Plan Admission Dx Assessment: bilateral lower lobe pneumonia kidney mass- 1.5cm epigatric pain stage 3 kidney disease Hgb dropped from 11.0 yesterday to 9.4 today Plan: abdominal CT decrease IV pain medication If the occult blood comes back positive, consult surgery for possible EGD pain control as needed continue breathing treatments Problems: (1) Upper abdominal pain Assessment & Plan: Severe with relatively acute onset, possible pancreatitis with mildly elevated lipase. CT without abnormal pancreas appearance. CLD, pain medications, IVF. Consider ulcer disease given history. IV famotidine started on admit, resume home PPI. Check stool occult blood. 11/24 improving, advance diet, stool occult blood negative. Lipase improving. (2) Pancreatitis Qualifiers: Qualified Codes: K85.90 - Acute pancreatitis without necrosis or infection, unspecified Assessment & Plan: Possible with mildly elevated lipase. If symptoms persistent, consider RUQ ultrasound, no stones seen on CT. Check triglycerides. Pt denies alcohol use. (3) Left renal mass Assessment & Plan: Noted incidentally on abdominal imaging, will discuss best f/u imaging with Radiology for next step. 11/24 CT with/without contrast showed IMPRESSION: Lesions in the kidneys appear to be cysts some which have milk of calcium including the lesion in the lateral aspect of the left kidney. (4) Stage 3 chronic kidney disease Qualifiers: Qualified Codes: N18.31 - Chronic kidney disease, stage 3a Assessment & Plan: Per pt reports, stage 3 CKD, currently with higher GFR. Monitor. (5) Chronic migraine Assessment & Plan: Resume home preventive medication. (6) Essential hypertension Assessment & Plan: Resume home medications (7) Coronary artery disease Assessment & Plan: Resume home medications (8) Hyperlipidemia Assessment & Plan: Resume home statin (9) Type 2 diabetes mellitus Qualifiers: Qualified Codes: E11.69 - Type 2 diabetes mellitus with other specified complication; Z79.4 - half-way (current) use of insulin Assessment & Plan: Reports she used to be on more diabetes medications, and recently has been using levemir only when blood sugar above 140 which it has not been in weeks to months. Will hold for now and use sliding scale as needed. (10) DVT prophylaxis Assessment & Plan: Enoxaparin Admission Dx Assessment: bilateral lower lobe pneumonia kidney mass- 1.5cm LUQ abdominal pain Plan: mass biopsy pain control as needed breathing treatment Clinical Quality Measures Admission Status Admission Dx Assessment: bilateral lower lobe pneumonia kidney mass- 1.5cm LUQ abdominal pain Plan: mass biopsy pain control as needed breathing treatment Supervisory-Addendum Brief Verification & Attestation Participated in pt care: history, MDM, physical Personally performed: exam, history Care discussed with: Medical Student Procedures: n/a I repeated the history and exam and agree with student documentation. YEHUDA BINGHAM MED STUDENT Nov 24, 2020 12:30 DASIA FRANKLIN MD Nov 24, 2020 20:36
[2020-11-24] MEDS: ENOXAPARIN 40 MG/0.4 ML (LOVENOX) SYR SQ SCH (14:53)
[2020-11-24] MEDS: PROMETHAZINE INJ 25 MG/ML (PHENERGAN) AMP IVP PRN (15:28)
[2020-11-24 16:00] VITALS: BP 130/65
[2020-11-24 20:00] VITALS: BP 112/59
[2020-11-25] VITALS: BP 144/66
[2020-11-25] MEDS: LACTATED RINGERS 1,000 ML IV SCH (01:25)
[2020-11-25] MEDS: RT-ALBUTEROL SULF 2.5 MG/3 ML PRE-MIX VIAL INH SCH ×2 (02:46→07:45)
[2020-11-25 03:52] VITALS: BP 121/60
[2020-11-25 08:00] VITALS: BP 151/74
[2020-11-25] MEDS: amLODIPine 10 MG (NORVASC) TAB PO SCH (08:29)
[2020-11-25] MEDS: ACETAMINOPHEN 500 MG TAB (TYLENOL) PO PRN (08:29)
[2020-11-25] MEDS: toPIRamate 25 MG (TOPAMAX) TAB PO SCH (08:29)
[2020-11-25] MEDS: ASPIRIN E.C. 81 MG (ECOTRIN) TAB PO SCH (08:29)
[2020-11-25] MEDS: DULoxetine 30 MG (CYMBALTA) CAP PO SCH (08:29)
[2020-11-25] MEDS: LEVETIRACETAM 500 MG (KEPPRA) TAB PO SCH (08:29)
[2020-11-25] MEDS: FOLIC ACID 1 MG TAB PO SCH (08:29)
[2020-11-25] MEDS: meTOprolol SUCCINATE 100 MG (TOPROL XL) TAB PO SCH (08:29)
[2020-11-25] MEDS: HYDROXYCHLOROQUINE 200 MG (PLAQUENIL) TAB PO SCH (08:29)
[2020-11-25] MEDS: PANTOPRAZOLE 40 MG (PROTONIX) TAB PO SCH (08:29)
[2020-11-25] MEDS: guaiFENesin (MUCINEX) 600 MG TAB PO SCH (08:29)
[2020-11-25 08:59] LABS: HEMOGLOBIN 9.5 g/dL (11.5-16.0); MEAN PLATELET VOLUME 9.8 fL (9.0-12.2); WHITE BLOOD COUNT 6.9 10^3/uL (4.3-11.0)
[2020-11-25 09:18] LABS: BUN/CREATININE RATIO 6; CALCIUM 7.9 MG/DL (8.5-10.1); CARBON DIOXIDE 20 MMOL/L (21-32); CHLORIDE 110 MMOL/L (98-107); CREATININE SERUM 0.84 MG/DL (0.60-1.30); GFR ESTIMATED > 60; GLUCOSE 149 MG/DL (70-105); LIPASE 131 U/L (8-78); POTASSIUM 3.8 MMOL/L (3.6-5.0); SODIUM 140 MMOL/L (135-145)
[2020-11-25] MEDS ORDERED: ONDA4TAB11 PO (11:01)
[2020-11-25] MEDS ORDERED: ALBU2.5V4 INH (11:01)
--- NOTE | 2020-11-25 11:04 | Discharge Summary ---
Discharge Summary Instructions for Patient [facility] Health Assessment/Instructions Follow up with Gustavo Moulton on 11/30 at 8:20 am. Physician to follow Patient: TAYLOR Moore Discharge Diet for Home: No Restrictions Hospital Course Date of Admission: Nov 23, 2020 at 04:59 Admission Diagnosis : Family Physician/Provider: Gustavo Moulton Date of Discharge: 11/25/20 Discharge Diagnosis: See problem list Hospital Course: (1) Upper abdominal pain Assessment & Plan: Severe with relatively acute onset, possible pancreatitis with mildly elevated lipase. CT without abnormal pancreas appearance. CLD, pain medications, IVF. Consider ulcer disease given history. IV famotidine started on admit, resume home PPI. Check stool occult blood. 11/25 improved, not requiring pain medication, tolerating soft diet, stool occult blood negative. Lipase improving. (2) Pancreatitis Qualifiers: Qualified Codes: K85.90 - Acute pancreatitis without necrosis or infection, unspecified Assessment & Plan: Possible with mildly elevated lipase. If symptoms persistent, consider RUQ ultrasound, no stones seen on CT. Triglycerides okay. Pt denies alcohol use. (3) Left renal mass Assessment & Plan: Noted incidentally on abdominal imaging, will discuss best f/u imaging with Radiology for next step. 11/24 CT with/without contrast showed IMPRESSION: Lesions in the kidneys appear to be cysts some which have milk of calcium including the lesion in the lateral aspect of the left kidney. (4) Stage 3 chronic kidney disease Qualifiers: Qualified Codes: N18.31 - Chronic kidney disease, stage 3a Assessment & Plan: Per pt reports, stage 3 CKD, currently with higher GFR. Monitor. (5) Chronic migraine Assessment & Plan: Resume home preventive medication. 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 Will hold for now and use sliding scale as needed. Labs and Pending Lab Test: Laboratory Tests 11/25/20 08:30: White Blood Count 6.9, Red Blood Count 3.31L, Hemoglobin 9.5L, Hematocrit 30L, Mean Corpuscular Volume 91, Mean Corpuscular Hemoglobin 29, Mean Corpuscular Hemoglobin Concent 32, Red Cell Distribution Width 13.4, Platelet Count 387, Mean Platelet Volume 9.8, Sodium Level 140, Potassium Level 3.8, Chloride Level 110H, Carbon Dioxide Level 20L, Anion Gap 10, Blood Urea Nitrogen 5L, Creatinine 0.84, Estimat Glomerular Filtration Rate > 60, BUN/Creatinine Ratio 6, Glucose Level 149H, Calcium Level 7.9L, Lipase 131H Home Meds Active Ondansetron Odt (Ondansetron) 4 Mg Tab.rapdis 4 Mg PO Q4H PRN Albuterol Sulfate 2.5 Mg/3 Ml Vial.neb 2 Puff INH Q4H PRN Levetiracetam 500 Mg Tablet 500 Mg PO BID Aspirin EC (Aspirin) 81 Mg Tablet. 81 Mg PO DAILY Furosemide 40 Mg Tablet 40 Mg PO DAILY PRN Reported Amlodipine Besylate 10 Mg Tablet 10 Mg PO DAILY [id number]-Cod #3 Capsule (Codeine/Butalbital/ASA/Caffein) 1 Each Capsule 1 Each PO DAILY PRN Vitamin D3 (Cholecalciferol (Vitamin D3)) 50 Mcg Tablet 50 Mcg PO DAILY Atorvastatin Calcium 40 Mg Tablet 40 Mg PO HS Metoprolol Succinate 100 Mg Tab.er.24h 100 Mg PO DAILY Hydroxychloroquine Sulfate 200 Mg Tablet 200 Mg PO BID Folic Acid 1 Mg Tablet 1 Mg PO DAILY Cymbalta (Duloxetine HCl) 30 Mg Capsule.dr 30 Mg PO DAILY TAKE ALONG WITH 60MG CAP FOR A TOTAL DAILY DOSE OF 90MG Topiramate 50 Mg Tablet 75 Mg PO BID TAKE 1 & 1/2 OF 50MG TAB Pantoprazole Sodium 40 Mg Tablet.dr 40 Mg PO DAILY Patient Allergies: Coded Allergies: clopidogrel (Verified Allergy, Severe, BLOOD CLOTS, 11/27/18) Penicillins (Verified Allergy, Mild, RASH, 11/27/18) carisoprodol (Verified Allergy, Mild, RASH, 11/27/18) cephalexin (Verified Allergy, Mild, RASH, 11/27/18) ketorolac (Verified Allergy, Mild, RASH, 11/27/18) prochlorperazine (Verified Allergy, Mild, RASH, 11/27/18) Carbamates (Verified Allergy, Unknown, Rash, 05/28/19) Height (Feet): 5 Height (Inches): 4.00 Weight (Pounds): 216 Weight (Ounces): 4.2 Home Health Need/Face to Face Date of Face to Face: Nov 25, 2020 Clinical Findings: Generalized weakness and fatigue, Muscle weakness I have seen Pt [id number]: Yes Discharged To: Home Diagnosis/Conditions: Pancreatitis Debility See problems Problems/Diagnosis/Condition: (1) Stage 3 chronic kidney disease (2) Chronic migraine (3) Left renal mass (4) Type 2 diabetes mellitus (5) Pancreatitis (6) Hyperlipidemia (7) Essential hypertension (8) Coronary artery disease (9) Nausea and vomiting Patient is Homebound due to: Muscle weakness Homebound Status Due to the above stated illness, injury or surgical procedure (medical condition or diagnosis) and associated clinical findings, the patient is homebound because of his/her inability to leave home except with aid of a supportive device and/or person AND leaving the home requires a considerable and taxing effort or is medically contraindicated. Pt req the following assistanc: Aid of another person Home Health Nursing Orders Home Health Services Order: Nursing Services, Physical Therapy-Evaluate & Treat Home Health Infusion Therapy Line Start Date: Nov 23, 2020 Therapy Orders Therapy Orders: PT to assess for OT Certify Stmt I certify that this patient is under my care and that I, a nurse practitioner or a physician; a phlebotomist lab assistant working with me, had a face to face encounter that -meets the physician face to face encounter requirements with this patient as dated. Discharge Physical Exam General: Alert, No Acute Distress Lungs: Clear to Auscultation, Normal Air Movement Heart: Regular Rate, No Murmurs Abdomen: Normal Bowel Sounds, Soft, No Tenderness Extremities: No Edema Neuro: Normal Speech Psych/Mental Status: Mood NL DASIA FRANKLIN MD Nov 25, 2020 11:04
[2020-11-25] MEDS: FAMOTIDINE 20MG/2ML IV (PEPCID) IVP SCH (12:23)
[2020-11-25] MEDS ORDERED: RT-ALBUTEROL SULF 2.5 MG/3 ML PRE-MIX VIAL ONE (14:41)
[2020-11-26] MEDS ORDERED: HYOS0.1283 SL (21:07)
[2020-11-26] MEDS ORDERED: ACHD5005 PO (21:07)
[2020-11-26] MEDS ORDERED: ONDA8TAB13 PO (21:07)
[2020-11-26] MEDS ORDERED: PANT40TA2 PO (21:07)
== END 2020-11-25 12:30 | disposition home or self-care (01) ==
LOC: EDUNIT# 02:07 → ER 02:09 → UNDOADMOB 04:59 → 4TH 04:59 → ER 05:27 → 4TH 05:40 → UNDODISOB 11-25 13:31 → 4TH 11-25 13:42
PROVIDERS: ADMIT Family Medicine; ATTEND Family Medicine
DX: R10.10 Upper abdominal pain, unspecified (principal); K85.90 Acute pancreatitis without necrosis or infection, unspecified; I12.9 Hypertensive chronic kidney disease with stage 1 through stage 4 chronic kidney disease, or unspecified chronic kidney disease; N18.31 Chronic kidney disease, stage 3a; E11.22 Type 2 diabetes mellitus with diabetic chronic kidney disease; G43.909 Migraine, unspecified, not intractable, without status migrainosus; I25.10 Atherosclerotic heart disease of native coronary artery without angina pectoris; E78.5 Hyperlipidemia, unspecified; J44.9 Chronic obstructive pulmonary disease, unspecified; E78.00 Pure hypercholesterolemia, unspecified; E11.40 Type 2 diabetes mellitus with diabetic neuropathy, unspecified; G89.29 Other chronic pain; M19.90 Unspecified osteoarthritis, unspecified site; Z79.4 Long term (current) use of insulin; Z79.82 Long term (current) use of aspirin; Z79.51 Long term (current) use of inhaled steroids; Z79.899 Other long term (current) drug therapy; N28.89 Other specified disorders of kidney and ureter; Z88.0 Allergy status to penicillin; Z88.1 Allergy status to other antibiotic agents; Z88.5 Allergy status to narcotic agent; Z88.8 Allergy status to other drugs, medicaments and biological substances; Z90.710 Acquired absence of both cervix and uterus
CPT/HCPCS: 36415; 74177; 74178; 80048; 80053; 80061; 82274; 83690; 85025; 85027; 86141; 94640; 94760

== ENCOUNTER 2020-11-26 18:31 | Emergency (ER) | payer MEDICARE ==
[~2020-11-26] VITALS: Ht 162.5 cm; Wt 77.0 kg
[~2020-11-26 18:31] MED LIST changes: +ALBU2.5V4 INH; -BUTA-235 PO; +BUTA1TAB9 PO; +OXYC-471 PO; -OXYC1TAB11 PO
[2020-11-26] MEDS ORDERED: fentaNYL INJECTION 100 MCG/2 ML AMP IVP STA (18:44)
[2020-11-26] MEDS ORDERED: ONDANSETRON 4 MG/2 ML (SDV) Z0FRAN IVP ONE ×2 (18:45→19:45)
[2020-11-26] MEDS ORDERED: NS IV 1000 ML 1,000 ML IV SCH ×2 (18:45→20:30)
[2020-11-26] MEDS ORDERED: PANTOPRAZOLE 40 MG (PROTONIX) VIAL IV ONE (18:45)
--- NOTE | 2020-11-26 19:00 | NUR ---
RECIEVED REPORT FROM VAL GAMBLE TO ASSUME CARE OF PT AT THIS TIME.
--- NOTE | 2020-11-26 19:14 | ED Abdominal Pain ---
General Chief Complaint: Abdominal/GI Problems Stated Complaint: DX W/ PANCREATITIS/ABD PAIN Nursing Triage Note: PT AMB TO RM 6 WITH COMPLAINT OF EPIGASTRIC PAIN THAT RADIATES INTO BACK. PT WAS DISCAHRGED FROM [facility] TODAY. Sepsis Screen: No Definite Risk Source of Information: Patient, Old Records History of Present Illness Date Seen by Provider: Nov 26, 2020 Time Seen by Provider: 18:40 Initial Comments PT ARRIVES VIA POV FROM HOME C/O EPIGASTRIC PAIN X 1 WEEK ADMITTED 11/23-11/25/20 FOR PANCREATITIS. STATES SHE WAS SENT HOME WITH RX FOR ZOFRAN, BUT NO RX FOR PAIN MEDICATION HAS HAD CONTINUED SEVERE PAIN C/O NAUSEA, NO VOMITING. TOOK ZOFRAN X 3 TODAY HAD NORMAL BM TODAY VOIDING A NORMAL AMOUNT NO FEVER/SWEATS/CHILLS NO RADIATION OF PAIN NOTHING WORSENS OR IMPROVES PAIN PT IS DIABETIC, BUT RECENTLY ALL OF HER DIABETIC MEDICATIONS WERE DC'D DUE TO NORMAL BLOOD SUGAR READINGS, AND HAS NOT BEEN CHECKING HER BLOOD SUGAR. PT WAS ON LEVEMIR, VICTOZA AND METFORMIN, AND ALL WERE DC'D ON Saturday11/24/20 PT STATES SHE HAS HAD 7-UP, BROTH, AND DIANNE-SELTZER TODAY, WITHOUT RELIEF. PRIOR ABDOMINAL SURGERIES INCLUDE HYSTERECTOMY, EXPLORATORY LAPAROTOMY FOR BOWEL OBSTRUCTION AND REMOVAL OF ADHESIONS, PER PT PCP: [place], DR. FRANKLIN, CODING VALIDATOR [facility] ASSOCIATE SOFTWARE ENGINEER: DR. GUTIERREZ Allergies and Home Medications Allergies Coded Allergies: clopidogrel (Verified Allergy, Severe, BLOOD CLOTS, 11/27/18) Penicillins (Verified Allergy, Mild, RASH, 11/27/18) carisoprodol (Verified Allergy, Mild, RASH, 11/27/18) cephalexin (Verified Allergy, Mild, RASH, 11/27/18) ketorolac (Verified Allergy, Mild, RASH, 11/27/18) prochlorperazine (Verified Allergy, Mild, RASH, 11/27/18) Carbamates (Verified Allergy, Unknown, Rash, 05/28/19) Home Medications Albuterol Sulfate 2.5 Mg/3 Ml Vial.neb, 2 PUFF INH Q4H PRN for SHORTNESS OF BREATH Prescribed by: DASIA FRANKLIN on 11/25/20 1101 Amlodipine Besylate 10 Mg Tablet, 10 MG PO DAILY, (Reported) Aspirin 81 Mg Tablet., 81 MG PO DAILY Prescribed by: OLIVE ISAAC on 11/21/20 1010 Atorvastatin Calcium 40 Mg Tablet, 40 MG PO HS, (Reported) Cholecalciferol (Vitamin D3) 50 Mcg Tablet, 50 MCG PO DAILY, (Reported) Codeine/Butalbital/ASA/Caffein 1 Each Capsule, 1 EACH PO DAILY PRN for MIGRAINE, (Reported) Duloxetine HCl 30 Mg Capsule.dr, 30 MG PO DAILY, (Reported) TAKE ALONG WITH 60MG CAP FOR A TOTAL DAILY DOSE OF 90MG Folic Acid 1 Mg Tablet, 1 MG PO DAILY, (Reported) Furosemide 40 Mg Tablet, 40 MG PO DAILY PRN for EDEMA Prescribed by: OLIVE ISAAC on 11/21/20 1010 Hydrocodone/Acetaminophen 1 Each Tablet, 1-2 EACH PO Q4-6 HOURS PRN for PAIN Prescribed by: RAPHAEL DUNCAN on 11/26/202106 Hydroxychloroquine Sulfate 200 Mg Tablet, 200 MG PO BID, (Reported) Hyoscyamine Sulfate 0.125 Mg Tab.subl, 0.25 MG SL Q4H Prescribed by: RAPHAEL DUNCAN on 11/26/202106 Levetiracetam 500 Mg Tablet, 500 MG PO BID Prescribed by: OLIVE ISAAC on 11/21/20 1010 Metoprolol Succinate 100 Mg Tab.er.24h, 100 MG PO DAILY, (Reported) Ondansetron 4 Mg Tab.rapdis, 4 MG PO Q4H PRN for NAUSEA-1ST LINE Prescribed by: DASIA FRANKLIN on 11/25/20 1101 Ondansetron 8 Mg Tab.rapdis, 8 MG PO Q6H Prescribed by: RAPHAEL DUNCAN on 11/26/202106 Pantoprazole Sodium 40 Mg Tablet.dr, 40 MG PO DAILY, (Reported) Pantoprazole Sodium 40 Mg Tablet.dr, 40 MG PO DAILY Prescribed by: RAPHAEL DUNCAN on 11/26/202106 Topiramate 50 Mg Tablet, 75 MG PO BID, (Reported) TAKE 1 & 1/2 OF 50MG TAB Patient Home Medication List Home Medication List Reviewed: Yes Review of Systems Review of Systems Constitutional: no symptoms reported; No chills, No diaphoresis, No fever EENTM: No Symptoms Reported Respiratory: No Symptoms Reported; Denies Cough, Denies Shortness of Air Cardiovascular: No Symptoms Reported; Denies Chest Pain, Denies Edema, Denies Lightheadedness, Denies Palpitations, Denies Syncope Gastrointestinal: See HPI, Abdominal Pain; Denies Constipated, Denies Diarrhea; Nausea, Poor Appetite; Denies Vomiting Genitourinary: No Symptoms Reported Musculoskeletal: no symptoms reported; No back pain Skin: no symptoms reported Psychiatric/Neurological: No Symptoms Reported Endocrine: No Symptoms Reported, See HPI Hematologic/Lymphatic: No Symptoms Reported Past Osfmwaj-Ejrdrm-Vaxlxr Hx Past Med/Social Hx: Reviewed and Corrections made Patient Social History Alcohol Use: Denies Use Drug of Choice: DENIES Smoking Status: Never a Smoker 2nd Hand Smoke Exposure: No Recent Infectious Disease Expo: No Recent Hopitalizations: Yes (covid-19 on Nov 16) Immunizations Up To Date Tetanus Booster (TDap): Unknown Date of Pneumonia Vaccine: Jul 29, 2017 Date of Influenza Vaccine: Jun 30, 2020 Seasonal Allergies Seasonal Allergies: No Past Medical History Surgeries: Yes (R CTR, espohageal ligation x2, Hernia, L RCR, L TKR, laparotom y, MRSA infec) Abdominal, Breast, Cardiac, Coronary Stent, Hysterectomy, Joint Replacement, Oophorectomy, Orthopedic, Thyroidectomy Respiratory: Yes (COVID-19 November 07, 2020-ADMITTED WITH PNEUMONIA) Pneumonia Currently Using CPAP: No Currently Using BIPAP: No Cardiac: Yes (HX HEART CATH-STENT;MILD BILAT CAROTID STENOSIS;DVT L ARM DUE TO PICC LINE) Coronary Artery Disease, Deep Vein Thrombosis, Heart Attack, High Cholesterol, Hypertension, Peripheral Vascular Neurological: Yes Headaches /Migraines, Neuropathy 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 History: Hysterectomy, Menopausal Sexually Transmitted Disease: No HIV/AIDS: No Genitourinary: Yes (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,STAGE 2-KIDNEY DISEASE;DIABETIC NEPHROPA ) Bladder Infection, Renal Failure, Dialysis Gastrointestinal: Yes (HX GI BLEED, zenkers syndrome-chokes easily, hx hep A;LIVER INJURY/TRAUMA) Abdominal Hernia, Gastroesophageal Reflux, Gastrointestinal Bleed, Esophageal Varices, Hepatitis Musculoskeletal: Yes (OSTEOARTHRITIS, BULGING DISCS) Arthritis, Chronic Back Pain Endocrine: Yes (partial thyroidectomy) Diabetes, Insulin dep, Hypothyroidsim HEENT: Yes (GLASSES, UPPER DENTURES) Glaucoma Loss of Vision: Bilateral Cancer: Yes Breast Did You Recieve Any Treatments: Yes What Type of Treatment Did You: Radiation, Surgical Intervention S/P LEFT LUMPECTOMY AND RADIATION Psychosocial: No Integumentary: No Blood Disorders: Yes (IRON DEFFICIENCY ANEMIA-GETS IRON INFUSIONS) Adverse Reaction/Blood Tranf: No (HAS HAD BLOOD WITH NO REACTION) Family Medical History Hypertension G8 BROTHER Not obtainable due to adoption 19 FATHER Heart Disease, Hypertension ADDITIONAL PAST SURGICAL HISTORY -ZENKER'S DIVERTICULUM SURGERY X 2 -ABDOMINAL HERNIA REPAIR WITH MESH -MESH REMOVAL AND LYSIS OF ADHESIONS -HYST/BSO -LOOP RECORDER -PORT LEFT CHEST -LEFT BREAST LUMPECTOMY -CARDIAC CATH WITH STENT X 1 TO RCA 2010 -PORT LEFT CHEST -RIGHT SHOULDER REPLACEMENT -RENAL ARTERY STENOSIS WITH STENT 2013 Physical Exam Vital Signs Vital Signs - First Documented 11/26/20 18:38 Temp 35.5 Pulse 132 Resp 22 B/P (MAP) 147/86 (106) Pulse Ox 95 O2 Delivery Room Air Capillary Refill : Less Than 3 Seconds Height/Weight/BMI Height: 5'4.00" Weight: 216lbs. 4.2oz. [id number]; 29.00 BMI Method:Stated General Appearance: WD/WN, other (LOOKS UNCOMFORTABLE, HOLDING EPIGASTRIC AREA) HEENT: PERRL/EOMI; No scleral icterus (R), No scleral icterus (L) Neck: normal inspection Respiratory: normal breath sounds, no respiratory distress, no accessory muscle use Cardiovascular: no edema, no JVD, no murmur, tachycardia, other (PORT LEFT CHEST) Gastrointestinal: normal bowel sounds, soft, no organomegaly, no pulsatile mass; No distended; guarding; No rebound; tenderness (EPIGASTRIC TENDERNESS); No hernia, No mass Extremities: normal inspection, no pedal edema, normal capillary refill Back: normal inspection, no CVA tenderness Neurologic/Psychiatric: assessment director II-XII nml as tested, no motor/sensory deficits, alert, normal mood/affect, oriented x 3 Skin: normal color, warm/dry Focused Exam Lactate Level 11/26/20 19:00: Lactic Acid Level 0.77 Lactic Acid Level Laboratory Tests Test 11/26/20 19:00 Lactic Acid Level 0.77 MMOL/L (0.50-2.00) Progress/Results/Core Measures Results/Orders Lab Results Laboratory Tests Test 11/26/20 19:00 11/26/20 20:26 Range/Units White Blood Count 6.8 4.3-11.0 10^3/uL Red Blood Count 3.59 L 3.80-5.11 10^6/uL Hemoglobin 10.2 L 11.5-16.0 g/dL Hematocrit 33 L 35-52 % Mean Corpuscular Volume 92 80-99 fL Mean Corpuscular Hemoglobin 28 25-34 pg Mean Corpuscular Hemoglobin Concent 31 L 32-36 g/dL Red Cell Distribution Width 13.6 10.0-14.5 % Platelet Count 445 H 130-400 10^3/uL Mean Platelet Volume 9.6 9.0-12.2 fL Immature Granulocyte % (Auto) 1 % Neutrophils (%) (Auto) 65 42-75 % Lymphocytes (%) (Auto) 21 12-44 % Monocytes (%) (Auto) 10 0-12 % Eosinophils (%) (Auto) 4 0-10 % Basophils (%) (Auto) 0 0-10 % Neutrophils # (Auto) 4.4 1.8-7.8 10^3/uL Lymphocytes # (Auto) 1.4 1.0-4.0 10^3/uL Monocytes # (Auto) 0.6 0.0-1.0 10^3/uL Eosinophils # (Auto) 0.3 0.0-0.3 10^3/uL Basophils # (Auto) 0.0 0.0-0.1 10^3/uL Immature Granulocyte # (Auto) 0.1 0.0-0.1 10^3/uL Prothrombin Time 13.3 12.2-14.7 SEC INR Comment 1.0 0.8-1.4 Activated Partial Thromboplast Time 38 H 24-35 SEC Sodium Level 140 135-145 MMOL/L Potassium Level 3.8 3.6-5.0 MMOL/L Chloride Level 110 H 98-107 MMOL/L Carbon Dioxide Level 19 L 21-32 MMOL/L Anion Gap 11 5-14 MMOL/L Blood Urea Nitrogen 6 L 7-18 MG/DL Creatinine 1.04 0.60-1.30 MG/DL Estimat Glomerular Filtration Rate 52 BUN/Creatinine Ratio 6 Glucose Level 116 H 70-105 MG/DL Lactic Acid Level 0.77 0.50-2.00 MMOL/L Calcium Level 8.2 L 8.5-10.1 MG/DL Corrected Calcium 8.9 8.5-10.1 MG/DL Magnesium Level 1.9 1.6-2.4 MG/DL Total Bilirubin 0.3 0.1-1.0 MG/DL Aspartate Amino Transf (AST/SGOT) 15 5-34 U/L Alanine Aminotransferase (ALT/SGPT) 13 0-55 U/L Alkaline Phosphatase 154 H 40-136 U/L Troponin I < 0.028 <0.028 NG/ML Total Protein 6.1 L 6.4-8.2 GM/DL Albumin 3.1 L 3.2-4.5 GM/DL Amylase Level 69 25-125 U/L Lipase 166 H 8-78 U/L Serum Alcohol < 10 <10 MG/DL Urine Color YELLOW Urine Clarity CLEAR Urine pH 7.5 5-9 Urine Specific [place] 1.010 L 1.016-1.022 Urine Protein NEGATIVE NEGATIVE Urine Glucose (UA) NEGATIVE NEGATIVE Urine Ketones NEGATIVE NEGATIVE Urine Nitrite NEGATIVE NEGATIVE Urine Bilirubin NEGATIVE NEGATIVE Urine Urobilinogen 0.2 < = 1.0 MG/DL Urine Leukocyte Esterase NEGATIVE NEGATIVE Urine RBC (Auto) NEGATIVE NEGATIVE Urine RBC NONE /HPF Urine WBC RARE /HPF Urine Squamous Epithelial Cells RARE /HPF Urine Crystals PRESENT H /LPF Urine Amorphous Sediment FEW TATA PHOSPHATE H /LPF Urine Bacteria TRACE /HPF Urine Casts PRESENT /LPF Urine Hyaline Casts RARE /LPF Urine Mucus NEGATIVE /LPF Urine Culture Indicated NO My Orders Orders - RAPHAEL DUNCAN DO Ed Iv/Invasive Line Start (11/26/20 18:37) Monitor-Rhythm Ecg Trace Only (11/26/20 18:37) Alcohol (11/26/20 18:37) Amylase (11/26/20 18:37) Cbc With Automated Diff (11/26/20 18:37) Comprehensive Metabolic Panel (11/26/20 18:37) Lactic Acid Analyzer (11/26/20 18:37) Lipase (11/26/20 18:37) Magnesium (11/26/20 18:37) Protime With Inr (11/26/20 18:37) Partial Thromboplastin Time (11/26/20 18:37) Ua Culture If Indicated (11/26/20 18:37) Blood Culture (11/26/20 18:37) Ed Iv/Invasive Line Start (11/26/20 18:37) Ns Iv 1000 Ml (Sodium Chloride 0.9%) (11/26/20 18:45) Fentanyl Injection (Sublimaze Injection (11/26/20 18:44) Ondansetron Injection (Zofran Injectio (11/26/20 18:45) Pantoprazole Injection (Protonix Injecti (11/26/20 18:45) Ekg Tracing (11/26/20 18:46) Troponin I (11/26/20 18:46) Ondansetron Injection (Zofran Injectio (11/26/20 19:45) Fentanyl Injection (Sublimaze Injection (11/26/20 19:45) Ct Abdomen/Pelvis W (11/26/20 19:37) Acute Abd Series (11/26/20 19:37) Iohexol Injection (Omnipaque 350 Mg/Ml 1 (11/26/20 20:15) Received Contrast (Hold Metformin- Contr (11/26/20 20:15) Ns (Ivpb) (Sodium Chloride 0.9% Ivpb Bag (11/26/20 20:15) Ed Iv/Invasive Line Start (11/26/20 20:28) Ns Iv 1000 Ml (Sodium Chloride 0.9%) (11/26/20 20:30) Fentanyl Injection (Sublimaze Injection (11/26/20 21:00) Scopolamine Patch (Transderm-Scop Patch) (11/26/20 21:00) Hyoscyamine Sl Tablet (Levsin Sl Tablet) (11/26/20 21:00) Rx-Hydrocodone/Apap 5-325 Mg (Rx-Vicodin (11/26/20 21:30) Rx-Hyoscyamine Tab (Rx-Levsin Sl) (11/26/20 21:29) Medications Given in ED Current Medications Medications Dose Ordered Sig/Ana María Route Start Time Stop Time Status Last Admin Dose Admin Acetaminophen/ Hydrocodone Bitart 1 ea Q4H PRN PO 11/26/20 21:30 11/26/20 21:44 DC 11/26/20 21:37 1 EA Fentanyl Citrate 50 mcg ONCE ONCE IVP 11/26/20 19:45 11/26/20 19:46 DC 11/26/20 19:42 50 MCG Fentanyl Citrate 50 mcg ONCE ONCE IVP 11/26/20 21:00 11/26/20 21:02 DC 11/26/20 21:06 50 MCG Hyoscyamine Sulfate 0.25 mg ONCE ONCE PO 11/26/20 21:00 11/26/20 21:02 DC 11/26/20 21:07 0.25 MG Iohexol 100 ml ONCE ONCE IV 11/26/20 20:15 11/26/20 20:16 DC 11/26/20 20:08 99 ML Ondansetron HCl 4 mg ONCE ONCE IVP 11/26/20 18:45 11/26/20 18:47 DC 11/26/20 18:58 4 MG Ondansetron HCl 8 mg ONCE ONCE IVP 11/26/20 19:45 11/26/20 19:46 DC 11/26/20 19:42 8 MG Pantoprazole 40 mg ONCE ONCE IV 11/26/20 18:45 11/26/20 18:47 DC 11/26/20 18:58 40 MG Scopolamine 1.5 mg ONCE ONCE TD 11/26/20 21:00 11/26/20 21:02 DC 11/26/20 21:07 1.5 MG Sodium Chloride 100 ml ONCE ONCE IV 11/26/20 20:15 11/26/20 20:16 DC 11/26/20 20:08 80 ML Vital Signs/I&O 11/26/20 11/26/20 18:38 21:44 Temp 35.5 36.0 Pulse 132 110 Resp 22 18 B/P (MAP) 147/86 (106) 141/68 (106) Pulse Ox 95 98 O2 Delivery Room Air Room Air 11/27/20 00:00 Intake Total 1000 ml Balance 1000 ml Blood Pressure Mean: 106 Progress Progress Note : Progress Note GIVEN IV FLUIDS, ZOFRAN AND FENTANYL FOR PAIN WITH IMPROVEMENT IN SYMPTOMS NO DETERIORATION IN PT'S CONDITION DURING ER STAY PT WANTS TO GO HOME. Initial ECG Impression Date: Nov 26, 2020 Initial ECG Impression Time: 19:04 Initial ECG Rate: 108 Initial ECG Rhythm: S.Tach (PVD, ARTIFACT) Diagnostic Imaging Comments CT ABDOMEN/PELVIS--PER RADIOLOGIST REPORT AT 2040 FINDINGS: Lung bases demonstrate atelectasis or scar. Mild infiltrates not excluded. There is fatty infiltration in the liver. The gallbladder is distended but there is no surrounding inflammatory change appreciated. The common duct is slightly prominent, measuring almost 9 mm. A distal obstructive process is not seen; however, there is fat stranding about the pancreatic head which could be due to a mild pancreatitis. Correlate with lipase and amylase. No adjacent fluid collection appreciated. The pancreas is overall atrophied. Adrenal glands are normal. Kidneys demonstrate some atrophy with multiple cystic lesions, bilaterally. There is a hyperdense lesion exophytic off of the mid aspect of the lateral left kidney which is not consistent with a cyst. This measures 17 mm in greatest dimension and is considered a renal cell carcinoma until proven otherwise. Dedicated renal imaging on a nonemergent basis would be recommended. There is atherosclerotic disease along the aorta and its branches. There is no ascites or free air. There is a density in the bilateral lower abdominal region subcutaneously likely from iatrogenic change. There is degenerative disease and osteopenia within the osseous structures. IMPRESSION: 1. Mild fat stranding about the pancreatic head suggesting possible early pancreatitis, see above discussion. 2. Mild prominence of the common duct. A distal obstructive process is difficult to exclude although this finding could be secondary to the inflammatory change about the pancreatic head. Correlate with symptoms and follow-up recommended. 3. Lesion in the left kidney not consistent with a simple cyst. Dedicated renal protocol CT or sonography on a nonemergent basis may provide further characterization. Other findings as above. ABDOMEN XRAYS--PER RADIOLOGIST REPORT AT 2040 FINDINGS: The right hemidiaphragm is elevated. There is atelectasis versus infiltrate at the lung bases. Pulmonary vascular congestion is noted. There is scattered air and stool throughout the colon to the rectosigmoid with no free air and no dilated loops of bowel. The heart is unremarkable. There is an overlying recorder device. There is a chest port on the left with the tip at the junction of the SVC and right atrium. There is no effusion. No pneumothorax. IMPRESSION: 1. Bibasilar atelectasis versus infiltrate. 2. Pulmonary vascular congestion. 3. Nonobstructive bowel gas pattern. Reviewed: Reviewed by Me Departure Communication (Admissions) 2051--SPOKE WITH DR. BAUTISTA, HOSPITALIST SALES INTERN FOR [facility]--ADVISES TO SEND HOME WITH PAIN MEDICATION, AND FOLLOW UP IN CLINIC. WILL ORDER OUTPATIENT ULTRASOUND Impression Primary Impression: Epigastric pain Additional Impression: Pancreatitis Disposition: HOME, SELF-CARE Condition: Improved Departure-Patient Inst. Referrals: DASIA FRANKLIN MD,JAVIER VAZQUEZ (PCP) Primary Care Physician Patient Instructions: Severe Abdominal Pain, Adult (DC), Pancreatitis Add. Discharge Instructions: CLEAR LIQUIDS--WATER, BROTH, JELLO, GATORADE NO FOOD UNTIL YOU ARE PAIN-FREE FOLLOW UP WITH [facility] [place] ON SATURDAY FOR FURTHER CARE CALL ON SATURDAY TO SCHEDULE OUTPATIENT ULTRASOUND OF ABDOMEN All discharge instructions reviewed with patient and/or family. Voiced understanding. Scripts Hydrocodone/Acetaminophen (Hydrocodone-Acetamin 5-325 mg) 1 Each Tablet 1-2 EACH PO Q4-6 HOURS PRN for PAIN, #20 TAB Prov: RAPHAEL DUNCAN DO 11/26/20 Pantoprazole Sodium (Protonix) 40 Mg Tablet.dr 40 MG PO DAILY, #15 TAB Prov: ADELAIDE DUNCANA K DO 11/26/20 Hyoscyamine Sulfate (Levsin-Sl) 0.125 Mg Tab.subl 0.25 MG SL Q4H, #15 TAB Prov: RAPHAEL DUNCAN DO 11/26/20 Ondansetron (Ondansetron Odt) 8 Mg Tab.rapdis 8 MG PO Q6H, #10 TAB Prov: ADELAIDE DUNCANA Donny DO 11/26/20 RAPHAEL DUNCAN DO Nov 26, 2020 19:14
[2020-11-26 19:18] LABS: BASOPHILS % (AUTO) 0 % (0-10); EOSINOPHILS # (AUTO) 0.3 10^3/uL (0.0-0.3); EOSINOPHILS % (AUTO) 4 % (0-10); HEMATOCRIT 33 % (35-52); HEMOGLOBIN 10.2 g/dL (11.5-16.0); LYMPHOCYTES # (AUTO) 1.4 10^3/uL (1.0-4.0); LYMPHOCYTES % (AUTO) 21 % (12-44); MEAN CORPUSCULAR HEMOGLOBIN 28 pg (25-34); MEAN CORPUSCULAR HGB CONC 31 g/dL (32-36); MEAN CORPUSCULAR VOLUME 92 fL (80-99); MEAN PLATELET VOLUME 9.6 fL (9.0-12.2); MONOCYTES # (AUTO) 0.6 10^3/uL (0.0-1.0); MONOCYTES % (AUTO) 10 % (0-12); NEUTROPHILS # (AUTO) 4.4 10^3/uL (1.8-7.8); NEUTROPHILS % (AUTO) 65 % (42-75); PLATELET COUNT 445 10^3/uL (130-400); WHITE BLOOD COUNT 6.8 10^3/uL (4.3-11.0)
[2020-11-26 19:28] LABS: PROTHROMBIN TIME PATIENT 13.3 SEC (12.2-14.7)
[2020-11-26 19:29] LABS: ALBUMIN 3.1 GM/DL (3.2-4.5); CHLORIDE 110 MMOL/L (98-107); POTASSIUM 3.8 MMOL/L (3.6-5.0); SODIUM 140 MMOL/L (135-145)
[2020-11-26 19:30] LABS: AMYLASE 69 U/L (25-125); CALCIUM 8.2 MG/DL (8.5-10.1)
[2020-11-26 19:32] LABS: GLUCOSE 116 MG/DL (70-105); TOTAL PROTEIN 6.1 GM/DL (6.4-8.2)
[2020-11-26 19:33] LABS: BILIRUBIN,TOTAL 0.3 MG/DL (0.1-1.0); CARBON DIOXIDE 19 MMOL/L (21-32)
[2020-11-26 19:35] LABS: ALKALINE PHOSPHATASE 154 U/L (40-136); CREATININE SERUM 1.04 MG/DL (0.60-1.30); GFR ESTIMATED 52
[2020-11-26 19:36] LABS: BUN/CREATININE RATIO 6
[2020-11-26 19:38] LABS: ALANINE AMINOTRANSFERASE 13 U/L (0-55); MAGNESIUM 1.9 MG/DL (1.6-2.4)
[2020-11-26 19:39] LABS: LIPASE 166 U/L (8-78)
[2020-11-26] MEDS ORDERED: fentaNYL INJECTION 100 MCG/2 ML AMP IVP ONE ×2 (19:45→21:00)
[2020-11-26] MEDS ORDERED: HOLD METFORMIN - RECEIVED CONTRAST 20 ML VIAL IV SCH (20:15)
[2020-11-26] MEDS ORDERED: IOHEXOL 350 MG/ML 100 ML (OMNIPAQUE 350) VIAL IV ONE (20:15)
[2020-11-26] MEDS ORDERED: NS 100 ML (IVPB) BAG IV ONE (20:15)
[2020-11-26 20:33] LABS: BILIRUBIN,URINE NEGATIVE (NEGATIVE); CLARITY,URINE CLEAR; COLOR,URINE YELLOW; GLUCOSE, URINE (UA) NEGATIVE (NEGATIVE); KETONES,URINE NEGATIVE (NEGATIVE); LEUKOCYTE ESTERASE ,URINE NEGATIVE (NEGATIVE); NITRITE,URINE NEGATIVE (NEGATIVE); PH,URINE 7.5 (5-9); PROTEIN,URINE NEGATIVE (NEGATIVE)
--- NOTE | 2020-11-26 20:34 | Diagnostic Imaging Report ---
INDICATION: Epigastric pain history of hernia. Prior breast carcinoma. EXAMINATION: Chest and acute abdomen series, 11/26/2020. COMPARISON: 09/30/2020. FINDINGS: The right hemidiaphragm is elevated. There is atelectasis versus infiltrate at the lung bases. Pulmonary vascular congestion is noted. There is scattered air and stool throughout the colon to the rectosigmoid with no free air and no dilated loops of bowel. The heart is unremarkable. There is an overlying recorder device. There is a chest port on the left with the tip at the junction of the SVC and right atrium. There is no effusion. No pneumothorax. IMPRESSION: 1. Bibasilar atelectasis versus infiltrate. 2. Pulmonary vascular congestion. 3. Nonobstructive bowel gas pattern. Dictated by: Dictated on workstation # [id number]
--- NOTE | 2020-11-26 20:38 | Diagnostic Imaging Report ---
TECHNIQUE: CT abdomen and pelvis with contrast, 11/26/2020. All CT scans use one or more of the following dose optimizing techniques: automated exposure control, MA and/or KvP adjustment based on patient size and exam type or iterative reconstruction. INDICATION: Epigastric pain, history of pancreatitis. Prior hysterectomy, hernia repair, history of breast carcinoma. FINDINGS: Lung bases demonstrate atelectasis or scar. Mild infiltrates not excluded. There is fatty infiltration in the liver. The gallbladder is distended but there is no surrounding inflammatory change appreciated. The common duct is slightly prominent, measuring almost 9 mm. A distal obstructive process is not seen; however, there is fat stranding about the pancreatic head which could be due to a mild pancreatitis. Correlate with lipase and amylase. No adjacent fluid collection appreciated. The pancreas is overall atrophied. Adrenal glands are normal. Kidneys demonstrate some atrophy with multiple cystic lesions, bilaterally. There is a hyperdense lesion exophytic off of the mid aspect of the lateral left kidney which is not consistent with a cyst. This measures 17 mm in greatest dimension and is considered a renal cell carcinoma until proven otherwise. Dedicated renal imaging on a nonemergent basis would be recommended. There is atherosclerotic disease along the aorta and its branches. There is no ascites or free air. There is a density in the bilateral lower abdominal region subcutaneously likely from iatrogenic change. There is degenerative disease and osteopenia within the osseous structures. IMPRESSION: 1. Mild fat stranding about the pancreatic head suggesting possible early pancreatitis, see above discussion. 2. Mild prominence of the common duct. A distal obstructive process is difficult to exclude although this finding could be secondary to the inflammatory change about the pancreatic head. Correlate with symptoms and follow-up recommended. 3. Lesion in the left kidney not consistent with a simple cyst. Dedicated renal protocol CT or sonography on a nonemergent basis may provide further characterization. Other findings as above. Dictated by: Dictated on workstation # [id number]
[2020-11-26 20:39] LABS: BACTERIA,URINE TRACE /HPF; WBC,URINE RARE /HPF
[2020-11-26 20:40] LABS: AMORPHOUS SEDIMENT,UR FEW AMOR PHOSPHATE /LPF; HYALINE CASTS, URINE RARE /LPF; SQUAMOUS EPITHELIAL CELL,UR RARE /HPF
[2020-11-26] MEDS ORDERED: HYOSCYAMINE 0.125 MG (LEVSIN) TAB PO ONE (21:00)
[2020-11-26] MEDS ORDERED: SCOPOLAMINE 1.5 MG (TRANSDERM-SCOP) PATCH TD ONE (21:00)
[2020-11-26] MEDS ORDERED: ACHD5005 PO (21:07)
[2020-11-26] MEDS ORDERED: HYOS0.1283 SL (21:07)
[2020-11-26] MEDS ORDERED: PANT40TA2 PO (21:07)
[2020-11-26] MEDS ORDERED: ONDA8TAB13 PO (21:07)
[2020-11-26] MEDS ORDERED: RX-HYOSCYAMINE 0.125 MG SL (LEVSIN) PPK#6 SL STA (21:29)
[2020-11-26] MEDS ORDERED: RX-HYDROCODONE/APAP 5/325 MG #4 TAB PK PO PRN (21:30)
[2020-11-26 21:44] VITALS: BP 141/68
== END 2020-11-26 21:44 | disposition home or self-care (01) ==
LOC: EDUNIT# 18:31 → ER 18:33
DX: K85.90 Acute pancreatitis without necrosis or infection, unspecified (principal); R00.0 Tachycardia, unspecified; I13.0 Hypertensive heart and chronic kidney disease with heart failure and stage 1 through stage 4 chronic kidney disease, or unspecified chronic kidney disease; E11.22 Type 2 diabetes mellitus with diabetic chronic kidney disease; N18.2 Chronic kidney disease, stage 2 (mild); I50.9 Heart failure, unspecified; I25.10 Atherosclerotic heart disease of native coronary artery without angina pectoris; E78.00 Pure hypercholesterolemia, unspecified; K21.9 Gastro-esophageal reflux disease without esophagitis; E11.40 Type 2 diabetes mellitus with diabetic neuropathy, unspecified; D50.9 Iron deficiency anemia, unspecified; G43.909 Migraine, unspecified, not intractable, without status migrainosus; G89.29 Other chronic pain; M54.9 Dorsalgia, unspecified; Z95.5 Presence of coronary angioplasty implant and graft; Z96.611 Presence of right artificial shoulder joint; Z86.718 Personal history of other venous thrombosis and embolism; Z99.2 Dependence on renal dialysis; Z85.3 Personal history of malignant neoplasm of breast; Z96.652 Presence of left artificial knee joint; Z88.8 Allergy status to other drugs, medicaments and biological substances; Z88.0 Allergy status to penicillin; Z88.6 Allergy status to analgesic agent; Z79.84 Long term (current) use of oral hypoglycemic drugs; Z86.16 Personal history of COVID-19
CPT/HCPCS: 74022; 74177; 80053; 81000; 82150; 83605; 83690; 83735; 84484; 85025; 85610; 85730; 87040; 93005; 93041; 99285; G0480; 36415; 80320

== ENCOUNTER 2020-11-28 13:19 | Emergency (ER) | payer MEDICARE ==
[~2020-11-28] VITALS: Ht 163 cm; Wt 77.0 kg
[~2020-11-28 13:19] MED LIST changes: +HYOS0.1283 SL; +PANT40TA2 PO
--- NOTE | 2020-11-28 13:53 | ED Abdominal Pain ---
General Stated Complaint: PANCRATIC ISSUES Source of Information: Patient Exam Limitations: No Limitations History of Present Illness Date Seen by Provider: Nov 28, 2020 Time Seen by Provider: 13:38 Initial Comments Patient presents ER by private conveyance from home with chief complaint that she recently had a implantable monitoring and evaluation advisor placed by Dr. Singh. His office called her this morning and told her there was some unusual findings and since she has a history of chronic pancreatitis and is always having epigastric abdominal pain he asked her to come to the ER to be checked out. She is not having any chest pain or shortness of air. She has had multiple surgeries on her abdomen related to adhesions and pancreatitis. She does not drink alcohol nor does she have diabetes or hypertriglyceridemia. Allergies and Home Medications Allergies Coded Allergies: clopidogrel (Verified Allergy, Severe, BLOOD CLOTS, 11/27/18) Penicillins (Verified Allergy, Mild, RASH, 11/27/18) carisoprodol (Verified Allergy, Mild, RASH, 11/27/18) cephalexin (Verified Allergy, Mild, RASH, 11/27/18) ketorolac (Verified Allergy, Mild, RASH, 11/27/18) prochlorperazine (Verified Allergy, Mild, RASH, 11/27/18) Carbamates (Verified Allergy, Unknown, Rash, 05/28/19) Home Medications Albuterol Sulfate 2.5 Mg/3 Ml Vial.neb, 2 PUFF INH Q4H PRN for SHORTNESS OF BREATH Prescribed by: DASIA FRANKLIN on 11/25/20 1101 Amlodipine Besylate 10 Mg Tablet, 10 MG PO DAILY, (Reported) Aspirin 81 Mg Tablet., 81 MG PO DAILY Prescribed by: OLIVE ISAAC on 11/21/20 1010 Atorvastatin Calcium 40 Mg Tablet, 40 MG PO HS, (Reported) Cholecalciferol (Vitamin D3) 50 Mcg Tablet, 50 MCG PO DAILY, (Reported) Codeine/Butalbital/ASA/Caffein 1 Each Capsule, 1 EACH PO DAILY PRN for MIGRAINE, (Reported) Duloxetine HCl 30 Mg Capsule.dr, 30 MG PO DAILY, (Reported) TAKE ALONG WITH 60MG CAP FOR A TOTAL DAILY DOSE OF 90MG Folic Acid 1 Mg Tablet, 1 MG PO DAILY, (Reported) Furosemide 40 Mg Tablet, 40 MG PO DAILY PRN for EDEMA Prescribed by: OLIVE ISAAC on 11/21/20 1010 Hydrocodone/Acetaminophen 1 Each Tablet, 1-2 EACH PO Q4-6 HOURS PRN for PAIN Prescribed by: RAPHAEL DUNCAN on 11/26/202106 Hydroxychloroquine Sulfate 200 Mg Tablet, 200 MG PO BID, (Reported) Hyoscyamine Sulfate 0.125 Mg Tab.subl, 0.25 MG SL Q4H Prescribed by: RAPHAEL DUNCAN on 11/26/202106 Levetiracetam 500 Mg Tablet, 500 MG PO BID Prescribed by: OLIVE ISAAC on 11/21/20 1010 Metoprolol Succinate 100 Mg Tab.er.24h, 100 MG PO DAILY, (Reported) Ondansetron 4 Mg Tab.rapdis, 4 MG PO Q4H PRN for NAUSEA-1ST LINE Prescribed by: DASIA FRANKLIN on 11/25/20 110 Ondansetron 8 Mg Tab.rapdis, 8 MG PO Q6H Prescribed by: RAPHAEL DUNCAN on 11/26/202106 Pantoprazole Sodium 40 Mg Tablet.dr, 40 MG PO DAILY, (Reported) Pantoprazole Sodium 40 Mg Tablet.dr, 40 MG PO DAILY Prescribed by: RAPHAEL DUNCAN on 11/26/202106 Topiramate 50 Mg Tablet, 75 MG PO BID, (Reported) TAKE 1 & 1/2 OF 50MG TAB Patient Home Medication List Home Medication List Reviewed: Yes Review of Systems Review of Systems Constitutional: No chills, No diaphoresis EENTM: No Blurred Vision, No Double Vision Respiratory: Denies Cough, Denies Shortness of Air Cardiovascular: Denies Chest Pain, Denies Irregular Heart Rate Gastrointestinal: Denies Abdominal Pain, Denies Constipated, Denies Diarrhea, Denies Nausea Genitourinary: Denies Burning, Denies Discharge Musculoskeletal: No back pain, No joint pain Skin: No pruritus, No rash Psychiatric/Neurological: Denies Anxiety, Denies Depressed All Other Systems Reviewed Negative Unless Noted: Yes Past Gfxsfyc-Ubmhgn-Oxhobm Hx Patient Social History Alcohol Use: Denies Use Drug of Choice: DENIES Smoking Status: Never a Smoker 2nd Hand Smoke Exposure: No Recent Hopitalizations: Yes (covid-19 on Nov 16) Immunizations Up To Date Tetanus Booster (TDap): Unknown Date of Pneumonia Vaccine: Jul 29, 2017 Date of Influenza Vaccine: Jun 30, 2020 Seasonal Allergies Seasonal Allergies: No Past Medical History Surgeries: Yes (R CTR, espohageal ligation x2, Hernia, L RCR, L TKR, laparotomy, MRSA infec) Abdominal, Breast, Cardiac, Coronary Stent, Hysterectomy, Joint Replacement, Oophorectomy, Orthopedic, Thyroidectomy Respiratory: Yes (COVID-19 November 07, 2020-ADMITTED WITH PNEUMONIA) Pneumonia Currently Using CPAP: No Currently Using BIPAP: No Cardiac: Yes (HX HEART CATH-STENT;MILD BILAT CAROTID STENOSIS;DVT L ARM DUE TO PICC LINE) Coronary Artery Disease, Deep Vein Thrombosis, Heart Attack, High Cholesterol, Hypertension, Peripheral Vascular Neurological: Yes Headaches /Migraines, Neuropathy 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, 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 Sexually Transmitted Disease: No HIV/AIDS: No Genitourinary: Yes (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,STAGE 2-KIDNEY DISEASE;DIABETIC NEPHROPA ) Bladder Infection, Renal Failure, Dialysis Gastrointestinal: Yes (HX GI BLEED, zenkers syndrome-chokes easily, hx hep A;LIVER INJURY/TRAUMA) Abdominal Hernia, Gastroesophageal Reflux, Gastrointestinal Bleed, Esophageal Varices, Hepatitis Musculoskeletal: Yes (OSTEOARTHRITIS, BULGING DISCS) Arthritis, Chronic Back Pain Endocrine: Yes (partial thyroidectomy) Diabetes, Insulin dep, Hypothyroidsim HEENT: Yes (GLASSES, UPPER DENTURES) Glaucoma Loss of Vision: Bilateral Cancer: Yes Breast Did You Recieve Any Treatments: Yes What Type of Treatment Did You: Radiation, Surgical Intervention Psychosocial: No Integumentary: No Blood Disorders: Yes (IRON DEFFICIENCY ANEMIA-GETS IRON INFUSIONS) Adverse Reaction/Blood Tranf: No (HAS HAD BLOOD WITH NO REACTION) Family Medical History Hypertension G8 BROTHER Not obtainable due to adoption 19 FATHER Heart Disease, Hypertension ADDITIONAL PAST SURGICAL HISTORY -ZENKER'S DIVERTICULUM SURGERY X 2 -ABDOMINAL HERNIA REPAIR WITH MESH -MESH REMOVAL AND LYSIS OF ADHESIONS -HYST/BSO -LOOP RECORDER -PORT LEFT CHEST -LEFT BREAST LUMPECTOMY -CARDIAC CATH WITH STENT X 1 TO RCA 2010 -PORT LEFT CHEST -RIGHT SHOULDER REPLACEMENT -RENAL ARTERY STENOSIS WITH STENT 2013 Physical Exam Vital Signs Capillary Refill : Height/Weight/BMI Height: 5'4.00" Weight: 216lbs. 4.2oz. 98.243981cw; 29.00 BMI Method:Stated General Appearance: WD/WN, mild distress HEENT: PERRL/EOMI, pharynx normal Neck: full range of motion, normal inspection Respiratory: lungs clear, normal breath sounds, no respiratory distress, no accessory muscle use Cardiovascular: normal peripheral pulses, regular rate, rhythm, no edema Peripheral Pulses: 2+ Radial Pulses (R), 2+ Radial Pulses (L) Gastrointestinal: normal bowel sounds, soft, tenderness (Epigastric region moderately tender to palpation) Extremities: normal range of motion, non-tender, normal capillary refill Neurologic/Psychiatric: alert, normal mood/affect, oriented x 3 Skin: normal color, warm/dry Progress/Results/Core Measures Results/Orders Lab Results Laboratory Tests Test 11/28/20 14:02 Range/Units White Blood Count 7.0 4.3-11.0 10^3/uL Red Blood Count 3.59 L 3.80-5.11 10^6/uL Hemoglobin 10.3 L 11.5-16.0 g/dL Hematocrit 32 L 35-52 % Mean Corpuscular Volume 90 80-99 fL Mean Corpuscular Hemoglobin 29 25-34 pg Mean Corpuscular Hemoglobin Concent 32 32-36 g/dL Red Cell Distribution Width 13.6 10.0-14.5 % Platelet Count 514 H 130-400 10^3/uL Mean Platelet Volume 9.1 9.0-12.2 fL Immature Granulocyte % (Auto) 1 % Neutrophils (%) (Auto) 61 42-75 % Lymphocytes (%) (Auto) 24 12-44 % Monocytes (%) (Auto) 11 0-12 % Eosinophils (%) (Auto) 3 0-10 % Basophils (%) (Auto) 1 0-10 % Neutrophils # (Auto) 4.3 1.8-7.8 10^3/uL Lymphocytes # (Auto) 1.7 1.0-4.0 10^3/uL Monocytes # (Auto) 0.8 0.0-1.0 10^3/uL Eosinophils # (Auto) 0.2 0.0-0.3 10^3/uL Basophils # (Auto) 0.0 0.0-0.1 10^3/uL Immature Granulocyte # (Auto) 0.0 0.0-0.1 10^3/uL Sodium Level 140 135-145 MMOL/L Potassium Level 3.9 3.6-5.0 MMOL/L Chloride Level 107 98-107 MMOL/L Carbon Dioxide Level 22 21-32 MMOL/L Anion Gap 11 5-14 MMOL/L Blood Urea Nitrogen 7 7-18 MG/DL Creatinine 1.11 0.60-1.30 MG/DL Estimat Glomerular Filtration Rate 48 BUN/Creatinine Ratio 6 Glucose Level 112 H 70-105 MG/DL Calcium Level 8.0 L 8.5-10.1 MG/DL Corrected Calcium 8.7 8.5-10.1 MG/DL Total Bilirubin 0.3 0.1-1.0 MG/DL Aspartate Amino Transf (AST/SGOT) 16 5-34 U/L Alanine Aminotransferase (ALT/SGPT) 11 0-55 U/L Alkaline Phosphatase 148 H 40-136 U/L C-Reactive Protein High Sensitivity 3.45 H 0.00-0.50 MG/DL Total Protein 6.4 6.4-8.2 GM/DL Albumin 3.1 L 3.2-4.5 GM/DL Amylase Level 39 25-125 U/L Lipase 106 H 8-78 U/L My Orders Orders - GUSTABO CARRINGTON Cbc With Automated Diff (11/28/20 13:49) Comprehensive Metabolic Panel (11/28/20 13:49) Hs C Reactive Protein (11/28/20 13:49) Lipase (11/28/20 13:49) Amylase (11/28/20 13:49) Continuous Ekg Monitoring (11/28/20 13:49) Ekg Tracing (11/28/20 13:49) Chest 1 View, Ap/Pa Only (11/28/20 13:49) Ondansetron Injection (Zofran Injectio (11/28/20 14:00) Fentanyl Injection (Sublimaze Injection (11/28/20 14:00) Pantoprazole Injection (Protonix Injecti (11/28/20 14:00) Fentanyl Injection (Sublimaze Injection (11/28/20 15:30) Medications Given in ED Current Medications Medications Dose Ordered Sig/Ana María Route Start Time Stop Time Status Last Admin Dose Admin Fentanyl Citrate 100 mcg ONCE ONCE IVP 11/28/20 14:00 11/28/20 14:01 DC 11/28/20 14:25 100 MCG Ondansetron HCl 8 mg ONCE ONCE IVP 11/28/20 14:00 11/28/20 14:01 DC 11/28/20 14:22 8 MG Pantoprazole 40 mg ONCE ONCE IV 11/28/20 14:00 11/28/20 14:01 DC 11/28/20 14:18 40 MG Progress Progress Note : Time: 14:37 Progress Note Amylase lipase chest x-ray and interrogate the pacemaker. She is not having any chest pain at this time. Initial ECG Impression Date: Nov 28, 2020 Initial ECG Impression Time: 14:02 Initial ECG Rate: 101 Initial ECG Rhythm: S.Tach Initial ECG Intervals: QT (477) Initial ECG Impression: Normal Comment Sinus tachycardia without clinically relevant ST elevation or depression. Diagnostic Imaging Diagonstic Imaging: Xray Plain Films/CT/US/NM/MRI: chest Comments NAME: KEO AGUIRRE [facility] REC#: [id number] PT STATUS: REG ER : [id number] PHYSICIAN: GUSTABO CARRINGTON MD ADMIT DATE: 11/28/20/ER Signed Date of Exam:11/28/20 CHEST 1 VIEW, AP/PA ONLY INDICATION: Epigastric pain. EXAMINATION: Portable chest at 2:58 PM. FINDINGS: The left subclavian Port-A-Cath tip projects over the SVC. The heart size is normal. There is bilateral perihilar atelectasis. IMPRESSION: Perihilar atelectasis. The overall aeration appears improved compared to 11/26/2020. Dictated by: Dictated on workstation # [id number] Dict: 11/28/20 1458 Trans: 11/28/20 1502 [id number] Interpreted by: IRMA KRAUSE MD Electronically signed by: IRMA KRAUSE MD 11/28/20 1502 Reviewed: Reviewed by Me Consults : Consulting Physician: ERWIN JI MD FACP FAC CCDS Consults Notes Discussed the case with Dr. Ji and he contacted Dr. Singh's office. The office said that they called her November 23, 5 days ago because she had tachycardia that appeared to be sinus but they wanted her to be checked out to make sure she was not septic apparently. The patient has no evidence of sepsis today. He would recommend that with a heart rate of 150 seen on the third and again for a brief period on the sixth it could be atrial flutter. He would recommend increasing her aspirin to 325 mg daily and have her follow-up Saturday or with Dr. Singh. He says if she has any palpitations or flutters she should return to the ER promptly. Departure Impression Primary Impression: Chronic pancreatitis Qualified Codes: K86.1 - Other chronic pancreatitis Additional Impression: Presence of cardiac and vascular implant and graft Disposition: HOME, SELF-CARE Condition: Stable Departure-Patient Inst. Decision time for Depature: 15:10 Referrals: [facility] [place] Primary Care Physician JAVIER MOSS (Family) Primary Care Physician ABBI SINGH MD Patient Instructions: Chronic Pancreatitis Add. Discharge Instructions: Continue taking your medications as prescribed. Increase your aspirin to 325 mg a day until you see your automotive upholsterer. Follow-up with Dr. Singh by calling for an appointment later this week. Return to the ER promptly if you experience chest pain or sustained palpitations or flutters in your heart. Follow-up with your primary care provider for your chronic pancreatitis. You may double up on your ondansetron if you not seeing results in the first 20 to 30 minutes. Copy Copies To 1: ABBI SINGH MD, TITUS J Nov 28, 2020 13:53
[2020-11-28] MEDS ORDERED: PANTOPRAZOLE 40 MG (PROTONIX) VIAL IV ONE (14:00)
[2020-11-28] MEDS ORDERED: ONDANSETRON 4 MG/2 ML (SDV) Z0FRAN IVP ONE (14:00)
[2020-11-28] MEDS ORDERED: fentaNYL INJECTION 100 MCG/2 ML AMP IVP ONE ×2 (14:00→15:30)
[2020-11-28 14:09] LABS: BASOPHILS % (AUTO) 1 % (0-10); EOSINOPHILS # (AUTO) 0.2 10^3/uL (0.0-0.3); EOSINOPHILS % (AUTO) 3 % (0-10); HEMATOCRIT 32 % (35-52); HEMOGLOBIN 10.3 g/dL (11.5-16.0); LYMPHOCYTES # (AUTO) 1.7 10^3/uL (1.0-4.0); LYMPHOCYTES % (AUTO) 24 % (12-44); MEAN CORPUSCULAR HEMOGLOBIN 29 pg (25-34); MEAN CORPUSCULAR HGB CONC 32 g/dL (32-36); MEAN CORPUSCULAR VOLUME 90 fL (80-99); MEAN PLATELET VOLUME 9.1 fL (9.0-12.2); MONOCYTES # (AUTO) 0.8 10^3/uL (0.0-1.0); MONOCYTES % (AUTO) 11 % (0-12); NEUTROPHILS # (AUTO) 4.3 10^3/uL (1.8-7.8); NEUTROPHILS % (AUTO) 61 % (42-75); PLATELET COUNT 514 10^3/uL (130-400)
[2020-11-28 14:23] LABS: ALBUMIN 3.1 GM/DL (3.2-4.5); POTASSIUM 3.9 MMOL/L (3.6-5.0)
[2020-11-28 14:25] LABS: TOTAL PROTEIN 6.4 GM/DL (6.4-8.2)
[2020-11-28 14:27] LABS: BILIRUBIN,TOTAL 0.3 MG/DL (0.1-1.0)
[2020-11-28 14:29] LABS: CREATININE SERUM 1.11 MG/DL (0.60-1.30)
--- NOTE | 2020-11-28 14:42 | NUR ---
[employer] CARDIAC INTERRIGATION PERFORMED AND REPORT RECEIVED.
--- NOTE | 2020-11-28 15:00 | Diagnostic Imaging Report ---
INDICATION: Epigastric pain. EXAMINATION: Portable chest at 2:58 PM. FINDINGS: The left subclavian Port-A-Cath tip projects over the SVC. The heart size is normal. There is bilateral perihilar atelectasis. IMPRESSION: Perihilar atelectasis. The overall aeration appears improved compared to 11/26/2020. Dictated by: Dictated on workstation # [id number]
[2020-11-28 15:51] VITALS: BP 142/88
== END 2020-11-28 15:51 | disposition home or self-care (01) ==
LOC: EDUNIT# 13:19 → ER 13:22
DX: K86.1 Other chronic pancreatitis (principal); G89.29 Other chronic pain; M54.9 Dorsalgia, unspecified; K21.9 Gastro-esophageal reflux disease without esophagitis; I10 Essential (primary) hypertension; I25.2 Old myocardial infarction; E78.00 Pure hypercholesterolemia, unspecified; I25.10 Atherosclerotic heart disease of native coronary artery without angina pectoris; Z85.3 Personal history of malignant neoplasm of breast; Z95.9 Presence of cardiac and vascular implant and graft, unspecified; Z95.5 Presence of coronary angioplasty implant and graft; Z88.0 Allergy status to penicillin; Z88.1 Allergy status to other antibiotic agents; Z88.6 Allergy status to analgesic agent; Z88.8 Allergy status to other drugs, medicaments and biological substances; Z82.49 Family history of ischemic heart disease and other diseases of the circulatory system; Z79.82 Long term (current) use of aspirin; Z79.891 Long term (current) use of opiate analgesic
CPT/HCPCS: 36415; 71045; 80053; 82150; 83690; 85025; 86141; 93005

== ENCOUNTER → 2020-11-29 | Outpatient (CLI) | payer MEDICARE ==
--- NOTE | 2020-11-29 10:55 | Diagnostic Imaging Report ---
INDICATION: Epigastric pain. COMPARISON: 11/26/2020 and 11/24/2020. FINDINGS: The examination is significantly limited secondary to overlying bowel gas and patient body habitus. The visualized portions of the liver are unremarkable. The left hepatic lobe was not optimally visualized. Normal direction of flow within the main portal vein. The gallbladder is unremarkable without evidence of gallstones, gallbladder wall thickening, or pericholecystic fluid. The common bile duct was unable to be visualized. The pancreas was obscured by overlying bowel gas. The spleen is unremarkable. The abdominal aorta and inferior vena cava were obscured by overlying bowel gas. The right kidney measures 10.7 x 5.1 x 6.2 cm. A 2.3 cm simple appearing cyst is noted within the right kidney. The right kidney is otherwise unremarkable. The left kidney measures 9.5 x 3.9 x 5.6 cm. A 3.2 x 1.7 cm cluster of anechoic cysts is noted within the mid aspect of the left kidney laterally. The left kidney is otherwise unremarkable. No significant free fluid. Negative sonographic Whiting sign. IMPRESSION: Cluster of benign-appearing cysts within the lateral left mid kidney correspond to the previously noted proteinaceous hyperdense cyst. Benign cyst within the right kidney. No acute abnormality although the examination is limited as described above. Dictated by: Dictated on workstation # [id number]
== END ==
LOC: RAD 08:30
PROVIDERS: ATTEND Emergency Medicine
DX: N28.1 Cyst of kidney, acquired (principal)
CPT/HCPCS: 76700

== ENCOUNTER 2020-12-02 13:51 | Emergency (ER) | payer MEDICARE ==
[~2020-12-02] VITALS: Ht 162.5 cm; Wt 74.8 kg
[~2020-12-02 13:51] MED LIST changes: +BUTA-235 PO; -BUTA1TAB9 PO; -OXYC-471 PO; +OXYC1TAB11 PO
[2020-12-02 14:27] LABS: HEMATOCRIT 33 % (35-52); HEMOGLOBIN 10.5 g/dL (11.5-16.0); MEAN CORPUSCULAR HEMOGLOBIN 29 pg (25-34); MEAN CORPUSCULAR HGB CONC 32 g/dL (32-36); MEAN CORPUSCULAR VOLUME 91 fL (80-99); MEAN PLATELET VOLUME 9.2 fL (9.0-12.2); PLATELET COUNT 466 10^3/uL (130-400); WHITE BLOOD COUNT 7.2 10^3/uL (4.3-11.0)
[2020-12-02 14:28] LABS: BASOPHILS % (AUTO) 0 % (0-10); EOSINOPHILS # (AUTO) 0.2 10^3/uL (0.0-0.3); EOSINOPHILS % (AUTO) 3 % (0-10); LYMPHOCYTES # (AUTO) 1.8 10^3/uL (1.0-4.0); LYMPHOCYTES % (AUTO) 26 % (12-44); MONOCYTES # (AUTO) 0.7 10^3/uL (0.0-1.0); MONOCYTES % (AUTO) 10 % (0-12); NEUTROPHILS # (AUTO) 4.3 10^3/uL (1.8-7.8); NEUTROPHILS % (AUTO) 61 % (42-75)
[2020-12-02 14:30] LABS: ALBUMIN 3.4 GM/DL (3.2-4.5)
[2020-12-02] MEDS ORDERED: PANTOPRAZOLE 40 MG (PROTONIX) VIAL IV ONE (14:30)
[2020-12-02] MEDS ORDERED: LACTATED RINGERS 1,000 ML IV ONE (14:30)
[2020-12-02] MEDS ORDERED: ONDANSETRON 4 MG/2 ML (SDV) Z0FRAN IVP ONE (14:30)
[2020-12-02] MEDS ORDERED: fentaNYL INJECTION 100 MCG/2 ML AMP IVP ONE (14:30)
[2020-12-02 14:31] LABS: POTASSIUM 3.8 MMOL/L (3.6-5.0)
[2020-12-02 14:32] LABS: CALCIUM 8.1 MG/DL (8.5-10.1)
--- NOTE | 2020-12-02 14:32 | ED Abdominal Pain ---
General Chief Complaint: Abdominal/GI Problems Stated Complaint: PANCREATITIS ATTACK Nursing Triage Note: PT AMB TO RM 6 WITH COMPLAINT OF UPPER ABD PAIN. PT WAS RECENTLY ADMITTED AND SEEN IN THE ER MULTIPLE TIMES FOR PANCREATITIS. STATES SHE WENT TO PCP ON SATURDAY AND HAD HYDROCODONE INCREASED TO 7.5 AND ZOFRAN INCREASED TO 8 MG. STATES HAS ABD US ON SATURDAY AND HAS NOT RECEIVED THE RESULTS. Sepsis Screen: No Definite Risk Source of Information: Patient Exam Limitations: No Limitations History of Present Illness Date Seen by Provider: Dec 02, 2020 Time Seen by Provider: 14:16 Initial Comments Patient presents ER by private conveyance from home chief complaint of continuous epigastric abdominal pain for the past few weeks. She says it is not necessarily any worse however she had her hydrocodone recently turned up from 5 to 7.5 mg every 6 hours and took 2 tablets of ondansetron 4 mg each without significant relief of her nausea or pain. She vomited once for coming in. No fever or chills. Javier Moulton managing her and sending her to a GI specialist next week in [place] but she does not know the name yet. Rates her pain is moderate severe nonradiating to her back. Had an ultrasound of her gallbladder on Saturday and has not received the results yet. Allergies and Home Medications Allergies Coded Allergies: clopidogrel (Verified Allergy, Severe, BLOOD CLOTS, 11/27/18) Penicillins (Verified Allergy, Mild, RASH, 11/27/18) carisoprodol (Verified Allergy, Mild, RASH, 11/27/18) cephalexin (Verified Allergy, Mild, RASH, 11/27/18) ketorolac (Verified Allergy, Mild, RASH, 11/27/18) prochlorperazine (Verified Allergy, Mild, RASH, 11/27/18) Carbamates (Verified Allergy, Unknown, Rash, 05/28/19) Home Medications Albuterol Sulfate 2.5 Mg/3 Ml Vial.neb, 2 PUFF INH Q4H PRN for SHORTNESS OF BREATH Prescribed by: DASIA FRANKLIN on 11/25/20 1101 Amlodipine Besylate 10 Mg Tablet, 10 MG PO DAILY, (Reported) Aspirin 81 Mg Tablet.dr, 81 MG PO DAILY Prescribed by: OLIVE ISAAC on 11/21/20 1010 Atorvastatin Calcium 40 Mg Tablet, 40 MG PO HS, (Reported) Cholecalciferol (Vitamin D3) 50 Mcg Tablet, 50 MCG PO DAILY, (Reported) Codeine/Butalbital/ASA/Caffein 1 Each Capsule, 1 EACH PO DAILY PRN for MIGRAINE, (Reported) Duloxetine HCl 30 Mg Capsule.dr, 30 MG PO DAILY, (Reported) TAKE ALONG WITH 60MG CAP FOR A TOTAL DAILY DOSE OF 90MG Folic Acid 1 Mg Tablet, 1 MG PO DAILY, (Reported) Furosemide 40 Mg Tablet, 40 MG PO DAILY PRN for EDEMA Prescribed by: OLIVE ISAAC on 11/21/20 1010 Hydrocodone/Acetaminophen 1 Each Tablet, 1-2 EACH PO Q4-6 HOURS PRN for PAIN Prescribed by: RAPHAEL DUNCAN on 11/26/202106 Hydroxychloroquine Sulfate 200 Mg Tablet, 200 MG PO BID, (Reported) Hyoscyamine Sulfate 0.125 Mg Tab.subl, 0.25 MG SL Q4H Prescribed by: RAPHAEL DUNCAN on 11/26/202106 Levetiracetam 500 Mg Tablet, 500 MG PO BID Prescribed by: OLIVE ISAAC on 11/21/20 1010 Metoprolol Succinate 100 Mg Tab.er.24h, 100 MG PO DAILY, (Reported) Ondansetron 4 Mg Tab.rapdis, 4 MG PO Q4H PRN for NAUSEA-1ST LINE Prescribed by: DASIA FRANKLIN on 11/25/20 1101 Ondansetron 8 Mg Tab.rapdis, 8 MG PO Q6H Prescribed by: RAPHAEL DUNCAN on 11/26/202106 Pantoprazole Sodium 40 Mg Tablet.dr, 40 MG PO DAILY, (Reported) Pantoprazole Sodium 40 Mg Tablet.dr, 40 MG PO DAILY Prescribed by: RAPHAEL DUNCAN on 11/26/202106 Topiramate 50 Mg Tablet, 75 MG PO BID, (Reported) TAKE 1 & 1/2 OF 50MG TAB Patient Home Medication List Home Medication List Reviewed: Yes Review of Systems Review of Systems Constitutional: No chills, No diaphoresis EENTM: No Blurred Vision, No Double Vision Respiratory: Denies Cough, Denies Shortness of Air Cardiovascular: Denies Chest Pain, Denies Lightheadedness Gastrointestinal: See HPI, Abdominal Pain; Denies Constipated, Denies Diarrhea; Nausea, Vomiting Genitourinary: Denies Burning, Denies Discharge Musculoskeletal: No back pain, No joint pain All Other Systems Reviewed Negative Unless Noted: Yes Past Edhamly-Gfdmhg-Gcvwlk Hx Patient Social History Alcohol Use: Denies Use Drug of Choice: DENIES Smoking Status: Never a Smoker 2nd Hand Smoke Exposure: No Recent Infectious Disease Expo: No Recent Hopitalizations: Yes (covid-19 on Nov 16) Immunizations Up To Date Tetanus Booster (TDap): Unknown Date of Pneumonia Vaccine: Jul 29, 2017 Date of Influenza Vaccine: Jun 30, 2020 Seasonal Allergies Seasonal Allergies: No Past Medical History Surgeries: Yes (R CTR, espohageal ligation x2, Hernia, L RCR, L TKR, laparotomy, MRSA infec) Abdominal, Breast, Cardiac, Coronary Stent, Hysterectomy, Joint Replacement, Oophorectomy, Orthopedic, Thyroidectomy Respiratory: Yes (COVID-19 November 07, 2020-ADMITTED WITH PNEUMONIA) Pneumonia Currently Using CPAP: No Currently Using BIPAP: No Cardiac: Yes (HX HEART CATH-STENT;MILD BILAT CAROTID STENOSIS;DVT L ARM DUE TO PICC LINE) Coronary Artery Disease, Deep Vein Thrombosis, Heart Attack, High Cholesterol, Hypertension, Peripheral Vascular Neurological: Yes Headaches /Migraines, Neuropathy [employer] History: Hysterectomy, Menopausal Sexually Transmitted Disease: No HIV/AIDS: No Genitourinary: Yes (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,STAGE 2-KIDNEY DISEASE;DIABETIC NEPHROPA ) Bladder Infection, Renal Failure, Dialysis Gastrointestinal: Yes (HX GI BLEED, zenkers syndrome-chokes easily, hx hep A;LIVER INJURY/TRAUMA) Abdominal Hernia, Gastroesophageal Reflux, Gastrointestinal Bleed, Esophageal Varices, Hepatitis Musculoskeletal: Yes (OSTEOARTHRITIS, BULGING DISCS) Arthritis, Chronic Back Pain Endocrine: Yes (partial thyroidectomy) Diabetes, Insulin dep, Hypothyroidsim HEENT: Yes (GLASSES, UPPER DENTURES) Glaucoma Loss of Vision: Bilateral Cancer: Yes Breast Did You Recieve Any Treatments: Yes What Type of Treatment Did You: Radiation, Surgical Intervention Psychosocial: No Integumentary: No Blood Disorders: Yes (IRON DEFFICIENCY ANEMIA-GETS IRON INFUSIONS) Adverse Reaction/Blood Tranf: No (HAS HAD BLOOD WITH NO REACTION) Family Medical History Hypertension G8 BROTHER Not obtainable due to adoption 19 FATHER Heart Disease, Hypertension ADDITIONAL PAST SURGICAL HISTORY -ZENKER'S DIVERTICULUM SURGERY X 2 -ABDOMINAL HERNIA REPAIR WITH MESH -MESH REMOVAL AND LYSIS OF ADHESIONS -HYST/BSO -LOOP RECORDER -PORT LEFT CHEST -LEFT BREAST LUMPECTOMY -CARDIAC CATH WITH STENT X 1 TO RCA 2010 -PORT LEFT CHEST -RIGHT SHOULDER REPLACEMENT -RENAL ARTERY STENOSIS WITH STENT 2013 Physical Exam Vital Signs Vital Signs - First Documented 12/02/20 14:02 Temp 36.6 Pulse 126 Resp 22 B/P (MAP) 182/101 (128) Pulse Ox 93 O2 Delivery Room Air O2 Flow Rate 3.00 Capillary Refill : Less Than 3 Seconds Height/Weight/BMI Height: 5'4.00" Weight: 216lbs. 4.2oz. 98.755153wh; 28.00 BMI Method:Stated General Appearance: WD/WN, mild distress HEENT: PERRL/EOMI, pharynx normal Neck: full range of motion, normal inspection Respiratory: lungs clear, normal breath sounds, no respiratory distress, no accessory muscle use Cardiovascular: normal peripheral pulses, regular rate, rhythm Peripheral Pulses: 2+ Radial Pulses (R), 2+ Radial Pulses (L) Gastrointestinal: normal bowel sounds, soft, tenderness (Mild tenderness epigastric without Whiting sign or mesenteric signs) Extremities: normal range of motion, normal capillary refill Back: normal inspection Neurologic/Psychiatric: alert, oriented x 3 Skin: normal color, warm/dry Progress/Results/Core Measures Results/Orders Lab Results Laboratory Tests Test 12/02/20 14:12 Range/Units White Blood Count 7.2 4.3-11.0 10^3/uL Red Blood Count 3.64 L 3.80-5.11 10^6/uL Hemoglobin 10.5 L 11.5-16.0 g/dL Hematocrit 33 L 35-52 % Mean Corpuscular Volume 91 80-99 fL Mean Corpuscular Hemoglobin 29 25-34 pg Mean Corpuscular Hemoglobin Concent 32 32-36 g/dL Red Cell Distribution Width 14.4 10.0-14.5 % Platelet Count 466 H 130-400 10^3/uL Mean Platelet Volume 9.2 9.0-12.2 fL Immature Granulocyte % (Auto) 0 % Neutrophils (%) (Auto) 61 42-75 % Lymphocytes (%) (Auto) 26 12-44 % Monocytes (%) (Auto) 10 0-12 % Eosinophils (%) (Auto) 3 0-10 % Basophils (%) (Auto) 0 0-10 % Neutrophils # (Auto) 4.3 1.8-7.8 10^3/uL Lymphocytes # (Auto) 1.8 1.0-4.0 10^3/uL Monocytes # (Auto) 0.7 0.0-1.0 10^3/uL Eosinophils # (Auto) 0.2 0.0-0.3 10^3/uL Basophils # (Auto) 0.0 0.0-0.1 10^3/uL Immature Granulocyte # (Auto) 0.0 0.0-0.1 10^3/uL Sodium Level 143 135-145 MMOL/L Potassium Level 3.8 3.6-5.0 MMOL/L Chloride Level 111 H 98-107 MMOL/L Carbon Dioxide Level 21 21-32 MMOL/L Anion Gap 11 5-14 MMOL/L Blood Urea Nitrogen 8 7-18 MG/DL Creatinine 1.43 H 0.60-1.30 MG/DL Estimat Glomerular Filtration Rate 36 BUN/Creatinine Ratio 6 Glucose Level 154 H 70-105 MG/DL Calcium Level 8.1 L 8.5-10.1 MG/DL Corrected Calcium 8.6 8.5-10.1 MG/DL Total Bilirubin 0.2 0.1-1.0 MG/DL Aspartate Amino Transf (AST/SGOT) 13 5-34 U/L Alanine Aminotransferase (ALT/SGPT) 7 0-55 U/L Alkaline Phosphatase 130 40-136 U/L C-Reactive Protein High Sensitivity 0.48 0.00-0.50 MG/DL Total Protein 6.7 6.4-8.2 GM/DL Albumin 3.4 3.2-4.5 GM/DL Lipase 80 H 8-78 U/L My Orders Orders - GUSTABO CARRINGTON Ed Iv/Invasive Line Start (12/02/20 14:20) Lactated Ringers (Lr 1000 Ml Iv Solution (12/02/20 14:30) Cbc With Automated Diff (12/02/20 14:20) Comprehensive Metabolic Panel (12/02/20 14:20) Hs C Reactive Protein (12/02/20 14:20) Lipase (12/02/20 14:20) Pantoprazole Injection (Protonix Injecti (12/02/20 14:30) Fentanyl Injection (Sublimaze Injection (12/02/20 14:30) Ondansetron Injection (Zofran Injectio (12/02/20 14:30) Medications Given in ED Current Medications Medications Dose Ordered Sig/Ana María Route Start Time Stop Time Status Last Admin Dose Admin Fentanyl Citrate 50 mcg ONCE ONCE IVP 12/02/20 14:30 12/02/20 14:31 DC 12/02/20 14:33 50 MCG Lactated Ringer's 1,000 ml @ 0 mls/hr Q0M ONCE IV 12/02/20 14:30 12/02/20 14:31 DC 12/02/20 14:32 0 MLS/HR Ondansetron HCl 8 mg ONCE ONCE IVP 12/02/20 14:30 12/02/20 14:31 DC 12/02/20 14:33 8 MG Pantoprazole 40 mg ONCE ONCE IV 12/02/20 14:30 12/02/20 14:31 DC 12/02/20 14:33 40 MG Vital Signs/I&O 12/02/20 14:02 Temp 36.6 Pulse 126 Resp 22 B/P (MAP) 182/101 (128) Pulse Ox 93 O2 Delivery Room Air O2 Flow Rate 3.00 Blood Pressure Mean: 128 Progress Progress Note #1: Time: 14:39 Progress Note Fentanyl for her pain, ondansetron IV for her nausea. Liter of fluids and some labs. Moderate abdominal exam. The ultrasound is reviewed from a couple days ago and does not show any evidence of cholecystitis or cholelithiasis. She would benefit from follow-up through a GI doctor. Progress Note #2: Time: 14:59 Progress Note We shared the results of her ultrasound and labs with her. She has chronic pancreatitis and needs to see a GI doctor. She has a referral and will call and make the appointment on Saturday. She is significantly improved in terms of pain and her nausea is gone. We are going to allow her to finish her IV fluids and go home. We have offered a more potent opiate and she has declined stating that the 7.5 hydrocodone will be fine for now. She says she has plenty of that and Zofran. Diagnostic Imaging Diagonstic Imaging: Ultrasound Plain Films/CT/US/NM/MRI: abdomen Comments [facility] [place], [place] NAME: KEO AGUIRRE [facility] REC#: [id number] PT STATUS: REG CLI : 1950 PHYSICIAN: RAPHAEL DUNCAN DO ADMIT DATE: 11/29/20/RAD Signed Date of Exam:11/29/20 US ABDOMEN COMPLETE [id number] INDICATION: Epigastric pain. COMPARISON: 11/26/2020 and 11/24/2020. FINDINGS: The examination is significantly limited secondary to overlying bowel gas and patient body habitus. The visualized portions of the liver are unremarkable. The left hepatic lobe was not optimally visualized. Normal direction of flow within the main portal vein. The gallbladder is unremarkable without evidence of gallstones, gallbladder wall thickening, or pericholecystic fluid. The common bile duct was unable to be visualized. The pancreas was obscured by overlying bowel gas. The spleen is unremarkable. The abdominal aorta and inferior vena cava were obscured by overlying bowel gas. The right kidney measures 10.7 x 5.1 x 6.2 cm. A 2.3 cm simple appearing cyst is noted within the right kidney. The right kidney is otherwise unremarkable. The left kidney measures 9.5 x 3.9 x 5.6 cm. A 3.2 x 1.7 cm cluster of anechoic cysts is noted within the mid aspect of the left kidney laterally. The left kidney is otherwise unremarkable. No significant free fluid. Negative sonographic Whiting sign. IMPRESSION: Cluster of benign-appearing cysts within the lateral left mid kidney correspond to the previously noted proteinaceous hyperdense cyst. Benign cyst within the right kidney. No acute abnormality although the examination is limited as described above. Dictated by: Dictated on workstation # [id number] Dict: 11/29/20 1035 Trans: 11/29/20 1348 [id number] Interpreted by: DAVID CARL MD Electronically signed by: DAVID CARL MD 11/29/20 1348 Reviewed: Reviewed by Me Departure Impression Primary Impression: Subacute pancreatitis Disposition: 01 HOME, SELF-CARE Condition: Improved Departure-Patient Inst. Decision time for Depature: 15:00 Referrals: [facility] (PCP) Primary Care Physician JAVIER MOULTON (Family) Primary Care Physician Patient Instructions: Pancreatitis (DC) Add. Discharge Instructions: Continue to take the hydrocodone and Zofran as prescribed. Follow-up with the GI doctor. Return to the ER for significantly worsening symptoms. All discharge instructions reviewed with patient and/or family. Voiced understanding. GUSTABO CARRINGTON Dec 02, 2020 14:32
[2020-12-02 14:33] LABS: TOTAL PROTEIN 6.7 GM/DL (6.4-8.2)
[2020-12-02 14:35] LABS: BILIRUBIN,TOTAL 0.2 MG/DL (0.1-1.0)
[2020-12-02 14:37] LABS: CREATININE SERUM 1.43 MG/DL (0.60-1.30)
[2020-12-02] MEDS ORDERED: HEParin (CENTRAL IV FLUSH) 500 UNIT/5 ML SYR ONE (15:59)
[2020-12-02 16:01] VITALS: BP 158/84
[2020-12-02] MEDS ORDERED: HEParin (CENTRAL IV FLUSH) 500 UNIT/5 ML SYR IV ONE (16:15)
== END 2020-12-02 16:01 | disposition home or self-care (01) ==
LOC: EDUNIT# 13:51 → ER 13:53
DX: K85.90 Acute pancreatitis without necrosis or infection, unspecified (principal); K21.9 Gastro-esophageal reflux disease without esophagitis; E78.00 Pure hypercholesterolemia, unspecified; I25.10 Atherosclerotic heart disease of native coronary artery without angina pectoris; I10 Essential (primary) hypertension; I25.2 Old myocardial infarction; G89.29 Other chronic pain; M54.9 Dorsalgia, unspecified; Z88.0 Allergy status to penicillin; Z88.1 Allergy status to other antibiotic agents; Z88.6 Allergy status to analgesic agent; Z88.8 Allergy status to other drugs, medicaments and biological substances; Z95.9 Presence of cardiac and vascular implant and graft, unspecified; Z95.5 Presence of coronary angioplasty implant and graft; Z85.3 Personal history of malignant neoplasm of breast; Z82.49 Family history of ischemic heart disease and other diseases of the circulatory system; Z79.82 Long term (current) use of aspirin; Z79.891 Long term (current) use of opiate analgesic
CPT/HCPCS: 36415; 80053; 83690; 85025; 86141

== ENCOUNTER 2020-12-13 17:38 | Emergency (ER) | payer MEDICARE ==
[~2020-12-13] VITALS: Ht 162 cm; Wt 74.0 kg
--- NOTE | 2020-12-13 18:06 | ED GI ---
General Chief Complaint: Abdominal/GI Problems Stated Complaint: ELEV BS/HEADACHE Source of Information: Patient Exam Limitations: No Limitations History of Present Illness Date Seen by Provider: Dec 13, 2020 Time Seen by Provider: 17:55 Initial Comments This is a 70 yo female who presented to ED via POV with c/o epigastric pain that started this morning. She attributes to chronic pancreatitis. States she took her home Zofran and Hydrocodone today with no relief. States she has intermittent episodes of this and has been working with her primary care as well as mobility specialist to reduce exacerbations. States she was just seen by her mobility specialist and was told to stop taking her statin to see if this would help reduce the frequency of her symptoms. Reports pain 9 out of 10, sharp, localized to the epigastric region and is the same as prior episodes of acute and subacute pancreatitis. She denies fevers,chills, cough, shortness of breath, diarrhea. Allergies and Home Medications Allergies Coded Allergies: clopidogrel (Verified Allergy, Severe, BLOOD CLOTS, 11/27/18) Penicillins (Verified Allergy, Mild, RASH, 11/27/18) carisoprodol (Verified Allergy, Mild, RASH, 11/27/18) cephalexin (Verified Allergy, Mild, RASH, 11/27/18) ketorolac (Verified Allergy, Mild, RASH, 11/27/18) prochlorperazine (Verified Allergy, Mild, RASH, 11/27/18) Carbamates (Verified Allergy, Unknown, Rash, 05/28/19) Home Medications Albuterol Sulfate 2.5 Mg/3 Ml Vial.neb, 2 PUFF INH Q4H PRN for SHORTNESS OF BREATH Prescribed by: DASIA FRANKLIN on 11/25/20 1101 Amlodipine Besylate 10 Mg Tablet, 10 MG PO DAILY, (Reported) Aspirin 81 Mg Tablet., 81 MG PO DAILY Prescribed by: OLIVE ISAAC on 11/21/20 1010 Atorvastatin Calcium 40 Mg Tablet, 40 MG PO HS, (Reported) Cholecalciferol (Vitamin D3) 50 Mcg Tablet, 50 MCG PO DAILY, (Reported) Codeine/Butalbital/ASA/Caffein 1 Each Capsule, 1 EACH PO DAILY PRN for MIGRAINE, (Reported) Duloxetine HCl 30 Mg Capsule.dr, 30 MG PO DAILY, (Reported) TAKE ALONG WITH 60MG CAP FOR A TOTAL DAILY DOSE OF 90MG Folic Acid 1 Mg Tablet, 1 MG PO DAILY, (Reported) Furosemide 40 Mg Tablet, 40 MG PO DAILY PRN for EDEMA Prescribed by: OLIVE ISAAC on 11/21/20 1010 Hydrocodone/Acetaminophen 1 Each Tablet, 1-2 EACH PO Q4-6 HOURS PRN for PAIN Prescribed by: RAPHAEL DUNCAN on 11/26/202106 Hydroxychloroquine Sulfate 200 Mg Tablet, 200 MG PO BID, (Reported) Hyoscyamine Sulfate 0.125 Mg Tab.subl, 0.25 MG SL Q4H Prescribed by: RAPHAEL DUNCAN on 11/26/202106 Levetiracetam 500 Mg Tablet, 500 MG PO BID Prescribed by: OLIVE ISAAC on 11/21/20 1010 Metoprolol Succinate 100 Mg Tab.er.24h, 100 MG PO DAILY, (Reported) Ondansetron 4 Mg Tab.rapdis, 4 MG PO Q4H PRN for NAUSEA-1ST LINE Prescribed by: DASIA FRANKLIN on 11/25/20 1101 Ondansetron 8 Mg Tab.rapdis, 8 MG PO Q6H Prescribed by: RAPHAEL DUNCAN on 11/26/202106 Pantoprazole Sodium 40 Mg Tablet.dr, 40 MG PO DAILY, (Reported) Pantoprazole Sodium 40 Mg Tablet.dr, 40 MG PO DAILY Prescribed by: RAPHAEL DUNCAN on 11/26/202106 Topiramate 50 Mg Tablet, 75 MG PO BID, (Reported) TAKE 1 & 1/2 OF 50MG TAB Patient Home Medication List Home Medication List Reviewed: Yes Review of Systems Review of Systems Constitutional: no symptoms reported EENTM: No Symptoms Reported Respiratory: No Symptoms Reported Cardiovascular: No Symptoms Reported Gastrointestinal: See HPI; Denies Abdomen Distended Genitourinary: No Symptoms Reported Musculoskeletal: no symptoms reported Skin: no symptoms reported Psychiatric/Neurological: Headache Endocrine: No Symptoms Reported Hematologic/Lymphatic: No Symptoms Reported Past Guyrmaz-Kyrsbe-Nfyjug Hx Patient Social History Alcohol Use: Denies Use Drug of Choice: DENIES Smoking Status: Never a Smoker 2nd Hand Smoke Exposure: No Recent Hopitalizations: Yes (covid-19 on Nov 16) Immunizations Up To Date Tetanus Booster (TDap): Unknown Date of Pneumonia Vaccine: Jul 29, 2017 Date of Influenza Vaccine: Jun 30, 2020 Seasonal Allergies Seasonal Allergies: No Past Medical History Surgeries: Yes (R CTR, espohageal ligation x2, Hernia, L RCR, L TKR, laparotomy, MRSA infec) Abdominal, Breast, Cardiac, Coronary Stent, Hysterectomy, Joint Replacement, Oophorectomy, Orthopedic, Thyroidectomy Respiratory: Yes (COVID-19 November 07, 2020-ADMITTED WITH PNEUMONIA) Pneumonia Currently Using CPAP: No Currently Using BIPAP: No Cardiac: Yes (HX HEART CATH-STENT;MILD BILAT CAROTID STENOSIS;DVT L ARM DUE TO PICC LINE) Coronary Artery Disease, Deep Vein Thrombosis, Heart Attack, High Cholesterol, Hypertension, Peripheral Vascular Neurological: Yes Headaches /Migraines, Neuropathy [employer] History: Hysterectomy, Menopausal Sexually Transmitted Disease: No HIV/AIDS: No Genitourinary: Yes (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,STAGE 2-KIDNEY DISEASE;DIABETIC NEPHROPA ) Bladder Infection, Renal Failure, Dialysis Gastrointestinal: Yes (HX GI BLEED, zenkers syndrome-chokes easily, hx hep A;LIVER INJURY/TRAUMA) Abdominal Hernia, Gastroesophageal Reflux, Gastrointestinal Bleed, Esophageal Varices, Hepatitis Musculoskeletal: Yes (OSTEOARTHRITIS, BULGING DISCS) Arthritis, Chronic Back Pain Endocrine: Yes (partial thyroidectomy) Diabetes, Insulin dep, Hypothyroidsim HEENT: Yes (GLASSES, UPPER DENTURES) Glaucoma Loss of Vision: Bilateral Cancer: Yes Breast Did You Recieve Any Treatments: Yes What Type of Treatment Did You: Radiation, Surgical Intervention Psychosocial: No Integumentary: No Blood Disorders: Yes (IRON DEFFICIENCY ANEMIA-GETS IRON INFUSIONS) Adverse Reaction/Blood Tranf: No (HAS HAD BLOOD WITH NO REACTION) Family Medical History Hypertension G8 BROTHER Not obtainable due to adoption 19 FATHER Heart Disease, Hypertension ADDITIONAL PAST SURGICAL HISTORY -ZENKER'S DIVERTICULUM SURGERY X 2 -ABDOMINAL HERNIA REPAIR WITH MESH -MESH REMOVAL AND LYSIS OF ADHESIONS -HYST/BSO -LOOP RECORDER -PORT LEFT CHEST -LEFT BREAST LUMPECTOMY -CARDIAC CATH WITH STENT X 1 TO RCA 2010 -PORT LEFT CHEST -RIGHT SHOULDER REPLACEMENT -RENAL ARTERY STENOSIS WITH STENT 2013 Physical Exam Vital Signs Vital Signs - First Documented 12/13/20 17:55 Temp 36.5 Pulse 118 Resp 20 B/P (MAP) 148/74 (98) Pulse Ox 96 O2 Delivery Room Air Capillary Refill : Height/Weight/BMI Height: 5'4.00" Weight: 216lbs. 4.2oz. 98.196182es; 28.00 BMI Method:Stated General Appearance: WD/WN, no apparent distress HEENT: PERRL/EOMI, normal ENT inspection Neck: full range of motion, normal inspection Respiratory: lungs clear, normal breath sounds, no respiratory distress Cardiovascular: normal peripheral pulses, regular rate, rhythm Gastrointestinal: normal bowel sounds, soft, tenderness (epigastric ) Extremities: non-tender, normal inspection Neurologic/Psychiatric: no motor/sensory deficits, alert, normal mood/affect, oriented x 3 Skin: normal color, warm/dry Progress/Results/Core Measures Results/Orders Lab Results Laboratory Tests Test 12/13/20 18:25 12/13/20 19:09 12/13/20 20:15 Range/Units Prothrombin Time 12.7 12.2-14.7 SEC INR Comment 0.9 0.8-1.4 Activated Partial Thromboplast Time 43 H 24-35 SEC Sodium Level 140 135-145 MMOL/L Potassium Level 4.6 3.6-5.0 MMOL/L Chloride Level 110 H 98-107 MMOL/L Carbon Dioxide Level 21 21-32 MMOL/L Anion Gap 9 5-14 MMOL/L Blood Urea Nitrogen 22 H 7-18 MG/DL Creatinine 1.16 0.60-1.30 MG/DL Estimat Glomerular Filtration Rate 46 BUN/Creatinine Ratio 19 Glucose Level 215 H 70-105 MG/DL Calcium Level 8.1 L 8.5-10.1 MG/DL Corrected Calcium 8.6 8.5-10.1 MG/DL Total Bilirubin 0.2 0.1-1.0 MG/DL Aspartate Amino Transf (AST/SGOT) 9 5-34 U/L Alanine Aminotransferase (ALT/SGPT) 7 0-55 U/L Alkaline Phosphatase 93 40-136 U/L Troponin I < 0.028 <0.028 NG/ML Total Protein 6.0 L 6.4-8.2 GM/DL Albumin 3.4 3.2-4.5 GM/DL Lipase 152 H 8-78 U/L White Blood Count 9.2 4.3-11.0 10^3/uL Red Blood Count 3.32 L 3.80-5.11 10^6/uL Hemoglobin 9.9 L 11.5-16.0 g/dL Hematocrit 31 L 35-52 % Mean Corpuscular Volume 93 80-99 fL Mean Corpuscular Hemoglobin 30 25-34 pg Mean Corpuscular Hemoglobin Concent 32 32-36 g/dL Red Cell Distribution Width 14.8 H 10.0-14.5 % Platelet Count 258 130-400 10^3/uL Mean Platelet Volume 9.5 9.0-12.2 fL Immature Granulocyte % (Auto) 0 % Neutrophils (%) (Auto) 66 42-75 % Lymphocytes (%) (Auto) 21 12-44 % Monocytes (%) (Auto) 9 0-12 % Eosinophils (%) (Auto) 3 0-10 % Basophils (%) (Auto) 1 0-10 % Neutrophils # (Auto) 6.1 1.8-7.8 10^3/uL Lymphocytes # (Auto) 2.0 1.0-4.0 10^3/uL Monocytes # (Auto) 0.8 0.0-1.0 10^3/uL Eosinophils # (Auto) 0.2 0.0-0.3 10^3/uL Basophils # (Auto) 0.1 0.0-0.1 10^3/uL Immature Granulocyte # (Auto) 0.0 0.0-0.1 10^3/uL Urine Color YELLOW Urine Clarity CLEAR Urine pH 6.5 5-9 Urine Specific [place] 1.010 L 1.016-1.022 Urine Protein NEGATIVE NEGATIVE Urine Glucose (UA) NEGATIVE NEGATIVE Urine Ketones NEGATIVE NEGATIVE Urine Nitrite NEGATIVE NEGATIVE Urine Bilirubin NEGATIVE NEGATIVE Urine Urobilinogen 0.2 < = 1.0 MG/DL Urine Leukocyte Esterase NEGATIVE NEGATIVE Urine RBC (Auto) NEGATIVE NEGATIVE Urine RBC NONE /HPF Urine WBC 2-5 /HPF Urine Squamous Epithelial Cells NONE /HPF Urine Renal Epithelial Cells 0-2 /HPF Urine Crystals NONE /LPF Urine Bacteria NEGATIVE /HPF Urine Casts NONE /LPF Urine Mucus NEGATIVE /LPF Urine Culture Indicated CULTURE PENDING Micro Results Microbiology 12/13/20 Urine Culture - Final, Complete See Comments My Orders Orders - ARGELIA CA CONSTRUCTION CODE ADMINISTRATOR Cbc With Automated Diff (12/13/20 18:43) Comprehensive Metabolic Panel (12/13/20 18:43) Urinalysis (12/13/20 18:43) Urine Culture (12/13/20 18:43) Protime With Inr (12/13/20 18:43) Partial Thromboplastin Time (12/13/20 18:43) Chest 1 View, Ap/Pa Only (12/13/20 18:43) Troponin I (12/13/20 18:43) Ondansetron Injection (Zofran Injectio (12/13/20 18:45) Lactated Ringers (Lr 1000 Ml Iv Solution (12/13/20 18:45) Fentanyl Injection (Sublimaze Injection (12/13/20 18:45) Lipase (12/13/20 19:08) Ct Abdomen/Pelvis W (12/13/20 19:08) Iohexol Injection (Omnipaque 350 Mg/Ml 1 (12/13/20 19:15) Received Contrast (Hold Metformin- Contr (12/13/20 19:15) Ns (Ivpb) (Sodium Chloride 0.9% Ivpb Bag (12/13/20 19:15) Fentanyl Injection (Sublimaze Injection (12/13/20 20:45) Medications Given in ED Vital Signs/I&O 12/13/20 12/13/20 17:55 21:09 Temp 36.5 36.5 Pulse 118 107 Resp 20 16 B/P (MAP) 148/74 (98) 155/87 Pulse Ox 96 95 O2 Delivery Room Air Room Air 12/13/20 23:59 Intake Total 1000 ml Balance 1000 ml Progress Progress Note : Progress Note Patient examined and in no acute distress. Orders placed for IV fluids, basic labs, lipase, chest x-ray, troponin, CT abdomen pelvis with contrast. Pain was treated with fentanyl 25 mcg and nausea treated with Zofran 4 mg. Chest x-ray shows some atelectasis, discussed giving her an incentive spirometer to use at home. States that she has one at home and will use every [address] abdomen pelvis shows no acute pathology. Labs reviewed and are unremarkable. Has chronic anemia and Hgb 9.9. Lipase shows slight elevation, suggestive of subacute pancreatitis. After fluids and pain medicine she reports feeling much improved and is ready to go home. Diagnostic Imaging Diagonstic Imaging: Xray Plain Films/CT/US/NM/MRI: chest Comments NAME: KEO AGUIRRE MED REC#: [id number] PT STATUS: DEP ER : 1950 PHYSICIAN: ARGELIA CA APRN ADMIT DATE: 12/13/20/ER Signed Date of Exam:12/13/20 CHEST 1 VIEW, AP/PA ONLY INDICATION: Sepsis COMPARISON: 11/28/2020 FINDINGS: Single view of the chest demonstrates new atelectasis in the mid left lung and hilum. Chronic scarring is seen in the right base. There is no pneumothorax or effusion. The heart size is stable. There is no pneumothorax. No overt pulmonary edema is seen. The loop recorder and central venous catheter are stable. IMPRESSION: New and/or increasing left hilar mid lung atelectasis. Dictated by: Dictated on workstation # [id number] Dict: 12/13/202007 Trans: 12/13/202113 [facility] [id number] Interpreted by: KOSTA BAHENA Electronically signed by: KOSTA BAHENA 12/13/202113 Reviewed: Reviewed by Fl Diagonstic Imaging: CT Plain Films/CT/US/NM/MRI: abdomen Comments NAME: KEO AGUIRRE [facility] REC#: [id number] PT STATUS: DEP ER : 1950 PHYSICIAN: ARGELIA CA APRN ADMIT DATE: 12/13/20/ER Signed Date of Exam:12/13/20 CT ABDOMEN/PELVIS W PROCEDURE: CT abdomen and pelvis with contrast. TECHNIQUE: Multiple contiguous axial images were obtained through the abdomen and pelvis after administration of intravenous contrast. Auto Exposure Controls were utilized during the CT exam to meet ALARA standards for radiation dose reduction. All CT scans use one or more of the following dose optimizing techniques: automated exposure control, MA and/or KvP adjustment based on patient size and exam type or iterative reconstruction. INDICATION: Abdominal pain, pancreatitis, epigastric pain COMPARISON: 11/26/2020 FINDINGS: Coronary artery disease is present. Chronic interstitial changes are seen in both bases. There is no overt hiatal hernia. The gallbladder, solid organs, vascular structures are stable. There is extensive atherosclerosis of the abdominal aorta without evidence of aneurysm. There is no free air or free fluid. Mild constipation is present. There is no bowel obstruction. The uterus is surgically absent. Urinary bladder is normal. Osseous structures are stable. IMPRESSION: 1. No inflammatory process is seen to suggest acute pancreatitis. There is no pseudocyst formation. There is no hiatal hernia. 2. Mild constipation without overt bowel obstruction or ileus. 3. No free air or free fluid. Dictated by: Dictated on workstation # [id number] Dict: 12/13/202008 Trans: 12/13/202113 [facility] [id number] Interpreted by: KOSTA BAHENA Electronically signed by: KOSTA BAHENA 12/13/202113 Reviewed: Reviewed by Me Departure Impression Primary Impression: Subacute pancreatitis Disposition: HOME, SELF-CARE Condition: Improved Departure-Patient Inst. Decision time for Depature: 20:34 Referrals: [facility] [place] (PCP) Primary Care Physician JAVIER MOSS (Family) Primary Care Physician Patient Instructions: Chronic Pancreatitis (DC) Add. Discharge Instructions: PLAN: 1. Discharge home. 2. Clear liquid diet until your pain has resolved, advance slowly as tolerated. 3. Continue your home Hydrocodone and Zofran as needed for pain and nausea. 4. Return to ER for any new or concerning symptoms. All discharge instructions reviewed with patient and/or family. Voiced understanding. ARGELIA CA CONSTRUCTION CODE ADMINISTRATOR Dec 13, 2020 18:06
[2020-12-13] MEDS ORDERED: ONDANSETRON 4 MG/2 ML (SDV) Z0FRAN IV PRN (18:45)
[2020-12-13] MEDS ORDERED: fentaNYL INJECTION 100 MCG/2 ML AMP IVP ONE ×2 (18:45→20:45)
[2020-12-13] MEDS ORDERED: LACTATED RINGERS 1,000 ML IV ONE (18:45)
[2020-12-13 18:52] LABS: ALBUMIN 3.4 GM/DL (3.2-4.5)
[2020-12-13 18:53] LABS: CHLORIDE 110 MMOL/L (98-107); POTASSIUM 4.6 MMOL/L (3.6-5.0); SODIUM 140 MMOL/L (135-145)
[2020-12-13 18:54] LABS: CALCIUM 8.1 MG/DL (8.5-10.1)
[2020-12-13 18:55] LABS: GLUCOSE 215 MG/DL (70-105)
[2020-12-13 18:56] LABS: CARBON DIOXIDE 21 MMOL/L (21-32); INR 0.9 (0.8-1.4); PROTHROMBIN TIME PATIENT 12.7 SEC (12.2-14.7)
[2020-12-13 18:57] LABS: BILIRUBIN,TOTAL 0.2 MG/DL (0.1-1.0)
[2020-12-13 18:58] LABS: ALKALINE PHOSPHATASE 93 U/L (40-136)
[2020-12-13 18:59] LABS: CREATININE SERUM 1.16 MG/DL (0.60-1.30); GFR ESTIMATED 46
[2020-12-13 19:00] LABS: BUN/CREATININE RATIO 19
[2020-12-13 19:02] LABS: ALANINE AMINOTRANSFERASE 7 U/L (0-55)
[2020-12-13] MEDS ORDERED: IOHEXOL 350 MG/ML 100 ML (OMNIPAQUE 350) VIAL IV ONE (19:15)
[2020-12-13] MEDS ORDERED: NS 100 ML (IVPB) BAG IV ONE (19:15)
[2020-12-13] MEDS ORDERED: HOLD METFORMIN - RECEIVED CONTRAST 20 ML VIAL IV SCH (19:15)
[2020-12-13 19:25] LABS: BASOPHILS # (AUTO) 0.1 10^3/uL (0.0-0.1); BASOPHILS % (AUTO) 1 % (0-10); EOSINOPHILS # (AUTO) 0.2 10^3/uL (0.0-0.3); EOSINOPHILS % (AUTO) 3 % (0-10); HEMATOCRIT 31 % (35-52); HEMOGLOBIN 9.9 g/dL (11.5-16.0); LYMPHOCYTES % (AUTO) 21 % (12-44); MEAN CORPUSCULAR HEMOGLOBIN 30 pg (25-34); MEAN CORPUSCULAR HGB CONC 32 g/dL (32-36); MEAN CORPUSCULAR VOLUME 93 fL (80-99); MEAN PLATELET VOLUME 9.5 fL (9.0-12.2); MONOCYTES # (AUTO) 0.8 10^3/uL (0.0-1.0); MONOCYTES % (AUTO) 9 % (0-12); NEUTROPHILS # (AUTO) 6.1 10^3/uL (1.8-7.8); NEUTROPHILS % (AUTO) 66 % (42-75); PLATELET COUNT 258 10^3/uL (130-400); WHITE BLOOD COUNT 9.2 10^3/uL (4.3-11.0)
--- NOTE | 2020-12-13 20:11 | Diagnostic Imaging Report ---
INDICATION: Sepsis COMPARISON: 11/28/2020 FINDINGS: Single view of the chest demonstrates new atelectasis in the mid left lung and hilum. Chronic scarring is seen in the right base. There is no pneumothorax or effusion. The heart size is stable. There is no pneumothorax. No overt pulmonary edema is seen. The loop recorder and central venous catheter are stable. IMPRESSION: New and/or increasing left hilar mid lung atelectasis. Dictated by: Dictated on workstation # [id number]
[2020-12-13 20:23] LABS: BILIRUBIN,URINE NEGATIVE (NEGATIVE); CLARITY,URINE CLEAR; COLOR,URINE YELLOW; GLUCOSE, URINE (UA) NEGATIVE (NEGATIVE); KETONES,URINE NEGATIVE (NEGATIVE); LEUKOCYTE ESTERASE ,URINE NEGATIVE (NEGATIVE); NITRITE,URINE NEGATIVE (NEGATIVE); PH,URINE 6.5 (5-9); PROTEIN,URINE NEGATIVE (NEGATIVE)
--- NOTE | 2020-12-13 20:26 | Diagnostic Imaging Report ---
PROCEDURE: CT abdomen and pelvis with contrast. TECHNIQUE: Multiple contiguous axial images were obtained through the abdomen and pelvis after administration of intravenous contrast. Auto Exposure Controls were utilized during the CT exam to meet ALARA standards for radiation dose reduction. All CT scans use one or more of the following dose optimizing techniques: automated exposure control, MA and/or KvP adjustment based on patient size and exam type or iterative reconstruction. INDICATION: Abdominal pain, pancreatitis, epigastric pain COMPARISON: 11/26/2020 FINDINGS: Coronary artery disease is present. Chronic interstitial changes are seen in both bases. There is no overt hiatal hernia. The gallbladder, solid organs, vascular structures are stable. There is extensive atherosclerosis of the abdominal aorta without evidence of aneurysm. There is no free air or free fluid. Mild constipation is present. There is no bowel obstruction. The uterus is surgically absent. Urinary bladder is normal. Osseous structures are stable. IMPRESSION: 1. No inflammatory process is seen to suggest acute pancreatitis. There is no pseudocyst formation. There is no hiatal hernia. 2. Mild constipation without overt bowel obstruction or ileus. 3. No free air or free fluid. Dictated by: Dictated on workstation # [id number]
[2020-12-13 20:31] LABS: BACTERIA,URINE NEGATIVE /HPF; RENAL EPITHELIAL CELLS,URINE 0-2 /HPF
[2020-12-13 21:09] VITALS: BP 155/87
== END 2020-12-13 21:10 | disposition home or self-care (01) ==
LOC: EDUNIT# 17:38 → ER 17:39
DX: K85.90 Acute pancreatitis without necrosis or infection, unspecified (principal); I25.2 Old myocardial infarction; I25.10 Atherosclerotic heart disease of native coronary artery without angina pectoris; I10 Essential (primary) hypertension; E78.00 Pure hypercholesterolemia, unspecified; K21.9 Gastro-esophageal reflux disease without esophagitis; G89.29 Other chronic pain; M54.9 Dorsalgia, unspecified; Z88.0 Allergy status to penicillin; Z88.1 Allergy status to other antibiotic agents; Z88.6 Allergy status to analgesic agent; Z88.8 Allergy status to other drugs, medicaments and biological substances; Z95.9 Presence of cardiac and vascular implant and graft, unspecified; Z85.3 Personal history of malignant neoplasm of breast; Z95.5 Presence of coronary angioplasty implant and graft; Z82.49 Family history of ischemic heart disease and other diseases of the circulatory system; Z79.82 Long term (current) use of aspirin; Z79.891 Long term (current) use of opiate analgesic
CPT/HCPCS: 36415; 71045; 74177; 80053; 81000; 83690; 84484; 85025; 85610; 85730; 87088

== ENCOUNTER → 2020-12-28 | Outpatient (CLI) | payer MEDICARE ==
[2020-12-28 10:06] LABS: ALBUMIN 4.1 GM/DL (3.2-4.5); BILIRUBIN,TOTAL 0.2 MG/DL (0.1-1.0); CALCIUM 8.6 MG/DL (8.5-10.1); CREATININE SERUM 1.16 MG/DL (0.60-1.30); TOTAL PROTEIN 7.5 GM/DL (6.4-8.2)
== END ==
LOC: LAB 09:27
PROVIDERS: ATTEND Internal Medicine Gastroenterology
DX: R10.9 Unspecified abdominal pain (principal)
CPT/HCPCS: 36415; 80053; 82150; 83690

== ENCOUNTER → 2020-12-28 | Outpatient (CLI) | payer MEDICARE ==
[2020-12-28 09:57] LABS: BASOPHILS # (AUTO) 0.1 10^3/uL (0.0-0.1); BASOPHILS % (AUTO) 1 % (0-10); EOSINOPHILS # (AUTO) 0.4 10^3/uL (0.0-0.3); EOSINOPHILS % (AUTO) 5 % (0-10); HEMATOCRIT 38 % (35-52); LYMPHOCYTES # (AUTO) 2.1 10^3/uL (1.0-4.0); LYMPHOCYTES % (AUTO) 26 % (12-44); MEAN CORPUSCULAR HEMOGLOBIN 29 pg (25-34); MEAN CORPUSCULAR HGB CONC 32 g/dL (32-36); MEAN CORPUSCULAR VOLUME 92 fL (80-99); MEAN PLATELET VOLUME 9.5 fL (9.0-12.2); MONOCYTES # (AUTO) 0.5 10^3/uL (0.0-1.0); MONOCYTES % (AUTO) 6 % (0-12); NEUTROPHILS # (AUTO) 4.9 10^3/uL (1.8-7.8); NEUTROPHILS % (AUTO) 62 % (42-75); PLATELET COUNT 374 10^3/uL (130-400); WHITE BLOOD COUNT 7.9 10^3/uL (4.3-11.0)
== END ==
LOC: LAB 09:32
PROVIDERS: ATTEND Internal Medicine
DX: D80.1 Nonfamilial hypogammaglobulinemia (principal)
CPT/HCPCS: 36415; 82784; 85025

== ENCOUNTER → 2020-12-28 | Outpatient (CLI) | payer MEDICARE | LOC: CARD 09:11 | PROVIDERS: ATTEND Physician Assistant | DX: I25.10 Atherosclerotic heart disease of native coronary artery without angina pectoris (principal); I48.0 Paroxysmal atrial fibrillation; I11.9 Hypertensive heart disease without heart failure; I34.0 Nonrheumatic mitral (valve) insufficiency | CPT/HCPCS: 93306 ==

== ENCOUNTER → 2020-12-28 | Outpatient (CLI) | payer MEDICARE ==
--- NOTE | 2020-12-28 15:51 | Diagnostic Imaging Report ---
INDICATION: Routine screening. COMPARISON: 12/22/2019 and 08/14/2018. TECHNIQUE: 2D and 3D bilateral screening mammography was performed with CAD. FINDINGS: Both breasts are heterogeneously dense, limiting the sensitivity of mammography. Post-therapeutic changes in the left breast are again noted. There are benign calcifications in both breasts. There are vascular calcifications present. No spiculated mass or malignant appearing microcalcifications are seen. The [id number] hub in the left axilla is again seen. IMPRESSION: No mammographic features suspicious for malignancy are identified. ACR BI-RADS Category 2: Benign findings. Result letter will be mailed to the patient. Note: At least 10% of breast cancer is not imaged by mammography. Dictated by: Dictated on workstation # [id number]
== END ==
LOC: RAD 09:12
PROVIDERS: ATTEND Physician Assistant
DX: Z12.31 Encounter for screening mammogram for malignant neoplasm of breast (principal)
CPT/HCPCS: 77063; 77067

== ENCOUNTER → 2021-01-02 | Outpatient (CLI) | payer MEDICARE ==
--- NOTE | 2021-01-02 14:02 | Diagnostic Imaging Report ---
INDICATION: Inflammatory arthritis. COMPARISON: None available. TECHNIQUE: Three radiographs of the left knee dated 01/02/2021. FINDINGS: Left total knee arthroplasty is in place. Mild lucency is noted underlying the medial aspect of the tibial component. No acute fracture or dislocation. No significant knee joint effusion. Soft tissue calcifications are identified anterior to the proximal tibia. IMPRESSION: Left total knee arthroplasty with mild lucency underlying the medial tibial component. This lucency may be chronic and relate to remote degenerative changes and subchondral cyst formation. Loosening felt less likely. Infection felt even less likely. Comparison to prior imaging would be beneficial. No acute fracture. Dictated by: Dictated on workstation # [id number]
--- NOTE | 2021-01-02 15:49 | Diagnostic Imaging Report ---
INDICATION: Inflammatory arthritis. EXAMINATION: Bilateral feet, 4 views. FINDINGS: The interphalangeal joints show bony erosion of the articulating surfaces throughout. The MP joints are relatively well preserved with mild narrowing of the joint spaces. No evidence of periarticular erosions. The midfoot shows moderate arthritic changes along the tarsometatarsal joints. There are no fractures. No periosteal reactive changes. No soft tissue swelling is noted. IMPRESSION: Diffuse arthritic changes are noted with the most severe changes noted throughout the interphalangeal joints of the toes with articular erosion present. Dictated by: Dictated on workstation # [id number]
--- NOTE | 2021-01-02 17:45 | Diagnostic Imaging Report ---
EXAMINATION: Left wrist radiographs, 2 views. Right wrist radiographs, 2 views. COMPARISON: Right wrist radiographs October 14, 2019. HISTORY: 70-year-old female, bilateral wrist pain. FINDINGS: There is severe osteoarthritis of the left first carpometacarpal joint. The additional joint spaces of the left wrist are well-preserved. There is no bone erosion. There are remote prior fractures of the right distal radius and right distal ulna. There is mild osteoarthritis of the right first carpometacarpal joint and first metacarpophalangeal joint. There is no bone erosion. IMPRESSION: 1. No findings to specifically suggest an inflammatory or crystalline arthropathy at the level of the right or left wrist. 2. Osteoarthritis involving the left greater than right first carpometacarpal joints and mild osteoarthritis of the right first metacarpophalangeal joint. 3. Remote prior fractures of the right distal radius and ulna. Dictated by: Dictated on workstation # [id number]
--- NOTE | 2021-01-02 17:46 | Diagnostic Imaging Report ---
EXAMINATION: Left hand radiographs, 2 views. Right hand radiographs, 2 views. COMPARISON: None. HISTORY: Bilateral hand radiographs February 26, 2019. FINDINGS: There is severe osteoarthritis of the left first carpometacarpal joint. There is moderate to severe joint space loss at the second, third, and fourth distal interphalangeal joints on the left with osteophyte formation. There are mild findings of osteoarthritis of the left first interphalangeal joint. The bones appear demineralized. There is no identified bone erosion. There is a healed remote prior fracture of the right distal radial metaphysis and chronic-appearing deformity of the distal ulna which also may relate to the sequela of prior injury. There is moderate osteoarthritis of the first carpometacarpal joint on the right. There is severe joint space loss of the second, third, and fourth distal interphalangeal joints on the right with osteophyte formation. There is moderate osteoarthritis of the right fifth distal interphalangeal joint and mild osteoarthritis of the first metacarpophalangeal and first interphalangeal joints. There is no identified bone erosion. IMPRESSION: 1. Multifocal advanced osteoarthritis involving both hands, as described above. Dictated by: Dictated on workstation # [id number]
== END ==
LOC: RAD 12:08
PROVIDERS: ATTEND Internal Medicine Rheumatology
DX: M18.0 Bilateral primary osteoarthritis of first carpometacarpal joints (principal); M19.071 Primary osteoarthritis, right ankle and foot; M19.072 Primary osteoarthritis, left ankle and foot; Z96.652 Presence of left artificial knee joint
CPT/HCPCS: 73562

== ENCOUNTER → 2021-01-23 | Outpatient (CLI) | payer MEDICARE ==
[~2021-01-23] VITALS: Ht 162 cm; Wt 70.0 kg
[~2021-01-23] MED LIST changes: +CATHETER FLUSH 10 ML SYR IV PRN; +REGADENOSON 0.4 MG/5 ML SYR (LEXISCAN) IV ONE; +meTOprolol 5 MG/5 ML (LOPRESSOR) VIAL IV ONE; +meTOprolol 5 MG/5 ML (LOPRESSOR) VIAL ONE
[2021-01-23 09:37] VITALS: BP 220/107
--- NOTE | 2021-01-23 19:59 | Cardiology Stress Test Report ---
Stress Test Report Date of Procedure/Referring: Date of Procedure: Jan 23, 2021 PCP Maria D Hanks Admitting Physician Center/[facility] Indications: CAD Baseline Heart Rate: 85 Baseline Blood Pressure: Blood Pressure Systolic: 220 Blood Pressure Diastolic: 107 Baseline Vitals Vital Signs Date Time Temp Pulse Resp B/P (MAP) Pulse Ox O2 Delivery O2 Flow Rate FiO2 01/23/21 09:37 80 220/107 (144) Baseline EKG: Baseline EKG: NSR Summary After explaining the procedure to the patient, she signed a consent and then brought to the stress nuclear laboratory. Patient received 0.4 mg Lexiscan for stress test, ECG, heart rate and blood pressure were monitored continuously. Resting and stress dose of radio tracer were injected, imaging was acquired and reviewed in short axis, horizontal long axis and vertical long axis views. TID: 0.97 SSS: 0 SDS: 0 EF: 60 1. Patient tolerated Lexiscan well 2. Baseline hypertension persisted during test 3. No significant ischemia or infarction on SPECT images 4. Normal left ventricular size, EF 60% ABBI GUTIERREZ MD Jan 23, 2021 19:59
== END ==
LOC: CARD 08:15
PROVIDERS: ATTEND Physician Assistant
DX: I25.10 Atherosclerotic heart disease of native coronary artery without angina pectoris (principal); I10 Essential (primary) hypertension
CPT/HCPCS: 78452; 93017; A9502

== ENCOUNTER → 2021-02-02 | Outpatient (CLI) | payer MEDICARE ==
[~2021-02-02] MED LIST changes: -CATHETER FLUSH 10 ML SYR IV PRN; +NITR100C PO; -REGADENOSON 0.4 MG/5 ML SYR (LEXISCAN) IV ONE; -meTOprolol 5 MG/5 ML (LOPRESSOR) VIAL IV ONE; -meTOprolol 5 MG/5 ML (LOPRESSOR) VIAL ONE
--- NOTE | 2021-02-02 10:48 | Diagnostic Imaging Report ---
EXAMINATION: US Renal Sono Limited and Renal Doppler Bilateral. TECHNIQUE: Multiple real-time grayscale images were obtained over the kidneys in various projections bilaterally. Duplex evaluation of renal arteries was also attempted. HISTORY: Essential hypertension. COMPARISON: Abdominal ultrasound from 11/29/2020. FINDINGS: The right kidney demonstrates normal echogenicity and cortical thickness. The right kidney measures 10.2 x 5.4 x 5.6 cm. No hydronephrosis. The left kidney demonstrates normal echogenicity and cortical thickness. The left kidney measures 9.2 x 4.6 x 6.1 cm. No hydronephrosis. Bilateral renal cysts are present. Peak systolic velocities: Abdominal aorta: 72 cm/s Proximal right renal artery: 81 cm/s Mid right renal artery: 76 cm/s Distal right renal artery: 66 cm/s Proximal left renal artery: 102 cm/s Mid left renal artery: 59 cm/s Distal left renal artery: 60 cm/s Peak ratio to abdominal aorta: Right renal artery: 1.1 Left renal artery: 1.7 Resistive indices in arcuate arteries: Right: 0.63 Left: 0.69 IMPRESSION: 1. Normal kidneys without hydronephrosis. 2. No evidence for renal artery stenosis. Dictated by: Dictated on workstation # [id number]
== END ==
LOC: RAD 08:00
PROVIDERS: ATTEND Internal Medicine Cardiovascular Disease
DX: I10 Essential (primary) hypertension (principal)
CPT/HCPCS: 76770; 93975

== ENCOUNTER 2021-02-06 11:18 | Emergency (ER) | payer MEDICARE ==
[~2021-02-06] VITALS: Ht 162.6 cm; Wt 74.8 kg
[~2021-02-06 11:18] MED LIST changes: -NITR100C PO
[2021-02-06] MEDS ORDERED: LACTATED RINGERS 1,000 ML IV ONE (11:30)
[2021-02-06 11:56] LABS: BILIRUBIN,URINE NEGATIVE (NEGATIVE); CLARITY,URINE CLEAR; COLOR,URINE YELLOW; GLUCOSE, URINE (UA) NEGATIVE (NEGATIVE); KETONES,URINE NEGATIVE (NEGATIVE); LEUKOCYTE ESTERASE ,URINE TRACE (NEGATIVE); NITRITE,URINE NEGATIVE (NEGATIVE); PH,URINE 6.5 (5-9); PROTEIN,URINE 1+ (NEGATIVE)
--- NOTE | 2021-02-06 12:03 | ED Abdominal Pain ---
General Chief Complaint: Abdominal/GI Problems Stated Complaint: PANCREATITIS Nursing Triage Note: pt reports "pancreatitis" attack. pt states high bpx2 weeks, headache, stomach pain, back pain, and nausea. pt has taken all her home meds for pain and headache and has had no relief. Sepsis Screen: No Definite Risk Source of Information: Patient Exam Limitations: No Limitations History of Present Illness Date Seen by Provider: Feb 06, 2021 Time Seen by Provider: 11:28 Initial Comments This is a well-appearing 70-year-old female who presents to the ER via POV with complaints of mid upper abdominal pain. States the pain has been present for the past 2 weeks and she is concerned her "pancreatitis is flaring up again". States she has h/o chronic pancreatitis and has been taking Tramadol and Zofran at home with no relief. Additionally reports LARSON and took her migraine medications but has had minimal relief. Denies fever, chills, cough, shortness of breath, diarrhea. Currently rating pain 9.5/10, constant, sharp, and in her mid abdominal region. Allergies and Home Medications Allergies Coded Allergies: clopidogrel (Verified Allergy, Severe, BLOOD CLOTS, 11/27/18) Penicillins (Verified Allergy, Mild, RASH, 11/27/18) carisoprodol (Verified Allergy, Mild, RASH, 11/27/18) cephalexin (Verified Allergy, Mild, RASH, 11/27/18) ketorolac (Verified Allergy, Mild, RASH, 11/27/18) prochlorperazine (Verified Allergy, Mild, RASH, 11/27/18) Carbamates (Verified Allergy, Unknown, Rash, 05/28/19) Home Medications Albuterol Sulfate 2.5 Mg/3 Ml Vial.neb, 2 PUFF INH Q4H PRN for SHORTNESS OF BREATH Prescribed by: DASIA FRANKLIN on 11/25/20 1101 Amlodipine Besylate 10 Mg Tablet, 10 MG PO DAILY, (Reported) Aspirin 81 Mg Tablet.dr, 81 MG PO DAILY Prescribed by: OLIVE ISAAC on 11/21/20 1010 Atorvastatin Calcium 40 Mg Tablet, 40 MG PO HS, (Reported) Cholecalciferol (Vitamin D3) 50 Mcg Tablet, 50 MCG PO DAILY, (Reported) Codeine/Butalbital/ASA/Caffein 1 Each Capsule, 1 EACH PO DAILY PRN for MIGRAINE, (Reported) Duloxetine HCl 30 Mg Capsule.dr, 30 MG PO DAILY, (Reported) TAKE ALONG WITH 60MG CAP FOR A TOTAL DAILY DOSE OF 90MG Folic Acid 1 Mg Tablet, 1 MG PO DAILY, (Reported) Furosemide 40 Mg Tablet, 40 MG PO DAILY PRN for EDEMA Prescribed by: OLIVE ISAAC on 11/21/20 1010 Hydrocodone/Acetaminophen 1 Each Tablet, 1-2 EACH PO Q4-6 HOURS PRN for PAIN Prescribed by: RAPHAEL DUNCAN on 11/26/202106 Hydroxychloroquine Sulfate 200 Mg Tablet, 200 MG PO BID, (Reported) Hyoscyamine Sulfate 0.125 Mg Tab.subl, 0.25 MG SL Q4H Prescribed by: RAPHAEL DUNCAN on 11/26/202106 Levetiracetam 500 Mg Tablet, 500 MG PO BID Prescribed by: OLIVE ISAAC on 11/21/20 1010 Metoprolol Succinate 100 Mg Tab.er.24h, 100 MG PO DAILY, (Reported) Nitrofurantoin Macrocrystal 100 Mg Capsule, 100 MG PO BID Prescribed by: ARGELIA CA on 02/06/21 1309 Ondansetron 4 Mg Tab.rapdis, 4 MG PO Q4H PRN for NAUSEA-1ST LINE Prescribed by: DASIA FRANKLIN on 11/25/20 1101 Ondansetron 8 Mg Tab.rapdis, 8 MG PO Q6H Prescribed by: RAPHAEL DUNCAN on 11/26/202106 Pantoprazole Sodium 40 Mg Tablet.dr, 40 MG PO DAILY, (Reported) Pantoprazole Sodium 40 Mg Tablet.dr, 40 MG PO DAILY Prescribed by: RAPHAEL DUNCAN on 11/26/202106 Topiramate 50 Mg Tablet, 75 MG PO BID, (Reported) TAKE 1 & 1/2 OF 50MG TAB Patient Home Medication List Home Medication List Reviewed: Yes Review of Systems Review of Systems Constitutional: malaise, weakness EENTM: No Symptoms Reported Respiratory: No Symptoms Reported Cardiovascular: No Symptoms Reported Gastrointestinal: See HPI Genitourinary: No Symptoms Reported Musculoskeletal: see HPI Skin: no symptoms reported Psychiatric/Neurological: Headache; Denies Numbness, Denies Paresthesia Endocrine: No Symptoms Reported Hematologic/Lymphatic: No Symptoms Reported Past Krdshgx-Xesgnj-Twncjg Hx Patient Social History Alcohol Use: Denies Use Drug of Choice: DENIES 2nd Hand Smoke Exposure: No Recent Infectious Disease Expo: No Recent Hopitalizations: Yes (covid-19 on Nov 16) Immunizations Up To Date Tetanus Booster (TDap): Unknown Date of Pneumonia Vaccine: Jul 29, 2017 Date of Influenza Vaccine: Jun 30, 2020 Seasonal Allergies Seasonal Allergies: No Past Medical History Surgeries: Yes (R CTR, espohageal ligation x2, Hernia, L RCR, L TKR, laparotomy, MRSA infec) Abdominal, Breast, Cardiac, Coronary Stent, Hysterectomy, Joint Replacement, Oophorectomy, Orthopedic, Thyroidectomy Respiratory: Yes (COVID-19 November 07, 2020-ADMITTED WITH PNEUMONIA) Pneumonia Currently Using CPAP: No Currently Using BIPAP: No Cardiac: Yes (HX HEART CATH-STENT;MILD BILAT CAROTID STENOSIS;DVT L ARM DUE TO PICC LINE) Coronary Artery Disease, Deep Vein Thrombosis, Heart Attack, High Cholesterol, Hypertension, Peripheral Vascular Neurological: Yes Headaches /Migraines, Neuropathy 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, 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 Sexually Transmitted Disease: No HIV/AIDS: No Genitourinary: Yes (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,STAGE 2-KIDNEY DISEASE;DIABETIC NEPHROPA ) Bladder Infection, Renal Failure, Dialysis Gastrointestinal: Yes (HX GI BLEED, zenkers syndrome-chokes easily, hx hep A;LIVER INJURY/TRAUMA) Abdominal Hernia, Gastroesophageal Reflux, Gastrointestinal Bleed, Esophageal Varices, Hepatitis Musculoskeletal: Yes (OSTEOARTHRITIS, BULGING DISCS) Arthritis, Chronic Back Pain Endocrine: Yes (partial thyroidectomy) Diabetes, Insulin dep, Hypothyroidsim HEENT: Yes (GLASSES, UPPER DENTURES) Glaucoma Loss of Vision: Bilateral Cancer: Yes Breast Did You Recieve Any Treatments: Yes What Type of Treatment Did You: Radiation, Surgical Intervention Psychosocial: No Integumentary: No Blood Disorders: Yes (IRON DEFFICIENCY ANEMIA-GETS IRON INFUSIONS) Adverse Reaction/Blood Tranf: No (HAS HAD BLOOD WITH NO REACTION) Family Medical History Hypertension G8 BROTHER Not obtainable due to adoption 19 FATHER Heart Disease, Hypertension ADDITIONAL PAST SURGICAL HISTORY -ZENKER'S DIVERTICULUM SURGERY X 2 -ABDOMINAL HERNIA REPAIR WITH MESH -MESH REMOVAL AND LYSIS OF ADHESIONS -HYST/BSO -LOOP RECORDER -PORT LEFT CHEST -LEFT BREAST LUMPECTOMY -CARDIAC CATH WITH STENT X 1 TO RCA 2010 -PORT LEFT CHEST -RIGHT SHOULDER REPLACEMENT -RENAL ARTERY STENOSIS WITH STENT 2013 Physical Exam Vital Signs Vital Signs - First Documented 02/06/21 02/06/21 11:41 13:59 Temp 36.2 Pulse 78 Resp 20 B/P (MAP) 174/106 (128) Pulse Ox 100 O2 Delivery Room Air Capillary Refill : Less Than 3 Seconds Height/Weight/BMI Height: 5'4.00" Weight: 216lbs. 4.2oz. [id number]; 28.00 BMI Method:Stated General Appearance: WD/WN, no apparent distress HEENT: PERRL/EOMI, normal ENT inspection, pharynx normal Neck: full range of motion, normal inspection Respiratory: lungs clear, normal breath sounds, no respiratory distress Cardiovascular: normal peripheral pulses, regular rate, rhythm, no edema, no gallop Gastrointestinal: normal bowel sounds, soft; No distended, No guarding, No rebound; tenderness (mid upper abd) Extremities: normal range of motion, non-tender, normal inspection, no pedal edema Back: normal inspection Neurologic/Psychiatric: no motor/sensory deficits, alert, normal mood/affect, oriented x 3 Skin: normal color, warm/dry Progress/Results/Core Measures Results/Orders Lab Results Laboratory Tests Test 02/06/21 11:43 02/06/21 12:25 Range/Units Urine Color YELLOW Urine Clarity CLEAR Urine pH 6.5 5-9 Urine Specific [place] >=1.030 1.016-1.022 Urine Protein 1+ H NEGATIVE Urine Glucose (UA) NEGATIVE NEGATIVE Urine Ketones NEGATIVE NEGATIVE Urine Nitrite NEGATIVE NEGATIVE Urine Bilirubin NEGATIVE NEGATIVE Urine Urobilinogen 0.2 < = 1.0 MG/DL Urine Leukocyte Esterase TRACE H NEGATIVE Urine RBC (Auto) NEGATIVE NEGATIVE Urine RBC NONE /HPF Urine WBC 2-5 /HPF Urine Squamous Epithelial Cells 2-5 /HPF Urine Renal Epithelial Cells 2-5 /HPF Urine Crystals NONE /LPF Urine Bacteria FEW H /HPF Urine Casts NONE /LPF Urine Mucus NEGATIVE /LPF Urine Culture Indicated YES White Blood Count 6.5 4.3-11.0 10^3/uL Red Blood Count 4.09 3.80-5.11 10^6/uL Hemoglobin 11.8 11.5-16.0 g/dL Hematocrit 37 35-52 % Mean Corpuscular Volume 90 80-99 fL Mean Corpuscular Hemoglobin 29 25-34 pg Mean Corpuscular Hemoglobin Concent 32 32-36 g/dL Red Cell Distribution Width 12.8 10.0-14.5 % Platelet Count 227 130-400 10^3/uL Mean Platelet Volume 9.4 9.0-12.2 fL Immature Granulocyte % (Auto) 0 % Neutrophils (%) (Auto) 60 42-75 % Lymphocytes (%) (Auto) 27 12-44 % Monocytes (%) (Auto) 8 0-12 % Eosinophils (%) (Auto) 3 0-10 % Basophils (%) (Auto) 1 0-10 % Neutrophils # (Auto) 4.0 1.8-7.8 10^3/uL Lymphocytes # (Auto) 1.8 1.0-4.0 10^3/uL Monocytes # (Auto) 0.5 0.0-1.0 10^3/uL Eosinophils # (Auto) 0.2 0.0-0.3 10^3/uL Basophils # (Auto) 0.1 0.0-0.1 10^3/uL Immature Granulocyte # (Auto) 0.0 0.0-0.1 10^3/uL Sodium Level 140 135-145 MMOL/L Potassium Level 4.1 3.6-5.0 MMOL/L Chloride Level 110 H 98-107 MMOL/L Carbon Dioxide Level 22 21-32 MMOL/L Anion Gap 8 5-14 MMOL/L Blood Urea Nitrogen 15 7-18 MG/DL Creatinine 1.05 0.60-1.30 MG/DL Estimat Glomerular Filtration Rate 52 BUN/Creatinine Ratio 14 Glucose Level 149 H 70-105 MG/DL Calcium Level 8.0 L 8.5-10.1 MG/DL Corrected Calcium 8.3 L 8.5-10.1 MG/DL Total Bilirubin 0.2 0.1-1.0 MG/DL Aspartate Amino Transf (AST/SGOT) 10 5-34 U/L Alanine Aminotransferase (ALT/SGPT) 8 0-55 U/L Alkaline Phosphatase 107 40-136 U/L C-Reactive Protein High Sensitivity 0.65 H 0.00-0.50 MG/DL Total Protein 6.6 6.4-8.2 GM/DL Albumin 3.6 3.2-4.5 GM/DL Lipase 45 8-78 U/L My Orders Orders - ARGELIA CA FLOTATION OPERATOR Fentanyl Inj (Sublimaze Injection) (02/06/21 12:15) Ondansetron Injection (Zofran Injectio (02/06/21 12:45) Medications Given in ED Vital Signs/I&O 02/06/21 02/06/21 11:41 13:59 Temp 36.2 Pulse 78 73 Resp 20 18 B/P (MAP) 174/106 (128) 123/48 Pulse Ox 100 99 O2 Delivery Room Air Blood Pressure Mean: 128 Progress Progress Note : Progress Note Patient examined and in no acute distress. She has multiple trips to the emergency department with complaints of her pancreatitis flaring up. Generally her lipase is within normal limits. Will obtain basic labs and lipase at this time. Will give fentanyl 50 mcg and Zofran 4 mg IV push for pain and nausea. Her blood pressure is noted to be elevated, she states that she recently started on clonidine 3 times daily. However, this could be related to her pain is well. Will reevaluate after pain control. Half hour after receiving fentanyl and Zofran she reports feeling mild improvement. She is currently playing games on her cell phone. Labs reviewed and are unremarkable, she is noted to have slight UTI. Blood pressure markedly improved after pain control. Reviewed discharge plan of care with her and she is agreeable with plan. All questions addressed prior to discharge. Departure Impression Primary Impression: Urinary tract infection Additional Impression: Abdominal pain Disposition: 01 HOME, SELF-CARE Condition: Improved Departure-Patient Inst. Decision time for Depature: 13:05 Referrals: [facility] (PCP) Primary Care Physician JAVIER MOSS (Family) Primary Care Physician Patient Instructions: Urinary Tract Infection, Adult ED Add. Discharge Instructions: Plan: 1. Discharge home. 2. Drink plenty of fluids. 3. Take antibiotics as directed and complete full course. 4. Return for any new or worsening symptoms. All discharge instructions reviewed with patient and/or family. Voiced understanding. Scripts Nitrofurantoin Macrocrystal (Nitrofurantoin) 100 Mg Capsule 100 MG PO BID for 7 Days, #14 CAP 0 Refills Prov: ARGELIA CA FLOTATION OPERATOR 02/06/21 ARGELIA CA FLOTATION OPERATOR Feb 06, 2021 12:03
[2021-02-06] MEDS ORDERED: fentaNYL INJ 100 MCG/2 ML AMP IVP ONE (12:15)
[2021-02-06 12:20] LABS: BACTERIA,URINE FEW /HPF
[2021-02-06 12:32] LABS: BASOPHILS # (AUTO) 0.1 10^3/uL (0.0-0.1); BASOPHILS % (AUTO) 1 % (0-10); EOSINOPHILS # (AUTO) 0.2 10^3/uL (0.0-0.3); EOSINOPHILS % (AUTO) 3 % (0-10); HEMATOCRIT 37 % (35-52); HEMOGLOBIN 11.8 g/dL (11.5-16.0); LYMPHOCYTES # (AUTO) 1.8 10^3/uL (1.0-4.0); LYMPHOCYTES % (AUTO) 27 % (12-44); MEAN CORPUSCULAR HEMOGLOBIN 29 pg (25-34); MEAN CORPUSCULAR HGB CONC 32 g/dL (32-36); MEAN CORPUSCULAR VOLUME 90 fL (80-99); MEAN PLATELET VOLUME 9.4 fL (9.0-12.2); MONOCYTES # (AUTO) 0.5 10^3/uL (0.0-1.0); MONOCYTES % (AUTO) 8 % (0-12); NEUTROPHILS % (AUTO) 60 % (42-75); PLATELET COUNT 227 10^3/uL (130-400); WHITE BLOOD COUNT 6.5 10^3/uL (4.3-11.0)
[2021-02-06 12:44] LABS: ALBUMIN 3.6 GM/DL (3.2-4.5); POTASSIUM 4.1 MMOL/L (3.6-5.0)
[2021-02-06] MEDS ORDERED: ONDANSETRON 4 MG/2 ML (SDV) Z0FRAN IVP ONE (12:45)
[2021-02-06 12:46] LABS: TOTAL PROTEIN 6.6 GM/DL (6.4-8.2)
[2021-02-06 12:48] LABS: BILIRUBIN,TOTAL 0.2 MG/DL (0.1-1.0)
[2021-02-06 12:50] LABS: CREATININE SERUM 1.05 MG/DL (0.60-1.30)
[2021-02-06] MEDS ORDERED: NITR100C PO (13:09)
[2021-02-06 13:59] VITALS: BP 123/48
== END 2021-02-06 13:59 | disposition home or self-care (01) ==
LOC: EDUNIT# 11:18 → ER 11:20
DX: N39.0 Urinary tract infection, site not specified (principal); R10.10 Upper abdominal pain, unspecified; I12.9 Hypertensive chronic kidney disease with stage 1 through stage 4 chronic kidney disease, or unspecified chronic kidney disease; E11.22 Type 2 diabetes mellitus with diabetic chronic kidney disease; N18.2 Chronic kidney disease, stage 2 (mild); E11.40 Type 2 diabetes mellitus with diabetic neuropathy, unspecified; I25.10 Atherosclerotic heart disease of native coronary artery without angina pectoris; I25.2 Old myocardial infarction; E78.00 Pure hypercholesterolemia, unspecified; E89.0 Postprocedural hypothyroidism; G43.909 Migraine, unspecified, not intractable, without status migrainosus; D50.9 Iron deficiency anemia, unspecified; K21.9 Gastro-esophageal reflux disease without esophagitis; Z86.16 Personal history of COVID-19; Z86.718 Personal history of other venous thrombosis and embolism; Z95.5 Presence of coronary angioplasty implant and graft; Z95.9 Presence of cardiac and vascular implant and graft, unspecified; Z99.2 Dependence on renal dialysis; Z85.3 Personal history of malignant neoplasm of breast; Z79.82 Long term (current) use of aspirin; Z88.0 Allergy status to penicillin; Z88.1 Allergy status to other antibiotic agents; Z88.8 Allergy status to other drugs, medicaments and biological substances; Z88.6 Allergy status to analgesic agent
CPT/HCPCS: 36415; 80053; 81000; 83690; 85025; 86141; 87088

== ENCOUNTER → 2021-02-24 | Outpatient (CLI) | payer MEDICARE ==
[~2021-02-24] MED LIST changes: +NITR100C PO
[2021-02-24 11:14] LABS: BASOPHILS # (AUTO) 0.1 10^3/uL (0.0-0.1); BASOPHILS % (AUTO) 1 % (0-10); EOSINOPHILS # (AUTO) 0.2 10^3/uL (0.0-0.3); EOSINOPHILS % (AUTO) 3 % (0-10); HEMATOCRIT 39 % (35-52); HEMOGLOBIN 12.5 g/dL (11.5-16.0); LYMPHOCYTES # (AUTO) 1.6 10^3/uL (1.0-4.0); LYMPHOCYTES % (AUTO) 29 % (12-44); MEAN CORPUSCULAR HEMOGLOBIN 29 pg (25-34); MEAN CORPUSCULAR HGB CONC 32 g/dL (32-36); MEAN CORPUSCULAR VOLUME 89 fL (80-99); MEAN PLATELET VOLUME 9.6 fL (9.0-12.2); MONOCYTES # (AUTO) 0.5 10^3/uL (0.0-1.0); MONOCYTES % (AUTO) 8 % (0-12); NEUTROPHILS # (AUTO) 3.3 10^3/uL (1.8-7.8); NEUTROPHILS % (AUTO) 58 % (42-75); PLATELET COUNT 267 10^3/uL (130-400); WHITE BLOOD COUNT 5.7 10^3/uL (4.3-11.0)
[2021-02-24 11:27] LABS: ALBUMIN 3.8 GM/DL (3.2-4.5); POTASSIUM 4.2 MMOL/L (3.6-5.0)
[2021-02-24 11:28] LABS: CALCIUM 8.4 MG/DL (8.5-10.1)
[2021-02-24 11:29] LABS: TOTAL PROTEIN 6.9 GM/DL (6.4-8.2)
[2021-02-24 11:31] LABS: BILIRUBIN,TOTAL 0.2 MG/DL (0.1-1.0)
[2021-02-24 11:33] LABS: CREATININE SERUM 1.3 MG/DL (0.60-1.30)
== END ==
LOC: LAB 10:08
PROVIDERS: ATTEND Internal Medicine Rheumatology
DX: Z79.899 Other long term (current) drug therapy (principal)
CPT/HCPCS: 36415; 80053; 85025

== ENCOUNTER 2021-03-07 09:59 | Outpatient (RCR) | payer MEDICARE ==
[2020-12-28 11:10] VITALS: BP 151/94
[2021-02-01 12:20] VITALS: BP 171/81
[2021-02-01] MEDS: HEParin (CENTRAL IV FLUSH) 500 UNIT/5 ML SYR IV PRN (12:35)
[~2021-03-07] VITALS: Ht 152 cm; Wt 74.0 kg
[~2021-03-07 09:59] MED LIST changes: +HEParin (CENTRAL IV FLUSH) 500 UNIT/5 ML SYR ONE
[2021-03-07 10:00] VITALS: BP 141/85
[2021-03-07] MEDS: HEParin (CENTRAL IV FLUSH) 500 UNIT/5 ML SYR IV PRN (10:16)
== END 2021-03-07 10:15 | disposition home or self-care (01) ==
LOC: SDC 09:59
PROVIDERS: ATTEND Nurse Practitioner
DX: Z45.2 Encounter for adjustment and management of vascular access device (principal); Z95.828 Presence of other vascular implants and grafts
CPT/HCPCS: 96523

== ENCOUNTER 2021-03-26 14:10 | Emergency (ER) | payer MEDICARE ==
[~2021-03-26] VITALS: Ht 165 cm; Wt 70.0 kg
[~2021-03-26 14:10] MED LIST changes: -HEParin (CENTRAL IV FLUSH) 500 UNIT/5 ML SYR ONE
--- NOTE | 2021-03-26 14:26 | ED Chest Pain ---
General Chief Complaint: Chest Pain Stated Complaint: PAIN IN LEFT SHOULDER/ PAIN IN NECK/ CHEST PAIN Nursing Triage Note: ARRIVED VIA AMB WITH COMPLAINTS OF LEFT SIDED NECK, ARM, AND CHEST PAIN STARTING AT 0300. 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 DENIES INJURY Nursing Sepsis Screen: No Definite Risk Source: patient Exam Limitations: no limitations (JARED ODELL APRN) History of Present Illness Date Seen by Provider: Mar 26, 2021 Time Seen by Provider: 14:25 Initial Comments To ER with reports of sharp left-sided chest pain worsened by movement and breathing that awakened her from sleep at 3 AM this morning. Chronic unchanged cough. She is a little short of breath. Timing/Duration: changing over time Severity/Quality: moderate Location: central Radiation: no radiation Activities at Onset: none ASA po SENSOR OPERATOR: No NTG SL SENSOR OPERATOR: No Associated Symptoms: shortness of breath (JARED ODELL APRN) Allergies and Home Medications Allergies Coded Allergies: clopidogrel (Verified Allergy, Severe, BLOOD CLOTS, 11/27/18) Penicillins (Verified Allergy, Mild, RASH, 11/27/18) carisoprodol (Verified Allergy, Mild, RASH, 11/27/18) cephalexin (Verified Allergy, Mild, RASH, 11/27/18) ketorolac (Verified Allergy, Mild, RASH, 11/27/18) prochlorperazine (Verified Allergy, Mild, RASH, 11/27/18) Carbamates (Verified Allergy, Unknown, Rash, 05/28/19) Home Medications Albuterol Sulfate 2.5 Mg/3 Ml Vial.neb, 2 PUFF INH Q4H PRN for SHORTNESS OF BREATH Prescribed by: DASIA FRANKLIN on 11/25/20 1101 Amlodipine Besylate 10 Mg Tablet, 10 MG PO DAILY, (Reported) Aspirin 81 Mg Tablet.dr, 81 MG PO DAILY Prescribed by: OLIVE ISAAC on 11/21/20 1010 Atorvastatin Calcium 40 Mg Tablet, 40 MG PO HS, (Reported) Cholecalciferol (Vitamin D3) 50 Mcg Tablet, 50 MCG PO DAILY, (Reported) Codeine/Butalbital/ASA/Caffein 1 Each Capsule, 1 EACH PO DAILY PRN for MIGRAINE, (Reported) Duloxetine HCl 30 Mg Capsule.dr, 30 MG PO DAILY, (Reported) TAKE ALONG WITH 60MG CAP FOR A TOTAL DAILY DOSE OF 90MG Folic Acid 1 Mg Tablet, 1 MG PO DAILY, (Reported) Furosemide 40 Mg Tablet, 40 MG PO DAILY PRN for EDEMA Prescribed by: OLIVE ISAAC on 11/21/20 1010 Hydrocodone/Acetaminophen 1 Each Tablet, 1-2 EACH PO Q4-6 HOURS PRN for PAIN Prescribed by: RAPHAEL DUNCAN on 11/26/202106 Hydroxychloroquine Sulfate 200 Mg Tablet, 200 MG PO BID, (Reported) Hyoscyamine Sulfate 0.125 Mg Tab.subl, 0.25 MG SL Q4H Prescribed by: RAPHAEL DUNCAN on 11/26/202106 Levetiracetam 500 Mg Tablet, 500 MG PO BID Prescribed by: OLIVE ISAAC on 11/21/20 1010 Metoprolol Succinate 100 Mg Tab.er.24h, 100 MG PO DAILY, (Reported) Nitrofurantoin Macrocrystal 100 Mg Capsule, 100 MG PO BID Prescribed by: ARGELIA CA on 02/06/21 1309 Ondansetron 4 Mg Tab.rapdis, 4 MG PO Q4H PRN for NAUSEA-1ST LINE Prescribed by: DASIA FRANKLIN on 11/25/20 1101 Ondansetron 8 Mg Tab.rapdis, 8 MG PO Q6H Prescribed by: RAPHAEL DUNCAN on 11/26/202106 Pantoprazole Sodium 40 Mg Tablet.dr, 40 MG PO DAILY, (Reported) Pantoprazole Sodium 40 Mg Tablet.dr, 40 MG PO DAILY Prescribed by: RAPHAEL DUNCAN on 11/26/202106 Prednisone 20 Mg Tab, 40 MG PO DAILY Prescribed by: JARED ODELL on 03/26/21 1523 Topiramate 50 Mg Tablet, 75 MG PO BID, (Reported) TAKE 1 & 1/2 OF 50MG TAB Patient Home Medication List Home Medication List Reviewed: Yes (JARED ODELL APRN) Review of Systems Review of Systems Constitutional: see HPI EENTM: No Symptoms Reported Respiratory: See HPI, Cough, Shortness of Air Cardiovascular: See HPI, Chest Pain Gastrointestinal: No Symptoms Reported Genitourinary: No Symptoms Reported Musculoskeletal: no symptoms reported Skin: no symptoms reported Psychiatric/Neurological: No Symptoms Reported Endocrine: No Symptoms Reported Hematologic/Lymphatic: No Symptoms Reported (JARED ODELL APRN) Past Difnyka-Bjmpxg-Tudsyb Hx Patient Social History Alcohol Use: Denies Use Drug of Choice: DENIES Smoking Status: Never a Smoker 2nd Hand Smoke Exposure: No Recent Infectious Disease Expo: No Recent Hopitalizations: Yes (covid-19 on Nov 16) (JARED ODELL APRN) Immunizations Up To Date Tetanus Booster (TDap): Unknown Date of Pneumonia Vaccine: Jul 29, 2017 Date of Influenza Vaccine: Jun 30, 2020 (JARED ODELL APRN) Seasonal Allergies Seasonal Allergies: No (JARED ODELL APRN) Past Medical History Surgeries: Yes (R CTR, espohageal ligation x2, Hernia, L RCR, L TKR, laparotomy, MRSA infec) Abdominal, Breast, Cardiac, Coronary Stent, Hysterectomy, Joint Replacement, Oophorectomy, Orthopedic, Thyroidectomy Respiratory: Yes (COVID-19 November 07, 2020-ADMITTED WITH PNEUMONIA) Pneumonia Currently Using CPAP: No Currently Using BIPAP: No Cardiac: Yes (HX HEART CATH-STENT;MILD BILAT CAROTID STENOSIS;DVT L ARM DUE TO PICC LINE) Coronary Artery Disease, Deep Vein Thrombosis, Heart Attack, High Cholesterol, Hypertension, Peripheral Vascular Neurological: Yes Headaches /Migraines, Neuropathy 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, 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 Sexually Transmitted Disease: No HIV/AIDS: No Genitourinary: Yes (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,STAGE 2-KIDNEY DISEASE;DIABETIC NEPHROPA ) Bladder Infection, Renal Failure, Dialysis Gastrointestinal: Yes (HX GI BLEED, zenkers syndrome-chokes easily, hx hep A;LIVER INJURY/TRAUMA) Abdominal Hernia, Gastroesophageal Reflux, Gastrointestinal Bleed, Esophageal Varices, Hepatitis Musculoskeletal: Yes (OSTEOARTHRITIS, BULGING DISCS) Arthritis, Chronic Back Pain Endocrine: Yes (partial thyroidectomy) Diabetes, Insulin dep, Hypothyroidsim HEENT: Yes (GLASSES, UPPER DENTURES) Glaucoma Loss of Vision: Bilateral Cancer: Yes Breast Did You Recieve Any Treatments: Yes What Type of Treatment Did You: Radiation, Surgical Intervention Psychosocial: No Integumentary: No Blood Disorders: Yes (IRON DEFFICIENCY ANEMIA-GETS IRON INFUSIONS) Adverse Reaction/Blood Tranf: No (HAS HAD BLOOD WITH NO REACTION) (JARED ODELL APRN) Family Medical History Hypertension G8 BROTHER Not obtainable due to adoption 19 FATHER Heart Disease, Hypertension ADDITIONAL PAST SURGICAL HISTORY -ZENKER'S DIVERTICULUM SURGERY X 2 -ABDOMINAL HERNIA REPAIR WITH MESH -MESH REMOVAL AND LYSIS OF ADHESIONS -HYST/BSO -LOOP RECORDER -PORT LEFT CHEST -LEFT BREAST LUMPECTOMY -CARDIAC CATH WITH STENT X 1 TO RCA 2010 -PORT LEFT CHEST -RIGHT SHOULDER REPLACEMENT -RENAL ARTERY STENOSIS WITH STENT 2013 (JARED ODELL APRN) Physical Exam Vital Signs Vital Signs - First Documented 03/26/21 14:10 Temp 37.0 Pulse 85 Resp 16 B/P (MAP) 138/70 (92) Pulse Ox 97 O2 Delivery Room Air (ELODIA SILVERMAN MD) Vital Signs Capillary Refill : Less Than 3 Seconds (JARED ODELL APRN) Height, Weight, BMI Height: 5'4.00" Weight: 216lbs. 4.2oz. 98.489497bj; 25.00 BMI Method:Stated General Appearance: No Apparent Distress, WD/WN HEENT: PERRL/EOMI, TMs Normal Respiratory: No Accessory Muscle Use, No Respiratory Distress Cardiovascular: Regular Rate, Rhythm, Normal Peripheral Pulses Gastrointestinal: Non Tender, Soft Extremity: Normal Capillary Refill, Normal Inspection Neurologic/Psychiatric: Alert, Oriented x3 Skin: Normal Color, Warm/Dry (JARED ODELL APRN) Progress/Results/Core Measures Results/Orders Lab Results Laboratory Tests Test 03/26/21 14:28 Range/Units White Blood Count 7.0 4.3-11.0 10^3/uL Red Blood Count 4.39 3.80-5.11 10^6/uL Hemoglobin 12.4 11.5-16.0 g/dL Hematocrit 38 35-52 % Mean Corpuscular Volume 86 80-99 fL Mean Corpuscular Hemoglobin 28 25-34 pg Mean Corpuscular Hemoglobin Concent 33 32-36 g/dL Red Cell Distribution Width 12.8 10.0-14.5 % Platelet Count 249 130-400 10^3/uL Mean Platelet Volume 9.5 9.0-12.2 fL Immature Granulocyte % (Auto) 0 % Neutrophils (%) (Auto) 63 42-75 % Lymphocytes (%) (Auto) 25 12-44 % Monocytes (%) (Auto) 9 0-12 % Eosinophils (%) (Auto) 2 0-10 % Basophils (%) (Auto) 1 0-10 % Neutrophils # (Auto) 4.4 1.8-7.8 10^3/uL Lymphocytes # (Auto) 1.8 1.0-4.0 10^3/uL Monocytes # (Auto) 0.6 0.0-1.0 10^3/uL Eosinophils # (Auto) 0.2 0.0-0.3 10^3/uL Basophils # (Auto) 0.1 0.0-0.1 10^3/uL Immature Granulocyte # (Auto) 0.0 0.0-0.1 10^3/uL Prothrombin Time 13.3 12.2-14.7 SEC INR Comment 1.0 0.8-1.4 Activated Partial Thromboplast Time 53 H 24-35 SEC D-Dimer 0.60 H 0.00-0.49 UG/ML Sodium Level 141 135-145 MMOL/L Potassium Level 4.5 3.6-5.0 MMOL/L Chloride Level 109 H 98-107 MMOL/L Carbon Dioxide Level 19 L 21-32 MMOL/L Anion Gap 13 5-14 MMOL/L Blood Urea Nitrogen 19 H 7-18 MG/DL Creatinine 1.56 H 0.60-1.30 MG/DL Estimat Glomerular Filtration Rate 33 BUN/Creatinine Ratio 12 Glucose Level 188 H 70-105 MG/DL Calcium Level 8.4 L 8.5-10.1 MG/DL Corrected Calcium 8.6 8.5-10.1 MG/DL Magnesium Level 2.0 1.6-2.4 MG/DL Total Bilirubin 0.3 0.1-1.0 MG/DL Aspartate Amino Transf (AST/SGOT) 11 5-34 U/L Alanine Aminotransferase (ALT/SGPT) 9 0-55 U/L Alkaline Phosphatase 96 40-136 U/L Myoglobin 72.7 10.0-92.0 NG/ML Troponin I < 0.028 <0.028 NG/ML B-Type Natriuretic Peptide 44.4 <100.0 PG/ML Total Protein 6.9 6.4-8.2 GM/DL Albumin 3.8 3.2-4.5 GM/DL Lipase 53 8-78 U/L (ELODIA SILVERMAN MD) Vital Signs/I&O 03/26/21 03/26/21 14:10 15:29 Temp 37.0 37.0 Pulse 85 81 Resp 16 16 B/P (MAP) 138/70 (92) 133/71 (92) Pulse Ox 97 97 O2 Delivery Room Air (ELODIA SILVERMAN MD) Blood Pressure Mean: 92 Progress Progress Note : Progress Note I was physically present in the emergency department as attending physician during the care of this patient, but I was not directly involved in this patient's care. (ELODIA SILVERMAN MD) Departure Communication (PCP) 1515-she now has pain between the base of her neck and her left shoulder at the top of the trapezius muscle. She has some tenderness to this area. We tried a injection of 2 mL of lidocaine into the muscle as a trigger point injection to see if this helps. It did not. She states that she has difficulty turning her neck and the pain goes down the left arm. This may be a cervical radiculopathy. As such I will give her a prescription for some prednisone. Her troponin is negative despite 11 hours of pain. (JARED ODELL APRN) Impression Primary Impression: Cervical radiculopathy Additional Impression: Torticollis Disposition: 01 HOME, SELF-CARE Condition: Stable Departure-Patient Inst. Decision time for Depature: 15:16 (JARED ODELL APRN) Referrals: [facility] – [place], [place] (PCP) Primary Care Physician JAVIER MOSS (Family) Primary Care Physician Patient Instructions: Radiculopathy, Torticollis (DC) Add. Discharge Instructions: . Warm compresses to the area. Return to ER for any concerns. All discharge instructions reviewed with patient and/or family. Voiced understan cristal. Scripts Prednisone (Prednisone) 20 Mg Tab 40 MG PO DAILY, #8 TAB 0 Refills Prov: JARED ODELL APRN 03/26/21 Images Torso/Trunk 1 - (JARED ODELL APRN) JARED ODELL APRN Mar 26, 2021 14:26 ELODIA SILVERMAN MD Mar 27, 2021 09:51
[2021-03-26] MEDS ORDERED: ASPIRIN 81 MG CHEW (CHILDREN'S ASA) PO ONE (14:30)
[2021-03-26 14:34] LABS: BASOPHILS # (AUTO) 0.1 10^3/uL (0.0-0.1); BASOPHILS % (AUTO) 1 % (0-10); EOSINOPHILS # (AUTO) 0.2 10^3/uL (0.0-0.3); EOSINOPHILS % (AUTO) 2 % (0-10); HEMATOCRIT 38 % (35-52); HEMOGLOBIN 12.4 g/dL (11.5-16.0); LYMPHOCYTES # (AUTO) 1.8 10^3/uL (1.0-4.0); LYMPHOCYTES % (AUTO) 25 % (12-44); MEAN CORPUSCULAR HEMOGLOBIN 28 pg (25-34); MEAN CORPUSCULAR HGB CONC 33 g/dL (32-36); MEAN CORPUSCULAR VOLUME 86 fL (80-99); MEAN PLATELET VOLUME 9.5 fL (9.0-12.2); MONOCYTES # (AUTO) 0.6 10^3/uL (0.0-1.0); MONOCYTES % (AUTO) 9 % (0-12); NEUTROPHILS # (AUTO) 4.4 10^3/uL (1.8-7.8); NEUTROPHILS % (AUTO) 63 % (42-75); PLATELET COUNT 249 10^3/uL (130-400)
[2021-03-26 14:47] LABS: ALBUMIN 3.8 GM/DL (3.2-4.5); CHLORIDE 109 MMOL/L (98-107); POTASSIUM 4.5 MMOL/L (3.6-5.0); SODIUM 141 MMOL/L (135-145)
[2021-03-26 14:48] LABS: CALCIUM 8.4 MG/DL (8.5-10.1)
[2021-03-26 14:49] LABS: GLUCOSE 188 MG/DL (70-105); TOTAL PROTEIN 6.9 GM/DL (6.4-8.2)
[2021-03-26 14:50] LABS: CARBON DIOXIDE 19 MMOL/L (21-32)
[2021-03-26 14:51] LABS: BILIRUBIN,TOTAL 0.3 MG/DL (0.1-1.0); FIBRIN DEGRADATION PRODUCTS 0.6 UG/ML (0.00-0.49); PROTHROMBIN TIME PATIENT 13.3 SEC (12.2-14.7)
--- NOTE | 2021-03-26 14:52 | Diagnostic Imaging Report ---
INDICATION: Chest pain. TECHNIQUE: Single view chest 2:44 PM. CORRELATION STUDY: 12/13/2020 FINDINGS: Left subclavian Yduier-a-Mgac catheter tip over the right atrium, stable. Loop recorder device over the cardiac apex. Heart size and mediastinum appear stable. Elevated right diaphragm. Lung mullen overall are generally clear. Surgical clips over the left axilla. Surgical changes of the right humeral head. IMPRESSION: 1. Elevated right diaphragm with basilar lung volume loss. Dictated by: Dictated on workstation # [id number]
[2021-03-26 14:53] LABS: ALKALINE PHOSPHATASE 96 U/L (40-136); CREATININE SERUM 1.56 MG/DL (0.60-1.30); GFR ESTIMATED 33
[2021-03-26 14:54] LABS: BUN/CREATININE RATIO 12
[2021-03-26 14:56] LABS: ALANINE AMINOTRANSFERASE 9 U/L (0-55)
[2021-03-26 14:57] LABS: LIPASE 53 U/L (8-78)
[2021-03-26] MEDS ORDERED: fentaNYL INJ 100 MCG/2 ML AMP IVP ONE (15:00)
[2021-03-26] MEDS ORDERED: LIDOCAINE 1% INJ 20 ML 20 ML VIAL ONE (15:01)
[2021-03-26] MEDS ORDERED: ORPHENADRINE 60 MG/2 ML (NORFLEX) AMP (ED ONLY) IV ONE (15:15)
[2021-03-26] MEDS ORDERED: LIDOCAINE 1% INJ 20 ML 20 ML VIAL INJ ONE (15:15)
[2021-03-26] MEDS ORDERED: PRD20T PO (15:23)
[2021-03-26 15:29] VITALS: BP 133/71
== END 2021-03-26 15:29 | disposition home or self-care (01) ==
LOC: EDUNIT# 14:10 → ER 14:13
DX: M54.12 Radiculopathy, cervical region (principal); M43.6 Torticollis; I25.2 Old myocardial infarction; I10 Essential (primary) hypertension; E78.00 Pure hypercholesterolemia, unspecified; I25.10 Atherosclerotic heart disease of native coronary artery without angina pectoris; K21.9 Gastro-esophageal reflux disease without esophagitis; E11.9 Type 2 diabetes mellitus without complications; G89.29 Other chronic pain; M54.9 Dorsalgia, unspecified; Z88.0 Allergy status to penicillin; Z88.1 Allergy status to other antibiotic agents; Z88.8 Allergy status to other drugs, medicaments and biological substances; Z88.6 Allergy status to analgesic agent; Z79.52 Long term (current) use of systemic steroids; Z79.899 Other long term (current) drug therapy; Z79.82 Long term (current) use of aspirin; Z79.891 Long term (current) use of opiate analgesic
CPT/HCPCS: 36415; 71045; 80053; 83690; 83735; 83874; 83880; 84484; 85025; 85379; 85610; 85730; 93005; 93041

== ENCOUNTER 2021-04-23 19:19 | Emergency (ER) | payer MEDICARE ==
[~2021-04-23] VITALS: Ht 162.5 cm; Wt 772.5 kg
[~2021-04-23 19:19] MED LIST changes: +PRD20T PO
--- NOTE | 2021-04-23 19:57 | ED Fall/Injury ---
General Chief Complaint: Trauma-Non Activation Stated Complaint: FALL/LEFT LEG INJURY Nursing Triage Note: PT FELL YESTERDAY AFTERNOON AND HURT L LEG, R ARM AND R FOOT. ALSO HIT BACK OF HEAD Source: patient Exam Limitations: no limitations History of Present Illness Date Seen by Provider: Apr 23, 2021 Time Seen by Provider: 19:20 Initial Comments Patient to the ER by private conveyance with chief complaint she had a fall about 3:00 yesterday afternoon while going up some stairs when she turned around and fell backwards onto the stairs. She struck the back of her head did not lose consciousness. She has some tenderness in her neck at the top of her cervical spine without any numbness or tingling. She has pain in her left trapezius as well as bruising and hematomas on her lower extremities left worse than right. She is been using elevation, ice, hydrocodone without successful control of her pain. She is not on blood thinners but she does take aspirin daily. Allergies and Home Medications Allergies Coded Allergies: clopidogrel (Verified Allergy, Severe, BLOOD CLOTS, 11/27/18) Penicillins (Verified Allergy, Mild, RASH, 11/27/18) carisoprodol (Verified Allergy, Mild, RASH, 11/27/18) cephalexin (Verified Allergy, Mild, RASH, 11/27/18) ketorolac (Verified Allergy, Mild, RASH, 11/27/18) prochlorperazine (Verified Allergy, Mild, RASH, 11/27/18) Carbamates (Verified Allergy, Unknown, Rash, 05/28/19) Home Medications Albuterol Sulfate 2.5 Mg/3 Ml Vial.neb, 2 PUFF INH Q4H PRN for SHORTNESS OF BREATH Prescribed by: DASIA FRANKLIN on 11/25/20 1101 Amlodipine Besylate 10 Mg Tablet, 10 MG PO DAILY, (Reported) Aspirin 81 Mg Tablet., 81 MG PO DAILY Prescribed by: OLIVE ISAAC on 11/21/20 1010 Atorvastatin Calcium 40 Mg Tablet, 40 MG PO HS, (Reported) Cholecalciferol (Vitamin D3) 50 Mcg Tablet, 50 MCG PO DAILY, (Reported) Codeine/Butalbital/ASA/Caffein 1 Each Capsule, 1 EACH PO DAILY PRN for MIGRAINE, (Reported) Duloxetine HCl 30 Mg Capsule.dr, 30 MG PO DAILY, (Reported) TAKE ALONG WITH 60MG CAP FOR A TOTAL DAILY DOSE OF 90MG Folic Acid 1 Mg Tablet, 1 MG PO DAILY, (Reported) Furosemide 40 Mg Tablet, 40 MG PO DAILY PRN for EDEMA Prescribed by: OLIVE ISAAC on 11/21/20 1010 Hydrocodone/Acetaminophen 1 Each Tablet, 1-2 EACH PO Q4-6 HOURS PRN for PAIN Prescribed by: RAPHAEL DUNCAN on 11/26/202106 Hydroxychloroquine Sulfate 200 Mg Tablet, 200 MG PO BID, (Reported) Hyoscyamine Sulfate 0.125 Mg Tab.subl, 0.25 MG SL Q4H Prescribed by: RAPHAEL DUNCAN on 11/26/202106 Levetiracetam 500 Mg Tablet, 500 MG PO BID Prescribed by: OLIVE ISAAC on 11/21/20 1010 Metoprolol Succinate 100 Mg Tab.er.24h, 100 MG PO DAILY, (Reported) Nitrofurantoin Macrocrystal 100 Mg Capsule, 100 MG PO BID Prescribed by: ARGELIA CA on 02/06/21 1309 Ondansetron 4 Mg Tab.rapdis, 4 MG PO Q4H PRN for NAUSEA-1ST LINE Prescribed by: DASIA FRANKLIN on 11/25/20 1101 Ondansetron 8 Mg Tab.rapdis, 8 MG PO Q6H Prescribed by: RAPHAEL DUNCAN on 11/26/202106 Pantoprazole Sodium 40 Mg Tablet.dr, 40 MG PO DAILY, (Reported) Pantoprazole Sodium 40 Mg Tablet.dr, 40 MG PO DAILY Prescribed by: RAPHAEL DUNCAN on 11/26/202106 Prednisone 20 Mg Tab, 40 MG PO DAILY Prescribed by: JARED ODELL on 03/26/21 1523 Topiramate 50 Mg Tablet, 75 MG PO BID, (Reported) TAKE 1 & 1/2 OF 50MG TAB Patient Home Medication List Home Medication List Reviewed: Yes Review of Systems Review of Systems Constitutional: No chills, No malaise Eyes: Denies Blindness, Denies Blurred Vision Ears, Nose, Mouth, Throat: denies ear pain, denies ear discharge Respiratory: No cough, No short of breath Cardiovascular: No chest pain, No palpitations Gastrointestinal: No abdominal pain; nausea Musculoskeletal: joint pain (Left leg left shoulder neck), neck pain All Other Systems Reviewed Negative Unless Noted: Yes Past Nozczao-Nabijp-Mubgnu Hx Patient Social History Tobacco Use?: No Use of E-Cig and/or Vaping dev: No Substance use?: No Immunizations Up To Date Tetanus Booster (TDap): Unknown Seasonal Allergies Seasonal Allergies: No Past Medical History Surgeries: Yes (R CTR, espohageal ligation x2, Hernia, L RCR, L TKR, l aparotomy, MRSA infec) Abdominal, Breast, Cardiac, Coronary Stent, Hysterectomy, Joint Replacement, Oophorectomy, Orthopedic, Thyroidectomy Respiratory: Yes (COVID-19 November 07, 2020-ADMITTED WITH PNEUMONIA) Pneumonia Currently Using CPAP: No Currently Using BIPAP: No Cardiac: Yes (HX HEART CATH-STENT;MILD BILAT CAROTID STENOSIS;DVT L ARM DUE TO PICC LINE) Coronary Artery Disease, Deep Vein Thrombosis, Heart Attack, High Cholesterol, Hypertension, Peripheral Vascular Neurological: Yes Headaches /Migraines, Neuropathy [employer] History: Hysterectomy, Menopausal Sexually Transmitted Disease: No HIV/AIDS: No Genitourinary: Yes (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,STAGE 2-KIDNEY DISEASE;DIABETIC NEPHROPA ) Bladder Infection, Renal Failure, Dialysis Gastrointestinal: Yes (HX GI BLEED, zenkers syndrome-chokes easily, hx hep A;LIVER INJURY/TRAUMA) Abdominal Hernia, Gastroesophageal Reflux, Gastrointestinal Bleed, Esophageal Varices, Hepatitis Musculoskeletal: Yes (OSTEOARTHRITIS, BULGING DISCS) Arthritis, Chronic Back Pain Endocrine: Yes (partial thyroidectomy) Diabetes, Insulin dep, Hypothyroidsim HEENT: Yes (GLASSES, UPPER DENTURES) Glaucoma Loss of Vision: Bilateral Cancer: Yes Breast Did You Recieve Any Treatments: Yes What Type of Treatment Did You: Radiation, Surgical Intervention Psychosocial: No Integumentary: No Blood Disorders: Yes (IRON DEFFICIENCY ANEMIA-GETS IRON INFUSIONS) Adverse Reaction/Blood Tranf: No (HAS HAD BLOOD WITH NO REACTION) Family Medical History Hypertension G8 BROTHER Not obtainable due to adoption 19 FATHER Heart Disease, Hypertension ADDITIONAL PAST SURGICAL HISTORY -ZENKER'S DIVERTICULUM SURGERY X 2 -ABDOMINAL HERNIA REPAIR WITH MESH -MESH REMOVAL AND LYSIS OF ADHESIONS -HYST/BSO -LOOP RECORDER -PORT LEFT CHEST -LEFT BREAST LUMPECTOMY -CARDIAC CATH WITH STENT X 1 TO RCA 2009 -PORT LEFT CHEST -RIGHT SHOULDER REPLACEMENT -RENAL ARTERY STENOSIS WITH STENT 2013 Physical Exam Vital Signs Vital Signs - First Documented 04/23/21 19:25 Temp 35.7 Pulse 100 B/P (MAP) 163/111 (128) Capillary Refill : Less Than 3 Seconds Height, Weight, BMI Height: 5'4.00" Weight: 216lbs. 4.2oz. 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 as tested, no motor/sensory deficits, alert, normal mood/affect, oriented x 3 Skin: warm/dry, ecchymosis (Bilateral lower extremities) Dane Coma Score Best Eye Response: (4) Open Spontaneously Best Verbal Response: (5) Oriented Best Motor Response: (6) Obeys Commands [place] Total: 15 Progress/Results/Core Measures Results/Orders My Orders Orders - GUSTABO CARRINGTON Ct Head/Cervical Spine Wo (04/23/21 19:51) Tibia/Fibula, Left, 2 Views (04/23/21 19:51) Hydrocodone/Apap 10/325 Tablet (Lortab 1 (04/23/21 20:00) Medications Given in ED Current Medications Medications Dose Ordered Sig/Ana María Route Start Time Stop Time Status Last Admin Dose Admin Acetaminophen/ Hydrocodone Bitart 1 ea ONCE ONCE PO 04/23/21 20:00 04/23/21 20:01 DC 04/23/21 20:00 1 EA Vital Signs/I&O 04/23/21 19:25 Temp 35.7 Pulse 100 B/P (MAP) 163/111 (128) Blood Pressure Mean: 128 Progress Progress Note : Time: 19:56 Progress Note Hydrocodone 10 x 325 to address her pain. CT of her head and C-spine to rule out significant fracture or intracranial pathology. She is having some tenderness over her left lower extremity on the fibular head proximally so an x-ray of the tib-fib left side will be obtained. No tenderness over her left shoulder itself. Diagnostic Imaging Diagonstic Imaging: CT (Noncontrast) Plain Films/CT/US/NM/MRI: c-spine, head Comments NAME: KEO AGUIRRE [facility] REC#: [id number] PT STATUS: REG ER : 1950 PHYSICIAN: GUSTABO CARRINGTON MD ADMIT DATE: 04/23/21/ER Draft Date of Exam:04/23/21 CT HEAD/CERVICAL SPINE WO PROCEDURE: CT head and CT cervical spine without contrast. TECHNIQUE: Multiple contiguous axial images were obtained through the brain and cervical spine without the use of intravenous contrast. Sagittal and coronal reformations through the cervical spine were then performed. Auto Exposure Controls were utilized during the CT exam to meet ALARA standards for radiation dose reduction. INDICATION: Fall. Scalp contusion. Head and neck pain. COMPARISON: 06/30/2020. FINDINGS: CT head: No large acute territorial ischemia, mass or hemorrhage. No midline shift or mass effect. The ventricles, cortical sulci and basilar cisterns are patent and unremarkable. The calvarium is intact. The visualized paranasal sinuses are clear. CT cervical spine: No acute fracture or dislocation is seen in the cervical spine. No focal osseous lesion. Vertebral body heights are well maintained. The craniocervical junction is well maintained. Mild degenerative changes are seen in the cervical spine with disc osteophyte complexes and uncovertebral arthropathy. Soft tissues of the neck are unremarkable. IMPRESSION: 1. No hemorrhage or focal intra-axial mass. No CT evidence of large acute territorial ischemia. 2. No acute fracture or dislocation in the cervical spine. Dictated on workstation # [id number] Dict: 04/23/212047 Trans: 04/23/212053 [facility] [id number] Interpreted by: TEODORA BECKER DO Electronically signed by: Reviewed: Reviewed by Me Diagonstic Imaging: Xray Plain Films/CT/US/NM/MRI: leg (Left tibia/fibula) Comments NAME: KEO AGUIRRE [facility] REC#: [id number] PT STATUS: REG ER : 1950 PHYSICIAN: GUSTABO CARRINGTON MD ADMIT DATE: 04/23/21/ER Signed Date of Exam:04/23/21 TIBIA/FIBULA, LEFT, 2 VIEWS CLINICAL HISTORY: Fall. Left leg pain. COMPARISON: None. TECHNIQUE: Two views of the left tibia and fibula. FINDINGS: There is no acute fracture or dislocation of the left tibia and fibula. Alignment is anatomic. Prior left total knee arthroplasty changes are visualized. No focal osseous lesion is seen. IMPRESSION: No acute fracture or dislocation of the left tibia and fibula. Dictated by: Dictated on workstation # [id number] Dict: 04/23/212043 Trans: 04/23/212046 [facility] [id number] Interpreted by: TEODORA BECKER DO Electronically signed by: TEODORA BECKER DO 04/23/212046 Reviewed: Reviewed by Me Departure Impression Primary Impression: Fall on stairs Qualified Codes: W10.9XXA - Fall (on) (from) unspecified stairs and steps, initial encounter Additional Impressions: Contusion Qualified Codes: S80.12XA - Contusion of left lower leg, initial encounter Shoulder pain Qualified Codes: M25.512 - Pain in left shoulder Concussion Qualified Codes: S06.0X0A - Concussion without loss of consciousness, initial encounter Disposition: 01 HOME, SELF-CARE Condition: Stable Departure-Patient Inst. Decision time for Depature: 21:01 Referrals: [facility] [place]) Primary Care Physician JAVIER MOSS (Family) Primary Care Physician Patient Instructions: Concussion, Adult (DC), Shoulder Pain (DC) Add. Discharge Instructions: Tylenol and topical creams such as icy hot or Biofreeze. Compression over the swelling areas and keep them elevated above the level of your heart. Ice 20 minutes on every 2 hours for the first 2 days followed by heat. All discharge instructions reviewed with patient and/or family. Voiced understanding. GUSTABO CARRINGTON Apr 23, 2021 19:57
--- NOTE | 2021-04-23 20:49 | Diagnostic Imaging Report ---
CLINICAL HISTORY: Fall. Left leg pain. COMPARISON: None. TECHNIQUE: Two views of the left tibia and fibula. FINDINGS: There is no acute fracture or dislocation of the left tibia and fibula. Alignment is anatomic. Prior left total knee arthroplasty changes are visualized. No focal osseous lesion is seen. IMPRESSION: No acute fracture or dislocation of the left tibia and fibula. Dictated by: Dictated on workstation # [id number]
--- NOTE | 2021-04-23 20:54 | Diagnostic Imaging Report ---
PROCEDURE: CT head and CT cervical spine without contrast. TECHNIQUE: Multiple contiguous axial images were obtained through the brain and cervical spine without the use of intravenous contrast. Sagittal and coronal reformations through the cervical spine were then performed. Auto Exposure Controls were utilized during the CT exam to meet ALARA standards for radiation dose reduction. INDICATION: Fall. Scalp contusion. Head and neck pain. COMPARISON: 06/30/2020. FINDINGS: CT head: No large acute territorial ischemia, mass or hemorrhage. No midline shift or mass effect. The ventricles, cortical sulci and basilar cisterns are patent and unremarkable. The calvarium is intact. The visualized paranasal sinuses are clear. CT cervical spine: No acute fracture or dislocation is seen in the cervical spine. No focal osseous lesion. Vertebral body heights are well maintained. The craniocervical junction is well maintained. Mild degenerative changes are seen in the cervical spine with disc osteophyte complexes and uncovertebral arthropathy. Soft tissues of the neck are unremarkable. IMPRESSION: 1. No hemorrhage or focal intra-axial mass. No CT evidence of large acute territorial ischemia. 2. No acute fracture or dislocation in the cervical spine. Dictated by: Dictated on workstation # [id number]
[2021-04-23 21:08] VITALS: BP 144/76
== END 2021-04-23 21:08 | disposition home or self-care (01) ==
LOC: EDUNIT# 19:19 → ER 19:21
DX: S06.0X0A Concussion without loss of consciousness, initial encounter (principal); S80.12XA Contusion of left lower leg, initial encounter; E78.00 Pure hypercholesterolemia, unspecified; K21.9 Gastro-esophageal reflux disease without esophagitis; I25.2 Old myocardial infarction; I10 Essential (primary) hypertension; I25.10 Atherosclerotic heart disease of native coronary artery without angina pectoris; G89.29 Other chronic pain; M54.9 Dorsalgia, unspecified; E11.9 Type 2 diabetes mellitus without complications; Z88.6 Allergy status to analgesic agent; Z79.82 Long term (current) use of aspirin; Z79.52 Long term (current) use of systemic steroids; Z79.899 Other long term (current) drug therapy; Z79.891 Long term (current) use of opiate analgesic; W10.8XXA Fall (on) (from) other stairs and steps, initial encounter
CPT/HCPCS: 70450; 72125; 73590

== ENCOUNTER → 2021-05-01 | Outpatient (CLI) | payer MEDICARE ==
[2021-05-01 12:29] LABS: BASOPHILS # (AUTO) 0.1 10^3/uL (0.0-0.1); BASOPHILS % (AUTO) 1 % (0-10); EOSINOPHILS # (AUTO) 0.2 10^3/uL (0.0-0.3); EOSINOPHILS % (AUTO) 2 % (0-10); HEMATOCRIT 44 % (35-52); HEMOGLOBIN 13.6 g/dL (11.5-16.0); LYMPHOCYTES # (AUTO) 1.7 10^3/uL (1.0-4.0); LYMPHOCYTES % (AUTO) 22 % (12-44); MEAN CORPUSCULAR HEMOGLOBIN 28 pg (25-34); MEAN CORPUSCULAR HGB CONC 31 g/dL (32-36); MEAN CORPUSCULAR VOLUME 90 fL (80-99); MEAN PLATELET VOLUME 9.6 fL (9.0-12.2); MONOCYTES # (AUTO) 0.6 10^3/uL (0.0-1.0); MONOCYTES % (AUTO) 8 % (0-12); NEUTROPHILS # (AUTO) 5.1 10^3/uL (1.8-7.8); NEUTROPHILS % (AUTO) 66 % (42-75); PLATELET COUNT 281 10^3/uL (130-400); WHITE BLOOD COUNT 7.7 10^3/uL (4.3-11.0)
[2021-05-01 12:38] LABS: POTASSIUM 4.2 MMOL/L (3.6-5.0)
[2021-05-01 12:39] LABS: CALCIUM 8.8 MG/DL (8.5-10.1)
[2021-05-01 12:41] LABS: TOTAL PROTEIN 7.1 GM/DL (6.4-8.2)
[2021-05-01 12:42] LABS: BILIRUBIN,TOTAL 0.4 MG/DL (0.1-1.0)
[2021-05-01 12:44] LABS: CREATININE SERUM 1.45 MG/DL (0.60-1.30)
== END ==
LOC: LAB 12:13
PROVIDERS: ATTEND Internal Medicine Rheumatology
DX: Z79.899 Other long term (current) drug therapy (principal)
CPT/HCPCS: 36415; 80053; 85025

== ENCOUNTER 2021-05-07 17:27 | Emergency (ER) | payer MEDICARE ==
[~2021-05-07] VITALS: Ht 162 cm; Wt 72.0 kg
[2021-05-07 18:03] LABS: BASOPHILS # (AUTO) 0.1 10^3/uL (0.0-0.1); BASOPHILS % (AUTO) 1 % (0-10); EOSINOPHILS # (AUTO) 0.2 10^3/uL (0.0-0.3); EOSINOPHILS % (AUTO) 3 % (0-10); HEMATOCRIT 38 % (35-52); HEMOGLOBIN 12.1 g/dL (11.5-16.0); LYMPHOCYTES # (AUTO) 1.9 10^3/uL (1.0-4.0); LYMPHOCYTES % (AUTO) 27 % (12-44); MEAN CORPUSCULAR HEMOGLOBIN 28 pg (25-34); MEAN CORPUSCULAR HGB CONC 32 g/dL (32-36); MEAN CORPUSCULAR VOLUME 89 fL (80-99); MEAN PLATELET VOLUME 9.9 fL (9.0-12.2); MONOCYTES # (AUTO) 0.7 10^3/uL (0.0-1.0); MONOCYTES % (AUTO) 10 % (0-12); NEUTROPHILS % (AUTO) 59 % (42-75); PLATELET COUNT 221 10^3/uL (130-400); WHITE BLOOD COUNT 6.8 10^3/uL (4.3-11.0)
--- NOTE | 2021-05-07 18:14 | ED Abdominal Pain ---
General Chief Complaint: Abdominal/GI Problems Stated Complaint: PANCREAS ATTACK, LEG PAIN,PREVIOUS FALL Nursing Triage Note: AMB TO ED C/O OF ABD PAIN THINKS SHE MAY HAVE PANCRETITIS HAD COVID IN DECEMBER AND REPORTS HAS HAD PROBLEMS WITH IT. BURSING TO LOWER LEG WITH HEMATOMA TO L LOWER LEG. REPORTS THAT SHE FELL APRIL 22 WAS SEEN IN ED FOR Source of Information: Patient Exam Limitations: No Limitations History of Present Illness Date Seen by Provider: May 07, 2021 Time Seen by Provider: 18:00 Initial Comments To ER with reports of upper abdominal pain. She feels like this is her pancreatitis flaring up. She also complains of some pain to the lateral left lower leg where she has a hematoma. This occurred after a fall on some stairs on April 22. She has had this evaluated with x-rays and was found to not be broke n. Timing/Duration: 1-2 Days Severity/Quality: Moderate Radiation: No Radiation Associated Symptoms: Denies Symptoms Allergies and Home Medications Allergies Coded Allergies: clopidogrel (Verified Allergy, Severe, BLOOD CLOTS, 11/27/18) Penicillins (Verified Allergy, Mild, RASH, 11/27/18) carisoprodol (Verified Allergy, Mild, RASH, 11/27/18) cephalexin (Verified Allergy, Mild, RASH, 11/27/18) ketorolac (Verified Allergy, Mild, RASH, 11/27/18) prochlorperazine (Verified Allergy, Mild, RASH, 11/27/18) Carbamates (Verified Allergy, Unknown, Rash, 05/28/19) Home Medications Albuterol Sulfate 2.5 Mg/3 Ml Vial.neb, 2 PUFF INH Q4H PRN for SHORTNESS OF BREATH Prescribed by: DASIA FRANKLIN on 11/25/20 1101 Amlodipine Besylate 10 Mg Tablet, 10 MG PO DAILY, (Reported) Aspirin 81 Mg Tablet.dr, 81 MG PO DAILY Prescribed by: OLIVE ISAAC on 11/21/20 1010 Atorvastatin Calcium 40 Mg Tablet, 40 MG PO HS, (Reported) Cholecalciferol (Vitamin D3) 50 Mcg Tablet, 50 MCG PO DAILY, (Reported) Codeine/Butalbital/ASA/Caffein 1 Each Capsule, 1 EACH PO DAILY PRN for MIGRAINE, (Reported) Duloxetine HCl 30 Mg Capsule.dr, 30 MG PO DAILY, (Reported) TAKE ALONG WITH 60MG CAP FOR A TOTAL DAILY DOSE OF 90MG Folic Acid 1 Mg Tablet, 1 MG PO DAILY, (Reported) Furosemide 40 Mg Tablet, 40 MG PO DAILY PRN for EDEMA Prescribed by: OLIVE ISAAC on 11/21/20 1010 Hydrocodone/Acetaminophen 1 Each Tablet, 1-2 EACH PO Q4-6 HOURS PRN for PAIN Prescribed by: RAPHAEL DUNCAN on 11/26/202106 Hydroxychloroquine Sulfate 200 Mg Tablet, 200 MG PO BID, (Reported) Hyoscyamine Sulfate 0.125 Mg Tab.subl, 0.25 MG SL Q4H Prescribed by: RAPHAEL DUNCAN on 11/26/202106 Levetiracetam 500 Mg Tablet, 500 MG PO BID Prescribed by: OLIVE ISAAC on 11/21/20 1010 Metoprolol Succinate 100 Mg Tab.er.24h, 100 MG PO DAILY, (Reported) Nitrofurantoin Macrocrystal 100 Mg Capsule, 100 MG PO BID Prescribed by: ARGELIA CA on 02/06/21 1309 Ondansetron 4 Mg Tab.rapdis, 4 MG PO Q4H PRN for NAUSEA-1ST LINE Prescribed by: DASIA FRANKLIN on 11/25/20 1101 Ondansetron 8 Mg Tab.rapdis, 8 MG PO Q6H Prescribed by: RAPHAEL DUNCAN on 11/26/202106 Pantoprazole Sodium 40 Mg Tablet.dr, 40 MG PO DAILY, (Reported) Pantoprazole Sodium 40 Mg Tablet.dr, 40 MG PO DAILY Prescribed by: RAPHAEL DUNCAN on 11/26/202106 Prednisone 20 Mg Tab, 40 MG PO DAILY Prescribed by: JARED ODELL on 03/26/21 1523 Topiramate 50 Mg Tablet, 75 MG PO BID, (Reported) TAKE 1 & 1/2 OF 50MG TAB Patient Home Medication List Home Medication List Reviewed: Yes Review of Systems Review of Systems Constitutional: see HPI; No chills, No fever EENTM: No Symptoms Reported Respiratory: No Symptoms Reported Cardiovascular: No Symptoms Reported Gastrointestinal: See HPI, Abdominal Pain; Denies Constipated, Denies Diarrhea; Nausea Genitourinary: No Symptoms Reported Musculoskeletal: see HPI Skin: no symptoms reported Psychiatric/Neurological: No Symptoms Reported Endocrine: No Symptoms Reported Hematologic/Lymphatic: No Symptoms Reported Past Xgkxcxy-Ryatav-Vscpkm Hx Patient Social History Tobacco Use?: No Substance use?: No Pt feels they are or have been: No Immunizations Up To Date Tetanus Booster (TDap): Unknown Influenza Vaccine Up-to-Date: No; Not Current First/Initial COVID19 Vaccinat: 03/14 Seasonal Allergies Seasonal Allergies: No Past Medical History Surgeries: Yes (R CTR, espohageal ligation x2, Hernia, L RCR, L TKR, laparotomy, MRSA infec) Abdominal, Breast, Cardiac, Coronary Stent, Hysterectomy, Joint Replacement, Oophorectomy, Orthopedic, Thyroidectomy Respiratory: Yes (COVID-19 November 07, 2020-ADMITTED WITH PNEUMONIA) Pneumonia Currently Using CPAP: No Currently Using BIPAP: No Cardiac: Yes (HX HEART CATH-STENT;MILD BILAT CAROTID STENOSIS;DVT L ARM DUE TO PICC LINE) Coronary Artery Disease, Deep Vein Thrombosis, Heart Attack, High Cholesterol, Hypertension, Peripheral Vascular Neurological: Yes Headaches /Migraines, 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, 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 Sexually Transmitted Disease: No HIV/AIDS: No Genitourinary: Yes (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,STAGE 2-KIDNEY DISEA SE;DIABETIC NEPHROPA ) Bladder Infection, Renal Failure, Dialysis Gastrointestinal: Yes (HX GI BLEED, zenkers syndrome-chokes easily, hx hep A;LIVER INJURY/TRAUMA) Abdominal Hernia, Gastroesophageal Reflux, Gastrointestinal Bleed, Esophageal Varices, Hepatitis Musculoskeletal: Yes (OSTEOARTHRITIS, BULGING DISCS) Arthritis, Chronic Back Pain Endocrine: Yes (partial thyroidectomy) Diabetes, Insulin dep, Hypothyroidsim HEENT: Yes (GLASSES, UPPER DENTURES) Glaucoma Loss of Vision: Bilateral Cancer: Yes Breast Did You Recieve Any Treatments: Yes What Type of Treatment Did You: Radiation, Surgical Intervention Psychosocial: No Integumentary: No Blood Disorders: Yes (IRON DEFFICIENCY ANEMIA-GETS IRON INFUSIONS) Adverse Reaction/Blood Tranf: No (HAS HAD BLOOD WITH NO REACTION) Family Medical History Hypertension G8 BROTHER Not obtainable due to adoption 19 FATHER Heart Disease, Hypertension ADDITIONAL PAST SURGICAL HISTORY -ZENKER'S DIVERTICULUM SURGERY X 2 -ABDOMINAL HERNIA REPAIR WITH MESH -MESH REMOVAL AND LYSIS OF ADHESIONS -HYST/BSO -LOOP RECORDER -PORT LEFT CHEST -LEFT BREAST LUMPECTOMY -CARDIAC CATH WITH STENT X 1 TO RCA 2010 -PORT LEFT CHEST -RIGHT SHOULDER REPLACEMENT -RENAL ARTERY STENOSIS WITH STENT 2013 Physical Exam Vital Signs Vital Signs - First Documented 05/07/21 17:34 Temp 36.2 Pulse 87 Resp 18 B/P (MAP) 203/113 (143) Pulse Ox 98 O2 Delivery Room Air Capillary Refill : Less Than 3 Seconds Height/Weight/BMI Height: 5'4.00" Weight: 216lbs. 4.2oz. 98.090626be; 27.00 BMI Method:Stated General Appearance: WD/WN, no apparent distress HEENT: normal ENT inspection Neck: non-tender, full range of motion Respiratory: normal breath sounds, no respiratory distress, no accessory muscle use Gastrointestinal: normal bowel sounds, soft, tenderness Extremities: normal range of motion, non-tender, other (Hematoma left lateral lower leg with central eschar. No surrounding erythema.) Pelvic: normal external exam Neurologic/Psychiatric: alert, normal mood/affect, oriented x 3 Skin: normal color, warm/dry Progress/Results/Core Measures Results/Orders Lab Results Laboratory Tests Test 05/07/21 16:50 05/07/21 16:57 Range/Units Sodium Level 143 135-145 MMOL/L Potassium Level 3.7 3.6-5.0 MMOL/L Chloride Level 111 H 98-107 MMOL/L Carbon Dioxide Level 22 21-32 MMOL/L Anion Gap 10 5-14 MMOL/L Blood Urea Nitrogen 13 7-18 MG/DL Creatinine 1.05 0.60-1.30 MG/DL Estimat Glomerular Filtration Rate 52 BUN/Creatinine Ratio 12 Glucose Level 157 H 70-105 MG/DL Calcium Level 8.0 L 8.5-10.1 MG/DL Corrected Calcium 8.4 L 8.5-10.1 MG/DL Total Bilirubin 0.2 0.1-1.0 MG/DL Aspartate Amino Transf (AST/SGOT) 9 5-34 U/L Alanine Aminotransferase (ALT/SGPT) 8 0-55 U/L Alkaline Phosphatase 106 40-136 U/L Total Protein 6.3 L 6.4-8.2 GM/DL Albumin 3.5 3.2-4.5 GM/DL Lipase 37 8-78 U/L White Blood Count 6.8 4.3-11.0 10^3/uL Red Blood Count 4.26 3.80-5.11 10^6/uL Hemoglobin 12.1 11.5-16.0 g/dL Hematocrit 38 35-52 % Mean Corpuscular Volume 89 80-99 fL Mean Corpuscular Hemoglobin 28 25-34 pg Mean Corpuscular Hemoglobin Concent 32 32-36 g/dL Red Cell Distribution Width 14.3 10.0-14.5 % Platelet Count 221 130-400 10^3/uL Mean Platelet Volume 9.9 9.0-12.2 fL Immature Granulocyte % (Auto) 0 % Neutrophils (%) (Auto) 59 42-75 % Lymphocytes (%) (Auto) 27 12-44 % Monocytes (%) (Auto) 10 0-12 % Eosinophils (%) (Auto) 3 0-10 % Basophils (%) (Auto) 1 0-10 % Neutrophils # (Auto) 4.0 1.8-7.8 10^3/uL Lymphocytes # (Auto) 1.9 1.0-4.0 10^3/uL Monocytes # (Auto) 0.7 0.0-1.0 10^3/uL Eosinophils # (Auto) 0.2 0.0-0.3 10^3/uL Basophils # (Auto) 0.1 0.0-0.1 10^3/uL Immature Granulocyte # (Auto) 0.0 0.0-0.1 10^3/uL My Orders Orders - JARED ODELL APRN Cbc With Automated Diff (05/07/21 17:42) Comprehensive Metabolic Panel (05/07/21 17:42) Lipase (05/07/21 17:42) Ed Iv/Invasive Line Start (05/07/21 17:42) Ondansetron Injection (Zofran Injectio (05/07/21 18:15) Fentanyl Inj (Sublimaze Injection) (05/07/21 18:15) Rx-Hydrocodone/Apap 5-325 Mg (Rx-Vicodin (05/07/21 18:45) Rx-Ondansetron Po (Rx-Zofran Po) (05/07/21 18:41) Heparin (Central Iv Flush) (Heparin (Pearl (05/07/21 19:00) Heparin (Central Iv Flush) (Heparin (Pearl (05/07/21 18:50) Medications Given in ED Current Medications Medications Dose Ordered Sig/Ana María Route Start Time Stop Time Status Last Admin Dose Admin Fentanyl Citrate 50 mcg ONCE ONCE IVP 05/07/21 18:15 05/07/21 18:16 DC 05/07/21 18:24 50 MCG Ondansetron HCl 4 mg ONCE ONCE IVP 05/07/21 18:15 05/07/21 18:16 DC 05/07/21 18:22 4 MG Vital Signs/I&O 05/07/21 17:34 Temp 36.2 Pulse 87 Resp 18 B/P (MAP) 203/113 (143) Pulse Ox 98 O2 Delivery Room Air 2 Blood Pressure Mean: 143 Departure Impression Primary Impression: Upper abdominal pain Additional Impression: Hematoma Disposition: HOME, SELF-CARE Condition: Improved Departure-Patient Inst. Decision time for Depature: 18:39 Referrals: [facility] (PCP) Primary Care Physician JAVIER MOSS (Family) Primary Care Physician Patient Instructions: No Instuctions Given Add. Discharge Instructions: All discharge instructions reviewed with patient and/or family. Voiced understanding. JAERD ODELL SILK SCREEN FRAME ASSEMBLER May 07, 2021 18:14
[2021-05-07] MEDS ORDERED: ONDANSETRON 4 MG/2 ML (SDV) Z0FRAN IVP ONE (18:15)
[2021-05-07] MEDS ORDERED: fentaNYL INJ 100 MCG/2 ML AMP IVP ONE (18:15)
[2021-05-07 18:24] LABS: ALBUMIN 3.5 GM/DL (3.2-4.5); POTASSIUM 3.7 MMOL/L (3.6-5.0)
[2021-05-07 18:26] LABS: TOTAL PROTEIN 6.3 GM/DL (6.4-8.2)
[2021-05-07 18:28] LABS: BILIRUBIN,TOTAL 0.2 MG/DL (0.1-1.0)
[2021-05-07 18:30] LABS: CREATININE SERUM 1.05 MG/DL (0.60-1.30)
[2021-05-07] MEDS ORDERED: RX-ONDANSETRON 4 MG ODT (ZOFRAN) PPK #4 PO STA (18:41)
[2021-05-07] MEDS ORDERED: HEParin (CENTRAL IV FLUSH) 500 UNIT/5 ML SYR ONE (18:50)
[2021-05-07 18:54] VITALS: BP 147/97
[2021-05-07] MEDS ORDERED: HEParin (CENTRAL IV FLUSH) 500 UNIT/5 ML SYR IV ONE (19:00)
== END 2021-05-07 18:54 | disposition home or self-care (01) ==
LOC: EDUNIT# 17:27 → ER 17:32
DX: S80.12XA Contusion of left lower leg, initial encounter (principal); R10.10 Upper abdominal pain, unspecified; I25.2 Old myocardial infarction; I10 Essential (primary) hypertension; I25.10 Atherosclerotic heart disease of native coronary artery without angina pectoris; E78.00 Pure hypercholesterolemia, unspecified; K21.9 Gastro-esophageal reflux disease without esophagitis; G89.29 Other chronic pain; M54.9 Dorsalgia, unspecified; E11.9 Type 2 diabetes mellitus without complications; Z79.82 Long term (current) use of aspirin; Z79.52 Long term (current) use of systemic steroids; Z79.899 Other long term (current) drug therapy; Z79.891 Long term (current) use of opiate analgesic; W10.8XXA Fall (on) (from) other stairs and steps, initial encounter
CPT/HCPCS: 36415; 80053; 83690; 85025

== ENCOUNTER 2021-05-10 06:00 | Emergency (ER) | payer MEDICARE ==
[~2021-05-10] VITALS: Ht 162.5 cm; Wt 72.0 kg
[2021-05-10 06:00] VITALS: BP 175/87
[2021-05-10] MEDS ORDERED: TETANUS,DIPTH,PERTUSS P/F (BOOSTRIX) 0.5 ML VIAL IM ONE (06:30)
[2021-05-10] MEDS ORDERED: HYDROcodone/APAP 5 MG/325 MG (LORTAB) TAB PO ONE (06:30)
[2021-05-10] MEDS ORDERED: TRIM/SULFAMETH 160/800 (SEPTRA DS) TAB PO ONE (06:30)
--- NOTE | 2021-05-10 06:30 | ED Lower Extremity ---
General Stated Complaint: LEFT MCINTOSH HEMATOMA RUPTURED Source: patient Exam Limitations: no limitations History of Present Illness Date Seen by Provider: May 10, 2021 Time Seen by Provider: 06:03 Initial Comments Patient to the ER by EMS from home with chief complaint that she had a fall on 23 April on some stairs causing a hematoma on bilateral lower extremities. The one on her left lower extremity was causing some pain and finally broke open so she sat in the shower and let water run over it to wash some of the blood clot out. She has not had a tetanus vaccine in the last 5 years. She is not on antibiotic s. She is not having any fevers chills nausea vomiting. She says the pain is severe. She has full sensation in her left lower extremity. Allergies and Home Medications Allergies Coded Allergies: clopidogrel (Verified Allergy, Severe, BLOOD CLOTS, 11/27/18) Penicillins (Verified Allergy, Mild, RASH, 11/27/18) carisoprodol (Verified Allergy, Mild, RASH, 11/27/18) cephalexin (Verified Allergy, Mild, RASH, 11/27/18) ketorolac (Verified Allergy, Mild, RASH, 11/27/18) prochlorperazine (Verified Allergy, Mild, RASH, 11/27/18) Carbamates (Verified Allergy, Unknown, Rash, 05/28/19) Home Medications Albuterol Sulfate 2.5 Mg/3 Ml Vial.neb, 2 PUFF INH Q4H PRN for SHORTNESS OF BREATH Prescribed by: DASIA FRANKLIN on 11/25/20 1101 Amlodipine Besylate 10 Mg Tablet, 10 MG PO DAILY, (Reported) Aspirin 81 Mg Tablet.dr, 81 MG PO DAILY Prescribed by: OLIVE ISAAC on 11/21/20 1010 Atorvastatin Calcium 40 Mg Tablet, 40 MG PO HS, (Reported) Cholecalciferol (Vitamin D3) 50 Mcg Tablet, 50 MCG PO DAILY, (Reported) Codeine/Butalbital/ASA/Caffein 1 Each Capsule, 1 EACH PO DAILY PRN for MIGRAINE, (Reported) Duloxetine HCl 30 Mg Capsule.dr, 30 MG PO DAILY, (Reported) TAKE ALONG WITH 60MG CAP FOR A TOTAL DAILY DOSE OF 90MG Folic Acid 1 Mg Tablet, 1 MG PO DAILY, (Reported) Furosemide 40 Mg Tablet, 40 MG PO DAILY PRN for EDEMA Prescribed by: OLIVE ISAAC on 11/21/20 1010 Hydrocodone/Acetaminophen 1 Each Tablet, 1-2 EACH PO Q4-6 HOURS PRN for PAIN Prescribed by: RAPHAEL DUNCAN on 11/26/202106 Hydroxychloroquine Sulfate 200 Mg Tablet, 200 MG PO BID, (Reported) Hyoscyamine Sulfate 0.125 Mg Tab.subl, 0.25 MG SL Q4H Prescribed by: RAPHAEL DUNCAN on 11/26/202106 Levetiracetam 500 Mg Tablet, 500 MG PO BID Prescribed by: OLIVE ISAAC on 11/21/20 1010 Metoprolol Succinate 100 Mg Tab.er.24h, 100 MG PO DAILY, (Reported) Nitrofurantoin Macrocrystal 100 Mg Capsule, 100 MG PO BID Prescribed by: ARGELIA CA on 02/06/21 1309 Ondansetron 4 Mg Tab.rapdis, 4 MG PO Q4H PRN for NAUSEA-1ST LINE Prescribed by: DASIA FRANKLIN on 11/25/20 1101 Ondansetron 8 Mg Tab.rapdis, 8 MG PO Q6H Prescribed by: RAPHAEL DUNCAN on 11/26/202106 Pantoprazole Sodium 40 Mg Tablet.dr, 40 MG PO DAILY, (Reported) Pantoprazole Sodium 40 Mg Tablet.dr, 40 MG PO DAILY Prescribed by: RAPHAEL DUNCAN on 11/26/202106 Prednisone 20 Mg Tab, 40 MG PO DAILY Prescribed by: JARED ODELL on 03/26/21 1523 Sulfamethoxazole/Trimethoprim 1 Each Tablet, 7 EACH PO BID Prescribed by: GUSTABO CARRINGTON on 05/10/21 0652 Topiramate 50 Mg Tablet, 75 MG PO BID, (Reported) TAKE 1 & 1/2 OF 50MG TAB Patient Home Medication List Home Medication List Reviewed: Yes Review of Systems Constitutional: No chills, No diaphoresis EENTM: No ear discharge, No ear pain Respiratory: No cough, No short of breath Cardiovascular: No chest pain, No edema Gastrointestinal: No abdominal pain, No constipation, No diarrhea Genitourinary: No dysuria, No frequency Control/STD Prophylaxis: None Musculoskeletal: No back pain, No joint swelling All Other Systems Reviewed Negative Unless Noted: Yes Past Gpdtnqt-Pozwny-Pqdial Hx Patient Social History Tobacco Use?: No Use of E-Cig and/or Vaping dev: No Substance use?: No Immunizations Up To Date Tetanus Booster (TDap): Unknown Seasonal Allergies Seasonal Allergies: No Past Medical History Surgeries: Yes (R CTR, espohageal ligation x2, Hernia, L RCR, L TKR, laparo brittani, MRSA infec) Abdominal, Breast, Cardiac, Coronary Stent, Hysterectomy, Joint Replacement, Oophorectomy, Orthopedic, Thyroidectomy Respiratory: Yes (COVID-19 November 07, 2020-ADMITTED WITH PNEUMONIA) Pneumonia Currently Using CPAP: No Currently Using BIPAP: No Cardiac: Yes (HX HEART CATH-STENT;MILD BILAT CAROTID STENOSIS;DVT L ARM DUE TO PICC LINE) Coronary Artery Disease, Deep Vein Thrombosis, Heart Attack, High Cholesterol, Hypertension, Peripheral Vascular Neurological: Yes Headaches /Migraines, Neuropathy 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, 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 Sexually Transmitted Disease: No HIV/AIDS: No Genitourinary: Yes (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,STAGE 2-KIDNEY DISEASE;DIABETIC NEPHROPA ) Bladder Infection, Renal Failure, Dialysis Gastrointestinal: Yes (HX GI BLEED, zenkers syndrome-chokes easily, hx hep A;LIVER INJURY/TRAUMA) Abdominal Hernia, Gastroesophageal Reflux, Gastrointestinal Bleed, Esophageal Varices, Hepatitis Musculoskeletal: Yes (OSTEOARTHRITIS, BULGING DISCS) Arthritis, Chronic Back Pain Endocrine: Yes (partial thyroidectomy) Diabetes, Insulin dep, Hypothyroidsim HEENT: Yes (GLASSES, UPPER DENTURES) Glaucoma Loss of Vision: Bilateral Cancer: Yes Breast Did You Recieve Any Treatments: Yes What Type of Treatment Did You: Radiation, Surgical Intervention Psychosocial: No Integumentary: No Blood Disorders: Yes (IRON DEFFICIENCY ANEMIA-GETS IRON INFUSIONS) Adverse Reaction/Blood Tranf: No (HAS HAD BLOOD WITH NO REACTION) Family Medical History Hypertension G8 BROTHER Not obtainable due to adoption 19 FATHER Heart Disease, Hypertension ADDITIONAL PAST SURGICAL HISTORY -ZENKER'S DIVERTICULUM SURGERY X 2 -ABDOMINAL HERNIA REPAIR WITH MESH -MESH REMOVAL AND LYSIS OF ADHESIONS -HYST/BSO -LOOP RECORDER -PORT LEFT CHEST -LEFT BREAST LUMPECTOMY -CARDIAC CATH WITH STENT X 1 TO RCA 2010 -PORT LEFT CHEST -RIGHT SHOULDER REPLACEMENT -RENAL ARTERY STENOSIS WITH STENT 2013 Physical Exam Vital Signs Capillary Refill : Height, Weight, BMI Height: 5'4.00" Weight: 216lbs. 4.2oz. 98.454206yy; 27.00 BMI Method:Stated General Appearance: WD/WN, mild distress HEENT: PERRL/EOMI, pharynx normal Neck: full range of motion, normal inspection Cardiovascular: normal peripheral pulses, regular rate, rhythm Respiratory: lungs clear, normal breath sounds, no respiratory distress, no accessory muscle use Gastrointestinal: normal bowel sounds, non tender, no organomegaly Legs: bilateral leg non-tender, bilateral leg normal inspection, bilateral leg normal range of motion Knees: bilateral knee non-tender, bilateral knee normal inspection, bilateral knee normal range of motion Neurologic/Psychiatric: alert, normal mood/affect, oriented x 3 Skin: other (Patient has a 5 cm diameter open hematoma on the left anterior mcintosh which is tender to palpation but without erythema, induration or exudates.) Progress/Results/Core Measures Results/Orders My Orders Orders - GUSTABO CARRINGTON DiphtPertshanika(Acell),Tet Adult (Boostrix (05/10/21 06:30) Hydrocodone/Apap 5/325 Tablet (Lortab 5 (05/10/21 06:30) Sulfamethoxazole/Trimet Ds Tab (Bactrim (05/10/21 06:30) Fentanyl Inj (Sublimaze Injection) (05/10/21 06:45) Medications Given in ED Current Medications Medications Dose Ordered Sig/Ana María Route Start Time Stop Time Status Last Admin Dose Admin Acetaminophen/ Hydrocodone Bitart 1 ea ONCE ONCE PO 05/10/21 06:30 05/10/21 06:31 DC 05/10/21 06:32 1 EA Diphtheria/ Tetanus/Acell Pertussis 0.5 ml ONCE ONCE IM 05/10/21 06:30 05/10/21 06:31 DC 05/10/21 06:34 0.5 ML Fentanyl Citrate 75 mcg ONCE ONCE IM 05/10/21 06:45 05/10/21 06:46 DC 05/10/21 06:44 75 MCG Trimethoprim/ Sulfamethoxazole 1 ea ONCE ONCE PO 05/10/21 06:30 05/10/21 06:31 DC 05/10/21 06:32 1 EA Progress Progress Note #1: Time: 06:29 Progress Note The patient has some remaining blood clot the need to flushed out of the wound base. Rest the wound looks good from the surface level. Plan to put her on some Bactrim through event infection and and after cleaning the wound out we will provide her with some pain medicine. Hydrocodone 5 x 325 for now. Previous x-rays were reviewed. Her labs from the and were reviewed. She is not on blood thinners just aspirin. Progress Note #2: Time: 06:42 Progress Note After flushing the wound up there is still some remaining adhered clot. Patient was given 75 mcg of fentanyl to tolerate the pain. We applied a wet-to-dry bandage did some teaching and we will set her up with wound care, Dr. Ortiz. Departure Impression Primary Impression: Hematoma Additional Impression: Open wound of leg without complication Qualified Codes: S81.802A - Unspecified open wound, left lower leg, initial encounter Disposition: HOME, SELF-CARE Condition: Stable Departure-Patient Inst. Decision time for Depature: 06:46 Referrals: [facility] [place] (PCP) Primary Care Physician JAVIER MOSS (Family) Primary Care Physician CARISSA ORTIZ MD Patient Instructions: Wound Care (DC) Add. Discharge Instructions: Keep the wound clean with regular soap and water when you shower. Do not put hydrogen peroxide alcohol iodine or chlorhexidine in the wound. Change the dressing daily or more frequently if it becomes soiled. Ball up some wet gauze directly over the wound followed by dry gauze or an ABD pad and compress it with an Martin wrap or Coban. After 8 AM you can call Dr. Ortiz at the wound care and request follow-up appointments this week to help manage your wound and dressings. Bactrim 1 tablet twice a day to prevent wound infection. Probiotics 1 capsule twice a day to prevent diarrhea associated with antibiotics. Scripts Oxycodone HCl/Acetaminophen (Percocet 7.5-325 mg Tablet) 1 Each Tablet 1 TAB PO Q4H PRN for PAIN-MODERATE MDD 4 TABS for 7 Days, #20 TAB 0 Refills Prov: GUSTABO CARRINGTON 05/10/21 Sulfamethoxazole/Trimethoprim (Bactrim Ds Tablet) 1 Each Tablet 7 EACH PO BID for 7 Days, #14 TAB 0 Refills Prov: GUSTABO CARRINGTON 05/10/21 Copy Copies To 1: CARISSA ORTIZ MD, TITUS J May 10, 2021 06:30
[2021-05-10] MEDS ORDERED: fentaNYL INJ 100 MCG/2 ML AMP IM ONE (06:45)
[2021-05-10] MEDS ORDERED: SULF1TAB38 PO (06:52)
[2021-05-10] MEDS ORDERED: OXYC1TAB16 PO ×2 (06:57→17:04)
== END 2021-05-10 07:07 | disposition home or self-care (01) ==
LOC: EDUNIT# 06:13 → ER 06:15
DX: S81.802A Unspecified open wound, left lower leg, initial encounter (principal); S80.12XA Contusion of left lower leg, initial encounter; I10 Essential (primary) hypertension; I25.2 Old myocardial infarction; E78.00 Pure hypercholesterolemia, unspecified; I25.10 Atherosclerotic heart disease of native coronary artery without angina pectoris; K21.9 Gastro-esophageal reflux disease without esophagitis; G89.29 Other chronic pain; M54.9 Dorsalgia, unspecified; Z23 Encounter for immunization; Z79.82 Long term (current) use of aspirin; Z79.52 Long term (current) use of systemic steroids; Z79.899 Other long term (current) drug therapy; Z79.891 Long term (current) use of opiate analgesic; W10.8XXA Fall (on) (from) other stairs and steps, initial encounter
CPT/HCPCS: 11740; 90471; 90715; 96372

== ENCOUNTER → 2021-05-12 | Outpatient (CLI) | payer MEDICARE ==
[~2021-05-12] MED LIST changes: +OXYC1TAB16 PO; +SULF1TAB38 PO
== END ==
LOC: WOUNDCARE 13:11
PROVIDERS: ATTEND Surgery
DX: I87.332 Chronic venous hypertension (idiopathic) with ulcer and inflammation of left lower extremity (principal); S81.802A Unspecified open wound, left lower leg, initial encounter; L97.222 Non-pressure chronic ulcer of left calf with fat layer exposed; I70.242 Atherosclerosis of native arteries of left leg with ulceration of calf
CPT/HCPCS: 11042; 11045

== ENCOUNTER 2021-05-25 03:30 | Emergency (ER) | payer MEDICARE ==
[~2021-05-25] VITALS: Ht 162 cm; Wt 72.0 kg
[2021-05-25] MEDS ORDERED: ONDANSETRON 4 MG/2 ML (SDV) Z0FRAN IVP ONE (04:15)
[2021-05-25] MEDS ORDERED: LACTATED RINGERS 1,000 ML IV ONE (04:15)
[2021-05-25] MEDS ORDERED: FAMOTIDINE 20MG/2ML IV (PEPCID) IVP ONE (04:15)
[2021-05-25 04:22] LABS: BASOPHILS # (AUTO) 0.1 10^3/uL (0.0-0.1); BASOPHILS % (AUTO) 1 % (0-10); EOSINOPHILS # (AUTO) 0.2 10^3/uL (0.0-0.3); EOSINOPHILS % (AUTO) 3 % (0-10); HEMATOCRIT 38 % (35-52); HEMOGLOBIN 12.1 g/dL (11.5-16.0); LYMPHOCYTES # (AUTO) 1.9 10^3/uL (1.0-4.0); LYMPHOCYTES % (AUTO) 30 % (12-44); MEAN CORPUSCULAR HEMOGLOBIN 28 pg (25-34); MEAN CORPUSCULAR HGB CONC 32 g/dL (32-36); MEAN CORPUSCULAR VOLUME 88 fL (80-99); MEAN PLATELET VOLUME 9.5 fL (9.0-12.2); MONOCYTES # (AUTO) 0.7 10^3/uL (0.0-1.0); MONOCYTES % (AUTO) 11 % (0-12); NEUTROPHILS # (AUTO) 3.4 10^3/uL (1.8-7.8); NEUTROPHILS % (AUTO) 55 % (42-75); PLATELET COUNT 256 10^3/uL (130-400); WHITE BLOOD COUNT 6.3 10^3/uL (4.3-11.0)
[2021-05-25] MEDS ORDERED: amLODIPine 10 MG (NORVASC) TAB PO STA (04:24)
[2021-05-25 04:32] LABS: ALBUMIN 3.6 GM/DL (3.2-4.5); POTASSIUM 3.5 MMOL/L (3.6-5.0)
[2021-05-25 04:33] LABS: CALCIUM 8.5 MG/DL (8.5-10.1)
[2021-05-25 04:35] LABS: TOTAL PROTEIN 6.6 GM/DL (6.4-8.2)
[2021-05-25 04:36] LABS: BILIRUBIN,TOTAL 0.2 MG/DL (0.1-1.0)
[2021-05-25 04:38] LABS: CREATININE SERUM 1.01 MG/DL (0.60-1.30)
[2021-05-25 04:41] LABS: MAGNESIUM 1.8 MG/DL (1.6-2.4)
[2021-05-25 04:42] LABS: BILIRUBIN,URINE NEGATIVE (NEGATIVE); CLARITY,URINE CLEAR; COLOR,URINE YELLOW; GLUCOSE, URINE (UA) NEGATIVE (NEGATIVE); KETONES,URINE NEGATIVE (NEGATIVE); LEUKOCYTE ESTERASE ,URINE NEGATIVE (NEGATIVE); NITRITE,URINE NEGATIVE (NEGATIVE); PROTEIN,URINE NEGATIVE (NEGATIVE)
[2021-05-25 04:54] LABS: BACTERIA,URINE NEGATIVE /HPF; RBC,URINE 0-2 /HPF; SQUAMOUS EPITHELIAL CELL,UR 0-2 /HPF
[2021-05-25] MEDS ORDERED: meTOproloL SUCCINATE 50 MG (TOPROL XL) TAB PO STA (05:04)
[2021-05-25] MEDS ORDERED: cloNIDine 0.2 MG (CATAPRES) TAB PO STA (05:04)
--- NOTE | 2021-05-25 06:48 | ED General ---
General Chief Complaint: Cough/Cold/Flu Symptoms Stated Complaint: N/V/D/LARSON Nursing Triage Note: PT ARRIVES VIA EMS TO ROOM 10 C/O NVD, LARSON, FEVER AND CHILLS FOR THE LAST TEN DAYS. PT REPORTS FIVE LOOSE STOOLS DAILY, VOMITED X3 OVER THE LAST 24HRS. PT IS ALSO CONCERNED ABOUT A WOUND ON HER LEFT LEG THAT SHE HAS BEEN RECIEVING TX FROM DR. ARCEO, RECENTLY COMPLETED A COURSE OF PO BACTRIUM Source of Information: Patient, EMS Exam Limitations: No Limitations History of Present Illness Date Seen by Provider: May 25, 2021 Time Seen by Provider: 03:32 Initial Comments This is 70-year-old woman presents to the emergency room with acute illness including diarrhea for 10 days, nausea and vomiting over the past 24 hours, headache, chills, weakness, and uncontrolled hypertension. She was not able to take her blood pressure medications today due to nausea and vomiting. She had COVID-19 earlier in the year and has also received 1 out of the 2 vaccine doses. She is afebrile at present. Allergies and Home Medications Allergies Coded Allergies: clopidogrel (Verified Allergy, Severe, BLOOD CLOTS, 11/27/18) Penicillins (Verified Allergy, Mild, RASH, 11/27/18) carisoprodol (Verified Allergy, Mild, RASH, 11/27/18) cephalexin (Verified Allergy, Mild, RASH, 11/27/18) ketorolac (Verified Allergy, Mild, RASH, 11/27/18) prochlorperazine (Verified Allergy, Mild, RASH, 11/27/18) Carbamates (Verified Allergy, Unknown, Rash, 05/28/19) Home Medications Albuterol Sulfate 2.5 Mg/3 Ml Vial.neb, 2 PUFF INH Q4H PRN for SHORTNESS OF BREATH Prescribed by: DASIA FRANKLIN on 11/25/20 1101 Amlodipine Besylate 10 Mg Tablet, 10 MG PO DAILY, (Reported) Aspirin 81 Mg Tablet.dr, 81 MG PO DAILY Prescribed by: OLIVE ISAAC on 11/21/20 1010 Atorvastatin Calcium 40 Mg Tablet, 40 MG PO HS, (Reported) Cholecalciferol (Vitamin D3) 50 Mcg Tablet, 50 MCG PO DAILY, (Reported) Codeine/Butalbital/ASA/Caffein 1 Each Capsule, 1 EACH PO DAILY PRN for MIGRAINE, (Reported) Duloxetine HCl 30 Mg Capsule.dr, 30 MG PO DAILY, (Reported) TAKE ALONG WITH 60MG CAP FOR A TOTAL DAILY DOSE OF 90MG Folic Acid 1 Mg Tablet, 1 MG PO DAILY, (Reported) Furosemide 40 Mg Tablet, 40 MG PO DAILY PRN for EDEMA Prescribed by: OLIVE ISAAC on 11/21/20 1010 Hydrocodone/Acetaminophen 1 Each Tablet, 1-2 EACH PO Q4-6 HOURS PRN for PAIN Prescribed by: RAPHAEL DUNCNA on 11/26/202106 Hydroxychloroquine Sulfate 200 Mg Tablet, 200 MG PO BID, (Reported) Hyoscyamine Sulfate 0.125 Mg Tab.subl, 0.25 MG SL Q4H Prescribed by: RAPHAEL DUNCAN on 11/26/202106 Levetiracetam 500 Mg Tablet, 500 MG PO BID Prescribed by: OLIVE ISAAC on 11/21/20 1010 Metoprolol Succinate 100 Mg Tab.er.24h, 100 MG PO DAILY, (Reported) Nitrofurantoin Macrocrystal 100 Mg Capsule, 100 MG PO BID Prescribed by: ARGELIA CA on 02/06/21 1309 Ondansetron 4 Mg Tab.rapdis, 4 MG PO Q4H PRN for NAUSEA-1ST LINE Prescribed by: DASIA FRANKLIN on 11/25/20 1101 Ondansetron 8 Mg Tab.rapdis, 8 MG PO Q6H Prescribed by: RAPHAEL DUNCAN on 11/26/202106 Oxycodone HCl/Acetaminophen 1 Each Tablet, 1 TAB PO Q4H PRN for PAIN-MODERATE Prescribed by: GUSTABO CARRINGTON on 05/10/21 1705 Pantoprazole Sodium 40 Mg Tablet.dr, 40 MG PO DAILY, (Reported) Pantoprazole Sodium 40 Mg Tablet.dr, 40 MG PO DAILY Prescribed by: RAPHAEL DUNCAN on 11/26/202106 Prednisone 20 Mg Tab, 40 MG PO DAILY Prescribed by: JARED ODELL on 03/26/21 1523 Sulfamethoxazole/Trimethoprim 1 Each Tablet, 7 EACH PO BID Prescribed by: GUSTABO CARRINGTON on 05/10/21 0652 Topiramate 50 Mg Tablet, 75 MG PO BID, (Reported) TAKE 1 & 1/2 OF 50MG TAB Patient Home Medication List Home Medication List Reviewed: Yes Review of Systems Review of Systems Constitutional: see HPI EENTM: no symptoms reported Respiratory: no symptoms reported Cardiovascular: see HPI Gastrointestinal: see HPI Genitourinary: no symptoms reported Musculoskeletal: no symptoms reported Skin: no symptoms reported Psychiatric/Neurological: See HPI Hematologic/Lymphatic: No Symptoms Reported Past Qzwfcfh-Zjzwyk-Uhavtp Hx Patient Social History Tobacco Use?: No Substance use?: No Alcohol Use?: No Immunizations Up To Date Tetanus Booster (TDap): Unknown Influenza Vaccine Up-to-Date: Yes; Up-to-Date Seasonal Allergies Seasonal Allergies: No Past Medical History Surgery/Hospitalization HX: [place] HX, STROKE HX, PANCREATITIS, PNEUMONIA HX, COVID HX Surgeries: Yes (R CTR, espohageal ligation x2, Hernia, L RCR, L TKR, laparotomy, MRSA infec) Abdominal, Breast, Cardiac, Coronary Stent, Hysterectomy, Joint Replacement, Oophorectomy, Orthopedic, Thyroidectomy Respiratory: Yes (COVID-19 November 07, 2020-ADMITTED WITH PNEUMONIA) Pneumonia Currently Using CPAP: No Currently Using BIPAP: No Cardiac: Yes (HX HEART CATH-STENT;MILD BILAT CAROTID STENOSIS;DVT L ARM DUE TO PICC LINE) Coronary Artery Disease, Deep Vein Thrombosis, Heart Attack, High Cholesterol, Hypertension, Peripheral Vascular Neurological: Yes Headaches /Migraines, Neuropathy 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, 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 Sexually Transmitted Disease: No HIV/AIDS: No Genitourinary: Yes (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,STAGE 2-KIDNEY DISEASE;DIABETIC NEPHROPA ) Bladder Infection, Renal Failure, Dialysis Gastrointestinal: Yes (HX GI BLEED, zenkers syndrome-chokes easily, hx hep A;LIVER INJURY/TRAUMA) Abdominal Hernia, Gastroesophageal Reflux, Gastrointestinal Bleed, Esophageal Varices, Hepatitis Musculoskeletal: Yes (OSTEOARTHRITIS, BULGING DISCS) Arthritis, Chronic Back Pain Endocrine: Yes (partial thyroidectomy) Diabetes, Insulin dep, Hypothyroidsim HEENT: Yes (GLASSES, UPPER DENTURES) Glaucoma Loss of Vision: Bilateral Cancer: Yes Breast Did You Recieve Any Treatments: Yes What Type of Treatment Did You: Radiation, Surgical Intervention Psychosocial: No Integumentary: No Blood Disorders: Yes (IRON DEFFICIENCY ANEMIA-GETS IRON INFUSIONS) Adverse Reaction/Blood Tranf: No (HAS HAD BLOOD WITH NO REACTION) Family Medical History Hypertension G8 BROTHER Not obtainable due to adoption 19 FATHER Heart Disease, Hypertension ADDITIONAL PAST SURGICAL HISTORY -ZENKER'S DIVERTICULUM SURGERY X 2 -ABDOMINAL HERNIA REPAIR WITH MESH -MESH REMOVAL AND LYSIS OF ADHESIONS -HYST/BSO -LOOP RECORDER -PORT LEFT CHEST -LEFT BREAST LUMPECTOMY -CARDIAC CATH WITH STENT X 1 TO RCA 2010 -PORT LEFT CHEST -RIGHT SHOULDER REPLACEMENT -RENAL ARTERY STENOSIS WITH STENT 2013 Physical Exam Vital Signs Vital Signs - First Documented 05/25/21 03:39 Temp 36.7 Pulse 94 Resp 18 B/P (MAP) 180/86 (117) Pulse Ox 98 O2 Delivery Room Air Capillary Refill : Less Than 3 Seconds Height, Weight, BMI Height: 5'4.00" Weight: 216lbs. 4.2oz. 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 Norm as Tested Skin: Normal Color, Warm/Dry Progress/Results/Core Measures Suspected Sepsis SIRS Temperature: Pulse: 94 Respiratory Rate: 18 Laboratory Tests 05/25/21 04:15: White Blood Count 6.3 Blood Pressure 180 /86 Mean: 117 Laboratory Tests 05/25/21 04:15: Creatinine 1.01, Platelet Count 256, Total Bilirubin 0.2 Results/Orders Lab Results Laboratory Tests Test 05/25/21 03:42 05/25/21 03:49 05/25/21 04:15 Range/Units Urine Color YELLOW Urine Clarity CLEAR Urine pH 5.0 5-9 Urine Specific Dennis 1.015 L 1.016-1.022 Urine Protein NEGATIVE NEGATIVE Urine Glucose (UA) NEGATIVE NEGATIVE Urine Ketones NEGATIVE NEGATIVE Urine Nitrite NEGATIVE NEGATIVE Urine Bilirubin NEGATIVE NEGATIVE Urine Urobilinogen 0.2 < = 1.0 MG/DL Urine Leukocyte Esterase NEGATIVE NEGATIVE Urine RBC (Auto) TRACE-I NEGATIVE Urine RBC 0-2 /HPF Urine WBC NONE /HPF Urine Squamous Epithelial Cells 0-2 /HPF Urine Crystals NONE /LPF Urine Bacteria NEGATIVE /HPF Urine Casts NONE /LPF Urine Mucus NEGATIVE /LPF Urine Culture Indicated NO SARS-CoV-2 RNA (RT-PCR) Negative Not Detecte White Blood Count 6.3 4.3-11.0 10^3/uL Red Blood Count 4.31 3.80-5.11 10^6/uL Hemoglobin 12.1 11.5-16.0 g/dL Hematocrit 38 35-52 % Mean Corpuscular Volume 88 80-99 fL Mean Corpuscular Hemoglobin 28 25-34 pg Mean Corpuscular Hemoglobin Concent 32 32-36 g/dL Red Cell Distribution Width 14.0 10.0-14.5 % Platelet Count 256 130-400 10^3/uL Mean Platelet Volume 9.5 9.0-12.2 fL Immature Granulocyte % (Auto) 0 % Neutrophils (%) (Auto) 55 42-75 % Lymphocytes (%) (Auto) 30 12-44 % Monocytes (%) (Auto) 11 0-12 % Eosinophils (%) (Auto) 3 0-10 % Basophils (%) (Auto) 1 0-10 % Neutrophils # (Auto) 3.4 1.8-7.8 10^3/uL Lymphocytes # (Auto) 1.9 1.0-4.0 10^3/uL Monocytes # (Auto) 0.7 0.0-1.0 10^3/uL Eosinophils # (Auto) 0.2 0.0-0.3 10^3/uL Basophils # (Auto) 0.1 0.0-0.1 10^3/uL Immature Granulocyte # (Auto) 0.0 0.0-0.1 10^3/uL Sodium Level 145 135-145 MMOL/L Potassium Level 3.5 L 3.6-5.0 MMOL/L Chloride Level 113 H 98-107 MMOL/L Carbon Dioxide Level 20 L 21-32 MMOL/L Anion Gap 12 5-14 MMOL/L Blood Urea Nitrogen 15 7-18 MG/DL Creatinine 1.01 0.60-1.30 MG/DL Estimat Glomerular Filtration Rate 54 BUN/Creatinine Ratio 15 Glucose Level 154 H 70-105 MG/DL Calcium Level 8.5 8.5-10.1 MG/DL Corrected Calcium 8.8 8.5-10.1 MG/DL Magnesium Level 1.8 1.6-2.4 MG/DL Total Bilirubin 0.2 0.1-1.0 MG/DL Aspartate Amino Transf (AST/SGOT) 10 5-34 U/L Alanine Aminotransferase (ALT/SGPT) 8 0-55 U/L Alkaline Phosphatase 121 40-136 U/L C-Reactive Protein High Sensitivity 0.59 H 0.00-0.50 MG/DL Total Protein 6.6 6.4-8.2 GM/DL Albumin 3.6 3.2-4.5 GM/DL Lipase 62 8-78 U/L My Orders Orders - ELODIA SILVERMAN MD Cbc With Automated Diff (05/25/21 04:07) Comprehensive Metabolic Panel (05/25/21 04:07) Hs C Reactive Protein (05/25/21 04:07) Lipase (05/25/21 04:07) Magnesium (05/25/21 04:07) Ua Culture If Indicated (05/25/21 04:07) Ed Iv/Invasive Line Start (05/25/21 04:07) Lactated Ringers (Lr 1000 Ml Iv Solution (05/25/21 04:15) Ondansetron Injection (Zofran Injectio (05/25/21 04:15) Famotidine Injection (Pepcid Injection) (05/25/21 04:15) Stool Culture (05/25/21 04:20) Fecal Wbc (05/25/21 04:20) C Difficile Ag + Toxin A/B. (05/25/21 04:20) Covid 19 Inhouse Test (05/25/21 04:20) Amlodipine Tablet (Norvasc Tablet) (05/25/21 04:24) Metoprolol Succinate (Xl) Tab (Toprol Xl (05/25/21 05:04) Clonidine Tablet (Catapres Tablet) (05/25/21 05:04) Medications Given in ED Current Medications Medications Dose Ordered Sig/Ana María Route Start Time Stop Time Status Last Admin Dose Admin Famotidine 20 mg ONCE ONCE IVP 05/25/21 04:15 05/25/21 04:17 DC 05/25/21 04:28 20 MG Lactated Ringer's 1,000 ml @ 0 mls/hr Q0M ONCE IV 05/25/21 04:15 05/25/21 04:17 DC 05/25/21 04:28 1,000 MLS/HR Ondansetron HCl 4 mg ONCE ONCE IVP 05/25/21 04:15 05/25/21 04:17 DC 05/25/21 04:28 4 MG Vital Signs/I&O 05/25/21 05/25/21 05/25/21 03:39 03:40 06:56 Temp 36.7 36.7 Pulse 94 98 Resp 18 18 B/P (MAP) 180/86 (117) 141/82 (117) Pulse Ox 98 98 O2 Delivery Room Air Room Air Room Air Capillary Refill : Less Than 3 Seconds Blood Pressure Mean: 117 Progress Note : Progress Note Patient was hydrated with a liter of LR. She was then treated with Pepcid and Zofran. After this she was able to take oral medications. She was given her amlodipine, metoprolol, and clonidine. Blood pressure improved significantly and she was sleeping comfortably in the ICU. She was eventually discharged in improved condition. Departure Impression Primary Impression: Nausea vomiting and diarrhea Additional Impression: Essential hypertension Disposition: 01 HOME, SELF-CARE Condition: Improved Departure-Patient Inst. Decision time for Depature: 06:46 Referrals: [facility] (PCP) Primary Care Physician JAVIER MOSS (Family) Primary Care Physician Patient Instructions: Diarrhea in Adolescents and Adults, High Blood Pressure Emergencies Add. Discharge Instructions: Drink plenty of clear liquids to stay well-hydrated. Use Zofran as previously prescribed for treatment of nausea. Call with questions or concerns and return to the ER if you have worsening symptoms. An order for stool specimen is being provided. Please bring a stool specimen back to the hospital as soon as you are able. Resume your blood pressure medications as previously directed. You have already had your morning doses so resume your home medications with evening doses. All discharge instructions reviewed with patient and/or family. Voiced understanding. Copy Copies To 1: JOSIANE KITCHEN JOSHUA T MD May 25, 2021 06:48
[2021-05-25 06:56] VITALS: BP 141/82
--- OUTSIDE RECORDS SUMMARY | 2021-05-27 18:49 | XMS REPORT | Encounter Summary ---
Author Author [facility] Organization [facility] Address Unknown Phone Unavailable Care Team Providers Care Implementation Specialist Payroll Name Role Phone No Pcp, Na Unavailable Unavailable Gustavo Moulton PA-C PCP Encounter Details Care Team Description Date Type Department Brittney Paredes MA salvage determiner current use of immunosuppressi ve drug 05/03/2021 Orders Only Rheumatology: [facility] [address] [place] [address] Social History Date Tobacco Use Types Packs/Day Years Used Never Smoker Smokeless Tobacco: Never Used Drinks/Week oz/Week Comments Alcohol Use Never Alcohol Habits Answer Date Recorded How often do you have a drink containing alcohol? Never 03/09/2019 How many drinks containing alcohol do you have on No t asked a typical day when you are drinking? How often do you have six or more drinks on one Not asked occasion? Sex Assigned at Date Recorded Not on file documented as of this encounter Functional Status Date of Assessment Functional Status Response 10/31/2020 Does the patient have a hearing impairment: No 10/31/2020 Does the patient have a visual impairment: Yes 10/31/2020 Does the patient have impaired ambulation: Yes 10/31/2020 Does the patient have an activity of daily living No (ADL) impairment: 10/31/2020 Does the patient have an instrumental activity of No daily living (IADL) impairment: Date of Assessment Cognitive Status Response 10/31/2020 Does the patient have a cognitive impairment: No documented as of this encounter Plan of Treatment Not on filedocumented as of this encounter Procedures Comments Procedure Name Priority Date/Time Associated Diag nosis CBC AND DIFF Routine 05/01/2021 salvage determiner curre nt use of immunosuppressive drug COMPREHENSIVE METABOLIC Routine 05/01/2021 Long t erm current use of PANEL immunosuppressive drug documented in this encounter Results * CBC AND DIFF (05/01/2021) White Blood OTHER OUTSIDE Cells LAB RBC OTHER OUTSIDE LAB Hemoglobin OTHER OUTSIDE LAB Hematocrit OTHER OUTSIDE LAB MCV OTHER OUTSIDE LAB MCH OTHER OUTSIDE LAB MCHC OTHER OUTSIDE LAB Platelet Count OTHER OUTSIDE LAB MPV OTHER OUTSIDE LAB RDW OTHER OUTSIDE LAB Neutrophils OTHER OUTSIDE LAB Absolute OTHER OUTSIDE Neutrophil LAB Count Lymphocytes OTHER OUTSIDE LAB Absolute Lymph OTHER OUTSIDE Count LAB Monocytes OTHER OUTSIDE LAB Absolute OTHER OUTSIDE Monocyte Count LAB Eosinophil OTHER OUTSIDE LAB Absolute OTHER OUTSIDE Eosinophil LAB Count Basophils OTHER OUTSIDE LAB Absolute OTHER OUTSIDE Basophil Count LAB Atypical Lym OTHER OUTSIDE LAB Metamyelocyte OTHER OUTSIDE LAB Myelocyte OTHER OUTSIDE LAB Promyelocyte OTHER OUTSIDE LAB Blast OTHER OUTSIDE LAB RBC Morph OTHER OUTSIDE LAB WBC Morphology OTHER OUTSIDE LAB Specimen Blood - Blood Narrative Performed At This result has an attachment that is n ot available. Performing Organization Address City/State/ZIP Code P flip Number OTHER OUTSIDE LAB * COMPREHENSIVE METABOLIC PANEL (05/01/2021) Sodium OTHER OUTSIDE LAB Potassium OTHER OUTSIDE LAB Chloride OTHER OUTSIDE LAB CO2 OTHER OUTSIDE LAB Blood Urea OTHER OUTSIDE Nitrogen LAB Creatinine OTHER OUTSIDE LAB Glucose OTHER OUTSIDE LAB Calcium OTHER OUTSIDE LAB Total Protein OTHER OUTSIDE LAB Total Bilirubin OTHER OUTSIDE LAB Albumin OTHER OUTSIDE LAB Alk Phosphatase OTHER OUTSIDE LAB AST (SGOT) OTHER OUTSIDE LAB ALT (SGPT) OTHER OUTSIDE LAB eGFR Non OTHER OUTSIDE LAB Malian eGFR OTHER OUTSIDE Malian LAB Anion Gap OTHER OUTSIDE LAB Specimen Blood - Blood Narrative Performed At This result has an attachment that is n ot available. Performing Organization Address City/State/ZIP Code P flip Number OTHER OUTSIDE LAB documented in this encounter Visit Diagnoses Diagnosis salvage determiner current use of immunosuppress kenny drug documented in this encounter Additional Health Concerns Assessment Noted Time A fall risk assessment has been completed for the pat ient 02/03/2021 12:47 PM CDT PHQ-2 Depression Total Score: 0 01/24/2021 1:48 PM CDT documented as of this encounter
--- OUTSIDE RECORDS SUMMARY | 2021-05-27 18:49 | XMS REPORT | Encounter Summary ---
Author Author [facility] Organization [facility] Address Unknown Phone Unavailable Care Team Providers Care Door Clamp Operator Name Role Phone No Pcp, Na Unavailable Unavailable Gustavo Moulton PA-C PCP Encounter Details Care Team Description Date Type Department Provider, Historical 03/29/2021 Orders Only Rheumatology: [place] [address] [place] [address] Social History Date Tobacco Use Types Packs/Day [...] Procedure Name Priority Date/Time Associated Diag nosis PTT (APTT) Routine 03/26/2021 PROTIME INR (PT) Routine 03/26/2021 D-DIMER Routine 03/26/2021 CBC AND DIFF Routine 03/26/2021 BNP (B-TYPE NATRIURETIC Routine 03/26/2021 PEPTI) LIPASE Routine 03/26/2021 COMPREHENSIVE METABOLIC Routine 03/26/2021 PANEL documented in this encounter Results * PTT (APTT) (03/26/2021) APTT OTHER OUTSIDE LAB Specimen Blood - Blood Narrative Performed At This result has an attachment that is n ot available. Performing Organization Address City/State/ZIP Code P flip Number OTHER OUTSIDE LAB * D-DIMER (03/26/2021) D-Dimer OTHER OUTSIDE LAB Specimen Blood - Blood Narrative Performed At This result has an attachment that is n ot available. Performing Organization Address City/State/ZIP Code P flip Number OTHER OUTSIDE LAB * PROTIME INR (PT) (03/26/2021) INR OTHER OUTSIDE LAB Specimen Blood - Blood Narrative Performed At This result has an attachment that is n ot available. Performing Organization Address City/State/ZIP Code P flip Number OTHER OUTSIDE LAB * BNP (B-TYPE NATRIURETIC PEPTI) (03/26/2021) B Type OTHER OUTSIDE Natriuretic LAB Peptide BNP NT pro OTHER OUTSIDE LAB Specimen Blood - Blood Narrative Performed At This result has an attachment that is n ot available. Performing Organization Address City/State/ZIP Code P flip Number OTHER OUTSIDE LAB * LIPASE (03/26/2021) Lipase OTHER OUTSIDE LAB Specimen Blood - Blood Narrative Performed At This result has an attachment that is n ot available. Performing Organization Address City/State/ZIP Code P flip Number OTHER OUTSIDE LAB * COMPREHENSIVE METABOLIC PANEL (03/26/2021) Sodium OTHER OUTSIDE LAB Potassium OTHER OUTSIDE [...] OUTSIDE LAB eGFR Non OTHER OUTSIDE LAB [place] eGFR OTHER OUTSIDE [place] LAB Anion Gap OTHER OUTSIDE LAB Specimen Blood - Blood Narrative Performed At This result has an attachment that is n ot available. Performing Organization Address City/State/ZIP Code P flip Number OTHER OUTSIDE LAB * CBC AND DIFF (03/26/2021) White Blood OTHER OUTSIDE Cells LAB RBC [...] LAB documented in this encounter Visit Diagnoses Not on filedocumented in this encounter Additional Health Concerns Assessment Noted Time A fall risk assessment has been completed for the pat ient 02/03/2021 12:47 PM CDT PHQ-2 Depression Total Score: 0 01/24/2021 1:48 PM CDT documented as of this encounter
--- OUTSIDE RECORDS SUMMARY | 2021-05-27 18:49 | XMS REPORT | Encounter Summary ---
Author Author [facility] Organization [facility] Address Unknown Phone Unavailable Care Team Providers Care Legal Billing Clerk Name Role Phone No Pcp, Na Unavailable Unavailable Gustavo Moulton PA-C PCP Reason for Visit * Reason Onset Date Comments General Question 03/31/2021 Encounter Details Care Team Description Date Type Department Jose Antonio Swann DO [address] [place] [address] General Question 03/31/2021 Telephone Gastroenterology: [facility] [address] [place] [address] Social History Date Tobacco Use Types Packs/Day [...] Not on filedocumented as of this encounter Visit Diagnoses Not on filedocumented in this encounter Additional Health Concerns Assessment Noted Time A fall risk assessment has been completed for the pat ient 02/03/2021 12:47 PM CDT PHQ-2 Depression Total Score: 0 01/24/2021 1:48 PM CDT documented as of this encounter
--- OUTSIDE RECORDS SUMMARY | 2021-05-27 18:49 | XMS REPORT | Encounter Summary ---
Author Author [facility] Organization [facility] Address Unknown Phone Unavailable Care Team Providers Care Roasterman Name Role Phone No Pcp, Na Unavailable Unavailable Gustavo Moulton PA-C PCP Reason for Visit * Reason Onset Date Comments Care Coordination 05/16/2021 Encounter Details Care Team Description Date Type Department Reuben Berg MD [address] [place] [address] Care Coordination 05/16/2021 Telephone Rheumatology: [facility] [address] [place] [address] Social History Date Tobacco Use [...] impairment: No documented as of this encounter Miscellaneous Notes * Telephone Encounter - Alissa Oneill RN - 05/16/2021 8:19 AM CDT [facility] called for new lab orders . Labs faxed documented in this encounter Plan of Treatment Not on filedocumented as of this encounter Visit Diagnoses Not on filedocumented in this encounter Additional Health Concerns Assessment Noted Time A fall risk assessment has been completed for the pat ient 02/03/2021 12:47 PM CDT PHQ-2 Depression Total Score: 0 01/24/2021 1:48 PM CDT documented as of this encounter
--- OUTSIDE RECORDS SUMMARY | 2021-05-27 18:49 | XMS REPORT | Clinical Summary ---
Author Author [facility] Organization [facility] Address Unknown Phone Unavailable Care Team Providers Care Riveter Pneumatic Name Role Phone No Pcp, Na Unavailable Unavailable Gustavo Moulton PA-C PCP Source Comments Some departments are not documenting in the electronic medical record. If you d o not see the information that you expected, contact Release of Information in [facility] [employer] Information Management department at [phone] for further assistan ce in locating additional records.[facility] Allergies Comments Active Allergy Reactions Severity Noted Date Carbamazepine RASH Medium 03/09/2019 Cephalothin RASH Medium 03/09/2019 Penicillin G RASH Medium 03/09/2019 Penicillins RASH Medium 12/22/2019 Clopidogrel RASH Medium 03/09/2019 Carisoprodol RASH Medium 03/09/2019 Medications End Date Status Medication Sig Dispensed Refills Start Date Active amLODIPine (NORVASC) 10 6 mg tablet 9 Active butalbital-acetaminophen- as Needed. 0 10/22 caffeine (FIORICET WITH 9 CODEINE) 52-186-18-30 mg capsule Active folic acid (FOLVITE) 1 mg 10 tablet 9 Active ropinirole HCl Take 3 mg by 0 (ROPINIROLE mouth daily. PO)Indications: Per Indications: patient takes 1mg in AM, Per patient and takes 2mg in PM. takes 1mg in AM, and takes 2mg in PM. Active furosemide (LASIX) 40 mg Take 40 mg by 0 tablet mouth every 7 days. -Saturday PRN Active pantoprazole DR Take 40 mg by 0 (PROTONIX) 40 mg tablet mouth daily. Active butalbital/acetaminophen/ Take 1 tablet 0 caffeine(+) (FIORICET) by mouth 50/325/40 mg tablet every 4 hours as needed for Headache. Active ondansetron (ZOFRAN ODT) Dissolve 8 mg 0 4 mg rapid dissolve by mouth as tablet Needed for Nausea or Vomiting. Place on tongue to disolve. PRN Active hydroxychloroquine Take 200 mg 0 (PLAQUENIL) 200 mg tablet by mouth twice daily. Take with food. Active metoprolol XL (TOPROL XL) Take 100 mg 0 100 mg extended release by mouth tablet daily. Active Cholecalciferol (Vitamin Take 1 0 D3) (VITAMIN D) 25 mcg capsule by (1,000 unit) cap mouth daily. Active tramadol HCl (TRAMADOL Take 50 mg by 0 PO) mouth daily. "1-2 tabs every 4hrs- PRN" Active magnesium oxide (MAG-OX) Take one 180 tablet 0 1 400 mg (241.3 mg tablet by 0 magnesium) tablet mouth daily as needed. Additional Information Patient taking differently: 400 mg Oral DAILY PRN, PRN, Reported on 01/24/2021 Active riboflavin (vitamin B2) Take one 0 400 mg tab tablet by 0 mouth daily as needed. Additional Information Patient taking differently: 400 mg Oral DAILY PRN, PRN, Reported on 01/24/2021 Active HYDROcodone/acetaminophen Take 1 tablet 0 (NORCO) 7.5/325 mg tablet by mouth every 4 hours Per pt not taking Active aspirin EC 81 mg tablet Take 81 mg by 0 mouth daily. Take with food. Active topiramate (TOPAMAX) 50 Take 1.5 270 tablet 3 mg tablet tablets by 1 mouth twice daily. Active cloNIDine (CATAPRESS) 0.1 Take 0.1 mg 0 04/0 mg tablet by mouth 1 twice daily. Active leflunomide (ARAVA) 10 mg Take 1 tablet 90 tablet 0 tablet by mouth once 1 daily Active Problems Problem Noted Date History of pancreatitis 02/03/2021 Overview: Formatting of this note might be differ ent from the original. I recommend she follow up with her PCP and/or GI specialist for this history. History of heart attack 02/03/2021 Overview: Formatting of this note might be differ ent from the original. I recommend she follow up with her PCP and revenue specialist for this history. H/O: stroke 02/03/2021 Overview: Formatting of this note might be differ ent from the original. I recommend she follow up with her PCP and Neurology specialist for this history. She has plans to follow up wi th ENT for swallow study next week. H/O chronic kidney disease 02/03/2021 Overview: Formatting of this note might be differ ent from the original. I recommend she follow up with her PCP and Nephrology specialist for this history. Weight loss 11/08/2020 Overview: Formatting of this note might be differ ent from the original. I recommend she follow up with her PCP for further evaluation. Ultimately I will leave further evaluation and ref errals to other specialties to her PCPs discretion if they feel such as ap propriate. Elevated blood pressure reading 12/29/2019 Overview: Formatting of this note might be differ ent from the original. The patient's BP is elevated and, becau se we are specialists not managing elevated BP, the patient is referred ba ck to Primary Care Provider for follow up of this problem. Hypogammaglobulinemia 12/29/2019 Overview: Formatting of this note might be differ ent from the original. 05-18-19 absolute CD3, CD8, CD19, CD16/5 6 counts within normal limits Absolute CD4 count was 377 (normal 400 2160) CMP with creatinine 1.53 (patient has k nown history of CKD stage III), low calcium, elevated alk phos CBC with differential normal except for absolute neutrophil count 8100 (normal 1800 7000) and absolute lymphocyte count 900 (normal 1000 4800) IgG 629 mg/DL (normal 762 1488) IgA normal IgM 398 mg/DL (normal 30 328) 18/23 pneumococcal IgG serotypes above the reference range Tetanus toxoid IgG appropriately positi ve SPEP normal/negative Immunofixation without paraproteinemia Urinalysis with 1+ protein 3-10-20 total hemolytic complement norm al Absolute CD4 count normal IgG 668 mg/DL (normal 762 1488) IgA normal IgM 440 mg/DL (normal 30 328) 1--21 IgG 713 mg/DL (normal 762 1488) IgA normal IgM 385 mg/DL (normal 30 328) Given her history of CKD stage III and proteinuria on urinalysis, we cannot rule out a possible secondary hy pogammaglobulinemia from history of CKD. If there is a potential secondary hypogammaglobulinemia component, treatment is typically targeted at the underlying etiology by the specialist managing that underlying zen ology, if possible. I hadvepreviously recommended that she follow-up with her PCP and digital project coordinator for further evaluation of abnormalities noted on test that I have detailed above including the abnor mal creatinine, low calcium, elevated alkaline phosphatase. In December 2019, she tried prophylactic a ntibiotic regimen with doxycycline 100 mg daily, and took such for 1 week but developed diarrhea and stopped it on her own. In the calendar 2019, she required 1 course of 2 antibiotics to treat a UTI and vaginal infection. She other kebede required no antibiotics in the calendar 2019 to treat any infecti on. So far in the calendar year 2020, she r eports 1 infection, pneumonia. We'll obtain records from [facility]. Today, we discussed methods, merits, li mitations, and potential risks of a trial of prophylactic antibiotics and/o r IgG supplementation for her history of unspecified hypogammaglobuli nemia. We also discussed that her IgG level has been slowly normalizing o jesse time and is now greater than 700 mg/DL. At this time, she prefers to le ave prophylactic antibiotics and IgG supplementation on the back burner. She will notify us if she gets any infe ctions. Repeat IgG, IgA, IgM today. Pain of right breast 12/21/2019 Overview: Formatting of this note might be differ ent from the original. Diagnosis: 1. Left grade 1, DCIS (ER10%, SC 20% He r2 3+, FISH 10.5, Ki-67 5%), dx 2008 2. Pain and enlargement of breast of [facility] breast Procedure: Left lumpectomy, 11/18/2008 History: Ms. Barros is a female who presented to the Breast Surgery Clinic on 12/22/2019 at age 69 for evalua tion of pain and enlargement of the right breast. She has a history of left breast cancer and underwent a left lumpectomy 11/18/2018. Surgical patholog y showed a 6.5 cm, grade 1, DCIS that was <1 mm from the posterior and l ateral margins and there were 2 negative SLNs. She completed radiation therapy and took Arimidex for 8 years. In December 2018, she first develop ed pain in the right breast. The right breast also started to become lar robyn than the left breast. She had a breast MRI in february 2019 which was BIRADS 2. The pain persisted and she developed significant asymmetry of her breasts. She was referred to the breast clinic for evaluation. Breast Imaging: Mammogram: - Screening mammograms 06/20/2018 ([facility]) showed heterogeneously dense breast tissue. Po st-op changes were seen in the left breast including coarse calcifications in this region seen previously, were again evident and did not seem to have changed significantly. There was no evidence for recurrent malignancy in th is region. There were no other concerning findings seen. BIRADS 1. - Right diagnostic mammogram 08/14/2018 ([facility]) showed scattered benign-appearing parenchymal and vascular calcifications. No mass or malignant appearing calcifications w ere seen. The right axilla was unremarkable. BIRADS 2. Ultrasound: - Right breast ultrasound 08/14/2018 ([facility]) no abnormal findings. BIRADS 1. MRI: - Breast MRI 03/03/2019 ([facility] Celine jones): Mild background glandularity and background enhancement, right great er than left, was noted. No significant axillary or internal mammar y adenopathy. Postsurgical changes of lumpectomy were noted in the left br east at 1:00, middle to posterior depth and fat necrosis was present at t his location. No suspicious enhancing mass or non-mass enhancement within the left breast. A few small foci of enhancement were identified and scattered throughout the right breast, though there was no suspicious enhancing mass or non-mass enhancement within the right breast. BI RADS 2. Other Imaging: - CT chest 12/05/2018 ([facility]) show ed no evidence of thoracic aortic dissection. No definite pulmonary embol ism was seen. The pulmonary arteries were prominent centrally which could be owing to a component of pulmonary arterial hypertension. This was similar to prior study. A right hemidiaphragmatic elevation with right basilar subsegmental atelectasis. There were some patchy ground-glass opa cities in the upper lobes bilaterally which appeared chronic and present on exam 07/15/2018. No new abnormality was identified. - Bone scan 03/17/2019 ([facility]): Im pression: No scintigraphic evidence of osseous metastatic disease. Past Medical History: Inflammatory arth ritis (on Plaquenil), Stage II renal disease, HTN, hyperlipidemia, Hx of "silent" [place], hx of GI bleed in 2002, hx of esophogeal varices, migrain es Family History: Father had stomach canc er at 72. Maternal aunt had breast cancer. Negative for ovarian and prosta te cancer. Reproductive health: Age at Menarche: 14 Age at First Live : 17 Age at Menopause: surgical menopause at 23; HRT x 5 years : 4 Para: 4 Did patient breastfeed?: Did not breast feed Referred by: Lola Benson APRN Resolved Problems Problem Noted Date Resolved Date History of diarrhea & vomiting 11/08/2020 021 Encounters Care Team Description Date Type Specialty Reuben Berg MD Care Coordination 05/16/2021 Telephone Rheumatology Brittney Paredes MA ferry terminal supervisor current use of immunosuppressi ve drug 05/03/2021 Orders Only Rheumatology Jose Antonio Swann, DO General Question 03/31/2021 Telephone Gastroenterology Provider, Historical 03/29/2021 Orders Only Rheumatology Elizabeth Fall LMSW 03/22/2021 Documentation Transplant Surgery Reuben Berg MD 03/14/2021 Refill Rheumatology Provider, Historical ferry terminal supervisor current use of immunosuppressi ve drug 03/01/2021 Orders Only Rheumatology from Last 3 Months Surgical History Surgery Date Site/Laterality Comments EYE SURGERY DIVERTICULECTOMY [place] LYMPH NODE BIOPSY PORTACATH PLACEMENT THYROIDECTOMY 10/21/1972 - 10/20/1973 HX HEART CATHETERIZATION HX HYSTERECTOMY 10/21/1972 - with BSO 10/20/1973 COLONOSCOPY ABDOMEN SURGERY 10/21/2002 - repair of GI bleed 10/20/2003 SPINE SURGERY 2000, 2002 ABDOMINAL WALL SURGERY 10/21/2016 - closure of woun d cause by mesh 10/20/2017 KNEE SURGERY 10/21/2018 - Right 10/20/2019 SHOULDER SURGERY 10/21/2018 - Right 10/20/2019 HERNIA REPAIR 10/21/2005 - 10/20/2006 Medical History Medical History Date Comments Inflammatory arthritis on plaquenil CKD (chronic kidney disease) stage 2, GFR 60-89 ml/min Chronic pain Osteoarthritis Hyperlipidemia Hypertension Migraines Breast cancer (HCC) 2008 left DCIS Back pain Heart disease [place] (myocardial infarction) (HCC) hx of "silent" [place], date unknown Stage 2 chronic kidney disease History of GI bleed 2002 History of MRSA infection Hx of esophageal varices 2003 Diabetes (HCC) Covid-19 October 2020 Pneumonia October 2020 History of heart attack 10/2020 History of cardiac monitoring Pancreatitis 10/2020 History of stroke 10/2020 History of seizure 10/2020 Family History Medical History Relation Name Comments Arthritis-rheumatoid Brother Heart Disease Brother High Cholesterol Brother Hypertension Brother Cancer Father Cancer-Breast Maternal Aunt Migraines Maternal Aunt Relation Name Status Comments Brother Alive Father Maternal Aunt Alive Mother Social History Date Tobacco Use Types Packs/Day [...] Assigned at Date Recorded Not on file Obstetrics History Term Pre Abrt (TAB) (SAB) (Ect) Mult Lvng Comments Grav Para Age at M enarche: 14 Age at First Live : 17 Age at Menopause: surgical menopause at 23; HRT x 5 years : 4 Para: 4 Did patient breastfeed?: Did not breast feed 4 4 Date GA Total Labor Labor/2nd/3rd Weight Sex Delivery Anes PTL Tamar A1 A5 Name Clin Outcome Para Para Para Para Last Filed Vital Signs Reading Time Taken Comments Vital Sign 134/75 02/03/2021 12:41 PM CDT Blood Pressure 76 02/03/2021 12:41 PM CDT Pulse 36.6 C (97.9 F) 01/24/2021 1:42 PM CDT Temperature 18 01/24/2021 1:42 PM CDT Respiratory Rate 97% 02/03/2021 12:41 PM CDT Oxygen Saturation - - Inhaled Oxygen Concentration 74.8 kg (165 lb) 02/03/2021 12:41 PM CDT Weight 162.6 cm (5' 4") 02/03/2021 12:41 PM CDT Height 28.32 02/03/2021 12:41 PM CDT Body Mass Index Plan of Treatment Health Maintenance Due Date Last Done Comments MEDICARE ANNUAL WELLNESS 1948 VISIT DTAP/TDAP VACCINES (1 - 1966 Tdap) PHYSICAL (COMPREHENSIVE) 1966 EXAM COLORECTAL CANCER 1998 SCREENING OSTEOPOROSIS 2013 SCREENING/MONITORING PNEUMONIA (PPSV23) 2013 VACCINE (1 of 1 - PPSV23) BREAST CANCER SCREENING 12/21/2020 12/22/2019 INFLUENZA VACCINE 2021 10/20/2018 SHINGLES RECOMBINANT Completed 11/17/2019, VACCINE 07/29/2019 HEPATITIS C SCREENING Completed 10/31/2020 Procedures Comments Procedure Name Priority Date/Time Associated Diag nosis CBC AND DIFF Routine 05/01/2021 custodial curre nt use of immunosuppressive drug COMPREHENSIVE METABOLIC Routine 05/01/2021 Long t erm current use of PANEL immunosuppressive drug PTT (APTT) Routine 03/26/2021 D-DIMER Routine 03/26/2021 PROTIME INR (PT) Routine 03/26/2021 BNP (B-TYPE NATRIURETIC Routine 03/26/2021 PEPTI) LIPASE Routine 03/26/2021 COMPREHENSIVE METABOLIC Routine 03/26/2021 PANEL CBC AND DIFF Routine 03/26/2021 CBC AND DIFF Routine 02/24/2021 custodial curre nt use of immunosuppressive drug COMPREHENSIVE METABOLIC Routine 02/24/2021 Long t erm current use of PANEL immunosuppressive drug from Last 3 Months Results * CBC AND DIFF (05/01/2021) Only the most recent of 3 results within the time period is included. White Blood OTHER OUTSIDE Cells LAB RBC [...] OUTSIDE LAB * COMPREHENSIVE METABOLIC PANEL (05/01/2021) Only the most recent of 3 results within the time period is included. Sodium OTHER OUTSIDE LAB Potassium OTHER OUTSIDE [...] eGFR Non OTHER OUTSIDE LAB [place] eGFR OTHER OUTSIDE [place] LAB Anion Gap OTHER OUTSIDE LAB Specimen Blood - Blood Narrative Performed At This result has an attachment that is n ot available. Performing Organization Address City/State/ZIP [facility] P flip Number OTHER OUTSIDE LAB * PTT (APTT) (03/26/2021) APTT OTHER OUTSIDE LAB Specimen Blood - Blood Narrative Performed At This result has an attachment that is n ot available. Performing Organization Address [facility] P flip Number OTHER OUTSIDE LAB * PROTIME INR (PT) (03/26/2021) INR OTHER OUTSIDE LAB Specimen Blood - Blood Narrative Performed At This result has an attachment that is n ot available. Performing Organization Address [facility] P flip Number OTHER OUTSIDE LAB * D-DIMER (03/26/2021) D-Dimer OTHER OUTSIDE LAB Specimen Blood - Blood Narrative Performed At This result has an attachment that is n ot available. Performing Organization Address [facility] P flip Number OTHER OUTSIDE LAB * BNP (B-TYPE NATRIURETIC PEPTI) (03/26/2021) B Type OTHER OUTSIDE Natriuretic LAB Peptide BNP NT pro OTHER OUTSIDE LAB Specimen Blood - Blood Narrative Performed At This result has an attachment that is n ot available. Performing Organization Address [facility]/ZIP [facility] P flip Number OTHER OUTSIDE LAB * LIPASE (03/26/2021) Lipase OTHER OUTSIDE LAB Specimen Blood - Blood Narrative Performed At This result has an attachment that is n ot available. Performing Organization Address City/[facility]/ZIP [facility] P flip Number OTHER OUTSIDE LAB from Last 3 Months Insurance Type Payer Benefit Subscriber ID Effective Phone Address Plan / Dates Group Medicare MEDICARE MEDICARE [id number] 2002-P PART A AND resent B PPO [facility] AAR [id number] 2018-P resent [id number] [phone] Advance Directives Patient Motion Picture Critic Explanation Type Date Recorded Advance 12/22/2019 10:38 AM Directive/DPOA
== END 2021-05-25 07:05 | disposition home or self-care (01) ==
LOC: EDUNIT# 03:30 → ER 03:32
DX: R11.2 Nausea with vomiting, unspecified (principal); R19.7 Diarrhea, unspecified; I12.9 Hypertensive chronic kidney disease with stage 1 through stage 4 chronic kidney disease, or unspecified chronic kidney disease; E11.22 Type 2 diabetes mellitus with diabetic chronic kidney disease; N18.2 Chronic kidney disease, stage 2 (mild); E11.40 Type 2 diabetes mellitus with diabetic neuropathy, unspecified; E78.00 Pure hypercholesterolemia, unspecified; I25.2 Old myocardial infarction; I25.10 Atherosclerotic heart disease of native coronary artery without angina pectoris; G43.909 Migraine, unspecified, not intractable, without status migrainosus; K21.9 Gastro-esophageal reflux disease without esophagitis; G89.29 Other chronic pain; M54.9 Dorsalgia, unspecified; D50.9 Iron deficiency anemia, unspecified; Z95.5 Presence of coronary angioplasty implant and graft; Z79.82 Long term (current) use of aspirin; Z79.891 Long term (current) use of opiate analgesic; Z79.899 Other long term (current) drug therapy; Z86.16 Personal history of COVID-19; Z20.822 Contact with and (suspected) exposure to COVID-19
CPT/HCPCS: 36415; 80053; 81000; 83690; 83735; 85025; 86141; 87636; 96361; 96374; 96375

== ENCOUNTER → 2021-05-26 | Outpatient (CLI) | payer MEDICARE | LOC: WOUNDCARE 13:47 | PROVIDERS: ATTEND Orthopaedic Surgery Hand Surgery | DX: I87.332 Chronic venous hypertension (idiopathic) with ulcer and inflammation of left lower extremity (principal); I96 Gangrene, not elsewhere classified; L97.222 Non-pressure chronic ulcer of left calf with fat layer exposed; S81.802A Unspecified open wound, left lower leg, initial encounter; I70.242 Atherosclerosis of native arteries of left leg with ulceration of calf | CPT/HCPCS: 11042; 11045; 97605; G0463 ==

== ENCOUNTER 2021-05-29 10:14 | Outpatient (CLI) | payer MEDICARE ==
[2021-05-29 10:45] VITALS: BP 110/72
[2021-05-29 11:28] LABS: BASOPHILS # (AUTO) 0.1 10^3/uL (0.0-0.1); BASOPHILS % (AUTO) 1 % (0-10); EOSINOPHILS # (AUTO) 0.2 10^3/uL (0.0-0.3); EOSINOPHILS % (AUTO) 3 % (0-10); HEMATOCRIT 38 % (35-52); HEMOGLOBIN 12.1 g/dL (11.5-16.0); LYMPHOCYTES # (AUTO) 1.6 10^3/uL (1.0-4.0); LYMPHOCYTES % (AUTO) 25 % (12-44); MEAN CORPUSCULAR HEMOGLOBIN 28 pg (25-34); MEAN CORPUSCULAR HGB CONC 32 g/dL (32-36); MEAN CORPUSCULAR VOLUME 89 fL (80-99); MEAN PLATELET VOLUME 9.5 fL (9.0-12.2); MONOCYTES # (AUTO) 0.7 10^3/uL (0.0-1.0); MONOCYTES % (AUTO) 10 % (0-12); NEUTROPHILS # (AUTO) 3.9 10^3/uL (1.8-7.8); NEUTROPHILS % (AUTO) 61 % (42-75); PLATELET COUNT 245 10^3/uL (130-400); WHITE BLOOD COUNT 6.5 10^3/uL (4.3-11.0)
[2021-05-29 11:39] LABS: ALBUMIN 3.6 GM/DL (3.2-4.5)
[2021-05-29 11:40] LABS: POTASSIUM 4.3 MMOL/L (3.6-5.0)
[2021-05-29 11:41] LABS: CALCIUM 8.6 MG/DL (8.5-10.1)
[2021-05-29 11:42] LABS: TOTAL PROTEIN 6.5 GM/DL (6.4-8.2)
[2021-05-29 11:44] LABS: BILIRUBIN,TOTAL 0.3 MG/DL (0.1-1.0)
[2021-05-29 11:46] LABS: CREATININE SERUM 1.23 MG/DL (0.60-1.30)
== END 2021-05-29 11:15 | disposition home or self-care (01) ==
LOC: LAB 10:14
PROVIDERS: ATTEND Internal Medicine Rheumatology
DX: Z79.899 Other long term (current) drug therapy (principal)
CPT/HCPCS: 36415; 80053; 85025

== ENCOUNTER 2021-05-29 10:56 | Outpatient (RCR) | payer MEDICARE ==
[2021-05-01 12:45] VITALS: BP 101/74
[~2021-05-29] VITALS: Ht 162.6 cm; Wt 72.7 kg
[~2021-05-29 10:56] MED LIST changes: +HEParin (CENTRAL IV FLUSH) 500 UNIT/5 ML SYR IV PRN; +HEParin (CENTRAL IV FLUSH) 500 UNIT/5 ML SYR ONE
[2021-05-29] MEDS: HEParin (CENTRAL IV FLUSH) 500 UNIT/5 ML SYR ONE (11:15)
[2021-05-29 11:20] VITALS: BP 110/72
[2021-05-31] MEDS ORDERED: HEParin (CENTRAL IV FLUSH) 500 UNIT/5 ML SYR IV PRN (11:30)
== END 2021-07-30 | disposition home or self-care (01) ==
LOC: SDC 10:56
PROVIDERS: ATTEND Physician Assistant
DX: Z45.2 Encounter for adjustment and management of vascular access device (principal)
CPT/HCPCS: 96523

== ENCOUNTER → 2021-05-29 | Outpatient (CLI) | payer MEDICARE | LOC: WOUNDCARE 09:07 | PROVIDERS: ATTEND Surgery | DX: L97.222 Non-pressure chronic ulcer of left calf with fat layer exposed (principal) | CPT/HCPCS: 97605; G0463 ==

== ENCOUNTER → 2021-06-01 | Outpatient (CLI) | payer MEDICARE ==
[~2021-06-01] MED LIST changes: -HEParin (CENTRAL IV FLUSH) 500 UNIT/5 ML SYR IV PRN; -HEParin (CENTRAL IV FLUSH) 500 UNIT/5 ML SYR ONE
== END ==
LOC: WOUNDCARE 14:32
PROVIDERS: ATTEND Surgery
DX: I87.332 Chronic venous hypertension (idiopathic) with ulcer and inflammation of left lower extremity (principal); S81.802A Unspecified open wound, left lower leg, initial encounter; L97.222 Non-pressure chronic ulcer of left calf with fat layer exposed; I70.242 Atherosclerosis of native arteries of left leg with ulceration of calf; I96 Gangrene, not elsewhere classified
CPT/HCPCS: 11042; 11045; 97605; G0463

== ENCOUNTER → 2021-06-07 | Outpatient (CLI) | payer MEDICARE | LOC: WOUNDCARE 08:04 | PROVIDERS: ATTEND Surgery | DX: I87.332 Chronic venous hypertension (idiopathic) with ulcer and inflammation of left lower extremity (principal); S81.802A Unspecified open wound, left lower leg, initial encounter; I96 Gangrene, not elsewhere classified; L97.222 Non-pressure chronic ulcer of left calf with fat layer exposed | CPT/HCPCS: 11042; 11045; G0463 ==

== ENCOUNTER 2021-06-20 17:27 | Emergency (ER) | payer MEDICARE ==
[2021-06-20 17:30] VITALS: BP 150/98
--- OUTSIDE RECORDS SUMMARY | 2021-06-20 17:31 | XMS REPORT | Clinical Summary ---
Author Author [facility] Organization [facility] Address Unknown Phone Unavailable Care Team Providers Care Formula Weigher Name Role Phone No Pcp, Na Unavailable Unavailable Gustavo Moulton PA-C PCP Source Comments Some departments are not documenting in the electronic medical record. If you d o not see the information that you expected, contact Release of Information in [facility] [employer] Information Management department at [phone] for further assistan ce in locating additional records.[facility] Allergies Comments Active Allergy Reactions Severity Noted Date Carbamazepine RASH Medium 03/09/2019 Cephalothin RASH Medium 03/09/2019 Penicillin G RASH Medium 03/09/2019 Penicillins RASH Medium 12/22/2019 Clopidogrel RASH Medium 03/09/2019 Carisoprodol RASH Medium 03/09/2019 Medications End Date Status Medication Sig Dispensed Refills Start Date Active amLODIPine (NORVASC) 10 6 mg tablet 9 Active butalbital-acetaminophen- as Needed. 0 10/22 caffeine (FIORICET WITH 9 CODEINE) 07-688-16-30 mg capsule Active folic acid (FOLVITE) 1 [...] she follow up with her PCP and strategic planning specialist for this history. H/O: stroke 02/03/2021 [...] that she follow-up with her PCP and frog shaker for further evaluation of abnormalities noted on [...] Diagnosis: 1. Left grade 1, DCIS (ER10%, ND 20% He r2 3+, FISH 10.5, Ki-67 5%), dx 2008 2. Pain and enlargement of breast of [facility] breast Procedure: Left lumpectomy, 11/18/2008 History: Ms. [...] Imaging: Mammogram: - Screening mammograms 06/20/2018 ([facility]) showed heterogeneously dense breast tissue. Po st-op changes were seen in the left breast including coarse calcifications in this region seen previously, were again evident and did not seem to have changed significantly. There was no evidence for recurrent malignancy in th is region. There were no other concerning findings seen. BIRADS 1. - Right diagnostic mammogram 08/14/2018 ([facility]) showed scattered benign-appearing parenchymal and vascular calcifications. No mass or malignant appearing calcifications w ere seen. The right axilla was unremarkable. BIRADS 2. Ultrasound: - Right breast ultrasound 08/14/2018 ([facility]) no abnormal findings. BIRADS 1. MRI: - Breast MRI 03/03/2019 ([facility] Celine jones): Mild background glandularity and background [...] Other Imaging: - CT chest 12/05/2018 ([facility]) show ed no evidence of thoracic aortic [...] was identified. - Bone scan 03/17/2019 ([facility]): Im pression: No scintigraphic evidence of osseous metastatic disease. Past Medical History: Inflammatory arth ritis (on Plaquenil), Stage II renal disease, HTN, hyperlipidemia, Hx of "silent" [place], hx of GI bleed in 2002, hx [...] Coordination 05/16/2021 Telephone Rheumatology Brittney Paredes MA emt intermediate current use of immunosuppressi ve drug 05/03/2021 Orders Only Rheumatology Jose Antonio Swann, DO General Question 03/31/2021 Telephone Gastroenterology Provider, Historical 03/29/2021 Orders Only Rheumatology Elizabeth Fall LMSW 03/22/2021 Documentation Transplant Surgery from Last 3 Months Surgical History Surgery [...] 2008 left DCIS Back pain Heart disease [place] (myocardial infarction) (HCC) hx of "silent" [place], date unknown Stage 2 chronic kidney disease History of GI bleed 2002 History of MRSA infection Hx of esophageal varices 2002 Diabetes (HCC) Covid-19 October 2020 Pneumonia October [...] Used Never Smoker Smokeless Tobacco: Never Used Comments Alcohol Use Standard Drinks/Week Never 0 (1 standard drink = 0.6 o z pure alcohol) Alcohol Habits Answer Date Recorded How often [...] Diag nosis CBC AND DIFF Routine 05/01/2021 emt intermediate curre nt use of immunosuppressive drug COMPREHENSIVE METABOLIC Routine 05/01/2021 Long t erm current use of PANEL immunosuppressive drug PTT (APTT) Routine 03/26/2021 D-DIMER Routine 03/26/2021 PROTIME INR (PT) Routine 03/26/2021 BNP (B-TYPE NATRIURETIC Routine 03/26/2021 PEPTI) LIPASE Routine 03/26/2021 COMPREHENSIVE METABOLIC Routine 03/26/2021 PANEL CBC AND DIFF Routine 03/26/2021 from Last 3 Months Results * CBC AND DIFF (05/01/2021) Only the most recent of 2 results within the time period is included. [...] PANEL (05/01/2021) Only the most recent of 2 results within the time period is included. [...] OUTSIDE LAB eGFR Non OTHER OUTSIDE LAB [place] eGFR OTHER OUTSIDE [place] LAB Anion Gap OTHER OUTSIDE LAB Specimen [...] Code P flip Number OTHER OUTSIDE LAB from Last 3 Months Insurance Type Payer Benefit Subscriber ID Effective Phone Address Plan / Dates Group Medicare MEDICARE MEDICARE [id number] 2002-P PART A AND resent B PPO [facility] AAR [id number] 2018-P SUPPLEMENT resent [id number] [phone] Advance Directives Patient Support Clerk Explanation Type Date Recorded Advance 12/22/2019 10:38 AM Directive/DPOA
[2021-06-20] MEDS ORDERED: NS IV 500 ML 500 ML IV ONE (18:00)
--- NOTE | 2021-06-20 18:05 | ED Psychosocial ---
General Chief Complaint: Psych/Social Disorder Stated Complaint: SUICIDAL Nursing Triage Note: Pt to ED via EMS. EMS reports they were called by CHELSEA because pt is suicidal. EMS reports pt won't state if pills were taken or not. EMS reports pt's prescriptions were on bedside table. EMS reports pt stated, "Damn right, I'm suicidal." Pt c/o migraine headache for 3-4 days and reports Fiorinal is not working. When asked if pt is suicidal, pt reports, "It's a figure of speech." Pt reports to this nurse not feeling suicidal and states, "It's a figure of speech, but I told the police I have stuff to take care of it at home. Pt reports 100 degree fever at home. Pt tearful and crying when talking with Dr. Car. Source: patient, EMS Exam Limitations: no limitations (GUSTABO CAR) History of Present Illness Date Seen by Provider: Jun 20, 2021 Time Seen by Provider: 17:40 Initial Comments Patient to the ER by EMS with chief complaint that she was talking to some family members and made some overt statements that she did not know why she was still living because of all pain and loneliness and sorrow she was in during with her isolation at home. Her significant other then called police to do a welfare check and when the police checked on her they found her in her home and asked her if she had made any statements like that or if she wanted to kill herself and she said them right she did want to kill herself. She says she w ants to . She does not have a plan to do this nor has she done anything to kill herself. She denies ever having a suicide attempt before. She denies ever staying in an inpatient psychiatric hospital. At first she tried to minimalize her statements saying they were just general comments made in passing but when pressed about her statements she opened up about her despair and worsening depression. Her isolation is due to her pain in her low back and her leg keeping her from going downtown to get groceries or get out of the house. She has been on hydrocodone for a long time for this pain. She says she goes to her primary care doctor at [facility] and does not feel like she is making any advances on her symptoms. She has a wound from April 23 on her left leg that is being treated by Dr. Cope and slowly healing. She is not having a fever although she says she checked her temperature a day or 2 ago and it was 100.0. She has not had a cough or shortness of air. No chest pain, nausea vomiting diarrhea or consti pation. She states she has lost about 30 pounds over the past 6 months. (GUSTABO CAR) Allergies and Home Medications Allergies Coded Allergies: clopidogrel (Verified Allergy, Severe, BLOOD CLOTS, 11/27/18) Penicillins (Verified Allergy, Mild, RASH, 11/27/18) carisoprodol (Verified Allergy, Mild, RASH, 11/27/18) cephalexin (Verified Allergy, Mild, RASH, 11/27/18) ketorolac (Verified Allergy, Mild, RASH, 11/27/18) prochlorperazine (Verified Allergy, Mild, RASH, 11/27/18) Carbamates (Verified Allergy, Unknown, Rash, 05/28/19) Home Medications Albuterol Sulfate 2.5 Mg/3 Ml Vial.neb, 2 PUFF INH Q4H PRN for SHORTNESS OF BREATH Prescribed by: DASIA FRANKLIN on 11/25/20 1101 Amlodipine Besylate 10 Mg Tablet, 10 MG PO DAILY, (Reported) Aspirin 81 Mg Tablet.dr, 81 MG PO DAILY Prescribed by: OLIVE ISAAC on 11/21/20 1010 Atorvastatin Calcium 40 Mg Tablet, 40 MG PO HS, (Reported) Cholecalciferol (Vitamin D3) 50 Mcg Tablet, 50 MCG PO DAILY, (Reported) Codeine/Butalbital/ASA/Caffein 1 Each Capsule, 1 EACH PO DAILY PRN for MIGRAINE, (Reported) Duloxetine HCl 30 Mg Capsule.dr, 30 MG PO DAILY, (Reported) TAKE ALONG WITH 60MG CAP FOR A TOTAL DAILY DOSE OF 90MG Folic Acid 1 Mg Tablet, 1 MG PO DAILY, (Reported) Furosemide 40 Mg Tablet, 40 MG PO DAILY PRN for EDEMA Prescribed by: OLIVE ISAAC on 11/21/20 1010 Hydrocodone/Acetaminophen 1 Each Tablet, 1-2 EACH PO Q4-6 HOURS PRN for PAIN Prescribed by: RAPHAEL DUNCAN on 11/26/20 2107 Hydroxychloroquine Sulfate 200 Mg Tablet, 200 MG PO BID, (Reported) Hyoscyamine Sulfate 0.125 Mg Tab.subl, 0.25 MG SL Q4H Prescribed by: RAPHAEL DUNCAN on 11/26/202106 Levetiracetam 500 Mg Tablet, 500 MG PO BID Prescribed by: OLIVE ISAAC on 11/21/20 1010 Metoprolol Succinate 100 Mg Tab.er.24h, 100 MG PO DAILY, (Reported) Nitrofurantoin Macrocrystal 100 Mg Capsule, 100 MG PO BID Prescribed by: ARGELIA CA on 02/06/21 1309 Ondansetron 4 Mg Tab.rapdis, 4 MG PO Q4H PRN for NAUSEA-1ST LINE Prescribed by: DASIA FRANKLIN on 11/25/20 1101 Ondansetron 8 Mg Tab.rapdis, 8 MG PO Q6H Prescribed by: RAPHAEL DUNCAN on 11/26/202106 Oxycodone HCl/Acetaminophen 1 Each Tablet, 1 TAB PO Q4H PRN for PAIN-MODERATE Prescribed by: GUSTABO CAR on 05/10/21 1705 Pantoprazole Sodium 40 Mg Tablet.dr, 40 MG PO DAILY, (Reported) Pantoprazole Sodium 40 Mg Tablet.dr, 40 MG PO DAILY Prescribed by: RAPHAEL DUNCAN on 11/26/202106 Prednisone 20 Mg Tab, 40 MG PO DAILY Prescribed by: JARED ODELL on 03/26/21 1523 Sulfamethoxazole/Trimethoprim 1 Each Tablet, 7 EACH PO BID Prescribed by: GUSTABO CAR on 05/10/21 0652 Topiramate 50 Mg Tablet, 75 MG PO BID, (Reported) TAKE 1 & 1/2 OF 50MG TAB Patient Home Medication List Home Medication List Reviewed: Yes (GUSTABO CAR) Review of Systems Constitutional: No chills, No diaphoresis EENTM: No ear discharge, No ear pain Respiratory: No cough, No short of breath Cardiovascular: No chest pain, No palpitations Gastrointestinal: No abdominal pain, No nausea, No vomiting Genitourinary: No discharge, No dysuria Musculoskeletal: see HPI, back pain; No joint pain Skin: see HPI Psychiatric/Neurological: Depressed (GUSTABO CAR) All Other Systems Reviewed Negative Unless Noted: Yes (GUSTABO CAR) Past Bumsmwy-Bmswcq-Vnmspx Hx Patient Social History Tobacco Use?: No Use of E-Cig and/or Vaping dev: No Substance use?: No Alcohol Use?: No (GUSTABO CAR) Immunizations Up To Date Tetanus Booster (TDap): Unknown (GUSTABO CAR) Seasonal Allergies Seasonal Allergies: No (GUSTABO CAR) Past Medical History Surgery/Hospitalization HX: MA HX, STROKE HX, PANCREATITIS, PNEUMONIA HX, COVID HX Surgeries: Yes (R CTR, espohageal ligation x2, Hernia, L RCR, L TKR, laparotomy, MRSA infec) Abdominal, Breast, Cardiac, Coronary Stent, Hysterectomy, Joint Replacement, Oophorectomy, Orthopedic, Thyroidectomy Respiratory: Yes (COVID-19 November 07, 2020-ADMITTED WITH PNEUMONIA) Pneumonia Currently Using CPAP: No Currently Using BIPAP: No Cardiac: Yes (HX HEART CATH-STENT;MILD BILAT CAROTID STENOSIS;DVT L ARM DUE TO PICC LINE) Coronary Artery Disease, Deep Vein Thrombosis, Heart Attack, High Cholesterol, Hypertension, Peripheral Vascular Neurological: Yes Headaches /Migraines, Neuropathy 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, Menopausal Sexually Transmitted Disease: No HIV/AIDS: No Genitourinary: Yes (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,STAGE 2-KIDNEY DISEASE;DIABETIC NEPHROPA ) Bladder Infection, Renal Failure, Dialysis Gastrointestinal: Yes (HX GI BLEED, zenkers syndrome-chokes easily, hx hep A;LIVER INJURY/TRAUMA) Abdominal Hernia, Gastroesophageal Reflux, Gastrointestinal Bleed, Esophageal Varices, Hepatitis Musculoskeletal: Yes (OSTEOARTHRITIS, BULGING DISCS) Arthritis, Chronic Back Pain Endocrine: Yes (partial thyroidectomy) Diabetes, Insulin dep, Hypothyroidsim HEENT: Yes (GLASSES, UPPER DENTURES) Glaucoma Loss of Vision: Bilateral Cancer: Yes Breast Did You Recieve Any Treatments: Yes What Type of Treatment Did You: Radiation, Surgical Intervention Psychosocial: No Integumentary: No Blood Disorders: Yes (IRON DEFFICIENCY ANEMIA-GETS IRON INFUSIONS) Adverse Reaction/Blood Tranf: No (HAS HAD BLOOD WITH NO REACTION) (GUSTABO CAR) Family Medical History Hypertension G8 BROTHER Not obtainable due to adoption 19 FATHER Heart Disease, Hypertension ADDITIONAL PAST SURGICAL HISTORY -ZENKER'S DIVERTICULUM SURGERY X 2 -ABDOMINAL HERNIA REPAIR WITH MESH -MESH REMOVAL AND LYSIS OF ADHESIONS -HYST/BSO -LOOP RECORDER -PORT LEFT CHEST -LEFT BREAST LUMPECTOMY -CARDIAC CATH WITH STENT X 1 TO RCA 2009 -PORT LEFT CHEST -RIGHT SHOULDER REPLACEMENT -RENAL ARTERY STENOSIS WITH STENT 2013 (GUSTABO CAR) Physical Exam Vital Signs - First Documented 06/20/21 17:30 Pulse 95 Resp 20 B/P (MAP) 150/98 (115) Pulse Ox 97 O2 Delivery Room Air (ELODIA SILVERMAN MD) Capillary Refill : Less Than 3 Seconds (GUSTABO CAR) Height, Weight, BMI Height: 5'4.00" Weight: 216lbs. 4.2oz. 98.411147yg; 27.00 BMI Method:Stated General Appearance: mild distress, other (Chronically ill) HEENT: PERRL/EOMI, pharynx normal Neck: full range of motion, normal inspection Respiratory: lungs clear, normal breath sounds, no respiratory distress, no accessory muscle use Cardiovascular: normal peripheral pulses, regular rate, rhythm Peripheral Pulses: 2+ Dorsalis Pedis (R), 2+ Left Dors-Pedis (L), 2+ Radial Pulses (R), 2+ Radial Pulses (L) Gastrointestinal: normal bowel sounds, non tender, soft, no organomegaly Extremities: normal range of motion, non-tender, no pedal edema, normal capillary refill Neurologic/Psychiatric: alert, oriented x 3, other (Tearful, endorsing hopelessness, anhedonia, passive suicidal ideations without plan or action. ) Behavior/Eye Contact: cooperative, good eye contact, normal speech Thoughts/Hallucinations: normal thought pattern, no apparent hallucination Skin: other (3 x 5cm skin tear in stage of healing with beefy red granulomatous tissue covered with a Telfa dressing on the left lateral tibia) (GUSTABO CAR) Progress/Results/Core Measures Results/Orders Lab Results Laboratory Tests Test 06/20/21 17:51 06/20/21 18:10 06/20/21 18:18 Range/Units Influenza Type A (RT-PCR) Not Detected Not Detecte Influenza Type B (RT-PCR) Not Detected Not Detecte SARS-CoV-2 RNA (RT-PCR) Not Detected Not Detecte White Blood Count 6.3 4.3-11.0 10^3/uL Red Blood Count 3.71 L 3.80-5.11 10^6/uL Hemoglobin 10.8 L 11.5-16.0 g/dL Hematocrit 34 L 35-52 % Mean Corpuscular Volume 92 80-99 fL Mean Corpuscular Hemoglobin 29 25-34 pg Mean Corpuscular Hemoglobin Concent 32 32-36 g/dL Red Cell Distribution Width 13.8 10.0-14.5 % Platelet Count 219 130-400 10^3/uL Mean Platelet Volume 9.6 9.0-12.2 fL Immature Granulocyte % (Auto) 0 % Neutrophils (%) (Auto) 55 42-75 % Lymphocytes (%) (Auto) 32 12-44 % Monocytes (%) (Auto) 9 0-12 % Eosinophils (%) (Auto) 2 0-10 % Basophils (%) (Auto) 1 0-10 % Neutrophils # (Auto) 3.5 1.8-7.8 10^3/uL Lymphocytes # (Auto) 2.0 1.0-4.0 10^3/uL Monocytes # (Auto) 0.5 0.0-1.0 10^3/uL Eosinophils # (Auto) 0.2 0.0-0.3 10^3/uL Basophils # (Auto) 0.1 0.0-0.1 10^3/uL Immature Granulocyte # (Auto) 0.0 0.0-0.1 10^3/uL Sodium Level 143 135-145 MMOL/L Potassium Level 3.9 3.6-5.0 MMOL/L Chloride Level 115 H 98-107 MMOL/L Carbon Dioxide Level 19 L 21-32 MMOL/L Anion Gap 9 5-14 MMOL/L Blood Urea Nitrogen 16 7-18 MG/DL Creatinine 1.32 H 0.60-1.30 MG/DL Estimat Glomerular Filtration Rate 40 BUN/Creatinine Ratio 12 Glucose Level 178 H 70-105 MG/DL Calcium Level 8.2 L 8.5-10.1 MG/DL Corrected Calcium 8.8 8.5-10.1 MG/DL Total Bilirubin 0.2 0.1-1.0 MG/DL Aspartate Amino Transf (AST/SGOT) 10 5-34 U/L Alanine Aminotransferase (ALT/SGPT) 11 0-55 U/L Alkaline Phosphatase 103 40-136 U/L Total Protein 5.8 L 6.4-8.2 GM/DL Albumin 3.3 3.2-4.5 GM/DL TSH [facility] Testing 1.17 0.35-4.94 UIU/ML Salicylates Level < 5.0 L 5.0-20.0 MG/DL Acetaminophen Level < 10 L 10-30 UG/ML Serum Alcohol < 10 <10 MG/DL Urine Color YELLOW Urine Clarity CLEAR Urine pH 6.0 5-9 Urine Specific Yermo >=1.030 1.016-1.022 Urine Protein 1+ H NEGATIVE Urine Glucose (UA) NEGATIVE NEGATIVE Urine Ketones NEGATIVE NEGATIVE Urine Nitrite NEGATIVE NEGATIVE Urine Bilirubin NEGATIVE NEGATIVE Urine Urobilinogen 0.2 < = 1.0 MG/DL Urine Leukocyte Esterase TRACE H NEGATIVE Urine RBC (Auto) NEGATIVE NEGATIVE Urine RBC NONE /HPF Urine WBC 2-5 /HPF Urine Crystals PRESENT H /LPF Urine Amorphous Sediment RARE TATA URATES H /LPF Urine Bacteria TRACE /HPF Urine Casts PRESENT /LPF Urine Hyaline Casts 10-25 H /LPF Urine Mucus NEGATIVE /LPF Urine Culture Indicated NO Urine Opiates Screen POSITIVE H NEGATIVE Urine Oxycodone Screen NEGATIVE NEGATIVE Urine Methadone Screen NEGATIVE NEGATIVE Urine Propoxyphene Screen NEGATIVE NEGATIVE Urine Barbiturates Screen POSITIVE H NEGATIVE Ur Tricyclic Antidepressants Screen NEGATIVE NEGATIVE Urine Phencyclidine Screen NEGATIVE NEGATIVE Urine Amphetamines Screen NEGATIVE NEGATIVE Urine Methamphetamines Screen NEGATIVE NEGATIVE Urine Benzodiazepines Screen POSITIVE H NEGATIVE Urine Cocaine Screen NEGATIVE NEGATIVE Urine Cannabinoids Screen NEGATIVE NEGATIVE (ELODIA SILVERMAN MD) My Orders Orders - ELODIA SILVERMAN MD Lactated Ringers (Lr 1000 Ml Iv Solution (06/20/21 19:15) Hydrocodone/Apap 5/325 Tablet (Lortab 5 (06/20/21 19:30) Ondansetron Injection (Zofran Injectio (06/20/21 22:15) General/Regular (06/20/21 Dinner) Hydrocodone/Apap 5/325 Tablet (Lortab 5 (06/21/21 01:15) Ropinirole Tablet (Requip Tablet) (06/21/21 01:30) Ropinirole Tablet (Requip Tablet) (06/21/21 01:58) (ELODIA SILVERMAN MD) Medications Given in ED (ELODIA SILVERMAN MD) Vital Signs/I&O (ELODIA SILVERMAN MD) Blood Pressure Mean: 115 Progress Progress Note : Time: 18:09 Progress Note Patient is making overt suicidal ideations without endorsing a plan or any action on it. Plan to go ahead and get labs and try and confirm that she has not overdosed by an observation period in the ER. We did discuss with her potentially using ketamine to help with her back pain since she is probably t olerant with her opiates and the second benefit that it may help her with her active suicidal ideation and resistant depression. Risks, benefits and alternatives were discussed. (GUSTABO CAR) Progress Note #1: Time: 19:32 Progress Note Patient has been medically cleared. She seems a bit dry with a slight bump in her creatinine and casts in her urine. She has received a normal saline bolus of 500 mL. I will also give her a liter of LR. I have contacted the behavioral health screener and her chart will be faxed. Patient is adamant that she does not need a mental health screening and she just needs to go home and rest. I informed her that her prior comments obligate me to obtain a screen for her safety. Progress Note #2: Time: 04:10 Progress Note The behavioral health screener was not able to establish an acceptable safety plan for the patient and therefore recommended admission. Patient would not voluntarily consent to a psychiatric inpatient facility. Involuntary admission was then pursued. Patient became belligerent and very angry. She did require brief physical restraint. Law enforcement was called and local hospital security was used to detain the patient. She was grabbing at her port access in attempt to pull it out and was forcefully grabbing at staff. Her pain was treated with hydrocodone. Her restless legs were treated with Requip. She ultimately was transferred by law enforcement to [facility] in [place], [place]. 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 Transfer Time: 04:10 Transfer Facility: [facility] in [place], [place] Method of Transfer: Law Enforcement (ELODIA SILEVRMAN MD) Departure-Patient Inst. Referrals: [facility] [place] ([place]P) Primary Care Physician JAVIER MOSS (Family) Primary Care Physician GUSTABO CAR Jun 20, 2021 18:05 ELODIA SILVERMAN MD Jun 20, 2021 19:35
[2021-06-20 18:20] LABS: BASOPHILS # (AUTO) 0.1 10^3/uL (0.0-0.1); BASOPHILS % (AUTO) 1 % (0-10); EOSINOPHILS # (AUTO) 0.2 10^3/uL (0.0-0.3); EOSINOPHILS % (AUTO) 2 % (0-10); HEMATOCRIT 34 % (35-52); HEMOGLOBIN 10.8 g/dL (11.5-16.0); LYMPHOCYTES % (AUTO) 32 % (12-44); MEAN CORPUSCULAR HEMOGLOBIN 29 pg (25-34); MEAN CORPUSCULAR HGB CONC 32 g/dL (32-36); MEAN CORPUSCULAR VOLUME 92 fL (80-99); MEAN PLATELET VOLUME 9.6 fL (9.0-12.2); MONOCYTES # (AUTO) 0.5 10^3/uL (0.0-1.0); MONOCYTES % (AUTO) 9 % (0-12); NEUTROPHILS # (AUTO) 3.5 10^3/uL (1.8-7.8); NEUTROPHILS % (AUTO) 55 % (42-75); PLATELET COUNT 219 10^3/uL (130-400); WHITE BLOOD COUNT 6.3 10^3/uL (4.3-11.0)
[2021-06-20 18:37] LABS: ALBUMIN 3.3 GM/DL (3.2-4.5); CHLORIDE 115 MMOL/L (98-107); POTASSIUM 3.9 MMOL/L (3.6-5.0); SODIUM 143 MMOL/L (135-145)
[2021-06-20 18:38] LABS: CALCIUM 8.2 MG/DL (8.5-10.1)
[2021-06-20 18:39] LABS: GLUCOSE 178 MG/DL (70-105)
[2021-06-20 18:40] LABS: CARBON DIOXIDE 19 MMOL/L (21-32); TOTAL PROTEIN 5.8 GM/DL (6.4-8.2)
[2021-06-20 18:41] LABS: BILIRUBIN,TOTAL 0.2 MG/DL (0.1-1.0)
[2021-06-20 18:43] LABS: ALKALINE PHOSPHATASE 103 U/L (40-136); CREATININE SERUM 1.32 MG/DL (0.60-1.30); GFR ESTIMATED 40
[2021-06-20 18:44] LABS: BUN/CREATININE RATIO 12
[2021-06-20 18:45] LABS: ACETAMINOPHEN < 10 UG/ML (10-30)
[2021-06-20 18:45] LABS: AMPHETAMINE SCREEN, URINE NEGATIVE (NEGATIVE); BARBITURATE SCREEN URINE POSITIVE (NEGATIVE); BENZODIAZEPINES SCREEN URINE POSITIVE (NEGATIVE); BILIRUBIN,URINE NEGATIVE (NEGATIVE); CANNABINOID SCREEN, URINE NEGATIVE (NEGATIVE); CLARITY,URINE CLEAR; COCAINE SCREEN URINE NEGATIVE (NEGATIVE); COLOR,URINE YELLOW; GLUCOSE, URINE (UA) NEGATIVE (NEGATIVE); KETONES,URINE NEGATIVE (NEGATIVE); LEUKOCYTE ESTERASE ,URINE TRACE (NEGATIVE); METHADONE STAT NEGATIVE (NEGATIVE); METHAMPHETAMINE SCREEN URINE S NEGATIVE (NEGATIVE); NITRITE,URINE NEGATIVE (NEGATIVE); OPIATE SCREEN URINE POSITIVE (NEGATIVE); OXYCODONE STAT NEGATIVE (NEGATIVE); PROPOXYPHENE STAT NEGATIVE (NEGATIVE); PROTEIN,URINE 1+ (NEGATIVE); TRICYCLIC ANTIDEPRESSANTS SCRE NEGATIVE (NEGATIVE)
[2021-06-20 18:46] LABS: ALANINE AMINOTRANSFERASE 11 U/L (0-55); SALICYLATE < 5.0 MG/DL (5.0-20.0)
[2021-06-20 18:59] LABS: BACTERIA,URINE TRACE /HPF
[2021-06-20 19:00] LABS: AMORPHOUS SEDIMENT,UR RARE AMOR URATES /LPF
[2021-06-20] MEDS ORDERED: LACTATED RINGERS 1,000 ML IV ONE (19:15)
[2021-06-20] MEDS ORDERED: HYDROcodone/APAP 5 MG/325 MG (LORTAB) TAB PO ONE (19:30)
[2021-06-20] MEDS ORDERED: ONDANSETRON 4 MG/2 ML (SDV) Z0FRAN IVP ONE (22:15)
[2021-06-21] MEDS ORDERED: HYDROcodone/APAP 5 MG/325 MG (LORTAB) TAB PO ONE (01:15)
[2021-06-21] MEDS ORDERED: rOPINIRole 1 MG (REQUIP) TABLET PO ONE (01:30)
[2021-06-21] MEDS ORDERED: rOPINIRole 1 MG (REQUIP) TABLET PO STA (01:58)
== END 2021-06-21 04:10 | disposition short-term general hospital (02) ==
LOC: EDUNIT# 17:27 → ER 17:28
DX: R45.851 Suicidal ideations (principal); F32.9 Major depressive disorder, single episode, unspecified; I25.2 Old myocardial infarction; I10 Essential (primary) hypertension; K21.9 Gastro-esophageal reflux disease without esophagitis; I25.10 Atherosclerotic heart disease of native coronary artery without angina pectoris; E78.00 Pure hypercholesterolemia, unspecified; G89.29 Other chronic pain; M54.9 Dorsalgia, unspecified; E11.9 Type 2 diabetes mellitus without complications; Z86.14 Personal history of Methicillin resistant Staphylococcus aureus infection; Z20.822 Contact with and (suspected) exposure to COVID-19; Z79.82 Long term (current) use of aspirin; Z79.899 Other long term (current) drug therapy; Z79.891 Long term (current) use of opiate analgesic; Z79.52 Long term (current) use of systemic steroids
CPT/HCPCS: 80053; 80306; 81000; 84443; 85025; 87636; 93041; G0480 ×3; 36415; 80320; 80329; 93005

== ENCOUNTER → 2021-08-11 | Outpatient (CLI) | payer MEDICARE ==
[2021-08-11 12:53] LABS: BASOPHILS # (AUTO) 0.1 10^3/uL (0.0-0.1); BASOPHILS % (AUTO) 1 % (0-10); EOSINOPHILS # (AUTO) 0.2 10^3/uL (0.0-0.3); EOSINOPHILS % (AUTO) 3 % (0-10); HEMATOCRIT 39 % (35-52); HEMOGLOBIN 12.5 g/dL (11.5-16.0); LYMPHOCYTES # (AUTO) 1.8 10^3/uL (1.0-4.0); LYMPHOCYTES % (AUTO) 31 % (12-44); MEAN CORPUSCULAR HEMOGLOBIN 29 pg (25-34); MEAN CORPUSCULAR HGB CONC 32 g/dL (32-36); MEAN CORPUSCULAR VOLUME 91 fL (80-99); MEAN PLATELET VOLUME 9.7 fL (9.0-12.2); MONOCYTES # (AUTO) 0.5 10^3/uL (0.0-1.0); MONOCYTES % (AUTO) 8 % (0-12); NEUTROPHILS # (AUTO) 3.3 10^3/uL (1.8-7.8); NEUTROPHILS % (AUTO) 56 % (42-75); PLATELET COUNT 277 10^3/uL (130-400); WHITE BLOOD COUNT 5.8 10^3/uL (4.3-11.0)
[2021-08-11 13:22] LABS: ALBUMIN 3.8 GM/DL (3.2-4.5); BILIRUBIN,TOTAL 0.2 MG/DL (0.1-1.0); CALCIUM 8.7 MG/DL (8.5-10.1); CREATININE SERUM 1.28 MG/DL (0.60-1.30); POTASSIUM 4.2 MMOL/L (3.6-5.0); TOTAL PROTEIN 6.6 GM/DL (6.4-8.2)
== END ==
LOC: LAB 12:28
PROVIDERS: ATTEND Internal Medicine Rheumatology
DX: Z79.899 Other long term (current) drug therapy (principal)
CPT/HCPCS: 36415; 80053; 85025

== ENCOUNTER 2021-10-15 17:46 | Emergency (ER) | payer OTHER, MEDICARE ==
[~2021-10-15] VITALS: Ht 162 cm; Wt 63.5 kg
[~2021-10-15 17:46] MED LIST changes: -DULO60CA6 PO; +DULO60CA7 PO
--- OUTSIDE RECORDS SUMMARY | 2021-10-15 17:50 | XMS REPORT | Clinical Summary ---
Author Author [facility] Organization [facility] Address Unknown Phone Unavailable Care Team Providers Care Personnel Supervisor Name Role Phone No Pcp, Na Unavailable Unavailable Gustavo Moulton PA-C PCP Source Comments Some departments are not documenting in the electronic medical record. If you d o not see the information that you expected, contact Release of Information in merged with [facility] Information Management department at [phone] for further assistan ce in locating additional records.[facility] Allergies Comments Active Allergy Reactions Severity Noted Date Carbamazepine RASH Medium 03/09/2019 Cephalothin RASH Medium 03/09/2019 Penicillin G RASH Medium 03/09/2019 Penicillins RASH Medium 12/22/2019 Clopidogrel RASH Medium 03/09/2019 Carisoprodol RASH Medium 03/09/2019 Medications End Date Status Medication Sig Dispensed Refills Start Date Active amLODIPine (NORVASC) 10 6 mg tablet 9 Active butalbital-acetaminophen- as Needed. 0 10/22 caffeine (FIORICET WITH 9 CODEINE) 10-112-56-30 mg capsule Active folic acid (FOLVITE) 1 [...] daily. Active leflunomide (ARAVA) 10 mg Take one 90 tablet 0 tablet tablet by 1 mouth daily. Active Problems Problem Noted Date History of pancreatitis 02/03/2021 Overview: Formatting of this note might be differ ent from the original. I recommend she follow up with her PCP and/or GI specialist for this history. History of heart attack 02/03/2021 Overview: Formatting of this note might be differ ent from the original. I recommend she follow up with her PCP and financial assistance specialist for this history. H/O: stroke 02/03/2021 [...] Hypogammaglobulinemia 12/29/2019 Overview: Formatting of this note is different fr om the original. 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 Pain and enlargement of breast of [facility] breast Procedure: Left lumpectomy, 11/18/2008 History: Ms. [...] Imaging: Mammogram: - Screening mammograms 06/20/2018 ([facility]) showed heterogeneously dense breast tissue. [...] Ultrasound: - Right breast ultrasound 08/14/2018 ([facility]) no abnormal findings. BIRADS 1. MRI: - Breast MRI 03/03/2019 ([facility]): Mild background glandularity and background enhancement, right [...] renal disease, HTN, hyperlipidemia, Hx of "silent" MO, hx of GI bleed in 2002, hx [...] Description Date Type Specialty Reuben Berg MD 08/11/2021 Refill Rheumatology from Last 3 Months Surgical History [...] 2008 left DCIS Back pain Heart disease MO (myocardial infarction) (HCC) hx of "silent" MO, date unknown Stage 2 chronic kidney disease [...] more drinks on one Not asked occasion? Comment: Not asked Sex Assigned at Date Recorded Female 08/23/2021 10:34 AM CDT Obstetrics History Term Pre Abrt (TAB) (SAB) [...] SCREENING/MONITORING PNEUMONIA (PPSV23) 2013 VACCINE (1 of - PPSV23) BREAST CANCER SCREENING 12/21/2020 12/22/2019 INFLUENZA VACCINE 05/21/2021 10/20/2018 SHINGLES RECOMBINANT Completed 11/17/2019, VACCINE 07/29/2019 HEPATITIS C SCREENING Completed 10/31/2020 Results Not on filefrom Last 3 Months Insurance Type Payer Benefit Subscriber ID Effective Phone Address Plan / Dates Group Medicare MEDICARE MEDICARE [id number] 2002-P [phone] [address] [place] [address] PPO [facility] AARP [id number] 2018-P [address] [place] [address] 3 [phone] Advance 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
--- OUTSIDE RECORDS SUMMARY | 2021-10-15 17:50 | XMS REPORT ---
Author Author KEO CRUZ DIANA Organization [facility] Address [address] [address] Care Team Providers Care Grocery Team Member Name Role Phone Gustavo Landaverde Practitioner Canelo Green Practitioner Gunner Garcia Practitioner Functional Status No Results Allergies Name Onset Date Reaction Severity CEPHALEXIN (Allergy) Wed Jun 21 08:00:00 EDT 2020 Mild KETOROLAC (Allergy) Wed Jun 21 08:00:00 EDT 2020 Mild PROCHLORPERAZINE (Allergy) SatJun 21 08:00:00 EDT 2020 Mild CARBAMATE (Allergy) Wed Jun 21 08:00:00 EDT 2020 Mild CARISOPRODOL (Allergy) Wed Sep 08:00:00 EDT 2020 Mild PENICILLIN (Allergy) Wed Jun 21 08:00:00 EDT 2020 Mild CLOPIDOGREL (Allergy) SatJun 21 08:00:00 EDT 2020 Severe Medications Medication Directions Start Date End Date amLODIPine Besylate 10 MG TAB Wed Jun 08 00:00:00 EDT 2020 Aspirin 81 MG ECT Wed Jun 08 00:00:00 EDT 2020 Folic Acid 1 MG TAB Wed Sep 08 00:00:0 0 EDT 2020 Lipitor 10 MG TAB Wed Sep 08 00:00:00 EDT 2020 Pantoprazole Sodium 40 MG TCP Wed Sep 08 00:00:00 EDT 2020 Plaquenil 200 MG TAB Wed Sep 08 00:00: 00 EDT 2020 Topiramate 25 MG TAB Wed Sep 08 00:00: 00 EDT 2020 Toprol XL 100 MG TER Wed Jun 08 00:00: 00 EDT 2020 Requip 1 MG TAB Wed Sep 08 00:00:00 ED T 2020 Requip 1 MG TAB Wed Sep 08 00:00:00 ED T 2020 Problems Active Concerns* Major depressive disorder, recurrent severe without psychotic features* Code: 55039933 * Start Date: null * Text: * Coronary artery disease, unspecified vessel or lesion type, unspecified whether angina present, unspecified whether [place] or transplanted heart* Code: [id number] * Start Date: null * Text: * Rheumatoid arthritis, involving unspecified site, unspecified whether rheumatoid factor present* Code: [id number] * Start Date: null * Text: * Chronic gastroesophageal reflux disease* Code: [id number] * Start Date: null * Text: * HTN (hypertension) with goal to be determined* Code: [id number] * Start Date: null * Text: * Migraine without status migrainosus, not intractable, unspecified migraine type* Code: [id number] * Start Date: null * Text: Procedures No Known Procedures Lab Results No Known Laboratory Results Vital Signs Vital Sign Measurement Date Temperature 97.5 [DEGF] SatJun 21 08:32:0 0 EDT 2020 Temperature 36.4 DENZEL SatJun 21 08:32:0 0 EDT 2020 Heart Rate 122 /MIN SatJun 21 08:32:00 EDT 2020 Respiration 20 /MIN SatJun 21 08:32:0 0 EDT 2020 SpO2 94 % SatJun 21 08:32:00 EDT 2020 Systolic 186 MM[HG] SatJun 21 08:32:00 EDT 2020 Diastolic 103 MM[HG] SatJun 21 08:32:00 EDT 2020 BP Position 2 Position SatJun 21 08:32:0 0 EDT 2020 Height 5 4 ft SatJun 21 08:32:00 EDT 2020 Height 64 in SatJun 21 08:32:00 EDT 2020 Height 162.6 cm SatJun 21 08:32:00 EDT 2020 Weight Lbs 141 lbs SatJun 21 08:32:00 EDT 2020 Weight Kgs 64.1 KG SatJun 21 08:32:00 EDT 2020 BMI 24.2 SatJun 21 08:32:00 EDT 2020 Pain Scale 9 SatJun 21 14:27:00 EDT 2020 Pain Scale 10 SatJun 21 14:38:00 EDT 2020 Heart Rate 123 /MIN SatJun 21 15:40:00 EDT 2020 Systolic 199 MM[HG] SatJun 21 15:40:00 EDT 2020 Diastolic 114 MM[HG] SatJun 21 15:40:00 EDT 2020 BP Position 1 Position Wed Sep 01 15:40:0 0 EDT 2020 Temperature 97.5 [DEGF] Wed Sep 01 18:06:0 0 EDT 2020 Temperature 36.4 DENZEL Wed Sep 01 18:06:0 0 EDT 2020 Heart Rate 93 /MIN Wed Sep 01 18:06:00 EDT 2020 Respiration 15 /MIN Wed Sep 01 18:06:0 0 EDT 2020 SpO2 97 % Wed Sep 01 18:06:00 EDT 2020 Systolic 153 MM[HG] Wed Sep 01 18:06:00 EDT 2020 Diastolic 88 MM[HG] Wed Sep 01 18:06:00 EDT 2020 BP Position 2 Position Wed Sep 01 18:06:0 0 EDT 2020 Pain Scale 10 Wed Sep 01 21:04:00 EDT 2020 Pain Scale NR Wed Sep 01 22:20:00 EDT 2020 Pain Scale 8 Wed Sep 01 22:30:00 EDT 2020 Pain Scale 9 Mandy Sep 02 02:00:00 EDT 2020 Pain Scale 0 Mandy Sep 02 03:00:00 EDT 2020 Pain Scale 10 Mandy Sep 02 07:33:00 EDT 2020 Temperature 97.2 [DEGF] Mandy Sep 02 09:20:0 0 EDT 2020 Temperature 36.2 DENZEL Mandy Sep 02 09:20:0 0 EDT 2020 Heart Rate 83 /MIN Mandy Sep 02 09:20:00 EDT 2020 Respiration 18 /MIN Mandy Sep 02 09:20:0 0 EDT 2020 SpO2 91 % Mandy Sep 02 09:20:00 EDT 2020 Systolic 162 MM[HG] Mandy Sep 02 09:20:00 EDT 2020 Diastolic 77 MM[HG] Mandy Sep 02 09:20:00 EDT 2020 BP Position 1 Position Mandy Sep 02 09:20:0 0 EDT 2020 Heart Rate 94 /MIN Mandy Sep 02 09:20:00 EDT 2020 Systolic 170 MM[HG] Mandy Sep 02 09:20:00 EDT 2020 Diastolic 91 MM[HG] Mandy Sep 02 09:20:00 EDT 2020 BP Position 2 Position Mandy Sep 02 09:20:0 0 EDT 2020 Heart Rate 104 /MIN Mandy Sep 02 09:20:00 EDT 2020 Systolic 149 MM[HG] Mandy Sep 02 09:20:00 EDT 2020 Diastolic 90 MM[HG] Mandy Sep 02 09:20:00 EDT 2020 BP Position 3 Position Mandy Sep 02 09:20:0 0 EDT 2020 Pain Scale 9 Mandy Sep 02 10:01:00 EDT 2020 Pain Scale 10 Mandy Sep 02 13:00:00 EDT 2020 Temperature 97.2 [DEGF] Mandy Sep 02 17:51:0 0 EDT 2020 Temperature 36.2 DENZEL Mandy Sep 02 17:51:0 0 EDT 2020 Heart Rate 67 /MIN Mandy Sep 02 17:51:00 EDT 2020 Respiration 16 /MIN Mandy Sep 02 17:51:0 0 EDT 2020 SpO2 97 % Mandy Sep 02 17:51:00 EDT 2020 Systolic 151 MM[HG] Mandy Sep 02 17:51:00 EDT 2020 Diastolic 70 MM[HG] Mandy Sep 02 17:51:00 EDT 2020 BP Position 1 Position Mandy Sep 02 17:51:0 0 EDT 2020 Pain Scale 10 Mandy Sep 02 18:32:00 EDT 2020 Pain Scale 8 Mandy Sep 02 22:30:00 EDT 2020 Pain Scale NR Fri Sep 03 08:17:00 EDT 2020 Temperature 97.0 [DEGF] Fri Sep 03 08:25:0 0 EDT 2020 Temperature 36.1 DENZEL Fri Sep 03 08:25:0 0 EDT 2020 Heart Rate 92 /MIN Fri Sep 03 08:25:00 EDT 2020 Respiration 16 /MIN Fri Sep 03 08:25:0 0 EDT 2020 SpO2 93 % Fri Sep 03 08:25:00 EDT 2020 Systolic 175 MM[HG] Fri Sep 03 08:25:00 EDT 2020 Diastolic 89 MM[HG] Fri Sep 03 08:25:00 EDT 2020 BP Position 1 Position Fri Sep 03 08:25:0 0 EDT 2020 Heart Rate 103 /MIN Fri Sep 03 08:25:00 EDT 2020 Systolic 181 MM[HG] Fri Sep 03 08:25:00 EDT 2020 Diastolic 106 MM[HG] Fri Sep 03 08:25:00 EDT 2020 BP Position 2 Position Fri Sep 03 08:25:0 0 EDT 2020 Heart Rate 117 /MIN Fri Sep 03 08:25:00 EDT 2020 Systolic 146 MM[HG] Fri Sep 03 08:25:00 EDT 2020 Diastolic 96 MM[HG] Fri Sep 03 08:25:00 EDT 2020 BP Position 3 Position Fri Sep 03 08:25:0 0 EDT 2020 Temperature 97.0 [DEGF] Fri Sep 03 17:33:0 0 EDT 2020 Temperature 36.1 DENZEL Fri Sep 03 17:33:0 0 EDT 2020 Heart Rate 99 /MIN Fri Sep 03 17:33:00 EDT 2020 Respiration 16 /MIN Fri Sep 03 17:33:0 0 EDT 2020 SpO2 98 % Fri Sep 03 17:33:00 EDT 2020 Systolic 133 MM[HG] Fri Sep 03 17:33:00 EDT 2020 Diastolic 74 MM[HG] Fri Sep 03 17:33:00 EDT 2020 BP Position 2 Position Fri Sep 03 17:33:0 0 EDT 2020 Pain Scale 9 Fri Sep 03 18:40:00 EDT 2020 Pain Scale 9 Fri Sep 03 18:44:00 EDT 2020 Pain Scale 10 Sat Sep 04 01:02:00 EDT 2020 Pain Scale 10 Sat Sep 04 03:15:00 EDT 2020 Temperature 97.9 [DEGF] Sat Sep 04 08:34:0 0 EDT 2020 Temperature 36.6 DENZEL Sat Sep 04 08:34:0 0 EDT 2020 Heart Rate 103 /MIN Sat Sep 04 08:34:00 EDT 2020 Respiration 18 /MIN Sat Sep 04 08:34:0 0 EDT 2020 SpO2 99 % Sat Sep 04 08:34:00 EDT 2020 Systolic 143 MM[HG] Sat Sep 04 08:34:00 EDT 2020 Diastolic 93 MM[HG] Sat Sep 04 08:34:00 EDT 2020 BP Position 2 Position Sat Sep 04 08:34:0 0 EDT 2020 Pain Scale 10 Sat Sep 04 10:10:00 EDT 2020 Pain Scale 7 Sat Sep 04 10:40:00 EDT 2020 Pain Scale 7 Sat Sep 04 16:00:00 EDT 2020 Temperature 97.2 [DEGF] Sat Sep 04 17:35:0 0 EDT 2020 Temperature 36.2 DENZEL Sat Sep 04 17:35:0 0 EDT 2020 Heart Rate 96 /MIN Sat Sep 04 17:35:00 EDT 2020 Respiration 18 /MIN Sat Sep 04 17:35:0 0 EDT 2020 SpO2 98 % Sat Sep 04 17:35:00 EDT 2020 Systolic 129 MM[HG] Sat Sep 04 17:35:00 EDT 2020 Diastolic 81 MM[HG] Sat Sep 04 17:35:00 EDT 2020 BP Position 2 Position Sat Sep 04 17:35:0 0 EDT 2020 Pain Scale 9 Sat Sep 04 18:28:00 EDT 2020 Temperature 97.7 [DEGF] Sun Sep 05 08:28:0 0 EDT 2020 Temperature 36.5 DENZEL Sun Sep 05 08:28:0 0 EDT 2020 Heart Rate 76 /MIN Sun Sep 05 08:28:00 EDT 2020 Respiration 16 /MIN Sun Sep 05 08:28:0 0 EDT 2020 SpO2 96 % Sun Sep 05 08:28:00 EDT 2020 Systolic 148 MM[HG] Sun Sep 05 08:28:00 EDT 2020 Diastolic 70 MM[HG] Sun Sep 05 08:28:00 EDT 2020 BP Position 2 Position Sun Sep 05 08:28:0 0 EDT 2020 Pain Scale 10 Sun Sep 05 08:30:00 EDT 2020 Heart Rate 81 /MIN Sun Sep 05 09:16:00 EDT 2020 Systolic 144 MM[HG] Sun Sep 05 09:16:00 EDT 2020 Diastolic 74 MM[HG] Sun Sep 05 09:16:00 EDT 2020 BP Position 1 Position Sun Sep 05 09:16:0 0 EDT 2020 Heart Rate 92 /MIN Sun Sep 05 09:16:00 EDT 2020 Systolic 132 MM[HG] Sun Sep 05 09:16:00 EDT 2020 Diastolic 80 MM[HG] Sun Sep 05 09:16:00 EDT 2020 BP Position 2 Position Sun Sep 05 09:16:0 0 EDT 2020 Heart Rate 98 /MIN Sun Sep 05 09:16:00 EDT 2020 Systolic 101 MM[HG] Sun Sep 05 09:16:00 EDT 2020 Diastolic 66 MM[HG] Sun Sep 05 09:16:00 EDT 2020 BP Position 3 Position Sun Sep 05 09:16:0 0 EDT 2020 Pain Scale 8 Sun Sep 05 13:25:00 EDT 2020 Temperature 97.7 [DEGF] Sun Sep 05 17:24:0 0 EDT 2020 Temperature 36.5 DENZEL Sun Sep 05 17:24:0 0 EDT 2020 Heart Rate 75 /MIN Sun Sep 05 17:24:00 EDT 2020 Respiration 16 /MIN Sun Sep 05 17:24:0 0 EDT 2020 SpO2 93 % Sun Sep 05 17:24:00 EDT 2020 Systolic 125 MM[HG] Sun Sep 05 17:24:00 EDT 2020 Diastolic 69 MM[HG] Sun Sep 05 17:24:00 EDT 2020 BP Position 1 Position Sun Sep 05 17:24:0 0 EDT 2020 Temperature 97.7 [DEGF] Sun Sep 05 17:24:0 0 EDT 2020 Temperature 36.5 DENZEL Sun Sep 05 17:24:0 0 EDT 2020 Heart Rate 92 /MIN Sun Sep 05 17:24:00 EDT 2020 Respiration 16 /MIN Sun Sep 05 17:24:0 0 EDT 2020 SpO2 93 % Sun Sep 05 17:24:00 EDT 2020 Systolic 124 MM[HG] Sun Sep 05 17:24:00 EDT 2020 Diastolic 77 MM[HG] Sun Sep 05 17:24:00 EDT 2020 BP Position 2 Position Sun Sep 05 17:24:0 0 EDT 2020 Temperature 97.7 [DEGF] Sun Sep 05 17:24:0 0 EDT 2020 Temperature 36.5 DENZEL Sun Sep 05 17:24:0 0 EDT 2020 Heart Rate 96 /MIN Sun Sep 05 17:24:00 EDT 2020 Respiration 16 /MIN Sun Sep 05 17:24:0 0 EDT 2020 SpO2 93 % Sun Sep 05 17:24:00 EDT 2020 Systolic 128 MM[HG] Sun Sep 05 17:24:00 EDT 2020 Diastolic 78 MM[HG] Sun Sep 05 17:24:00 EDT 2020 BP Position 3 Position Sun Sep 05 17:24:0 0 EDT 2020 Pain Scale 10 Sun Sep 05 21:03:00 EDT 2020 Pain Scale NR Sun Sep 05 22:29:00 EDT 2020 Pain Scale 10 Mon Sep 06 02:13:00 EDT 2020 Pain Scale 10 Mon Sep 06 03:15:00 EDT 2020 Pain Scale 10 Mon Sep 06 07:30:00 EDT 2020 Temperature 98.5 [DEGF] Mon Sep 06 08:25:0 0 EDT 2020 Temperature 36.9 DENZEL Mon Sep 06 08:25:0 0 EDT 2020 Heart Rate 76 /MIN [facility] 06 08:25:00 EDT 2020 Respiration 16 /MIN [facility] 06 08:25:0 0 EDT 2020 SpO2 95 % [facility] 06 08:25:00 EDT 2020 Systolic 164 MM[HG] [facility] 06 08:25:00 EDT 2020 Diastolic 84 MM[HG] [facility] 06 08:25:00 EDT 2020 BP Position 1 Position [facility] 06 08:25:0 0 EDT 2020 Temperature 98.5 [DEGF] [facility] 06 08:25:0 0 EDT 2020 Temperature 36.9 DENZEL [facility] 06 08:25:0 0 EDT 2020 Heart Rate 85 /MIN [facility] 06 08:25:00 EDT 2020 Respiration 16 /MIN [facility] 06 08:25:0 0 EDT 2020 SpO2 95 % [facility] 06 08:25:00 EDT 2020 Systolic 168 MM[HG] [facility] 06 08:25:00 EDT 2020 Diastolic 88 MM[HG] [facility] 06 08:25:00 EDT 2020 BP Position 2 Position [facility] 06 08:25:0 0 EDT 2020 Temperature 98.5 [DEGF] [facility] 06 08:25:0 0 EDT 2020 Temperature 36.9 DENZEL [facility] 06 08:25:0 0 EDT 2020 Heart Rate 100 /MIN [facility] 06 08:25:00 EDT 2020 Respiration 16 /MIN [facility] 06 08:25:0 0 EDT 2020 SpO2 95 % [facility] 06 08:25:00 EDT 2020 Systolic 144 MM[HG] [facility] 06 08:25:00 EDT 2020 Diastolic 83 MM[HG] [facility] 06 08:25:00 EDT 2020 BP Position 3 Position [facility] 06 08:25:0 0 EDT 2020 Pain Scale 10 [facility] 06 15:03:00 EDT 2020 Vitals Refused Y [facility] 06 19:1 3:00 EDT 2020 Pain Scale 10 [facility] 06 21:24:00 EDT 2020 Pain Scale NR [facility] 06 22:30:00 EDT 2020 Pain Scale 10 [facility] 07 03:25:00 EDT 2020 Temperature 97.2 [DEGF] [facility] 07 09:18:0 0 EDT 2020 Temperature 36.2 DENZEL Tue Sep 07 09:18:0 0 EDT 2020 Heart Rate 90 /MIN Tue Sep 07 09:18:00 EDT 2020 Respiration 16 /MIN Tue Sep 07 09:18:0 0 EDT 2020 SpO2 94 % Tue Sep 07 09:18:00 EDT 2020 Systolic 123 MM[HG] Tue Sep 07 09:18:00 EDT 2020 Diastolic 68 MM[HG] Tue Sep 07 09:18:00 EDT 2020 BP Position 2 Position Tue Sep 07 09:18:0 0 EDT 2020 Pain Scale 10 Tue Sep 07 09:34:00 EDT 2020 Pain Scale 10 Tue Sep 07 15:34:00 EDT 2020 Vitals Refused Y Tue Sep 07 17:3 0:00 EDT 2020 Pain Scale NR Tue Sep 07 22:47:00 EDT 2020 Pain Scale NR Tue Sep 07 22:47:00 EDT 2020 Pain Scale NR Tue Sep 07 22:47:00 EDT 2020 Pain Scale NR Tue Sep 07 22:48:00 EDT 2020 Pain Scale NR Tue Sep 07 22:48:00 EDT 2020 Pain Scale NR Tue Sep 07 22:49:00 EDT 2020 Pain Scale NR Tue Sep 07 22:49:00 EDT 2020 Pain Scale NR Tue Sep 07 22:49:00 EDT 2020 Pain Scale NR Tue Sep 07 22:50:00 EDT 2020 Pain Scale NR Tue Sep 07 22:50:00 EDT 2020 Pain Scale NR Tue Sep 07 22:50:00 EDT 2020 Pain Scale NR Tue Sep 07 22:50:00 EDT 2020 Encounters No Known Encounters Immunizations No Known Immunizations
[2021-10-15 18:05] VITALS: BP 185/90
--- NOTE | 2021-10-15 18:06 | ED General ---
General Stated Complaint: R WRIST PAIN Source of Information: Patient Exam Limitations: No Limitations (JARED ODELL APRN) History of Present Illness Date Seen by Provider: Oct 15, 2021 Time Seen by Provider: 18:04 Initial Comments To ER with reports that she tripped and fell in [employer] parking lot landed on the right wrist and now has pain and deformity to the right wrist. No other injury. No open wounds. Timing/Duration: 1-2 Days Severity: Moderate Associated Systoms: Denies Symptoms (JARED ODELL APRN) Allergies and Home Medications Allergies Coded Allergies: clopidogrel (Verified Allergy, Severe, BLOOD CLOTS, 11/27/18) Penicillins (Verified Allergy, Mild, RASH, 11/27/18) carisoprodol (Verified Allergy, Mild, RASH, 11/27/18) cephalexin (Verified Allergy, Mild, RASH, 11/27/18) ketorolac (Verified Allergy, Mild, RASH, 11/27/18) prochlorperazine (Verified Allergy, Mild, RASH, 11/27/18) Carbamates (Verified Allergy, Unknown, Rash, 05/28/19) Patient Home Medication List Home Medication List Reviewed: Yes (JARED ODELL APRN) Albuterol Sulfate (Albuterol Sulfate) 2.5 Mg/3 Ml Vial.neb, 2 PUFF INH Q4H PRN for SHORTNESS OF BREATH Prescribed by: DASIA FRANKLIN on 11/25/20 1101 Amlodipine Besylate (Amlodipine Besylate) 10 Mg Tablet, 10 MG PO DAILY, (Reported) Entered as Reported by: ETHEL JONES on 11/14/20 1527 Aspirin (Aspirin EC) 81 Mg Tablet.dr, 81 MG PO DAILY Prescribed by: OLIVE ISAAC on 11/21/20 1010 Atorvastatin Calcium (Atorvastatin Calcium) 40 Mg Tablet, 40 MG PO HS, (Reported) Entered as Reported by: REMA LIZAMA on 09/03/19 1408 Cholecalciferol (Vitamin D3) (Vitamin D3) 50 Mcg Tablet, 50 MCG PO DAILY, (Reported) Entered as Reported by: ETHEL JONES on 11/14/20 1527 Codeine/Butalbital/ASA/Caffein (SEK-Lvrnfx-Fhen-Cod #3 Capsule) 1 Each Capsule, 1 EACH PO DAILY PRN for MIGRAINE, (Reported) Entered as Reported by: ETHEL JONES on 11/14/20 1527 Duloxetine HCl (Cymbalta) 30 Mg Capsule.dr, 30 MG PO DAILY, (Reported) Entered as Reported by: BARRETT DANIELLE on 11/27/18 0949 Folic Acid (Folic Acid) 1 Mg Tablet, 1 MG PO DAILY, (Reported) Entered as Reported by: NAOMY ESTRADA on 05/28/19 1246 Furosemide (Furosemide) 40 Mg Tablet, 40 MG PO DAILY PRN for EDEMA Prescribed by: OLIVE ISAAC on 11/21/20 1010 Hydrocodone/Acetaminophen (Hydrocodone-Acetamin 5-325 mg) 1 Each Tablet, 1-2 EACH PO Q4-6 HOURS PRN for PAIN Prescribed by: RPAHAEL DUNCAN on 11/26/202106 Hydroxychloroquine Sulfate (Hydroxychloroquine Sulfate) 200 Mg Tablet, 200 MG PO BID, (Reported) Entered as Reported by: NAOMY ESTRADA on 05/28/19 1252 Hyoscyamine Sulfate (Levsin-Sl) 0.125 Mg Tab.subl, 0.25 MG SL Q4H Prescribed by: RAPHAEL DUNCAN on 11/26/202106 Levetiracetam (Levetiracetam) 500 Mg Tablet, 500 MG PO BID Prescribed by: OLIVE ISAAC on 11/21/20 1010 Metoprolol Succinate (Metoprolol Succinate) 100 Mg Tab.er.24h, 100 MG PO DAILY, (Reported) Entered as Reported by: REMA LIZAMA on 09/03/19 1408 Nitrofurantoin Macrocrystal (Nitrofurantoin) 100 Mg Capsule, 100 MG PO BID Prescribed by: ARGELIA CA on 02/06/21 1309 Ondansetron (Ondansetron Odt) 4 Mg Tab.rapdis, 4 MG PO Q4H PRN for NAUSEA-1ST LINE Prescribed by: DASIA FRANKLIN on 11/25/20 1101 Ondansetron (Ondansetron Odt) 8 Mg Tab.rapdis, 8 MG PO Q6H Prescribed by: RAPHAEL DUNCAN on 11/26/202106 Oxycodone HCl/Acetaminophen (Percocet 7.5-325 mg Tablet) 1 Each Tablet, 1 TAB PO Q4H PRN for PAIN-MODERATE Prescribed by: GUSTABO CARRINGTON on 05/10/21 1705 Pantoprazole Sodium (Pantoprazole Sodium) 40 Mg Tablet.dr, 40 MG PO DAILY, (Reported) Entered as Reported by: BARRETT DANIELLE on 11/27/18 0949 Pantoprazole Sodium (Protonix) 40 Mg Tablet.dr, 40 MG PO DAILY Prescribed by: RAPHAEL DUNCAN on 11/26/202106 Prednisone (Prednisone) 20 Mg Tab, 40 MG PO DAILY Prescribed by: JARED ODELL on 03/26/21 1523 Sulfamethoxazole/Trimethoprim (Bactrim Ds Tablet) 1 Each Tablet, 7 EACH PO BID Prescribed by: GUSTABO CARRINGTON on 05/10/21 0652 Topiramate (Topiramate) 50 Mg Tablet, 75 MG PO BID, (Reported) Entered as Reported by: BARRETT DANIELLE on 11/27/18 0949 Review of Systems Review of Systems Constitutional: see HPI EENTM: see HPI Respiratory: no symptoms reported Cardiovascular: no symptoms reported Genitourinary: no symptoms reported Musculoskeletal: see HPI Skin: no symptoms reported Psychiatric/Neurological: No Symptoms Reported Hematologic/Lymphatic: No Symptoms Reported (JARED ODELL APRN) Past Orxvltx-Qwsldk-Wmihmi Hx Immunizations Up To Date Tetanus Booster (TDap): Unknown First/Initial COVID19 Vaccinat: 03/10 (JARED ODELL APRN) Seasonal Allergies Seasonal Allergies: No (JARED ODELL APRN) Past Medical History Surgery/Hospitalization HX: [place] HX, STROKE HX, PANCREATITIS, PNEUMONIA HX, COVID HX Surgeries: Yes (R CTR, espohageal ligation x2, Hernia, L RCR, L TKR, laparotomy, MRSA infec) Abdominal, Breast, Cardiac, Coronary Stent, Hysterectomy, Joint Replacement, Oophorectomy, Orthopedic, Thyroidectomy Respiratory: Yes (COVID-19 November 07, 2020-ADMITTED WITH PNEUMONIA) Pneumonia Currently Using CPAP: No Currently Using BIPAP: No Cardiac: Yes (HX HEART CATH-STENT;MILD BILAT CAROTID STENOSIS;DVT L ARM DUE TO PICC LINE) Coronary Artery Disease, Deep Vein Thrombosis, Heart Attack, High Cholesterol, Hypertension, Peripheral Vascular Neurological: Yes Headaches /Migraines, Neuropathy [employer] History: Hysterectomy, Menopausal Sexually Transmitted Disease: No HIV/AIDS: No Genitourinary: Yes (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,STAGE 2-KIDNEY DISEASE;DIABETIC NEPHROPA ) Bladder Infection, Renal Failure, Dialysis Gastrointestinal: Yes (HX GI BLEED, zenkers syndrome-chokes easily, hx hep A;LIVER INJURY/TRAUMA) Abdominal Hernia, Gastroesophageal Reflux, Gastrointestinal Bleed, Esophageal Varices, Hepatitis Musculoskeletal: Yes (OSTEOARTHRITIS, BULGING DISCS) Arthritis, Chronic Back Pain Endocrine: Yes (partial thyroidectomy) Diabetes, Insulin dep, Hypothyroidsim HEENT: Yes (GLASSES, UPPER DENTURES) Glaucoma Loss of Vision: Bilateral Cancer: Yes Breast Did You Recieve Any Treatments: Yes What Type of Treatment Did You: Radiation, Surgical Intervention Psychosocial: No Integumentary: No Blood Disorders: Yes (IRON DEFFICIENCY ANEMIA-GETS IRON INFUSIONS) Adverse Reaction/Blood Tranf: No (HAS HAD BLOOD WITH NO REACTION) (JARED ODELL APRN) Family Medical History Hypertension G8 BROTHER Not obtainable due to adoption 19 FATHER Heart Disease, Hypertension ADDITIONAL PAST SURGICAL HISTORY -ZENKER'S DIVERTICULUM SURGERY X 2 -ABDOMINAL HERNIA REPAIR WITH MESH -MESH REMOVAL AND LYSIS OF ADHESIONS -HYST/BSO -LOOP RECORDER -PORT LEFT CHEST -LEFT BREAST LUMPECTOMY -CARDIAC CATH WITH STENT X 1 TO RCA 2010 -PORT LEFT CHEST -RIGHT SHOULDER REPLACEMENT -RENAL ARTERY STENOSIS WITH STENT 2013 (JARED ODELL APRN) Physical Exam Vital Signs Vital Signs - First Documented 10/15/21 18:05 Temp 36.8 Pulse 65 Resp 18 B/P (MAP) 185/90 (121) Pulse Ox 98 (PERLA,RAPHAEL K DO) Vital Signs Capillary Refill : (JARED ODELL APRN) Height, Weight, BMI Height: 5'4.00" Weight: 216lbs. 4.2oz. [id number]; 27.00 BMI Method:Stated General Appearance: No Apparent Distress, WD/WN Eyes: Bilateral Eye Normal Inspection, Bilateral Eye PERRL, Bilateral Eye EOMI Respiratory: No Accessory Muscle Use, No Respiratory Distress Gastrointestinal: Normal Bowel Sounds, Non Tender, Soft Back: No Vertebral Tenderness Extremity: Normal Capillary Refill, Other (The right wrist has deformity to it with minimal swelling. No abrasion or laceration or open wound) Neurologic/Psychiatric: Alert, Oriented x3 Skin: Normal Color, Warm/Dry (JARED ODELL APRN) Progress/Results/Core Measures Suspected Sepsis SIRS Temperature: Pulse: Respiratory Rate: Blood Pressure / Mean: (JARED ODELL APRN) Results/Orders Vital Signs/I&O 10/15/21 18:05 Temp 36.8 Pulse 65 Resp 18 B/P (MAP) 185/90 (121) Pulse Ox 98 (RAPHAEL DUNCAN DO) Vital Signs/I&O Capillary Refill : (JARED ODELL APRN) Departure Communication (Admissions) Given a Colles' splint and discharged (JARED ODELL APRN) Impression Primary Impression: Right wrist sprain Disposition: HOME, SELF-CARE Condition: Stable Departure-Patient Inst. Decision time for Depature: 19:00 (JARED ODELL APRN) Referrals: [facility] ([facility]P) Primary Care Physician JAVIER MOSS (Family) Primary Care Physician Patient Instructions: Wrist Sprain ED Add. Discharge Instructions: 1. Wear the splint as needed for pain for the next few days. Ice pack to the area. ATTENDING PHYSICIAN NOTE: I WAS PHYSICALLY PRESENT ER PHYSICIAN WHEN THIS PATIENT WAS IN ER, BUT I WAS NOT INVOLVED IN ANY DECISION MAKING OR ANY CARE OF THIS PATIENT. (RAPHAEL DUNCAN DO) JARED ODELL APRN Oct 15, 2021 18:06 RAPHAEL DUNCAN DO Oct 18, 2021 04:19
[2021-10-15] MEDS ORDERED: HYDROcodone/APAP 5 MG/325 MG (LORTAB) TAB PO ONE (18:15)
--- NOTE | 2021-10-15 18:42 | Diagnostic Imaging Report ---
EXAMINATION: Right wrist radiographs, 3 views. COMPARISON: October 14, 2019. HISTORY: 71-year-old female, fall. Right wrist pain. FINDINGS: There are deformities of the distal radius and distal ulna likely relating to sequela of remote prior fractures which are seen on the comparison exam. There is no identified acute fracture. There is no identified subluxation or dislocation. There is severe osteoarthritis of the first carpometacarpal joint. There is no identified radiopaque foreign body. IMPRESSION: 1. No identified acute bony abnormality of the right wrist. 2. Deformities of the distal radius and ulna consistent with healed prior fractures. Dictated by: Dictated on workstation # [id number]
== END 2021-10-15 19:06 | disposition home or self-care (01) ==
LOC: EDUNIT# 17:46 → ER 17:48
DX: S63.501A Unspecified sprain of right wrist, initial encounter (principal); I12.9 Hypertensive chronic kidney disease with stage 1 through stage 4 chronic kidney disease, or unspecified chronic kidney disease; N18.2 Chronic kidney disease, stage 2 (mild); E11.22 Type 2 diabetes mellitus with diabetic chronic kidney disease; D63.1 Anemia in chronic kidney disease; E11.21 Type 2 diabetes mellitus with diabetic nephropathy; E11.40 Type 2 diabetes mellitus with diabetic neuropathy, unspecified; I25.2 Old myocardial infarction; I25.10 Atherosclerotic heart disease of native coronary artery without angina pectoris; E89.0 Postprocedural hypothyroidism; G43.909 Migraine, unspecified, not intractable, without status migrainosus; K21.9 Gastro-esophageal reflux disease without esophagitis; Z86.718 Personal history of other venous thrombosis and embolism; Z86.73 Personal history of transient ischemic attack (TIA), and cerebral infarction without residual deficits; Z86.16 Personal history of COVID-19; Z90.710 Acquired absence of both cervix and uterus; Z90.722 Acquired absence of ovaries, bilateral; Z99.2 Dependence on renal dialysis; Z95.5 Presence of coronary angioplasty implant and graft; Z88.0 Allergy status to penicillin; Z88.1 Allergy status to other antibiotic agents; Z88.8 Allergy status to other drugs, medicaments and biological substances; Z79.4 Long term (current) use of insulin; Z79.52 Long term (current) use of systemic steroids; Z79.82 Long term (current) use of aspirin; Z79.899 Other long term (current) drug therapy; W01.0XXA Fall on same level from slipping, tripping and stumbling without subsequent striking against object, initial encounter; Y92.481 Parking lot as the place of occurrence of the external cause
CPT/HCPCS: 73110

== ENCOUNTER 2021-10-25 16:03 | Emergency (ER) | payer MEDICARE ==
[~2021-10-25] VITALS: Ht 160 cm; Wt 65.5 kg
[2021-10-25] MEDS ORDERED: NS IV 1000 ML 1,000 ML IV SCH (16:30)
[2021-10-25] MEDS ORDERED: ONDANSETRON 4 MG/2 ML (SDV) Z0FRAN IVP ONE (16:30)
--- NOTE | 2021-10-25 16:30 | ED General ---
General Chief Complaint: Cough/Cold/Flu Symptoms Stated Complaint: VOMITING, DIARRHEA, COUGH Nursing Triage Note: Pt states cough, nausea, vomiting for 3-4 days. had possible covid exposure on dereck. Source of Information: Patient Exam Limitations: No Limitations History of Present Illness Date Seen by Provider: Oct 25, 2021 Time Seen by Provider: 16:10 Initial Comments Patient is a 71-year-old female who presents to the emergency room with a chief complaint of productive cough with yellow sputum, nausea, decreased appetite, vomiting, diarrhea. Onset of all of the symptoms except for the diarrhea in the last 4 days. She has had diarrhea persistently for about 2 weeks. She states she was exposed to her son at [facility] who diagnosed positive with Covid. Patient has had Covid in early October 2019. She is not Covid vaccinated secondary to a reaction to her first shot last spring. She states her chest hurts with cough. She has mild headache. Slight rhinorrhea. No black or bloody stool. Took hydrocodone this morning for her backache/body aches and he adache. Also 4 mg of Zofran at 10 AM. She has a history of coronary artery disease with a stent. Sees [facility] as well as Dr. Singh. States that she has had a "low-grade" fever. All other review of systems reviewed and negative except as stated. Timing/Duration: 3-4 Days Severity: Moderate Associated Systoms: Chest Pain (with cough), Cough, Fever/Chills, Headaches, Loss of Appetite, Malaise, Nausea/Vomiting, Weakness Allergies and Home Medications Allergies Coded Allergies: clopidogrel (Verified Allergy, Severe, BLOOD CLOTS, 11/27/18) Penicillins (Verified Allergy, Mild, RASH, 11/27/18) carisoprodol (Verified Allergy, Mild, RASH, 11/27/18) cephalexin (Verified Allergy, Mild, RASH, 11/27/18) ketorolac (Verified Allergy, Mild, RASH, 11/27/18) prochlorperazine (Verified Allergy, Mild, RASH, 11/27/18) Carbamates (Verified Allergy, Unknown, Rash, 05/28/19) Patient Home Medication List Home Medication List Reviewed: Yes Albuterol Sulfate (Albuterol Sulfate) 2.5 Mg/3 Ml Vial.neb, 2 PUFF INH Q4H PRN for SHORTNESS OF BREATH Prescribed by: DASIA FRANKLIN on 11/25/20 1101 Amlodipine Besylate (Amlodipine Besylate) 10 Mg Tablet, 10 MG PO DAILY, (Reported) Entered as Reported by: ETHEL JONES on 11/14/20 1527 Aspirin (Aspirin EC) 81 Mg Tablet.dr, 81 MG PO DAILY Prescribed by: OLIVE ISAAC on 11/21/20 1010 Atorvastatin Calcium (Atorvastatin Calcium) 40 Mg Tablet, 40 MG PO HS, (Reported) Entered as Reported by: REMA LIZAMA on 09/03/19 1408 Cholecalciferol (Vitamin D3) (Vitamin D3) 50 Mcg Tablet, 50 MCG PO DAILY, (Reported) Entered as Reported by: ETHEL JONES on 11/14/20 1527 Codeine/Butalbital/ASA/Caffein (VBT-Pkveuc-Upny-Cod #3 Capsule) 1 Each Capsule, 1 EACH PO DAILY PRN for MIGRAINE, (Reported) Entered as Reported by: ETHEL JONES on 11/14/20 1527 Duloxetine HCl (Cymbalta) 30 Mg Capsule.dr, 30 MG PO DAILY, (Reported) Entered as Reported by: BARRETT DANIELLE on 11/27/18 0949 Folic Acid (Folic Acid) 1 Mg Tablet, 1 MG PO DAILY, (Reported) Entered as Reported by: ANOMY ESTRADA on 05/28/19 1246 Furosemide (Furosemide) 40 Mg Tablet, 40 MG PO DAILY PRN for EDEMA Prescribed by: OLIVE ISAAC on 11/21/20 1010 Hydrocodone/Acetaminophen (Hydrocodone-Acetamin 5-325 mg) 1 Each Tablet, 1-2 EACH PO Q4-6 HOURS PRN for PAIN Prescribed by: RAPHAEL DUNCAN on 11/26/202106 Hydroxychloroquine Sulfate (Hydroxychloroquine Sulfate) 200 Mg Tablet, 200 MG PO BID, (Reported) Entered as Reported by: NAOMY ESTRADA on 05/28/19 1252 Hyoscyamine Sulfate (Levsin-Sl) 0.125 Mg Tab.subl, 0.25 MG SL Q4H Prescribed by: RAPHAEL DUNCAN on 11/26/202106 Levetiracetam (Levetiracetam) 500 Mg Tablet, 500 MG PO BID Prescribed by: OLIVE ISAAC on 11/21/20 1010 Metoprolol Succinate (Metoprolol Succinate) 100 Mg Tab.er.24h, 100 MG PO DAILY, (Reported) Entered as Reported by: REMA LIZAMA on 09/03/19 1408 Nitrofurantoin Macrocrystal (Nitrofurantoin) 100 Mg Capsule, 100 MG PO BID Prescribed by: ARGELIA CA on 02/06/21 1309 Ondansetron (Ondansetron Odt) 4 Mg Tab.rapdis, 4 MG PO Q4H PRN for NAUSEA-1ST LINE Prescribed by: DASIA FRANKLIN on 11/25/20 1101 Ondansetron (Ondansetron Odt) 8 Mg Tab.rapdis, 8 MG PO Q6H Prescribed by: RAPHAEL DUNCAN on 11/26/20 210 Oxycodone HCl/Acetaminophen (Percocet 7.5-325 mg Tablet) 1 Each Tablet, 1 TAB PO Q4H PRN for PAIN-MODERATE Prescribed by: GUSTABO CARRINGTON on 05/10/21 1705 Pantoprazole Sodium (Pantoprazole Sodium) 40 Mg Tablet.dr, 40 MG PO DAILY, (Reported) Entered as Reported by: BARRETT DANIELLE on 11/27/18 0949 Pantoprazole Sodium (Protonix) 40 Mg Tablet.dr, 40 MG PO DAILY Prescribed by: RAPHAEL DUNCAN on 11/26/20 210 Prednisone (Prednisone) 20 Mg Tab, 40 MG PO DAILY Prescribed by: JARED ODELL on 03/26/21 1523 Sulfamethoxazole/Trimethoprim (Bactrim Ds Tablet) 1 Each Tablet, 7 EACH PO BID Prescribed by: GUSTABO CARRINGTON on 05/10/21 0652 Topiramate (Topiramate) 50 Mg Tablet, 75 MG PO BID, (Reported) Entered as Reported by: BARRETT DANIELLE on 11/27/18 0949 Review of Systems Review of Systems Constitutional: see HPI, fever ("low grade") EENTM: no symptoms reported Respiratory: cough, phlegm (yellow) Cardiovascular: chest pain (with cough) Gastrointestinal: abdominal pain, diarrhea, nausea, vomiting Genitourinary: no symptoms reported : No Musculoskeletal: back pain, muscle cramps (legs) Skin: no symptoms reported Psychiatric/Neurological: Headache All Other Systems Reviewed Negative Unless Noted: Yes Past Uhxecnw-Kzssxi-Qpdlol Hx Immunizations Up To Date Tetanus Booster (TDap): Unknown First/Initial COVID19 Vaccinat: 03/10 Second COVID19 Vaccination Enrique: 03/10 Third COVID19 Vaccination Date: 03/10 Seasonal Allergies Seasonal Allergies: No Past Medical History Surgery/Hospitalization HX: [place] HX, STROKE HX, PANCREATITIS, PNEUMONIA HX, COVID HX Surgeries: Yes (R CTR, espohageal ligation x2, Hernia, L RCR, L TKR, laparotomy, MRSA infec) Abdominal, Breast, Cardiac, Coronary Stent, Hysterectomy, Joint Replacement, Oophorectomy, Orthopedic, Thyroidectomy Respiratory: Yes (COVID-19 November 07, 2020-ADMITTED WITH PNEUMONIA) Pneumonia Currently Using CPAP: No Currently Using BIPAP: No Cardiac: Yes (HX HEART CATH-STENT;MILD BILAT CAROTID STENOSIS;DVT L ARM DUE TO PICC LINE) Coronary Artery Disease, Deep Vein Thrombosis, Heart Attack, High Cholesterol, Hypertension, Peripheral Vascular Neurological: Yes Headaches /Migraines, Neuropathy 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: Hysterectomy, Menopausal Sexually Transmitted Disease: No HIV/AIDS: No Genitourinary: Yes (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,STAGE 2-KIDNEY DISEASE;DIABETIC NEPHROPA ) Bladder Infection, Renal Failure, Dialysis Gastrointestinal: Yes (HX GI BLEED, zenkers syndrome-chokes easily, hx hep A;LIVER INJURY/TRAUMA) Abdominal Hernia, Gastroesophageal Reflux, Gastrointestinal Bleed, Esophageal Varices, Hepatitis Musculoskeletal: Yes (OSTEOARTHRITIS, BULGING DISCS) Arthritis, Chronic Back Pain Endocrine: Yes (partial thyroidectomy) Diabetes, Insulin dep, Hypothyroidsim HEENT: Yes (GLASSES, UPPER DENTURES) Glaucoma Loss of Vision: Bilateral Cancer: Yes Breast Did You Recieve Any Treatments: Yes What Type of Treatment Did You: Radiation, Surgical Intervention Psychosocial: No Integumentary: No Blood Disorders: Yes (IRON DEFFICIENCY ANEMIA-GETS IRON INFUSIONS) Adverse Reaction/Blood Tranf: No (HAS HAD BLOOD WITH NO REACTION) Family Medical History Hypertension G8 BROTHER Not obtainable due to adoption 19 FATHER Heart Disease, Hypertension ADDITIONAL PAST SURGICAL HISTORY -ZENKER'S DIVERTICULUM SURGERY X 2 -ABDOMINAL HERNIA REPAIR WITH MESH -MESH REMOVAL AND LYSIS OF ADHESIONS -HYST/BSO -LOOP RECORDER -PORT LEFT CHEST -LEFT BREAST LUMPECTOMY -CARDIAC CATH WITH STENT X 1 TO RCA 2009 -PORT LEFT CHEST -RIGHT SHOULDER REPLACEMENT -RENAL ARTERY STENOSIS WITH STENT 2013 Physical Exam Vital Signs Vital Signs - First Documented 10/25/21 16:05 Temp 36.9 Pulse 91 Resp 18 B/P (MAP) 116/74 (88) Pulse Ox 98 O2 Delivery Room Air Capillary Refill : Less Than 3 Seconds Height, Weight, BMI Height: 5'4.00" Weight: 216lbs. 4.2oz. 98.578038kk; 25.00 BMI Method:Stated General Appearance: No Apparent Distress, WD/WN Eyes: Bilateral Eye Normal Inspection, Bilateral Eye PERRL, Bilateral Eye EOMI HEENT: PERRL/EOMI, Pharynx Normal, Other (dry mucous membranes) Neck: Normal Inspection, Non Tender, Supple Respiratory: Chest Non Tender, No Accessory Muscle Use, No Respiratory Distress, Other (coarse cough) Cardiovascular: Normal Peripheral Pulses, Irregularly Irregular Gastrointestinal: Non Tender, Soft Back: Normal Inspection, No CVA Tenderness Extremity: Normal Capillary Refill, Normal Inspection, Normal Range of Motion, Non Tender, No Calf Tenderness, No Pedal Edema Neurologic/Psychiatric: Alert, Oriented x3, No Motor/Sensory Deficits, Normal 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/Affect, 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 Norm as Tested Skin: Normal Color, Warm/Dry Progress/Results/Core Measures Suspected Sepsis SIRS Temperature: Pulse: 91 Respiratory Rate: 18 Laboratory Tests 10/25/21 16:10: White Blood Count 6.3 Blood Pressure 116 /74 Mean: 88 Laboratory Tests 10/25/21 16:10: Creatinine 1.29, Platelet Count 206, Total Bilirubin 0.2 Results/Orders Lab Results Laboratory Tests Test 10/25/21 16:10 Range/Units White Blood Count 6.3 4.3-11.0 10^3/uL Red Blood Count 4.11 3.80-5.11 10^6/uL Hemoglobin 11.9 11.5-16.0 g/dL Hematocrit 37 35-52 % Mean Corpuscular Volume 90 80-99 fL Mean Corpuscular Hemoglobin 29 25-34 pg Mean Corpuscular Hemoglobin Concent 32 32-36 g/dL Red Cell Distribution Width 13.4 10.0-14.5 % Platelet Count 206 130-400 10^3/uL Mean Platelet Volume 10.2 9.0-12.2 fL Immature Granulocyte % (Auto) 1 % Neutrophils (%) (Auto) 65 42-75 % Lymphocytes (%) (Auto) 20 12-44 % Monocytes (%) (Auto) 13 H 0-12 % Eosinophils (%) (Auto) 1 0-10 % Basophils (%) (Auto) 1 0-10 % Neutrophils # (Auto) 4.1 1.8-7.8 10^3/uL Lymphocytes # (Auto) 1.3 1.0-4.0 10^3/uL Monocytes # (Auto) 0.8 0.0-1.0 10^3/uL Eosinophils # (Auto) 0.0 0.0-0.3 10^3/uL Basophils # (Auto) 0.1 0.0-0.1 10^3/uL Immature Granulocyte # (Auto) 0.0 0.0-0.1 10^3/uL Sodium Level 139 135-145 MMOL/L Potassium Level 3.7 3.6-5.0 MMOL/L Chloride Level 111 H 98-107 MMOL/L Carbon Dioxide Level 18 L 21-32 MMOL/L Anion Gap 10 5-14 MMOL/L Blood Urea Nitrogen 17 7-18 MG/DL Creatinine 1.29 0.60-1.30 MG/DL Estimat Glomerular Filtration Rate 41 BUN/Creatinine Ratio 13 Glucose Level 108 H 70-105 MG/DL Calcium Level 8.1 L 8.5-10.1 MG/DL Corrected Calcium 8.4 L 8.5-10.1 MG/DL Total Bilirubin 0.2 0.1-1.0 MG/DL Aspartate Amino Transf (AST/SGOT) 20 5-34 U/L Alanine Aminotransferase (ALT/SGPT) 14 0-55 U/L Alkaline Phosphatase 107 40-136 U/L Total Protein 6.6 6.4-8.2 GM/DL Albumin 3.6 3.2-4.5 GM/DL Influenza Type A Antigen NEGATIVE NEGATIVE Influenza Type B Antigen NEGATIVE NEGATIVE SARS-CoV-2 RNA (RT-PCR) Negative Negative My Orders Orders - WENDY DAWN MD Ed Iv/Invasive Line Start (10/25/21 16:24) Cbc With Automated Diff (10/25/21 16:24) Comprehensive Metabolic Panel (10/25/21 16:24) Chest 1 View, Ap/Pa Only (10/25/21 16:24) Covid 19 Inhouse Test (10/25/21 16:24) Isolation Central Supply Req (10/25/21 16:24) Influenza A & B Antigens (10/25/21 16:24) Ns Iv 1000 Ml (Sodium Chloride 0.9%) (10/25/21 16:30) Ondansetron Injection (Zofran Injectio (10/25/21 16:30) Ekg Tracing (10/25/21 16:30) Coronavirus Sars-Cov-2 So 2018 (10/25/21 16:46) Medications Given in ED Current Medications Medications Dose Ordered Sig/Ana María Route Start Time Stop Time Status Last Admin Dose Admin Ondansetron HCl 4 mg ONCE ONCE IVP 10/25/21 16:30 10/25/21 16:31 DC 10/25/21 16:37 4 MG Vital Signs/I&O 10/25/21 16:05 Temp 36.9 Pulse 91 Resp 18 B/P (MAP) 116/74 (88) Pulse Ox 98 O2 Delivery Room Air Capillary Refill : Less Than 3 Seconds Blood Pressure Mean: 88 Progress Note : Time: 18:15 Progress Note Patient reexamined, no respiratory distress. Still some minor back pain and generalized fatigue. We discussed her COVID results and the need for quarantine until her high-sensitivity DNA PCR test comes back. She verbalized understanding. She is comfortable with the plan of care, wishes to be sent home by taxi. All questions are sought and answered ECG Initial ECG Impression Date: Oct 25, 2021 Initial ECG Impression Time: 16:39 Initial ECG Rate: 88 Initial ECG Rhythm: Normal Sinus Initial ECG Intervals: Normal Initial ECG Impression: Normal Diagnostic Imaging Diagonstic Imaging: Xray Plain Films/CT/US/NM/MRI: chest Comments [facility]. [place], [place] NAME: KEO AGUIRRE [facility] REC#: [id number] PT STATUS: REG ER : 1950 PHYSICIAN: WENDY DAWN MD ADMIT DATE: 10/25/21/ER Signed Date of Exam:10/25/21 CHEST 1 VIEW, AP/PA ONLY Indication: Cough and fever Portable chest 4:52 PM Left subclavian Port-A-Cath tip projects over the SVC. Heart size and pulmonary vascularity are normal. Lungs are clear. There are no effusions or pneumothoraces. IMPRESSION: No acute abnormalities in the chest Dictated by: Dictated on workstation # [id number] Dict: 10/25/211703 Trans: 10/25/211705 TCB [id number] Interpreted by: IRMA KRAUSE MD Electronically signed by: IRMA KRAUSE MD 10/25/211705 Departure Impression Primary Impression: Viral syndrome Additional Impression: Person under investigation for COVID-19 Disposition: HOME, SELF-CARE Condition: Stable Departure-Patient Inst. Decision time for Depature: 18:14 Referrals: [facility] (PCP) Primary Care Physician JAVIER MOSS (Family) Primary Care Physician Patient Instructions: Viral Syndrome (DC) Add. Discharge Instructions: Drink plenty of fluids to stay well-hydrated. Alternate Tylenol and/or ibuprofen every 6 hours for body aches, fever over 100.4. Continue your hydrocodone every 6 hours as needed for pain. Make sure you are taking a daily stool softener while taking narcotics. Zofran, 2 tablets which is 8 mg every 8 hours for nausea. Check your pulse ox periodically, if it drops below 92 you need to come back to the emergency department. The hospital will contact you about your COVID PCR test tomorrow. You should continue to quarantine until you get a negative test result. Return to the emergency room for any other emergent, concerning symptoms. Follow-up with your primary care doctor as scheduled. WENDY DAWN MD Oct 25, 2021 16:30
[2021-10-25 16:32] LABS: BASOPHILS # (AUTO) 0.1 10^3/uL (0.0-0.1); BASOPHILS % (AUTO) 1 % (0-10); EOSINOPHILS % (AUTO) 1 % (0-10); HEMATOCRIT 37 % (35-52); HEMOGLOBIN 11.9 g/dL (11.5-16.0); LYMPHOCYTES # (AUTO) 1.3 10^3/uL (1.0-4.0); LYMPHOCYTES % (AUTO) 20 % (12-44); MEAN CORPUSCULAR HEMOGLOBIN 29 pg (25-34); MEAN CORPUSCULAR HGB CONC 32 g/dL (32-36); MEAN CORPUSCULAR VOLUME 90 fL (80-99); MEAN PLATELET VOLUME 10.2 fL (9.0-12.2); MONOCYTES # (AUTO) 0.8 10^3/uL (0.0-1.0); MONOCYTES % (AUTO) 13 % (0-12); NEUTROPHILS # (AUTO) 4.1 10^3/uL (1.8-7.8); NEUTROPHILS % (AUTO) 65 % (42-75); PLATELET COUNT 206 10^3/uL (130-400); WHITE BLOOD COUNT 6.3 10^3/uL (4.3-11.0)
[2021-10-25 16:34] LABS: ALBUMIN 3.6 GM/DL (3.2-4.5)
[2021-10-25 16:35] LABS: POTASSIUM 3.7 MMOL/L (3.6-5.0)
[2021-10-25 16:36] LABS: CALCIUM 8.1 MG/DL (8.5-10.1)
[2021-10-25 16:37] LABS: TOTAL PROTEIN 6.6 GM/DL (6.4-8.2)
[2021-10-25 16:39] LABS: BILIRUBIN,TOTAL 0.2 MG/DL (0.1-1.0)
[2021-10-25 16:41] LABS: CREATININE SERUM 1.29 MG/DL (0.60-1.30)
--- NOTE | 2021-10-25 17:07 | Diagnostic Imaging Report ---
Indication: Cough and fever Portable chest 4:52 PM Left subclavian Port-A-Cath tip projects over the SVC. Heart size and pulmonary vascularity are normal. Lungs are clear. There are no effusions or pneumothoraces. IMPRESSION: No acute abnormalities in the chest Dictated by: Dictated on workstation # [id number]
[2021-10-25] MEDS ORDERED: HYDROcodone/APAP 7.5 MG/325 MG (LORTAB, LORCET PLUS) TABLET PO ONE (18:30)
[2021-10-25 18:31] VITALS: BP 128/94
== END 2021-10-25 18:31 | disposition home or self-care (01) ==
LOC: EDUNIT# 16:03 → ER 16:05
DX: B34.9 Viral infection, unspecified (principal); I25.2 Old myocardial infarction; I10 Essential (primary) hypertension; I25.10 Atherosclerotic heart disease of native coronary artery without angina pectoris; E78.00 Pure hypercholesterolemia, unspecified; K21.9 Gastro-esophageal reflux disease without esophagitis; G89.29 Other chronic pain; M54.9 Dorsalgia, unspecified; E11.9 Type 2 diabetes mellitus without complications; Z20.822 Contact with and (suspected) exposure to COVID-19; Z79.82 Long term (current) use of aspirin; Z79.899 Other long term (current) drug therapy; Z79.891 Long term (current) use of opiate analgesic
CPT/HCPCS: 36415; 71045; 80053; 85025; 87635; 87636; 87804; 93005; 96374

== ENCOUNTER → 2021-10-27 | Outpatient (CLI) | payer MEDICARE ==
[~2021-10-27] VITALS: Ht 162.6 cm; Wt 64.9 kg
== END | disposition home or self-care (01) ==
LOC: PREOP 08:32
PROVIDERS: ATTEND Surgery
DX: Z01.818 Encounter for other preprocedural examination (principal)

== ENCOUNTER 2021-10-28 19:19 | Emergency (ER) | payer MEDICARE ==
[~2021-10-28] VITALS: Ht 162 cm; Wt 61.0 kg
[2021-10-28] MEDS ORDERED: PROMETHAZINE INJ 25 MG/ML (PHENERGAN) AMP IVP ONE ×2 (21:00→21:30)
[2021-10-28] MEDS ORDERED: LACTATED RINGERS 1,000 ML IV SCH (21:00)
[2021-10-28] MEDS ORDERED: fentaNYL INJ 100 MCG/2 ML AMP IVP ONE (21:00)
[2021-10-28 21:03] LABS: BASOPHILS # (AUTO) 0.1 10^3/uL (0.0-0.1); BASOPHILS % (AUTO) 1 % (0-10); EOSINOPHILS # (AUTO) 0.1 10^3/uL (0.0-0.3); EOSINOPHILS % (AUTO) 1 % (0-10); HEMATOCRIT 41 % (35-52); HEMOGLOBIN 12.8 g/dL (11.5-16.0); LYMPHOCYTES # (AUTO) 1.7 10^3/uL (1.0-4.0); LYMPHOCYTES % (AUTO) 15 % (12-44); MEAN CORPUSCULAR HEMOGLOBIN 29 pg (25-34); MEAN CORPUSCULAR HGB CONC 32 g/dL (32-36); MEAN CORPUSCULAR VOLUME 91 fL (80-99); MEAN PLATELET VOLUME 9.9 fL (9.0-12.2); MONOCYTES # (AUTO) 0.6 10^3/uL (0.0-1.0); MONOCYTES % (AUTO) 5 % (0-12); NEUTROPHILS # (AUTO) 8.9 10^3/uL (1.8-7.8); NEUTROPHILS % (AUTO) 78 % (42-75); PLATELET COUNT 232 10^3/uL (130-400); WHITE BLOOD COUNT 11.3 10^3/uL (4.3-11.0)
[2021-10-28 21:18] LABS: ALBUMIN 3.9 GM/DL (3.2-4.5)
[2021-10-28 21:19] LABS: CALCIUM 8.3 MG/DL (8.5-10.1)
[2021-10-28 21:20] LABS: TOTAL PROTEIN 7.1 GM/DL (6.4-8.2)
[2021-10-28 21:22] LABS: BILIRUBIN,TOTAL 0.3 MG/DL (0.1-1.0)
[2021-10-28 21:24] LABS: CREATININE SERUM 1.32 MG/DL (0.60-1.30)
--- NOTE | 2021-10-28 21:27 | ED Abdominal Pain ---
General Chief Complaint: Abdominal/GI Problems Stated Complaint: BACK AND STOMACH PAIN/WEAKNESS/DIARRHEA/VOMITING Nursing Triage Note: PT REPORTS ABD PAIN, BACK PAIN, N/V/D X2 WEEKS. PT IS SCHEDULED FOR JAIR Lebron/ YANNI NEXT WEEK, PT REPORTS PAIN IS TOO BAD TO WAIT FOR THAT APPOINTMENT Source of Information: Patient Exam Limitations: No Limitations (JARED ODELL APRN) History of Present Illness Date Seen by Provider: Oct 28, 2021 Time Seen by Provider: 21:26 Initial Comments To ER with epigastric abdominal pain nausea vomiting for 6 weeks worse today. Worsened by food, chronic watery diarrhea as well. Her home hydrocodone is not helping. Timing/Duration: 1-2 Days Severity/Quality: Severe Location: Epigastric Radiation: No Radiation Activities at Onset: None Associated Symptoms: Nausea/Vomiting (JARED ODELL APRN) Allergies and Home Medications Allergies Coded Allergies: clopidogrel (Verified Allergy, Severe, BLOOD CLOTS, 11/27/18) Penicillins (Verified Allergy, Mild, RASH, 11/27/18) carisoprodol (Verified Allergy, Mild, RASH, 11/27/18) cephalexin (Verified Allergy, Mild, RASH, 11/27/18) ketorolac (Verified Allergy, Mild, RASH, 11/27/18) prochlorperazine (Verified Allergy, Mild, RASH, 11/27/18) Carbamates (Verified Allergy, Unknown, Rash, 05/28/19) Patient Home Medication List Home Medication List Reviewed: Yes (JARED ODELL APRN) Albuterol Sulfate (Albuterol Sulfate) 2.5 Mg/3 Ml Vial.neb, 2 PUFF INH Q4H PRN for SHORTNESS OF BREATH Prescribed by: DASIA FRANKLIN on 11/25/20 1101 Amlodipine Besylate (Amlodipine Besylate) 10 Mg Tablet, 10 MG PO DAILY, (Reported) Entered as Reported by: ETHEL JONES on 11/14/20 1527 Aspirin (Aspirin EC) 81 Mg Tablet.dr, 81 MG PO DAILY Prescribed by: OLIVE ISAAC on 11/21/20 1010 Atorvastatin Calcium (Atorvastatin Calcium) 40 Mg Tablet, 40 MG PO HS, (Reported) Entered as Reported by: REMA LIZAMA on 09/03/19 1408 Cholecalciferol (Vitamin D3) (Vitamin D3) 50 Mcg Tablet, 50 MCG PO DAILY, (Reported) Entered as Reported by: ETHEL JONES on 11/14/20 1527 Codeine/Butalbital/ASA/Caffein (GER-Lkpwwc-Phvc-Cod #3 Capsule) 1 Each Capsule, 1 EACH PO DAILY PRN for MIGRAINE, (Reported) Entered as Reported by: ETHEL JONES on 11/14/20 1527 Duloxetine HCl (Cymbalta) 30 Mg Capsule.dr, 30 MG PO DAILY, (Reported) Entered as Reported by: BARRETT DANIELLE on 11/27/18 0949 Folic Acid (Folic Acid) 1 Mg Tablet, 1 MG PO DAILY, (Reported) Entered as Reported by: NAOMY ESTRADA on 05/28/19 1246 Hydroxychloroquine Sulfate (Hydroxychloroquine Sulfate) 200 Mg Tablet, 200 MG PO BID, (Reported) Entered as Reported by: NAOMY ESTRADA on 05/28/19 1252 Hyoscyamine Sulfate (Levsin-Sl) 0.125 Mg Tab.subl, 0.25 MG SL Q4H Prescribed by: RAPHAEL DUNCAN on 11/26/202106 Levetiracetam (Levetiracetam) 500 Mg Tablet, 500 MG PO BID Prescribed by: OLIVE ISAAC on 11/21/20 1010 Metoprolol Succinate (Metoprolol Succinate) 100 Mg Tab.er.24h, 100 MG PO DAILY, (Reported) Entered as Reported by: REMA LIZAMA on 09/03/19 1408 Ondansetron (Ondansetron Odt) 4 Mg Tab.rapdis, 4 MG PO Q4H PRN for NAUSEA-1ST LINE Prescribed by: DASIA FRANKLIN on 11/25/20 1101 Ondansetron (Ondansetron Odt) 8 Mg Tab.rapdis, 8 MG PO Q6H Prescribed by: RAPHAEL DUNCAN on 11/26/202106 Pantoprazole Sodium (Pantoprazole Sodium) 40 Mg Tablet.dr, 40 MG PO DAILY, (Reported) Entered as Reported by: BARRETT DANIELLE on 11/27/18 0949 Pantoprazole Sodium (Protonix) 40 Mg Tablet.dr, 40 MG PO DAILY Prescribed by: RAPHAEL DUNCAN on 11/26/202106 Prednisone (Prednisone) 20 Mg Tab, 40 MG PO DAILY Prescribed by: JARED ODELL on 03/26/21 1523 Topiramate (Topiramate) 50 Mg Tablet, 75 MG PO BID, (Reported) Entered as Reported by: BARRETT DANIELLE on 11/27/18 0949 Discontinued Medications Furosemide (Furosemide) 40 Mg Tablet, 40 MG PO DAILY PRN for EDEMA Discontinued Reason: No Longer Taking Prescribed by: OLIVE ISAAC on 11/21/20 1010 Hydrocodone/Acetaminophen (Hydrocodone-Acetamin 5-325 mg) 1 Each Tablet, 1-2 EACH PO Q4-6 HOURS PRN for PAIN Discontinued Reason: No Longer Taking Prescribed by: RAPHAEL DUNCAN on 11/26/202106 Nitrofurantoin Macrocrystal (Nitrofurantoin) 100 Mg Capsule, 100 MG PO BID Discontinued Reason: No Longer Taking Prescribed by: ARGELIA CA on 02/06/21 1309 Oxycodone HCl/Acetaminophen (Percocet 7.5-325 mg Tablet) 1 Each Tablet, 1 TAB PO Q4H PRN for PAIN-MODERATE Discontinued Reason: No Longer Taking Prescribed by: GUSTABO CARRINGTON on 05/10/21 1705 Sulfamethoxazole/Trimethoprim (Bactrim Ds Tablet) 1 Each Tablet, 7 EACH PO BID Discontinued Reason: No Longer Taking Prescribed by: GUSTABO CARRINGTON on 05/10/21 0652 Review of Systems Review of Systems Constitutional: see HPI EENTM: No Symptoms Reported Respiratory: No Symptoms Reported Cardiovascular: No Symptoms Reported Gastrointestinal: See HPI, Abdominal Pain Genitourinary: No Symptoms Reported Musculoskeletal: no symptoms reported Skin: no symptoms reported Psychiatric/Neurological: No Symptoms Reported Endocrine: No Symptoms Reported Hematologic/Lymphatic: No Symptoms Reported (JARED ODELL APRN) Past Pmfryzj-Escdki-Wooqln Hx Immunizations Up To Date Tetanus Booster (TDap): Unknown First/Initial COVID19 Vaccinat: 03/10 Second COVID19 Vaccination Enrique: 03/10 Third COVID19 Vaccination Date: 03/10 (JARED ODELL APRN) Seasonal Allergies Seasonal Allergies: No (JARED ODELL APRN) Past Medical History Surgery/Hospitalization HX: [place] HX, STROKE HX, PANCREATITIS, PNEUMONIA HX, COVID HX Surgeries: Yes (R CTR, espohageal ligation x2, Hernia, L RCR, L TKR, laparotomy, MRSA infec) Abdominal, Breast, Cardiac, Coronary Stent, Hysterectomy, Joint Replacement, Oophorectomy, Orthopedic, Thyroidectomy Respiratory: Yes (COVID-19 November 07, 2020-ADMITTED WITH PNEUMONIA) Pneumonia Currently Using CPAP: No Currently Using BIPAP: No Cardiac: Yes (HX HEART CATH-STENT;MILD BILAT CAROTID STENOSIS;DVT L ARM DUE TO PICC LINE) Coronary Artery Disease, Deep Vein Thrombosis, Heart Attack, High Cholesterol, Hypertension, Peripheral Vascular Neurological: Yes Headaches /Migraines, Neuropathy [employer] History: Hysterectomy, Menopausal Sexually Transmitted Disease: No HIV/AIDS: No Genitourinary: Yes (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,STAGE 2-KIDNEY DISEASE;DIABETIC NEPHROPA ) Bladder Infection, Renal Failure, Dialysis Gastrointestinal: Yes (HX GI BLEED, zenkers syndrome-chokes easily, hx hep A;LIVER INJURY/TRAUMA) Abdominal Hernia, Gastroesophageal Reflux, Gastrointestinal Bleed, Esophageal Varices, Hepatitis Musculoskeletal: Yes (OSTEOARTHRITIS, BULGING DISCS) Arthritis, Chronic Back Pain Endocrine: Yes (partial thyroidectomy) Hypothyroidsim HEENT: Yes (GLASSES, UPPER DENTURES) Glaucoma Loss of Vision: Bilateral Cancer: Yes Breast Did You Recieve Any Treatments: Yes What Type of Treatment Did You: Radiation, Surgical Intervention Psychosocial: No Integumentary: No Blood Disorders: Yes (IRON DEFFICIENCY ANEMIA-GETS IRON INFUSIONS) Adverse Reaction/Blood Tranf: No (HAS HAD BLOOD WITH NO REACTION) (JARED ODELL APRN) Family Medical History Hypertension G8 BROTHER Not obtainable due to adoption 19 FATHER Heart Disease, Hypertension ADDITIONAL PAST SURGICAL HISTORY -ZENKER'S DIVERTICULUM SURGERY X 2 -ABDOMINAL HERNIA REPAIR WITH MESH -MESH REMOVAL AND LYSIS OF ADHESIONS -HYST/BSO -LOOP RECORDER -PORT LEFT CHEST -LEFT BREAST LUMPECTOMY -CARDIAC CATH WITH STENT X 1 TO RCA 2009 -PORT LEFT CHEST -RIGHT SHOULDER REPLACEMENT -RENAL ARTERY STENOSIS WITH STENT 2013 (JARED ODELL APRN) Physical Exam Vital Signs Vital Signs - First Documented 10/28/21 20:06 Temp 36.9 Pulse 97 Resp 18 B/P (MAP) 155/93 (113) Pulse Ox 98 O2 Delivery Room Air (PERLA,RAPHAEL K DO) Vital Signs Capillary Refill : Less Than 3 Seconds (JARED ODELL APRN) Height/Weight/BMI Height: 5'4.00" Weight: 216lbs. 4.2oz. [id number]; 23.00 BMI Method:Stated General Appearance: WD/WN, no apparent distress HEENT: PERRL/EOMI, normal ENT inspection Neck: non-tender, full range of motion Respiratory: no respiratory distress, no accessory muscle use Cardiovascular: regular rate, rhythm, no murmur Gastrointestinal: normal bowel sounds, soft, tenderness Extremities: normal range of motion, non-tender, normal inspection Neurologic/Psychiatric: alert, normal mood/affect, oriented x 3 Skin: normal color, warm/dry (JARED ODELL APRN) Progress/Results/Core Measures Results/Orders Lab Results Laboratory Tests Test 10/28/21 20:50 Range/Units White Blood Count 11.3 H 4.3-11.0 10^3/uL Red Blood Count 4.46 3.80-5.11 10^6/uL Hemoglobin 12.8 11.5-16.0 g/dL Hematocrit 41 35-52 % Mean Corpuscular Volume 91 80-99 fL Mean Corpuscular Hemoglobin 29 25-34 pg Mean Corpuscular Hemoglobin Concent 32 32-36 g/dL Red Cell Distribution Width 13.4 10.0-14.5 % Platelet Count 232 130-400 10^3/uL Mean Platelet Volume 9.9 9.0-12.2 fL Immature Granulocyte % (Auto) 0 % Neutrophils (%) (Auto) 78 H 42-75 % Lymphocytes (%) (Auto) 15 12-44 % Monocytes (%) (Auto) 5 0-12 % Eosinophils (%) (Auto) 1 0-10 % Basophils (%) (Auto) 1 0-10 % Neutrophils # (Auto) 8.9 H 1.8-7.8 10^3/uL Lymphocytes # (Auto) 1.7 1.0-4.0 10^3/uL Monocytes # (Auto) 0.6 0.0-1.0 10^3/uL Eosinophils # (Auto) 0.1 0.0-0.3 10^3/uL Basophils # (Auto) 0.1 0.0-0.1 10^3/uL Immature Granulocyte # (Auto) 0.0 0.0-0.1 10^3/uL Sodium Level 140 135-145 MMOL/L Potassium Level 4.0 3.6-5.0 MMOL/L Chloride Level 112 H 98-107 MMOL/L Carbon Dioxide Level 17 L 21-32 MMOL/L Anion Gap 11 5-14 MMOL/L Blood Urea Nitrogen 22 H 7-18 MG/DL Creatinine 1.32 H 0.60-1.30 MG/DL Estimat Glomerular Filtration Rate 39 BUN/Creatinine Ratio 17 Glucose Level 207 H 70-105 MG/DL Calcium Level 8.3 L 8.5-10.1 MG/DL Corrected Calcium 8.4 L 8.5-10.1 MG/DL Total Bilirubin 0.3 0.1-1.0 MG/DL Aspartate Amino Transf (AST/SGOT) 14 5-34 U/L Alanine Aminotransferase (ALT/SGPT) 15 0-55 U/L Alkaline Phosphatase 137 H 40-136 U/L Total Protein 7.1 6.4-8.2 GM/DL Albumin 3.9 3.2-4.5 GM/DL Lipase 53 8-78 U/L (RAPHAEL DUNCAN DO) Medications Given in ED Current Medications Medications Dose Ordered Sig/Ana María Route Start Time Stop Time Status Last Admin Dose Admin Al Hydrox/Mg Hydrox/Simethicone 30 ml ONCE ONCE PO 10/28/21 21:30 10/28/21 21:31 DC 10/28/21 22:29 30 ML Clonidine HCl 0.1 mg ONCE ONCE PO 10/28/21 22:45 10/28/21 22:46 DC 10/28/21 22:48 0.1 MG Fentanyl Citrate 50 mcg ONCE ONCE IVP 10/28/21 21:00 10/28/21 21:01 DC 10/28/21 21:07 50 MCG Fentanyl Citrate 100 mcg STK-MED ONCE .ROUTE 10/28/21 21:47 10/28/21 21:51 DC 10/28/21 21:55 100 MCG Iohexol 100 ml ONCE ONCE IV 10/28/21 22:30 10/28/21 22:50 DC 10/28/21 22:32 85 ML Lidocaine HCl 15 ml ONCE ONCE PO 10/28/21 21:30 10/28/21 21:31 DC 10/28/21 22:29 15 ML Lorazepam 0.5 mg ONCE PRN IVP 10/28/21 22:45 10/28/21 23:34 DC 10/28/21 22:48 0.5 MG Promethazine HCl 12.5 mg ONCE ONCE IVP 10/28/21 21:00 10/28/21 21:01 DC 10/28/21 21:06 12.5 MG Promethazine HCl 12.5 mg ONCE ONCE IVP 10/28/21 21:30 10/28/21 21:31 DC 10/28/21 22:00 12.5 MG Sodium Chloride 80 ml ONCE ONCE IV 10/28/21 22:30 10/28/21 22:50 DC 10/28/21 22:32 80 ML (PERLA,RAPHAEL K DO) Vital Signs/I&O 10/28/21 10/28/21 20:06 23:00 Temp 36.9 36.9 Pulse 97 90 Resp 18 20 B/P (MAP) 155/93 (113) 182/97 Pulse Ox 98 94 O2 Delivery Room Air Room Air (PERLA,RAPHAEL K DO) Blood Pressure Mean: 113 Departure Communication (Admissions) Family Conversation NAME: KE[facility]IRRE [facility] REC#: [id number] PT STATUS: REG ER : 1950 PHYSICIAN: JARED ODELL TURKEY PICKER ADMIT DATE: 10/28/21/ER Signed Date of Exam:10/28/21 CT ANGIO ABDOMEN/PELV W PROCEDURE: CT angio abdomen/pelvis with. TECHNIQUE: Multiple contiguous axial images were obtained through the abdomen and pelvis after the uneventful bolus administration of intravenous contrast. Sagittal and coronal MIP reconstructions with then performed. All CT scans use one or more of the following dose optimizing techniques: automated exposure control, MA and/or KvP adjustment based on patient size and exam type or iterative reconstruction. INDICATION: Generalized abdominal pain, epigastric pain, postprandial pain. COMPARISON: None. FINDINGS: There is moderate atherosclerotic disease of the abdominal aorta. Visceral branch vessels appear widely patent. There is no solid organ or bowel ischemia. There is no aneurysm or dissection. There is mild nonspecific distention of multiple small bowel loops without obvious transition. This could represent a generalized ileus or partial obstruction. The colon is decompressed. There is trace ascites in the pelvis. There is no free air. There is no mesenteric or retroperitoneal lymphadenopathy. Lung bases are clear. The gallbladder, solid organs and urinary bladder are unremarkable. The uterus is surgically absent. Osseous structures are age-appropriate. IMPRESSION: 1. Atherosclerosis of the abdominal aorta without evidence of aneurysm, dissection or occlusion. 2. Patent and visceral branch vessels. Specifically, the SMA is grossly unremarkable. There is no solid organ or bowel ischemia. 3. Mild distention of multiple small bowel loops containing fluid; possibly enteritis, early obstruction or ileus. 4. Trace pelvic ascites. 5. No free air or abscess. Dictated by: Dictated on workstation # [id number] Dict: 10/28/212235 Trans: 10/28/212243 [facility] [id number] Interpreted by: KOSTA BAHENA Electronically signed by: KOSTA BAHENA 10/28/218 2-No relief with a GI cocktail 50 then 75mcg fentanyl or 25mg phenergan. Will try 0.5mg lorazepam. She had an abdominal ultrasound in November 2020 showing a normal-appearing gallbladder without stones. Differential includes peptic ulcer disease (though she had no improvement with a GI cocktail) or biliary dyski nesia. Labs and CT have ruled out pancreatitis. Superior mesenteric artery is patent. She seems in quite a a lot of psychological distress from this. (JARED ODELL APRN) Impression Primary Impression: Epigastric abdominal pain Disposition: HOME, SELF-CARE Condition: Stable Departure-Patient Inst. Decision time for Depature: 22:35 (JARED ODELL APRN) Referrals: [facility] [place] (PCP) Primary Care Physician JAVIER MOSS (Family) Primary Care Physician MAZIN WALDEN MD Patient Instructions: Abdominal Pain, Adult ED Add. Discharge Instructions: 1. Clear liquids for 24 hours. Call to [facility] Saturday morning appointment to be seen for follow-up. All discharge instructions reviewed with patient and/or family. Voiced understanding. ATTENDING PHYSICIAN NOTE: I WAS PHYSICALLY PRESENT ER PHYSICIAN WHEN THIS PATIENT WAS IN ER, BUT I WAS NOT INVOLVED IN ANY DECISION MAKING OR ANY CARE OF THIS PATIENT. (RAPHAEL DUNCAN DO) Copy Copies To 1: MAZIN WALDEN MD, PETER J APRN Oct 28, 2021 21:27 RAPHAEL DUNCAN DO Oct 29, 2021 00:29
[2021-10-28] MEDS ORDERED: LIDOCAINE 2% VISCOUS 15 ML UDC PO ONE (21:30)
[2021-10-28] MEDS ORDERED: ANTACID SUSP 30 ML UDC (MYLANTA) PO ONE (21:30)
[2021-10-28] MEDS ORDERED: fentaNYL INJ 100 MCG/2 ML AMP ONE (21:47)
[2021-10-28] MEDS ORDERED: IOHEXOL 350 MG/ML 100 ML (OMNIPAQUE 350) VIAL IV ONE (22:30)
[2021-10-28] MEDS ORDERED: NS 100 ML (IVPB) BAG IV ONE (22:30)
[2021-10-28] MEDS ORDERED: HOLD METFORMIN - RECEIVED CONTRAST 20 ML VIAL IV SCH (22:30)
--- NOTE | 2021-10-28 22:44 | Diagnostic Imaging Report ---
PROCEDURE: CT angio abdomen/pelvis with. TECHNIQUE: Multiple contiguous axial images were obtained through the abdomen and pelvis after the uneventful bolus administration of intravenous contrast. Sagittal and coronal MIP reconstructions with then performed. All CT scans use one or more of the following dose optimizing techniques: automated exposure control, MA and/or KvP adjustment based on patient size and exam type or iterative reconstruction. INDICATION: Generalized abdominal pain, epigastric pain, postprandial pain. COMPARISON: None. FINDINGS: There is moderate atherosclerotic disease of the abdominal aorta. Visceral branch vessels appear widely patent. There is no solid organ or bowel ischemia. There is no aneurysm or dissection. There is mild nonspecific distention of multiple small bowel loops without obvious transition. This could represent a generalized ileus or partial obstruction. The colon is decompressed. There is trace ascites in the pelvis. There is no free air. There is no mesenteric or retroperitoneal lymphadenopathy. Lung bases are clear. The gallbladder, solid organs and urinary bladder are unremarkable. The uterus is surgically absent. Osseous structures are age-appropriate. IMPRESSION: 1. Atherosclerosis of the abdominal aorta without evidence of aneurysm, dissection or occlusion. 2. Patent and visceral branch vessels. Specifically, the SMA is grossly unremarkable. There is no solid organ or bowel ischemia. 3. Mild distention of multiple small bowel loops containing fluid; possibly enteritis, early obstruction or ileus. 4. Trace pelvic ascites. 5. No free air or abscess. Dictated by: Dictated on workstation # [id number]
[2021-10-28] MEDS ORDERED: LORazepam INJ 2 MG/ML (ATIVAN) VIAL IVP PRN (22:45)
[2021-10-28] MEDS ORDERED: cloNIDine 0.1 MG (CATAPRES) TAB PO ONE (22:45)
[2021-10-28 23:00] VITALS: BP 182/97
== END 2021-10-28 23:00 | disposition home or self-care (01) ==
LOC: EDUNIT# 19:19 → ER 19:20
DX: R10.13 Epigastric pain (principal); I25.2 Old myocardial infarction; I10 Essential (primary) hypertension; I25.10 Atherosclerotic heart disease of native coronary artery without angina pectoris; E78.00 Pure hypercholesterolemia, unspecified; K21.9 Gastro-esophageal reflux disease without esophagitis; Z79.82 Long term (current) use of aspirin; Z79.899 Other long term (current) drug therapy
CPT/HCPCS: 36415; 74174; 80053; 83690; 85025

== ENCOUNTER 2021-10-30 10:53 | Day surgery (SDC) | payer MEDICARE ==
[~2021-10-30] VITALS: Ht 162.6 cm; Wt 64.9 kg
[2021-10-30] MEDS ORDERED: LACTATED RINGERS 1,000 ML IV STA (10:56)
[2021-10-30] MEDS ORDERED: LACTATED RINGERS 1,000 ML IV ONE (10:58)
[2021-10-30] MEDS ORDERED: HURRICAINE EXT TUBE (BENZOCAINE) XX PRN (11:00)
[2021-10-30 11:10] VITALS: BP 163/85
--- NOTE | 2021-10-30 11:19 | Progress Note-Pre Operative ---
Pre-Operative Progress Note H&P Reviewed The H&P was reviewed, patient examined and no changes noted. Time Seen by Provider: 11:18 Date H&P Reviewed: Oct 30, 2021 Time H&P Reviewed: 11:18 Pre-Operative Diagnosis: Rectal bleed, chronic nausea and abd pain, VERONICA CAAL DO Oct 30, 2021 11:19
[2021-10-30] MEDS ORDERED: PROPOFOL INJECTION 50 ML IV ONE (11:55)
[2021-10-30 12:40] VITALS: BP 176/83
--- NOTE | 2021-10-30 12:42 | Progress Note-Post Operative ---
Post-Operative Progess Note Surgeon (s)/Clasp Machine Operator (s) Surgeon VERONICA LIAO DO Clasp Machine Operator: KEVYN Gomez Pre-Operative Diagnosis Rectal bleed, chronic nausea and abd pain, GERD Post-Operative Diagnosis Gastritis Hiatal hernia Zenkers's diverticulum Polyps diverticula int hemorrhoids Procedure & Operative Findings Date of Procedure 10/30/21 Procedure Performed/Findings EGD with bx Colon with snare and bx PROCEDURE NOTE: After informed consent was obtained, the patient was brought to the endoscopy suite, placed in bed in left lateral decubitus position. She was administered IV sedation by the SHIPYARD SUPERVISOR who then monitored vitals the entire time, heart rate, blood pressure and pulse ox and the scope was inserted down the mouth through the esophagus into the stomach. On the way down accidentally pushed into the Zenker's Diverticulum. Pushed into the stomach and past the antrum into the duodenum; duodenum looked good. Pulled back and did a biopsy of antrum, then retroflexed the scope, saw a very small hiatal hernia. Took a picture of this and then did a biopsy of the body of the stomach. Then pulled the scope into the GE junction, took another picture of the hiatal hernia and then did a biopsy of the GE junction. Pushed the scope back into the stomach, suctioned all the air out of the stomach. At this point pulled the scope up the esophagus and out the mouth. Switched camera, switched gloves, went down below and started the colonoscopy. Pushed all the way into about 160 cm to get all the way to cecum. On the way in noted a polyp in the descening colon and did a snare polypectomy to remove it. The snare appeared to cut through polyp, but elected to grab it with biopsy forceps. Once in the cecum took a picture of the appendiceal orifice and noted the ileocecal valve. Next slowly withdrew the scope, insufflating to look circumferentially at the rangel starting in the cecum, up the ascending colon to the hepatic flexure, then down the transverse colon. Saw a polyp here and elected to just remove it with the biopsy forceps, it was small. Continued to the splenic flexure, into the descending colon and down into the sigmoid; saw some small diverticula through here. Finally into the rectum, retroflexed in the rectal vault, saw some minimal internal hemorrhoids and took a picture of them. The patient tolerated the procedure and she recovered in the endoscopy suite. Anesthesia Type IV sedation by SHIPYARD SUPERVISOR Estimated Blood Loss Estimated blood loss (mL): scant Specimens/Packing Specimens Removed antral bx body of stomach bx GE jxn bx Desc colon polyp x 2 transverse colon polyp VERONICA LIAO DO Oct 30, 2021 12:42
--- NOTE | 2021-10-30 12:44 | Endoscopy Discharge Instruct ---
Endo Procedure/Findings Findings 1.: Hiatal Hernia, Gastritis 2.: Polyp 3.: Diverticulosis 4.: Internal Hemorrhoids Discharge Instructions - Activity: You might feel a little sleepy until tomorrow. This is due to the medicine you received to relax you. Until tomorrow, you should: NOT drive a car, operate machinery or power tools. NOT drink any alcoholic beverages. NOT make any important decisions or sign importortant papers. Do not return to work until tomorrow, unless otherwise instructed. Resume previous activities tomorrow. Diet: Start by taking liquids. If you tolerate liquids, advance to solid food. 1.: EGD in 3 years 2.: Colonscopy in 5 years Notify Physician - If you experience excessive bleeding, unusual abdominal pain, fever, or chest pain, contact your doctor immediately. VERONICA LIAO DO Oct 30, 2021 12:44
[2021-10-30 12:45] VITALS: BP 177/83
[2021-10-30 12:50] VITALS: BP 172/88
[2021-10-30] MEDS ORDERED: HEParin (CENTRAL IV FLUSH) 500 UNIT/5 ML SYR IV ONE (13:15)
[2021-10-30 13:20] VITALS: BP 168/84
[2021-10-30] MEDS ORDERED: HEParin (CENTRAL IV FLUSH) 500 UNIT/5 ML SYR ONE (13:27)
--- NOTE | 2021-10-30 13:49 | Anesthesia-General Post-Op ---
MAC Patient Condition Mental Status/LOC: Same as Preop Cardiovascular: Satisfactory Nausea/Vomiting: Absent Respiratory: Satisfactory Pain: Controlled Complications: Absent Post Op Complications Complications None Follow Up Care/Instructions Patient Instructions None needed. Anesthesiology Discharge Order Discharge Order Patient is doing well, no complaints, stable vital signs, no apparent adverse anesthesia problems. No complications reported per nursing. KATHRYN OLIVARES CRNA Oct 30, 2021 13:49
[2021-10-30 14:00] VITALS: BP 168/84
== END 2021-10-30 14:00 | disposition home or self-care (01) ==
LOC: ENDO 10:53
PROVIDERS: ATTEND Surgery
DX: K29.51 Unspecified chronic gastritis with bleeding (principal); K44.9 Diaphragmatic hernia without obstruction or gangrene; K22.5 Diverticulum of esophagus, acquired; K21.01 Gastro-esophageal reflux disease with esophagitis, with bleeding; D12.4 Benign neoplasm of descending colon; D12.3 Benign neoplasm of transverse colon; D12.8 Benign neoplasm of rectum; K57.31 Diverticulosis of large intestine without perforation or abscess with bleeding; K64.8 Other hemorrhoids; I12.9 Hypertensive chronic kidney disease with stage 1 through stage 4 chronic kidney disease, or unspecified chronic kidney disease; E11.22 Type 2 diabetes mellitus with diabetic chronic kidney disease; N18.30 Chronic kidney disease, stage 3 unspecified; E78.2 Mixed hyperlipidemia; I25.10 Atherosclerotic heart disease of native coronary artery without angina pectoris; I95.9 Hypotension, unspecified; Z95.5 Presence of coronary angioplasty implant and graft; Z79.82 Long term (current) use of aspirin; Z79.899 Other long term (current) drug therapy

== ENCOUNTER → 2021-11-01 | Outpatient (CLI) | payer MEDICARE ==
--- NOTE | 2021-11-01 08:21 | Diagnostic Imaging Report ---
Indication: Epigastric pain Gallbladder sonography performed in the routine fashion. The study is technically limited. Liver shows no focal lesion, portions of the liver are not well seen. Gallbladder shows no stones or definite wall thickening. Common duct was not seen due to overlying gas. Pancreas and IVC and aorta were not well seen due to overlying gas. Portal vein is patent. Right kidney appear unremarkable except for several small cysts, the right kidney measured 9.6 cm in length and show no hydronephrosis. IMPRESSION: Technically limited study. No definite gallstones or wall thickening. Incidental right renal cysts. Dictated by: Dictated on workstation # [id number]
== END ==
LOC: RAD 07:15
PROVIDERS: ATTEND Surgery
DX: N28.1 Cyst of kidney, acquired (principal)
CPT/HCPCS: 76705

== ENCOUNTER → 2021-11-02 | Outpatient (CLI) | payer MEDICARE ==
[~2021-11-02] MED LIST changes: +CATHETER FLUSH 10 ML SYR IV PRN
--- NOTE | 2021-11-02 14:09 | Diagnostic Imaging Report ---
INDICATION: Epigastric pain. TECHNIQUE: Patient was administered 5.3 mCi technetium-99m Choletec, and imaging over the abdomen was performed. At 1 hour, patient ingested 8 ounces of Ensure, and the gallbladder ejection fraction was calculated. FINDINGS: There is homogeneous uptake of activity by the liver. There is prompt excretion of activity into the common duct and gallbladder. There is passage of activity into the small bowel. Gallbladder ejection fraction is normal at 46%. IMPRESSION: Normal HIDA scan and gallbladder ejection fraction. Dictated by: Dictated on workstation # [id number]
== END ==
LOC: CARD 10:00
PROVIDERS: ATTEND Surgery
DX: R10.13 Epigastric pain (principal)
CPT/HCPCS: 78227; A9537

== ENCOUNTER 2021-11-05 16:41 | Emergency (ER) | payer MEDICARE ==
[~2021-11-05] VITALS: Ht 162.6 cm; Wt 59.0 kg
[~2021-11-05 16:41] MED LIST changes: -CATHETER FLUSH 10 ML SYR IV PRN
--- OUTSIDE RECORDS SUMMARY | 2021-11-05 16:48 | XMS REPORT | Clinical Summary ---
Author Author [facility] Organization [facility] Address Unknown Phone Unavailable Care Team Providers Care Client Support Manager Name Role Phone No Pcp, Na Unavailable Unavailable Gustavo Moulton PA-C PCP Source Comments Some departments are not documenting in the electronic medical record. If you d o not see the information that you expected, contact Release of Information in [facility] [employer] Information Management department at [phone] for further assistan ce in locating additional records.[facility] Allergies Comments Active Allergy Reactions Severity Noted Date Carbamazepine RASH Medium 03/09/2019 Cephalothin RASH Medium 03/09/2019 Penicillin G RASH Medium 03/09/2019 Penicillins RASH Medium 12/22/2019 Clopidogrel RASH Medium 03/09/2019 Carisoprodol RASH Medium 03/09/2019 Medications End Date Status Medication Sig Dispensed Refills Start Date Active amLODIPine (NORVASC) 10 6 mg tablet 9 Active butalbital-acetaminophen- as Needed. 0 10/22 caffeine (FIORICET WITH 9 CODEINE) 20-509-00-30 mg capsule Active folic acid (FOLVITE) 1 [...] she follow up with her PCP and fisheries specialist for this history. H/O: stroke 02/03/2021 [...] that she follow-up with her PCP and race relations professor for further evaluation of abnormalities noted on [...] Diagnosis: 1. 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 Pain and enlargement of breast of [facility] breast Procedure: Left lumpectomy, 11/18/2008 History: [...] Imaging: Mammogram: - Screening mammograms 06/20/2018 ([facility]ia [facility]) showed heterogeneously dense breast tissue. Po st-op changes were seen in the left breast including coarse calcifications in this region seen previously, were again evident and did not seem to have changed significantly. There was no evidence for recurrent malignancy in th is region. There were no other concerning findings seen. BIRADS 1. - Right diagnostic mammogram 08/14/2018 ([facility]ia [facility]) showed scattered benign-appearing parenchymal and vascular calcifications. No mass or malignant appearing calcifications w ere seen. The right axilla was unremarkable. BIRADS 2. Ultrasound: - Right breast ultrasound 08/14/2018 ([facility]) no abnormal findings. BIRADS 1. MRI: - Breast MRI 03/03/2019 ([facility]ia [facility]): Mild background glandularity and background [...] Other Imaging: - CT chest 12/05/2018 ([facility]ia [facility] [place]) show ed no evidence of thoracic aortic [...] was identified. 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
[2021-11-05] MEDS ORDERED: NS IV 1000 ML 1,000 ML IV SCH (17:15)
[2021-11-05 17:23] LABS: BASOPHILS # (AUTO) 0.1 10^3/uL (0.0-0.1); BASOPHILS % (AUTO) 1 % (0-10); EOSINOPHILS # (AUTO) 0.1 10^3/uL (0.0-0.3); EOSINOPHILS % (AUTO) 1 % (0-10); HEMATOCRIT 38 % (35-52); HEMOGLOBIN 12.6 g/dL (11.5-16.0); LYMPHOCYTES # (AUTO) 2.3 10^3/uL (1.0-4.0); LYMPHOCYTES % (AUTO) 27 % (12-44); MEAN CORPUSCULAR HEMOGLOBIN 29 pg (25-34); MEAN CORPUSCULAR HGB CONC 33 g/dL (32-36); MEAN CORPUSCULAR VOLUME 88 fL (80-99); MEAN PLATELET VOLUME 9.3 fL (9.0-12.2); MONOCYTES # (AUTO) 0.8 10^3/uL (0.0-1.0); MONOCYTES % (AUTO) 10 % (0-12); NEUTROPHILS # (AUTO) 5.1 10^3/uL (1.8-7.8); NEUTROPHILS % (AUTO) 61 % (42-75); PLATELET COUNT 340 10^3/uL (130-400); WHITE BLOOD COUNT 8.3 10^3/uL (4.3-11.0)
[2021-11-05] MEDS ORDERED: ONDANSETRON 4 MG/2 ML (SDV) Z0FRAN IVP STA (17:25)
--- NOTE | 2021-11-05 17:25 | ED Abdominal Pain ---
General Stated Complaint: PSYCH EVAL History of Present Illness Date Seen by Provider: Nov 05, 2021 Time Seen by Provider: 16:45 Initial Comments 73 year old female presents for abdominal pain, diarrhea and nausea that has been present for 6 months. She recently had a work up for gallbladder and EGD/Colonoscopy, she has not received the results. She took Zofran earlier today for nausea and 2 Hydrocodone at 1500. The police were called to her home because she sent a text to her granddaughter that made family believe she is suicidal. Patient brought by EMS. Patient denies thoughts to harm herself, she is frustrated with continued pain and no answers. She worked at [employer] but has not been able to work due to diarrhea. Timing/Duration: Intermittent (6 months) Severity/Quality: Moderate Location: Generalized Abdomen Radiation: No Radiation Associated Symptoms: No Back Pain, No Chest Pain, No Fever/Chills, No Fatigue; Nausea/Vomiting; No Swelling/Mass in Abdomen; Other (abd pain) Allergies and Home Medications Allergies Coded Allergies: clopidogrel (Verified Allergy, Severe, BLOOD CLOTS, 11/27/18) Penicillins (Verified Allergy, Mild, RASH, 11/27/18) carisoprodol (Verified Allergy, Mild, RASH, 11/27/18) cephalexin (Verified Allergy, Mild, RASH, 11/27/18) ketorolac (Verified Allergy, Mild, RASH, 11/27/18) prochlorperazine (Verified Allergy, Mild, RASH, 11/27/18) Carbamates (Verified Allergy, Unknown, Rash, 05/28/19) Patient Home Medication List Home Medication List Reviewed: Yes Albuterol Sulfate (Albuterol Sulfate) 2.5 Mg/3 Ml Vial.neb, 2 PUFF INH Q4H PRN for SHORTNESS OF BREATH Prescribed by: DASIA FRANKLIN on 11/25/20 1101 Amlodipine Besylate (Amlodipine Besylate) 10 Mg Tablet, 10 MG PO DAILY, (Reported) Entered as Reported by: ETHEL JONES on 11/14/20 1527 Aspirin (Aspirin EC) 81 Mg Tablet.dr, 81 MG PO DAILY Prescribed by: OLIVE ISAAC on 11/21/20 1010 Atorvastatin Calcium (Atorvastatin Calcium) 40 Mg Tablet, 40 MG PO HS, (Reported) Entered as Reported by: REMA LIZAMA on 09/03/19 1408 Cholecalciferol (Vitamin D3) (Vitamin D3) 50 Mcg Tablet, 50 MCG PO DAILY, (Reported) Entered as Reported by: ETHEL JONES on 11/14/20 1527 Codeine/Butalbital/ASA/Caffein (QSG-Dymwap-Bmvm-Cod #3 Capsule) 1 Each Capsule, 1 EACH PO DAILY PRN for MIGRAINE, (Reported) Entered as Reported by: ETHEL JONES on 11/14/20 1527 Duloxetine HCl (Cymbalta) 30 Mg Capsule.dr, 30 MG PO DAILY, (Reported) Entered as Reported by: BARRETT DANIELLE on 11/27/18 0949 Folic Acid (Folic Acid) 1 Mg Tablet, 1 MG PO DAILY, (Reported) Entered as Reported by: NAOMY ESTRADA on 05/28/19 1246 Hydroxychloroquine Sulfate (Hydroxychloroquine Sulfate) 200 Mg Tablet, 200 MG PO BID, (Reported) Entered as Reported by: NAOMY ESTRADA on 05/28/19 1252 Hyoscyamine Sulfate (Levsin-Sl) 0.125 Mg Tab.subl, 0.25 MG SL Q4H Prescribed by: RAPHAEL DUNCAN on 11/26/202106 Levetiracetam (Levetiracetam) 500 Mg Tablet, 500 MG PO BID Prescribed by: OLIEV ISAAC on 11/21/20 1010 Metoprolol Succinate (Metoprolol Succinate) 100 Mg Tab.er.24h, 100 MG PO DAILY, (Reported) Entered as Reported by: REMA LIZAMA on 09/03/19 1408 Ondansetron (Ondansetron Odt) 4 Mg Tab.rapdis, 4 MG PO Q4H PRN for NAUSEA-1ST LINE Prescribed by: DASIA FRANKLIN on 11/25/20 1101 Ondansetron (Ondansetron Odt) 8 Mg Tab.rapdis, 8 MG PO Q6H Prescribed by: RAPHAEL DUNCAN on 11/26/202106 Pantoprazole Sodium (Pantoprazole Sodium) 40 Mg Tablet.dr, 40 MG PO DAILY, (Reported) Entered as Reported by: BARRETT DANIELLE on 11/27/18 0949 Pantoprazole Sodium (Protonix) 40 Mg Tablet.dr, 40 MG PO DAILY Prescribed by: RAPHAEL DUNCAN on 11/26/202106 Prednisone (Prednisone) 20 Mg Tab, 40 MG PO DAILY Prescribed by: JARED ODELL on 03/26/21 152 Topiramate (Topiramate) 50 Mg Tablet, 75 MG PO BID, (Reported) Entered as Reported by: BARRETT DANIELLE on 11/27/18 0962 Review of Systems Review of Systems Constitutional: no symptoms reported, see HPI Gastrointestinal: See HPI, Abdominal Pain, Diarrhea, Poor Appetite, Vomiting Psychiatric/Neurological: See HPI, Depressed All Other Systems Reviewed Negative Unless Noted: Yes Past Tequjib-Oxcwae-Bmdfme Hx Immunizations Up To Date Tetanus Booster (TDap): Unknown First/Initial COVID19 Vaccinat: 03/10 Second COVID19 Vaccination Enrique: 04/10 Third COVID19 Vaccination Date: 03/10 Seasonal Allergies Seasonal Allergies: No Past Medical History Surgery/Hospitalization HX: MS HX, STROKE HX, PANCREATITIS, PNEUMONIA HX, COVID HX Surgeries: Yes (R CTR, espohageal ligation x2, Hernia, L RCR, L TKR, laparotomy, MRSA infec) Abdominal, Breast, Cardiac, Coronary Stent, Hysterectomy, Joint Replacement, Oophorectomy, Orthopedic, Thyroidectomy Respiratory: Yes (COVID-19 November 07, 2020-ADMITTED WITH PNEUMONIA) Pneumonia Currently Using CPAP: No Currently Using BIPAP: No Cardiac: Yes (HX HEART CATH-STENT;MILD BILAT CAROTID STENOSIS;DVT L ARM DUE TO PICC LINE) Coronary Artery Disease, Deep Vein Thrombosis, Heart Attack, High Cholesterol, Hypertension, Peripheral Vascular Neurological: Yes Headaches /Migraines, Neuropathy CANE FEEDER History: Hysterectomy, Menopausal Sexually Transmitted Disease: No HIV/AIDS: No Genitourinary: Yes (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,STAGE 2-KIDNEY DISEASE;DIABETIC NEPHROPA ) Bladder Infection, Renal Failure, Dialysis Gastrointestinal: Yes (HX GI BLEED, zenkers syndrome-chokes easily, hx hep A;LIVER INJURY/TRAUMA) Abdominal Hernia, Gastroesophageal Reflux, Gastrointestinal Bleed, Esophageal Varices, Hepatitis Musculoskeletal: Yes (OSTEOARTHRITIS, BULGING DISCS) Arthritis, Chronic Back Pain Endocrine: Yes (partial thyroidectomy) Hypothyroidsim HEENT: Yes (GLASSES, UPPER DENTURES) Glaucoma Loss of Vision: Bilateral Cancer: Yes Breast Did You Recieve Any Treatments: Yes What Type of Treatment Did You: Radiation, Surgical Intervention Psychosocial: No Integumentary: No Blood Disorders: Yes (IRON DEFFICIENCY ANEMIA-GETS IRON INFUSIONS) Adverse Reaction/Blood Tranf: No (HAS HAD BLOOD WITH NO REACTION) Family Medical History Reviewed Nursing Family Hx Hypertension G8 BROTHER Not obtainable due to adoption 19 FATHER Heart Disease, Hypertension ADDITIONAL PAST SURGICAL HISTORY -ZENKER'S DIVERTICULUM SURGERY X 2 -ABDOMINAL HERNIA REPAIR WITH MESH -MESH REMOVAL AND LYSIS OF ADHESIONS -HYST/BSO -LOOP RECORDER -PORT LEFT CHEST -LEFT BREAST LUMPECTOMY -CARDIAC CATH WITH STENT X 1 TO RCA 2010 -PORT LEFT CHEST -RIGHT SHOULDER REPLACEMENT -RENAL ARTERY STENOSIS WITH STENT 2013 Physical Exam Vital Signs Vital Signs - First Documented 11/05/21 16:45 Temp 36.6 Pulse 115 Resp 22 B/P (MAP) 178/103 (128) Pulse Ox 99 O2 Delivery Room Air Capillary Refill : Height/Weight/BMI Height: 5'4.00" Weight: 216lbs. 4.2oz. 98.266014uc; 24.54 BMI Method:Stated General Appearance: WD/WN, no apparent distress Neck: non-tender, full range of motion, supple, normal inspection Respiratory: chest non-tender, lungs clear, normal breath sounds Cardiovascular: normal peripheral pulses, regular rate, rhythm, no edema Gastrointestinal: normal bowel sounds, non tender, soft, no pulsatile mass; No distended, No guarding; rebound, tenderness (generalized) Neurologic/Psychiatric: no motor/sensory deficits, alert, normal mood/affect, oriented x 3 Skin: normal color, cyanosis Focused Exam Lactate Level 11/05/21 17:05: Lactic Acid Level 0.74 Lactic Acid Level Laboratory Tests Test 11/05/21 17:05 Lactic Acid Level 0.74 MMOL/L (0.50-2.00) Progress/Results/Core Measures Results/Orders Lab Results Laboratory Tests Test 11/05/21 17:05 11/05/21 17:14 11/05/21 18:30 Range/Units White Blood Count 8.3 4.3-11.0 10^3/uL Red Blood Count 4.33 3.80-5.11 10^6/uL Hemoglobin 12.6 11.5-16.0 g/dL Hematocrit 38 35-52 % Mean Corpuscular Volume 88 80-99 fL Mean Corpuscular Hemoglobin 29 25-34 pg Mean Corpuscular Hemoglobin Concent 33 32-36 g/dL Red Cell Distribution Width 13.2 10.0-14.5 % Platelet Count 340 130-400 10^3/uL Mean Platelet Volume 9.3 9.0-12.2 fL Immature Granulocyte % (Auto) 0 % Neutrophils (%) (Auto) 61 42-75 % Lymphocytes (%) (Auto) 27 12-44 % Monocytes (%) (Auto) 10 0-12 % Eosinophils (%) (Auto) 1 0-10 % Basophils (%) (Auto) 1 0-10 % Neutrophils # (Auto) 5.1 1.8-7.8 10^3/uL Lymphocytes # (Auto) 2.3 1.0-4.0 10^3/uL Monocytes # (Auto) 0.8 0.0-1.0 10^3/uL Eosinophils # (Auto) 0.1 0.0-0.3 10^3/uL Basophils # (Auto) 0.1 0.0-0.1 10^3/uL Immature Granulocyte # (Auto) 0.0 0.0-0.1 10^3/uL Prothrombin Time 12.9 12.2-14.7 SEC INR Comment 0.9 0.8-1.4 Activated Partial Thromboplast Time 61 H 24-35 SEC Sodium Level 138 135-145 MMOL/L Potassium Level 3.7 3.6-5.0 MMOL/L Chloride Level 108 H 98-107 MMOL/L Carbon Dioxide Level 19 L 21-32 MMOL/L Anion Gap 11 5-14 MMOL/L Blood Urea Nitrogen 17 7-18 MG/DL Creatinine 1.12 0.60-1.30 MG/DL Estimat Glomerular Filtration Rate 52 BUN/Creatinine Ratio 15 Glucose Level 135 H 70-105 MG/DL Lactic Acid Level 0.74 0.50-2.00 MMOL/L Calcium Level 8.6 8.5-10.1 MG/DL Corrected Calcium 8.9 8.5-10.1 MG/DL Total Bilirubin 0.3 0.1-1.0 MG/DL Aspartate Amino Transf (AST/SGOT) 20 5-34 U/L Alanine Aminotransferase (ALT/SGPT) 27 0-55 U/L Alkaline Phosphatase 122 40-136 U/L Total Protein 6.4 6.4-8.2 GM/DL Albumin 3.6 3.2-4.5 GM/DL Influenza Type A (RT-PCR) Not Detected Not Detecte Influenza Type B (RT-PCR) Not Detected Not Detecte SARS-CoV-2 RNA (RT-PCR) Not Detected Not Detecte Urine Color YELLOW Urine Clarity CLEAR Urine pH 6.0 5-9 Urine Specific [place] >=1.030 1.016-1.022 Urine Protein 2+ H NEGATIVE Urine Glucose (UA) NEGATIVE NEGATIVE Urine Ketones NEGATIVE NEGATIVE Urine Nitrite NEGATIVE NEGATIVE Urine Bilirubin NEGATIVE NEGATIVE Urine Urobilinogen 0.2 < = 1.0 MG/DL Urine Leukocyte Esterase TRACE H NEGATIVE Urine RBC (Auto) NEGATIVE NEGATIVE Urine RBC NONE /HPF Urine WBC 2-5 /HPF Urine Squamous Epithelial Cells 2-5 /HPF Urine Crystals NONE /LPF Urine Bacteria NEGATIVE /HPF Urine Casts NONE /LPF Urine Mucus NEGATIVE /LPF Urine Culture Indicated NO My Orders Orders - AUSTIN IBANEZ Cbc With Automated Diff (11/05/21 17:06) Comprehensive Metabolic Panel (11/05/21 17:06) Urinalysis (11/05/21 17:06) Urine Culture (11/05/21 17:06) Protime With Inr (11/05/21 17:06) Partial Thromboplastin Time (11/05/21 17:06) Ed Iv/Invasive Line Start (11/05/21 17:06) Lactic Acid Analyzer (11/05/21 17:06) Influenza A And B By Pcr (11/05/21 17:06) Ns Iv 1000 Ml (Sodium Chloride 0.9%) (11/05/21 17:15) Covid 19 Inhouse Test (11/05/21 17:06) Ondansetron Injection (Zofran Injectio (11/05/21 17:25) Hyoscyamine Sl Tablet (Levsin Sl Tablet) (11/05/21 17:30) Diphenoxylate/Atropine Tablet (Lomotil T (11/05/21 18:27) Medications Given in ED Current Medications Medications Dose Ordered Sig/Ana María Route Start Time Stop Time Status Last Admin Dose Admin Hyoscyamine Sulfate 0.125 mg ONCE ONCE SL 11/05/21 17:30 11/05/21 17:31 DC 11/05/21 17:32 0.125 MG Vital Signs/I&O 11/05/21 11/05/21 16:45 19:30 Temp 36.6 Pulse 115 98 Resp 22 20 B/P (MAP) 178/103 (128) 152/86 Pulse Ox 99 97 O2 Delivery Room Air Room Air Progress Progress Note : Time: 16:45 Progress Note patient seen and evaluated, does not voice any concerns of suicidal or homicidal ideations, she is tired of living with abdominal pain. She voices understanding that she made comments to her granddaughter that lead the family to believe she was going to do self-harm. She works at [employer] and has not been able to, after having diarrhea twice, while working and not making it to the bathroom. Will get labs and review previous studies. Son present in room, they are verbally argumentative with each other. She is mad because no one called her 11/03/21 with her test results. 174 labs all essentially normal. No nausea or vomiting, after Zofran and Levsin. Discussed all her recent studies with her. She has appt 11/07/[address] Liao. 1845 no vomiting or diarrhea while here, patient verbally aggressive and cautioned that we have worked up all emergent causes of her complaints. She must keep her appts with Dr. Liao and see her PCP at [facility]. They could consider referral to a GI specialist. Discharge instructions and return precautions reviewed with the patient and her son. She drank 2 glasses of water her, no vomiting or diarrhea. Departure Impression Primary Impression: Abdominal pain, vomiting, and diarrhea Additional Impression: Hopelessness Disposition: 01 HOME, SELF-CARE Condition: Stable Departure-Patient Inst. Decision time for Depature: 18:45 Referrals: [facility] (PCP) Primary Care Physician JAVIER MOSS (Family) Primary Care Physician Patient Instructions: Chronic Pain (DC), Severe Abdominal Pain, Adult (DC) Add. Discharge Instructions: Clear liquid diet for the next 4 to 6 hours then bland diet as tolerated. Keep your scheduled appointment for Saturday with Dr. Liao for further follow- up. Consider evaluation with a hardwood floor installation helper if symptoms are not improving or worsen. Take your home medications as prescribed. If you feel thoughts to harm yourself or others call [phone], call your family or 911. Return to the emergency department for new, urgent healthcare needs. Copy Copies To 1: JOSIANE KITCHEN DO; VERONICA LIAO AMY ARNP Nov 05, 2021 17:24
[2021-11-05] MEDS ORDERED: HYOSCYAMINE 0.125 MG (LEVSIN) TAB SL ONE (17:30)
[2021-11-05 17:35] LABS: INR 0.9 (0.8-1.4); PROTHROMBIN TIME PATIENT 12.9 SEC (12.2-14.7)
[2021-11-05 17:37] LABS: ALBUMIN 3.6 GM/DL (3.2-4.5); POTASSIUM 3.7 MMOL/L (3.6-5.0)
[2021-11-05 17:38] LABS: CALCIUM 8.6 MG/DL (8.5-10.1)
[2021-11-05 17:39] LABS: TOTAL PROTEIN 6.4 GM/DL (6.4-8.2)
[2021-11-05 17:41] LABS: BILIRUBIN,TOTAL 0.3 MG/DL (0.1-1.0)
[2021-11-05 17:43] LABS: CREATININE SERUM 1.12 MG/DL (0.60-1.30)
[2021-11-05] MEDS ORDERED: DIPHENOXYLATE/ATROPINE 2.5MG/0.025MG (LOMOTIL) TAB PO STA (18:27)
[2021-11-05 18:37] LABS: BILIRUBIN,URINE NEGATIVE (NEGATIVE); GLUCOSE, URINE (UA) NEGATIVE (NEGATIVE); KETONES,URINE NEGATIVE (NEGATIVE); LEUKOCYTE ESTERASE ,URINE TRACE (NEGATIVE); NITRITE,URINE NEGATIVE (NEGATIVE); PROTEIN,URINE 2+ (NEGATIVE)
[2021-11-05 18:47] LABS: BACTERIA,URINE NEGATIVE /HPF; CLARITY,URINE CLEAR; COLOR,URINE YELLOW
[2021-11-05 19:30] VITALS: BP 152/86
== END 2021-11-05 19:30 | disposition home or self-care (01) ==
LOC: EDUNIT# 16:41 → ER 16:43
DX: R10.84 Generalized abdominal pain (principal); R11.2 Nausea with vomiting, unspecified; R19.7 Diarrhea, unspecified; R45.89 Other symptoms and signs involving emotional state; I25.2 Old myocardial infarction; I10 Essential (primary) hypertension; I25.10 Atherosclerotic heart disease of native coronary artery without angina pectoris; E78.00 Pure hypercholesterolemia, unspecified; K21.9 Gastro-esophageal reflux disease without esophagitis; Z20.822 Contact with and (suspected) exposure to COVID-19; Z79.82 Long term (current) use of aspirin; Z79.899 Other long term (current) drug therapy
CPT/HCPCS: 36415; 80053; 81000; 83605; 85025; 85610; 85730; 87088; 87636; 96361; 96374

== ENCOUNTER 2021-11-16 17:34 | Emergency (ER) | payer MEDICARE ==
[~2021-11-16] VITALS: Ht 162 cm; Wt 60.7 kg
[2021-11-16 17:53] LABS: BASOPHILS # (AUTO) 0.1 10^3/uL (0.0-0.1); BASOPHILS % (AUTO) 1 % (0-10); EOSINOPHILS # (AUTO) 0.2 10^3/uL (0.0-0.3); EOSINOPHILS % (AUTO) 3 % (0-10); HEMATOCRIT 31 % (35-52); HEMOGLOBIN 9.6 g/dL (11.5-16.0); LYMPHOCYTES # (AUTO) 1.5 10^3/uL (1.0-4.0); LYMPHOCYTES % (AUTO) 28 % (12-44); MEAN CORPUSCULAR HEMOGLOBIN 29 pg (25-34); MEAN CORPUSCULAR HGB CONC 31 g/dL (32-36); MEAN CORPUSCULAR VOLUME 95 fL (80-99); MONOCYTES # (AUTO) 0.6 10^3/uL (0.0-1.0); MONOCYTES % (AUTO) 11 % (0-12); NEUTROPHILS % (AUTO) 56 % (42-75); PLATELET COUNT 216 10^3/uL (130-400); WHITE BLOOD COUNT 5.4 10^3/uL (4.3-11.0)
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
[2021-11-16 18:02] LABS: ALBUMIN 3.1 GM/DL (3.2-4.5); POTASSIUM 4.2 MMOL/L (3.6-5.0)
[2021-11-16 18:03] LABS: CALCIUM 7.6 MG/DL (8.5-10.1)
[2021-11-16 18:04] LABS: TOTAL PROTEIN 5.6 GM/DL (6.4-8.2)
[2021-11-16 18:06] LABS: BILIRUBIN,TOTAL 0.2 MG/DL (0.1-1.0)
[2021-11-16 18:08] LABS: CREATININE SERUM 1.45 MG/DL (0.60-1.30)
[2021-11-16 18:11] LABS: MAGNESIUM 2.3 MG/DL (1.6-2.4)
[2021-11-16 18:12] LABS: LIPASE 43 U/L (8-78)
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
[2021-11-16] MEDS ORDERED: fentaNYL INJ 100 MCG/2 ML AMP ONE (18:42)
[2021-11-16] MEDS ORDERED: fentaNYL INJ 100 MCG/2 ML AMP IVP ONE (18:45)
[2021-11-16 19:18] VITALS: BP 115/83
== END 2021-11-16 19:18 | disposition home or self-care (01) ==
LOC: EDUNIT# 17:34 → ER 17:38
DX: T14.8XXA Other injury of unspecified body region, initial encounter (principal); M54.50 Low back pain, unspecified; R60.0 Localized edema; I12.9 Hypertensive chronic kidney disease with stage 1 through stage 4 chronic kidney disease, or unspecified chronic kidney disease; E11.22 Type 2 diabetes mellitus with diabetic chronic kidney disease; N18.2 Chronic kidney disease, stage 2 (mild); E11.40 Type 2 diabetes mellitus with diabetic neuropathy, unspecified; E78.00 Pure hypercholesterolemia, unspecified; K21.9 Gastro-esophageal reflux disease without esophagitis; I25.10 Atherosclerotic heart disease of native coronary artery without angina pectoris; I25.2 Old myocardial infarction; G43.909 Migraine, unspecified, not intractable, without status migrainosus; G89.29 Other chronic pain; D50.9 Iron deficiency anemia, unspecified; Z86.718 Personal history of other venous thrombosis and embolism; Z86.16 Personal history of COVID-19; Z79.82 Long term (current) use of aspirin; Z79.899 Other long term (current) drug therapy; Z88.5 Allergy status to narcotic agent; V49.40XA Driver injured in collision with unspecified motor vehicles in traffic accident, initial encounter
CPT/HCPCS: 36415; 70450; 71045; 72125; 80053; 83690; 83735; 83874; 83880; 84484; 85025; 93005; 93041

== ENCOUNTER → 2021-11-20 | Outpatient (CLI) | payer MEDICARE ==
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
== END ==
LOC: RAD 12:00
PROVIDERS: ATTEND Nurse Practitioner Family
DX: M79.605 Pain in left leg (principal); R10.32 Left lower quadrant pain; M79.89 Other specified soft tissue disorders

== ENCOUNTER 2021-11-25 22:50 | Emergency (ER) | payer MEDICARE ==
[~2021-11-25] VITALS: Ht 162 cm; Wt 60.7 kg
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
[2021-11-25 23:29] LABS: BASOPHILS # (AUTO) 0.1 10^3/uL (0.0-0.1); BASOPHILS % (AUTO) 1 % (0-10); EOSINOPHILS # (AUTO) 0.3 10^3/uL (0.0-0.3); EOSINOPHILS % (AUTO) 3 % (0-10); HEMATOCRIT 33 % (35-52); HEMOGLOBIN 10.4 g/dL (11.5-16.0); LYMPHOCYTES # (AUTO) 1.7 10^3/uL (1.0-4.0); LYMPHOCYTES % (AUTO) 19 % (12-44); MEAN CORPUSCULAR HEMOGLOBIN 29 pg (25-34); MEAN CORPUSCULAR HGB CONC 31 g/dL (32-36); MEAN CORPUSCULAR VOLUME 93 fL (80-99); MEAN PLATELET VOLUME 10.1 fL (9.0-12.2); MONOCYTES # (AUTO) 0.8 10^3/uL (0.0-1.0); MONOCYTES % (AUTO) 9 % (0-12); NEUTROPHILS % (AUTO) 68 % (42-75); PLATELET COUNT 242 10^3/uL (130-400); WHITE BLOOD COUNT 8.9 10^3/uL (4.3-11.0)
[2021-11-25 23:32] LABS: CHLORIDE 110 MMOL/L (98-107); SODIUM 140 MMOL/L (135-145)
[2021-11-25 23:33] LABS: CALCIUM 7.9 MG/DL (8.5-10.1); GLUCOSE 167 MG/DL (70-105)
[2021-11-25 23:35] LABS: CARBON DIOXIDE 19 MMOL/L (21-32)
[2021-11-25 23:37] LABS: CREATININE SERUM 1.93 MG/DL (0.60-1.30); GFR ESTIMATED 27
[2021-11-25 23:38] LABS: BUN/CREATININE RATIO 15
[2021-11-26 00:20] VITALS: BP 138/64
--- NOTE | 2021-11-26 07:04 | Diagnostic Imaging Report ---
CHEST 1 VIEW, AP/PA ONLY Indication: Chest pain. Comparison: 11/16/2021 Findings: No focal airspace disease in the visualized lungs. Please note that the posterior lower lobes are poorly evaluated by portable radiography. No pleural effusion or pneumothorax. Normal cardiomediastinal silhouette. Stable left subclavian Port-A-Cath. Impression: 1. No acute cardiopulmonary process by portable radiography. Dictated by: Dictated on workstation # [id number]
== END 2021-11-26 00:26 | disposition home or self-care (01) ==
LOC: EDUNIT# 22:50 → ER 22:51
DX: R07.9 Chest pain, unspecified (principal); G89.29 Other chronic pain; N18.9 Chronic kidney disease, unspecified
CPT/HCPCS: 36415; 71045; 80048; 84484; 85025; 93005

== ENCOUNTER → 2021-12-29 | Outpatient (CLI) | payer MEDICARE ==
--- NOTE | 2021-12-29 12:10 | Diagnostic Imaging Report ---
INDICATION: Routine screening. COMPARISON is made with prior mammogram from 12/28/2020 and 12/22/2019. 2-D and 3-D bilateral screening mammography was performed with CAD. Both breasts are heterogeneously dense, limiting the sensitivity of mammography. Post-therapeutic changes of the left breast are again noted with dystrophic calcifications. No mass is identified. No malignant-appearing microcalcifications are seen. There are extensive vascular calcifications bilaterally. Ptczwh-g-Xleo hub is located in the left axilla. Right axilla is unremarkable. IMPRESSION: BI-RADS Category 2. No mammographic features suspicious for malignancy are identified. ACR BI-RADS Category 2: Benign findings. Result letter will be mailed to the patient. Note: At least 10% of breast cancer is not imaged by mammography. Dictated by: Dictated on workstation # [id number]
== END ==
LOC: RAD 09:00
PROVIDERS: ATTEND Physician Assistant
DX: Z12.31 Encounter for screening mammogram for malignant neoplasm of breast (principal)
CPT/HCPCS: 77063; 77067

== ENCOUNTER → 2022-02-12 | Outpatient (CLI) | payer MEDICARE ==
[~2022-02-12] VITALS: Ht 162 cm; Wt 60.7 kg
[~2022-02-12] MED LIST changes: +HEParin (CENTRAL IV FLUSH) 500 UNIT/5 ML SYR IV ONE; +HEParin (CENTRAL IV FLUSH) 500 UNIT/5 ML SYR ONE
[2022-02-12 13:52] VITALS: BP 169/95
== END ==
LOC: SDC 13:23
PROVIDERS: ATTEND Physician Assistant
DX: Z95.828 Presence of other vascular implants and grafts (principal)
CPT/HCPCS: 96523

== ENCOUNTER 2022-02-22 11:41 | Emergency (ER) | payer MEDICARE ==
[~2022-02-22] VITALS: Ht 163 cm; Wt 61.0 kg
[~2022-02-22 11:41] MED LIST changes: -CHOL200014 PO; +CHOL200052 PO; -HEParin (CENTRAL IV FLUSH) 500 UNIT/5 ML SYR IV ONE; -HEParin (CENTRAL IV FLUSH) 500 UNIT/5 ML SYR ONE
--- NOTE | 2022-02-22 11:48 | ED Chest Pain ---
General Chief Complaint: Chest Pain Stated Complaint: CP Source: patient Exam Limitations: no limitations History of Present Illness Date Seen by Provider: February 22, 2022 Time Seen by Provider: 11:47 Initial Comments Patient is a 71-year-old female with a history of coronary artery disease, PA, pancreatitis, stroke, breast cancer, diabetes who was brought to ED by EMS for chest pain near syncopal episode. 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 She denies collapsing or loss of consciousness. She has been having this intermittent sharp substernal chest pain for the past week. Appears to be intermittent. Radiating pain to the left neck and left arm. Pain is worse on palpation with or with deep inspiration. Patient states she does not feel a little weak. She reports a low-grade temperature at home. No urinary symptoms. She reports bouts of upper abdominal discomfort but worsening pain over this past week or today. Denies vomiting or diarrhea. She reports headache but she does have a history of migraines and states today's head pain feels somewhat similar. Generalized head pain. No visual changes. She reports residual left-sided deficits from her previous stroke. She does ambulate well without much assistance. She denies cough, shortness of breath, visual loss, neck pain, lower extremity weakness, hallucinations, worst headache of her life. Patient took 4 baby aspirin's provided by EMS. Was not given nitro secondary to her blood pressure of 86/52. Patient was started on IV fluids with improvement. Patient is on EliGameCrush Allergies and Home Medications Allergies Coded Allergies: clopidogrel (Verified Allergy, Severe, BLOOD CLOTS, 11/27/18) Penicillins (Verified Allergy, Mild, RASH, 11/27/18) carisoprodol (Verified Allergy, Mild, RASH, 11/27/18) cephalexin (Verified Allergy, Mild, RASH, 11/27/18) ketorolac (Verified Allergy, Mild, RASH, 11/27/18) prochlorperazine (Verified Allergy, Mild, RASH, 11/27/18) Carbamates (Verified Allergy, Unknown, Rash, 05/28/19) Patient Home Medication List Home Medication List Reviewed: Yes Albuterol Sulfate (Albuterol Sulfate) 2.5 Mg/3 Ml Vial.neb, 2 PUFF INH Q4H PRN for SHORTNESS OF BREATH Prescribed by: DASIA FRANKLIN on 11/25/20 1101 Amlodipine Besylate (Amlodipine Besylate) 10 Mg Tablet, 10 MG PO DAILY, (Reported) Entered as Reported by: ETHEL JONES on 11/14/20 1527 Aspirin (Aspirin EC) 81 Mg Tablet.dr, 81 MG PO DAILY Prescribed by: OLIVE ISAAC on 11/21/20 1010 Atorvastatin Calcium (Atorvastatin Calcium) 40 Mg Tablet, 40 MG PO HS, (Reported) Entered as Reported by: REMA LIZAMA on 09/03/19 1408 Cholecalciferol (Vitamin D3) (Vitamin D3) 50 Mcg Tablet, 50 MCG PO DAILY, (Reported) Entered as Reported by: ETHEL JONES on 11/14/20 1527 Ciprofloxacin HCl (Ciprofloxacin HCl) 500 Mg Tablet, 500 MG PO BID Prescribed by: TAYLOR FORRESTER on 02/22/22 1506 Codeine/Butalbital/ASA/Caffein (KJS-Zifmnw-Rccb-Cod #3 Capsule) 1 Each Capsule, 1 EACH PO DAILY PRN for MIGRAINE, (Reported) Entered as Reported by: ETHEL JONES on 11/14/20 1527 Duloxetine HCl (Cymbalta) 30 Mg Capsule.dr, 30 MG PO DAILY, (Reported) Entered as Reported by: BARRETT DANIELLE on 11/27/18 0949 Folic Acid (Folic Acid) 1 Mg Tablet, 1 MG PO DAILY, (Reported) Entered as Reported by: NAOMY ESTRADA on 05/28/19 1246 Hydroxychloroquine Sulfate (Hydroxychloroquine Sulfate) 200 Mg Tablet, 200 MG PO BID, (Reported) Entered as Reported by: NAOMY ESTRADA on 05/28/19 1252 Hyoscyamine Sulfate (Levsin-Sl) 0.125 Mg Tab.subl, 0.25 MG SL Q4H Prescribed by: RAPHAEL DUNCAN on 11/26/20 2107 Levetiracetam (Levetiracetam) 500 Mg Tablet, 500 MG PO BID Prescribed by: OLIVE ISAAC on 11/21/20 1010 Metoprolol Succinate (Metoprolol Succinate) 100 Mg Tab.er.24h, 100 MG PO DAILY, (Reported) Entered as Reported by: REMA LIZAMA on 09/03/19 1408 Ondansetron (Ondansetron Odt) 4 Mg Tab.rapdis, 4 MG PO Q4H PRN for NAUSEA-1ST LINE Prescribed by: DASIA FRANKLIN on 11/25/20 1101 Ondansetron (Ondansetron Odt) 8 Mg Tab.rapdis, 8 MG PO Q6H Prescribed by: RAPHAEL DUNCAN on 11/26/202106 Pantoprazole Sodium (Pantoprazole Sodium) 40 Mg Tablet.dr, 40 MG PO DAILY, (Reported) Entered as Reported by: BARRETT DANIELLE on 11/27/18 0949 Pantoprazole Sodium (Protonix) 40 Mg Tablet.dr, 40 MG PO DAILY Prescribed by: RAPHAEL DUNCAN on 11/26/202106 Prednisone (Prednisone) 20 Mg Tab, 40 MG PO DAILY Prescribed by: JARED ODELL on 03/26/21 1523 Topiramate (Topiramate) 50 Mg Tablet, 75 MG PO BID, (Reported) Entered as Reported by: BARRETT DANIELLE on 11/27/18 0949 Discontinued Medications Ciprofloxacin HCl (Ciprofloxacin HCl) 500 Mg Tablet, 500 MG PO BID Prescribed by: TAYLOR FORRESTER on 02/22/22 1444 Review of Systems Review of Systems Constitutional: No chills, No diaphoresis, No malaise, No weakness EENTM: No Blurred Vision, No Double Vision, No Eye Pain Respiratory: Denies Cough, Denies Orthopnea, Denies Shortness of Air Cardiovascular: Chest Pain; Denies Edema, Denies Irregular Heart Rate; Lightheadedness Gastrointestinal: Denies Abdominal Pain, Denies Constipated, Denies Difficulty Swallowing, Denies Nausea, Denies Vomiting, Denies Other Genitourinary: Denies Burning, Denies Discharge Musculoskeletal: No back pain, No joint pain Skin: No change in color, No change in hair/nails Psychiatric/Neurological: Denies Anxiety, Denies Depressed All Other Systems Reviewed Negative Unless Noted: Yes Past Makwgmv-Jysvhv-Xdeqlw Hx Immunizations Up To Date Tetanus Booster (TDap): Unknown First/Initial COVID19 Vaccinat: 02/2021 Second COVID19 Vaccination Enrique: 04/10 Third COVID19 Vaccination Date: 03/10 Seasonal Allergies Seasonal Allergies: No Past Medical History Surgery/Hospitalization HX: RT SHOULDER, BREAST, HYSTERECTOMY, THRYOIDECTOMY, CARDIAC STENT, A FIB, PA, PANCREATITIS, STROKE, PNEUMONIA, COVID-19 11/10, DVT, HIGH CHOLESTEROL, HTN Surgeries: Yes (R CTR, espohageal ligation x2, Hernia, L RCR, L TKR, laparotomy, MRSA infec) Abdominal, Breast, Cardiac, Coronary Stent, Hysterectomy, Joint Replacement, Oophorectomy, Orthopedic, Thyroidectomy Respiratory: Yes (COVID-19 November 07, 2020-ADMITTED WITH PNEUMONIA) Pneumonia Currently Using CPAP: No Currently Using BIPAP: No Cardiac: Yes (HX HEART CATH-STENT;MILD BILAT CAROTID STENOSIS;DVT L ARM DUE TO PICC LINE) Coronary Artery Disease, Deep Vein Thrombosis, Heart Attack, High Cholesterol, Hypertension, Peripheral Vascular Neurological: Yes Headaches /Migraines, Neuropathy 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 History: Hysterectomy, Menopausal Sexually Transmitted Disease: No HIV/AIDS: No Genitourinary: Yes (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,STAGE 2-KIDNEY DISEASE;DIABETIC NEPHROPA ) Bladder Infection, Renal Failure, Dialysis Gastrointestinal: Yes (HX GI BLEED, zenkers syndrome-chokes easily, hx hep A;LIVER INJURY/TRAUMA) Abdominal Hernia, Gastroesophageal Reflux, Gastrointestinal Bleed, Esophageal Varices, Hepatitis Musculoskeletal: Yes (OSTEOARTHRITIS, BULGING DISCS) Arthritis, Chronic Back Pain Endocrine: Yes (partial thyroidectomy) Hypothyroidsim HEENT: Yes (GLASSES, UPPER DENTURES) Glaucoma Loss of Vision: Bilateral Cancer: Yes Breast Did You Recieve Any Treatments: Yes What Type of Treatment Did You: Radiation, Surgical Intervention Psychosocial: No Integumentary: No Blood Disorders: Yes (IRON DEFFICIENCY ANEMIA-GETS IRON INFUSIONS) Adverse Reaction/Blood Tranf: No (HAS HAD BLOOD WITH NO REACTION) Family Medical History Hypertension G8 BROTHER Not obtainable due to adoption 19 FATHER Heart Disease, Hypertension ADDITIONAL PAST SURGICAL HISTORY -ZENKER'S DIVERTICULUM SURGERY X 2 -ABDOMINAL HERNIA REPAIR WITH MESH -MESH REMOVAL AND LYSIS OF ADHESIONS -HYST/BSO -LOOP RECORDER -PORT LEFT CHEST -LEFT BREAST LUMPECTOMY -CARDIAC CATH WITH STENT X 1 TO RCA 2010 -PORT LEFT CHEST -RIGHT SHOULDER REPLACEMENT -RENAL ARTERY STENOSIS WITH STENT 2013 Physical Exam Vital Signs Vital Signs - First Documented 02/22/22 11:42 Temp 36.3 Pulse 79 Resp 18 B/P (MAP) 110/60 (77) Pulse Ox 98 O2 Delivery Room Air Capillary Refill : Height, Weight, BMI Height: 5'4.00" Weight: 216lbs. 4.2oz. 98.640251jc; 23.00 BMI Method:Stated General Appearance: No Apparent Distress, WD/WN HEENT: PERRL/EOMI, TMs Normal, Normal ENT Inspection, Pharynx Normal Neck: Full Range of Motion, Normal Inspection, Non Tender, Supple Respiratory: Chest Non Tender, Lungs Clear, Normal Breath Sounds, No Accessory Muscle Use, No Respiratory Distress Cardiovascular: Regular Rate, Rhythm, No Edema, No Gallop, No JVD Gastrointestinal: Normal Bowel Sounds, No Organomegaly, No Pulsatile Mass, Non Tender Extremity: Normal Capillary Refill, Normal Inspection, Normal Range of Motion, Non Tender Neurologic/Psychiatric: Alert, Oriented x3, No Motor/Sensory Deficits, Normal Mood/Affect, able bodied watchman II-XII Norm as Tested Skin: Normal Color, Warm/Dry Progress/Results/Core Measures Results/Orders Lab Results Laboratory Tests Test 02/22/22 11:50 02/22/22 12:45 Range/Units White Blood Count 5.5 4.3-11.0 10^3/uL Red Blood Count 3.60 L 3.80-5.11 10^6/uL Hemoglobin 10.6 L 11.5-16.0 g/dL Hematocrit 33 L 35-52 % Mean Corpuscular Volume 91 80-99 fL Mean Corpuscular Hemoglobin 29 25-34 pg Mean Corpuscular Hemoglobin Concent 32 32-36 g/dL Red Cell Distribution Width 13.2 10.0-14.5 % Platelet Count 193 130-400 10^3/uL Mean Platelet Volume 9.9 9.0-12.2 fL Immature Granulocyte % (Auto) 0 % Neutrophils (%) (Auto) 60 42-75 % Lymphocytes (%) (Auto) 25 12-44 % Monocytes (%) (Auto) 12 0-12 % Eosinophils (%) (Auto) 2 0-10 % Basophils (%) (Auto) 1 0-10 % Neutrophils # (Auto) 3.3 1.8-7.8 10^3/uL Lymphocytes # (Auto) 1.4 1.0-4.0 10^3/uL Monocytes # (Auto) 0.7 0.0-1.0 10^3/uL Eosinophils # (Auto) 0.1 0.0-0.3 10^3/uL Basophils # (Auto) 0.1 0.0-0.1 10^3/uL Immature Granulocyte # (Auto) 0.0 0.0-0.1 10^3/uL Prothrombin Time 15.7 H 12.2-14.7 SEC INR Comment 1.2 0.8-1.4 Activated Partial Thromboplast Time 31 24-35 SEC D-Dimer 2.39 H 0.00-0.49 UG/ML Sodium Level 142 135-145 MMOL/L Potassium Level 3.8 3.6-5.0 MMOL/L Chloride Level 113 H 98-107 MMOL/L Carbon Dioxide Level 21 21-32 MMOL/L Anion Gap 8 5-14 MMOL/L Blood Urea Nitrogen 20 H 7-18 MG/DL Creatinine 1.26 0.60-1.30 MG/DL Estimat Glomerular Filtration Rate 45 BUN/Creatinine Ratio 16 Glucose Level 138 H 70-105 MG/DL Calcium Level 7.3 L 8.5-10.1 MG/DL Corrected Calcium 7.9 L 8.5-10.1 MG/DL Magnesium Level 2.0 1.6-2.4 MG/DL Total Bilirubin 0.2 0.1-1.0 MG/DL Aspartate Amino Transf (AST/SGOT) 8 5-34 U/L Alanine Aminotransferase (ALT/SGPT) 9 0-55 U/L Alkaline Phosphatase 79 40-136 U/L Myoglobin 48.5 10.0-92.0 NG/ML Troponin I < 0.028 <0.028 NG/ML B-Type Natriuretic Peptide 45.3 <100.0 PG/ML Total Protein 5.2 L 6.4-8.2 GM/DL Albumin 3.2 3.2-4.5 GM/DL Lipase 30 8-78 U/L Urine Color YELLOW Urine Clarity SL CLOUDY Urine pH 5.5 5-9 Urine Specific [place] >=1.030 1.016-1.022 Urine Protein 2+ H NEGATIVE Urine Glucose (UA) NEGATIVE NEGATIVE Urine Ketones TRACE H NEGATIVE Urine Nitrite POSITIVE H NEGATIVE Urine Bilirubin NEGATIVE NEGATIVE Urine Urobilinogen 0.2 < = 1.0 MG/DL Urine Leukocyte Esterase 1+ H NEGATIVE Urine RBC (Auto) NEGATIVE NEGATIVE Urine RBC NONE /HPF Urine WBC 25-50 H /HPF Urine Squamous Epithelial Cells 5-10 /HPF Urine Crystals NONE /LPF Urine Bacteria LARGE H /HPF Urine Casts PRESENT /LPF Urine Hyaline Casts 0-2 H /LPF Urine Mucus NEGATIVE /LPF Urine Culture Indicated YES My Orders Orders - NEPTALI LOPEZ PA Cbc With Automated Diff (02/22/22 11:46) Magnesium (02/22/22 11:46) Chest 1 View, Ap/Pa Only (02/22/22 11:46) Ekg Tracing (02/22/22 11:46) Comprehensive Metabolic Panel (02/22/22 11:46) Myoglobin Serum (02/22/22 11:46) Protime With Inr (02/22/22 11:46) Partial Thromboplastin Time (02/22/22 11:46) O2 (02/22/22 11:46) Monitor-Rhythm Ecg Trace Only (02/22/22 11:46) Ed Iv/Invasive Line Start (02/22/22 11:46) Bnp Dave (02/22/22 11:46) Troponin I Dave (02/22/22 11:46) Ua Culture If Indicated (02/22/22 11:46) Lipase (02/22/22 11:46) Orthostatic Vital Signs (Adult (02/22/22 12:06) Fibrin Degradation Products (02/22/22 12:48) Hydrocodone/Apap 7.5/325 Tab (Lortab 7. (02/22/22 13:00) Ns Iv 500 Ml (Sodium Chloride 0.9%) (02/22/22 13:00) Urine Culture (02/22/22 12:45) Ct Angio Chest W (02/22/22 13:23) Iohexol Injection (Omnipaque 350 Mg/Ml 1 (02/22/22 13:30) Received Contrast (Hold Metformin- Contr (02/22/22 13:30) Sodium Chloride Flush (Catheter Flush Sy (02/22/22 13:30) Ns (Ivpb) (Sodium Chloride 0.9% Ivpb Bag (02/22/22 13:30) Medications Given in ED Current Medications Medications Dose Ordered Sig/Ana María Route Start Time Stop Time Status Last Admin Dose Admin Iohexol 100 ml ONCE ONCE IV 02/22/22 13:30 02/22/22 13:31 DC 02/22/22 13:51 61 ML Sodium Chloride 10 ml NEEDED PRN IV 02/22/22 13:30 02/22/22 15:17 DC 02/22/22 13:52 10 ML Sodium Chloride 100 ml ONCE ONCE IV 02/22/22 13:30 02/22/22 13:31 DC 02/22/22 13:52 80 ML Vital Signs/I&O 02/22/22 02/22/22 02/22/22 02/22/22 11:42 13:02 13:07 15:10 Temp 36.3 36.3 36.3 Pulse 79 75 75 77 78 Resp 18 18 B/P (MAP) 110/60 (77) 103/66 (78) 125/92 108/63 (78) 102/63 (76) Pulse Ox 98 98 O2 Delivery Room Air Room Air Departure Communication (PCP) Patient with a history of coronary artery disease, stroke presents ED with intermittent substernal sharp chest pain with radiation to neck and left arm. Near syncopal episode today. Patient was found to be hypotensive by EMS and was placed on a liter of fluid. improvement of blood pressure here in the ED. Patient was given a second 500 ml bolus of fluid/ Maintain blood pressure around 125/92. She was not orthostatic hypotensive or complained of dizziness with standing. She also reports headache with some nausea. She has a history of migraines states this feels very similar. She has no changing focal neural deficits at this time or worst headache of her life. No meningeal signs or fever. No visual loss. Residual left-sided weakness secondary to previous stroke.. She has no abdominal tenderness on palpation. EKG normal sinus rhythm very comparable to her previous EKG Initial troponin negative. Would suspect trending elevated troponin. However chest pain appears to be more pleuritic with pain on palpation and deep inspiration. Patient was given hydrocodone with improvement of pain. BNP negative. Chest x-ray negative for pneumonia, pneumothorax. Does have some substernal chest tenderness on palpation. Patient had a stress test in 2020 without severe stenosis. She did not receive aspirin by EMS. Normal white blood count with improving kidney function. She did have an elevated D-dimer. History of breast cancer rule out PE. CT angio of the chest was negative for PE. Did noted hyperdense bilateral renal cyst which may be hemorrhagic versus proteinaceous. Further evaluation with MRI is needed to rule out any renal mass. She did not have comparable lesions with a CT scan the first part of this year. This can be scheduled outpatient. She does states she has some back pain but this appears to be more chronic and reports back surgery. Urinalysis was positive for infection. She is allergic to penicillins, cephalosporins. Due to her history of kidney insufficiency Macrobid was held. This limits to Cipro. Discussed the risk of jeromy quinolones and complications. Discussed risk of possible tendinitis or tendon rupture. She is not on warfarin. Discussed probiotics which she does take. Will prescribe for at least 5 days of antibiotics. Recommend recheck with urinalysis around 5 days with her primary care physician. Recommend further evaluation for the renal mass. She states she has had this chest pain before that comes and goes. Concerned that she may have been dehydrated. Patient feels much better at this time and request to be discharged. Discussed follow- up with her PCP for further evaluation. If any worsening symptoms return back to ED. Follow-up with Dr. Singh for further evaluation of the chest pain. Patient is on Eliquis. Impression Primary Impression: UTI (urinary tract infection) Additional Impressions: Dehydration Chest pain Disposition: 01 HOME, SELF-CARE Condition: Stable Departure-Patient Inst. Decision time for Depature: 14:42 Referrals: [facility] (PCP) Primary Care Physician JAVIER MOSS (Family) Primary Care Physician Patient Instructions: Urinary Tract Infection, Adult ED Scripts Ciprofloxacin HCl (Ciprofloxacin HCl) 500 Mg Tablet 500 MG PO BID for 5 Days, #10 TAB Prov: NEPTALI LOPEZ 02/22/22 NEPTALI LOPEZ February 22, 2022 11:48
--- NOTE | 2022-02-22 12:20 | Diagnostic Imaging Report ---
EXAMINATION: Chest 1 view HISTORY: Chest pain COMPARISON: 11/25/2021 FINDINGS: Heart size and pulmonary vasculature are normal. Medical support lines and tubes are unchanged. The lungs are clear without consolidation, pleural effusion, or pneumothorax. Surgical changes from right shoulder arthroplasty. IMPRESSION: 1. No acute radiographic abnormality in the chest. Dictated by: Dictated on workstation # [id number]
[2022-02-22 12:26] LABS: BASOPHILS # (AUTO) 0.1 10^3/uL (0.0-0.1); BASOPHILS % (AUTO) 1 % (0-10); EOSINOPHILS # (AUTO) 0.1 10^3/uL (0.0-0.3); EOSINOPHILS % (AUTO) 2 % (0-10); HEMATOCRIT 33 % (35-52); HEMOGLOBIN 10.6 g/dL (11.5-16.0); LYMPHOCYTES # (AUTO) 1.4 10^3/uL (1.0-4.0); LYMPHOCYTES % (AUTO) 25 % (12-44); MEAN CORPUSCULAR HEMOGLOBIN 29 pg (25-34); MEAN CORPUSCULAR HGB CONC 32 g/dL (32-36); MEAN CORPUSCULAR VOLUME 91 fL (80-99); MEAN PLATELET VOLUME 9.9 fL (9.0-12.2); MONOCYTES # (AUTO) 0.7 10^3/uL (0.0-1.0); MONOCYTES % (AUTO) 12 % (0-12); NEUTROPHILS # (AUTO) 3.3 10^3/uL (1.8-7.8); NEUTROPHILS % (AUTO) 60 % (42-75); PLATELET COUNT 193 10^3/uL (130-400); WHITE BLOOD COUNT 5.5 10^3/uL (4.3-11.0)
[2022-02-22 12:37] LABS: INR 1.2 (0.8-1.4); PROTHROMBIN TIME PATIENT 15.7 SEC (12.2-14.7)
[2022-02-22 12:39] LABS: ALBUMIN 3.2 GM/DL (3.2-4.5); POTASSIUM 3.8 MMOL/L (3.6-5.0)
[2022-02-22 12:40] LABS: CALCIUM 7.3 MG/DL (8.5-10.1)
[2022-02-22 12:41] LABS: TOTAL PROTEIN 5.2 GM/DL (6.4-8.2)
[2022-02-22 12:43] LABS: BILIRUBIN,TOTAL 0.2 MG/DL (0.1-1.0)
[2022-02-22 12:45] LABS: CREATININE SERUM 1.26 MG/DL (0.60-1.30)
[2022-02-22 12:50] LABS: LIPASE 30 U/L (8-78)
[2022-02-22 12:53] LABS: BILIRUBIN,URINE NEGATIVE (NEGATIVE); CLARITY,URINE SL CLOUDY; COLOR,URINE YELLOW; GLUCOSE, URINE (UA) NEGATIVE (NEGATIVE); KETONES,URINE TRACE (NEGATIVE); LEUKOCYTE ESTERASE ,URINE 1+ (NEGATIVE); NITRITE,URINE POSITIVE (NEGATIVE); PH,URINE 5.5 (5-9); PROTEIN,URINE 2+ (NEGATIVE)
[2022-02-22] MEDS ORDERED: HYDROcodone/APAP 7.5 MG/325 MG (LORTAB, LORCET PLUS) TABLET PO STA (13:00)
[2022-02-22] MEDS ORDERED: NS IV 500 ML 500 ML IV STA (13:00)
[2022-02-22 13:02] VITALS: BP_SYST 102; BP_SYST 103; BP_SYST 108; BP_DIAS 63; BP_DIAS 66
[2022-02-22 13:03] LABS: BACTERIA,URINE LARGE /HPF; WBC,URINE 25-50 /HPF
[2022-02-22 13:04] LABS: HYALINE CASTS, URINE 0-2 /LPF
[2022-02-22] MEDS ORDERED: NS 100 ML (IVPB) BAG IV ONE (13:30)
[2022-02-22] MEDS ORDERED: CATHETER FLUSH 10 ML SYR IV PRN (13:30)
[2022-02-22] MEDS ORDERED: HOLD METFORMIN - RECEIVED CONTRAST 20 ML VIAL IV SCH (13:30)
[2022-02-22] MEDS ORDERED: IOHEXOL 350 MG/ML 100 ML (OMNIPAQUE 350) VIAL IV ONE (13:30)
--- NOTE | 2022-02-22 14:11 | Diagnostic Imaging Report ---
EXAMINATION: CT angiography of the chest. TECHNIQUE: Contrast enhanced thin section helical images were obtained through the chest with intravenous contrast timed for the optimal opacification of the arterial structures per CTA protocol. Post-processing, reconstructions and interpretation of angiographic images of the vessels was performed. 3D MIP reconstructions were performed and reviewed. All CT scans use one or more of the following dose optimizing techniques: automated exposure control, MA and/or KvP adjustment based on a patient size and exam type, or iterative reconstruction. HISTORY: Chest pain. COMPARISON: 09/14/2019. FINDINGS: Vascular: No filling defects within the pulmonary arteries. Thoracic aorta is normal in caliber. Calcification of the aorta and coronary vessels. Thyroid: The thyroid is normal. Mediastinum: Heart size is normal without significant pericardial effusion. No suspicious lymphadenopathy. A left-sided port catheter is present. Lungs and airways: The lungs are clear without consolidation, pleural effusion, or pneumothorax. Atelectasis is present within the dependent lungs. The airways are normal. Upper abdomen: There are multiple bilateral renal cysts, a few of which are mildly hyperdense. Musculoskeletal: Degenerative changes of the spine without suspicious osseous lesion or compression fracture. IMPRESSION: 1. No findings of pulmonary embolus or other acute abnormality in the chest. 2. Bilateral renal cysts, a few of which are hyperdense. If these have not already been evaluated, an MRI of the abdomen renal mass protocol with IV contrast could be performed to confirm hemorrhagic or proteinaceous cysts versus renal mass. Dictated by: Dictated on workstation # [id number]
[2022-02-22] MEDS ORDERED: CIPR500T5 PO ×2 (14:44→15:06)
[2022-02-22 15:10] VITALS: BP 125/92
== END 2022-02-22 15:10 | disposition home or self-care (01) ==
LOC: EDUNIT# 11:41 → ER 11:43
DX: R07.2 Precordial pain (principal); N39.0 Urinary tract infection, site not specified; E86.0 Dehydration; I95.9 Hypotension, unspecified; R79.89 Other specified abnormal findings of blood chemistry; N28.1 Cyst of kidney, acquired; I48.91 Unspecified atrial fibrillation; I25.10 Atherosclerotic heart disease of native coronary artery without angina pectoris; Z86.73 Personal history of transient ischemic attack (TIA), and cerebral infarction without residual deficits; Z86.718 Personal history of other venous thrombosis and embolism; Z79.01 Long term (current) use of anticoagulants; Z86.16 Personal history of COVID-19
CPT/HCPCS: 36415; 71045; 71275; 80053; 81000; 83690; 83735; 83874; 83880; 84484; 85025; 85379; 85610; 85730; 87077; 87088; 87186; 93005; 93041

== ENCOUNTER → 2022-03-14 | Outpatient (CLI) | payer MEDICARE ==
[~2022-03-14] MED LIST changes: +CIPR500T5 PO; +HEParin (CENTRAL IV FLUSH) 500 UNIT/5 ML SYR ONE
[2022-03-14 14:22] VITALS: BP 128/63
== END ==
LOC: SDC 14:05
PROVIDERS: ATTEND Physician Assistant
DX: Z45.2 Encounter for adjustment and management of vascular access device (principal); Z95.828 Presence of other vascular implants and grafts
CPT/HCPCS: 96523

== ENCOUNTER → 2022-04-11 | Outpatient (CLI) | payer MEDICARE ==
[~2022-04-11] MED LIST changes: +HEParin (CENTRAL IV FLUSH) 500 UNIT/5 ML SYR IV ONE
[2022-04-11 13:38] VITALS: BP 181/94
== END ==
LOC: SDC 13:19
PROVIDERS: ATTEND Physician Assistant
DX: Z95.828 Presence of other vascular implants and grafts (principal)
CPT/HCPCS: 96523

== ENCOUNTER 2022-05-15 13:01 | Emergency (ER) | payer MEDICARE ==
[~2022-05-15] VITALS: Ht 162.5 cm; Wt 68.0 kg
[~2022-05-15 13:01] MED LIST changes: -HEParin (CENTRAL IV FLUSH) 500 UNIT/5 ML SYR ONE; -METR-145 PO
[2022-05-15] MEDS ORDERED: NS IV 1000 ML 1,000 ML IV STA (13:22)
--- NOTE | 2022-05-15 13:28 | ED General ---
General Chief Complaint: Cardiac/General Problems Stated Complaint: HIGH BP, LARSON Source of Information: Patient Exam Limitations: No Limitations History of Present Illness Date Seen by Provider: May 15, 2022 Time Seen by Provider: 13:25 Initial Comments Patient is a 71-year-old female with a history of hypertension who presents ED with flulike symptoms and headache. She reports diffuse head pain over the past week. Described as throbbing rates 8 out of 10. She does take Topamax for history of migraines states this feels very similar. She was getting her port flush today and was complaining to staff that she had a headache with urinary symptoms and found to have a elevated blood pressure over 200 systolic. She is currently on metoprolol, amlodipine for her hypertension. She also reports flulike symptoms over the past week with runny nose, sore throat, cough, shortness of breath, vomiting and diarrhea. She had a negative COVID and flu swab last week. She is currently on Cipro for UTI. She does report some burning with urination. Patient also reports a low-grade temperature. Denies of any visual changes, unilateral muscle weakness. She does have associated photophobia. She has received her COVID-vaccine. Denies of any specific chest pain, abdominal pain at this time. She denies worst headache of her life however due to her blood pressure or the flu has made her head pain worse. Denies syncope. Allergies and Home Medications Allergies Coded Allergies: clopidogrel (Verified Allergy, Severe, BLOOD CLOTS, 11/27/18) Penicillins (Verified Allergy, Mild, RASH, 11/27/18) carisoprodol (Verified Allergy, Mild, RASH, 11/27/18) cephalexin (Verified Allergy, Mild, RASH, 11/27/18) ketorolac (Verified Allergy, Mild, RASH, 11/27/18) prochlorperazine (Verified Allergy, Mild, RASH, 11/27/18) Carbamates (Verified Allergy, Unknown, Rash, 05/28/19) Patient Home Medication List Home Medication List Reviewed: Yes Albuterol Sulfate (Albuterol Sulfate) 2.5 Mg/3 Ml Vial.neb, 2 PUFF INH Q4H PRN for SHORTNESS OF BREATH Prescribed by: DASIA FRANKLIN on 11/25/20 1101 Amlodipine Besylate (Amlodipine Besylate) 10 Mg Tablet, 10 MG PO DAILY, (Reported) Entered as Reported by: ETHEL JONES on 11/14/20 1527 Aspirin (Aspirin EC) 81 Mg Tablet.dr, 81 MG PO DAILY Prescribed by: OLIVE ISAAC on 11/21/20 1010 Atorvastatin Calcium (Atorvastatin Calcium) 40 Mg Tablet, 40 MG PO HS, (Re ported) Entered as Reported by: REMA LIZAMA on 09/03/19 1408 Cholecalciferol (Vitamin D3) (Vitamin D3) 50 Mcg Tablet, 50 MCG PO DAILY, (Reported) Entered as Reported by: ETHEL JONES on 11/14/20 1527 Ciprofloxacin HCl (Ciprofloxacin HCl) 500 Mg Tablet, 500 MG PO BID Prescribed by: TAYLOR FORRESTER on 02/22/22 1506 Codeine/Butalbital/ASA/Caffein (ASO-Ibtjvt-Ljjb-Cod #3 Capsule) 1 Each Capsule, 1 EACH PO DAILY PRN for MIGRAINE, (Reported) Entered as Reported by: ETHEL JONES on 11/14/20 1527 Duloxetine HCl (Cymbalta) 30 Mg Capsule.dr, 30 MG PO DAILY, (Reported) Entered as Reported by: BARRETT DANIELLE on 11/27/18 0949 Folic Acid (Folic Acid) 1 Mg Tablet, 1 MG PO DAILY, (Reported) Entered as Reported by: NAOMY ESTRADA on 05/28/19 1246 Hydroxychloroquine Sulfate (Hydroxychloroquine Sulfate) 200 Mg Tablet, 200 MG PO BID, (Reported) Entered as Reported by: NAOMY ESTRADA on 05/28/19 1252 Hyoscyamine Sulfate (Levsin-Sl) 0.125 Mg Tab.subl, 0.25 MG SL Q4H Prescribed by: RAPHAEL DUNCAN on 11/26/20 2107 Levetiracetam (Levetiracetam) 500 Mg Tablet, 500 MG PO BID Prescribed by: OLIVE ISAAC on 11/21/20 1010 Metoprolol Succinate (Metoprolol Succinate) 100 Mg Tab.er.24h, 100 MG PO DAILY, (Reported) Entered as Reported by: REMA LIZAMA on 09/03/19 1408 Ondansetron (Ondansetron Odt) 4 Mg Tab.rapdis, 4 MG PO Q4H PRN for NAUSEA-1ST LINE Prescribed by: DASIA FRANKLIN on 11/25/20 1101 Ondansetron (Ondansetron Odt) 8 Mg Tab.rapdis, 8 MG PO Q6H Prescribed by: RAPHAEL DUNCAN on 11/26/202106 Ondansetron (Ondansetron Odt) 4 Mg Tab.rapdis, 4 MG PO Q4H PRN for NAUSEA/VOMITING-1ST LINE Prescribed by: TAYLOR FORRESTER on 05/15/22 1605 Pantoprazole Sodium (Pantoprazole Sodium) 40 Mg Tablet.dr, 40 MG PO DAILY, (Reported) Entered as Reported by: BARRETT DANIELLE on 11/27/18 0949 Pantoprazole Sodium (Protonix) 40 Mg Tablet.dr, 40 MG PO DAILY Prescribed by: RAPHAEL DUNCAN on 11/26/202106 Prednisone (Prednisone) 20 Mg Tab, 40 MG PO DAILY Prescribed by: JARED ODELL on 03/26/21 1523 Topiramate (Topiramate) 50 Mg Tablet, 75 MG PO BID, (Reported) Entered as Reported by: BARRETT DANIELLE on 11/27/18 0949 Discontinued Medications Ondansetron (Ondansetron Odt) 4 Mg Tab.rapdis, 4 MG PO Q4H Prescribed by: TAYLOR FORRESTER on 05/15/22 1551 Review of Systems Review of Systems Constitutional: No chills; malaise, weakness EENTM: throat pain; No ear discharge, No hearing loss, No blurred vision, No double vision, No throat swelling Respiratory: cough, short of breath Cardiovascular: No chest pain Gastrointestinal: No abdominal pain; diarrhea, nausea, vomiting Genitourinary: frequency, pain Musculoskeletal: No back pain, No joint pain Skin: No change in color, No change in hair/nails Psychiatric/Neurological: Denies Anxiety, Denies Depressed All Other Systems Reviewed Negative Unless Noted: Yes Past Nicbjrj-Zitzsp-Jdztji Hx Immunizations Up To Date Tetanus Booster (TDap): Unknown First/Initial COVID19 Vaccinat: 02/2021 Second COVID19 Vaccination Enrique: 02/2021 Third COVID19 Vaccination Date: 02/2021 Seasonal Allergies Seasonal Allergies: No Past Medical History Surgery/Hospitalization HX: RT SHOULDER, BREAST, HYSTERECTOMY, THRYOIDECTOMY, CARDIAC STENT, A FIB, [place], PANCREATITIS, STROKE, PNEUMONIA, COVID-19 11/10, DVT, HIGH CHOLESTEROL, HTN, LOOP RECORDER, LT SUB CLAVIAN PORT Surgeries: Yes (R CTR, espohageal ligation x2, Hernia, L RCR, L TKR, laparotomy, MRSA infec) Abdominal, Breast, Cardiac, Coronary Stent, Hysterectomy, Joint Replacement, Oophorectomy, Orthopedic, Thyroidectomy Respiratory: Yes (COVID-19 November 07, 2020-ADMITTED WITH PNEUMONIA) Pneumonia Currently Using CPAP: No Currently Using BIPAP: No Cardiac: Yes (HX HEART CATH-STENT;MILD BILAT CAROTID STENOSIS;DVT L ARM DUE TO PICC LINE) Coronary Artery Disease, Deep Vein Thrombosis, Heart Attack, High Cholesterol, Hypertension, Peripheral Vascular Neurological: Yes Headaches /Migraines, Neuropathy 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, Menopausal Sexually Transmitted Disease: No HIV/AIDS: No Genitourinary: Yes (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,STAGE 2-KIDNEY DISEASE;DIABETIC NEPHROPA ) Bladder Infection, Renal Failure, Dialysis Gastrointestinal: Yes (HX GI BLEED, zenkers syndrome-chokes easily, hx hep A;LIVER INJURY/TRAUMA) Abdominal Hernia, Gastroesophageal Reflux, Gastrointestinal Bleed, Esophageal Varices, Hepatitis Musculoskeletal: Yes (OSTEOARTHRITIS, BULGING DISCS) Arthritis, Chronic Back Pain Endocrine: Yes (partial thyroidectomy) Hypothyroidsim HEENT: Yes (GLASSES, UPPER DENTURES) Glaucoma Loss of Vision: Bilateral Cancer: Yes Breast Did You Recieve Any Treatments: Yes What Type of Treatment Did You: Radiation, Surgical Intervention Psychosocial: No Integumentary: No Blood Disorders: Yes (IRON DEFFICIENCY ANEMIA-GETS IRON INFUSIONS) Adverse Reaction/Blood Tranf: No (HAS HAD BLOOD WITH NO REACTION) Family Medical History Hypertension G8 BROTHER Not obtainable due to adoption 19 FATHER Heart Disease, Hypertension ADDITIONAL PAST SURGICAL HISTORY -ZENKER'S DIVERTICULUM SURGERY X 2 -ABDOMINAL HERNIA REPAIR WITH MESH -MESH REMOVAL AND LYSIS OF ADHESIONS -HYST/BSO -LOOP RECORDER -PORT LEFT CHEST -LEFT BREAST LUMPECTOMY -CARDIAC CATH WITH STENT X 1 TO RCA 2009 -PORT LEFT CHEST -RIGHT SHOULDER REPLACEMENT -RENAL ARTERY STENOSIS WITH STENT 2013 Physical Exam Vital Signs Vital Signs - First Documented 05/15/22 13:11 Temp 36.6 Pulse 97 Resp 18 B/P (MAP) 218/109 (145) Pulse Ox 98 O2 Delivery Room Air Capillary Refill : Height, Weight, BMI Height: 5'4.00" Weight: 216lbs. 4.2oz. [id number]; 22.00 BMI Method:Stated General Appearance: No Apparent Distress, WD/WN Eyes: Bilateral Eye Normal Inspection, Bilateral Eye PERRL, Bilateral Eye EOMI HEENT: PERRL/EOMI, TMs Normal, Normal ENT Inspection, Pharynx Normal Neck: Full Range of Motion, Normal Inspection, Non Tender, Supple Respiratory: Chest Non Tender, Lungs Clear, Normal Breath Sounds, No Accessory Muscle Use, No Respiratory Distress Cardiovascular: Regular Rate, Rhythm, No Edema, No Gallop, No JVD, No Murmur Gastrointestinal: Normal Bowel Sounds, No Organomegaly, No Pulsatile Mass, Non Tender, Soft Extremity: Normal Capillary Refill, Normal Inspection, Normal Range of Motion, Non Tender Neurologic/Psychiatric: Alert, Oriented x3, No Motor/Sensory Deficits, Normal Mood/Affect Skin: Normal Color, Warm/Dry Progress/Results/Core Measures Suspected Sepsis SIRS Temperature: Pulse: Respiratory Rate: Laboratory Tests 05/15/22 13:25: White Blood Count 6.5 Blood Pressure / Mean: Laboratory Tests 05/15/22 13:25: Creatinine 1.16, INR Comment 1.0, Platelet Count 212, Total Bilirubin 0.3 Results/Orders Lab Results Laboratory Tests Test 05/15/22 13:25 05/15/22 13:36 05/15/22 14:19 Range/Units White Blood Count 6.5 4.3-11.0 10^3/uL Red Blood Count 4.50 3.80-5.11 10^6/uL Hemoglobin 13.1 11.5-16.0 g/dL Hematocrit 40 35-52 % Mean Corpuscular Volume 90 80-99 fL Mean Corpuscular Hemoglobin 29 25-34 pg Mean Corpuscular Hemoglobin Concent 32 32-36 g/dL Red Cell Distribution Width 12.8 10.0-14.5 % Platelet Count 212 130-400 10^3/uL Mean Platelet Volume 9.2 9.0-12.2 fL Immature Granulocyte % (Auto) 0 % Neutrophils (%) (Auto) 69 42-75 % Lymphocytes (%) (Auto) 20 12-44 % Monocytes (%) (Auto) 8 0-12 % Eosinophils (%) (Auto) 2 0-10 % Basophils (%) (Auto) 1 0-10 % Neutrophils # (Auto) 4.4 1.8-7.8 10^3/uL Lymphocytes # (Auto) 1.3 1.0-4.0 10^3/uL Monocytes # (Auto) 0.5 0.0-1.0 10^3/uL Eosinophils # (Auto) 0.1 0.0-0.3 10^3/uL Basophils # (Auto) 0.1 0.0-0.1 10^3/uL Immature Granulocyte # (Auto) 0.0 0.0-0.1 10^3/uL Prothrombin Time 13.1 12.2-14.7 SEC INR Comment 1.0 0.8-1.4 Activated Partial Thromboplast Time 43 H 24-35 SEC Sodium Level 141 135-145 MMOL/L Potassium Level 3.9 3.6-5.0 MMOL/L Chloride Level 110 H 98-107 MMOL/L Carbon Dioxide Level 22 21-32 MMOL/L Anion Gap 9 5-14 MMOL/L Blood Urea Nitrogen 20 H 7-18 MG/DL Creatinine 1.16 0.60-1.30 MG/DL Estimat Glomerular Filtration Rate 50 BUN/Creatinine Ratio 17 Glucose Level 219 H 70-105 MG/DL Calcium Level 8.2 L 8.5-10.1 MG/DL Corrected Calcium 8.4 L 8.5-10.1 MG/DL Magnesium Level 2.0 1.6-2.4 MG/DL Total Bilirubin 0.3 0.1-1.0 MG/DL Aspartate Amino Transf (AST/SGOT) 12 5-34 U/L Alanine Aminotransferase (ALT/SGPT) 13 0-55 U/L Alkaline Phosphatase 102 40-136 U/L Troponin I < 0.028 <0.028 NG/ML B-Type Natriuretic Peptide 27.5 <100.0 PG/ML Total Protein 6.9 6.4-8.2 GM/DL Albumin 3.8 3.2-4.5 GM/DL Urine Color YELLOW Urine Clarity CLEAR Urine pH 6.0 5-9 Urine Specific Orange >=1.030 1.016-1.022 Urine Protein 3+ H NEGATIVE Urine Glucose (UA) 1+ H NEGATIVE Urine Ketones NEGATIVE NEGATIVE Urine Nitrite NEGATIVE NEGATIVE Urine Bilirubin NEGATIVE NEGATIVE Urine Urobilinogen 0.2 < = 1.0 MG/DL Urine Leukocyte Esterase 2+ H NEGATIVE Urine RBC (Auto) TRACE-I H NEGATIVE Urine RBC NONE /HPF Urine WBC 10-25 H /HPF Urine Squamous Epithelial Cells 5-10 /HPF Urine Crystals NONE /LPF Urine Bacteria FEW H /HPF Urine Casts NONE /LPF Urine Mucus NEGATIVE /LPF Urine Culture Indicated YES Influenza Type A (RT-PCR) Not Detected Not Detecte Influenza Type B (RT-PCR) Not Detected Not Detecte SARS-CoV-2 RNA (RT-PCR) Not Detected Not Detecte Micro Results Microbiology 05/15/22 Urine Culture - Preliminary, Resulted Culture In Progress My Orders Orders - NEPTALI LOPEZ Covid 19 Inhouse Test (05/15/22 13:10) Influenza A And B By Pcr (05/15/22 13:10) Urinalysis (05/15/22 13:10) Ct Head Wo (05/15/22 13:22) Cbc With Automated Diff (05/15/22 13:22) Comprehensive Metabolic Panel (05/15/22 13:22) Magnesium (05/15/22 13:22) Partial Thromboplastin Time (05/15/22 13:22) Protime With Inr (05/15/22 13:22) Bnp Dickenson (05/15/22 13:22) Troponin I Dickenson (05/15/22 13:22) Ns Iv 1000 Ml (Sodium Chloride 0.9%) (05/15/22 13:22) Hydralazine Injection (Apresoline Inject (05/15/22 13:30) Chest 1 View, Ap/Pa Only (05/15/22 13:22) Urine Culture (05/15/22 13:36) Fentanyl Inj (Sublimaze Injection) (05/15/22 14:27) Ondansetron Injection (Zofran Injectio (05/15/22 14:30) Ekg Tracing (05/15/22 14:29) Labetalol Injection (Normodyne Injection (05/15/22 14:45) Hydrocodone/Apap 5/325 Tablet (Lortab 5 (05/15/22 16:00) Medications Given in ED Vital Signs/I&O 05/15/22 05/15/22 13:11 16:00 Temp 36.6 36.6 Pulse 97 90 Resp 18 18 B/P (MAP) 218/109 (145) 168/82 Pulse Ox 98 99 O2 Delivery Room Air Room Air 05/16/22 00:00 Intake Total 1000 ml Balance 1000 ml Capillary Refill : ECG Comment Sinus rhythm, minimal ST depression, 94 bpm, QRS duration 84 MS, QTC 418 MS Departure Communication (PCP) Patient presents ED with flulike symptoms and elevated blood pressure. She is currently on metoprolol, amlodipine and clonidine. Elevated blood pressure over the past 2 days. Patient neuro exam unremarkable. CT head was negative for acute abnormality. She does report a headache. Denies worst headache of her life. No meningeal signs. COVID influenza negative. She states she is currently on Cipro with an increased dose of for UTI. She is allergic to penicillins, cephalosporins. History of kidney insufficiency. She has had a positive culture in February for E. coli. Due to her kidney function limited with antibiotics. Discussed with patient would likely be better at this time to wait for the culture and continue with the Cipro secondary to limitation of medication. If no improvement would require IV antibiotics. Patient blood pressure improved from 218/109-168/82 after IV hydralazine and labetalol. She she is allergic to most medication for migraine cocktail. She states she is had fentanyl in the past which I discussed with patient that is not typical medication use for migraine cocktail. She states she has received fentanyl with improvement of her migraine in the past. She is given a dose of fentanyl with improvement of her headache as well as her generalized pain. Cardiac work-up unremarkable. No end organ damage at this time. Complete resolution of head pain. She states today head pain feels very similar to her previous migraine. Strongly recommend continue monitoring blood pressure. Discussed follow-up with your PCP in a few days for recheck of her blood pressure. She does not want to make any adjustments until she sees her primary care physician. May need to make some adjustments if continue elevation of BP. She states she feels much better at this time. No focal neural deficits. NIH is 0. Return precaution were discussed. Lab work was otherwise unremarkable. Impression Primary Impression: Hypertension Additional Impressions: UTI (urinary tract infection) Flu-like symptoms Disposition: HOME, SELF-CARE Condition: Stable Departure-Patient Inst. Decision time for Depature: 15:51 Referrals: [facility] (PCP) Primary Care Physician JAVIER MOSS (Family) Primary Care Physician Patient Instructions: Urinary Tract Infection, Adult ED Add. Discharge Instructions: Recommend continue with your blood pressure medication and monitor daily. Follow-up outpatient with with your primary care physician for further evaluation of uti and blood pressure. If any worsening urinary symptoms follow- up with your PCP or return back to ED. All discharge instructions reviewed with patient and/or family. Voiced understanding. Scripts Ondansetron (Ondansetron Odt) 4 Mg Tab.rapdis 4 MG PO Q4H PRN for NAUSEA/VOMITING-1ST LINE, #8 TAB Prov: NEPTALI LOPEZ 05/15/22 NEPTALI LOPEZ May 15, 2022 13:28
[2022-05-15] MEDS ORDERED: hydrALAZINE (APESOLINE) 20 MG/ML VIAL IV ONE (13:30)
[2022-05-15 13:41] LABS: BASOPHILS # (AUTO) 0.1 10^3/uL (0.0-0.1); BASOPHILS % (AUTO) 1 % (0-10); EOSINOPHILS # (AUTO) 0.1 10^3/uL (0.0-0.3); EOSINOPHILS % (AUTO) 2 % (0-10); HEMATOCRIT 40 % (35-52); HEMOGLOBIN 13.1 g/dL (11.5-16.0); LYMPHOCYTES # (AUTO) 1.3 10^3/uL (1.0-4.0); LYMPHOCYTES % (AUTO) 20 % (12-44); MEAN CORPUSCULAR HEMOGLOBIN 29 pg (25-34); MEAN CORPUSCULAR HGB CONC 32 g/dL (32-36); MEAN CORPUSCULAR VOLUME 90 fL (80-99); MEAN PLATELET VOLUME 9.2 fL (9.0-12.2); MONOCYTES # (AUTO) 0.5 10^3/uL (0.0-1.0); MONOCYTES % (AUTO) 8 % (0-12); NEUTROPHILS # (AUTO) 4.4 10^3/uL (1.8-7.8); NEUTROPHILS % (AUTO) 69 % (42-75); PLATELET COUNT 212 10^3/uL (130-400); WHITE BLOOD COUNT 6.5 10^3/uL (4.3-11.0)
[2022-05-15 13:46] LABS: BILIRUBIN,URINE NEGATIVE (NEGATIVE); CLARITY,URINE CLEAR; COLOR,URINE YELLOW; GLUCOSE, URINE (UA) 1+ (NEGATIVE); KETONES,URINE NEGATIVE (NEGATIVE); LEUKOCYTE ESTERASE ,URINE 2+ (NEGATIVE); NITRITE,URINE NEGATIVE (NEGATIVE); PROTEIN,URINE 3+ (NEGATIVE)
[2022-05-15 13:48] LABS: ALBUMIN 3.8 GM/DL (3.2-4.5)
[2022-05-15 13:49] LABS: CHLORIDE 110 MMOL/L (98-107); POTASSIUM 3.9 MMOL/L (3.6-5.0); SODIUM 141 MMOL/L (135-145)
[2022-05-15 13:50] LABS: CALCIUM 8.2 MG/DL (8.5-10.1)
[2022-05-15 13:51] LABS: GLUCOSE 219 MG/DL (70-105); TOTAL PROTEIN 6.9 GM/DL (6.4-8.2)
[2022-05-15 13:52] LABS: CARBON DIOXIDE 22 MMOL/L (21-32)
[2022-05-15 13:53] LABS: BILIRUBIN,TOTAL 0.3 MG/DL (0.1-1.0)
[2022-05-15 13:54] LABS: BACTERIA,URINE FEW /HPF
[2022-05-15 13:54] LABS: ALKALINE PHOSPHATASE 102 U/L (40-136)
[2022-05-15 13:55] LABS: CREATININE SERUM 1.16 MG/DL (0.60-1.30); GFR ESTIMATED 50; PROTHROMBIN TIME PATIENT 13.1 SEC (12.2-14.7)
[2022-05-15 13:56] LABS: BUN/CREATININE RATIO 17
[2022-05-15 13:58] LABS: ALANINE AMINOTRANSFERASE 13 U/L (0-55)
[2022-05-15] MEDS ORDERED: fentaNYL INJ 100 MCG/2 ML AMP IVP STA (14:27)
[2022-05-15] MEDS ORDERED: ONDANSETRON 4 MG/2 ML (SDV) Z0FRAN IVP ONE (14:30)
[2022-05-15] MEDS ORDERED: LABETALOL HCL 20 MG/4 ML VIAL IV ONE (14:45)
--- NOTE | 2022-05-15 14:53 | Diagnostic Imaging Report ---
INDICATION: Cough. Comparison with 02/22/2022. FINDINGS: Chronic elevation of the right hemidiaphragm is noted. The lungs remain clear. The heart is mildly enlarged. There is no evidence of pulmonary edema. No pneumothorax or pleural effusions. Port-A-Cath is again noted on the left. IMPRESSION: No acute changes are seen when compared with previous exam. Dictated by: Dictated on workstation # [id number]
--- NOTE | 2022-05-15 15:13 | Diagnostic Imaging Report ---
PROCEDURE: CT head without contrast. TECHNIQUE: Multiple contiguous axial images were obtained through the brain without the use of intravenous contrast. Auto Exposure Controls were utilized during the CT exam to meet ALARA standards for radiation dose reduction. INDICATION: Head pain. COMPARISON: November 16, 2021. FINDINGS: Moderate atrophy. Calcifications within the bilateral basal ganglia are again identified. No intracranial hemorrhage. Minimal background chronic small vessel white matter ischemic disease is again identified. Chronic lacunar infarction versus dilated perivascular space within the inferior right basal ganglia is again identified and stable. No definite CT evidence of an acute ischemic infarction. The left ocular lens is absent. Background vascular calcifications. The paranasal sinuses are clear. The calvarium and extracalvarial soft tissues are unremarkable. IMPRESSION: No acute intracranial abnormality with moderate atrophy and minimal background chronic ischemic changes, as above. Dictated by: Dictated on workstation # [id number]
[2022-05-15] MEDS ORDERED: ONDA4TAB11 PO ×2 (15:51→16:05)
[2022-05-15 16:00] VITALS: BP 168/82
[2022-05-15] MEDS ORDERED: HYDROcodone/APAP 5 MG/325 MG (LORTAB) TAB PO ONE (16:00)
== END 2022-05-15 16:00 | disposition home or self-care (01) ==
LOC: EDUNIT# 13:01 → ER 13:03
DX: I10 Essential (primary) hypertension (principal); N39.0 Urinary tract infection, site not specified; J02.9 Acute pharyngitis, unspecified; J34.89 Other specified disorders of nose and nasal sinuses; R11.2 Nausea with vomiting, unspecified; R19.7 Diarrhea, unspecified; G43.909 Migraine, unspecified, not intractable, without status migrainosus; Z87.448 Personal history of other diseases of urinary system; Z88.0 Allergy status to penicillin; Z88.1 Allergy status to other antibiotic agents; Z87.19 Personal history of other diseases of the digestive system; Z90.710 Acquired absence of both cervix and uterus; Z90.722 Acquired absence of ovaries, bilateral; Z79.899 Other long term (current) drug therapy; Z86.16 Personal history of COVID-19; Z20.822 Contact with and (suspected) exposure to COVID-19; Z28.311 Partially vaccinated for COVID-19
CPT/HCPCS: 36415; 70450; 71045; 80053; 81000; 83735; 83880; 84484; 85025; 85610; 85730; 87088; 87636; 93005

== ENCOUNTER → 2022-05-15 | Outpatient (CLI) | payer MEDICARE ==
[~2022-05-15] MED LIST changes: -HEParin (CENTRAL IV FLUSH) 500 UNIT/5 ML SYR IV ONE; +METR-145 PO
== END ==
LOC: SDC 12:21
PROVIDERS: ATTEND Physician Assistant
DX: Z95.828 Presence of other vascular implants and grafts (principal)

== ENCOUNTER → 2022-06-19 | Outpatient (CLI) | payer MEDICARE ==
[~2022-06-19] MED LIST changes: +HEParin (CENTRAL IV FLUSH) 500 UNIT/5 ML SYR IV ONE; +HEParin (CENTRAL IV FLUSH) 500 UNIT/5 ML SYR ONE; +METR-145 PO
[2022-06-19 12:10] VITALS: BP 192/93
== END ==
LOC: SDC 12:05
PROVIDERS: ATTEND Physician Assistant
DX: Z95.828 Presence of other vascular implants and grafts (principal)
CPT/HCPCS: 96523

== ENCOUNTER 2022-07-02 02:19 | Emergency (ER) | payer MEDICARE ==
[~2022-07-02] VITALS: Ht 162.5 cm; Wt 70.3 kg
[~2022-07-02 02:19] MED LIST changes: -HEParin (CENTRAL IV FLUSH) 500 UNIT/5 ML SYR IV ONE; -HEParin (CENTRAL IV FLUSH) 500 UNIT/5 ML SYR ONE; +LABE200T10 PO; -LABE200T7 PO; +LEVO750T PO; -LEVO750T39 PO
[2022-07-02] MEDS ORDERED: morphine INJ 10 MG/ML 1ML (SYR OR VIAL) IVP STA (02:22)
--- NOTE | 2022-07-02 02:29 | ED Fall/Injury ---
General Chief Complaint: Trauma-Non Activation Stated Complaint: FALL Source: patient Exam Limitations: no limitations History of Present Illness Date Seen by Provider: Jul 02, 2022 Time Seen by Provider: 02:10 Initial Comments Patient to the ER by EMS from home with chief complaint that she stepped out onto her porch about 1800 yesterday evening and fell. She is having pain in her ankle bilaterally. She is also having some pain in her right hip and right wr ist where she fell on. She has broke her right wrist in the past. She is had her knees and right shoulder done by Dr. Meneses in the past. She denies striking her head nor loss of consciousness. She is not having any nausea or vomiting. She is on Eliquis with a history of atrial fibrillation and coronary artery disease. She is known to Dr. Singh and [facility]. She rates her pain in her right ankle as a 12 out of 10. She last took a hydrocodone at 1800 after the fall. She denies alcohol use. Allergies and Home Medications Allergies Coded Allergies: clopidogrel (Verified Allergy, Severe, BLOOD CLOTS, 11/27/18) Penicillins (Verified Allergy, Mild, RASH, 11/27/18) carisoprodol (Verified Allergy, Mild, RASH, 11/27/18) cephalexin (Verified Allergy, Mild, RASH, 11/27/18) ketorolac (Verified Allergy, Mild, RASH, 11/27/18) prochlorperazine (Verified Allergy, Mild, RASH, 11/27/18) Carbamates (Verified Allergy, Unknown, Rash, 05/28/19) Patient Home Medication List Home Medication List Reviewed: Yes Albuterol Sulfate (Albuterol Sulfate) 2.5 Mg/3 Ml Vial.neb, 2 PUFF INH Q4H PRN for SHORTNESS OF BREATH Prescribed by: DASIA FRANKLIN on 11/25/20 1101 Amlodipine Besylate (Amlodipine Besylate) 10 Mg Tablet, 10 MG PO DAILY, (Rep orted) Entered as Reported by: ETHEL JONES on 11/14/20 1527 Aspirin (Aspirin EC) 81 Mg Tablet.dr, 81 MG PO DAILY Prescribed by: OLIVE ISAAC on 11/21/20 1010 Atorvastatin Calcium (Atorvastatin Calcium) 40 Mg Tablet, 40 MG PO HS, (Reported) Entered as Reported by: REMA LIZAMA on 09/03/19 1408 Cholecalciferol (Vitamin D3) (Vitamin D3) 50 Mcg Tablet, 50 MCG PO DAILY, (Reported) Entered as Reported by: ETHEL JONES on 11/14/20 1527 Ciprofloxacin HCl (Ciprofloxacin HCl) 500 Mg Tablet, 500 MG PO BID Prescribed by: TAYLOR FORRESTER on 02/22/22 1506 Codeine/Butalbital/ASA/Caffein (PET-Uwcshv-Mcmn-Cod #3 Capsule) 1 Each Capsule, 1 EACH PO DAILY PRN for MIGRAINE, (Reported) Entered as Reported by: ETHEL JONES on 11/14/20 1527 Duloxetine HCl (Cymbalta) 30 Mg Capsule.dr, 30 MG PO DAILY, (Reported) Entered as Reported by: BARRETT DANIELLE on 11/27/18 0949 Folic Acid (Folic Acid) 1 Mg Tablet, 1 MG PO DAILY, (Reported) Entered as Reported by: NAOMY ESTRADA on 05/28/19 1246 Hydrocodone/Acetaminophen (Hydrocodone-Acetamin 10-325 mg) 10 Mg-325 Mg Tablet, 1 EACH PO Q6H PRN for PAIN-BREAKTHROUGH Prescribed by: GUSTABO CARRINGTON on 07/02/22 0356 Hydroxychloroquine Sulfate (Hydroxychloroquine Sulfate) 200 Mg Tablet, 200 MG PO BID, (Reported) Entered as Reported by: NAOMY ESTRADA on 05/28/19 1252 Hyoscyamine Sulfate (Levsin-Sl) 0.125 Mg Tab.subl, 0.25 MG SL Q4H Prescribed by: RAPHAEL DUNCAN on 11/26/202106 Levetiracetam (Levetiracetam) 500 Mg Tablet, 500 MG PO BID Prescribed by: OLIVE ISAAC on 11/21/20 1010 Metoprolol Succinate (Metoprolol Succinate) 100 Mg Tab.er.24h, 100 MG PO DAILY, (Reported) Entered as Reported by: REMA LIZAMA on 09/03/19 1408 Metronidazole (Metronidazole) 500 Mg Tablet, 500 MG PO BID Prescribed by: GUSTABO CARRINGTON on 05/23/22 1517 Ondansetron (Ondansetron Odt) 4 Mg Tab.rapdis, 4 MG PO Q4H PRN for NAUSEA-1ST LINE Prescribed by: DASIA FRANKLIN on 11/25/20 1101 Ondansetron (Ondansetron Odt) 8 Mg Tab.rapdis, 8 MG PO Q6H Prescribed by: RAPHAEL DUNCAN on 11/26/202106 Ondansetron (Ondansetron Odt) 4 Mg Tab.rapdis, 4 MG PO Q4H PRN for NAUSEA/VOMITING-1ST LINE Prescribed by: TAYLOR FORRESTER on 05/15/22 1605 Pantoprazole Sodium (Pantoprazole Sodium) 40 Mg Tablet.dr, 40 MG PO DAILY, (Reported) Entered as Reported by: BARRETT DANIELLE on 11/27/18 0949 Pantoprazole Sodium (Protonix) 40 Mg Tablet.dr, 40 MG PO DAILY Prescribed by: RAPHAEL DUNCAN on 11/26/202106 Prednisone (Prednisone) 20 Mg Tab, 40 MG PO DAILY Prescribed by: JARED ODELL on 03/26/21 1523 Topiramate (Topiramate) 50 Mg Tablet, 75 MG PO BID, (Reported) Entered as Reported by: BARRETT DANIELLE on 11/27/18 0949 Review of Systems Review of Systems Constitutional: No chills, No diaphoresis Eyes: See HPI; Denies Blindness, Denies Blurred Vision Ears, Nose, Mouth, Throat: denies ear pain, denies ear discharge Respiratory: No cough, No short of breath Cardiovascular: No chest pain, No edema Gastrointestinal: No abdominal pain, No nausea, No vomiting Genitourinary: No discharge, No dysuria Musculoskeletal: see HPI; No back pain; joint pain All Other Systems Reviewed Negative Unless Noted: Yes Past Onqhwob-Zwbaqo-Pusism Hx Patient Social History Tobacco Use?: No Use of E-Cig and/or Vaping dev: No Substance use?: No Alcohol Use?: No Pt feels they are or have been: No Immunizations Up To Date Tetanus Booster (TDap): Unknown Influenza Vaccine Up-to-Date: No; Not Current First/Initial COVID19 Vaccinat: 02/2021 Second COVID19 Vaccination Enrique: 02/2021 Third COVID19 Vaccination Date: 02/2021 Seasonal Allergies Seasonal Allergies: No Past Medical History Surgery/Hospitalization HX: RT SHOULDER, BREAST, HYSTERECTOMY, THRYOIDECTOMY, CARDIAC STENT, A FIB, VA, PANCREATITIS, STROKE, PNEUMONIA, COVID-19 11/10, DVT, HIGH CHOLESTEROL, HTN, LOOP RECORDER, LT SUB CLAVIAN PORT Surgeries: Yes (R CTR, espohageal ligation x2, Hernia, L RCR, L TKR, laparotomy, MRSA infec) Abdominal, Breast, Cardiac, Coronary Stent, Hysterectomy, Joint Replacement, Oop horectomy, Orthopedic, Thyroidectomy Respiratory: Yes (COVID-19 November 07, 2020-ADMITTED WITH PNEUMONIA) Pneumonia Currently Using CPAP: No Currently Using BIPAP: No Cardiac: Yes (HX HEART CATH-STENT;MILD BILAT CAROTID STENOSIS;DVT L ARM DUE TO PICC LINE) Coronary Artery Disease, Deep Vein Thrombosis, Heart Attack, High Cholesterol, Hypertension, Peripheral Vascular Neurological: Yes Headaches /Migraines, Neuropathy 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: Hysterectomy, Menopausal Sexually Transmitted Disease: No HIV/AIDS: No Genitourinary: Yes (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,STAGE 2-KIDNEY DISEASE;DIABETIC NEPHROPA ) Bladder Infection, Renal Failure, Dialysis Gastrointestinal: Yes (HX GI BLEED, zenkers syndrome-chokes easily, hx hep A;LIVER INJURY/TRAUMA) Abdominal Hernia, Gastroesophageal Reflux, Gastrointestinal Bleed, Esophageal Varices, Hepatitis Musculoskeletal: Yes (OSTEOARTHRITIS, BULGING DISCS) Arthritis, Chronic Back Pain Endocrine: Yes (partial thyroidectomy) Hypothyroidsim HEENT: Yes (GLASSES, UPPER DENTURES) Glaucoma Loss of Vision: Bilateral Cancer: Yes Breast Did You Recieve Any Treatments: Yes What Type of Treatment Did You: Radiation, Surgical Intervention Psychosocial: No Integumentary: No Blood Disorders: Yes (IRON DEFFICIENCY ANEMIA-GETS IRON INFUSIONS) Adverse Reaction/Blood Tranf: No (HAS HAD BLOOD WITH NO REACTION) Family Medical History Hypertension G8 BROTHER Not obtainable due to adoption 19 FATHER Heart Disease, Hypertension ADDITIONAL PAST SURGICAL HISTORY -ZENKER'S DIVERTICULUM SURGERY X 2 -ABDOMINAL HERNIA REPAIR WITH MESH -MESH REMOVAL AND LYSIS OF ADHESIONS -HYST/BSO -LOOP RECORDER -PORT LEFT CHEST -LEFT BREAST LUMPECTOMY -CARDIAC CATH WITH STENT X 1 TO RCA 2010 -PORT LEFT CHEST -RIGHT SHOULDER REPLACEMENT -RENAL ARTERY STENOSIS WITH STENT 2013 Physical Exam Vital Signs Vital Signs - First Documented 07/02/22 02:20 Temp 36.8 Pulse 88 Resp 20 B/P (MAP) 184/107 (132) Pulse Ox 97 O2 Delivery Room Air Capillary Refill : Height, Weight, BMI Height: 5'4.00" Weight: 216lbs. 4.2oz. 98.211356yk; 25.00 BMI Method:Stated General Appearance: WD/WN, mild distress HEENT: PERRL/EOMI, pharynx normal Neck: full range of motion, normal inspection Cardiovascular: normal peripheral pulses, regular rate, rhythm, no edema Respiratory: lungs clear, normal breath sounds, no respiratory distress, no accessory muscle use Gastrointestinal: normal bowel sounds, non tender, soft Extremities: normal range of motion, normal inspection, normal capillary refill, other (Tenderness to palpation over the lateral malleolus posteriorly of the right ankle. Tenderness over the right wrist radial and ulna with old deformity noted. Full range of motion of the elbow, shoulder, knee and hip on the right side. Some tenderness to palpation over the greater trochanter of the right femur.) Neurologic/Psychiatric: alert, normal mood/affect, oriented x 3 Skin: normal color, warm/dry Irons Coma Score Best Eye Response: (4) Open Spontaneously Best Verbal Response: (5) Oriented Best Motor Response: (6) Obeys Commands Irons Total: 15 Progress/Results/Core Measures Results/Orders My Orders Orders - GUSTABO CARRINGTON Morphine Injection (Morphine Injection (07/02/22 02:22) Ct Head/Cervical Spine Wo (07/02/22 ) Ankle, Right, 3 Views (07/02/22 ) Hip, Right, 2 Views (07/02/22 ) Wrist, Right, 3 Views Or More (07/02/22 ) Ondansetron Oral Dissolve Tab (Zofran (07/02/22 03:30) Ondansetron Oral Dissolve Tab (Zofran (07/02/22 03:26) Hydrocodone/Apap 5/325 Tablet (Lortab 5 (07/02/22 04:00) Medications Given in ED Vital Signs/I&O 07/02/22 07/02/22 02:20 03:59 Temp 36.8 Pulse 88 79 Resp 20 20 B/P (MAP) 184/107 (132) 166/93 Pulse Ox 97 99 O2 Delivery Room Air Room Air Progress Progress Note #1: Time: 02:28 Progress Note The patient is quite animated and endorses pain. We will give her 6 mg of IV morphine. She routinely uses hydrocodone for pain. Because of her use of Eliquis we will get a CT of her head and C-spine to rule out bleed. Progress Note #2: Time: 03:53 Progress Note We will put her in a boot for her potential occult fracture of her right foot. We will give her some hydrocodone and have her follow-up outpatient with podiatry. Diagnostic Imaging Diagonstic Imaging: Xray Plain Films/CT/US/NM/MRI: hand (Right wrist) Comments Old fracture deformities noted. No acute fracture or dislocation. [facility] [place] [place] NAME: KEO AGUIRRE MED REC#: [id number] PT STATUS: DEP ER : 1950 PHYSICIAN: GUSTABO CARRINGTON MD ADMIT DATE: 07/02/22/ER Signed Date of Exam:07/02/22 WRIST, RIGHT, 3 VIEWS OR MORE Indication: Pain. Compared: 10/15/2021 Findings: Old deformities to the distal radius and distal ulna are identical in appearance to the previous with the dorsal angulation of the major distal radius unchanged. No articular offset and no lucent or acute-appearing fracture deformity. Arthritic changes are present, greatest at the 1st [facility] chronic, no new injury apparent. Impression: 1. Stable chronic findings with old bony deformities to the distal radius and ulna with chronic osteoarthritis. 2. No acute fracture apparent. Dictated by: Dictated on workstation # [id number] Dict: 07/02/22627 Trans: 07/02/221118 [facility] [id number] Interpreted by: KIT BRITO Electronically signed by: KIT BRITO 07/02/22 1119 Reviewed: Reviewed by Me Diagonstic Imaging: Xray Plain Films/CT/US/NM/MRI: hip (Right) Comments No acute osseous abnormality. [facility] [place] [place] NAME: KEO AGUIRRE MED REC#: [id number] PT STATUS: DEP ER : 1950 PHYSICIAN: GUSTABO CARRINGTON MD ADMIT DATE: 07/02/22/ER Signed Date of Exam:07/02/22 HIP, RIGHT, 2 VIEWS INDICATION: Fall, pain. FINDINGS: Two-view right hip shows osteoarthritic joint space narrowing with no fracture, dislocation or avulsion. Vascular calcifications chronic. IMPRESSION: Degenerative and atherosclerotic changes but no fracture identified. Dictated by: Dictated on workstation # [id number] Dict: 07/02/2227 Trans: 07/02/22 1119 [facility] [id number] Interpreted by: KIT BRITO Electronically signed by: KIT BRITO 07/02/22 1119 Reviewed: Reviewed by Nm Diagonstic Imaging: CT Plain Films/CT/US/NM/MRI: c-spine, head Comments No intracranial hemorrhage, mass-effect or midline shift. No calvarial fracture. No C-spine fracture, malalignment or subluxation. [facility] [place] [place] NAME: KEO AGUIRRE [facility] REC#: [id number] PT STATUS: DEP ER : 1950 PHYSICIAN: GUSTABO CARRINGTON MD ADMIT DATE: 07/02/22/ER Signed Date of Exam:07/02/22 CT HEAD/CERVICAL SPINE WO PROCEDURE: CT head and CT cervical spine without contrast. TECHNIQUE: Multiple contiguous axial images were obtained through the brain and cervical spine without the use of intravenous contrast. Sagittal and coronal reformations through the cervical spine were then performed. Auto Exposure Controls were utilized during the CT exam to meet ALARA standards for radiation dose reduction. INDICATION: Fall with pain. COMPARISON: 05/15/2022. CT HEAD: There is no hemorrhage, hydrocephalus, cerebral edema, mass, mass effect nor evidence for elevation of the intracerebral pressures. Cerebral cortical volume unremarkable for age. Some chronic intracranial atherosclerotic vascular calcifications. No hemo-sinus. No pneumocephalus or fracture deformity. Cervical spine: Body heights maintained. Alignment anatomic. Craniocervical relationship in the central skull base intact. No cervical spinal fracture or paravertebral hemorrhage. There is atherosclerotic vascular calcifications. Hyoid, tracheal cartilage and structures of the larynx showed no traumatic deformity. Thoracic inlet unremarkable. IMPRESSION: Stable chronic findings at CT head and cervical spine. Agree with preliminary. Dictated by: Dictated on workstation # [id number] Dict: 07/02/2214 Trans: 07/02/[address] [place] [address] [id number] Interpreted by: KIT BRITO Electronically signed by: KIT BRITO 07/02/221118 Reviewed: Reviewed Night Huang Study, Reviewed by Me Diagonstic Imaging: Xray Plain Films/CT/US/NM/MRI: ankle (Right) Comments Perhaps a small lateral avulsion fracture of the talus/calcaneus seen on 1 view. [facility] [place] [place] NAME: KEO AGUIRRE [facility] REC#: [id number] PT STATUS: DEP ER : 1950 PHYSICIAN: GUSTABO CARRINGTON MD ADMIT DATE: 07/02/22/ER Signed Date of Exam:07/02/22 ANKLE, RIGHT, 3 VIEWS INDICATION: Fall, pain. COMPARISON: 06/30/2020. FINDINGS: 3 view right ankle showed no fracture, dislocation or acute appearing bony abnormality. When compared with study of 06/30/2020, there has been regression of soft tissue swelling. No widening of the mortise. Plantar calcaneal spurring chronic. IMPRESSION: No acute appearing abnormality. Dictated by: Dictated on workstation # [id number] Dict: 07/02/2226 Trans: 07/02/22 [facility] [id number] Interpreted by: KIT BRITO Electronically signed by: KIT BRITO 07/02/229 Reviewed: Reviewed by Me Departure Impression Primary Impression: Fall on stairs Qualified Codes: W10.9XXA - Fall (on) (from) unspecified stairs and steps, initial encounter Additional Impressions: Right wrist pain Lumbago with sciatica, right side Qualified Codes: M54.41 - Lumbago with sciatica, right side Foot fracture, right Qualified Codes: S92.901A - Unspecified fracture of right foot, initial encounter for closed fracture Contusion of right hip, initial encounter Disposition: 01 HOME, SELF-CARE Condition: Stable Departure-Patient Inst. Decision time for Depature: 03:53 Referrals: [facility] [place] Primary Care Physician JAVIER MOSS (Family) Primary Care Physician BLAJAVIER WAKEFIELD DPM, ROBERT F DO Patient Instructions: Foot Fracture ED Add. Discharge Instructions: Ice 20 minutes on every 2 hours while awake for the first 2 to 3 days to reduce swelling and pain. Elevate your wrist and ankle above the level of your heart to reduce swelling and pain. Tylenol 1000 mg every 8 hours as needed for pain. Hydrocodone 1 tablet every 6 hours as needed for pain. Make follow-up appointments with your orthopedic surgeon or Dr. Valdivia to reexamine your right foot within the next week. All discharge instructions reviewed with patient and/or family. Voiced understanding. Scripts Hydrocodone/Acetaminophen (Hydrocodone-Acetamin 10-325 mg) 10 Mg-325 Mg Tablet 1 EACH PO Q6H PRN for PAIN-BREAKTHROUGH, #15 TAB 0 Refills Prov: GUSTABO CARRINGTON 07/02/22 GUSTABO CARRINGTON Jul 02, 2022 02:29
[2022-07-02] MEDS ORDERED: ONDANSETRON 4 MG (ZOFRAN) ORAL DISSOLVE TAB ONE (03:26)
[2022-07-02] MEDS ORDERED: ONDANSETRON 4 MG (ZOFRAN) ORAL DISSOLVE TAB PO ONE (03:30)
[2022-07-02] MEDS ORDERED: HYDR-3820 PO (03:55)
[2022-07-02 03:59] VITALS: BP 166/93
[2022-07-02] MEDS ORDERED: HYDROcodone/APAP 5 MG/325 MG (LORTAB) TAB PO ONE (04:00)
--- NOTE | 2022-07-02 06:28 | Diagnostic Imaging Report ---
PROCEDURE: CT head and CT cervical spine without contrast. TECHNIQUE: Multiple contiguous axial images were obtained through the brain and cervical spine without the use of intravenous contrast. Sagittal and coronal reformations through the cervical spine were then performed. Auto Exposure Controls were utilized during the CT exam to meet ALARA standards for radiation dose reduction. INDICATION: Fall with pain. COMPARISON: 05/15/2022. CT HEAD: There is no hemorrhage, hydrocephalus, cerebral edema, mass, mass effect nor evidence for elevation of the intracerebral pressures. Cerebral cortical volume unremarkable for age. Some chronic intracranial atherosclerotic vascular calcifications. No hemo-sinus. No pneumocephalus or fracture deformity. Cervical spine: Body heights maintained. Alignment anatomic. Craniocervical relationship in the central skull base intact. No cervical spinal fracture or paravertebral hemorrhage. There is atherosclerotic vascular calcifications. Hyoid, tracheal cartilage and structures of the larynx showed no traumatic deformity. Thoracic inlet unremarkable. IMPRESSION: Stable chronic findings at CT head and cervical spine. Agree with preliminary. Dictated by: Dictated on workstation # [id number]
--- NOTE | 2022-07-02 06:28 | Diagnostic Imaging Report ---
INDICATION: Fall, pain. COMPARISON: 06/30/2020. FINDINGS: 3 view right ankle showed no fracture, dislocation or acute appearing bony abnormality. When compared with study of 06/30/2020, there has been regression of soft tissue swelling. No widening of the mortise. Plantar calcaneal spurring chronic. IMPRESSION: No acute appearing abnormality. Dictated by: Dictated on workstation # [id number]
--- NOTE | 2022-07-02 06:29 | Diagnostic Imaging Report ---
INDICATION: Fall, pain. FINDINGS: Two-view right hip shows osteoarthritic joint space narrowing with no fracture, dislocation or avulsion. Vascular calcifications chronic. IMPRESSION: Degenerative and atherosclerotic changes but no fracture identified. Dictated by: Dictated on workstation # [id number]
--- NOTE | 2022-07-02 06:53 | Diagnostic Imaging Report ---
Indication: Pain. Compared: 10/15/2021 Findings: Old deformities to the distal radius and distal ulna are identical in appearance to the previous with the dorsal angulation of the major distal radius unchanged. No articular offset and no lucent or acute-appearing fracture deformity. Arthritic changes are present, greatest at the 1st [facility] chronic, no new injury apparent. Impression: 1. Stable chronic findings with old bony deformities to the distal radius and ulna with chronic osteoarthritis. 2. No acute fracture apparent. Dictated by: Dictated on workstation # [id number]
== END 2022-07-02 04:20 | disposition home or self-care (01) ==
LOC: EDUNIT# 02:19 → ER 02:21
DX: S92.151A Displaced avulsion fracture (chip fracture) of right talus, initial encounter for closed fracture (principal); S92.001A Unspecified fracture of right calcaneus, initial encounter for closed fracture; S70.01XA Contusion of right hip, initial encounter; M25.531 Pain in right wrist; M54.41 Lumbago with sciatica, right side; I48.91 Unspecified atrial fibrillation; Z79.01 Long term (current) use of anticoagulants; Z88.5 Allergy status to narcotic agent; W10.9XXA Fall (on) (from) unspecified stairs and steps, initial encounter
CPT/HCPCS: 70450; 72125; 73110; 73502; 73610

== ENCOUNTER 2022-10-05 07:28 | Emergency (ER) | payer MEDICARE ==
[~2022-10-05] VITALS: Ht 157 cm; Wt 68.0 kg
[~2022-10-05 07:28] MED LIST changes: +HYDR-3820 PO
--- NOTE | 2022-10-05 08:16 | ED Abdominal Pain ---
General Chief Complaint: Abdominal/GI Problems Stated Complaint: DIARRHEA/VOMITING/MIGRAINE/WEAKNESS Nursing Triage Note: ARRIVED VIA WC TO ROOM 09 WITH N/V/D ET RIGHT SIDED NECK AND EAR PAIN STARTING LAST NIGHT. PT HAS NOT TAKEN HER BP MED DUE TO VOMITING. History of Present Illness Date Seen by Provider: Oct 05, 2022 Time Seen by Provider: 08:11 Initial Comments Patient is a 72-year-old female who presents to the emergency room today with a chief complaint of nausea, vomiting onset last night around 8 PM. She states she vomited about 5 times had diarrhea 10 or 12 times. She states she subsequently developed some left anterior shoulder chest pain that radiates up into her neck and now has "a migraine from hell". She denies fevers or chills. No burning with urination. States she does have a little backache. No sick contacts that she is aware of. No recent antibiotic use. No black or bloody stools. She complains of diffuse abdominal discomfort. She is concerned that she may have pancreatitis or a bad gallbladder. She has had 2 prior episodes in the last month to 6 weeks similar to this for which she did not seek medical care. She tried Zofran at about 1 AM without relief of symptoms. All other review of systems reviewed and negative except as stated. Timing/Duration: 12 Hours Severity/Quality: Severe, Cramping Location: Generalized Abdomen Radiation: Other (right chest and shoulder and neck) Activities at Onset: None Associated Symptoms: Nausea/Vomiting, Weakness Allergies and Home Medications Allergies Coded Allergies: clopidogrel (Verified Allergy, Severe, BLOOD CLOTS, 11/27/18) Penicillins (Verified Allergy, Mild, RASH, 11/27/18) carisoprodol (Verified Allergy, Mild, RASH, 11/27/18) cephalexin (Verified Allergy, Mild, RASH, 11/27/18) ketorolac (Verified Allergy, Mild, RASH, 11/27/18) prochlorperazine (Verified Allergy, Mild, RASH, 11/27/18) Carbamates (Verified Allergy, Unknown, Rash, 05/28/19) Patient Home Medication List Home Medication List Reviewed: Yes Albuterol Sulfate (Albuterol Sulfate) 2.5 Mg/3 Ml Vial.neb, 2 PUFF INH Q4H PRN for SHORTNESS OF BREATH Prescribed by: DASIA FRANKLIN on 11/25/20 1101 Amlodipine Besylate (Amlodipine Besylate) 10 Mg Tablet, 10 MG PO DAILY, (Reported) Entered as Reported by: ETHEL JONES on 11/14/20 1527 Aspirin (Aspirin EC) 81 Mg Tablet.dr, 81 MG PO DAILY Prescribed by: OLIVE ISAAC on 11/21/20 1010 Atorvastatin Calcium (Atorvastatin Calcium) 40 Mg Tablet, 40 MG PO HS, (Reported) Entered as Reported by: REMA LIZAMA on 09/03/19 1408 Cholecalciferol (Vitamin D3) (Vitamin D3) 50 Mcg Tablet, 50 MCG PO DAILY, (Reported) Entered as Reported by: ETHEL JONES on 11/14/20 1527 Ciprofloxacin HCl (Ciprofloxacin HCl) 500 Mg Tablet, 500 MG PO BID Prescribed by: TAYLOR FORRESTER on 02/22/22 1506 Codeine/Butalbital/ASA/Caffein (PMG-Nfghtz-Epoj-Cod #3 Capsule) 1 Each Capsule, 1 EACH PO DAILY PRN for MIGRAINE, (Reported) Entered as Reported by: ETHEL JONES on 11/14/20 1527 Duloxetine HCl (Cymbalta) 30 Mg Capsule.dr, 30 MG PO DAILY, (Reported) Entered as Reported by: BARRETT DANIELLE on 11/27/18 0949 Folic Acid (Folic Acid) 1 Mg Tablet, 1 MG PO DAILY, (Reported) Entered as Reported by: NAOMY ESTRADA on 05/28/19 1246 Hydrocodone/Acetaminophen (Hydrocodone-Acetamin 10-325 mg) 10 Mg-325 Mg Tablet, 1 EACH PO Q6H PRN for PAIN-BREAKTHROUGH Prescribed by: GUSTABO CARRINGTON on 07/02/22 0356 Hydroxychloroquine Sulfate (Hydroxychloroquine Sulfate) 200 Mg Tablet, 200 MG PO BID, (Reported) Entered as Reported by: NAOMY ESTRADA on 05/28/19 1252 Hyoscyamine Sulfate (Levsin-Sl) 0.125 Mg Tab.subl, 0.25 MG SL Q4H Prescribed by: RAPHAEL DUNCAN on 11/26/20 2107 Levetiracetam (Levetiracetam) 500 Mg Tablet, 500 MG PO BID Prescribed by: OLIVE ISAAC on 11/21/20 1010 Metoprolol Succinate (Metoprolol Succinate) 100 Mg Tab.er.24h, 100 MG PO DAILY, (Reported) Entered as Reported by: REMA LIZAMA on 09/03/19 1408 Metronidazole (Metronidazole) 500 Mg Tablet, 500 MG PO BID Prescribed by: GUSTABO CARRINGTON on 05/23/22 1517 Ondansetron (Ondansetron Odt) 4 Mg Tab.rapdis, 4 MG PO Q4H PRN for NAUSEA-1ST LINE Prescribed by: DASIA FRANKLIN on 11/25/20 1101 Ondansetron (Ondansetron Odt) 8 Mg Tab.rapdis, 8 MG PO Q6H Prescribed by: RAPHAEL DUNCAN on 11/26/202106 Ondansetron (Ondansetron Odt) 4 Mg Tab.rapdis, 4 MG PO Q4H PRN for NAUSEA/VOMITING-1ST LINE Prescribed by: TAYLOR FORRESTER on 05/15/22 1605 Ondansetron (Ondansetron Odt) 4 Mg Tab.rapdis, 4 MG SL Q8H PRN for NAUSE A/VOMITING Prescribed by: WENDY DAWN on 10/05/22 1214 Pantoprazole Sodium (Pantoprazole Sodium) 40 Mg Tablet.dr, 40 MG PO DAILY, (Reported) Entered as Reported by: BARRETT DANIELLE on 11/27/18 09 Pantoprazole Sodium (Protonix) 40 Mg Tablet.dr, 40 MG PO DAILY Prescribed by: RAPHAEL DUNCAN on 11/26/202106 Prednisone (Prednisone) 20 Mg Tab, 40 MG PO DAILY Prescribed by: JARED ODELL on 03/26/21 1523 Topiramate (Topiramate) 50 Mg Tablet, 75 MG PO BID, (Reported) Entered as Reported by: BARRETT DANIELLE on 11/27/18 0949 Review of Systems Review of Systems Constitutional: see HPI EENTM: No Symptoms Reported Respiratory: No Symptoms Reported Cardiovascular: Chest Pain (right anterior) Gastrointestinal: Abdominal Pain, Diarrhea, Nausea, Vomiting Genitourinary: No Symptoms Reported Musculoskeletal: back pain Skin: no symptoms reported Psychiatric/Neurological: Headache All Other Systems Reviewed Negative Unless Noted: Yes Past Rppvqjg-Wjqzql-Qtgzci Hx Patient Social History Tobacco Use?: No Substance use?: No Alcohol Use?: No Immunizations Up To Date Tetanus Booster (TDap): Unknown First/Initial COVID19 Vaccinat: 02/2021 Second COVID19 Vaccination Enrique: 02/2021 Third COVID19 Vaccination Date: 02/2021 COVID19 Vaccine Flagger: UNKNOWN Seasonal Allergies Seasonal Allergies: No Past Medical History Surgery/Hospitalization HX: RT SHOULDER, BREAST, HYSTERECTOMY, THRYOIDECTOMY, CARDIAC STENT, A FIB, PR, PANCREATITIS, STROKE, PNEUMONIA, COVID-19 11/10, DVT, HIGH CHOLESTEROL, HTN, LOOP RECORDER, LT SUB CLAVIAN PORT Surgeries: Yes (R CTR, espohageal ligation x2, Hernia, L RCR, L TKR, laparotomy, MRSA infec) Abdominal, Breast, Cardiac, Coronary Stent, Hysterectomy, Joint Replacement, Oop horectomy, Orthopedic, Thyroidectomy Respiratory: Yes (COVID-19 November 07, 2020-ADMITTED WITH PNEUMONIA) Pneumonia Currently Using CPAP: No Currently Using BIPAP: No Cardiac: Yes (HX HEART CATH-STENT;MILD BILAT CAROTID STENOSIS;DVT L ARM DUE TO PICC LINE) Coronary Artery Disease, Deep Vein Thrombosis, Heart Attack, High Cholesterol, Hypertension, Peripheral Vascular Neurological: Yes Headaches /Migraines, Neuropathy [employer] History: Hysterectomy, Menopausal Sexually Transmitted Disease: No HIV/AIDS: No Genitourinary: Yes (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,STAGE 2-KIDNEY DISEASE;DIABETIC NEPHROPA ) Bladder Infection, Renal Failure, Dialysis Gastrointestinal: Yes (HX GI BLEED, zenkers syndrome-chokes easily, hx hep A;LIVER INJURY/TRAUMA) Abdominal Hernia, Gastroesophageal Reflux, Gastrointestinal Bleed, Esophageal Varices, Hepatitis Musculoskeletal: Yes (OSTEOARTHRITIS, BULGING DISCS) Arthritis, Chronic Back Pain Endocrine: Yes (partial thyroidectomy) Hypothyroidsim HEENT: Yes (GLASSES, UPPER DENTURES) Glaucoma Loss of Vision: Bilateral Cancer: Yes Breast Did You Recieve Any Treatments: Yes What Type of Treatment Did You: Radiation, Surgical Intervention Psychosocial: No Integumentary: No Blood Disorders: Yes (IRON DEFFICIENCY ANEMIA-GETS IRON INFUSIONS) Adverse Reaction/Blood Tranf: No (HAS HAD BLOOD WITH NO REACTION) Family Medical History Hypertension G8 BROTHER Not obtainable due to adoption 19 FATHER Heart Disease, Hypertension ADDITIONAL PAST SURGICAL HISTORY -ZENKER'S DIVERTICULUM SURGERY X 2 -ABDOMINAL HERNIA REPAIR WITH MESH -MESH REMOVAL AND LYSIS OF ADHESIONS -HYST/BSO -LOOP RECORDER -PORT LEFT CHEST -LEFT BREAST LUMPECTOMY -CARDIAC CATH WITH STENT X 1 TO RCA 2010 -PORT LEFT CHEST -RIGHT SHOULDER REPLACEMENT -RENAL ARTERY STENOSIS WITH STENT 2013 Physical Exam Vital Signs Vital Signs - First Documented 10/05/22 07:30 Temp 36.5 Pulse 135 Resp 96 B/P (MAP) 222/102 (142) Pulse Ox 95 O2 Delivery Room Air Capillary Refill : Less Than 3 Seconds Height/Weight/BMI Height: 5'4.00" Weight: 216lbs. 4.2oz. 98.950371pl; 27.00 BMI Method:Stated General Appearance: WD/WN, no apparent distress HEENT: other (very dry oral mucosa) Neck: full range of motion, supple Respiratory: lungs clear, normal breath sounds, no respiratory distress, no accessory muscle use Cardiovascular: regular rate, rhythm, tachycardia (130) Gastrointestinal: soft, tenderness (diffuse mild tenderness; non focal; + BS; nondistended) Extremities: normal range of motion, non-tender, normal inspection, no pedal edema Neurologic/Psychiatric: no motor/sensory deficits, alert Skin: normal color, warm/dry Progress/Results/Core Measures Results/Orders Lab Results Laboratory Tests Test 10/05/22 07:37 10/05/22 07:43 Range/Units Influenza Type A (RT-PCR) Not Detected Not Detecte Influenza Type B (RT-PCR) Not Detected Not Detecte SARS-CoV-2 RNA (RT-PCR) Not Detected Not Detecte White Blood Count 9.0 4.3-11.0 10^3/uL Red Blood Count 4.76 3.80-5.11 10^6/uL Hemoglobin 14.1 11.5-16.0 g/dL Hematocrit 43 35-52 % Mean Corpuscular Volume 89 80-99 fL Mean Corpuscular Hemoglobin 30 25-34 pg Mean Corpuscular Hemoglobin Concent 33 32-36 g/dL Red Cell Distribution Width 13.0 10.0-14.5 % Platelet Count 208 130-400 10^3/uL Mean Platelet Volume 10.3 9.0-12.2 fL Immature Granulocyte % (Auto) 0 % Neutrophils (%) (Auto) 93 H 42-75 % Lymphocytes (%) (Auto) 3 L 12-44 % Monocytes (%) (Auto) 3 0-12 % Eosinophils (%) (Auto) 1 0-10 % Basophils (%) (Auto) 0 0-10 % Neutrophils # (Auto) 8.3 H 1.8-7.8 10^3/uL Lymphocytes # (Auto) 0.3 L 1.0-4.0 10^3/uL Monocytes # (Auto) 0.2 0.0-1.0 10^3/uL Eosinophils # (Auto) 0.1 0.0-0.3 10^3/uL Basophils # (Auto) 0.0 0.0-0.1 10^3/uL Immature Granulocyte # (Auto) 0.0 0.0-0.1 10^3/uL Neutrophils % (Manual) 93 % Lymphocytes % (Manual) 5 % Monocytes % (Manual) 0 % Eosinophils % (Manual) 1 % Basophils % (Manual) 1 % Band Neutrophils 0 % Blood Morphology Comment NORMAL Sodium Level 143 135-145 MMOL/L Potassium Level 3.5 L 3.6-5.0 MMOL/L Chloride Level 112 H 98-107 MMOL/L Carbon Dioxide Level 19 L 21-32 MMOL/L Anion Gap 12 5-14 MMOL/L Blood Urea Nitrogen 23 H 7-18 MG/DL Creatinine 1.29 0.60-1.30 MG/DL Estimat Glomerular Filtration Rate 44 BUN/Creatinine Ratio 18 Glucose Level 227 H 70-105 MG/DL Calcium Level 8.6 8.5-10.1 MG/DL Corrected Calcium 8.5 8.5-10.1 MG/DL Total Bilirubin 0.4 0.1-1.0 MG/DL Aspartate Amino Transf (AST/SGOT) 25 5-34 U/L Alanine Aminotransferase (ALT/SGPT) 22 0-55 U/L Alkaline Phosphatase 122 40-136 U/L Total Protein 7.5 6.4-8.2 GM/DL Albumin 4.1 3.2-4.5 GM/DL Lipase 65 8-78 U/L My Orders Orders - WENDY DAWN MD Ed Iv/Invasive Line Start (10/05/22 08:23) Cbc With Automated Diff (10/05/22 08:23) Comprehensive Metabolic Panel (10/05/22 08:23) Lipase (10/05/22 08:23) Ns Iv 1000 Ml (Sodium Chloride 0.9%) (10/05/22 08:23) Ondansetron Injection (Zofran Injectio (10/05/22 08:30) Manual Differential (10/05/22 07:43) Butalbital/Apap/Caffeine Tab (Fioricet T (10/05/22 09:39) Amlodipine Tablet (Norvasc Tablet) (10/06/22 09:00) Clonidine Tablet (Catapres Tablet) (10/05/22 10:00) Amlodipine Tablet (Norvasc Tablet) (10/05/22 10:05) Covid 19 Inhouse Test (10/05/22 10:40) Influenza A And B By Pcr (10/05/22 10:40) Isolation Central Supply Req (10/05/22 10:40) Ns Iv 1000 Ml (Sodium Chloride 0.9%) (10/05/22 12:00) Loperamide Tablet (Imodium Tablet) (10/05/22 11:49) Fentanyl Inj (Sublimaze Injection) (10/05/22 12:00) Medications Given in ED Vital Signs/I&O 10/05/22 10/05/22 07:30 13:24 Temp 36.5 Pulse 135 99 Resp 96 16 B/P (MAP) 222/102 (142) 164/78 Pulse Ox 95 95 O2 Delivery Room Air Room Air Blood Pressure Mean: 142 Progress Progress Note : Time: 12:10 Progress Note Patient seen and evaluated, 72-year-old with a chief complaint nausea, vomiting, diarrhea and headache. Evaluation today includes physical exam, basic laboratory studies including flu and COVID testing. She is found to be quite hypertensive with systolic blood pressures greater than 210. She has not been able to hold down her medications in about 24 hours. Patient was not doing any dry heaving or vomiting in the ED. She states she had taken Zofran in the middle of the night. She denies black or bloody stool. CBC is reassuring, chemistry is reassuring. She has a history of pancreatitis no increase in her lipase. Flu and COVID test are negative. Abdominal exam is benign. Consideration for CT abdomen and pelvis however history and physical exam do not support the need. No urinary complaints therefore urinalysis was not performed. 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 Her blood pressure has come down nicely after giving her her home blood pressure medications. She has shown gradual improvement in the ED. Recommend follow-up with her primary care doctor early next week. Return precautions provided. Departure Impression Primary Impression: Hypertensive urgency Additional Impressions: Headache Qualified Codes: R51.9 - Headache, unspecified Gastroenteritis Disposition: HOME, SELF-CARE Condition: Improved Departure-Patient Inst. Decision time for Depature: 12:12 [address]: [facility] [place] Primary Care Physician Patient Instructions: Dehydration, Adult ED Add. Discharge Instructions: Follow a clear liquid diet for the rest of the afternoon. You can slowly advance your diet as tolerated. Continue your Zofran at home as needed for nausea. Every 6-8 hours. Please continue to take your blood pressure medications and other daily prescribed meds as directed. If you have any worsening symptoms of abdominal pain, shortness of breath or vomiting please return to the emergency room for reevaluation. Follow-up with your primary care doctor early next week Scripts Ondansetron (Ondansetron Odt) 4 Mg Tab.rapdis 4 MG SL Q8H PRN for NAUSEA/VOMITING, #15 TAB Prov: WENDY DAWN MD 10/05/22 Copy Copies To 1: JOSIANE KITCHEN KATHRYN M MD Oct 05, 2022 08:16
[2022-10-05] MEDS ORDERED: NS IV 1000 ML 1,000 ML IV STA (08:23)
[2022-10-05] MEDS ORDERED: ONDANSETRON 4 MG/2 ML (SDV) Z0FRAN IVP ONE (08:30)
[2022-10-05 08:31] LABS: BASOPHILS % (AUTO) 0 % (0-10); EOSINOPHILS # (AUTO) 0.1 10^3/uL (0.0-0.3); EOSINOPHILS % (AUTO) 1 % (0-10); HEMATOCRIT 43 % (35-52); HEMOGLOBIN 14.1 g/dL (11.5-16.0); LYMPHOCYTES # (AUTO) 0.3 10^3/uL (1.0-4.0); LYMPHOCYTES % (AUTO) 3 % (12-44); MEAN CORPUSCULAR HEMOGLOBIN 30 pg (25-34); MEAN CORPUSCULAR HGB CONC 33 g/dL (32-36); MEAN CORPUSCULAR VOLUME 89 fL (80-99); MEAN PLATELET VOLUME 10.3 fL (9.0-12.2); MONOCYTES # (AUTO) 0.2 10^3/uL (0.0-1.0); MONOCYTES % (AUTO) 3 % (0-12); NEUTROPHILS # (AUTO) 8.3 10^3/uL (1.8-7.8); NEUTROPHILS % (AUTO) 93 % (42-75); PLATELET COUNT 208 10^3/uL (130-400)
[2022-10-05 08:46] LABS: ALBUMIN 4.1 GM/DL (3.2-4.5); BILIRUBIN,TOTAL 0.4 MG/DL (0.1-1.0); CALCIUM 8.6 MG/DL (8.5-10.1); CREATININE SERUM 1.29 MG/DL (0.60-1.30); POTASSIUM 3.5 MMOL/L (3.6-5.0); TOTAL PROTEIN 7.5 GM/DL (6.4-8.2)
[2022-10-05 09:25] LABS: BAND NEUTROPHILS 0 %; LYMPHOCYTES % (MANUAL) 5 %; NEUTROPHILS % (MANUAL) 93 %
[2022-10-05 09:26] LABS: BASOPHILS % (MANUAL) 1 %; EOSINOPHILS % (MANUAL) 1 %; MONOCYTES % (MANUAL) 0 %; RBC MORPH NORMAL
[2022-10-05] MEDS ORDERED: ACET/BUTAL/CAFF (FIORICET) TAB PO STA (09:39)
[2022-10-05] MEDS ORDERED: cloNIDine 0.1 MG (CATAPRES) TAB PO ONE (10:00)
[2022-10-05] MEDS ORDERED: amLODIPine 5 MG (NORVASC) TAB ONE (10:05)
[2022-10-05] MEDS ORDERED: LOPERAMIDE 2 MG (IMODIUM) TABLET PO STA (11:49)
[2022-10-05] MEDS ORDERED: NS IV 1000 ML 1,000 ML IV SCH (12:00)
[2022-10-05] MEDS ORDERED: fentaNYL INJ 100 MCG/2 ML AMP IVP ONE (12:00)
[2022-10-05] MEDS ORDERED: ONDA4TAB11 SL (12:14)
[2022-10-05 13:24] VITALS: BP 164/78
[2022-10-06] MEDS ORDERED: amLODIPine 5 MG (NORVASC) TAB PO SCH (09:00)
== END 2022-10-05 13:24 | disposition home or self-care (01) ==
LOC: EDUNIT# 07:28 → ER 07:30
DX: I16.0 Hypertensive urgency (principal); K52.9 Noninfective gastroenteritis and colitis, unspecified; I10 Essential (primary) hypertension; Z86.16 Personal history of COVID-19; Z20.822 Contact with and (suspected) exposure to COVID-19
CPT/HCPCS: 36415; 80053; 83690; 85007; 85027; 87636; 99283

== ENCOUNTER → 2022-11-20 | Outpatient (CLI) | payer MEDICARE, OTHER ==
[~2022-11-20] MED LIST changes: +ONDA4TAB11 SL
--- NOTE | 2022-11-20 09:46 | Diagnostic Imaging Report ---
CLINICAL INDICATION: Patient had recent fall and recent x-rays. Patient has cervical spine pain. EXAM: MRI of the cervical spine performed without IV contrast. Sequences include sagittal T2, sagittal T1, sagittal T2 fat-sat, and axial T2. COMPARISON: CT scan of the head and cervical spine without contrast dated 07/02/2022. FINDINGS: There is no acute cervical spine fracture or dislocation. Limited visualization of posterior fossa is unremarkable. There is patient body habitus and CSF flow artifact which limits evaluation of anatomical detail of the cervical cord. There is no gross cervical cord abnormality, as visualized. There is no significant paraspinal soft tissue mildly. There are small degenerative spurs involving the cervical spine. C1-C2: There are degenerative spurs involving the atlantoodontoid interval anteriorly. There is no significant central canal narrowing. C2-C3: There is mild bilateral facet arthropathy. There is no significant central canal or neural foramen narrowing. There is mild bilateral facet arthropathy and small right uncinate spur. There is moderate right neural foramen narrowing. There is no significant left neural foramen narrowing. There is ligament flavum buckling and small posterior disk bulge which contributes to mild central canal narrowing. C4-C5: There is a small posterior disk herniation. There is moderate bilateral facet arthropathy. Ligamentum flavum buckling. There is moderate central canal stenosis and moderate left neural foramen narrowing and severe right neural foramen narrowing. C5-C6: There is a subtle posterior disk bulge and ligamentum flavum buckling. There is moderate right facet arthropathy/hypertrophy and mild left facet arthropathy. There is mild central canal narrowing. There is at least mild to moderate right neural foramen narrowing and mild left neural foramen. C6-C7: There is a mild diffuse disk bulge and ligament of flavum buckling. There is mild central canal narrowing. There is moderate bilateral facet arthropathy. There is mild central canal narrowing. There is severe left neural foramen narrowing and moderate left neural foramen narrowing. C7-T1: There is no significant central spinal canal or neural foramen narrowing. IMPRESSION: 1: There is no acute cervical spine fracture. 2: There is multilevel cervical spine degenerative disk disease which is described in detail above. Dictated by: Dictated on workstation # [id number]
== END ==
LOC: RAD 08:11
PROVIDERS: ATTEND Pediatrics
DX: M47.812 Spondylosis without myelopathy or radiculopathy, cervical region (principal); M48.02 Spinal stenosis, cervical region; M50.31 Other cervical disc degeneration, high cervical region; M50.321 Other cervical disc degeneration at C4-C5 level; M50.322 Other cervical disc degeneration at C5-C6 level; M50.323 Other cervical disc degeneration at C6-C7 level
CPT/HCPCS: 72141

== ENCOUNTER → 2022-12-05 | Outpatient (CLI) | payer MEDICARE ==
[~2022-12-05] VITALS: Ht 157 cm; Wt 68.0 kg
[~2022-12-05] MED LIST changes: +HEParin (CENTRAL IV FLUSH) 500 UNIT/5 ML SYR IV PRN; +HEParin (CENTRAL IV FLUSH) 500 UNIT/5 ML SYR ONE
[2022-12-05 14:18] VITALS: BP 149/78
== END ==
LOC: SDC 13:54
PROVIDERS: ATTEND Physician Assistant
DX: Z95.828 Presence of other vascular implants and grafts (principal)
CPT/HCPCS: 96523

== ENCOUNTER 2022-12-12 14:39 | Outpatient (RCR) | payer MEDICARE ==
[~2022-12-12 14:39] MED LIST changes: -HEParin (CENTRAL IV FLUSH) 500 UNIT/5 ML SYR IV PRN; -HEParin (CENTRAL IV FLUSH) 500 UNIT/5 ML SYR ONE
== END 2022-12-18 | disposition home or self-care (01) ==
PROVIDERS: ATTEND Nurse Practitioner Gerontology
DX: M47.812 Spondylosis without myelopathy or radiculopathy, cervical region (principal); I11.9 Hypertensive heart disease without heart failure

== ENCOUNTER → 2023-01-03 | Outpatient (CLI) | payer MEDICARE ==
[~2023-01-03] MED LIST changes: +HEParin (CENTRAL IV FLUSH) 500 UNIT/5 ML SYR IV PRN; +HEParin (CENTRAL IV FLUSH) 500 UNIT/5 ML SYR ONE
[2023-01-03 13:40] VITALS: BP 199/93
== END ==
LOC: SDC 13:14
PROVIDERS: ATTEND Physician Assistant
DX: Z95.828 Presence of other vascular implants and grafts (principal)
CPT/HCPCS: 96523

== ENCOUNTER → 2023-01-09 | Outpatient (CLI) | payer MEDICARE ==
[~2023-01-09] MED LIST changes: -HEParin (CENTRAL IV FLUSH) 500 UNIT/5 ML SYR IV PRN; -HEParin (CENTRAL IV FLUSH) 500 UNIT/5 ML SYR ONE
--- NOTE | 2023-01-10 09:27 | Diagnostic Imaging Report ---
INDICATION: Routine screening. COMPARISON is made with prior mammograms 12/29/2021 and 12/28/2020. 2-D and 3-D bilateral screening mammography was performed with CAD. Post-therapeutic changes left breast are again noted. Extensive vascular calcifications and benign calcifications throughout both breasts are again noted. No mass or malignant-appearing microcalcifications are seen. Axillae are unremarkable. IMPRESSION: BI-RADS Category 2 No mammographic features suspicious for malignancy are identified. ACR BI-RADS Category 2: Benign findings. Result letter will be mailed to the patient. Note: At least 10% of breast cancer is not imaged by mammography. Dictated by: Dictated on workstation # [id number]
== END ==
LOC: RAD 15:13
PROVIDERS: ATTEND Pediatrics
DX: Z12.31 Encounter for screening mammogram for malignant neoplasm of breast (principal)
CPT/HCPCS: 77063; 77067

== ENCOUNTER 2023-01-17 12:49 | Outpatient (RCR) | payer MEDICARE ==
[~2023-01-17 12:49] MED LIST changes: -INSU100I29 SQ; +INSU100I30 SQ; +TOPI-241 PO; -TOPI50TA13 PO
== END 2023-01-17 13:50 | disposition home or self-care (01) ==
PROVIDERS: ATTEND Nurse Practitioner Gerontology
DX: M47.812 Spondylosis without myelopathy or radiculopathy, cervical region (principal); I11.9 Hypertensive heart disease without heart failure

== ENCOUNTER 2023-01-25 11:57 | Emergency (ER) | payer MEDICARE ==
[~2023-01-25] VITALS: Ht 162 cm; Wt 72.0 kg
--- NOTE | 2023-01-25 12:26 | ED General ---
General Chief Complaint: Back Problems Stated Complaint: LT LEG SWOLLEN | BACK PAIN Nursing Triage Note: PT REPORTS WITH C/O LOW BACK PAIN FOR ONE MONTH AND LEFT LEG PAIN THAT JUST STARTED. DENIES KNOWN INJURY. PT AMB. TO ROOM 04. Source of Information: Patient Exam Limitations: No Limitations History of Present Illness Date Seen by Provider: Jan 25, 2023 Time Seen by Provider: 12:06 Initial Comments 72-year-old female presents the ED with complaints of lower back pain that radiates into her groin, left knee pain and left leg swelling for the last month. She states the pain started in her upper back initially, she received steroid injections which improved the pain. She reports that 2 weeks ago she called her primary who gave her lidocaine patches, states they have not been helping. She also takes hydrocodone 7.5 for chronic pain, states this is not helping. She reports she has numbness and tingling in her whole left leg. She states the right leg has started to swell as well. Denies numbness or tingling in the right leg. Denies bowel or bladder incontinence. She is able to walk. She denies fevers, shortness of air. She denies active cancer, or current chemotherapy, denies previous DVT, denies being bedridden, denies recent long trip. She does not smoke or drink alcohol. She states that her blood pressure has also been high, complains of headache, dizziness, and blurred vision. She reports she has been having intermittent chest pain for the last month, states last episode was 2 days ago. She states chest pain happens randomly, is uncertain if it is related to exertion or rest. States the pain is in the left side, and lasts about a minute at a time. Patient's chest is tender to palpation. Allergies and Home Medications Allergies Coded Allergies: clopidogrel (Verified Allergy, Severe, BLOOD CLOTS, 11/27/18) Penicillins (Verified Allergy, Mild, RASH, 11/27/18) carisoprodol (Verified Allergy, Mild, RASH, 11/27/18) cephalexin (Verified Allergy, Mild, RASH, 11/27/18) ketorolac (Verified Allergy, Mild, RASH, 11/27/18) prochlorperazine (Verified Allergy, Mild, RASH, 11/27/18) Carbamates (Verified Allergy, Unknown, Rash, 05/28/19) Patient Home Medication List Home Medication List Reviewed: Yes Albuterol Sulfate (Albuterol Sulfate) 2.5 Mg/3 Ml Vial.neb, 2 PUFF INH Q4H PRN for SHORTNESS OF BREATH Prescribed by: DASIA FRANKLIN on 11/25/20 1101 Amlodipine Besylate (Amlodipine Besylate) 10 Mg Tablet, 10 MG PO DAILY, (Reported) Entered as Reported by: ETHEL JONES on 11/14/20 1527 Aspirin (Aspirin EC) 81 Mg Tablet., 81 MG PO DAILY Prescribed by: OLIVE ISAAC on 11/21/20 1010 Atorvastatin Calcium (Atorvastatin Calcium) 40 Mg Tablet, 40 MG PO HS, (Reported) Entered as Reported by: REMA LIZAMA on 09/03/19 1408 Cholecalciferol (Vitamin D3) (Vitamin D3) 50 Mcg Tablet, 50 MCG PO DAILY, (Reported) Entered as Reported by: ETHEL JONES on 11/14/20 1527 Ciprofloxacin HCl (Ciprofloxacin HCl) 500 Mg Tablet, 500 MG PO BID Prescribed by: TAYLOR FORRESTER on 02/22/22 1506 Codeine/Butalbital/ASA/Caffein (RGP-Obaamm-Ctpm-Cod #3 Capsule) 1 Each Capsule, 1 EACH PO DAILY PRN for MIGRAINE, (Reported) Entered as Reported by: ETHEL JONES on 11/14/20 1527 Cyclobenzaprine HCl (Cyclobenzaprine HCl) 10 Mg Tablet, 10 MG PO TID Prescribed by: Aleja Perry on 01/25/23 1413 Duloxetine HCl (Cymbalta) 30 Mg Capsule., 30 MG PO DAILY, (Reported) Entered as Reported by: BARRETT DANIELLE on 11/27/18 0949 Folic Acid (Folic Acid) 1 Mg Tablet, 1 MG PO DAILY, (Reported) Entered as Reported by: NAOMY ESTRADA on 05/28/19 1246 Hydrocodone/Acetaminophen (Hydrocodone-Acetamin 10-325 mg) 10 Mg-325 Mg Tablet, 1 EACH PO Q6H PRN for PAIN-BREAKTHROUGH Prescribed by: GUSTABO CARRINGTON on 07/02/22 0356 Hydroxychloroquine Sulfate (Hydroxychloroquine Sulfate) 200 Mg Tablet, 200 MG PO BID, (Reported) Entered as Reported by: NAOMY ESTRADA on 05/28/19 1252 Hyoscyamine Sulfate (Levsin-Sl) 0.125 Mg Tab.subl, 0.25 MG SL Q4H Prescribed by: RAPHAEL DUNCAN on 11/26/202106 Levetiracetam (Levetiracetam) 500 Mg Tablet, 500 MG PO BID Prescribed by: OLIVE ISAAC on 11/21/20 1010 Methylprednisolone (Methylprednisolone Dose Pack) 4 Mg Tab.ds.pk, 4 MG PO UD Prescribed by: Aleja Perry on 01/25/23 1413 Metoprolol Succinate (Metoprolol Succinate) 100 Mg Tab.er.24h, 100 MG PO DAILY, (Reported) Entered as Reported by: REMA LIZAMA on 09/03/19 1408 Metronidazole (Metronidazole) 500 Mg Tablet, 500 MG PO BID Prescribed by: GUSTABO CARRINGTON on 05/23/22 1517 Ondansetron (Ondansetron Odt) 4 Mg Tab.rapdis, 4 MG PO Q4H PRN for NAUSEA-1ST LINE Prescribed by: DASIA FRANKLIN on 11/25/20 1101 Ondansetron (Ondansetron Odt) 8 Mg Tab.rapdis, 8 MG PO Q6H Prescribed by: RAPHAEL DUNCAN on 11/26/202106 Ondansetron (Ondansetron Odt) 4 Mg Tab.rapdis, 4 MG PO Q4H PRN for NAUSEA/VOMITING-1ST LINE Prescribed by: TAYLOR FORRESTER on 05/15/22 1605 Ondansetron (Ondansetron Odt) 4 Mg Tab.rapdis, 4 MG SL Q8H PRN for NAUSEA/VOMITING Prescribed by: WENDY DAWN on 10/05/22 1214 Pantoprazole Sodium (Pantoprazole Sodium) 40 Mg Tablet.dr, 40 MG PO DAILY, (Reported) Entered as Reported by: BARRETT DANIELLE on 11/27/18 0949 Pantoprazole Sodium (Protonix) 40 Mg Tablet.dr, 40 MG PO DAILY Prescribed by: RAPHAEL DUNCAN on 11/26/202106 Prednisone (Prednisone) 20 Mg Tab, 40 MG PO DAILY Prescribed by: JARED ODELL on 03/26/21 1523 Topiramate (Topiramate) 50 Mg Tablet, 75 MG PO BID, (Reported) Entered as Reported by: BARRETT DANIELLE on 11/27/18 0949 Review of Systems Review of Systems Constitutional: see HPI Past Souepxq-Qpavke-Bynsuj Hx Patient Social History Tobacco Use?: No Substance use?: No Alcohol Use?: No Pt feels they are or have been: No Immunizations Up To Date Tetanus Booster (TDap): Unknown First/Initial COVID19 Vaccinat: UNKNOWN Second COVID19 Vaccination Enrique: UNKNOWN Third COVID19 Vaccination Date: UNKNOWN Seasonal Allergies Seasonal Allergies: No Past Medical History Surgery/Hospitalization HX: RT SHOULDER, BREAST, HYSTERECTOMY, THRYOIDECTOMY, CARDIAC STENT, A FIB, TN, PANCREATITIS, STROKE, PNEUMONIA, COVID-19 11/10, DVT, HIGH CHOLESTEROL, HTN, LOOP RECORDER, LT SUB CLAVIAN PORT Surgeries: Yes (R CTR, espohageal ligation x2, Hernia, L RCR, L TKR, laparotomy, MRSA infec) Abdominal, Breast, Cardiac, Coronary Stent, Hysterectomy, Joint Replacement, Oophorectomy, Orthopedic, Thyroidectomy Respiratory: Yes (COVID-19 November 07, 2020-ADMITTED WITH PNEUMONIA) Pneumonia Currently Using CPAP: No Currently Using BIPAP: No Cardiac: Yes (HX HEART CATH-STENT;MILD BILAT CAROTID STENOSIS;DVT L ARM DUE TO PICC LINE) Coronary Artery Disease, Deep Vein Thrombosis, Heart Attack, High Cholesterol, Hypertension, Peripheral Vascular Neurological: Yes Headaches /Migraines, Neuropathy OUTPATIENT THERAPIST History: Hysterectomy, Menopausal Sexually Transmitted Disease: No HIV/AIDS: No Genitourinary: Yes (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,STAGE 2-KIDNEY DISEASE;DIABETIC NEPHROPA ) Bladder Infection, Renal Failure, Dialysis Gastrointestinal: Yes (HX GI BLEED, zenkers syndrome-chokes easily, hx hep A;LIVER INJURY/TRAUMA) Abdominal Hernia, Gastroesophageal Reflux, Gastrointestinal Bleed, Esophageal Varices, Hepatitis Musculoskeletal: Yes (OSTEOARTHRITIS, BULGING DISCS) Arthritis, Chronic Back Pain Endocrine: Yes (partial thyroidectomy) Hypothyroidsim HEENT: Yes (GLASSES, UPPER DENTURES) Glaucoma Loss of Vision: Bilateral Cancer: Yes Breast Did You Recieve Any Treatments: Yes What Type of Treatment Did You: Radiation, Surgical Intervention Psychosocial: No Integumentary: No Blood Disorders: Yes (IRON DEFFICIENCY ANEMIA-GETS IRON INFUSIONS) Adverse Reaction/Blood Tranf: No (HAS HAD BLOOD WITH NO REACTION) Family Medical History Hypertension G8 BROTHER Not obtainable due to adoption 19 FATHER Heart Disease, Hypertension ADDITIONAL PAST SURGICAL HISTORY -ZENKER'S DIVERTICULUM SURGERY X 2 -ABDOMINAL HERNIA REPAIR WITH MESH -MESH REMOVAL AND LYSIS OF ADHESIONS -HYST/BSO -LOOP RECORDER -PORT LEFT CHEST -LEFT BREAST LUMPECTOMY -CARDIAC CATH WITH STENT X 1 TO RCA 2010 -PORT LEFT CHEST -RIGHT SHOULDER REPLACEMENT -RENAL ARTERY STENOSIS WITH STENT 2013 Physical Exam Vital Signs Vital Signs - First Documented 01/25/23 01/25/23 12:02 15:00 Temp 36.5 Pulse 82 Resp 16 B/P (MAP) 192/88 (122) Pulse Ox 97 O2 Delivery Room Air Capillary Refill : Less Than 3 Seconds Height, Weight, BMI Height: 5'4.00" Weight: 216lbs. 4.2oz. 98.060001ze; 27.00 BMI Method:Stated General Appearance: No Apparent Distress, WD/WN Neck: Normal Inspection, Supple Respiratory: Lungs Clear, Normal Breath Sounds, No Accessory Muscle Use, No Respiratory Distress, Other (Left chest tender to palpation) Cardiovascular: Regular Rate, Rhythm, No Edema, No Gallop, No JVD, No Murmur, Normal Peripheral Pulses Back: Vertebral Tenderness, Other (Muscle tenderness left lower back, kyphosis) Extremity: Normal Capillary Refill, Normal Inspection, Normal Range of Motion, Non Tender, No Calf Tenderness, No Pedal Edema Neurologic/Psychiatric: Alert, Normal Mood/Affect Skin: Normal Color, Warm/Dry Progress/Results/Core Measures Suspected Sepsis SIRS Temperature: Pulse: 82 Respiratory Rate: 16 Laboratory Tests 01/25/23 13:20: White Blood Count 6.4 Blood Pressure 192 /88 Mean: 122 Laboratory Tests 01/25/23 13:20: Creatinine 1.26, Platelet Count 188, Total Bilirubin 0.2 Results/Orders Lab Results Laboratory Tests Test 01/25/23 12:24 01/25/23 13:20 Range/Units Urine Color YELLOW Urine Clarity CLEAR Urine pH 5.5 5-9 Urine Specific [place] >=1.030 1.016-1.022 Urine Protein 2+ H NEGATIVE Urine Glucose (UA) NEGATIVE NEGATIVE Urine Ketones NEGATIVE NEGATIVE Urine Nitrite NEGATIVE NEGATIVE Urine Bilirubin NEGATIVE NEGATIVE Urine Urobilinogen 0.2 < = 1.0 MG/DL Urine Leukocyte Esterase TRACE H NEGATIVE Urine RBC (Auto) NEGATIVE NEGATIVE Urine RBC NONE /HPF Urine WBC RARE /HPF Urine Squamous Epithelial Cells RARE /HPF Urine Crystals NONE /LPF Urine Bacteria NEGATIVE /HPF Urine Casts PRESENT /LPF Urine Hyaline Casts RARE /LPF Urine Mucus NEGATIVE /LPF Urine Culture Indicated NO White Blood Count 6.4 4.3-11.0 10^3/uL Red Blood Count 3.83 3.80-5.11 10^6/uL Hemoglobin 11.3 L 11.5-16.0 g/dL Hematocrit 34 L 35-52 % Mean Corpuscular Volume 90 80-99 fL Mean Corpuscular Hemoglobin 30 25-34 pg Mean Corpuscular Hemoglobin Concent 33 32-36 g/dL Red Cell Distribution Width 13.2 10.0-14.5 % Platelet Count 188 130-400 10^3/uL Mean Platelet Volume 9.8 9.0-12.2 fL Immature Granulocyte % (Auto) 0 % Neutrophils (%) (Auto) 67 42-75 % Lymphocytes (%) (Auto) 18 12-44 % Monocytes (%) (Auto) 12 0-12 % Eosinophils (%) (Auto) 2 0-10 % Basophils (%) (Auto) 1 0-10 % Neutrophils # (Auto) 4.3 1.8-7.8 10^3/uL Lymphocytes # (Auto) 1.2 1.0-4.0 10^3/uL Monocytes # (Auto) 0.8 0.0-1.0 10^3/uL Eosinophils # (Auto) 0.1 0.0-0.3 10^3/uL Basophils # (Auto) 0.1 0.0-0.1 10^3/uL Immature Granulocyte # (Auto) 0.0 0.0-0.1 10^3/uL Sodium Level 141 135-145 MMOL/L Potassium Level 3.8 3.6-5.0 MMOL/L Chloride Level 112 H 98-107 MMOL/L Carbon Dioxide Level 22 21-32 MMOL/L Anion Gap 7 5-14 MMOL/L Blood Urea Nitrogen 28 H 7-18 MG/DL Creatinine 1.26 0.60-1.30 MG/DL Estimat Glomerular Filtration Rate 45 BUN/Creatinine Ratio 22 Glucose Level 134 H 70-105 MG/DL Calcium Level 8.3 L 8.5-10.1 MG/DL Corrected Calcium 8.8 8.5-10.1 MG/DL Magnesium Level 1.9 1.6-2.4 MG/DL Total Bilirubin 0.2 0.1-1.0 MG/DL Aspartate Amino Transf (AST/SGOT) 11 5-34 U/L Alanine Aminotransferase (ALT/SGPT) 13 0-55 U/L Alkaline Phosphatase 74 40-136 U/L Troponin I < 0.028 <0.028 NG/ML Total Protein 5.9 L 6.4-8.2 GM/DL Albumin 3.4 3.2-4.5 GM/DL My Orders Orders - ALEJA PERRY APRN Us Venous Lower Ext [place] (01/25/23 12:19) Cbc With Automated Diff (01/25/23 12:19) Magnesium (01/25/23 12:19) Comprehensive Metabolic Panel (01/25/23 12:19) Ua Culture If Indicated (01/25/23 12:19) Ekg Tracing (01/25/23 12:26) Troponin I [place] (01/25/23 12:30) Orphenadrine Inj (Ed Only) (Norflex Inje (01/25/23 13:30) Dexamethasone Injection (Decadron Inje (01/25/23 13:30) Fentanyl Inj (Sublimaze Injection) (01/25/23 14:15) Heparin (Central Iv Flush) (Heparin (Pearl (01/25/23 14:30) Medications Given in ED Vital Signs/I&O 01/25/23 01/25/23 12:02 15:00 Temp 36.5 36.5 Pulse 82 74 Resp 16 16 B/P (MAP) 192/88 (122) 200/79 Pulse Ox 97 O2 Delivery Room Air Room Air Capillary Refill : Less Than 3 Seconds Blood Pressure Mean: 122 Progress Note : Time: 12:26 Progress Note Patient seen evaluated, resting comfortably, no acute distress. Work-up initiated including CBC, CMP, magnesium, troponin, ultrasound bilateral lower extremities. 1400 Labs and ultrasound reviewed. CBC shows decreased hemoglobin 11.3, decreased hematocrit 34. CMP shows elevated chloride 112, elevated BUN 28, creatinine 1.26, GFR 45. Kidney function similar to previous. Glucose 134. Troponin negative. Magnesium normal 1.9. UA negative for RBCs, trace leuks, 2+ protein. Venous ultrasound positive for DVT of left leg. She is already on Eliquis 5 mg BID. Results discussed with patient. Will discharge with Medrol Dosepak and Flexeril for sciatica. Instructed to follow-up with vascular surgery at [facility]. Discharge instructions return precautions provided. 1458 patient's blood pressure had improved without intervention, now it is elevated again. Patient denies any headache, dizziness, blurred vision at this time. We will continue with discharge. Patient instructed to follow-up with primary care provider regarding elevated blood pressure. ECG Initial ECG Impression Date: Jan 25, 2023 Initial ECG Impression Time: 12:34 Initial ECG Rate: 74 Initial ECG Rhythm: Normal Sinus Initial ECG Intervals: Normal Initial ECG Impression: Normal Initial ECG Comparisson: Unchanged Diagnostic Imaging Diagonstic Imaging: Ultrasound Plain Films/CT/US/NM/MRI: leg Comments [facility] [place] NAME: KEO AGUIRRE [facility] REC#: [id number] PT STATUS: DEP ER : [id number] PHYSICIAN: ALEJA PERRY APRN ADMIT DATE: 01/25/23/ER Signed Date of Exam:01/25/23 US VENOUS LOWER EXT FOREST PROCEDURE: US Venous Lower Ext Forest. INDICATION: Leg swelling, pain TECHNIQUE: Multiple real-time grayscale images were obtained over the bilateral lower extremities in various projections. Additional duplex Doppler and color Doppler images were also obtained. CORRELATION STUDY: None FINDINGS: Right lower extremity: Color and grayscale sonographic images demonstrate no intraluminal defect within the visualized portion of the common femoral, superficial femoral and/or popliteal veins to suggest thrombus formation. These vessels demonstrate normal response to compression and augmentation. Left lower extremity: Findings are positive for deep venous thrombosis left leg. Clot originates within the calf veins along the posterior tibial and peroneal vein extending into the popliteal vein. These vessels are noncompressible. More centrally, femoral vein of thigh and common femoral vein are unremarkable IMPRESSION: 1. . Negative for deep venous thrombosis right leg. 2. POSITIVE for deep venous thrombosis left leg. Clot originates within the calf and extends to the level of the knee. Findings were relayed by the [place] guide at time of imaging. Dictated by: Dictated on workstation # [id number] Dict: 01/25/23 1318 Trans: 01/25/23 1500 NANCY [id number] Interpreted by: ROBE MENDIETA DO Electronically signed by: ROBE MENDIETA DO 01/25/23 1505 Departure Impression Primary Impression: Anemia Qualified Codes: D64.9 - Anemia, unspecified Additional Impressions: Sciatica Qualified Codes: M54.32 - Sciatica, left side DVT (deep venous thrombosis) Qualified Codes: I82.402 - Acute embolism and thrombosis of unspecified deep veins of left lower extremity Disposition: HOME, SELF-CARE Condition: Stable Departure-Patient Inst. Decision time for Depature: 14:09 Referrals: ETHEL MORROW DO (PCP) Primary Care Physician [facility] (Family) Primary Care Physician Patient Instructions: Deep Vein Thrombosis (Blood Clot in the Legs), Sciatica ED Add. Discharge Instructions: Continue taking your Eliquis and aspirin as prescribed. Call the vascular surgeon today to schedule a follow-up appointment. Follow-up with your primary care provider regarding your low hemoglobin and high blood pressure. Take the Medrol Dosepak as prescribed. It may increase your blood sugar. Take the Flexeril up to 3 times a day as needed for muscle spasms, it may make you sleepy. Return for if you develop shortness of breath, you start coughing up blood, have worsening chest pain, palpitations, nausea or vomiting, redness or warmth in your leg, fevers, are unable to walk, episodes of bladder or bowel incontinence, numbness or tingling in your inner thighs, worsening swelling or pain in your leg, or any other new, concerning, or worsening symptoms. Dr. [facility] [address] [place], [place] [address] All discharge instructions reviewed with patient and/or family. Voiced understanding. Scripts Cyclobenzaprine HCl (Cyclobenzaprine HCl) 10 Mg Tablet 10 MG PO TID, #21 TAB 0 Refills Prov: ALEJA PERRY [employer] 01/25/23 Methylprednisolone (Methylprednisolone Dose Pack) 4 Mg Tab.ds.pk 4 MG PO UD for 6 Days, #21 PKG 0 Refills PER DOSE PACK INSTRUCTIONS Prov: ALEJA PERRY APRN 01/25/23 ALEJA PERRY APRN Jan 25, 2023 12:26
[2023-01-25 12:32] LABS: BILIRUBIN,URINE NEGATIVE (NEGATIVE); CLARITY,URINE CLEAR; COLOR,URINE YELLOW; GLUCOSE, URINE (UA) NEGATIVE (NEGATIVE); KETONES,URINE NEGATIVE (NEGATIVE); LEUKOCYTE ESTERASE ,URINE TRACE (NEGATIVE); NITRITE,URINE NEGATIVE (NEGATIVE); PH,URINE 5.5 (5-9); PROTEIN,URINE 2+ (NEGATIVE)
[2023-01-25 12:42] LABS: BACTERIA,URINE NEGATIVE /HPF; HYALINE CASTS, URINE RARE /LPF; SQUAMOUS EPITHELIAL CELL,UR RARE /HPF; WBC,URINE RARE /HPF
--- NOTE | 2023-01-25 13:24 | Diagnostic Imaging Report ---
PROCEDURE: US Venous Lower Ext Forest. INDICATION: Leg swelling, pain TECHNIQUE: Multiple real-time grayscale images were obtained over the bilateral lower extremities in various projections. Additional duplex Doppler and color Doppler images were also obtained. CORRELATION STUDY: None FINDINGS: Right lower extremity: Color and grayscale sonographic images demonstrate no intraluminal defect within the visualized portion of the common femoral, superficial femoral and/or popliteal veins to suggest thrombus formation. These vessels demonstrate normal response to compression and augmentation. Left lower extremity: Findings are positive for deep venous thrombosis left leg. Clot originates within the calf veins along the posterior tibial and peroneal vein extending into the popliteal vein. These vessels are noncompressible. More centrally, femoral vein of thigh and common femoral vein are unremarkable IMPRESSION: 1. . Negative for deep venous thrombosis right leg. 2. POSITIVE for deep venous thrombosis left leg. Clot originates within the calf and extends to the level of the knee. Findings were relayed by the distribution tech at time of imaging. Dictated by: Dictated on workstation # [id number]
[2023-01-25] MEDS ORDERED: ORPHENADRINE 60 MG/2 ML (NORFLEX) AMP (ED ONLY) IV ONE (13:30)
[2023-01-25 13:40] LABS: BASOPHILS # (AUTO) 0.1 10^3/uL (0.0-0.1); BASOPHILS % (AUTO) 1 % (0-10); EOSINOPHILS # (AUTO) 0.1 10^3/uL (0.0-0.3); EOSINOPHILS % (AUTO) 2 % (0-10); HEMATOCRIT 34 % (35-52); HEMOGLOBIN 11.3 g/dL (11.5-16.0); LYMPHOCYTES # (AUTO) 1.2 10^3/uL (1.0-4.0); LYMPHOCYTES % (AUTO) 18 % (12-44); MEAN CORPUSCULAR HEMOGLOBIN 30 pg (25-34); MEAN CORPUSCULAR HGB CONC 33 g/dL (32-36); MEAN CORPUSCULAR VOLUME 90 fL (80-99); MEAN PLATELET VOLUME 9.8 fL (9.0-12.2); MONOCYTES # (AUTO) 0.8 10^3/uL (0.0-1.0); MONOCYTES % (AUTO) 12 % (0-12); NEUTROPHILS # (AUTO) 4.3 10^3/uL (1.8-7.8); NEUTROPHILS % (AUTO) 67 % (42-75); PLATELET COUNT 188 10^3/uL (130-400); WHITE BLOOD COUNT 6.4 10^3/uL (4.3-11.0)
[2023-01-25 13:41] LABS: ALBUMIN 3.4 GM/DL (3.2-4.5); POTASSIUM 3.8 MMOL/L (3.6-5.0)
[2023-01-25 13:43] LABS: CALCIUM 8.3 MG/DL (8.5-10.1)
[2023-01-25 13:44] LABS: TOTAL PROTEIN 5.9 GM/DL (6.4-8.2)
[2023-01-25 13:46] LABS: BILIRUBIN,TOTAL 0.2 MG/DL (0.1-1.0)
[2023-01-25 13:47] LABS: CREATININE SERUM 1.26 MG/DL (0.60-1.30)
[2023-01-25 13:50] LABS: MAGNESIUM 1.9 MG/DL (1.6-2.4)
[2023-01-25] MEDS ORDERED: METH4TAB10 PO (14:13)
[2023-01-25] MEDS ORDERED: CYCL10TA25 PO (14:13)
[2023-01-25] MEDS ORDERED: fentaNYL INJ 100 MCG/2 ML AMP IVP ONE (14:15)
[2023-01-25] MEDS ORDERED: HEParin (CENTRAL IV FLUSH) 500 UNIT/5 ML SYR IV ONE (14:30)
[2023-01-25 15:00] VITALS: BP 200/79
== END 2023-01-25 15:00 | disposition home or self-care (01) ==
LOC: EDUNIT# 11:57 → ER 11:59
DX: D50.9 Iron deficiency anemia, unspecified (principal); I82.402 Acute embolism and thrombosis of unspecified deep veins of left lower extremity; M54.42 Lumbago with sciatica, left side; E87.8 Other disorders of electrolyte and fluid balance, not elsewhere classified; G89.29 Other chronic pain; R79.89 Other specified abnormal findings of blood chemistry; Z79.01 Long term (current) use of anticoagulants; Z86.16 Personal history of COVID-19; Z79.1 Long term (current) use of non-steroidal anti-inflammatories (NSAID)
CPT/HCPCS: 36415; 80053; 81000; 83735; 84484; 85025; 93005; 93970

== ENCOUNTER → 2023-02-26 | Outpatient (CLI) | payer MEDICARE ==
[~2023-02-26] MED LIST changes: +BRIM5DRO3 OU; -BRIMON0.2 OU; +CYCL10TA25 PO; +METH4TAB10 PO
--- NOTE | 2023-02-26 09:52 | Diagnostic Imaging Report ---
PROCEDURE: MRI lumbar spine. TECHNIQUE: Multiplanar, multisequence MRI of the lumbar spine was performed without contrast. INDICATION: Back pain COMPARISON: CT abdomen pelvis 11/24/2020.. FINDINGS: Mild anterolisthesis of L5 on S1. Otherwise the lumbar lordosis is preserved. No marrow replacement process to suggest malignancy. Multilevel Schmorl nodes and vertebral body hemangiomas. No acute compression fracture. [id number] multilevel disc height loss and disc desiccation. Included views of the abdomen streaks partially imaged bilateral renal cysts as previously seen on CT abdomen pelvis on 11/24/2020. T12-L1: Disc bulge. Mild facet arthropathy. Mild spinal canal narrowing. No neural foraminal narrowing. L1-L2: Disc bulge. Mild facet arthropathy. Mild spinal canal narrowing. No neural foraminal narrowing. L2-L3: Disc bulge. Mild facet arthropathy. Mild spinal canal narrowing. Mild bilateral neural foraminal narrowing. L3-L4: Disc bulge. Moderate facet arthropathy. Ligamentum flavum thickening. Mild to moderate spinal canal narrowing. Mild bilateral neural foraminal narrowing. L4-L5: Disc bulge with annular fissure. Moderate facet arthropathy. Mild spinal canal narrowing. No neural foraminal narrowing. L5-S1: 6 mm anterolisthesis of L5 on S1. Severe facet arthropathy. Mild to moderate spinal canal narrowing. Mild to moderate bilateral neural foraminal narrowing. IMPRESSION: Moderate multilevel degenerative changes of the lumbar spine described level by level above. No high-grade spinal canal stenosis. Dictated by: Dictated on workstation # [id number]
== END ==
LOC: RAD 07:18
PROVIDERS: ATTEND Registered Nurse
DX: M51.16 Intervertebral disc disorders with radiculopathy, lumbar region (principal); M47.26 Other spondylosis with radiculopathy, lumbar region; M48.061 Spinal stenosis, lumbar region without neurogenic claudication; M24.28 Disorder of ligament, vertebrae; M51.15 Intervertebral disc disorders with radiculopathy, thoracolumbar region; M48.05 Spinal stenosis, thoracolumbar region; M47.25 Other spondylosis with radiculopathy, thoracolumbar region; M47.27 Other spondylosis with radiculopathy, lumbosacral region; M48.07 Spinal stenosis, lumbosacral region; M43.17 Spondylolisthesis, lumbosacral region
CPT/HCPCS: 72148

== ENCOUNTER 2023-03-05 13:52 | Outpatient (CLI) | payer MEDICARE ==
[~2023-03-05] VITALS: Wt 60.0 kg
[2023-03-05] MEDS ORDERED: HEParin (CENTRAL IV FLUSH) 500 UNIT/5 ML SYR IV PRN (14:00)
[2023-03-05] MEDS ORDERED: HEParin (CENTRAL IV FLUSH) 500 UNIT/5 ML SYR ONE (14:06)
[2023-03-05 14:49] VITALS: BP 182/87
== END 2023-03-05 14:20 | disposition home or self-care (01) ==
LOC: SDC 13:52
PROVIDERS: ATTEND Physician Assistant
DX: Z95.828 Presence of other vascular implants and grafts (principal)
CPT/HCPCS: 96523

== ENCOUNTER 2023-04-02 09:23 | Emergency (ER) | payer MEDICARE ==
[~2023-04-02] VITALS: Ht 167.7 cm; Wt 73.0 kg
[2023-04-02] MEDS ORDERED: morphine INJ 10 MG/ML 1ML (SYR OR VIAL) IVP STA ×2 (09:47→10:18)
[2023-04-02 09:58] LABS: BASOPHILS # (AUTO) 0.1 10^3/uL (0.0-0.1); BASOPHILS % (AUTO) 2 % (0-10); EOSINOPHILS # (AUTO) 0.2 10^3/uL (0.0-0.3); EOSINOPHILS % (AUTO) 5 % (0-10); HEMATOCRIT 39 % (35-52); HEMOGLOBIN 12.7 g/dL (11.5-16.0); LYMPHOCYTES # (AUTO) 1.5 10^3/uL (1.0-4.0); LYMPHOCYTES % (AUTO) 28 % (12-44); MEAN CORPUSCULAR HEMOGLOBIN 29 pg (25-34); MEAN CORPUSCULAR HGB CONC 33 g/dL (32-36); MEAN CORPUSCULAR VOLUME 90 fL (80-99); MEAN PLATELET VOLUME 9.6 fL (9.0-12.2); MONOCYTES # (AUTO) 0.6 10^3/uL (0.0-1.0); MONOCYTES % (AUTO) 11 % (0-12); NEUTROPHILS # (AUTO) 2.8 10^3/uL (1.8-7.8); NEUTROPHILS % (AUTO) 54 % (42-75); PLATELET COUNT 211 10^3/uL (130-400); WHITE BLOOD COUNT 5.2 10^3/uL (4.3-11.0)
--- NOTE | 2023-04-02 09:58 | ED Chest Pain ---
General Chief Complaint: Chest Pain Stated Complaint: LT ARM NUMBNESS | CHEST PAINS Source: patient Exam Limitations: no limitations History of Present Illness Date Seen by Provider: Apr 02, 2023 Time Seen by Provider: 09:27 Initial Comments 72-year-old female with past medical history of DVT on Eliquis and hypertension coming in due to chest pain and left arm numbness. The pain started 3 days ago, center of her chest, radiates to her arm. The numbness started 3 days ago as well. She states she did not have a ride to the ER. She did stop her Eliquis roughly 1 week ago for potential injection in her back. Denies any severe shortness of breath, abdominal pain, focal weakness, headache, vision changes, or any other concerns. Allergies and Home Medications Allergies Coded Allergies: clopidogrel (Verified Allergy, Severe, BLOOD CLOTS, 11/27/18) Penicillins (Verified Allergy, Mild, RASH, 11/27/18) carisoprodol (Verified Allergy, Mild, RASH, 11/27/18) cephalexin (Verified Allergy, Mild, RASH, 11/27/18) ketorolac (Verified Allergy, Mild, RASH, 11/27/18) prochlorperazine (Verified Allergy, Mild, RASH, 11/27/18) Carbamates (Verified Allergy, Unknown, Rash, 05/28/19) Patient Home Medication List Home Medication List Reviewed: Yes Albuterol Sulfate (Albuterol Sulfate) 2.5 Mg/3 Ml Vial.neb, 2 PUFF INH Q4H PRN for SHORTNESS OF BREATH Prescribed by: DASIA FRANKLIN on 11/25/20 1101 Amlodipine Besylate (Amlodipine Besylate) 10 Mg Tablet, 10 MG PO DAILY, (Reported) Entered as Reported by: ETHEL JONES on 11/14/20 1527 Aspirin (Aspirin EC) 81 Mg Tablet.dr, 81 MG PO DAILY Prescribed by: OLIVE ISAAC on 11/21/20 1010 Atorvastatin Calcium (Atorvastatin Calcium) 40 Mg Tablet, 40 MG PO HS, (Reported) Entered as Reported by: REMA LIZAMA on 09/03/19 1408 Cholecalciferol (Vitamin D3) (Vitamin D3) 50 Mcg Tablet, 50 MCG PO DAILY, (Repor irwin) Entered as Reported by: ETHEL JONES on 11/14/20 1527 Ciprofloxacin HCl (Ciprofloxacin HCl) 500 Mg Tablet, 500 MG PO BID Prescribed by: TAYLOR FORRESTER on 02/22/22 1506 Codeine/Butalbital/ASA/Caffein (AWS-Bdauyf-Wiyc-Cod #3 Capsule) 1 Each Capsule, 1 EACH PO DAILY PRN for MIGRAINE, (Reported) Entered as Reported by: ETHEL JONES on 11/14/20 1527 Cyclobenzaprine HCl (Cyclobenzaprine HCl) 10 Mg Tablet, 10 MG PO TID Prescribed by: Aleja Shetty on 01/25/23 1413 Duloxetine HCl (Cymbalta) 30 Mg Capsule.dr, 30 MG PO DAILY, (Reported) Entered as Reported by: BARRETT DANIELLE on 11/27/18 0949 Folic Acid (Folic Acid) 1 Mg Tablet, 1 MG PO DAILY, (Reported) Entered as Reported by: NAOMY ESTRADA on 05/28/19 1246 Hydrocodone/Acetaminophen (Hydrocodone-Acetamin 10-325 mg) 10 Mg-325 Mg Tablet, 1 EACH PO Q6H PRN for PAIN-BREAKTHROUGH Prescribed by: GUSTABO CARRINGTON on 07/02/22 0356 Hydroxychloroquine Sulfate (Hydroxychloroquine Sulfate) 200 Mg Tablet, 200 MG PO BID, (Reported) Entered as Reported by: NAOMY ESTRADA on 05/28/19 1252 Hyoscyamine Sulfate (Levsin-Sl) 0.125 Mg Tab.subl, 0.25 MG SL Q4H Prescribed by: RAPHAEL DUNCAN on 11/26/202106 Levetiracetam (Levetiracetam) 500 Mg Tablet, 500 MG PO BID Prescribed by: OLIVE ISAAC on 11/21/20 1010 Methylprednisolone (Methylprednisolone Dose Pack) 4 Mg Tab.ds.pk, 4 MG PO UD Prescribed by: Aleja Shetty on 01/25/23 1413 Metoprolol Succinate (Metoprolol Succinate) 100 Mg Tab.er.24h, 100 MG PO DAILY, (Reported) Entered as Reported by: REMA LIZAMA on 09/03/19 1408 Metronidazole (Metronidazole) 500 Mg Tablet, 500 MG PO BID Prescribed by: GUSTABO CARRINGTON on 05/23/22 1517 Ondansetron (Ondansetron Odt) 4 Mg Tab.rapdis, 4 MG PO Q4H PRN for NAUSEA-1ST LINE Prescribed by: DASIA FRANKLIN on 11/25/20 1101 Ondansetron (Ondansetron Odt) 8 Mg Tab.rapdis, 8 MG PO Q6H Prescribed by: RAPHAEL DUNCAN on 11/26/202106 Ondansetron (Ondansetron Odt) 4 Mg Tab.rapdis, 4 MG PO Q4H PRN for NAUSEA/VOMITING-1ST LINE Prescribed by: TAYLOR FORRESTER on 05/15/22 1605 Ondansetron (Ondansetron Odt) 4 Mg Tab.rapdis, 4 MG SL Q8H PRN for NAUSEA/VOMITING Prescribed by: WENDY DAWN on 10/05/22 1214 Pantoprazole Sodium (Pantoprazole Sodium) 40 Mg Tablet.dr, 40 MG PO DAILY, (Reported) Entered as Reported by: BARRETT DANIELLE on 11/27/18 0949 Pantoprazole Sodium (Protonix) 40 Mg Tablet.dr, 40 MG PO DAILY Prescribed by: RAPHAEL DUNCAN on 11/26/202106 Prednisone (Prednisone) 20 Mg Tab, 40 MG PO DAILY Prescribed by: JARED ODELL on 03/26/21 1523 Topiramate (Topiramate) 50 Mg Tablet, 75 MG PO BID, (Reported) Entered as Reported by: BARRETT DANIELLE on 11/27/18 0949 Review of Systems Review of Systems Constitutional: No fever EENTM: No Symptoms Reported Respiratory: No Symptoms Reported Cardiovascular: See HPI Gastrointestinal: No Symptoms Reported Genitourinary: No Symptoms Reported Musculoskeletal: no symptoms reported Skin: no symptoms reported Psychiatric/Neurological: See HPI Endocrine: No Symptoms Reported Hematologic/Lymphatic: No Symptoms Reported Past Nmlsgqg-Chjeml-Qctvdz Hx Patient Social History Tobacco Use?: No Substance use?: No Alcohol Use?: No Pt feels they are or have been: No Immunizations Up To Date Tetanus Booster (TDap): Unknown First/Initial COVID19 Vaccinat: UNKNOWN Second COVID19 Vaccination Enrique: UNKNOWN Third COVID19 Vaccination Date: UNKNOWN Seasonal Allergies Seasonal Allergies: No Past Medical History Surgery/Hospitalization HX: RT SHOULDER, BREAST, HYSTERECTOMY, THRYOIDECTOMY, CARDIAC STENT, A FIB, IN, PANCREATITIS, STROKE, PNEUMONIA, COVID-19 11/10, DVT, HIGH CHOLESTEROL, HTN, LOOP RECORDER, LT SUB CLAVIAN PORT Surgeries: Yes (R CTR, espohageal ligation x2, Hernia, L RCR, L TKR, laparotomy, MRSA infec) Abdominal, Breast, Cardiac, Coronary Stent, Hysterectomy, Joint Replacement, Oophorectomy, Orthopedic, Thyroidectomy Respiratory: Yes (COVID-19 November 07, 2020-ADMITTED WITH PNEUMONIA) Pneumonia Currently Using CPAP: No Currently Using BIPAP: No Cardiac: Yes (HX HEART CATH-STENT;MILD BILAT CAROTID STENOSIS;DVT L ARM DUE TO PICC LINE) Coronary Artery Disease, Deep Vein Thrombosis, Heart Attack, High Cholesterol, Hypertension, Peripheral Vascular Neurological: Yes Headaches /Migraines, 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, 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 Sexually Transmitted Disease: No HIV/AIDS: No Genitourinary: Yes (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,STAGE 2-KIDNEY DISEASE;DIABETIC NEPHROPA ) Bladder Infection, Renal Failure, Dialysis Gastrointestinal: Yes (HX GI BLEED, zenkers syndrome-chokes easily, hx hep A;LIVER INJURY/TRAUMA) Abdominal Hernia, Gastroesophageal Reflux, Gastrointestinal Bleed, Esophageal Varices, Hepatitis Musculoskeletal: Yes (OSTEOARTHRITIS, BULGING DISCS) Arthritis, Chronic Back Pain Endocrine: Yes (partial thyroidectomy) Hypothyroidsim HEENT: Yes (GLASSES, UPPER DENTURES) Glaucoma Loss of Vision: Bilateral Cancer: Yes Breast Did You Recieve Any Treatments: Yes What Type of Treatment Did You: Radiation, Surgical Intervention Psychosocial: No Integumentary: No Blood Disorders: Yes (IRON DEFFICIENCY ANEMIA-GETS IRON INFUSIONS) Adverse Reaction/Blood Tranf: No (HAS HAD BLOOD WITH NO REACTION) Family Medical History Hypertension G8 BROTHER Not obtainable due to adoption 19 FATHER Heart Disease, Hypertension ADDITIONAL PAST SURGICAL HISTORY -ZENKER'S DIVERTICULUM SURGERY X 2 -ABDOMINAL HERNIA REPAIR WITH MESH -MESH REMOVAL AND LYSIS OF ADHESIONS -HYST/BSO -LOOP RECORDER -PORT LEFT CHEST -LEFT BREAST LUMPECTOMY -CARDIAC CATH WITH STENT X 1 TO RCA 2010 -PORT LEFT CHEST -RIGHT SHOULDER REPLACEMENT -RENAL ARTERY STENOSIS WITH STENT 2013 Physical Exam Vital Signs Vital Signs - First Documented 04/02/23 09:29 Temp 35.6 Pulse 87 Resp 20 B/P (MAP) 229/117 (154) Pulse Ox 99 O2 Delivery Room Air Capillary Refill : Less Than 3 Seconds Height, Weight, BMI Height: 5'4.00" Weight: 216lbs. 4.2oz. 98.594546fd; 27.00 BMI Method:Stated General Appearance: No Apparent Distress, WD/WN HEENT: PERRL/EOMI, Normal ENT Inspection, Pharynx Normal Neck: Full Range of Motion, Normal Inspection, Non Tender, Supple Respiratory: Chest Non Tender, Lungs Clear, Normal Breath Sounds, No Accessory Muscle Use, No Respiratory Distress Cardiovascular: Regular Rate, Rhythm, No Edema, Normal Peripheral Pulses Gastrointestinal: Normal Bowel Sounds, Non Tender, Soft; No Distended, No Guarding Extremity: Normal Capillary Refill, Normal Inspection, Normal Range of Motion, Non Tender, No Calf Tenderness, No Pedal Edema Neurologic/Psychiatric: Alert, Oriented x3, Normal Mood/Affect, 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 Norm as Tested, Other (5 out of 5 strength in bilateral upper and lower extremities, decree sensation in the left upper extremity) Skin: Normal Color, Warm/Dry Progress/Results/Core Measures Results/Orders Lab Results Laboratory Tests Test 04/02/23 09:33 Range/Units White Blood Count 5.2 4.3-11.0 10^3/uL Red Blood Count 4.32 3.80-5.11 10^6/uL Hemoglobin 12.7 11.5-16.0 g/dL Hematocrit 39 35-52 % Mean Corpuscular Volume 90 80-99 fL Mean Corpuscular Hemoglobin 29 25-34 pg Mean Corpuscular Hemoglobin Concent 33 32-36 g/dL Red Cell Distribution Width 12.4 10.0-14.5 % Platelet Count 211 130-400 10^3/uL Mean Platelet Volume 9.6 9.0-12.2 fL Immature Granulocyte % (Auto) 0 % Neutrophils (%) (Auto) 54 42-75 % Lymphocytes (%) (Auto) 28 12-44 % Monocytes (%) (Auto) 11 0-12 % Eosinophils (%) (Auto) 5 0-10 % Basophils (%) (Auto) 2 0-10 % Neutrophils # (Auto) 2.8 1.8-7.8 10^3/uL Lymphocytes # (Auto) 1.5 1.0-4.0 10^3/uL Monocytes # (Auto) 0.6 0.0-1.0 10^3/uL Eosinophils # (Auto) 0.2 0.0-0.3 10^3/uL Basophils # (Auto) 0.1 0.0-0.1 10^3/uL Immature Granulocyte # (Auto) 0.0 0.0-0.1 10^3/uL Prothrombin Time 13.0 12.2-14.7 SEC INR Comment 1.0 0.8-1.4 Activated Partial Thromboplast Time 41 H 24-35 SEC D-Dimer 0.28 0.00-0.49 UG/ML Sodium Level 142 135-145 MMOL/L Potassium Level 3.8 3.6-5.0 MMOL/L Chloride Level 110 H 98-107 MMOL/L Carbon Dioxide Level 22 21-32 MMOL/L Anion Gap 10 5-14 MMOL/L Blood Urea Nitrogen 19 H 7-18 MG/DL Creatinine 1.07 0.60-1.30 MG/DL Estimat Glomerular Filtration Rate 55 BUN/Creatinine Ratio 18 Glucose Level 135 H 70-105 MG/DL Calcium Level 8.7 8.5-10.1 MG/DL Corrected Calcium 8.9 8.5-10.1 MG/DL Magnesium Level 1.9 1.6-2.4 MG/DL Total Bilirubin 0.3 0.1-1.0 MG/DL Aspartate Amino Transf (AST/SGOT) 14 5-34 U/L Alanine Aminotransferase (ALT/SGPT) 12 0-55 U/L Alkaline Phosphatase 112 40-136 U/L Troponin I < 0.028 <0.028 NG/ML B-Type Natriuretic Peptide 51.6 <100.0 PG/ML Total Protein 6.8 6.4-8.2 GM/DL Albumin 3.7 3.2-4.5 GM/DL Lipase 36 8-78 U/L My Orders Orders - NEPTALI WAHL MD Ekg Tracing (04/02/23 09:25) Ct Angio Chest W(R/O Tad) (04/02/23 09:47) Cbc With Automated Diff (04/02/23 09:47) Magnesium (04/02/23 09:47) Chest 1 View, Ap/Pa Only (04/02/23 09:47) Comprehensive Metabolic Panel (04/02/23 09:47) Protime With Inr (04/02/23 09:47) Partial Thromboplastin Time (04/02/23 09:47) O2 (04/02/23 09:47) Monitor-Rhythm Ecg Trace Only (04/02/23 09:47) Ed Iv/Invasive Line Start (04/02/23 09:47) Lipase (04/02/23 09:47) Bnp Dave (04/02/23 09:47) Fibrin Degradation Products (04/02/23 09:47) Troponin I Dave (04/02/23 09:47) Clonidine Tablet (Catapres Tablet) (04/02/23 10:00) Amlodipine Tablet (Norvasc Tablet) (04/02/23 10:00) Metoprolol Succinate (Xl) Tab (Toprol Xl (04/02/23 10:00) Morphine Injection (Morphine Injection (04/02/23 09:47) Ondansetron Injection (Zofran Injectio (04/02/23 10:00) Morphine Injection (Morphine Injection (04/02/23 10:18) Ct Head Wo (04/02/23 09:47) Iohexol Injection (Omnipaque 350 Mg/Ml 1 (04/02/23 11:30) Ns (Ivpb) (Sodium Chloride 0.9% Ivpb Bag (04/02/23 11:30) Medications Given in ED Current Medications Medications Dose Ordered Sig/Ana María Route Start Time Stop Time Status Last Admin Dose Admin Amlodipine Besylate 10 mg ONCE ONCE PO 04/02/23 10:00 04/02/23 10:01 DC 04/02/23 11:03 10 MG Clonidine HCl 0.1 mg ONCE ONCE PO 04/02/23 10:00 04/02/23 10:01 DC 04/02/23 11:03 0.1 MG Iohexol 100 ml ONCE ONCE IV 04/02/23 11:30 04/02/23 11:31 DC 04/02/23 11:22 69 ML Metoprolol Succinate 200 mg ONCE ONCE PO 04/02/23 10:00 04/02/23 10:01 DC 04/02/23 12:04 200 MG Ondansetron HCl 4 mg ONCE ONCE IVP 04/02/23 10:00 04/02/23 10:01 DC 04/02/23 11:00 4 MG Sodium Chloride 100 ml ONCE ONCE IV 04/02/23 11:30 04/02/23 11:31 DC 04/02/23 11:22 70 ML Vital Signs/I&O 04/02/23 09:29 Temp 35.6 Pulse 87 Resp 20 B/P (MAP) 229/117 (154) Pulse Ox 99 O2 Delivery Room Air Progress Progress Note : Progress Note 72-year-old female with above history coming in due to chest pain and left arm numbness. ABCs were intact and vitals are stable on presentation although she is very hypertensive. She takes for blood pressure medicines, and has not taken any of them today including her clonidine. I suspect part of this is a rebound hypertension from not taking clonidine. We will give her her home antihypertensives. EKG ordered and interpreted by me showing no acute ischemic changes. Chest x-ray ordered and interpreted by me showing no pneumothorax, no opacities, normal cardiac silhouette. An IV was placed and basic labs were obtained and were significant for normal troponin, normal BNP, negative D-dimer all making ACS and PE less likely. She had been on Eliquis for a while for her DVT, I do not see any clinical signs of a DVT at this time. Highest on the differential at this point would be an aortic dissection. CTA chest will be ordered. I did contact the radiologist and discussed the test with him perso deepali. We also do a CT head Noncon. I suspect that the chest pain that this is unlikely to be a stroke. Since the numbness has been there for 3 days, this will not be a stroke alert and she is not a candidate for any type of thrombolysis or procedure. I would expect to have findings on the CT Noncon since it has been present for 3 days if it is a stroke. CT head on my interpretation with no obvious bleed and no obvious stroke. CTA chest with no obvious blood clot or dissection. Per the radiology read, it was negative as well. Does have an incidental finding on her kidney which I will alert her to for follow-up as an outpatient. Pain has improved on reassessment after IV morphine. Clinically no DVT, no dissection, negative for ACS, and no large stroke. I believe she stable for discharge with outpatient follow-up with cardiology. She was sent home with strict return precautions. Of note, the CT did mention an incidental finding of potentially a cyst on her left kidney. I discussed this with the patient and discussed that she needs to have outpatient follow-up of this. She was agreeable to this plan. She states she believes that this has been there and she knows about it. Initial ECG Impression Date: Apr 02, 2023 Initial ECG Impression Time: 09:31 Initial ECG Rate: 81 Initial ECG Rhythm: Normal Sinus Comment Narrow QRS, normal axis, no significant ST changes or T wave abnormalities Diagnostic Imaging Diagonstic Imaging: Xray (chest), CT (CT head non con, CTA chest) Comments [facility] [place] NAME: KEO AGUIRRE [facility] REC#: [id number] PT STATUS: REG ER : 1950 PHYSICIAN: NEPTALI WAHL MD ADMIT DATE: 04/02/23/ER Signed Date of Exam:04/02/23 CHEST 1 VIEW, AP/PA ONLY EXAMINATION: Chest 1 view HISTORY: Chest pain COMPARISON: 05/15/2022 FINDINGS: Heart size and pulmonary vasculature are normal. The lungs are clear without consolidation, pleural effusion, or pneumothorax. The osseous structures are intact. Left-sided Port-A-Cath is present, unchanged. IMPRESSION: 1. No acute radiographic abnormality in the chest. Dictated by: Dictated on workstation # [id number] Dict: 04/02/23 1031 Trans: 04/02/23 1103 [facility] [id number] Interpreted by: LYNDSAY KRAUSE DO Electronically signed by: LYNDSAY KRAUSE DO 04/02/23 1103 NAME: KEO AGUIRRE [facility] REC#: [id number] PT STATUS: REG ER : 1950 PHYSICIAN: NEPTALI WAHL MD ADMIT DATE: 04/02/23/ER Signed Date of Exam:04/02/23 CT HEAD WO EXAMINATION: CT head without contrast. TECHNIQUE: Multiple contiguous axial images were obtained through the brain without the use of intravenous contrast. All CT scans use one or more of the following dose optimizing techniques: automated exposure control, MA and/or KvP adjustment based on patient size and exam type or iterative reconstruction. HISTORY: Left arm numbness and chest pain COMPARISON: 07/02/2022 FINDINGS: Mild diffuse cerebral volume loss with proportional enlargement of the ventricles and sulci. No abnormal attenuation of brain parenchyma is present. Chronic right basal ganglia lacunar infarct or perivascular space. No acute intracranial hemorrhage or abnormal extra-axial fluid collections are present. Calcification of the intracranial ICAs. No hyperdense vessel. The calvarium is intact. The mastoid air cells are clear. The visualized paranasal sinuses are clear. Surgical changes from left cataract repair. IMPRESSION: 1. No acute intracranial abnormality. Dictated by: Dictated on workstation # [id number] Dict: 04/02/23 1117 Trans: 04/02/23 1132 [facility] [id number] Interpreted by: LYNDSAY KRAUSE DO Electronically signed by: LYNDSAY KRAUSE DO 04/02/23 1132 NAME: KEO AGUIRRE [facility] REC#: [id number] PT STATUS: REG ER : 1950 PHYSICIAN: NEPTALI WAHL MD ADMIT DATE: 04/02/23/ER Signed Date of Exam:04/02/23 CT ANGIO CHEST W(R/O TAD) EXAMINATION: CT angiography of the chest. TECHNIQUE: Contrast enhanced thin section helical images were obtained through the chest with intravenous contrast timed for the optimal opacification of the arterial structures per CTA protocol. Post-processing, reconstructions and interpretation of angiographic images of the vessels was performed. 3D MIP reconstructions were performed and reviewed. All CT scans use one or more of the following dose optimizing techniques: automated exposure control, MA and/or KvP adjustment based on a patient size and exam type, or iterative reconstruction. HISTORY: Left arm numbness and chest pain COMPARISON: None available. FINDINGS: Vascular: There are no filling defects within the pulmonary arteries. There are vascular calcifications of the aorta and coronary vessels without aneurysm. Thyroid: The thyroid is normal. Mediastinum: Heart size is normal without significant pericardial effusion. No suspicious lymphadenopathy. A left-sided Port-A-Cath is present. Lungs and airways: The lungs are clear without consolidation, pleural effusion, or pneumothorax. There is atelectasis within the dependent lungs. The airways are normal. Upper abdomen: Bilateral renal cysts are partially visualized. One of these is hyperdense on the left. Musculoskeletal: Degenerative changes of the spine without suspicious osseous lesion or compression fracture. IMPRESSION: 1. No findings of pulmonary embolus or other acute abnormality in the chest. 2. Incidentally seen hyperdense left renal cortical lesion. This may represent a hemorrhagic or proteinaceous cyst but evaluation with CT or MRI renal mass protocol would be helpful for better characterization in the nonemergent setting. Dictated by: Dictated on workstation # [id number] Dict: 04/02/23 1149 Trans: 04/02/23 1157 [facility] [id number] Interpreted by: LYNDSAY KRAUSE DO Electronically signed by: LYNDSAY KRAUSE DO 04/02/23 1157 Departure Impression Primary Impression: Chest pain Qualified Codes: R07.82 - Intercostal pain Additional Impression: Left arm numbness Disposition: 01 HOME, SELF-CARE Condition: Stable Departure-Patient Inst. Decision time for Depature: 12:20 Referrals: ETHEL MORROW DO (PCP) Primary Care Physician [facility] (Family) Primary Care Physician Patient Instructions: Chest Pain, Adult ED Add. Discharge Instructions: We are not seeing any evidence of heart attack, aortic dissection, but blood clot, or anything else life-threatening. We did not see any obvious signs of stroke on the CT of your head as well. Please follow-up with Dr. Singh for an evaluation as well for your chest pain. NEPTALI WAHL MD Apr 02, 2023 09:58
[2023-04-02] MEDS ORDERED: cloNIDine 0.1 MG (CATAPRES) TAB PO ONE (10:00)
[2023-04-02] MEDS ORDERED: ONDANSETRON 4 MG/2 ML (SDV) Z0FRAN IVP ONE (10:00)
[2023-04-02] MEDS ORDERED: meTOprolol SUCCINATE 100 MG (TOPROL XL) TAB PO ONE (10:00)
[2023-04-02] MEDS ORDERED: amLODIPine 10 MG (NORVASC) TAB PO ONE (10:00)
[2023-04-02 10:03] LABS: ALBUMIN 3.7 GM/DL (3.2-4.5); CHLORIDE 110 MMOL/L (98-107); POTASSIUM 3.8 MMOL/L (3.6-5.0); SODIUM 142 MMOL/L (135-145)
[2023-04-02 10:04] LABS: CALCIUM 8.7 MG/DL (8.5-10.1)
[2023-04-02 10:05] LABS: GLUCOSE 135 MG/DL (70-105); TOTAL PROTEIN 6.8 GM/DL (6.4-8.2)
[2023-04-02 10:06] LABS: CARBON DIOXIDE 22 MMOL/L (21-32)
[2023-04-02 10:07] LABS: BILIRUBIN,TOTAL 0.3 MG/DL (0.1-1.0)
[2023-04-02 10:09] LABS: ALKALINE PHOSPHATASE 112 U/L (40-136)
[2023-04-02 10:12] LABS: ALANINE AMINOTRANSFERASE 12 U/L (0-55); MAGNESIUM 1.9 MG/DL (1.6-2.4)
[2023-04-02 10:17] LABS: FIBRIN DEGRADATION PRODUCTS 0.28 UG/ML (0.00-0.49)
--- NOTE | 2023-04-02 10:33 | Diagnostic Imaging Report ---
EXAMINATION: Chest 1 view HISTORY: Chest pain COMPARISON: 05/15/2022 FINDINGS: Heart size and pulmonary vasculature are normal. The lungs are clear without consolidation, pleural effusion, or pneumothorax. The osseous structures are intact. Left-sided Port-A-Cath is present, unchanged. IMPRESSION: 1. No acute radiographic abnormality in the chest. Dictated by: Dictated on workstation # [id number]
[2023-04-02 10:39] LABS: BUN/CREATININE RATIO 18; CREATININE SERUM 1.07 MG/DL (0.60-1.30); GFR ESTIMATED 55; LIPASE 36 U/L (8-78)
--- NOTE | 2023-04-02 11:21 | Diagnostic Imaging Report ---
EXAMINATION: CT head without contrast. TECHNIQUE: Multiple contiguous axial images were obtained through the brain without the use of intravenous contrast. All CT scans use one or more of the following dose optimizing techniques: automated exposure control, MA and/or KvP adjustment based on patient size and exam type or iterative reconstruction. HISTORY: Left arm numbness and chest pain COMPARISON: 07/02/2022 FINDINGS: Mild diffuse cerebral volume loss with proportional enlargement of the ventricles and sulci. No abnormal attenuation of brain parenchyma is present. Chronic right basal ganglia lacunar infarct or perivascular space. No acute intracranial hemorrhage or abnormal extra-axial fluid collections are present. Calcification of the intracranial ICAs. No hyperdense vessel. The calvarium is intact. The mastoid air cells are clear. The visualized paranasal sinuses are clear. Surgical changes from left cataract repair. IMPRESSION: 1. No acute intracranial abnormality. Dictated by: Dictated on workstation # [id number]
[2023-04-02] MEDS ORDERED: NS 100 ML (IVPB) BAG IV ONE (11:30)
[2023-04-02] MEDS ORDERED: IOHEXOL 350 MG/ML 100 ML (OMNIPAQUE 350) VIAL IV ONE (11:30)
--- NOTE | 2023-04-02 11:55 | Diagnostic Imaging Report ---
EXAMINATION: CT angiography of the chest. TECHNIQUE: Contrast enhanced thin section helical images were obtained through the chest with intravenous contrast timed for the optimal opacification of the arterial structures per CTA protocol. Post-processing, reconstructions and interpretation of angiographic images of the vessels was performed. 3D MIP reconstructions were performed and reviewed. All CT scans use one or more of the following dose optimizing techniques: automated exposure control, MA and/or KvP adjustment based on a patient size and exam type, or iterative reconstruction. HISTORY: Left arm numbness and chest pain COMPARISON: None available. FINDINGS: Vascular: There are no filling defects within the pulmonary arteries. There are vascular calcifications of the aorta and coronary vessels without aneurysm. Thyroid: The thyroid is normal. Mediastinum: Heart size is normal without significant pericardial effusion. No suspicious lymphadenopathy. A left-sided Port-A-Cath is present. Lungs and airways: The lungs are clear without consolidation, pleural effusion, or pneumothorax. There is atelectasis within the dependent lungs. The airways are normal. Upper abdomen: Bilateral renal cysts are partially visualized. One of these is hyperdense on the left. Musculoskeletal: Degenerative changes of the spine without suspicious osseous lesion or compression fracture. IMPRESSION: 1. No findings of pulmonary embolus or other acute abnormality in the chest. 2. Incidentally seen hyperdense left renal cortical lesion. This may represent a hemorrhagic or proteinaceous cyst but evaluation with CT or MRI renal mass protocol would be helpful for better characterization in the nonemergent setting. Dictated by: Dictated on workstation # [id number]
[2023-04-02 12:22] VITALS: BP 160/88
== END 2023-04-02 12:27 | disposition home or self-care (01) ==
LOC: EDUNIT# 09:23 → ER 09:25
DX: R07.9 Chest pain, unspecified (principal); R20.0 Anesthesia of skin; I10 Essential (primary) hypertension; I12.9 Hypertensive chronic kidney disease with stage 1 through stage 4 chronic kidney disease, or unspecified chronic kidney disease; E11.22 Type 2 diabetes mellitus with diabetic chronic kidney disease; N18.2 Chronic kidney disease, stage 2 (mild); Z86.718 Personal history of other venous thrombosis and embolism; Z79.01 Long term (current) use of anticoagulants; Z86.16 Personal history of COVID-19; Z99.2 Dependence on renal dialysis
CPT/HCPCS: 36415; 70450; 71045; 71275; 80053; 83690; 83735; 83880; 84484; 85025; 85379; 85610; 85730; 93005; 93041

== ENCOUNTER → 2023-04-16 | Outpatient (CLI) | payer MEDICARE ==
--- NOTE | 2023-04-16 08:35 | Diagnostic Imaging Report ---
PROCEDURE: MR imaging cervical spine without contrast. TECHNIQUE: Multiplanar, multisequence MR imaging of the cervical spine was performed without contrast. INDICATION: Neck pain COMPARISON: MRI of the cervical spine on 11/20/2022. FINDINGS: Exaggerated lordosis of the cervical spine. No acute fracture. Moderate multilevel degenerative disc desiccation and disc height loss. No marrow replacing process to suggest malignancy. The spinal cord is normal in signal intensity. On the limited views of the cranial cavity and brain, the cerebellum and liat have normal morphology and signal characteristics. No Chiari malformation. No soft tissue abnormality. Normal signal voids are present in the vertebral arteries. C2-3: No significant spinal canal stenosis or neural foraminal narrowing. C3-4: Disc osteophyte complex. Uncovertebral and facet arthropathy. Mild spinal canal narrowing. Mild bilateral neural foraminal narrowing.. C4-5: Disc osteophyte complex. Uncovertebral and facet arthropathy. Moderate spinal canal stenosis. Moderate bilateral neural foraminal narrowing.. C5-6: Disc osteophyte complex. Uncovertebral and facet arthropathy. Mild spinal canal narrowing. Severe right and mild left neural foraminal narrowing. C6-7: Disc osteophyte complex. Uncovertebral and facet arthropathy. Moderate spinal canal narrowing. Mild bilateral neural foraminal narrowing.. C7-T1: No significant spinal canal stenosis or neural foraminal narrowing. IMPRESSION: Similar moderate multilevel degenerative changes of the cervical spine, worst at C4-C5 with moderate spinal canal stenosis and moderate bilateral neural foraminal narrowing. Dictated by: Dictated on workstation # [id number]
== END ==
LOC: RAD 07:16
PROVIDERS: ATTEND Nurse Practitioner
DX: M47.22 Other spondylosis with radiculopathy, cervical region (principal); M48.02 Spinal stenosis, cervical region
CPT/HCPCS: 72141

== ENCOUNTER → 2023-05-07 | Outpatient (CLI) | payer MEDICARE ==
[~2023-05-07] MED LIST changes: +HEParin (CENTRAL IV FLUSH) 500 UNIT/5 ML SYR ONE; -HYDR200T46 PO; +HYDR200T71 PO; +SENN-341 PO; -SNN187T PO
[2023-05-07 08:20] VITALS: BP 118/62
== END ==
LOC: SDC 08:11
PROVIDERS: ATTEND Pediatrics
DX: Z95.828 Presence of other vascular implants and grafts (principal)
CPT/HCPCS: 96523

== ENCOUNTER → 2023-05-15 | Outpatient (CLI) | payer MEDICARE ==
[~2023-05-15] MED LIST changes: -HEParin (CENTRAL IV FLUSH) 500 UNIT/5 ML SYR ONE
== END ==
LOC: ORTHO 10:19
PROVIDERS: ATTEND Orthopaedic Surgery
DX: M47.26 Other spondylosis with radiculopathy, lumbar region (principal); M16.12 Unilateral primary osteoarthritis, left hip; I12.9 Hypertensive chronic kidney disease with stage 1 through stage 4 chronic kidney disease, or unspecified chronic kidney disease; E11.22 Type 2 diabetes mellitus with diabetic chronic kidney disease; N18.30 Chronic kidney disease, stage 3 unspecified; I25.10 Atherosclerotic heart disease of native coronary artery without angina pectoris; E78.2 Mixed hyperlipidemia; E66.9 Obesity, unspecified
CPT/HCPCS: 99203

== ENCOUNTER 2023-06-28 08:37 | Outpatient (CLI) | payer MEDICARE ==
[~2023-06-28] VITALS: Ht 162.6 cm; Wt 77.1 kg
[~2023-06-28 08:37] MED LIST changes: +ROPI0.5T37 PO; -ROPI0.5T4 PO; -ROPI1TAB PO; +ROPI1TAB46 PO
[2023-06-28] MEDS ORDERED: FERR-84 PO (11:27)
[2023-06-28] MEDS ORDERED: METO200T48 PO (11:27)
[2023-06-28] MEDS ORDERED: GBPN600T PO (11:27)
[2023-06-28] MEDS ORDERED: ROPI1TAB46 PO (11:27)
[2023-06-28] MEDS ORDERED: LEFL20TA18 PO (11:27)
== END 2023-06-28 12:08 | disposition home or self-care (01) ==
LOC: PREOP 08:37
PROVIDERS: ATTEND Surgery
DX: Z01.818 Encounter for other preprocedural examination (principal)

== ENCOUNTER 2023-07-01 08:55 | Day surgery (SDC) | payer MEDICARE ==
[~2023-07-01] VITALS: Ht 162.6 cm; Wt 77.1 kg
[~2023-07-01 08:55] MED LIST changes: +FERR-84 PO; +GBPN600T PO; +LEFL20TA18 PO; +METO200T48 PO
[2023-07-01] MEDS ORDERED: LACTATED RINGERS 1,000 ML 1,000 ML IV STA (09:00)
[2023-07-01] MEDS ORDERED: LACTATED RINGERS 1,000 ML 1,000 ML IV ONE (09:10)
[2023-07-01 09:35] VITALS: BP 144/74
[2023-07-01] MEDS ORDERED: proPOfol INJECTION 200 MG/20 ML VIAL IV ONE ×2 (10:17→10:35)
[2023-07-01 10:45] VITALS: BP 133/60
--- NOTE | 2023-07-01 10:49 | Endoscopy Discharge Instruct ---
Endo Procedure/Findings Findings 1.: Polyp 2.: Internal Hemorrhoids Discharge Instructions - Activity: You might feel a little sleepy until tomorrow. This is due to the medicine you received to relax you. Until tomorrow, you should: NOT drive a car, operate machinery or power tools. NOT drink any alcoholic beverages. NOT make any important decisions or sign importortant papers. Do not return to work until tomorrow, unless otherwise instructed. Resume previous activities tomorrow. Diet: Start by taking liquids. If you tolerate liquids, advance to solid food. 1.: Colonscopy in 5 years Notify Physician - If you experience excessive bleeding, unusual abdominal pain, fever, or chest pain, contact your doctor immediately. Follow-Up: Other Follow up in my office in one week VERONICA LIAO DO Jul 01, 2023 10:49
--- NOTE | 2023-07-01 10:49 | Progress Note-Post Operative ---
Post-Operative Progess Note Surgeon (s)/Publication Designer (s) Surgeon VERONICA LIAO DO Publication Designer: Cesar Phong, MSIII Pre-Operative Diagnosis +Cologuard, Diarrhea, anemia Post-Operative Diagnosis Polyps int hemorrhoids Procedure & Operative Findings Date of Procedure 07/01/23 Procedure Performed/Findings Colonoscopy with snare polypectomy PROCEDURE NOTE: After informed consent was obtained, the patient was brought to the endoscopy suite, placed in bed in left lateral decubitus position. She was administered IV sedation by the TAXI SERVICER who then monitored her vitals the entire time, heart rate, blood pressure and pulse ox and the scope was inserted. On the way in found a small polyp in the Descending colon; removed it with snare polypectomy. Continued up and found a larger flat polyp in the transverse colon; also removed with snare polypectomy. I then pushed all the way to about 150 cm and pushed into the cecum, took a picture of appendiceal orifice and noted the ileocecal valve. She had a very twisty colon and it took longer to finally get to the end. Then slowly withdrew the scope insufflating to look circumferentially at the rangel starting in the cecum, up the ascending colon to the hepatic flexure, then down the transverse colon to the splenic flexure, into the descending colon and down into the sigmoid and finally into the rectal vault and retroflexed the scope. Took a picture of the internal hemorrhoids. I did not see any ulcers or inflammation to point to a cause for her diarrhea and nothing to indicate why she is anemic. The patient tolerated the procedure. She was recovered in endoscopy suite. Recommended for repeat colonoscopy in 5 years. Anesthesia Type IV sedation by T[employer] SERVICER Estimated Blood Loss Estimated blood loss (mL): scant Specimens/Packing Specimens Removed desc colon polyp transverse colon polyp VERONICA LIAO DO Jul 01, 2023 10:49
[2023-07-01 10:50] VITALS: BP 133/68
[2023-07-01] MEDS ORDERED: HEParin (CENTRAL IV FLUSH) 500 UNIT/5 ML SYR ONE (11:07)
[2023-07-01 11:35] VITALS: BP 143/66
--- NOTE | 2023-07-01 14:50 | Anesthesia-General Post-Op ---
MAC Patient Condition Mental Status/LOC: Same as Preop Cardiovascular: Satisfactory Nausea/Vomiting: Absent Respiratory: Satisfactory Pain: Controlled Complications: Absent Post Op Complications Complications None Follow Up Care/Instructions Patient Instructions None needed. Anesthesiology Discharge Order Discharge Order Patient is doing well, no complaints, stable vital signs, no apparent adverse anesthesia problems. No complications reported per nursing. NOREEN PAN CRNA Jul 01, 2023 14:50
== END 2023-07-01 11:35 | disposition home or self-care (01) ==
LOC: ENDO 08:55
PROVIDERS: ATTEND Surgery
DX: D12.3 Benign neoplasm of transverse colon (principal); K63.5 Polyp of colon; R19.4 Change in bowel habit; R19.7 Diarrhea, unspecified; D64.9 Anemia, unspecified; K64.8 Other hemorrhoids

== ENCOUNTER 2023-08-12 10:51 | Outpatient (CLI) | payer MEDICARE ==
[~2023-08-12 10:51] MED LIST changes: -HEParin (CENTRAL IV FLUSH) 500 UNIT/5 ML SYR IV PRN
[2023-08-12 11:36] VITALS: BP 113/66
[2023-08-12 11:41] LABS: HEMATOCRIT 33 % (35-52); HEMOGLOBIN 10.4 g/dL (11.5-16.0); MEAN CORPUSCULAR HEMOGLOBIN 28 pg (25-34); MEAN CORPUSCULAR HGB CONC 31 g/dL (32-36); MEAN CORPUSCULAR VOLUME 90 fL (80-99); MEAN PLATELET VOLUME 9.4 fL (9.0-12.2); PLATELET COUNT 223 10^3/uL (130-400); WHITE BLOOD COUNT 5.7 10^3/uL (4.3-11.0)
[2023-08-12 11:49] LABS: POTASSIUM 4.4 MMOL/L (3.6-5.0)
[2023-08-12 11:50] LABS: CALCIUM 7.5 MG/DL (8.5-10.1)
[2023-08-12 11:55] LABS: CREATININE SERUM 1.69 MG/DL (0.60-1.30)
== END 2023-08-12 11:36 | disposition home or self-care (01) ==
LOC: SDC 10:51
PROVIDERS: ATTEND Physician Assistant
DX: D64.9 Anemia, unspecified (principal); I25.10 Atherosclerotic heart disease of native coronary artery without angina pectoris; I10 Essential (primary) hypertension; E78.2 Mixed hyperlipidemia; I87.2 Venous insufficiency (chronic) (peripheral); I65.23 Occlusion and stenosis of bilateral carotid arteries; K52.9 Noninfective gastroenteritis and colitis, unspecified
CPT/HCPCS: 36415; 36591; 80048; 80061; 84443; 85027

== ENCOUNTER → 2023-08-12 | Outpatient (CLI) | payer MEDICARE ==
[~2023-08-12] MED LIST changes: +HEParin (CENTRAL IV FLUSH) 500 UNIT/5 ML SYR IV PRN
== END ==
LOC: SDC 10:49
PROVIDERS: ATTEND Pediatrics
DX: Z95.828 Presence of other vascular implants and grafts (principal)

== ENCOUNTER 2023-09-19 12:09 | Outpatient (CLI) | payer MEDICARE ==
[~2023-09-19 12:09] MED LIST changes: -GLIP5TAB13 PO; +GLIP5TAB23 PO
[2023-09-19] MEDS ORDERED: HEParin (CENTRAL IV FLUSH) 500 UNIT/5 ML SYR ONE (12:43)
[2023-09-19] MEDS ORDERED: HEParin (CENTRAL IV FLUSH) 500 UNIT/5 ML SYR IV ONE (12:45)
[2023-09-19 13:00] VITALS: BP 151/76
== END 2023-09-19 13:00 | disposition home or self-care (01) ==
LOC: SDC 12:09
PROVIDERS: ATTEND Pediatrics
DX: Z95.828 Presence of other vascular implants and grafts (principal)
CPT/HCPCS: 96523

== ENCOUNTER → 2023-09-26 | Outpatient (CLI) | payer MEDICARE ==
[~2023-09-26] MED LIST changes: -TOPI-241 PO; +TOPI-83 PO
--- NOTE | 2023-09-26 11:51 | Diagnostic Imaging Report ---
PROCEDURE: MRI left joint lower extremity without contrast. TECHNIQUE: Multiplanar, multisequence non contrast-enhanced MRI of the left lower extremity was accomplished. INDICATION: Severe pain in the left ankle. COMPARISON: Radiographs from 01/02/2021 FINDINGS: There is moderate to marked bone marrow edema throughout the calcaneus. There are irregular linear hypointensities in the posterior calcaneus consistent with nondisplaced fractures extending to the posterior tuberosity. No other fractures are seen about the ankle or hindfoot. The anterior and posterior syndesmotic ligaments are intact. The anterior and posterior talofibular ligaments are intact. The calcaneofibular ligament appears intact. The fibers of the deltoid ligament are intact. The plantar fascia is not thickened. The sinus tarsi demonstrates normal fat signal. The Achilles tendon is intact. The tendon does insert on the fracture site. There is a mild retrocalcaneal bursitis. There is mild peroneal tenosynovitis with a longitudinal split tear of the peroneus brevis tendon at the inframalleolar and retromalleolar components. The flexor tendons are intact. The extensor tendons are intact. There is generalized intramuscular edema and atrophy and generalized subcutaneous edema about the left ankle. IMPRESSION: 1. Nondisplaced fractures of the posterior left calcaneus. 2. Mild retrocalcaneal bursitis. 3. Mild peroneal tenosynovitis with split tear of the peroneus brevis tendon. 4. Generalized superficial and deep soft tissue edema about the left ankle and hindfoot. Dictated by: Dictated on workstation # [id number]
== END ==
LOC: RAD 10:57
PROVIDERS: ATTEND Podiatrist Foot & Ankle Surgery
DX: S92.002A Unspecified fracture of left calcaneus, initial encounter for closed fracture (principal); M65.872 Other synovitis and tenosynovitis, left ankle and foot; M77.52 Other enthesopathy of left foot and ankle; X58.XXXA Exposure to other specified factors, initial encounter
CPT/HCPCS: 73721